=== PATIENT | male | born 1970 | race African-American/Black ===

== ENCOUNTER 2017-11-28 04:56 | Inpatient (IN) | payer MEDICARE, OTHER ==
[~2017-11-28] VITALS: Ht 182.9 cm; Wt 77.9 kg
[2017-11-28] VITALS (21 sets, daily range): BP systolic 88–109; BP diastolic 51–59; PULSE 71–79; RESP 16–22; TEMP 98.5–101.2; O2SAT 10–100
[~2017-11-28 04:56] MED LIST: Z.0.NO CURRENT MEDS
--- NOTE | 2017-11-28 05:13 | PD ---
HPI Chief Complaint: Respiratory Distress Time Seen by Provider: 05:00 Travel History International Travel<30 days: No Contact w/Intl Traveler<30days: No Traveled to known affect area: No History of Present Illness HPI The patient is a 47 year old male who presents to the [facility] [address] emergency department with a history of being noted by his halfway to be unresponsive prior to ambulance services arrival. The patient was last checked on 30 minutes prior to this and was in his normal state of health with a GCS reportedly of 15. The patient was noted to have a GCS of 3 upon ambulance services arrival with O2 saturations of 79%. The patient had pink frothy sputum noted. The patient was prepared for intubation and was given etomidate and Versed for sedation for intubation. An endotracheal tube size 8 was placed prior to arrival. The patient's airway was suctioned. The patient had copious amounts of pink frothy sputum and his nose and mouth, posterior oropharynx noted during the intubation. The patient according to ambulance services is being treated for MRSA, they are unsure of the location of the MRSA. The details regarding this patient's history are vague as the halfway staff seem to not be familiar with the patient. The patient's history will be obtained from reviewing the patient's electronic medical record and the patient' s halfway record. 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 Social History Alcohol Use: No Tobacco Use: No Substance Use: No Allergies-Medications (Allergen,Severity, Reaction): Coded Allergies: No Known Allergies (Verified Allergy, Severe, 11/03/06) Reported Meds & Prescriptions Reported Meds & Active Scripts Active Reported Zofran (Ondansetron HCl) 4 Mg Tab 4 Mg G-TUBE Q6HR PRN Zantac (Ranitidine HCl) 150 Mg Tab 75 Mg G-TUBE DAILY Vitamin D-1000 (Cholecalciferol) 1,000 Unit Tab 5,000 Units G-TUBE DAILY Vancomycin Inj (Vancomycin HCl) 1 Gram Inj 1,250 Mg IV DAILY Tylenol (Acetaminophen) 325 Mg Tab 650 Mg PO Q6H PRN Phenergan Supp (Promethazine HCl) 25 Mg Supp 25 Mg RECTAL Q4H PRN Nitrostat SL (Nitroglycerin) 0.4 Mg Subl 0.4 Mg SL DIRECTED PRN 1 tablet under the tongue as needed for chest pain. Repeat every 5 minutes for a total of 3 DOSES or call 911 if NO relief. Tramadol (Tramadol HCl) 50 Mg Tab 50 Mg G-TUBE BID PRN Sodium Bicarbonate 325 Mg Tab 325 Mg PO BIDPC Novolin R Inj (Insulin Human Regular) 1,000 Unit/10 Ml Vial 0 SQ DIRECTED Sliding Scale As Directed. Nephro-Susy (B-Complex W/ C & Folic Acid) 1 Tab 1 Tab PO DAILY Melatonin 5 Mg Tab 3 Mg PO HS Lipitor (Atorvastatin Calcium) 20 Mg Tab 20 Mg PO HS Lantus Inj (Insulin Glargine) 1,000 Unit/10 Ml Vial 10 Units SQ HS Duoneb (Ipratropium-Albuterol Neb) 0.5-2.5 Mg/3 Ml Neb 1 Nebule INH Q4HR NEB [gent. sulfate 1%] 1 Applic TOPICAL Q8HR [diff-stat capsule] 1 Cap G-TUBE BID Escitalopram (Escitalopram Oxalate) 10 Mg Tab 15 Mg PO DAILY Coreg (Carvedilol) 25 Mg Tab 25 Mg PO BID Cipro (Ciprofloxacin HCl) 250 Mg Tab 250 Mg PO BID Baclofen 10 Mg Tab 10 Mg PO DAILY Augmentin (Amoxicillin-Clavulanate) 875-125 Mg Tab 1 Tab PO BID No Current Meds (Miscellaneous Medication) Misc Review of Systems ROS Limitations: Intubated Respiratory: Positive: Shortness of Breath Neurologic: Positive: Change in Mentation Physical Exam Narrative General: The patient is a well-developed well-nourished male, unresponsive on arrival, intubated with an endotracheal tube size 8. Head and Neck exam: Head is normocephalic atraumatic. Eyes: Extraocular motion testing is unable to be accomplished in this patient who arrives with a decreased level of consciousness. Pupils are equal round and reactive to light. Nose: Midline septum with pink mucous membranes. The patient has pink frothy sputum coming out of his nose. Mouth: Dentition unremarkable. Moist mucus membranes. Posterior oropharynx is not able to be fully visualized as he has an 8 size endotracheal tube in place. Neck: No palpable lymphadenopathy. No nuchal rigidity. No thyromegaly. Cardiovascular: Regular rate and rhythm without murmurs, gallops, or rubs. No pulse deficit to the extremities on simultaneous auscultation and palpation of the radial artery. Lungs: Crackles audible in bilateral lower lung ruiz, no wheezes or rhonchi audible. The patient is being assisted with his breathing by bag valve to endotracheal tube Abdomen: Distended abdomen, no point tenderness elicited on palpation. Normal active bowel sounds are audible. The abdominal distention may be related to prior assistance with breathing prior to intubation. No guarding, rebound, or rigidity. Extremities: No clubbing, cyanosis, or edema. 2+ pulses in all 4 extremities. The patient has bandages in place on bilateral feet. These were removed and the patient is noted along the skin overlying the distal fifth metatarsal of both feet to have areas of ulceration. No active drainage noted per Neurologic Exam: The patient arrives with a GCS of 3. The patient initially has no spontaneous motor activity. The patient does not open his eyes to painful stimulation, command, or wheeze. Sensory testing is unable to be checked. The patient is noted to have contractures of the left upper and left lower extremity from his prior stroke. Skin Exam: No rash noted. Intact skin that is warm and dry. Data Data Last Documented VS Vital Signs Date Time Temp Pulse Resp B/P (MAP) Pulse Ox O2 Delivery O2 Flow Rate FiO2 11/28/17 05:29 74 16 109/56 (73) 100 Ventilator 50 11/28/17 04:57 98.5 Orders Orders Oswaldo-Gastric Tube Insert/Mon (11/28/17 05:01) Urinary Catheter Insert/Apply (11/28/17 05:01) Complete Blood Count With Diff (11/28/17 05:01) Comprehensive Metabolic Panel (11/28/17 05:01) B-Type Natriuretic Peptide (11/28/17 05:01) Act Partial Throm Time (Ptt) (11/28/17 05:01) Prothrombin Time / Inr (Pt) (11/28/17 05:01) Magnesium (Mg) (11/28/17 05:01) Ckmb (Isoenzyme) Profile (11/28/17 05:01) Troponin I (11/28/17 05:01) Arterial Blood Gas (Abg) (11/28/17 05:01) Urinalysis - C+S If Indicated (11/28/17 05:01) Blood Culture (11/28/17 05:01) Iv Access Insert/Monitor (11/28/17 05:01) Electrocardiogram (11/28/17 05:01) Ecg Monitoring (11/28/17 05:01) Oximetry (11/28/17 05:01) Oxygen Administration (11/28/17 05:01) Chest, Single Ap (11/28/17 05:01) Sodium Chloride 0.9% Flush (Ns Flush) (11/28/17 05:15) Furosemide Inj (Lasix Inj) (11/28/17 05:15) Lactic Acid Sepsis Protocol (11/28/17 05:01) Norepinephrine Inj (Levophed Inj) (11/28/17 05:30) Terbutaline Inj (Brethine Inj) (11/28/17 05:30) Cefepime Inj (Maxipime Inj) (11/28/17 05:23) Azithromycin Inj (Zithromax Inj) (11/28/17 05:23) Tobramycin Inj (Nebcin Inj) (11/28/17 05:23) Admit Order (Ed Use Only) (11/28/17 05:35) Red Blood Cells (Rbc) (11/28/17 05:35) Blood Product Administration (11/28/17 05:35) Sodium Chlor 0.9% 250 Ml Inj (Ns 250 Ml (11/28/17 05:45) CKMB (11/28/17 05:10) CKMB% (11/28/17 05:10) Labs Laboratory Tests Test 11/28/17 05:10 11/28/17 05:30 White Blood Count 6.3 TH/MM3 Red Blood Count 1.95 MIL/MM3 Hemoglobin 5.9 GM/DL Hematocrit 17.6 % Mean Corpuscular Volume 90.1 FL Mean Corpuscular Hemoglobin 30.3 PG Mean Corpuscular Hemoglobin Concent 33.6 % Red Cell Distribution Width 13.5 % Platelet Count 160 TH/MM3 Mean Platelet Volume 8.4 FL Neutrophils (%) (Auto) 80.2 % Lymphocytes (%) (Auto) 12.2 % Monocytes (%) (Auto) 7.3 % Eosinophils (%) (Auto) 0.1 % Basophils (%) (Auto) 0.2 % Neutrophils # (Auto) 5.1 TH/MM3 Lymphocytes # (Auto) 0.8 TH/MM3 Monocytes # (Auto) 0.5 TH/MM3 Eosinophils # (Auto) 0.0 TH/MM3 Basophils # (Auto) 0.0 TH/MM3 CBC Comment DIFF FINAL Differential Comment Prothrombin Time 13.4 SEC Prothromb Time International Ratio 1.3 RATIO Activated Partial Thromboplast Time 32.7 SEC Urine Color YELLOW Urine Turbidity HAZY Urine pH 5.0 Urine Specific Reynolds 1.016 Urine Protein TRACE mg/dL Urine Glucose (UA) NEG mg/dL Urine Ketones NEG mg/dL Urine Occult Blood NEG Urine Nitrite NEG Urine Bilirubin NEG Urine Urobilinogen 2.0 MG/DL Urine Leukocyte Esterase NEG Urine RBC 5 /hpf Urine WBC 3 /hpf Urine Renal Epithelial Cells <1 /hpf Urine Bacteria RARE /hpf Urine Hyaline Casts 17 /lpf Urine Granular Casts 2 /lpf Microscopic Urinalysis Comment CULT NOT INDICATED Blood Urea Nitrogen 83 MG/DL Creatinine 2.56 MG/DL Random Glucose 200 MG/DL Total Protein 7.5 GM/DL Albumin 2.6 GM/DL Calcium Level 7.7 MG/DL Magnesium Level 2.2 MG/DL Alkaline Phosphatase 93 U/L Aspartate Amino Transf (AST/SGOT) 50 U/L Alanine Aminotransferase (ALT/SGPT) 34 U/L Total Bilirubin 0.4 MG/DL Sodium Level 133 MEQ/L Potassium Level 5.0 MEQ/L Chloride Level 98 MEQ/L Carbon Dioxide Level 22.6 MEQ/L Anion Gap 12 MEQ/L Estimat Glomerular Filtration Rate 33 ML/MIN Lactic Acid Level 1.3 mmol/L Total Creatine Kinase 515 U/L Creatine Kinase MB 3.9 NG/ML Creatine Kinase MB % 0.8 % Troponin I 0.06 NG/ML B-Type Natriuretic Peptide 1390 PG/ML Blood Gas Puncture Site RT RADIAL Blood Gas Patient Temperature 98.6 Blood Gas HCO3 23 mmol/L Blood Gas Base Excess -1.1 mmol/L Blood Gas Oxygen Saturation 98 % Arterial Blood pH 7.41 Arterial Blood Partial Pressure CO2 37 mmHg Arterial Blood Partial Pressure O2 191 mmHG Arterial Blood Oxygen Content 8.4 Vol % Arterial Blood Carboxyhemoglobin 1.5 % Arterial Blood Methemoglobin 0.0 % Blood Gas Hemoglobin 5.8 G/DL Oxygen Delivery Device VENTILATOR Blood Gas Ventilator Setting Blood Gas Inspired Oxygen 70 % MDM Medical Decision Making Medical Screen Exam Complete: Yes Emergency Medical Condition: Yes Medical Record Reviewed: Yes Differential Diagnosis New onset congestive heart failure, versus MRSA pneumonia, versus healthcare acquired pneumonia, versus acute coronary syndrome, versus sepsis Narrative Course During the course of the patient's emergency department visit, the patient was placed on a registered nurse cardiac with oximetry and frequent blood pressure monitoring. The patient had IV access obtained and blood work sent for analysis. The patient had respiratory therapy available at the bedside who placed the patient on a ventilator. The patient will have an OG tube placed to gravity to decompress his abdomen. The patient will have a Dudley catheter placed to gravity. The patient's electronic medical record will be reviewed. From reviewing the halfway records, a chest x-ray reading that was done yesterday is available from his rehab facility and reveals findings suspicious for bibasilar pneumonia, cardiomegaly with bilateral small effusions reported at that time. The patient was started on Augmentin 875 mg p.o. twice daily. The patient had an EKG done on arrival that shows a sinus rhythm with an occasional supraventricular premature complex, heart rate of 76, QRS duration 79 ms, QTC [address] segment elevation, T waves are inverted in V1, V2, V3, V6. The patient had an ABG done shortly after arrival that shows a pH of 7.41, PCO2 36.7, PO2 191 with a bicarbonate 22.9 on assist control, tidal volume 550, respiratory rate 16, PEEP of 5, 70% FiO2. The patient's FiO2 was weaned down to 50%. The patient was initially provided Lasix 40 mg IV. Initially it was written for Levophed to be started to support the blood pressure as there was a concern about further fluid overload with IV fluid resuscitation, however the patient's blood pressure improved on its own to a systolic in the 1 teens. Due to the concern of a severe healthcare acquired pneumonia based on his recent chest x- ray and recently being started on Augmentin on November 26, the patient was started on broad-spectrum antibiotic coverage. The patient's laboratory and radiologic studies were reviewed and remarkable for a white count of 6.3, hemoglobin 5.9 which was compared to prior blood work at this facility, and was last 7.4 on August 21, 2017. The patient was typed and crossmatched for 2 units of packed red blood cells with potentially 1 unit of packed red blood cells being started in the emergency department. Chemistry shows a sodium of 133, BUN 83, creatinine 2.56 with a prior history of renal insufficiency with his last BUN 52, creatinine 2.14, glucose 200, AST 50, CPK 515 with an MB percent of 0.8, troponin I is slightly elevated at 0.06, BNP is 1390, lactic acid 1.3. PT 13.4, INR 1.3, PTT 32.7. Urinalysis is unremarkable. A CT scan of the brain shows no acute hemorrhage or mass-effect, large area of encephalomalacia involving the right frontal and parietal lobe, chronic sinusitis. The chest x-ray reveals an endotracheal tube in [place] an orogastric tube that is in place, mildly rotated exam with bilateral hazy perihilar and bibasilar opacities which may represent pulmonary edema, mild cardiomegaly. The patient's results were discussed with the patient, including the plan of care. I explained that further testing and/ or monitoring is indicated based on the patient's history, examination, and/ or laboratory findings. Therefore, I recommended admission for additional evaluation. The patient expressed understanding and was agreeable with this plan. The patient was admitted to the hospital in critical condition and sent to a bed under the care of the manager training service. Critical Care Narrative Aggregate critical care time was 38 minutes. Time to perform other separately billable procedures was not included in the critical care time. My time did not include minutes spent treating any other patients simultaneously or on activities that did not directly contribute to the patient's treatment. The services I provided to this patient were to treat and/or prevent clinically significant deterioration that could result in: Hypoxic brain injury, versus cardiovascular collapse I provided critical care services requiring my management, as noted below: Chart data review, documentation time, medication orders and management, vital sign assessments/reviewing monitor data, ordering and reviewing lab tests, ordering and interpreting/reviewing x-rays and diagnostic studies, care of the patient and discussion of the patient with the admitting physicians. Physician Communication Physician Communication The patient's case including history, pertinent physical examination findings, and laboratory studies were discussed with Dr. Huerta, Dr. Eagle. It was agreed that the patient would be admitted to the manager training service. Diagnosis Primary Impression: Respiratory failure Qualified Codes: J96.01 - Acute respiratory failure with hypoxia Additional Impressions: Pulmonary edema Qualified Codes: J81.0 - Acute pulmonary edema Renal insufficiency Elevated troponin Admitting Information Admitting Physician Requests: Admit Marixa Ayala MD November 28, 2017 05:13
[2017-11-28] MEDS ORDERED: FUROSEMIDE 40 MG/4 ML VIAL IVP ONE (05:15)
[2017-11-28] MEDS ORDERED: SODIUM CHLORIDE 0.9% FLUSH 10 ML FLUSH IVF PRN (05:15)
[2017-11-28] MEDS ORDERED: LANTUS2P SQ (05:21)
[2017-11-28] MEDS ORDERED: IPRASOL INH (05:21)
[2017-11-28] MEDS ORDERED: SODI325T PO (05:21)
[2017-11-28] MEDS ORDERED: ZANT150T2 G-TUBE (05:21)
[2017-11-28] MEDS ORDERED: MELA5 PO (05:21)
[2017-11-28] MEDS ORDERED: ESCI10TA PO (05:21)
[2017-11-28] MEDS ORDERED: NOVORP2 SQ (05:21)
[2017-11-28] MEDS ORDERED: ZOFR4TAB G-TUBE (05:21)
[2017-11-28] MEDS ORDERED: LIPI20TA PO (05:21)
[2017-11-28] MEDS ORDERED: TRAM50TA G-TUBE (05:21)
[2017-11-28] MEDS ORDERED: CIPR250T52 PO (05:21)
[2017-11-28] MEDS ORDERED: NEPHTAB3 PO (05:21)
[2017-11-28] MEDS ORDERED: VITA1000 G-TUBE (05:21)
[2017-11-28] MEDS ORDERED: AUGM875T3 PO (05:21)
[2017-11-28] MEDS ORDERED: TYLE325T PO (05:21)
[2017-11-28] MEDS ORDERED: PROM1SUP7 RECTAL (05:21)
[2017-11-28] MEDS ORDERED: [UNRECOGNIZED DRUG - OTHER] TOPICAL (05:21)
[2017-11-28] MEDS ORDERED: [UNRECOGNIZED DRUG - OTHER] G-TUBE (05:21)
[2017-11-28] MEDS ORDERED: NITR0.4S SL (05:21)
[2017-11-28] MEDS ORDERED: VANC1000P IV (05:21)
[2017-11-28] MEDS ORDERED: CORE25TA PO (05:21)
[2017-11-28] MEDS ORDERED: BACL10TA PO (05:21)
[2017-11-28] MEDS: TOBRAMYCIN IV STA ×2 (05:23→05:46)
[2017-11-28] MEDS ORDERED: AZITHROMYCIN INJ 500 MG in SODIUM CHLOR 0.9% 250 ML INJ 250 ML IV STA (05:23)
[2017-11-28] MEDS ORDERED: CEFEPIME INJ 2,000 MG in SODIUM CHLORIDE 0.9% INJ 100 ML IV STA (05:23)
[2017-11-28] MEDS: SODIUM CHLORIDE 0.9% IV STA ×2 (05:23→05:46)
[2017-11-28 05:28] LABS: AUTOMATED NEUTROPHIL # 5.1 TH/MM3 (1.8-7.7); BASOPHIL % 0.2 % (0.0-2.0); EOSINOPHIL % 0.1 % (0.0-4.0); LYMPH % 12.2 % (9.0-44.0); LYMPHOCYTE # 0.8 TH/MM3 (1.0-4.8); MEAN CELL VOLUME 90.1 FL (80.0-100.0); MEAN CORPUSCULAR HEMOGLOBIN 30.3 PG (27.0-34.0); MEAN CORPUSCULAR HGB CONC 33.6 % (32.0-36.0); MEAN PLATELET VOLUME 8.4 FL (7.0-11.0); MONO % 7.3 % (0.0-8.0); MONOCYTE # 0.5 TH/MM3 (0-0.9); NEUT % 80.2 % (16.0-70.0); PLATELET COUNT 160 TH/MM3 (150-450); RED BLOOD COUNT 1.95 MIL/MM3 (4.50-5.90); RED CELL DISTRIBUTION WIDTH 13.5 % (11.6-17.2); WHITE BLOOD COUNT 6.3 TH/MM3 (4.0-11.0)
[2017-11-28] MEDS ORDERED: TERBUTALINE INJ 1 MG/ML AMP SQ PRN (05:30)
[2017-11-28] MEDS ORDERED: NOREPINEPHRINE INJ 4 MG in SODIUM CHLOR 0.9% 250 ML INJ 246 ML IV PRN (05:30)
[2017-11-28 05:32] LABS: HEMATOCRIT 17.6 % (39.0-51.0); HEMOGLOBIN 5.9 GM/DL (13.0-17.0)
[2017-11-28 05:35] LABS: BACTERIA, URINE RARE /hpf; BILIRUBIN, URINE NEG (NEG); BLOOD, URINE NEG (NEG); GLUCOSE,URINE NEG (NEG); HYALINE CAST, URINE 17 /lpf (RARE); KETONE, URINE NEG (NEG); NITRITE,URINE NEG (NEG); RENAL EPITHELIAL CELLS <1 /hpf; URINE COLOR YELLOW (YELLW/STRAW); URINE LEUKOCYTE ESTERASE NEG (NEG)
[2017-11-28] MEDS ORDERED: SODIUM CHLOR 0.9% 1000 ML INJ 1,000 ML IV SCH (05:39)
[2017-11-28 05:43] LABS: INTERNATIONAL NORMALIZED RATIO 1.3 RATIO; PROTHROMBIN TIME - PATIENT 13.4 SEC (9.8-11.6)
[2017-11-28] MEDS ORDERED: BISACODYL 10 MG SUPP RECTAL PRN (05:45)
[2017-11-28] MEDS ORDERED: SODIUM CHLOR 0.9% 250 ML INJ 250 ML IV ONE (05:45)
[2017-11-28] MEDS ORDERED: CHLORHEXIDINE GLUCONATE 2 % 1 PACK (2 CLOTHS) TOP PRN (05:45)
[2017-11-28] MEDS ORDERED: NURSING INFORMATION XX SCH (05:45)
[2017-11-28] MEDS ORDERED: LACTULOSE SYRUP 20 GM/30 ML CUP PO PRN (05:45)
[2017-11-28] MEDS ORDERED: SODIUM CHLORIDE 0.9% FLUSH 10 ML FLUSH IV FLUSH PRN (05:45)
[2017-11-28] MEDS ORDERED: MAGNESIUM HYDROXIDE SUSP 30 ML CUP PO PRN (05:45)
[2017-11-28] MEDS ORDERED: SENNOSIDES 8.6 MG TAB PO PRN (05:45)
[2017-11-28 05:48] LABS: ALBUMIN 2.6 GM/DL (3.4-5.0); AST (GOT) 50 U/L (15-37); BICARBONATE 22.6 MEQ/L (21.0-32.0); BLOOD UREA NITROGEN 83 MG/DL (7-18); CALCIUM 7.7 MG/DL (8.5-10.1); CHLORIDE 98 MEQ/L (98-107); CREATININE 2.56 MG/DL (0.60-1.30); GLOMERULAR FILTRATION RATE 33 ML/MIN (>89); GLUCOSE,RANDOM 200 MG/DL (74-106); MAGNESIUM 2.2 MG/DL (1.5-2.5); SODIUM (NA) 133 MEQ/L (136-145)
[2017-11-28 05:49] LABS: ALT (GPT) 34 U/L (12-78)
[2017-11-28 05:53] LABS: ALKALINE PHOSPHATASE 93 U/L (45-117); TOTAL BILIRUBIN ADULT 0.4 MG/DL (0.2-1.0); TOTAL PROTEIN 7.5 GM/DL (6.4-8.2); TROPONIN I 0.06 NG/ML (0.02-0.05)
--- NOTE | 2017-11-28 06:01 | RADRPT ---
EXAM DATE: 11/28/2017 5:36 AM EDT AGE/SEX: 47 years / Male INDICATIONS: Post intubation, short of breath. CLINICAL DATA: This is the patient's initial encounter. Patient reports that signs and symptoms have been present for 1 day and indicates a pain score of Nonresponsive. MEDICAL/SURGICAL HISTORY: Non-responsive. CABG. COMPARISON: No prior [facility] exams available for comparison. FINDINGS: A single AP semierect view of the chest was obtained. The patient is mildly rotated to the left. The patient is status post median sternotomy and the upper sternal wire is broken. An endotracheal tube i s present with the tip approximately 2 cm above the luz maria. A nasogastric tube is seen coursing throu gh the esophagus into the stomach. There is a right-sided PICC line in place. The heart size is mildl y prominent. Hazy perihilar and bibasilar opacities are present. There are atherosclerotic changes in the aorta. The bony structures are intact. CONCLUSION: 1. Endotracheal tube and nasogastric tube in place. 2. Mildly rotated exam with bilateral hazy perihilar and bibasilar opacities which may represent pul monary edema. 3. Mild cardiomegaly. Electronically signed by: Garland Eden MD 11/28/2017 5:59 AM EDT
[2017-11-28] MEDS ORDERED: FUROSEMIDE 100 MG/10 ML VIAL IV PUSH STA (06:10)
[2017-11-28] MEDS ORDERED: DEXTROSE 50% IN WATER 50 ML VIAL(D50) IV PUSH PRN (06:15)
--- NOTE | 2017-11-28 06:24 | HHI.HP ---
HPI Service Critical Care Medicine Primary Care Physician Unknown Admission Diagnosis Respiratory Failure, Anemia Diagnosis: Chief Complaint: altered mental status Travel History International Travel<30 Days: No Contact w/Intl Traveler <30 Da: No Traveled to Known Affected Are: No History of Present Illness This is a 47-year-old male with a history of prior stroke who [facility] for acute altered mental status. Per EMS reports, he was in his normal state of health last night and then with his reevaluated by the nursing staff and was a GCS of 3 with room air sats of 79%. Of note by the ED physician, the patient had pink frothy sputum on admission to the ER. He was emergently intubated by the emergency department. He has a chest x-ray which demonstrates bilateral infiltrates consistent with pulmonary edema. He has a BNP which is severely elevated at 1300. He has a elevated creatinine suggestive of acute kidney injury with an unknown baseline. Per report he has been treated for an MRSA skin infection. He is afebrile with a normal white count. Critical care medicine is consulted to evaluate manage his acute encephalopathy, multiorgan dysfunction. No additional information is available from the patient due to his severe encephalopathy. 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 Patient does have evidence of a prior sternotomy with a healed midline chest scar and a feeding tube placement. Reported Medications Zofran (Ondansetron HCl) 4 Mg Tab 4 Mg G-TUBE Q6HR PRN Zantac (Ranitidine HCl) 150 Mg Tab 75 Mg G-TUBE DAILY Vitamin D-1000 (Cholecalciferol) 1,000 Unit Tab 5,000 Units G-TUBE DAILY Vancomycin Inj (Vancomycin HCl) 1 Gram Inj 1,250 Mg IV DAILY Tylenol (Acetaminophen) 325 Mg Tab 650 Mg PO Q6H PRN Phenergan Supp (Promethazine HCl) 25 Mg Supp 25 Mg RECTAL Q4H PRN Nitrostat SL (Nitroglycerin) 0.4 Mg Subl 0.4 Mg SL DIRECTED PRN 1 tablet under the tongue as needed for chest pain. Repeat every 5 minutes for a total of 3 DOSES or call 911 if NO relief. Tramadol (Tramadol HCl) 50 Mg Tab 50 Mg G-TUBE BID PRN Sodium Bicarbonate 325 Mg Tab 325 Mg PO BIDPC Novolin R Inj (Insulin Human Regular) 1,000 Unit/10 Ml Vial 0 SQ DIRECTED Sliding Scale As Directed. Nephro-Susy (B-Complex W/ C & Folic Acid) 1 Tab 1 Tab PO DAILY Melatonin 5 Mg Tab 3 Mg PO HS Lipitor (Atorvastatin Calcium) 20 Mg Tab 20 Mg PO HS Lantus Inj (Insulin Glargine) 1,000 Unit/10 Ml Vial 10 Units SQ HS Duoneb (Ipratropium-Albuterol Neb) 0.5-2.5 Mg/3 Ml Neb 1 Nebule INH Q4HR NEB [gent. sulfate 1%] 1 Applic TOPICAL Q8HR [diff-stat capsule] 1 Cap G-TUBE BID Escitalopram (Escitalopram Oxalate) 10 Mg Tab 15 Mg PO DAILY Coreg (Carvedilol) 25 Mg Tab 25 Mg PO BID Cipro (Ciprofloxacin HCl) 250 Mg Tab 250 Mg PO BID Baclofen 10 Mg Tab 10 Mg PO DAILY Augmentin (Amoxicillin-Clavulanate) 875-125 Mg Tab 1 Tab PO BID No Current Meds (Miscellaneous Medication) Misc Active Ordered Medications See MAR Family History Unknown and unobtainable secondary to the clinical condition of the patient Social History No EtOH, tobacco, or other drugs her prior medical records. Physical Exam Vital Signs Vital Signs Date Time Temp Pulse Resp B/P (MAP) Pulse Ox O2 Delivery O2 Flow Rate FiO2 11/28/17 05:41 100 50 11/28/17 05:29 74 16 109/56 (73) 100 Ventilator 50 11/28/17 05:26 100 Auto-Vent 50 11/28/17 05:04 75 16 100 Auto-Vent 50 11/28/17 05:02 50 11/28/17 04:57 98.5 76 16 90/57 (68) 100 11/28/17 04:56 100 70 Physical Exam GENERAL: Middle-age male who appears much older than stated age, lying in bed, intubated, unresponsive, comatose HEENT: Normocephalic. Atraumatic. Pupils equal, round, reactive, conjugate. Mucous membranes are moist NECK: Trachea is midline. Positive JVD above the level of mandible CHEST: Intubated with an 8.0 ET tube. Equal chest rise. PRVC. 40% FiO2 CARDIOVASCULAR: Normal rate, regular rhythm. Appears sinus by telemetry. ABDOMEN: Soft, nontender, nondistended. No guarding. MUSCULOSKELETAL: Pulses 2+. 2+ peripheral edema. NEUROLOGICAL: GCS 5. Weakly withdraws to pain. Positive corneals. Positive cough. Positive gag. Does not follow commands. RASS -4. Laboratory Laboratory Tests Test 11/28/17 05:10 11/28/17 05:30 White Blood Count 6.3 Red Blood Count 1.95 Hemoglobin 5.9 Hematocrit 17.6 Mean Corpuscular Volume 90.1 Mean Corpuscular Hemoglobin 30.3 Mean Corpuscular Hemoglobin Concent 33.6 Red Cell Distribution Width 13.5 Platelet Count 160 Mean Platelet Volume 8.4 Neutrophils (%) (Auto) 80.2 Lymphocytes (%) (Auto) 12.2 Monocytes (%) (Auto) 7.3 Eosinophils (%) (Auto) 0.1 Basophils (%) (Auto) 0.2 Neutrophils # (Auto) 5.1 Lymphocytes # (Auto) 0.8 Monocytes # (Auto) 0.5 Eosinophils # (Auto) 0.0 Basophils # (Auto) 0.0 CBC Comment DIFF FINAL Differential Comment Prothrombin Time 13.4 Prothromb Time International Ratio 1.3 Activated Partial Thromboplast Time 32.7 Urine Color YELLOW Urine Turbidity HAZY Urine pH 5.0 Urine Specific Commerce 1.016 Urine Protein TRACE Urine Glucose (UA) NEG Urine Ketones NEG Urine Occult Blood NEG Urine Nitrite NEG Urine Bilirubin NEG Urine Urobilinogen 2.0 Urine Leukocyte Esterase NEG Urine RBC 5 Urine WBC 3 Urine Renal Epithelial Cells <1 Urine Bacteria RARE Urine Hyaline Casts 17 Urine Granular Casts 2 Microscopic Urinalysis Comment CULT NOT INDICATED Blood Urea Nitrogen 83 Creatinine 2.56 Random Glucose 200 Total Protein 7.5 Albumin 2.6 Calcium Level 7.7 Magnesium Level 2.2 Alkaline Phosphatase 93 Aspartate Amino Transf (AST/SGOT) 50 Alanine Aminotransferase (ALT/SGPT) 34 Total Bilirubin 0.4 Sodium Level 133 Potassium Level 5.0 Chloride Level 98 Carbon Dioxide Level 22.6 Anion Gap 12 Estimat Glomerular Filtration Rate 33 Lactic Acid Level 1.3 Total Creatine Kinase 515 Creatine Kinase MB 3.9 Creatine Kinase MB % 0.8 Troponin I 0.06 B-Type Natriuretic Peptide 1390 Blood Gas Puncture Site RT RADIAL Blood Gas Patient Temperature 98.6 Blood Gas HCO3 23 Blood Gas Base Excess -1.1 Blood Gas Oxygen Saturation 98 Arterial Blood pH 7.41 Arterial Blood Partial Pressure CO2 37 Arterial Blood Partial Pressure O2 191 Arterial Blood Oxygen Content 8.4 Arterial Blood Carboxyhemoglobin 1.5 Arterial Blood Methemoglobin 0.0 Blood Gas Hemoglobin 5.8 Oxygen Delivery Device VENTILATOR Blood Gas Ventilator Setting Blood Gas Inspired Oxygen 70 Date/Time Source Procedure Growth Status 11/28/17 05:10 Blood Peripheral Aerobic Blood Culture Pending Received 11/28/17 05:10 Blood Peripheral Anaerobic Blood Culture Pending Received 11/28/17 05:10 Urine Random Urine Urine Culture Pending Received Result Diagram: 11/28/17 0510 11/28/[address] 11/28: Negative for acute disease Chest x-ray 11/28: Bilateral diffuse infiltrates consistent with pulmonary edema Septic Shock Reassessment Septic shock perfusion: reassessment completed Caprini VTE Risk Assessment Caprini VTE Risk Assessment: Mod/High Risk (score >= 2) Caprini Risk Assessment Model Point Value = 1 Point Value = 2 Point Value = 3 Point Value = 5 Age 41-60 Minor surgery BMI > 25 kg/m2 Swollen legs Varicose veins or History of unexplained or recurrent spontaneous Oral contraceptives or hormone replacement Sepsis (< 1 month) Serious lung disease, including pneumonia (< 1 month) Abnormal pulmonary function Acute myocardial infarction Congestive heart failure (< 1 month) History of inflammatory bowel disease Medical patient at bed rest Age 61-74 Arthroscopic surgery Major open surgery (> 45 min) Laparoscopic surgery (> 45 min) Malignancy Confined to bed (> 72 hours) Immobilizing plaster cast Central venous access Age >= 75 History of VTE Family history of VTE Factor V Leiden Prothrombin [id number] Lupus anticoagulant Anticardiolipin antibodies Elevated serum homocysteine Heparin-induced thrombocytopenia Other congenital or acquired thrombophilia Stroke (< 1 month) Elective arthroplasty Hip, pelvis, or leg fracture Acute spinal cord injury (< 1 month) Prophylaxis Regimen Total Risk Factor Score Risk Level Prophylaxis Regimen 0-1 Low Early ambulation 2 Moderate Order ONE of the following: *Sequential Compression Device (SCD) *Heparin 5000 units SQ BID 3-4 Higher Order ONE of the following medications: *Heparin 5000 units SQ TID *Enoxaparin/Lovenox 40 mg SQ daily (WT < 150 kg, CrCl > 30 mL/min) *Enoxaparin/Lovenox 30 mg SQ daily (WT < 150 kg, CrCl > 10-29 mL/min) *Enoxaparin/Lovenox 30 mg SQ BID (WT < 150 kg, CrCl > 30 mL/min) AND/OR *Sequential Compression Device (SCD) 5 or more Highest Order ONE of the following medications: *Heparin 5000 units SQ TID (Preferred with Epidurals) *Enoxaparin/Lovenox 40 mg SQ daily (WT < 150 kg, CrCl > 30 mL/min) *Enoxaparin/Lovenox 30 mg SQ daily (WT < 150 kg, CrCl > 10-29 mL/min) *Enoxaparin/Lovenox 30 mg SQ BID (WT < 150 kg, CrCl > 30 mL/min) AND *Sequential Compression Device (SCD) Assessment and Plan Assessment and Plan Assessment: 47-year-old male with prior stroke who presents with severe acute congestive heart failure exacerbation, unknown type, with associated acute hypoxic and hypercarbic respiratory failure, acute metabolic encephalopathy, acute kidney injury. Remains critically ill. Admit to ICU. Will check pro- calcitonin and if normal we will not cover with empiric antibiotics as this appears to be isolated to his heart failure. Will order renal ultrasound to rule out obstructive uropathy. Frequent neurochecks. EEG, head CT, MRI. Avoid long-acting sedatives. Plan by systems: Neurologic: Acute metabolic encephalopathy History of prior CVA CT head MRI EEG Frequent neurochecks Avoid long-acting sedatives Propofol for goal RASS -2 Tox screen UDS Tylenol, aspirin, EtOH levels Respiratory: Acute hypoxic and hypercarbic respiratory failure Severe acute pulmonary edema Vent bundle Head of bed elevated Nebs No spontaneous breathing trial until mental status improves Wean FiO2 for goal SPO2 greater than 90% Lasix 80 mg IV 1 Goal net -2 L in 24 hours Cardiovascular: Acute severe congestive heart failure exacerbation, unknown type Elevated troponin/type II NSTEMI secondary to demand ischemia Lasix as above 2D echo Trend troponins Would ideally like to heparinize the patient given his altered mental status and we cannot tell whether or not this is acute coronary syndrome, however patient has severe anemia with a hemoglobin of 5.9 and until we can rule out ongoing blood loss, we will hold off on heparinizing the patient. Hold off on aspirin given severe anemia Renal: Acute kidney injury superimposed on chronic renal insufficiency with an unknown baseline Likely secondary to venous congestion from CHF Place Dudley Diuresis as above Renal ultrasound Urine electrolytes Urine eosinophils -- Strict I/Os FEN/GI: Acute intravascular volume overload N.p.o. Place OG tube to suction Diuresis as above Heme/ID: Severe anemia, unknown etiology 1 unit PRBCs May be secondary to volume overload and chronic renal insufficiency Holding anticoagulation until etiology is determined Iron studies Follow-up H&H Daily CBC Send pro calcitonin No infectious etiology suspected this time. If pro-calcitonin is normal will not cover with empiric antibiotics Send cultures Endocrine: Hyperglycemia of critical illness Diabetes -- SSI Prophylaxis: GI Prophylaxis IV twice daily PPI DVT Prophylaxis -- SCDs Holding pharmacologic DVT prophylaxis in the setting of severe anemia Lines: Peripheral IVs Dudley Dispo: Admit to ICU. Very critically ill. This patient remains critically ill with one or more organ systems which are or may become a threat to life. I have spent in excess of 63 minutes discontinuously in the care and management of this patient. This time is exclusive of procedures, and includes, but is not limited to, evaluation of the patient, review of the medical record, discussions with family, consultants, nursing staff, or respiratory therapy, and documentation in the medical record. Chandana Eagle MD November 28, 2017 06:24
--- NOTE | 2017-11-28 06:59 | RADRPT ---
EXAM DATE: 11/28/2017 6:53 AM EDT AGE/SEX: 47 years / Male INDICATIONS: Altered mental status. CLINICAL DATA: This is the patient's initial encounter. Patient reports that signs and symptoms have been present for 1 day and indicates a pain score of Nonresponsive. MEDICAL/SURGICAL HISTORY: Non-responsive. Non-responsive. RADIATION DOSE: 56.35 CTDI (mGy) COMPARISON: No prior [facility] exams available for comparison. TECHNIQUE: CT of the head without contrast. Using automated exposure control and adjustment of the mA and/or kV according to patient size, radiation dose was kept as low as reasonably achievable to ob tain optimal diagnostic quality images. FINDINGS: Cerebrum: Moderate atrophic changes noted with sulcal and ventricular prominence. There are multiple calcifications in the basal ganglia and frontal lobes.. There is a focal area of encephalomalacia in volving the white matter of the right frontal and parietal lobes. No evidence of midline shift, mass lesion, hemorrhage or acute infarction. No extraaxial fluid collections are seen. Posterior Fossa: The cerebellum and brainstem are intact. The 4th ventricle is midline. The cerebe llopontine angle is unremarkable. Extracranial: The visualized portion of the orbits is intact. Skull: The calvaria is intact. No evidence of skull fracture. The right maxillary sinus is complete ly opacified. There is near complete opacification of the right ethmoidal air cells as well. Post Contrast: No abnormal areas of parenchymal or dural enhancement. No evidence of blood-brain ba rrier breakdown. CONCLUSION: 1. No acute hemorrhage or mass effect. 2. Large area of encephalomalacia involving the right frontal and parietal lobe. 3. Chronic sinusitis. Electronically signed by: Garland Eden MD 11/28/2017 6:57 AM EDT
--- NOTE | 2017-11-28 08:37 | RADRPT ---
EXAM DATE: 11/28/2017 8:28 AM EDT AGE/SEX: 47 years / Male INDICATIONS: Obstruction. CLINICAL DATA: This is the patient's initial encounter. Patient reports that signs and symptoms have been present for 1 day and indicates a pain score of Nonresponsive. MEDICAL/SURGICAL HISTORY: Hypercholesterolemia. Hypertension. Hiatal hernia. Chest pain. Bernice betes. . G-tube. COMPARISON: No prior [facility] exams available for comparison. No external comparison. MEASUREMENTS: Right Kidney:__ 9.7 x 6.1 x 4.7 cm cm Left Kidney:__ 10.2 x 6.0 x 6.3 cm cm FINDINGS: Right Kidney: Diffusely increased cortical echogenicity. No hydronephrosis, focal mass or stone. Left Kidney: Diffusely increased cortical echogenicity. No hydronephrosis, focal mass or stone. Bladder: Decompressed secondary to Dudley catheter with minimal residual distention. CONCLUSION: 1. Echogenic kidneys consistent with medical renal disease. 2. No obstructive uropathy. Electronically signed by: Alan Young MD 11/28/2017 8:35 AM EDT
[2017-11-28] MEDS: SODIUM CHLORIDE 0.9% FLUSH 10 ML FLUSH IV FLUSH SCH ×2 (08:50→21:03)
[2017-11-28] MEDS: DOCUSATE SODIUM 50 MG/SENNA 8.6 MG TAB PO SCH ×2 (08:50→21:00)
[2017-11-28] MEDS ORDERED: FAMOTIDINE 20 MG/2 ML VIAL IV PUSH SCH ×2 (09:00→21:00)
[2017-11-28] MEDS ORDERED: CHLOROTHIAZIDE SOD 500 MG VIAL IV ONE (09:00)
[2017-11-28 10:41] LABS: ACETAMINOPHEN LESS THAN 2.0 MCG/ML (10.0-30.0)
[2017-11-28] MEDS: RESP: ALBUTEROL 2.5 MG/IPRATROPIUM 0.5 MG NEB (PRN) INH (11:51)
[2017-11-28] MEDS: INSULIN NovoLIN REGULAR SUPPLEMENTAL SCALE SQ SCH ×2 (12:00→18:00)
[2017-11-28] MEDS: ACETAMINOPHEN 325 MG TAB PO PRN (12:14)
[2017-11-28] MEDS: PANTOPRAZOLE SODIUM 40 MG VIAL IV PUSH SCH (12:15)
[2017-11-28 12:20] LABS: CREATININE, RANDOM URINE 35.7 MG/DL
[2017-11-28] MEDS: ARTIFICIAL TEARS OPTH SOLN 15 ML BTL EACH EYE SCH ×3 (13:08→21:03)
[2017-11-28] MEDS ORDERED: PROPOFOL 500 MG/50 ML INJ 50 ML ONE (14:08)
--- NOTE | 2017-11-28 14:35 | EKG ---
Date Performed: 11/28/2017 Time Performed: 05:17:58 PTAGE: 47 years EKG: Baseline artifact present Sinus rhythm WITH OCCASIONAL SUPRAVENTRICULAR PREMATURE COMPLEXES Nonspecific T wave changes ABNORMAL ECG Compare d to prior electrocardiogram, Nonspecific T wave changes are now present . DOCTOR: Esteban Bland Interpretating Date/Time 11/28/2017 14:32:55
[2017-11-28] MEDS: PROPOFOL 1000 MG/100 ML IV PRN ×3 (15:25→23:54)
[2017-11-28 17:33] LABS: HEMATOCRIT 18.6 % (39.0-51.0); HEMOGLOBIN 6.4 GM/DL (13.0-17.0)
--- NOTE | 2017-11-28 18:13 | RADRPT ---
EXAM DATE: 11/28/2017 6:00 PM EDT AGE/SEX: 47 years / Male INDICATIONS: Altered mental status. CLINICAL DATA: This is the patient's subsequent encounter. Patient reports that signs and symptoms h ave been present for 2 days and indicates a pain score of Nonresponsive. MEDICAL/SURGICAL HISTORY: Diabetes mellitus type II. Hypercholesterolemia. Hypertension. str jamel CABG. feeding tube, hernia COMPARISON: [facility] [place] BRAIN W/O CONTRAST, 11/28/2017. . TECHNIQUE: Multiplanar, multisequence examination of the brain was performed without contrast. FINDINGS: Cerebrum: Again noted is a large area of encephalomalacia in the medial right frontoparietal high con vexities extending to the vertex with surrounding gliosis. Mild associated ex vacuo dilatation of the right lateral ventricle. No evidence of midline shift, mass lesion, hemorrhage or acute infarction. No extraaxial fluid collections are seen. The pituitary gland and suprasellar cistern are normal in configuration. White Matter: No significant signal abnormalities are seen in the white matter. Posterior Fossa: The cerebellum and brainstem are intact. The 4th ventricle is midline. The cerebel lopontine angle is unremarkable. The cerebellar tonsils are normal in position. Diffusion Imaging: No focal areas of restricted diffusion are seen. No evidence of acute infarction . Extracranial: The visualized portions of the orbits are unremarkable. Near-complete opacification of the right frontal and maxillary sinuses with mucoperiosteal thickening involving the sphenoid and le ft maxillary sinus. CONCLUSION: 1. Large area of encephalomalacia in the right medial frontal parietal high convexities extending to the vertex. 2. No evidence for acute abnormality. Specifically, no acute infarction, hemorrhage or hydrocephalus . 3. Paranasal sinus mucosal disease. Electronically signed by: Alan Young MD 11/28/2017 6:11 PM EDT
[2017-11-28 23:01] LABS: HEMATOCRIT 22.7 % (39.0-51.0); HEMOGLOBIN 7.6 GM/DL (13.0-17.0)
[2017-11-28 23:19] LABS: IRON (FE) 11 MCG/DL (65-175)
[2017-11-28 23:44] LABS: % SATURATION IRON PROFILE 5.3 % (20-50); FERRITIN 577 NG/ML (26-388); TOTAL IRON BINDING CAPACITY 209 MCG/DL (250-450)
[2017-11-28 23:55] LABS: FOLATE GREATER THAN 20.0 NG/ML (3.1-17.5)
[2017-11-29] VITALS (19 sets, daily range): BP systolic 97–126; BP diastolic 56–63; PULSE 63–79; RESP 14–26; TEMP 97.8–99.8; O2SAT 94–100
[2017-11-29] MEDS: PANTOPRAZOLE SODIUM 40 MG VIAL IV PUSH SCH ×2 (00:38→13:01)
[2017-11-29] MEDS: CHLORHEXIDINE GLUCONATE 2 % 1 PACK (2 CLOTHS) TOP SCH (04:00)
[2017-11-29] MEDS: PROPOFOL 1000 MG/100 ML IV PRN ×4 (04:20→23:13)
[2017-11-29 04:25] LABS: HEMATOCRIT 23.1 % (39.0-51.0); HEMOGLOBIN 7.8 GM/DL (13.0-17.0); MEAN CELL VOLUME 88.2 FL (80.0-100.0); PLATELET COUNT 155 TH/MM3 (150-450); RED BLOOD COUNT 2.62 MIL/MM3 (4.50-5.90); WHITE BLOOD COUNT 5.2 TH/MM3 (4.0-11.0)
[2017-11-29 04:27] LABS: AUTOMATED NEUTROPHIL # 3.7 TH/MM3 (1.8-7.7); BASOPHIL % 0.4 % (0.0-2.0); EOSINOPHIL % 0.2 % (0.0-4.0); HEMATOCRIT 22.7 % (39.0-51.0); HEMOGLOBIN 7.9 GM/DL (13.0-17.0); LYMPH % 18.4 % (9.0-44.0); LYMPHOCYTE # 0.9 TH/MM3 (1.0-4.8); MEAN CELL VOLUME 87.6 FL (80.0-100.0); MEAN CORPUSCULAR HEMOGLOBIN 30.5 PG (27.0-34.0); MEAN CORPUSCULAR HGB CONC 34.9 % (32.0-36.0); MONO % 8.1 % (0.0-8.0); MONOCYTE # 0.4 TH/MM3 (0-0.9); NEUT % 72.9 % (16.0-70.0); PLATELET COUNT 147 TH/MM3 (150-450); RED BLOOD COUNT 2.59 MIL/MM3 (4.50-5.90); WHITE BLOOD COUNT 5.1 TH/MM3 (4.0-11.0)
[2017-11-29 04:39] LABS: INTERNATIONAL NORMALIZED RATIO 1.3 RATIO; PROTHROMBIN TIME - PATIENT 12.7 SEC (9.8-11.6)
[2017-11-29 04:54] LABS: ALBUMIN 2.5 GM/DL (3.4-5.0); ALKALINE PHOSPHATASE 79 U/L (45-117); ALT (GPT) 38 U/L (12-78); AST (GOT) 77 U/L (15-37); BICARBONATE 22.5 MEQ/L (21.0-32.0); BLOOD UREA NITROGEN 92 MG/DL (7-18); CALCIUM 7.7 MG/DL (8.5-10.1); CHLORIDE 101 MEQ/L (98-107); CREATININE 2.53 MG/DL (0.60-1.30); GLOMERULAR FILTRATION RATE 33 ML/MIN (>89); GLUCOSE,RANDOM 74 MG/DL (74-106); MAGNESIUM 2.4 MG/DL (1.5-2.5); SODIUM (NA) 137 MEQ/L (136-145); TOTAL BILIRUBIN ADULT 0.7 MG/DL (0.2-1.0); TOTAL PROTEIN 7.5 GM/DL (6.4-8.2)
[2017-11-29] MEDS: INSULIN NovoLIN REGULAR SUPPLEMENTAL SCALE SQ SCH ×4 (05:42→17:21)
--- NOTE | 2017-11-29 08:07 | MG ---
cc: Doroteo Pérez MD EEG NUMBER: [id number] INDICATIONS: Encephalomalacia right frontal and parietal region. Dysphagia. MEDICATIONS: Norepinephrine. DESCRIPTION: The recording showed a diffuse 5-6 Hz, 60 microvolt rhythm. I do not see any focal right or left hemisphere abnormalities. No epileptiform or seizure activity is noted. Photic stimulation is performed without significant posterior driving. Evidently intubated. A right arm twitch was seen, but did not correlate with any abnormalities. IMPRESSION: Diffuse theta slowing consistent with a moderate diffuse encephalopathy, but no focal abnormality was noted. No seizure activity was seen. Doroteo Pérez MD DJM/DL , 07:57 AM , 08:06 AM
[2017-11-29] MEDS: RESP: ALBUTEROL 2.5 MG/IPRATROPIUM 0.5 MG NEB (PRN) INH (08:16)
--- NOTE | 2017-11-29 08:30 | HHI.CCPN ---
Subjective Remarks/Hospital Course This is a 47-year-old male with a history of prior stroke who presented from [facility] facility by EMS for acute altered mental status. Per EMS reports, he was in his normal state of health last night and then with his reevaluated by the nursing staff and was a GCS of 3 with room air sats of 79%. Of note by the ED physician, the patient had pink frothy sputum on admission to the ER. He was emergently intubated by the emergency department. He has a chest x-ray which demonstrates bilateral infiltrates consistent with pulmonary edema. He has a BNP which is severely elevated at 1300. He has a elevated creatinine suggestive of acute kidney injury with an unknown baseline. Per report he has been treated for an MRSA skin infection. He is afebrile with a normal white count. Critical care medicine is consulted to evaluate manage his acute encephalopathy, multiorgan dysfunction. No additional information is available from the patient due to his severe encephalopathy. SUBJ 11/29: Remains intubated sedated with propofol for vent synchrony. According to RN he did follow commands upper extremities when sedation held. Chest exam reveals bilateral coarse rhonchi, crackles. CXR pending at this time Objective Vital Signs Date Time Temp Pulse Resp B/P (MAP) Pulse Ox O2 Delivery O2 Flow Rate FiO2 11/29/17 07:59 100 40 11/29/17 06:00 66 11/29/17 04:00 98.6 16 97/58 (71) 11/28/17 05:29 Ventilator Intake and Output 11/29/17 11/29/17 11/30/17 08:00 16:00 00:00 Intake Total 228 ml Output Total 650 ml Balance -422 ml Result Diagram: 11/29/17 0340 11/29/[address] 11/28: Negative for acute disease Chest x-ray 11/28: Bilateral diffuse infiltrates consistent with pulmonary edema Objective Remarks GENERAL: Middle-age male who appears much older than stated age, lying in bed, intubated, sedated with propofol HEENT: Normocephalic. Atraumatic. Pupils equal, round, reactive, conjugate. Orotracheally intubated NECK: Trachea is midline. Positive JVD above the level of mandible CHEST: Intubated with an 8.0 ET tube. Equal chest rise. PRVC. 40% FiO2. Bilateral coarse rhonchi and crackles CARDIOVASCULAR: Normal rate, regular rhythm. Appears sinus by telemetry. ABDOMEN: Soft, nontender, nondistended. No guarding. MUSCULOSKELETAL: Pulses 2+. 2+ peripheral edema. NEUROLOGICAL: Intubated sedated with propofol. Weakly withdraws to pain. Positive corneals. Positive cough. Positive gag. (Does follow commands to RN when sedation was held) Urinary Catheter: Yes Assessment to: Continue A/P Assessment and Plan Assessment: 47-year-old male with prior stroke who presents with severe acute congestive heart failure exacerbation, unknown type, with associated acute hypoxic and hypercarbic respiratory failure, acute metabolic encephalopathy, acute kidney injury. Remains critically ill. Check pro-calcitonin and if normal we will not cover with empiric antibiotics as this appears to be isolated to his heart failure. Will order renal ultrasound to rule out obstructive uropathy. Frequent neurochecks. EEG, head CT, MRI. Avoid long- acting sedatives. Plan by systems: Neurologic: Acute metabolic encephalopathy History of prior CVA MRI-old frontoparietal encephalomalacia, no acute findings EEG-generalized slowing without seizures Frequent neurochecks Propofol for goal RASS -2, Avoid long-acting sedatives. Start daily sedation vacation Tox screen, UDS positive only for benzodiazepines Check ammonia TSH. B12 normal Respiratory: Acute hypoxic and hypercarbic respiratory failure Severe acute pulmonary edema Vent bundle, Head of bed elevated Nebs every 6 hours scheduled and as needed Start SBT if mental status improves Wean FiO2 for goal SPO2 greater than 90% Lasix 80 mg IV 1 given yesterday, start scheduled Lasix 40 every 12 with IV albumin Goal net -2 L in 24 hours Cardiovascular: Acute severe congestive heart failure exacerbation, unknown type Mildly Elevated troponin Lasix 80 mg IV 1 given 11/29, start scheduled Lasix 40 every 12 with IV albumin 2D echo pending at this time. Repeat chest x-ray Trend troponins, only trivial evaluation Patient has severe anemia with a hemoglobin of 5.9 and until we can rule out ongoing blood loss, we will hold off on heparinizing the patient. Hold off on aspirin given severe anemia Renal: Acute kidney injury superimposed on chronic renal insufficiency with an unknown baseline Likely secondary to venous congestion from CHF Continue Dudley Diuresis as above Renal ultrasound Urine electrolytes, Urine eosinophils -Strict I/Os -Nephrology consulted anticipating hemodialysis for fluid removal and possible uremia if renal function gets worse with forced diuresis FEN/GI: Acute intravascular volume overload Diuresis as above Tube feeds with Jevity, change to Nepro Heme/ID: Severe anemia, unknown etiology s/p 1 unit PRBCs Holding anticoagulation until etiology is determined Iron studies Follow-up H&H Daily CBC Pro calcitonin 1.4 intermediate risk. No infectious etiology suspected this time. F/U cultures Check stool for Hemoccult Endocrine: Hyperglycemia of critical illness Diabetes -- SSI Prophylaxis: GI Prophylaxis IV twice daily PPI DVT Prophylaxis -- SCDs Holding pharmacologic DVT prophylaxis in the setting of severe anemia Lines: Peripheral IVs Dudley Dispo: Continue ICU. Very critically ill. This patient remains critically ill with one or more organ systems which are or may become a threat to life. I have spent in excess of 33 minutes discontinuously in the care and management of this patient. This time is exclusive of procedures, and includes, but is not limited to, evaluation of the patient, review of the medical record, discussions with family, consultants, nursing staff, or respiratory therapy, and documentation in the medical record. Aj Miller MD November 29, 2017 08:30
[2017-11-29] MEDS: ARTIFICIAL TEARS OPTH SOLN 15 ML BTL EACH EYE SCH ×3 (08:40→17:20)
[2017-11-29] MEDS: ALBUMIN 25% INJ 100 ML IV SCH ×2 (08:40→21:08)
[2017-11-29] MEDS: DOCUSATE SODIUM 50 MG/SENNA 8.6 MG TAB PO SCH ×2 (08:40→21:00)
[2017-11-29] MEDS: SODIUM CHLORIDE 0.9% FLUSH 10 ML FLUSH IV FLUSH SCH ×2 (08:40→21:08)
[2017-11-29] MEDS: FUROSEMIDE 40 MG/4 ML VIAL IV PUSH SCH ×2 (08:40→17:20)
--- NOTE | 2017-11-29 09:28 | RADRPT ---
EXAM DATE: 11/29/2017 9:21 AM EDT AGE/SEX: 47 years / Male INDICATIONS: Respiratory disease CLINICAL DATA: This is the patient's initial encounter. Patient reports that signs and symptoms have been present for 1 day and indicates a pain score of Nonresponsive. MEDICAL/SURGICAL HISTORY: Diabetes mellitus type II. Hypertension. stroke CABG. feeding tube , hernia COMPARISON: [facility], CHEST SINGLE AP, 11/28/2017. . FINDINGS: Stable ETT. Interval removal of NGT. Marked interval progression of diffuse patchy airspace disease a nd more focal airspace consolidation at the lung bases bilaterally. Cardiac silhouette is enlarged. P ulmonary vascularity is indistinct. Remainder of the exam is unchanged. CONCLUSION: 1. Stable ETT. NGT has been removed. 2. Marked interval progression of diffuse patchy airspace disease and more focal consolidation at th e lung bases. This likely reflects pulmonary edema given short interval change although differential considerations include developing ARDS. Electronically signed by: Alan Young MD 11/29/2017 9:26 AM EDT
--- NOTE | 2017-11-29 14:56 | PD.CONS ---
HPI Service Nephrology Consult Requested By Dr. Miller Reason for Consult ARF/CKD Primary Care Physician Unknown History of Present Illness Patient is a 47 year old black male with history of diabetes, since childhood age 10 or 11 years old, he has CAD S/p CABG, last April had a stroke Left hemiplegia, required feeding tube placement, now with bilateral foot sores, discovered to be in altered mental status, short of breath, pink sputum coming out mouth [facility],, required intubation and now on Ventilator. He was started on Lasix 40 mg q 12. 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 Dysphagia with feeding tube placement History of psychiatric disorder Depression High cholesterol Hiatal hernia CAD Past Surgical History CABG PEG tube placement Reported Medications Reported Meds & Active Scripts Active Reported Zofran (Ondansetron HCl) 4 Mg Tab 4 Mg G-TUBE Q6HR PRN Zantac (Ranitidine HCl) 150 Mg Tab 75 Mg G-TUBE DAILY Vitamin D-1000 (Cholecalciferol) 1,000 Unit Tab 5,000 Units G-TUBE DAILY Vancomycin Inj (Vancomycin HCl) 1 Gram Inj 1,250 Mg IV DAILY Tylenol (Acetaminophen) 325 Mg Tab 650 Mg PO Q6H PRN Phenergan Supp (Promethazine HCl) 25 Mg Supp 25 Mg RECTAL Q4H PRN Nitrostat SL (Nitroglycerin) 0.4 Mg Subl 0.4 Mg SL DIRECTED PRN 1 tablet under the tongue as needed for chest pain. Repeat every 5 minutes for a total of 3 DOSES or call 911 if NO relief. Tramadol (Tramadol HCl) 50 Mg Tab 50 Mg G-TUBE BID PRN Sodium Bicarbonate 325 Mg Tab 325 Mg PO BIDPC Novolin R Inj (Insulin Human Regular) 1,000 Unit/10 Ml Vial 0 SQ DIRECTED Sliding Scale As Directed. Nephro-Susy (B-Complex W/ C & Folic Acid) 1 Tab 1 Tab PO DAILY Melatonin 5 Mg Tab 3 Mg PO HS Lipitor (Atorvastatin Calcium) 20 Mg Tab 20 Mg PO HS Lantus Inj (Insulin Glargine) 1,000 Unit/10 Ml Vial 10 Units SQ HS Duoneb (Ipratropium-Albuterol Neb) 0.5-2.5 Mg/3 Ml Neb 1 Nebule INH Q4HR NEB [gent. sulfate 1%] 1 Applic TOPICAL Q8HR [diff-stat capsule] 1 Cap G-TUBE BID Escitalopram (Escitalopram Oxalate) 10 Mg Tab 15 Mg PO DAILY Coreg (Carvedilol) 25 Mg Tab 25 Mg PO BID Cipro (Ciprofloxacin HCl) 250 Mg Tab 250 Mg PO BID Baclofen 10 Mg Tab 10 Mg PO DAILY Augmentin (Amoxicillin-Clavulanate) 875-125 Mg Tab 1 Tab PO BID No Current Meds (Miscellaneous Medication) [facility] [place] Active Ordered Medications Current Medications Medications (Trade) Dose Ordered Sig/Arthur Route Start Time Stop Time Status Last Admin (Brethine Inj) 1 mg UNSCH PRN SQ 11/28/17 05:30 (NS Flush) 2 ml UNSCH PRN IV FLUSH 11/28/17 05:45 (NS Flush) 2 ml BID IV FLUSH 11/28/17 09:00 11/29/17 08:40 (Tylenol) 650 mg Q6H PRN PO 11/28/17 05:45 11/28/17 12:14 (Tears Naturale Opth Soln) 1 drop TID EACH EYE 11/28/17 09:00 11/29/17 13:09 (Zofran Inj) 4 mg Q6H PRN IV PUSH 11/28/17 05:45 (Duoneb Neb) 1 ampule Q2HR NEB PRN INH 11/28/17 05:45 11/29/17 08:16 ([facility] [place] Nursing Information) 1 Q361D XX 11/28/17 05:45 (Chlorhexidine 2% Cloth) 3 pack Taper DAILY@04 TOP 11/29/17 04:00 11/25/18 03:59 11/29/17 04:00 (Chlorhexidine 2% Cloth) 3 pack UNSCH PRN TOP 11/28/17 05:45 (Jessie-Colace) 1 tab BID PO 11/28/17 09:00 (Milk Of Magnesia Liq) 30 ml Q12H PRN PO 11/28/17 05:45 (Senokot) 17.2 mg Q12H PRN PO 11/28/17 05:45 (Dulcolax Supp) 10 mg DAILY PRN RECTAL 11/28/17 05:45 (Lactulose Liq) 30 ml DAILY PRN PO 11/28/17 05:45 (D50w (Vial) Inj) 25 ml UNSCH PRN IV PUSH 11/28/17 06:15 (NovoLIN R SUPPLEMENTAL SCALE) 1 Q6HR SQ 11/28/17 12:00 11/29/17 12:00 (Protonix Inj) 40 mg Q12H IV PUSH 11/28/17 12:00 11/29/17 13:01 Propofol 100 ml @ 2.7 mls/hr TITRATE PRN IV 11/28/17 14:15 11/29/17 04:20 (Duoneb Neb) 1 ampule Q6HR NEB NEB 11/29/17 10:00 (Lasix Inj) 40 mg BID@09,18 IV PUSH 11/29/17 09:00 11/29/17 08:40 Albumin Human 100 ml @ 60 mls/hr Q12H IV 11/29/17 08:30 11/29/17 08:40 Family History noncontributory Social History resident of correction Physical Exam Vital Signs Vital Signs Date Time Temp Pulse Resp B/P (MAP) Pulse Ox O2 Delivery O2 Flow Rate FiO2 11/29/17 12:37 40 11/29/17 12:00 76 11/29/17 12:00 98.7 76 26 126/57 (80) 100 11/29/17 10:20 100 40 11/29/17 10:00 72 11/29/17 08:17 99 40 11/29/17 08:00 63 11/29/17 08:00 97.8 63 16 99/62 (74) 100 11/29/17 07:59 100 40 11/29/17 06:00 66 11/29/17 04:05 99 40 11/29/17 04:00 66 11/29/17 04:00 40 11/29/17 04:00 98.6 66 16 97/58 (71) 100 11/29/17 02:00 67 11/29/17 01:03 94 40 11/29/17 00:00 40 11/29/17 00:00 98.5 69 16 101/57 (72) 100 11/29/17 00:00 69 11/28/17 22:08 99 40 11/28/17 22:00 71 11/28/17 20:00 72 11/28/17 20:00 50 11/28/17 20:00 99.3 72 16 95/56 (69) 100 11/28/17 19:22 100 40 11/28/17 18:52 99.6 74 16 88/53 100 11/28/17 18:00 73 11/28/17 18:00 100 50 11/28/17 17:00 100 40 11/28/17 16:00 50 11/28/17 16:00 75 11/28/17 16:00 99.2 75 17 91/51 (64) 100 Physical Exam GENERAL: Well-nourished, well-developed intubated patient. SKIN: Warm and dry. HEAD: Normocephalic. EYES: No scleral icterus. No injection or drainage. NECK: Supple, trachea midline. No JVD or lymphadenopathy. CARDIOVASCULAR: Regular rate and rhythm without murmurs, gallops, or rubs. RESPIRATORY: Breath sounds bilateral rhonchi GASTROINTESTINAL: Abdomen soft, non-tender, nondistended. EXTREMITIES: No cyanosis, or edema. ulceration of both feet. NEUROLOGICAL: Awake, Laboratory Laboratory Tests Test 11/28/17 16:05 11/28/17 22:26 11/29/17 03:40 11/29/17 09:49 Hemoglobin 6.4 7.6 7.8 Hematocrit 18.6 22.7 23.1 Troponin I 0.10 0.10 Iron Level 11 Total Iron Binding Capacity 209 Percent Iron Saturation 5.3 Ferritin 577 Vitamin B12 Level 1082 Folate GREATER THAN 20.0 White Blood Count 5.2 Red Blood Count 2.62 Mean Corpuscular Volume 88.2 Mean Corpuscular Hemoglobin 30.0 Mean Corpuscular Hemoglobin Concent 34.0 Red Cell Distribution Width 14.0 Platelet Count 155 Mean Platelet Volume 9.0 Neutrophils (%) (Auto) 72.9 Lymphocytes (%) (Auto) 18.4 Monocytes (%) (Auto) 8.1 Eosinophils (%) (Auto) 0.2 Basophils (%) (Auto) 0.4 Neutrophils # (Auto) 3.7 Lymphocytes # (Auto) 0.9 Monocytes # (Auto) 0.4 Eosinophils # (Auto) 0.0 Basophils # (Auto) 0.0 CBC Comment DIFF FINAL Differential Comment Prothrombin Time 12.7 Prothromb Time International Ratio 1.3 Activated Partial Thromboplast Time 33.8 Blood Urea Nitrogen 92 Creatinine 2.53 Random Glucose 74 Total Protein 7.5 Albumin 2.5 Calcium Level 7.7 Phosphorus Level 5.0 Magnesium Level 2.4 Alkaline Phosphatase 79 Aspartate Amino Transf (AST/SGOT) 77 Alanine Aminotransferase (ALT/SGPT) 38 Total Bilirubin 0.7 Sodium Level 137 Potassium Level 3.9 Chloride Level 101 Carbon Dioxide Level 22.5 Anion Gap 14 Estimat Glomerular Filtration Rate 33 Ammonia 21 Thyroid Stimulating Hormone 3rd Gen 2.630 Date/Time Source Procedure Growth Status 11/28/17 05:10 Blood Peripheral Aerobic Blood Culture - Preliminary Gram Positive Cocci Resulted 11/28/17 05:10 Blood Peripheral Anaerobic Blood Culture - Preliminary NO GROWTH IN 1 DAY Resulted 11/28/17 10:09 Sputum Endotracheal Gram Stain - Final Resulted 11/28/17 10:09 Sputum Culture - Preliminary Gram Negative Fortino Resulted 11/28/17 05:10 Urine Random Urine Urine Culture - Preliminary NO GROWTH IN 24 HOURS. Resulted Result Diagram: 11/29/17 0340 11/29/17 0340 Imaging Last Impressions Chest X-Ray 11/29/17 0000 Signed Impressions: CONCLUSION: 1. Stable ETT. NGT has been removed. 2. Marked interval progression of diffuse patchy airspace disease and more foc al consolidation at the lung bases. This likely reflects pulmonary edema given short interval change although differential considerations include developing A RDS. Renal Ultrasound 11/28/17 Signed Impressions: CONCLUSION: 1. Echogenic kidneys consistent with medical renal disease. 2. No obstructive uropathy. Head CT 11/28/17 Signed Impressions: CONCLUSION: 1. No acute hemorrhage or mass effect. 2. Large area of encephalomalacia involving the right frontal and parietal lob e. 3. Chronic sinusitis. Brain MRI 11/28/17 Signed Impressions: CONCLUSION: 1. Large area of encephalomalacia in the right medial frontal parietal high co nvexities extending to the vertex. 2. No evidence for acute abnormality. Specifically, no acute infarction, hemor rhage or hydrocephalus. 3. Paranasal sinus mucosal disease. Assessment and Plan Problem List: (1) Acute renal failure ICD Codes: N17.9 - Acute kidney failure, unspecified Plan: baseline creatinine was high back in August 2.1 He is responding to Lasix Given Tobramycin yesterday avoid nephrotoxins if possible (2) CKD (chronic kidney disease) stage 3, GFR 30-59 ml/min ICD Codes: N18.3 - Chronic kidney disease, stage 3 (moderate) Plan: long standing diabetes and this is likely causing CKD Check MELCHOR,SPEP C3 C4 (3) Diabetes ICD Codes: E11.9 - Type 2 diabetes mellitus without complications Plan: Continue to monitor (4) Pneumonia ICD Codes: J18.9 - Pneumonia, unspecified organism Plan: receive Cefepime/Azithromycin and Tobramycin (5) CHF (congestive heart failure) ICD Codes: I50.9 - Heart failure, unspecified Plan: on Felton Mcdaniel MD November 29, 2017 14:56
[2017-11-29] MEDS: RESP: ALBUTEROL 2.5 MG/IPRATROPIUM 0.5 MG NEB (SCH) NEB ×2 (15:10→22:01)
--- NOTE | 2017-11-29 16:12 | PD.WCN.NOT ---
Wound Consult Description: Wound care consult ordered by for wound management. Communicated with: [facility], Dr. Eagle Recommendation: 1. Cleanse right/left lateral diabetic ulcers with normal saline pat dry. 2. Skin prep payam wound, Right lateral ulcer apply Maxorb ll cut to fit wound base and cover with dry dressing change dressing every 3-5 days or as needed for dislodgement/exudate. 3. Apply Santyl 2mm thick to left lateral foot ulcer wound base and cover with moist to dry dressing change daily or as needed for dislodgement. 4. Please consult podiatry for possible surgical debridement. Additional Information: Patient was seen today by magnetic tape typewriter operator and Lisset STOCKTON chief nursing executive for wound management.Patient currently sedated and vented.Blue boots removed from bilateral lower extremities.Radiation Protection Engineer was able to visualized right foot with assistance of Lisset stockton student .Wounds cleansed with normal saline and pat dry.Patient has healing diabetic ulcer located on lateral met head measuring 0.5cm x0.5cm x0.2cm wound base is 100% moist pink non granular tissue with scant serous drainage noted with out odor.Periwound is calloused ~2.0cm circumferentially.Wound cleansed with normal saline pat dry left open to air till Maxorb ll available.Left lateral plantar has a diabetic ulcer measuring 3.0cm x 1.9cm x slough.Wound base is 60% adhered yellow slough 30% black necrotic tissue 10% moist white/pink non granular tissue.Wound edges are well defined jagged and sloped with wound base.Scant serosanguineous drainage noted with faint odor present.Black intact tissue noted to left planter extending towards medial plantar non blanchable.patient would benefit from podiatry consult for possible debridement.Brooklynn ARTEAGA to apply dressing when Santyl/Maxorb ll available to floor.Wounds were covered with dry gauze and blue boots reapplied.Patient was in no apparent distress upon writers departure. Lawrence Tom [facility] November 29, 2017 16:12
[2017-11-29 16:21] LABS: ALBUMIN 2.7 GM/DL (3.4-5.0); ALT (GPT) 41 U/L (12-78); AST (GOT) 94 U/L (15-37); BICARBONATE 22.8 MEQ/L (21.0-32.0); BLOOD UREA NITROGEN 87 MG/DL (7-18); CALCIUM 7.7 MG/DL (8.5-10.1); CHLORIDE 102 MEQ/L (98-107); CREATININE 2.46 MG/DL (0.60-1.30); GLOMERULAR FILTRATION RATE 34 ML/MIN (>89); GLUCOSE,RANDOM 134 MG/DL (74-106); SODIUM (NA) 137 MEQ/L (136-145)
[2017-11-29 16:23] LABS: ALKALINE PHOSPHATASE 87 U/L (45-117); TOTAL BILIRUBIN ADULT 0.6 MG/DL (0.2-1.0); TOTAL PROTEIN 7.8 GM/DL (6.4-8.2)
[2017-11-30] VITALS (36 sets, daily range): BP systolic 100–119; BP diastolic 55–74; PULSE 69–76; RESP 16–24; TEMP 98.1–100.6; O2SAT 100
[2017-11-30] MEDS: PANTOPRAZOLE SODIUM 40 MG VIAL IV PUSH SCH ×3 (00:13→22:23)
[2017-11-30] MEDS: PIPERACIL-TAZO 4.5 GM PREMIX 100 ML IV SCH ×4 (00:13→18:26)
[2017-11-30] MEDS: CHLORHEXIDINE GLUCONATE 2 % 1 PACK (2 CLOTHS) TOP SCH (03:27)
[2017-11-30] MEDS: PROPOFOL 1000 MG/100 ML IV PRN ×6 (03:28→22:24)
[2017-11-30] MEDS: RESP: ALBUTEROL 2.5 MG/IPRATROPIUM 0.5 MG NEB (SCH) NEB ×4 (04:04→20:04)
[2017-11-30] MEDS: INSULIN NovoLIN REGULAR SUPPLEMENTAL SCALE SQ SCH ×4 (05:05→18:00)
[2017-11-30 06:44] LABS: AUTOMATED NEUTROPHIL # 3.9 TH/MM3 (1.8-7.7); BASOPHIL % 0.3 % (0.0-2.0); EOSINOPHIL % 0.1 % (0.0-4.0); HEMOGLOBIN 7.1 GM/DL (13.0-17.0); LYMPH % 17.4 % (9.0-44.0); LYMPHOCYTE # 0.9 TH/MM3 (1.0-4.8); MEAN CELL VOLUME 88.3 FL (80.0-100.0); MEAN CORPUSCULAR HEMOGLOBIN 29.9 PG (27.0-34.0); MEAN CORPUSCULAR HGB CONC 33.9 % (32.0-36.0); MONO % 8.5 % (0.0-8.0); MONOCYTE # 0.5 TH/MM3 (0-0.9); NEUT % 73.7 % (16.0-70.0); PLATELET COUNT 151 TH/MM3 (150-450); RED BLOOD COUNT 2.38 MIL/MM3 (4.50-5.90); WHITE BLOOD COUNT 5.3 TH/MM3 (4.0-11.0)
--- NOTE | 2017-11-30 06:54 | RADRPT ---
EXAM DATE: 11/30/2017 6:27 AM EDT AGE/SEX: 47 years / Male INDICATIONS: Shortness of breath. CLINICAL DATA: This is the patient's subsequent encounter. Patient reports that signs and symptoms h ave been present for 2 days and indicates a pain score of Nonresponsive. MEDICAL/SURGICAL HISTORY: . Diabetes mellitus type II. Hypertension. stroke. CABG. . Feeding t ube. hernia. COMPARISON: [facility] [place], CHEST SINGLE AP, 11/29/2017. . FINDINGS: The patient is status post sternotomy. The heart size is normal. The patient is intubated with the ET tube 3.7 cm from the luz maria. There are patchy areas of increased density seen in the left perihilar region, left base, right upper lung and right lower lung. There is elevation of the left hemidiaphrag m. CONCLUSION: Patchy areas of increased density related to areas of consolidation or atelectasis. Electronically signed by: Paul Donis MD 11/30/2017 6:52 AM EDT
[2017-11-30 07:25] LABS: ALBUMIN 2.7 GM/DL (3.4-5.0); ALT (GPT) 39 U/L (12-78); AST (GOT) 97 U/L (15-37); BICARBONATE 24.1 MEQ/L (21.0-32.0); BLOOD UREA NITROGEN 83 MG/DL (7-18); CALCIUM 7.5 MG/DL (8.5-10.1); CHLORIDE 103 MEQ/L (98-107); COMPLEMENT C4 27 MG/DL (10-40); CREATININE 2.42 MG/DL (0.60-1.30); GLOMERULAR FILTRATION RATE 35 ML/MIN (>89); GLUCOSE,RANDOM 112 MG/DL (74-106); MAGNESIUM 2.6 MG/DL (1.5-2.5); PHOSPHORUS 5.3 MG/DL (2.5-4.9); SODIUM (NA) 139 MEQ/L (136-145)
[2017-11-30] MEDS: DOCUSATE SODIUM 50 MG/SENNA 8.6 MG TAB PO SCH ×2 (07:28→20:55)
[2017-11-30] MEDS: ALBUMIN 25% INJ 100 ML IV SCH ×2 (07:28→21:09)
[2017-11-30] MEDS: FUROSEMIDE 40 MG/4 ML VIAL IV PUSH SCH ×2 (07:28→18:25)
[2017-11-30 07:29] LABS: ALKALINE PHOSPHATASE 86 U/L (45-117); TOTAL BILIRUBIN ADULT 0.8 MG/DL (0.2-1.0); TOTAL PROTEIN 7.3 GM/DL (6.4-8.2)
[2017-11-30] MEDS: SODIUM CHLORIDE 0.9% FLUSH 10 ML FLUSH IV FLUSH SCH ×2 (07:29→21:10)
[2017-11-30] MEDS: ARTIFICIAL TEARS OPTH SOLN 15 ML BTL EACH EYE SCH ×3 (07:29→18:29)
--- NOTE | 2017-11-30 08:21 | HHI.CCPN ---
Subjective Remarks/Hospital Course This is a 47-year-old male with a history of prior stroke who presented from half-way facility by EMS for acute altered mental status. Per EMS reports, he was in his normal state of health last night and then with his reevaluated by the nursing staff and was a GCS of 3 with room air sats of 79%. Of note by the ED physician, the patient had pink frothy sputum on admission to the ER. He was emergently intubated by the emergency department. He has a chest x-ray which demonstrates bilateral infiltrates consistent with pulmonary edema. He has a BNP which is severely elevated at 1300. He has a elevated creatinine suggestive of acute kidney injury with an unknown baseline. Per report he has been treated for an MRSA skin infection. He is afebrile with a normal white count. Critical care medicine is consulted to evaluate manage his acute encephalopathy, multiorgan dysfunction. No additional information is available from the patient due to his severe encephalopathy. SUBJ 11/29: Remains intubated sedated with propofol for vent synchrony. According to RN he did follow commands upper extremities when sedation held. Chest exam reveals bilateral coarse rhonchi, crackles. CXR pending at this time 11/30: remains intubated. cxr with bilateral infiltrates again suggestive of volume overload. Objective Vital Signs Date Time Temp Pulse Resp B/P (MAP) Pulse Ox O2 Delivery O2 Flow Rate FiO2 11/30/17 06:00 74 11/30/17 04:05 100 40 11/30/17 04:00 99.1 16 109/60 (76) 11/28/17 05:29 Ventilator Intake and Output 11/30/17 11/30/17 11/30/17 07:59 15:59 23:59 Intake Total 613 ml Output Total 800 ml Balance -187 ml Result Diagram: 11/30/17 0600 11/30/[address] 11/28: Negative for acute disease Chest x-ray 11/28: Bilateral diffuse infiltrates consistent with pulmonary edema Objective Remarks GENERAL: Middle-age male who appears much older than stated age, lying in bed, intubated, sedated with propofol HEENT: Normocephalic. Atraumatic. Pupils equal, round, reactive, conjugate. Orotracheally intubated NECK: Trachea is midline. Positive JVD CHEST: Intubated with an 8.0 ET tube. Equal chest rise. PRVC. 40% FiO2. Bilateral coarse rhonchi and crackles CARDIOVASCULAR: Normal rate, regular rhythm. Appears sinus by telemetry. ABDOMEN: Soft, nontender, nondistended. No guarding. MUSCULOSKELETAL: Pulses 2+. 2+ peripheral edema. NEUROLOGICAL: Intubated sedated with propofol. Weakly withdraws to pain. Positive corneals. Positive cough. Positive gag. (Does follow commands to RN when sedation was held) A/P Assessment and Plan Assessment: 47-year-old male with prior stroke who presents with severe acute congestive heart failure exacerbation, unknown type, with associated acute hypoxic and hypercarbic respiratory failure, acute metabolic encephalopathy, acute kidney injury. Remains critically ill. still awaiting echo to determine ventricular function. still appears cardiac in origin and not infectious. remains afebrile with normal wbc count. remains very critically ill with minimal if any improvement over last 48h. off pathway. Plan by systems: Neurologic: Acute metabolic encephalopathy History of prior CVA MRI-old frontoparietal encephalomalacia, no acute findings EEG-generalized slowing without seizures Frequent neurochecks Propofol for goal RASS -2, Avoid long-acting sedatives. daily sedation vacation Tox screen, UDS positive only for benzodiazepines Check ammonia TSH. B12 normal Respiratory: Acute hypoxic and hypercarbic respiratory failure Severe acute pulmonary edema Vent bundle, Head of bed elevated Nebs every 6 hours scheduled and as needed daily SBTs Wean FiO2 for goal SPO2 greater than 90% continue forced diuresis today. Goal net -2 L in 24 hours: not meeting our goals currently. Cardiovascular: Acute severe congestive heart failure exacerbation, unknown type Mildly Elevated troponin Lasix 80 mg IV 1 given 11/29, now scheduled Lasix 40 every 12 with IV albumin 2D echo pending at this time. Patient has severe anemia with a hemoglobin of 5.9 and until we can rule out ongoing blood loss, we will hold off on heparinizing the patient. Hold off on aspirin given severe anemia Renal: Acute kidney injury superimposed on chronic renal insufficiency with an unknown baseline Likely secondary to venous congestion from CHF Continue Dudley Diuresis as above Renal ultrasound: no obstruction or hydro FENa on admission 3.7% (unknown if on chronic lasix) FEUrea on admission 47.3%- suggestive of intrinsic renal disease. urine eosinophils negative -Strict I/Os -Nephrology consulted anticipating hemodialysis for fluid removal and possible uremia if renal function gets worse with forced diuresis FEN/GI: Acute intravascular volume overload Diuresis as above Tube feeds with Nepro Heme/ID: Severe anemia, likely secondary to chronic disease s/p 2 unit PRBCs on 11/28 Holding anticoagulation until etiology is determined Iron studies: low iron, low TIBC, high ferritin. suggests chronic disease as a cause. Daily CBC Pro calcitonin 1.4 intermediate risk. No infectious etiology suspected this time. blood cultures 11/28 GPCs in 2/ bottles sputum culture 11/28 GNR clinically does not appear infected. afebrile normal wbc count. Check stool for Hemoccult Endocrine: Hyperglycemia of critical illness Diabetes -- SSI Prophylaxis: GI Prophylaxis IV twice daily PPI DVT Prophylaxis -- SCDs Holding pharmacologic DVT prophylaxis in the setting of severe anemia Lines: Peripheral IVs Dudley Dispo: Continue ICU. Very critically ill. This patient remains critically ill with one or more organ systems which are or may become a threat to life. I have spent in excess of 39 minutes discontinuously in the care and management of this patient. This time is exclusive of procedures, and includes, but is not limited to, evaluation of the patient, review of the medical record, discussions with family, consultants, nursing staff, or respiratory therapy, and documentation in the medical record. Chandana Eagle MD November 30, 2017 08:21
[2017-11-30] MEDS ORDERED: VANCOMYCIN INJ 1,250 MG in SODIUM CHLOR 0.9% 250 ML INJ 250 ML IV ONE (08:30)
[2017-11-30] MEDS ORDERED: Vancomycin Consult Pharmacy 1 EA OTHER SCH (08:30)
[2017-11-30 09:01] LABS: BANDS 4 % (0-6); LYMPHOCYTES 20 % (9-44); MONOCYTES 4 % (0-8); POLYS (SEG NEUTROPHILS) 72 % (16-70)
[2017-11-30 09:17] LABS: ALB/GLOB RATIO (SPE) 0.88 (1.39-2.23)
[2017-11-30] MEDS ORDERED: METOLAZONE 5 MG TAB PO ONE (10:05)
--- NOTE | 2017-11-30 10:28 | HHI.NPPN ---
Subjective History of Present Illness 47 year old with CVA with disability, DM ,HTN ,CKD intubated, CHF, gr neg in sputum, foot ulcers Objective Data Data Vital Signs Date Time Temp Pulse Resp B/P (MAP) Pulse Ox O2 Delivery O2 Flow Rate FiO2 11/30/17 09:01 100 40 11/30/17 09:00 40 11/30/17 08:00 99.6 76 16 106/58 (74) 100 11/30/17 08:00 76 11/30/17 08:00 40 11/30/17 06:00 74 11/30/17 04:05 100 40 11/30/17 04:00 40 11/30/17 04:00 99.1 72 16 109/60 (76) 100 11/30/17 04:00 72 11/30/17 02:00 74 11/30/17 01:16 100 40 11/30/17 00:00 74 11/30/17 00:00 40 11/30/17 00:00 98.1 74 16 119/74 (89) 100 11/29/17 22:02 100 40 11/29/17 22:00 75 11/29/17 20:00 40 11/29/17 20:00 99.8 76 16 102/63 (76) 100 11/29/17 20:00 76 11/29/17 18:00 73 11/29/17 16:00 77 11/29/17 16:00 98.3 77 14 106/56 (73) 100 11/29/17 16:00 40 11/29/17 15:22 100 40 11/29/17 14:00 79 11/29/17 12:37 40 11/29/17 12:00 76 11/29/17 12:00 98.7 76 26 126/57 (80) 100 11/29/17 10:20 100 40 -: 11/30/17 0600 11/30/17 0600 Physical Exam General Appearance: Well Developed Neck Neck Exam: Neck Supple Pulmonary Resp Exam: Decreased Bases Cardiology CV Exam: Regular, Normal Sinus Rhythm Gastrointestinal/Abdomen GI Exam: Soft, Non-Tender, Bowel Sounds Present Integumentary Skin Exam: Ulcer(s) Extremeties Extremities Exam: Trace Edema Assessment/Plan Problem List: (1) Acute renal failure ICD Codes: N17.9 - Acute kidney failure, unspecified Plan: baseline creatinine was high back in August 10.1 He is responding to Lasix creatinine declined UOP 1.8 L urine eos neg avoid nephrotoxins if possible (2) CKD (chronic kidney disease) stage 3, GFR 30-59 ml/min ICD Codes: N18.3 - Chronic kidney disease, stage 3 (moderate) Plan: long standing diabetes and this is likely causing CKD follow MELCHOR,SPEP C3 C4 negative (3) Diabetes ICD Codes: E11.9 - Type 2 diabetes mellitus without complications Status: Chronic Plan: Continue to monitor (4) Pneumonia ICD Codes: J18.9 - Pneumonia, unspecified organism Plan: on Zosyn receive Vanco (5) CHF (congestive heart failure) ICD Codes: I50.9 - Heart failure, unspecified Plan: on Felton Mcdaniel MD November 30, 2017 10:28
[2017-11-30] MEDS ORDERED: DIFFCHW G-TUBE (10:54)
[2017-11-30] MEDS ORDERED: GENT0.1C TOPICAL (10:55)
[2017-11-30] MEDS ORDERED: VANCOMYCIN 1,500 MG/NS 500 ML IV ONE ×2 (12:00)
[2017-11-30] MEDS ORDERED: SODIUM CHLOR 0.9% 250 ML INJ 250 ML IV ONE (13:15)
--- NOTE | 2017-11-30 19:45 | PD.CONS ---
History of Present Illness Service Foot and ankle surgery/podiatry Consult Requested By Reason for Consult Bilateral foot wounds Primary Care Physician Unknown Diagnoses: History of Present Illness Podiatry consulted for this 47-year-old male with a history of prior's stroke for bilateral foot ulcerations. Patient was brought to the hospital by EMS for acute altered mental status. The ED physician saw patient had pink frothy sputum on admission. Patient's checks x-ray was positive for bilateral infiltrates consistent with pulmonary edema. Patient is intubated and sedated at this time. Review of Systems ROS Limitations: Intubated Past Family Social History Allergies: Coded Allergies: No Known Allergies (Verified Allergy, Severe, 11/03/06) Past Medical History As per HPI, unobtainable Active Ordered Medications Current Medications Medications (Trade) Dose Ordered Sig/Arthur Route Start Time Stop Time Status Last Admin (Brethine Inj) 1 mg UNSCH PRN SQ 11/28/17 05:30 (NS Flush) 2 ml UNSCH PRN IV FLUSH 11/28/17 05:45 (NS Flush) 2 ml BID IV FLUSH 11/28/17 09:00 11/30/17 07:29 (Tylenol) 650 mg Q6H PRN PO 11/28/17 05:45 11/28/17 12:14 (Tears Naturale Opth Soln) 1 drop TID EACH EYE 11/28/17 09:00 11/30/17 18:29 (Zofran Inj) 4 mg Q6H PRN IV PUSH 11/28/17 05:45 (Duoneb Neb) 1 ampule Q2HR NEB PRN INH 11/28/17 05:45 11/29/17 08:16 ([facility] [place] Nursing Information) 1 Q361D XX 11/28/17 05:45 (Chlorhexidine 2% Cloth) 3 pack Taper DAILY@04 TOP 11/29/17 04:00 11/25/18 03:59 11/30/17 03:27 (Chlorhexidine 2% Cloth) 3 pack UNSCH PRN TOP 11/28/17 05:45 (Jessie-Colace) 1 tab BID PO 11/28/17 09:00 11/30/17 07:28 (Milk Of Magnesia Liq) 30 ml Q12H PRN PO 11/28/17 05:45 (Senokot) 17.2 mg Q12H PRN PO 11/28/17 05:45 (Dulcolax Supp) 10 mg DAILY PRN RECTAL 11/28/17 05:45 (Lactulose Liq) 30 ml DAILY PRN PO 11/28/17 05:45 (D50w (Vial) Inj) 25 ml UNSCH PRN IV PUSH 11/28/17 06:15 (NovoLIN R SUPPLEMENTAL SCALE) 1 Q6HR SQ 11/28/17 12:00 11/30/17 18:00 (Protonix Inj) 40 mg Q12H IV PUSH 11/28/17 12:00 11/30/17 10:32 Propofol 100 ml @ 2.7 mls/hr TITRATE PRN IV 11/28/17 14:15 11/30/17 18:48 (Duoneb Neb) 1 ampule Q6HR NEB NEB 11/29/17 10:00 11/30/17 15:53 (Lasix Inj) 40 mg BID@09,18 IV PUSH 11/29/17 09:00 11/30/17 18:25 Albumin Human 100 ml @ 60 mls/hr Q12H IV 11/29/17 08:30 11/30/17 07:28 Piperacillin Sod/ Tazobactam Sod 100 ml @ 200 mls/hr Q6H IV 11/30/17 00:15 11/30/17 18:26 Pharmacy Profile Note 0 ml @ 0 mls/hr UNSCH OTHER 11/30/17 08:30 Sodium Chloride 250 ml @ 15 mls/hr ONCE ONCE IV 11/30/17 13:15 12/01/17 05:54 11/30/17 13:15 (Santyl Oint) 1 applic DAILY TOPICAL 12/01/17 09:00 Physical Exam Vital Signs Vital Signs Date Time Temp Pulse Resp B/P (MAP) Pulse Ox O2 Delivery O2 Flow Rate FiO2 11/30/17 17:17 100 40 11/30/17 17:00 74 18 108/60 (76) 100 11/30/17 16:30 74 11/30/17 16:30 74 18 103/58 (73) 100 11/30/17 16:00 74 11/30/17 16:00 74 18 102/56 (71) 100 11/30/17 15:30 73 18 103/58 (73) 100 5/25/18 15:30 73 518 15:00 73 24 103/57 (72) 100 11/30/17 15:00 73 5 14:45 98.9 74 18 102/56 100 11/30/17 14:30 72 21 100/56 (71) 100 11/30/17 14:30 72 11/30/17 14:29 99.8 72 19 100/56 100 11/30/17 14:00 72 11/30/17 14:00 72 22 100/57 (71) 100 11/30/17 13:44 40 11/30/17 13:43 100 40 11/30/17 13:30 71 19 102/59 (73) 100 11/30/17 13:30 71 11/30/17 13:00 70 18 116/57 (76) 100 11/30/17 13:00 70 11/30/17 12:30 70 11/30/17 12:30 70 18 105/55 (72) 100 11/30/17 12:02 100 40 11/30/17 12:00 98.9 70 18 103/58 (73) 100 11/30/17 12:00 70 11/30/17 11:30 70 11/30/17 11:00 69 11/30/17 10:30 71 11/30/17 10:00 70 11/30/17 09:01 100 40 11/30/17 09:00 40 11/30/17 08:00 99.6 76 16 106/58 (74) 100 11/30/17 08:00 76 11/30/17 08:00 40 11/30/17 06:00 74 11/30/17 04:05 100 40 11/30/17 04:00 40 18 04:00 99.1 72 16 109/60 (76) 100 18 04:00 72 11/30/17 02:00 74 518 01:16 100 40 18 00:00 74 11/30/17 00:00 40 18 00:00 98.1 74 16 119/74 (89) 100 18 22:02 100 40 18 22:00 75 5 20:00 40 18 20:00 99.8 76 16 102/63 (76) 100 5/24/18 20:00 76 Physical Exam Lower extremity physical exam: Vascular: Dorsalis pedis diminished, posterior tibial diminished bilaterally. Capillary refill time within normal limits to digits X5 bilateral foot to digits present. Edema absent bilateral foot Neuro: Gross sensation intact to bilateral lower extremity. Pinpoint sensation unobtainable. No hyperalgesia noted to bilateral lower extremity Dermatology: Normal temperature and turgor to bilateral lower extremity. Right fifth metatarsal head ulceration noted with hyperkeratotic borders and fiber granular base. Left lateral column ulceration noted with hyperkeratotic borders and fibro-granular base. 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 Laboratory Laboratory Tests Test 11/30/17 06:00 White Blood Count 5.3 Red Blood Count 2.38 Hemoglobin 7.1 Hematocrit 21.0 Mean Corpuscular Volume 88.3 Mean Corpuscular Hemoglobin 29.9 Mean Corpuscular Hemoglobin Concent 33.9 Red Cell Distribution Width 14.0 Platelet Count 151 Mean Platelet Volume 9.0 Neutrophils (%) (Auto) 73.7 Lymphocytes (%) (Auto) 17.4 Monocytes (%) (Auto) 8.5 Eosinophils (%) (Auto) 0.1 Basophils (%) (Auto) 0.3 Neutrophils # (Auto) 3.9 Lymphocytes # (Auto) 0.9 Monocytes # (Auto) 0.5 Eosinophils # (Auto) 0.0 Basophils # (Auto) 0.0 CBC Comment AUTO DIFF Differential Total Cells Counted 100 Neutrophils % (Manual) 72 Band Neutrophils % 4 Lymphocytes % 20 Monocytes % 4 Neutrophils # (Manual) 4.0 Differential Comment FINAL DIFF MANUAL Platelet Estimate NORMAL Platelet Morphology Comment NORMAL Blood Urea Nitrogen 83 Creatinine 2.42 Random Glucose 112 Total Protein 7.3 Albumin 2.7 Calcium Level 7.5 Phosphorus Level 5.3 Magnesium Level 2.6 Alkaline Phosphatase 86 Aspartate Amino Transf (AST/SGOT) 97 Alanine Aminotransferase (ALT/SGPT) 39 Total Bilirubin 0.8 Sodium Level 139 Potassium Level 3.9 Chloride Level 103 Carbon Dioxide Level 24.1 Anion Gap 12 Estimat Glomerular Filtration Rate 35 Albumin/Globulin Ratio 0.88 Kdlau-2-Gtlxglwzv 0.33 Dmtvt-4-Wchhufroe 0.88 Beta Globulins 0.68 Gamma Globulins 2.00 Electrophoresis Pathologist Comment Anti-Nuclear Antibody Screen NEG Complement C3 102 Complement C4 27 Date/Time Source Procedure Growth Status 11/28/17 05:10 Blood Peripheral Aerobic Blood Culture - Preliminary Staph Sp Coagulase Negative Resulted 11/28/17 05:10 Blood Peripheral Anaerobic Blood Culture - Preliminary NO GROWTH IN 2 DAYS Resulted 11/28/17 10:09 Sputum Endotracheal Gram Stain - Final Complete 11/28/17 10:09 Sputum Culture - Final Klebsiella Pneumoniae Esbl Pos Complete 11/28/17 05:10 Urine Random Urine Urine Culture - Final NO GROWTH IN 48 HOURS. Complete Result Diagram: 11/30/17 0600 11/30/17 06 Imaging Last Impressions Chest X-Ray 11/30/17 06 Signed Impressions: CONCLUSION: Patchy areas of increased density related to areas of consolidation or atelecta sis. Renal Ultrasound 11/28/17 0000 Signed Impressions: CONCLUSION: 1. Echogenic kidneys consistent with medical renal disease. 2. No obstructive uropathy. Head CT 11/28/17 0000 Signed Impressions: CONCLUSION: 1. No acute hemorrhage or mass effect. 2. Large area of encephalomalacia involving the right frontal and parietal lob e. 3. Chronic sinusitis. Brain MRI 11/28/17 Signed Impressions: CONCLUSION: 1. Large area of encephalomalacia in the right medial frontal parietal high co nvexities extending to the vertex. 2. No evidence for acute abnormality. Specifically, no acute infarction, hemor rhage or hydrocephalus. 3. Paranasal sinus mucosal disease. Assessment and Plan Assessment and Plan 47-year-old male with bilateral foot ulcerations Patient examined and evaluated Plan to debride bilateral ulcerations tomorrow once consent has been obtained via family members Wound care orders placed to consist of Santyl and moist to dry dressing to bilateral foot ulcerations Continue to offload No acute signs of infection noted Will obtain x-rays to rule out Lindsay Jordan DPM November 30, 2017 19:45
[2017-11-30] MEDS: ACETAMINOPHEN 325 MG TAB PO PRN (21:10)
[2017-12-01] VITALS (30 sets, daily range): BP systolic 103–132; BP diastolic 55–79; PULSE 66–74; RESP 18–33; TEMP 98.1–99.1; O2SAT 91–100
[2017-12-01] MEDS: PIPERACIL-TAZO 4.5 GM PREMIX 100 ML IV SCH ×2 (02:20→05:52)
[2017-12-01] MEDS: PROPOFOL 1000 MG/100 ML IV PRN ×6 (02:20→21:55)
[2017-12-01] MEDS: RESP: ALBUTEROL 2.5 MG/IPRATROPIUM 0.5 MG NEB (SCH) NEB ×4 (03:14→19:59)
[2017-12-01 04:22] LABS: HEMATOCRIT 22.8 % (39.0-51.0); HEMOGLOBIN 7.9 GM/DL (13.0-17.0); MEAN CELL VOLUME 88.1 FL (80.0-100.0); MEAN CORPUSCULAR HEMOGLOBIN 30.5 PG (27.0-34.0); MEAN CORPUSCULAR HGB CONC 34.6 % (32.0-36.0); MEAN PLATELET VOLUME 8.9 FL (7.0-11.0); PLATELET COUNT 133 TH/MM3 (150-450); RED BLOOD COUNT 2.59 MIL/MM3 (4.50-5.90); RED CELL DISTRIBUTION WIDTH 13.9 % (11.6-17.2); WHITE BLOOD COUNT 4.9 TH/MM3 (4.0-11.0)
[2017-12-01] MEDS: CHLORHEXIDINE GLUCONATE 2 % 1 PACK (2 CLOTHS) TOP SCH (04:38)
[2017-12-01 04:44] LABS: BICARBONATE 24.6 MEQ/L (21.0-32.0); CALCIUM 7.5 MG/DL (8.5-10.1); CREATININE 2.4 MG/DL (0.60-1.30)
[2017-12-01 04:46] LABS: RANDOM VANCOMYCIN 31.5 COMMENT
[2017-12-01] MEDS: INSULIN NovoLIN REGULAR SUPPLEMENTAL SCALE SQ SCH ×5 (05:52→23:21)
[2017-12-01] MEDS: ALBUMIN 25% INJ 100 ML IV SCH ×2 (08:15→19:49)
[2017-12-01] MEDS: ARTIFICIAL TEARS OPTH SOLN 15 ML BTL EACH EYE SCH ×3 (08:15→15:15)
[2017-12-01] MEDS: SODIUM CHLORIDE 0.9% FLUSH 10 ML FLUSH IV FLUSH SCH ×2 (08:16→20:11)
[2017-12-01] MEDS: COLLAGENASE OINT 30 GM TUBE TOPICAL SCH (08:16)
[2017-12-01] MEDS: FUROSEMIDE 40 MG/4 ML VIAL IV PUSH SCH ×2 (08:16→18:08)
[2017-12-01] MEDS: DOCUSATE SODIUM 50 MG/SENNA 8.6 MG TAB PO SCH ×2 (08:16→20:11)
--- NOTE | 2017-12-01 08:46 | HHI.CCPN ---
Subjective Remarks/Hospital Course This is a 47-year-old male with a history of prior stroke who presented from long-term facility by EMS for acute altered mental status. Per EMS reports, he was in his normal state of health last night and then with his reevaluated by the nursing staff and was a GCS of 3 with room air sats of 79%. Of note by the ED physician, the patient had pink frothy sputum on admission to the ER. He was emergently intubated by the emergency department. He has a chest x-ray which demonstrates bilateral infiltrates consistent with pulmonary edema. He has a BNP which is severely elevated at 1300. He has a elevated creatinine suggestive of acute kidney injury with an unknown baseline. Per report he has been treated for an MRSA skin infection. He is afebrile with a normal white count. Critical care medicine is consulted to evaluate manage his acute encephalopathy, multiorgan dysfunction. No additional information is available from the patient due to his severe encephalopathy. SUBJ 11/29: Remains intubated sedated with propofol for vent synchrony. According to RN he did follow commands upper extremities when sedation held. Chest exam reveals bilateral coarse rhonchi, crackles. CXR pending at this time 11/30: remains intubated. cxr with bilateral infiltrates again suggestive of volume overload. 12/01: T-max 100.6. Creatinine and change the patient continues to be positive with fluid, will follow up nephrology's recommendations regarding continued albumin and/Lasix therapy. Hemoglobin stable this a.m. at 7.9. Plan for CT of the abdomen and pelvis for possible source. Stool Hemoccult still pending. Consult ID , appreciate recommendations. Follow-up with podiatry concern for osteomyelitis. Plan for possible I&D bilateral foot ulcers today. Objective Vital Signs Date Time Temp Pulse Resp B/P (MAP) Pulse Ox O2 Delivery O2 Flow Rate FiO2 12/01/17 07:55 100 40 12/01/17 06:00 66 12/01/17 04:00 98.1 20 106/62 (77) 11/28/17 05:29 Ventilator Intake and Output 12/01/17 12/01/17 12/02/17 08:00 16:00 00:00 Intake Total 1364 ml Output Total 1325 ml Balance 39 ml Result Diagram: 12/01/17 0325 12/01/17 0325 Other Results Microbiology Date/Time Source Procedure Growth Status 11/28/17 10:09 Sputum Endotracheal Gram Stain - Final Complete 11/28/17 10:09 Sputum Culture - Final Klebsiella Pneumoniae Esbl Pos Complete Imaging Last Impressions Chest X-Ray 11/30/17 0600 Signed Impressions: CONCLUSION: Patchy areas of increased density related to areas of consolidation or atelecta sis. Renal Ultrasound 11/28/17 0000 Signed Impressions: CONCLUSION: 1. Echogenic kidneys consistent with medical renal disease. 2. No obstructive uropathy. Head CT 11/28/17 0000 Signed Impressions: CONCLUSION: 1. No acute hemorrhage or mass effect. 2. Large area of encephalomalacia involving the right frontal and parietal lob e. 3. Chronic sinusitis. Brain MRI 11/28/17 0000 Signed Impressions: CONCLUSION: 1. Large area of encephalomalacia in the right medial frontal parietal high co nvexities extending to the vertex. 2. No evidence for acute abnormality. Specifically, no acute infarction, hemor rhage or hydrocephalus. 3. Paranasal sinus mucosal disease. Objective Remarks GENERAL: This is a -[place] middle-age male well-developed well- nourished who appears much older than stated age, lying in bed, intubated, sedated with propofol HEENT: Normocephalic. Atraumatic. Pupils equal, round, reactive, conjugate. Orotracheally intubated NECK: Trachea is midline. Positive JVD CHEST: Intubated with an 8.0 ET tube. Equal chest rise. PRVC. 40% FiO2. Bilateral coarse rhonchi and crackles CARDIOVASCULAR: Normal rate, regular rhythm. Appears sinus by telemetry. ABDOMEN: Soft, nontender, nondistended. No guarding. MUSCULOSKELETAL: Pulses 2+. 2+ peripheral edema B/L upper and lower extremity NEUROLOGICAL: Intubated sedated with propofol. Weakly withdraws to pain. Positive corneals. Positive cough. Positive gag. (Does follow commands to RN when sedation was held) A/P Assessment and Plan Assessment: 47-year-old male with prior stroke who presents with severe acute congestive heart failure exacerbation, unknown type, with associated acute hypoxic and hypercarbic respiratory failure, acute metabolic encephalopathy, acute kidney injury. Remains critically ill. still awaiting echo to determine ventricular function. still appears cardiac in origin and not infectious. remains afebrile with normal wbc count. remains very critically ill with minimal if any improvement over last 48h. off pathway. Plan by systems: Neurologic: Acute metabolic encephalopathy History of prior CVA MRI-old frontoparietal encephalomalacia, no acute findings EEG-generalized slowing without seizures Frequent neurochecks Propofol for goal RASS -2, Avoid long-acting sedatives. daily sedation vacation Tox screen, UDS positive only for benzodiazepines Check ammonia TSH. B12 normal Respiratory: Acute hypoxic and hypercarbic respiratory failure Severe acute pulmonary edema Vent bundle, Head of bed elevated Nebs every 6 hours scheduled and as needed Continue CPAP trials Wean FiO2 for goal SPO2 greater than 90% Cardiovascular: Acute severe congestive heart failure exacerbation, unknown type Mildly Elevated troponin Lasix 80 mg IV 1 given 11/29, now scheduled Lasix 40 every 12 with IV albumin 12/01 2D echo pending at this time. Patient has severe anemia with a hemoglobin of 5.9 , status post transfusion 2 units of packed cells, continue to monitor H&H Hold off on aspirin given severe anemia Renal: Acute kidney injury superimposed on chronic renal insufficiency with an unknown baseline Likely secondary to venous congestion from CHF Continue Dudley Diuresis as above Renal ultrasound: no obstruction or hydro FENa on admission 3.7% (unknown if on chronic lasix) FEUrea on admission 47.3%- suggestive of intrinsic renal disease. urine eosinophils negative -Strict I/Os -Nephrology consulted anticipating hemodialysis for fluid removal and possible uremia if renal function gets worse with forced diuresis FEN/GI: Acute intravascular volume overload Diuresis as above Tube feeds with Nepro Obtain CT of the abdomen and pelvis Heme/ID: Severe anemia, likely secondary to chronic disease s/p 2 unit PRBCs on 11/28 Holding anticoagulation until etiology is determined Iron studies: low iron, low TIBC, high ferritin. suggests chronic disease as a cause. Daily CBC Pro calcitonin 1.4 intermediate risk. blood cultures 11/28 GPCs in 2/ bottles sputum culture 11/28 GNR- ESBL 11/25 consult ID-appreciate recommendations Check stool for Hemoccult and follow-up CT of the abdomen and pelvis Endocrine: Hyperglycemia of critical illness Diabetes Glucose monitoring per ICU protocol -- SSI Prophylaxis: GI Prophylaxis IV PPI- BID DVT Prophylaxis -- SCDs Holding pharmacologic DVT prophylaxis in the setting of severe anemia Lines: Peripheral IVs Dudley Dispo: Continue ICU. Very critically ill. This patient remains critically ill with one or more organ systems which are or may become a threat to life. I have spent in excess of 31 minutes discontinuously in the care and management of this patient. This time is exclusive of procedures, and includes, but is not limited to, evaluation of the patient, review of the medical record, discussions with family, consultants, nursing staff, or respiratory therapy, and documentation in the medical record. Physician Tata Avila MD December 01, 2017 08:46
[2017-12-01] MEDS ORDERED: DIATRIZOATE MEGLUM/DIATRIZOATE SOD 9 ML CUP PO ONE (09:45)
--- NOTE | 2017-12-01 10:59 | HHI.NPPN ---
Subjective History of Present Illness 47 year old with CVA with disability, DM ,HTN ,CKD intubated, CHF, gr neg in sputum, foot ulcers Objective Data Data Vital Signs Date Time Temp Pulse Resp B/P (MAP) Pulse Ox O2 Delivery O2 Flow Rate FiO2 12/01/17 10:30 66 12/01/17 10:01 66 12/01/17 10:00 66 12/01/17 09:30 68 12/01/17 09:30 68 18 132/77 (95) 100 12/01/17 09:00 67 12/01/17 09:00 67 18 123/72 (89) 100 12/01/17 08:30 68 12/01/17 08:30 68 18 121/74 (90) 100 12/01/17 08:00 40 12/01/17 08:00 98.4 68 18 123/73 (90) 100 12/01/17 08:00 68 12/01/17 07:55 100 40 12/01/17 06:00 66 12/01/17 04:00 40 12/01/17 04:00 98.1 68 20 106/62 (77) 100 12/01/17 04:00 68 12/01/17 03:14 100 40 12/01/17 02:00 68 12/01/17 00:00 70 12/01/17 00:00 40 12/01/17 00:00 98.7 70 18 111/58 (75) 100 11/30/17 23:30 100 40 11/30/17 22:00 72 11/30/17 20:04 100 40 11/30/17 20:00 100.6 74 18 117/58 (77) 100 11/30/17 20:00 74 11/30/17 20:00 40 11/30/17 19:30 74 11/30/17 19:00 74 11/30/17 18:30 74 11/30/17 18:00 74 11/30/17 17:17 100 40 11/30/17 17:00 74 18 108/60 (76) 100 11/30/17 16:30 74 11/30/17 16:30 74 18 103/58 (73) 100 11/30/17 16:00 40 11/30/17 16:00 74 11/30/17 16:00 74 18 102/56 (71) 100 11/30/17 15:30 73 18 103/58 (73) 100 11/30/17 15:30 73 11/30/17 15:00 73 24 103/57 (72) 100 11/30/17 15:00 73 11/30/17 14:45 98.9 74 18 102/56 100 11/30/17 14:30 72 21 100/56 (71) 100 11/30/17 14:30 72 11/30/17 14:29 99.8 72 19 100/56 100 11/30/17 14:00 72 11/30/17 14:00 72 22 100/57 (71) 100 11/30/17 13:44 40 11/30/17 13:43 100 40 11/30/17 13:30 71 19 102/59 (73) 100 11/30/17 13:30 71 11/30/17 13:00 70 18 116/57 (76) 100 11/30/17 13:00 70 11/30/17 12:30 70 11/30/17 12:30 70 18 105/55 (72) 100 11/30/17 12:02 100 40 11/30/17 12:00 40 11/30/17 12:00 98.9 70 18 103/58 (73) 100 11/30/17 12:00 70 11/30/17 11:30 70 11/30/17 11:00 69 -: 12/01/17 0325 12/01/17 0325 Physical Exam General Appearance: Well Developed Neck Neck Exam: Neck Supple Pulmonary Resp Exam: Decreased Bases Cardiology CV Exam: Regular, Normal Sinus Rhythm Gastrointestinal/Abdomen GI Exam: Soft, Non-Tender, Bowel Sounds Present Integumentary Skin Exam: Ulcer(s) Extremeties Extremities Exam: Trace Edema Assessment/Plan Problem List: (1) Acute renal failure ICD Codes: N17.9 - Acute kidney failure, unspecified Plan: baseline creatinine was high back in August 2.1 He is responding to Lasix/albumin staff questioned albumin it was used due to decrease oncotic pressure due to poor albumin and 3 rd spacing, explained it helps to mobilize fluid from extravascular space to intravascular space and then diuretic works better may dc by Sunday as he is septic now with ESBL Klebsiella ID consult pending creatinine stable 2.4 UOP 2.1 L avoid nephrotoxins if possible (2) CKD (chronic kidney disease) stage 3, GFR 30-59 ml/min ICD Codes: N18.3 - Chronic kidney disease, stage 3 (moderate) Plan: long standing diabetes and this is likely causing CKD follow MELCHOR,SPEP C3 C4 negative (3) Diabetes ICD Codes: E11.9 - Type 2 diabetes mellitus without complications Status: Chronic Plan: Continue to monitor (4) Pneumonia ICD Codes: J18.9 - Pneumonia, unspecified organism Plan: on Charla Gambino (5) CHF (congestive heart failure) ICD Codes: I50.9 - Heart failure, unspecified Plan: on Felton Mcdaniel MD December 01, 2017 10:59
--- NOTE | 2017-12-01 11:36 | PD.CONS ---
History of Present Illness Service Infectious disease Consult Requested By Dr. Garcia Reason for Consult Evaluate patient with ESBL positive organism in the sputum, assist with management Primary Care Physician Unknown Diagnoses: History of Present Illness Patient seen and examined. Records reviewed. Patient is a 47-year-old male, who is a resident of the long term, with history of CVA, brought into the hospital for decreased level of consciousness, decreased oxygen saturation. In the ED he was noted to have some pink frothy sputum. He was emergently intubated. His chest x-ray showed bilateral pulmonary infiltrates consistent with pulmonary edema. 2 blood cultures were done in the emergency room, and they are both growing staph hominis. Sputum culture also is now reported as growing Klebsiella ESBL positive. His chest x- ray has shown some worsening of his infiltrates. He was also found to have acute kidney injury. Patient is being managed for pulmonary edema, as well as sepsis. He has been getting vancomycin as well as Zosyn. He was initially febrile on his first hospital day, but that has improved. Patient's white count has been normal. Patient remains on the respirator. He has good urine output, but his creatinine remains elevated. There is no evidence of obstruction on his renal ultrasound. CT of the abdomen and pelvis are showing chronic changes of encephalomalacia compatible with his prior history of CVA. Infectious disease consultation has been requested to evaluate the patient. 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 Dysphagia with feeding tube placement History of psychiatric disorder Depression High cholesterol Hiatal hernia Past Surgical History Has prior sternotomy, no details known Has a PEG in place Active Ordered Medications Current Medications Medications (Trade) Dose Ordered Sig/Arthur Route Start Time Stop Time Status Last Admin (Brethine Inj) 1 mg UNSCH PRN SQ 11/28/17 05:30 (NS Flush) 2 ml UNSCH PRN IV FLUSH 11/28/17 05:45 (NS Flush) 2 ml BID IV FLUSH 11/28/17 09:00 12/01/17 08:16 (Tylenol) 650 mg Q6H PRN PO 11/28/17 05:45 11/30/17 21:10 (Tears Naturale Opth Soln) 1 drop TID EACH EYE 11/28/17 09:00 12/01/17 08:15 (Zofran Inj) 4 mg Q6H PRN IV PUSH 11/28/17 05:45 (Duoneb Neb) 1 ampule Q2HR NEB PRN INH 11/28/17 05:45 11/29/17 08:16 ([facility] Nursing Information) 1 Q361D XX 11/28/17 05:45 (Chlorhexidine 2% Cloth) 3 pack Taper DAILY@04 TOP 11/29/17 04:00 11/25/18 03:59 12/01/17 04:38 (Chlorhexidine 2% Cloth) 3 pack UNSCH PRN TOP 11/28/17 05:45 (Jessie-Colace) 1 tab BID PO 11/28/17 09:00 12/01/17 08:16 (Milk Of Magnesia Liq) 30 ml Q12H PRN PO 11/28/17 05:45 (Senokot) 17.2 mg Q12H PRN PO 11/28/17 05:45 (Dulcolax Supp) 10 mg DAILY PRN RECTAL 11/28/17 05:45 (Lactulose Liq) 30 ml DAILY PRN PO 11/28/17 05:45 (D50w (Vial) Inj) 25 ml UNSCH PRN IV PUSH 11/28/17 06:15 (NovoLIN R SUPPLEMENTAL SCALE) 1 Q6HR SQ 11/28/17 12:00 11/30/17 18:00 (Protonix Inj) 40 mg Q12H IV PUSH 11/28/17 12:00 11/30/17 22:23 Propofol 100 ml @ 2.7 mls/hr TITRATE PRN IV 11/28/17 14:15 12/01/17 11:22 (Duoneb Neb) 1 ampule Q6HR NEB NEB 11/29/17 10:00 12/01/17 08:00 (Lasix Inj) 40 mg BID@,18 IV PUSH 11/29/17 09:00 12/02/17 07:00 12/01/17 08:16 Albumin Human 100 ml @ 60 mls/hr Q12H IV 11/29/17 08:30 12/02/17 07:00 12/01/17 08:15 Piperacillin Sod/ Tazobactam Sod 100 ml @ 200 mls/hr Q6H IV 11/30/17 00:15 12/01/17 05:52 Pharmacy Profile Note 0 ml @ 0 mls/hr UNSCH OTHER 11/30/17 08:30 (Santyl Oint) 1 applic DAILY TOPICAL 12/01/17 09:00 12/01/17 08:16 Family History Not known Social History Came from the long term No smoking No mention of alcohol abuse or drug use Physical Exam Vital Signs Vital Signs Date Time Temp Pulse Resp B/P (MAP) Pulse Ox O2 Delivery O2 Flow Rate FiO2 12/01/17 10:30 66 12/01/17 10:01 66 12/01/17 10:00 66 12/01/17 09:30 68 12/01/17 09:30 68 18 132/77 (95) 100 12/01/17 09:00 67 12/01/17 09:00 67 18 123/72 (89) 100 12/01/17 08:30 68 12/01/17 08:30 68 18 121/74 (90) 100 12/01/17 08:00 40 12/01/17 08:00 98.4 68 18 123/73 (90) 100 12/01/17 08:00 68 12/01/17 07:55 100 40 12/01/17 06:00 66 12/01/17 04:00 40 12/01/17 04:00 98.1 68 20 106/62 (77) 100 12/01/17 04:00 68 12/01/17 03:14 100 40 12/01/17 02:00 68 12/01/17 00:00 70 12/01/17 00:00 40 12/01/17 00:00 98.7 70 18 111/58 (75) 100 11/30/17 23:30 100 40 11/30/17 22:00 72 11/30/17 20:04 100 40 11/30/17 20:00 100.6 74 18 117/58 (77) 100 11/30/17 20:00 74 11/30/17 20:00 40 11/30/17 19:30 74 11/30/17 19:00 74 11/30/17 18:30 74 11/30/17 18:00 74 11/30/17 17:17 100 40 11/30/17 17:00 74 18 108/60 (76) 100 11/30/17 16:30 74 11/30/17 16:30 74 18 103/58 (73) 100 11/30/17 16:00 40 11/30/17 16:00 74 11/30/17 16:00 74 18 102/56 (71) 100 11/30/17 15:30 73 18 103/58 (73) 100 11/30/17 15:30 73 11/30/17 15:00 73 24 103/57 (72) 100 11/30/17 15:00 73 11/30/17 14:45 98.9 74 18 102/56 100 11/30/17 14:30 72 21 100/56 (71) 100 11/30/17 14:30 72 11/30/17 14:29 99.8 72 19 100/56 100 11/30/17 14:00 72 11/30/17 14:00 72 22 100/57 (71) 100 11/30/17 13:44 40 11/30/17 13:43 100 40 11/30/17 13:30 71 19 102/59 (73) 100 11/30/17 13:30 71 11/30/17 13:00 70 18 116/57 (76) 100 11/30/17 13:00 70 11/30/17 12:30 70 11/30/17 12:30 70 18 105/55 (72) 100 11/30/17 12:02 100 40 11/30/17 12:00 40 11/30/17 12:00 98.9 70 18 103/58 (73) 100 11/30/17 12:00 70 Physical Exam GENERAL: Patient is a well-nourished, well-developed male, sedated on the respirator, not in respiratory distress. SKIN: Warm and dry. No generalized rash HEAD: Atraumatic. Normocephalic. No temporal wasting, or tenderness. EYES: Pale conjunctiva. No petechia or hemorrhage. Pupils equal, round and reactive to light. No scleral icterus. No injection or drainage. EARS, NOSE AND THROAT: Nose without bleeding or purulent nasal discharge. He is orally intubated. NECK: Trachea midline. Supple and not tender, no meningeal signs CARDIOVASCULAR: Regular rate and rhythm. Limited exam due to the diffuse rhonchi RESPIRATORY: Bilateral diffuse rhonchi ABDOMEN: Soft, mildly distended, no reaction to palpation, no guarding. Bowel sounds present and normoactive. EXTREMITIES: No clubbing, cyanosis. Has edema of both hands. No pedal edema. Has some superficial wounds on both lateral feet with no evidence of infection. Well perfused and warm. NEUROLOGICAL: Sedated on the vent. PSYCHIATRIC: Unable to assess. LINE: No evidence of infection : Uddley catheter in place, urine looks clear Laboratory Laboratory Tests Test 12/01/17 03:25 White Blood Count 4.9 Red Blood Count 2.59 Hemoglobin 7.9 Hematocrit 22.8 Mean Corpuscular Volume 88.1 Mean Corpuscular Hemoglobin 30.5 Mean Corpuscular Hemoglobin Concent 34.6 Red Cell Distribution Width 13.9 Platelet Count 133 Mean Platelet Volume 8.9 Blood Urea Nitrogen 81 Creatinine 2.40 Random Glucose 143 Calcium Level 7.5 Sodium Level 140 Potassium Level 3.7 Chloride Level 104 Carbon Dioxide Level 24.6 Anion Gap 11 Estimat Glomerular Filtration Rate 35 Random Vancomycin Level 31.5 Date/Time Source Procedure Growth Status 11/28/17 05:10 Blood Peripheral Aerobic Blood Culture - Final Staphylococcus Hominis-Hominis Resulted 11/28/17 05:10 Blood Peripheral Anaerobic Blood Culture - Preliminary NO GROWTH IN 3 DAYS Resulted 11/28/17 10:09 Sputum Endotracheal Gram Stain - Final Complete 11/28/17 10:09 Sputum Culture - Final Klebsiella Pneumoniae Esbl Pos Complete 11/28/17 05:10 Urine Random Urine Urine Culture - Final NO GROWTH IN 48 HOURS. Complete Result Diagram: 12/01/17 0325 12/01/17 0325 Imaging RADIOLOGY STUDIES/FILMS REVIEWED Last Impressions Chest X-Ray 11/30/17 0600 Signed Impressions: CONCLUSION: Patchy areas of increased density related to areas of consolidation or atelecta sis. Renal Ultrasound 11/28/17 0000 Signed Impressions: CONCLUSION: 1. Echogenic kidneys consistent with medical renal disease. 2. No obstructive uropathy. Head CT 11/28/17 0000 Signed Impressions: CONCLUSION: 1. No acute hemorrhage or mass effect. 2. Large area of encephalomalacia involving the right frontal and parietal lob e. 3. Chronic sinusitis. Brain MRI 11/28/17 0000 Signed Impressions: CONCLUSION: 1. Large area of encephalomalacia in the right medial frontal parietal high co nvexities extending to the vertex. 2. No evidence for acute abnormality. Specifically, no acute infarction, hemor rhage or hydrocephalus. 3. Paranasal sinus mucosal disease. Assessment and Plan Assessment and Plan IMPRESSION Klebsiella ESBL+ in sputum with bilateral infiltrates - has CHF and likely with PNA (?Aspiration, came in with decreased LOC) CHF Respiratory failure Acute kidney injury (+) BC with Staph hominis, ?source Hx CVA SNF resident RECOMMENDATION Repeat 2 blood cultures Continue Vanco, pharmacy following Stop Zosyn IV Invanz Await echo Follow cultures Monitor progress I will determine course of antibiotic once workup is completed I will follow along with you Thank you for this consultation Discussed Condition With Discussed with Sharlene Cuevas MD December 01, 2017 11:36
[2017-12-01] MEDS: PANTOPRAZOLE SODIUM 40 MG VIAL IV PUSH SCH ×2 (11:50→23:21)
[2017-12-01] MEDS ORDERED: ASP: Documented ESBL, MDR A baumannii or P. aeruginosa PRN (12:00)
[2017-12-01] MEDS ORDERED: PHARMACY INFORMATION XX PRN (12:00)
[2017-12-01] MEDS ORDERED: ERTAPENEM INJ 500 MG in SODIUM CHLORIDE 0.9% INJ 100 ML IV SCH (13:00)
[2017-12-01] MEDS: ERTAPENEM INJ 500 MG in SODIUM CHLORIDE 0.9% INJ 100 ML IV SCH (13:58)
--- NOTE | 2017-12-01 16:25 | RADRPT ---
EXAM DATE: 12/01/2017 4:14 PM EDT AGE/SEX: 47 years / Male INDICATIONS: Fever. CLINICAL DATA: This is the patient's initial encounter. Patient reports that signs and symptoms have been present for 1 day and indicates a pain score of Nonresponsive. MEDICAL/SURGICAL HISTORY: Hiatal hernia. Hypertension. Diabetes. . G-tube. RADIATION DOSE: 16.49 CTDI (mGy) COMPARISON: No prior [facility] exams available for comparison. TECHNIQUE: Multiple contiguous axial images were obtained through the abdomen. Images were obtained using multiple row detector helical technique. Using dose reduction techniques, radiation dose was ke pt as low as reasonably achievable to obtain optimal diagnostic quality images. FINDINGS: Lower Lungs: Consolidating airspace disease is identified in both lower lobes. There is segmental con solidation on the left. The heart is mildly to moderately enlarged. Liver: The liver is enlarged but otherwise demonstrates homogeneous density. There are no discrete sp armando-occupying lesions. There is no evidence of biliary duct dilatation. Gallbladder is partially tammie apsed. Spleen: Mildly enlarged Pancreas: Unremarkable without mass or calcification. Kidneys: Normal in size and shape. No evidence of mass or hydronephrosis. Adrenal Glands: Calcification is evident in both adrenal glands. There is no evidence of discrete m ass. Aorta: The aorta and proximal iliac vessels are grossly unremarkable without aneurysmal dilation. Bowel/Mesentery: Small amount of ascites is identified. PEG tube is noted in place. There is no evid ence of pathologic distention or free air. There is no significant ileus Abdominal Wall: Intact. Retroperitoneum: No evidence of adenopathy in the retrocrural, para-aortic, or deep pelvic regions. Bladder: Dudley catheter is in place. Reproductive Organs: No abnormal masses or calcifications seen. Inguinal: Enlarged lymph nodes are identified in both inguinal regions. Largest measures 2.9 cm and is located on the right. Bony Structures: Reticular calcification is identified surrounding the left hip joint. There appears to be a synovial thickening and joint effusion. The hip joint otherwise appears intact without evide nce of acute fracture. CONCLUSION: 1. Bibasilar consolidating lung infiltrate 2. Hepatosplenomegaly 3. Calcified adrenal glands. 4. Trace ascites. 5. PEG tube and Dudley catheter in place. 6. Inguinal lymphadenopathy. 7. Calcific arthropathy of the left hip. 8. No acute intestinal abnormality hydronephrosis or suspicious abdominopelvic masses. Electronically signed by: Balbir Garcia MD 12/01/2017 4:24 PM EDT
[2017-12-02] VITALS (30 sets, daily range): BP systolic 115–167; BP diastolic 67–77; PULSE 66–77; RESP 14–35; TEMP 98.3–98.7; O2SAT 100
[2017-12-02] MEDS: PROPOFOL 1000 MG/100 ML IV PRN ×5 (01:58→23:33)
[2017-12-02] MEDS: RESP: ALBUTEROL 2.5 MG/IPRATROPIUM 0.5 MG NEB (SCH) NEB ×4 (03:39→21:02)
[2017-12-02] MEDS: CHLORHEXIDINE GLUCONATE 2 % 1 PACK (2 CLOTHS) TOP SCH (04:00)
--- NOTE | 2017-12-02 05:23 | RADRPT ---
EXAM DATE: 12/02/2017 4:50 AM EDT AGE/SEX: 47 years / Male INDICATIONS: Shortness of breath, possible pulmonary disease. CLINICAL DATA: This is the patient's subsequent encounter. Patient reports that signs and symptoms h ave been present for 4 - 6 days and indicates a pain score of Nonresponsive. MEDICAL/SURGICAL HISTORY: Diabetes mellitus type II. Hypertension. Stroke. CABG. [place] [facility] [place]. . FINDINGS: Mild right and moderate left patchy air space consolidation again noted, not significantly changed. A small left pleural effusion is likely. No pneumothorax. Heart size stable, within normal limits. Patient has had previous median sternotomy. Endotracheal tube tip approximately 4 cm above the luz maria, unchanged. CONCLUSION: No significant change. Left greater than right parenchymal consolidation and small left pleural effus ion again noted. Electronically signed by: Paul Smith MD 12/02/2017 5:21 AM EDT
[2017-12-02] MEDS: INSULIN NovoLIN REGULAR SUPPLEMENTAL SCALE SQ SCH ×4 (05:36→23:20)
[2017-12-02 06:40] LABS: AUTOMATED NEUTROPHIL # 3.9 TH/MM3 (1.8-7.7); BASOPHIL % 0.3 % (0.0-2.0); EOSINOPHIL # 0.1 TH/MM3 (0-0.4); HEMATOCRIT 24.4 % (39.0-51.0); HEMOGLOBIN 8.4 GM/DL (13.0-17.0); LYMPH % 14.5 % (9.0-44.0); LYMPHOCYTE # 0.8 TH/MM3 (1.0-4.8); MEAN CELL VOLUME 88.2 FL (80.0-100.0); MEAN CORPUSCULAR HEMOGLOBIN 30.3 PG (27.0-34.0); MEAN CORPUSCULAR HGB CONC 34.4 % (32.0-36.0); MEAN PLATELET VOLUME 8.8 FL (7.0-11.0); MONO % 10.4 % (0.0-8.0); MONOCYTE # 0.6 TH/MM3 (0-0.9); NEUT % 73.8 % (16.0-70.0); PLATELET COUNT 150 TH/MM3 (150-450); RED BLOOD COUNT 2.77 MIL/MM3 (4.50-5.90); RED CELL DISTRIBUTION WIDTH 14.2 % (11.6-17.2); WHITE BLOOD COUNT 5.3 TH/MM3 (4.0-11.0)
[2017-12-02 07:11] LABS: ALKALINE PHOSPHATASE 104 U/L (45-117); ALT (GPT) 41 U/L (12-78); AST (GOT) 92 U/L (15-37); BICARBONATE 25.7 MEQ/L (21.0-32.0); BLOOD UREA NITROGEN 70 MG/DL (7-18); CALCIUM 7.9 MG/DL (8.5-10.1); CHLORIDE 103 MEQ/L (98-107); CREATININE 2.15 MG/DL (0.60-1.30); GLOMERULAR FILTRATION RATE 40 ML/MIN (>89); GLUCOSE,RANDOM 161 MG/DL (74-106); RANDOM VANCOMYCIN 23.8 COMMENT; SODIUM (NA) 140 MEQ/L (136-145); TOTAL BILIRUBIN ADULT 0.9 MG/DL (0.2-1.0); TOTAL PROTEIN 7.7 GM/DL (6.4-8.2)
[2017-12-02] MEDS: SODIUM CHLORIDE 0.9% FLUSH 10 ML FLUSH IV FLUSH SCH ×2 (07:20→22:37)
[2017-12-02] MEDS: DOCUSATE SODIUM 50 MG/SENNA 8.6 MG TAB PO SCH ×2 (07:20→21:00)
[2017-12-02] MEDS: COLLAGENASE OINT 30 GM TUBE TOPICAL SCH (09:00)
[2017-12-02] MEDS: ARTIFICIAL TEARS OPTH SOLN 15 ML BTL EACH EYE SCH ×3 (11:00→19:36)
--- NOTE | 2017-12-02 11:52 | HHI.NPPN ---
Subjective History of Present Illness 47 year old with CVA with disability, DM ,HTN ,CKD intubated, CHF, gr neg in sputum, foot ulcers Objective Data Data Vital Signs Date Time Temp Pulse Resp B/P (MAP) Pulse Ox O2 Delivery O2 Flow Rate FiO2 12/02/17 08:31 40 12/02/17 08:24 100 40 12/02/17 06:00 68 12/02/17 04:06 100 40 12/02/17 04:00 98.7 69 18 129/74 (92) 100 12/02/17 04:00 40 12/02/17 04:00 69 12/02/17 02:00 66 12/02/17 01:50 100 40 12/02/17 00:00 66 12/02/17 00:00 40 12/02/17 00:00 98.7 66 18 123/71 (88) 100 12/01/17 22:14 100 40 12/01/17 22:00 68 12/01/17 20:00 74 12/01/17 20:00 98.9 74 18 126/68 (87) 100 12/01/17 20:00 40 12/01/17 19:59 100 40 12/01/17 18:30 67 12/01/17 18:16 68 12/01/17 18:16 68 18 103/62 (76) 100 12/01/17 18:00 99.1 69 18 103/62 (76) 100 12/01/17 18:00 69 12/01/17 17:00 73 12/01/17 17:00 73 31 100 12/01/17 16:17 74 12/01/17 16:17 74 20 105/55 (72) 91 12/01/17 16:13 74 12/01/17 16:13 74 113/58 (76) 92 12/01/17 16:00 96 100 12/01/17 16:00 68 33 115/55 (75) 92 12/01/17 16:00 68 12/01/17 16:00 100 12/01/17 15:32 93 40 12/01/17 14:00 66 12/01/17 13:00 67 18 126/79 (95) 96 12/01/17 13:00 67 12/01/17 12:30 98.6 67 19 115/71 (86) 100 12/01/17 12:30 67 12/01/17 12:00 67 12/01/17 12:00 40 12/01/17 12:00 67 18 122/71 (88) 100 12/01/17 11:59 96 40 -: 12/02/17 0430 12/02/17 0430 Microbiology 12/02/17 Aerobic Blood Culture, Received Pending 12/02/17 Anaerobic Blood Culture, Received Pending 12/01/17 Aerobic Blood Culture - Preliminary, Resulted NO GROWTH IN 1 DAY 12/01/17 Anaerobic Blood Culture - Preliminary, Resulted NO GROWTH IN 1 DAY 12/01/17 Aerobic Blood Culture - Preliminary, Resulted NO GROWTH IN 1 DAY 12/01/17 Anaerobic Blood Culture - Preliminary, Resulted NO GROWTH IN 1 DAY 12/01/17 Stool Occult Blood (MADALYN) - Final, Complete HEMOCCULT NEGATIVE Physical Exam General Appearance: Well Developed Neck Neck Exam: Neck Supple Pulmonary Resp Exam: Decreased Bases Cardiology CV Exam: Regular, Normal Sinus Rhythm Gastrointestinal/Abdomen GI Exam: Soft, Non-Tender, Bowel Sounds Present Integumentary Skin Exam: Ulcer(s) Extremeties Extremities Exam: Trace Edema Assessment/Plan Problem List: (1) Acute renal failure ICD Codes: N17.9 - Acute kidney failure, unspecified Plan: baseline creatinine was high back in August 2.1 as he is septic now with ESBL Klebsiella ID following on Invanz Off Lasix and albumin K low replace creatinine stable 2.1 UOP 2.9 L avoid nephrotoxins if possible (2) CKD (chronic kidney disease) stage 3, GFR 30-59 ml/min ICD Codes: N18.3 - Chronic kidney disease, stage 3 (moderate) Plan: long standing diabetes and this is likely causing CKD follow MELCHOR,SPEP C3 C4 negative (3) Diabetes ICD Codes: E11.9 - Type 2 diabetes mellitus without complications Status: Chronic Plan: Continue to monitor (4) Pneumonia ICD Codes: J18.9 - Pneumonia, unspecified organism Plan: on Zosyn receive Vanco (5) CHF (congestive heart failure) ICD Codes: I50.9 - Heart failure, unspecified Plan: on Lasix Felton Kiser MD December 02, 2017 11:52
[2017-12-02] MEDS ORDERED: POTASSIUM CHLOR 20 MEQ PREMIX 100 ML IV ONE (12:00)
[2017-12-02] MEDS: PANTOPRAZOLE SODIUM 40 MG VIAL IV PUSH SCH ×2 (12:42→23:16)
[2017-12-02] MEDS: ERTAPENEM INJ 500 MG in SODIUM CHLORIDE 0.9% INJ 100 ML IV SCH (12:43)
--- NOTE | 2017-12-02 13:13 | HHI.PR ---
Subjective Remarks Patient seen bedside. Patient intubated. Nurse present bedside. Objective Vital Signs Date Time Temp Pulse Resp B/P (MAP) Pulse Ox O2 Delivery O2 Flow Rate FiO2 12/02/17 12:30 69 12/02/17 12:00 98.4 68 19 133/77 (95) 100 12/02/17 12:00 68 12/02/17 11:31 68 12/02/17 11:31 68 19 128/75 (92) 100 12/02/17 11:00 68 12/02/17 11:00 68 24 125/73 (90) 100 12/02/17 10:30 69 35 127/73 (91) 100 12/02/17 10:30 69 12/02/17 10:00 40 12/02/17 10:00 71 31 132/73 (92) 100 12/02/17 10:00 71 12/02/17 09:30 71 24 129/74 (92) 100 12/02/17 09:30 71 12/02/17 09:00 69 12/02/17 09:00 69 23 116/73 (87) 100 12/02/17 08:31 40 12/02/17 08:30 67 12/02/17 08:30 67 14 122/68 (86) 100 12/02/17 08:24 100 40 12/02/17 08:00 66 12/02/17 08:00 98.3 66 19 167/72 (103) 100 12/02/17 06:00 68 12/02/17 04:06 100 40 12/02/17 04:00 98.7 69 18 129/74 (92) 100 12/02/17 04:00 40 12/02/17 04:00 69 12/02/17 02:00 66 12/02/17 01:50 100 40 12/02/17 00:00 66 12/02/17 00:00 40 12/02/17 00:00 98.7 66 18 123/71 (88) 100 12/01/17 22:14 100 40 12/01/17 22:00 68 12/01/17 20:00 74 12/01/17 20:00 98.9 74 18 126/68 (87) 100 12/01/17 20:00 40 12/01/17 19:59 100 40 12/01/17 18:30 67 12/01/17 18:16 68 12/01/17 18:16 68 18 103/62 (76) 100 12/01/17 18:00 99.1 69 18 103/62 (76) 100 12/01/17 18:00 69 12/01/17 17:00 73 12/01/17 17:00 73 31 100 12/01/17 16:17 74 12/01/17 16:17 74 20 105/55 (72) 91 12/01/17 16:13 74 12/01/17 16:13 74 113/58 (76) 92 12/01/17 16:00 96 100 12/01/17 16:00 68 33 115/55 (75) 92 12/01/17 16:00 68 12/01/17 16:00 100 12/01/17 15:32 93 40 12/01/17 14:00 66 I/O 12/01/17 12/01/17 12/01/17 12/02/17 12/02/17 12/02/17 07:00 15:00 23:00 07:00 15:00 23:00 Intake Total 1364 ml 200 ml 1185 ml 200 ml Output Total 1325 ml 950 ml 2001 ml Balance 39 ml 200 ml 235 ml -1801 ml Intake IV Total 1283 ml 200 ml 500 ml 200 ml Tube Feeding 81 ml 445 ml Other 240 ml Output Urine Total 1325 ml 950 ml 2000 ml Stool Total 1 ml # Bowel Movements 1 2 Result Diagram: 12/02/17 0430 12/02/17 0430 Imaging Last Impressions Chest X-Ray 12/02/17 0600 Signed Impressions: CONCLUSION: No significant change. Left greater than right parenchymal consolidation and sm all left pleural effusion again noted. Abdomen/Pelvis CT 12/01/17 0000 Signed Impressions: CONCLUSION: 1. Bibasilar consolidating lung infiltrate 2. Hepatosplenomegaly 3. Calcified adrenal glands. 4. Trace ascites. 5. PEG tube and Dudley catheter in place. 6. Inguinal lymphadenopathy. 7. Calcific arthropathy of the left hip. 8. No acute intestinal abnormality hydronephrosis or suspicious abdominopelvic masses. Renal Ultrasound 11/28/17 0000 Signed Impressions: CONCLUSION: 1. Echogenic kidneys consistent with medical renal disease. 2. No obstructive uropathy. Head CT 11/28/17 0000 Signed Impressions: CONCLUSION: 1. No acute hemorrhage or mass effect. 2. Large area of encephalomalacia involving the right frontal and parietal lob e. 3. Chronic sinusitis. Brain MRI 11/28/17 0000 Signed Impressions: CONCLUSION: 1. Large area of encephalomalacia in the right medial frontal parietal high co nvexities extending to the vertex. 2. No evidence for acute abnormality. Specifically, no acute infarction, hemor rhage or hydrocephalus. 3. Paranasal sinus mucosal disease. Other Results Microbiology Date/Time Source Procedure Growth Status 12/02/17 04:20 Blood Peripheral Aerobic Blood Culture Pending Received 12/02/17 04:20 Blood Peripheral Anaerobic Blood Culture Pending Received 12/01/17 17:30 Stool Stool Stool Occult Blood (MADALYN) - Final HEMOCCULT NEGATIVE Complete 11/28/17 10:09 Sputum Endotracheal Gram Stain - Final Complete 11/28/17 10:09 Sputum Culture - Final Klebsiella Pneumoniae Esbl Pos Complete 11/28/17 05:10 Urine Random Urine Urine Culture - Final NO GROWTH IN 48 HOURS. Complete Objective Remarks Lower extremity physical exam: Vascular: Dorsalis pedis diminished, posterior tibial diminished bilaterally. Capillary refill time within normal limits to digits X5 bilateral foot to digits present. Edema absent bilateral foot Neuro: Gross sensation intact to bilateral lower extremity. Pinpoint sensation unobtainable. No hyperalgesia noted to bilateral lower extremity Dermatology: Normal temperature and turgor to bilateral lower extremity. Right fifth metatarsal head ulceration noted with hyperkeratotic borders and fiber granular base. Left lateral column ulceration noted with hyperkeratotic borders and fibro-granular base. 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 Medications and IVs Current Medications Medications (Trade) Dose Ordered Sig/Arthur Route Start Time Stop Time Status Last Admin (Brethine Inj) 1 mg UNSCH PRN SQ 11/28/17 05:30 (NS Flush) 2 ml UNSCH PRN IV FLUSH 11/28/17 05:45 (NS Flush) 2 ml BID IV FLUSH 11/28/17 09:00 12/02/17 07:20 (Tylenol) 650 mg Q6H PRN PO 11/28/17 05:45 11/30/17 21:10 (Tears Naturale Opth Soln) 1 drop TID EACH EYE 11/28/17 09:00 12/02/17 12:43 (Zofran Inj) 4 mg Q6H PRN IV PUSH 11/28/17 05:45 (Duoneb Neb) 1 ampule Q2HR NEB PRN INH 11/28/17 05:45 11/29/17 08:16 ([facility] [place] [facility] 1 Q361D XX 11/28/17 05:45 (Chlorhexidine 2% Cloth) 3 pack Taper DAILY@04 TOP 11/29/17 04:00 11/25/18 03:59 12/02/17 04:00 (Chlorhexidine 2% Cloth) 3 pack UNSCH PRN TOP 11/28/17 05:45 (Jessie-Colace) 1 tab BID PO 11/28/17 09:00 12/01/17 08:16 (Milk Of Magnesia Liq) 30 ml Q12H PRN PO 11/28/17 05:45 (Senokot) 17.2 mg Q12H PRN PO 11/28/17 05:45 (Dulcolax Supp) 10 mg DAILY PRN RECTAL 11/28/17 05:45 (Lactulose Liq) 30 ml DAILY PRN PO 11/28/17 05:45 12/01/17 11:49 (D50w (Vial) Inj) 25 ml UNSCH PRN IV PUSH 11/28/17 06:15 (NovoLIN R SUPPLEMENTAL SCALE) 1 Q6HR SQ 11/28/17 12:00 12/02/17 05:36 (Protonix Inj) 40 mg Q12H IV PUSH 11/28/17 12:00 12/02/17 12:42 Propofol 100 ml @ 2.7 mls/hr TITRATE PRN IV 11/28/17 14:15 12/02/17 10:59 (Duoneb Neb) 1 ampule Q6HR NEB NEB 11/29/17 10:00 12/02/17 08:24 Pharmacy Profile Note 0 ml @ 0 mls/hr UNSCH OTHER 11/30/17 08:30 (Santyl Oint) 1 applic DAILY TOPICAL 12/01/17 09:00 12/02/17 09:00 Ertapenem 500 mg/ Sodium Chloride 100 ml @ 200 mls/hr Q24H IV 12/01/17 13:00 12/02/17 12:43 Potassium Chloride 100 ml @ 50 mls/hr BOLUS ONCE IV 12/02/17 12:00 12/02/17 13:59 12/02/17 12:42 Assessment and Plan Assessment and Plan 47-year-old male with bilateral foot ulcerations Patient examined and evaluated Bedside debridement performed to bilateral foot Consent obtained and signed Timeout performed prior to this intervention Nurse present for bedside intervention Bilateral foot dressed with Santyl DSD Wound care orders placed to consist of Santyl and moist to dry dressing to bilateral foot ulcerations continue with current wound care dressing Continue to offload No acute signs of infection noted X-rays to rule out OM as ulcers seem to have been present for long period of time No surgical intervention planned or warranted at this time Bedside procedure performed: Once appropriate timeout performed 15 blade was utilized to perform full-thickness excisional debridement to subcutaneous tissue to right sub-met 5 ulceration. Site was dressed with Santyl and DSD. Attention was then directed to the left foot plantar lateral column where a full -thickness excisional debridement to subcutaneous tissue was performed. Site was dressed with Santyl and DSD Lindsay Vo DPM December 02, 2017 13:13
--- NOTE | 2017-12-02 13:34 | HHI.IDPN ---
Subjective Subjective Remarks Patient is a 47-year-old male, who is a resident of the halfway, with history of CVA, brought into the hospital for decreased level of consciousness, decreased oxygen saturation. In the ED he was noted to have some pink frothy sputum. He was emergently intubated. His chest x-ray showed bilateral pulmonary infiltrates consistent with pulmonary edema. 2 blood cultures were done in the emergency room, and they are both growing staph hominis. Sputum culture also is now reported as growing Klebsiella ESBL positive. His chest x- ray has shown some worsening of his infiltrates. He was also found to have acute kidney injury. Patient is being managed for pulmonary edema, as well as sepsis. He has been getting vancomycin as well as Zosyn. He was initially febrile on his first hospital day, but that has improved. Patient's white count has been normal. Patient remains on the respirator. He has good urine output, but his creatinine remains elevated. There is no evidence of obstruction on his renal ultrasound. CT of the abdomen and pelvis are showing chronic changes of encephalomalacia compatible with his prior history of CVA. Infectious disease consultation has been requested to evaluate the patient. Notes reviewed Temps ok On the vent Had beside debridement of foot ulcers No new (+) BC CXR no change CT A/P report noted Echo pending Antibiotics Invanz Current Medications Medications (Trade) Dose Ordered Sig/Arthur Route Start Time Stop Time Status Last Admin (Brethine Inj) 1 mg UNSCH PRN SQ 11/28/17 05:30 (NS Flush) 2 ml UNSCH PRN IV FLUSH 11/28/17 05:45 (NS Flush) 2 ml BID IV FLUSH 11/28/17 09:00 12/02/17 07:20 (Tylenol) 650 mg Q6H PRN PO 11/28/17 05:45 11/30/17 21:10 (Tears Naturale Opth Soln) 1 drop TID EACH EYE 11/28/17 09:00 12/02/17 12:43 (Zofran Inj) 4 mg Q6H PRN IV PUSH 11/28/17 05:45 (Duoneb Neb) 1 ampule Q2HR NEB PRN INH 11/28/17 05:45 11/29/17 08:16 ([facility] [place] [facility] [place] 1 Q361D XX 11/28/17 05:45 (Chlorhexidine 2% Cloth) 3 pack Taper DAILY@04 TOP 11/29/17 04:00 11/25/18 03:59 12/02/17 04:00 (Chlorhexidine 2% Cloth) 3 pack UNSCH PRN TOP 11/28/17 05:45 (Jessie-Colace) 1 tab BID PO 11/28/17 09:00 12/01/17 08:16 (Milk Of Magnesia Liq) 30 ml Q12H PRN PO 11/28/17 05:45 (Senokot) 17.2 mg Q12H PRN PO 11/28/17 05:45 (Dulcolax Supp) 10 mg DAILY PRN RECTAL 11/28/17 05:45 (Lactulose Liq) 30 ml DAILY PRN PO 11/28/17 05:45 12/01/17 11:49 (D50w (Vial) Inj) 25 ml UNSCH PRN IV PUSH 11/28/17 06:15 (NovoLIN R SUPPLEMENTAL SCALE) 1 Q6HR SQ 11/28/17 12:00 12/02/17 05:36 (Protonix Inj) 40 mg Q12H IV PUSH 11/28/17 12:00 12/02/17 12:42 Propofol 100 ml @ 2.7 mls/hr TITRATE PRN IV 11/28/17 14:15 12/02/17 10:59 (Duoneb Neb) 1 ampule Q6HR NEB NEB 11/29/17 10:00 12/02/17 08:24 Pharmacy Profile Note 0 ml @ 0 mls/hr UNSCH OTHER 11/30/17 08:30 (Santyl Oint) 1 applic DAILY TOPICAL 12/01/17 09:00 12/02/17 09:00 Ertapenem 500 mg/ Sodium Chloride 100 ml @ 200 mls/hr Q24H IV 12/01/17 13:00 12/02/17 12:43 Potassium Chloride 100 ml @ 50 mls/hr BOLUS ONCE IV 12/02/17 12:00 12/02/17 13:59 12/02/17 12:42 Lines Last Impressions Chest X-Ray 12/02/17 0600 Signed Impressions: CONCLUSION: No significant change. Left greater than right parenchymal consolidation and sm all left pleural effusion again noted. Abdomen/Pelvis CT 12/01/17 0000 Signed Impressions: CONCLUSION: 1. Bibasilar consolidating lung infiltrate 2. Hepatosplenomegaly 3. Calcified adrenal glands. 4. Trace ascites. 5. PEG tube and Dudley catheter in place. 6. Inguinal lymphadenopathy. 7. Calcific arthropathy of the left hip. 8. No acute intestinal abnormality hydronephrosis or suspicious abdominopelvic masses. Renal Ultrasound 11/28/17 Signed Impressions: CONCLUSION: 1. Echogenic kidneys consistent with medical renal disease. 2. No obstructive uropathy. Head CT 11/28/17 Signed Impressions: CONCLUSION: 1. No acute hemorrhage or mass effect. 2. Large area of encephalomalacia involving the right frontal and parietal lob e. 3. Chronic sinusitis. Brain MRI 11/28/17 Signed Impressions: CONCLUSION: 1. Large area of encephalomalacia in the right medial frontal parietal high co nvexities extending to the vertex. 2. No evidence for acute abnormality. Specifically, no acute infarction, hemor rhage or hydrocephalus. 3. Paranasal sinus mucosal disease. Past Medical History GENERAL: sedated on the vent, not in respiratory distress. SKIN: Warm and dry. No generalized rash HEAD: Atraumatic. Normocephalic. No temporal wasting, or tenderness. EYES: Pale conjunctiva. No petechia or hemorrhage. Pupils equal, round and reactive to light. No scleral icterus. No injection or drainage. EARS, NOSE AND THROAT: Nose without bleeding or purulent nasal discharge. He is orally intubated. NECK: Trachea midline. Supple and not tender, no meningeal signs CARDIOVASCULAR: Regular rate and rhythm. Limited exam due to the diffuse rhonchi RESPIRATORY: Bilateral diffuse rhonchi ABDOMEN: Soft, mildly distended, no reaction to palpation, no guarding. Bowel sounds present and normoactive. EXTREMITIES: No clubbing, cyanosis. Has edema of both hands. No pedal edema. Dressings to both intact. Well perfused and warm. NEUROLOGICAL: Sedated on the vent. PSYCHIATRIC: Unable to assess. LINE: No evidence of infection : Dudley catheter in place, urine looks clear Allergies: Coded Allergies: No Known Allergies (Verified Allergy, Severe, 11/03/06) Objective . Vital Signs Date Time Temp Pulse Resp B/P (MAP) Pulse Ox O2 Delivery O2 Flow Rate FiO2 12/02/17 12:30 69 12/02/17 12:00 40 12/02/17 12:00 98.4 68 19 133/77 (95) 100 12/02/17 12:00 68 12/02/17 11:31 68 12/02/17 11:31 68 19 128/75 (92) 100 12/02/17 11:00 68 12/02/17 11:00 68 24 125/73 (90) 100 12/02/17 10:30 69 35 127/73 (91) 100 12/02/17 10:30 69 12/02/17 10:00 40 12/02/17 10:00 71 31 132/73 (92) 100 12/02/17 10:00 71 12/02/17 09:30 71 24 129/74 (92) 100 12/02/17 09:30 71 12/02/17 09:00 69 12/02/17 09:00 69 23 116/73 (87) 100 12/02/17 08:31 40 12/02/17 08:30 67 12/02/17 08:30 67 14 122/68 (86) 100 12/02/17 08:24 100 40 12/02/17 08:00 66 12/02/17 08:00 98.3 66 19 167/72 (103) 100 12/02/17 06:00 68 12/02/17 04:06 100 40 12/02/17 04:00 98.7 69 18 129/74 (92) 100 12/02/17 04:00 40 12/02/17 04:00 69 12/02/17 02:00 66 12/02/17 01:50 100 40 12/02/17 00:00 66 12/02/17 00:00 40 12/02/17 00:00 98.7 66 18 123/71 (88) 100 12/01/17 22:14 100 40 12/01/17 22:00 68 12/01/17 20:00 74 12/01/17 20:00 98.9 74 18 126/68 (87) 100 12/01/17 20:00 40 12/01/17 19:59 100 40 12/01/17 18:30 67 12/01/17 18:16 68 12/01/17 18:16 68 18 103/62 (76) 100 12/01/17 18:00 99.1 69 18 103/62 (76) 100 12/01/17 18:00 69 12/01/17 17:00 73 12/01/17 17:00 73 31 100 12/01/17 16:17 74 12/01/17 16:17 74 20 105/55 (72) 91 12/01/17 16:13 74 12/01/17 16:13 74 113/58 (76) 92 12/01/17 16:00 96 100 12/01/17 16:00 68 33 115/55 (75) 92 12/01/17 16:00 68 12/01/17 16:00 100 12/01/17 15:32 93 40 12/01/17 14:00 66 . Laboratory Tests Test 12/01/17 03:25 12/02/17 04:30 White Blood Count 4.9 TH/MM3 5.3 TH/MM3 Red Blood Count 2.59 MIL/MM3 2.77 MIL/MM3 Hemoglobin 7.9 GM/DL 8.4 GM/DL Hematocrit 22.8 % 24.4 % Mean Corpuscular Volume 88.1 FL 88.2 FL Mean Corpuscular Hemoglobin 30.5 PG 30.3 PG Mean Corpuscular Hemoglobin Concent 34.6 % 34.4 % Red Cell Distribution Width 13.9 % 14.2 % Platelet Count 133 TH/MM3 150 TH/MM3 Mean Platelet Volume 8.9 FL 8.8 FL Neutrophils (%) (Auto) 73.8 % Lymphocytes (%) (Auto) 14.5 % Monocytes (%) (Auto) 10.4 % Eosinophils (%) (Auto) 1.0 % Basophils (%) (Auto) 0.3 % Neutrophils # (Auto) 3.9 TH/MM3 Lymphocytes # (Auto) 0.8 TH/MM3 Monocytes # (Auto) 0.6 TH/MM3 Eosinophils # (Auto) 0.1 TH/MM3 Basophils # (Auto) 0.0 TH/MM3 CBC Comment DIFF FINAL Differential Comment Laboratory Tests Test 12/01/17 03:25 12/02/17 04:30 Blood Urea Nitrogen 81 MG/DL 70 MG/DL Creatinine 2.40 MG/DL 2.15 MG/DL Random Glucose 143 MG/DL 161 MG/DL Calcium Level 7.5 MG/DL 7.9 MG/DL Sodium Level 140 MEQ/L 140 MEQ/L Potassium Level 3.7 MEQ/L 3.4 MEQ/L Chloride Level 104 MEQ/L 103 MEQ/L Carbon Dioxide Level 24.6 MEQ/L 25.7 MEQ/L Anion Gap 11 MEQ/L 11 MEQ/L Estimat Glomerular Filtration Rate 35 ML/MIN 40 ML/MIN Total Protein 7.7 GM/DL Albumin 3.0 GM/DL Alkaline Phosphatase 104 U/L Aspartate Amino Transf (AST/SGOT) 92 U/L Alanine Aminotransferase (ALT/SGPT) 41 U/L Total Bilirubin 0.9 MG/DL Microbiology Date/Time Source Procedure Growth Status 12/02/17 04:20 Blood Peripheral Aerobic Blood Culture Pending Received 12/02/17 04:20 Blood Peripheral Anaerobic Blood Culture Pending Received 12/01/17 13:00 Blood Peripheral Aerobic Blood Culture - Preliminary NO GROWTH IN 1 DAY Resulted 12/01/17 13:00 Blood Peripheral Anaerobic Blood Culture - Preliminary NO GROWTH IN 1 DAY Resulted 12/01/17 12:55 Blood Peripheral Aerobic Blood Culture - Preliminary NO GROWTH IN 1 DAY Resulted 12/01/17 12:55 Blood Peripheral Anaerobic Blood Culture - Preliminary NO GROWTH IN 1 DAY Resulted 12/01/17 17:30 Stool Stool Stool Occult Blood (MADALYN) - Final HEMOCCULT NEGATIVE Complete Imaging Last Impressions Chest X-Ray 12/02/17 0600 Signed Impressions: CONCLUSION: No significant change. Left greater than right parenchymal consolidation and sm all left pleural effusion again noted. Abdomen/Pelvis CT 12/01/17 Signed Impressions: CONCLUSION: 1. Bibasilar consolidating lung infiltrate 2. Hepatosplenomegaly 3. Calcified adrenal glands. 4. Trace ascites. 5. PEG tube and Dudley catheter in place. 6. Inguinal lymphadenopathy. 7. Calcific arthropathy of the left hip. 8. No acute intestinal abnormality hydronephrosis or suspicious abdominopelvic masses. Renal Ultrasound 11/28/17 Signed Impressions: CONCLUSION: 1. Echogenic kidneys consistent with medical renal disease. 2. No obstructive uropathy. Head CT 11/28/17 Signed Impressions: CONCLUSION: 1. No acute hemorrhage or mass effect. 2. Large area of encephalomalacia involving the right frontal and parietal lob e. 3. Chronic sinusitis. Brain MRI 11/28/17 Signed Impressions: CONCLUSION: 1. Large area of encephalomalacia in the right medial frontal parietal high co nvexities extending to the vertex. 2. No evidence for acute abnormality. Specifically, no acute infarction, hemor rhage or hydrocephalus. 3. Paranasal sinus mucosal disease. Physical Exam GENERAL: sedated on the vent, not in respiratory distress. SKIN: Warm and dry. No generalized rash HEAD: Atraumatic. Normocephalic. No temporal wasting, or tenderness. EYES: Pale conjunctiva. No petechia or hemorrhage. Pupils equal, round and reactive to light. No scleral icterus. No injection or drainage. EARS, NOSE AND THROAT: Nose without bleeding or purulent nasal discharge. He is orally intubated. NECK: Trachea midline. Supple and not tender, no meningeal signs CARDIOVASCULAR: Regular rate and rhythm. Limited exam due to the diffuse rhonchi RESPIRATORY: Bilateral diffuse rhonchi ABDOMEN: Soft, mildly distended, no reaction to palpation, no guarding. Bowel sounds present and normoactive. EXTREMITIES: No clubbing, cyanosis. Has edema of both hands. No pedal edema. Has dressings to both feet, dry and intact. Well perfused and warm. NEUROLOGICAL: Sedated on the vent. PSYCHIATRIC: Unable to assess. LINE: No evidence of infection : Dudley catheter in place, urine looks clear Assessment & Plan Remarks IMPRESSION Klebsiella ESBL+ in sputum with bilateral infiltrates - has CHF and likely with PNA (?Aspiration, came in with decreased LOC) CHF Respiratory failure Acute kidney injury (+) BC with Staph hominis, ?source Hx CVA SNF resident RECOMMENDATION Follow C/S Continue Vanco, pharmacy following Continue IV Invanz to cover ESBL+ organism Await echo Follow cultures Monitor progress Sharlene Kim MD December 02, 2017 13:34
--- NOTE | 2017-12-02 14:29 | RADRPT ---
EXAM DATE: 12/02/2017 2:21 PM EDT AGE/SEX: 47 years / Male INDICATIONS: Evaluate for osteomyelitis. CLINICAL DATA: This is the patient's initial encounter. Patient reports that signs and symptoms have been present for 1 day and indicates a pain score of Nonresponsive. MEDICAL/SURGICAL HISTORY: Non-responsive. Non-responsive. COMPARISON: None. FINDINGS: These images were the best obtainable given the patient's state of cooperation. Motion artifact in co njunction with the portable nature of the exam significantly limits the evaluation. Destructive bolton es are seen involving the head of the fifth metatarsal worrisome for osteomyelitis. Overlap of the to es generates significant limitations. No gross abnormality within the other toes. No radiopaque forei gn bodies. CONCLUSION: 1. Very limited study. 2. Concern for osteomyelitis involving the fifth metatarsal head. Electronically signed by: Moris Damon MD 12/02/2017 2:28 PM EDT
--- NOTE | 2017-12-02 14:30 | RADRPT ---
EXAM DATE: 12/02/2017 2:19 PM EDT AGE/SEX: 47 years / Male INDICATIONS: Evaluate for osteomyelitis. CLINICAL DATA: This is the patient's initial encounter. Patient reports that signs and symptoms have been present for 1 day and indicates a pain score of Nonresponsive. MEDICAL/SURGICAL HISTORY: Non-responsive. Non-responsive. COMPARISON: None. FINDINGS: These images were the best obtainable given the patient's stated cooperation. Motion artifact in conj unction with the portable nature of the exam as well as overlap of the bony structures significantly limits the evaluation. No gross fracture or dislocation. No gross destructive changes. Either disloca tion or subluxation at the first metatarsophalangeal joint. No radiopaque foreign body. CONCLUSION: 1. Very limited study. 2. No gross acute abnormality. Electronically signed by: Moris Damon MD 12/02/2017 2:29 PM EDT
--- NOTE | 2017-12-02 14:39 | ECHRPT ---
Indication: HEART FAILURE CONCLUSIONS The left ventricular systolic function is normal with an estimated ejection fraction in the range of 60-65%. Normal left ventricular size. Wall thickness is measured at the upper limits of normal. No regional wall motion abnormalities are present. The left atrial size is mildly dilated. Mild thickening of the mitral valve leaflets. Mitral annular calcification is present. Mild mitral valve regurgitation. Mild mitral valve stenosis. There is trace tricuspid valve regurgitation. The estimated pulmonary arterial pressure is 51.7 mmHg. BP: 100 / 56 HR: 72 Rhythm: Sinus MEASUREMENTS (Male / Female) Normal Values Technical Quality:Good 2D ECHO LV Diastolic Diameter PLAX 6.0 cm 4.2 - 5.9 / 3.9 - 5.3 cm LV Systolic Diameter PLAX 4.4 cm IVS Diastolic Thickness 1.2 cm 0.6 - 1.0 / 0.6 - 0.9 cm LVPW Diastolic Thickness 1.2 cm 0.6 - 1.0 / 0.6 - 0.9 cm LV Relative Wall Thickness 0.4 RV Internal Dim ED PLAX 2.9 cm LVOT Diameter 2.1 cm LA Systolic Diameter LX 4.2 cm 3.0 - 4.0 / 2.7 - 3.8 cm M-MODE Aortic Root Diameter MM 2.8 cm LA Systolic Diameter MM 4.3 cm LA Ao Ratio MM 1.5 MV E Point Septal Separation 1.6 cm AV Cusp Separation MM 2.0 cm DOPPLER AV Peak Velocity 151.0 cm/s AV Peak Gradient 9.1 mmHg LVOT Peak Velocity 110.0 cm/s LVOT Peak Gradient 4.8 mmHg AV Area Cont Eq pk 2.5 cm MV Peak Velocity 179.3 cm/s MV Peak Gradient 12.9 mmHg MV Mean Velocity 110.3 cm/s MV Mean Gradient 5.3 mmHg MV Area PHT 1.6 cm Mitral E Point Velocity 176.0 cm/s Mitral A Point Velocity 93.9 cm/s Mitral E to A Ratio 1.9 LV E' Lateral Velocity 4.8 cm/s Mitral E to LV E' Lateral Ratio 37.0 LV E' Septal Velocity 5.2 cm/s Mitral E to LV E' Septal Ratio 33.7 TR Peak Velocity 323.0 cm/s TR Peak Gradient 41.7 mmHg Right Atrial Pressure 10.0 mmHg Pulmonary Artery Systolic Pressu 51.7 mmHg Right Ventricular Systolic Press 51.7 mmHg FINDINGS LEFT VENTRICLE The left ventricular systolic function is normal with an estimated ejection fraction in the range of 60-65%. Normal left ventricular size. Wall thickness is measured at the upper limits of normal. No regional wall motion abnormalities are present. RIGHT VENTRICLE Normal right ventricular size and systolic function. LEFT ATRIUM The left atrial size is mildly dilated. RIGHT ATRIUM The right atrial size is normal. ATRIAL SEPTUM Normal atrial septal thickness without atrial level shunting by limited color doppler interrogation. AORTA The aortic root and proximal ascending aorta are normal in size on limited imaging. MITRAL VALVE Mild thickening of the mitral valve leaflets. Mitral annular calcification is present. Mild mitral valve regurgitation. Mild mitral valve stenosis. AORTIC VALVE Trileaflet aortic valve. No aortic valve stenosis or regurgitation. TRICUSPID VALVE Structurally normal tricuspid valve. There is trace tricuspid valve regurgitation. The estimated pulmonary arterial pressure is 51.7 mmHg. PULMONARY VALVE No pulmonary valve regurgitation or stenosis. VESSELS The inferior vena cava is normal in size. PERICARDIUM No pericardial effusion. Dave Goldstein MD, FACC (Electronically Signed) Final Date:02 Dec 2017 14:38
--- NOTE | 2017-12-02 19:28 | HHI.CCPN ---
Subjective Remarks/Hospital Course This is a 47-year-old male with a history of prior stroke who presented from custodial facility by EMS for acute altered mental status. Per EMS reports, he was in his normal state of health last night and then with his reevaluated by the nursing staff and was a GCS of 3 with room air sats of 79%. Of note by the ED physician, the patient had pink frothy sputum on admission to the ER. He was emergently intubated by the emergency department. He has a chest x-ray which demonstrates bilateral infiltrates consistent with pulmonary edema. He has a BNP which is severely elevated at 1300. He has a elevated creatinine suggestive of acute kidney injury with an unknown baseline. Per report he has been treated for an MRSA skin infection. He is afebrile with a normal white count. Critical care medicine is consulted to evaluate manage his acute encephalopathy, multiorgan dysfunction. No additional information is available from the patient due to his severe encephalopathy. SUBJ 11/29: Remains intubated sedated with propofol for vent synchrony. According to RN he did follow commands upper extremities when sedation held. Chest exam reveals bilateral coarse rhonchi, crackles. CXR pending at this time 11/30: remains intubated. cxr with bilateral infiltrates again suggestive of volume overload. 12/01: T-max 100.6. Creatinine and change the patient continues to be positive with fluid, will follow up nephrology's recommendations regarding continued albumin and/Lasix therapy. Hemoglobin stable this a.m. at 7.9. Plan for CT of the abdomen and pelvis for possible source. Stool Hemoccult still pending. Consult ID , appreciate recommendations. Follow-up with podiatry concern for osteomyelitis. Plan for possible I&D bilateral foot ulcers today. 12/02: Late entry note patient seen at 12:45 PM. No acute events overnight. The patient underwent incision and debridement bilateral feet by podiatry today tolerated procedures well. Hemodynamically stable. Creatinine improving. The patient remains on CPAP greater than 8 hours. Objective Vital Signs Date Time Temp Pulse Resp B/P (MAP) Pulse Ox O2 Delivery O2 Flow Rate FiO2 12/02/17 16:00 98.4 74 29 134/76 (95) 100 12/02/17 16:00 40 Intake and Output 12/02/17 12/02/17 12/03/17 08:00 16:00 00:00 Intake Total 200 ml 300 ml Output Total 2001 ml Balance -1801 ml 300 ml Result Diagram: 12/02/17 0430 12/02/17 0430 Other Results Microbiology Date/Time Source Procedure Growth Status 12/01/17 17:30 Stool Stool Stool Occult Blood (MADALYN) - Final HEMOCCULT NEGATIVE Complete Imaging Last Impressions Chest X-Ray 12/02/17 0600 Signed Impressions: CONCLUSION: No significant change. Left greater than right parenchymal consolidation and sm all left pleural effusion again noted. Foot X-Ray 12/02/17 Signed Impressions: CONCLUSION: 1. Very limited study. 2. No gross acute abnormality. Abdomen/Pelvis CT 12/01/17 Signed Impressions: CONCLUSION: 1. Bibasilar consolidating lung infiltrate 2. Hepatosplenomegaly 3. Calcified adrenal glands. 4. Trace ascites. 5. PEG tube and Dudley catheter in place. 6. Inguinal lymphadenopathy. 7. Calcific arthropathy of the left hip. 8. No acute intestinal abnormality hydronephrosis or suspicious abdominopelvic masses. Renal Ultrasound 11/28/17 Signed Impressions: CONCLUSION: 1. Echogenic kidneys consistent with medical renal disease. 2. No obstructive uropathy. Head CT 11/28/17 Signed Impressions: CONCLUSION: 1. No acute hemorrhage or mass effect. 2. Large area of encephalomalacia involving the right frontal and parietal lob e. 3. Chronic sinusitis. Brain MRI 11/28/17 Signed Impressions: CONCLUSION: 1. Large area of encephalomalacia in the right medial frontal parietal high co nvexities extending to the vertex. 2. No evidence for acute abnormality. Specifically, no acute infarction, hemor rhage or hydrocephalus. 3. Paranasal sinus mucosal disease. Last Impressions Chest X-Ray 11/30/17 06 Signed Impressions: CONCLUSION: Patchy areas of increased density related to areas of consolidation or atelecta sis. Renal Ultrasound 11/28/17 Signed Impressions: CONCLUSION: 1. Echogenic kidneys consistent with medical renal disease. 2. No obstructive uropathy. Head CT 11/28/17 Signed Impressions: CONCLUSION: 1. No acute hemorrhage or mass effect. 2. Large area of encephalomalacia involving the right frontal and parietal lob e. 3. Chronic sinusitis. Brain MRI 11/28/17 Signed Impressions: CONCLUSION: 1. Large area of encephalomalacia in the right medial frontal parietal high co nvexities extending to the vertex. 2. No evidence for acute abnormality. Specifically, no acute infarction, hemor rhage or hydrocephalus. 3. Paranasal sinus mucosal disease. Objective Remarks GENERAL: This is a -Prydeinig middle-age male well-developed well- nourished who appears much older than stated age, lying in bed, intubated, sedated with propofol HEENT: Normocephalic. Atraumatic. Pupils equal, round, reactive, conjugate. Orotracheally intubated NECK: Trachea is midline. Positive JVD CHEST: Intubated with an 8.0 ET tube. Equal chest rise. PRVC. 40% FiO2. Bilateral coarse rhonchi and crackles CARDIOVASCULAR: Normal rate, regular rhythm. Appears sinus by telemetry. ABDOMEN: Soft, nontender, nondistended. No guarding. MUSCULOSKELETAL: Pulses 2+. 2+ peripheral edema B/L upper and lower extremity NEUROLOGICAL: Intubated sedated with propofol. Weakly withdraws to pain. Positive corneals. Positive cough. Positive gag. (Does follow commands to RN when sedation was held) A/P Assessment and Plan Assessment: 47-year-old male with prior stroke who presents with severe acute congestive heart failure exacerbation, unknown type, with associated acute hypoxic and hypercarbic respiratory failure, acute metabolic encephalopathy, acute kidney injury. Remains critically ill. still awaiting echo to determine ventricular function. still appears cardiac in origin and not infectious. remains afebrile with normal wbc count. remains very critically ill with minimal if any improvement over last 48h. off pathway. Plan by systems: Neurologic: Acute metabolic encephalopathy History of prior CVA MRI-old frontoparietal encephalomalacia, no acute findings EEG-generalized slowing without seizures Frequent neurochecks Propofol for goal RASS -2, Avoid long-acting sedatives. daily sedation vacation Tox screen, UDS positive only for benzodiazepines Check ammonia TSH. B12 normal Respiratory: Acute hypoxic and hypercarbic respiratory failure Severe acute pulmonary edema Vent bundle, Head of bed elevated Nebs every 6 hours scheduled and as needed Continue CPAP trials Wean FiO2 for goal SPO2 greater than 90% Cardiovascular: Acute severe congestive heart failure exacerbation, unknown type Mildly Elevated troponin Lasix 80 mg IV 1 given 11/29, now scheduled Lasix 40 every 12 with IV albumin 12/01 2D echo pending at this time. Patient has severe anemia with a hemoglobin of 5.9 , status post transfusion 2 units of packed cells, continue to monitor H&H Hold off on aspirin given severe anemia Renal: Acute kidney injury superimposed on chronic renal insufficiency with an unknown baseline Likely secondary to venous congestion from CHF Continue Dudley Diuresis as above Renal ultrasound: no obstruction or hydro FENa on admission 3.7% (unknown if on chronic lasix) FEUrea on admission 47.3%- suggestive of intrinsic renal disease. urine eosinophils negative -Strict I/Os -Nephrology consulted anticipating hemodialysis for fluid removal and possible uremia if renal function gets worse with forced diuresis FEN/GI: Acute intravascular volume overload Diuresis as above Tube feeds with Nepro CT of the abdomen and pelvis Heme/ID: Severe anemia, likely secondary to chronic disease s/p 2 unit PRBCs on 11/28 Holding anticoagulation until etiology is determined Iron studies: low iron, low TIBC, high ferritin. suggests chronic disease as a cause. Daily CBC Pro calcitonin 1.4 intermediate risk. blood cultures 11/28 GPCs in 2/ bottles sputum culture 11/28 GNR- ESBL 11/25 consult ID-appreciate recommendations Hemoccult negative CT of the abdomen and pelvis Endocrine: Hyperglycemia of critical illness Diabetes Glucose monitoring per ICU protocol -- SSI Prophylaxis: GI Prophylaxis IV PPI- BID DVT Prophylaxis -- SCDs Holding pharmacologic DVT prophylaxis in the setting of severe anemia Lines: Peripheral IVs Dudley Dispo: Continue ICU. Very critically ill. This patient remains critically ill with one or more organ systems which are or may become a threat to life. I have spent in excess of 32 minutes discontinuously in the care and management of this patient. This time is exclusive of procedures, and includes, but is not limited to, evaluation of the patient, review of the medical record, discussions with family, consultants, nursing staff, or respiratory therapy, and documentation in the medical record. Physician Tata Avila MD December 02, 2017 19:28
[2017-12-03] VITALS (32 sets, daily range): BP systolic 115–153; BP diastolic 66–82; PULSE 72–80; RESP 18–29; TEMP 98–99.9; O2SAT 100
[2017-12-03] MEDS: RESP: ALBUTEROL 2.5 MG/IPRATROPIUM 0.5 MG NEB (SCH) NEB ×2 (03:56→08:56)
[2017-12-03] MEDS: CHLORHEXIDINE GLUCONATE 2 % 1 PACK (2 CLOTHS) TOP SCH (04:00)
[2017-12-03] MEDS: PROPOFOL 1000 MG/100 ML IV PRN ×4 (05:00→20:10)
[2017-12-03] MEDS: INSULIN NovoLIN REGULAR SUPPLEMENTAL SCALE SQ SCH ×4 (05:02→23:17)
[2017-12-03 05:39] LABS: HEMATOCRIT 26.4 % (39.0-51.0); HEMOGLOBIN 8.9 GM/DL (13.0-17.0); MEAN CELL VOLUME 87.9 FL (80.0-100.0); MEAN CORPUSCULAR HEMOGLOBIN 29.6 PG (27.0-34.0); MEAN CORPUSCULAR HGB CONC 33.7 % (32.0-36.0); MEAN PLATELET VOLUME 8.3 FL (7.0-11.0); PLATELET COUNT 211 TH/MM3 (150-450); RED CELL DISTRIBUTION WIDTH 14.3 % (11.6-17.2); WHITE BLOOD COUNT 6.4 TH/MM3 (4.0-11.0)
[2017-12-03 06:07] LABS: BICARBONATE 27.3 MEQ/L (21.0-32.0); CALCIUM 8.5 MG/DL (8.5-10.1); CREATININE 1.69 MG/DL (0.60-1.30)
[2017-12-03 06:09] LABS: RANDOM VANCOMYCIN 15.5 COMMENT
--- NOTE | 2017-12-03 08:29 | HHI.IDPN ---
Subjective Subjective Remarks Patient is a 47-year-old male, who is a resident of the care home, with history of CVA, brought into the hospital for decreased level of consciousness, decreased oxygen saturation. In the ED he was noted to have some pink frothy sputum. He was emergently intubated. His chest x-ray showed bilateral pulmonary infiltrates consistent with pulmonary edema. 2 blood cultures were done in the emergency room, and they are both growing staph hominis. Sputum culture also is now reported as growing Klebsiella ESBL positive. His chest x- ray has shown some worsening of his infiltrates. He was also found to have acute kidney injury. Patient is being managed for pulmonary edema, as well as sepsis. He has been getting vancomycin as well as Zosyn. He was initially febrile on his first hospital day, but that has improved. Patient's white count has been normal. Patient remains on the respirator. He has good urine output, but his creatinine remains elevated. There is no evidence of obstruction on his renal ultrasound. CT of the abdomen and pelvis are showing chronic changes of encephalomalacia compatible with his prior history of CVA. Infectious disease consultation has been requested to evaluate the patient. Notes reviewed D/W RN Temps ok On the vent Has a lot of ET secretions, beige brownish color No new (+) BC CXR no change CT A/P report noted Echo noted Creatinine improving Good UO Antibiotics Invanz Current Medications Medications (Trade) Dose Ordered Sig/Arthur Route Start Time Stop Time Status Last Admin (Brethine Inj) 1 mg UNSCH PRN SQ 11/28/17 05:30 (NS Flush) 2 ml UNSCH PRN IV FLUSH 11/28/17 05:45 (NS Flush) 2 ml BID IV FLUSH 11/28/17 09:00 12/02/17 22:37 (Tylenol) 650 mg Q6H PRN PO 11/28/17 05:45 11/30/17 21:10 (Tears Naturale Opth Soln) 1 drop TID EACH EYE 11/28/17 09:00 12/02/17 19:36 (Zofran Inj) 4 mg Q6H PRN IV PUSH 11/28/17 05:45 (Duoneb Neb) 1 ampule Q2HR NEB PRN INH 11/28/17 05:45 11/29/17 08:16 ([facility] [facility] 1 Q361D XX 11/28/17 05:45 (Chlorhexidine 2% Cloth) 3 pack Taper DAILY@04 TOP 11/29/17 04:00 11/25/18 03:59 12/03/17 04:00 (Chlorhexidine 2% Cloth) 3 pack UNSCH PRN TOP 11/28/17 05:45 (Jessie-Colace) 1 tab BID PO 11/28/17 09:00 12/01/17 08:16 (Milk Of Magnesia Liq) 30 ml Q12H PRN PO 11/28/17 05:45 (Senokot) 17.2 mg Q12H PRN PO 11/28/17 05:45 (Dulcolax Supp) 10 mg DAILY PRN RECTAL 11/28/17 05:45 (Lactulose Liq) 30 ml DAILY PRN PO 11/28/17 05:45 12/01/17 11:49 (D50w (Vial) Inj) 25 ml UNSCH PRN IV PUSH 11/28/17 06:15 (NovoLIN R SUPPLEMENTAL SCALE) 1 Q6HR SQ 11/28/17 12:00 12/02/17 18:00 (Protonix Inj) 40 mg Q12H IV PUSH 11/28/17 12:00 12/02/17 23:16 Propofol 100 ml @ 2.7 mls/hr TITRATE PRN IV 11/28/17 14:15 12/03/17 05:00 (Duoneb Neb) 1 ampule Q6HR NEB NEB 11/29/17 10:00 12/03/17 03:56 Pharmacy Profile Note 0 ml @ 0 mls/hr UNSCH OTHER 11/30/17 08:30 (Santyl Oint) 1 applic DAILY TOPICAL 12/01/17 09:00 12/02/17 09:00 Ertapenem 500 mg/ Sodium Chloride 100 ml @ 200 mls/hr Q24H IV 12/01/17 13:00 12/02/17 12:43 Lines Last Impressions Chest X-Ray 12/02/17 0600 Signed Impressions: CONCLUSION: No significant change. Left greater than right parenchymal consolidation and sm all left pleural effusion again noted. Abdomen/Pelvis CT 12/01/17 0000 Signed Impressions: CONCLUSION: 1. Bibasilar consolidating lung infiltrate 2. Hepatosplenomegaly 3. Calcified adrenal glands. 4. Trace ascites. 5. PEG tube and Dudley catheter in place. 6. Inguinal lymphadenopathy. 7. Calcific arthropathy of the left hip. 8. No acute intestinal abnormality hydronephrosis or suspicious abdominopelvic masses. Renal Ultrasound 11/28/17 Signed Impressions: CONCLUSION: 1. Echogenic kidneys consistent with medical renal disease. 2. No obstructive uropathy. Head CT 11/28/17 Signed Impressions: CONCLUSION: 1. No acute hemorrhage or mass effect. 2. Large area of encephalomalacia involving the right frontal and parietal lob e. 3. Chronic sinusitis. Brain MRI 11/28/17 Signed Impressions: CONCLUSION: 1. Large area of encephalomalacia in the right medial frontal parietal high co nvexities extending to the vertex. 2. No evidence for acute abnormality. Specifically, no acute infarction, hemor rhage or hydrocephalus. 3. Paranasal sinus mucosal disease. Past Medical History GENERAL: sedated on the vent,NAD SKIN: Warm and dry. No generalized rash HEAD: Atraumatic. Normocephalic. No temporal wasting, or tenderness. EYES: Pale conjunctiva. No petechia or hemorrhage. Pupils equal, round and reactive to light. No scleral icterus. No injection or drainage. EARS, NOSE AND THROAT: Nose without bleeding or purulent nasal discharge. He is orally intubated. NECK: Trachea midline. Supple and not tender, no meningeal signs CARDIOVASCULAR: Regular rate and rhythm. Limited exam due to the diffuse rhonchi RESPIRATORY: Bilateral diffuse rhonchi ABDOMEN: Soft, mildly distended, no reaction to palpation, no guarding. Bowel sounds present and normoactive. EXTREMITIES: No clubbing, cyanosis. Has edema of both hands. No pedal edema. Dressings to both intact. Well perfused and warm. NEUROLOGICAL: Sedated on the vent. PSYCHIATRIC: Unable to assess. LINE: No evidence of infection : Dudley catheter in place, urine looks clear Allergies: Coded Allergies: No Known Allergies (Verified Allergy, Severe, 11/03/06) Objective . Vital Signs Date Time Temp Pulse Resp B/P (MAP) Pulse Ox O2 Delivery O2 Flow Rate FiO2 12/03/17 06:00 73 12/03/17 04:00 74 12/03/17 04:00 98.1 74 18 146/81 (102) 100 12/03/17 04:00 40 12/03/17 03:56 100 40 12/03/17 02:00 74 12/03/17 00:00 75 12/03/17 00:00 98.4 75 29 115/67 (83) 100 12/03/17 00:00 40 12/02/17 23:55 100 40 12/02/17 22:00 76 12/02/17 21:02 100 40 12/02/17 20:05 76 12/02/17 20:00 98.6 76 29 115/67 (83) 100 12/02/17 20:00 77 12/02/17 20:00 40 12/02/17 19:30 74 12/02/17 19:00 74 12/02/17 18:30 73 12/02/17 18:00 74 12/02/17 16:00 98.4 74 29 134/76 (95) 100 12/02/17 16:00 74 12/02/17 16:00 40 12/02/17 14:43 100 40 12/02/17 14:30 71 12/02/17 14:00 72 12/02/17 12:30 69 12/02/17 12:00 40 12/02/17 12:00 98.4 68 19 133/77 (95) 100 12/02/17 12:00 68 12/02/17 11:31 68 12/02/17 11:31 68 19 128/75 (92) 100 12/02/17 11:00 68 12/02/17 11:00 68 24 125/73 (90) 100 12/02/17 10:30 69 35 127/73 (91) 100 12/02/17 10:30 69 12/02/17 10:00 40 12/02/17 10:00 71 31 132/73 (92) 100 12/02/17 10:00 71 12/02/17 09:30 71 24 129/74 (92) 100 12/02/17 09:30 71 12/02/17 09:00 69 12/02/17 09:00 69 23 116/73 (87) 100 12/02/17 08:31 40 12/02/17 08:30 67 12/02/17 08:30 67 14 122/68 (86) 100 . Laboratory Tests Test 12/02/17 04:30 12/03/17 04:25 White Blood Count 5.3 TH/MM3 6.4 TH/MM3 Red Blood Count 2.77 MIL/MM3 3.00 MIL/MM3 Hemoglobin 8.4 GM/DL 8.9 GM/DL Hematocrit 24.4 % 26.4 % Mean Corpuscular Volume 88.2 FL 87.9 FL Mean Corpuscular Hemoglobin 30.3 PG 29.6 PG Mean Corpuscular Hemoglobin Concent 34.4 % 33.7 % Red Cell Distribution Width 14.2 % 14.3 % Platelet Count 150 TH/MM3 211 TH/MM3 Mean Platelet Volume 8.8 FL 8.3 FL Neutrophils (%) (Auto) 73.8 % Lymphocytes (%) (Auto) 14.5 % Monocytes (%) (Auto) 10.4 % Eosinophils (%) (Auto) 1.0 % Basophils (%) (Auto) 0.3 % Neutrophils # (Auto) 3.9 TH/MM3 Lymphocytes # (Auto) 0.8 TH/MM3 Monocytes # (Auto) 0.6 TH/MM3 Eosinophils # (Auto) 0.1 TH/MM3 Basophils # (Auto) 0.0 TH/MM3 CBC Comment DIFF FINAL Differential Comment Laboratory Tests Test 12/02/17 04:30 12/03/17 04:25 Blood Urea Nitrogen 70 MG/DL 67 MG/DL Creatinine 2.15 MG/DL 1.69 MG/DL Random Glucose 161 MG/DL 72 MG/DL Total Protein 7.7 GM/DL Albumin 3.0 GM/DL Calcium Level 7.9 MG/DL 8.5 MG/DL Alkaline Phosphatase 104 U/L Aspartate Amino Transf (AST/SGOT) 92 U/L Alanine Aminotransferase (ALT/SGPT) 41 U/L Total Bilirubin 0.9 MG/DL Sodium Level 140 MEQ/L 144 MEQ/L Potassium Level 3.4 MEQ/L 3.5 MEQ/L Chloride Level 103 MEQ/L 107 MEQ/L Carbon Dioxide Level 25.7 MEQ/L 27.3 MEQ/L Anion Gap 11 MEQ/L 10 MEQ/L Estimat Glomerular Filtration Rate 40 ML/MIN 53 ML/MIN Microbiology Date/Time Source Procedure Growth Status 12/02/17 04:20 Blood Peripheral Aerobic Blood Culture Pending Received 12/02/17 04:20 Blood Peripheral Anaerobic Blood Culture Pending Received 12/01/17 13:00 Blood Peripheral Aerobic Blood Culture - Preliminary NO GROWTH IN 1 DAY Resulted 12/01/17 13:00 Blood Peripheral Anaerobic Blood Culture - Preliminary NO GROWTH IN 1 DAY Resulted 12/01/17 12:55 Blood Peripheral Aerobic Blood Culture - Preliminary NO GROWTH IN 1 DAY Resulted 12/01/17 12:55 Blood Peripheral Anaerobic Blood Culture - Preliminary NO GROWTH IN 1 DAY Resulted 12/01/17 17:30 Stool Stool Stool Occult Blood (MADALYN) - Final HEMOCCULT NEGATIVE Complete Imaging Last Impressions Chest X-Ray 12/02/17 0600 Signed Impressions: CONCLUSION: No significant change. Left greater than right parenchymal consolidation and sm all left pleural effusion again noted. Abdomen/Pelvis CT 12/01/17 0000 Signed Impressions: CONCLUSION: 1. Bibasilar consolidating lung infiltrate 2. Hepatosplenomegaly 3. Calcified adrenal glands. 4. Trace ascites. 5. PEG tube and Dudley catheter in place. 6. Inguinal lymphadenopathy. 7. Calcific arthropathy of the left hip. 8. No acute intestinal abnormality hydronephrosis or suspicious abdominopelvic masses. Renal Ultrasound 11/28/17 Signed Impressions: CONCLUSION: 1. Echogenic kidneys consistent with medical renal disease. 2. No obstructive uropathy. Head CT 11/28/17 Signed Impressions: CONCLUSION: 1. No acute hemorrhage or mass effect. 2. Large area of encephalomalacia involving the right frontal and parietal lob e. 3. Chronic sinusitis. Brain MRI 11/28/17 Signed Impressions: CONCLUSION: 1. Large area of encephalomalacia in the right medial frontal parietal high co nvexities extending to the vertex. 2. No evidence for acute abnormality. Specifically, no acute infarction, hemor rhage or hydrocephalus. 3. Paranasal sinus mucosal disease. Physical Exam GENERAL: sedated on the vent, not in respiratory distress. SKIN: Warm and dry. No generalized rash HEAD: Atraumatic. Normocephalic. No temporal wasting, or tenderness. EYES: Pale conjunctiva. No petechia or hemorrhage. Pupils equal, round and reactive to light. No scleral icterus. No injection or drainage. EARS, NOSE AND THROAT: Nose without bleeding or purulent nasal discharge. He is orally intubated. NECK: Trachea midline. Supple and not tender, no meningeal signs CARDIOVASCULAR: Regular rate and rhythm. Limited exam due to the diffuse rhonchi RESPIRATORY: Bilateral diffuse rhonchi ABDOMEN: Soft, mildly distended, no reaction to palpation, no guarding. Bowel sounds present and normoactive. EXTREMITIES: No clubbing, cyanosis. Has edema of both hands. No pedal edema. Has dressings to both feet, dry and intact. Well perfused and warm. NEUROLOGICAL: Sedated on the vent. PSYCHIATRIC: Unable to assess. LINE: No evidence of infection : Dudley catheter in place, urine looks clear Assessment & Plan Remarks IMPRESSION Klebsiella ESBL+ in sputum with bilateral infiltrates - has CHF and likely with PNA (?Aspiration, came in with decreased LOC) CHF, EF good on his echo Respiratory failure Acute kidney injury, improving (+) BC with Staph hominis, ?source Hx CVA SNF resident RECOMMENDATION Follow C/S Continue Vanco, pharmacy following Continue IV Invanz to cover ESBL+ organism Monitor progress D/W Sharlene Cuevas MD December 03, 2017 08:29
[2017-12-03] MEDS: DOCUSATE SODIUM 50 MG/SENNA 8.6 MG TAB PO SCH ×2 (09:00→19:49)
[2017-12-03] MEDS: COLLAGENASE OINT 30 GM TUBE TOPICAL SCH (09:00)
[2017-12-03] MEDS: ARTIFICIAL TEARS OPTH SOLN 15 ML BTL EACH EYE SCH ×3 (09:04→18:30)
[2017-12-03] MEDS: SODIUM CHLORIDE 0.9% FLUSH 10 ML FLUSH IV FLUSH SCH ×2 (09:04→19:49)
--- NOTE | 2017-12-03 10:52 | HHI.NPPN ---
Subjective History of Present Illness 47 year old with CVA with disability, DM ,HTN ,CKD intubated, CHF, gr neg in sputum, foot ulcers Objective Data Data 12/03/17 12/04/17 19:00 07:00 Intake Total 100 ml Balance 100 ml Intake IV Total 100 ml Vital Signs Date Time Temp Pulse Resp B/P (MAP) Pulse Ox O2 Delivery O2 Flow Rate FiO2 12/03/17 10:00 74 12/03/17 09:00 73 12/03/17 08:58 100 40 12/03/17 08:00 99.6 74 18 135/71 (92) 100 12/03/17 08:00 40 12/03/17 08:00 74 12/03/17 07:00 73 12/03/17 06:00 73 12/03/17 04:00 74 12/03/17 04:00 98.1 74 18 146/81 (102) 100 12/03/17 04:00 40 12/03/17 03:56 100 40 12/03/17 02:00 74 12/03/17 00:00 75 12/03/17 00:00 98.4 75 29 115/67 (83) 100 12/03/17 00:00 40 12/02/17 23:55 100 40 12/02/17 22:00 76 12/02/17 21:02 100 40 12/02/17 20:05 76 12/02/17 20:00 98.6 76 29 115/67 (83) 100 12/02/17 20:00 77 12/02/17 20:00 40 12/02/17 19:30 74 12/02/17 19:00 74 12/02/17 18:30 73 12/02/17 18:00 74 12/02/17 16:00 98.4 74 29 134/76 (95) 100 12/02/17 16:00 74 12/02/17 16:00 40 12/02/17 14:43 100 40 12/02/17 14:30 71 12/02/17 14:00 72 12/02/17 12:30 69 12/02/17 12:00 40 12/02/17 12:00 98.4 68 19 133/77 (95) 100 12/02/17 12:00 68 12/02/17 11:31 68 12/02/17 11:31 68 19 128/75 (92) 100 12/02/17 11:00 68 12/02/17 11:00 68 24 125/73 (90) 100 -: 12/03/17 0425 12/03/17 0425 Physical Exam General Appearance: Well Developed Neck Neck Exam: Neck Supple Pulmonary Resp Exam: Decreased Bases Cardiology CV Exam: Regular, Normal Sinus Rhythm Gastrointestinal/Abdomen GI Exam: Soft, Non-Tender, Bowel Sounds Present Integumentary Skin Exam: Ulcer(s) Extremeties Extremities Exam: Trace Edema Assessment/Plan Problem List: (1) Acute renal failure ICD Codes: N17.9 - Acute kidney failure, unspecified Plan: baseline creatinine was high back in August 10. as he is septic now with ESBL Klebsiella ID following on Invanz creatinine improved to 1.69 UOP 2.3 L nephrology to follow PRN bases (2) CKD (chronic kidney disease) stage 3, GFR 30-59 ml/min ICD Codes: N18.3 - Chronic kidney disease, stage 3 (moderate) Plan: long standing diabetes and this is likely causing CKD follow MELCHOR,SPEP C3 C4 negative (3) Diabetes ICD Codes: E11.9 - Type 2 diabetes mellitus without complications Status: Chronic Plan: Continue to monitor (4) Pneumonia ICD Codes: J18.9 - Pneumonia, unspecified organism Plan: on Zosyn receive Vanco (5) CHF (congestive heart failure) ICD Codes: I50.9 - Heart failure, unspecified Plan: on Felton Mcdaniel MD December 03, 2017 10:52
[2017-12-03] MEDS ORDERED: VANCOMYCIN 1,500 MG/NS 500 ML IV ONE ×2 (13:00)
[2017-12-03] MEDS: ERTAPENEM INJ 500 MG in SODIUM CHLORIDE 0.9% INJ 100 ML IV SCH (15:07)
[2017-12-03] MEDS: PANTOPRAZOLE SODIUM 40 MG VIAL IV PUSH SCH ×2 (15:07→23:16)
--- NOTE | 2017-12-03 15:55 | HHI.CCPN ---
Subjective Remarks/Hospital Course This is a 47-year-old male with a history of prior stroke who presented from [facility] facility by EMS for acute altered mental status. Per EMS reports, he was in his normal state of health last night and then with his reevaluated by the nursing staff and was a GCS of 3 with room air sats of 79%. Of note by the ED physician, the patient had pink frothy sputum on admission to the ER. He was emergently intubated by the emergency department. He has a chest x-ray which demonstrates bilateral infiltrates consistent with pulmonary edema. He has a BNP which is severely elevated at 1300. He has a elevated creatinine suggestive of acute kidney injury with an unknown baseline. Per report he has been treated for an MRSA skin infection. He is afebrile with a normal white count. Critical care medicine is consulted to evaluate manage his acute encephalopathy, multiorgan dysfunction. No additional information is available from the patient due to his severe encephalopathy. SUBJ 11/29: Remains intubated sedated with propofol for vent synchrony. According to RN he did follow commands upper extremities when sedation held. Chest exam reveals bilateral coarse rhonchi, crackles. CXR pending at this time 11/30: remains intubated. cxr with bilateral infiltrates again suggestive of volume overload. 12/01: T-max 100.6. Creatinine and change the patient continues to be positive with fluid, will follow up nephrology's recommendations regarding continued albumin and/Lasix therapy. Hemoglobin stable this a.m. at 7.9. Plan for CT of the abdomen and pelvis for possible source. Stool Hemoccult still pending. Consult ID , appreciate recommendations. Follow-up with podiatry concern for osteomyelitis. Plan for possible I&D bilateral foot ulcers today. 12/02: Late entry note patient seen at 12:45 PM. No acute events overnight. The patient underwent incision and debridement bilateral feet by podiatry today tolerated procedures well. Hemodynamically stable. Creatinine improving. The patient remains on CPAP greater than 8 hours. 12/03: No acute events overnight. The patient tolerated CPAP trials for approximately 8 hours hemodynamically stable. Tolerating tube feeds. Objective Vital Signs Date Time Temp Pulse Resp B/P (MAP) Pulse Ox O2 Delivery O2 Flow Rate FiO2 12/03/17 15:35 40 12/03/17 15:34 100 12/03/17 10:00 74 12/03/17 08:00 99.6 18 135/71 (92) Intake and Output 12/03/17 12/03/17 12/04/17 08:00 16:00 00:00 Intake Total 716 ml 100 ml Output Total 700 ml Balance 16 ml 100 ml Result Diagram: 12/03/17 0425 12/03/17 0425 Other Results Microbiology Date/Time Source Procedure Growth Status 12/01/17 17:30 Stool Stool Stool Occult Blood (MADALYN) - Final HEMOCCULT NEGATIVE Complete Imaging Last Impressions Chest X-Ray 12/02/17 06 Signed Impressions: CONCLUSION: No significant change. Left greater than right parenchymal consolidation and sm all left pleural effusion again noted. Foot X-Ray 12/02/17 Signed Impressions: CONCLUSION: 1. Very limited study. 2. No gross acute abnormality. Abdomen/Pelvis CT 12/01/17 Signed Impressions: CONCLUSION: 1. Bibasilar consolidating lung infiltrate 2. Hepatosplenomegaly 3. Calcified adrenal glands. 4. Trace ascites. 5. PEG tube and Dudley catheter in place. 6. Inguinal lymphadenopathy. 7. Calcific arthropathy of the left hip. 8. No acute intestinal abnormality hydronephrosis or suspicious abdominopelvic masses. Renal Ultrasound 11/28/17 Signed Impressions: CONCLUSION: 1. Echogenic kidneys consistent with medical renal disease. 2. No obstructive uropathy. Head CT 11/28/17 Signed Impressions: CONCLUSION: 1. No acute hemorrhage or mass effect. 2. Large area of encephalomalacia involving the right frontal and parietal lob e. 3. Chronic sinusitis. Brain MRI 11/28/17 Signed Impressions: CONCLUSION: 1. Large area of encephalomalacia in the right medial frontal parietal high co nvexities extending to the vertex. 2. No evidence for acute abnormality. Specifically, no acute infarction, hemor rhage or hydrocephalus. 3. Paranasal sinus mucosal disease. Last Impressions Chest X-Ray 11/30/17 06 Signed Impressions: CONCLUSION: Patchy areas of increased density related to areas of consolidation or atelecta sis. Renal Ultrasound 11/28/17 Signed Impressions: CONCLUSION: 1. Echogenic kidneys consistent with medical renal disease. 2. No obstructive uropathy. Head CT 11/28/17 Signed Impressions: CONCLUSION: 1. No acute hemorrhage or mass effect. 2. Large area of encephalomalacia involving the right frontal and parietal lob e. 3. Chronic sinusitis. Brain MRI 11/28/17 0000 Signed Impressions: CONCLUSION: 1. Large area of encephalomalacia in the right medial frontal parietal high co nvexities extending to the vertex. 2. No evidence for acute abnormality. Specifically, no acute infarction, hemor rhage or hydrocephalus. 3. Paranasal sinus mucosal disease. Objective Remarks GENERAL: This is a -[place] middle-age male well-developed well- nourished who appears much older than stated age, lying in bed, intubated, sedated with propofol HEENT: Normocephalic. Atraumatic. Pupils equal, round, reactive, conjugate. Orotracheally intubated NECK: Trachea is midline. Positive JVD CHEST: Intubated with an 8.0 ET tube. Equal chest rise. PRVC. 40% FiO2. Bilateral coarse rhonchi and crackles CARDIOVASCULAR: Normal rate, regular rhythm. Appears sinus by telemetry. ABDOMEN: Soft, nontender, nondistended. No guarding. MUSCULOSKELETAL: Pulses 2+. 2+ peripheral edema B/L upper and lower extremity NEUROLOGICAL: Intubated sedated with propofol. Weakly withdraws to pain. Positive corneal reflexes. Positive cough. Positive gag. (Does follow commands to RN when sedation was held) A/P Assessment and Plan Assessment: 47-year-old male with prior stroke who presents with severe acute congestive heart failure exacerbation, unknown type, with associated acute hypoxic and hypercarbic respiratory failure, acute metabolic encephalopathy, acute kidney injury. Remains critically ill. still awaiting echo to determine ventricular function. still appears cardiac in origin and not infectious. remains afebrile with normal wbc count. remains very critically ill with minimal if any improvement over last 48h. off pathway. Plan by systems: Neurologic: Acute metabolic encephalopathy History of prior CVA MRI-old frontoparietal encephalomalacia, no acute findings EEG-generalized slowing without seizures Frequent neurochecks Propofol for goal RASS -2, Avoid long-acting sedatives. daily sedation vacation Tox screen, UDS positive only for benzodiazepines Check ammonia TSH. B12 normal Respiratory: Acute hypoxic and hypercarbic respiratory failure Severe acute pulmonary edema Vent bundle, Head of bed elevated Nebs every 6 hours scheduled and as needed Continue CPAP trials-now averaging 8 hours a day Wean FiO2 for goal SPO2 greater than 90% Cardiovascular: Acute severe congestive heart failure exacerbation, unknown type Mildly Elevated troponin Lasix 80 mg IV 1 given 11/29, now scheduled Lasix 40 every 12 with IV albumin 12/01 2D echo -EF 60-65%, trace TR, mild LAE, mild MVR, No RWMA Patient has severe anemia with a hemoglobin of 5.9 , status post transfusion 2 units of packed cells, continue to monitor H&H ASA resumed Renal: Acute kidney injury superimposed on chronic renal insufficiency with an unknown baseline Likely secondary to venous congestion from CHF Continue Dudley Diuresis as above Renal ultrasound: no obstruction or hydro FENa on admission 3.7% (unknown if on chronic lasix) FEUrea on admission 47.3%- suggestive of intrinsic renal disease. urine eosinophils negative -Strict I/Os -Nephrology following FEN/GI: Acute intravascular volume overload Diuresis as above Tube feeds with Nepro 12/01 CT of the abdomen and pelvis- Bibasilar consolidating lung infiltrate. Hepatosplenomegaly Calcified adrenal glands. Trace ascites. PEG tube and Dudley catheter in place. Inguinal lymphadenopathy. Calcific arthropathy of the left hip. No acute intestinal abnormality hydronephrosis or suspicious abdominopelvic masses. Heme/ID: Severe anemia, likely secondary to chronic disease s/p 2 unit PRBCs on 11/28 Holding anticoagulation until etiology is determined Iron studies: low iron, low TIBC, high ferritin. suggests chronic disease as a cause. Daily CBC Pro calcitonin 1.4 intermediate risk. blood cultures 11/28 GPCs in 2/4 bottles sputum culture 11/28 GNR- ESBL 11/25 consult ID-appreciate recommendations Hemoccult negative CT of the abdomen and pelvis Endocrine: Hyperglycemia of critical illness Diabetes Glucose monitoring per ICU protocol -- SSI Prophylaxis: GI Prophylaxis IV PPI- BID DVT Prophylaxis -- SCDs Holding pharmacologic DVT prophylaxis in the setting of severe anemia Lines: Peripheral IVs Dudley Dispo: Continue ICU. Very critically ill. This patient remains critically ill with one or more organ systems which are or may become a threat to life. I have spent in excess of 31 minutes discontinuously in the care and management of this patient. This time is exclusive of procedures, and includes, but is not limited to, evaluation of the patient, review of the medical record, discussions with family, consultants, nursing staff, or respiratory therapy, and documentation in the medical record. Physician Tata Avila MD December 03, 2017 15:55
[2017-12-03] MEDS: RESP: ALBUTEROL 2.5 MG/IPRATROPIUM 0.5 MG NEB (PRN) INH (20:16)
[2017-12-04] VITALS (33 sets, daily range): BP systolic 125–188; BP diastolic 68–93; PULSE 75–83; RESP 18–35; TEMP 98.8–100.3; O2SAT 100
[2017-12-04] MEDS: CHLORHEXIDINE GLUCONATE 2 % 1 PACK (2 CLOTHS) TOP SCH (01:07)
[2017-12-04] MEDS: PROPOFOL 1000 MG/100 ML IV PRN ×3 (02:12→22:45)
[2017-12-04 04:42] LABS: MAGNESIUM 2.9 MG/DL (1.5-2.5); PHOSPHORUS 3.6 MG/DL (2.5-4.9)
[2017-12-04 04:43] LABS: RANDOM VANCOMYCIN 25.9 COMMENT
[2017-12-04 04:45] LABS: CALCIUM 8.1 MG/DL (8.5-10.1); CREATININE 1.58 MG/DL (0.60-1.30)
--- NOTE | 2017-12-04 04:55 | RADRPT ---
EXAM DATE: 12/04/2017 4:28 AM EDT AGE/SEX: 47 years / Male INDICATIONS: Short of breath. CLINICAL DATA: This is the patient's subsequent encounter. Patient reports that signs and symptoms h ave been present for 1 week and indicates a pain score of 0/10. MEDICAL/SURGICAL HISTORY: Diabetes. CABG. [place] [facility] [place]. . FINDINGS: There is mild improvement in parenchymal process in the left lung probably improvement in pulmonary e leonora. Moderate perivascular pulmonary edema remains. Left lung base consolidation is not excluded. En dotracheal tube has not changed. CONCLUSION: Moderate pulmonary edema is suspected, however there is slight overall improvement in aeration of the left lung is the prior exam. Electronically signed by: Elissa Hastings MD 12/04/2017 4:54 AM EDT
[2017-12-04 05:13] LABS: HEMATOCRIT 27.5 % (39.0-51.0); HEMOGLOBIN 9.2 GM/DL (13.0-17.0); MEAN CELL VOLUME 89.1 FL (80.0-100.0); MEAN CORPUSCULAR HEMOGLOBIN 29.9 PG (27.0-34.0); MEAN CORPUSCULAR HGB CONC 33.5 % (32.0-36.0); PLATELET COUNT 252 TH/MM3 (150-450); RED BLOOD COUNT 3.08 MIL/MM3 (4.50-5.90); RED CELL DISTRIBUTION WIDTH 14.1 % (11.6-17.2); WHITE BLOOD COUNT 6.5 TH/MM3 (4.0-11.0)
[2017-12-04] MEDS: INSULIN NovoLIN REGULAR SUPPLEMENTAL SCALE SQ SCH ×4 (05:21→23:26)
[2017-12-04] MEDS ORDERED: ICU - D/C ICU ELECTROLYTE ORDERS PRN (07:00)
[2017-12-04] MEDS ORDERED: ICU - CALL ORDERING PHYSICIAN PRN (07:00)
[2017-12-04] MEDS ORDERED: ICU - SODIUM PHOSPHATE 30 MMOL/NS 250 ML IV PRN ×2 (07:00)
[2017-12-04] MEDS ORDERED: ICU - MAGNESIUM OXIDE 400 MG TAB PO PRN (07:00)
[2017-12-04] MEDS ORDERED: ICU - POTASSIUM PHOSPHATE 30 MMOL/NS 250 ML IV PRN ×2 (07:00)
[2017-12-04] MEDS ORDERED: ICU - POTASSIUM PHOSPHATE MONOBASIC 500 MG TAB PO PRN (07:00)
[2017-12-04] MEDS ORDERED: ICU - MAGNESIUM SULFATE 4 GM/NS 100 ML IV PRN ×2 (07:00)
[2017-12-04] MEDS ORDERED: ICU - MAGNESIUM SULFATE 2 GM/NS 100 ML IV PRN ×2 (07:00)
[2017-12-04] MEDS ORDERED: ICU - POTASSIUM CHLORIDE/AQUEOUS SOLN 40 MEQ/100 ML IVPB IV PRN (07:00)
[2017-12-04] MEDS ORDERED: ICU - POTASSIUM CHLORIDE/AQUEOUS SOLN 20 MEQ/100 ML IVPB IV PRN (07:00)
[2017-12-04] MEDS: ARTIFICIAL TEARS OPTH SOLN 15 ML BTL EACH EYE SCH ×3 (08:48→17:14)
[2017-12-04] MEDS: ASPIRIN 81 MG CHEW TAB CHEW SCH (08:48)
[2017-12-04] MEDS: SODIUM CHLORIDE 0.9% FLUSH 10 ML FLUSH IV FLUSH SCH ×2 (08:48→21:09)
[2017-12-04] MEDS: COLLAGENASE OINT 30 GM TUBE TOPICAL SCH (08:49)
--- NOTE | 2017-12-04 09:44 | HHI.CCPN ---
Subjective Remarks/Hospital Course This is a 47-year-old male with a history of prior stroke who presented from [facility] facility by EMS for acute altered mental status. Per EMS reports, he was in his normal state of health last night and then with his reevaluated by the nursing staff and was a GCS of 3 with room air sats of 79%. Of note by the ED physician, the patient had pink frothy sputum on admission to the ER. He was emergently intubated by the emergency department. He has a chest x-ray which demonstrates bilateral infiltrates consistent with pulmonary edema. He has a BNP which is severely elevated at 1300. He has a elevated creatinine suggestive of acute kidney injury with an unknown baseline. Per report he has been treated for an MRSA skin infection. He is afebrile with a normal white count. Critical care medicine is consulted to evaluate manage his acute encephalopathy, multiorgan dysfunction. No additional information is available from the patient due to his severe encephalopathy. SUBJ 11/29: Remains intubated sedated with propofol for vent synchrony. According to RN he did follow commands upper extremities when sedation held. Chest exam reveals bilateral coarse rhonchi, crackles. CXR pending at this time 11/30: remains intubated. cxr with bilateral infiltrates again suggestive of volume overload. 12/01: T-max 100.6. Creatinine and change the patient continues to be positive with fluid, will follow up nephrology's recommendations regarding continued albumin and/Lasix therapy. Hemoglobin stable this a.m. at 7.9. Plan for CT of the abdomen and pelvis for possible source. Stool Hemoccult still pending. Consult ID , appreciate recommendations. Follow-up with podiatry concern for osteomyelitis. Plan for possible I&D bilateral foot ulcers today. 12/02: Late entry note patient seen at 12:45 PM. No acute events overnight. The patient underwent incision and debridement bilateral feet by podiatry today tolerated procedures well. Hemodynamically stable. Creatinine improving. The patient remains on CPAP greater than 8 hours. 12/03: No acute events overnight. The patient tolerated CPAP trials for approximately 8 hours hemodynamically stable. Tolerating tube feeds. 12/04: Tolerated CPAP trials approximately the 8 hours yesterday, on low-dose propofol. Plan to transition to Precedex to facilitate ventilator weaning. Noted chest x-ray slightly improved but pulmonary edema still persists. Patient tolerating tube feeds. Objective Vital Signs Date Time Temp Pulse Resp B/P (MAP) Pulse Ox O2 Delivery O2 Flow Rate FiO2 12/04/17 08:01 30 12/04/17 07:53 100 12/04/17 06:00 77 12/04/17 04:00 98.8 32 125/70 (88) Intake and Output 12/04/17 12/04/17 12/04/17 07:59 15:59 23:59 Intake Total 614 ml Output Total 500 ml Balance 114 ml Result Diagram: 12/04/17 0355 12/04/17 0355 Other Results Microbiology Date/Time Source Procedure Growth Status 12/01/17 17:30 Stool Stool Stool Occult Blood (MADALYN) - Final HEMOCCULT NEGATIVE Complete Imaging Last Impressions Chest X-Ray 12/04/17599 Signed Impressions: CONCLUSION: Moderate pulmonary edema is suspected, however there is slight overall improvem ent in aeration of the left lung is the prior exam. Foot X-Ray 12/02/17 Signed Impressions: CONCLUSION: 1. Very limited study. 2. No gross acute abnormality. Abdomen/Pelvis CT 12/01/17 Signed Impressions: CONCLUSION: 1. Bibasilar consolidating lung infiltrate 2. Hepatosplenomegaly 3. Calcified adrenal glands. 4. Trace ascites. 5. PEG tube and Dudley catheter in place. 6. Inguinal lymphadenopathy. 7. Calcific arthropathy of the left hip. 8. No acute intestinal abnormality hydronephrosis or suspicious abdominopelvic masses. Renal Ultrasound 11/28/17 Signed Impressions: CONCLUSION: 1. Echogenic kidneys consistent with medical renal disease. 2. No obstructive uropathy. Head CT 11/28/17 Signed Impressions: CONCLUSION: 1. No acute hemorrhage or mass effect. 2. Large area of encephalomalacia involving the right frontal and parietal lob e. 3. Chronic sinusitis. Brain MRI 11/28/17 Signed Impressions: CONCLUSION: 1. Large area of encephalomalacia in the right medial frontal parietal high co nvexities extending to the vertex. 2. No evidence for acute abnormality. Specifically, no acute infarction, hemor rhage or hydrocephalus. 3. Paranasal sinus mucosal disease. Last Impressions Chest X-Ray 12/02/17599 Signed Impressions: CONCLUSION: No significant change. Left greater than right parenchymal consolidation and sm all left pleural effusion again noted. Foot X-Ray 12/02/17 Signed Impressions: CONCLUSION: 1. Very limited study. 2. No gross acute abnormality. Abdomen/Pelvis CT 12/01/17 Signed Impressions: CONCLUSION: 1. Bibasilar consolidating lung infiltrate 2. Hepatosplenomegaly 3. Calcified adrenal glands. 4. Trace ascites. 5. PEG tube and Dudley catheter in place. 6. Inguinal lymphadenopathy. 7. Calcific arthropathy of the left hip. 8. No acute intestinal abnormality hydronephrosis or suspicious abdominopelvic masses. Renal Ultrasound 11/28/17 Signed Impressions: CONCLUSION: 1. Echogenic kidneys consistent with medical renal disease. 2. No obstructive uropathy. Head CT 11/28/17 Signed Impressions: CONCLUSION: 1. No acute hemorrhage or mass effect. 2. Large area of encephalomalacia involving the right frontal and parietal lob e. 3. Chronic sinusitis. Brain MRI 11/28/17 Signed Impressions: CONCLUSION: 1. Large area of encephalomalacia in the right medial frontal parietal high co nvexities extending to the vertex. 2. No evidence for acute abnormality. Specifically, no acute infarction, hemor rhage or hydrocephalus. 3. Paranasal sinus mucosal disease. Last Impressions Chest X-Ray 11/30/17 0600 Signed Impressions: CONCLUSION: Patchy areas of increased density related to areas of consolidation or atelecta sis. Renal Ultrasound 11/28/17 Signed Impressions: CONCLUSION: 1. Echogenic kidneys consistent with medical renal disease. 2. No obstructive uropathy. Head CT 11/28/17 Signed Impressions: CONCLUSION: 1. No acute hemorrhage or mass effect. 2. Large area of encephalomalacia involving the right frontal and parietal lob e. 3. Chronic sinusitis. Brain MRI 11/28/17 Signed Impressions: CONCLUSION: 1. Large area of encephalomalacia in the right medial frontal parietal high co nvexities extending to the vertex. 2. No evidence for acute abnormality. Specifically, no acute infarction, hemor rhage or hydrocephalus. 3. Paranasal sinus mucosal disease. Objective Remarks GENERAL: This is a -[place] middle-age male well-developed well- nourished who appears much older than stated age, lying in bed, intubated, sedated with propofol HEENT: Normocephalic. Atraumatic. Pupils equal, round, reactive, conjugate. Orotracheally intubated NECK: Trachea is midline. Positive JVD CHEST: Intubated with an 8.0 ET tube. Equal chest rise. PRVC. 40% FiO2. Bilateral coarse rhonchi and crackles CARDIOVASCULAR: Normal rate, regular rhythm. Appears sinus by telemetry. ABDOMEN: Soft, nontender, nondistended. No guarding. MUSCULOSKELETAL: Pulses 2+. 2+ peripheral edema B/L upper and lower extremity NEUROLOGICAL: Intubated sedated with propofol. Weakly withdraws to pain. Positive corneal reflexes. Positive cough. Positive gag. (Does follow commands to RN when sedation was held) A/P Assessment and Plan Assessment: 47-year-old male with prior stroke who presents with severe acute congestive heart failure exacerbation, unknown type, with associated acute hypoxic and hypercarbic respiratory failure, acute metabolic encephalopathy, acute kidney injury. Remains critically ill. still awaiting echo to determine ventricular function. still appears cardiac in origin and not infectious. remains afebrile with normal wbc count. remains very critically ill with minimal if any improvement over last 48h. off pathway. Plan by systems: Neurologic: Acute metabolic encephalopathy History of prior CVA MRI-old frontoparietal encephalomalacia, no acute findings EEG-generalized slowing without seizures Frequent neurochecks Propofol for goal RASS -2, Avoid long-acting sedatives. daily sedation vacation Tox screen, UDS positive only for benzodiazepines Check ammonia TSH. B12 normal Respiratory: Acute hypoxic and hypercarbic respiratory failure Moderate pulmonary edema Vent bundle, Head of bed elevated Nebs every 6 hours scheduled and as needed Continue CPAP trials-now averaging 8 hours a day Wean FiO2 for goal SPO2 greater than 90% Cardiovascular: Acute severe congestive heart failure exacerbation, unknown type Mildly Elevated troponin Lasix 80 mg IV 1 given 11/29, now scheduled Lasix 40 every 12 with IV albumin 12/01 2D echo -EF 60-65%, trace TR, mild LAE, mild MVR, No RWMA Patient has severe anemia with a hemoglobin of 5.9 , status post transfusion 2 units of packed cells, continue to monitor H&H 12/02 ASA resumed Renal: Acute kidney injury superimposed on chronic renal insufficiency with an unknown baseline Likely secondary to venous congestion from CHF Continue Dudley Diuresis as above Renal ultrasound: no obstruction or hydro FENa on admission 3.7% (unknown if on chronic lasix) FEUrea on admission 47.3%- suggestive of intrinsic renal disease. urine eosinophils negative -Strict I/Os -Nephrology following-creatinine decreasing now 1.5 FEN/GI: Acute intravascular volume overload Diuresis as above Tube feeds with Nepro, minimal residual 12/01 CT of the abdomen and pelvis- Bibasilar consolidating lung infiltrate. Hepatosplenomegaly Calcified adrenal glands. Trace ascites. PEG tube and Dudley catheter in place. Inguinal lymphadenopathy. Calcific arthropathy of the left hip. No acute intestinal abnormality hydronephrosis or suspicious abdominopelvic masses. Heme/ID: Severe anemia, likely secondary to chronic disease s/p 2 unit PRBCs on 11/28 Holding anticoagulation until etiology is determined Iron studies: low iron, low TIBC, high ferritin. suggests chronic disease as a cause. Daily CBC Pro calcitonin 1.4 intermediate risk. blood cultures 11/28 GPCs in 2/4 bottles sputum culture 11/28 GNR- ESBL 11/25 consult ID-appreciate recommendations Hemoccult negative CT of the abdomen and pelvis Endocrine: Hyperglycemia of critical illness Diabetes Glucose monitoring per ICU protocol -- SSI Prophylaxis: GI Prophylaxis IV PPI- BID DVT Prophylaxis -- SCDs Heparin SQ reinitiated 12/04 Lines: Peripheral IVs Dudley Dispo: Level 3 follow up Physician Tata Avila MD December 04, 2017 09:44
[2017-12-04] MEDS: POTASSIUM CHLORIDE 25 MEQ EFFERVESCENT TAB PO PRN (10:09)
[2017-12-04] MEDS: DEXMEDETOMIDINE INJ 200 MCG in SODIUM CHLORIDE 0.9% INJ 50 ML IV PRN ×2 (10:34→14:11)
[2017-12-04] MEDS: PANTOPRAZOLE SODIUM 40 MG VIAL IV PUSH SCH ×2 (10:40→23:26)
[2017-12-04] MEDS: ERTAPENEM INJ 500 MG in SODIUM CHLORIDE 0.9% INJ 100 ML IV SCH (12:05)
[2017-12-04] MEDS: ACETAMINOPHEN 325 MG TAB PO PRN (12:47)
[2017-12-04] MEDS: LABETALOL HCL 100 MG/20 ML VIAL IV PUSH PRN (16:24)
[2017-12-04] MEDS ORDERED: hydrALAZINE HCL 20 MG/ML VIAL IV PUSH PRN (16:30)
[2017-12-04] MEDS: DOCUSATE SODIUM 50 MG/SENNA 8.6 MG TAB PO SCH (21:09)
--- NOTE | 2017-12-04 21:58 | PD.POD ---
Subjective Podiatric Problems History of chronic ulcerations to feet Past Med/Surg/Social History Social History Smoking Status: Never Smoker Objective Vital Signs Vital Signs Date Time Temp Pulse Resp B/P (MAP) Pulse Ox O2 Delivery O2 Flow Rate FiO2 12/04/17 21:34 100 30 12/04/17 18:00 75 12/04/17 16:00 100.2 75 18 188/93 (124) 100 12/04/17 16:00 30 12/04/17 16:00 75 12/04/17 15:41 100 30 12/04/17 15:16 30 12/04/17 15:14 100 30 12/04/17 14:00 78 12/04/17 13:47 22 12/04/17 12:00 81 12/04/17 12:00 100.3 81 31 157/85 (109) 100 12/04/17 12:00 30 12/04/17 11:00 30 12/04/17 10:45 100 30 12/04/17 10:00 30 12/04/17 10:00 78 12/04/17 09:30 30 12/04/17 09:00 30 12/04/17 08:01 30 12/04/17 08:00 78 12/04/17 08:00 30 12/04/17 08:00 99.9 78 35 151/81 (104) 100 12/04/17 07:53 30 12/04/17 07:53 100 30 12/04/17 06:00 77 12/04/17 04:00 98.8 80 32 125/70 (88) 100 12/04/17 04:00 80 12/04/17 04:00 30 12/04/17 03:35 100 30 12/04/17 03:30 81 27 127/71 (89) 100 12/04/17 03:00 81 33 155/78 (103) 100 12/04/17 02:30 80 31 137/75 (95) 100 12/04/17 02:00 79 12/04/17 02:00 30 12/04/17 02:00 79 18 133/68 (89) 100 12/04/17 01:30 81 18 131/68 (89) 100 12/04/17 01:00 83 19 130/76 (94) 100 12/04/17 00:30 80 20 134/76 (95) 100 12/04/17 00:11 100 30 12/04/17 00:00 98.9 77 20 130/68 (88) 100 12/04/17 00:00 77 12/04/17 00:00 40 12/03/17 23:30 80 22 140/82 (101) 100 12/03/17 23:00 77 18 123/66 (85) 100 12/03/17 22:30 78 23 137/77 (97) 100 12/03/17 22:00 76 18 129/70 (89) 100 12/03/17 22:00 76 Coded Allergies: No Known Allergies (Verified Allergy, Severe, 11/03/06) Other Results Last 72 hours Impressions Chest X-Ray 12/04/17 06 Signed Impressions: CONCLUSION: Moderate pulmonary edema is suspected, however there is slight overall improvem ent in aeration of the left lung is the prior exam. Chest X-Ray 12/02/17 0600 Signed Impressions: CONCLUSION: No significant change. Left greater than right parenchymal consolidation and sm all left pleural effusion again noted. Foot X-Ray 12/02/17 0000 Signed Impressions: CONCLUSION: 1. Very limited study. 2. No gross acute abnormality. Foot X-Ray 12/02/17 0000 Signed Impressions: CONCLUSION: 1. Very limited study. 2. Concern for osteomyelitis involving the fifth metatarsal head. Assessment & Plan A/P Chronic ulcerations to feet, s/p bedside debridement Reviewed XR results with concern for osteomyelitis to left 5th met head area. Ordered bilateral MRI R and L feet to assess further. Will review and form treatment plan. Dieudonne Forrester DPM December 04, 2017 21:58
[2017-12-05] VITALS (31 sets, daily range): BP systolic 113–165; BP diastolic 63–82; PULSE 76–101; RESP 15–26; TEMP 99.1–100.7; O2SAT 100
[2017-12-05] MEDS: CHLORHEXIDINE GLUCONATE 2 % 1 PACK (2 CLOTHS) TOP SCH (03:05)
[2017-12-05] MEDS: PROPOFOL 1000 MG/100 ML IV PRN ×2 (04:02→12:22)
--- NOTE | 2017-12-05 04:08 | RADRPT ---
EXAM DATE: 12/05/2017 4:04 AM EDT AGE/SEX: 47 years / Male INDICATIONS: Short of breath. CLINICAL DATA: This is the patient's subsequent encounter. Patient reports that signs and symptoms h ave been present for 1 week and indicates a pain score of 0/10. MEDICAL/SURGICAL HISTORY: . Diabetes mellitus type II. Hypertension. Stroke. CABG. COMPARISON: [facility], CHEST SINGLE AP, 12/04/2017. . FINDINGS: ET tube is present not changed. Perivascular pulmonary edema is present not significantly changed wit h parenchymal process left lung base not significantly changed. CONCLUSION: No appreciable change. Electronically signed by: Elissa Hastings MD 12/05/2017 4:06 AM EDT
[2017-12-05] MEDS: RESP: ALBUTEROL 2.5 MG/IPRATROPIUM 0.5 MG NEB (PRN) INH ×2 (04:52→16:27)
[2017-12-05 05:29] LABS: HEMATOCRIT 26.3 % (39.0-51.0); HEMOGLOBIN 8.7 GM/DL (13.0-17.0); MEAN CELL VOLUME 89.7 FL (80.0-100.0); MEAN CORPUSCULAR HEMOGLOBIN 29.7 PG (27.0-34.0); MEAN CORPUSCULAR HGB CONC 33.1 % (32.0-36.0); PLATELET COUNT 263 TH/MM3 (150-450); RED BLOOD COUNT 2.93 MIL/MM3 (4.50-5.90); RED CELL DISTRIBUTION WIDTH 14.1 % (11.6-17.2); WHITE BLOOD COUNT 7.2 TH/MM3 (4.0-11.0)
[2017-12-05 05:51] LABS: BICARBONATE 24.5 MEQ/L (21.0-32.0); CALCIUM 8.4 MG/DL (8.5-10.1); CREATININE 1.64 MG/DL (0.60-1.30)
[2017-12-05 05:53] LABS: PHOSPHORUS 3.8 MG/DL (2.5-4.9)
[2017-12-05] MEDS: INSULIN NovoLIN REGULAR SUPPLEMENTAL SCALE SQ SCH ×2 (05:58→12:21)
[2017-12-05] MEDS: DOCUSATE SODIUM 50 MG/SENNA 8.6 MG TAB PO SCH ×2 (08:06→20:49)
[2017-12-05] MEDS: ARTIFICIAL TEARS OPTH SOLN 15 ML BTL EACH EYE SCH ×3 (08:06→17:59)
[2017-12-05] MEDS: ASPIRIN 81 MG CHEW TAB CHEW SCH (08:06)
[2017-12-05] MEDS: SODIUM CHLORIDE 0.9% FLUSH 10 ML FLUSH IV FLUSH SCH ×2 (08:07→20:49)
[2017-12-05] MEDS: COLLAGENASE OINT 30 GM TUBE TOPICAL SCH (08:07)
[2017-12-05] MEDS: PANTOPRAZOLE SODIUM 40 MG VIAL IV PUSH SCH (12:21)
[2017-12-05] MEDS: ERTAPENEM INJ 500 MG in SODIUM CHLORIDE 0.9% INJ 100 ML IV SCH (12:21)
[2017-12-05] MEDS ORDERED: VANCOMYCIN INJ 1,500 MG in SODIUM CHLORID 0.9% 500 ML INJ 500 ML IV ONE (13:00)
--- NOTE | 2017-12-05 16:15 | HHI.CCPN ---
Subjective Remarks/Hospital Course This is a 47-year-old male with a history of prior stroke who presented from senior living facility by EMS for acute altered mental status. Per EMS reports, he was in his normal state of health last night and then with his reevaluated by the nursing staff and was a GCS of 3 with room air sats of 79%. Of note by the ED physician, the patient had pink frothy sputum on admission to the ER. He was emergently intubated by the emergency department. He has a chest x-ray which demonstrates bilateral infiltrates consistent with pulmonary edema. He has a BNP which is severely elevated at 1300. He has a elevated creatinine suggestive of acute kidney injury with an unknown baseline. Per report he has been treated for an MRSA skin infection. He is afebrile with a normal white count. Critical care medicine is consulted to evaluate manage his acute encephalopathy, multiorgan dysfunction. No additional information is available from the patient due to his severe encephalopathy. SUBJ 11/29: Remains intubated sedated with propofol for vent synchrony. According to RN he did follow commands upper extremities when sedation held. Chest exam reveals bilateral coarse rhonchi, crackles. CXR pending at this time 11/30: remains intubated. cxr with bilateral infiltrates again suggestive of volume overload. 12/01: T-max 100.6. Creatinine and change the patient continues to be positive with fluid, will follow up nephrology's recommendations regarding continued albumin and/Lasix therapy. Hemoglobin stable this a.m. at 7.9. Plan for CT of the abdomen and pelvis for possible source. Stool Hemoccult still pending. Consult ID , appreciate recommendations. Follow-up with podiatry concern for osteomyelitis. Plan for possible I&D bilateral foot ulcers today. 12/02: Late entry note patient seen at 12:45 PM. No acute events overnight. The patient underwent incision and debridement bilateral feet by podiatry today tolerated procedures well. Hemodynamically stable. Creatinine improving. The patient remains on CPAP greater than 8 hours. 12/03: No acute events overnight. The patient tolerated CPAP trials for approximately 8 hours hemodynamically stable. Tolerating tube feeds. 12/04: Tolerated CPAP trials approximately the 8 hours yesterday, on low-dose propofol. Plan to transition to Precedex to facilitate ventilator weaning. Noted chest x-ray slightly improved but pulmonary edema still persists. Patient tolerating tube feeds. 12/05: Late entry note. Patient seen at 7:20 AM. The patient tolerated CPAP trials for approximately 16 hours. Plan for MRI bilateral feet today. Patient has been transitioned to Precedex infusion. Patient noted to have continued elevated blood glucose levels patient transitioned to high dose sliding scale. Objective Vital Signs Date Time Temp Pulse Resp B/P (MAP) Pulse Ox O2 Delivery O2 Flow Rate FiO2 12/05/17 14:00 85 18 126/70 (88) 100 12/05/17 12:00 30 12/05/17 12:00 100.2 Intake and Output 12/05/17 12/05/17 12/06/17 08:00 16:00 00:00 Intake Total 626 ml 168 ml Output Total 400 ml Balance 226 ml 168 ml Result Diagram: 12/05/17 03312/05/17 033 Imaging Last Impressions Chest X-Ray 12/05/17 06 Signed Impressions: CONCLUSION: No appreciable change. Foot X-Ray 12/02/17 Signed Impressions: CONCLUSION: 1. Very limited study. 2. No gross acute abnormality. Abdomen/Pelvis CT 12/01/17 Signed Impressions: CONCLUSION: 1. Bibasilar consolidating lung infiltrate 2. Hepatosplenomegaly 3. Calcified adrenal glands. 4. Trace ascites. 5. PEG tube and Dudley catheter in place. 6. Inguinal lymphadenopathy. 7. Calcific arthropathy of the left hip. 8. No acute intestinal abnormality hydronephrosis or suspicious abdominopelvic masses. Renal Ultrasound 11/28/17 Signed Impressions: CONCLUSION: 1. Echogenic kidneys consistent with medical renal disease. 2. No obstructive uropathy. Head CT 11/28/17 Signed Impressions: CONCLUSION: 1. No acute hemorrhage or mass effect. 2. Large area of encephalomalacia involving the right frontal and parietal lob e. 3. Chronic sinusitis. Brain MRI 11/28/17 Signed Impressions: CONCLUSION: 1. Large area of encephalomalacia in the right medial frontal parietal high co nvexities extending to the vertex. 2. No evidence for acute abnormality. Specifically, no acute infarction, hemor rhage or hydrocephalus. 3. Paranasal sinus mucosal disease. Last Impressions Chest X-Ray 12/04/17 06 Signed Impressions: CONCLUSION: Moderate pulmonary edema is suspected, however there is slight overall improvem ent in aeration of the left lung is the prior exam. Foot X-Ray 12/02/17 Signed Impressions: CONCLUSION: 1. Very limited study. 2. No gross acute abnormality. Abdomen/Pelvis CT 12/01/17 Signed Impressions: CONCLUSION: 1. Bibasilar consolidating lung infiltrate 2. Hepatosplenomegaly 3. Calcified adrenal glands. 4. Trace ascites. 5. PEG tube and Dudley catheter in place. 6. Inguinal lymphadenopathy. 7. Calcific arthropathy of the left hip. 8. No acute intestinal abnormality hydronephrosis or suspicious abdominopelvic masses. Renal Ultrasound 11/28/17 Signed Impressions: CONCLUSION: 1. Echogenic kidneys consistent with medical renal disease. 2. No obstructive uropathy. Head CT 11/28/17 Signed Impressions: CONCLUSION: 1. No acute hemorrhage or mass effect. 2. Large area of encephalomalacia involving the right frontal and parietal lob e. 3. Chronic sinusitis. Brain MRI 11/28/17 Signed Impressions: CONCLUSION: 1. Large area of encephalomalacia in the right medial frontal parietal high co nvexities extending to the vertex. 2. No evidence for acute abnormality. Specifically, no acute infarction, hemor rhage or hydrocephalus. 3. Paranasal sinus mucosal disease. Last Impressions Chest X-Ray 12/02/17 0600 Signed Impressions: CONCLUSION: No significant change. Left greater than right parenchymal consolidation and sm all left pleural effusion again noted. Foot X-Ray 12/02/17 Signed Impressions: CONCLUSION: 1. Very limited study. 2. No gross acute abnormality. Abdomen/Pelvis CT 12/01/17 Signed Impressions: CONCLUSION: 1. Bibasilar consolidating lung infiltrate 2. Hepatosplenomegaly 3. Calcified adrenal glands. 4. Trace ascites. 5. PEG tube and Dudley catheter in place. 6. Inguinal lymphadenopathy. 7. Calcific arthropathy of the left hip. 8. No acute intestinal abnormality hydronephrosis or suspicious abdominopelvic masses. Renal Ultrasound 11/28/17 Signed Impressions: CONCLUSION: 1. Echogenic kidneys consistent with medical renal disease. 2. No obstructive uropathy. Head CT 11/28/17 Signed Impressions: CONCLUSION: 1. No acute hemorrhage or mass effect. 2. Large area of encephalomalacia involving the right frontal and parietal lob e. 3. Chronic sinusitis. Brain MRI 11/28/17 Signed Impressions: CONCLUSION: 1. Large area of encephalomalacia in the right medial frontal parietal high co nvexities extending to the vertex. 2. No evidence for acute abnormality. Specifically, no acute infarction, hemor rhage or hydrocephalus. 3. Paranasal sinus mucosal disease. Last Impressions Chest X-Ray 11/30/17 06 Signed Impressions: CONCLUSION: Patchy areas of increased density related to areas of consolidation or atelecta sis. Renal Ultrasound 11/28/17 Signed Impressions: CONCLUSION: 1. Echogenic kidneys consistent with medical renal disease. 2. No obstructive uropathy. Head CT 11/28/17 Signed Impressions: CONCLUSION: 1. No acute hemorrhage or mass effect. 2. Large area of encephalomalacia involving the right frontal and parietal lob e. 3. Chronic sinusitis. Brain MRI 11/28/17 Signed Impressions: CONCLUSION: 1. Large area of encephalomalacia in the right medial frontal parietal high co nvexities extending to the vertex. 2. No evidence for acute abnormality. Specifically, no acute infarction, hemor rhage or hydrocephalus. 3. Paranasal sinus mucosal disease. Objective Remarks GENERAL: This is a -[place] middle-age male well-developed well- nourished who appears much older than stated age, lying in bed, intubated, sedated with propofol HEENT: Normocephalic. Atraumatic. Pupils equal, round, reactive, conjugate. Orotracheally intubated NECK: Trachea is midline. Positive JVD CHEST: Intubated with an 8.0 ET tube. Equal chest rise. PRVC. 40% FiO2. Bilateral coarse rhonchi and crackles CARDIOVASCULAR: Normal rate, regular rhythm. Appears sinus by telemetry. ABDOMEN: Soft, nontender, nondistended. No guarding. MUSCULOSKELETAL: Pulses 2+. 2+ peripheral edema B/L upper and lower extremity NEUROLOGICAL: Intubated sedated with propofol. Weakly withdraws to pain. Positive corneal reflexes. Positive cough. Positive gag. (Does follow commands to RN when sedation was held) A/P Assessment and Plan Assessment: 47-year-old male with prior stroke who presents with severe acute congestive heart failure exacerbation, unknown type, with associated acute hypoxic and hypercarbic respiratory failure, acute metabolic encephalopathy, acute kidney injury. Remains critically ill. still awaiting echo to determine ventricular function. still appears cardiac in origin and not infectious. remains afebrile with normal wbc count. remains very critically ill with minimal if any improvement over last 48h. off pathway. Plan by systems: Neurologic: Acute metabolic encephalopathy History of prior CVA MRI-old frontoparietal encephalomalacia, no acute findings EEG-generalized slowing without seizures Frequent neurochecks Propofol for goal RASS -2, Avoid long-acting sedatives. daily sedation vacation Tox screen, UDS positive only for benzodiazepines Check ammonia TSH. B12 normal Respiratory: Acute hypoxic and hypercarbic respiratory failure Moderate pulmonary edema Vent bundle, Head of bed elevated Nebs every 6 hours scheduled and as needed Continue CPAP trials-now averaging 12-16 hours a day Wean FiO2 for goal SPO2 greater than 90% Cardiovascular: Acute severe congestive heart failure exacerbation, unknown type Mildly Elevated troponin Lasix 80 mg IV 1 given 11/29, now scheduled Lasix 40 every 12 with IV albumin 12/01 2D echo -EF 60-65%, trace TR, mild LAE, mild MVR, No RWMA Patient has severe anemia with a hemoglobin of 5.9 , status post transfusion 2 units of packed cells, continue to monitor H&H 12/02 ASA resumed Renal: Acute kidney injury superimposed on chronic renal insufficiency with an unknown baseline Likely secondary to venous congestion from CHF Continue Dudley Diuresis as above Renal ultrasound: no obstruction or hydro FENa on admission 3.7% (unknown if on chronic lasix) FEUrea on admission 47.3%- suggestive of intrinsic renal disease. urine eosinophils negative -Nephrology following FEN/GI: Acute intravascular volume overload Diuresis as above Tube feeds with Nepro, minimal residual 12/01 CT of the abdomen and pelvis- Bibasilar consolidating lung infiltrate. Hepatosplenomegaly Calcified adrenal glands. Trace ascites. PEG tube and Dudley catheter in place. Inguinal lymphadenopathy. Calcific arthropathy of the left hip. No acute intestinal abnormality hydronephrosis or suspicious abdominopelvic masses. Heme/ID: Severe anemia, likely secondary to chronic disease s/p 2 unit PRBCs on 11/28 Holding anticoagulation until etiology is determined Iron studies: low iron, low TIBC, high ferritin. suggests chronic disease as a cause. Daily CBC Pro calcitonin 1.4 intermediate risk. blood cultures 11/28 GPCs in 2/4 bottles sputum culture 11/28 GNR- ESBL 11/25 ID following Hemoccult negative CT of the abdomen and pelvis Endocrine: Hyperglycemia of critical illness Diabetes Glucose monitoring per ICU protocol, high dose regimen -- SSI Prophylaxis: GI Prophylaxis IV PPI- BID DVT Prophylaxis -- SCDs Heparin SQ reinitiated 12/04 Lines: Peripheral IVs Dudley Dispo: Level 3 follow up Physician Tata Avila MD December 05, 2017 16:15
--- NOTE | 2017-12-05 16:32 | RADRPT ---
EXAM DATE: 12/05/2017 4:08 PM EDT AGE/SEX: 47 years / Male INDICATIONS: Edema. Lateral side celluitis CLINICAL DATA: This is the patient's subsequent encounter. Patient reports that signs and symptoms h ave been present for 1 week and indicates a pain score of Nonresponsive. MEDICAL/SURGICAL HISTORY: . DM, HTN, MRSA, Anemia, Hemiparesis, CVA, Hiatal Hernia, . Debridem ent left foot 11/28/17, Sternotomy COMPARISON: No prior exams available for comparison. TECHNIQUE: Multiplanar, multisequence MRI examination was performed without contrast and after th e intravenous administration of 18 ml Omniscan (gadodiamide) single exam dose. FINDINGS: Bones: There are abnormal areas of marrow within the residual fifth metatarsal shaft and the fourth m etatarsal head. The distal part of the fifth metatarsal bone has been resected. There is significant residual edema and inflammation and diffuse enhancement. There is a soft tissue ulcer along the later al aspect directly adjacent to the fifth metatarsal remaining edge with enhancement patterns concerni ng for residual osteomyelitis Joint Spaces: No joint effusion or loose bodies are seen. The joint spaces are preserved. Tendons: The flexor tendons are intact. Other: The plantar fascia is intact. Diffuse edema in the plantar musculature. Post Contrast: Marked enhancement throughout the lateral aspect of the foot. CONCLUSION: 1. Marked enhancement in the subcutaneous tissues in the lateral aspect of the foot. Abnormal areas of bone marrow edema in the fifth metatarsal shaft concerning for residual osteomyelitis. There is al so edema in the fourth metatarsal head concerning for an additional area of osteomyelitis Electronically signed by: Dave Marie MD 12/05/2017 4:31 PM EDT
[2017-12-05] MEDS ORDERED: GADODIAMIDE PF 287 MG/ML 20 ML VIAL (for RAD MRI) IVCONTRAST ONE (16:51)
[2017-12-05] MEDS ORDERED: ACETAMINOPHEN/HYDROcodone 325 MG/5 MG TAB PO PRN (17:00)
[2017-12-05] MEDS ORDERED: INSULIN ASPART SUPPLEMENTAL SCALE SQ SCH (17:00)
[2017-12-05] MEDS: DEXMEDETOMIDINE INJ 200 MCG in SODIUM CHLORIDE 0.9% INJ 50 ML IV PRN (17:06)
[2017-12-05] MEDS: INSULIN ASPART SUPPLEMENTAL SCALE SQ SCH (17:58)
[2017-12-05] MEDS: DEXMEDETOMIDINE INJ 1,000 MCG in SODIUM CHLOR 0.9% 250 ML INJ 240 ML IV PRN (20:51)
[2017-12-05] MEDS: LABETALOL HCL 100 MG/20 ML VIAL IV PUSH PRN (22:20)
--- NOTE | 2017-12-05 23:08 | RADRPT ---
EXAM DATE: 12/05/2017 4:38 PM EDT AGE/SEX: 47 years / Male INDICATIONS: Edema. Right foot lateral pain CLINICAL DATA: This is the patient's subsequent encounter. Patient reports that signs and symptoms h ave been present for 4 - 6 days and indicates a pain score of Nonresponsive. MEDICAL/SURGICAL HISTORY: . DM, HTN, MRSA, Anemia, Hemiparesis, CVA, Hiatal Hernia . Sternotom yFeeding tube placement COMPARISON: No prior exams available for comparison. TECHNIQUE: Multiplanar, multisequence MRI examination was performed without contrast and after th e intravenous administration of 18 ml Omniscan (gadodiamide) single exam dose. FINDINGS: On the sagittal T2 sequence is an area of bright signal involving the tip of the distal fifth metatar jeannie probably artifactual since the T1 sequence and postcontrast portion of this area is unremarkable. Very mild case of edema at this site is very difficult to exclude. There is of the marrow appears in tact. There is no soft tissue abscess or edema. The tendinous structures are grossly intact. CONCLUSION: 1. Probable artifact involving the distal portion of the fifth metatarsal on the T2 sequence could b e further characterized with bone scan based on clinical grounds. Otherwise unremarkable. Electronically signed by: Elissa Hastings MD 12/05/2017 11:07 PM EDT
[2017-12-06] VITALS (15 sets, daily range): BP systolic 128–187; BP diastolic 65–97; PULSE 72–87; RESP 1–18; TEMP 98.8–101.9; O2SAT 95–100
[2017-12-06] MEDS: PANTOPRAZOLE SODIUM 40 MG VIAL IV PUSH SCH ×3 (00:43→23:23)
[2017-12-06] MEDS: LABETALOL HCL 100 MG/20 ML VIAL IV PUSH PRN ×2 (01:44→23:23)
[2017-12-06] MEDS: hydrALAZINE HCL 100 MG TAB PO SCH ×3 (01:44→17:53)
[2017-12-06] MEDS: CHLORHEXIDINE GLUCONATE 2 % 1 PACK (2 CLOTHS) TOP SCH (04:00)
[2017-12-06] MEDS: INSULIN ASPART SUPPLEMENTAL SCALE SQ SCH ×5 (06:00→23:23)
[2017-12-06 06:07] LABS: BICARBONATE 20.5 MEQ/L (21.0-32.0); CALCIUM 8.5 MG/DL (8.5-10.1); CREATININE 1.54 MG/DL (0.60-1.30)
--- NOTE | 2017-12-06 06:44 | RADRPT ---
EXAM DATE: 12/06/2017 6:05 AM EDT AGE/SEX: 47 years / Male INDICATIONS: Shortness of breath, possible pulmonary disease. CLINICAL DATA: This is the patient's subsequent encounter. Patient reports that signs and symptoms h ave been present for 1 week and indicates a pain score of Nonresponsive. MEDICAL/SURGICAL HISTORY: Diabetes mellitus type II. Hypertension. Stroke. CABG. COMPARISON: [facility], CHEST SINGLE AP, 12/05/2017. . FINDINGS: ET tube has not changed. There is questionable slight worsening in perivascular pulmonary edema. CONCLUSION: Possible slight worsening of pulmonary edema since the prior exam. Electronically signed by: Elissa Hastings MD 12/06/2017 6:43 AM EDT
[2017-12-06] MEDS: ASPIRIN 81 MG CHEW TAB CHEW SCH (08:21)
[2017-12-06] MEDS: DEXMEDETOMIDINE INJ 1,000 MCG in SODIUM CHLOR 0.9% 250 ML INJ 240 ML IV PRN ×2 (08:21→17:53)
[2017-12-06] MEDS: SODIUM CHLORIDE 0.9% FLUSH 10 ML FLUSH IV FLUSH SCH ×2 (08:21→19:40)
[2017-12-06] MEDS: ARTIFICIAL TEARS OPTH SOLN 15 ML BTL EACH EYE SCH ×3 (08:21→17:53)
[2017-12-06] MEDS: COLLAGENASE OINT 30 GM TUBE TOPICAL SCH (08:22)
[2017-12-06] MEDS: DOCUSATE SODIUM 50 MG/SENNA 8.6 MG TAB PO SCH ×2 (08:22→21:00)
[2017-12-06] MEDS: ACETAMINOPHEN 325 MG TAB PO PRN (08:41)
[2017-12-06] MEDS ORDERED: ASP: Documented ESBL, MDR A baumannii or P. aeruginosa PRN (10:00)
[2017-12-06] MEDS ORDERED: PHARMACY INFORMATION XX PRN (10:00)
--- NOTE | 2017-12-06 10:00 | HHI.IDPN ---
Subjective Subjective Remarks Patient is a 47-year-old male, who [facility] a [facility] the [facility], with history of CVA, brought into the hospital for decreased level of consciousness, decreased oxygen saturation. In the ED he was noted to have some pink frothy sputum. He was emergently intubated. His chest x-ray showed bilateral pulmonary infiltrates consistent with pulmonary edema. 2 blood cultures were done in the emergency room, and they are both growing staph hominis. Sputum culture also is now reported as growing Klebsiella ESBL positive. His chest x- ray has shown some worsening of his infiltrates. He was also found to have acute kidney injury. Patient is being managed for pulmonary edema, as well as sepsis. He has been getting vancomycin as well as Zosyn. He was initially febrile on his first hospital day, but that has improved. Patient's white count has been normal. Patient remains on the respirator. He has good urine output, but his creatinine remains elevated. There is no evidence of obstruction on his renal ultrasound. CT of the abdomen and pelvis are showing chronic changes of encephalomalacia compatible with his prior history of CVA. Infectious disease consultation has been requested to evaluate the patient. Notes reviewed Has had intermittent fevers last 2 days On the vent No central line HAs triplett cath Has a lot of ET secretions, beige brownish color CXR worsening infiltrates Antibiotics Invanz Vancomycin Current Medications Medications (Trade) Dose Ordered Sig/Arthur Route Start Time Stop Time Status Last Admin (Brethine Inj) 1 mg UNSCH PRN SQ 11/28/17 05:30 (NS Flush) 2 ml UNSCH PRN IV FLUSH 11/28/17 05:45 12/05/17 08:07 (NS Flush) 2 ml BID IV FLUSH 11/28/17 09:00 12/06/17 08:21 (Tylenol) 650 mg Q6H PRN PO 11/28/17 05:45 12/06/17 08:41 (Tears Naturale Opth Soln) 1 drop TID EACH EYE 11/28/17 09:00 12/06/17 08:21 (Zofran Inj) 4 mg Q6H PRN IV PUSH 11/28/17 05:45 (Duoneb Neb) 1 ampule Q2HR NEB PRN INH 11/28/17 05:45 12/05/17 16:27 ([facility]) 1 Q361D XX 11/28/17 05:45 (Chlorhexidine 2% Cloth) Taper DAILY@04 TOP 11/29/17 04:00 11/25/18 03:59 12/03/17 04:00 (Chlorhexidine 2% Cloth) 3 pack UNSCH PRN TOP 11/28/17 05:45 (Jessie-Colace) 1 tab BID PO 11/28/17 09:00 12/05/17 08:06 (Milk Of Magnesia Liq) 30 ml Q12H PRN PO 11/28/17 05:45 (Senokot) 17.2 mg Q12H PRN PO 11/28/17 05:45 (Dulcolax Supp) 10 mg DAILY PRN RECTAL 11/28/17 05:45 (Lactulose Liq) 30 ml DAILY PRN PO 11/28/17 05:45 12/01/17 11:49 (D50w (Vial) Inj) 25 ml UNSCH PRN IV PUSH 11/28/17 06:15 (Protonix Inj) 40 mg Q12H IV PUSH 11/28/17 12:00 12/06/17 00:43 Pharmacy Profile Note 0 ml @ 0 mls/hr UNSCH OTHER 11/30/17 08:30 (Santyl Oint) 1 applic DAILY TOPICAL 12/01/17 09:00 12/06/17 08:22 Ertapenem 500 mg/ Sodium Chloride 100 ml @ 200 mls/hr Q24H IV 12/01/17 13:00 12/05/17 12:21 (Aspirin Chew) 81 mg DAILY CHEW 12/04/17 09:00 12/06/17 08:21 ([facility] Information) D/C ICU ELECTROLYTE ORDERS... UNSCH PRN .XX 12/04/17 07:00 ([facility] Information) ICU - CALL ORDERING PHYSIC... UNSCH PRN .XX 12/04/17 07:00 Potassium Chloride 100 ml @ 25 mls/hr UNSCH PRN IV 12/04/17 07:00 (K-Lyte Cl Eff) 50 meq UNSCH PRN PO 12/04/17 07:00 12/04/17 10:09 Potassium Chloride 100 ml @ 50 mls/hr UNSCH PRN IV 12/04/17 07:00 Magnesium Sulfate 4 gm/Sodium Chloride 108 ml @ 54 mls/hr UNSCH PRN IV 12/04/17 07:00 Magnesium Sulfate 2 gm/Sodium Chloride 104 ml @ 52 mls/hr UNSCH PRN IV 12/04/17 07:00 (Mag-Ox) 800 mg UNSCH PRN PO 12/04/17 07:00 Sodium Phosphate 30 mmol/Sodium Chloride 260 ml @ 43.333 mls/ hr UNSCH PRN IV 12/04/17 07:00 (K-Phos) 2,000 mg UNSCH PRN PO 12/04/17 07:00 Potassium Phosphate 30 mmol/ Sodium Chloride 260 ml @ 43.333 mls/ hr UNSCH PRN IV 12/04/17 07:00 (Trandate Inj) 10 mg Q4H PRN IV PUSH 12/04/17 16:30 12/06/17 01:44 (Apresoline Inj) 20 mg Q4H PRN IV PUSH 12/04/17 16:30 (NovoLOG SUPPLEMENTAL SCALE) 1 Q6H SQ 12/05/17 18:00 12/06/17 06:00 (Reading 5-325 Mg) 1 tab Q6H PRN PEG 12/05/17 18:30 Dexmedetomidine HCl 1000 mcg/ Sodium Chloride 250 ml @ 4.22 mls/hr TITRATE PRN IV 12/05/17 18:30 12/06/17 08:21 (Apresoline) 100 mg Q8H PO 12/06/17 02:00 12/06/17 08:41 Lines Chest X-Ray 12/06/17 0600 Signed Impressions: CONCLUSION: Possible slight worsening of pulmonary edema since the prior exam. Chest X-Ray 12/05/17 0600 Signed Impressions: CONCLUSION: No appreciable change. Foot MRI 12/05/17 0000 Signed Impressions: CONCLUSION: 1. Probable artifact involving the distal portion of the fifth metatarsal on t he T2 sequence could be further characterized with bone scan based on clinical grounds. Otherwise unremarkable. Foot MRI 12/05/17 0000 Signed Impressions: CONCLUSION: 1. Marked enhancement in the subcutaneous tissues in the lateral aspect of the foot. Abnormal areas of bone marrow edema in the fifth metatarsal shaft concer khanh for residual osteomyelitis. There is also edema in the fourth metatarsal h ead concerning for an additional area of osteomyelitis Chest X-Ray 12/04/17 0600 Signed Impressions: CONCLUSION: Moderate pulmonary edema is suspected, however there is slight overall improvem ent in aeration of the left lung is the prior exam. Last Impressions Chest X-Ray 12/02/17 0600 Signed Impressions: CONCLUSION: No significant change. Left greater than right parenchymal consolidation and sm all left pleural effusion again noted. Abdomen/Pelvis CT 12/01/17 Signed Impressions: CONCLUSION: 1. Bibasilar consolidating lung infiltrate 2. Hepatosplenomegaly 3. Calcified adrenal glands. 4. Trace ascites. 5. PEG tube and Triplett catheter in place. 6. Inguinal lymphadenopathy. 7. Calcific arthropathy of the left hip. 8. No acute intestinal abnormality hydronephrosis or suspicious abdominopelvic masses. Renal Ultrasound 11/28/17 Signed Impressions: CONCLUSION: 1. Echogenic kidneys consistent with medical renal disease. 2. No obstructive uropathy. Head CT 11/28/17 Signed Impressions: CONCLUSION: 1. No acute hemorrhage or mass effect. 2. Large area of encephalomalacia involving the right frontal and parietal lob e. 3. Chronic sinusitis. Brain MRI 11/28/17 Signed Impressions: CONCLUSION: 1. Large area of encephalomalacia in the right medial frontal parietal high co nvexities extending to the vertex. 2. No evidence for acute abnormality. Specifically, no acute infarction, hemor rhage or hydrocephalus. 3. Paranasal sinus mucosal disease. Past Medical History GENERAL: sedated on the vent,NAD SKIN: Warm and dry. No generalized rash HEAD: Atraumatic. Normocephalic. No temporal wasting, or tenderness. EYES: Pale conjunctiva. No petechia or hemorrhage. Pupils equal, round and reactive to light. No scleral icterus. No injection or drainage. EARS, NOSE AND THROAT: Nose without bleeding or purulent nasal discharge. He is orally intubated. NECK: Trachea midline. Supple and not tender, no meningeal signs CARDIOVASCULAR: Regular rate and rhythm. Limited exam due to the diffuse rhonchi RESPIRATORY: Bilateral diffuse rhonchi ABDOMEN: Soft, mildly distended, no reaction to palpation, no guarding. Bowel sounds present and normoactive. EXTREMITIES: No clubbing, cyanosis. Has edema of both hands. No pedal edema. Dressings to both intact. Well perfused and warm. NEUROLOGICAL: Sedated on the vent. PSYCHIATRIC: Unable to assess. LINE: No evidence of infection : Triplett catheter in place, urine looks clear Allergies: Coded Allergies: No Known Allergies (Verified Allergy, Severe, 11/03/06) Objective . Vital Signs Date Time Temp Pulse Resp B/P (MAP) Pulse Ox O2 Delivery O2 Flow Rate FiO2 12/06/17 08:00 79 12/06/17 08:00 101.9 79 8 137/72 (93) 100 12/06/17 08:00 30 12/06/17 07:48 30 12/06/17 07:48 100 30 12/06/17 06:00 79 12/06/17 04:00 98.9 83 16 128/65 (86) 95 12/06/17 04:00 83 12/06/17 04:00 30 12/06/17 04:00 96 30 12/06/17 02:00 84 12/06/17 00:00 87 12/06/17 00:00 99.7 87 18 187/97 (127) 100 12/06/17 00:00 30 12/05/17 23:24 100 30 12/05/17 22:00 84 12/05/17 20:00 85 12/05/17 20:00 30 12/05/17 20:00 100.7 85 15 165/79 (107) 100 12/05/17 19:55 100 40 12/05/17 18:00 101 12/05/17 18:00 101 26 165/70 (101) 100 12/05/17 17:00 91 23 163/77 (105) 100 12/05/17 16:30 99.8 87 20 145/75 (98) 100 12/05/17 16:23 100 30 12/05/17 16:22 100 50 12/05/17 14:00 85 18 126/70 (88) 100 12/05/17 14:00 85 12/05/17 13:00 86 18 136/71 (92) 100 12/05/17 12:00 85 12/05/17 12:00 30 12/05/17 12:00 100.2 85 18 142/78 (99) 100 12/05/17 11:39 100 30 12/05/17 11:00 83 18 147/82 (103) 100 12/05/17 10:00 82 15 147/79 (101) 100 12/05/17 10:00 82 12/06/17 12/06/17 12/07/17 14:59 22:59 06:59 Intake Total 275 ml Balance 275 ml Intake IV Total 275 ml . Laboratory Tests Test 12/05/17 03:31 White Blood Count 7.2 TH/MM3 Red Blood Count 2.93 MIL/MM3 Hemoglobin 8.7 GM/DL Hematocrit 26.3 % Mean Corpuscular Volume 89.7 FL Mean Corpuscular Hemoglobin 29.7 PG Mean Corpuscular Hemoglobin Concent 33.1 % Red Cell Distribution Width 14.1 % Platelet Count 263 TH/MM3 Mean Platelet Volume 8.0 FL Laboratory Tests Test 12/05/17 03:31 12/06/17 04:58 Blood Urea Nitrogen 62 MG/DL 56 MG/DL Creatinine 1.64 MG/DL 1.54 MG/DL Random Glucose 256 MG/DL 186 MG/DL Calcium Level 8.4 MG/DL 8.5 MG/DL Phosphorus Level 3.8 MG/DL Magnesium Level 3.0 MG/DL Sodium Level 144 MEQ/L 146 MEQ/L Potassium Level 3.9 MEQ/L 3.9 MEQ/L Chloride Level 110 MEQ/L 115 MEQ/L Carbon Dioxide Level 24.5 MEQ/L 20.5 MEQ/L Anion Gap 10 MEQ/L 11 MEQ/L Estimat Glomerular Filtration Rate 55 ML/MIN 59 ML/MIN Imaging Last Impressions Chest X-Ray 12/02/17 0600 Signed Impressions: CONCLUSION: No significant change. Left greater than right parenchymal consolidation and sm all left pleural effusion again noted. Abdomen/Pelvis CT 12/01/17 0000 Signed Impressions: CONCLUSION: 1. Bibasilar consolidating lung infiltrate 2. Hepatosplenomegaly 3. Calcified adrenal glands. 4. Trace ascites. 5. PEG tube and Triplett catheter in place. 6. Inguinal lymphadenopathy. 7. Calcific arthropathy of the left hip. 8. No acute intestinal abnormality hydronephrosis or suspicious abdominopelvic masses. Renal Ultrasound 11/28/17 0000 Signed Impressions: CONCLUSION: 1. Echogenic kidneys consistent with medical renal disease. 2. No obstructive uropathy. Head CT 11/28/17 0000 Signed Impressions: CONCLUSION: 1. No acute hemorrhage or mass effect. 2. Large area of encephalomalacia involving the right frontal and parietal lob e. 3. Chronic sinusitis. Brain MRI 11/28/17 0000 Signed Impressions: CONCLUSION: 1. Large area of encephalomalacia in the right medial frontal parietal high co nvexities extending to the vertex. 2. No evidence for acute abnormality. Specifically, no acute infarction, hemor rhage or hydrocephalus. 3. Paranasal sinus mucosal disease. Physical Exam GENERAL: sedated on the vent, not in respiratory distress. SKIN: Warm and dry. No generalized rash HEAD: Atraumatic. Normocephalic. No temporal wasting, or tenderness. EYES: Pale conjunctiva. No petechia or hemorrhage. Pupils equal, round and reactive to light. No scleral icterus. No injection or drainage. EARS, NOSE AND THROAT: Nose without bleeding or purulent nasal discharge. He is orally intubated. NECK: Trachea midline. Supple and not tender, no meningeal signs CARDIOVASCULAR: Regular rate and rhythm. Limited exam due to the diffuse rhonchi RESPIRATORY: Bilateral diffuse rhonchi ABDOMEN: Soft, mildly distended, no reaction to palpation, no guarding. Bowel sounds present and normoactive. EXTREMITIES: No clubbing, cyanosis. Has edema of both hands. No pedal edema. Has dressings to both feet, dry and intact. Well perfused and warm. NEUROLOGICAL: Sedated on the vent. PSYCHIATRIC: Unable to assess. LINE: No evidence of infection : Triplett catheter in place, urine looks clear Assessment & Plan Remarks IMPRESSION Klebsiella ESBL+ in sputum with bilateral infiltrates - has CHF and likely with PNA (?Aspiration, came in with decreased LOC) CHF, EF good on his echo Respiratory failure Acute kidney injury, improving (+) BC with Staph hominis, ?source Hx CVA SNF resident RECOMMENDATION Follow C/S Continue Vanco, pharmacy following Change IV Invanz to Meropenem for broader GNR coverage in light of new fever Add Levaquin for additional GNR coverage Repeat C/S: BC, sputum and urine Follow temps Monitor progress Sharlene Kim MD December 06, 2017 10:00
[2017-12-06] MEDS: LEVOFLOXACIN 750 MG TAB PO SCH (10:54)
[2017-12-06 12:10] LABS: BILIRUBIN, URINE NEG (NEG); BLOOD, URINE SMALL (NEG); GLUCOSE,URINE NEG (NEG); HYALINE CAST, URINE 6 /lpf (RARE); KETONE, URINE NEG (NEG); MUCUS URINE FEW /lpf (OCC); NITRITE,URINE NEG (NEG); PH, URINE 5.5 (5.0-8.5); URINE COLOR YELLOW (YELLW/STRAW); URINE LEUKOCYTE ESTERASE NEG (NEG)
[2017-12-06] MEDS: MEROPENEM INJ 1,000 MG in SODIUM CHLORIDE 0.9% INJ 100 ML IV SCH ×2 (14:16→19:40)
--- NOTE | 2017-12-06 14:26 | HHI.CCPN ---
Subjective Remarks/Hospital Course This is a 47-year-old male with a history of prior stroke who presented from custodial facility by EMS for acute altered mental status. Per EMS reports, he was in his normal state of health last night and then with his reevaluated by the nursing staff and was a GCS of 3 with room air sats of 79%. Of note by the ED physician, the patient had pink frothy sputum on admission to the ER. He was emergently intubated by the emergency department. He has a chest x-ray which demonstrates bilateral infiltrates consistent with pulmonary edema. He has a BNP which is severely elevated at 1300. He has a elevated creatinine suggestive of acute kidney injury with an unknown baseline. Per report he has been treated for an MRSA skin infection. He is afebrile with a normal white count. Critical care medicine is consulted to evaluate manage his acute encephalopathy, multiorgan dysfunction. No additional information is available from the patient due to his severe encephalopathy. SUBJ 11/29: Remains intubated sedated with propofol for vent synchrony. According to RN he did follow commands upper extremities when sedation held. Chest exam reveals bilateral coarse rhonchi, crackles. CXR pending at this time 11/30: remains intubated. cxr with bilateral infiltrates again suggestive of volume overload. 12/01: T-max 100.6. Creatinine and change the patient continues to be positive with fluid, will follow up nephrology's recommendations regarding continued albumin and/Lasix therapy. Hemoglobin stable this a.m. at 7.9. Plan for CT of the abdomen and pelvis for possible source. Stool Hemoccult still pending. Consult ID , appreciate recommendations. Follow-up with podiatry concern for osteomyelitis. Plan for possible I&D bilateral foot ulcers today. 12/02: Late entry note patient seen at 12:45 PM. No acute events overnight. The patient underwent incision and debridement bilateral feet by podiatry today tolerated procedures well. Hemodynamically stable. Creatinine improving. The patient remains on CPAP greater than 8 hours. 12/03: No acute events overnight. The patient tolerated CPAP trials for approximately 8 hours hemodynamically stable. Tolerating tube feeds. 12/04: Tolerated CPAP trials approximately the 8 hours yesterday, on low-dose propofol. Plan to transition to Precedex to facilitate ventilator weaning. Noted chest x-ray slightly improved but pulmonary edema still persists. Patient tolerating tube feeds. 12/05: Late entry note. Patient seen at 7:20 AM. The patient tolerated CPAP trials for approximately 16 hours. Plan for MRI bilateral feet today. Patient has been transitioned to Precedex infusion. Patient noted to have continued elevated blood glucose levels patient transitioned to high dose sliding scale. 12/06: T-max 101.6. Antibiotics changed per ID. MRI showed osteomyelitis left fourth and fifth metatarsal. CPAP trials initiated today patient tolerated CPAP trials approximately 3 hours yesterday. Objective Vital Signs Date Time Temp Pulse Resp B/P (MAP) Pulse Ox O2 Delivery O2 Flow Rate FiO2 12/06/17 12:00 85 12/06/17 12:00 101.9 18 149/74 (99) 100 12/06/17 12:00 30 Intake and Output 12/06/17 12/06/17 12/07/17 08:00 16:00 00:00 Intake Total 500 ml 275 ml Output Total 625 ml Balance -125 ml 275 ml Result Diagram: 12/05/17 0331 12/06/17 0458 Imaging Current Medications Medications (Trade) Dose Ordered Sig/Arthur Route Start Time Stop Time Status Last Admin (Brethine Inj) 1 mg UNSCH PRN SQ 11/28/17 05:30 (NS Flush) 2 ml UNSCH PRN IV FLUSH 11/28/17 05:45 12/05/17 08:07 (NS Flush) 2 ml BID IV FLUSH 11/28/17 09:00 12/06/17 08:21 (Tylenol) 650 mg Q6H PRN PO 11/28/17 05:45 12/06/17 08:41 (Tears Naturale Opth Soln) 1 drop TID EACH EYE 11/28/17 09:00 12/06/17 11:41 (Zofran Inj) 4 mg Q6H PRN IV PUSH 11/28/17 05:45 (Duoneb Neb) 1 ampule Q2HR NEB PRN INH 11/28/17 05:45 12/05/17 16:27 ([facility] [place] Nursing Information) 1 Q361D XX 11/28/17 05:45 (Chlorhexidine 2% Cloth) Taper DAILY@04 TOP 11/29/17 04:00 11/25/18 03:59 12/03/17 04:00 (Chlorhexidine 2% Cloth) 3 pack UNSCH PRN TOP 11/28/17 05:45 (Jessie-Colace) 1 tab BID PO 11/28/17 09:00 12/05/17 08:06 (Milk Of Magnesia Liq) 30 ml Q12H PRN PO 11/28/17 05:45 (Senokot) 17.2 mg Q12H PRN PO 11/28/17 05:45 (Dulcolax Supp) 10 mg DAILY PRN RECTAL 11/28/17 05:45 (Lactulose Liq) 30 ml DAILY PRN PO 11/28/17 05:45 12/01/17 11:49 (D50w (Vial) Inj) 25 ml UNSCH PRN IV PUSH 11/28/17 06:15 (Protonix Inj) 40 mg Q12H IV PUSH 11/28/17 12:00 12/06/17 11:03 Pharmacy Profile Note 0 ml @ 0 mls/hr UNSCH OTHER 11/30/17 08:30 (Santyl Oint) 1 applic DAILY TOPICAL 12/01/17 09:00 12/06/17 08:22 (Aspirin Chew) 81 mg DAILY CHEW 12/04/17 09:00 12/06/17 08:21 ([facility] [place] Nursing Information) D/C ICU ELECTROLYTE ORDERS... UNSCH PRN .XX 12/04/17 07:00 ([facility] [place] [facility] Nursing Information) ICU - CALL ORDERING PHYSIC... UNSCH PRN .XX 12/04/17 07:00 Potassium Chloride 100 ml @ 25 mls/hr UNSCH PRN IV 12/04/17 07:00 (K-Lyte Cl Eff) 50 meq UNSCH PRN PO 12/04/17 07:00 12/04/17 10:09 Potassium Chloride 100 ml @ 50 mls/hr UNSCH PRN IV 12/04/17 07:00 Magnesium Sulfate 4 gm/Sodium Chloride 108 ml @ 54 mls/hr UNSCH PRN IV 12/04/17 07:00 Magnesium Sulfate 2 gm/Sodium Chloride 104 ml @ 52 mls/hr UNSCH PRN IV 12/04/17 07:00 (Mag-Ox) 800 mg UNSCH PRN PO 12/04/17 07:00 Sodium Phosphate 30 mmol/Sodium Chloride 260 ml @ 43.333 mls/ hr UNSCH PRN IV 12/04/17 07:00 (K-Phos) 2,000 mg UNSCH PRN PO 12/04/17 07:00 Potassium Phosphate 30 mmol/ Sodium Chloride 260 ml @ 43.333 mls/ hr UNSCH PRN IV 12/04/17 07:00 (Trandate Inj) 10 mg Q4H PRN IV PUSH 12/04/17 16:30 12/06/17 01:44 (Apresoline Inj) 20 mg Q4H PRN IV PUSH 12/04/17 16:30 (NovoLOG SUPPLEMENTAL SCALE) 1 Q6H SQ 12/05/17 18:00 12/06/17 11:41 ([place] 5-325 Mg) 1 tab Q6H PRN PEG 12/05/17 18:30 Dexmedetomidine HCl 1000 mcg/ Sodium Chloride 250 ml @ 4.22 mls/hr TITRATE PRN IV 12/05/17 18:30 12/06/17 08:21 (Apresoline) 100 mg Q8H PO 12/06/17 02:00 12/06/17 08:41 (ASP Crit: Doc ESBL, MDR A baumannii or P aer) 1 UNSCH X1 PRN .XX 12/06/17 10:00 12/07/17 09:59 ([facility] [place] [facility] Pharmacy Information) 1 UNSCH X1 PRN XX 12/06/17 10:00 12/07/17 09:59 Meropenem 1000 mg/ Sodium Chloride 100 ml @ 200 mls/hr Q8H IV 12/06/17 12:00 12/06/17 14:16 (Levaquin) 750 mg DAILY PO 12/06/17 11:00 12/06/17 10:54 Last Impressions Chest X-Ray 12/05/17 0600 Signed Impressions: CONCLUSION: No appreciable change. Foot X-Ray 12/02/17 0000 Signed Impressions: CONCLUSION: 1. Very limited study. 2. No gross acute abnormality. Abdomen/Pelvis CT 12/01/17 0000 Signed Impressions: CONCLUSION: 1. Bibasilar consolidating lung infiltrate 2. Hepatosplenomegaly 3. Calcified adrenal glands. 4. Trace ascites. 5. PEG tube and Dudley catheter in place. 6. Inguinal lymphadenopathy. 7. Calcific arthropathy of the left hip. 8. No acute intestinal abnormality hydronephrosis or suspicious abdominopelvic masses. Renal Ultrasound 5/23/18 0000 Signed Impressions: CONCLUSION: 1. Echogenic kidneys consistent with medical renal disease. 2. No obstructive uropathy. Head CT 11/28/17 Signed Impressions: CONCLUSION: 1. No acute hemorrhage or mass effect. 2. Large area of encephalomalacia involving the right frontal and parietal lob e. 3. Chronic sinusitis. Brain MRI 11/28/17 Signed Impressions: CONCLUSION: 1. Large area of encephalomalacia in the right medial frontal parietal high co nvexities extending to the vertex. 2. No evidence for acute abnormality. Specifically, no acute infarction, hemor rhage or hydrocephalus. 3. Paranasal sinus mucosal disease. Last Impressions Chest X-Ray 12/04/17599 Signed Impressions: CONCLUSION: Moderate pulmonary edema is suspected, however there is slight overall improvem ent in aeration of the left lung is the prior exam. Foot X-Ray 12/02/17 Signed Impressions: CONCLUSION: 1. Very limited study. 2. No gross acute abnormality. Abdomen/Pelvis CT 12/01/17 Signed Impressions: CONCLUSION: 1. Bibasilar consolidating lung infiltrate 2. Hepatosplenomegaly 3. Calcified adrenal glands. 4. Trace ascites. 5. PEG tube and Dudley catheter in place. 6. Inguinal lymphadenopathy. 7. Calcific arthropathy of the left hip. 8. No acute intestinal abnormality hydronephrosis or suspicious abdominopelvic masses. Renal Ultrasound 11/28/17 Signed Impressions: CONCLUSION: 1. Echogenic kidneys consistent with medical renal disease. 2. No obstructive uropathy. Head CT 11/28/17 Signed Impressions: CONCLUSION: 1. No acute hemorrhage or mass effect. 2. Large area of encephalomalacia involving the right frontal and parietal lob e. 3. Chronic sinusitis. Brain MRI 11/28/17 Signed Impressions: CONCLUSION: 1. Large area of encephalomalacia in the right medial frontal parietal high co nvexities extending to the vertex. 2. No evidence for acute abnormality. Specifically, no acute infarction, hemor rhage or hydrocephalus. 3. Paranasal sinus mucosal disease. Last Impressions Chest X-Ray 12/02/17599 Signed Impressions: CONCLUSION: No significant change. Left greater than right parenchymal consolidation and sm all left pleural effusion again noted. Foot X-Ray 12/02/17 Signed Impressions: CONCLUSION: 1. Very limited study. 2. No gross acute abnormality. Abdomen/Pelvis CT 12/01/17 Signed Impressions: CONCLUSION: 1. Bibasilar consolidating lung infiltrate 2. Hepatosplenomegaly 3. Calcified adrenal glands. 4. Trace ascites. 5. PEG tube and Dudley catheter in place. 6. Inguinal lymphadenopathy. 7. Calcific arthropathy of the left hip. 8. No acute intestinal abnormality hydronephrosis or suspicious abdominopelvic masses. Renal Ultrasound 11/28/17 Signed Impressions: CONCLUSION: 1. Echogenic kidneys consistent with medical renal disease. 2. No obstructive uropathy. Head CT 11/28/17 Signed Impressions: CONCLUSION: 1. No acute hemorrhage or mass effect. 2. Large area of encephalomalacia involving the right frontal and parietal lob e. 3. Chronic sinusitis. Brain MRI 11/28/17 Signed Impressions: CONCLUSION: 1. Large area of encephalomalacia in the right medial frontal parietal high co nvexities extending to the vertex. 2. No evidence for acute abnormality. Specifically, no acute infarction, hemor rhage or hydrocephalus. 3. Paranasal sinus mucosal disease. Last Impressions Chest X-Ray 11/30/17 0600 Signed Impressions: CONCLUSION: Patchy areas of increased density related to areas of consolidation or atelecta sis. Renal Ultrasound 11/28/17 Signed Impressions: CONCLUSION: 1. Echogenic kidneys consistent with medical renal disease. 2. No obstructive uropathy. Head CT 11/28/17 Signed Impressions: CONCLUSION: 1. No acute hemorrhage or mass effect. 2. Large area of encephalomalacia involving the right frontal and parietal lob e. 3. Chronic sinusitis. Brain MRI 11/28/17 Signed Impressions: CONCLUSION: 1. Large area of encephalomalacia in the right medial frontal parietal high co nvexities extending to the vertex. 2. No evidence for acute abnormality. Specifically, no acute infarction, hemor rhage or hydrocephalus. 3. Paranasal sinus mucosal disease. Objective Remarks GENERAL: This is a -[place] middle-age male well-developed well- nourished who appears much older than stated age, lying in bed, intubated, sedated with propofol HEENT: Normocephalic. Atraumatic. Pupils equal, round, reactive, conjugate. Orotracheally intubated NECK: Trachea is midline. Positive JVD CHEST: Intubated with an 8.0 ET tube. Equal chest rise. PRVC. 40% FiO2. Bilateral coarse rhonchi and crackles CARDIOVASCULAR: Normal rate, regular rhythm. Appears sinus by telemetry. ABDOMEN: Soft, nontender, nondistended. No guarding. MUSCULOSKELETAL: Pulses 2+. 2+ peripheral edema B/L upper and lower extremity NEUROLOGICAL: Intubated sedated with propofol. Weakly withdraws to pain. Positive corneal reflexes. Positive cough. Positive gag. (Does follow commands to RN when sedation was held) A/P Assessment and Plan Assessment: 47-year-old male with prior stroke who presents with severe acute congestive heart failure exacerbation, unknown type, with associated acute hypoxic and hypercarbic respiratory failure, acute metabolic encephalopathy, acute kidney injury. Remains critically ill. still awaiting echo to determine ventricular function. still appears cardiac in origin and not infectious. remains afebrile with normal wbc count. remains very critically ill with minimal if any improvement over last 48h. off pathway. Plan by systems: Neurologic: Acute metabolic encephalopathy History of prior CVA MRI-old frontoparietal encephalomalacia, no acute findings EEG-generalized slowing without seizures Frequent neurochecks Propofol for goal RASS -2, Avoid long-acting sedatives. daily sedation vacation Tox screen, UDS positive only for benzodiazepines Check ammonia TSH. B12 normal Respiratory: Acute hypoxic and hypercarbic respiratory failure Moderate pulmonary edema Vent bundle, Head of bed elevated Nebs every 6 hours scheduled and as needed Continue CPAP trials-now averaging 12-16 hours a day Wean FiO2 for goal SPO2 greater than 90% Cardiovascular: Acute severe congestive heart failure exacerbation, unknown type Mildly Elevated troponin Lasix 80 mg IV 1 given 11/29, now scheduled Lasix 40 every 12 with IV albumin 12/01 2D echo -EF 60-65%, trace TR, mild LAE, mild MVR, No RWMA Patient has severe anemia with a hemoglobin of 5.9 , status post transfusion 2 units of packed cells, continue to monitor H&H 12/02 ASA resumed Renal: Acute kidney injury superimposed on chronic renal insufficiency with an unknown baseline Likely secondary to venous congestion from CHF Continue Dudley Diuresis as above Renal ultrasound: no obstruction or hydro FENa on admission 3.7% (unknown if on chronic lasix) FEUrea on admission 47.3%- suggestive of intrinsic renal disease. urine eosinophils negative -Nephrology following-urine output approximately 60 cc/hour FEN/GI: Acute intravascular volume overload Diuresis as above Tube feeds with Nepro, minimal residual 12/01 CT of the abdomen and pelvis- Bibasilar consolidating lung infiltrate. Hepatosplenomegaly Calcified adrenal glands. Trace ascites. PEG tube and Dudley catheter in place. Inguinal lymphadenopathy. Calcific arthropathy of the left hip. No acute intestinal abnormality hydronephrosis or suspicious abdominopelvic masses. Heme/ID: Severe anemia, likely secondary to chronic disease s/p 2 unit PRBCs on 11/28 Holding anticoagulation until etiology is determined Iron studies: low iron, low TIBC, high ferritin. suggests chronic disease as a cause. Daily CBC Pro calcitonin 1.4 intermediate risk. blood cultures 11/28 GPCs in 2/ bottles sputum culture 11/28 GNR- ESBL 11/25 ID following Hemoccult negative CT of the abdomen and pelvis Endocrine: Hyperglycemia of critical illness Diabetes Glucose monitoring per ICU protocol, high dose regimen -- SSI Prophylaxis: GI Prophylaxis IV PPI- BID DVT Prophylaxis -- SCDs Heparin SQ reinitiated 12/04 Lines: Peripheral IVs Dudley Dispo: Level 3 follow up Physician Tata Avila MD December 06, 2017 14:26
[2017-12-06] MEDS: ACETAMINOPHEN/HYDROcodone 325 MG/5 MG TAB PEG PRN ×2 (14:44→22:14)
[2017-12-07] VITALS (18 sets, daily range): BP systolic 154–193; BP diastolic 73–95; PULSE 73–83; RESP 11–38; TEMP 98.6–99.1; O2SAT 98–100
[2017-12-07] MEDS: DEXMEDETOMIDINE INJ 1,000 MCG in SODIUM CHLOR 0.9% 250 ML INJ 240 ML IV PRN ×3 (01:51→17:43)
[2017-12-07] MEDS: CHLORHEXIDINE GLUCONATE 2 % 1 PACK (2 CLOTHS) TOP SCH (03:01)
[2017-12-07] MEDS: MEROPENEM INJ 1,000 MG in SODIUM CHLORIDE 0.9% INJ 100 ML IV SCH ×3 (03:01→19:56)
[2017-12-07] MEDS: hydrALAZINE HCL 100 MG TAB PO SCH ×3 (03:01→17:43)
[2017-12-07] MEDS: INSULIN ASPART SUPPLEMENTAL SCALE SQ SCH ×4 (06:00→23:14)
[2017-12-07] MEDS: LEVOFLOXACIN 750 MG TAB PO SCH (07:39)
[2017-12-07] MEDS: ACETAMINOPHEN/HYDROcodone 325 MG/5 MG TAB PEG PRN (07:40)
[2017-12-07] MEDS: ASPIRIN 81 MG CHEW TAB CHEW SCH (07:40)
[2017-12-07] MEDS: ARTIFICIAL TEARS OPTH SOLN 15 ML BTL EACH EYE SCH ×3 (07:41→17:42)
[2017-12-07] MEDS: COLLAGENASE OINT 30 GM TUBE TOPICAL SCH (07:41)
[2017-12-07] MEDS: SODIUM CHLORIDE 0.9% FLUSH 10 ML FLUSH IV FLUSH SCH ×2 (07:41→19:56)
[2017-12-07] MEDS: DOCUSATE SODIUM 50 MG/SENNA 8.6 MG TAB PO SCH ×2 (07:41→19:56)
[2017-12-07 10:18] LABS: AUTOMATED NEUTROPHIL # 6.8 TH/MM3 (1.8-7.7); BASOPHIL % 0.3 % (0.0-2.0); EOSINOPHIL # 0.2 TH/MM3 (0-0.4); EOSINOPHIL % 2.8 % (0.0-4.0); HEMATOCRIT 27.4 % (39.0-51.0); LYMPH % 13.6 % (9.0-44.0); LYMPHOCYTE # 1.2 TH/MM3 (1.0-4.8); MEAN CELL VOLUME 89.6 FL (80.0-100.0); MEAN CORPUSCULAR HEMOGLOBIN 29.6 PG (27.0-34.0); MEAN CORPUSCULAR HGB CONC 33.1 % (32.0-36.0); MEAN PLATELET VOLUME 8.5 FL (7.0-11.0); MONO % 6.1 % (0.0-8.0); MONOCYTE # 0.5 TH/MM3 (0-0.9); NEUT % 77.2 % (16.0-70.0); PLATELET COUNT 290 TH/MM3 (150-450); RED BLOOD COUNT 3.05 MIL/MM3 (4.50-5.90); RED CELL DISTRIBUTION WIDTH 13.7 % (11.6-17.2); WHITE BLOOD COUNT 8.8 TH/MM3 (4.0-11.0)
[2017-12-07 10:53] LABS: BICARBONATE 21.2 MEQ/L (21.0-32.0); CALCIUM 8.9 MG/DL (8.5-10.1); CREATININE 1.42 MG/DL (0.60-1.30); MAGNESIUM 2.6 MG/DL (1.5-2.5)
[2017-12-07 10:54] LABS: PHOSPHORUS 4.5 MG/DL (2.5-4.9)
[2017-12-07 10:56] LABS: RANDOM VANCOMYCIN 13.3 COMMENT
[2017-12-07] MEDS: PANTOPRAZOLE SODIUM 40 MG VIAL IV PUSH SCH ×2 (10:57→23:13)
[2017-12-07] MEDS: LABETALOL HCL 100 MG/20 ML VIAL IV PUSH PRN ×2 (10:58→19:30)
[2017-12-07] MEDS ORDERED: VANCOMYCIN INJ 1,500 MG in SODIUM CHLORID 0.9% 500 ML INJ 500 ML IV ONE (13:00)
--- NOTE | 2017-12-07 16:45 | HHI.CCPN ---
Subjective Remarks/Hospital Course This is a 47-year-old male with a history of prior stroke who [facility] by [facility] for acute altered mental status. Per EMS reports, he was in his normal state of health last night and then with his reevaluated by the nursing staff and was a GCS of 3 with room air sats of 79%. Of note by the ED physician, the patient had pink frothy sputum on admission to the ER. He was emergently intubated by the emergency department. He has a chest x-ray which demonstrates bilateral infiltrates consistent with pulmonary edema. He has a BNP which is severely elevated at 1300. He has a elevated creatinine suggestive of acute kidney injury with an unknown baseline. Per report he has been treated for an MRSA skin infection. He is afebrile with a normal white count. Critical care medicine is consulted to evaluate manage his acute encephalopathy, multiorgan dysfunction. No additional information is available from the patient due to his severe encephalopathy. SUBJ 11/29: Remains intubated sedated with propofol for vent synchrony. According to RN he did follow commands upper extremities when sedation held. Chest exam reveals bilateral coarse rhonchi, crackles. CXR pending at this time 11/30: remains intubated. cxr with bilateral infiltrates again suggestive of volume overload. 12/01: T-max 100.6. Creatinine and change the patient continues to be positive with fluid, will follow up nephrology's recommendations regarding continued albumin and/Lasix therapy. Hemoglobin stable this a.m. at 7.9. Plan for CT of the abdomen and pelvis for possible source. Stool Hemoccult still pending. Consult ID , appreciate recommendations. Follow-up with podiatry concern for osteomyelitis. Plan for possible I&D bilateral foot ulcers today. 12/02: Late entry note patient seen at 12:45 PM. No acute events overnight. The patient underwent incision and debridement bilateral feet by podiatry today tolerated procedures well. Hemodynamically stable. Creatinine improving. The patient remains on CPAP greater than 8 hours. 12/03: No acute events overnight. The patient tolerated CPAP trials for approximately 8 hours hemodynamically stable. Tolerating tube feeds. 12/04: Tolerated CPAP trials approximately the 8 hours yesterday, on low-dose propofol. Plan to transition to Precedex to facilitate ventilator weaning. Noted chest x-ray slightly improved but pulmonary edema still persists. Patient tolerating tube feeds. 12/05: Late entry note. Patient seen at 7:20 AM. The patient tolerated CPAP trials for approximately 16 hours. Plan for MRI bilateral feet today. Patient has been transitioned to Precedex infusion. Patient noted to have continued elevated blood glucose levels patient transitioned to high dose sliding scale. 12/06: T-max 101.6. Antibiotics changed per ID. MRI showed osteomyelitis left fourth and fifth metatarsal. CPAP trials initiated today patient tolerated CPAP trials approximately 3 hours yesterday. 12/07: Afebrile. Patient continues on CPAP trials today greater than 8 hours on Precedex infusion to facilitate ventilator weaning. Patient's nodding head to yes and no questions following my command. Patient was noted last night he continued to have elevated glucose despite high dose sliding scale regimen, patient placed on Levemir twice daily. Objective Vital Signs Date Time Temp Pulse Resp B/P (MAP) Pulse Ox O2 Delivery O2 Flow Rate FiO2 12/07/17 16:00 30 12/07/17 16:00 79 12/07/17 16:00 99.1 25 160/88 (112) 100 Intake and Output 12/07/17 12/07/17 12/08/17 08:00 16:00 00:00 Intake Total 990 ml Output Total 650 ml Balance 340 ml Result Diagram: 12/07/17 0855 12/07/17 0855 Imaging Current Medications Medications (Trade) Dose Ordered Sig/Arthur Route Start Time Stop Time Status Last Admin (Brethine Inj) 1 mg UNSCH PRN SQ 11/28/17 05:30 (NS Flush) 2 ml UNSCH PRN IV FLUSH 11/28/17 05:45 12/05/17 08:07 (NS Flush) 2 ml BID IV FLUSH 11/28/17 09:00 12/06/17 08:21 (Tylenol) 650 mg Q6H PRN PO 11/28/17 05:45 12/06/17 08:41 (Tears Naturale Opth Soln) 1 drop TID EACH EYE 11/28/17 09:00 12/06/17 11:41 (Zofran Inj) 4 mg Q6H PRN IV PUSH 11/28/17 05:45 (Duoneb Neb) 1 ampule Q2HR NEB PRN INH 11/28/17 05:45 12/05/17 16:27 ([facility] Nursing Information) 1 Q361D XX 11/28/17 05:45 (Chlorhexidine 2% Cloth) Taper DAILY@04 TOP 11/29/17 04:00 11/25/18 03:59 12/03/17 04:00 (Chlorhexidine 2% Cloth) 3 pack UNSCH PRN TOP 11/28/17 05:45 (Jessie-Colace) 1 tab BID PO 11/28/17 09:00 12/05/17 08:06 (Milk Of Magnesia Liq) 30 ml Q12H PRN PO 11/28/17 05:45 (Senokot) 17.2 mg Q12H PRN PO 11/28/17 05:45 (Dulcolax Supp) 10 mg DAILY PRN RECTAL 11/28/17 05:45 (Lactulose Liq) 30 ml DAILY PRN PO 11/28/17 05:45 12/01/17 11:49 (D50w (Vial) Inj) 25 ml UNSCH PRN IV PUSH 11/28/17 06:15 (Protonix Inj) 40 mg Q12H IV PUSH 11/28/17 12:00 12/06/17 11:03 Pharmacy Profile Note 0 ml @ 0 mls/hr UNSCH OTHER 11/30/17 08:30 (Santyl Oint) 1 applic DAILY TOPICAL 12/01/17 09:00 12/06/17 08:22 (Aspirin Chew) 81 mg DAILY CHEW 12/04/17 09:00 12/06/17 08:21 ([facility] Nursing Information) D/C ICU ELECTROLYTE ORDERS... UNSCH PRN .XX 12/04/17 07:00 ([facility] Nursing Information) ICU - CALL ORDERING PHYSIC... UNSCH PRN .XX 12/04/17 07:00 Potassium Chloride 100 ml @ 25 mls/hr UNSCH PRN IV 12/04/17 07:00 (K-Lyte Cl Eff) 50 meq UNSCH PRN PO 12/04/17 07:00 12/04/17 10:09 Potassium Chloride 100 ml @ 50 mls/hr UNSCH PRN IV 12/04/17 07:00 Magnesium Sulfate 4 gm/Sodium Chloride 108 ml @ 54 mls/hr UNSCH PRN IV 12/04/17 07:00 Magnesium Sulfate 2 gm/Sodium Chloride 104 ml @ 52 mls/hr UNSCH PRN IV 12/04/17 07:00 (Mag-Ox) 800 mg UNSCH PRN PO 12/04/17 07:00 Sodium Phosphate 30 mmol/Sodium Chloride 260 ml @ 43.333 mls/ hr UNSCH PRN IV 12/04/17 07:00 (K-Phos) 2,000 mg UNSCH PRN PO 12/04/17 07:00 Potassium Phosphate 30 mmol/ Sodium Chloride 260 ml @ 43.333 mls/ hr UNSCH PRN IV 12/04/17 07:00 (Trandate Inj) 10 mg Q4H PRN IV PUSH 12/04/17 16:30 12/06/17 01:44 (Apresoline Inj) 20 mg Q4H PRN IV PUSH 12/04/17 16:30 (NovoLOG SUPPLEMENTAL SCALE) 1 Q6H SQ 12/05/17 18:00 12/06/17 11:41 ([place] 5-325 Mg) 1 tab Q6H PRN PEG 12/05/17 18:30 Dexmedetomidine HCl 1000 mcg/ Sodium Chloride 250 ml @ 4.22 mls/hr TITRATE PRN IV 12/05/17 18:30 12/06/17 08:21 (Apresoline) 100 mg Q8H PO 12/06/17 02:00 12/06/17 08:41 (ASP Crit: Doc ESBL, MDR A baumannii or P aer) 1 UNSCH X1 PRN .XX 12/06/17 10:00 12/07/17 09:59 ([facility] Pharmacy Information) 1 UNSCH X1 PRN XX 12/06/17 10:00 12/07/17 09:59 Meropenem 1000 mg/ Sodium Chloride 100 ml @ 200 mls/hr Q8H IV 12/06/17 12:00 12/06/17 14:16 (Levaquin) 750 mg DAILY PO 12/06/17 11:00 12/06/17 10:54 Last Impressions Chest X-Ray 12/05/17 0600 Signed Impressions: CONCLUSION: No appreciable change. Foot X-Ray 12/02/17 0000 Signed Impressions: CONCLUSION: 1. Very limited study. 2. No gross acute abnormality. Abdomen/Pelvis CT 12/01/17 0000 Signed Impressions: CONCLUSION: 1. Bibasilar consolidating lung infiltrate 2. Hepatosplenomegaly 3. Calcified adrenal glands. 4. Trace ascites. 5. PEG tube and Dudley catheter in place. 6. Inguinal lymphadenopathy. 7. Calcific arthropathy of the left hip. 8. No acute intestinal abnormality hydronephrosis or suspicious abdominopelvic masses. Renal Ultrasound 11/28/17 Signed Impressions: CONCLUSION: 1. Echogenic kidneys consistent with medical renal disease. 2. No obstructive uropathy. Head CT 11/28/17 Signed Impressions: CONCLUSION: 1. No acute hemorrhage or mass effect. 2. Large area of encephalomalacia involving the right frontal and parietal lob e. 3. Chronic sinusitis. Brain MRI 11/28/17 Signed Impressions: CONCLUSION: 1. Large area of encephalomalacia in the right medial frontal parietal high co nvexities extending to the vertex. 2. No evidence for acute abnormality. Specifically, no acute infarction, hemor rhage or hydrocephalus. 3. Paranasal sinus mucosal disease. Last Impressions Chest X-Ray 12/04/17 0600 Signed Impressions: CONCLUSION: Moderate pulmonary edema is suspected, however there is slight overall improvem ent in aeration of the left lung is the prior exam. Foot X-Ray 12/02/17 Signed Impressions: CONCLUSION: 1. Very limited study. 2. No gross acute abnormality. Abdomen/Pelvis CT 12/01/17 Signed Impressions: CONCLUSION: 1. Bibasilar consolidating lung infiltrate 2. Hepatosplenomegaly 3. Calcified adrenal glands. 4. Trace ascites. 5. PEG tube and Dudley catheter in place. 6. Inguinal lymphadenopathy. 7. Calcific arthropathy of the left hip. 8. No acute intestinal abnormality hydronephrosis or suspicious abdominopelvic masses. Renal Ultrasound 11/28/17 Signed Impressions: CONCLUSION: 1. Echogenic kidneys consistent with medical renal disease. 2. No obstructive uropathy. Head CT 11/28/17 Signed Impressions: CONCLUSION: 1. No acute hemorrhage or mass effect. 2. Large area of encephalomalacia involving the right frontal and parietal lob e. 3. Chronic sinusitis. Brain MRI 11/28/17 Signed Impressions: CONCLUSION: 1. Large area of encephalomalacia in the right medial frontal parietal high co nvexities extending to the vertex. 2. No evidence for acute abnormality. Specifically, no acute infarction, hemor rhage or hydrocephalus. 3. Paranasal sinus mucosal disease. Last Impressions Chest X-Ray 12/02/17 06 Signed Impressions: CONCLUSION: No significant change. Left greater than right parenchymal consolidation and sm all left pleural effusion again noted. Foot X-Ray 12/02/17 Signed Impressions: CONCLUSION: 1. Very limited study. 2. No gross acute abnormality. Abdomen/Pelvis CT 12/01/17 Signed Impressions: CONCLUSION: 1. Bibasilar consolidating lung infiltrate 2. Hepatosplenomegaly 3. Calcified adrenal glands. 4. Trace ascites. 5. PEG tube and Dudley catheter in place. 6. Inguinal lymphadenopathy. 7. Calcific arthropathy of the left hip. 8. No acute intestinal abnormality hydronephrosis or suspicious abdominopelvic masses. Renal Ultrasound 11/28/17 Signed Impressions: CONCLUSION: 1. Echogenic kidneys consistent with medical renal disease. 2. No obstructive uropathy. Head CT 11/28/17 Signed Impressions: CONCLUSION: 1. No acute hemorrhage or mass effect. 2. Large area of encephalomalacia involving the right frontal and parietal lob e. 3. Chronic sinusitis. Brain MRI 11/28/17 Signed Impressions: CONCLUSION: 1. Large area of encephalomalacia in the right medial frontal parietal high co nvexities extending to the vertex. 2. No evidence for acute abnormality. Specifically, no acute infarction, hemor rhage or hydrocephalus. 3. Paranasal sinus mucosal disease. Last Impressions Chest X-Ray 11/30/17 0600 Signed Impressions: CONCLUSION: Patchy areas of increased density related to areas of consolidation or atelecta sis. Renal Ultrasound 11/28/17 Signed Impressions: CONCLUSION: 1. Echogenic kidneys consistent with medical renal disease. 2. No obstructive uropathy. Head CT 11/28/17 Signed Impressions: CONCLUSION: 1. No acute hemorrhage or mass effect. 2. Large area of encephalomalacia involving the right frontal and parietal lob e. 3. Chronic sinusitis. Brain MRI 11/28/17 Signed Impressions: CONCLUSION: 1. Large area of encephalomalacia in the right medial frontal parietal high co nvexities extending to the vertex. 2. No evidence for acute abnormality. Specifically, no acute infarction, hemor rhage or hydrocephalus. 3. Paranasal sinus mucosal disease. Objective Remarks GENERAL: This is a -[place] middle-age male well-developed well- nourished who appears much older than stated age, lying in bed, intubated, awake responsive on Precedex infusion HEENT: Normocephalic. Atraumatic. Pupils equal, round, reactive, conjugate. Orotracheally intubated NECK: Trachea is midline. No JVD CHEST: Intubated with an 8.0 ET tube. Currently on CPAP 40%. Equal chest rise. Currently on CPAP trials. Bilateral coarse rhonchi and crackles CARDIOVASCULAR: Normal rate, regular rhythm. Appears sinus by telemetry. ABDOMEN: Soft, nontender, nondistended. No guarding. MUSCULOSKELETAL: Pulses 2+. 2+ peripheral edema B/L upper and lower extremities NEUROLOGICAL: RASS -1. Intubated. Follows commands A/P Assessment and Plan Assessment: 47-year-old male with prior stroke who presents with severe acute congestive heart failure exacerbation, unknown type, with associated acute hypoxic and hypercarbic respiratory failure, acute metabolic encephalopathy, acute kidney injury. Remains critically ill. still awaiting echo to determine ventricular function. still appears cardiac in origin and not infectious. remains afebrile with normal wbc count. remains very critically ill with minimal if any improvement over last 48h. off pathway. Plan by systems: Neurologic: Acute metabolic encephalopathy History of prior CVA MRI-old frontoparietal encephalomalacia, no acute findings EEG-generalized slowing without seizures Frequent neurochecks Propofol for goal RASS -2, Avoid long-acting sedatives. daily sedation vacation Tox screen, UDS positive only for benzodiazepines B12 normal GCS 11T Respiratory: Acute hypoxic and hypercarbic respiratory failure Moderate pulmonary edema Vent bundle, Head of bed elevated Nebs every 6 hours scheduled and as needed Continue CPAP trials-now averaging 12-16 hours a day. Plan for SBT Wean FiO2 for goal SPO2 greater than 90% Cardiovascular: Acute severe congestive heart failure exacerbation, unknown type Mildly Elevated troponin Lasix 80 mg IV 1 given 11/29, now scheduled Lasix 40 every 12 with IV albumin 12/01 2D echo -EF 60-65%, trace TR, mild LAE, mild MVR, No RWMA Patient has severe anemia with a hemoglobin of 5.9 , status post transfusion 2 units of packed cells, continue to monitor 12/02 ASA resumed Renal: Acute kidney injury superimposed on chronic renal insufficiency with an unknown baseline Likely secondary to venous congestion from CHF Continue Dudley Diuresis as above Renal ultrasound: no obstruction or hydro FENa on admission 3.7% (unknown if on chronic lasix) FEUrea on admission 47.3%- suggestive of intrinsic renal disease. urine eosinophils negative -Nephrology following-urine output approximately 60 cc/hour FEN/GI: Acute intravascular volume overload Diuresis as above Tube feeds with Nepro, minimal residual 12/01 CT of the abdomen and pelvis- Bibasilar consolidating lung infiltrate. Hepatosplenomegaly Calcified adrenal glands. Trace ascites. PEG tube and Dudley catheter in place. Inguinal lymphadenopathy. Calcific arthropathy of the left hip. No acute intestinal abnormality hydronephrosis or suspicious abdominopelvic masses. Heme/ID: Severe anemia, likely secondary to chronic disease s/p 2 unit PRBCs on 11/28 Holding anticoagulation until etiology is determined Iron studies: low iron, low TIBC, high ferritin. suggests chronic disease as a cause. Daily CBC Pro calcitonin 1.4 intermediate risk. blood cultures 11/28 GPCs in 2/ bottles sputum culture 11/28 GNR- ESBL 11/25 ID following Hemoccult negative CT of the abdomen and pelvis Endocrine: Hyperglycemia of critical illness Diabetes Glucose monitoring per ICU protocol, high dose regimen 12/07 Levemir 5 units twice daily added -- SSI Prophylaxis: GI Prophylaxis IV PPI- BID DVT Prophylaxis -- SCDs Heparin SQ reinitiated 12/04 Lines: Peripheral IVs Dudley Dispo: Level 3 follow up Physician Tata Avila MD Dec 07, 2017 16:45
--- NOTE | 2017-12-07 16:56 | HHI.IDPN ---
Subjective Subjective Remarks Patient is a 47-year-old male, who [facility], with history of CVA, brought into the hospital for decreased level of consciousness, decreased oxygen saturation. In the ED he was noted to have some pink frothy sputum. He was emergently intubated. His chest x-ray showed bilateral pulmonary infiltrates consistent with pulmonary edema. 2 blood cultures were done in the emergency room, and they are both growing staph hominis. Sputum culture also is now reported as growing Klebsiella ESBL positive. His chest x- ray has shown some worsening of his infiltrates. He was also found to have acute kidney injury. Patient is being managed for pulmonary edema, as well as sepsis. He has been getting vancomycin as well as Zosyn. He was initially febrile on his first hospital day, but that has improved. Patient's white count has been normal. Patient remains on the respirator. He has good urine output, but his creatinine remains elevated. There is no evidence of obstruction on his renal ultrasound. CT of the abdomen and pelvis are showing chronic changes of encephalomalacia compatible with his prior history of CVA. Infectious disease consultation has been requested to evaluate the patient. Notes reviewed Temps better Tolerating CPAP Sputum with GNR BC negative No central line HAs triplett cath Has a lot of ET secretions, beige brownish color Last CXR worsening infiltrates MRI L foot with osteo Antibiotics Meropenem Vancomycin Current Medications Medications (Trade) Dose Ordered Sig/Arthur Route Start Time Stop Time Status Last Admin (Brethine Inj) 1 mg UNSCH PRN SQ 11/28/17 05:30 (NS Flush) 2 ml UNSCH PRN IV FLUSH 11/28/17 05:45 12/05/17 08:07 (NS Flush) 2 ml BID IV FLUSH 11/28/17 09:00 12/07/17 07:41 (Tylenol) 650 mg Q6H PRN PO 11/28/17 05:45 12/06/17 08:41 (Tears Naturale Opth Soln) 1 drop TID EACH EYE 11/28/17 09:00 12/07/17 10:57 (Zofran Inj) 4 mg Q6H PRN IV PUSH 11/28/17 05:45 (Duoneb Neb) 1 ampule Q2HR NEB PRN INH 11/28/17 05:45 12/05/17 16:27 ([facility] [place] [facility]) 1 Q361D XX 11/28/17 05:45 (Chlorhexidine 2% Cloth) Taper DAILY@04 TOP 11/29/17 04:00 11/25/18 03:59 12/03/17 04:00 (Chlorhexidine 2% Cloth) 3 pack UNSCH PRN TOP 11/28/17 05:45 (Jessie-Colace) 1 tab BID PO 11/28/17 09:00 12/07/17 07:41 (Milk Of Magnesia Liq) 30 ml Q12H PRN PO 11/28/17 05:45 (Senokot) 17.2 mg Q12H PRN PO 11/28/17 05:45 (Dulcolax Supp) 10 mg DAILY PRN RECTAL 11/28/17 05:45 (Lactulose Liq) 30 ml DAILY PRN PO 11/28/17 05:45 12/01/17 11:49 (D50w (Vial) Inj) 25 ml UNSCH PRN IV PUSH 11/28/17 06:15 (Protonix Inj) 40 mg Q12H IV PUSH 11/28/17 12:00 12/07/17 10:57 Pharmacy Profile Note 0 ml @ 0 mls/hr UNSCH OTHER 11/30/17 08:30 (Santyl Oint) 1 applic DAILY TOPICAL 12/01/17 09:00 12/07/17 07:41 (Aspirin Chew) 81 mg DAILY CHEW 12/04/17 09:00 12/07/17 07:40 ([facility] [place] [facility]) D/C ICU ELECTROLYTE ORDERS... UNSCH PRN .XX 12/04/17 07:00 ([facility] [place] [facility] Information) ICU - CALL ORDERING PHYSIC... UNSCH PRN .XX 12/04/17 07:00 Potassium Chloride 100 ml @ 25 mls/hr UNSCH PRN IV 12/04/17 07:00 (K-Lyte Cl Eff) 50 meq UNSCH PRN PO 12/04/17 07:00 12/04/17 10:09 Potassium Chloride 100 ml @ 50 mls/hr UNSCH PRN IV 12/04/17 07:00 Magnesium Sulfate 4 gm/Sodium Chloride 108 ml @ 54 mls/hr UNSCH PRN IV 12/04/17 07:00 Magnesium Sulfate 2 gm/Sodium Chloride 104 ml @ 52 mls/hr UNSCH PRN IV 12/04/17 07:00 (Mag-Ox) 800 mg UNSCH PRN PO 12/04/17 07:00 Sodium Phosphate 30 mmol/Sodium Chloride 260 ml @ 43.333 mls/ hr UNSCH PRN IV 12/04/17 07:00 (K-Phos) 2,000 mg UNSCH PRN PO 12/04/17 07:00 Potassium Phosphate 30 mmol/ Sodium Chloride 260 ml @ 43.333 mls/ hr UNSCH PRN IV 12/04/17 07:00 (Trandate Inj) 10 mg Q4H PRN IV PUSH 12/04/17 16:30 12/07/17 10:58 (Apresoline Inj) 20 mg Q4H PRN IV PUSH 12/04/17 16:30 (NovoLOG SUPPLEMENTAL SCALE) 1 Q6H SQ 12/05/17 18:00 12/07/17 11:02 ([place] 5-325 Mg) 1 tab Q6H PRN PEG 12/05/17 18:30 12/07/17 07:40 Dexmedetomidine HCl 1000 mcg/ Sodium Chloride 250 ml @ 4.22 mls/hr TITRATE PRN IV 12/05/17 18:30 12/07/17 11:00 (Apresoline) 100 mg Q8H PO 12/06/17 02:00 12/07/17 10:57 Meropenem 1000 mg/ Sodium Chloride 100 ml @ 200 mls/hr Q8H IV 12/06/17 12:00 12/07/17 10:59 (Levaquin) 750 mg DAILY PO 12/06/17 11:00 12/07/17 07:39 (Levemir Inj) 5 units Q12HR SQ 12/07/17 21:00 UNV Lines Chest X-Ray 12/06/17 0600 Signed Impressions: CONCLUSION: Possible slight worsening of pulmonary edema since the prior exam. Chest X-Ray 12/05/17 0600 Signed Impressions: CONCLUSION: No appreciable change. Foot MRI 12/05/17 0000 Signed Impressions: CONCLUSION: 1. Probable artifact involving the distal portion of the fifth metatarsal on t he T2 sequence could be further characterized with bone scan based on clinical grounds. Otherwise unremarkable. Foot MRI 12/05/17 0000 Signed Impressions: CONCLUSION: 1. Marked enhancement in the subcutaneous tissues in the lateral aspect of the foot. Abnormal areas of bone marrow edema in the fifth metatarsal shaft concer khanh for residual osteomyelitis. There is also edema in the fourth metatarsal h ead concerning for an additional area of osteomyelitis Chest X-Ray 12/04/17599 Signed Impressions: CONCLUSION: Moderate pulmonary edema is suspected, however there is slight overall improvem ent in aeration of the left lung is the prior exam. Last Impressions Chest X-Ray 12/02/17599 Signed Impressions: CONCLUSION: No significant change. Left greater than right parenchymal consolidation and sm all left pleural effusion again noted. Abdomen/Pelvis CT 12/01/17 Signed Impressions: CONCLUSION: 1. Bibasilar consolidating lung infiltrate 2. Hepatosplenomegaly 3. Calcified adrenal glands. 4. Trace ascites. 5. PEG tube and Triplett catheter in place. 6. Inguinal lymphadenopathy. 7. Calcific arthropathy of the left hip. 8. No acute intestinal abnormality hydronephrosis or suspicious abdominopelvic masses. Renal Ultrasound 11/28/17 Signed Impressions: CONCLUSION: 1. Echogenic kidneys consistent with medical renal disease. 2. No obstructive uropathy. Head CT 11/28/17 Signed Impressions: CONCLUSION: 1. No acute hemorrhage or mass effect. 2. Large area of encephalomalacia involving the right frontal and parietal lob e. 3. Chronic sinusitis. Brain MRI 11/28/17 Signed Impressions: CONCLUSION: 1. Large area of encephalomalacia in the right medial frontal parietal high co nvexities extending to the vertex. 2. No evidence for acute abnormality. Specifically, no acute infarction, hemor rhage or hydrocephalus. 3. Paranasal sinus mucosal disease. Past Medical History GENERAL: sedated on the vent,NAD SKIN: Warm and dry. No generalized rash HEAD: Atraumatic. Normocephalic. No temporal wasting, or tenderness. EYES: Pale conjunctiva. No petechia or hemorrhage. Pupils equal, round and reactive to light. No scleral icterus. No injection or drainage. EARS, NOSE AND THROAT: Nose without bleeding or purulent nasal discharge. He is orally intubated. NECK: Trachea midline. Supple and not tender, no meningeal signs CARDIOVASCULAR: Regular rate and rhythm. Limited exam due to the diffuse rhonchi RESPIRATORY: Bilateral diffuse rhonchi ABDOMEN: Soft, mildly distended, no reaction to palpation, no guarding. Bowel sounds present and normoactive. EXTREMITIES: No clubbing, cyanosis. Has edema of both hands. No pedal edema. Dressings to both intact. Well perfused and warm. NEUROLOGICAL: Sedated on the vent. PSYCHIATRIC: Unable to assess. LINE: No evidence of infection : Triplett catheter in place, urine looks clear Allergies: Coded Allergies: No Known Allergies (Verified Allergy, Severe, 11/03/06) Objective . Vital Signs Date Time Temp Pulse Resp B/P (MAP) Pulse Ox O2 Delivery O2 Flow Rate FiO2 12/07/17 16:00 30 12/07/17 16:00 79 12/07/17 16:00 99.1 78 25 160/88 (112) 100 12/07/17 15:34 100 30 12/07/17 14:00 78 12/07/17 12:00 99.0 78 21 175/93 (120) 100 12/07/17 12:00 78 12/07/17 12:00 30 12/07/17 11:40 100 30 12/07/17 10:00 73 12/07/17 09:00 30 12/07/17 08:18 30 12/07/17 08:07 100 30 12/07/17 08:00 74 12/07/17 08:00 99.1 74 18 186/95 (125) 100 12/07/17 08:00 30 12/07/17 06:00 77 12/07/17 04:49 98 30 12/07/17 04:00 30 12/07/17 04:00 76 12/07/17 04:00 98.6 76 38 154/73 (100) 100 12/07/17 02:00 74 12/07/17 00:41 100 30 12/07/17 00:00 98.8 74 11 193/91 (125) 100 12/07/17 00:00 30 12/07/17 00:00 74 12/06/17 22:00 72 12/06/17 20:00 72 12/06/17 20:00 98.8 72 18 143/76 (98) 100 12/06/17 20:00 30 12/06/17 19:45 30 12/06/17 19:45 100 30 12/06/17 18:00 76 . Laboratory Tests Test 12/07/17 08:55 White Blood Count 8.8 TH/MM3 Red Blood Count 3.05 MIL/MM3 Hemoglobin 9.0 GM/DL Hematocrit 27.4 % Mean Corpuscular Volume 89.6 FL Mean Corpuscular Hemoglobin 29.6 PG Mean Corpuscular Hemoglobin Concent 33.1 % Red Cell Distribution Width 13.7 % Platelet Count 290 TH/MM3 Mean Platelet Volume 8.5 FL Neutrophils (%) (Auto) 77.2 % Lymphocytes (%) (Auto) 13.6 % Monocytes (%) (Auto) 6.1 % Eosinophils (%) (Auto) 2.8 % Basophils (%) (Auto) 0.3 % Neutrophils # (Auto) 6.8 TH/MM3 Lymphocytes # (Auto) 1.2 TH/MM3 Monocytes # (Auto) 0.5 TH/MM3 Eosinophils # (Auto) 0.2 TH/MM3 Basophils # (Auto) 0.0 TH/MM3 CBC Comment DIFF FINAL Differential Comment Laboratory Tests Test 12/06/17 04:58 12/07/17 08:55 Blood Urea Nitrogen 56 MG/DL 55 MG/DL Creatinine 1.54 MG/DL 1.42 MG/DL Random Glucose 186 MG/DL 280 MG/DL Calcium Level 8.5 MG/DL 8.9 MG/DL Sodium Level 146 MEQ/L 146 MEQ/L Potassium Level 3.9 MEQ/L 3.7 MEQ/L Chloride Level 115 MEQ/L 114 MEQ/L Carbon Dioxide Level 20.5 MEQ/L 21.2 MEQ/L Anion Gap 11 MEQ/L 11 MEQ/L Estimat Glomerular Filtration Rate 59 ML/MIN 65 ML/MIN Phosphorus Level 4.5 MG/DL Magnesium Level 2.6 MG/DL Microbiology Date/Time Source Procedure Growth Status 12/06/17 12:18 Blood Peripheral Aerobic Blood Culture - Preliminary NO GROWTH IN 1 DAY Resulted 12/06/17 12:18 Blood Peripheral Anaerobic Blood Culture - Preliminary NO GROWTH IN 1 DAY Resulted 12/06/17 12:05 Blood Peripheral Aerobic Blood Culture - Preliminary NO GROWTH IN 1 DAY Resulted 12/06/17 12:05 Blood Peripheral Anaerobic Blood Culture - Preliminary NO GROWTH IN 1 DAY Resulted 12/06/17 11:00 Sputum Endotracheal Gram Stain - Final Resulted 12/06/17 11:00 Sputum Culture - Preliminary Gram Negative Fortino Resulted Imaging Last Impressions Chest X-Ray 12/02/17 0600 Signed Impressions: CONCLUSION: No significant change. Left greater than right parenchymal consolidation and sm all left pleural effusion again noted. Abdomen/Pelvis CT 12/01/17 Signed Impressions: CONCLUSION: 1. Bibasilar consolidating lung infiltrate 2. Hepatosplenomegaly 3. Calcified adrenal glands. 4. Trace ascites. 5. PEG tube and Triplett catheter in place. 6. Inguinal lymphadenopathy. 7. Calcific arthropathy of the left hip. 8. No acute intestinal abnormality hydronephrosis or suspicious abdominopelvic masses. Renal Ultrasound 11/28/17 Signed Impressions: CONCLUSION: 1. Echogenic kidneys consistent with medical renal disease. 2. No obstructive uropathy. Head CT 11/28/17 Signed Impressions: CONCLUSION: 1. No acute hemorrhage or mass effect. 2. Large area of encephalomalacia involving the right frontal and parietal lob e. 3. Chronic sinusitis. Brain MRI 11/28/17 Signed Impressions: CONCLUSION: 1. Large area of encephalomalacia in the right medial frontal parietal high co nvexities extending to the vertex. 2. No evidence for acute abnormality. Specifically, no acute infarction, hemor rhage or hydrocephalus. 3. Paranasal sinus mucosal disease. Physical Exam GENERAL: sedated on the vent, not in respiratory distress. SKIN: Warm and dry. No generalized rash HEAD: Atraumatic. Normocephalic. No temporal wasting, or tenderness. EYES: Pale conjunctiva. No petechia or hemorrhage. Pupils equal, round and reactive to light. No scleral icterus. No injection or drainage. EARS, NOSE AND THROAT: Nose without bleeding or purulent nasal discharge. He is orally intubated. NECK: Trachea midline. Supple and not tender, no meningeal signs CARDIOVASCULAR: Regular rate and rhythm. Limited exam due to the diffuse rhonchi RESPIRATORY: Bilateral diffuse rhonchi ABDOMEN: Soft, mildly distended, no reaction to palpation, no guarding. Bowel sounds present and normoactive. EXTREMITIES: No clubbing, cyanosis. Has edema of both hands. No pedal edema. Has dressings to both feet, dry and intact. Well perfused and warm. NEUROLOGICAL: Sedated on the vent. PSYCHIATRIC: Unable to assess. 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
[2017-12-07] MEDS: INSULIN DETEMIR 100 UNITS/ML VIAL SQ SCH (19:55)
[2017-12-08] VITALS (18 sets, daily range): BP systolic 111–160; BP diastolic 61–84; PULSE 82–117; RESP 8–31; TEMP 98.6–99.9; O2SAT 68–100
[2017-12-08] MEDS: DEXMEDETOMIDINE INJ 1,000 MCG in SODIUM CHLOR 0.9% 250 ML INJ 240 ML IV PRN ×2 (01:07→08:57)
[2017-12-08] MEDS: hydrALAZINE HCL 100 MG TAB PO SCH ×3 (01:22→17:33)
[2017-12-08] MEDS: MEROPENEM INJ 1,000 MG in SODIUM CHLORIDE 0.9% INJ 100 ML IV SCH ×3 (03:21→20:26)
[2017-12-08] MEDS: CHLORHEXIDINE GLUCONATE 2 % 1 PACK (2 CLOTHS) TOP SCH (03:22)
[2017-12-08 04:32] LABS: HEMATOCRIT 24.4 % (39.0-51.0); HEMOGLOBIN 8.2 GM/DL (13.0-17.0); MEAN CELL VOLUME 89.4 FL (80.0-100.0); MEAN CORPUSCULAR HGB CONC 33.5 % (32.0-36.0); MEAN PLATELET VOLUME 7.9 FL (7.0-11.0); PLATELET COUNT 310 TH/MM3 (150-450); RED BLOOD COUNT 2.73 MIL/MM3 (4.50-5.90); RED CELL DISTRIBUTION WIDTH 13.8 % (11.6-17.2); WHITE BLOOD COUNT 8.7 TH/MM3 (4.0-11.0)
[2017-12-08 04:42] LABS: BICARBONATE 19.7 MEQ/L (21.0-32.0); CALCIUM 8.3 MG/DL (8.5-10.1); CREATININE 1.23 MG/DL (0.60-1.30); MAGNESIUM 2.2 MG/DL (1.5-2.5); PHOSPHORUS 4.2 MG/DL (2.5-4.9)
--- NOTE | 2017-12-08 04:58 | RADRPT ---
EXAM DATE: 12/08/2017 4:15 AM EDT AGE/SEX: 47 years / Male INDICATIONS: Shortness of breath, possible pulmonary disease. CLINICAL DATA: This is the patient's subsequent encounter. Patient reports that signs and symptoms h ave been present for 1 week and indicates a pain score of Nonresponsive. MEDICAL/SURGICAL HISTORY: Diabetes mellitus type II. Hypertension. Stroke. CABG. COMPARISON: [facility], CHEST SINGLE AP, 12/06/2017. [facility], CHEST SINGLE AP, 12/05/2017. [facility], CHEST SINGL E AP, 12/04/2017. [facility], CHEST SINGLE AP, 12/02/2017. . FINDINGS: The patient is status post sternotomy. The heart size is normal. There is hazy density seen at the saroj ng bases bilaterally. There appears to be a possible calcified granuloma in the left upper lung. CONCLUSION: Mild bibasilar areas of consolidation or atelectasis. This appears stable when compared to the most r ecent chest x-ray. Electronically signed by: Paul Donis MD 12/08/2017 4:57 AM EDT
[2017-12-08] MEDS: INSULIN ASPART SUPPLEMENTAL SCALE SQ SCH ×3 (05:09→17:17)
[2017-12-08] MEDS: LEVOFLOXACIN 750 MG TAB PO SCH (08:58)
[2017-12-08] MEDS: DOCUSATE SODIUM 50 MG/SENNA 8.6 MG TAB PO SCH ×2 (08:58→20:26)
[2017-12-08] MEDS: ASPIRIN 81 MG CHEW TAB CHEW SCH (08:59)
[2017-12-08] MEDS: SODIUM CHLORIDE 0.9% FLUSH 10 ML FLUSH IV FLUSH SCH ×2 (08:59→20:26)
[2017-12-08] MEDS: INSULIN DETEMIR 100 UNITS/ML VIAL SQ SCH ×2 (08:59→20:40)
[2017-12-08] MEDS: ARTIFICIAL TEARS OPTH SOLN 15 ML BTL EACH EYE SCH ×3 (08:59→17:34)
[2017-12-08] MEDS: COLLAGENASE OINT 30 GM TUBE TOPICAL SCH (09:00)
[2017-12-08] MEDS: PANTOPRAZOLE SODIUM 40 MG VIAL IV PUSH SCH (11:55)
[2017-12-08 16:25] LABS: CALCIUM 8.9 MG/DL (8.5-10.1)
[2017-12-08 16:31] LABS: CALCIUM-PROTEIN CORRECTED 8.8 MG/DL (8.5-10.1); TOTAL PROTEIN 7.4 GM/DL (6.4-8.2)
--- NOTE | 2017-12-08 17:23 | HHI.CCPN ---
Subjective Remarks/Hospital Course This is a 47-year-old male with a history of prior stroke who [facility] by [facility] for acute altered mental status. Per EMS reports, he was in his normal state of health last night and then with his reevaluated by the nursing staff and was a GCS of 3 with room air sats of 79%. Of note by the ED physician, the patient had pink frothy sputum on admission to the ER. He was emergently intubated by the emergency department. He has a chest x-ray which demonstrates bilateral infiltrates consistent with pulmonary edema. He has a BNP which is severely elevated at 1300. He has a elevated creatinine suggestive of acute kidney injury with an unknown baseline. Per report he has been treated for an MRSA skin infection. He is afebrile with a normal white count. Critical care medicine is consulted to evaluate manage his acute encephalopathy, multiorgan dysfunction. No additional information is available from the patient due to his severe encephalopathy. SUBJ 11/29: Remains intubated sedated with propofol for vent synchrony. According to RN he did follow commands upper extremities when sedation held. Chest exam reveals bilateral coarse rhonchi, crackles. CXR pending at this time 11/30: remains intubated. cxr with bilateral infiltrates again suggestive of volume overload. 12/01: T-max 100.6. Creatinine and change the patient continues to be positive with fluid, will follow up nephrology's recommendations regarding continued albumin and/Lasix therapy. Hemoglobin stable this a.m. at 7.9. Plan for CT of the abdomen and pelvis for possible source. Stool Hemoccult still pending. Consult ID , appreciate recommendations. Follow-up with podiatry concern for osteomyelitis. Plan for possible I&D bilateral foot ulcers today. 12/02: Late entry note patient seen at 12:45 PM. No acute events overnight. The patient underwent incision and debridement bilateral feet by podiatry today tolerated procedures well. Hemodynamically stable. Creatinine improving. The patient remains on CPAP greater than 8 hours. 12/03: No acute events overnight. The patient tolerated CPAP trials for approximately 8 hours hemodynamically stable. Tolerating tube feeds. 12/04: Tolerated CPAP trials approximately the 8 hours yesterday, on low-dose propofol. Plan to transition to Precedex to facilitate ventilator weaning. Noted chest x-ray slightly improved but pulmonary edema still persists. Patient tolerating tube feeds. 12/05: Late entry note. Patient seen at 7:20 AM. The patient tolerated CPAP trials for approximately 16 hours. Plan for MRI bilateral feet today. Patient has been transitioned to Precedex infusion. Patient noted to have continued elevated blood glucose levels patient transitioned to high dose sliding scale. 12/06: T-max 101.6. Antibiotics changed per ID. MRI showed osteomyelitis left fourth and fifth metatarsal. CPAP trials initiated today patient tolerated CPAP trials approximately 3 hours yesterday. 12/07: Afebrile. Patient continues on CPAP trials today greater than 8 hours on Precedex infusion to facilitate ventilator weaning. Patient's nodding head to yes and no questions following my command. Patient was noted last night he continued to have elevated glucose despite high dose sliding scale regimen, patient placed on Levemir twice daily. 12/08: Late entry note . Patient seen at 1337 . Afebrile. Patient remained on CPAP trials throughout the entire night, greater than 24 hours. Limited SBT obtained, parameters within normal limits. The patient was extubated. He continues on 4 L nasal cannula Objective Vital Signs Date Time Temp Pulse Resp B/P (MAP) Pulse Ox O2 Delivery O2 Flow Rate FiO2 12/08/17 16:12 100 Nasal Cannula 3.00 12/08/17 16:00 98.9 94 8 111/61 (78) 12/08/17 16:00 30 Intake and Output 12/08/17 12/08/17 12/08/17 07:59 15:59 23:59 Intake Total 886 ml 345 ml 222 ml Output Total 700 ml Balance 186 ml 345 ml 222 ml Result Diagram: 12/08/17 0415 12/08/17 0415 Imaging Current Medications Medications (Trade) Dose Ordered Sig/Arthur Route Start Time Stop Time Status Last Admin (Brethine Inj) 1 mg UNSCH PRN SQ 11/28/17 05:30 (NS Flush) 2 ml UNSCH PRN IV FLUSH 11/28/17 05:45 12/05/17 08:07 (NS Flush) 2 ml BID IV FLUSH 11/28/17 09:00 12/06/17 08:21 (Tylenol) 650 mg Q6H PRN PO 11/28/17 05:45 12/06/17 08:41 (Tears Naturale Opth Soln) 1 drop TID EACH EYE 11/28/17 09:00 12/06/17 11:41 (Zofran Inj) 4 mg Q6H PRN IV PUSH 11/28/17 05:45 (Duoneb Neb) 1 ampule Q2HR NEB PRN INH 11/28/17 05:45 12/05/17 16:27 [place] [place] [facility] [place] 1 Q361D XX 11/28/17 05:45 (Chlorhexidine 2% Cloth) Taper DAILY@04 TOP 11/29/17 04:00 11/25/18 03:59 12/03/17 04:00 (Chlorhexidine 2% Cloth) 3 pack UNSCH PRN TOP 11/28/17 05:45 (Jessei-Colace) 1 tab BID PO 11/28/17 09:00 12/05/17 08:06 (Milk Of Magnesia Liq) 30 ml Q12H PRN PO 11/28/17 05:45 (Senokot) 17.2 mg Q12H PRN PO 11/28/17 05:45 (Dulcolax Supp) 10 mg DAILY PRN RECTAL 11/28/17 05:45 (Lactulose Liq) 30 ml DAILY PRN PO 11/28/17 05:45 12/01/17 11:49 (D50w (Vial) Inj) 25 ml UNSCH PRN IV PUSH 11/28/17 06:15 (Protonix Inj) 40 mg Q12H IV PUSH 11/28/17 12:00 12/06/17 11:03 Pharmacy Profile Note 0 ml @ 0 mls/hr UNSCH OTHER 11/30/17 08:30 (Santyl Oint) 1 applic DAILY TOPICAL 12/01/17 09:00 12/06/17 08:22 (Aspirin Chew) 81 mg DAILY CHEW 12/04/17 09:00 12/06/17 08:21 [place] [place] [facility] [place] D/C [place] ELECTROLYTE ORDERS... UNSCH PRN .XX 12/04/17 07:00 [place] [place] [facility] [place] ICU - CALL ORDERING PHYSIC... UNSCH PRN .XX 12/04/17 07:00 Potassium Chloride 100 ml @ 25 mls/hr UNSCH PRN IV 12/04/17 07:00 (K-Lyte Cl Eff) 50 meq UNSCH PRN PO 12/04/17 07:00 12/04/17 10:09 Potassium Chloride 100 ml @ 50 mls/hr UNSCH PRN IV 12/04/17 07:00 Magnesium Sulfate 4 gm/Sodium Chloride 108 ml @ 54 mls/hr UNSCH PRN IV 12/04/17 07:00 Magnesium Sulfate 2 gm/Sodium Chloride 104 ml @ 52 mls/hr UNSCH PRN IV 12/04/17 07:00 (Mag-Ox) 800 mg UNSCH PRN PO 12/04/17 07:00 Sodium Phosphate 30 mmol/Sodium Chloride 260 ml @ 43.333 mls/ hr UNSCH PRN IV 12/04/17 07:00 (K-Phos) 2,000 mg UNSCH PRN PO 12/04/17 07:00 Potassium Phosphate 30 mmol/ Sodium Chloride 260 ml @ 43.333 mls/ hr UNSCH PRN IV 12/04/17 07:00 (Trandate Inj) 10 mg Q4H PRN IV PUSH 12/04/17 16:30 12/06/17 01:44 (Apresoline Inj) 20 mg Q4H PRN IV PUSH 12/04/17 16:30 (NovoLOG SUPPLEMENTAL SCALE) 1 Q6H SQ 12/05/17 18:00 12/06/17 11:41 (Dodge 5-325 Mg) 1 tab Q6H PRN PEG 12/05/17 18:30 Dexmedetomidine HCl 1000 mcg/ Sodium Chloride 250 ml @ 4.22 mls/hr TITRATE PRN IV 12/05/17 18:30 12/06/17 08:21 (Apresoline) 100 mg Q8H PO 12/06/17 02:00 12/06/17 08:41 (ASP Crit: Doc ESBL, MDR A baumannii or P aer) 1 UNSCH X1 PRN .XX 12/06/17 10:00 12/07/17 09:59 ([facility] [place] [facility] [place] 1 UNSCH X1 PRN XX 12/06/17 10:00 12/07/17 09:59 Meropenem 1000 mg/ Sodium Chloride 100 ml @ 200 mls/hr Q8H IV 12/06/17 12:00 12/06/17 14:16 (Levaquin) 750 mg DAILY PO 12/06/17 11:00 12/06/17 10:54 Last Impressions Chest X-Ray 5/30/18 0600 Signed Impressions: CONCLUSION: No appreciable change. Foot X-Ray 12/02/17 Signed Impressions: CONCLUSION: 1. Very limited study. 2. No gross acute abnormality. Abdomen/Pelvis CT 12/01/17 Signed Impressions: CONCLUSION: 1. Bibasilar consolidating lung infiltrate 2. Hepatosplenomegaly 3. Calcified adrenal glands. 4. Trace ascites. 5. PEG tube and Dudley catheter in place. 6. Inguinal lymphadenopathy. 7. Calcific arthropathy of the left hip. 8. No acute intestinal abnormality hydronephrosis or suspicious abdominopelvic masses. Renal Ultrasound 11/28/17 Signed Impressions: CONCLUSION: 1. Echogenic kidneys consistent with medical renal disease. 2. No obstructive uropathy. Head CT 11/28/17 Signed Impressions: CONCLUSION: 1. No acute hemorrhage or mass effect. 2. Large area of encephalomalacia involving the right frontal and parietal lob e. 3. Chronic sinusitis. Brain MRI 11/28/17 Signed Impressions: CONCLUSION: 1. Large area of encephalomalacia in the right medial frontal parietal high co nvexities extending to the vertex. 2. No evidence for acute abnormality. Specifically, no acute infarction, hemor rhage or hydrocephalus. 3. Paranasal sinus mucosal disease. Last Impressions Chest X-Ray 12/04/17599 Signed Impressions: CONCLUSION: Moderate pulmonary edema is suspected, however there is slight overall improvem ent in aeration of the left lung is the prior exam. Foot X-Ray 12/02/17 Signed Impressions: CONCLUSION: 1. Very limited study. 2. No gross acute abnormality. Abdomen/Pelvis CT 12/01/17 Signed Impressions: CONCLUSION: 1. Bibasilar consolidating lung infiltrate 2. Hepatosplenomegaly 3. Calcified adrenal glands. 4. Trace ascites. 5. PEG tube and Dudley catheter in place. 6. Inguinal lymphadenopathy. 7. Calcific arthropathy of the left hip. 8. No acute intestinal abnormality hydronephrosis or suspicious abdominopelvic masses. Renal Ultrasound 11/28/17 Signed Impressions: CONCLUSION: 1. Echogenic kidneys consistent with medical renal disease. 2. No obstructive uropathy. Head CT 11/28/17 Signed Impressions: CONCLUSION: 1. No acute hemorrhage or mass effect. 2. Large area of encephalomalacia involving the right frontal and parietal lob e. 3. Chronic sinusitis. Brain MRI 11/28/17 Signed Impressions: CONCLUSION: 1. Large area of encephalomalacia in the right medial frontal parietal high co nvexities extending to the vertex. 2. No evidence for acute abnormality. Specifically, no acute infarction, hemor rhage or hydrocephalus. 3. Paranasal sinus mucosal disease. Last Impressions Chest X-Ray 12/02/17 06 Signed Impressions: CONCLUSION: No significant change. Left greater than right parenchymal consolidation and sm all left pleural effusion again noted. Foot X-Ray 12/02/17 Signed Impressions: CONCLUSION: 1. Very limited study. 2. No gross acute abnormality. Abdomen/Pelvis CT 12/01/17 Signed Impressions: CONCLUSION: 1. Bibasilar consolidating lung infiltrate 2. Hepatosplenomegaly 3. Calcified adrenal glands. 4. Trace ascites. 5. PEG tube and Dudley catheter in place. 6. Inguinal lymphadenopathy. 7. Calcific arthropathy of the left hip. 8. No acute intestinal abnormality hydronephrosis or suspicious abdominopelvic masses. Renal Ultrasound 11/28/17 Signed Impressions: CONCLUSION: 1. Echogenic kidneys consistent with medical renal disease. 2. No obstructive uropathy. Head CT 11/28/17 Signed Impressions: CONCLUSION: 1. No acute hemorrhage or mass effect. 2. Large area of encephalomalacia involving the right frontal and parietal lob e. 3. Chronic sinusitis. Brain MRI 11/28/17 Signed Impressions: CONCLUSION: 1. Large area of encephalomalacia in the right medial frontal parietal high co nvexities extending to the vertex. 2. No evidence for acute abnormality. Specifically, no acute infarction, hemor rhage or hydrocephalus. 3. Paranasal sinus mucosal disease. Last Impressions Chest X-Ray 11/30/17 06 Signed Impressions: CONCLUSION: Patchy areas of increased density related to areas of consolidation or atelecta sis. Renal Ultrasound 11/28/17 Signed Impressions: CONCLUSION: 1. Echogenic kidneys consistent with medical renal disease. 2. No obstructive uropathy. Head CT 11/28/17 Signed Impressions: CONCLUSION: 1. No acute hemorrhage or mass effect. 2. Large area of encephalomalacia involving the right frontal and parietal lob e. 3. Chronic sinusitis. Brain MRI 11/28/17 0000 Signed Impressions: CONCLUSION: 1. Large area of encephalomalacia in the right medial frontal parietal high co nvexities extending to the vertex. 2. No evidence for acute abnormality. Specifically, no acute infarction, hemor rhage or hydrocephalus. 3. Paranasal sinus mucosal disease. Objective Remarks GENERAL: This is a -[place] middle-age male well-developed well- nourished who appears much older than stated age, lying in bed awake nodding head to yes and no request HEENT: Normocephalic. Atraumatic. Pupils equal, round, reactive, conjugate. Orotracheally intubated NECK: Trachea is midline. No JVD CHEST: Intubated with an 8.0 ET tube. Currently on CPAP 40%. Equal chest rise. Currently on CPAP trials. Lungs clear to auscultate CARDIOVASCULAR: Normal rate, regular rhythm. ABDOMEN: Soft, nontender, nondistended. No guarding. MUSCULOSKELETAL: Pulses 2+. 2+ peripheral edema B/L upper and lower extremities NEUROLOGICAL: RASS 0 Intubated. Follows commands A/P Assessment and Plan Plan by systems: Neurologic: Acute metabolic encephalopathy History of prior CVA MRI-old frontoparietal encephalomalacia, no acute findings EEG-generalized slowing without seizures Frequent neurochecks Propofol for goal RASS -2, Avoid long-acting sedatives. daily sedation vacation Tox screen, UDS positive only for benzodiazepines B12 normal GCS 11T Respiratory: Acute hypoxic and hypercarbic respiratory failure Moderate pulmonary edema Vent bundle, Head of bed elevated Nebs every 6 hours scheduled and as needed Continue CPAP trials-now averaging > 24 hours a day. SBT- NIF -25, RR 31, TV 410, cuff leak. Unable to obtain FVC- Planned extubation Wean FiO2 for goal SPO2 greater than 90% Cardiovascular: Acute severe congestive heart failure exacerbation, unknown type Mildly Elevated troponin Lasix 80 mg IV 1 given 11/29, now scheduled Lasix 40 every 12 with IV albumin 12/01 2D echo -EF 60-65%, trace TR, mild LAE, mild MVR, No RWMA Patient has severe anemia with a hemoglobin of 5.9 , status post transfusion 2 units of packed cells, continue to monitor 12/02 ASA resumed Renal: Acute kidney injury superimposed on chronic renal insufficiency with an unknown baseline Likely secondary to venous congestion from CHF Continue Dudley Diuresis as above Renal ultrasound: no obstruction or hydro FENa on admission 3.7% (unknown if on chronic lasix) FEUrea on admission 47.3%- suggestive of intrinsic renal disease. urine eosinophils negative -Nephrology following FEN/GI: Acute intravascular volume overload Diuresis as above Tube feeds with Nepro, minimal residual 12/01 CT of the abdomen and pelvis- Bibasilar consolidating lung infiltrate. Hepatosplenomegaly Calcified adrenal glands. Trace ascites. PEG tube and Dudley catheter in place. Inguinal lymphadenopathy. Calcific arthropathy of the left hip. No acute intestinal abnormality hydronephrosis or suspicious abdominopelvic masses. Heme/ID: Severe anemia, likely secondary to chronic disease s/p 2 unit PRBCs on 11/28 Holding anticoagulation until etiology is determined Iron studies: low iron, low TIBC, high ferritin. suggests chronic disease as a cause. Daily CBC Pro calcitonin 1.4 intermediate risk. blood cultures 11/28 GPCs in 2/ bottles sputum culture 11/28 GNR- ESBL 11/25 ID following Hemoccult negative CT of the abdomen and pelvis Endocrine: Hyperglycemia of critical illness Diabetes Glucose monitoring per ICU protocol, high dose regimen 12/07 Levemir 5 units twice daily added -- SSI Prophylaxis: GI Prophylaxis IV PPI- BID DVT Prophylaxis -- SCDs Heparin SQ reinitiated 12/04 Lines: Peripheral IVs Dudley Dispo: Level 3 follow up. Patient to remain in ICU overnight status post recent extubation. Plan for transfer to [facility] in [facility] Physician Tata Avila MD Dec 08, 2017 17:23
[2017-12-08] MEDS: RESP: ALBUTEROL 2.5 MG/IPRATROPIUM 0.5 MG NEB (PRN) INH (20:02)
[2017-12-08] MEDS: ONDANSETRON HCL 4 MG/2 ML VIAL IV PUSH PRN (20:40)
--- NOTE | 2017-12-08 21:42 | PD.POD ---
Subjective Podiatric Problems History of chronic ulcerations to feet Past Med/Surg/Social History Social History Smoking Status: Never Smoker Objective Vital Signs Vital Signs Date Time Temp Pulse Resp B/P (MAP) Pulse Ox O2 Delivery O2 Flow Rate FiO2 12/08/17 20:02 93 Nasal Cannula 2.00 12/08/17 18:00 117 12/08/17 16:12 100 Nasal Cannula 3.00 12/08/17 16:12 100 Nasal Cannula 3 12/08/17 16:00 98.9 94 8 111/61 (78) 98 12/08/17 16:00 30 12/08/17 16:00 94 12/08/17 14:00 89 12/08/17 12:08 100 30 12/08/17 12:00 88 12/08/17 12:00 98.9 88 12 159/84 (109) 100 12/08/17 12:00 30 12/08/17 10:00 93 12/08/17 08:00 94 12/08/17 08:00 30 12/08/17 08:00 98.9 94 28 118/63 (81) 97 12/08/17 07:50 99 30 12/08/17 06:00 86 12/08/17 04:15 98 30 12/08/17 04:00 99.0 89 25 119/63 (81) 98 12/08/17 04:00 89 12/08/17 04:00 30 12/08/17 02:00 83 12/08/17 00:49 100 30 12/08/17 00:00 30 12/08/17 00:00 99.1 82 23 160/84 (109) 100 12/08/17 00:00 83 12/07/17 22:00 80 Coded Allergies: No Known Allergies (Verified Allergy, Severe, 11/03/06) Other Results Last 72 hours Impressions Chest X-Ray 12/08/17599 Signed Impressions: CONCLUSION: Mild bibasilar areas of consolidation or atelectasis. This appears stable when compared to the most recent chest x-ray. Chest X-Ray 12/06/17 06 Signed Impressions: CONCLUSION: Possible slight worsening of pulmonary edema since the prior exam. Exam-Podiatry Remarks Right foot with sub 5th met head area wound, granular and stable appearance. No purulence. Left foot with lateral plantar midfoot ulceration with small central eschar and fibrotic tissue. Also stable appearance with no purulence noted. Assessment & Plan A/P Chronic ulcerations to feet, s/p bedside debridement Reviewed XR results with concern for osteomyelitis. Reviewed bilateral MRI R and L foot MRI L with concern for osteomyelitis of 5th and 4th metatarsals MRI R with recommendation for bone scan to further delineate. My recommendation is to continue with santyl dressings and monitor to see if foot issues become acute, because they appear chronic and stable, currently. Re-consult if new issues arise or if foot requires acute care. No further treatment planned at this time. Patient needs to follow up at [facility] upon discharge. Dieudonne Forrester DPM Dec 08, 2017 21:42
[2017-12-09] VITALS (15 sets, daily range): BP systolic 124–173; BP diastolic 68–81; PULSE 116–144; RESP 30–48; TEMP 100.3–101.6; O2SAT 86–100
[2017-12-09] MEDS: PANTOPRAZOLE SODIUM 40 MG VIAL IV PUSH SCH ×3 (00:32→23:28)
[2017-12-09] MEDS: ACETAMINOPHEN 325 MG TAB PO PRN ×3 (00:33→16:33)
[2017-12-09] MEDS: hydrALAZINE HCL 100 MG TAB PO SCH ×3 (02:00→18:03)
[2017-12-09] MEDS: CHLORHEXIDINE GLUCONATE 2 % 1 PACK (2 CLOTHS) TOP SCH ×2 (04:00→23:24)
[2017-12-09] MEDS: MEROPENEM INJ 1,000 MG in SODIUM CHLORIDE 0.9% INJ 100 ML IV SCH ×3 (04:41→20:00)
[2017-12-09] MEDS: LABETALOL HCL 100 MG/20 ML VIAL IV PUSH PRN (04:42)
[2017-12-09 05:28] LABS: HEMATOCRIT 30.7 % (39.0-51.0); HEMOGLOBIN 9.8 GM/DL (13.0-17.0); MEAN CELL VOLUME 91.7 FL (80.0-100.0); MEAN CORPUSCULAR HEMOGLOBIN 29.3 PG (27.0-34.0); MEAN CORPUSCULAR HGB CONC 31.9 % (32.0-36.0); MEAN PLATELET VOLUME 8.5 FL (7.0-11.0); PLATELET COUNT 468 TH/MM3 (150-450); RED BLOOD COUNT 3.34 MIL/MM3 (4.50-5.90); RED CELL DISTRIBUTION WIDTH 14.1 % (11.6-17.2); WHITE BLOOD COUNT 14.8 TH/MM3 (4.0-11.0)
[2017-12-09 05:33] LABS: BICARBONATE 17.5 MEQ/L (21.0-32.0); CALCIUM 9.6 MG/DL (8.5-10.1); CREATININE 1.49 MG/DL (0.60-1.30); MAGNESIUM 2.2 MG/DL (1.5-2.5); PHOSPHORUS 4.2 MG/DL (2.5-4.9)
[2017-12-09] MEDS: INSULIN ASPART SUPPLEMENTAL SCALE SQ SCH ×5 (06:00→23:23)
[2017-12-09] MEDS: RESP: ALBUTEROL 2.5 MG/IPRATROPIUM 0.5 MG NEB (PRN) INH ×4 (07:40→20:47)
[2017-12-09] MEDS: ONDANSETRON HCL 4 MG/2 ML VIAL IV PUSH PRN ×2 (07:54→15:48)
[2017-12-09] MEDS ORDERED: METOPROLOL TARTRATE 5 MG/5 ML VIAL ONE (08:23)
[2017-12-09] MEDS: ASPIRIN 81 MG CHEW TAB CHEW SCH (08:53)
[2017-12-09] MEDS: ARTIFICIAL TEARS OPTH SOLN 15 ML BTL EACH EYE SCH ×3 (08:53→18:03)
[2017-12-09] MEDS: DOCUSATE SODIUM 50 MG/SENNA 8.6 MG TAB PO SCH ×2 (08:54→19:43)
[2017-12-09] MEDS: COLLAGENASE OINT 30 GM TUBE TOPICAL SCH (08:54)
[2017-12-09] MEDS: INSULIN DETEMIR 100 UNITS/ML VIAL SQ SCH ×2 (08:54→20:01)
[2017-12-09] MEDS: LEVOFLOXACIN 750 MG TAB PO SCH (08:54)
[2017-12-09] MEDS: SODIUM CHLORIDE 0.9% FLUSH 10 ML FLUSH IV FLUSH SCH ×2 (08:54→20:00)
--- NOTE | 2017-12-09 10:10 | HHI.PR ---
Subjective Remarks This is a 47-year-old male with a history of prior stroke who presented from intermediate facility by EMS for acute altered mental status. Per EMS reports, he was in his normal state of health last night and then with his reevaluated by the nursing staff and was a GCS of 3 with room air sats of 79%. Of note by the ED physician, the patient had pink frothy sputum on admission to the ER. He was emergently intubated by the emergency department. He has a chest x-ray which demonstrates bilateral infiltrates consistent with pulmonary edema. He has a BNP which is severely elevated at 1300. He has a elevated creatinine suggestive of acute kidney injury with an unknown baseline. Per report he has been treated for an MRSA skin infection. He is afebrile with a normal white count. Critical care medicine is consulted to evaluate manage his acute encephalopathy, multiorgan dysfunction. No additional information is available from the patient due to his severe encephalopathy. SUBJ 11/29: Remains intubated sedated with propofol for vent synchrony. According to RN he did follow commands upper extremities when sedation held. Chest exam reveals bilateral coarse rhonchi, crackles. CXR pending at this time 11/30: remains intubated. cxr with bilateral infiltrates again suggestive of volume overload. 12/01: T-max 100.6. Creatinine and change the patient continues to be positive with fluid, will follow up nephrology's recommendations regarding continued albumin and/Lasix therapy. Hemoglobin stable this a.m. at 7.9. Plan for CT of the abdomen and pelvis for possible source. Stool Hemoccult still pending. Consult ID , appreciate recommendations. Follow-up with podiatry concern for osteomyelitis. Plan for possible I&D bilateral foot ulcers today. 12/02: Late entry note patient seen at 12:45 PM. No acute events overnight. The patient underwent incision and debridement bilateral feet by podiatry today tolerated procedures well. Hemodynamically stable. Creatinine improving. The patient remains on CPAP greater than 8 hours. 12/03: No acute events overnight. The patient tolerated CPAP trials for approximately 8 hours hemodynamically stable. Tolerating tube feeds. 12/04: Tolerated CPAP trials approximately the 8 hours yesterday, on low-dose propofol. Plan to transition to Precedex to facilitate ventilator weaning. Noted chest x-ray slightly improved but pulmonary edema still persists. Patient tolerating tube feeds. 12/05: Late entry note. Patient seen at 7:20 AM. The patient tolerated CPAP trials for approximately 16 hours. Plan for MRI bilateral feet today. Patient has been transitioned to Precedex infusion. Patient noted to have continued elevated blood glucose levels patient transitioned to high dose sliding scale. 12/06: T-max 101.6. Antibiotics changed per ID. MRI showed osteomyelitis left fourth and fifth metatarsal. CPAP trials initiated today patient tolerated CPAP trials approximately 3 hours yesterday. 12/07: Afebrile. Patient continues on CPAP trials today greater than 8 hours on Precedex infusion to facilitate ventilator weaning. Patient's nodding head to yes and no questions following my command. Patient was noted last night he continued to have elevated glucose despite high dose sliding scale regimen, patient placed on Levemir twice daily. 12/08: Late entry note . Patient seen at 1337 . Afebrile. Patient remained on CPAP trials throughout the entire night, greater than 24 hours. Limited SBT obtained, parameters within normal limits. The patient was extubated. He continues on 4 L nasal cannula 6-3 TRANSFERRED TO OUR SERVICE TODAY STILL SHORT OF BREATH WILL GIVE LASIX GET A CHEST XRAY DW RN AND PT AM LABS Objective Vitals Vital Signs Date Time Temp Pulse Resp B/P (MAP) Pulse Ox O2 Delivery O2 Flow Rate FiO2 12/09/17 08:40 96 Venturi Mask 6.00 50 12/09/17 07:40 94 Nasal Cannula 6.00 12/09/17 06:00 144 12/09/17 04:00 100.3 134 34 157/81 (106) 86 12/09/17 04:00 134 12/09/17 02:00 128 12/09/17 00:00 117 12/09/17 00:00 101.6 117 34 131/68 (89) 99 12/08/17 22:00 109 12/08/17 20:02 93 Nasal Cannula 2.00 12/08/17 20:00 99.9 110 31 120/67 (84) 68 12/08/17 20:00 110 12/08/17 18:00 117 12/08/17 16:12 100 Nasal Cannula 3.00 12/08/17 16:12 100 Nasal Cannula 3 12/08/17 16:00 98.9 94 8 111/61 (78) 98 12/08/17 16:00 30 12/08/17 16:00 94 12/08/17 14:00 89 12/08/17 12:08 100 30 12/08/17 12:00 88 12/08/17 12:00 98.9 88 12 159/84 (109) 100 12/08/17 12:00 30 I/O 12/08/17 12/08/17 12/08/17 12/09/17 12/09/17 12/09/17 07:00 15:00 23:00 07:00 15:00 23:00 Intake Total 886 ml 345 ml 672 ml Output Total 700 ml 625 ml 800 ml Balance 186 ml 345 ml 47 ml -800 ml Intake IV Total 350 ml 345 ml 222 ml Tube Feeding 416 ml 450 ml Other 120 ml Output Urine Total 700 ml 625 ml 800 ml # Bowel Movements 0 2 1 Result Diagram: 12/09/17 0421 12/09/17 0421 Other Results Laboratory Tests Test 12/07/17 08:55 12/08/17 04:15 12/09/17 04:21 12/09/17 08:32 White Blood Count 8.8 TH/MM3 8.7 TH/MM3 14.8 TH/MM3 Red Blood Count 3.05 MIL/MM3 2.73 MIL/MM3 3.34 MIL/MM3 Hemoglobin 9.0 GM/DL 8.2 GM/DL 9.8 GM/DL Hematocrit 27.4 % 24.4 % 30.7 % Mean Corpuscular Volume 89.6 FL 89.4 FL 91.7 FL Mean Corpuscular Hemoglobin 29.6 PG 30.0 PG 29.3 PG Mean Corpuscular Hemoglobin Concent 33.1 % 33.5 % 31.9 % Red Cell Distribution Width 13.7 % 13.8 % 14.1 % Platelet Count 290 TH/MM3 310 TH/MM3 468 TH/MM3 Mean Platelet Volume 8.5 FL 7.9 FL 8.5 FL Neutrophils (%) (Auto) 77.2 % Lymphocytes (%) (Auto) 13.6 % Monocytes (%) (Auto) 6.1 % Eosinophils (%) (Auto) 2.8 % Basophils (%) (Auto) 0.3 % Neutrophils # (Auto) 6.8 TH/MM3 Lymphocytes # (Auto) 1.2 TH/MM3 Monocytes # (Auto) 0.5 TH/MM3 Eosinophils # (Auto) 0.2 TH/MM3 Basophils # (Auto) 0.0 TH/MM3 CBC Comment DIFF FINAL Differential Comment Blood Urea Nitrogen 55 MG/DL 48 MG/DL 51 MG/DL Creatinine 1.42 MG/DL 1.23 MG/DL 1.49 MG/DL Random Glucose 280 MG/DL 192 MG/DL 98 MG/DL Calcium Level 8.9 MG/DL 8.3 MG/DL 9.6 MG/DL Phosphorus Level 4.5 MG/DL 4.2 MG/DL 4.2 MG/DL Magnesium Level 2.6 MG/DL 2.2 MG/DL 2.2 MG/DL Sodium Level 146 MEQ/L 148 MEQ/L 153 MEQ/L Potassium Level 3.7 MEQ/L 4.3 MEQ/L 3.9 MEQ/L Chloride Level 114 MEQ/L 119 MEQ/L 121 MEQ/L Carbon Dioxide Level 21.2 MEQ/L 19.7 MEQ/L 17.5 MEQ/L Anion Gap 11 MEQ/L 9 MEQ/L 15 MEQ/L Estimat Glomerular Filtration Rate 65 ML/MIN 76 ML/MIN 61 ML/MIN Random Vancomycin Level 13.3 COMMENT 14.3 COMMENT Protein Corrected Calcium 8.8 MG/DL Ammonia 29 MCMOL/L Total Protein 7.4 GM/DL Blood Gas Puncture Site RT RADIAL Blood Gas Patient Temperature 98.6 Blood Gas HCO3 19 mmol/L Blood Gas Base Excess -4.9 mmol/L Blood Gas Oxygen Saturation 88 % Arterial Blood pH 7.37 Arterial Blood Partial Pressure CO2 34 mmHg Arterial Blood Partial Pressure O2 62 mmHg Arterial Blood Oxygen Content 14.4 Vol % Arterial Blood Carboxyhemoglobin 0.9 % Arterial Blood Methemoglobin 1.3 % Blood Gas Hemoglobin 11.6 G/DL Oxygen Delivery Device NASAL CANNULA Blood Gas Liter Flow 6 L/M Imaging Last Impressions Chest X-Ray 12/08/17 0600 Signed Impressions: CONCLUSION: Mild bibasilar areas of consolidation or atelectasis. This appears stable when compared to the most recent chest x-ray. Foot MRI 12/05/17 Signed Impressions: CONCLUSION: 1. Probable artifact involving the distal portion of the fifth metatarsal on t he T2 sequence could be further characterized with bone scan based on clinical grounds. Otherwise unremarkable. Foot X-Ray 12/02/17 Signed Impressions: CONCLUSION: 1. Very limited study. 2. No gross acute abnormality. Abdomen/Pelvis CT 12/01/17 Signed Impressions: CONCLUSION: 1. Bibasilar consolidating lung infiltrate 2. Hepatosplenomegaly 3. Calcified adrenal glands. 4. Trace ascites. 5. PEG tube and Dudley catheter in place. 6. Inguinal lymphadenopathy. 7. Calcific arthropathy of the left hip. 8. No acute intestinal abnormality hydronephrosis or suspicious abdominopelvic masses. Renal Ultrasound 11/28/17 Signed Impressions: CONCLUSION: 1. Echogenic kidneys consistent with medical renal disease. 2. No obstructive uropathy. Head CT 11/28/17 Signed Impressions: CONCLUSION: 1. No acute hemorrhage or mass effect. 2. Large area of encephalomalacia involving the right frontal and parietal lob e. 3. Chronic sinusitis. Brain MRI 11/28/17 Signed Impressions: CONCLUSION: 1. Large area of encephalomalacia in the right medial frontal parietal high co nvexities extending to the vertex. 2. No evidence for acute abnormality. Specifically, no acute infarction, hemor rhage or hydrocephalus. 3. Paranasal sinus mucosal disease. Objective Remarks GENERAL: AWAKE AND ALERT NOT ORIENTED CONFUSED SKIN: Warm and dry. BL FEET DRESSED HEAD: Atraumatic. Normocephalic. EYES: Pupils equal and round. No scleral icterus. No injection or drainage. EOMI ENT: No nasal bleeding or discharge. Mucous membranes pink and moist. NECK: Trachea midline. No JVD. SUPPLE CARDIOVASCULAR: IRRegular rate and rhythm. S1, S2 NO S3 OR S4 RESPIRATORY: No accessory muscle use. Breath sounds equal bilaterally. COARSE BREATH SOUNDS AND RHONCHI BL GASTROINTESTINAL: Abdomen soft, non-tender, nondistended. Hepatic and splenic margins not palpable. MUSCULOSKELETAL: Extremities without clubbing, cyanosis, or edema. No obvious deformities. BL FEET DRESSED NEUROLOGICAL: Awake and alert. No obvious cranial nerve deficits. Motor grossly within normal limits. 4 out of 5 muscle strength in the arms and legs. ABNormal speech. PSYCHIATRIC: INAppropriate mood and affect; insight and judgment ABnormal. Procedures INTUBATION AND VENT Medications and IVs Current Medications Sodium Chloride (NS Flush) 2 ml UNSCH PRN IVF FLUSH AFTER USING IV ACCESS; Start 11/28/17 at 05:15; Stop 11/28/17 at 06:13; Status DC Furosemide (Lasix Inj) 40 mg ONCE ONCE IVP Last administered on 11/28/17at 05: 45; Start 11/28/17 at 05:15; Stop 11/28/17 at 05:16; Status DC Norepinephrine Bitartrate 4 mg/ Sodium Chloride 250 ml @ 7.5 mls/hr TITRATE PRN IV Blood pressure management Last administered on 11/28/17at 07:48; Start at 05:30; Stop 11/29/17 at 08:18; Status DC Terbutaline Sulfate (Brethine Inj) 1 mg UNSCH PRN SQ For Extravasation; Start 11/28/17 at 05:30 Cefepime HCl 2000 mg/Sodium Chloride 100 ml @ 200 mls/hr ONCE STAT IV Last administered on 11/28/17at 05:45; Start 11/28/17 at 05:23; Stop 11/28/17 at 05:52 ; Status DC Azithromycin 500 mg/Sodium Chloride 250 ml @ 250 mls/hr ONCE STAT IV Last administered on 11/28/17at 05:45; Start 11/28/17 at 05:23; Stop 11/28/17 at 06:26 ; Status DC Tobramycin Sulfate 630 mg/ Sodium Chloride 115.75 ml @ 100 mls/ hr ONCE STAT IV ; Start 11/28/17 at 05:23; Stop 11/28/17 at 06:32; Status DC Sodium Chloride 250 ml @ 15 mls/hr ONCE ONCE IV Last administered on at 10:02; Start 11/28/17 at 05:45; Stop 11/28/17 at 22:24; Status DC Sodium Chloride 1,000 ml @ 84 mls/hr [id number] IV ; Start 11/28/17 at 05:39; Stop 11/28/17 at 06:13; Status DC Sodium Chloride (NS Flush) 2 ml UNSCH PRN IV FLUSH FLUSH AFTER USING IV ACCESS Last administered on 12/05/17at 08:07; Start 11/28/17 at 05:45 Sodium Chloride (NS Flush) 2 ml BID IV FLUSH Last administered on 12/09/17at 08: 54; Start 11/28/17 at 09:00 Acetaminophen (Tylenol) 650 mg Q6H PRN PO PAIN 1-10 AND/OR FEVER >101F Last administered on 12/09/17at 07:55; Start 11/28/17 at 05:45 Famotidine (Pepcid Inj) 20 mg Q12HR IV PUSH Last administered on 11/28/17 08: 49; Start 11/28/17 at 09:00; Stop 11/28/17 at 09:19; Status DC Artificial Tears (Tears Naturale Opth Soln) 1 drop TID EACH EYE Last administered on 12/09/17 08:53; Start 11/28/17 at 09:00 Ondansetron HCl (Zofran Inj) 4 mg Q6H PRN IV PUSH NAUSEA OR VOMITING Last administered on 12/09/17 07:54; Start 11/28/17 at 05:45 Albuterol/ Ipratropium (Duoneb Neb) 1 ampule Q2HR NEB PRN INH WHEEZING Last administered on 12/09/17 07:40; Start 11/28/17 at 05:45 Miscellaneous Information ([facility] Nursing Information) 1 Q361D XX ; Start at 05:45 Chlorhexidine Gluconate (Chlorhexidine 2% Cloth) Taper DAILY@04 TOP Last administered on 12/03/17at 04:00; Start 11/29/17 at 04:00; Stop 11/25/18 at 03:59 Chlorhexidine Gluconate (Chlorhexidine 2% Cloth) 3 pack UNSCH PRN TOP HYGIENIC CARE; Start 11/28/17 at 05:45 Senna/Docusate Sodium (Jessie-Colace) 1 tab BID PO Last administered on 12/08/17 08:58; Start 11/28/17 at 09:00 Magnesium Hydroxide (Milk Of Magnesia Liq) 30 ml Q12H PRN PO Mild constipation ; Start 11/28/17 at 05:45 Sennosides (Senokot) 17.2 mg Q12H PRN PO Moderate constipation; Start 11/28/17 at 05:45 Bisacodyl (Dulcolax Supp) 10 mg DAILY PRN RECTAL SEVERE CONSITIPATION; Start at 05:45 Lactulose (Lactulose Liq) 30 ml DAILY PRN PO SEVERE CONSITIPATION Last administered on 12/01/17at 11:49; Start 11/28/17 at 05:45 Furosemide (Lasix Inj) 80 mg STAT STAT IV PUSH Last administered on 5/23/18at 06:40; Start 11/28/17 at 06:10; Stop 11/28/17 at 06:12; Status DC Dextrose (D50w (Vial) Inj) 25 ml UNSCH PRN IV PUSH HYPOGLYCEMIA-SEE COMMENTS; Start 11/28/17 at 06:15 Insulin Human Regular (NovoLIN R SUPPLEMENTAL SCALE) 1 Q6HR SQ Last administered on 12/05/17at 12:21; Start 11/28/17 at 12:00; Stop 12/05/17 at 16:08 ; Status DC Chlorothiazide Sodium (Diuril Inj) 500 mg ONCE ONCE IV Last administered on at 09:47; Start 11/28/17 at 09:00; Stop 11/28/17 at 09:01; Status DC Famotidine (Pepcid Inj) 10 mg Q12HR IV PUSH ; Start 11/28/17 at 21:00; Stop at 21:00; Status DC Pantoprazole Sodium (Protonix Inj) 40 mg Q12H IV PUSH Last administered on at 00:32; Start 11/28/17 at 12:00 Propofol 100 ml @ 2.7 mls/hr TITRATE PRN IV SEDATION Last administered on 12/05at 12:22; Start 11/28/17 at 14:15; Stop 12/05/17 at 16:07; Status DC Propofol 50 ml @ As Directed STK-MED ONCE .ROUTE Last administered on at 14:08; Start 11/28/17 at 14:08; Stop 11/28/17 at 14:09; Status DC Albuterol/ Ipratropium (Duoneb Neb) 1 ampule Q6HR NEB NEB Last administered on 12/03/17at 08:56; Start 11/29/17 at 10:00; Stop 12/03/17 at 09:59; Status DC Furosemide (Lasix Inj) 40 mg BID@,18 IV PUSH Last administered on 12/01/17at 18:08; Start 11/29/17 at 09:00; Stop 12/02/17 at 07:00; Status DC Albumin Human 100 ml @ 60 mls/hr Q12H IV Last administered on 12/01/17at 19:49 ; Start 11/29/17 at 08:30; Stop 12/02/17 at 07:00; Status DC Piperacillin Sod/ Tazobactam Sod 100 ml @ 200 mls/hr Q6H IV Last administered on 12/01/17at 05:52; Start 11/30/17 at 00:15; Stop 12/01/17 at 11:49; Status DC Pharmacy Profile Note 0 ml @ 0 mls/hr UNSCH OTHER ; Start 11/30/17 at 08:30 Vancomycin HCl 1250 mg/Sodium Chloride 262.5 ml @ 250 mls/hr ONCE ONCE IV ; Start 11/30/17 at 08:30; Stop 11/30/17 at 10:11; Status DC Metolazone (Zaroxolyn) 5 mg ONCE ONCE PO Last administered on 11/30/17at 10:32 ; Start 11/30/17 at 10:05; Stop 11/30/17 at 10:06; Status DC Vancomycin HCl 1500 mg/Sodium Chloride 515 ml @ 257.5 mls/ hr ONCE ONCE IV Last administered on 11/30/17at 12:53; Start 11/30/17 at 12:00; Stop 11/30/17 at 13:59; Status DC Sodium Chloride 250 ml @ 15 mls/hr ONCE ONCE IV Last administered on at 13:15; Start 11/30/17 at 13:15; Stop 12/01/17 at 05:54; Status DC Collagenase (Santyl Oint) 1 applic DAILY TOPICAL Last administered on 12/09/17at 08:54; Start 12/01/17 at 09:00 Diatrizoate Meglum/ Diatrizoate Sod ( Gastroview Liq) 18 ml ONCE ONCE PO Last administered on 12/01/17at 10:32; Start 12/01/17 at 09:45; Stop 12/01/17 at 09:46; Status DC Miscellaneous Medication (ASP Crit: Doc ESBL, MDR A baumannii or P aer) 1 UNSCH X1 PRN .XX PHARMACY DOCUMENTATION; Start 12/01/17 at 12:00; Stop 12/02/17 at 11 :59; Status DC Miscellaneous Medication ([facility] Pharmacy Information) 1 UNSCH X1 PRN XX PHARMACY DOCUMENTATION; Start 12/01/17 at 12:00; Stop 12/02/17 at 11:59; Status DC Ertapenem 500 mg/ Sodium Chloride 100 ml @ 200 mls/hr Q24H IV ; Start 12/01/17 at 13:00; Stop 12/01/17 at 13:00; Status DC Ertapenem 500 mg/ Sodium Chloride 100 ml @ 200 mls/hr Q24H IV Last administered on 12/05/17at 12:21; Start 12/01/17 at 13:00; Stop 12/06/17 at 10:46 ; Status DC Potassium Chloride 100 ml @ 50 mls/hr BOLUS ONCE IV Last administered on 12/02at 12:42; Start 12/02/17 at 12:00; Stop 12/02/17 at 13:59; Status DC Vancomycin HCl 1500 mg/Sodium Chloride 515 ml @ 257.5 mls/ hr ONCE ONCE IV Last administered on 12/03/17at 15:08; Start 12/03/17 at 13:00; Stop 12/03/17 at 14:59; Status DC Aspirin (Aspirin Chew) 81 mg DAILY CHEW Last administered on 12/09/17at 08:53; Start 12/04/17 at 09:00 Miscellaneous Information ([facility] Nursing Information) D/C ICU ELECTROLYTE ORDERS... UNSCH PRN .XX SEE DOSE INSTRUCTIONS; Start 12/04/17 at 07:00 Miscellaneous Information ([facility] Nursing Information) ICU - CALL ORDERING PHYSIC... UNSCH PRN .XX SEE DOSE INSTRUCTIONS; Start 12/04/17 at 07:00 Potassium Chloride 100 ml @ 25 mls/hr UNSCH PRN IV ELECTROLYTE REPLACEMENT; Start 12/04/17 at 07:00 Potassium Bicarb/ Potassium Chloride (K-Lyte Cl Eff) 50 meq UNSCH PRN PO ELECTROLYTE REPLACEMENT Last administered on 12/04/17at 10:09; Start 12/04/17 at 07:00 Potassium Chloride 100 ml @ 50 mls/hr UNSCH PRN IV ELECTROLYTE REPLACEMENT; Start 12/04/17 at 07:00 Magnesium Sulfate 4 gm/Sodium Chloride 108 ml @ 54 mls/hr UNSCH PRN IV ELECTROLYTE REPLACEMENT; Start 12/04/17 at 07:00 Magnesium Sulfate 2 gm/Sodium Chloride 104 ml @ 52 mls/hr UNSCH PRN IV ELECTROLYTE REPLACEMENT; Start 12/04/17 at 07:00 Magnesium Oxide (Mag-Ox) 800 mg UNSCH PRN PO ELECTROLYTE REPLACEMENT; Start at 07:00 Sodium Phosphate 30 mmol/Sodium Chloride 260 ml @ 43.333 mls/ hr UNSCH PRN IV ELECTROLYTE REPLACEMENT; Start 12/04/17 at 07:00 Potassium Phosphate (K-Phos) 2,000 mg UNSCH PRN PO ELECTROLYTE REPLACEMENT; Start 12/04/17 at 07:00 Potassium Phosphate 30 mmol/ Sodium Chloride 260 ml @ 43.333 mls/ hr UNSCH PRN IV ELECTROLYTE REPLACEMENT; Start 12/04/17 at 07:00 Dexmedetomidine HCl 200 mcg/ Sodium Chloride 52 ml @ 4.39 mls/hr TITRATE PRN IV SEDATION Last administered on 12/05/17at 17:06; Start 12/04/17 at 09:15; Stop 12/05/17 at 18:24; Status DC Labetalol HCl (Trandate Inj) 10 mg Q4H PRN IV PUSH SYS BP GREATER THAN 160 MMHG Last administered on 12/09/17at 04:42; Start 12/04/17 at 16:30 Hydralazine HCl (Apresoline Inj) 20 mg Q4H PRN IV PUSH SBP>160, DBP>90 Last administered on 12/08/17at 03:32; Start 12/04/17 at 16:30 Vancomycin HCl 1500 mg/Sodium Chloride 515 ml @ 257.5 mls/ hr ONCE ONCE IV Last administered on 12/05/17at 13:42; Start 12/05/17 at 13:00; Stop 12/05/17 at 14:59; Status DC Insulin Aspart (NovoLOG SUPPLEMENTAL SCALE) 1 ACHS SLIDING SCALE SQ ; Start at 17:00; Stop 12/05/17 at 17:00; Status DC Gadodiamide (Omniscan Pf Inj) 18 ml STK-MED ONCE IVCONTRAST Last administered on 12/05/17at 16:51; Start 12/05/17 at 16:51; Stop 12/05/17 at 16:52; Status DC Acetaminophen/ Hydrocodone Bitart (Hobart 5-325 Mg) 1 tab Q6H PRN PO PAIN 8-10 ; Start 12/05/17 at 17:00; Stop 12/05/17 at 18:23; Status DC Insulin Aspart (NovoLOG SUPPLEMENTAL SCALE) 1 Q6H SQ Last administered on at 11:54; Start 12/05/17 at 18:00 Acetaminophen/ Hydrocodone Bitart (Hobart 5-325 Mg) 1 tab Q6H PRN PEG PAIN 8- 10 Last administered on 12/07/17at 07:40; Start 12/05/17 at 18:30 Dexmedetomidine HCl 1000 mcg/ Sodium Chloride 250 ml @ 4.22 mls/hr TITRATE PRN IV SEDATION Last administered on 12/08/17at 08:57; Start 12/05/17 at 18:30 Hydralazine HCl (Apresoline) 100 mg Q8H PO Last administered on 12/09/17at 02:00 ; Start 12/06/17 at 02:00 Miscellaneous Medication (ASP Crit: Doc ESBL, MDR A baumannii or P aer) 1 UNSCH X1 PRN .XX PHARMACY DOCUMENTATION; Start 12/06/17 at 10:00; Stop 12/07/17 at 09: 59; Status DC Miscellaneous Medication ([facility] Pharmacy Information) 1 UNSCH X1 PRN XX PHARMACY DOCUMENTATION; Start 12/06/17 at 10:00; Stop 12/07/17 at 09:59; Status DC Meropenem 1000 mg/ Sodium Chloride 100 ml @ 200 mls/hr Q8H IV Last administered on 12/09/17at 04:41; Start 12/06/17 at 12:00 Levofloxacin (Levaquin) 750 mg DAILY PO Last administered on 12/09/17at 08:54; Start 12/06/17 at 11:00 Vancomycin HCl 1500 mg/Sodium Chloride 515 ml @ 257.5 mls/ hr ONCE ONCE IV Last administered on 12/07/17at 14:03; Start 12/07/17 at 13:00; Stop 12/07/17 at 14: 59; Status DC Insulin Detemir (Levemir Inj) 5 units Q12HR SQ Last administered on 12/09/17at 08 :54; Start 12/07/17 at 21:00 Metoprolol Tartrate (Lopressor Inj) 5 mg STK-MED ONCE .ROUTE Last administered on 12/09/17at 08:30; Start 12/09/17 at 08:23; Stop 12/09/17 at 08:24; Status DC Vancomycin HCl 1500 mg/Sodium Chloride 515 ml @ 257.5 mls/ hr ONCE ONCE IV ; Start 6/3/18 at 14:00; Stop 12/09/17 at 15:59 A/P Assessment and Plan Plan by systems: Neurologic: Acute metabolic encephalopathy History of prior CVA MRI-old frontoparietal encephalomalacia, no acute findings EEG-generalized slowing without seizures Frequent neurochecks Propofol for goal RASS -2, Avoid long-acting sedatives. daily sedation vacation Tox screen, UDS positive only for benzodiazepines B12 normal GCS 11T Respiratory: Acute hypoxic and hypercarbic respiratory failure Moderate pulmonary edema Vent bundle, Head of bed elevated Nebs every 6 hours scheduled and as needed Continue CPAP trials-now averaging > 24 hours a day. SBT- NIF -25, RR 31, TV 410, cuff leak. Unable to obtain FVC- Planned extubation Wean FiO2 for goal SPO2 greater than 90% TENUOUS BREATHING ADD LASIX CHEST XRAY Cardiovascular: Acute severe congestive heart failure exacerbation, unknown type Mildly Elevated troponin Lasix 80 mg IV 1 given 11/29, now scheduled Lasix 40 every 12 with IV albumin 12/01 2D echo -EF 60-65%, trace TR, mild LAE, mild MVR, No RWMA Patient has severe anemia with a hemoglobin of 5.9 , status post transfusion 2 units of packed cells, continue to monitor 12/02 ASA resumed Renal: Acute kidney injury superimposed on chronic renal insufficiency with an unknown baseline Likely secondary to venous congestion from CHF Continue Dudley Diuresis as above Renal ultrasound: no obstruction or hydro FENa on admission 3.7% (unknown if on chronic lasix) FEUrea on admission 47.3%- suggestive of intrinsic renal disease. urine eosinophils negative -Nephrology following FEN/GI: Acute intravascular volume overload Diuresis as above Tube feeds with Nepro, minimal residual 12/01 CT of the abdomen and pelvis- Bibasilar consolidating lung infiltrate. Hepatosplenomegaly Calcified adrenal glands. Trace ascites. PEG tube and Dudley catheter in place. Inguinal lymphadenopathy. Calcific arthropathy of the left hip. No acute intestinal abnormality hydronephrosis or suspicious abdominopelvic masses. Heme/ID: Severe anemia, likely secondary to chronic disease s/p 2 unit PRBCs on 11/28 Holding anticoagulation until etiology is determined Iron studies: low iron, low TIBC, high ferritin. suggests chronic disease as a cause. Daily CBC Pro calcitonin 1.4 intermediate risk. blood cultures 11/28 GPCs in 2/ bottles sputum culture 11/28 GNR- ESBL 11/25 ID following Hemoccult negative CT of the abdomen and pelvis Endocrine: Hyperglycemia of critical illness Diabetes Glucose monitoring per ICU protocol, high dose regimen 12/07 Levemir 5 units twice daily added -- SSI Prophylaxis: GI Prophylaxis IV PPI- BID DVT Prophylaxis -- SCDs Heparin SQ reinitiated 12/04 Lines: Peripheral IVs Dudley Discharge Planning PENDING IMPROVEMENT Candido Beltran DO Dec 09, 2017 10:10
[2017-12-09] MEDS ORDERED: FUROSEMIDE 40 MG/4 ML VIAL IV PUSH ONE (10:30)
--- NOTE | 2017-12-09 10:58 | RADRPT ---
EXAM DATE: 12/09/2017 10:41 AM EDT AGE/SEX: 47 years / Male INDICATIONS: Dyspnea CLINICAL DATA: This is the patient's subsequent encounter. Patient reports that signs and symptoms h ave been present for 1 week and indicates a pain score of Nonresponsive. MEDICAL/SURGICAL HISTORY: . Diabetes mellitus type II. Hypertension. Stroke. . CABG COMPARISON: [facility] [place], CHEST SINGLE AP, 12/08/2017. . FINDINGS: AP portable view of the chest demonstrates interval extubation. Progressive airspace consolidation in volving the inferior left hemithorax. There is no significant airspace abnormality identified within the right hemithorax. Multiple median sternotomy wires with the most proximal wire discontinuous, sta ble. CONCLUSION: The patient is status post extubation with worsening atelectasis/consolidation within the left lower lobe and lingula. Electronically signed by: Maria Elena Hernandez MD 12/09/2017 10:57 AM EDT
--- NOTE | 2017-12-09 11:19 | HHI.IDPN ---
Subjective Subjective Remarks ID [id number] for Patient is a 47-year-old male, who is a resident [facility] the [facility], with history of CVA, brought into the hospital for decreased level of consciousness, decreased oxygen saturation. In the ED he was noted to have some pink frothy sputum. He was emergently intubated. His chest x-ray showed bilateral pulmonary infiltrates consistent with pulmonary edema. 2 blood cultures were done in the emergency room, and they are both growing staph hominis. Sputum culture also is now reported as growing Klebsiella ESBL positive. His chest x- ray has shown some worsening of his infiltrates. He was also found to have acute kidney injury. Patient is being managed for pulmonary edema, as well as sepsis. He has been getting vancomycin as well as Zosyn. He was initially febrile on his first hospital day, but that has improved. Patient's white count has been normal. Patient remains on the respirator. He has good urine output, but his creatinine remains elevated. There is no evidence of obstruction on his renal ultrasound. CT of the abdomen and pelvis are showing chronic changes of encephalomalacia compatible with his prior history of CVA. Infectious disease consultation has been requested to evaluate the patient. Notes reviewed Temps better On 6L NC sating at Sputum with GNR BC negative No central line HAs triplett cath Has a lot of ET secretions, beige brownish color Last CXR worsening infiltrates MRI L foot with osteo Antibiotics Meropenem Vancomycin Current Medications Medications (Trade) Dose Ordered Sig/Arthur Route Start Time Stop Time Status Last Admin (Brethine Inj) 1 mg UNSCH PRN SQ 11/28/17 05:30 (NS Flush) 2 ml UNSCH PRN IV FLUSH 11/28/17 05:45 12/05/17 08:07 (NS Flush) 2 ml BID IV FLUSH 11/28/17 09:00 12/07/17 07:41 (Tylenol) 650 mg Q6H PRN PO 11/28/17 05:45 12/06/17 08:41 (Tears Naturale Opth Soln) 1 drop TID EACH EYE 11/28/17 09:00 12/07/17 10:57 (Zofran Inj) 4 mg Q6H PRN IV PUSH 11/28/17 05:45 (Duoneb Neb) 1 ampule Q2HR NEB PRN INH 11/28/17 05:45 12/05/17 16:27 ([facility] Nursing Information) 1 Q361D XX 11/28/17 05:45 (Chlorhexidine 2% Cloth) Taper DAILY@04 TOP 11/29/17 04:00 11/25/18 03:59 12/03/17 04:00 (Chlorhexidine 2% Cloth) 3 pack UNSCH PRN TOP 11/28/17 05:45 (Jessie-Colace) 1 tab BID PO 11/28/17 09:00 12/07/17 07:41 (Milk Of Magnesia Liq) 30 ml Q12H PRN PO 11/28/17 05:45 (Senokot) 17.2 mg Q12H PRN PO 11/28/17 05:45 (Dulcolax Supp) 10 mg DAILY PRN RECTAL 11/28/17 05:45 (Lactulose Liq) 30 ml DAILY PRN PO 11/28/17 05:45 12/01/17 11:49 (D50w (Vial) Inj) 25 ml UNSCH PRN IV PUSH 11/28/17 06:15 (Protonix Inj) 40 mg Q12H IV PUSH 11/28/17 12:00 12/07/17 10:57 Pharmacy Profile Note 0 ml @ 0 mls/hr UNSCH OTHER 11/30/17 08:30 (Santyl Oint) 1 applic DAILY TOPICAL 12/01/17 09:00 12/07/17 07:41 (Aspirin Chew) 81 mg DAILY CHEW 12/04/17 09:00 12/07/17 07:40 ([facility] Nursing Information) D/C ICU ELECTROLYTE ORDERS... UNSCH PRN .XX 12/04/17 07:00 ([facility] Nursing Information) ICU - CALL ORDERING PHYSIC... UNSCH PRN .XX 12/04/17 07:00 Potassium Chloride 100 ml @ 25 mls/hr UNSCH PRN IV 12/04/17 07:00 (K-Lyte Cl Eff) 50 meq UNSCH PRN PO 12/04/17 07:00 12/04/17 10:09 Potassium Chloride 100 ml @ 50 mls/hr UNSCH PRN IV 12/04/17 07:00 Magnesium Sulfate 4 gm/Sodium Chloride 108 ml @ 54 mls/hr UNSCH PRN IV 12/04/17 07:00 Magnesium Sulfate 2 gm/Sodium Chloride 104 ml @ 52 mls/hr UNSCH PRN IV 12/04/17 07:00 (Mag-Ox) 800 mg UNSCH PRN PO 12/04/17 07:00 Sodium Phosphate 30 mmol/Sodium Chloride 260 ml @ 43.333 mls/ hr UNSCH PRN IV 12/04/17 07:00 (K-Phos) 2,000 mg UNSCH PRN PO 12/04/17 07:00 Potassium Phosphate 30 mmol/ Sodium Chloride 260 ml @ 43.333 mls/ hr UNSCH PRN IV 12/04/17 07:00 (Trandate Inj) 10 mg Q4H PRN IV PUSH 12/04/17 16:30 12/07/17 10:58 (Apresoline Inj) 20 mg Q4H PRN IV PUSH 12/04/17 16:30 (NovoLOG SUPPLEMENTAL SCALE) 1 Q6H SQ 12/05/17 18:00 12/07/17 11:02 ([place] 5-325 Mg) 1 tab Q6H PRN PEG 12/05/17 18:30 12/07/17 07:40 Dexmedetomidine HCl 1000 mcg/ Sodium Chloride 250 ml @ 4.22 mls/hr TITRATE PRN IV 12/05/17 18:30 12/07/17 11:00 (Apresoline) 100 mg Q8H PO 12/06/17 02:00 12/07/17 10:57 Meropenem 1000 mg/ Sodium Chloride 100 ml @ 200 mls/hr Q8H IV 12/06/17 12:00 12/07/17 10:59 (Levaquin) 750 mg DAILY PO 12/06/17 11:00 12/07/17 07:39 (Levemir Inj) 5 units Q12HR SQ 12/07/17 21:00 UNV Lines Chest X-Ray 12/06/17 0600 Signed Impressions: CONCLUSION: Possible slight worsening of pulmonary edema since the prior exam. Chest X-Ray 12/05/17 0600 Signed Impressions: CONCLUSION: No appreciable change. Foot MRI 12/05/17 0000 Signed Impressions: CONCLUSION: 1. Probable artifact involving the distal portion of the fifth metatarsal on t he T2 sequence could be further characterized with bone scan based on clinical grounds. Otherwise unremarkable. Foot MRI 5/30/18 0000 Signed Impressions: CONCLUSION: 1. Marked enhancement in the subcutaneous tissues in the lateral aspect of the foot. Abnormal areas of bone marrow edema in the fifth metatarsal shaft concer khanh for residual osteomyelitis. There is also edema in the fourth metatarsal h ead concerning for an additional area of osteomyelitis Chest X-Ray 12/04/17599 Signed Impressions: CONCLUSION: Moderate pulmonary edema is suspected, however there is slight overall improvem ent in aeration of the left lung is the prior exam. Last Impressions Chest X-Ray 12/02/17599 Signed Impressions: CONCLUSION: No significant change. Left greater than right parenchymal consolidation and sm all left pleural effusion again noted. Abdomen/Pelvis CT 12/01/17 Signed Impressions: CONCLUSION: 1. Bibasilar consolidating lung infiltrate 2. Hepatosplenomegaly 3. Calcified adrenal glands. 4. Trace ascites. 5. PEG tube and Triplett catheter in place. 6. Inguinal lymphadenopathy. 7. Calcific arthropathy of the left hip. 8. No acute intestinal abnormality hydronephrosis or suspicious abdominopelvic masses. Renal Ultrasound 11/28/17 Signed Impressions: CONCLUSION: 1. Echogenic kidneys consistent with medical renal disease. 2. No obstructive uropathy. Head CT 11/28/17 Signed Impressions: CONCLUSION: 1. No acute hemorrhage or mass effect. 2. Large area of encephalomalacia involving the right frontal and parietal lob e. 3. Chronic sinusitis. Brain MRI 11/28/17 Signed Impressions: CONCLUSION: 1. Large area of encephalomalacia in the right medial frontal parietal high co nvexities extending to the vertex. 2. No evidence for acute abnormality. Specifically, no acute infarction, hemor rhage or hydrocephalus. 3. Paranasal sinus mucosal disease. Past Medical History GENERAL: sedated on the vent,NAD SKIN: Warm and dry. No generalized rash HEAD: Atraumatic. Normocephalic. No temporal wasting, or tenderness. EYES: Pale conjunctiva. No petechia or hemorrhage. Pupils equal, round and reactive to light. No scleral icterus. No injection or drainage. EARS, NOSE AND THROAT: Nose without bleeding or purulent nasal discharge. He is orally intubated. NECK: Trachea midline. Supple and not tender, no meningeal signs CARDIOVASCULAR: Regular rate and rhythm. Limited exam due to the diffuse rhonchi RESPIRATORY: Bilateral diffuse rhonchi ABDOMEN: Soft, mildly distended, no reaction to palpation, no guarding. Bowel sounds present and normoactive. EXTREMITIES: No clubbing, cyanosis. Has edema of both hands. No pedal edema. Dressings to both intact. Well perfused and warm. NEUROLOGICAL: Sedated on the vent. PSYCHIATRIC: Unable to assess. LINE: No evidence of infection : Triplett catheter in place, urine looks clear Allergies: Coded Allergies: No Known Allergies (Verified Allergy, Severe, 11/03/06) Objective . Vital Signs Date Time Temp Pulse Resp B/P (MAP) Pulse Ox O2 Delivery O2 Flow Rate FiO2 12/09/17 08:40 96 Venturi Mask 6.00 50 12/09/17 07:40 94 Nasal Cannula 6.00 12/09/17 06:00 144 12/09/17 04:00 100.3 134 34 157/81 (106) 86 12/09/17 04:00 134 12/09/17 02:00 128 12/09/17 00:00 117 12/09/17 00:00 101.6 117 34 131/68 (89) 99 12/08/17 22:00 109 12/08/17 20:02 93 Nasal Cannula 2.00 12/08/17 20:00 99.9 110 31 120/67 (84) 68 12/08/17 20:00 110 12/08/17 18:00 117 12/08/17 16:12 100 Nasal Cannula 3.00 12/08/17 16:12 100 Nasal Cannula 3 12/08/17 16:00 98.9 94 8 111/61 (78) 98 12/08/17 16:00 30 12/08/17 16:00 94 12/08/17 14:00 89 12/08/17 12:08 100 30 12/08/17 12:00 88 12/08/17 12:00 98.9 88 12 159/84 (109) 100 12/08/17 12:00 30 . Laboratory Tests Test 12/08/17 04:15 12/09/17 04:21 White Blood Count 8.7 TH/MM3 14.8 TH/MM3 Red Blood Count 2.73 MIL/MM3 3.34 MIL/MM3 Hemoglobin 8.2 GM/DL 9.8 GM/DL Hematocrit 24.4 % 30.7 % Mean Corpuscular Volume 89.4 FL 91.7 FL Mean Corpuscular Hemoglobin 30.0 PG 29.3 PG Mean Corpuscular Hemoglobin Concent 33.5 % 31.9 % Red Cell Distribution Width 13.8 % 14.1 % Platelet Count 310 TH/MM3 468 TH/MM3 Mean Platelet Volume 7.9 FL 8.5 FL Laboratory Tests Test 12/08/17 04:15 12/09/17 04:21 Blood Urea Nitrogen 48 MG/DL 51 MG/DL Creatinine 1.23 MG/DL 1.49 MG/DL Random Glucose 192 MG/DL 98 MG/DL Calcium Level 8.3 MG/DL 9.6 MG/DL Phosphorus Level 4.2 MG/DL 4.2 MG/DL Magnesium Level 2.2 MG/DL 2.2 MG/DL Sodium Level 148 MEQ/L 153 MEQ/L Potassium Level 4.3 MEQ/L 3.9 MEQ/L Chloride Level 119 MEQ/L 121 MEQ/L Carbon Dioxide Level 19.7 MEQ/L 17.5 MEQ/L Anion Gap 9 MEQ/L 15 MEQ/L Estimat Glomerular Filtration Rate 76 ML/MIN 61 ML/MIN Protein Corrected Calcium 8.8 MG/DL Ammonia 29 MCMOL/L Total Protein 7.4 GM/DL Microbiology Date/Time Source Procedure Growth Status 12/06/17 12:18 Blood Peripheral Aerobic Blood Culture - Preliminary NO GROWTH IN 3 DAYS Resulted 12/06/17 12:18 Blood Peripheral Anaerobic Blood Culture - Preliminary NO GROWTH IN 3 DAYS Resulted 12/06/17 12:05 Blood Peripheral Aerobic Blood Culture - Preliminary NO GROWTH IN 3 DAYS Resulted 12/06/17 12:05 Blood Peripheral Anaerobic Blood Culture - Preliminary NO GROWTH IN 3 DAYS Resulted Imaging Last Impressions Chest X-Ray 12/02/17 0600 Signed Impressions: CONCLUSION: No significant change. Left greater than right parenchymal consolidation and sm all left pleural effusion again noted. Abdomen/Pelvis CT 12/01/17 0000 Signed Impressions: CONCLUSION: 1. Bibasilar consolidating lung infiltrate 2. Hepatosplenomegaly 3. Calcified adrenal glands. 4. Trace ascites. 5. PEG tube and Triplett catheter in place. 6. Inguinal lymphadenopathy. 7. Calcific arthropathy of the left hip. 8. No acute intestinal abnormality hydronephrosis or suspicious abdominopelvic masses. Renal Ultrasound 11/28/17 0000 Signed Impressions: CONCLUSION: 1. Echogenic kidneys consistent with medical renal disease. 2. No obstructive uropathy. Head CT 11/28/17 0000 Signed Impressions: CONCLUSION: 1. No acute hemorrhage or mass effect. 2. Large area of encephalomalacia involving the right frontal and parietal lob e. 3. Chronic sinusitis. Brain MRI 11/28/17 0000 Signed Impressions: CONCLUSION: 1. Large area of encephalomalacia in the right medial frontal parietal high co nvexities extending to the vertex. 2. No evidence for acute abnormality. Specifically, no acute infarction, hemor rhage or hydrocephalus. 3. Paranasal sinus mucosal disease. Physical Exam GENERAL: sedated on the vent, not in respiratory distress. SKIN: Warm and dry. No generalized rash HEAD: Atraumatic. Normocephalic. No temporal wasting, or tenderness. EYES: Pale conjunctiva. No petechia or hemorrhage. Pupils equal, round and reactive to light. No scleral icterus. No injection or drainage. EARS, NOSE AND THROAT: Nose without bleeding or purulent nasal discharge. He is orally intubated. NECK: Trachea midline. Supple and not tender, no meningeal signs CARDIOVASCULAR: Regular rate and rhythm. Limited exam due to the diffuse rhonchi RESPIRATORY: Bilateral diffuse rhonchi ABDOMEN: Soft, mildly distended, no reaction to palpation, no guarding. Bowel sounds present and normoactive. EXTREMITIES: No clubbing, cyanosis. Has edema of both hands. No pedal edema. Has dressings to both feet, dry and intact. Well perfused and warm. NEUROLOGICAL: Sedated on the vent. PSYCHIATRIC: Unable to assess. 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 drug fever) Continue Meropenem for broader GNR coverage in light of new fever Continue Levaquin for additional GNR coverage Start Zyvox IV Start Diflucan at risk due to Broad spectrum antibiotic(BSA) exposure. repeat sputum cultures No CL Has a triplett. STAT blood cultures. Check UA for CAUTI. reviewed ABG: resp acidosis,hypoxia, CXR worse compared to days prior, fevers, tachy 125, BP ok. Critical care consult: to reevaluate resp status. Follow temps Monitor progress D/W RN DELIA CCM Critical thinking and decision making. Reviewed and compared imaging. delia HOPKINS, RN and RT. to resume care in am. Gale Genao MD Dec 09, 2017 11:19
[2017-12-09] MEDS: LINEZOLID 600 MG PREMIX 300 ML IV SCH ×2 (12:36→23:28)
[2017-12-09] MEDS: FLUCONAZOLE 200 MG PREMIX BAG 100 ML IV SCH (12:46)
[2017-12-09] MEDS ORDERED: VANCOMYCIN 1,500 MG/NS 500 ML IV ONE ×2 (14:00)
[2017-12-09] MEDS: METOPROLOL TARTRATE 5 MG/5 ML VIAL IV PUSH PRN ×2 (15:23→21:50)
[2017-12-09 16:41] LABS: BILIRUBIN, URINE NEG (NEG); BLOOD, URINE MOD (NEG); GLUCOSE,URINE NEG (NEG); HYALINE CAST, URINE 13 /lpf (RARE); KETONE, URINE NEG (NEG); MUCUS URINE FEW /lpf (OCC); NITRITE,URINE NEG (NEG); PH, URINE 5.5 (5.0-8.5); SQUAMOUS EPITHELIAL CELL URINE 2 /hpf (0-5); URINE COLOR YELLOW (YELLW/STRAW); URINE LEUKOCYTE ESTERASE NEG (NEG)
[2017-12-09] MEDS: FREE WATER PEG SCH ×2 (18:00→23:28)
[2017-12-10] VITALS (15 sets, daily range): BP systolic 105–144; BP diastolic 56–74; PULSE 108–137; RESP 27–35; TEMP 98.7–102.9; O2SAT 95–100
[2017-12-10] MEDS ORDERED: METOPROLOL TARTRATE 5 MG/5 ML VIAL IV PUSH ONE (01:00)
[2017-12-10] MEDS: hydrALAZINE HCL 100 MG TAB PO SCH ×3 (01:35→17:10)
[2017-12-10] MEDS: ACETAMINOPHEN 325 MG TAB PO PRN (03:29)
[2017-12-10] MEDS: MEROPENEM INJ 1,000 MG in SODIUM CHLORIDE 0.9% INJ 100 ML IV SCH ×3 (04:30→20:26)
[2017-12-10] MEDS: METOPROLOL TARTRATE 5 MG/5 ML VIAL IV PUSH PRN ×2 (04:30→21:40)
[2017-12-10] MEDS: FREE WATER PEG SCH ×4 (04:58→23:49)
[2017-12-10] MEDS: INSULIN ASPART SUPPLEMENTAL SCALE SQ SCH ×4 (05:35→23:42)
[2017-12-10 07:18] LABS: BASOPHIL % 0.3 % (0.0-2.0); EOSINOPHIL # 0.1 TH/MM3 (0-0.4); EOSINOPHIL % 0.6 % (0.0-4.0); HEMATOCRIT 25.2 % (39.0-51.0); HEMOGLOBIN 8.1 GM/DL (13.0-17.0); LYMPH % 8.5 % (9.0-44.0); LYMPHOCYTE # 1.1 TH/MM3 (1.0-4.8); MEAN CELL VOLUME 90.7 FL (80.0-100.0); MEAN CORPUSCULAR HEMOGLOBIN 29.3 PG (27.0-34.0); MEAN CORPUSCULAR HGB CONC 32.3 % (32.0-36.0); MONOCYTE # 0.6 TH/MM3 (0-0.9); NEUT % 85.6 % (16.0-70.0); PLATELET COUNT 360 TH/MM3 (150-450); RED BLOOD COUNT 2.77 MIL/MM3 (4.50-5.90); RED CELL DISTRIBUTION WIDTH 14.2 % (11.6-17.2); WHITE BLOOD COUNT 12.8 TH/MM3 (4.0-11.0)
[2017-12-10 07:53] LABS: ALBUMIN 2.4 GM/DL (3.4-5.0); AST (GOT) 40 U/L (15-37); BICARBONATE 18.1 MEQ/L (21.0-32.0); BLOOD UREA NITROGEN 47 MG/DL (7-18); CALCIUM 9.2 MG/DL (8.5-10.1); CHLORIDE 121 MEQ/L (98-107); CREATININE 1.65 MG/DL (0.60-1.30); GLOMERULAR FILTRATION RATE 54 ML/MIN (>89); GLUCOSE,RANDOM 107 MG/DL (74-106); MAGNESIUM 2.1 MG/DL (1.5-2.5); SODIUM (NA) 152 MEQ/L (136-145)
[2017-12-10 08:01] LABS: ALKALINE PHOSPHATASE 104 U/L (45-117); ALT (GPT) 37 U/L (12-78); FREE T4 1.37 NG/DL (0.76-1.46); PHOSPHORUS 3.9 MG/DL (2.5-4.9); TOTAL BILIRUBIN ADULT 0.6 MG/DL (0.2-1.0); TOTAL PROTEIN 7.9 GM/DL (6.4-8.2)
[2017-12-10] MEDS: INSULIN DETEMIR 100 UNITS/ML VIAL SQ SCH ×2 (08:01→20:27)
[2017-12-10] MEDS: FUROSEMIDE 40 MG/4 ML VIAL IV PUSH SCH (08:01)
[2017-12-10] MEDS: ASPIRIN 81 MG CHEW TAB CHEW SCH (08:02)
[2017-12-10] MEDS: ARTIFICIAL TEARS OPTH SOLN 15 ML BTL EACH EYE SCH ×3 (08:02→17:10)
[2017-12-10] MEDS: SODIUM CHLORIDE 0.9% FLUSH 10 ML FLUSH IV FLUSH SCH ×2 (08:02→20:26)
[2017-12-10] MEDS: DOCUSATE SODIUM 50 MG/SENNA 8.6 MG TAB PO SCH ×2 (08:02→20:25)
[2017-12-10] MEDS: COLLAGENASE OINT 30 GM TUBE TOPICAL SCH (08:03)
--- NOTE | 2017-12-10 10:13 | HHI.PR ---
Subjective Remarks This is a 47-year-old male with a history of prior stroke who [facility] for acute altered mental status. Per EMS reports, he was in his normal state of health last night and then with his reevaluated by the nursing staff and was a GCS of 3 with room air sats of 79%. Of note by the ED physician, the patient had pink frothy sputum on admission to the ER. He was emergently intubated by the emergency department. He has a chest x-ray which demonstrates bilateral infiltrates consistent with pulmonary edema. He has a BNP which is severely elevated at 1300. He has a elevated creatinine suggestive of acute kidney injury with an unknown baseline. Per report he has been treated for an MRSA skin infection. He is afebrile with a normal white count. Critical care medicine is consulted to evaluate manage his acute encephalopathy, multiorgan dysfunction. No additional information is available from the patient due to his severe encephalopathy. SUBJ 11/29: Remains intubated sedated with propofol for vent synchrony. According to RN he did follow commands upper extremities when sedation held. Chest exam reveals bilateral coarse rhonchi, crackles. CXR pending at this time 11/30: remains intubated. cxr with bilateral infiltrates again suggestive of volume overload. 12/01: T-max 100.6. Creatinine and change the patient continues to be positive with fluid, will follow up nephrology's recommendations regarding continued albumin and/Lasix therapy. Hemoglobin stable this a.m. at 7.9. Plan for CT of the abdomen and pelvis for possible source. Stool Hemoccult still pending. Consult ID , appreciate recommendations. Follow-up with podiatry concern for osteomyelitis. Plan for possible I&D bilateral foot ulcers today. 12/02: Late entry note patient seen at 12:45 PM. No acute events overnight. The patient underwent incision and debridement bilateral feet by podiatry today tolerated procedures well. Hemodynamically stable. Creatinine improving. The patient remains on CPAP greater than 8 hours. 12/03: No acute events overnight. The patient tolerated CPAP trials for approximately 8 hours hemodynamically stable. Tolerating tube feeds. 12/04: Tolerated CPAP trials approximately the 8 hours yesterday, on low-dose propofol. Plan to transition to Precedex to facilitate ventilator weaning. Noted chest x-ray slightly improved but pulmonary edema still persists. Patient tolerating tube feeds. 12/05: Late entry note. Patient seen at 7:20 AM. The patient tolerated CPAP trials for approximately 16 hours. Plan for MRI bilateral feet today. Patient has been transitioned to Precedex infusion. Patient noted to have continued elevated blood glucose levels patient transitioned to high dose sliding scale. 12/06: T-max 101.6. Antibiotics changed per ID. MRI showed osteomyelitis left fourth and fifth metatarsal. CPAP trials initiated today patient tolerated CPAP trials approximately 3 hours yesterday. 12/07: Afebrile. Patient continues on CPAP trials today greater than 8 hours on Precedex infusion to facilitate ventilator weaning. Patient's nodding head to yes and no questions following my command. Patient was noted last night he continued to have elevated glucose despite high dose sliding scale regimen, patient placed on Levemir twice daily. 12/08: Late entry note . Patient seen at 1337 . Afebrile. Patient remained on CPAP trials throughout the entire night, greater than 24 hours. Limited SBT obtained, parameters within normal limits. The patient was extubated. He continues on 4 L nasal cannula - TRANSFERRED TO OUR SERVICE TODAY STILL SHORT OF BREATH WILL GIVE LASIX GET A CHEST XRAY DW RN AND PT AM LABS 12-10 we will restart tube feeds DW RN AND PT NON-VERBAL ONLY ON NC OXYGEN AT THIS TIME MEDS ADJUSTED BY ID Objective Vitals Vital Signs Date Time Temp Pulse Resp B/P (MAP) Pulse Ox O2 Delivery O2 Flow Rate FiO2 12/10/17 10:00 126 12/10/17 09:45 98 Nasal Cannula 4.00 12/10/17 08:00 99.0 125 35 144/74 (97) 97 12/10/17 08:00 125 12/10/17 07:00 98 Nasal Cannula 6.00 12/10/17 06:00 117 12/10/17 04:00 132 12/10/17 04:00 102.9 132 27 105/59 (74) 95 12/10/17 02:00 125 12/10/17 00:00 137 12/10/17 00:00 100.7 137 30 136/69 (91) 97 12/09/17 22:00 132 12/09/17 21:15 98 Nasal Cannula 6.00 12/09/17 20:48 100 Non-Rebreather 12/09/17 20:00 118 12/09/17 20:00 100.6 118 30 124/71 (88) 99 12/09/17 19:00 100 Non-Rebreather 12/09/17 18:00 118 12/09/17 16:00 123 12/09/17 16:00 101.6 123 48 143/72 (95) 98 12/09/17 14:00 128 12/09/17 12:00 100.8 125 36 143/73 (96) 99 12/09/17 12:00 125 I/O 12/09/17 12/09/17 12/09/17 12/10/17 12/10/17 12/10/17 07:00 15:00 23:00 07:00 15:00 23:00 Intake Total 500 ml 560 ml 850 ml Output Total 800 ml 1375 ml 475 ml Balance -800 ml 500 ml -815 ml 375 ml Intake IV Total 500 ml 100 ml 400 ml Tube Feeding 60 ml Other 400 ml 450 ml Output Urine Total 800 ml 1375 ml 475 ml # Bowel Movements 1 1 1 Result Diagram: 12/10/17 0506 12/10/17 0506 Other Results Laboratory Tests Test 12/08/17 04:15 12/09/17 04:21 12/09/17 08:32 12/09/17 15:13 White Blood Count 8.7 TH/MM3 14.8 TH/MM3 Red Blood Count 2.73 MIL/MM3 3.34 MIL/MM3 Hemoglobin 8.2 GM/DL 9.8 GM/DL Hematocrit 24.4 % 30.7 % Mean Corpuscular Volume 89.4 FL 91.7 FL Mean Corpuscular Hemoglobin 30.0 PG 29.3 PG Mean Corpuscular Hemoglobin Concent 33.5 % 31.9 % Red Cell Distribution Width 13.8 % 14.1 % Platelet Count 310 TH/MM3 468 TH/MM3 Mean Platelet Volume 7.9 FL 8.5 FL Blood Urea Nitrogen 48 MG/DL 51 MG/DL Creatinine 1.23 MG/DL 1.49 MG/DL Random Glucose 192 MG/DL 98 MG/DL Calcium Level 8.3 MG/DL 9.6 MG/DL Phosphorus Level 4.2 MG/DL 4.2 MG/DL Magnesium Level 2.2 MG/DL 2.2 MG/DL Sodium Level 148 MEQ/L 153 MEQ/L Potassium Level 4.3 MEQ/L 3.9 MEQ/L Chloride Level 119 MEQ/L 121 MEQ/L Carbon Dioxide Level 19.7 MEQ/L 17.5 MEQ/L Anion Gap 9 MEQ/L 15 MEQ/L Estimat Glomerular Filtration Rate 76 ML/MIN 61 ML/MIN Protein Corrected Calcium 8.8 MG/DL Ammonia 29 MCMOL/L Total Protein 7.4 GM/DL Random Vancomycin Level 14.3 COMMENT Blood Gas Puncture Site RT RADIAL Blood Gas Patient Temperature 98.6 Blood Gas HCO3 19 mmol/L Blood Gas Base Excess -4.9 mmol/L Blood Gas Oxygen Saturation 88 % Arterial Blood pH 7.37 Arterial Blood Partial Pressure CO2 34 mmHg Arterial Blood Partial Pressure O2 62 mmHg Arterial Blood Oxygen Content 14.4 Vol % Arterial Blood Carboxyhemoglobin 0.9 % Arterial Blood Methemoglobin 1.3 % Blood Gas Hemoglobin 11.6 G/DL Oxygen Delivery Device NASAL CANNULA Blood Gas Liter Flow 6 L/M Lactic Acid Level 1.2 mmol/L Test 12/09/17 16:00 12/10/17 05:06 Urine Color YELLOW Urine Turbidity HAZY Urine pH 5.5 Urine Specific [place] 1.016 Urine Protein 100 mg/dL Urine Glucose (UA) NEG mg/dL Urine Ketones NEG mg/dL Urine Occult Blood MOD Urine Nitrite NEG Urine Bilirubin NEG Urine Urobilinogen LESS THAN 2.0 MG/DL Urine Leukocyte Esterase NEG Urine RBC /hpf Urine WBC 7 /hpf Urine Squamous Epithelial Cells 2 /hpf Urine Hyaline Casts 13 /lpf Urine Mucus FEW /lpf Microscopic Urinalysis Comment CULTURE INDICATED White Blood Count 12.8 TH/MM3 Red Blood Count 2.77 MIL/MM3 Hemoglobin 8.1 GM/DL Hematocrit 25.2 % Mean Corpuscular Volume 90.7 FL Mean Corpuscular Hemoglobin 29.3 PG Mean Corpuscular Hemoglobin Concent 32.3 % Red Cell Distribution Width 14.2 % Platelet Count 360 TH/MM3 Mean Platelet Volume 9.0 FL Neutrophils (%) (Auto) 85.6 % Lymphocytes (%) (Auto) 8.5 % Monocytes (%) (Auto) 5.0 % Eosinophils (%) (Auto) 0.6 % Basophils (%) (Auto) 0.3 % Neutrophils # (Auto) 11.0 TH/MM3 Lymphocytes # (Auto) 1.1 TH/MM3 Monocytes # (Auto) 0.6 TH/MM3 Eosinophils # (Auto) 0.1 TH/MM3 Basophils # (Auto) 0.0 TH/MM3 CBC Comment DIFF FINAL Differential Comment Blood Urea Nitrogen 47 MG/DL Creatinine 1.65 MG/DL Random Glucose 107 MG/DL Total Protein 7.9 GM/DL Albumin 2.4 GM/DL Calcium Level 9.2 MG/DL Phosphorus Level 3.9 MG/DL Magnesium Level 2.1 MG/DL Alkaline Phosphatase 104 U/L Aspartate Amino Transf (AST/SGOT) 40 U/L Alanine Aminotransferase (ALT/SGPT) 37 U/L Total Bilirubin 0.6 MG/DL Sodium Level 152 MEQ/L Potassium Level 3.8 MEQ/L Chloride Level 121 MEQ/L Carbon Dioxide Level 18.1 MEQ/L Anion Gap 13 MEQ/L Estimat Glomerular Filtration Rate 54 ML/MIN Free Thyroxine 1.37 NG/DL Thyroid Stimulating Hormone 3rd Gen 2.110 uIU/ML Imaging Last Impressions Chest X-Ray 12/09/17 Signed Impressions: CONCLUSION: The patient is status post extubation with worsening atelectasis/consolidation within the left lower lobe and lingula. Foot MRI 12/05/17 Signed Impressions: CONCLUSION: 1. Probable artifact involving the distal portion of the fifth metatarsal on t he T2 sequence could be further characterized with bone scan based on clinical grounds. Otherwise unremarkable. Foot X-Ray 12/02/17 Signed Impressions: CONCLUSION: 1. Very limited study. 2. No gross acute abnormality. Abdomen/Pelvis CT 12/01/17 Signed Impressions: CONCLUSION: 1. Bibasilar consolidating lung infiltrate 2. Hepatosplenomegaly 3. Calcified adrenal glands. 4. Trace ascites. 5. PEG tube and Dudley catheter in place. 6. Inguinal lymphadenopathy. 7. Calcific arthropathy of the left hip. 8. No acute intestinal abnormality hydronephrosis or suspicious abdominopelvic masses. Renal Ultrasound 11/28/17 Signed Impressions: CONCLUSION: 1. Echogenic kidneys consistent with medical renal disease. 2. No obstructive uropathy. Head CT 11/28/17 Signed Impressions: CONCLUSION: 1. No acute hemorrhage or mass effect. 2. Large area of encephalomalacia involving the right frontal and parietal lob e. 3. Chronic sinusitis. Brain MRI 11/28/17 Signed Impressions: CONCLUSION: 1. Large area of encephalomalacia in the right medial frontal parietal high co nvexities extending to the vertex. 2. No evidence for acute abnormality. Specifically, no acute infarction, hemor rhage or hydrocephalus. 3. Paranasal sinus mucosal disease. Objective Remarks GENERAL: AWAKE AND ALERT NOT ORIENTED CONFUSED SKIN: Warm and dry. BL FEET DRESSED HEAD: Atraumatic. Normocephalic. EYES: Pupils equal and round. No scleral icterus. No injection or drainage. EOMI ENT: No nasal bleeding or discharge. Mucous membranes pink and moist. NECK: Trachea midline. No JVD. SUPPLE CARDIOVASCULAR: IRRegular rate and rhythm. S1, S2 NO S3 OR S4 RESPIRATORY: No accessory muscle use. Breath sounds equal bilaterally. COARSE BREATH SOUNDS AND RHONCHI BL GASTROINTESTINAL: Abdomen soft, non-tender, nondistended. Hepatic and splenic margins not palpable. MUSCULOSKELETAL: Extremities without clubbing, cyanosis, or edema. No obvious deformities. BL FEET DRESSED NEUROLOGICAL: Awake and alert. No obvious cranial nerve deficits. Motor grossly within normal limits. 4 out of 5 muscle strength in the arms and legs. ABNormal speech. PSYCHIATRIC: INAppropriate mood and affect; insight and judgment ABnormal. Procedures INTUBATION AND VENT Medications and IVs Current Medications Sodium Chloride (NS Flush) 2 ml UNSCH PRN IVF FLUSH AFTER USING IV ACCESS; Start 11/28/17 at 05:15; Stop 11/28/17 at 06:13; Status DC Furosemide (Lasix Inj) 40 mg ONCE ONCE IVP Last administered on 11/28/17at 05: 45; Start 11/28/17 at 05:15; Stop 11/28/17 at 05:16; Status DC Norepinephrine Bitartrate 4 mg/ Sodium Chloride 250 ml @ 7.5 mls/hr TITRATE PRN IV Blood pressure management Last administered on 11/28/17at 07:48; Start at 05:30; Stop 11/29/17 at 08:18; Status DC Terbutaline Sulfate (Brethine Inj) 1 mg UNSCH PRN SQ For Extravasation; Start 11/28/17 at 05:30 Cefepime HCl 2000 mg/Sodium Chloride 100 ml @ 200 mls/hr ONCE STAT IV Last administered on 11/28/17at 05:45; Start 11/28/17 at 05:23; Stop 11/28/17 at 05:52 ; Status DC Azithromycin 500 mg/Sodium Chloride 250 ml @ 250 mls/hr ONCE STAT IV Last administered on 11/28/17 05:45; Start 11/28/17 at 05:23; Stop 11/28/17 at 06:26 ; Status DC Tobramycin Sulfate 630 mg/ Sodium Chloride 115.75 ml @ 100 mls/ hr ONCE STAT IV ; Start 11/28/17 at 05:23; Stop 11/28/17 at 06:32; Status DC Sodium Chloride 250 ml @ 15 mls/hr ONCE ONCE IV Last administered on at 10:02; Start 11/28/17 at 05:45; Stop 11/28/17 at 22:24; Status DC Sodium Chloride 1,000 ml @ 84 mls/hr [id number] IV ; Start 11/28/17 at 05:39; Stop 11/28/17 at 06:13; Status DC Sodium Chloride (NS Flush) 2 ml UNSCH PRN IV FLUSH FLUSH AFTER USING IV ACCESS Last administered on 12/05/17 08:07; Start 11/28/17 at 05:45 Sodium Chloride (NS Flush) 2 ml BID IV FLUSH Last administered on 12/10/17 08: 02; Start 11/28/17 at 09:00 Acetaminophen (Tylenol) 650 mg Q6H PRN PO PAIN 1-10 AND/OR FEVER >101F Last administered on 12/10/17 03:29; Start 11/28/17 at 05:45 Famotidine (Pepcid Inj) 20 mg Q12HR IV PUSH Last administered on 11/28/17 08: 49; Start 11/28/17 at 09:00; Stop 11/28/17 at 09:19; Status DC Artificial Tears (Tears Naturale Opth Soln) 1 drop TID EACH EYE Last administered on 12/10/17 08:02; Start 11/28/17 at 09:00 Ondansetron HCl (Zofran Inj) 4 mg Q6H PRN IV PUSH NAUSEA OR VOMITING Last administered on 12/09/17 15:48; Start 11/28/17 at 05:45 Albuterol/ Ipratropium (Duoneb Neb) 1 ampule Q2HR NEB PRN INH WHEEZING Last administered on 12/09/17 20:47; Start 11/28/17 at 05:45 Miscellaneous Information ([facility]) 1 Q361D XX ; Start at 05:45 Chlorhexidine Gluconate (Chlorhexidine 2% Cloth) Taper DAILY@04 TOP Last administered on 12/03/17at 04:00; Start 11/29/17 at 04:00; Stop 11/25/18 at 03:59 Chlorhexidine Gluconate (Chlorhexidine 2% Cloth) 3 pack UNSCH PRN TOP HYGIENIC CARE; Start 11/28/17 at 05:45 Senna/Docusate Sodium (Jessie-Colace) 1 tab BID PO Last administered on 12/08/17at 08:58; Start 11/28/17 at 09:00 Magnesium Hydroxide (Milk Of Magnesia Liq) 30 ml Q12H PRN PO Mild constipation ; Start 11/28/17 at 05:45 Sennosides (Senokot) 17.2 mg Q12H PRN PO Moderate constipation; Start 11/28/17 at 05:45 Bisacodyl (Dulcolax Supp) 10 mg DAILY PRN RECTAL SEVERE CONSITIPATION; Start at 05:45 Lactulose (Lactulose Liq) 30 ml DAILY PRN PO SEVERE CONSITIPATION Last administered on 12/01/17at 11:49; Start 11/28/17 at 05:45 Furosemide (Lasix Inj) 80 mg STAT STAT IV PUSH Last administered on 11/28/17at 06:40; Start 11/28/17 at 06:10; Stop 11/28/17 at 06:12; Status DC Dextrose (D50w (Vial) Inj) 25 ml UNSCH PRN IV PUSH HYPOGLYCEMIA-SEE COMMENTS; Start 11/28/17 at 06:15 Insulin Human Regular (NovoLIN R SUPPLEMENTAL SCALE) 1 Q6HR SQ Last administered on 12/05/17at 12:21; Start 11/28/17 at 12:00; Stop 12/05/17 at 16:08 ; Status DC Chlorothiazide Sodium (Diuril Inj) 500 mg ONCE ONCE IV Last administered on at 09:47; Start 11/28/17 at 09:00; Stop 11/28/17 at 09:01; Status DC Famotidine (Pepcid Inj) 10 mg Q12HR IV PUSH ; Start 11/28/17 at 21:00; Stop at 21:00; Status DC Pantoprazole Sodium (Protonix Inj) 40 mg Q12H IV PUSH Last administered on at 23:28; Start 11/28/17 at 12:00 Propofol 100 ml @ 2.7 mls/hr TITRATE PRN IV SEDATION Last administered on 12/05at 12:22; Start 11/28/17 at 14:15; Stop 12/05/17 at 16:07; Status DC Propofol 50 ml @ As Directed STK-MED ONCE .ROUTE Last administered on at 14:08; Start 11/28/17 at 14:08; Stop 11/28/17 at 14:09; Status DC Albuterol/ Ipratropium (Duoneb Neb) 1 ampule Q6HR NEB NEB Last administered on 12/03/17at 08:56; Start 11/29/17 at 10:00; Stop 12/03/17 at 09:59; Status DC Furosemide (Lasix Inj) 40 mg BID@09,18 IV PUSH Last administered on 12/01/17at 18:08; Start 11/29/17 at 09:00; Stop 12/02/17 at 07:00; Status DC Albumin Human 100 ml @ 60 mls/hr Q12H IV Last administered on 12/01/17at 19:49 ; Start 11/29/17 at 08:30; Stop 12/02/17 at 07:00; Status DC Piperacillin Sod/ Tazobactam Sod 100 ml @ 200 mls/hr Q6H IV Last administered on 12/01/17at 05:52; Start 11/30/17 at 00:15; Stop 12/01/17 at 11:49; Status DC Pharmacy Profile Note 0 ml @ 0 mls/hr UNSCH OTHER ; Start 11/30/17 at 08:30; Stop 12/09/17 at 11:20; Status DC Vancomycin HCl 1250 mg/Sodium Chloride 262.5 ml @ 250 mls/hr ONCE ONCE IV ; Start 11/30/17 at 08:30; Stop 11/30/17 at 10:11; Status DC Metolazone (Zaroxolyn) 5 mg ONCE ONCE PO Last administered on 11/30/17at 10:32 ; Start 11/30/17 at 10:05; Stop 11/30/17 at 10:06; Status DC Vancomycin HCl 1500 mg/Sodium Chloride 515 ml @ 257.5 mls/ hr ONCE ONCE IV Last administered on 11/30/17at 12:53; Start 11/30/17 at 12:00; Stop 11/30/17 at 13:59; Status DC Sodium Chloride 250 ml @ 15 mls/hr ONCE ONCE IV Last administered on at 13:15; Start 11/30/17 at 13:15; Stop 12/01/17 at 05:54; Status DC Collagenase (Santyl Oint) 1 applic DAILY TOPICAL Last administered on 12/10/17at 08:03; Start 12/01/17 at 09:00 Diatrizoate Meglum/ Diatrizoate Sod ( Gastrosim Liq) 18 ml ONCE ONCE PO Last administered on 12/01/17at 10:32; Start 12/01/17 at 09:45; Stop 12/01/17 at 09:46; Status DC Miscellaneous Medication (ASP Crit: Doc ESBL, MDR A baumannii or P aer) 1 UNSCH X1 PRN .XX PHARMACY DOCUMENTATION; Start 12/01/17 at 12:00; Stop 12/02/17 at 11 :59; Status DC Miscellaneous Medication ([facility]) 1 UNSCH X1 PRN XX PHARMACY DOCUMENTATION; Start 12/01/17 at 12:00; Stop 12/02/17 at 11:59; Status DC Ertapenem 500 mg/ Sodium Chloride 100 ml @ 200 mls/hr Q24H IV ; Start 12/01/17 at 13:00; Stop 12/01/17 at 13:00; Status DC Ertapenem 500 mg/ Sodium Chloride 100 ml @ 200 mls/hr Q24H IV Last administered on 12/05/17at 12:21; Start 12/01/17 at 13:00; Stop 12/06/17 at 10:46 ; Status DC Potassium Chloride 100 ml @ 50 mls/hr BOLUS ONCE IV Last administered on 12/02at 12:42; Start 12/02/17 at 12:00; Stop 12/02/17 at 13:59; Status DC Vancomycin HCl 1500 mg/Sodium Chloride 515 ml @ 257.5 mls/ hr ONCE ONCE IV Last administered on 12/03/17at 15:08; Start 12/03/17 at 13:00; Stop 12/03/17 at 14:59; Status DC Aspirin (Aspirin Chew) 81 mg DAILY CHEW Last administered on 12/10/17at 08:02; Start 12/04/17 at 09:00 Miscellaneous Information ([facility]) D/C ICU ELECTROLYTE ORDERS... UNSCH PRN .XX SEE DOSE INSTRUCTIONS; Start 12/04/17 at 07:00 Miscellaneous Information ([facility]) ICU - CALL ORDERING PHYSIC... UNSCH PRN .XX SEE DOSE INSTRUCTIONS; Start 12/04/17 at 07:00 Potassium Chloride 100 ml @ 25 mls/hr UNSCH PRN IV ELECTROLYTE REPLACEMENT; Start 12/04/17 at 07:00 Potassium Bicarb/ Potassium Chloride (K-Lyte Cl Eff) 50 meq UNSCH PRN PO ELECTROLYTE REPLACEMENT Last administered on 12/04/17at 10:09; Start 12/04/17 at 07:00 Potassium Chloride 100 ml @ 50 mls/hr UNSCH PRN IV ELECTROLYTE REPLACEMENT; Start 12/04/17 at 07:00 Magnesium Sulfate 4 gm/Sodium Chloride 108 ml @ 54 mls/hr UNSCH PRN IV ELECTROLYTE REPLACEMENT; Start 12/04/17 at 07:00 Magnesium Sulfate 2 gm/Sodium Chloride 104 ml @ 52 mls/hr UNSCH PRN IV ELECTROLYTE REPLACEMENT; Start 12/04/17 at 07:00 Magnesium Oxide (Mag-Ox) 800 mg UNSCH PRN PO ELECTROLYTE REPLACEMENT; Start at 07:00 Sodium Phosphate 30 mmol/Sodium Chloride 260 ml @ 43.333 mls/ hr UNSCH PRN IV ELECTROLYTE REPLACEMENT; Start 12/04/17 at 07:00 Potassium Phosphate (K-Phos) 2,000 mg UNSCH PRN PO ELECTROLYTE REPLACEMENT; Start 12/04/17 at 07:00 Potassium Phosphate 30 mmol/ Sodium Chloride 260 ml @ 43.333 mls/ hr UNSCH PRN IV ELECTROLYTE REPLACEMENT; Start 12/04/17 at 07:00 Dexmedetomidine HCl 200 mcg/ Sodium Chloride 52 ml @ 4.39 mls/hr TITRATE PRN IV SEDATION Last administered on 12/05/17at 17:06; Start 12/04/17 at 09:15; Stop 12/05/17 at 18:24; Status DC Labetalol HCl (Trandate Inj) 10 mg Q4H PRN IV PUSH SYS BP GREATER THAN 160 MMHG Last administered on 12/09/17 04:42; Start 12/04/17 at 16:30 Hydralazine HCl (Apresoline Inj) 20 mg Q4H PRN IV PUSH SBP>160, DBP>90 Last administered on 12/08/17at 03:32; Start 12/04/17 at 16:30 Vancomycin HCl 1500 mg/Sodium Chloride 515 ml @ 257.5 mls/ hr ONCE ONCE IV Last administered on 12/05/17at 13:42; Start 12/05/17 at 13:00; Stop 12/05/17 at 14:59; Status DC Insulin Aspart (NovoLOG SUPPLEMENTAL SCALE) 1 ACHS SLIDING SCALE SQ ; Start at 17:00; Stop 12/05/17 at 17:00; Status DC Gadodiamide (Omniscan Pf Inj) 18 ml STK-MED ONCE IVCONTRAST Last administered on 12/05/17at 16:51; Start 12/05/17 at 16:51; Stop 12/05/17 at 16:52; Status DC Acetaminophen/ Hydrocodone Bitart ([place] 5-325 Mg) 1 tab Q6H PRN PO PAIN 8-10 ; Start 12/05/17 at 17:00; Stop 12/05/17 at 18:23; Status DC Insulin Aspart (NovoLOG SUPPLEMENTAL SCALE) 1 Q6H SQ Last administered on at 12:00; Start 12/05/17 at 18:00 Acetaminophen/ Hydrocodone Bitart ([place] 5-325 Mg) 1 tab Q6H PRN PEG PAIN 8- 10 Last administered on 12/07/17at 07:40; Start 12/05/17 at 18:30 Dexmedetomidine HCl 1000 mcg/ Sodium Chloride 250 ml @ 4.22 mls/hr TITRATE PRN IV SEDATION Last administered on 12/08/17 08:57; Start 12/05/17 at 18:30 Hydralazine HCl (Apresoline) 100 mg Q8H PO Last administered on 12/10/17at 09:55 ; Start 12/06/17 at 02:00 Miscellaneous Medication (ASP Crit: Doc ESBL, MDR A baumannii or P aer) 1 UNSCH X1 PRN .XX PHARMACY DOCUMENTATION; Start 12/06/17 at 10:00; Stop 12/07/17 at 09: 59; Status DC Miscellaneous Medication ([facility]) 1 UNSCH X1 PRN XX PHARMACY DOCUMENTATION; Start 12/06/17 at 10:00; Stop 12/07/17 at 09:59; Status DC Meropenem 1000 mg/ Sodium Chloride 100 ml @ 200 mls/hr Q8H IV Last administered on 12/10/17at 04:30; Start 12/06/17 at 12:00 Levofloxacin (Levaquin) 750 mg DAILY PO Last administered on 12/09/17at 08:54; Start 12/06/17 at 11:00; Stop 12/09/17 at 11:20; Status DC Vancomycin HCl 1500 mg/Sodium Chloride 515 ml @ 257.5 mls/ hr ONCE ONCE IV Last administered on 12/07/17at 14:03; Start 12/07/17 at 13:00; Stop 12/07/17 at 14: 59; Status DC Insulin Detemir (Levemir Inj) 5 units Q12HR SQ Last administered on 12/10/17at 08 :01; Start 12/07/17 at 21:00 Metoprolol Tartrate (Lopressor Inj) 5 mg STK-MED ONCE .ROUTE Last administered on 12/09/17at 08:30; Start 12/09/17 at 08:23; Stop 12/09/17 at 08:24; Status DC Vancomycin HCl 1500 mg/Sodium Chloride 515 ml @ 257.5 mls/ hr ONCE ONCE IV ; Start 12/09/17 at 14:00; Stop 12/09/17 at 14:00; Status DC Furosemide (Lasix Inj) 40 mg DAILY IV PUSH Last administered on 12/10/17at 08:01 ; Start 12/10/17 at 09:00 Furosemide (Lasix Inj) 40 mg ONCE ONCE IV PUSH Last administered on 12/09/17at 10:37; Start 12/09/17 at 10:30; Stop 12/09/17 at 10:31; Status DC Linezolid 300 ml @ 300 mls/hr Q12H IV Last administered on 12/09/17at 23:28; Start 12/09/17 at 12:00 Fluconazole/ Sodium Chloride 100 ml @ 100 mls/hr Q24H IV Last administered on 12/09/17at 12:46; Start 12/09/17 at 12:00 Metoprolol Tartrate (Lopressor Inj) 5 mg Q6H PRN IV PUSH HR > 110 Last administered on 12/10/17at 04:30; Start 12/09/17 at 13:30 Water (Free Water) 200 ml Q6HR PEG Last administered on 12/10/17at 04:58; Start 12/09/17 at 18:00 Metoprolol Tartrate (Lopressor Inj) 5 mg ONCE ONCE IV PUSH Last administered on 12/10/17at 01:35; Start 12/10/17 at 01:00; Stop 12/10/17 at 01:01; Status DC A/P Assessment and Plan Plan by systems: Neurologic: Acute metabolic encephalopathy History of prior CVA MRI-old frontoparietal encephalomalacia, no acute findings EEG-generalized slowing without seizures Frequent neurochecks Propofol for goal RASS -2, Avoid long-acting sedatives. daily sedation vacation Tox screen, UDS positive only for benzodiazepines B12 normal GCS 11T OFF SEDATION Respiratory: Acute hypoxic and hypercarbic respiratory failure Moderate pulmonary edema Vent bundle, Head of bed elevated Nebs every 6 hours scheduled and as needed Continue CPAP trials-now averaging > 24 hours a day. SBT- NIF -25, RR 31, TV 410, cuff leak. Unable to obtain FVC- Planned extubation Wean FiO2 for goal SPO2 greater than 90% TENUOUS BREATHING ADD LASIX CHEST XRAY Cardiovascular: Acute severe congestive heart failure exacerbation, unknown type Mildly Elevated troponin Lasix 80 mg IV 1 given 11/29, now scheduled Lasix 40 every 12 with IV albumin 12/01 2D echo -EF 60-65%, trace TR, mild LAE, mild MVR, No RWMA Patient has severe anemia with a hemoglobin of 5.9 , status post transfusion 2 units of packed cells, continue to monitor 12/02 ASA resumed RESTART COREG Renal: Acute kidney injury superimposed on chronic renal insufficiency with an unknown baseline Likely secondary to venous congestion from CHF Continue Dudley Diuresis as above Renal ultrasound: no obstruction or hydro FENa on admission 3.7% (unknown if on chronic lasix) FEUrea on admission 47.3%- suggestive of intrinsic renal disease. urine eosinophils negative -Nephrology following FEN/GI: Acute intravascular volume overload Diuresis as above Tube feeds with Nepro, minimal residual 12/01 CT of the abdomen and pelvis- Bibasilar consolidating lung infiltrate. Hepatosplenomegaly Calcified adrenal glands. Trace ascites. PEG tube and Dudley catheter in place. Inguinal lymphadenopathy. Calcific arthropathy of the left hip. No acute intestinal abnormality hydronephrosis or suspicious abdominopelvic masses. START NEPRO AGAIN Heme/ID: Severe anemia, likely secondary to chronic disease s/p 2 unit PRBCs on 11/28 Holding anticoagulation until etiology is determined Iron studies: low iron, low TIBC, high ferritin. suggests chronic disease as a cause. Daily CBC Pro calcitonin 1.4 intermediate risk. blood cultures 11/28 GPCs in 2/ bottles sputum culture 11/28 GNR- ESBL 11/25 ID following Hemoccult negative CT of the abdomen and pelvis Endocrine: Hyperglycemia of critical illness Diabetes Glucose monitoring per ICU protocol, high dose regimen 12/07 Levemir 5 units twice daily added -- SSI Prophylaxis: GI Prophylaxis IV PPI- BID DVT Prophylaxis -- SCDs Heparin SQ reinitiated 12/04 Lines: Peripheral IVs Dudley Discharge Planning PENDING IMPROVEMENT Candido Beltran DO Dec 10, 2017 10:13
--- NOTE | 2017-12-10 10:56 | HHI.IDPN ---
Subjective Subjective Remarks Patient is a 47-year-old male, who is a resident of the halfway, with history of CVA, brought into the hospital for decreased level of consciousness, decreased oxygen saturation. In the ED he was noted to have some pink frothy sputum. He was emergently intubated. His chest x-ray showed bilateral pulmonary infiltrates consistent with pulmonary edema. 2 blood cultures were done in the emergency room, and they are both growing staph hominis. Sputum culture also is now reported as growing Klebsiella ESBL positive. His chest x- ray has shown some worsening of his infiltrates. He was also found to have acute kidney injury. Patient is being managed for pulmonary edema, as well as sepsis. He has been getting vancomycin as well as Zosyn. He was initially febrile on his first hospital day, but that has improved. Patient's white count has been normal. Patient remains on the respirator. He has good urine output, but his creatinine remains elevated. There is no evidence of obstruction on his renal ultrasound. CT of the abdomen and pelvis are showing chronic changes of encephalomalacia compatible with his prior history of CVA. Infectious disease consultation has been requested to evaluate the patient. Notes reviewed D/W RN Febrile this weekend BP ok Has been extubated 12/08 Has a lot of oral secretions On 6L NC Sputum with Kelb ESBL and Pseudomonas BC negative No central line HAs triplett cath Last CXR worsening infiltrates MRI L foot with osteo Antibiotics Meropenem Levaquin Zyvox Diflucan Current Medications Medications (Trade) Dose Ordered Sig/Arthur Route Start Time Stop Time Status Last Admin (Brethine Inj) 1 mg UNSCH PRN SQ 11/28/17 05:30 (NS Flush) 2 ml UNSCH PRN IV FLUSH 11/28/17 05:45 12/05/17 08:07 (NS Flush) 2 ml BID IV FLUSH 11/28/17 09:00 12/10/17 08:02 (Tylenol) 650 mg Q6H PRN PO 11/28/17 05:45 12/10/17 03:29 (Tears Naturale Opth Soln) 1 drop TID EACH EYE 11/28/17 09:00 12/10/17 08:02 (Zofran Inj) 4 mg Q6H PRN IV PUSH 11/28/17 05:45 12/09/17 15:48 (Duoneb Neb) 1 ampule Q2HR NEB PRN INH 11/28/17 05:45 12/09/17 20:47 ([facility] [place] Nursing Information) 1 Q361D XX 11/28/17 05:45 (Chlorhexidine 2% Cloth) Taper DAILY@04 TOP 11/29/17 04:00 11/25/18 03:59 12/03/17 04:00 (Chlorhexidine 2% Cloth) 3 pack UNSCH PRN TOP 11/28/17 05:45 (Jessie-Colace) 1 tab BID PO 11/28/17 09:00 12/08/17 08:58 (Milk Of Magnesia Liq) 30 ml Q12H PRN PO 11/28/17 05:45 (Senokot) 17.2 mg Q12H PRN PO 11/28/17 05:45 (Dulcolax Supp) 10 mg DAILY PRN RECTAL 11/28/17 05:45 (Lactulose Liq) 30 ml DAILY PRN PO 11/28/17 05:45 12/01/17 11:49 (D50w (Vial) Inj) 25 ml UNSCH PRN IV PUSH 11/28/17 06:15 (Protonix Inj) 40 mg Q12H IV PUSH 11/28/17 12:00 12/09/17 23:28 (Santyl Oint) 1 applic DAILY TOPICAL 12/01/17 09:00 12/10/17 08:03 (Aspirin Chew) 81 mg DAILY CHEW 12/04/17 09:00 12/10/17 08:02 ([facility] [place] Nursing Information) D/C ICU ELECTROLYTE ORDERS... UNSCH PRN .XX 12/04/17 07:00 ([facility] [place] Nursing Information) ICU - CALL ORDERING PHYSIC... UNSCH PRN .XX 12/04/17 07:00 Potassium Chloride 100 ml @ 25 mls/hr UNSCH PRN IV 12/04/17 07:00 (K-Lyte Cl Eff) 50 meq UNSCH PRN PO 12/04/17 07:00 12/04/17 10:09 Potassium Chloride 100 ml @ 50 mls/hr UNSCH PRN IV 12/04/17 07:00 Magnesium Sulfate 4 gm/Sodium Chloride 108 ml @ 54 mls/hr UNSCH PRN IV 12/04/17 07:00 Magnesium Sulfate 2 gm/Sodium Chloride 104 ml @ 52 mls/hr UNSCH PRN IV 12/04/17 07:00 (Mag-Ox) 800 mg UNSCH PRN PO 12/04/17 07:00 Sodium Phosphate 30 mmol/Sodium Chloride 260 ml @ 43.333 mls/ hr UNSCH PRN IV 12/04/17 07:00 (K-Phos) 2,000 mg UNSCH PRN PO 12/04/17 07:00 Potassium Phosphate 30 mmol/ Sodium Chloride 260 ml @ 43.333 mls/ hr UNSCH PRN IV 12/04/17 07:00 (Trandate Inj) 10 mg Q4H PRN IV PUSH 12/04/17 16:30 12/09/17 04:42 (Apresoline Inj) 20 mg Q4H PRN IV PUSH 12/04/17 16:30 12/08/17 03:32 (NovoLOG SUPPLEMENTAL SCALE) 1 Q6H SQ 12/05/17 18:00 12/09/17 12:00 ([place] 5-325 Mg) 1 tab Q6H PRN PEG 12/05/17 18:30 12/07/17 07:40 Dexmedetomidine HCl 1000 mcg/ Sodium Chloride 250 ml @ 4.22 mls/hr TITRATE PRN IV 12/05/17 18:30 12/08/17 08:57 (Apresoline) 100 mg Q8H PO 12/06/17 02:00 12/10/17 09:55 Meropenem 1000 mg/ Sodium Chloride 100 ml @ 200 mls/hr Q8H IV 12/06/17 12:00 12/10/17 04:30 (Levemir Inj) 5 units Q12HR SQ 12/07/17 21:00 12/10/17 08:01 (Lasix Inj) 40 mg DAILY IV PUSH 12/10/17 09:00 12/10/17 08:01 Linezolid 300 ml @ 300 mls/hr Q12H IV 12/09/17 12:00 12/09/17 23:28 Fluconazole/ Sodium Chloride 100 ml @ 100 mls/hr Q24H IV 12/09/17 12:00 12/09/17 12:46 (Lopressor Inj) 5 mg Q6H PRN IV PUSH 12/09/17 13:30 12/10/17 04:30 (Free Water) 200 ml Q6HR PEG 12/09/17 18:00 12/10/17 04:58 (Coreg) 25 mg BID PO 12/10/17 10:30 (Sodium Bicarbonate) 325 mg BIDPC PO 12/10/17 10:30 Lines Chest X-Ray 12/09/17 Signed Impressions: CONCLUSION: The patient is status post extubation with worsening atelectasis/consolidation within the left lower lobe and lingula. Chest X-Ray 12/08/17599 Signed Impressions: CONCLUSION: Mild bibasilar areas of consolidation or atelectasis. This appears stable when compared to the most recent chest x-ray. Chest X-Ray 12/06/17599 Signed Impressions: CONCLUSION: Possible slight worsening of pulmonary edema since the prior exam. Chest X-Ray 12/05/17599 Signed Impressions: CONCLUSION: No appreciable change. Foot MRI 12/05/17 Signed Impressions: CONCLUSION: 1. Probable artifact involving the distal portion of the fifth metatarsal on t he T2 sequence could be further characterized with bone scan based on clinical grounds. Otherwise unremarkable. Foot MRI 12/05/17 Signed Impressions: CONCLUSION: 1. Marked enhancement in the subcutaneous tissues in the lateral aspect of the foot. Abnormal areas of bone marrow edema in the fifth metatarsal shaft concer khanh for residual osteomyelitis. There is also edema in the fourth metatarsal h ead concerning for an additional area of osteomyelitis Chest X-Ray 12/04/17599 Signed Impressions: CONCLUSION: Moderate pulmonary edema is suspected, however there is slight overall improvem ent in aeration of the left lung is the prior exam. Last Impressions Chest X-Ray 12/02/17599 Signed Impressions: CONCLUSION: No significant change. Left greater than right parenchymal consolidation and sm all left pleural effusion again noted. Abdomen/Pelvis CT 12/01/17 Signed Impressions: CONCLUSION: 1. Bibasilar consolidating lung infiltrate 2. Hepatosplenomegaly 3. Calcified adrenal glands. 4. Trace ascites. 5. PEG tube and Triplett catheter in place. 6. Inguinal lymphadenopathy. 7. Calcific arthropathy of the left hip. 8. No acute intestinal abnormality hydronephrosis or suspicious abdominopelvic masses. Renal Ultrasound 11/28/17 Signed Impressions: CONCLUSION: 1. Echogenic kidneys consistent with medical renal disease. 2. No obstructive uropathy. Head CT 11/28/17 0000 Signed Impressions: CONCLUSION: 1. No acute hemorrhage or mass effect. 2. Large area of encephalomalacia involving the right frontal and parietal lob e. 3. Chronic sinusitis. Brain MRI 11/28/17 0000 Signed Impressions: CONCLUSION: 1. Large area of encephalomalacia in the right medial frontal parietal high co nvexities extending to the vertex. 2. No evidence for acute abnormality. Specifically, no acute infarction, hemor rhage or hydrocephalus. 3. Paranasal sinus mucosal disease. Past Medical History GENERAL: sedated on the vent,NAD SKIN: Warm and dry. No generalized rash HEAD: Atraumatic. Normocephalic. No temporal wasting, or tenderness. EYES: Pale conjunctiva. No petechia or hemorrhage. Pupils equal, round and reactive to light. No scleral icterus. No injection or drainage. EARS, NOSE AND THROAT: Nose without bleeding or purulent nasal discharge. He is orally intubated. NECK: Trachea midline. Supple and not tender, no meningeal signs CARDIOVASCULAR: Regular rate and rhythm. Limited exam due to the diffuse rhonchi RESPIRATORY: Bilateral diffuse rhonchi ABDOMEN: Soft, mildly distended, no reaction to palpation, no guarding. Bowel sounds present and normoactive. EXTREMITIES: No clubbing, cyanosis. Has edema of both hands. No pedal edema. Dressings to both intact. Well perfused and warm. NEUROLOGICAL: Sedated on the vent. PSYCHIATRIC: Unable to assess. LINE: No evidence of infection : Triplett catheter in place, urine looks clear Allergies: Coded Allergies: No Known Allergies (Verified Allergy, Severe, 11/03/06) Objective . Vital Signs Date Time Temp Pulse Resp B/P (MAP) Pulse Ox O2 Delivery O2 Flow Rate FiO2 12/10/17 10:16 97 Nasal Cannula 4.00 12/10/17 10:00 126 12/10/17 09:45 98 Nasal Cannula 4.00 12/10/17 08:00 99.0 125 35 144/74 (97) 97 12/10/17 08:00 125 12/10/17 07:00 98 Nasal Cannula 6.00 12/10/17 06:00 117 12/10/17 04:00 132 12/10/17 04:00 102.9 132 27 105/59 (74) 95 12/10/17 02:00 125 12/10/17 00:00 137 12/10/17 00:00 100.7 137 30 136/69 (91) 97 12/09/17 22:00 132 12/09/17 21:15 98 Nasal Cannula 6.00 12/09/17 20:48 100 Non-Rebreather 12/09/17 20:00 118 12/09/17 20:00 100.6 118 30 124/71 (88) 99 12/09/17 19:00 100 Non-Rebreather 12/09/17 18:00 118 12/09/17 16:00 123 12/09/17 16:00 101.6 123 48 143/72 (95) 98 12/09/17 14:00 128 12/09/17 12:00 100.8 125 36 143/73 (96) 99 12/09/17 12:00 125 . Laboratory Tests Test 12/09/17 04:21 12/10/17 05:06 White Blood Count 14.8 TH/MM3 12.8 TH/MM3 Red Blood Count 3.34 MIL/MM3 2.77 MIL/MM3 Hemoglobin 9.8 GM/DL 8.1 GM/DL Hematocrit 30.7 % 25.2 % Mean Corpuscular Volume 91.7 FL 90.7 FL Mean Corpuscular Hemoglobin 29.3 PG 29.3 PG Mean Corpuscular Hemoglobin Concent 31.9 % 32.3 % Red Cell Distribution Width 14.1 % 14.2 % Platelet Count 468 TH/MM3 360 TH/MM3 Mean Platelet Volume 8.5 FL 9.0 FL Neutrophils (%) (Auto) 85.6 % Lymphocytes (%) (Auto) 8.5 % Monocytes (%) (Auto) 5.0 % Eosinophils (%) (Auto) 0.6 % Basophils (%) (Auto) 0.3 % Neutrophils # (Auto) 11.0 TH/MM3 Lymphocytes # (Auto) 1.1 TH/MM3 Monocytes # (Auto) 0.6 TH/MM3 Eosinophils # (Auto) 0.1 TH/MM3 Basophils # (Auto) 0.0 TH/MM3 CBC Comment DIFF FINAL Differential Comment Laboratory Tests Test 12/09/17 04:21 12/09/17 15:13 12/10/17 05:06 Blood Urea Nitrogen 51 MG/DL 47 MG/DL Creatinine 1.49 MG/DL 1.65 MG/DL Random Glucose 98 MG/DL 107 MG/DL Calcium Level 9.6 MG/DL 9.2 MG/DL Phosphorus Level 4.2 MG/DL 3.9 MG/DL Magnesium Level 2.2 MG/DL 2.1 MG/DL Sodium Level 153 MEQ/L 152 MEQ/L Potassium Level 3.9 MEQ/L 3.8 MEQ/L Chloride Level 121 MEQ/L 121 MEQ/L Carbon Dioxide Level 17.5 MEQ/L 18.1 MEQ/L Anion Gap 15 MEQ/L 13 MEQ/L Estimat Glomerular Filtration Rate 61 ML/MIN 54 ML/MIN Lactic Acid Level 1.2 mmol/L Total Protein 7.9 GM/DL Albumin 2.4 GM/DL Alkaline Phosphatase 104 U/L Aspartate Amino Transf (AST/SGOT) 40 U/L Alanine Aminotransferase (ALT/SGPT) 37 U/L Total Bilirubin 0.6 MG/DL Free Thyroxine 1.37 NG/DL Thyroid Stimulating Hormone 3rd Gen 2.110 uIU/ML Microbiology Date/Time Source Procedure Growth Status 12/09/17 12:26 Blood Peripheral Aerobic Blood Culture Pending Received 12/09/17 12:26 Blood Peripheral Anaerobic Blood Culture Pending Received 12/09/17 12:15 Blood Peripheral Aerobic Blood Culture Pending Received 12/09/17 12:15 Blood Peripheral Anaerobic Blood Culture Pending Received 12/09/17 16:00 Urine Catheterized Urine Urine Culture Pending Received Imaging Last Impressions Chest X-Ray 12/02/17 0600 Signed Impressions: CONCLUSION: No significant change. Left greater than right parenchymal consolidation and sm all left pleural effusion again noted. Abdomen/Pelvis CT 12/01/17 0000 Signed Impressions: CONCLUSION: 1. Bibasilar consolidating lung infiltrate 2. Hepatosplenomegaly 3. Calcified adrenal glands. 4. Trace ascites. 5. PEG tube and Triplett catheter in place. 6. Inguinal lymphadenopathy. 7. Calcific arthropathy of the left hip. 8. No acute intestinal abnormality hydronephrosis or suspicious abdominopelvic masses. Renal Ultrasound 11/28/17 Signed Impressions: CONCLUSION: 1. Echogenic kidneys consistent with medical renal disease. 2. No obstructive uropathy. Head CT 11/28/17 Signed Impressions: CONCLUSION: 1. No acute hemorrhage or mass effect. 2. Large area of encephalomalacia involving the right frontal and parietal lob e. 3. Chronic sinusitis. Brain MRI 11/28/17 0000 Signed Impressions: CONCLUSION: 1. Large area of encephalomalacia in the right medial frontal parietal high co nvexities extending to the vertex. 2. No evidence for acute abnormality. Specifically, no acute infarction, hemor rhage or hydrocephalus. 3. Paranasal sinus mucosal disease. Physical Exam GENERAL: awake, focusing, follows some commands, drooling, on nasal O2, not in respiratory distress. SKIN: Cool and dry. No generalized rash HEAD: Atraumatic. Normocephalic. No temporal wasting, or tenderness. EYES: Pale conjunctiva. No petechia or hemorrhage. Pupils equal, round and reactive to light. No scleral icterus. No injection or drainage. EARS, NOSE AND THROAT: Nose without bleeding or purulent nasal discharge. Drooling clear secretions NECK: Trachea midline. Supple and not tender, no meningeal signs CARDIOVASCULAR: Regular rate and rhythm. RESPIRATORY: Decreased breath souinds bilaterally ABDOMEN: Soft, mildly distended, no reaction to palpation, no guarding. Bowel sounds present and normoactive. EXTREMITIES: No clubbing, cyanosis. Has edema of both hands. No pedal edema. Has dressings to both feet, dry and intact. Well perfused and warm. NEUROLOGICAL: Sedated on the vent. PSYCHIATRIC: Unable to assess. 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 Follow new C/S Follow temps Monitor progress D/W Sharlene uCevas MD Dec 10, 2017 10:56
[2017-12-10] MEDS: CARVEDILOL 12.5 MG TAB PO SCH ×2 (10:57→20:38)
[2017-12-10] MEDS: PANTOPRAZOLE SODIUM 40 MG VIAL IV PUSH SCH ×2 (11:09→23:49)
[2017-12-10] MEDS: FLUCONAZOLE 200 MG PREMIX BAG 100 ML IV SCH (11:09)
[2017-12-10] MEDS: LINEZOLID 600 MG PREMIX 300 ML IV SCH ×2 (11:09→23:49)
[2017-12-10] MEDS: SODIUM BICARBONATE 325 MG TAB PO SCH ×2 (11:11→17:10)
[2017-12-10 16:24] LABS: HEMOGLOBIN A1C 7.2 % (4.3-6.0)
[2017-12-11] VITALS (14 sets, daily range): BP systolic 111–135; BP diastolic 58–71; PULSE 96–120; RESP 22–35; TEMP 99.3–101.1; O2SAT 94–99
[2017-12-11] MEDS: hydrALAZINE HCL 100 MG TAB PO SCH ×4 (02:58→17:48)
[2017-12-11] MEDS: MEROPENEM INJ 1,000 MG in SODIUM CHLORIDE 0.9% INJ 100 ML IV SCH ×3 (03:03→21:43)
[2017-12-11] MEDS: CHLORHEXIDINE GLUCONATE 2 % 1 PACK (2 CLOTHS) TOP SCH (03:51)
[2017-12-11 05:50] LABS: AUTOMATED NEUTROPHIL # 7.6 TH/MM3 (1.8-7.7); BASOPHIL % 0.3 % (0.0-2.0); EOSINOPHIL # 0.2 TH/MM3 (0-0.4); EOSINOPHIL % 2.5 % (0.0-4.0); HEMATOCRIT 24.6 % (39.0-51.0); HEMOGLOBIN 8.3 GM/DL (13.0-17.0); LYMPH % 15.2 % (9.0-44.0); LYMPHOCYTE # 1.5 TH/MM3 (1.0-4.8); MEAN CELL VOLUME 90.5 FL (80.0-100.0); MEAN CORPUSCULAR HEMOGLOBIN 30.4 PG (27.0-34.0); MEAN CORPUSCULAR HGB CONC 33.6 % (32.0-36.0); MONO % 6.9 % (0.0-8.0); MONOCYTE # 0.7 TH/MM3 (0-0.9); NEUT % 75.1 % (16.0-70.0); PLATELET COUNT 333 TH/MM3 (150-450); RED BLOOD COUNT 2.72 MIL/MM3 (4.50-5.90); WHITE BLOOD COUNT 10.1 TH/MM3 (4.0-11.0)
[2017-12-11] MEDS: INSULIN ASPART SUPPLEMENTAL SCALE SQ SCH ×3 (06:00→17:20)
[2017-12-11] MEDS: FREE WATER PEG SCH ×3 (06:00→17:19)
[2017-12-11 06:12] LABS: ALBUMIN 2.2 GM/DL (3.4-5.0); AST (GOT) 35 U/L (15-37); BICARBONATE 18.9 MEQ/L (21.0-32.0); BLOOD UREA NITROGEN 50 MG/DL (7-18); CALCIUM 9.2 MG/DL (8.5-10.1); CHLORIDE 118 MEQ/L (98-107); CREATININE 1.55 MG/DL (0.60-1.30); GLOMERULAR FILTRATION RATE 59 ML/MIN (>89); GLUCOSE,RANDOM 106 MG/DL (74-106); MAGNESIUM 2.1 MG/DL (1.5-2.5); SODIUM (NA) 150 MEQ/L (136-145)
[2017-12-11 06:13] LABS: ALT (GPT) 32 U/L (12-78); PHOSPHORUS 3.3 MG/DL (2.5-4.9)
[2017-12-11 06:15] LABS: ALKALINE PHOSPHATASE 99 U/L (45-117); TOTAL BILIRUBIN ADULT 0.4 MG/DL (0.2-1.0); TOTAL PROTEIN 7.9 GM/DL (6.4-8.2)
[2017-12-11] MEDS: FUROSEMIDE 40 MG/4 ML VIAL IV PUSH SCH (07:50)
[2017-12-11] MEDS: ARTIFICIAL TEARS OPTH SOLN 15 ML BTL EACH EYE SCH ×3 (07:51→17:19)
[2017-12-11] MEDS: ASPIRIN 81 MG CHEW TAB CHEW SCH (07:51)
[2017-12-11] MEDS: CARVEDILOL 12.5 MG TAB PO SCH ×2 (07:51→21:32)
[2017-12-11] MEDS: SODIUM BICARBONATE 325 MG TAB PO SCH ×2 (07:51→17:19)
[2017-12-11] MEDS: DOCUSATE SODIUM 50 MG/SENNA 8.6 MG TAB PO SCH ×2 (07:51→20:26)
[2017-12-11] MEDS: SODIUM CHLORIDE 0.9% FLUSH 10 ML FLUSH IV FLUSH SCH ×2 (07:51→20:26)
[2017-12-11] MEDS: INSULIN DETEMIR 100 UNITS/ML VIAL SQ SCH ×2 (07:52→21:00)
[2017-12-11] MEDS: COLLAGENASE OINT 30 GM TUBE TOPICAL SCH (07:52)
[2017-12-11] MEDS: ACETAMINOPHEN 325 MG TAB PO PRN (08:11)
--- NOTE | 2017-12-11 09:27 | HHI.IDPN ---
Subjective Subjective Remarks Patient is a 47-year-old male, who is a resident of the group home, with history of CVA, brought into the hospital for decreased level of consciousness, decreased oxygen saturation. In the ED he was noted to have some pink frothy sputum. He was emergently intubated. His chest x-ray showed bilateral pulmonary infiltrates consistent with pulmonary edema. 2 blood cultures were done in the emergency room, and they are both growing staph hominis. Sputum culture also is now reported as growing Klebsiella ESBL positive. His chest x- ray has shown some worsening of his infiltrates. He was also found to have acute kidney injury. Patient is being managed for pulmonary edema, as well as sepsis. He has been getting vancomycin as well as Zosyn. He was initially febrile on his first hospital day, but that has improved. Patient's white count has been normal. Patient remains on the respirator. He has good urine output, but his creatinine remains elevated. There is no evidence of obstruction on his renal ultrasound. CT of the abdomen and pelvis are showing chronic changes of encephalomalacia compatible with his prior history of CVA. Infectious disease consultation has been requested to evaluate the patient. Notes reviewed D/W RN Temsp better, 99+ BP ok Has been extubated 12/08 Has a lot of oral secretions On 4L NC Sputum with Kelb ESBL and Pseudomonas BC negative No central line HAs triplett cath Last CXR worsening infiltrates MRI ?L foot with osteo Antibiotics Meropenem Levaquin Zyvox Diflucan Current Medications Medications (Trade) Dose Ordered Sig/Arthur Route Start Time Stop Time Status Last Admin (Brethine Inj) 1 mg UNSCH PRN SQ 11/28/17 05:30 (NS Flush) 2 ml UNSCH PRN IV FLUSH 11/28/17 05:45 12/05/17 08:07 (NS Flush) 2 ml BID IV FLUSH 11/28/17 09:00 12/11/17 07:51 (Tylenol) 650 mg Q6H PRN PO 11/28/17 05:45 12/11/17 08:11 (Tears Naturale Opth Soln) 1 drop TID EACH EYE 11/28/17 09:00 12/11/17 07:51 (Zofran Inj) 4 mg Q6H PRN IV PUSH 11/28/17 05:45 12/09/17 15:48 (Duoneb Neb) 1 ampule Q2HR NEB PRN INH 11/28/17 05:45 12/09/17 20:47 ([facility] Nursing Information) 1 Q361D XX 11/28/17 05:45 (Chlorhexidine 2% Cloth) Taper DAILY@04 TOP 11/29/17 04:00 11/25/18 03:59 12/11/17 03:51 (Chlorhexidine 2% Cloth) 3 pack UNSCH PRN TOP 11/28/17 05:45 (Jessie-Colace) 1 tab BID PO 11/28/17 09:00 12/10/17 20:25 (Milk Of Magnesia Liq) 30 ml Q12H PRN PO 11/28/17 05:45 (Senokot) 17.2 mg Q12H PRN PO 11/28/17 05:45 (Dulcolax Supp) 10 mg DAILY PRN RECTAL 11/28/17 05:45 (Lactulose Liq) 30 ml DAILY PRN PO 11/28/17 05:45 12/01/17 11:49 (D50w (Vial) Inj) 25 ml UNSCH PRN IV PUSH 11/28/17 06:15 (Protonix Inj) 40 mg Q12H IV PUSH 11/28/17 12:00 12/10/17 23:49 (Santyl Oint) 1 applic DAILY TOPICAL 12/01/17 09:00 12/11/17 07:52 (Aspirin Chew) 81 mg DAILY CHEW 12/04/17 09:00 12/11/17 07:51 ([facility] Nursing Information) D/C ICU ELECTROLYTE ORDERS... UNSCH PRN .XX 12/04/17 07:00 ([facility] Nursing Information) ICU - CALL ORDERING PHYSIC... UNSCH PRN .XX 12/04/17 07:00 Potassium Chloride 100 ml @ 25 mls/hr UNSCH PRN IV 12/04/17 07:00 (K-Lyte Cl Eff) 50 meq UNSCH PRN PO 12/04/17 07:00 12/04/17 10:09 Potassium Chloride 100 ml @ 50 mls/hr UNSCH PRN IV 12/04/17 07:00 Magnesium Sulfate 4 gm/Sodium Chloride 108 ml @ 54 mls/hr UNSCH PRN IV 12/04/17 07:00 Magnesium Sulfate 2 gm/Sodium Chloride 104 ml @ 52 mls/hr UNSCH PRN IV 12/04/17 07:00 (Mag-Ox) 800 mg UNSCH PRN PO 12/04/17 07:00 Sodium Phosphate 30 mmol/Sodium Chloride 260 ml @ 43.333 mls/ hr UNSCH PRN IV 12/04/17 07:00 (K-Phos) 2,000 mg UNSCH PRN PO 12/04/17 07:00 Potassium Phosphate 30 mmol/ Sodium Chloride 260 ml @ 43.333 mls/ hr UNSCH PRN IV 12/04/17 07:00 (Trandate Inj) 10 mg Q4H PRN IV PUSH 12/04/17 16:30 12/09/17 04:42 (Apresoline Inj) 20 mg Q4H PRN IV PUSH 12/04/17 16:30 12/08/17 03:32 (NovoLOG SUPPLEMENTAL SCALE) 1 Q6H SQ 12/05/17 18:00 12/09/17 12:00 ([place] 5-325 Mg) 1 tab Q6H PRN PEG 12/05/17 18:30 12/07/17 07:40 Dexmedetomidine HCl 1000 mcg/ Sodium Chloride 250 ml @ 4.22 mls/hr TITRATE PRN IV 12/05/17 18:30 12/08/17 08:57 (Apresoline) 100 mg Q8H PO 12/06/17 02:00 12/11/17 02:58 Meropenem 1000 mg/ Sodium Chloride 100 ml @ 200 mls/hr Q8H IV 12/06/17 12:00 12/11/17 03:03 (Levemir Inj) 5 units Q12HR SQ 12/07/17 21:00 12/11/17 07:52 (Lasix Inj) 40 mg DAILY IV PUSH 12/10/17 09:00 12/11/17 07:50 Linezolid 300 ml @ 300 mls/hr Q12H IV 12/09/17 12:00 12/10/17 23:49 Fluconazole/ Sodium Chloride 100 ml @ 100 mls/hr Q24H IV 12/09/17 12:00 12/10/17 11:09 (Lopressor Inj) 5 mg Q6H PRN IV PUSH 12/09/17 13:30 12/10/17 21:40 (Free Water) 200 ml Q6HR PEG 12/09/17 18:00 12/11/17 06:00 (Coreg) 25 mg BID PO 12/10/17 10:30 12/11/17 07:51 (Sodium Bicarbonate) 325 mg BIDPC PO 12/10/17 10:30 12/11/17 07:51 Lines Chest X-Ray 12/09/17 Signed Impressions: CONCLUSION: The patient is status post extubation with worsening atelectasis/consolidation within the left lower lobe and lingula. Chest X-Ray 12/08/17599 Signed Impressions: CONCLUSION: Mild bibasilar areas of consolidation or atelectasis. This appears stable when compared to the most recent chest x-ray. Chest X-Ray 12/06/17599 Signed Impressions: CONCLUSION: Possible slight worsening of pulmonary edema since the prior exam. Chest X-Ray 12/05/17599 Signed Impressions: CONCLUSION: No appreciable change. Foot MRI 12/05/17 Signed Impressions: CONCLUSION: 1. Probable artifact involving the distal portion of the fifth metatarsal on t he T2 sequence could be further characterized with bone scan based on clinical grounds. Otherwise unremarkable. Foot MRI 12/05/17 Signed Impressions: CONCLUSION: 1. Marked enhancement in the subcutaneous tissues in the lateral aspect of the foot. Abnormal areas of bone marrow edema in the fifth metatarsal shaft concer khanh for residual osteomyelitis. There is also edema in the fourth metatarsal h ead concerning for an additional area of osteomyelitis Chest X-Ray 12/04/17599 Signed Impressions: CONCLUSION: Moderate pulmonary edema is suspected, however there is slight overall improvem ent in aeration of the left lung is the prior exam. Last Impressions Chest X-Ray 12/02/17 06 Signed Impressions: CONCLUSION: No significant change. Left greater than right parenchymal consolidation and sm all left pleural effusion again noted. Abdomen/Pelvis CT 12/01/17 Signed Impressions: CONCLUSION: 1. Bibasilar consolidating lung infiltrate 2. Hepatosplenomegaly 3. Calcified adrenal glands. 4. Trace ascites. 5. PEG tube and Triplett catheter in place. 6. Inguinal lymphadenopathy. 7. Calcific arthropathy of the left hip. 8. No acute intestinal abnormality hydronephrosis or suspicious abdominopelvic masses. Renal Ultrasound 11/28/17 Signed Impressions: CONCLUSION: 1. Echogenic kidneys consistent with medical renal disease. 2. No obstructive uropathy. Head CT 11/28/17 Signed Impressions: CONCLUSION: 1. No acute hemorrhage or mass effect. 2. Large area of encephalomalacia involving the right frontal and parietal lob e. 3. Chronic sinusitis. Brain MRI 11/28/17 Signed Impressions: CONCLUSION: 1. Large area of encephalomalacia in the right medial frontal parietal high co nvexities extending to the vertex. 2. No evidence for acute abnormality. Specifically, no acute infarction, hemor rhage or hydrocephalus. 3. Paranasal sinus mucosal disease. Past Medical History GENERAL: awakens easily, responding, on nasal O2 SKIN: Warm and dry. No generalized rash HEAD: Atraumatic. Normocephalic. No temporal wasting, or tenderness. EYES: Pale conjunctiva. No petechia or hemorrhage. Pupils equal, round and reactive to light. No scleral icterus. No injection or drainage. EARS, NOSE AND THROAT: Nose without bleeding or purulent nasal discharge. He is orally intubated. NECK: Trachea midline. Supple and not tender, no meningeal signs CARDIOVASCULAR: Regular rate and rhythm. RESPIRATORY: Bilateral diffuse rhonchi ABDOMEN: Soft, mildly distended, no reaction to palpation, no guarding. Bowel sounds present and normoactive. EXTREMITIES: No clubbing, cyanosis. Has edema of both hands. No pedal edema. Dressings to both intact. Well perfused and warm. NEUROLOGICAL: Awakens easily, following PSYCHIATRIC: CAlm LINE: No evidence of infection : Triplett catheter in place, urine looks clear Allergies: Coded Allergies: No Known Allergies (Verified Allergy, Severe, 11/03/06) Objective . Vital Signs Date Time Temp Pulse Resp B/P (MAP) Pulse Ox O2 Delivery O2 Flow Rate FiO2 12/11/17 09:04 27 12/11/17 06:00 113 12/11/17 04:00 99.5 112 34 111/58 (75) 99 12/11/17 04:00 112 12/11/17 03:48 98 Nasal Cannula 4.00 12/11/17 02:00 113 12/11/17 00:00 120 12/11/17 00:00 99.5 120 35 118/71 (87) 97 12/10/17 23:43 96 Nasal Cannula 4.00 12/10/17 22:00 113 12/10/17 20:00 98.7 118 32 117/64 (81) 96 12/10/17 20:00 118 12/10/17 19:51 100 Nasal Cannula 4.00 12/10/17 19:00 96 Nasal Cannula 4.00 12/10/17 18:00 113 12/10/17 16:00 108 12/10/17 16:00 100.3 108 29 106/67 (80) 97 12/10/17 14:00 109 12/10/17 12:00 116 12/10/17 12:00 99.3 116 31 118/56 (76) 98 12/10/17 10:16 97 Nasal Cannula 4.00 12/10/17 10:00 126 12/10/17 09:45 98 Nasal Cannula 4.00 . Laboratory Tests Test 12/10/17 05:06 12/11/17 05:02 White Blood Count 12.8 TH/MM3 10.1 TH/MM3 Red Blood Count 2.77 MIL/MM3 2.72 MIL/MM3 Hemoglobin 8.1 GM/DL 8.3 GM/DL Hematocrit 25.2 % 24.6 % Mean Corpuscular Volume 90.7 FL 90.5 FL Mean Corpuscular Hemoglobin 29.3 PG 30.4 PG Mean Corpuscular Hemoglobin Concent 32.3 % 33.6 % Red Cell Distribution Width 14.2 % 14.0 % Platelet Count 360 TH/MM3 333 TH/MM3 Mean Platelet Volume 9.0 FL 9.0 FL Neutrophils (%) (Auto) 85.6 % 75.1 % Lymphocytes (%) (Auto) 8.5 % 15.2 % Monocytes (%) (Auto) 5.0 % 6.9 % Eosinophils (%) (Auto) 0.6 % 2.5 % Basophils (%) (Auto) 0.3 % 0.3 % Neutrophils # (Auto) 11.0 TH/MM3 7.6 TH/MM3 Lymphocytes # (Auto) 1.1 TH/MM3 1.5 TH/MM3 Monocytes # (Auto) 0.6 TH/MM3 0.7 TH/MM3 Eosinophils # (Auto) 0.1 TH/MM3 0.2 TH/MM3 Basophils # (Auto) 0.0 TH/MM3 0.0 TH/MM3 CBC Comment DIFF FINAL DIFF FINAL Differential Comment Laboratory Tests Test 12/09/17 15:13 12/10/17 05:06 12/11/17 05:02 Lactic Acid Level 1.2 mmol/L Blood Urea Nitrogen 47 MG/DL 50 MG/DL Creatinine 1.65 MG/DL 1.55 MG/DL Random Glucose 107 MG/DL 106 MG/DL Total Protein 7.9 GM/DL 7.9 GM/DL Albumin 2.4 GM/DL 2.2 GM/DL Calcium Level 9.2 MG/DL 9.2 MG/DL Phosphorus Level 3.9 MG/DL 3.3 MG/DL Magnesium Level 2.1 MG/DL 2.1 MG/DL Alkaline Phosphatase 104 U/L 99 U/L Aspartate Amino Transf (AST/SGOT) 40 U/L 35 U/L Alanine Aminotransferase (ALT/SGPT) 37 U/L 32 U/L Total Bilirubin 0.6 MG/DL 0.4 MG/DL Sodium Level 152 MEQ/L 150 MEQ/L Potassium Level 3.8 MEQ/L 3.7 MEQ/L Chloride Level 121 MEQ/L 118 MEQ/L Carbon Dioxide Level 18.1 MEQ/L 18.9 MEQ/L Anion Gap 13 MEQ/L 13 MEQ/L Estimat Glomerular Filtration Rate 54 ML/MIN 59 ML/MIN Hemoglobin A1c 7.2 % Free Thyroxine 1.37 NG/DL Thyroid Stimulating Hormone 3rd Gen 2.110 uIU/ML Microbiology Date/Time Source Procedure Growth Status 12/09/17 12:26 Blood Peripheral Aerobic Blood Culture - Preliminary NO GROWTH IN 1 DAY Resulted 12/09/17 12:26 Blood Peripheral Anaerobic Blood Culture - Preliminary NO GROWTH IN 1 DAY Resulted 12/09/17 12:15 Blood Peripheral Aerobic Blood Culture - Preliminary NO GROWTH IN 1 DAY Resulted 12/09/17 12:15 Blood Peripheral Anaerobic Blood Culture - Preliminary NO GROWTH IN 1 DAY Resulted 12/09/17 16:00 Urine Catheterized Urine Urine Culture - Final NO GROWTH IN 48 HOURS. Complete Imaging Last Impressions Chest X-Ray 12/02/17 0600 Signed Impressions: CONCLUSION: No significant change. Left greater than right parenchymal consolidation and sm all left pleural effusion again noted. Abdomen/Pelvis CT 12/01/17 0000 Signed Impressions: CONCLUSION: 1. Bibasilar consolidating lung infiltrate 2. Hepatosplenomegaly 3. Calcified adrenal glands. 4. Trace ascites. 5. PEG tube and Triplett catheter in place. 6. Inguinal lymphadenopathy. 7. Calcific arthropathy of the left hip. 8. No acute intestinal abnormality hydronephrosis or suspicious abdominopelvic masses. Renal Ultrasound 11/28/17 Signed Impressions: CONCLUSION: 1. Echogenic kidneys consistent with medical renal disease. 2. No obstructive uropathy. Head CT 11/28/17 Signed Impressions: CONCLUSION: 1. No acute hemorrhage or mass effect. 2. Large area of encephalomalacia involving the right frontal and parietal lob e. 3. Chronic sinusitis. Brain MRI 11/28/17 Signed Impressions: CONCLUSION: 1. Large area of encephalomalacia in the right medial frontal parietal high co nvexities extending to the vertex. 2. No evidence for acute abnormality. Specifically, no acute infarction, hemor rhage or hydrocephalus. 3. Paranasal sinus mucosal disease. Physical Exam GENERAL: awake, focusing, follows some commands, drooling, on nasal O2, not in respiratory distress. SKIN: Cool and dry. No generalized rash HEAD: Atraumatic. Normocephalic. No temporal wasting, or tenderness. EYES: Pale conjunctiva. No petechia or hemorrhage. Pupils equal, round and reactive to light. No scleral icterus. No injection or drainage. EARS, NOSE AND THROAT: Nose without bleeding or purulent nasal discharge. Drooling clear secretions NECK: Trachea midline. Supple and not tender, no meningeal signs CARDIOVASCULAR: Regular rate and rhythm. RESPIRATORY: Decreased breath souinds bilaterally ABDOMEN: Soft, mildly distended, no reaction to palpation, no guarding. Bowel sounds present and normoactive. EXTREMITIES: No clubbing, cyanosis. Has edema of both hands. No pedal edema. Has dressings to both feet, dry and intact. Well perfused and warm. NEUROLOGICAL: Sedated on the vent. PSYCHIATRIC: Unable to assess. LINE: No evidence of infection : Triplett catheter in place, urine looks clear Assessment & Plan Remarks IMPRESSION Klebsiella ESBL+ in sputum with bilateral infiltrates - has CHF and with PNA (?Aspiration, came in with decreased LOC) CHF, EF good on his echo Respiratory failure, extubated 12/08 - CXR worsening, ?due to atelectasis due to poor respiratory effort New HCAP, Kleb and Pseudomonas Possible Osteo L foot - has chronic ulcers, both feet, debrided by podiatry at bedside Acute kidney injury, improving (+) BC with Staph hominis, ?source Hx CVA SNF resident Fevers, ?due to lung, atelectasis, vs other etiology - better RECOMMENDATION Continue Meropenem Stop Zyvox IV Stop Diflucan Follow new C/S Follow temps Monitor progress Sharlene Kim MD Dec 11, 2017 09:27
[2017-12-11] MEDS: PANTOPRAZOLE SODIUM 40 MG VIAL IV PUSH SCH (11:03)
--- NOTE | 2017-12-11 11:33 | RADRPT ---
EXAM DATE: 12/11/2017 10:13 AM EDT AGE/SEX: 47 years / Male INDICATIONS: Short of breath, evaluate infiltrates CLINICAL DATA: This is the patient's subsequent encounter. Patient reports that signs and symptoms h ave been present for 1 week and indicates a pain score of Nonresponsive. MEDICAL/SURGICAL HISTORY: Stroke. Cardiovascular disease. Hypertension. CABG. COMPARISON: [facility] [place], CHEST SINGLE AP, 12/09/2017. . FINDINGS: There again is a dense consolidation left lower lobe. This infiltrate in the left midlung zone. Heart slightly enlarged. There are 8 intact sternal wires. Right lung is relatively clear. CONCLUSION: Dense infiltrate left lung base. Electronically signed by: Dave Marie MD 12/11/2017 11:32 AM EDT
--- NOTE | 2017-12-11 17:07 | HHI.PR ---
Subjective Remarks Patient laying in bed looks comfortable He is nonverbal Afebrile Objective Vitals Vital Signs Date Time Temp Pulse Resp B/P (MAP) Pulse Ox O2 Delivery O2 Flow Rate FiO2 12/11/17 16:00 107 12/11/17 14:00 100 12/11/17 12:00 96 12/11/17 12:00 99.3 96 25 115/59 (77) 99 12/11/17 10:00 97 12/11/17 09:42 98 Nasal Cannula 3.00 12/11/17 09:04 27 12/11/17 08:00 116 12/11/17 08:00 101.1 116 33 118/61 (80) 97 12/11/17 07:00 98 Nasal Cannula 4.00 12/11/17 06:00 113 12/11/17 04:00 99.5 112 34 111/58 (75) 99 12/11/17 04:00 112 12/11/17 03:48 98 Nasal Cannula 4.00 12/11/17 02:00 113 12/11/17 00:00 120 12/11/17 00:00 99.5 120 35 118/71 (87) 97 12/10/17 23:43 96 Nasal Cannula 4.00 12/10/17 22:00 113 12/10/17 20:00 98.7 118 32 117/64 (81) 96 12/10/17 20:00 118 12/10/17 19:51 100 Nasal Cannula 4.00 12/10/17 19:00 96 Nasal Cannula 4.00 12/10/17 18:00 113 I/O 12/10/17 12/10/17 12/10/17 12/11/17 12/11/17 12/11/17 07:00 15:00 23:00 07:00 15:00 23:00 Intake Total 850 ml 500 ml 627 ml 1177 ml 100 ml Output Total 475 ml 1800 ml 450 ml Balance 375 ml 500 ml -1173 ml 727 ml 100 ml Intake IV Total 400 ml 500 ml 100 ml 400 ml 100 ml Tube Feeding 67 ml 317 ml Other 450 ml 460 ml 460 ml Output Urine Total 475 ml 1800 ml 450 ml # Bowel Movements 1 2 1 Result Diagram: 12/11/17 0502 12/11/17 0502 Objective Remarks GENERAL: This is a 47 -[place] male laying in bed comfortably, he is nonverbal SKIN: No rashes, warm and dry HEAD: Atraumatic. Normocephalic. EYES: Reactive in the right ENT: Nose without bleeding, or drainage, Airway patent. NECK: Trachea midline. Supple CARDIOVASCULAR: Regular rate and rhythm without murmurs, gallops, or rubs. RESPIRATORY: Fair air entry bilaterally. No wheezes, rales, or rhonchi. GASTROINTESTINAL: Abdomen soft, non-tender, nondistended. Positive bowel sounds MUSCULOSKELETAL: Extremities pulses +2, edema +1. Bilateral feet and dressing NEUROLOGICAL: Awake but confused, moves all extremity. Procedures INTUBATION AND VENT A/P Assessment and Plan This is a 47-year-old male with a history of prior stroke who presented from senior living facility by EMS for acute altered mental status. Per EMS reports, he was in his normal state of health last night and then with his reevaluated by the nursing staff and was a GCS of 3 with room air sats of 79%. Of note by the ED physician, the patient had pink frothy sputum on admission to the ER. He was emergently intubated by the emergency department. He has a chest x-ray which demonstrates bilateral infiltrates consistent with pulmonary edema. He has a BNP which is severely elevated at 1300. He has a elevated creatinine suggestive of acute kidney injury with an unknown baseline. Per report he has been treated for an MRSA skin infection. He is afebrile with a normal white count. Critical care medicine is consulted to evaluate manage his acute encephalopathy, multiorgan dysfunction. No additional information is available from the patient due to his severe encephalopathy. SUBJ 11/29: Remains intubated sedated with propofol for vent synchrony. According to RN he did follow commands upper extremities when sedation held. Chest exam reveals bilateral coarse rhonchi, crackles. CXR pending at this time 11/30: remains intubated. cxr with bilateral infiltrates again suggestive of volume overload. 12/01: T-max 100.6. Creatinine and change the patient continues to be positive with fluid, will follow up nephrology's recommendations regarding continued albumin and/Lasix therapy. Hemoglobin stable this a.m. at 7.9. Plan for CT of the abdomen and pelvis for possible source. Stool Hemoccult still pending. Consult ID , appreciate recommendations. Follow-up with podiatry concern for osteomyelitis. Plan for possible I&D bilateral foot ulcers today. 12/02: Late entry note patient seen at 12:45 PM. No acute events overnight. The patient underwent incision and debridement bilateral feet by podiatry today tolerated procedures well. Hemodynamically stable. Creatinine improving. The patient remains on CPAP greater than 8 hours. 12/03: No acute events overnight. The patient tolerated CPAP trials for approximately 8 hours hemodynamically stable. Tolerating tube feeds. 12/04: Tolerated CPAP trials approximately the 8 hours yesterday, on low-dose propofol. Plan to transition to Precedex to facilitate ventilator weaning. Noted chest x-ray slightly improved but pulmonary edema still persists. Patient tolerating tube feeds. 12/05: Late entry note. Patient seen at 7:20 AM. The patient tolerated CPAP trials for approximately 16 hours. Plan for MRI bilateral feet today. Patient has been transitioned to Precedex infusion. Patient noted to have continued elevated blood glucose levels patient transitioned to high dose sliding scale. 12/06: T-max 101.6. Antibiotics changed per ID. MRI showed osteomyelitis left fourth and fifth metatarsal. CPAP trials initiated today patient tolerated CPAP trials approximately 3 hours yesterday. 12/07: Afebrile. Patient continues on CPAP trials today greater than 8 hours on Precedex infusion to facilitate ventilator weaning. Patient's nodding head to yes and no questions following my command. Patient was noted last night he continued to have elevated glucose despite high dose sliding scale regimen, patient placed on Levemir twice daily. 12/08: Late entry note . Patient seen at 1337 . Afebrile. Patient remained on CPAP trials throughout the entire night, greater than 24 hours. Limited SBT obtained, parameters within normal limits. The patient was extubated. He continues on 4 L nasal cannula 6- TRANSFERRED TO OUR SERVICE TODAY STILL SHORT OF BREATH WILL GIVE LASIX GET A CHEST XRAY DW RN AND PT AM LABS 6-4 we will restart tube feeds DW RN AND PT NON-VERBAL ONLY ON NC OXYGEN AT THIS TIME MEDS ADJUSTED BY ID 12/11: Continue current care, Dudley catheter tube feed on, check BMP mag and pus in a.m., monitor temperature and CBC A/P my system: Neurologic: Acute metabolic encephalopathy History of prior CVA MRI-old frontoparietal encephalomalacia, no acute findings EEG-generalized slowing without seizures Frequent neurochecks Propofol for goal RASS -2, Avoid long-acting sedatives. daily sedation vacation Tox screen, UDS positive only for benzodiazepines B12 normal GCS 11T OFF SEDATION Respiratory: Acute hypoxic and hypercarbic respiratory failure Moderate pulmonary edema Vent bundle, Head of bed elevated Nebs every 6 hours scheduled and as needed Continue CPAP trials-now averaging > 24 hours a day. SBT- NIF -25, RR 31, TV 410, cuff leak. Unable to obtain FVC- Planned extubation Wean FiO2 for goal SPO2 greater than 90% TENUOUS BREATHING ADD LASIX CHEST XRAY Cardiovascular: Acute severe congestive heart failure exacerbation, unknown type Mildly Elevated troponin Lasix 80 mg IV 1 given 11/29, now scheduled Lasix 40 every 12 with IV albumin 12/01 2D echo -EF 60-65%, trace TR, mild LAE, mild MVR, No RWMA Patient has severe anemia with a hemoglobin of 5.9 , status post transfusion 2 units of packed cells, continue to monitor 12/02 ASA resumed RESTART COREG Renal: Acute kidney injury superimposed on chronic renal insufficiency with an unknown baseline Likely secondary to venous congestion from CHF Continue Dudley Diuresis as above Renal ultrasound: no obstruction or hydro FENa on admission 3.7% (unknown if on chronic lasix) FEUrea on admission 47.3%- suggestive of intrinsic renal disease. urine eosinophils negative -Nephrology following FEN/GI: Acute intravascular volume overload Diuresis as above Tube feeds with Nepro, minimal residual 12/01 CT of the abdomen and pelvis- Bibasilar consolidating lung infiltrate. Hepatosplenomegaly Calcified adrenal glands. Trace ascites. PEG tube and Dudley catheter in place. Inguinal lymphadenopathy. Calcific arthropathy of the left hip. No acute intestinal abnormality hydronephrosis or suspicious abdominopelvic masses. START NEPRO AGAIN Heme/ID: Severe anemia, likely secondary to chronic disease s/p 2 unit PRBCs on 11/28 Holding anticoagulation until etiology is determined Iron studies: low iron, low TIBC, high ferritin. suggests chronic disease as a cause. Daily CBC Pro calcitonin 1.4 intermediate risk. blood cultures 11/28 GPCs in 2/4 bottles sputum culture 11/28 GNR- ESBL 11/25 ID following Hemoccult negative CT of the abdomen and pelvis Endocrine: Hyperglycemia of critical illness Diabetes Glucose monitoring per ICU protocol, high dose regimen 12/07 Levemir 5 units twice daily added -- SSI Prophylaxis: GI Prophylaxis IV PPI- BID DVT Prophylaxis -- SCDs Heparin SQ reinitiated 12/04 Mary Perez MD Dec 11, 2017 17:07
[2017-12-12] VITALS (19 sets, daily range): BP systolic 124–157; BP diastolic 60–75; PULSE 87–115; RESP 16–37; TEMP 98.4–103.4; O2SAT 95–100
[2017-12-12] MEDS: INSULIN ASPART SUPPLEMENTAL SCALE SQ SCH ×4 (01:12→18:00)
[2017-12-12] MEDS: hydrALAZINE HCL 100 MG TAB PO SCH ×3 (01:13→18:47)
[2017-12-12] MEDS: ACETAMINOPHEN 325 MG TAB PO PRN ×2 (01:13→12:55)
[2017-12-12] MEDS: PANTOPRAZOLE SODIUM 40 MG VIAL IV PUSH SCH ×2 (01:13→12:55)
[2017-12-12] MEDS: CHLORHEXIDINE GLUCONATE 2 % 1 PACK (2 CLOTHS) TOP SCH (03:44)
[2017-12-12] MEDS: MEROPENEM INJ 1,000 MG in SODIUM CHLORIDE 0.9% INJ 100 ML IV SCH ×3 (04:02→20:20)
[2017-12-12] MEDS: FREE WATER PEG SCH ×4 (05:34→18:00)
[2017-12-12 05:53] LABS: BICARBONATE 20.8 MEQ/L (21.0-32.0); CALCIUM 8.6 MG/DL (8.5-10.1); CREATININE 1.57 MG/DL (0.60-1.30); MAGNESIUM 1.9 MG/DL (1.5-2.5); PHOSPHORUS 3.1 MG/DL (2.5-4.9)
[2017-12-12] MEDS ORDERED: methylPREDNISolone SOD SUCC 125 MG/2 ML VIAL IV PUSH ONE (09:00)
[2017-12-12] MEDS: ARTIFICIAL TEARS OPTH SOLN 15 ML BTL EACH EYE SCH ×3 (10:03→18:47)
[2017-12-12] MEDS: CARVEDILOL 12.5 MG TAB PO SCH ×2 (10:03→20:20)
[2017-12-12] MEDS: DOCUSATE SODIUM 50 MG/SENNA 8.6 MG TAB PO SCH ×2 (10:03→20:20)
[2017-12-12] MEDS: SODIUM CHLORIDE 0.9% FLUSH 10 ML FLUSH IV FLUSH SCH ×2 (10:03→20:20)
[2017-12-12] MEDS: FUROSEMIDE 40 MG/4 ML VIAL IV PUSH SCH (10:04)
[2017-12-12] MEDS: ASPIRIN 81 MG CHEW TAB CHEW SCH (10:05)
[2017-12-12] MEDS: SODIUM BICARBONATE 325 MG TAB PO SCH ×2 (10:05→18:47)
[2017-12-12] MEDS: INSULIN DETEMIR 100 UNITS/ML VIAL SQ SCH ×2 (10:06→20:20)
[2017-12-12] MEDS: COLLAGENASE OINT 30 GM TUBE TOPICAL SCH (10:06)
[2017-12-12] MEDS: POTASSIUM CHLORIDE 25 MEQ EFFERVESCENT TAB PO PRN (10:08)
--- NOTE | 2017-12-12 10:09 | HHI.IDPN ---
Subjective Subjective Remarks Patient is a 47-year-old male, who is a resident of the skilled nursing, with history of CVA, brought into the hospital for decreased level of consciousness, decreased oxygen saturation. In the ED he was noted to have some pink frothy sputum. He was emergently intubated. His chest x-ray showed bilateral pulmonary infiltrates consistent with pulmonary edema. 2 blood cultures were done in the emergency room, and they are both growing staph hominis. Sputum culture also is now reported as growing Klebsiella ESBL positive. His chest x- ray has shown some worsening of his infiltrates. He was also found to have acute kidney injury. Patient is being managed for pulmonary edema, as well as sepsis. He has been getting vancomycin as well as Zosyn. He was initially febrile on his first hospital day, but that has improved. Patient's white count has been normal. Patient remains on the respirator. He has good urine output, but his creatinine remains elevated. There is no evidence of obstruction on his renal ultrasound. CT of the abdomen and pelvis are showing chronic changes of encephalomalacia compatible with his prior history of CVA. Infectious disease consultation has been requested to evaluate the patient. Notes reviewed D/W RN Temps up overnight BP ok Has been extubated 12/08 Has a lot of oral secretions On nasal O2 CXR with same consolidation L side Sputum with Kelb ESBL and Pseudomonas BC negative UC negative No central line HAs triplett cath MRI ?L foot with osteo Antibiotics Meropenem Levaquin Zyvox Diflucan Current Medications Medications (Trade) Dose Ordered Sig/Arthur Route Start Time Stop Time Status Last Admin (Brethine Inj) 1 mg UNSCH PRN SQ 11/28/17 05:30 (NS Flush) 2 ml UNSCH PRN IV FLUSH 11/28/17 05:45 12/05/17 08:07 (NS Flush) 2 ml BID IV FLUSH 11/28/17 09:00 12/11/17 07:51 (Tylenol) 650 mg Q6H PRN PO 11/28/17 05:45 12/11/17 08:11 (Tears Naturale Opth Soln) 1 drop TID EACH EYE 11/28/17 09:00 12/11/17 07:51 (Zofran Inj) 4 mg Q6H PRN IV PUSH 11/28/17 05:45 12/09/17 15:48 (Duoneb Neb) 1 ampule Q2HR NEB PRN INH 11/28/17 05:45 12/09/17 20:47 ([facility]) 1 Q361D XX 11/28/17 05:45 (Chlorhexidine 2% Cloth) Taper DAILY@04 TOP 11/29/17 04:00 11/25/18 03:59 12/11/17 03:51 (Chlorhexidine 2% Cloth) 3 pack UNSCH PRN TOP 11/28/17 05:45 (Jessie-Colace) 1 tab BID PO 11/28/17 09:00 12/10/17 20:25 (Milk Of Magnesia Liq) 30 ml Q12H PRN PO 11/28/17 05:45 (Senokot) 17.2 mg Q12H PRN PO 11/28/17 05:45 (Dulcolax Supp) 10 mg DAILY PRN RECTAL 11/28/17 05:45 (Lactulose Liq) 30 ml DAILY PRN PO 11/28/17 05:45 12/01/17 11:49 (D50w (Vial) Inj) 25 ml UNSCH PRN IV PUSH 11/28/17 06:15 (Protonix Inj) 40 mg Q12H IV PUSH 11/28/17 12:00 12/10/17 23:49 (Santyl Oint) 1 applic DAILY TOPICAL 12/01/17 09:00 12/11/17 07:52 (Aspirin Chew) 81 mg DAILY CHEW 12/04/17 09:00 12/11/17 07:51 ([facility] D/C ICU ELECTROLYTE ORDERS... UNSCH PRN .XX 12/04/17 07:00 ([facility]) ICU - CALL ORDERING PHYSIC... UNSCH PRN .XX 12/04/17 07:00 Potassium Chloride 100 ml @ 25 mls/hr UNSCH PRN IV 12/04/17 07:00 (K-Lyte Cl Eff) 50 meq UNSCH PRN PO 12/04/17 07:00 12/04/17 10:09 Potassium Chloride 100 ml @ 50 mls/hr UNSCH PRN IV 12/04/17 07:00 Magnesium Sulfate 4 gm/Sodium Chloride 108 ml @ 54 mls/hr UNSCH PRN IV 12/04/17 07:00 Magnesium Sulfate 2 gm/Sodium Chloride 104 ml @ 52 mls/hr UNSCH PRN IV 12/04/17 07:00 (Mag-Ox) 800 mg UNSCH PRN PO 12/04/17 07:00 Sodium Phosphate 30 mmol/Sodium Chloride 260 ml @ 43.333 mls/ hr UNSCH PRN IV 12/04/17 07:00 (K-Phos) 2,000 mg UNSCH PRN PO 12/04/17 07:00 Potassium Phosphate 30 mmol/ Sodium Chloride 260 ml @ 43.333 mls/ hr UNSCH PRN IV 12/04/17 07:00 (Trandate Inj) 10 mg Q4H PRN IV PUSH 12/04/17 16:30 12/09/17 04:42 (Apresoline Inj) 20 mg Q4H PRN IV PUSH 12/04/17 16:30 12/08/17 03:32 (NovoLOG SUPPLEMENTAL SCALE) 1 Q6H SQ 12/05/17 18:00 12/09/17 12:00 ([place] 5-325 Mg) 1 tab Q6H PRN PEG 12/05/17 18:30 12/07/17 07:40 Dexmedetomidine HCl 1000 mcg/ Sodium Chloride 250 ml @ 4.22 mls/hr TITRATE PRN IV 12/05/17 18:30 12/08/17 08:57 (Apresoline) 100 mg Q8H PO 12/06/17 02:00 12/11/17 02:58 Meropenem 1000 mg/ Sodium Chloride 100 ml @ 200 mls/hr Q8H IV 12/06/17 12:00 12/11/17 03:03 (Levemir Inj) 5 units Q12HR SQ 12/07/17 21:00 12/11/17 07:52 (Lasix Inj) 40 mg DAILY IV PUSH 12/10/17 09:00 12/11/17 07:50 Linezolid 300 ml @ 300 mls/hr Q12H IV 12/09/17 12:00 12/10/17 23:49 Fluconazole/ Sodium Chloride 100 ml @ 100 mls/hr Q24H IV 12/09/17 12:00 12/10/17 11:09 (Lopressor Inj) 5 mg Q6H PRN IV PUSH 12/09/17 13:30 12/10/17 21:40 (Free Water) 200 ml Q6HR PEG 12/09/17 18:00 12/11/17 06:00 (Coreg) 25 mg BID PO 12/10/17 10:30 12/11/17 07:51 (Sodium Bicarbonate) 325 mg BIDPC PO 12/10/17 10:30 12/11/17 07:51 Lines Chest X-Ray 12/09/17 Signed Impressions: CONCLUSION: The patient is status post extubation with worsening atelectasis/consolidation within the left lower lobe and lingula. Chest X-Ray 12/08/17599 Signed Impressions: CONCLUSION: Mild bibasilar areas of consolidation or atelectasis. This appears stable when compared to the most recent chest x-ray. Chest X-Ray 12/06/17599 Signed Impressions: CONCLUSION: Possible slight worsening of pulmonary edema since the prior exam. Chest X-Ray 12/05/17599 Signed Impressions: CONCLUSION: No appreciable change. Foot MRI 12/05/17 Signed Impressions: CONCLUSION: 1. Probable artifact involving the distal portion of the fifth metatarsal on t he T2 sequence could be further characterized with bone scan based on clinical grounds. Otherwise unremarkable. Foot MRI 12/05/17 Signed Impressions: CONCLUSION: 1. Marked enhancement in the subcutaneous tissues in the lateral aspect of the foot. Abnormal areas of bone marrow edema in the fifth metatarsal shaft concer khanh for residual osteomyelitis. There is also edema in the fourth metatarsal h ead concerning for an additional area of osteomyelitis Chest X-Ray 12/04/17 06 Signed Impressions: CONCLUSION: Moderate pulmonary edema is suspected, however there is slight overall improvem ent in aeration of the left lung is the prior exam. Last Impressions Chest X-Ray 12/02/17 06 Signed Impressions: CONCLUSION: No significant change. Left greater than right parenchymal consolidation and sm all left pleural effusion again noted. Abdomen/Pelvis CT 12/01/17 Signed Impressions: CONCLUSION: 1. Bibasilar consolidating lung infiltrate 2. Hepatosplenomegaly 3. Calcified adrenal glands. 4. Trace ascites. 5. PEG tube and Triplett catheter in place. 6. Inguinal lymphadenopathy. 7. Calcific arthropathy of the left hip. 8. No acute intestinal abnormality hydronephrosis or suspicious abdominopelvic masses. Renal Ultrasound 11/28/17 Signed Impressions: CONCLUSION: 1. Echogenic kidneys consistent with medical renal disease. 2. No obstructive uropathy. Head CT 11/28/17 Signed Impressions: CONCLUSION: 1. No acute hemorrhage or mass effect. 2. Large area of encephalomalacia involving the right frontal and parietal lob e. 3. Chronic sinusitis. Brain MRI 11/28/17 Signed Impressions: CONCLUSION: 1. Large area of encephalomalacia in the right medial frontal parietal high co nvexities extending to the vertex. 2. No evidence for acute abnormality. Specifically, no acute infarction, hemor rhage or hydrocephalus. 3. Paranasal sinus mucosal disease. Past Medical History GENERAL: awakens easily, responding, on nasal O2 SKIN: Warm and dry. No generalized rash HEAD: Atraumatic. Normocephalic. No temporal wasting, or tenderness. EYES: Pale conjunctiva. No petechia or hemorrhage. Pupils equal, round and reactive to light. No scleral icterus. No injection or drainage. EARS, NOSE AND THROAT: Nose without bleeding or purulent nasal discharge. He is orally intubated. NECK: Trachea midline. Supple and not tender, no meningeal signs CARDIOVASCULAR: Regular rate and rhythm. RESPIRATORY: Bilateral diffuse rhonchi ABDOMEN: Soft, mildly distended, no reaction to palpation, no guarding. Bowel sounds present and normoactive. EXTREMITIES: No clubbing, cyanosis. Has edema of both hands. No pedal edema. Dressings to both intact. Well perfused and warm. NEUROLOGICAL: Awakens easily, following PSYCHIATRIC: CAlm LINE: No evidence of infection : Triplett catheter in place, urine looks clear Allergies: Coded Allergies: No Known Allergies (Verified Allergy, Severe, 11/03/06) Objective . Vital Signs Date Time Temp Pulse Resp B/P (MAP) Pulse Ox O2 Delivery O2 Flow Rate FiO2 12/12/17 08:06 100 Nasal Cannula 3.00 12/12/17 06:00 107 12/12/17 04:00 101.9 107 28 129/62 (84) 97 12/12/17 04:00 107 12/12/17 02:00 111 12/12/17 00:00 103.4 115 28 138/75 (96) 96 12/12/17 00:00 113 12/11/17 22:00 104 12/11/17 20:00 100.8 109 22 120/71 (87) 98 12/11/17 20:00 109 12/11/17 19:00 99 Nasal Cannula 3.00 12/11/17 18:00 107 12/11/17 16:00 107 12/11/17 16:00 100.8 107 32 135/70 (91) 94 12/11/17 14:00 100 12/11/17 12:00 96 12/11/17 12:00 99.3 96 25 115/59 (77) 99 . Laboratory Tests Test 12/11/17 05:02 White Blood Count 10.1 TH/MM3 Red Blood Count 2.72 MIL/MM3 Hemoglobin 8.3 GM/DL Hematocrit 24.6 % Mean Corpuscular Volume 90.5 FL Mean Corpuscular Hemoglobin 30.4 PG Mean Corpuscular Hemoglobin Concent 33.6 % Red Cell Distribution Width 14.0 % Platelet Count 333 TH/MM3 Mean Platelet Volume 9.0 FL Neutrophils (%) (Auto) 75.1 % Lymphocytes (%) (Auto) 15.2 % Monocytes (%) (Auto) 6.9 % Eosinophils (%) (Auto) 2.5 % Basophils (%) (Auto) 0.3 % Neutrophils # (Auto) 7.6 TH/MM3 Lymphocytes # (Auto) 1.5 TH/MM3 Monocytes # (Auto) 0.7 TH/MM3 Eosinophils # (Auto) 0.2 TH/MM3 Basophils # (Auto) 0.0 TH/MM3 CBC Comment DIFF FINAL Differential Comment Laboratory Tests Test 12/11/17 05:02 12/12/17 03:35 Blood Urea Nitrogen 50 MG/DL 55 MG/DL Creatinine 1.55 MG/DL 1.57 MG/DL Random Glucose 106 MG/DL 178 MG/DL Total Protein 7.9 GM/DL Albumin 2.2 GM/DL Calcium Level 9.2 MG/DL 8.6 MG/DL Phosphorus Level 3.3 MG/DL 3.1 MG/DL Magnesium Level 2.1 MG/DL 1.9 MG/DL Alkaline Phosphatase 99 U/L Aspartate Amino Transf (AST/SGOT) 35 U/L Alanine Aminotransferase (ALT/SGPT) 32 U/L Total Bilirubin 0.4 MG/DL Sodium Level 150 MEQ/L 151 MEQ/L Potassium Level 3.7 MEQ/L 3.4 MEQ/L Chloride Level 118 MEQ/L 119 MEQ/L Carbon Dioxide Level 18.9 MEQ/L 20.8 MEQ/L Anion Gap 13 MEQ/L 11 MEQ/L Estimat Glomerular Filtration Rate 59 ML/MIN 58 ML/MIN Microbiology Date/Time Source Procedure Growth Status 12/09/17 12:26 Blood Peripheral Aerobic Blood Culture - Preliminary NO GROWTH IN 2 DAYS Resulted 12/09/17 12:26 Blood Peripheral Anaerobic Blood Culture - Preliminary NO GROWTH IN 2 DAYS Resulted 12/09/17 12:15 Blood Peripheral Aerobic Blood Culture - Preliminary NO GROWTH IN 2 DAYS Resulted 12/09/17 12:15 Blood Peripheral Anaerobic Blood Culture - Preliminary NO GROWTH IN 2 DAYS Resulted 12/09/17 16:00 Urine Catheterized Urine Urine Culture - Final NO GROWTH IN 48 HOURS. Complete Imaging Last 72 hours Impressions Chest X-Ray 12/11/17 Signed Impressions: CONCLUSION: Dense infiltrate left lung base. Last Impressions Chest X-Ray 12/02/17 0600 Signed Impressions: CONCLUSION: No significant change. Left greater than right parenchymal consolidation and sm all left pleural effusion again noted. Abdomen/Pelvis CT 12/01/17 Signed Impressions: CONCLUSION: 1. Bibasilar consolidating lung infiltrate 2. Hepatosplenomegaly 3. Calcified adrenal glands. 4. Trace ascites. 5. PEG tube and Triplett catheter in place. 6. Inguinal lymphadenopathy. 7. Calcific arthropathy of the left hip. 8. No acute intestinal abnormality hydronephrosis or suspicious abdominopelvic masses. Renal Ultrasound 11/28/17 Signed Impressions: CONCLUSION: 1. Echogenic kidneys consistent with medical renal disease. 2. No obstructive uropathy. Head CT 11/28/17 Signed Impressions: CONCLUSION: 1. No acute hemorrhage or mass effect. 2. Large area of encephalomalacia involving the right frontal and parietal lob e. 3. Chronic sinusitis. Brain MRI 11/28/17 Signed Impressions: CONCLUSION: 1. Large area of encephalomalacia in the right medial frontal parietal high co nvexities extending to the vertex. 2. No evidence for acute abnormality. Specifically, no acute infarction, hemor rhage or hydrocephalus. 3. Paranasal sinus mucosal disease. Physical Exam GENERAL: awake, focusing, follows some commands, on nasal O2, not in respiratory distress. SKIN: Cool and dry. No generalized rash HEAD: Atraumatic. Normocephalic. No temporal wasting, or tenderness. EYES: Pale conjunctiva. No petechia or hemorrhage. Pupils equal, round and reactive to light. No scleral icterus. No injection or drainage. EARS, NOSE AND THROAT: Nose without bleeding or purulent nasal discharge. Drooling clear secretions NECK: Trachea midline. Supple and not tender, no meningeal signs CARDIOVASCULAR: Regular rate and rhythm. RESPIRATORY: Decreased breath souinds bilaterally ABDOMEN: Soft, mildly distended, no reaction to palpation, no guarding. Bowel sounds present and normoactive. EXTREMITIES: No clubbing, cyanosis. Has edema of both hands. No pedal edema. Has dressings to both feet, dry and intact. Well perfused and warm. NEUROLOGICAL: Following some commands LINE: No evidence of infection : Triplett catheter in place, urine looks clear Assessment & Plan Remarks IMPRESSION Klebsiella ESBL+ in sputum with bilateral infiltrates - has CHF and with PNA (?Aspiration, came in with decreased LOC) CHF, EF good on his echo Respiratory failure, extubated 6/ - CXR worsening, ?due to atelectasis due to poor respiratory effort New HCAP, Kleb and Pseudomonas Possible Osteo L foot - has chronic ulcers, both feet, debrided by podiatry at bedside Acute kidney injury, improving (+) BC with Staph hominis, ?source Hx CVA SNF resident Fevers, ?due to lung, atelectasis, vs other etiology RECOMMENDATION Continue Meropenem ?May need to consider bronch if he continues to be febrile Follow new C/S Follow temps Monitor progress Sharlene Kim MD Dec 12, 2017 10:09
--- NOTE | 2017-12-12 13:54 | HHI.PR ---
Subjective Remarks 47-year-old male admitted for respiratory failure and anemia. Today he is tachypneic with tachycardia. He appears uncomfortable, has trouble speaking. Objective Vitals Vital Signs Date Time Temp Pulse Resp B/P (MAP) Pulse Ox O2 Delivery O2 Flow Rate FiO2 12/12/17 08:06 100 Nasal Cannula 3.00 12/12/17 06:00 107 12/12/17 04:00 101.9 107 28 129/62 (84) 97 12/12/17 04:00 107 12/12/17 02:00 111 12/12/17 00:00 103.4 115 28 138/75 (96) 96 12/12/17 00:00 113 12/11/17 22:00 104 12/11/17 20:00 100.8 109 22 120/71 (87) 98 12/11/17 20:00 109 12/11/17 19:00 99 Nasal Cannula 3.00 12/11/17 18:00 107 12/11/17 16:00 107 12/11/17 16:00 100.8 107 32 135/70 (91) 94 12/11/17 14:00 100 I/O 12/11/17 12/11/17 12/11/17 12/12/17 12/12/17 12/12/17 06:59 14:59 22:59 06:59 14:59 22:59 Intake Total 1177 ml 100 ml 1065 ml 936 ml Output Total 450 ml 1100 ml Balance 727 ml 100 ml -35 ml 936 ml Intake IV Total 400 ml 100 ml Tube Feeding 317 ml 605 ml 536 ml Other 460 ml 460 ml 400 ml Output Urine Total 450 ml 1100 ml # Voids 3 # Bowel Movements 1 1 1 Result Diagram: 12/11/17 0502 12/12/17 0335 Objective Remarks GENERAL: Thin, tired appearing patient SKIN: Warm and dry. HEAD: Normocephalic. EYES: No scleral icterus. No injection or drainage. NECK: Supple, trachea midline. No JVD or lymphadenopathy. CARDIOVASCULAR: Sinus tachycardia, without murmurs, gallops, or rubs. RESPIRATORY: Tachypnea, congestive sounds in anterior lung ruiz. No accessory muscle use. GASTROINTESTINAL: Abdomen soft, non-tender, nondistended. EXTREMITIES: No cyanosis, or edema. NEUROLOGICAL: Awake, alert, and oriented x 3. Non-focal. A/P Problem List: (1) Pneumonia ICD Code: J18.9 - Pneumonia, unspecified organism (2) CHF (congestive heart failure) ICD Code: I50.9 - Heart failure, unspecified (3) CKD (chronic kidney disease) stage 3, GFR 30-59 ml/min ICD Code: N18.3 - Chronic kidney disease, stage 3 (moderate) (4) Acute renal failure ICD Code: N17.9 - Acute kidney failure, unspecified (5) Diabetes ICD Code: E11.9 - Type 2 diabetes mellitus without complications Status: Chronic Assessment and Plan Pneumonia, respiratory failure Intubated on 11/28/2017, extubated on 12/11/2017 Sputum culture had ESBL, blood cultures had gram-negative cocci Completed treatment with vancomycin and ertapenem Still tachypneic, still has congestion evident on exam Continue duo nebs as needed, continue oxygen Metabolic encephalopathy,h/o CVA MRI shows old frontoparietal encephalomalacia EEG shows generalized slowing h/o CHF Reports of volume overload during this hospitalization Continue home dose of Coreg Give Lasix as needed Acute on chronic renal failure No obstruction or hydronephrosis on renal ultrasound Patient received 2 units of packed red blood cells during this stay Creatinines continue to improve slowly Consider effect of Lasix Appreciate nephrology following Type 2 diabetes Sliding scale insulin coverage with Accu-Cheks Diabetic diet DVT Prophylaxis Heparin Prabuh Robles MD Dec 12, 2017 13:53
[2017-12-13] VITALS (11 sets, daily range): BP systolic 117–133; BP diastolic 65–69; PULSE 83–93; RESP 13–23; TEMP 97.9–98.6; O2SAT 94–100
[2017-12-13] MEDS: PANTOPRAZOLE SODIUM 40 MG VIAL IV PUSH SCH ×2 (00:21→11:12)
[2017-12-13] MEDS: hydrALAZINE HCL 100 MG TAB PO SCH ×3 (02:56→18:31)
[2017-12-13 03:54] LABS: AUTOMATED NEUTROPHIL # 4.9 TH/MM3 (1.8-7.7); BASOPHIL % 0.2 % (0.0-2.0); HEMATOCRIT 22.8 % (39.0-51.0); HEMOGLOBIN 7.6 GM/DL (13.0-17.0); LYMPH % 13.2 % (9.0-44.0); LYMPHOCYTE # 0.8 TH/MM3 (1.0-4.8); MEAN CORPUSCULAR HEMOGLOBIN 30.3 PG (27.0-34.0); MEAN CORPUSCULAR HGB CONC 33.3 % (32.0-36.0); MEAN PLATELET VOLUME 9.3 FL (7.0-11.0); MONO % 3.6 % (0.0-8.0); MONOCYTE # 0.2 TH/MM3 (0-0.9); PLATELET COUNT 307 TH/MM3 (150-450); RED CELL DISTRIBUTION WIDTH 13.7 % (11.6-17.2); WHITE BLOOD COUNT 5.9 TH/MM3 (4.0-11.0)
[2017-12-13] MEDS: CHLORHEXIDINE GLUCONATE 2 % 1 PACK (2 CLOTHS) TOP SCH (04:00)
[2017-12-13 04:36] LABS: BICARBONATE 21.8 MEQ/L (21.0-32.0); CALCIUM 8.7 MG/DL (8.5-10.1); CREATININE 1.6 MG/DL (0.60-1.30)
--- NOTE | 2017-12-13 04:56 | RADRPT ---
EXAM DATE: 12/13/2017 4:47 AM EDT AGE/SEX: 47 years / Male INDICATIONS: Shortness of breath, possible pneumonia. CLINICAL DATA: This is the patient's subsequent encounter. Patient reports that signs and symptoms h ave been present for 1 week and indicates a pain score of Nonresponsive. MEDICAL/SURGICAL HISTORY: Stroke. Cardiovascular disease. Hypertension. CABG. [place] [facility] [place]. . FINDINGS: Postoperative median sternotomy. Previous dense consolidation left lung base has improved since December 11. There is a slight increase in right basilar airspace disease. No pneumothorax. Probable trace pleu ral fluid. CONCLUSION: Slight improvement in left basilar consolidation. New right basilar airspace disease. Trace pleural f luid. Electronically signed by: Rex Gamez MD 12/13/2017 4:55 AM EDT
[2017-12-13] MEDS: MEROPENEM INJ 1,000 MG in SODIUM CHLORIDE 0.9% INJ 100 ML IV SCH ×3 (04:57→21:03)
[2017-12-13] MEDS: INSULIN ASPART SUPPLEMENTAL SCALE SQ SCH ×4 (05:56→18:32)
[2017-12-13] MEDS: FREE WATER PEG SCH ×4 (05:57→18:31)
[2017-12-13] MEDS: ASPIRIN 81 MG CHEW TAB CHEW SCH (08:36)
[2017-12-13] MEDS: CARVEDILOL 12.5 MG TAB PO SCH ×2 (08:36→21:03)
[2017-12-13] MEDS: FUROSEMIDE 40 MG/4 ML VIAL IV PUSH SCH (08:36)
[2017-12-13] MEDS: DOCUSATE SODIUM 50 MG/SENNA 8.6 MG TAB PO SCH ×2 (08:36→21:00)
[2017-12-13] MEDS: SODIUM BICARBONATE 325 MG TAB PO SCH ×2 (08:36→18:31)
[2017-12-13] MEDS: COLLAGENASE OINT 30 GM TUBE TOPICAL SCH (08:37)
[2017-12-13] MEDS: ARTIFICIAL TEARS OPTH SOLN 15 ML BTL EACH EYE SCH ×3 (08:37→18:31)
[2017-12-13] MEDS: INSULIN DETEMIR 100 UNITS/ML VIAL SQ SCH ×2 (08:37→21:03)
[2017-12-13] MEDS: SODIUM CHLORIDE 0.9% FLUSH 10 ML FLUSH IV FLUSH SCH ×2 (12:21→21:04)
--- NOTE | 2017-12-13 12:39 | HHI.PR ---
Subjective Remarks Patient appears more comfortable today, his tachypnea and tachycardia are gone. He is able to whisper a few words. Objective Vitals Vital Signs Date Time Temp Pulse Resp B/P (MAP) Pulse Ox O2 Delivery O2 Flow Rate FiO2 12/13/17 12:00 100 45 12/13/17 08:20 100 Nasal Cannula 3.00 12/13/17 08:00 98.3 88 22 133/65 (87) 100 12/13/17 07:00 100 Nasal Cannula 3.00 12/13/17 06:00 89 12/13/17 04:00 98.6 87 13 122/69 (86) 100 12/13/17 04:00 87 12/13/17 02:00 85 12/13/17 00:00 98.1 85 18 121/68 (85) 99 12/13/17 00:00 85 12/12/17 22:00 89 12/12/17 20:13 100 Nasal Cannula 3.00 12/12/17 20:00 90 12/12/17 20:00 98.4 90 16 133/75 (94) 100 12/12/17 19:00 87 12/12/17 19:00 95 Nasal Cannula 3.00 12/12/17 18:00 90 12/12/17 16:00 96 12/12/17 16:00 99.0 96 31 124/67 (86) 95 12/12/17 15:00 96 12/12/17 15:00 96 23 128/63 (84) 95 12/12/17 14:00 97 12/12/17 14:00 97 34 131/60 (83) 95 12/12/17 13:00 97 12/12/17 13:00 97 33 130/62 (84) 99 I/O 12/12/17 12/12/17 12/12/17 12/13/17 12/13/17 12/13/17 06:59 14:59 22:59 06:59 14:59 22:59 Intake Total 936 ml 1142 ml 1022 ml Balance 936 ml 1142 ml 1022 ml Intake IV Total 100 ml 100 ml Tube Feeding 536 ml 522 ml 522 ml Other 400 ml 520 ml 400 ml # Voids 3 3 3 # Bowel Movements 1 2 1 Result Diagram: 12/13/17 0306 12/13/17 0306 Objective Remarks GENERAL: Thin, tired appearing patient SKIN: Warm and dry. HEAD: Normocephalic. EYES: No scleral icterus. No injection or drainage. NECK: Supple, trachea midline. No JVD or lymphadenopathy. CARDIOVASCULAR: Sinus rhythm, without murmurs, gallops, or rubs. RESPIRATORY: congestive sounds in anterior lung ruiz. No accessory muscle use. GASTROINTESTINAL: Abdomen soft, non-tender, nondistended. EXTREMITIES: No cyanosis, or edema. NEUROLOGICAL: Awake, alert, and oriented x 3. Non-focal. A/P Problem List: (1) Pneumonia ICD Code: J18.9 - Pneumonia, unspecified organism (2) CHF (congestive heart failure) ICD Code: I50.9 - Heart failure, unspecified (3) CKD (chronic kidney disease) stage 3, GFR 30-59 ml/min ICD Code: N18.3 - Chronic kidney disease, stage 3 (moderate) (4) Acute renal failure ICD Code: N17.9 - Acute kidney failure, unspecified (5) Diabetes ICD Code: E11.9 - Type 2 diabetes mellitus without complications Status: Chronic Assessment and Plan Pneumonia, respiratory failure Intubated on 11/28/2017, extubated on 12/11/2017 Sputum culture had ESBL, blood cultures had gram-negative cocci Completed treatment with vancomycin and ertapenem Continue duo nebs as needed, continue oxygen Patient is breathing comfortably today on nasal cannula, appropriate for transfer to [facility] Metabolic encephalopathy,h/o CVA MRI shows old frontoparietal encephalomalacia EEG shows generalized slowing h/o CHF Reports of volume overload during this hospitalization Continue home dose of Coreg Give Lasix as needed Acute on chronic renal failure No obstruction or hydronephrosis on renal ultrasound Patient received 2 units of packed red blood cells during this stay Creatinines continue to improve slowly Consider effect of Lasix Appreciate nephrology following Type 2 diabetes Sliding scale insulin coverage with Accu-Cheks Diabetic diet DVT Prophylaxis Heparin Prabhu Robles MD Dec 13, 2017 12:38
--- NOTE | 2017-12-13 13:02 | HHI.IDPN ---
Subjective Subjective Remarks Patient is a 47-year-old male, who is a resident of the [facility], with history of CVA, brought into the hospital for decreased level of consciousness, decreased oxygen saturation. In the ED he was noted to have some pink frothy sputum. He was emergently intubated. His chest x-ray showed bilateral pulmonary infiltrates consistent with pulmonary edema. 2 blood cultures were done in the emergency room, and they are both growing staph hominis. Sputum culture also is now reported as growing Klebsiella ESBL positive. His chest x- ray has shown some worsening of his infiltrates. He was also found to have acute kidney injury. Patient is being managed for pulmonary edema, as well as sepsis. He has been getting vancomycin as well as Zosyn. He was initially febrile on his first hospital day, but that has improved. Patient's white count has been normal. Patient remains on the respirator. He has good urine output, but his creatinine remains elevated. There is no evidence of obstruction on his renal ultrasound. CT of the abdomen and pelvis are showing chronic changes of encephalomalacia compatible with his prior history of CVA. Infectious disease consultation has been requested to evaluate the patient. Notes reviewed Temps better Good sats on nasal O2 Breathing is better CXR with some improvement Sputum with Kelb ESBL and Pseudomonas BC negative UC negative No central line HAs triplett cath MRI ?L foot with osteo Antibiotics Meropenem Current Medications Medications (Trade) Dose Ordered Sig/Arthur Route Start Time Stop Time Status Last Admin (Brethine Inj) 1 mg UNSCH PRN SQ 11/28/17 05:30 (NS Flush) 2 ml UNSCH PRN IV FLUSH 11/28/17 05:45 12/05/17 08:07 (NS Flush) 2 ml BID IV FLUSH 11/28/17 09:00 12/13/17 12:21 (Tylenol) 650 mg Q6H PRN PO 11/28/17 05:45 12/12/17 12:55 (Tears Naturale Opth Soln) 1 drop TID EACH EYE 11/28/17 09:00 12/13/17 12:22 (Zofran Inj) 4 mg Q6H PRN IV PUSH 11/28/17 05:45 12/09/17 15:48 (Duoneb Neb) 1 ampule Q2HR NEB PRN INH 11/28/17 05:45 12/09/17 20:47 ([facility] [place] [facility] Nursing Information) 1 Q361D XX 11/28/17 05:45 (Chlorhexidine 2% Cloth) Taper DAILY@04 TOP 11/29/17 04:00 11/25/18 03:59 12/12/17 03:44 (Chlorhexidine 2% Cloth) 3 pack UNSCH PRN TOP 11/28/17 05:45 (Jessie-Colace) 1 tab BID PO 11/28/17 09:00 12/12/17 10:03 (Milk Of Magnesia Liq) 30 ml Q12H PRN PO 11/28/17 05:45 (Senokot) 17.2 mg Q12H PRN PO 11/28/17 05:45 (Dulcolax Supp) 10 mg DAILY PRN RECTAL 11/28/17 05:45 (Lactulose Liq) 30 ml DAILY PRN PO 11/28/17 05:45 12/01/17 11:49 (D50w (Vial) Inj) 25 ml UNSCH PRN IV PUSH 11/28/17 06:15 (Protonix Inj) 40 mg Q12H IV PUSH 11/28/17 12:00 12/13/17 11:12 (Santyl Oint) 1 applic DAILY TOPICAL 12/01/17 09:00 12/13/17 08:37 (Aspirin Chew) 81 mg DAILY CHEW 12/04/17 09:00 12/13/17 08:36 ([facility] Nursing Information) D/C ICU ELECTROLYTE ORDERS... UNSCH PRN .XX 12/04/17 07:00 ([facility] Nursing Information) ICU - CALL ORDERING PHYSIC... UNSCH PRN .XX 12/04/17 07:00 Potassium Chloride 100 ml @ 25 mls/hr UNSCH PRN IV 12/04/17 07:00 (K-Lyte Cl Eff) 50 meq UNSCH PRN PO 12/04/17 07:00 12/12/17 10:08 Potassium Chloride 100 ml @ 50 mls/hr UNSCH PRN IV 12/04/17 07:00 Magnesium Sulfate 4 gm/Sodium Chloride 108 ml @ 54 mls/hr UNSCH PRN IV 12/04/17 07:00 Magnesium Sulfate 2 gm/Sodium Chloride 104 ml @ 52 mls/hr UNSCH PRN IV 12/04/17 07:00 (Mag-Ox) 800 mg UNSCH PRN PO 12/04/17 07:00 Sodium Phosphate 30 mmol/Sodium Chloride 260 ml @ 43.333 mls/ hr UNSCH PRN IV 12/04/17 07:00 (K-Phos) 2,000 mg UNSCH PRN PO 12/04/17 07:00 Potassium Phosphate 30 mmol/ Sodium Chloride 260 ml @ 43.333 mls/ hr UNSCH PRN IV 12/04/17 07:00 (Trandate Inj) 10 mg Q4H PRN IV PUSH 12/04/17 16:30 12/09/17 04:42 (Apresoline Inj) 20 mg Q4H PRN IV PUSH 12/04/17 16:30 12/08/17 03:32 (NovoLOG SUPPLEMENTAL SCALE) 1 Q6H SQ 12/05/17 18:00 12/13/17 12:22 ([place] 5-325 Mg) 1 tab Q6H PRN PEG 12/05/17 18:30 12/07/17 07:40 Dexmedetomidine HCl 1000 mcg/ Sodium Chloride 250 ml @ 4.22 mls/hr TITRATE PRN IV 12/05/17 18:30 12/08/17 08:57 (Apresoline) 100 mg Q8H PO 12/06/17 02:00 12/13/17 11:12 Meropenem 1000 mg/ Sodium Chloride 100 ml @ 200 mls/hr Q8H IV 12/06/17 12:00 12/13/17 12:21 (Levemir Inj) 5 units Q12HR SQ 12/07/17 21:00 12/13/17 08:37 (Lasix Inj) 40 mg DAILY IV PUSH 12/10/17 09:00 12/13/17 08:36 (Lopressor Inj) 5 mg Q6H PRN IV PUSH 12/09/17 13:30 12/10/17 21:40 (Free Water) 200 ml Q6HR PEG 12/09/17 18:00 12/13/17 12:22 (Coreg) 25 mg BID PO 12/10/17 10:30 12/13/17 08:36 (Sodium Bicarbonate) 325 mg BIDPC PO 12/10/17 10:30 12/13/17 08:36 Lines Chest X-Ray 12/09/17 0000 Signed Impressions: CONCLUSION: The patient is status post extubation with worsening atelectasis/consolidation within the left lower lobe and lingula. Chest X-Ray 12/08/17599 Signed Impressions: CONCLUSION: Mild bibasilar areas of consolidation or atelectasis. This appears stable when compared to the most recent chest x-ray. Chest X-Ray 12/06/17599 Signed Impressions: CONCLUSION: Possible slight worsening of pulmonary edema since the prior exam. Chest X-Ray 12/05/17599 Signed Impressions: CONCLUSION: No appreciable change. Foot MRI 12/05/17 Signed Impressions: CONCLUSION: 1. Probable artifact involving the distal portion of the fifth metatarsal on t he T2 sequence could be further characterized with bone scan based on clinical grounds. Otherwise unremarkable. Foot MRI 12/05/17 Signed Impressions: CONCLUSION: 1. Marked enhancement in the subcutaneous tissues in the lateral aspect of the foot. Abnormal areas of bone marrow edema in the fifth metatarsal shaft concer khanh for residual osteomyelitis. There is also edema in the fourth metatarsal h ead concerning for an additional area of osteomyelitis Chest X-Ray 12/04/17599 Signed Impressions: CONCLUSION: Moderate pulmonary edema is suspected, however there is slight overall improvem ent in aeration of the left lung is the prior exam. Last Impressions Chest X-Ray 12/02/17599 Signed Impressions: CONCLUSION: No significant change. Left greater than right parenchymal consolidation and sm all left pleural effusion again noted. Abdomen/Pelvis CT 12/01/17 Signed Impressions: CONCLUSION: 1. Bibasilar consolidating lung infiltrate 2. Hepatosplenomegaly 3. Calcified adrenal glands. 4. Trace ascites. 5. PEG tube and Triplett catheter in place. 6. Inguinal lymphadenopathy. 7. Calcific arthropathy of the left hip. 8. No acute intestinal abnormality hydronephrosis or suspicious abdominopelvic masses. Renal Ultrasound 11/28/17 Signed Impressions: CONCLUSION: 1. Echogenic kidneys consistent with medical renal disease. 2. No obstructive uropathy. Head CT 11/28/17 Signed Impressions: CONCLUSION: 1. No acute hemorrhage or mass effect. 2. Large area of encephalomalacia involving the right frontal and parietal lob e. 3. Chronic sinusitis. Brain MRI 11/28/17 Signed Impressions: CONCLUSION: 1. Large area of encephalomalacia in the right medial frontal parietal high co nvexities extending to the vertex. 2. No evidence for acute abnormality. Specifically, no acute infarction, hemor rhage or hydrocephalus. 3. Paranasal sinus mucosal disease. Past Medical History GENERAL: awakens easily, responding, on nasal O2 SKIN: Warm and dry. No generalized rash HEAD: Atraumatic. Normocephalic. No temporal wasting, or tenderness. EYES: Pale conjunctiva. No petechia or hemorrhage. Pupils equal, round and reactive to light. No scleral icterus. No injection or drainage. EARS, NOSE AND THROAT: Nose without bleeding or purulent nasal discharge. He is orally intubated. NECK: Trachea midline. Supple and not tender, no meningeal signs CARDIOVASCULAR: Regular rate and rhythm. RESPIRATORY: Bilateral diffuse rhonchi ABDOMEN: Soft, mildly distended, no reaction to palpation, no guarding. Bowel sounds present and normoactive. EXTREMITIES: No clubbing, cyanosis. Has edema of both hands. No pedal edema. Dressings to both intact. Well perfused and warm. NEUROLOGICAL: Awakens easily, following PSYCHIATRIC: CAlm LINE: No evidence of infection : Triplett catheter in place, urine looks clear Allergies: Coded Allergies: No Known Allergies (Verified Allergy, Severe, 11/03/06) Objective . Vital Signs Date Time Temp Pulse Resp B/P (MAP) Pulse Ox O2 Delivery O2 Flow Rate FiO2 12/13/17 12:00 100 45 12/13/17 08:20 100 Nasal Cannula 3.00 12/13/17 08:00 98.3 88 22 133/65 (87) 100 12/13/17 07:00 100 Nasal Cannula 3.00 12/13/17 06:00 89 12/13/17 04:00 98.6 87 13 122/69 (86) 100 12/13/17 04:00 87 12/13/17 02:00 85 12/13/17 00:00 98.1 85 18 121/68 (85) 99 12/13/17 00:00 85 12/12/17 22:00 89 12/12/17 20:13 100 Nasal Cannula 3.00 12/12/17 20:00 90 12/12/17 20:00 98.4 90 16 133/75 (94) 100 12/12/17 19:00 87 12/12/17 19:00 95 Nasal Cannula 3.00 12/12/17 18:00 90 12/12/17 16:00 96 12/12/17 16:00 99.0 96 31 124/67 (86) 95 12/12/17 15:00 96 12/12/17 15:00 96 23 128/63 (84) 95 12/12/17 14:00 97 12/12/17 14:00 97 34 131/60 (83) 95 12/12/17 13:00 97 12/12/17 13:00 97 33 130/62 (84) 99 . Laboratory Tests Test 12/13/17 03:06 White Blood Count 5.9 TH/MM3 Red Blood Count 2.50 MIL/MM3 Hemoglobin 7.6 GM/DL Hematocrit 22.8 % Mean Corpuscular Volume 91.0 FL Mean Corpuscular Hemoglobin 30.3 PG Mean Corpuscular Hemoglobin Concent 33.3 % Red Cell Distribution Width 13.7 % Platelet Count 307 TH/MM3 Mean Platelet Volume 9.3 FL Neutrophils (%) (Auto) 83.0 % Lymphocytes (%) (Auto) 13.2 % Monocytes (%) (Auto) 3.6 % Eosinophils (%) (Auto) 0.0 % Basophils (%) (Auto) 0.2 % Neutrophils # (Auto) 4.9 TH/MM3 Lymphocytes # (Auto) 0.8 TH/MM3 Monocytes # (Auto) 0.2 TH/MM3 Eosinophils # (Auto) 0.0 TH/MM3 Basophils # (Auto) 0.0 TH/MM3 CBC Comment DIFF FINAL Differential Comment Laboratory Tests Test 12/12/17 03:35 12/13/17 03:06 Blood Urea Nitrogen 55 MG/DL 75 MG/DL Creatinine 1.57 MG/DL 1.60 MG/DL Random Glucose 178 MG/DL 253 MG/DL Calcium Level 8.6 MG/DL 8.7 MG/DL Phosphorus Level 3.1 MG/DL Magnesium Level 1.9 MG/DL Sodium Level 151 MEQ/L 151 MEQ/L Potassium Level 3.4 MEQ/L 4.3 MEQ/L Chloride Level 119 MEQ/L 119 MEQ/L Carbon Dioxide Level 20.8 MEQ/L 21.8 MEQ/L Anion Gap 11 MEQ/L 10 MEQ/L Estimat Glomerular Filtration Rate 58 ML/MIN 56 ML/MIN Imaging Last 72 hours Impressions Chest X-Ray 12/11/17 Signed Impressions: CONCLUSION: Dense infiltrate left lung base. Last Impressions Chest X-Ray 12/02/17 0600 Signed Impressions: CONCLUSION: No significant change. Left greater than right parenchymal consolidation and sm all left pleural effusion again noted. Abdomen/Pelvis CT 12/01/17 Signed Impressions: CONCLUSION: 1. Bibasilar consolidating lung infiltrate 2. Hepatosplenomegaly 3. Calcified adrenal glands. 4. Trace ascites. 5. PEG tube and Triplett catheter in place. 6. Inguinal lymphadenopathy. 7. Calcific arthropathy of the left hip. 8. No acute intestinal abnormality hydronephrosis or suspicious abdominopelvic masses. Renal Ultrasound 11/28/17 Signed Impressions: CONCLUSION: 1. Echogenic kidneys consistent with medical renal disease. 2. No obstructive uropathy. Head CT 11/28/17 Signed Impressions: CONCLUSION: 1. No acute hemorrhage or mass effect. 2. Large area of encephalomalacia involving the right frontal and parietal lob e. 3. Chronic sinusitis. Brain MRI 11/28/17 Signed Impressions: CONCLUSION: 1. Large area of encephalomalacia in the right medial frontal parietal high co nvexities extending to the vertex. 2. No evidence for acute abnormality. Specifically, no acute infarction, hemor rhage or hydrocephalus. 3. Paranasal sinus mucosal disease. Physical Exam GENERAL: awake, focusing, follows some commands, on nasal O2, not in respiratory distress. SKIN: Cool and dry. No generalized rash HEAD: Atraumatic. Normocephalic. No temporal wasting, or tenderness. EYES: Pale conjunctiva. No petechia or hemorrhage. Pupils equal, round and reactive to light. No scleral icterus. No injection or drainage. EARS, NOSE AND THROAT: Nose without bleeding or purulent nasal discharge. Drooling clear secretions NECK: Trachea midline. Supple and not tender, no meningeal signs CARDIOVASCULAR: Regular rate and rhythm. RESPIRATORY: Decreased breath souinds bilaterally ABDOMEN: Soft, mildly distended, no reaction to palpation, no guarding. Bowel sounds present and normoactive. EXTREMITIES: No clubbing, cyanosis. Has edema of both hands. No pedal edema. Has dressings to both feet, dry and intact. Well perfused and warm. 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
[2017-12-14] VITALS (10 sets, daily range): BP systolic 124–153; BP diastolic 65–95; PULSE 91–103; RESP 20–33; TEMP 98–98.5; O2SAT 94–100
[2017-12-14] MEDS: PANTOPRAZOLE SODIUM 40 MG VIAL IV PUSH SCH ×2 (00:28→12:01)
[2017-12-14] MEDS: hydrALAZINE HCL 100 MG TAB PO SCH ×3 (02:00→18:23)
[2017-12-14] MEDS: CHLORHEXIDINE GLUCONATE 2 % 1 PACK (2 CLOTHS) TOP SCH (04:00)
[2017-12-14] MEDS: MEROPENEM INJ 1,000 MG in SODIUM CHLORIDE 0.9% INJ 100 ML IV SCH ×3 (04:00→20:10)
[2017-12-14] MEDS: FREE WATER PEG SCH ×4 (05:41→18:00)
[2017-12-14] MEDS: INSULIN ASPART SUPPLEMENTAL SCALE SQ SCH ×4 (06:00→18:23)
[2017-12-14 07:00] LABS: BICARBONATE 20.3 MEQ/L (21.0-32.0); CALCIUM 9.2 MG/DL (8.5-10.1); CREATININE 1.4 MG/DL (0.60-1.30)
[2017-12-14] MEDS: SODIUM CHLORIDE 0.9% FLUSH 10 ML FLUSH IV FLUSH SCH ×2 (08:45→20:10)
[2017-12-14] MEDS: CARVEDILOL 12.5 MG TAB PO SCH ×2 (08:45→20:11)
[2017-12-14] MEDS: ASPIRIN 81 MG CHEW TAB CHEW SCH (08:45)
[2017-12-14] MEDS: FUROSEMIDE 40 MG/4 ML VIAL IV PUSH SCH (08:45)
[2017-12-14] MEDS: DOCUSATE SODIUM 50 MG/SENNA 8.6 MG TAB PO SCH ×2 (08:45→20:07)
[2017-12-14] MEDS: ARTIFICIAL TEARS OPTH SOLN 15 ML BTL EACH EYE SCH ×3 (08:45→18:22)
[2017-12-14] MEDS: SODIUM BICARBONATE 325 MG TAB PO SCH ×2 (08:46→18:22)
[2017-12-14] MEDS: INSULIN DETEMIR 100 UNITS/ML VIAL SQ SCH ×2 (08:46→20:11)
[2017-12-14] MEDS: COLLAGENASE OINT 30 GM TUBE TOPICAL SCH (09:00)
--- NOTE | 2017-12-14 12:51 | HHI.IDPN ---
Subjective Subjective Remarks Patient is a 47-year-old male, who is a resident of the residential, with history of CVA, brought into the hospital for decreased level of consciousness, decreased oxygen saturation. In the ED he was noted to have some pink frothy sputum. He was emergently intubated. His chest x-ray showed bilateral pulmonary infiltrates consistent with pulmonary edema. 2 blood cultures were done in the emergency room, and they are both growing staph hominis. Sputum culture also is now reported as growing Klebsiella ESBL positive. His chest x- ray has shown some worsening of his infiltrates. He was also found to have acute kidney injury. Patient is being managed for pulmonary edema, as well as sepsis. He has been getting vancomycin as well as Zosyn. He was initially febrile on his first hospital day, but that has improved. Patient's white count has been normal. Patient remains on the respirator. He has good urine output, but his creatinine remains elevated. There is no evidence of obstruction on his renal ultrasound. CT of the abdomen and pelvis are showing chronic changes of encephalomalacia compatible with his prior history of CVA. Infectious disease consultation has been requested to evaluate the patient. Notes reviewed Temps normal Good sats, on RA WBC normal Breathing is better Sputum with Kelb ESBL and Pseudomonas BC negative UC negative No central line HAs triplett cath MRI ?L foot with osteo Antibiotics Meropenem Current Medications Medications (Trade) Dose Ordered Sig/Arthur Route Start Time Stop Time Status Last Admin (Brethine Inj) 1 mg UNSCH PRN SQ 11/28/17 05:30 (NS Flush) 2 ml UNSCH PRN IV FLUSH 11/28/17 05:45 12/05/17 08:07 (NS Flush) 2 ml BID IV FLUSH 11/28/17 09:00 12/14/17 08:45 (Tylenol) 650 mg Q6H PRN PO 11/28/17 05:45 12/12/17 12:55 (Tears Naturale Opth Soln) 1 drop TID EACH EYE 11/28/17 09:00 12/14/17 12:02 (Zofran Inj) 4 mg Q6H PRN IV PUSH 11/28/17 05:45 12/09/17 15:48 (Duoneb Neb) 1 ampule Q2HR NEB PRN INH 11/28/17 05:45 12/09/17 20:47 ([facility] Nursing Information) 1 Q361D XX 11/28/17 05:45 (Chlorhexidine 2% Cloth) Taper DAILY@04 TOP 11/29/17 04:00 11/25/18 03:59 12/12/17 03:44 (Chlorhexidine 2% Cloth) 3 pack UNSCH PRN TOP 11/28/17 05:45 (Jessie-Colace) 1 tab BID PO 11/28/17 09:00 12/12/17 10:03 (Milk Of Magnesia Liq) 30 ml Q12H PRN PO 11/28/17 05:45 (Senokot) 17.2 mg Q12H PRN PO 11/28/17 05:45 (Dulcolax Supp) 10 mg DAILY PRN RECTAL 11/28/17 05:45 (Lactulose Liq) 30 ml DAILY PRN PO 11/28/17 05:45 12/01/17 11:49 (D50w (Vial) Inj) 25 ml UNSCH PRN IV PUSH 11/28/17 06:15 (Protonix Inj) 40 mg Q12H IV PUSH 11/28/17 12:00 12/14/17 12:01 (Santyl Oint) 1 applic DAILY TOPICAL 12/01/17 09:00 12/14/17 09:00 (Aspirin Chew) 81 mg DAILY CHEW 12/04/17 09:00 12/14/17 08:45 ([facility] Nursing Information) D/C ICU ELECTROLYTE ORDERS... UNSCH PRN .XX 12/04/17 07:00 ([facility] Nursing Information) ICU - CALL ORDERING PHYSIC... UNSCH PRN .XX 12/04/17 07:00 Potassium Chloride 100 ml @ 25 mls/hr UNSCH PRN IV 12/04/17 07:00 (K-Lyte Cl Eff) 50 meq UNSCH PRN PO 12/04/17 07:00 12/12/17 10:08 Potassium Chloride 100 ml @ 50 mls/hr UNSCH PRN IV 12/04/17 07:00 Magnesium Sulfate 4 gm/Sodium Chloride 108 ml @ 54 mls/hr UNSCH PRN IV 12/04/17 07:00 Magnesium Sulfate 2 gm/Sodium Chloride 104 ml @ 52 mls/hr UNSCH PRN IV 12/04/17 07:00 (Mag-Ox) 800 mg UNSCH PRN PO 12/04/17 07:00 Sodium Phosphate 30 mmol/Sodium Chloride 260 ml @ 43.333 mls/ hr UNSCH PRN IV 12/04/17 07:00 (K-Phos) 2,000 mg UNSCH PRN PO 12/04/17 07:00 Potassium Phosphate 30 mmol/ Sodium Chloride 260 ml @ 43.333 mls/ hr UNSCH PRN IV 12/04/17 07:00 (Trandate Inj) 10 mg Q4H PRN IV PUSH 12/04/17 16:30 12/09/17 04:42 (Apresoline Inj) 20 mg Q4H PRN IV PUSH 12/04/17 16:30 12/08/17 03:32 (NovoLOG SUPPLEMENTAL SCALE) 1 Q6H SQ 12/05/17 18:00 12/14/17 12:02 (Lawrence 5-325 Mg) 1 tab Q6H PRN PEG 12/05/17 18:30 12/07/17 07:40 Dexmedetomidine HCl 1000 mcg/ Sodium Chloride 250 ml @ 4.22 mls/hr TITRATE PRN IV 12/05/17 18:30 12/08/17 08:57 (Apresoline) 100 mg Q8H PO 12/06/17 02:00 12/14/17 10:24 Meropenem 1000 mg/ Sodium Chloride 100 ml @ 200 mls/hr Q8H IV 12/06/17 12:00 12/14/17 12:01 (Levemir Inj) 5 units Q12HR SQ 12/07/17 21:00 12/14/17 08:46 (Lasix Inj) 40 mg DAILY IV PUSH 12/10/17 09:00 12/14/17 08:45 (Lopressor Inj) 5 mg Q6H PRN IV PUSH 12/09/17 13:30 12/10/17 21:40 (Free Water) 200 ml Q6HR PEG 12/09/17 18:00 12/14/17 12:00 (Coreg) 25 mg BID PO 12/10/17 10:30 12/14/17 08:45 (Sodium Bicarbonate) 325 mg BIDPC PO 12/10/17 10:30 12/14/17 08:46 Lines Chest X-Ray 12/13/17 0600 Signed Impressions: CONCLUSION: Slight improvement in left basilar consolidation. New right basilar airspace di sease. Trace pleural fluid. Chest X-Ray 12/09/17 Signed Impressions: CONCLUSION: The patient is status post extubation with worsening atelectasis/consolidation within the left lower lobe and lingula. Chest X-Ray 12/08/17599 Signed Impressions: CONCLUSION: Mild bibasilar areas of consolidation or atelectasis. This appears stable when compared to the most recent chest x-ray. Chest X-Ray 12/06/17599 Signed Impressions: CONCLUSION: Possible slight worsening of pulmonary edema since the prior exam. Chest X-Ray 12/05/17599 Signed Impressions: CONCLUSION: No appreciable change. Foot MRI 12/05/17 Signed Impressions: CONCLUSION: 1. Probable artifact involving the distal portion of the fifth metatarsal on t he T2 sequence could be further characterized with bone scan based on clinical grounds. Otherwise unremarkable. Foot MRI 12/05/17 Signed Impressions: CONCLUSION: 1. Marked enhancement in the subcutaneous tissues in the lateral aspect of the foot. Abnormal areas of bone marrow edema in the fifth metatarsal shaft concer khanh for residual osteomyelitis. There is also edema in the fourth metatarsal h ead concerning for an additional area of osteomyelitis Chest X-Ray 12/04/17599 Signed Impressions: CONCLUSION: Moderate pulmonary edema is suspected, however there is slight overall improvem ent in aeration of the left lung is the prior exam. Last Impressions Chest X-Ray 12/02/17599 Signed Impressions: CONCLUSION: No significant change. Left greater than right parenchymal consolidation and sm all left pleural effusion again noted. Abdomen/Pelvis CT 12/01/17 Signed Impressions: CONCLUSION: 1. Bibasilar consolidating lung infiltrate 2. Hepatosplenomegaly 3. Calcified adrenal glands. 4. Trace ascites. 5. PEG tube and Triplett catheter in place. 6. Inguinal lymphadenopathy. 7. Calcific arthropathy of the left hip. 8. No acute intestinal abnormality hydronephrosis or suspicious abdominopelvic masses. Renal Ultrasound 11/28/17 Signed Impressions: CONCLUSION: 1. Echogenic kidneys consistent with medical renal disease. 2. No obstructive uropathy. Head CT 11/28/17 Signed Impressions: CONCLUSION: 1. No acute hemorrhage or mass effect. 2. Large area of encephalomalacia involving the right frontal and parietal lob e. 3. Chronic sinusitis. Brain MRI 11/28/17 0000 Signed Impressions: CONCLUSION: 1. Large area of encephalomalacia in the right medial frontal parietal high co nvexities extending to the vertex. 2. No evidence for acute abnormality. Specifically, no acute infarction, hemor rhage or hydrocephalus. 3. Paranasal sinus mucosal disease. Past Medical History GENERAL: awakens easily, responding, NAD SKIN: Warm and dry. No generalized rash HEAD: Atraumatic. Normocephalic. No temporal wasting, or tenderness. EYES: Pale conjunctiva. No petechia or hemorrhage. Pupils equal, round and reactive to light. No scleral icterus. No injection or drainage. EARS, NOSE AND THROAT: Nose without bleeding or purulent nasal discharge. He is orally intubated. NECK: Trachea midline. Supple and not tender, no meningeal signs CARDIOVASCULAR: Regular rate and rhythm. RESPIRATORY: Bilateral diffuse rhonchi ABDOMEN: Soft, mildly distended, no reaction to palpation, no guarding. Bowel sounds present and normoactive. EXTREMITIES: No clubbing, cyanosis. Has edema of both hands. Dressings to both intact. Well perfused and warm. NEUROLOGICAL: Awakens easily, following PSYCHIATRIC: CAlm LINE: No evidence of infection : Triplett catheter in place, urine looks clear Allergies: Coded Allergies: No Known Allergies (Verified Allergy, Severe, 11/03/06) Objective . Vital Signs Date Time Temp Pulse Resp B/P (MAP) Pulse Ox O2 Delivery O2 Flow Rate FiO2 12/14/17 12:00 98.3 92 22 132/79 (96) 94 12/14/17 12:00 92 12/14/17 11:00 91 12/14/17 11:00 91 22 127/65 (85) 94 12/14/17 10:00 93 22 151/74 (99) 96 12/14/17 10:00 93 12/14/17 09:09 96 21 12/14/17 09:00 103 12/14/17 09:00 103 33 152/80 (104) 95 12/14/17 08:00 95 12/14/17 08:00 98.0 95 23 153/78 (103) 96 12/14/17 07:00 96 Room Air 12/14/17 04:00 98.5 93 24 131/67 (88) 99 12/14/17 04:00 93 12/14/17 00:00 92 12/14/17 00:00 98.2 92 21 124/68 (86) 94 12/13/17 20:37 100 21 12/13/17 20:00 98.3 91 21 129/66 (87) 94 12/13/17 20:00 91 12/13/17 19:00 100 Nasal Cannula 3.00 12/13/17 16:00 83 12/13/17 16:00 97.9 83 23 117/66 (83) 98 . Laboratory Tests Test 12/13/17 03:06 White Blood Count 5.9 TH/MM3 Red Blood Count 2.50 MIL/MM3 Hemoglobin 7.6 GM/DL Hematocrit 22.8 % Mean Corpuscular Volume 91.0 FL Mean Corpuscular Hemoglobin 30.3 PG Mean Corpuscular Hemoglobin Concent 33.3 % Red Cell Distribution Width 13.7 % Platelet Count 307 TH/MM3 Mean Platelet Volume 9.3 FL Neutrophils (%) (Auto) 83.0 % Lymphocytes (%) (Auto) 13.2 % Monocytes (%) (Auto) 3.6 % Eosinophils (%) (Auto) 0.0 % Basophils (%) (Auto) 0.2 % Neutrophils # (Auto) 4.9 TH/MM3 Lymphocytes # (Auto) 0.8 TH/MM3 Monocytes # (Auto) 0.2 TH/MM3 Eosinophils # (Auto) 0.0 TH/MM3 Basophils # (Auto) 0.0 TH/MM3 CBC Comment DIFF FINAL Differential Comment Laboratory Tests Test 12/13/17 03:06 12/14/17 04:48 Blood Urea Nitrogen 75 MG/DL 87 MG/DL Creatinine 1.60 MG/DL 1.40 MG/DL Random Glucose 253 MG/DL 128 MG/DL Calcium Level 8.7 MG/DL 9.2 MG/DL Sodium Level 151 MEQ/L 153 MEQ/L Potassium Level 4.3 MEQ/L 4.0 MEQ/L Chloride Level 119 MEQ/L 121 MEQ/L Carbon Dioxide Level 21.8 MEQ/L 20.3 MEQ/L Anion Gap 10 MEQ/L 12 MEQ/L Estimat Glomerular Filtration Rate 56 ML/MIN 66 ML/MIN Imaging Last 72 hours Impressions Chest X-Ray 12/11/17 0000 Signed Impressions: CONCLUSION: Dense infiltrate left lung base. Last Impressions Chest X-Ray 12/02/17 06 Signed Impressions: CONCLUSION: No significant change. Left greater than right parenchymal consolidation and sm all left pleural effusion again noted. Abdomen/Pelvis CT 12/01/17 Signed Impressions: CONCLUSION: 1. Bibasilar consolidating lung infiltrate 2. Hepatosplenomegaly 3. Calcified adrenal glands. 4. Trace ascites. 5. PEG tube and Triplett catheter in place. 6. Inguinal lymphadenopathy. 7. Calcific arthropathy of the left hip. 8. No acute intestinal abnormality hydronephrosis or suspicious abdominopelvic masses. Renal Ultrasound 11/28/17 Signed Impressions: CONCLUSION: 1. Echogenic kidneys consistent with medical renal disease. 2. No obstructive uropathy. Head CT 11/28/17 Signed Impressions: CONCLUSION: 1. No acute hemorrhage or mass effect. 2. Large area of encephalomalacia involving the right frontal and parietal lob e. 3. Chronic sinusitis. Brain MRI 11/28/17 Signed Impressions: CONCLUSION: 1. Large area of encephalomalacia in the right medial frontal parietal high co nvexities extending to the vertex. 2. No evidence for acute abnormality. Specifically, no acute infarction, hemor rhage or hydrocephalus. 3. Paranasal sinus mucosal disease. Physical Exam GENERAL: awake, focusing, follows some commands, on nasal O2, not in respiratory distress. SKIN: Cool and dry. No generalized rash HEAD: Atraumatic. Normocephalic. No temporal wasting, or tenderness. EYES: Pale conjunctiva. No petechia or hemorrhage. Pupils equal, round and reactive to light. No scleral icterus. No injection or drainage. EARS, NOSE AND THROAT: Nose without bleeding or purulent nasal discharge. Moist mucosa NECK: Trachea midline. Supple and not tender, no meningeal signs CARDIOVASCULAR: Regular rate and rhythm. RESPIRATORY: Decreased breath souinds bilaterally ABDOMEN: Soft, mildly distended, no reaction to palpation, no guarding. Bowel sounds present and normoactive. EXTREMITIES: No clubbing, cyanosis. Has edema of both hands. No pedal edema. Has dressings to both feet, dry and intact. Well perfused and warm. NEUROLOGICAL: Awake and following PSYCHIATRIC: Following LINE: No evidence of infection Assessment & Plan Remarks IMPRESSION Klebsiella ESBL+ in sputum with bilateral infiltrates, S/P Rx - has CHF and with PNA (?Aspiration, came in with decreased LOC) CHF, EF good on his echo Respiratory failure, extubated 6/2 New HCAP, Kleb and Pseudomonas Possible Osteo L foot - has chronic ulcers, both feet, debrided by podiatry at bedside Acute kidney injury (+) BC with Staph hominis, ?source Hx CVA SNF resident Fevers, ?due to lung, atelectasis, vs other etiology - better RECOMMENDATION Continue Meropenem this weekend Follow temps Monitor progress Fup CXR Seems clinically stable Dr Paul available if needed this weekend Sharlene Kim MD Dec 14, 2017 12:51
--- NOTE | 2017-12-14 13:29 | HHI.PR ---
Subjective Remarks Patient appears to have more energy today, he is speaking with a full voice rather than a whisper. He complains of nonspecific pain in his legs. He is still confused. Objective Vitals Vital Signs Date Time Temp Pulse Resp B/P (MAP) Pulse Ox O2 Delivery O2 Flow Rate FiO2 12/14/17 12:00 98.3 92 22 132/79 (96) 94 12/14/17 12:00 92 12/14/17 11:00 91 12/14/17 11:00 91 22 127/65 (85) 94 12/14/17 10:00 93 22 151/74 (99) 96 12/14/17 10:00 93 12/14/17 09:09 96 21 12/14/17 09:00 103 12/14/17 09:00 103 33 152/80 (104) 95 12/14/17 08:00 95 12/14/17 08:00 98.0 95 23 153/78 (103) 96 12/14/17 07:00 96 Room Air 12/14/17 04:00 98.5 93 24 131/67 (88) 99 12/14/17 04:00 93 12/14/17 00:00 92 12/14/17 00:00 98.2 92 21 124/68 (86) 94 12/13/17 20:37 100 21 12/13/17 20:00 98.3 91 21 129/66 (87) 94 12/13/17 20:00 91 12/13/17 19:00 100 Nasal Cannula 3.00 12/13/17 16:00 83 12/13/17 16:00 97.9 83 23 117/66 (83) 98 I/O 12/13/17 12/13/17 12/13/17 12/14/17 12/14/17 12/14/17 06:59 14:59 22:59 06:59 14:59 22:59 Intake Total 1022 ml 100 ml 1055 ml 929 ml Balance 1022 ml 100 ml 1055 ml 929 ml Intake IV Total 100 ml 100 ml 100 ml Tube Feeding 522 ml 555 ml 529 ml Other 400 ml 400 ml 400 ml # Voids 3 3 3 # Bowel Movements 1 2 1 Result Diagram: 12/13/17 0306 12/14/17 0448 Objective Remarks GENERAL: Thin, tired appearing patient SKIN: Warm and dry. HEAD: Normocephalic. EYES: No scleral icterus. No injection or drainage. NECK: Supple, trachea midline. No JVD or lymphadenopathy. CARDIOVASCULAR: Sinus rhythm, without murmurs, gallops, or rubs. RESPIRATORY: congestive sounds in anterior lung ruiz. No accessory muscle use. GASTROINTESTINAL: Abdomen soft, non-tender, nondistended. EXTREMITIES: No cyanosis, or edema. Muscle wasting NEUROLOGICAL: Awake, alert, and oriented x 3. Local strength has improved A/P Problem List: (1) Pneumonia ICD Code: J18.9 - Pneumonia, unspecified organism (2) CHF (congestive heart failure) ICD Code: I50.9 - Heart failure, unspecified (3) CKD (chronic kidney disease) stage 3, GFR 30-59 ml/min ICD Code: N18.3 - Chronic kidney disease, stage 3 (moderate) (4) Acute renal failure ICD Code: N17.9 - Acute kidney failure, unspecified (5) Diabetes ICD Code: E11.9 - Type 2 diabetes mellitus without complications Status: Chronic Assessment and Plan Pneumonia, respiratory failure Intubated on 11/28/2017, extubated on 12/11/2017 Sputum culture had ESBL, blood cultures had gram-negative cocci Completed treatment with vancomycin and ertapenem Continue duo nebs as needed, continue oxygen Awaiting transfer to [facility] Metabolic encephalopathy,h/o CVA MRI shows old frontoparietal encephalomalacia EEG shows generalized slowing h/o CHF Reports of volume overload during this hospitalization Continue home dose of Coreg Give Lasix as needed Acute on chronic renal failure No obstruction or hydronephrosis on renal ultrasound Creatinines are nearing normal Appreciate nephrology following Type 2 diabetes Sliding scale insulin coverage with Accu-Cheks Diabetic diet DVT Prophylaxis Heparin Prabhu Robles MD Dec 14, 2017 13:29
[2017-12-14 14:30] LABS: BASOPHIL % 0.6 % (0.0-2.0); EOSINOPHIL # 0.1 TH/MM3 (0-0.4); EOSINOPHIL % 0.7 % (0.0-4.0); HEMATOCRIT 27.1 % (39.0-51.0); HEMOGLOBIN 8.7 GM/DL (13.0-17.0); LYMPH % 22.6 % (9.0-44.0); LYMPHOCYTE # 1.6 TH/MM3 (1.0-4.8); MEAN CELL VOLUME 89.6 FL (80.0-100.0); MEAN CORPUSCULAR HEMOGLOBIN 28.8 PG (27.0-34.0); MEAN CORPUSCULAR HGB CONC 32.1 % (32.0-36.0); MEAN PLATELET VOLUME 9.2 FL (7.0-11.0); MONO % 7.2 % (0.0-8.0); MONOCYTE # 0.5 TH/MM3 (0-0.9); NEUT % 68.9 % (16.0-70.0); PLATELET COUNT 376 TH/MM3 (150-450); RED BLOOD COUNT 3.02 MIL/MM3 (4.50-5.90); RED CELL DISTRIBUTION WIDTH 14.1 % (11.6-17.2); WHITE BLOOD COUNT 7.3 TH/MM3 (4.0-11.0)
[2017-12-15] VITALS (10 sets, daily range): BP systolic 135–158; BP diastolic 68–104; PULSE 94–99; RESP 18–20; TEMP 97.8–100.1; O2SAT 93–97
[2017-12-15] MEDS: PANTOPRAZOLE SODIUM 40 MG VIAL IV PUSH SCH ×2 (00:05→11:33)
[2017-12-15] MEDS: hydrALAZINE HCL 100 MG TAB PO SCH ×3 (01:55→17:54)
[2017-12-15] MEDS: MEROPENEM INJ 1,000 MG in SODIUM CHLORIDE 0.9% INJ 100 ML IV SCH ×3 (03:47→20:17)
[2017-12-15] MEDS: CHLORHEXIDINE GLUCONATE 2 % 1 PACK (2 CLOTHS) TOP SCH (04:00)
[2017-12-15] MEDS: FREE WATER PEG SCH ×5 (05:10→20:00)
[2017-12-15] MEDS: INSULIN ASPART SUPPLEMENTAL SCALE SQ SCH ×4 (05:46→17:58)
[2017-12-15 07:30] LABS: AUTOMATED NEUTROPHIL # 4.6 TH/MM3 (1.8-7.7); BASOPHIL # 0.1 TH/MM3 (0-0.2); BASOPHIL % 0.7 % (0.0-2.0); EOSINOPHIL # 0.1 TH/MM3 (0-0.4); HEMATOCRIT 24.8 % (39.0-51.0); HEMOGLOBIN 8.2 GM/DL (13.0-17.0); LYMPH % 23.9 % (9.0-44.0); LYMPHOCYTE # 1.7 TH/MM3 (1.0-4.8); MEAN CELL VOLUME 89.8 FL (80.0-100.0); MEAN CORPUSCULAR HEMOGLOBIN 29.8 PG (27.0-34.0); MEAN CORPUSCULAR HGB CONC 33.1 % (32.0-36.0); MEAN PLATELET VOLUME 9.1 FL (7.0-11.0); MONO % 8.3 % (0.0-8.0); MONOCYTE # 0.6 TH/MM3 (0-0.9); NEUT % 65.1 % (16.0-70.0); PLATELET COUNT 353 TH/MM3 (150-450); RED BLOOD COUNT 2.77 MIL/MM3 (4.50-5.90); WHITE BLOOD COUNT 7.1 TH/MM3 (4.0-11.0)
[2017-12-15 07:55] LABS: BICARBONATE 24.2 MEQ/L (21.0-32.0); CALCIUM 8.6 MG/DL (8.5-10.1); CREATININE 1.22 MG/DL (0.60-1.30)
[2017-12-15] MEDS: CARVEDILOL 12.5 MG TAB PO SCH ×2 (10:23→20:18)
[2017-12-15] MEDS: FUROSEMIDE 40 MG/4 ML VIAL IV PUSH SCH (10:23)
[2017-12-15] MEDS: ASPIRIN 81 MG CHEW TAB CHEW SCH (10:23)
[2017-12-15] MEDS: SODIUM BICARBONATE 325 MG TAB PO SCH ×2 (10:23→17:54)
[2017-12-15] MEDS: ARTIFICIAL TEARS OPTH SOLN 15 ML BTL EACH EYE SCH ×3 (10:24→17:53)
[2017-12-15] MEDS: INSULIN DETEMIR 100 UNITS/ML VIAL SQ SCH ×2 (10:24→20:28)
[2017-12-15] MEDS: DOCUSATE SODIUM 50 MG/SENNA 8.6 MG TAB PO SCH ×2 (10:24→20:17)
[2017-12-15] MEDS: COLLAGENASE OINT 30 GM TUBE TOPICAL SCH (10:25)
[2017-12-15] MEDS: SODIUM CHLORIDE 0.9% FLUSH 10 ML FLUSH IV FLUSH SCH ×2 (10:45→20:17)
--- NOTE | 2017-12-15 13:03 | HHI.PR ---
Subjective Remarks This is a 47-year-old male with a history of prior stroke who presented from care home facility by EMS for acute altered mental status. Per EMS reports, he was in his normal state of health last night and then with his reevaluated by the nursing staff and was a GCS of 3 with room air sats of 79%. Of note by the ED physician, the patient had pink frothy sputum on admission to the ER. He was emergently intubated by the emergency department. He has a chest x-ray which demonstrates bilateral infiltrates consistent with pulmonary edema. He has a BNP which is severely elevated at 1300. He has a elevated creatinine suggestive of acute kidney injury with an unknown baseline. Per report he has been treated for an MRSA skin infection. He is afebrile with a normal white count. Critical care medicine is consulted to evaluate manage his acute encephalopathy, multiorgan dysfunction. No additional information is available from the patient due to his severe encephalopathy. SUBJ 11/29: Remains intubated sedated with propofol for vent synchrony. According to RN he did follow commands upper extremities when sedation held. Chest exam reveals bilateral coarse rhonchi, crackles. CXR pending at this time 11/30: remains intubated. cxr with bilateral infiltrates again suggestive of volume overload. 12/01: T-max 100.6. Creatinine and change the patient continues to be positive with fluid, will follow up nephrology's recommendations regarding continued albumin and/Lasix therapy. Hemoglobin stable this a.m. at 7.9. Plan for CT of the abdomen and pelvis for possible source. Stool Hemoccult still pending. Consult ID , appreciate recommendations. Follow-up with podiatry concern for osteomyelitis. Plan for possible I&D bilateral foot ulcers today. 12/02: Late entry note patient seen at 12:45 PM. No acute events overnight. The patient underwent incision and debridement bilateral feet by podiatry today tolerated procedures well. Hemodynamically stable. Creatinine improving. The patient remains on CPAP greater than 8 hours. 12/03: No acute events overnight. The patient tolerated CPAP trials for approximately 8 hours hemodynamically stable. Tolerating tube feeds. 12/04: Tolerated CPAP trials approximately the 8 hours yesterday, on low-dose propofol. Plan to transition to Precedex to facilitate ventilator weaning. Noted chest x-ray slightly improved but pulmonary edema still persists. Patient tolerating tube feeds. 12/05: Late entry note. Patient seen at 7:20 AM. The patient tolerated CPAP trials for approximately 16 hours. Plan for MRI bilateral feet today. Patient has been transitioned to Precedex infusion. Patient noted to have continued elevated blood glucose levels patient transitioned to high dose sliding scale. 12/06: T-max 101.6. Antibiotics changed per ID. MRI showed osteomyelitis left fourth and fifth metatarsal. CPAP trials initiated today patient tolerated CPAP trials approximately 3 hours yesterday. 12/07: Afebrile. Patient continues on CPAP trials today greater than 8 hours on Precedex infusion to facilitate ventilator weaning. Patient's nodding head to yes and no questions following my command. Patient was noted last night he continued to have elevated glucose despite high dose sliding scale regimen, patient placed on Levemir twice daily. 12/08: Late entry note . Patient seen at 1337 . Afebrile. Patient remained on CPAP trials throughout the entire night, greater than 24 hours. Limited SBT obtained, parameters within normal limits. The patient was extubated. He continues on 4 L nasal cannula 6- TRANSFERRED TO OUR SERVICE TODAY STILL SHORT OF BREATH WILL GIVE LASIX GET A CHEST XRAY DW RN AND PT AM LABS 6-4 we will restart tube feeds DW RN AND PT NON-VERBAL ONLY ON NC OXYGEN AT THIS TIME MEDS ADJUSTED BY ID 6-8 Patient appears to have more energy today, he is speaking with a full voice rather than a whisper. He complains of nonspecific pain in his legs. He is still confused. 12-15 REMAINS CONFUSED HYPERNATREMIA IS WORSE DW RN AND PATIENT ADJUST FREE WATER AND FLUSHES AM LABS DW RN AND PT AND CM STILL CONFUSED PT AND OT Objective Vitals Vital Signs Date Time Temp Pulse Resp B/P (MAP) Pulse Ox O2 Delivery O2 Flow Rate FiO2 12/15/17 08:30 96 12/15/17 08:00 98.5 99 18 152/84 (106) 94 12/15/17 04:35 99.2 98 18 147/83 (104) 95 12/15/17 03:48 96 12/15/17 00:01 94 12/15/17 00:00 100.1 96 18 158/83 (108) 94 12/14/17 20:00 98.3 98 20 132/95 (107) 100 12/14/17 16:00 96 12/14/17 16:00 98.3 96 21 148/85 (106) 99 I/O 12/14/17 12/14/17 12/14/17 12/15/17 12/15/17 12/15/17 07:00 15:00 23:00 07:00 15:00 23:00 Intake Total 929 ml 807 ml 752 ml Balance 929 ml 807 ml 752 ml Intake IV Total 100 ml Tube Feeding 529 ml 507 ml 352 ml Other 400 ml 200 ml 400 ml # Voids 3 5 # Bowel Movements 1 2 2 Result Diagram: 12/15/17 0701 12/15/17 0701 Other Results Laboratory Tests Test 12/13/17 03:06 12/14/17 04:48 12/14/17 13:35 12/15/17 07:01 White Blood Count 5.9 TH/MM3 7.3 TH/MM3 7.1 TH/MM3 Red Blood Count 2.50 MIL/MM3 3.02 MIL/MM3 2.77 MIL/MM3 Hemoglobin 7.6 GM/DL 8.7 GM/DL 8.2 GM/DL Hematocrit 22.8 % 27.1 % 24.8 % Mean Corpuscular Volume 91.0 FL 89.6 FL 89.8 FL Mean Corpuscular Hemoglobin 30.3 PG 28.8 PG 29.8 PG Mean Corpuscular Hemoglobin Concent 33.3 % 32.1 % 33.1 % Red Cell Distribution Width 13.7 % 14.1 % 14.0 % Platelet Count 307 TH/MM3 376 TH/MM3 353 TH/MM3 Mean Platelet Volume 9.3 FL 9.2 FL 9.1 FL Neutrophils (%) (Auto) 83.0 % 68.9 % 65.1 % Lymphocytes (%) (Auto) 13.2 % 22.6 % 23.9 % Monocytes (%) (Auto) 3.6 % 7.2 % 8.3 % Eosinophils (%) (Auto) 0.0 % 0.7 % 2.0 % Basophils (%) (Auto) 0.2 % 0.6 % 0.7 % Neutrophils # (Auto) 4.9 TH/MM3 5.0 TH/MM3 4.6 TH/MM3 Lymphocytes # (Auto) 0.8 TH/MM3 1.6 TH/MM3 1.7 TH/MM3 Monocytes # (Auto) 0.2 TH/MM3 0.5 TH/MM3 0.6 TH/MM3 Eosinophils # (Auto) 0.0 TH/MM3 0.1 TH/MM3 0.1 TH/MM3 Basophils # (Auto) 0.0 TH/MM3 0.0 TH/MM3 0.1 TH/MM3 CBC Comment DIFF FINAL DIFF FINAL DIFF FINAL Differential Comment Blood Urea Nitrogen 75 MG/DL 87 MG/DL 67 MG/DL Creatinine 1.60 MG/DL 1.40 MG/DL 1.22 MG/DL Random Glucose 253 MG/DL 128 MG/DL 165 MG/DL Calcium Level 8.7 MG/DL 9.2 MG/DL 8.6 MG/DL Sodium Level 151 MEQ/L 153 MEQ/L 157 MEQ/L Potassium Level 4.3 MEQ/L 4.0 MEQ/L 3.4 MEQ/L Chloride Level 119 MEQ/L 121 MEQ/L 123 MEQ/L Carbon Dioxide Level 21.8 MEQ/L 20.3 MEQ/L 24.2 MEQ/L Anion Gap 10 MEQ/L 12 MEQ/L 10 MEQ/L Estimat Glomerular Filtration Rate 56 ML/MIN 66 ML/MIN 77 ML/MIN Imaging Last Impressions Chest X-Ray 12/13/17 06 Signed Impressions: CONCLUSION: Slight improvement in left basilar consolidation. New right basilar airspace di sease. Trace pleural fluid. Foot MRI 12/05/17 Signed Impressions: CONCLUSION: 1. Probable artifact involving the distal portion of the fifth metatarsal on t he T2 sequence could be further characterized with bone scan based on clinical grounds. Otherwise unremarkable. Foot X-Ray 12/02/17 Signed Impressions: CONCLUSION: 1. Very limited study. 2. No gross acute abnormality. Abdomen/Pelvis CT 12/01/17 Signed Impressions: CONCLUSION: 1. Bibasilar consolidating lung infiltrate 2. Hepatosplenomegaly 3. Calcified adrenal glands. 4. Trace ascites. 5. PEG tube and Dudley catheter in place. 6. Inguinal lymphadenopathy. 7. Calcific arthropathy of the left hip. 8. No acute intestinal abnormality hydronephrosis or suspicious abdominopelvic masses. Renal Ultrasound 11/28/17 Signed Impressions: CONCLUSION: 1. Echogenic kidneys consistent with medical renal disease. 2. No obstructive uropathy. Head CT 11/28/17 Signed Impressions: CONCLUSION: 1. No acute hemorrhage or mass effect. 2. Large area of encephalomalacia involving the right frontal and parietal lob e. 3. Chronic sinusitis. Brain MRI 11/28/17 0000 Signed Impressions: CONCLUSION: 1. Large area of encephalomalacia in the right medial frontal parietal high co nvexities extending to the vertex. 2. No evidence for acute abnormality. Specifically, no acute infarction, hemor rhage or hydrocephalus. 3. Paranasal sinus mucosal disease. Objective Remarks GENERAL: AWAKE AND ALERT NOT ORIENTED CONFUSED SKIN: Warm and dry. BL FEET DRESSED LEFT SIDE HEMIPARESIS HEAD: Atraumatic. Normocephalic. EYES: Pupils equal and round. No scleral icterus. No injection or drainage. EOMI ENT: No nasal bleeding or discharge. Mucous membranes pink and moist. NECK: Trachea midline. No JVD. SUPPLE CARDIOVASCULAR: IRRegular rate and rhythm. S1, S2 NO S3 OR S4 RESPIRATORY: No accessory muscle use. Breath sounds equal bilaterally. COARSE BREATH SOUNDS AND RHONCHI BL GASTROINTESTINAL: Abdomen soft, non-tender, nondistended. Hepatic and splenic margins not palpable. PEG TUBE IN PLACE MUSCULOSKELETAL: Extremities without clubbing, cyanosis, or edema. No obvious deformities. BL FEET DRESSED- LEFT SIDE HEMIPARESIS NEUROLOGICAL: Awake and alert. No obvious cranial nerve deficits. Motor grossly within normal limits. 4 out of 5 muscle strength in the arms and legs ON THE RIGHT- LEFT SIDE HEMIPARESIS. ABNormal speech. PSYCHIATRIC: INAppropriate mood and affect; insight and judgment ABnormal. Procedures INTUBATION AND VENT MANAGEMENT AND EXTUBATION Medications and IVs Current Medications Sodium Chloride (NS Flush) 2 ml UNSCH PRN IVF FLUSH AFTER USING IV ACCESS; Start 11/28/17 at 05:15; Stop 11/28/17 at 06:13; Status DC Furosemide (Lasix Inj) 40 mg ONCE ONCE IVP Last administered on 11/28/17at 05: 45; Start 11/28/17 at 05:15; Stop 11/28/17 at 05:16; Status DC Norepinephrine Bitartrate 4 mg/ Sodium Chloride 250 ml @ 7.5 mls/hr TITRATE PRN IV Blood pressure management Last administered on 11/28/17at 07:48; Start at 05:30; Stop 11/29/17 at 08:18; Status DC Terbutaline Sulfate (Brethine Inj) 1 mg UNSCH PRN SQ For Extravasation; Start 11/28/17 at 05:30 Cefepime HCl 2000 mg/Sodium Chloride 100 ml @ 200 mls/hr ONCE STAT IV Last administered on 11/28/17at 05:45; Start 11/28/17 at 05:23; Stop 11/28/17 at 05:52 ; Status DC Azithromycin 500 mg/Sodium Chloride 250 ml @ 250 mls/hr ONCE STAT IV Last administered on 11/28/17at 05:45; Start 11/28/17 at 05:23; Stop 11/28/17 at 06:26 ; Status DC Tobramycin Sulfate 630 mg/ Sodium Chloride 115.75 ml @ 100 mls/ hr ONCE STAT IV ; Start 11/28/17 at 05:23; Stop 11/28/17 at 06:32; Status DC Sodium Chloride 250 ml @ 15 mls/hr ONCE ONCE IV Last administered on at 10:02; Start 11/28/17 at 05:45; Stop 11/28/17 at 22:24; Status DC Sodium Chloride 1,000 ml @ 84 mls/hr [id number] IV ; Start 11/28/17 at 05:39; Stop 11/28/17 at 06:13; Status DC Sodium Chloride (NS Flush) 2 ml UNSCH PRN IV FLUSH FLUSH AFTER USING IV ACCESS Last administered on 12/05/17at 08:07; Start 11/28/17 at 05:45 Sodium Chloride (NS Flush) 2 ml BID IV FLUSH Last administered on 12/15/17at 10: 45; Start 11/28/17 at 09:00 Acetaminophen (Tylenol) 650 mg Q6H PRN PO PAIN 1-10 AND/OR FEVER >101F Last administered on 12/12/17at 12:55; Start 11/28/17 at 05:45 Famotidine (Pepcid Inj) 20 mg Q12HR IV PUSH Last administered on 11/28/17at 08: 49; Start 11/28/17 at 09:00; Stop 11/28/17 at 09:19; Status DC Artificial Tears (Tears Naturale Opth Soln) 1 drop TID EACH EYE Last administered on 12/15/17at 10:24; Start 11/28/17 at 09:00 Ondansetron HCl (Zofran Inj) 4 mg Q6H PRN IV PUSH NAUSEA OR VOMITING Last administered on 12/09/17 15:48; Start 11/28/17 at 05:45 Albuterol/ Ipratropium (Duoneb Neb) 1 ampule Q2HR NEB PRN INH WHEEZING Last administered on 12/09/17at 20:47; Start 11/28/17 at 05:45 Miscellaneous Information ([facility] Nursing Information) 1 Q361D XX ; Start at 05:45 Chlorhexidine Gluconate (Chlorhexidine 2% Cloth) Taper DAILY@04 TOP Last administered on 12/12/17at 03:44; Start 11/29/17 at 04:00; Stop 11/25/18 at 03:59 Chlorhexidine Gluconate (Chlorhexidine 2% Cloth) 3 pack UNSCH PRN TOP HYGIENIC CARE; Start 11/28/17 at 05:45 Senna/Docusate Sodium (Jessie-Colace) 1 tab BID PO Last administered on 12/15/17at 10:24; Start 11/28/17 at 09:00 Magnesium Hydroxide (Milk Of Magnesia Liq) 30 ml Q12H PRN PO Mild constipation ; Start 11/28/17 at 05:45 Sennosides (Senokot) 17.2 mg Q12H PRN PO Moderate constipation; Start 11/28/17 at 05:45 Bisacodyl (Dulcolax Supp) 10 mg DAILY PRN RECTAL SEVERE CONSITIPATION; Start at 05:45 Lactulose (Lactulose Liq) 30 ml DAILY PRN PO SEVERE CONSITIPATION Last administered on 12/01/17at 11:49; Start 11/28/17 at 05:45 Furosemide (Lasix Inj) 80 mg STAT STAT IV PUSH Last administered on 11/28/17at 06:40; Start 11/28/17 at 06:10; Stop 11/28/17 at 06:12; Status DC Dextrose (D50w (Vial) Inj) 25 ml UNSCH PRN IV PUSH HYPOGLYCEMIA-SEE COMMENTS; Start 11/28/17 at 06:15 Insulin Human Regular (NovoLIN R SUPPLEMENTAL SCALE) 1 Q6HR SQ Last administered on 12/05/17at 12:21; Start 11/28/17 at 12:00; Stop 12/05/17 at 16:08 ; Status DC Chlorothiazide Sodium (Diuril Inj) 500 mg ONCE ONCE IV Last administered on at 09:47; Start 11/28/17 at 09:00; Stop 11/28/17 at 09:01; Status DC Famotidine (Pepcid Inj) 10 mg Q12HR IV PUSH ; Start 11/28/17 at 21:00; Stop at 21:00; Status DC Pantoprazole Sodium (Protonix Inj) 40 mg Q12H IV PUSH Last administered on at 11:33; Start 11/28/17 at 12:00 Propofol 100 ml @ 2.7 mls/hr TITRATE PRN IV SEDATION Last administered on 12/05at 12:22; Start 11/28/17 at 14:15; Stop 12/05/17 at 16:07; Status DC Propofol 50 ml @ As Directed STK-MED ONCE .ROUTE Last administered on at 14:08; Start 11/28/17 at 14:08; Stop 11/28/17 at 14:09; Status DC Albuterol/ Ipratropium (Duoneb Neb) 1 ampule Q6HR NEB NEB Last administered on 12/03/17at 08:56; Start 11/29/17 at 10:00; Stop 12/03/17 at 09:59; Status DC Furosemide (Lasix Inj) 40 mg BID@09,18 IV PUSH Last administered on 12/01/17at 18:08; Start 11/29/17 at 09:00; Stop 12/02/17 at 07:00; Status DC Albumin Human 100 ml @ 60 mls/hr Q12H IV Last administered on 12/01/17at 19:49 ; Start 11/29/17 at 08:30; Stop 12/02/17 at 07:00; Status DC Piperacillin Sod/ Tazobactam Sod 100 ml @ 200 mls/hr Q6H IV Last administered on 12/01/17at 05:52; Start 11/30/17 at 00:15; Stop 12/01/17 at 11:49; Status DC Pharmacy Profile Note 0 ml @ 0 mls/hr UNSCH OTHER ; Start 11/30/17 at 08:30; Stop 12/09/17 at 11:20; Status DC Vancomycin HCl 1250 mg/Sodium Chloride 262.5 ml @ 250 mls/hr ONCE ONCE IV ; Start 11/30/17 at 08:30; Stop 11/30/17 at 10:11; Status DC Metolazone (Zaroxolyn) 5 mg ONCE ONCE PO Last administered on 11/30/17at 10:32 ; Start 11/30/17 at 10:05; Stop 11/30/17 at 10:06; Status DC Vancomycin HCl 1500 mg/Sodium Chloride 515 ml @ 257.5 mls/ hr ONCE ONCE IV Last administered on 11/30/17at 12:53; Start 11/30/17 at 12:00; Stop 11/30/17 at 13:59; Status DC Sodium Chloride 250 ml @ 15 mls/hr ONCE ONCE IV Last administered on at 13:15; Start 11/30/17 at 13:15; Stop 12/01/17 at 05:54; Status DC Collagenase (Santyl Oint) 1 applic DAILY TOPICAL Last administered on 12/15/17at 10:25; Start 12/01/17 at 09:00 Diatrizoate Meglum/ Diatrizoate Sod ( Gastroview Liq) 18 ml ONCE ONCE PO Last administered on 12/01/17at 10:32; Start 12/01/17 at 09:45; Stop 12/01/17 at 09:46; Status DC Miscellaneous Medication (ASP Crit: Doc ESBL, MDR A baumannii or P aer) 1 UNSCH X1 PRN .XX PHARMACY DOCUMENTATION; Start 12/01/17 at 12:00; Stop 12/02/17 at 11 :59; Status DC Miscellaneous Medication ([facility] Pharmacy Information) 1 UNSCH X1 PRN XX PHARMACY DOCUMENTATION; Start 12/01/17 at 12:00; Stop 12/02/17 at 11:59; Status DC Ertapenem 500 mg/ Sodium Chloride 100 ml @ 200 mls/hr Q24H IV ; Start 12/01/17 at 13:00; Stop 12/01/17 at 13:00; Status DC Ertapenem 500 mg/ Sodium Chloride 100 ml @ 200 mls/hr Q24H IV Last administered on 12/05/17at 12:21; Start 12/01/17 at 13:00; Stop 12/06/17 at 10:46 ; Status DC Potassium Chloride 100 ml @ 50 mls/hr BOLUS ONCE IV Last administered on 12/02at 12:42; Start 12/02/17 at 12:00; Stop 12/02/17 at 13:59; Status DC Vancomycin HCl 1500 mg/Sodium Chloride 515 ml @ 257.5 mls/ hr ONCE ONCE IV Last administered on 12/03/17at 15:08; Start 12/03/17 at 13:00; Stop 12/03/17 at 14:59; Status DC Aspirin (Aspirin Chew) 81 mg DAILY CHEW Last administered on 12/15/17at 10:23; Start 12/04/17 at 09:00 Miscellaneous Information ([facility] Nursing Information) D/C ICU ELECTROLYTE ORDERS... UNSCH PRN .XX SEE DOSE INSTRUCTIONS; Start 12/04/17 at 07:00 Miscellaneous Information ([facility] Nursing Information) ICU - CALL ORDERING PHYSIC... UNSCH PRN .XX SEE DOSE INSTRUCTIONS; Start 12/04/17 at 07:00 Potassium Chloride 100 ml @ 25 mls/hr UNSCH PRN IV ELECTROLYTE REPLACEMENT; Start 12/04/17 at 07:00 Potassium Bicarb/ Potassium Chloride (K-Lyte Cl Eff) 50 meq UNSCH PRN PO ELECTROLYTE REPLACEMENT Last administered on 12/12/17at 10:08; Start 12/04/17 at 07:00 Potassium Chloride 100 ml @ 50 mls/hr UNSCH PRN IV ELECTROLYTE REPLACEMENT; Start 12/04/17 at 07:00 Magnesium Sulfate 4 gm/Sodium Chloride 108 ml @ 54 mls/hr UNSCH PRN IV ELECTROLYTE REPLACEMENT; Start 12/04/17 at 07:00 Magnesium Sulfate 2 gm/Sodium Chloride 104 ml @ 52 mls/hr UNSCH PRN IV ELECTROLYTE REPLACEMENT; Start 12/04/17 at 07:00 Magnesium Oxide (Mag-Ox) 800 mg UNSCH PRN PO ELECTROLYTE REPLACEMENT; Start at 07:00 Sodium Phosphate 30 mmol/Sodium Chloride 260 ml @ 43.333 mls/ hr UNSCH PRN IV ELECTROLYTE REPLACEMENT; Start 12/04/17 at 07:00 Potassium Phosphate (K-Phos) 2,000 mg UNSCH PRN PO ELECTROLYTE REPLACEMENT; Start 12/04/17 at 07:00 Potassium Phosphate 30 mmol/ Sodium Chloride 260 ml @ 43.333 mls/ hr UNSCH PRN IV ELECTROLYTE REPLACEMENT; Start 12/04/17 at 07:00 Dexmedetomidine HCl 200 mcg/ Sodium Chloride 52 ml @ 4.39 mls/hr TITRATE PRN IV SEDATION Last administered on 12/05/17 17:06; Start 12/04/17 at 09:15; Stop 12/05/17 at 18:24; Status DC Labetalol HCl (Trandate Inj) 10 mg Q4H PRN IV PUSH SYS BP GREATER THAN 160 MMHG Last administered on 12/09/17at 04:42; Start 12/04/17 at 16:30 Hydralazine HCl (Apresoline Inj) 20 mg Q4H PRN IV PUSH SBP>160, DBP>90 Last administered on 12/08/17 03:32; Start 12/04/17 at 16:30 Vancomycin HCl 1500 mg/Sodium Chloride 515 ml @ 257.5 mls/ hr ONCE ONCE IV Last administered on 12/05/17at 13:42; Start 12/05/17 at 13:00; Stop 12/05/17 at 14:59; Status DC Insulin Aspart (NovoLOG SUPPLEMENTAL SCALE) 1 ACHS SLIDING SCALE SQ ; Start at 17:00; Stop 12/05/17 at 17:00; Status DC Gadodiamide (Omniscan Pf Inj) 18 ml STK-MED ONCE IVCONTRAST Last administered on 12/05/17at 16:51; Start 12/05/17 at 16:51; Stop 12/05/17 at 16:52; Status DC Acetaminophen/ Hydrocodone Bitart ([place] 5-325 Mg) 1 tab Q6H PRN PO PAIN 8-10 ; Start 12/05/17 at 17:00; Stop 12/05/17 at 18:23; Status DC Insulin Aspart (NovoLOG SUPPLEMENTAL SCALE) 1 Q6H SQ Last administered on at 11:33; Start 12/05/17 at 18:00 Acetaminophen/ Hydrocodone Bitart ([place] 5-325 Mg) 1 tab Q6H PRN PEG PAIN 8- 10 Last administered on 12/07/17at 07:40; Start 12/05/17 at 18:30 Dexmedetomidine HCl 1000 mcg/ Sodium Chloride 250 ml @ 4.22 mls/hr TITRATE PRN IV SEDATION Last administered on 12/08/17at 08:57; Start 12/05/17 at 18:30 Hydralazine HCl (Apresoline) 100 mg Q8H PO Last administered on 12/15/17at 10:23 ; Start 12/06/17 at 02:00 Miscellaneous Medication (ASP Crit: Doc ESBL, MDR A baumannii or P aer) 1 UNSCH X1 PRN .XX PHARMACY DOCUMENTATION; Start 12/06/17 at 10:00; Stop 12/07/17 at 09: 59; Status DC Miscellaneous Medication ([facility] Pharmacy Information) 1 UNSCH X1 PRN XX PHARMACY DOCUMENTATION; Start 12/06/17 at 10:00; Stop 12/07/17 at 09:59; Status DC Meropenem 1000 mg/ Sodium Chloride 100 ml @ 200 mls/hr Q8H IV Last administered on 12/15/17at 11:32; Start 12/06/17 at 12:00 Levofloxacin (Levaquin) 750 mg DAILY PO Last administered on 12/09/17at 08:54; Start 12/06/17 at 11:00; Stop 12/09/17 at 11:20; Status DC Vancomycin HCl 1500 mg/Sodium Chloride 515 ml @ 257.5 mls/ hr ONCE ONCE IV Last administered on 12/07/17at 14:03; Start 12/07/17 at 13:00; Stop 12/07/17 at 14: 59; Status DC Insulin Detemir (Levemir Inj) 5 units Q12HR SQ Last administered on 12/15/17at 10 :24; Start 12/07/17 at 21:00 Metoprolol Tartrate (Lopressor Inj) 5 mg STK-MED ONCE .ROUTE Last administered on 12/09/17at 08:30; Start 12/09/17 at 08:23; Stop 12/09/17 at 08:24; Status DC Vancomycin HCl 1500 mg/Sodium Chloride 515 ml @ 257.5 mls/ hr ONCE ONCE IV ; Start 12/09/17 at 14:00; Stop 12/09/17 at 14:00; Status DC Furosemide (Lasix Inj) 40 mg DAILY IV PUSH Last administered on 12/15/17at 10:23 ; Start 12/10/17 at 09:00 Furosemide (Lasix Inj) 40 mg ONCE ONCE IV PUSH Last administered on 12/09/17at 10:37; Start 12/09/17 at 10:30; Stop 12/09/17 at 10:31; Status DC Linezolid 300 ml @ 300 mls/hr Q12H IV Last administered on 12/10/17 23:49; Start 12/09/17 at 12:00; Stop 12/11/17 at 09:29; Status DC Fluconazole/ Sodium Chloride 100 ml @ 100 mls/hr Q24H IV Last administered on 12/10/17 11:09; Start 12/09/17 at 12:00; Stop 12/11/17 at 09:29; Status DC Metoprolol Tartrate (Lopressor Inj) 5 mg Q6H PRN IV PUSH HR > 110 Last administered on 12/10/17at 21:40; Start 12/09/17 at 13:30 Water (Free Water) 200 ml Q6HR PEG Last administered on 12/15/17 05:10; Start 12/09/17 at 18:00; Stop 12/15/17 at 09:29; Status DC Metoprolol Tartrate (Lopressor Inj) 5 mg ONCE ONCE IV PUSH Last administered on 12/10/17at 01:35; Start 12/10/17 at 01:00; Stop 12/10/17 at 01:01; Status DC Carvedilol (Coreg) 25 mg BID PO Last administered on 12/15/17 10:23; Start 12/10 at 10:30 Sodium Bicarbonate (Sodium Bicarbonate) 325 mg BIDPC PO Last administered on 10:23; Start 12/10/17 at 10:30 Methylprednisolone Sodium Succinate (SoluMEDROL INJ) 80 mg ONCE ONCE IV PUSH Last administered on 12/12/17at 10:04; Start 12/12/17 at 09:00; Stop 12/12/17 at 09: 01; Status DC Water (Free Water) 200 ml Q4HR PEG Last administered on 12/15/17at 11:33; Start 12/15/17 at 12:00 A/P Problem List: (1) Pneumonia ICD Code: J18.9 - Pneumonia, unspecified organism (2) CHF (congestive heart failure) ICD Code: I50.9 - Heart failure, unspecified (3) CKD (chronic kidney disease) stage 3, GFR 30-59 ml/min ICD Code: N18.3 - Chronic kidney disease, stage 3 (moderate) (4) Acute renal failure ICD Code: N17.9 - Acute kidney failure, unspecified (5) Diabetes ICD Code: E11.9 - Type 2 diabetes mellitus without complications Status: Chronic Assessment and Plan Pneumonia, respiratory failure Intubated on 11/28/2017, extubated on 12/11/2017 Sputum culture had ESBL, blood cultures had gram-negative cocci Completed treatment with vancomycin and ertapenem Continue duo nebs as needed, continue oxygen MedSurg Metabolic encephalopathy,h/o CVA MRI shows old frontoparietal encephalomalacia EEG shows generalized slowing h/o CHF Reports of volume overload during this hospitalization Continue home dose of Coreg Give Lasix as needed Acute on chronic renal failure No obstruction or hydronephrosis on renal ultrasound Creatinines are nearing normal Appreciate nephrology following Type 2 diabetes Sliding scale insulin coverage with Accu-Cheks Diabetic diet HYPERNATREMIA WILL INCREASE FREE WATER FLUSHES TO Q4H AM LABS HYPOKALEMIA WILL REPLACE AM LABS DVT Prophylaxis Heparin Discharge Planning PENDING IMPROVEMENT Candido Beltran DO Dec 15, 2017 13:03
[2017-12-16] VITALS: BP 143/75; PULSE 95; RESP 20; TEMP 98.6; O2SAT 97
[2017-12-16] MEDS: PANTOPRAZOLE SODIUM 40 MG VIAL IV PUSH SCH ×3 (01:10→23:53)
[2017-12-16] MEDS: hydrALAZINE HCL 100 MG TAB PO SCH ×3 (01:10→18:24)
[2017-12-16] MEDS: MEROPENEM INJ 1,000 MG in SODIUM CHLORIDE 0.9% INJ 100 ML IV SCH ×3 (03:24→21:35)
[2017-12-16] MEDS: CHLORHEXIDINE GLUCONATE 2 % 1 PACK (2 CLOTHS) TOP SCH (03:36)
[2017-12-16] MEDS: FREE WATER PEG SCH ×7 (03:36→23:55)
[2017-12-16 04:00] VITALS: BP 121/78; PULSE 98; RESP 20; TEMP 99; O2SAT 98
[2017-12-16 05:14] LABS: BASOPHIL % 0.4 % (0.0-2.0); EOSINOPHIL # 0.2 TH/MM3 (0-0.4); EOSINOPHIL % 3.6 % (0.0-4.0); HEMATOCRIT 25.2 % (39.0-51.0); HEMOGLOBIN 8.4 GM/DL (13.0-17.0); LYMPH % 25.9 % (9.0-44.0); LYMPHOCYTE # 1.7 TH/MM3 (1.0-4.8); MEAN CORPUSCULAR HEMOGLOBIN 29.9 PG (27.0-34.0); MEAN CORPUSCULAR HGB CONC 33.2 % (32.0-36.0); MONO % 9.2 % (0.0-8.0); MONOCYTE # 0.6 TH/MM3 (0-0.9); NEUT % 60.9 % (16.0-70.0); PLATELET COUNT 343 TH/MM3 (150-450); RED CELL DISTRIBUTION WIDTH 13.7 % (11.6-17.2); WHITE BLOOD COUNT 6.5 TH/MM3 (4.0-11.0)
[2017-12-16] MEDS: INSULIN ASPART SUPPLEMENTAL SCALE SQ SCH ×5 (05:37→23:55)
[2017-12-16 05:42] LABS: ALBUMIN 2.3 GM/DL (3.4-5.0); ALT (GPT) 36 U/L (12-78); AST (GOT) 32 U/L (15-37); BICARBONATE 25.6 MEQ/L (21.0-32.0); BLOOD UREA NITROGEN 53 MG/DL (7-18); CALCIUM 8.7 MG/DL (8.5-10.1); CHLORIDE 122 MEQ/L (98-107); CREATININE 1.26 MG/DL (0.60-1.30); GLOMERULAR FILTRATION RATE 74 ML/MIN (>89); GLUCOSE,RANDOM 146 MG/DL (74-106); MAGNESIUM 2.1 MG/DL (1.5-2.5); PHOSPHORUS 3.6 MG/DL (2.5-4.9)
[2017-12-16 05:52] LABS: ALKALINE PHOSPHATASE 107 U/L (45-117); TOTAL BILIRUBIN ADULT 0.4 MG/DL (0.2-1.0); TOTAL PROTEIN 7.7 GM/DL (6.4-8.2)
[2017-12-16 05:54] LABS: SODIUM (NA) 157 MEQ/L (136-145)
[2017-12-16] MEDS: CARVEDILOL 12.5 MG TAB PO SCH ×2 (09:19→21:35)
[2017-12-16] MEDS: SODIUM BICARBONATE 325 MG TAB PO SCH ×2 (09:19→18:24)
[2017-12-16] MEDS: DOCUSATE SODIUM 50 MG/SENNA 8.6 MG TAB PO SCH ×2 (09:19→21:35)
[2017-12-16] MEDS: ASPIRIN 81 MG CHEW TAB CHEW SCH (09:19)
[2017-12-16] MEDS: FUROSEMIDE 40 MG/4 ML VIAL IV PUSH SCH (09:20)
[2017-12-16] MEDS: ARTIFICIAL TEARS OPTH SOLN 15 ML BTL EACH EYE SCH ×3 (09:20→18:25)
[2017-12-16] MEDS: SODIUM CHLORIDE 0.9% FLUSH 10 ML FLUSH IV FLUSH SCH ×2 (09:20→21:00)
[2017-12-16] MEDS: INSULIN DETEMIR 100 UNITS/ML VIAL SQ SCH ×2 (09:21→21:36)
[2017-12-16] MEDS: COLLAGENASE OINT 30 GM TUBE TOPICAL SCH (09:21)
[2017-12-16 09:27] VITALS: BP 145/87; PULSE 97; RESP 16; TEMP 98.4; O2SAT 96
[2017-12-16] MEDS: DEXTROSE 5% IN WATE 1000ML INJ 1,000 ML IV SCH ×2 (12:32→21:41)
[2017-12-16 13:12] VITALS: BP 140/80; PULSE 93; RESP 16; TEMP 97.7; O2SAT 92
--- NOTE | 2017-12-16 15:12 | HHI.PR ---
Subjective Remarks This is a 47-year-old male with a history of prior stroke who presented from senior care facility by EMS for acute altered mental status. Per EMS reports, he was in his normal state of health last night and then with his reevaluated by the nursing staff and was a GCS of 3 with room air sats of 79%. Of note by the ED physician, the patient had pink frothy sputum on admission to the ER. He was emergently intubated by the emergency department. He has a chest x-ray which demonstrates bilateral infiltrates consistent with pulmonary edema. He has a BNP which is severely elevated at 1300. He has a elevated creatinine suggestive of acute kidney injury with an unknown baseline. Per report he has been treated for an MRSA skin infection. He is afebrile with a normal white count. Critical care medicine is consulted to evaluate manage his acute encephalopathy, multiorgan dysfunction. No additional information is available from the patient due to his severe encephalopathy. SUBJ 11/29: Remains intubated sedated with propofol for vent synchrony. According to RN he did follow commands upper extremities when sedation held. Chest exam reveals bilateral coarse rhonchi, crackles. CXR pending at this time 11/30: remains intubated. cxr with bilateral infiltrates again suggestive of volume overload. 12/01: T-max 100.6. Creatinine and change the patient continues to be positive with fluid, will follow up nephrology's recommendations regarding continued albumin and/Lasix therapy. Hemoglobin stable this a.m. at 7.9. Plan for CT of the abdomen and pelvis for possible source. Stool Hemoccult still pending. Consult ID , appreciate recommendations. Follow-up with podiatry concern for osteomyelitis. Plan for possible I&D bilateral foot ulcers today. 12/02: Late entry note patient seen at 12:45 PM. No acute events overnight. The patient underwent incision and debridement bilateral feet by podiatry today tolerated procedures well. Hemodynamically stable. Creatinine improving. The patient remains on CPAP greater than 8 hours. 12/03: No acute events overnight. The patient tolerated CPAP trials for approximately 8 hours hemodynamically stable. Tolerating tube feeds. 12/04: Tolerated CPAP trials approximately the 8 hours yesterday, on low-dose propofol. Plan to transition to Precedex to facilitate ventilator weaning. Noted chest x-ray slightly improved but pulmonary edema still persists. Patient tolerating tube feeds. 12/05: Late entry note. Patient seen at 7:20 AM. The patient tolerated CPAP trials for approximately 16 hours. Plan for MRI bilateral feet today. Patient has been transitioned to Precedex infusion. Patient noted to have continued elevated blood glucose levels patient transitioned to high dose sliding scale. 12/06: T-max 101.6. Antibiotics changed per ID. MRI showed osteomyelitis left fourth and fifth metatarsal. CPAP trials initiated today patient tolerated CPAP trials approximately 3 hours yesterday. 12/07: Afebrile. Patient continues on CPAP trials today greater than 8 hours on Precedex infusion to facilitate ventilator weaning. Patient's nodding head to yes and no questions following my command. Patient was noted last night he continued to have elevated glucose despite high dose sliding scale regimen, patient placed on Levemir twice daily. 12/08: Late entry note . Patient seen at 1337 . Afebrile. Patient remained on CPAP trials throughout the entire night, greater than 24 hours. Limited SBT obtained, parameters within normal limits. The patient was extubated. He continues on 4 L nasal cannula 6-3 TRANSFERRED TO OUR SERVICE TODAY STILL SHORT OF BREATH WILL GIVE LASIX GET A CHEST XRAY DW RN AND PT AM LABS 6-4 we will restart tube feeds DW RN AND PT NON-VERBAL ONLY ON NC OXYGEN AT THIS TIME MEDS ADJUSTED BY ID 6-8 Patient appears to have more energy today, he is speaking with a full voice rather than a whisper. He complains of nonspecific pain in his legs. He is still confused. 12-15 REMAINS CONFUSED HYPERNATREMIA IS WORSE DW RN AND PATIENT ADJUST FREE WATER AND FLUSHES AM LABS DW RN AND PT AND CM STILL CONFUSED PT AND OT 6-10STILL CONFUSED HYPERNATREMIA NOT IMPROVED START ON D5 AT 125ML/HOUR WATCH SUGARS AM LABS DW RN AND PT AND CM CONTINUE PT AND OT Objective Vitals Vital Signs Date Time Temp Pulse Resp B/P (MAP) Pulse Ox O2 Delivery O2 Flow Rate FiO2 12/16/17 13:12 97.7 93 16 140/80 (100) 92 12/16/17 09:27 98.4 97 16 145/87 (106) 96 12/16/17 04:00 99.0 98 20 121/78 (92) 98 12/16/17 00:00 98.6 95 20 143/75 (97) 97 12/15/17 23:32 97 12/15/17 20:00 98.1 97 20 140/75 (96) 97 12/15/17 16:00 97.8 96 18 144/104 (117) 97 I/O 12/15/17 12/15/17 12/15/17 12/16/17 12/16/17 12/16/17 06:59 14:59 22:59 06:59 14:59 22:59 Intake Total 752 ml 1160 ml 0 ml Output Total 200 ml Balance 752 ml 960 ml 0 ml Intake Oral 0 ml IV Total 100 ml Tube Feeding 352 ml 660 ml Other 400 ml 400 ml Output Urine Total 200 ml # Voids 4 3 # Bowel Movements 2 3 0 Result Diagram: 12/16/17 0435 12/16/17 1100 Other Results Laboratory Tests Test 12/14/17 04:48 12/14/17 13:35 12/15/17 07:01 12/16/17 04:35 Blood Urea Nitrogen 87 MG/DL 67 MG/DL 53 MG/DL Creatinine 1.40 MG/DL 1.22 MG/DL 1.26 MG/DL Random Glucose 128 MG/DL 165 MG/DL 146 MG/DL Calcium Level 9.2 MG/DL 8.6 MG/DL 8.7 MG/DL Sodium Level 153 MEQ/L 157 MEQ/L 157 MEQ/L Potassium Level 4.0 MEQ/L 3.4 MEQ/L 3.2 MEQ/L Chloride Level 121 MEQ/L 123 MEQ/L 122 MEQ/L Carbon Dioxide Level 20.3 MEQ/L 24.2 MEQ/L 25.6 MEQ/L Anion Gap 12 MEQ/L 10 MEQ/L 9 MEQ/L Estimat Glomerular Filtration Rate 66 ML/MIN 77 ML/MIN 74 ML/MIN White Blood Count 7.3 TH/MM3 7.1 TH/MM3 6.5 TH/MM3 Red Blood Count 3.02 MIL/MM3 2.77 MIL/MM3 2.80 MIL/MM3 Hemoglobin 8.7 GM/DL 8.2 GM/DL 8.4 GM/DL Hematocrit 27.1 % 24.8 % 25.2 % Mean Corpuscular Volume 89.6 FL 89.8 FL 90.0 FL Mean Corpuscular Hemoglobin 28.8 PG 29.8 PG 29.9 PG Mean Corpuscular Hemoglobin Concent 32.1 % 33.1 % 33.2 % Red Cell Distribution Width 14.1 % 14.0 % 13.7 % Platelet Count 376 TH/MM3 353 TH/MM3 343 TH/MM3 Mean Platelet Volume 9.2 FL 9.1 FL 9.0 FL Neutrophils (%) (Auto) 68.9 % 65.1 % 60.9 % Lymphocytes (%) (Auto) 22.6 % 23.9 % 25.9 % Monocytes (%) (Auto) 7.2 % 8.3 % 9.2 % Eosinophils (%) (Auto) 0.7 % 2.0 % 3.6 % Basophils (%) (Auto) 0.6 % 0.7 % 0.4 % Neutrophils # (Auto) 5.0 TH/MM3 4.6 TH/MM3 4.0 TH/MM3 Lymphocytes # (Auto) 1.6 TH/MM3 1.7 TH/MM3 1.7 TH/MM3 Monocytes # (Auto) 0.5 TH/MM3 0.6 TH/MM3 0.6 TH/MM3 Eosinophils # (Auto) 0.1 TH/MM3 0.1 TH/MM3 0.2 TH/MM3 Basophils # (Auto) 0.0 TH/MM3 0.1 TH/MM3 0.0 TH/MM3 CBC Comment DIFF FINAL DIFF FINAL DIFF FINAL Differential Comment Total Protein 7.7 GM/DL Albumin 2.3 GM/DL Phosphorus Level 3.6 MG/DL Magnesium Level 2.1 MG/DL Alkaline Phosphatase 107 U/L Aspartate Amino Transf (AST/SGOT) 32 U/L Alanine Aminotransferase (ALT/SGPT) 36 U/L Total Bilirubin 0.4 MG/DL Test 12/16/17 11:00 Sodium Level 156 MEQ/L Imaging Last Impressions Chest X-Ray 12/13/17 0600 Signed Impressions: CONCLUSION: Slight improvement in left basilar consolidation. New right basilar airspace di sease. Trace pleural fluid. Foot MRI 12/05/17 Signed Impressions: CONCLUSION: 1. Probable artifact involving the distal portion of the fifth metatarsal on t he T2 sequence could be further characterized with bone scan based on clinical grounds. Otherwise unremarkable. Foot X-Ray 12/02/17 Signed Impressions: CONCLUSION: 1. Very limited study. 2. No gross acute abnormality. Abdomen/Pelvis CT 12/01/17 Signed Impressions: CONCLUSION: 1. Bibasilar consolidating lung infiltrate 2. Hepatosplenomegaly 3. Calcified adrenal glands. 4. Trace ascites. 5. PEG tube and Dudley catheter in place. 6. Inguinal lymphadenopathy. 7. Calcific arthropathy of the left hip. 8. No acute intestinal abnormality hydronephrosis or suspicious abdominopelvic masses. Renal Ultrasound 11/28/17 Signed Impressions: CONCLUSION: 1. Echogenic kidneys consistent with medical renal disease. 2. No obstructive uropathy. Head CT 11/28/17 Signed Impressions: CONCLUSION: 1. No acute hemorrhage or mass effect. 2. Large area of encephalomalacia involving the right frontal and parietal lob e. 3. Chronic sinusitis. Brain MRI 11/28/17 Signed Impressions: CONCLUSION: 1. Large area of encephalomalacia in the right medial frontal parietal high co nvexities extending to the vertex. 2. No evidence for acute abnormality. Specifically, no acute infarction, hemor rhage or hydrocephalus. 3. Paranasal sinus mucosal disease. Objective Remarks GENERAL: AWAKE AND ALERT NOT ORIENTED CONFUSED SKIN: Warm and dry. BL FEET DRESSED LEFT SIDE HEMIPARESIS HEAD: Atraumatic. Normocephalic. EYES: Pupils equal and round. No scleral icterus. No injection or drainage. EOMI ENT: No nasal bleeding or discharge. Mucous membranes pink and moist. NECK: Trachea midline. No JVD. SUPPLE CARDIOVASCULAR: IRRegular rate and rhythm. S1, S2 NO S3 OR S4 RESPIRATORY: No accessory muscle use. Breath sounds equal bilaterally. COARSE BREATH SOUNDS AND RHONCHI BL GASTROINTESTINAL: Abdomen soft, non-tender, nondistended. Hepatic and splenic margins not palpable. PEG TUBE IN PLACE MUSCULOSKELETAL: Extremities without clubbing, cyanosis, or edema. No obvious deformities. BL FEET DRESSED- LEFT SIDE HEMIPARESIS NEUROLOGICAL: Awake and alert. No obvious cranial nerve deficits. Motor grossly within normal limits. 4 out of 5 muscle strength in the arms and legs ON THE RIGHT- LEFT SIDE HEMIPARESIS. ABNormal speech. PSYCHIATRIC: INAppropriate mood and affect; insight and judgment ABnormal. Procedures INTUBATION AND VENT MANAGEMENT AND EXTUBATION Medications and IVs Current Medications Sodium Chloride (NS Flush) 2 ml UNSCH PRN IVF FLUSH AFTER USING IV ACCESS; Start 11/28/17 at 05:15; Stop 11/28/17 at 06:13; Status DC Furosemide (Lasix Inj) 40 mg ONCE ONCE IVP Last administered on 11/28/17at 05: 45; Start 11/28/17 at 05:15; Stop 11/28/17 at 05:16; Status DC Norepinephrine Bitartrate 4 mg/ Sodium Chloride 250 ml @ 7.5 mls/hr TITRATE PRN IV Blood pressure management Last administered on 11/28/17at 07:48; Start at 05:30; Stop 11/29/17 at 08:18; Status DC Terbutaline Sulfate (Brethine Inj) 1 mg UNSCH PRN SQ For Extravasation; Start 11/28/17 at 05:30 Cefepime HCl 2000 mg/Sodium Chloride 100 ml @ 200 mls/hr ONCE STAT IV Last administered on 11/28/17at 05:45; Start 11/28/17 at 05:23; Stop 11/28/17 at 05:52 ; Status DC Azithromycin 500 mg/Sodium Chloride 250 ml @ 250 mls/hr ONCE STAT IV Last administered on 11/28/17at 05:45; Start 11/28/17 at 05:23; Stop 11/28/17 at 06:26 ; Status DC Tobramycin Sulfate 630 mg/ Sodium Chloride 115.75 ml @ 100 mls/ hr ONCE STAT IV ; Start 11/28/17 at 05:23; Stop 11/28/17 at 06:32; Status DC Sodium Chloride 250 ml @ 15 mls/hr ONCE ONCE IV Last administered on at 10:02; Start 11/28/17 at 05:45; Stop 11/28/17 at 22:24; Status DC Sodium Chloride 1,000 ml @ 84 mls/hr [id number] IV ; Start 11/28/17 at 05:39; Stop 11/28/17 at 06:13; Status DC Sodium Chloride (NS Flush) 2 ml UNSCH PRN IV FLUSH FLUSH AFTER USING IV ACCESS Last administered on 12/05/17at 08:07; Start 11/28/17 at 05:45 Sodium Chloride (NS Flush) 2 ml BID IV FLUSH Last administered on 12/16/17at 09: 20; Start 11/28/17 at 09:00 Acetaminophen (Tylenol) 650 mg Q6H PRN PO PAIN 1-10 AND/OR FEVER >101F Last administered on 12/12/17at 12:55; Start 11/28/17 at 05:45 Famotidine (Pepcid Inj) 20 mg Q12HR IV PUSH Last administered on 11/28/17 08: 49; Start 11/28/17 at 09:00; Stop 11/28/17 at 09:19; Status DC Artificial Tears (Tears Naturale Opth Soln) 1 drop TID EACH EYE Last administered on 12/16/17 12:28; Start 11/28/17 at 09:00 Ondansetron HCl (Zofran Inj) 4 mg Q6H PRN IV PUSH NAUSEA OR VOMITING Last administered on 12/09/17 15:48; Start 11/28/17 at 05:45 Albuterol/ Ipratropium (Duoneb Neb) 1 ampule Q2HR NEB PRN INH WHEEZING Last administered on 12/09/17 20:47; Start 11/28/17 at 05:45 Miscellaneous Information ([facility] Nursing Information) 1 Q361D XX ; Start at 05:45 Chlorhexidine Gluconate (Chlorhexidine 2% Cloth) Taper DAILY@04 TOP Last administered on 12/12/17 03:44; Start 11/29/17 at 04:00; Stop 11/25/18 at 03:59 Chlorhexidine Gluconate (Chlorhexidine 2% Cloth) 3 pack UNSCH PRN TOP HYGIENIC CARE; Start 11/28/17 at 05:45 Senna/Docusate Sodium (Jessie-Colace) 1 tab BID PO Last administered on 09:19; Start 11/28/17 at 09:00 Magnesium Hydroxide (Milk Of Magnesia Liq) 30 ml Q12H PRN PO Mild constipation ; Start 11/28/17 at 05:45 Sennosides (Senokot) 17.2 mg Q12H PRN PO Moderate constipation; Start 11/28/17 at 05:45 Bisacodyl (Dulcolax Supp) 10 mg DAILY PRN RECTAL SEVERE CONSITIPATION; Start at 05:45 Lactulose (Lactulose Liq) 30 ml DAILY PRN PO SEVERE CONSITIPATION Last administered on 12/01/17 11:49; Start 11/28/17 at 05:45 Furosemide (Lasix Inj) 80 mg STAT STAT IV PUSH Last administered on 5/23/18at 06:40; Start 11/28/17 at 06:10; Stop 11/28/17 at 06:12; Status DC Dextrose (D50w (Vial) Inj) 25 ml UNSCH PRN IV PUSH HYPOGLYCEMIA-SEE COMMENTS; Start 11/28/17 at 06:15 Insulin Human Regular (NovoLIN R SUPPLEMENTAL SCALE) 1 Q6HR SQ Last administered on 12/05/17at 12:21; Start 11/28/17 at 12:00; Stop 12/05/17 at 16:08 ; Status DC Chlorothiazide Sodium (Diuril Inj) 500 mg ONCE ONCE IV Last administered on at 09:47; Start 11/28/17 at 09:00; Stop 11/28/17 at 09:01; Status DC Famotidine (Pepcid Inj) 10 mg Q12HR IV PUSH ; Start 11/28/17 at 21:00; Stop at 21:00; Status DC Pantoprazole Sodium (Protonix Inj) 40 mg Q12H IV PUSH Last administered on 12/16at 12:27; Start 11/28/17 at 12:00 Propofol 100 ml @ 2.7 mls/hr TITRATE PRN IV SEDATION Last administered on 12/05at 12:22; Start 11/28/17 at 14:15; Stop 12/05/17 at 16:07; Status DC Propofol 50 ml @ As Directed STK-MED ONCE .ROUTE Last administered on at 14:08; Start 11/28/17 at 14:08; Stop 11/28/17 at 14:09; Status DC Albuterol/ Ipratropium (Duoneb Neb) 1 ampule Q6HR NEB NEB Last administered on 12/03/17at 08:56; Start 11/29/17 at 10:00; Stop 12/03/17 at 09:59; Status DC Furosemide (Lasix Inj) 40 mg BID@09,18 IV PUSH Last administered on 12/01/17at 18:08; Start 11/29/17 at 09:00; Stop 12/02/17 at 07:00; Status DC Albumin Human 100 ml @ 60 mls/hr Q12H IV Last administered on 12/01/17at 19:49 ; Start 11/29/17 at 08:30; Stop 12/02/17 at 07:00; Status DC Piperacillin Sod/ Tazobactam Sod 100 ml @ 200 mls/hr Q6H IV Last administered on 12/01/17at 05:52; Start 11/30/17 at 00:15; Stop 12/01/17 at 11:49; Status DC Pharmacy Profile Note 0 ml @ 0 mls/hr UNSCH OTHER ; Start 11/30/17 at 08:30; Stop 12/09/17 at 11:20; Status DC Vancomycin HCl 1250 mg/Sodium Chloride 262.5 ml @ 250 mls/hr ONCE ONCE IV ; Start 11/30/17 at 08:30; Stop 11/30/17 at 10:11; Status DC Metolazone (Zaroxolyn) 5 mg ONCE ONCE PO Last administered on 11/30/17at 10:32 ; Start 11/30/17 at 10:05; Stop 11/30/17 at 10:06; Status DC Vancomycin HCl 1500 mg/Sodium Chloride 515 ml @ 257.5 mls/ hr ONCE ONCE IV Last administered on 11/30/17at 12:53; Start 11/30/17 at 12:00; Stop 11/30/17 at 13:59; Status DC Sodium Chloride 250 ml @ 15 mls/hr ONCE ONCE IV Last administered on at 13:15; Start 11/30/17 at 13:15; Stop 12/01/17 at 05:54; Status DC Collagenase (Santyl Oint) 1 applic DAILY TOPICAL Last administered on at 09:21; Start 12/01/17 at 09:00 Diatrizoate Meglum/ Diatrizoate Sod ( Gastroview Liq) 18 ml ONCE ONCE PO Last administered on 12/01/17at 10:32; Start 12/01/17 at 09:45; Stop 12/01/17 at 09:46; Status DC Miscellaneous Medication (ASP Crit: Doc ESBL, MDR A baumannii or P aer) 1 UNSCH X1 PRN .XX PHARMACY DOCUMENTATION; Start 12/01/17 at 12:00; Stop 12/02/17 at 11 :59; Status DC Miscellaneous Medication ([facility] Pharmacy Information) 1 UNSCH X1 PRN XX PHARMACY DOCUMENTATION; Start 12/01/17 at 12:00; Stop 12/02/17 at 11:59; Status DC Ertapenem 500 mg/ Sodium Chloride 100 ml @ 200 mls/hr Q24H IV ; Start 12/01/17 at 13:00; Stop 12/01/17 at 13:00; Status DC Ertapenem 500 mg/ Sodium Chloride 100 ml @ 200 mls/hr Q24H IV Last administered on 12/05/17at 12:21; Start 12/01/17 at 13:00; Stop 12/06/17 at 10:46 ; Status DC Potassium Chloride 100 ml @ 50 mls/hr BOLUS ONCE IV Last administered on 12/02at 12:42; Start 12/02/17 at 12:00; Stop 12/02/17 at 13:59; Status DC Vancomycin HCl 1500 mg/Sodium Chloride 515 ml @ 257.5 mls/ hr ONCE ONCE IV Last administered on 12/03/17at 15:08; Start 12/03/17 at 13:00; Stop 12/03/17 at 14:59; Status DC Aspirin (Aspirin Chew) 81 mg DAILY CHEW Last administered on 12/16/17at 09:19; Start 12/04/17 at 09:00 Miscellaneous Information ([facility] Nursing Information) D/C ICU ELECTROLYTE ORDERS... UNSCH PRN .XX SEE DOSE INSTRUCTIONS; Start 12/04/17 at 07:00; Stop at 13:08; Status DC Miscellaneous Information ([facility] Nursing Information) ICU - CALL ORDERING PHYSIC... UNSCH PRN .XX SEE DOSE INSTRUCTIONS; Start 12/04/17 at 07:00; Stop at 13:08; Status DC Potassium Chloride 100 ml @ 25 mls/hr UNSCH PRN IV ELECTROLYTE REPLACEMENT; Start 12/04/17 at 07:00; Stop 12/15/17 at 13:08; Status DC Potassium Bicarb/ Potassium Chloride (K-Lyte Cl Eff) 50 meq UNSCH PRN PO ELECTROLYTE REPLACEMENT Last administered on 12/12/17at 10:08; Start 12/04/17 at 07:00; Stop 12/15/17 at 13:08; Status DC Potassium Chloride 100 ml @ 50 mls/hr UNSCH PRN IV ELECTROLYTE REPLACEMENT; Start 12/04/17 at 07:00; Stop 12/15/17 at 13:08; Status DC Magnesium Sulfate 4 gm/Sodium Chloride 108 ml @ 54 mls/hr UNSCH PRN IV ELECTROLYTE REPLACEMENT; Start 12/04/17 at 07:00; Stop 12/15/17 at 13:08; Status DC Magnesium Sulfate 2 gm/Sodium Chloride 104 ml @ 52 mls/hr UNSCH PRN IV ELECTROLYTE REPLACEMENT; Start 12/04/17 at 07:00; Stop 12/15/17 at 13:09; Status DC Magnesium Oxide (Mag-Ox) 800 mg UNSCH PRN PO ELECTROLYTE REPLACEMENT; Start at 07:00; Stop 12/15/17 at 13:09; Status DC Sodium Phosphate 30 mmol/Sodium Chloride 260 ml @ 43.333 mls/ hr UNSCH PRN IV ELECTROLYTE REPLACEMENT; Start 12/04/17 at 07:00; Stop 12/15/17 at 13:09; Status DC Potassium Phosphate (K-Phos) 2,000 mg UNSCH PRN PO ELECTROLYTE REPLACEMENT; Start 12/04/17 at 07:00; Stop 12/15/17 at 13:09; Status DC Potassium Phosphate 30 mmol/ Sodium Chloride 260 ml @ 43.333 mls/ hr UNSCH PRN IV ELECTROLYTE REPLACEMENT; Start 12/04/17 at 07:00; Stop 12/15/17 at 13:09; Status DC Dexmedetomidine HCl 200 mcg/ Sodium Chloride 52 ml @ 4.39 mls/hr TITRATE PRN IV SEDATION Last administered on 12/05/17at 17:06; Start 12/04/17 at 09:15; Stop 12/05/17 at 18:24; Status DC Labetalol HCl (Trandate Inj) 10 mg Q4H PRN IV PUSH SYS BP GREATER THAN 160 MMHG Last administered on 12/09/17at 04:42; Start 12/04/17 at 16:30 Hydralazine HCl (Apresoline Inj) 20 mg Q4H PRN IV PUSH SBP>160, DBP>90 Last administered on 12/08/17at 03:32; Start 12/04/17 at 16:30 Vancomycin HCl 1500 mg/Sodium Chloride 515 ml @ 257.5 mls/ hr ONCE ONCE IV Last administered on 12/05/17at 13:42; Start 12/05/17 at 13:00; Stop 12/05/17 at 14:59; Status DC Insulin Aspart (NovoLOG SUPPLEMENTAL SCALE) 1 ACHS SLIDING SCALE SQ ; Start at 17:00; Stop 12/05/17 at 17:00; Status DC Gadodiamide (Omniscan Pf Inj) 18 ml STK-MED ONCE IVCONTRAST Last administered on 12/05/17at 16:51; Start 12/05/17 at 16:51; Stop 12/05/17 at 16:52; Status DC Acetaminophen/ Hydrocodone Bitart ([place] 5-325 Mg) 1 tab Q6H PRN PO PAIN 8-10 ; Start 12/05/17 at 17:00; Stop 12/05/17 at 18:23; Status DC Insulin Aspart (NovoLOG SUPPLEMENTAL SCALE) 1 Q6H SQ Last administered on at 12:21; Start 12/05/17 at 18:00 Acetaminophen/ Hydrocodone Bitart ([place] 5-325 Mg) 1 tab Q6H PRN PEG PAIN 8- 10 Last administered on 12/07/17at 07:40; Start 12/05/17 at 18:30 Dexmedetomidine HCl 1000 mcg/ Sodium Chloride 250 ml @ 4.22 mls/hr TITRATE PRN IV SEDATION Last administered on 12/08/17at 08:57; Start 12/05/17 at 18:30 Hydralazine HCl (Apresoline) 100 mg Q8H PO Last administered on 12/16/17at 09:19 ; Start 12/06/17 at 02:00 Miscellaneous Medication (ASP Crit: Doc ESBL, MDR A baumannii or P aer) 1 UNSCH X1 PRN .XX PHARMACY DOCUMENTATION; Start 12/06/17 at 10:00; Stop 12/07/17 at 09: 59; Status DC Miscellaneous Medication ([facility] Pharmacy Information) 1 UNSCH X1 PRN XX PHARMACY DOCUMENTATION; Start 12/06/17 at 10:00; Stop 12/07/17 at 09:59; Status DC Meropenem 1000 mg/ Sodium Chloride 100 ml @ 200 mls/hr Q8H IV Last administered on 12/16/17at 12:20; Start 12/06/17 at 12:00 Levofloxacin (Levaquin) 750 mg DAILY PO Last administered on 12/09/17at 08:54; Start 12/06/17 at 11:00; Stop 12/09/17 at 11:20; Status DC Vancomycin HCl 1500 mg/Sodium Chloride 515 ml @ 257.5 mls/ hr ONCE ONCE IV Last administered on 12/07/17at 14:03; Start 12/07/17 at 13:00; Stop 12/07/17 at 14: 59; Status DC Insulin Detemir (Levemir Inj) 5 units Q12HR SQ Last administered on 12/16/17at 09:21; Start 12/07/17 at 21:00 Metoprolol Tartrate (Lopressor Inj) 5 mg STK-MED ONCE .ROUTE Last administered on 12/09/17at 08:30; Start 12/09/17 at 08:23; Stop 12/09/17 at 08:24; Status DC Vancomycin HCl 1500 mg/Sodium Chloride 515 ml @ 257.5 mls/ hr ONCE ONCE IV ; Start 12/09/17 at 14:00; Stop 12/09/17 at 14:00; Status DC Furosemide (Lasix Inj) 40 mg DAILY IV PUSH Last administered on 12/16/17at 09:20 ; Start 12/10/17 at 09:00 Furosemide (Lasix Inj) 40 mg ONCE ONCE IV PUSH Last administered on 12/09/17 10:37; Start 12/09/17 at 10:30; Stop 12/09/17 at 10:31; Status DC Linezolid 300 ml @ 300 mls/hr Q12H IV Last administered on 12/10/17 23:49; Start 12/09/17 at 12:00; Stop 12/11/17 at 09:29; Status DC Fluconazole/ Sodium Chloride 100 ml @ 100 mls/hr Q24H IV Last administered on 12/10/17 11:09; Start 12/09/17 at 12:00; Stop 12/11/17 at 09:29; Status DC Metoprolol Tartrate (Lopressor Inj) 5 mg Q6H PRN IV PUSH HR > 110 Last administered on 12/10/17 21:40; Start 12/09/17 at 13:30 Water (Free Water) 200 ml Q6HR PEG Last administered on 12/15/17 05:10; Start 12/09/17 at 18:00; Stop 12/15/17 at 09:29; Status DC Metoprolol Tartrate (Lopressor Inj) 5 mg ONCE ONCE IV PUSH Last administered on 6/4/18at 01:35; Start 12/10/17 at 01:00; Stop 12/10/17 at 01:01; Status DC Carvedilol (Coreg) 25 mg BID PO Last administered on 12/16/17at 09:19; Start 12/10/17 at 10:30 Sodium Bicarbonate (Sodium Bicarbonate) 325 mg BIDPC PO Last administered on 04/25at 09:19; Start 12/10/17 at 10:30 Methylprednisolone Sodium Succinate (SoluMEDROL INJ) 80 mg ONCE ONCE IV PUSH Last administered on 12/12/17at 10:04; Start 12/12/17 at 09:00; Stop 12/12/17 at 09: 01; Status DC Water (Free Water) 200 ml Q4HR PEG Last administered on 12/16/17at 12:00; Start 12/15/17 at 12:00 Dextrose 1,000 ml @ 125 mls/hr Q8H IV Last administered on 12/16/17at 12:32; Start 12/16/17 at 10:15 A/P Problem List: (1) Pneumonia ICD Code: J18.9 - Pneumonia, unspecified organism (2) CHF (congestive heart failure) ICD Code: I50.9 - Heart failure, unspecified (3) CKD (chronic kidney disease) stage 3, GFR 30-59 ml/min ICD Code: N18.3 - Chronic kidney disease, stage 3 (moderate) (4) Acute renal failure ICD Code: N17.9 - Acute kidney failure, unspecified (5) Diabetes ICD Code: E11.9 - Type 2 diabetes mellitus without complications Status: Chronic Assessment and Plan Pneumonia, respiratory failure Intubated on 11/28/2017, extubated on 12/11/2017 Sputum culture had ESBL, blood cultures had gram-negative cocci Completed treatment with vancomycin and ertapenem Continue duo nebs as needed, continue oxygen MedSurg Metabolic encephalopathy,h/o CVA MRI shows old frontoparietal encephalomalacia EEG shows generalized slowing h/o CHF Reports of volume overload during this hospitalization Continue home dose of Coreg Give Lasix as needed Acute on chronic renal failure No obstruction or hydronephrosis on renal ultrasound Creatinines are nearing normal Appreciate nephrology following Type 2 diabetes Sliding scale insulin coverage with Accu-Cheks Diabetic diet HYPERNATREMIA WILL INCREASE FREE WATER FLUSHES TO Q4H AM LABS WILL SWITCH TO D5 IV AT 125ML/HR AND MONITOR SUGARS AND LABS HYPOKALEMIA WILL REPLACE AM LABS DVT Prophylaxis Heparin Discharge Planning PENDING IMPROVEMENT Candido Beltran DO Dec 16, 2017 15:12
[2017-12-16 17:28] VITALS: BP 133/88; PULSE 97; RESP 19; TEMP 97.9; O2SAT 98
[2017-12-16 20:00] VITALS: BP 141/82; PULSE 91; PULSE 93; RESP 20; TEMP 98.6; O2SAT 96
[2017-12-17] VITALS: BP 146/71; PULSE 92; RESP 20; TEMP 97.6; O2SAT 96
[2017-12-17] MEDS: DEXTROSE 5% IN WATE 1000ML INJ 1,000 ML IV SCH ×2 (02:15→09:16)
[2017-12-17] MEDS: hydrALAZINE HCL 100 MG TAB PO SCH ×3 (03:36→18:01)
[2017-12-17] MEDS: CHLORHEXIDINE GLUCONATE 2 % 1 PACK (2 CLOTHS) TOP SCH (03:36)
[2017-12-17] MEDS: FREE WATER PEG SCH ×5 (03:36→20:00)
[2017-12-17] MEDS: MEROPENEM INJ 1,000 MG in SODIUM CHLORIDE 0.9% INJ 100 ML IV SCH (03:36)
[2017-12-17 04:00] VITALS: BP 138/80; PULSE 97; RESP 20; TEMP 98; O2SAT 97
[2017-12-17] MEDS: INSULIN ASPART SUPPLEMENTAL SCALE SQ SCH ×4 (05:01→22:40)
[2017-12-17 08:00] VITALS: BP 144/73; PULSE 97; RESP 18; TEMP 98; O2SAT 95
[2017-12-17] MEDS: SODIUM CHLORIDE 0.9% FLUSH 10 ML FLUSH IV FLUSH SCH ×2 (09:00→22:43)
[2017-12-17] MEDS: SODIUM BICARBONATE 325 MG TAB PO SCH ×2 (09:10→18:01)
[2017-12-17] MEDS: ASPIRIN 81 MG CHEW TAB CHEW SCH (09:10)
[2017-12-17] MEDS: DOCUSATE SODIUM 50 MG/SENNA 8.6 MG TAB PO SCH ×2 (09:11→21:00)
[2017-12-17] MEDS: CARVEDILOL 12.5 MG TAB PO SCH ×2 (09:11→22:37)
[2017-12-17] MEDS: FUROSEMIDE 40 MG/4 ML VIAL IV PUSH SCH (09:12)
[2017-12-17] MEDS: ARTIFICIAL TEARS OPTH SOLN 15 ML BTL EACH EYE SCH ×3 (09:14→18:01)
[2017-12-17] MEDS: COLLAGENASE OINT 30 GM TUBE TOPICAL SCH (09:14)
[2017-12-17] MEDS: INSULIN DETEMIR 100 UNITS/ML VIAL SQ SCH ×2 (09:14→22:42)
--- NOTE | 2017-12-17 09:30 | RADRPT ---
EXAM DATE: 12/17/2017 9:13 AM EDT AGE/SEX: 47 years / Male INDICATIONS: Follow up on infiltrates. CLINICAL DATA: This is the patient's subsequent encounter. Patient reports that signs and symptoms h ave been present for 1 week and indicates a pain score of Nonresponsive. MEDICAL/SURGICAL HISTORY: Hypertension. Cardiovascular disease. Stroke. CABG. COMPARISON: . FINDINGS: Minimal parenchymal changes persist left base base. The right lung has cleared. Heart remains minimally enlarged. There is no failure. Superior sternal wires fractured. The portion of the bony skeleton visualized is unremarkable. CONCLUSION: Interval improvement with clearing on the right. Minimal parenchymal changes persist left base. Electronically signed by: Candido Emery MD 12/17/2017 9:29 AM EDT
[2017-12-17 10:59] LABS: AUTOMATED NEUTROPHIL # 3.5 TH/MM3 (1.8-7.7); BASOPHIL % 0.5 % (0.0-2.0); EOSINOPHIL # 0.2 TH/MM3 (0-0.4); EOSINOPHIL % 4.1 % (0.0-4.0); HEMATOCRIT 26.6 % (39.0-51.0); HEMOGLOBIN 8.7 GM/DL (13.0-17.0); LYMPH % 26.4 % (9.0-44.0); LYMPHOCYTE # 1.6 TH/MM3 (1.0-4.8); MEAN CELL VOLUME 91.2 FL (80.0-100.0); MEAN CORPUSCULAR HEMOGLOBIN 29.9 PG (27.0-34.0); MEAN CORPUSCULAR HGB CONC 32.7 % (32.0-36.0); MEAN PLATELET VOLUME 9.3 FL (7.0-11.0); MONO % 9.2 % (0.0-8.0); MONOCYTE # 0.5 TH/MM3 (0-0.9); NEUT % 59.8 % (16.0-70.0); PLATELET COUNT 336 TH/MM3 (150-450); RED BLOOD COUNT 2.91 MIL/MM3 (4.50-5.90); RED CELL DISTRIBUTION WIDTH 13.9 % (11.6-17.2); WHITE BLOOD COUNT 5.9 TH/MM3 (4.0-11.0)
[2017-12-17 11:17] LABS: ALBUMIN 2.3 GM/DL (3.4-5.0); ALKALINE PHOSPHATASE 117 U/L (45-117); ALT (GPT) 33 U/L (12-78); AST (GOT) 33 U/L (15-37); BICARBONATE 27.6 MEQ/L (21.0-32.0); BLOOD UREA NITROGEN 44 MG/DL (7-18); CALCIUM 8.3 MG/DL (8.5-10.1); CHLORIDE 114 MEQ/L (98-107); CREATININE 1.17 MG/DL (0.60-1.30); GLOMERULAR FILTRATION RATE 81 ML/MIN (>89); GLUCOSE,RANDOM 176 MG/DL (74-106); PHOSPHORUS 3.6 MG/DL (2.5-4.9); SODIUM (NA) 150 MEQ/L (136-145); TOTAL BILIRUBIN ADULT 0.3 MG/DL (0.2-1.0); TOTAL PROTEIN 7.8 GM/DL (6.4-8.2)
--- NOTE | 2017-12-17 11:38 | HHI.IDPN ---
Subjective Subjective Remarks Patient is a 47-year-old male, who is a resident of the care home, with history of CVA, brought into the hospital for decreased level of consciousness, decreased oxygen saturation. In the ED he was noted to have some pink frothy sputum. He was emergently intubated. His chest x-ray showed bilateral pulmonary infiltrates consistent with pulmonary edema. 2 blood cultures were done in the emergency room, and they are both growing staph hominis. Sputum culture also is now reported as growing Klebsiella ESBL positive. His chest x- ray has shown some worsening of his infiltrates. He was also found to have acute kidney injury. Patient is being managed for pulmonary edema, as well as sepsis. He has been getting vancomycin as well as Zosyn. He was initially febrile on his first hospital day, but that has improved. Patient's white count has been normal. Patient remains on the respirator. He has good urine output, but his creatinine remains elevated. There is no evidence of obstruction on his renal ultrasound. CT of the abdomen and pelvis are showing chronic changes of encephalomalacia compatible with his prior history of CVA. Infectious disease consultation has been requested to evaluate the patient. Notes reviewed Temps normal Good sats, on RA WBC normal Breathing is better CXR with improving infiltrates Sputum with Kelb ESBL and Pseudomonas BC negative UC negative Antibiotics Meropenem Current Medications Medications (Trade) Dose Ordered Sig/Arthur Route Start Time Stop Time Status Last Admin (Brethine Inj) 1 mg UNSCH PRN SQ 11/28/17 05:30 (NS Flush) 2 ml UNSCH PRN IV FLUSH 11/28/17 05:45 12/05/17 08:07 (NS Flush) 2 ml BID IV FLUSH 11/28/17 09:00 12/16/17 21:00 (Tylenol) 650 mg Q6H PRN PO 11/28/17 05:45 12/12/17 12:55 (Tears Naturale Opth Soln) 1 drop TID EACH EYE 11/28/17 09:00 12/17/17 09:14 (Zofran Inj) 4 mg Q6H PRN IV PUSH 11/28/17 05:45 12/09/17 15:48 (Duoneb Neb) 1 ampule Q2HR NEB PRN INH 11/28/17 05:45 12/09/17 20:47 ([facility]) 1 Q361D XX 11/28/17 05:45 (Chlorhexidine 2% Cloth) Taper DAILY@04 TOP 11/29/17 04:00 11/25/18 03:59 12/12/17 03:44 (Chlorhexidine 2% Cloth) 3 pack UNSCH PRN TOP 11/28/17 05:45 (Jessie-Colace) 1 tab BID PO 11/28/17 09:00 12/17/17 09:11 (Milk Of Magnesia Liq) 30 ml Q12H PRN PO 11/28/17 05:45 (Senokot) 17.2 mg Q12H PRN PO 11/28/17 05:45 (Dulcolax Supp) 10 mg DAILY PRN RECTAL 11/28/17 05:45 (Lactulose Liq) 30 ml DAILY PRN PO 11/28/17 05:45 12/01/17 11:49 (D50w (Vial) Inj) 25 ml UNSCH PRN IV PUSH 11/28/17 06:15 (Protonix Inj) 40 mg Q12H IV PUSH 11/28/17 12:00 12/16/17 23:53 (Santyl Oint) 1 applic DAILY TOPICAL 12/01/17 09:00 12/17/17 09:14 (Aspirin Chew) 81 mg DAILY CHEW 12/04/17 09:00 12/17/17 09:10 (Trandate Inj) 10 mg Q4H PRN IV PUSH 12/04/17 16:30 12/09/17 04:42 (Apresoline Inj) 20 mg Q4H PRN IV PUSH 12/04/17 16:30 12/08/17 03:32 (NovoLOG SUPPLEMENTAL SCALE) 1 Q6H SQ 12/05/17 18:00 12/17/17 05:01 ([place] 5-325 Mg) 1 tab Q6H PRN PEG 12/05/17 18:30 12/07/17 07:40 Dexmedetomidine HCl 1000 mcg/ Sodium Chloride 250 ml @ 4.22 mls/hr TITRATE PRN IV 12/05/17 18:30 12/08/17 08:57 (Apresoline) 100 mg Q8H PO 12/06/17 02:00 12/17/17 09:09 Meropenem 1000 mg/ Sodium Chloride 100 ml @ 200 mls/hr Q8H IV 12/06/17 12:00 12/17/17 03:36 (Levemir Inj) 5 units Q12HR SQ 12/07/17 21:00 12/17/17 09:14 (Lasix Inj) 40 mg DAILY IV PUSH 12/10/17 09:00 12/17/17 09:12 (Lopressor Inj) 5 mg Q6H PRN IV PUSH 12/09/17 13:30 12/10/17 21:40 (Coreg) 25 mg BID PO 12/10/17 10:30 12/17/17 09:11 (Sodium Bicarbonate) 325 mg BIDPC PO 12/10/17 10:30 12/17/17 09:10 (Free Water) 300 ml Q4HR PEG 12/17/17 12:00 Lines Chest X-Ray 12/17/17 0000 Signed Impressions: CONCLUSION: Interval improvement with clearing on the right. Minimal parenchymal changes pe rsist left base. Chest X-Ray 12/13/17599 Signed Impressions: CONCLUSION: Slight improvement in left basilar consolidation. New right basilar airspace di sease. Trace pleural fluid. Chest X-Ray 12/09/17 Signed Impressions: CONCLUSION: The patient is status post extubation with worsening atelectasis/consolidation within the left lower lobe and lingula. Chest X-Ray 12/08/17599 Signed Impressions: CONCLUSION: Mild bibasilar areas of consolidation or atelectasis. This appears stable when compared to the most recent chest x-ray. Chest X-Ray 12/06/17599 Signed Impressions: CONCLUSION: Possible slight worsening of pulmonary edema since the prior exam. Chest X-Ray 12/05/17599 Signed Impressions: CONCLUSION: No appreciable change. Foot MRI 12/05/17 0000 Signed Impressions: CONCLUSION: 1. Probable artifact involving the distal portion of the fifth metatarsal on t he T2 sequence could be further characterized with bone scan based on clinical grounds. Otherwise unremarkable. Foot MRI 12/05/17 0000 Signed Impressions: CONCLUSION: 1. Marked enhancement in the subcutaneous tissues in the lateral aspect of the foot. Abnormal areas of bone marrow edema in the fifth metatarsal shaft concer khanh for residual osteomyelitis. There is also edema in the fourth metatarsal h ead concerning for an additional area of osteomyelitis Chest X-Ray 5/29/18 0600 Signed Impressions: CONCLUSION: Moderate pulmonary edema is suspected, however there is slight overall improvem ent in aeration of the left lung is the prior exam. Last Impressions Chest X-Ray 12/02/17599 Signed Impressions: CONCLUSION: No significant change. Left greater than right parenchymal consolidation and sm all left pleural effusion again noted. Abdomen/Pelvis CT 12/01/17 Signed Impressions: CONCLUSION: 1. Bibasilar consolidating lung infiltrate 2. Hepatosplenomegaly 3. Calcified adrenal glands. 4. Trace ascites. 5. PEG tube and Dudley catheter in place. 6. Inguinal lymphadenopathy. 7. Calcific arthropathy of the left hip. 8. No acute intestinal abnormality hydronephrosis or suspicious abdominopelvic masses. Renal Ultrasound 11/28/17 Signed Impressions: CONCLUSION: 1. Echogenic kidneys consistent with medical renal disease. 2. No obstructive uropathy. Head CT 11/28/17 Signed Impressions: CONCLUSION: 1. No acute hemorrhage or mass effect. 2. Large area of encephalomalacia involving the right frontal and parietal lob e. 3. Chronic sinusitis. Brain MRI 11/28/17 Signed Impressions: CONCLUSION: 1. Large area of encephalomalacia in the right medial frontal parietal high co nvexities extending to the vertex. 2. No evidence for acute abnormality. Specifically, no acute infarction, hemor rhage or hydrocephalus. 3. Paranasal sinus mucosal disease. Past Medical History GENERAL: awake, alert, responding, NAD SKIN: Warm and dry. No generalized rash HEAD: Atraumatic. Normocephalic. No temporal wasting, or tenderness. EYES: Pale conjunctiva. No petechia or hemorrhage. Pupils equal, round and reactive to light. No scleral icterus. No injection or drainage. EARS, NOSE AND THROAT: Nose without bleeding or purulent nasal discharge. Moist mucosa NECK: Trachea midline. Supple and not tender, no meningeal signs CARDIOVASCULAR: Regular rate and rhythm. RESPIRATORY: Bilateral diffuse rhonchi ABDOMEN: Soft, mildly distended, no reaction to palpation, no guarding. Bowel sounds present and normoactive. EXTREMITIES: No clubbing, cyanosis. Has edema of both hands. Dressings to both feet intact. Well perfused and warm. NEUROLOGICAL: Awake, following PSYCHIATRIC: CAlm LINE: No evidence of infection Allergies: Coded Allergies: No Known Allergies (Verified Allergy, Severe, 11/03/06) Objective . Vital Signs Date Time Temp Pulse Resp B/P (MAP) Pulse Ox O2 Delivery O2 Flow Rate FiO2 12/17/17 08:00 98.0 97 18 144/73 (96) 95 12/17/17 04:00 98.0 97 20 138/80 (99) 97 12/17/17 00:00 97.6 92 20 146/71 (96) 96 12/16/17 20:00 91 12/16/17 20:00 98.6 93 20 141/82 (101) 96 12/16/17 17:28 97.9 97 19 133/88 (103) 98 12/16/17 13:12 97.7 93 16 140/80 (100) 92 . Laboratory Tests Test 12/16/17 04:35 12/17/17 10:05 White Blood Count 6.5 TH/MM3 5.9 TH/MM3 Red Blood Count 2.80 MIL/MM3 2.91 MIL/MM3 Hemoglobin 8.4 GM/DL 8.7 GM/DL Hematocrit 25.2 % 26.6 % Mean Corpuscular Volume 90.0 FL 91.2 FL Mean Corpuscular Hemoglobin 29.9 PG 29.9 PG Mean Corpuscular Hemoglobin Concent 33.2 % 32.7 % Red Cell Distribution Width 13.7 % 13.9 % Platelet Count 343 TH/MM3 336 TH/MM3 Mean Platelet Volume 9.0 FL 9.3 FL Neutrophils (%) (Auto) 60.9 % 59.8 % Lymphocytes (%) (Auto) 25.9 % 26.4 % Monocytes (%) (Auto) 9.2 % 9.2 % Eosinophils (%) (Auto) 3.6 % 4.1 % Basophils (%) (Auto) 0.4 % 0.5 % Neutrophils # (Auto) 4.0 TH/MM3 3.5 TH/MM3 Lymphocytes # (Auto) 1.7 TH/MM3 1.6 TH/MM3 Monocytes # (Auto) 0.6 TH/MM3 0.5 TH/MM3 Eosinophils # (Auto) 0.2 TH/MM3 0.2 TH/MM3 Basophils # (Auto) 0.0 TH/MM3 0.0 TH/MM3 CBC Comment DIFF FINAL DIFF FINAL Differential Comment Laboratory Tests Test 12/16/17 04:35 12/16/17 11:00 12/17/17 10:05 Blood Urea Nitrogen 53 MG/DL 44 MG/DL Creatinine 1.26 MG/DL 1.17 MG/DL Random Glucose 146 MG/DL 176 MG/DL Total Protein 7.7 GM/DL 7.8 GM/DL Albumin 2.3 GM/DL 2.3 GM/DL Calcium Level 8.7 MG/DL 8.3 MG/DL Phosphorus Level 3.6 MG/DL 3.6 MG/DL Magnesium Level 2.1 MG/DL 2.0 MG/DL Alkaline Phosphatase 107 U/L 117 U/L Aspartate Amino Transf (AST/SGOT) 32 U/L 33 U/L Alanine Aminotransferase (ALT/SGPT) 36 U/L 33 U/L Total Bilirubin 0.4 MG/DL 0.3 MG/DL Sodium Level 157 MEQ/L 156 MEQ/L 150 MEQ/L Potassium Level 3.2 MEQ/L 3.3 MEQ/L Chloride Level 122 MEQ/L 114 MEQ/L Carbon Dioxide Level 25.6 MEQ/L 27.6 MEQ/L Anion Gap 9 MEQ/L 8 MEQ/L Estimat Glomerular Filtration Rate 74 ML/MIN 81 ML/MIN Imaging Last 72 hours Impressions Chest X-Ray 12/11/17 Signed Impressions: CONCLUSION: Dense infiltrate left lung base. Last Impressions Chest X-Ray 12/02/17 0600 Signed Impressions: CONCLUSION: No significant change. Left greater than right parenchymal consolidation and sm all left pleural effusion again noted. Abdomen/Pelvis CT 12/01/17 Signed Impressions: CONCLUSION: 1. Bibasilar consolidating lung infiltrate 2. Hepatosplenomegaly 3. Calcified adrenal glands. 4. Trace ascites. 5. PEG tube and Dudley catheter in place. 6. Inguinal lymphadenopathy. 7. Calcific arthropathy of the left hip. 8. No acute intestinal abnormality hydronephrosis or suspicious abdominopelvic masses. Renal Ultrasound 11/28/17 Signed Impressions: CONCLUSION: 1. Echogenic kidneys consistent with medical renal disease. 2. No obstructive uropathy. Head CT 11/28/17 Signed Impressions: CONCLUSION: 1. No acute hemorrhage or mass effect. 2. Large area of encephalomalacia involving the right frontal and parietal lob e. 3. Chronic sinusitis. Brain MRI 11/28/17 Signed Impressions: CONCLUSION: 1. Large area of encephalomalacia in the right medial frontal parietal high co nvexities extending to the vertex. 2. No evidence for acute abnormality. Specifically, no acute infarction, hemor rhage or hydrocephalus. 3. Paranasal sinus mucosal disease. Physical Exam GENERAL: awake, focusing, follows some commands, on nasal O2, not in respiratory distress. SKIN: Cool and dry. No generalized rash HEAD: Atraumatic. Normocephalic. No temporal wasting, or tenderness. EYES: Pale conjunctiva. No petechia or hemorrhage. Pupils equal, round and reactive to light. No scleral icterus. No injection or drainage. EARS, NOSE AND THROAT: Nose without bleeding or purulent nasal discharge. Drooling clear secretions NECK: Trachea midline. Supple and not tender, no meningeal signs CARDIOVASCULAR: Regular rate and rhythm. RESPIRATORY: Decreased breath souinds bilaterally ABDOMEN: Soft, mildly distended, no reaction to palpation, no guarding. Bowel sounds present and normoactive. EXTREMITIES: No clubbing, cyanosis. Has edema of both hands. No pedal edema. Has dressings to both feet, dry and intact. Well perfused and warm. NEUROLOGICAL: Sedated on the vent. PSYCHIATRIC: Unable to assess. LINE: No evidence of infection : Dudley catheter in place, urine looks clear Assessment & Plan Remarks IMPRESSION Klebsiella ESBL+ in sputum with bilateral infiltrates, S/P Rx - has CHF and with PNA (?Aspiration, came in with decreased LOC) CHF, EF good on his echo Respiratory failure, extubated 6/2 New HCAP, Kleb and Pseudomonas Possible Osteo L foot - has chronic ulcers, both feet, debrided by podiatry at bedside Acute kidney injury (+) BC with Staph hominis, ?source Hx CVA SNF resident Fevers, ?due to lung, atelectasis, vs other etiology - better RECOMMENDATION Stop Meropenem Follow temps Monitor progress Monitor off Abx Followup with wound care for his feet ulcers Seems clinically stable Sharlene Kim MD Dec 17, 2017 11:38
[2017-12-17 12:00] VITALS: BP 129/72; PULSE 90; RESP 19; TEMP 97.8; O2SAT 98
[2017-12-17] MEDS: PANTOPRAZOLE SODIUM 40 MG VIAL IV PUSH SCH ×2 (12:08→22:38)
--- NOTE | 2017-12-17 14:35 | HHI.PR ---
Subjective Remarks Patient has no new complaints. Sodium improving. Stable on room air. Objective Vitals Vital Signs Date Time Temp Pulse Resp B/P (MAP) Pulse Ox O2 Delivery O2 Flow Rate FiO2 12/17/17 12:00 97.8 90 19 129/72 (91) 98 12/17/17 08:00 98.0 97 18 144/73 (96) 95 12/17/17 04:00 98.0 97 20 138/80 (99) 97 12/17/17 00:00 97.6 92 20 146/71 (96) 96 12/16/17 20:00 91 12/16/17 20:00 98.6 93 20 141/82 (101) 96 12/16/17 17:28 97.9 97 19 133/88 (103) 98 I/O 12/16/17 12/16/17 12/16/17 12/17/17 12/17/17 12/17/17 07:00 15:00 23:00 07:00 15:00 23:00 Intake Total 1220 ml 0 ml 1120 ml Balance 1220 ml 0 ml 1120 ml Intake Oral 0 ml 0 ml 0 ml Tube Feeding 620 ml 520 ml Other 600 ml 600 ml # Voids 3 5 6 # Bowel Movements 0 3 3 Result Diagram: 12/17/17 1005 12/17/17 1005 Imaging Last Impressions Chest X-Ray 12/17/17 0000 Signed Impressions: CONCLUSION: Interval improvement with clearing on the right. Minimal parenchymal changes pe rsist left base. Foot MRI 12/05/17 0000 Signed Impressions: CONCLUSION: 1. Probable artifact involving the distal portion of the fifth metatarsal on t he T2 sequence could be further characterized with bone scan based on clinical grounds. Otherwise unremarkable. Foot X-Ray 12/02/17 0000 Signed Impressions: CONCLUSION: 1. Very limited study. 2. No gross acute abnormality. Abdomen/Pelvis CT 12/01/17 0000 Signed Impressions: CONCLUSION: 1. Bibasilar consolidating lung infiltrate 2. Hepatosplenomegaly 3. Calcified adrenal glands. 4. Trace ascites. 5. PEG tube and Dudley catheter in place. 6. Inguinal lymphadenopathy. 7. Calcific arthropathy of the left hip. 8. No acute intestinal abnormality hydronephrosis or suspicious abdominopelvic masses. Renal Ultrasound 11/28/17 0000 Signed Impressions: CONCLUSION: 1. Echogenic kidneys consistent with medical renal disease. 2. No obstructive uropathy. Head CT 11/28/17 0000 Signed Impressions: CONCLUSION: 1. No acute hemorrhage or mass effect. 2. Large area of encephalomalacia involving the right frontal and parietal lob e. 3. Chronic sinusitis. Brain MRI 11/28/17 0000 Signed Impressions: CONCLUSION: 1. Large area of encephalomalacia in the right medial frontal parietal high co nvexities extending to the vertex. 2. No evidence for acute abnormality. Specifically, no acute infarction, hemor rhage or hydrocephalus. 3. Paranasal sinus mucosal disease. Objective Remarks GENERAL: Chronically ill-appearing male. Left-sided hemiparesis. CARDIOVASCULAR: Normal rate and regular rhythm without murmurs, gallops, or rubs. RESPIRATORY: Good respiratory efforts. Diffuse, faint rhonchi bilaterally. Wet cough. GASTROINTESTINAL: Abdomen soft, non-tender, non-distended. Normal active bowel sounds MUSCULOSKELETAL: Extremities without cyanosis, or edema. NEURO: Awake alert. Left-sided hemiparesis. PSYCH: Calm Procedures INTUBATION AND VENT MANAGEMENT AND EXTUBATION A/P Problem List: (1) Pneumonia ICD Code: J18.9 - Pneumonia, unspecified organism (2) CHF (congestive heart failure) ICD Code: I50.9 - Heart failure, unspecified (3) CKD (chronic kidney disease) stage 3, GFR 30-59 ml/min ICD Code: N18.3 - Chronic kidney disease, stage 3 (moderate) (4) Acute renal failure ICD Code: N17.9 - Acute kidney failure, unspecified (5) Diabetes ICD Code: E11.9 - Type 2 diabetes mellitus without complications Status: Chronic Assessment and Plan 47-year-old male with: Pneumonia, respiratory failure Intubated on 11/28/2017, extubated on 12/11/2017 Sputum culture had ESBL, blood cultures had gram-negative cocci Completed treatment with vancomycin and ertapenem Continue duo nebs as needed, continue oxygen Appreciate recommendations from ID. Monitor off antibiotics. Metabolic encephalopathy,h/o CVA MRI shows old frontoparietal encephalomalacia EEG shows generalized slowing h/o CHF Reports of volume overload during this hospitalization Continue home dose of Coreg Give Lasix as needed Acute on chronic renal failure No obstruction or hydronephrosis on renal ultrasound Creatinines are nearing normal Appreciate nephrology following Type 2 diabetes Sliding scale insulin coverage with Accu-Cheks Diabetic diet HYPERNATREMIA -Improving. Increase free water to 300 mL's every 4 hours. Monitor BMP in a.m. HYPOKALEMIA Replace and monitor. Discharge Planning Monitor off antibiotics. Correct electrolytes. Blaire Estrada MD Dec 17, 2017 14:35
[2017-12-17 16:00] VITALS: BP 129/73; PULSE 89; RESP 18; TEMP 97.9; O2SAT 97
[2017-12-17] MEDS: POTASSIUM CHLOR 20 MEQ PREMIX 100 ML IV SCH ×2 (16:00→18:06)
[2017-12-17 20:00] VITALS: BP 143/80; PULSE 93; RESP 19; TEMP 98.4; O2SAT 96
[2017-12-18] VITALS (7 sets, daily range): BP systolic 120–156; BP diastolic 65–78; PULSE 88–95; RESP 17–19; TEMP 97–98.1; O2SAT 94–99
[2017-12-18] MEDS: CHLORHEXIDINE GLUCONATE 2 % 1 PACK (2 CLOTHS) TOP SCH (00:23)
[2017-12-18] MEDS: FREE WATER PEG SCH ×7 (03:08→23:20)
[2017-12-18] MEDS: hydrALAZINE HCL 100 MG TAB PO SCH ×3 (03:08→17:18)
[2017-12-18] MEDS: INSULIN ASPART SUPPLEMENTAL SCALE SQ SCH ×4 (05:40→23:20)
[2017-12-18 07:21] LABS: HEMATOCRIT 24.5 % (39.0-51.0); HEMOGLOBIN 8.2 GM/DL (13.0-17.0); MEAN CELL VOLUME 89.3 FL (80.0-100.0); MEAN CORPUSCULAR HEMOGLOBIN 29.7 PG (27.0-34.0); MEAN CORPUSCULAR HGB CONC 33.3 % (32.0-36.0); MEAN PLATELET VOLUME 9.5 FL (7.0-11.0); PLATELET COUNT 351 TH/MM3 (150-450); RED BLOOD COUNT 2.74 MIL/MM3 (4.50-5.90); RED CELL DISTRIBUTION WIDTH 13.5 % (11.6-17.2); WHITE BLOOD COUNT 7.6 TH/MM3 (4.0-11.0)
[2017-12-18 07:35] LABS: BICARBONATE 27.1 MEQ/L (21.0-32.0); CALCIUM 8.4 MG/DL (8.5-10.1); CREATININE 1.2 MG/DL (0.60-1.30)
[2017-12-18] MEDS: CARVEDILOL 12.5 MG TAB PO SCH ×2 (09:29→21:51)
[2017-12-18] MEDS: SODIUM BICARBONATE 325 MG TAB PO SCH ×2 (09:29→17:18)
[2017-12-18] MEDS: FUROSEMIDE 40 MG/4 ML VIAL IV PUSH SCH (09:29)
[2017-12-18] MEDS: ASPIRIN 81 MG CHEW TAB CHEW SCH (09:29)
[2017-12-18] MEDS: DOCUSATE SODIUM 50 MG/SENNA 8.6 MG TAB PO SCH ×2 (09:29→21:00)
[2017-12-18] MEDS: INSULIN DETEMIR 100 UNITS/ML VIAL SQ SCH ×2 (09:30→21:52)
[2017-12-18] MEDS: SODIUM CHLORIDE 0.9% FLUSH 10 ML FLUSH IV FLUSH SCH ×2 (09:31→21:52)
[2017-12-18] MEDS: COLLAGENASE OINT 30 GM TUBE TOPICAL SCH (09:32)
[2017-12-18] MEDS: ARTIFICIAL TEARS OPTH SOLN 15 ML BTL EACH EYE SCH ×3 (09:32→17:19)
--- NOTE | 2017-12-18 10:58 | HHI.IDPN ---
Subjective Subjective Remarks Patient is a 47-year-old male, who is a resident of the [facility], with history of CVA, brought into the hospital for decreased level of consciousness, decreased oxygen saturation. In the ED he was noted to have some pink frothy sputum. He was emergently intubated. His chest x-ray showed bilateral pulmonary infiltrates consistent with pulmonary edema. 2 blood cultures were done in the emergency room, and they are both growing staph hominis. Sputum culture also is now reported as growing Klebsiella ESBL positive. His chest x- ray has shown some worsening of his infiltrates. He was also found to have acute kidney injury. Patient is being managed for pulmonary edema, as well as sepsis. He has been getting vancomycin as well as Zosyn. He was initially febrile on his first hospital day, but that has improved. Patient's white count has been normal. Patient remains on the respirator. He has good urine output, but his creatinine remains elevated. There is no evidence of obstruction on his renal ultrasound. CT of the abdomen and pelvis are showing chronic changes of encephalomalacia compatible with his prior history of CVA. Infectious disease consultation has been requested to evaluate the patient. Notes reviewed Temps normal Good sats, on RA WBC normal Breathing is better CXR with improving infiltrates Sputum with Kelb ESBL and Pseudomonas, S/P Rx BC negative UC negative Antibiotics Current Medications Medications (Trade) Dose Ordered Sig/Arthur Route Start Time Stop Time Status Last Admin (Brethine Inj) 1 mg UNSCH PRN SQ 11/28/17 05:30 (NS Flush) 2 ml UNSCH PRN IV FLUSH 11/28/17 05:45 12/05/17 08:07 (NS Flush) 2 ml BID IV FLUSH 11/28/17 09:00 12/18/17 09:31 (Tylenol) 650 mg Q6H PRN PO 11/28/17 05:45 12/12/17 12:55 (Tears Naturale Opth Soln) 1 drop TID EACH EYE 11/28/17 09:00 12/18/17 09:32 (Zofran Inj) 4 mg Q6H PRN IV PUSH 11/28/17 05:45 12/09/17 15:48 (Duoneb Neb) 1 ampule Q2HR NEB PRN INH 11/28/17 05:45 12/09/17 20:47 ([facility] Nursing Information) 1 Q361D XX 11/28/17 05:45 (Chlorhexidine 2% Cloth) 3 pack Taper DAILY@04 TOP 11/29/17 04:00 11/25/18 03:59 12/12/17 03:44 (Chlorhexidine 2% Cloth) 3 pack UNSCH PRN TOP 11/28/17 05:45 (Jessie-Colace) 1 tab BID PO 11/28/17 09:00 12/18/17 09:29 (Milk Of Magnesia Liq) 30 ml Q12H PRN PO 11/28/17 05:45 (Senokot) 17.2 mg Q12H PRN PO 11/28/17 05:45 (Dulcolax Supp) 10 mg DAILY PRN RECTAL 11/28/17 05:45 (Lactulose Liq) 30 ml DAILY PRN PO 11/28/17 05:45 12/01/17 11:49 (D50w (Vial) Inj) 25 ml UNSCH PRN IV PUSH 11/28/17 06:15 (Protonix Inj) 40 mg Q12H IV PUSH 11/28/17 12:00 12/17/17 22:38 (Santyl Oint) 1 applic DAILY TOPICAL 12/01/17 09:00 12/18/17 09:32 (Aspirin Chew) 81 mg DAILY CHEW 12/04/17 09:00 12/18/17 09:29 (Trandate Inj) 10 mg Q4H PRN IV PUSH 12/04/17 16:30 12/09/17 04:42 (Apresoline Inj) 20 mg Q4H PRN IV PUSH 12/04/17 16:30 12/08/17 03:32 (NovoLOG SUPPLEMENTAL SCALE) 1 Q6H SQ 12/05/17 18:00 12/18/17 05:40 ([place] 5-325 Mg) 1 tab Q6H PRN PEG 12/05/17 18:30 12/07/17 07:40 Dexmedetomidine HCl 1000 mcg/ Sodium Chloride 250 ml @ 4.22 mls/hr TITRATE PRN IV 12/05/17 18:30 12/08/17 08:57 (Apresoline) 100 mg Q8H PO 12/06/17 02:00 12/18/17 03:08 (Levemir Inj) 5 units Q12HR SQ 12/07/17 21:00 12/18/17 09:30 (Lasix Inj) 40 mg DAILY IV PUSH 12/10/17 09:00 12/18/17 09:29 (Lopressor Inj) 5 mg Q6H PRN IV PUSH 12/09/17 13:30 12/10/17 21:40 (Coreg) 25 mg BID PO 12/10/17 10:30 12/18/17 09:29 (Sodium Bicarbonate) 325 mg BIDPC PO 12/10/17 10:30 12/18/17 09:29 (Free Water) 300 ml Q4HR PEG 12/17/17 12:00 12/18/17 08:00 Lines Chest X-Ray 12/17/17 0000 Signed Impressions: CONCLUSION: Interval improvement with clearing on the right. Minimal parenchymal changes pe rsist left base. Chest X-Ray 12/13/17 06 Signed Impressions: CONCLUSION: Slight improvement in left basilar consolidation. New right basilar airspace di sease. Trace pleural fluid. Chest X-Ray 12/09/17 Signed Impressions: CONCLUSION: The patient is status post extubation with worsening atelectasis/consolidation within the left lower lobe and lingula. Chest X-Ray 12/08/17 06 Signed Impressions: CONCLUSION: Mild bibasilar areas of consolidation or atelectasis. This appears stable when compared to the most recent chest x-ray. Chest X-Ray 12/06/17 06 Signed Impressions: CONCLUSION: Possible slight worsening of pulmonary edema since the prior exam. Chest X-Ray 12/05/17 06 Signed Impressions: CONCLUSION: No appreciable change. Foot MRI 12/05/17 0000 Signed Impressions: CONCLUSION: 1. Probable artifact involving the distal portion of the fifth metatarsal on t he T2 sequence could be further characterized with bone scan based on clinical grounds. Otherwise unremarkable. Foot MRI 12/05/17 0000 Signed Impressions: CONCLUSION: 1. Marked enhancement in the subcutaneous tissues in the lateral aspect of the foot. Abnormal areas of bone marrow edema in the fifth metatarsal shaft concer khanh for residual osteomyelitis. There is also edema in the fourth metatarsal h ead concerning for an additional area of osteomyelitis Chest X-Ray 12/04/17 0600 Signed Impressions: CONCLUSION: Moderate pulmonary edema is suspected, however there is slight overall improvem ent in aeration of the left lung is the prior exam. Last Impressions Chest X-Ray 12/02/17 0600 Signed Impressions: CONCLUSION: No significant change. Left greater than right parenchymal consolidation and sm all left pleural effusion again noted. Abdomen/Pelvis CT 12/01/17 Signed Impressions: CONCLUSION: 1. Bibasilar consolidating lung infiltrate 2. Hepatosplenomegaly 3. Calcified adrenal glands. 4. Trace ascites. 5. PEG tube and Dudley catheter in place. 6. Inguinal lymphadenopathy. 7. Calcific arthropathy of the left hip. 8. No acute intestinal abnormality hydronephrosis or suspicious abdominopelvic masses. Renal Ultrasound 11/28/17 Signed Impressions: CONCLUSION: 1. Echogenic kidneys consistent with medical renal disease. 2. No obstructive uropathy. Head CT 11/28/17 Signed Impressions: CONCLUSION: 1. No acute hemorrhage or mass effect. 2. Large area of encephalomalacia involving the right frontal and parietal lob e. 3. Chronic sinusitis. Brain MRI 11/28/17 Signed Impressions: CONCLUSION: 1. Large area of encephalomalacia in the right medial frontal parietal high co nvexities extending to the vertex. 2. No evidence for acute abnormality. Specifically, no acute infarction, hemor rhage or hydrocephalus. 3. Paranasal sinus mucosal disease. Past Medical History GENERAL: awake, alert, responding, NAD SKIN: Warm and dry. No generalized rash HEAD: Atraumatic. Normocephalic. No temporal wasting, or tenderness. EYES: Pale conjunctiva. No petechia or hemorrhage. Pupils equal, round and reactive to light. No scleral icterus. No injection or drainage. EARS, NOSE AND THROAT: Nose without bleeding or purulent nasal discharge. Moist mucosa NECK: Trachea midline. Supple and not tender, no meningeal signs CARDIOVASCULAR: Regular rate and rhythm. RESPIRATORY: Bilateral diffuse rhonchi ABDOMEN: Soft, mildly distended, no reaction to palpation, no guarding. Bowel sounds present and normoactive. EXTREMITIES: No clubbing, cyanosis. Has edema of both hands. Dressings to both feet intact. Well perfused and warm. NEUROLOGICAL: Awake, following PSYCHIATRIC: CAlm LINE: No evidence of infection Allergies: Coded Allergies: No Known Allergies (Verified Allergy, Severe, 11/03/06) Objective . Vital Signs Date Time Temp Pulse Resp B/P (MAP) Pulse Ox O2 Delivery O2 Flow Rate FiO2 12/18/17 08:00 98.0 95 17 127/70 (89) 96 12/18/17 04:00 97.0 94 18 125/65 (85) 94 12/18/17 01:25 89 12/18/17 00:00 98.1 94 19 156/78 (104) 96 12/17/17 20:00 98.4 93 19 143/80 (101) 96 12/17/17 16:00 97.9 89 18 129/73 (91) 97 12/17/17 12:00 97.8 90 19 129/72 (91) 98 . Laboratory Tests Test 12/17/17 10:05 12/18/17 06:14 White Blood Count 5.9 TH/MM3 7.6 TH/MM3 Red Blood Count 2.91 MIL/MM3 2.74 MIL/MM3 Hemoglobin 8.7 GM/DL 8.2 GM/DL Hematocrit 26.6 % 24.5 % Mean Corpuscular Volume 91.2 FL 89.3 FL Mean Corpuscular Hemoglobin 29.9 PG 29.7 PG Mean Corpuscular Hemoglobin Concent 32.7 % 33.3 % Red Cell Distribution Width 13.9 % 13.5 % Platelet Count 336 TH/MM3 351 TH/MM3 Mean Platelet Volume 9.3 FL 9.5 FL Neutrophils (%) (Auto) 59.8 % Lymphocytes (%) (Auto) 26.4 % Monocytes (%) (Auto) 9.2 % Eosinophils (%) (Auto) 4.1 % Basophils (%) (Auto) 0.5 % Neutrophils # (Auto) 3.5 TH/MM3 Lymphocytes # (Auto) 1.6 TH/MM3 Monocytes # (Auto) 0.5 TH/MM3 Eosinophils # (Auto) 0.2 TH/MM3 Basophils # (Auto) 0.0 TH/MM3 CBC Comment DIFF FINAL Differential Comment Laboratory Tests Test 12/16/17 11:00 12/17/17 10:05 12/18/17 06:14 Sodium Level 156 MEQ/L 150 MEQ/L 144 MEQ/L Blood Urea Nitrogen 44 MG/DL 41 MG/DL Creatinine 1.17 MG/DL 1.20 MG/DL Random Glucose 176 MG/DL 175 MG/DL Total Protein 7.8 GM/DL Albumin 2.3 GM/DL Calcium Level 8.3 MG/DL 8.4 MG/DL Phosphorus Level 3.6 MG/DL Magnesium Level 2.0 MG/DL Alkaline Phosphatase 117 U/L Aspartate Amino Transf (AST/SGOT) 33 U/L Alanine Aminotransferase (ALT/SGPT) 33 U/L Total Bilirubin 0.3 MG/DL Potassium Level 3.3 MEQ/L 3.5 MEQ/L Chloride Level 114 MEQ/L 107 MEQ/L Carbon Dioxide Level 27.6 MEQ/L 27.1 MEQ/L Anion Gap 8 MEQ/L 10 MEQ/L Estimat Glomerular Filtration Rate 81 ML/MIN 79 ML/MIN Imaging Last 72 hours Impressions Chest X-Ray 12/11/17 Signed Impressions: CONCLUSION: Dense infiltrate left lung base. Last Impressions Chest X-Ray 12/02/17 06 Signed Impressions: CONCLUSION: No significant change. Left greater than right parenchymal consolidation and sm all left pleural effusion again noted. Abdomen/Pelvis CT 12/01/17 Signed Impressions: CONCLUSION: 1. Bibasilar consolidating lung infiltrate 2. Hepatosplenomegaly 3. Calcified adrenal glands. 4. Trace ascites. 5. PEG tube and Dudley catheter in place. 6. Inguinal lymphadenopathy. 7. Calcific arthropathy of the left hip. 8. No acute intestinal abnormality hydronephrosis or suspicious abdominopelvic masses. Renal Ultrasound 11/28/17 Signed Impressions: CONCLUSION: 1. Echogenic kidneys consistent with medical renal disease. 2. No obstructive uropathy. Head CT 11/28/17 Signed Impressions: CONCLUSION: 1. No acute hemorrhage or mass effect. 2. Large area of encephalomalacia involving the right frontal and parietal lob e. 3. Chronic sinusitis. Brain MRI 11/28/17 Signed Impressions: CONCLUSION: 1. Large area of encephalomalacia in the right medial frontal parietal high co nvexities extending to the vertex. 2. No evidence for acute abnormality. Specifically, no acute infarction, hemor rhage or hydrocephalus. 3. Paranasal sinus mucosal disease. Physical Exam GENERAL: awake, focusing, follows some commands, on nasal O2, not in respiratory distress. SKIN: Cool and dry. No generalized rash HEAD: Atraumatic. Normocephalic. No temporal wasting, or tenderness. EYES: Pale conjunctiva. No petechia or hemorrhage. Pupils equal, round and reactive to light. No scleral icterus. No injection or drainage. EARS, NOSE AND THROAT: Nose without bleeding or purulent nasal discharge. Drooling clear secretions NECK: Trachea midline. Supple and not tender, no meningeal signs CARDIOVASCULAR: Regular rate and rhythm. RESPIRATORY: Decreased breath souinds bilaterally ABDOMEN: Soft, mildly distended, no reaction to palpation, no guarding. Bowel sounds present and normoactive. EXTREMITIES: No clubbing, cyanosis. Has edema of both hands. No pedal edema. Has dressings to both feet, dry and intact. Well perfused and warm. NEUROLOGICAL: Following some commands LINE: No evidence of infection : Dudley catheter in place, urine looks clear Assessment & Plan Remarks IMPRESSION Klebsiella ESBL+ in sputum with bilateral infiltrates, S/P Rx - has CHF and with PNA (?Aspiration, came in with decreased LOC) CHF, EF good on his echo Respiratory failure, extubated 6/2 New HCAP, Kleb and Pseudomonas, S/P Rx Possible Osteo L foot - has chronic ulcers, both feet, debrided by podiatry at bedside Acute kidney injury (+) BC with Staph hominis, ?source Hx CVA SNF resident Fevers, ?due to lung, atelectasis, vs other etiology - resolved RECOMMENDATION Follow temps Monitor progress Monitor off Abx Followup with wound care for his feet ulcers Seems clinically stable from ID standpoint I will be available prn Please call if with any new ID issue or question Sharlene Kim MD Dec 18, 2017 10:58
--- NOTE | 2017-12-18 11:45 | HHI.PR ---
Subjective Remarks Notified by RN that patient had a seizure after his bath this morning. Prior to the event, he was conversing with them. Episode described as generalized body shaking. Patient able to say his name but speech is slurred. Not following commands consistently but can move RUE. Objective Vitals Vital Signs Date Time Temp Pulse Resp B/P (MAP) Pulse Ox O2 Delivery O2 Flow Rate FiO2 12/18/17 08:00 98.0 95 17 127/70 (89) 96 12/18/17 04:00 97.0 94 18 125/65 (85) 94 12/18/17 01:25 89 12/18/17 00:00 98.1 94 19 156/78 (104) 96 12/17/17 20:00 98.4 93 19 143/80 (101) 96 12/17/17 16:00 97.9 89 18 129/73 (91) 97 12/17/17 12:00 97.8 90 19 129/72 (91) 98 I/O 12/17/17 12/17/17 12/17/17 12/18/17 12/18/17 12/18/17 07:00 15:00 23:00 07:00 15:00 23:00 Intake Total 1120 ml 100 ml Balance 1120 ml 100 ml Intake Oral 0 ml 0 ml IV Total 100 ml Tube Feeding 520 ml Other 600 ml # Voids 6 6 4 # Bowel Movements 3 3 2 Result Diagram: 12/18/1761312/18/17613 Objective Remarks GENERAL: Chronically ill-appearing male. Left-sided hemiparesis. CARDIOVASCULAR: Normal rate and regular rhythm without murmurs, gallops, or rubs. RESPIRATORY: Good respiratory efforts. Diffuse, faint rhonchi bilaterally. Wet cough. GASTROINTESTINAL: Abdomen soft, non-tender, non-distended. Normal active bowel sounds MUSCULOSKELETAL: Extremities without cyanosis, or edema. NEURO: Awake. Left-sided hemiparesis. Intermittently follows commands. Slurred speech. Procedures INTUBATION AND VENT MANAGEMENT AND EXTUBATION A/P Problem List: (1) Seizure-like activity ICD Code: R56.9 - Unspecified convulsions (2) Pneumonia ICD Code: J18.9 - Pneumonia, unspecified organism (3) CHF (congestive heart failure) ICD Code: I50.9 - Heart failure, unspecified (4) CKD (chronic kidney disease) stage 3, GFR 30-59 ml/min ICD Code: N18.3 - Chronic kidney disease, stage 3 (moderate) (5) Acute renal failure ICD Code: N17.9 - Acute kidney failure, unspecified (6) Diabetes ICD Code: E11.9 - Type 2 diabetes mellitus without complications Status: Chronic Assessment and Plan 47-year-old male with: New onset seizure like activity and slurred speech: - Known history of CVA with residual left-sided hemiparesis. - Will obtain brain CT to rule out CVA. EEG. neuro checks - Consult neurology Pneumonia, respiratory failure Intubated on 11/28/2017, extubated on 12/11/2017 Sputum culture had ESBL, blood cultures had gram-negative cocci Completed treatment with vancomycin and ertapenem Continue duo nebs as needed, continue oxygen Appreciate recommendations from ID. Monitor off antibiotics. 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 h/o CHF Reports of volume overload during this hospitalization Continue home dose of Coreg Give Lasix as needed Acute on chronic renal failure No obstruction or hydronephrosis on renal ultrasound Creatinines are nearing normal Appreciate nephrology following Type 2 diabetes Sliding scale insulin coverage with Accu-Cheks Diabetic diet HYPERNATREMIA -Improving. Increase free water to 300 mL's every 4 hours. Monitor BMP in a.m. HYPOKALEMIA Replace and monitor. Discharge Planning Need workup for seizure r/o stroke today. Blaire Estrada MD Dec 18, 2017 11:45
[2017-12-18] MEDS: PANTOPRAZOLE SODIUM 40 MG VIAL IV PUSH SCH (12:33)
--- NOTE | 2017-12-18 13:08 | RADRPT ---
EXAM DATE: 12/18/2017 1:03 PM EDT AGE/SEX: 47 years / Male INDICATIONS: Seizure, rule out new stroke CLINICAL DATA: This is the patient's initial encounter. Patient reports that signs and symptoms have been present for 1 day and indicates a pain score of Nonresponsive. MEDICAL/SURGICAL HISTORY: Cerebrovascular disease. Hypertension. Diabetes. None. RADIATION DOSE: 40.25 CTDI (mGy) COMPARISON: [facility] [place]RA[place]/O [place], 11/28/2017. . TECHNIQUE: CT of the head without contrast. Using automated exposure control and adjustment of the mA and/or kV according to patient size, radiation dose was kept as low as reasonably achievable to ob tain optimal diagnostic quality images. FINDINGS: Appearance of the brain is unchanged compared to recent evaluation. Right frontoparietal encephalomalacia along the right anterior cerebral artery distribution is again noted. There are no characteristic findings of acute infarct, hemorrhage, mass or edema. Basal ganglionic calcification is again noted. CONCLUSION: 1. No evidence of acute infarct, hemorrhage or mass. 2. Stable right frontal parietal encephalomalacia Electronically signed by: Balbir Garcia MD 12/18/2017 1:07 PM EDT
--- NOTE | 2017-12-18 15:34 | PD.CONS ---
History of Present Illness Service Neurology Consult Requested By Medical for seizures Primary Care Physician Unknown History of Present Illness 47-year-old male admitted for mental status changes multiorgan dysfunction syndrome under the critical care service. Now the regular floor under the hospitalist service. Apparently had a seizure neurology consult for further evaluation. Patient is a poor historian and information obtained from medical chart. CT brain scan performed on contrast demonstrated old right hemispheric stroke. Does have renal failure acute on chronic. Also followed by infectious disease. We will start IV Keppra. Review of Systems ROS Limitations: As above and admission H&P somewhat limited secondary to confusion Past Family Social History Allergies: Coded Allergies: No Known Allergies (Verified Allergy, Severe, 11/03/06) Past Medical History Diabetes Hypertension MRSA skin infection of the foot Anemia Chronic pain Hemiparesis secondary to left-sided CVA Dysphagia with feeding tube placement History of psychiatric disorder Depression High cholesterol Hiatal hernia Past Surgical History Unknown unobtainable secondary to clinical condition the patient. Patient does have evidence of a prior sternotomy with a healed midline chest scar and a feeding tube placement. Reported Medications Zofran (Ondansetron HCl) 4 Mg Tab 4 Mg G-TUBE Q6HR PRN Zantac (Ranitidine HCl) 150 Mg Tab 75 Mg G-TUBE DAILY Vitamin D-1000 (Cholecalciferol) 1,000 Unit Tab 5,000 Units G-TUBE DAILY Vancomycin Inj (Vancomycin HCl) 1 Gram Inj 1,250 Mg IV DAILY Tylenol (Acetaminophen) 325 Mg Tab 650 Mg PO Q6H PRN Phenergan Supp (Promethazine HCl) 25 Mg Supp 25 Mg RECTAL Q4H PRN Nitrostat SL (Nitroglycerin) 0.4 Mg Subl 0.4 Mg SL DIRECTED PRN 1 tablet under the tongue as needed for chest pain. Repeat every 5 minutes for a total of 3 DOSES or call 911 if NO relief. Tramadol (Tramadol HCl) 50 Mg Tab 50 Mg G-TUBE BID PRN Sodium Bicarbonate 325 Mg Tab 325 Mg PO BIDPC Novolin R Inj (Insulin Human Regular) 1,000 Unit/10 Ml Vial 0 SQ DIRECTED Sliding Scale As Directed. Nephro-Susy (B-Complex W/ C & Folic Acid) 1 Tab 1 Tab PO DAILY Melatonin 5 Mg Tab 3 Mg PO HS Lipitor (Atorvastatin Calcium) 20 Mg Tab 20 Mg PO HS Lantus Inj (Insulin Glargine) 1,000 Unit/10 Ml Vial 10 Units SQ HS Duoneb (Ipratropium-Albuterol Neb) 0.5-2.5 Mg/3 Ml Neb 1 Nebule INH Q4HR NEB [gent. sulfate 1%] 1 Applic TOPICAL Q8HR [diff-stat capsule] 1 Cap G-TUBE BID Escitalopram (Escitalopram Oxalate) 10 Mg Tab 15 Mg PO DAILY Coreg (Carvedilol) 25 Mg Tab 25 Mg PO BID Cipro (Ciprofloxacin HCl) 250 Mg Tab 250 Mg PO BID Baclofen 10 Mg Tab 10 Mg PO DAILY Augmentin (Amoxicillin-Clavulanate) 875-125 Mg Tab 1 Tab PO BID No Current Meds (Miscellaneous Medication) [facility] [place] Active Ordered Medications See MAR Family History Unknown and unobtainable secondary to the clinical condition of the patient Social History No EtOH, tobacco, or other drugs her prior medical records. Review of Systems All other ROS: ROS reviewed as documented in chart Past Family Social History Allergies: Coded Allergies: No Known Allergies (Verified Allergy, Severe, 11/03/06) Active Ordered Medications Current Medications Medications (Trade) Dose Ordered Sig/Arthur Route Start Time Stop Time Status Last Admin (Brethine Inj) 1 mg UNSCH PRN SQ 11/28/17 05:30 (NS Flush) 2 ml UNSCH PRN IV FLUSH 11/28/17 05:45 12/05/17 08:07 (NS Flush) 2 ml BID IV FLUSH 11/28/17 09:00 12/18/17 09:31 (Tylenol) 650 mg Q6H PRN PO 11/28/17 05:45 12/12/17 12:55 (Tears Naturale Opth Soln) 1 drop TID EACH EYE 11/28/17 09:00 12/18/17 12:34 (Zofran Inj) 4 mg Q6H PRN IV PUSH 11/28/17 05:45 12/09/17 15:48 (Duoneb Neb) 1 ampule Q2HR NEB PRN INH 11/28/17 05:45 12/09/17 20:47 ([facility] [place] Nursing Information) 1 Q361D XX 11/28/17 05:45 (Chlorhexidine 2% Cloth) 3 pack Taper DAILY@04 TOP 11/29/17 04:00 11/25/18 03:59 12/12/17 03:44 (Chlorhexidine 2% Cloth) 3 pack UNSCH PRN TOP 11/28/17 05:45 (Jessie-Colace) 1 tab BID PO 11/28/17 09:00 12/18/17 09:29 (Milk Of Magnesia Liq) 30 ml Q12H PRN PO 11/28/17 05:45 (Senokot) 17.2 mg Q12H PRN PO 11/28/17 05:45 (Dulcolax Supp) 10 mg DAILY PRN RECTAL 11/28/17 05:45 (Lactulose Liq) 30 ml DAILY PRN PO 11/28/17 05:45 12/01/17 11:49 (D50w (Vial) Inj) 25 ml UNSCH PRN IV PUSH 11/28/17 06:15 (Protonix Inj) 40 mg Q12H IV PUSH 11/28/17 12:00 12/18/17 12:33 (Santyl Oint) 1 applic DAILY TOPICAL 12/01/17 09:00 12/18/17 09:32 (Aspirin Chew) 81 mg DAILY CHEW 12/04/17 09:00 12/18/17 09:29 (Trandate Inj) 10 mg Q4H PRN IV PUSH 12/04/17 16:30 12/09/17 04:42 (Apresoline Inj) 20 mg Q4H PRN IV PUSH 12/04/17 16:30 12/08/17 03:32 (NovoLOG SUPPLEMENTAL SCALE) 1 Q6H SQ 12/05/17 18:00 12/18/17 12:33 ([place] 5-325 Mg) 1 tab Q6H PRN PEG 12/05/17 18:30 12/07/17 07:40 Dexmedetomidine HCl 1000 mcg/ Sodium Chloride 250 ml @ 4.22 mls/hr TITRATE PRN IV 12/05/17 18:30 12/08/17 08:57 (Apresoline) 100 mg Q8H PO 12/06/17 02:00 12/18/17 10:00 (Levemir Inj) 5 units Q12HR SQ 12/07/17 21:00 12/18/17 09:30 (Lasix Inj) 40 mg DAILY IV PUSH 12/10/17 09:00 12/18/17 09:29 (Lopressor Inj) 5 mg Q6H PRN IV PUSH 12/09/17 13:30 12/10/17 21:40 (Coreg) 25 mg BID PO 12/10/17 10:30 12/18/17 09:29 (Sodium Bicarbonate) 325 mg BIDPC PO 12/10/17 10:30 12/18/17 09:29 (Free Water) 300 ml Q4HR PEG 12/17/17 12:00 12/18/17 12:00 Levetriacetam 500 mg/Sodium Chloride 105 ml @ 420 mls/hr Q12H IV 12/18/17 15:00 Exam I&O / VS Vital Signs Date Time Temp Pulse Resp B/P (MAP) Pulse Ox O2 Delivery O2 Flow Rate FiO2 12/18/17 12:00 97.3 88 17 132/77 (95) 99 12/18/17 08:00 98.0 95 17 127/70 (89) 96 12/18/17 04:00 97.0 94 18 125/65 (85) 94 12/18/17 01:25 89 12/18/17 00:00 98.1 94 19 156/78 (104) 96 12/17/17 20:00 98.4 93 19 143/80 (101) 96 12/17/17 16:00 97.9 89 18 129/73 (91) 97 Exam Comments 47-year-old laying in bed no acute distress he is awake follows inconsistently bradykinetic say 1-2 words left lower facial weakness left spastic hemiparesis bilateral leg weakness left lower extremity and mild contracture no involuntary movements appreciated Review/Management Diagnosis/Plan: (1) Seizure-like activity ICD Codes: R56.9 - Unspecified convulsions Status: Acute Plan: Possible seizure activity noted by caregiver. He is at increased risk with previous stroke and thus may have post stroke seizures worsened by underlying infection renal failure Recommendations Continue [facility] Follow-up EEG Seizure fall precautions (2) Chronic ischemic right MCA stroke ICD Codes: I69.30 - Unspecified sequelae of cerebral infarction Status: Chronic (3) CKD (chronic kidney disease) stage 3, GFR 30-59 ml/min ICD Codes: N18.3 - Chronic kidney disease, stage 3 (moderate) Status: Chronic Plan: Per medical, renal (4) CHF (congestive heart failure) ICD Codes: I50.9 - Heart failure, unspecified Status: Chronic Plan: Per medical team Problem Qualifiers (1) CHF (congestive heart failure): Jacob Perry MD Dec 18, 2017 15:34
[2017-12-18] MEDS: levETIRAcetam INJ 500 MG in SODIUM CHLORIDE 0.9% INJ 100 ML IV SCH (15:39)
--- NOTE | 2017-12-18 21:52 | MG ---
cc: Jacob Perry MD, Mandeep MD EEG NUMBER [id number] Asymmetric right hemispheric slowing, electrode pop artifact occurring there at times. Occasional mild sharply contoured activity followed by generalized slowing suggestive of drowsy state followed by stage I sleep. Reduced driving with photic stimulation. Single EKG showing sinus rhythm. Occasional artifact. INTERPRETATION: Asymmetric right hemispheric slowing consistent with structural lesion and sleep state. No active seizure activity. Clinical correlation. MD MARGIE Mena/ , 09:38 PM , 09:50 PM
[2017-12-19] VITALS: BP 120/73; PULSE 96; RESP 16; TEMP 98.9; O2SAT 98
[2017-12-19] MEDS: levETIRAcetam INJ 500 MG in SODIUM CHLORIDE 0.9% INJ 100 ML IV SCH ×3 (02:27→18:22)
[2017-12-19] MEDS: PANTOPRAZOLE SODIUM 40 MG VIAL IV PUSH SCH ×3 (02:27→12:00)
[2017-12-19] MEDS: hydrALAZINE HCL 100 MG TAB PO SCH ×3 (02:28→17:46)
[2017-12-19] MEDS: CHLORHEXIDINE GLUCONATE 2 % 1 PACK (2 CLOTHS) TOP SCH (03:20)
[2017-12-19] MEDS ORDERED: levETIRAcetam 500 MG/5 ML UDC PEG ONE (03:30)
[2017-12-19 04:00] VITALS: BP 120/68; PULSE 92; RESP 14; TEMP 99.6; O2SAT 96
[2017-12-19] MEDS: FREE WATER PEG SCH ×5 (04:00→20:00)
[2017-12-19] MEDS: INSULIN ASPART SUPPLEMENTAL SCALE SQ SCH ×3 (05:06→16:36)
[2017-12-19 08:00] VITALS: BP 108/58; PULSE 97; RESP 16; TEMP 98.6; O2SAT 97
[2017-12-19] MEDS: SODIUM CHLORIDE 0.9% FLUSH 10 ML FLUSH IV FLUSH SCH ×2 (09:00→22:31)
[2017-12-19] MEDS: FUROSEMIDE 40 MG/4 ML VIAL IV PUSH SCH (09:00)
[2017-12-19] MEDS: CARVEDILOL 12.5 MG TAB PO SCH ×2 (09:21→22:22)
[2017-12-19] MEDS: SODIUM BICARBONATE 325 MG TAB PO SCH ×2 (09:21→17:46)
[2017-12-19] MEDS: INSULIN DETEMIR 100 UNITS/ML VIAL SQ SCH ×2 (09:21→22:31)
[2017-12-19] MEDS: DOCUSATE SODIUM 50 MG/SENNA 8.6 MG TAB PO SCH ×2 (09:21→21:00)
[2017-12-19] MEDS: ASPIRIN 81 MG CHEW TAB CHEW SCH (09:21)
[2017-12-19] MEDS: ARTIFICIAL TEARS OPTH SOLN 15 ML BTL EACH EYE SCH ×3 (09:22→17:46)
--- NOTE | 2017-12-19 09:22 | HHI.PR ---
Review/Management Diagnosis/Plan: (1) Seizure-like activity ICD Codes: R56.9 - Unspecified convulsions Status: Acute Plan: Possible seizure activity noted by caregiver. He is at increased risk with previous stroke and thus may have post stroke seizures worsened by underlying infection renal failure Recommendations Continue Keppra Follow-up EEG-no seizure activity, right hemispheric slowing Seizure fall precautions Glucose control Follow exam (2) Chronic ischemic right MCA stroke ICD Codes: I69.30 - Unspecified sequelae of cerebral infarction Status: Chronic (3) CKD (chronic kidney disease) stage 3, GFR 30-59 ml/min ICD Codes: N18.3 - Chronic kidney disease, stage 3 (moderate) Status: Chronic Plan: Per medical, renal (4) CHF (congestive heart failure) ICD Codes: I50.9 - Heart failure, unspecified Status: Chronic Plan: Per medical team Subjective Subjective Comments No acute events reported No headache No chest pain No dyspnea Active Medications Current Medications Medications (Trade) Dose Ordered Sig/Arthur Route Start Time Stop Time Status Last Admin (Brethine Inj) 1 mg UNSCH PRN SQ 11/28/17 05:30 (NS Flush) 2 ml UNSCH PRN IV FLUSH 11/28/17 05:45 12/05/17 08:07 (NS Flush) 2 ml BID IV FLUSH 11/28/17 09:00 12/18/17 21:52 (Tylenol) 650 mg Q6H PRN PO 11/28/17 05:45 12/12/17 12:55 (Tears Naturale Opth Soln) 1 drop TID EACH EYE 11/28/17 09:00 12/18/17 17:19 (Zofran Inj) 4 mg Q6H PRN IV PUSH 11/28/17 05:45 12/09/17 15:48 (Duoneb Neb) 1 ampule Q2HR NEB PRN INH 11/28/17 05:45 12/09/17 20:47 [place] [place] 1 Q361D XX 11/28/17 05:45 (Chlorhexidine 2% Cloth) 3 pack Taper DAILY@04 TOP 11/29/17 04:00 11/25/18 03:59 12/12/17 03:44 (Chlorhexidine 2% Cloth) 3 pack UNSCH PRN TOP 11/28/17 05:45 (Jessie-Colace) 1 tab BID PO 11/28/17 09:00 12/18/17 09:29 (Milk Of Magnesia Liq) 30 ml Q12H PRN PO 11/28/17 05:45 (Senokot) 17.2 mg Q12H PRN PO 11/28/17 05:45 (Dulcolax Supp) 10 mg DAILY PRN RECTAL 11/28/17 05:45 (Lactulose Liq) 30 ml DAILY PRN PO 11/28/17 05:45 12/01/17 11:49 (D50w (Vial) Inj) 25 ml UNSCH PRN IV PUSH 11/28/17 06:15 (Protonix Inj) 40 mg Q12H IV PUSH 11/28/17 12:00 12/18/17 12:33 (Santyl Oint) 1 applic DAILY TOPICAL 12/01/17 09:00 12/18/17 09:32 (Aspirin Chew) 81 mg DAILY CHEW 12/04/17 09:00 12/18/17 09:29 (Trandate Inj) 10 mg Q4H PRN IV PUSH 12/04/17 16:30 12/09/17 04:42 (Apresoline Inj) 20 mg Q4H PRN IV PUSH 12/04/17 16:30 12/08/17 03:32 (NovoLOG SUPPLEMENTAL SCALE) 1 Q6H SQ 12/05/17 18:00 12/19/17 05:06 (Tofte 5-325 Mg) 1 tab Q6H PRN PEG 12/05/17 18:30 12/07/17 07:40 Dexmedetomidine HCl 1000 mcg/ Sodium Chloride 250 ml @ 4.22 mls/hr TITRATE PRN IV 12/05/17 18:30 12/08/17 08:57 (Apresoline) 100 mg Q8H PO 12/06/17 02:00 12/19/17 02:28 (Levemir Inj) 5 units Q12HR SQ 12/07/17 21:00 12/18/17 21:52 (Lasix Inj) 40 mg DAILY IV PUSH 12/10/17 09:00 12/18/17 09:29 (Lopressor Inj) 5 mg Q6H PRN IV PUSH 12/09/17 13:30 12/10/17 21:40 (Coreg) 25 mg BID PO 12/10/17 10:30 12/18/17 21:51 (Sodium Bicarbonate) 325 mg BIDPC PO 12/10/17 10:30 12/18/17 17:18 (Free Water) 300 ml Q4HR PEG 12/17/17 12:00 12/19/17 04:00 Levetriacetam 500 mg/Sodium Chloride 105 ml @ 420 mls/hr Q12H IV 12/18/17 15:00 12/18/17 15:39 Allergies Allergies Coded Allergies No Known Allergies (Verified Allergy, Severe, 11/03/06) Review of Systems All other ROS: ROS reviewed as documented in chart Exam I&O / VS Vital Signs Date Time Temp Pulse Resp B/P (MAP) Pulse Ox O2 Delivery O2 Flow Rate FiO2 12/19/17 04:00 99.6 92 14 120/68 (85) 96 12/19/17 00:00 98.9 96 16 120/73 (89) 98 12/18/17 20:00 98.0 94 18 120/77 (91) 98 12/18/17 16:00 97.0 93 17 125/70 (88) 94 12/18/17 12:00 97.3 88 17 132/77 (95) 99 Exam Comments awake follows inconsistently bradykinetic say 1-2 words left lower facial weakness left spastic hemiparesis bilateral leg weakness left lower extremity and mild contracture no involuntary movements appreciated Objective Micro and Labs Date/Time Source Procedure Growth Status 12/09/17 12:26 Blood Peripheral Aerobic Blood Culture - Final NO GROWTH IN 5 DAYS Complete 12/09/17 12:26 Blood Peripheral Anaerobic Blood Culture - Final NO GROWTH IN 5 DAYS Complete 12/01/17 17:30 Stool Stool Stool Occult Blood (MADALYN) - Final HEMOCCULT NEGATIVE Complete 12/06/17 11:00 Sputum Endotracheal Gram Stain - Final Complete 12/06/17 11:00 Sputum Culture - Final Klebsiella Pneumoniae Esbl Pos Pseudomonas Aeruginosa Complete 12/09/17 16:00 Urine Catheterized Urine Urine Culture - Final NO GROWTH IN 48 HOURS. Complete Problem Qualifiers (1) CHF (congestive heart failure): Jacob Perry MD Dec 19, 2017 09:22
[2017-12-19 12:00] VITALS: BP 102/55; PULSE 93; RESP 17; TEMP 98.6; O2SAT 98
[2017-12-19] MEDS: COLLAGENASE OINT 30 GM TUBE TOPICAL SCH (12:51)
--- NOTE | 2017-12-19 14:39 | HHI.PR ---
Subjective Remarks Patient sleeping in bed arousable but he does not answer question, he refused IV access earlier today No reported seizure activity overnight Objective Vitals Vital Signs Date Time Temp Pulse Resp B/P (MAP) Pulse Ox O2 Delivery O2 Flow Rate FiO2 12/19/17 12:00 98.6 93 17 102/55 (71) 98 12/19/17 08:00 98.6 97 16 108/58 (75) 97 12/19/17 04:00 99.6 92 14 120/68 (85) 96 12/19/17 00:00 98.9 96 16 120/73 (89) 98 12/18/17 20:00 98.0 94 18 120/77 (91) 98 12/18/17 16:00 97.0 93 17 125/70 (88) 94 I/O 12/18/17 12/18/17 12/18/17 12/19/17 12/19/17 12/19/17 07:00 15:00 23:00 07:00 15:00 23:00 Intake Total 100 ml 105 ml Balance 100 ml 105 ml Intake Oral 0 ml 0 ml IV Total 100 ml 105 ml # Voids 4 4 3 # Bowel Movements 2 2 Result Diagram: 12/18/1761312/18/17 0614 Objective Remarks GENERAL: This is a well-nourished, well-developed patient, sleeping CARDIOVASCULAR: RRR, no gallops, or rubs. RESPIRATORY: Fair air entry bilaterally. No W, R, or R GASTROINTESTINAL: Abdomen soft, non-tender, nondistended. Positive bowel sounds MUSCULOSKELETAL: Extremities without clubbing, cyanosis, or edema. Pedal pulses appreciated NEUROLOGICAL: Sleeping but arousable. Procedures INTUBATION AND VENT MANAGEMENT AND EXTUBATION A/P Problem List: (1) Seizure-like activity ICD Code: R56.9 - Unspecified convulsions Status: Acute (2) Pneumonia ICD Code: J18.9 - Pneumonia, unspecified organism (3) CHF (congestive heart failure) ICD Code: I50.9 - Heart failure, unspecified Status: Chronic (4) CKD (chronic kidney disease) stage 3, GFR 30-59 ml/min ICD Code: N18.3 - Chronic kidney disease, stage 3 (moderate) Status: Chronic (5) Acute renal failure ICD Code: N17.9 - Acute kidney failure, unspecified (6) Diabetes ICD Code: E11.9 - Type 2 diabetes mellitus without complications Status: Chronic Assessment and Plan 47-year-old male with: 12/19: Stable no seizure activity reported, he refused IV access today so I will switch the Keppra to p.o. New onset seizure like activity and slurred speech: - Known history of CVA with residual left-sided hemiparesis. - brain CT to rule out CVA. EEG. neuro checks -Appreciate neurology consultation placed patient on antiepileptic since she is high risk post stroke Pneumonia, respiratory failure Intubated on 11/28/2017, extubated on 12/11/2017 Sputum culture had ESBL, blood cultures had gram-negative cocci Completed treatment with vancomycin and ertapenem Continue duo nebs as needed, continue oxygen Appreciate recommendations from ID. Monitor off antibiotics. 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 h/o CHF Reports of volume overload during this hospitalization Continue home dose of Coreg Give Lasix as needed Acute on chronic renal failure No obstruction or hydronephrosis on renal ultrasound Creatinines are nearing normal Appreciate nephrology following Type 2 diabetes Sliding scale insulin coverage with Accu-Cheks Diabetic diet HYPERNATREMIA -Improving. Increase free water to 300 mL's every 4 hours. Monitor BMP in a.m. HYPOKALEMIA Replace and monitor. Problem Qualifiers (1) CHF (congestive heart failure): Mary Perez MD Dec 19, 2017 14:39
[2017-12-19 16:00] VITALS: BP 118/62; PULSE 94; RESP 18; TEMP 98; O2SAT 97
[2017-12-19 20:00] VITALS: BP 113/63; PULSE 98; RESP 20; TEMP 98.5; O2SAT 99
[2017-12-19] MEDS ORDERED: levETIRAcetam 500 MG TAB PO SCH (21:00)
[2017-12-20] VITALS: BP 121/66; PULSE 85; RESP 20; TEMP 98; O2SAT 96
[2017-12-20] MEDS: CHLORHEXIDINE GLUCONATE 2 % 1 PACK (2 CLOTHS) TOP SCH (01:14)
[2017-12-20] MEDS: PANTOPRAZOLE SODIUM 40 MG VIAL IV PUSH SCH ×3 (01:20→22:48)
[2017-12-20] MEDS: hydrALAZINE HCL 100 MG TAB PO SCH ×3 (01:20→18:01)
[2017-12-20 04:00] VITALS: BP 123/67; PULSE 91; RESP 20; TEMP 98.6; O2SAT 96
[2017-12-20] MEDS: FREE WATER PEG SCH ×7 (04:00→23:10)
[2017-12-20] MEDS: levETIRAcetam INJ 500 MG in SODIUM CHLORIDE 0.9% INJ 100 ML IV SCH ×2 (06:00→18:01)
[2017-12-20] MEDS: INSULIN ASPART SUPPLEMENTAL SCALE SQ SCH ×5 (06:00→23:12)
[2017-12-20 08:00] VITALS: BP 120/63; PULSE 88; RESP 16; TEMP 98.5; O2SAT 97
[2017-12-20] MEDS: ASPIRIN 81 MG CHEW TAB CHEW SCH (08:38)
[2017-12-20] MEDS: SODIUM BICARBONATE 325 MG TAB PO SCH ×2 (08:39→18:01)
[2017-12-20] MEDS: INSULIN DETEMIR 100 UNITS/ML VIAL SQ SCH ×2 (08:40→22:49)
[2017-12-20] MEDS: CARVEDILOL 12.5 MG TAB PO SCH ×2 (08:41→22:48)
[2017-12-20] MEDS: FUROSEMIDE 40 MG/4 ML VIAL IV PUSH SCH (08:41)
[2017-12-20] MEDS: DOCUSATE SODIUM 50 MG/SENNA 8.6 MG TAB PO SCH ×2 (08:41→21:00)
[2017-12-20] MEDS: COLLAGENASE OINT 30 GM TUBE TOPICAL SCH (08:42)
[2017-12-20] MEDS: SODIUM CHLORIDE 0.9% FLUSH 10 ML FLUSH IV FLUSH SCH ×2 (08:42→22:49)
[2017-12-20] MEDS: ARTIFICIAL TEARS OPTH SOLN 15 ML BTL EACH EYE SCH ×3 (08:42→18:01)
[2017-12-20 12:00] VITALS: BP 103/56; PULSE 86; RESP 18; TEMP 98; O2SAT 97
--- NOTE | 2017-12-20 14:09 | HHI.PR ---
Subjective Remarks Patient resting in bed she is awake he responded to simple command he was able to grasp his right hand on my finger and wiggle his right toes but he does not verbal and not answering question Discussed with the nurse no acute issue Objective Vitals Vital Signs Date Time Temp Pulse Resp B/P (MAP) Pulse Ox O2 Delivery O2 Flow Rate FiO2 12/20/17 12:00 98.0 86 18 103/56 (72) 97 12/20/17 08:00 98.5 88 16 120/63 (82) 97 12/20/17 04:00 98.6 91 20 123/67 (85) 96 12/20/17 00:00 98.0 85 20 121/66 (84) 96 12/19/17 20:00 98.5 98 20 113/63 (80) 99 12/19/17 16:00 98.0 94 18 118/62 (80) 97 I/O 12/19/17 12/19/17 12/19/17 12/20/17 12/20/17 12/20/17 07:00 15:00 23:00 07:00 15:00 23:00 Intake Total 0 ml 0 ml 705 ml Balance 0 ml 0 ml 705 ml Intake Oral 0 ml 0 ml IV Total 105 ml Other 600 ml # Voids 3 2 2 # Bowel Movements 1 1 Result Diagram: 12/18/1761312/18/17613 Objective Remarks GENERAL: This is a well-nourished, well-developed patient, in no acute distress CARDIOVASCULAR: RRR, no gallops, or rubs. RESPIRATORY: Fair air entry bilaterally. No W, R, or R GASTROINTESTINAL: Abdomen soft, non-tender, nondistended. Positive bowel sounds MUSCULOSKELETAL: Extremities without clubbing, cyanosis, or edema. Pedal pulses appreciated NEUROLOGICAL: Awake alert, able to grasp his right hand, and wiggle right toes, left sided paralysis Procedures INTUBATION AND VENT MANAGEMENT AND EXTUBATION A/P Problem List: (1) Seizure-like activity ICD Code: R56.9 - Unspecified convulsions Status: Acute (2) Pneumonia ICD Code: J18.9 - Pneumonia, unspecified organism (3) CHF (congestive heart failure) ICD Code: I50.9 - Heart failure, unspecified Status: Chronic (4) CKD (chronic kidney disease) stage 3, GFR 30-59 ml/min ICD Code: N18.3 - Chronic kidney disease, stage 3 (moderate) Status: Chronic (5) Acute renal failure ICD Code: N17.9 - Acute kidney failure, unspecified (6) Diabetes ICD Code: E11.9 - Type 2 diabetes mellitus without complications Status: Chronic Assessment and Plan 47-year-old male with: 12/19: Stable no seizure activity reported, he refused IV access today so I will switch the Keppra to p.o. 12/20: Continue current care appreciate neurology recommendation, continue Keppra , high risk for seizure after stroke, no further seizure activity over last 2 days A/P: New onset seizure like activity and slurred speech: - Known history of CVA with residual left-sided hemiparesis. - brain CT to rule out CVA. EEG. neuro checks -Appreciate neurology consultation placed patient on antiepileptic since she is high risk post stroke Pneumonia, respiratory failure Intubated on 11/28/2017, extubated on 12/11/2017 Sputum culture had ESBL, blood cultures had gram-negative cocci Completed treatment with vancomycin and ertapenem Continue duo nebs as needed, continue oxygen Appreciate recommendations from ID. Monitor off antibiotics. 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 h/o CHF Reports of volume overload during this hospitalization Continue home dose of Coreg Give Lasix as needed Acute on chronic renal failure No obstruction or hydronephrosis on renal ultrasound Creatinines are nearing normal Appreciate nephrology following Type 2 diabetes Sliding scale insulin coverage with Accu-Cheks Diabetic diet HYPERNATREMIA -Improving. Increase free water to 300 mL's every 4 hours. Monitor BMP in a.m. HYPOKALEMIA Replace and monitor. Problem Qualifiers (1) CHF (congestive heart failure): Mary Perez MD Dec 20, 2017 14:09
[2017-12-20 16:00] VITALS: BP 126/71; PULSE 89; RESP 18; TEMP 98.2; O2SAT 98
[2017-12-20 20:00] VITALS: BP 123/67; PULSE 87; PULSE 91; RESP 20; TEMP 97.9; O2SAT 97
[2017-12-21] VITALS (7 sets, daily range): BP systolic 108–127; BP diastolic 60–75; PULSE 87–95; RESP 17–20; TEMP 97.4–98.2; O2SAT 95–99
[2017-12-21] MEDS: CHLORHEXIDINE GLUCONATE 2 % 1 PACK (2 CLOTHS) TOP SCH (04:00)
[2017-12-21] MEDS: FREE WATER PEG SCH ×5 (04:00→20:00)
[2017-12-21] MEDS: INSULIN ASPART SUPPLEMENTAL SCALE SQ SCH ×3 (04:34→18:00)
[2017-12-21] MEDS: hydrALAZINE HCL 100 MG TAB PO SCH ×3 (04:35→18:09)
[2017-12-21] MEDS: levETIRAcetam INJ 500 MG in SODIUM CHLORIDE 0.9% INJ 100 ML IV SCH (04:36)
[2017-12-21] MEDS: INSULIN DETEMIR 100 UNITS/ML VIAL SQ SCH ×2 (08:40→21:40)
[2017-12-21] MEDS: SODIUM BICARBONATE 325 MG TAB PO SCH ×2 (08:42→18:09)
[2017-12-21] MEDS: COLLAGENASE OINT 30 GM TUBE TOPICAL SCH (08:42)
[2017-12-21] MEDS: ARTIFICIAL TEARS OPTH SOLN 15 ML BTL EACH EYE SCH ×3 (08:42→18:00)
[2017-12-21] MEDS: DOCUSATE SODIUM 50 MG/SENNA 8.6 MG TAB PO SCH ×2 (08:43→21:00)
[2017-12-21] MEDS: FUROSEMIDE 40 MG/4 ML VIAL IV PUSH SCH (08:43)
[2017-12-21] MEDS: ASPIRIN 81 MG CHEW TAB CHEW SCH (08:43)
[2017-12-21] MEDS: CARVEDILOL 12.5 MG TAB PO SCH ×2 (08:44→21:00)
[2017-12-21] MEDS: SODIUM CHLORIDE 0.9% FLUSH 10 ML FLUSH IV FLUSH SCH ×2 (08:49→21:00)
[2017-12-21] MEDS: PANTOPRAZOLE SODIUM 40 MG VIAL IV PUSH SCH (12:47)
--- NOTE | 2017-12-21 15:31 | HHI.PR ---
Subjective Remarks Patient continued to be nonverbal He is laying in bed looks comfortable Objective Vitals Vital Signs Date Time Temp Pulse Resp B/P (MAP) Pulse Ox O2 Delivery O2 Flow Rate FiO2 12/21/17 12:00 98.0 88 17 116/63 (80) 97 12/21/17 08:00 98.2 87 17 108/60 (76) 97 12/21/17 04:00 97.9 88 18 123/66 (85) 97 12/21/17 00:00 97.6 92 20 127/69 (88) 98 12/20/17 20:00 87 12/20/17 20:00 97.9 91 20 123/67 (85) 97 12/20/17 16:00 98.2 89 18 126/71 (89) 98 I/O 12/20/17 12/20/17 12/20/17 12/21/17 12/21/17 12/21/17 07:00 15:00 23:00 07:00 15:00 23:00 Intake Total 0 ml 705 ml 861 ml 105 ml 600 ml Balance 0 ml 705 ml 861 ml 105 ml 600 ml Intake Oral 0 ml 0 ml 0 ml IV Total 105 ml 105 ml 105 ml Tube Feeding 426 ml Tube Irrigant 30 ml Other 600 ml 300 ml 600 ml # Voids 2 5 3 # Bowel Movements 1 2 1 Result Diagram: 12/18/1761312/18/17613 Objective Remarks GENERAL: This is a well-nourished, well-developed patient, sleeping CARDIOVASCULAR: RRR, no gallops, or rubs. RESPIRATORY: Fair air entry bilaterally. No W, R, or R GASTROINTESTINAL: Abdomen soft, non-tender, nondistended. Positive bowel sounds MUSCULOSKELETAL: Extremities without clubbing, cyanosis, or edema. Pedal pulses appreciated NEUROLOGICAL: Sleeping but arousable. Procedures INTUBATION AND VENT MANAGEMENT AND EXTUBATION A/P Problem List: (1) Seizure-like activity ICD Code: R56.9 - Unspecified convulsions Status: Acute (2) Pneumonia ICD Code: J18.9 - Pneumonia, unspecified organism (3) CHF (congestive heart failure) ICD Code: I50.9 - Heart failure, unspecified Status: Chronic (4) CKD (chronic kidney disease) stage 3, GFR 30-59 ml/min ICD Code: N18.3 - Chronic kidney disease, stage 3 (moderate) Status: Chronic (5) Acute renal failure ICD Code: N17.9 - Acute kidney failure, unspecified (6) Diabetes ICD Code: E11.9 - Type 2 diabetes mellitus without complications Status: Chronic Assessment and Plan 47-year-old male with: 12/19: Stable no seizure activity reported, he refused IV access today so I will switch the Keppra to p.o. 12/20: Continue current care appreciate neurology recommendation, continue Keppra , high risk for seizure after stroke, no further seizure activity over last 2 days 12/21: Patient refused lab work today blood withdrawal, will order PT OT, neurology following appreciate their assistance, change Keppra to per GI tube A/P: New onset seizure like activity and slurred speech: - Known history of CVA with residual left-sided hemiparesis. - brain CT to rule out CVA. EEG. neuro checks -Appreciate neurology consultation placed patient on antiepileptic since she is high risk post stroke Pneumonia, respiratory failure Intubated on 11/28/2017, extubated on 12/11/2017 Sputum culture had ESBL, blood cultures had gram-negative cocci Completed treatment with vancomycin and ertapenem Continue duo nebs as needed, continue oxygen Appreciate recommendations from ID. Monitor off antibiotics. 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 h/o CHF Reports of volume overload during this hospitalization Continue home dose of Coreg Give Lasix as needed Acute on chronic renal failure No obstruction or hydronephrosis on renal ultrasound Creatinines are nearing normal Appreciate nephrology following Type 2 diabetes Sliding scale insulin coverage with Accu-Cheks Diabetic diet HYPERNATREMIA -Improving. Increase free water to 300 mL's every 4 hours. Monitor BMP in a.m. HYPOKALEMIA Replace and monitor. Problem Qualifiers (1) CHF (congestive heart failure): Mary Perez MD Dec 21, 2017 15:31
--- NOTE | 2017-12-21 17:02 | HHI.PR ---
Review/Management Diagnosis/Plan: (1) Seizure-like activity ICD Codes: R56.9 - Unspecified convulsions Status: Acute Plan: Possible seizure activity noted by caregiver. He is at increased risk with previous stroke and thus may have post stroke seizures worsened by underlying infection renal failure EEG-no seizure activity, right hemispheric slowing CT brain old right hemispheric stroke no new lesion Recommendations Neuro stable We will change Keppra to per G-tube Seizure fall precautions Glucose control Follow exam (2) Chronic ischemic right MCA stroke ICD Codes: I69.30 - Unspecified sequelae of cerebral infarction Status: Chronic (3) CKD (chronic kidney disease) stage 3, GFR 30-59 ml/min ICD Codes: N18.3 - Chronic kidney disease, stage 3 (moderate) Status: Chronic Plan: Per medical, renal (4) CHF (congestive heart failure) ICD Codes: I50.9 - Heart failure, unspecified Status: Chronic Plan: Per medical team Subjective Subjective Comments No acute events reported No headache No chest pain No dyspnea Active Medications Current Medications Medications (Trade) Dose Ordered Sig/Arthur Route Start Time Stop Time Status Last Admin (Brethine Inj) 1 mg UNSCH PRN SQ 11/28/17 05:30 (NS Flush) 2 ml UNSCH PRN IV FLUSH 11/28/17 05:45 12/05/17 08:07 (NS Flush) 2 ml BID IV FLUSH 11/28/17 09:00 12/21/17 08:49 (Tylenol) 650 mg Q6H PRN PO 11/28/17 05:45 12/12/17 12:55 (Tears Naturale Opth Soln) 1 drop TID EACH EYE 11/28/17 09:00 12/21/17 12:51 (Zofran Inj) 4 mg Q6H PRN IV PUSH 11/28/17 05:45 12/09/17 15:48 (Duoneb Neb) 1 ampule Q2HR NEB PRN INH 11/28/17 05:45 12/09/17 20:47 ([facility] [place] Nursing Information) 1 Q361D XX 11/28/17 05:45 (Chlorhexidine 2% Cloth) 3 pack Taper DAILY@04 TOP 11/29/17 04:00 11/25/18 03:59 12/12/17 03:44 (Chlorhexidine 2% Cloth) 3 pack UNSCH PRN TOP 11/28/17 05:45 (Jessie-Colace) 1 tab BID PO 11/28/17 09:00 12/19/17 09:21 (Milk Of Magnesia Liq) 30 ml Q12H PRN PO 11/28/17 05:45 (Senokot) 17.2 mg Q12H PRN PO 11/28/17 05:45 (Dulcolax Supp) 10 mg DAILY PRN RECTAL 11/28/17 05:45 (Lactulose Liq) 30 ml DAILY PRN PO 11/28/17 05:45 12/01/17 11:49 (D50w (Vial) Inj) 25 ml UNSCH PRN IV PUSH 11/28/17 06:15 (Protonix Inj) 40 mg Q12H IV PUSH 11/28/17 12:00 12/21/17 12:47 (Santyl Oint) 1 applic DAILY TOPICAL 12/01/17 09:00 12/21/17 08:42 (Aspirin Chew) 81 mg DAILY CHEW 12/04/17 09:00 12/21/17 08:43 (Trandate Inj) 10 mg Q4H PRN IV PUSH 12/04/17 16:30 12/09/17 04:42 (Apresoline Inj) 20 mg Q4H PRN IV PUSH 12/04/17 16:30 12/08/17 03:32 (NovoLOG SUPPLEMENTAL SCALE) 1 Q6H SQ 12/05/17 18:00 12/21/17 12:48 (Wadley 5-325 Mg) 1 tab Q6H PRN PEG 12/05/17 18:30 12/07/17 07:40 Dexmedetomidine HCl 1000 mcg/ Sodium Chloride 250 ml @ 4.22 mls/hr TITRATE PRN IV 12/05/17 18:30 12/08/17 08:57 (Apresoline) 100 mg Q8H PO 12/06/17 02:00 12/21/17 04:35 (Levemir Inj) 5 units Q12HR SQ 12/07/17 21:00 12/21/17 08:40 (Lasix Inj) 40 mg DAILY IV PUSH 12/10/17 09:00 12/21/17 08:43 (Lopressor Inj) 5 mg Q6H PRN IV PUSH 12/09/17 13:30 12/10/17 21:40 (Coreg) 25 mg BID PO 12/10/17 10:30 12/20/17 22:48 (Sodium Bicarbonate) 325 mg BIDPC PO 12/10/17 10:30 12/21/17 08:42 (Free Water) 300 ml Q4HR PEG 12/17/17 12:00 12/21/17 12:00 Levetriacetam 500 mg/Sodium Chloride 105 ml @ 420 mls/hr Q12H IV 12/20/17 06:00 12/21/17 04:36 Allergies Allergies Coded Allergies No Known Allergies (Verified Allergy, Severe, 11/03/06) Review of Systems All other ROS: ROS reviewed as documented in chart Exam I&O / VS 12/21/17 12/21/17 12/22/17 14:59 22:59 06:59 Intake Total 600 ml Balance 600 ml Other 600 ml Vital Signs Date Time Temp Pulse Resp B/P (MAP) Pulse Ox O2 Delivery O2 Flow Rate FiO2 12/21/17 16:00 97.4 87 17 116/75 (89) 99 12/21/17 12:00 98.0 88 17 116/63 (80) 97 12/21/17 08:00 98.2 87 17 108/60 (76) 97 12/21/17 04:00 97.9 88 18 123/66 (85) 97 12/21/17 00:00 97.6 92 20 127/69 (88) 98 12/20/17 20:00 87 12/20/17 20:00 97.9 91 20 123/67 (85) 97 Exam Comments awake follows, states 1-2 words, left lower facial weakness left spastic hemiparesis bilateral leg weakness left lower extremity and mild contracture no involuntary movements appreciated Objective Micro and Labs Date/Time Source Procedure Growth Status 12/09/17 12:26 Blood Peripheral Aerobic Blood Culture - Final NO GROWTH IN 5 DAYS Complete 12/09/17 12:26 Blood Peripheral Anaerobic Blood Culture - Final NO GROWTH IN 5 DAYS Complete 12/01/17 17:30 Stool Stool Stool Occult Blood (MADALYN) - Final HEMOCCULT NEGATIVE Complete 12/06/17 11:00 Sputum Endotracheal Gram Stain - Final Complete 12/06/17 11:00 Sputum Culture - Final Klebsiella Pneumoniae Esbl Pos Pseudomonas Aeruginosa Complete 12/09/17 16:00 Urine Catheterized Urine Urine Culture - Final NO GROWTH IN 48 HOURS. Complete Problem Qualifiers (1) CHF (congestive heart failure): Jacob Perry MD Dec 21, 2017 17:02
[2017-12-21] MEDS: levETIRAcetam 500 MG TAB PO SCH (18:09)
[2017-12-22] VITALS (7 sets, daily range): BP systolic 125–146; BP diastolic 66–82; PULSE 87–102; RESP 16–20; TEMP 97.8–98.4; O2SAT 96–100
[2017-12-22] MEDS: PANTOPRAZOLE SODIUM 40 MG VIAL IV PUSH SCH ×2 (00:26→13:04)
[2017-12-22] MEDS: hydrALAZINE HCL 100 MG TAB PO SCH ×3 (00:27→18:33)
[2017-12-22] MEDS: FREE WATER PEG SCH ×6 (04:00→20:18)
[2017-12-22] MEDS: CHLORHEXIDINE GLUCONATE 2 % 1 PACK (2 CLOTHS) TOP SCH (04:00)
[2017-12-22] MEDS: INSULIN ASPART SUPPLEMENTAL SCALE SQ SCH ×4 (06:00→17:48)
--- NOTE | 2017-12-22 09:17 | HHI.PR ---
Review/Management Diagnosis/Plan: (1) Seizure-like activity ICD Codes: R56.9 - Unspecified convulsions Status: Acute Plan: Possible seizure activity noted by caregiver. He is at increased risk with previous stroke and thus may have post stroke seizures worsened by underlying infection renal failure EEG-no seizure activity, right hemispheric slowing CT brain old right hemispheric stroke no new lesion Recommendations Neuro stable Keppra per G-tube Seizure fall precautions Glucose control Follow exam Discharge planning to snf (2) Chronic ischemic right MCA stroke ICD Codes: I69.30 - Unspecified sequelae of cerebral infarction Status: Chronic (3) CKD (chronic kidney disease) stage 3, GFR 30-59 ml/min ICD Codes: N18.3 - Chronic kidney disease, stage 3 (moderate) Status: Chronic Plan: Per medical, renal (4) CHF (congestive heart failure) ICD Codes: I50.9 - Heart failure, unspecified Status: Chronic Plan: Per medical team Subjective Subjective Comments No acute events reported No headache No chest pain No dyspnea Active Medications Current Medications Medications (Trade) Dose Ordered Sig/Arthur Route Start Time Stop Time Status Last Admin (Brethine Inj) 1 mg UNSCH PRN SQ 11/28/17 05:30 (NS Flush) 2 ml UNSCH PRN IV FLUSH 11/28/17 05:45 12/05/17 08:07 (NS Flush) 2 ml BID IV FLUSH 11/28/17 09:00 12/21/17 21:00 (Tylenol) 650 mg Q6H PRN PO 11/28/17 05:45 12/12/17 12:55 (Tears Naturale Opth Soln) 1 drop TID EACH EYE 11/28/17 09:00 12/21/17 12:51 (Zofran Inj) 4 mg Q6H PRN IV PUSH 11/28/17 05:45 12/09/17 15:48 (Duoneb Neb) 1 ampule Q2HR NEB PRN INH 11/28/17 05:45 12/09/17 20:47 ([facility] Nursing Information) 1 Q361D XX 11/28/17 05:45 (Chlorhexidine 2% Cloth) 3 pack Taper DAILY@04 TOP 11/29/17 04:00 11/25/18 03:59 12/12/17 03:44 (Chlorhexidine 2% Cloth) 3 pack UNSCH PRN TOP 11/28/17 05:45 (Jessie-Colace) 1 tab BID PO 11/28/17 09:00 12/19/17 09:21 (Milk Of Magnesia Liq) 30 ml Q12H PRN PO 11/28/17 05:45 (Senokot) 17.2 mg Q12H PRN PO 11/28/17 05:45 (Dulcolax Supp) 10 mg DAILY PRN RECTAL 11/28/17 05:45 (Lactulose Liq) 30 ml DAILY PRN PO 11/28/17 05:45 12/01/17 11:49 (D50w (Vial) Inj) 25 ml UNSCH PRN IV PUSH 11/28/17 06:15 (Protonix Inj) 40 mg Q12H IV PUSH 11/28/17 12:00 12/22/17 00:26 (Santyl Oint) 1 applic DAILY TOPICAL 12/01/17 09:00 12/21/17 08:42 (Aspirin Chew) 81 mg DAILY CHEW 12/04/17 09:00 12/21/17 08:43 (Trandate Inj) 10 mg Q4H PRN IV PUSH 12/04/17 16:30 12/09/17 04:42 (Apresoline Inj) 20 mg Q4H PRN IV PUSH 12/04/17 16:30 12/08/17 03:32 (NovoLOG SUPPLEMENTAL SCALE) 1 Q6H SQ 12/05/17 18:00 12/21/17 12:48 ([facility] 5-325 Mg) 1 tab Q6H PRN PEG 12/05/17 18:30 12/07/17 07:40 Dexmedetomidine HCl 1000 mcg/ Sodium Chloride 250 ml @ 4.22 mls/hr TITRATE PRN IV 12/05/17 18:30 12/08/17 08:57 (Apresoline) 100 mg Q8H PO 12/06/17 02:00 12/22/17 00:27 (Levemir Inj) 5 units Q12HR SQ 12/07/17 21:00 12/21/17 21:40 (Lasix Inj) 40 mg DAILY IV PUSH 12/10/17 09:00 12/21/17 08:43 (Lopressor Inj) 5 mg Q6H PRN IV PUSH 12/09/17 13:30 12/10/17 21:40 (Coreg) 25 mg BID PO 12/10/17 10:30 12/20/17 22:48 (Sodium Bicarbonate) 325 mg BIDPC PO 12/10/17 10:30 12/21/17 18:09 (Free Water) 300 ml Q4HR PEG 12/17/17 12:00 12/22/17 08:00 (Keppra) 500 mg TID PO 12/21/17 18:00 12/21/17 18:09 Allergies Allergies Coded Allergies No Known Allergies (Verified Allergy, Unknown, 12/21/17) Review of Systems All other ROS: ROS reviewed as documented in chart Exam I&O / VS 12/22/17 12/22/17 12/23/17 15:00 23:00 07:00 Intake Total 1400 ml Balance 1400 ml TPN/PPN 600 ml Other 800 ml Vital Signs Date Time Temp Pulse Resp B/P (MAP) Pulse Ox O2 Delivery O2 Flow Rate FiO2 12/22/17 08:00 98.4 94 16 126/77 (93) 100 12/22/17 04:00 95 12/22/17 04:00 97.8 95 17 128/73 (91) 96 12/22/17 00:00 98.2 98 17 125/71 (89) 96 12/22/17 00:00 98 12/21/17 20:00 97.7 95 17 121/68 (85) 95 12/21/17 20:00 95 12/21/17 17:49 99 21 12/21/17 16:00 97.4 87 17 116/75 (89) 99 12/21/17 12:00 98.0 88 17 116/63 (80) 97 Exam Comments Alert nonverbal for most of interview inconsistently follows no involuntary movements left lower facial weakness left spastic hemiparesis bilateral leg weakness left lower extremity and mild contracture no Objective Micro and Labs Date/Time Source Procedure Growth Status 12/09/17 12:26 Blood Peripheral Aerobic Blood Culture - Final NO GROWTH IN 5 DAYS Complete 12/09/17 12:26 Blood Peripheral Anaerobic Blood Culture - Final NO GROWTH IN 5 DAYS Complete 12/01/17 17:30 Stool Stool Stool Occult Blood (MADALYN) - Final HEMOCCULT NEGATIVE Complete 12/06/17 11:00 Sputum Endotracheal Gram Stain - Final Complete 12/06/17 11:00 Sputum Culture - Final Klebsiella Pneumoniae Esbl Pos Pseudomonas Aeruginosa Complete 12/09/17 16:00 Urine Catheterized Urine Urine Culture - Final NO GROWTH IN 48 HOURS. Complete Problem Qualifiers (1) CHF (congestive heart failure): Jacob Perry MD Dec 22, 2017 09:17
[2017-12-22] MEDS: SODIUM BICARBONATE 325 MG TAB PO SCH ×2 (09:48→18:33)
[2017-12-22] MEDS: levETIRAcetam 500 MG TAB PO SCH ×3 (09:48→18:32)
[2017-12-22] MEDS: FUROSEMIDE 40 MG/4 ML VIAL IV PUSH SCH (09:48)
[2017-12-22] MEDS: INSULIN DETEMIR 100 UNITS/ML VIAL SQ SCH ×2 (09:48→21:10)
[2017-12-22] MEDS: DOCUSATE SODIUM 50 MG/SENNA 8.6 MG TAB PO SCH ×2 (09:48→20:18)
[2017-12-22] MEDS: CARVEDILOL 12.5 MG TAB PO SCH ×2 (09:48→20:18)
[2017-12-22] MEDS: ASPIRIN 81 MG CHEW TAB CHEW SCH (09:49)
[2017-12-22] MEDS: SODIUM CHLORIDE 0.9% FLUSH 10 ML FLUSH IV FLUSH SCH ×2 (09:49→20:18)
[2017-12-22] MEDS: ARTIFICIAL TEARS OPTH SOLN 15 ML BTL EACH EYE SCH ×3 (09:49→18:00)
[2017-12-22] MEDS: COLLAGENASE OINT 30 GM TUBE TOPICAL SCH (09:52)
[2017-12-22] MEDS ORDERED: HYDR-3801 PO (11:47)
[2017-12-22] MEDS ORDERED: LEVEMIR SQ (11:47)
[2017-12-22] MEDS ORDERED: PANT40P IV PUSH (11:47)
[2017-12-22] MEDS ORDERED: LEVE500 PO (11:50)
[2017-12-22] MEDS ORDERED: ASPI81 CHEW (11:50)
[2017-12-22 13:35] LABS: BICARBONATE 27.6 MEQ/L (21.0-32.0); CALCIUM 8.8 MG/DL (8.5-10.1); CREATININE 1.28 MG/DL (0.60-1.30); MAGNESIUM 2.2 MG/DL (1.5-2.5); PHOSPHORUS 4.9 MG/DL (2.5-4.9)
--- NOTE | 2017-12-22 15:54 | HHI.PR ---
Subjective Remarks Patient refused lab work I talked to him and try to have the shingler to get the blood drawn Patient does not talk much, but he was able to talk while the blood drawn "you are hurting my arm " Objective Vitals Vital Signs Date Time Temp Pulse Resp B/P (MAP) Pulse Ox O2 Delivery O2 Flow Rate FiO2 12/22/17 15:04 96 21 12/22/17 12:00 98.2 91 18 137/66 (89) 97 12/22/17 12:00 90 12/22/17 08:00 87 12/22/17 08:00 98.4 94 16 126/77 (93) 100 12/22/17 04:00 95 12/22/17 04:00 97.8 95 17 128/73 (91) 96 12/22/17 00:00 98.2 98 17 125/71 (89) 96 12/22/17 00:00 98 12/21/17 20:00 97.7 95 17 121/68 (85) 95 12/21/17 20:00 95 12/21/17 17:49 99 21 12/21/17 16:00 97.4 87 17 116/75 (89) 99 I/O 12/21/17 12/21/17 12/21/17 12/22/17 12/22/17 12/22/17 07:00 15:00 23:00 07:00 15:00 23:00 Intake Total 105 ml 600 ml 958 ml 0 ml 1400 ml Balance 105 ml 600 ml 958 ml 0 ml 1400 ml Intake Oral 0 ml 0 ml 0 ml IV Total 105 ml Tube Feeding 638 ml TPN/PPN 600 ml Tube Irrigant 20 ml Other 600 ml 300 ml 800 ml # Voids 3 4 4 # Bowel Movements 1 2 1 Result Diagram: 12/18/17 0614 12/22/17 1258 Objective Remarks GENERAL: This is a well-nourished, well-developed patient, sleeping CARDIOVASCULAR: RRR, no gallops, or rubs. RESPIRATORY: Fair air entry bilaterally. No W, R, or R GASTROINTESTINAL: Abdomen soft, non-tender, nondistended. Positive bowel sounds MUSCULOSKELETAL: Extremities without clubbing, cyanosis, or edema. Pedal pulses appreciated NEUROLOGICAL: Sleeping but arousable. Procedures INTUBATION AND VENT MANAGEMENT AND EXTUBATION A/P Problem List: (1) Seizure-like activity ICD Code: R56.9 - Unspecified convulsions Status: Acute (2) Pneumonia ICD Code: J18.9 - Pneumonia, unspecified organism (3) CHF (congestive heart failure) ICD Code: I50.9 - Heart failure, unspecified Status: Chronic (4) CKD (chronic kidney disease) stage 3, GFR 30-59 ml/min ICD Code: N18.3 - Chronic kidney disease, stage 3 (moderate) Status: Chronic (5) Acute renal failure ICD Code: N17.9 - Acute kidney failure, unspecified (6) Diabetes ICD Code: E11.9 - Type 2 diabetes mellitus without complications Status: Chronic Assessment and Plan 47-year-old male with: 12/19: Stable no seizure activity reported, he refused IV access today so I will switch the Keppra to p.o. 12/20: Continue current care appreciate neurology recommendation, continue Keppra , high risk for seizure after stroke, no further seizure activity over last 2 days 12/21: Patient refused lab work today blood withdrawal, will order PT OT, neurology following appreciate their assistance, change Keppra to per GI tube 12/22: Eventually we are able to obtain blood work, patient has been on Lasix IV I will stop that, awaiting BMP, will switch to p.o. and monitor, will follow up with neurology regarding antiepileptic A/P: New onset seizure like activity and slurred speech: - Known history of CVA with residual left-sided hemiparesis. - brain CT to rule out CVA. EEG. neuro checks -Appreciate neurology consultation placed patient on antiepileptic since she is high risk post stroke Pneumonia, respiratory failure Intubated on 11/28/2017, extubated on 12/11/2017 Sputum culture had ESBL, blood cultures had gram-negative cocci Completed treatment with vancomycin and ertapenem Continue duo nebs as needed, continue oxygen Appreciate recommendations from ID. Monitor off antibiotics. 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 h/o CHF Reports of volume overload during this hospitalization Continue home dose of Coreg Give Lasix as needed Acute on chronic renal failure No obstruction or hydronephrosis on renal ultrasound Creatinines are nearing normal Appreciate nephrology following Type 2 diabetes Sliding scale insulin coverage with Accu-Cheks Diabetic diet HYPERNATREMIA -Improving. Increase free water to 300 mL's every 4 hours. Monitor BMP in a.m. HYPOKALEMIA Replace and monitor. Problem Qualifiers (1) CHF (congestive heart failure): Mary Perez MD Dec 22, 2017 15:54
[2017-12-23] VITALS: BP 111/68; PULSE 96; RESP 18; TEMP 98; O2SAT 97
[2017-12-23 00:04] VITALS: PULSE 96
[2017-12-23] MEDS: FREE WATER PEG SCH ×4 (00:33→11:22)
[2017-12-23] MEDS: INSULIN ASPART SUPPLEMENTAL SCALE SQ SCH ×3 (00:33→11:22)
[2017-12-23] MEDS: PANTOPRAZOLE SODIUM 40 MG VIAL IV PUSH SCH ×2 (00:33→11:18)
[2017-12-23] MEDS: hydrALAZINE HCL 100 MG TAB PO SCH ×2 (01:56→11:18)
[2017-12-23 04:00] VITALS: BP 125/82; PULSE 102; PULSE 95; RESP 18; TEMP 99.2; O2SAT 94
[2017-12-23] MEDS: CHLORHEXIDINE GLUCONATE 2 % 1 PACK (2 CLOTHS) TOP SCH (04:00)
[2017-12-23 08:00] VITALS: BP 119/61; PULSE 95; PULSE 98; RESP 18; TEMP 98.6; O2SAT 98
[2017-12-23] MEDS: CARVEDILOL 12.5 MG TAB PO SCH (08:21)
[2017-12-23] MEDS: levETIRAcetam 500 MG TAB PO SCH ×2 (08:21→13:43)
[2017-12-23] MEDS: ASPIRIN 81 MG CHEW TAB CHEW SCH (08:21)
[2017-12-23] MEDS: SODIUM BICARBONATE 325 MG TAB PO SCH (08:21)
[2017-12-23] MEDS: ARTIFICIAL TEARS OPTH SOLN 15 ML BTL EACH EYE SCH ×2 (08:22→13:43)
[2017-12-23] MEDS: SODIUM CHLORIDE 0.9% FLUSH 10 ML FLUSH IV FLUSH SCH (08:23)
[2017-12-23] MEDS: INSULIN DETEMIR 100 UNITS/ML VIAL SQ SCH (08:23)
[2017-12-23] MEDS: COLLAGENASE OINT 30 GM TUBE TOPICAL SCH (08:23)
[2017-12-23] MEDS: DOCUSATE SODIUM 50 MG/SENNA 8.6 MG TAB PO SCH (08:27)
--- NOTE | 2017-12-23 09:42 | HHI.PR ---
Review/Management Diagnosis/Plan: (1) Seizure-like activity ICD Codes: R56.9 - Unspecified convulsions Status: Acute Plan: Possible seizure activity noted by caregiver. He is at increased risk with previous stroke and thus may have post stroke seizures worsened by underlying infection renal failure EEG-no seizure activity, right hemispheric slowing CT brain old right hemispheric stroke no new lesion Recommendations Check Keppra level Neuro stable Follow exam Discharge planning to snf (2) Chronic ischemic right MCA stroke ICD Codes: I69.30 - Unspecified sequelae of cerebral infarction Status: Chronic (3) CKD (chronic kidney disease) stage 3, GFR 30-59 ml/min ICD Codes: N18.3 - Chronic kidney disease, stage 3 (moderate) Status: Chronic Plan: Per medical, renal (4) CHF (congestive heart failure) ICD Codes: I50.9 - Heart failure, unspecified Status: Chronic Plan: Per medical team Subjective Subjective Comments No acute events reported Active Medications Current Medications Medications (Trade) Dose Ordered Sig/Arthur Route Start Time Stop Time Status Last Admin (Brethine Inj) 1 mg UNSCH PRN SQ 11/28/17 05:30 (NS Flush) 2 ml UNSCH PRN IV FLUSH 11/28/17 05:45 12/05/17 08:07 (NS Flush) 2 ml BID IV FLUSH 11/28/17 09:00 12/23/17 08:23 (Tylenol) 650 mg Q6H PRN PO 11/28/17 05:45 12/12/17 12:55 (Tears Naturale Opth Soln) 1 drop TID EACH EYE 11/28/17 09:00 12/23/17 08:22 (Zofran Inj) 4 mg Q6H PRN IV PUSH 11/28/17 05:45 12/09/17 15:48 (Duoneb Neb) 1 ampule Q2HR NEB PRN INH 11/28/17 05:45 12/09/17 20:47 ([facility] Nursing Information) 1 Q361D XX 11/28/17 05:45 (Chlorhexidine 2% Cloth) Taper DAILY@04 TOP 11/29/17 04:00 11/25/18 03:59 12/12/17 03:44 (Chlorhexidine 2% Cloth) 3 pack UNSCH PRN TOP 11/28/17 05:45 (Jessie-Colace) 1 tab BID PO 11/28/17 09:00 12/22/17 09:48 (Milk Of Magnesia Liq) 30 ml Q12H PRN PO 11/28/17 05:45 (Senokot) 17.2 mg Q12H PRN PO 11/28/17 05:45 (Dulcolax Supp) 10 mg DAILY PRN RECTAL 11/28/17 05:45 (Lactulose Liq) 30 ml DAILY PRN PO 11/28/17 05:45 12/01/17 11:49 (D50w (Vial) Inj) 25 ml UNSCH PRN IV PUSH 11/28/17 06:15 (Protonix Inj) 40 mg Q12H IV PUSH 11/28/17 12:00 12/23/17 00:33 (Santyl Oint) 1 applic DAILY TOPICAL 12/01/17 09:00 12/23/17 08:23 (Aspirin Chew) 81 mg DAILY CHEW 12/04/17 09:00 12/23/17 08:21 (Trandate Inj) 10 mg Q4H PRN IV PUSH 12/04/17 16:30 12/09/17 04:42 (Apresoline Inj) 20 mg Q4H PRN IV PUSH 12/04/17 16:30 12/08/17 03:32 (NovoLOG SUPPLEMENTAL SCALE) 1 Q6H SQ 12/05/17 18:00 12/23/17 06:02 ([place] 5-325 Mg) 1 tab Q6H PRN PEG 12/05/17 18:30 12/07/17 07:40 Dexmedetomidine HCl 1000 mcg/ Sodium Chloride 250 ml @ 4.22 mls/hr TITRATE PRN IV 12/05/17 18:30 12/08/17 08:57 (Apresoline) 100 mg Q8H PO 12/06/17 02:00 12/23/17 01:56 (Levemir Inj) 5 units Q12HR SQ 12/07/17 21:00 12/23/17 08:23 (Lopressor Inj) 5 mg Q6H PRN IV PUSH 12/09/17 13:30 12/10/17 21:40 (Coreg) 25 mg BID PO 12/10/17 10:30 12/23/17 08:21 (Sodium Bicarbonate) 325 mg BIDPC PO 12/10/17 10:30 12/23/17 08:21 (Free Water) 300 ml Q4HR PEG 12/17/17 12:00 12/23/17 08:00 (Keppra) 500 mg TID PO 12/21/17 18:00 12/23/17 08:21 Allergies Allergies Coded Allergies No Known Allergies (Verified Allergy, Unknown, 12/21/17) Review of Systems All other ROS: ROS reviewed as documented in chart Exam I&O / VS Vital Signs Date Time Temp Pulse Resp B/P (MAP) Pulse Ox O2 Delivery O2 Flow Rate FiO2 12/23/17 08:00 98.6 98 18 119/61 (80) 98 12/23/17 04:00 99.2 102 18 125/82 (96) 94 12/23/17 04:00 95 12/23/17 00:04 96 12/23/17 00:00 98.0 96 18 111/68 (82) 97 12/22/17 21:40 21 12/22/17 20:00 98.0 102 18 139/70 (93) 97 12/22/17 16:00 98.4 98 20 146/82 (103) 98 12/22/17 15:04 96 21 12/22/17 12:00 98.2 91 18 137/66 (89) 97 12/22/17 12:00 90 Exam Comments Alert, positive blink to threat, nonverbal for most of interview inconsistently follows no involuntary movements left lower facial weakness left spastic hemiparesis bilateral leg weakness left lower extremity and mild contracture Objective Micro and Labs Laboratory Tests Test 12/22/17 12:58 Blood Urea Nitrogen 36 Creatinine 1.28 Random Glucose 148 Calcium Level 8.8 Phosphorus Level 4.9 Magnesium Level 2.2 Sodium Level 139 Potassium Level 4.7 Chloride Level 103 Carbon Dioxide Level 27.6 Anion Gap 8 Estimat Glomerular Filtration Rate 73 Date/Time Source Procedure Growth Status 12/09/17 12:26 Blood Peripheral Aerobic Blood Culture - Final NO GROWTH IN 5 DAYS Complete 12/09/17 12:26 Blood Peripheral Anaerobic Blood Culture - Final NO GROWTH IN 5 DAYS Complete 12/01/17 17:30 Stool Stool Stool Occult Blood (MADALYN) - Final HEMOCCULT NEGATIVE Complete 12/06/17 11:00 Sputum Endotracheal Gram Stain - Final Complete 12/06/17 11:00 Sputum Culture - Final Klebsiella Pneumoniae Esbl Pos Pseudomonas Aeruginosa Complete 12/09/17 16:00 Urine Catheterized Urine Urine Culture - Final NO GROWTH IN 48 HOURS. Complete Problem Qualifiers (1) CHF (congestive heart failure): Jacob Perry MD Dec 23, 2017 09:42
[2017-12-23 11:40] VITALS: O2SAT 97
[2017-12-23 12:00] VITALS: BP 123/55; PULSE 89; RESP 18; TEMP 97.5; O2SAT 98
--- NOTE | 2017-12-23 16:57 | HHI.DS ---
Discharge Summary Admission Date November 28, 2017 at 05:36 Discharge Date: Dec 23, 2017 Admitting Diagnosis Respiratory Failure, Anemia (1) Seizure-like activity ICD Code: R56.9 - Unspecified convulsions Status: Acute (2) Pneumonia ICD Code: J18.9 - Pneumonia, unspecified organism (3) CHF (congestive heart failure) ICD Code: I50.9 - Heart failure, unspecified Status: Chronic (4) CKD (chronic kidney disease) stage 3, GFR 30-59 ml/min ICD Code: N18.3 - Chronic kidney disease, stage 3 (moderate) Status: Chronic (5) Acute renal failure ICD Code: N17.9 - Acute kidney failure, unspecified (6) Diabetes ICD Code: E11.9 - Type 2 diabetes mellitus without complications Status: Chronic Procedures INTUBATION AND VENT MANAGEMENT AND EXTUBATION Brief History - From Admission This is a 47-year-old male with a history of prior stroke who presented from alf facility by EMS for acute altered mental status. Per EMS reports, he was in his normal state of health last night and then with his reevaluated by the nursing staff and was a GCS of 3 with room air sats of 79%. Of note by the ED physician, the patient had pink frothy sputum on admission to the ER. He was emergently intubated by the emergency department. He has a chest x-ray which demonstrates bilateral infiltrates consistent with pulmonary edema. He has a BNP which is severely elevated at 1300. He has a elevated creatinine suggestive of acute kidney injury with an unknown baseline. Per report he has been treated for an MRSA skin infection. He is afebrile with a normal white count. Critical care medicine is consulted to evaluate manage his acute encephalopathy, multiorgan dysfunction. No additional information is available from the patient due to his severe encephalopathy. CBC/BMP: 12/22/17 1258 Significant Findings Laboratory Tests Test 12/22/17 12:58 12/23/17 11:40 Blood Urea Nitrogen 36 MG/DL (7-18) Random Glucose 148 MG/DL (74-106) Estimat Glomerular Filtration Rate 73 ML/MIN (>89) PE at Discharge GENERAL: This is a well-nourished, well-developed patient, in no acute distress CARDIOVASCULAR: RRR, no gallops, or rubs. RESPIRATORY: Fair air entry bilaterally. No W, R, or R GASTROINTESTINAL: Abdomen soft, non-tender, nondistended. Positive bowel sounds MUSCULOSKELETAL: Extremities without clubbing, cyanosis, or edema. Pedal pulses appreciated NEUROLOGICAL: Open eyes, he does not look much but he occasionally speaks, Hospital Course 47 years old -[place] male admitted with new onset seizure mostly due to history of CVA, neurology consulted EEG obtained brain CT, patient placed on Keppra IV which was titrated and switched to p.o., patient also initially admitted with pneumonia and respiratory failure he was intubated 523 extubated , sputum culture showed ESBL blood culture gram-negative cocci patient finished treatment with vancomycin and ertapenem, ID was consulted as well, patient had a level of metabolic encephalopathy due to the CVA as well as CHF, was placed on Lasix IV switch to p.o., nightly chronic renal failure improved gradually, patient has been on antibiotic regimen, electrolyte has been managed and corrected. On day of discharge I discussed with neurology who agreed on clearing patient for discharge and obtaining a level of Keppra we will this will take up to 5 days since it is a sent out, will forward that to Dr. Martinez when it is available. [id number] encounter performed with the patient on discharge day, as well as physical exam, summary of hospitalization course and postdischarge plan has been D/W the patient. D/W nurse D/W case investigator. Discharge medications reviewed and printed and signed, post discharge follow up visit with PCP and other specialist as well as Brief hospital course and discharge summary has been placed. Pt Condition on Discharge: Fair Discharge Disposition: Discharge to SNF Discharge Time: > 30 minutes Discharge Instructions DIET: Follow Instructions for: Heart Healthy Diet, Diabetic Diet Activities you can perform: See Additionl Instruction Other Activity Instructions: per PT Follow up Referrals: Neurology - 1 Week with Jacob Perry MD New Medications: Aspirin (Tgt Aspirin) 81 Mg Chw 81 MG CHEW DAILY for proph, #30 EA Hydralazine (Hydralazine) 100 Mg Tab 100 MG PO Q8H for htn, #90 TAB Take with meals Insulin Detemir Inj (Levemir Inj) 1,000 unit/ 10 ML Vial 5 UNITS SQ Q12HR for dm for 30 Days, INJECTION Do not mix with any other Insulin. Levetiracetam (Keppra) 500 Mg Tab 500 MG PO TID for seizure, #90 TAB Pantoprazole Inj (Protonix Inj) 40 Mg Inj 40 MG IV PUSH Q12H for gi, #28 INJECTION Continued Medications: Acetaminophen (Tylenol) 325 Mg Tab 650 MG PO Q6H PRN for INCREASED TEMPERATURE, TAB 0 Refills Atorvastatin (Lipitor) 20 Mg Tab 20 MG PO HS for Cholesterol Management, #30 TAB 0 Refills B-Complex W/ C & Folic Acid (Nephro-Susy) 1 Tab 1 TAB PO DAILY for Nutritional Supplement, #30 TAB 0 Refills Carvedilol (Coreg) 25 Mg Tab 25 MG PO BID, #60 TAB 0 Refills Cholecalciferol (Vitamin D-1000) 1,000 Unit Tab 5000 UNITS G-TUBE DAILY for Nutritional Supplement, #1 BOTTLE 0 Refills Escitalopram (Escitalopram) 10 Mg Tab 15 MG PO DAILY, #30 TAB 0 Refills Insulin Human Regular Inj (Novolin R Inj) 1,000 Unit/10 Ml Vial 0 SQ DIRECTED for Blood Sugar Management, #10 ML 0 Refills Sliding Scale As Directed. Ipratropium-Albuterol Neb (Duoneb) 0.5-2.5 Mg/3 Ml Neb 1 NEBULE INH Q4HR NEB for SHORTNESS OF BREATH, #120 NEBULE 0 Refills Melatonin (Melatonin) 5 Mg Tab 3 MG PO HS for Provide Good Sleep, TAB 0 Refills Nitroglycerin SL (Nitrostat SL) 0.4 Mg Subl 0.4 MG SL DIRECTED PRN for CHEST PAIN, #100 TAB.SL 0 Refills 1 tablet under the tongue as needed for chest pain. Repeat every 5 minutes for a total of 3 DOSES or call 911 if NO relief. Ondansetron (Zofran) 4 Mg Tab 4 MG G-TUBE Q6HR PRN for NAUSEA OR VOMITING, TAB 0 Refills Promethazine Supp (Phenergan Supp) 25 Mg Supp 25 MG RECTAL Q4H PRN for NAUSEA OR VOMITING, SUPP 0 Refills Sodium Bicarbonate (Sodium Bicarbonate) 325 Mg Tab 325 MG PO BIDPC, #60 TAB 0 Refills Mary Perez MD Dec 23, 2017 16:57
[2017-12-24] MEDS ORDERED: FUROSEMIDE 40 MG TAB PO SCH (09:00)
[2017-12-24] MEDS ORDERED: IPRAAER INH (23:36)
[2017-12-24] MEDS ORDERED: LEVEMIR SQ (23:36)
[2017-12-24] MEDS ORDERED: SODI325T G-TUBE (23:36)
[2017-12-24] MEDS ORDERED: HUMALOG SQ (23:36)
[2017-12-24] MEDS ORDERED: CARV12.5 G-TUBE (23:36)
[2017-12-24] MEDS ORDERED: VITA1000 G-TUBE (23:36)
[2017-12-24] MEDS ORDERED: NITR0.4S SL (23:36)
[2017-12-24] MEDS ORDERED: ESCI10TA G-TUBE (23:36)
[2017-12-24] MEDS ORDERED: ZOFR4TAB G-TUBE (23:36)
[2017-12-24] MEDS ORDERED: TYLE325T G-TUBE (23:36)
[2017-12-24] MEDS ORDERED: LEVE500T8 PO (23:36)
[2017-12-24] MEDS ORDERED: MELA5 PO (23:36)
[2017-12-24] MEDS ORDERED: HYDR-3801 G-TUBE (23:36)
[2017-12-24] MEDS ORDERED: ASPI-516 G-TUBE (23:36)
[2017-12-24] MEDS ORDERED: ATOR10TA15 G-TUBE (23:36)
[2017-12-24] MEDS ORDERED: PROM1SUP7 RECTAL (23:36)
== END 2017-12-23 16:07 | DRG 166 ==
LOC: NEPE 04:56 → NEDA 05:36 → HIMW 06:55 → N07B 12-14 16:51
PROVIDERS: ADMIT Hospitalist; ATTEND Hospitalist
PROC: 5A1955Z Respiratory Ventilation, Greater than 96 Consecutive Hours (ICD-10-PCS; 2017-11-28)
PROC: 30233N1 Transfusion of Nonautologous Red Blood Cells into Peripheral Vein, Percutaneous Approach (ICD-10-PCS; 2017-11-28)
PROC: 0JBR0ZZ Excision of Left Foot Subcutaneous Tissue and Fascia, Open Approach (ICD-10-PCS; principal; 2017-12-02)
PROC: 0JBQ0ZZ Excision of Right Foot Subcutaneous Tissue and Fascia, Open Approach (ICD-10-PCS; 2017-12-02)
DX: J96.01 Acute respiratory failure with hypoxia (principal); I21.A1 Myocardial infarction type 2; J15.0 Pneumonia due to Klebsiella pneumoniae; G93.41 Metabolic encephalopathy; I13.0 Hypertensive heart and chronic kidney disease with heart failure and stage 1 through stage 4 chronic kidney disease, or unspecified chronic kidney disease; N17.9 Acute kidney failure, unspecified; I50.9 Heart failure, unspecified; E11.22 Type 2 diabetes mellitus with diabetic chronic kidney disease; N18.3 Chronic kidney disease, stage 3 (moderate); E87.0 Hyperosmolality and hypernatremia; R16.2 Hepatomegaly with splenomegaly, not elsewhere classified; I69.354 Hemiplegia and hemiparesis following cerebral infarction affecting left non-dominant side; M86.9 Osteomyelitis, unspecified; J98.11 Atelectasis; L97.429 Non-pressure chronic ulcer of left heel and midfoot with unspecified severity; E11.621 Type 2 diabetes mellitus with foot ulcer; E11.618 Type 2 diabetes mellitus with other diabetic arthropathy; E11.69 Type 2 diabetes mellitus with other specified complication; R56.9 Unspecified convulsions; Z93.1 Gastrostomy status; E11.65 Type 2 diabetes mellitus with hyperglycemia; L97.519 Non-pressure chronic ulcer of other part of right foot with unspecified severity; G89.29 Other chronic pain; F32.9 Major depressive disorder, single episode, unspecified; E78.00 Pure hypercholesterolemia, unspecified; K44.9 Diaphragmatic hernia without obstruction or gangrene; J96.02 Acute respiratory failure with hypercapnia; D63.8 Anemia in other chronic diseases classified elsewhere; I25.10 Atherosclerotic heart disease of native coronary artery without angina pectoris; Z16.12 Extended spectrum beta lactamase (ESBL) resistance; E87.6 Hypokalemia; Y95 Nosocomial condition; R00.0 Tachycardia, unspecified; R47.81 Slurred speech; R59.0 Localized enlarged lymph nodes; Z86.14 Personal history of Methicillin resistant Staphylococcus aureus infection; I69.391 Dysphagia following cerebral infarction; Z95.1 Presence of aortocoronary bypass graft; Z79.4 Long term (current) use of insulin
CPT/HCPCS: 36430; 36600; 51702; 70450; 70551; 71045; 73620; 73720; 74176; 76775; 76937; 80048; 80053; 80177; 80202; 80307; 81001; 82140; 82272; 82550; 82552; 82570; 82607; 82728; 82746; 82805; 82948; 83036; 83540; 83550; 83605; 83735; 83880; 84100; 84145; 84155; 84165; 84295; 84300; 84439; 84443; 84484; 84540; 85007; 85014; 85018; 85025; 85027; 85610; 85730; 86038; 86160; 86403; 86850; 86900; 86901; 86920; 87040; 87070; 87077; 87086; 87186; 87205; 87641; 93005; 93306; 94002; 94003; 94150; 94640; 94664; 95819; A9579; C9113; J0360; J0456; J0692; J1205; J1335; J1450; J1815; J1940; J1953; J2020; J2185; J2405; J2543; J2930; J3260; J3370; J3480; J7040; J7050; J7070; P9016; P9047; Q9963

== ENCOUNTER 2017-12-24 20:55 | Inpatient (IN) | payer MEDICARE, OTHER ==
[~2017-12-24] VITALS: Ht 182.9 cm; Wt 81.1 kg
[~2017-12-24 20:55] MED LIST changes: +ASPI81 CHEW; +AUGM875T3 PO; +BACL10TA PO; +CIPR250T52 PO; +CORE25TA PO; +DIFFCHW G-TUBE; +ESCI10TA PO; +GENT0.1C TOPICAL; +HYDR-3801 PO; +IPRASOL INH; +LANTUS2P SQ; +LEVE500 PO; +LEVEMIR SQ; +LIPI20TA PO; +MELA5 PO; +NEPHTAB3 PO; +NITR0.4S SL; +NOVORP2 SQ; +PANT40P IV PUSH; +PROM1SUP7 RECTAL; +SODI325T PO; +TRAM50TA G-TUBE; +TYLE325T PO; +VANC1000P IV; +VITA1000 G-TUBE; -Z.0.NO CURRENT MEDS; +ZANT150T2 G-TUBE; +ZOFR4TAB G-TUBE
[2017-12-24 21:11] VITALS: BP 119/60; PULSE 88; RESP 18; TEMP 98.4; O2SAT 97
--- NOTE | 2017-12-24 21:56 | PD ---
HPI Chief Complaint: Abnormal Results Time Seen by Provider: 21:04 Travel History International Travel<30 days: No Contact w/Intl Traveler<30days: No Traveled to known affect area: No History of Present Illness HPI 47-year-old male that presents to the ED for evaluation of abnormal results. Patient has significant history of CVA, CKD and hemiplegia. Patient was apparently just released from the hospital today per report and apparently had blood work done today that show abnormal hemoglobin. Patient himself does not complain of anything. Per ambulance report he is somewhat of a poor historian but he is able to answer some questions when he wants to. Patient apparently was admitted to the hospital secondary to altered mental status and respiratory failure. He was found to have CHF as well as anemia what appears to be possible pneumonia. Patient was admitted to the hospital for a couple of weeks and was in intensive care unit with intubation. Patient cannot really give me most of this information and I obtain this information from the medical records. Patient apparently was admitted on the different V number and the V number he was admitted to was beat [id number]. Patient again complains of nothing. PFSH Social History Alcohol Use: No Tobacco Use: No Substance Use: No Allergies-Medications (Allergen,Severity, Reaction): Coded Allergies: No Known Allergies (Unverified , 12/24/17) Review of Systems Except as stated in HPI: all other systems reviewed are Neg Physical Exam Narrative GENERAL: SKIN: Warm and dry. HEAD: Atraumatic. Normocephalic. EYES: Pupils equal and round. No scleral icterus. No injection or drainage. ENT: No nasal bleeding or discharge. Mucous membranes pink and moist. Tongue is midline. No uvula deviation. NECK: Trachea midline. No JVD. CARDIOVASCULAR: Regular rate and rhythm. RESPIRATORY: No accessory muscle use. Clear to auscultation. Breath sounds equal bilaterally. GASTROINTESTINAL: Abdomen soft, non-tender, nondistended. Hepatic and splenic margins not palpable. Patient has a feeding tube noted. MUSCULOSKELETAL: Extremities without clubbing, cyanosis, or edema. No obvious deformities. Patient can move his right arm. Patient has weakness and inability to move the lower extremities. 2+ pulses bilaterally. NEUROLOGICAL: Awake and alert. No obvious cranial nerve deficits. Motor grossly within normal limits. Five out of 5 muscle strength in the arms and legs. Normal speech. PSYCHIATRIC: Appropriate mood and affect; insight and judgment normal. Data Data Last Documented VS Vital Signs Date Time Temp Pulse Resp B/P (MAP) Pulse Ox O2 Delivery O2 Flow Rate FiO2 12/24/17 21:11 98.4 88 18 119/60 (79) 97 Orders Orders Complete Blood Count With Diff (12/24/17 21:04) Comprehensive Metabolic Panel (12/24/17 21:04) Magnesium (Mg) (12/24/17 21:04) Type And Screen (12/24/17 21:04) Red Blood Cells (Rbc) (12/24/17 22:14) Blood Product Administration (12/24/17 22:14) Sodium Chlor 0.9% 250 Ml Inj (Ns 250 Ml (12/24/17 22:15) Admit Order (Ed Use Only) (12/24/17 22:48) Labs Laboratory Tests Test 12/24/17 21:50 White Blood Count 7.2 TH/MM3 Red Blood Count 2.33 MIL/MM3 Hemoglobin 6.9 GM/DL Hematocrit 20.5 % Mean Corpuscular Volume 88.0 FL Mean Corpuscular Hemoglobin 29.8 PG Mean Corpuscular Hemoglobin Concent 33.8 % Red Cell Distribution Width 13.7 % Platelet Count 289 TH/MM3 Mean Platelet Volume 10.3 FL Neutrophils (%) (Auto) 64.4 % Lymphocytes (%) (Auto) 20.9 % Monocytes (%) (Auto) 10.9 % Eosinophils (%) (Auto) 3.3 % Basophils (%) (Auto) 0.5 % Neutrophils # (Auto) 4.6 TH/MM3 Lymphocytes # (Auto) 1.5 TH/MM3 Monocytes # (Auto) 0.8 TH/MM3 Eosinophils # (Auto) 0.2 TH/MM3 Basophils # (Auto) 0.0 TH/MM3 CBC Comment DIFF FINAL Differential Comment Blood Urea Nitrogen 36 MG/DL Creatinine 1.28 MG/DL Random Glucose 95 MG/DL Total Protein 7.8 GM/DL Albumin 2.5 GM/DL Calcium Level 8.4 MG/DL Magnesium Level 2.1 MG/DL Alkaline Phosphatase 124 U/L Aspartate Amino Transf (AST/SGOT) 26 U/L Alanine Aminotransferase (ALT/SGPT) 19 U/L Total Bilirubin 0.4 MG/DL Sodium Level 139 MEQ/L Potassium Level 3.8 MEQ/L Chloride Level 100 MEQ/L Carbon Dioxide Level 29.6 MEQ/L Anion Gap 9 MEQ/L Estimat Glomerular Filtration Rate 73 ML/MIN MDM Medical Decision Making Medical Screen Exam Complete: Yes Emergency Medical Condition: Yes Medical Record Reviewed: Yes Interpretation(s) CBC & BMP Diagram 12/24/17 21:50 Total Protein 7.8, Albumin 2.5 L, Calcium Level 8.4 L, Magnesium Level 2.1, Alkaline Phosphatase 124 H, Aspartate Amino Transf (AST/SGOT) 26, Alanine Aminotransferase (ALT/SGPT) 19, Total Bilirubin 0.4 Differential Diagnosis Anemia versus symptomatic anemia versus abnormal labs versus bleeding Narrative Course 47-year-old male who presents to the ED for evaluation of abnormal labs. Patient was properly examined and was found to have signs and symptoms consistent appears to be low hemoglobin. Patient had blood work done at this facility and did show a hemoglobin of 7. Patient does appear to have chronic anemia when he was admitted he was found to have hemoglobin of 5. He does have a history of CVA has history of CABG as well. At this time we will recheck the blood work. Patient will likely need transfusion if it is indeed 7 as he has come down from discharge from 8-7 in less than a day. Hemoccult was done and showed negative. Unclear etiology of the anemia. I did review his medical records from the V number he has always been in the eights or sevens. He apparently does have some history of CK. Unclear etiology at this time of the bleeding or anemia the patient does appear to have worsened on his hemoglobin goes from today and yesterday. Recommendations for admission for blood transfusion. My attending agrees with admission. Patient was admitted to Dr. Hudson who agrees to admission. HemaPrompt Point of Care Internal Pos. & Neg. Controls: Passed Fecal Specimen Occult Blood: Negative Diagnosis Primary Impression: Anemia Qualified Codes: D64.9 - Anemia, unspecified Admitting Information Admitting Physician Requests: Admit Orestes Huston Dec 24, 2017 21:56
[2017-12-24 22:05] LABS: AUTOMATED NEUTROPHIL # 4.6 TH/MM3 (1.8-7.7); BASOPHIL % 0.5 % (0.0-2.0); EOSINOPHIL # 0.2 TH/MM3 (0-0.4); EOSINOPHIL % 3.3 % (0.0-4.0); HEMOGLOBIN 6.9 GM/DL (13.0-17.0); LYMPH % 20.9 % (9.0-44.0); LYMPHOCYTE # 1.5 TH/MM3 (1.0-4.8); MEAN CORPUSCULAR HEMOGLOBIN 29.8 PG (27.0-34.0); MEAN CORPUSCULAR HGB CONC 33.8 % (32.0-36.0); MEAN PLATELET VOLUME 10.3 FL (7.0-11.0); MONO % 10.9 % (0.0-8.0); MONOCYTE # 0.8 TH/MM3 (0-0.9); NEUT % 64.4 % (16.0-70.0); PLATELET COUNT 289 TH/MM3 (150-450); RED BLOOD COUNT 2.33 MIL/MM3 (4.50-5.90); RED CELL DISTRIBUTION WIDTH 13.7 % (11.6-17.2)
[2017-12-24 22:11] LABS: HEMATOCRIT 20.5 % (39.0-51.0); WHITE BLOOD COUNT 7.2 TH/MM3 (4.0-11.0)
[2017-12-24] MEDS ORDERED: SODIUM CHLOR 0.9% 250 ML INJ 250 ML IV ONE (22:15)
[2017-12-24 22:22] LABS: ALBUMIN 2.5 GM/DL (3.4-5.0); ALT (GPT) 19 U/L (12-78); AST (GOT) 26 U/L (15-37); BICARBONATE 29.6 MEQ/L (21.0-32.0); BLOOD UREA NITROGEN 36 MG/DL (7-18); CALCIUM 8.4 MG/DL (8.5-10.1); CHLORIDE 100 MEQ/L (98-107); CREATININE 1.28 MG/DL (0.60-1.30); GLOMERULAR FILTRATION RATE 73 ML/MIN (>89); GLUCOSE,RANDOM 95 MG/DL (74-106); MAGNESIUM 2.1 MG/DL (1.5-2.5); SODIUM (NA) 139 MEQ/L (136-145)
[2017-12-24 22:25] LABS: ALKALINE PHOSPHATASE 124 U/L (45-117); TOTAL BILIRUBIN ADULT 0.4 MG/DL (0.2-1.0); TOTAL PROTEIN 7.8 GM/DL (6.4-8.2)
--- NOTE | 2017-12-24 22:55 | HHI.HP ---
[facility] Admission Diagnosis acute worsening anemia Diagnoses: Travel History International Travel<30 Days: No Contact w/Intl Traveler <30 Da: No Traveled to Known Affected Are: No History of Present Illness 47-year-old male with a past medical history significant for diabetes mellitus, hypertension, chronic anemia, chronic pain, hemiparesis secondary to right- sided CVA, CHF, dysphagia with feeding tube placement, psychiatric disorder, depression and hyperlipidemia presents to the emergency department for the evaluation abnormal lab results. The patient had a CBC done as an outpatient earlier today and it showed a hemoglobin of 7.0. He was recently discharged from the hospital on 12/23/17 where he was treated for respiratory failure requiring intubation, pneumonia with ESBL blood culture positive gram-negative cocci treated with vancomycin and ertapenem and new onset seizures. The patient does not participate in the exam and will not answer questions. He will open his eyes when asked to and shakes his head yes or no but remains nonverbal. According to previous neurology notes from the patient's prior hospital stay this is baseline for the patient. Past Family Social History Past Medical History (Obtained from medical records) Diabetes Hypertension MRSA skin infection of the foot Anemia Chronic pain Hemiparesis secondary to right-sided CVA Dysphagia with feeding tube placement History of psychiatric disorder Depression High cholesterol Hiatal hernia Past Surgical History Unknown unobtainable secondary to clinical condition the patient. Patient does have evidence of a prior sternotomy with a healed midline chest scar and a feeding tube placement. Allergies: Coded Allergies: No Known Allergies (Unverified , 12/24/17) Family History Unable to obtain Social History No EtOH, tobacco, or other drugs her prior medical records. Physical Exam Vital Signs Vital Signs Date Time Temp Pulse Resp B/P (MAP) Pulse Ox O2 Delivery O2 Flow Rate FiO2 12/24/17 21:11 98.4 88 18 119/60 (79) 97 Physical Exam GENERAL: -[place] male lying in bed SKIN: No rashes, ecchymoses or lesions. Cool and dry. HEAD: Atraumatic. Normocephalic. No temporal or scalp tenderness. EYES: Pupils equal round and reactive. Extraocular motions intact. No scleral icterus. No injection or drainage. ENT: Nose without bleeding, purulent drainage or septal hematoma. Airway patent. NECK: Trachea midline. No JVD or lymphadenopathy. CARDIOVASCULAR: Regular rate and rhythm without murmurs, gallops, or rubs. RESPIRATORY: Rales throughout. GASTROINTESTINAL: Abdomen soft, non-tender, nondistended. No hepato-splenomegaly , or palpable masses. No guarding. MUSCULOSKELETAL: Extremities without clubbing, cyanosis, or edema. No joint tenderness, effusion, or edema noted. NEUROLOGICAL: Very difficult to assess neurologic status as patient's participation in the exam is minimal. He will open his eyes when commended to and shakes his head yes or no to answer questions but refuses to speak. Left sided hemiparesis with contracture. Laboratory Laboratory Tests Test 12/24/17 21:50 White Blood Count 7.2 Red Blood Count 2.33 Hemoglobin 6.9 Hematocrit 20.5 Mean Corpuscular Volume 88.0 Mean Corpuscular Hemoglobin 29.8 Mean Corpuscular Hemoglobin Concent 33.8 Red Cell Distribution Width 13.7 Platelet Count 289 Mean Platelet Volume 10.3 Neutrophils (%) (Auto) 64.4 Lymphocytes (%) (Auto) 20.9 Monocytes (%) (Auto) 10.9 Eosinophils (%) (Auto) 3.3 Basophils (%) (Auto) 0.5 Neutrophils # (Auto) 4.6 Lymphocytes # (Auto) 1.5 Monocytes # (Auto) 0.8 Eosinophils # (Auto) 0.2 Basophils # (Auto) 0.0 CBC Comment DIFF FINAL Differential Comment Blood Urea Nitrogen 36 Creatinine 1.28 Random Glucose 95 Total Protein 7.8 Albumin 2.5 Calcium Level 8.4 Magnesium Level 2.1 Alkaline Phosphatase 124 Aspartate Amino Transf (AST/SGOT) 26 Alanine Aminotransferase (ALT/SGPT) 19 Total Bilirubin 0.4 Sodium Level 139 Potassium Level 3.8 Chloride Level 100 Carbon Dioxide Level 29.6 Anion Gap 9 Estimat Glomerular Filtration Rate 73 Result Diagram: 12/24/17214912/24/172149 Caprini VTE Risk Assessment Caprini VTE Risk Assessment: Mod/High Risk (score >= 2) Caprini Risk Assessment Model Point Value = 1 Point Value = 2 Point Value = 3 Point Value = 5 Age 41-60 Minor surgery BMI > 25 kg/m2 Swollen legs Varicose veins or History of unexplained or recurrent spontaneous Oral contraceptives or hormone replacement Sepsis (< 1 month) Serious lung disease, including pneumonia (< 1 month) Abnormal pulmonary function Acute myocardial infarction Congestive heart failure (< 1 month) History of inflammatory bowel disease Medical patient at bed rest Age 61-74 Arthroscopic surgery Major open surgery (> 45 min) Laparoscopic surgery (> 45 min) Malignancy Confined to bed (> 72 hours) Immobilizing plaster cast Central venous access Age >= 75 History of VTE Family history of VTE Factor V Leiden Prothrombin [id number] Lupus anticoagulant Anticardiolipin antibodies Elevated serum homocysteine Heparin-induced thrombocytopenia Other congenital or acquired thrombophilia Stroke (< 1 month) Elective arthroplasty Hip, pelvis, or leg fracture Acute spinal cord injury (< 1 month) Prophylaxis Regimen Total Risk Factor Score Risk Level Prophylaxis Regimen 0-1 Low Early ambulation 2 Moderate Order ONE of the following: *Sequential Compression Device (SCD) *Heparin 5000 units SQ BID 3-4 Higher Order ONE of the following medications: *Heparin 5000 units SQ TID *Enoxaparin/Lovenox 40 mg SQ daily (WT < 150 kg, CrCl > 30 mL/min) *Enoxaparin/Lovenox 30 mg SQ daily (WT < 150 kg, CrCl > 10-29 mL/min) *Enoxaparin/Lovenox 30 mg SQ BID (WT < 150 kg, CrCl > 30 mL/min) AND/OR *Sequential Compression Device (SCD) 5 or more Highest Order ONE of the following medications: *Heparin 5000 units SQ TID (Preferred with Epidurals) *Enoxaparin/Lovenox 40 mg SQ daily (WT < 150 kg, CrCl > 30 mL/min) *Enoxaparin/Lovenox 30 mg SQ daily (WT < 150 kg, CrCl > 10-29 mL/min) *Enoxaparin/Lovenox 30 mg SQ BID (WT < 150 kg, CrCl > 30 mL/min) AND *Sequential Compression Device (SCD) Assessment and Plan Assessment and Plan Assessment/plan: 1. Anemia Patient with acute on chronic anemia Hematology consulted, appreciate recommendations Suspect anemia of chronic disease Iron studies pending Hemoccult negative 2. History of CVA with left-sided hemiparesis Physical therapy consulted 3. Diabetes mellitus Continue home Levemir SSI Monitor BG 4. Hypertension/hyperlipidemia Continue home medications 5. Seizure d/o Continue Keppra 6. Psychiatric disorder/depression Continue home medications FEN Tube feeds: Nepro at 62 cc/hour for 20 hours Electrolytes: Monitor and replete as needed Heparin Physician Certification 2 Midnight Certification Type: Admission for Inpatient Services Order for Inpatient Services The services are ordered in accordance with Medicare regulations or non- Medicare payer requirements, as applicable. In the case of services not specified as inpatient-only, they are appropriately provided as inpatient services in accordance with the 2-midnight benchmark. Estimated LOS (days): 2 2 days is the estimated time the patient will need to remain in the hospital, assuming treatment plan goals are met and no additional complications. Post-Hospital Plan: Not yet determined Megha Hudson MD Dec 24, 2017 22:54
[2017-12-24] MEDS ORDERED: ACETAMINOPHEN 325 MG TAB PO PRN (23:30)
[2017-12-24] MEDS ORDERED: NALOXONE HCL 0.4 MG/ML AMP IV PUSH PRN (23:30)
[2017-12-24] MEDS ORDERED: SODIUM CHLORIDE 0.9% FLUSH 10 ML FLUSH IV FLUSH PRN (23:30)
[2017-12-24] MEDS ORDERED: MELA5 PO (23:36)
[2017-12-24] MEDS ORDERED: LEVE500T8 PO (23:36)
[2017-12-24] MEDS ORDERED: ZOFR4TAB G-TUBE (23:36)
[2017-12-24] MEDS ORDERED: TYLE325T G-TUBE (23:36)
[2017-12-24] MEDS ORDERED: NITR0.4S SL (23:36)
[2017-12-24] MEDS ORDERED: HUMALOG SQ (23:36)
[2017-12-24] MEDS ORDERED: SODI325T G-TUBE (23:36)
[2017-12-24] MEDS ORDERED: CARV12.5 G-TUBE (23:36)
[2017-12-24] MEDS ORDERED: PROM1SUP7 RECTAL (23:36)
[2017-12-24] MEDS ORDERED: ATOR10TA15 G-TUBE (23:36)
[2017-12-24] MEDS ORDERED: VITA1000 G-TUBE (23:36)
[2017-12-24] MEDS ORDERED: ASPI-516 G-TUBE (23:36)
[2017-12-24] MEDS ORDERED: LEVEMIR SQ (23:36)
[2017-12-24] MEDS ORDERED: HYDR-3801 G-TUBE (23:36)
[2017-12-24] MEDS ORDERED: ESCI10TA G-TUBE (23:36)
[2017-12-24] MEDS ORDERED: IPRAAER INH (23:36)
[2017-12-25] VITALS (30 sets, daily range): BP systolic 113–138; BP diastolic 65–82; PULSE 80–102; RESP 16–21; TEMP 98–99.5; O2SAT 94–100
[2017-12-25 00:11] LABS: % SATURATION IRON PROFILE 14.4 % (20-50); IRON (FE) 30 MCG/DL (65-175); TOTAL IRON BINDING CAPACITY 209 MCG/DL (250-450)
[2017-12-25] MEDS: HEPARIN SODIUM - SQ 10,000 UNITS/ML VIAL SQ SCH ×3 (06:23→21:17)
[2017-12-25] MEDS: SODIUM CHLORIDE 0.9% FLUSH 10 ML FLUSH IV FLUSH SCH ×2 (09:00→21:18)
[2017-12-25] MEDS: TIOTROPIUM BROMIDE 18 MCG INH INH SCH (09:00)
[2017-12-25] MEDS: ALBUTEROL SULFATE 90 MCG/ACT HFA 8 GM INHALER INH SCH ×5 (09:00→21:19)
[2017-12-25] MEDS: INSULIN DETEMIR 100 UNITS/ML VIAL SQ SCH ×2 (09:00→22:13)
[2017-12-25 09:20] LABS: AUTOMATED NEUTROPHIL # 4.1 TH/MM3 (1.8-7.7); BASOPHIL % 0.5 % (0.0-2.0); EOSINOPHIL # 0.2 TH/MM3 (0-0.4); EOSINOPHIL % 3.5 % (0.0-4.0); HEMATOCRIT 25.9 % (39.0-51.0); HEMOGLOBIN 8.7 GM/DL (13.0-17.0); LYMPH % 23.5 % (9.0-44.0); LYMPHOCYTE # 1.5 TH/MM3 (1.0-4.8); MEAN CELL VOLUME 88.7 FL (80.0-100.0); MEAN CORPUSCULAR HEMOGLOBIN 29.9 PG (27.0-34.0); MEAN CORPUSCULAR HGB CONC 33.7 % (32.0-36.0); MEAN PLATELET VOLUME 10.3 FL (7.0-11.0); MONO % 10.2 % (0.0-8.0); MONOCYTE # 0.7 TH/MM3 (0-0.9); NEUT % 62.3 % (16.0-70.0); PLATELET COUNT 270 TH/MM3 (150-450); RED BLOOD COUNT 2.92 MIL/MM3 (4.50-5.90); RED CELL DISTRIBUTION WIDTH 14.1 % (11.6-17.2); WHITE BLOOD COUNT 6.5 TH/MM3 (4.0-11.0)
[2017-12-25 09:42] LABS: BICARBONATE 26.3 MEQ/L (21.0-32.0); CALCIUM 8.7 MG/DL (8.5-10.1); CREATININE 1.23 MG/DL (0.60-1.30)
--- NOTE | 2017-12-25 10:20 | HHI.PR ---
Subjective Remarks Patient has no complaints. He does not interact well. He will shake his head yes or no to some questions. Objective Vitals Vital Signs Date Time Temp Pulse Resp B/P (MAP) Pulse Ox O2 Delivery O2 Flow Rate FiO2 12/25/17 07:30 98.9 94 21 135/79 94 12/25/17 06:00 87 12/25/17 05:01 99.5 88 16 131/72 100 12/25/17 05:00 87 12/25/17 04:41 99.3 89 16 127/72 100 12/25/17 04:27 99.3 89 16 113/70 100 12/25/17 04:00 86 12/25/17 03:00 98.8 89 16 130/76 (94) 100 12/25/17 03:00 87 12/25/17 02:01 98.7 92 16 138/75 97 12/25/17 02:00 90 12/25/17 01:39 99.0 92 16 137/78 100 12/25/17 01:00 90 12/25/17 00:30 95 12/25/17 00:30 99.2 95 16 135/82 (99) 95 12/24/17 21:11 98.4 88 18 119/60 (79) 97 I/O 12/24/17 12/24/17 12/24/17 12/25/17 12/25/17 12/25/17 07:00 15:00 23:00 07:00 15:00 23:00 Intake Total 871 ml 350 ml Balance 871 ml 350 ml Intake Tube Feeding 221 ml Packed Cells 400 ml 350 ml Blood Product IV Normal Saline Flush 50 ml Other 200 ml # Voids 2 # Bowel Movements 2 Result Diagram: 12/25/1790312/25/17903 Objective Remarks GENERAL: Chronically ill-appearing male laying in bed. CARDIOVASCULAR: Normal rate and regular rhythm without murmurs, gallops, or rubs. RESPIRATORY: Breath sounds equal and clear to auscultation bilaterally. GASTROINTESTINAL: Abdomen soft, non-tender, non-distended. Normal active bowel sounds MUSCULOSKELETAL: Extremities without cyanosis, or edema. NEURO: Can only nod yes or no to some questions. follow some commands. PSYCH: Appropriate mood and affect. A/P Assessment and Plan 47 Y/O male with: 1. Anemia Patient with acute on chronic anemia Hematology consulted, appreciate recommendations Suspect anemia of chronic disease Iron studies pending. Check ferritin Hemoccult negative H&H stable this morning. Continue to monitor 2. History of CVA with left-sided hemiparesis Physical therapy consulted 3. Diabetes mellitus Continue home Levemir SSI Monitor BG 4. Hypertension/hyperlipidemia Continue home medications 5. Seizure d/o Continue Keppra 6. Psychiatric disorder/depression Continue home medications Blaire Estrada MD Dec 25, 2017 10:20
[2017-12-25] MEDS: ESCITALOPRAM OXALATE 10 MG TAB G-TUBE SCH (10:27)
[2017-12-25] MEDS: SODIUM BICARBONATE 325 MG TAB G-TUBE SCH ×2 (10:27→17:51)
[2017-12-25] MEDS: CARVEDILOL 12.5 MG TAB G-TUBE SCH ×2 (10:28→21:17)
[2017-12-25] MEDS: ASPIRIN 81 MG CHEW TAB G-TUBE SCH (10:28)
[2017-12-25] MEDS: levETIRAcetam 500 MG TAB PO SCH ×3 (10:28→17:51)
[2017-12-25] MEDS: hydrALAZINE HCL 100 MG TAB G-TUBE SCH ×3 (11:02→17:50)
[2017-12-25] MEDS ORDERED: RESP: ALBUTEROL 2.5 MG/IPRATROPIUM 0.5 MG NEB (PRN) NEB (16:00)
[2017-12-25] MEDS ORDERED: ATORVASTATIN 10 MG TAB G-TUBE SCH (21:00)
[2017-12-25] MEDS ORDERED: MELATONIN 5 MG TAB PO SCH (21:00)
[2017-12-26] VITALS (19 sets, daily range): BP systolic 133–157; BP diastolic 64–85; PULSE 92–111; RESP 18–20; TEMP 97.8–98.6; O2SAT 94–99
[2017-12-26] MEDS: HEPARIN SODIUM - SQ 10,000 UNITS/ML VIAL SQ SCH ×2 (06:09→14:30)
[2017-12-26] MEDS: INSULIN DETEMIR 100 UNITS/ML VIAL SQ SCH (09:00)
[2017-12-26] MEDS ORDERED: COLLAGENASE OINT 30 GM TUBE TOPICAL SCH (10:15)
--- NOTE | 2017-12-26 10:57 | PD.WCN.NOT ---
Wound Consult Description: Consult for WOUND MANAGEMENT of anus and bilateral feet per telephone order DANNY/Dr Estrada Communicated with: Dr Estrada Recommendation: Calazime skin protectant paste to bilateral buttocks and perianal area for moisture BID and PRN after each cleansing. For continuity of care per Dr Vo: Santyl daily to bilateral foot wounds after cleansing with NORMAL SALINE only. Additional Information: Patient was seen by automobile service writer today on [facility] for bilateral foot wounds and perianal area. Bilateral blue heel raiser boots removed to reveal lateral and medial foot wounds. Right 5th met head is noted with full thickness skin loss that was previously debrided by Dr Vo on last admission (patient was being followed by Podiatry with orders in place). Wound measures ~1cm x ~1cm x ~0.2cm with moist pink and white tissue. Mild odor and no active drainage noted with hyperkeratotic periwound that is free floating over the wound bed. Left lateral wound measures ~2.5cm x ~2cm x ~0.4cm of vascular non granulating tissue with tendon noted to center of wound bed after being exposed when loosely adherent slough was easily removed during cleansing. Recommend to continue orders per Podiatry on last admission with patient being dc'd on 12/23/17 and returning one day later from SNF. There is an area anteriorly noted from anus that was difficult to visualize due to incontinence of bowels that appears to be scant sanguinous drainage when cleansed. This is not a pressure injury and presents as a hypergranulated area or skin tag. Recommend to cleanse patient after each incontinent episode and apply thick layer of Calazime skin protectant paste. Continue to reposition patient Q2H and PRN for comfort. Crystal Alfonso [facility] Dec 26, 2017 10:57
[2017-12-26] MEDS: SODIUM BICARBONATE 325 MG TAB G-TUBE SCH (11:11)
[2017-12-26] MEDS: levETIRAcetam 500 MG TAB PO SCH ×2 (11:12→14:30)
[2017-12-26] MEDS: CARVEDILOL 12.5 MG TAB G-TUBE SCH (11:12)
[2017-12-26] MEDS: hydrALAZINE HCL 100 MG TAB G-TUBE SCH ×2 (11:12→14:28)
[2017-12-26] MEDS: ESCITALOPRAM OXALATE 10 MG TAB G-TUBE SCH (11:12)
[2017-12-26] MEDS: ASPIRIN 81 MG CHEW TAB G-TUBE SCH (11:12)
[2017-12-26] MEDS: ALBUTEROL SULFATE 90 MCG/ACT HFA 8 GM INHALER INH SCH ×2 (11:13→14:30)
[2017-12-26] MEDS: TIOTROPIUM BROMIDE 18 MCG INH INH SCH (11:13)
[2017-12-26] MEDS: SODIUM CHLORIDE 0.9% FLUSH 10 ML FLUSH IV FLUSH SCH (11:14)
[2017-12-26 11:28] LABS: AUTOMATED NEUTROPHIL # 5.9 TH/MM3 (1.8-7.7); BASOPHIL % 0.4 % (0.0-2.0); EOSINOPHIL # 0.1 TH/MM3 (0-0.4); EOSINOPHIL % 1.9 % (0.0-4.0); HEMATOCRIT 28.6 % (39.0-51.0); HEMOGLOBIN 9.5 GM/DL (13.0-17.0); LYMPH % 12.6 % (9.0-44.0); MEAN CELL VOLUME 89.2 FL (80.0-100.0); MEAN CORPUSCULAR HEMOGLOBIN 29.6 PG (27.0-34.0); MEAN CORPUSCULAR HGB CONC 33.2 % (32.0-36.0); MEAN PLATELET VOLUME 10.3 FL (7.0-11.0); MONO % 8.5 % (0.0-8.0); MONOCYTE # 0.7 TH/MM3 (0-0.9); NEUT % 76.6 % (16.0-70.0); PLATELET COUNT 288 TH/MM3 (150-450); RED BLOOD COUNT 3.21 MIL/MM3 (4.50-5.90); RED CELL DISTRIBUTION WIDTH 14.1 % (11.6-17.2); WHITE BLOOD COUNT 7.7 TH/MM3 (4.0-11.0)
--- NOTE | 2017-12-26 11:57 | HHI.DS ---
Discharge Summary Admission Date Dec 24, 2017 at 22:49 Discharge Date: Dec 26, 2017 Admitting Diagnosis acute worsening anemia (1) Acute on chronic anemia ICD Code: D64.9 - Anemia, unspecified (2) Chronic ischemic right MCA stroke ICD Code: I69.30 - Unspecified sequelae of cerebral infarction Status: Chronic (3) Diabetes ICD Code: E11.9 - Type 2 diabetes mellitus without complications Status: Chronic Procedures None Brief History - From Admission HPI from the admitting physician 47-year-old male with a past medical history significant for diabetes mellitus, hypertension, chronic anemia, chronic pain, hemiparesis secondary to right- sided CVA, CHF, dysphagia with feeding tube placement, psychiatric disorder, depression and hyperlipidemia presents to the emergency department for the evaluation abnormal lab results. The patient had a CBC done as an outpatient earlier today and it showed a hemoglobin of 7.0. He was recently discharged from the hospital on 12/23/17 where he was treated for respiratory failure requiring intubation, pneumonia with ESBL blood culture positive gram-negative cocci treated with vancomycin and ertapenem and new onset seizures. The patient does not participate in the exam and will not answer questions. He will open his eyes when asked to and shakes his head yes or no but remains nonverbal. According to previous neurology notes from the patient's prior hospital stay this is baseline for the patient. CBC/BMP: 12/26/17 1110 12/25/17 0904 Significant Findings Laboratory Tests Test 12/24/17 21:50 12/25/17 09:04 12/26/17 11:10 Red Blood Count 2.33 MIL/MM3 (4.50-5.90) 2.92 MIL/MM3 (4.50-5.90) 3.21 MIL/MM3 (4.50-5.90) Hemoglobin 6.9 GM/DL (13.0-17.0) 8.7 GM/DL (13.0-17.0) 9.5 GM/DL (13.0-17.0) Hematocrit 20.5 % (39.0-51.0) 25.9 % (39.0-51.0) 28.6 % (39.0-51.0) Monocytes (%) (Auto) 10.9 % (0.0-8.0) 10.2 % (0.0-8.0) 8.5 % (0.0-8.0) Blood Urea Nitrogen 36 MG/DL (7-18) 36 MG/DL (7-18) Albumin 2.5 GM/DL (3.4-5.0) Calcium Level 8.4 MG/DL (8.5-10.1) Alkaline Phosphatase 124 U/L (45-117) Estimat Glomerular Filtration Rate 73 ML/MIN (>89) 76 ML/MIN (>89) Iron Level 30 MCG/DL (65-175) Total Iron Binding Capacity 209 MCG/DL (250-450) Percent Iron Saturation 14.4 % (20-50) Random Glucose 129 MG/DL (74-106) Neutrophils (%) (Auto) 76.6 % (16.0-70.0) PE at Discharge GENERAL: Chronically ill-appearing male laying in bed. CARDIOVASCULAR: Normal rate and regular rhythm without murmurs, gallops, or rubs. RESPIRATORY: Breath sounds equal and clear to auscultation bilaterally. GASTROINTESTINAL: Abdomen soft, non-tender, non-distended. Normal active bowel sounds MUSCULOSKELETAL: Extremities without cyanosis, or edema. NEURO: Can only nod yes or no to some questions. follow some commands. PSYCH: Appropriate mood and affect. Pt update on day of discharge No new issues. Patient nodded yes when asked if he is okay. Hospital Course 47 Y/O male admitted and treated for the followin. Anemia Patient with acute on chronic anemia Hematology consulted, appreciate recommendations Suspect anemia of chronic disease improved. The patient is discharged to SNF. Hemoccult negative he will need periodic monitoring of CBC. 2. History of CVA with left-sided hemiparesis, cognitive dysfunction. Patient is bedbound. Can nod and intermittently follows some commands. 3. Diabetes mellitus Continue home Levemir SSI Monitor BG 4. Hypertension/hyperlipidemia Continue home medications 5. Seizure d/o Continue Keppra 6. Psychiatric disorder/depression Continue home medications 7. Lower extremity wounds. Wound care followed the patient. He is to continue on Santyl with dressing changes. Pt Condition on Discharge: Good Discharge Disposition: Discharge to SNF Discharge Time: > 30 minutes Discharge Instructions DIET: Follow Instructions for: On Tube Feeding Activities you can perform: Regular-No Restrictions Follow up Referrals: PCP Follow-up New Medications: Collagenase (Santyl) 250 Unit/Gram Oin 1 APPLIC TOPICAL DAILY, #1 TUBE Continued Medications: Aspirin (Aspirin) 81 Mg Chew 81 MG G-TUBE DAILY, TAB 0 Refills Atorvastatin (Atorvastatin) 10 Mg Tab 10 MG G-TUBE HS for Cholesterol Management, #30 TAB 0 Refills Carvedilol (Coreg) 25 Mg Tab 25 MG PO BID, #60 TAB 0 Refills Escitalopram (Escitalopram) 10 Mg Tab 15 MG G-TUBE DAILY, #30 TAB 0 Refills Hydralazine (Hydralazine) 100 Mg Tab 100 MG G-TUBE TID for Blood Pressure Management, TAB 0 Refills Take with meals Insulin Detemir Inj (Levemir Inj) 1,000 unit/ 10 ML Vial 5 UNITS SQ BID for Blood Sugar Management, VIAL 0 Refills Do not mix with any other Insulin. Insulin Lispro (Human) Inj (Humalog Inj) 1,000 Unit/10 Ml Vial 0-15 UNITS SQ ACHS for Blood Sugar Management, #1 VIAL 0 Refills Max dose at bedtime:( )units; sugars < 70,(0)units; sugars 150-199,(2)units; sugars 200-249,(4)units; sugars 250-299,(7)units; sugars 300-349,(10)units; sugars more than 349,(12)units. Ipratropium-Albuterol Neb (Duoneb) 0.5-2.5 Mg/3 Ml Neb 1 NEBULE INH Q4HR NEB for SHORTNESS OF BREATH, #120 NEBULE 0 Refills Levetiracetam (Levetiracetam) 500 Mg Tab 500 MG PO TID for Control Seizures, #60 TAB 0 Refills Melatonin (Melatonin) 5 Mg Tab 3 MG PO HS for Provide Good Sleep, TAB 0 Refills Ondansetron (Zofran) 4 Mg Tab 4 MG G-TUBE Q6HR PRN for NAUSEA OR VOMITING, TAB 0 Refills Ranitidine (Zantac) 150 Mg Tab 75 MG G-TUBE DAILY for Reduce Stomach Acid, #30 TAB 0 Refills Sodium Bicarbonate (Sodium Bicarbonate) 325 Mg Tab 325 MG G-TUBE BIDPC, #60 TAB 0 Refills Discontinued Medications: Amoxicillin-Clavulanate (Augmentin) 875-125 Mg Tab 1 TAB PO BID for Infection, TAB 0 Refills Baclofen (Baclofen) 10 Mg Tab 10 MG PO DAILY, TAB 0 Refills Ciprofloxacin (Cipro) 250 Mg Tab 250 MG PO BID for Infection, TAB 0 Refills Promethazine Supp (Phenergan Supp) 25 Mg Supp 25 MG RECTAL Q4H PRN for NAUSEA OR VOMITING, SUPP 0 Refills Promethazine Supp (Phenergan Supp) 25 Mg Supp 25 MG RECTAL Q4H PRN for NAUSEA OR VOMITING, SUPP 0 Refills Vancomycin Inj (Vancomycin Inj) 1 Gram Inj 1250 MG IV DAILY for Infection, BAG 0 Refills Blaire Estrada MD Dec 26, 2017 11:57
[2017-12-26] MEDS ORDERED: COLL30T TOPICAL (12:00)
== END 2017-12-26 16:25 | DRG 812 ==
LOC: NEPE 20:55 → NEDA 22:49 → MERGE 22:49 → HCIS 12-25 00:09
PROVIDERS: ADMIT Family Medicine; ATTEND Family Medicine
PROC: 30233N1 Transfusion of Nonautologous Red Blood Cells into Peripheral Vein, Percutaneous Approach (ICD-10-PCS; principal; 2017-12-25)
DX: D64.89 Other specified anemias (principal); I13.0 Hypertensive heart and chronic kidney disease with heart failure and stage 1 through stage 4 chronic kidney disease, or unspecified chronic kidney disease; E11.22 Type 2 diabetes mellitus with diabetic chronic kidney disease; I50.9 Heart failure, unspecified; I69.354 Hemiplegia and hemiparesis following cerebral infarction affecting left non-dominant side; N18.9 Chronic kidney disease, unspecified; Z95.1 Presence of aortocoronary bypass graft; G40.909 Epilepsy, unspecified, not intractable, without status epilepticus; F32.9 Major depressive disorder, single episode, unspecified; G89.29 Other chronic pain; R13.10 Dysphagia, unspecified; E78.5 Hyperlipidemia, unspecified; Z93.1 Gastrostomy status; K44.9 Diaphragmatic hernia without obstruction or gangrene; Z74.01 Bed confinement status; S91.302A Unspecified open wound, left foot, initial encounter; S91.301A Unspecified open wound, right foot, initial encounter; X58.XXXA Exposure to other specified factors, initial encounter; Z87.01 Personal history of pneumonia (recurrent); Z86.14 Personal history of Methicillin resistant Staphylococcus aureus infection
CPT/HCPCS: 36430; 80048; 80053; 82728; 83540; 83550; 83735; 85025; 86850; 86900; 86901; 86920; 99285; J1644; J7050; P9016

== ENCOUNTER 2018-01-15 16:55 | Inpatient (IN) ==
[2018-01-15] MEDS ORDERED: Pantoprazole Inj 40 MG Vial IV.PUSH ONE (17:14)
--- NOTE | 2018-01-15 17:21 | ED ---
HPI General Chief Complaint: Recheck/Abnormal Lab/Rx Stated Complaint: Abnormal labs/[facility] re[facility] Time Seen by Provider: 01/15/18 17:14 Source: patient and EMS Mode of arrival: EMS Limitations: altered mental status and physical limitation (Bedbound) History of Present Illness HPI narrative: 47-year-old male patient presents to the ER from rehab facility, apparently has a low hemoglobin count of 7, he has a fairly poor historian, but denies any chest pains, dizziness, trouble breathing, abdominal pain, or other issues. Related Data Allergies Allergy/AdvReac Type Severity Reaction Status Date / Time No Known Allergies Allergy Unknown Uncoded 01/06/18 21:04 Review of Systems ROS Unobtainable unobtainable due to mental status PMFSH History History Provided By: Patient Medical History Medical History CVA (cerebral vascular accident) (Acute) Diabetes (Acute) End stage renal disease (Acute) Hemiparesis (Acute) Hemiplegia (Acute) Hypertension (Acute) Social History Social History Second Hand Smoke Exposure: No Smoking Status: Smoker, status unknown Tobacco Type: Cigarettes How Often Do You Have a Drink Containing Alcohol: Never Recent Travel in [facility] within the Last 8 Weeks: No Recent Out of Country Travel within the Last 8 Weeks: No Exam Narrative Exam Narrative: GENERAL: Well-developed bedbound middle-age -[place] male patient currently in moderate distress. Awake and alert. SKIN: Focused skin assessment warm/dry. HEAD: Atraumatic. Normocephalic. EYES: Pupils equal and round. No scleral icterus. No injection or drainage. ENT: No nasal bleeding or discharge. Mucous membranes pink and moist. NECK: Trachea midline. No JVD. CARDIOVASCULAR: Regular rate and rhythm. No murmur appreciated. RESPIRATORY: No accessory muscle use. Clear to auscultation. Breath sounds equal bilaterally. GASTROINTESTINAL: Abdomen soft, non-tender, nondistended. Hepatic and splenic margins not palpable. RECTAL EXAM: No masses or tenderness, stool is brown, Hemoccult positive. MUSCULOSKELETAL: No obvious deformities. No clubbing. No cyanosis. No edema. Left leg contracted. NEUROLOGICAL: Awake and alert. No obvious cranial nerve deficits. Motor grossly within normal limits. Aphasic speech. PSYCHIATRIC: Appropriate mood and affect; insight and judgment normal. Course Hospital Course: His H&H does show that his hemoglobin is 7 and 2 units of PRBCs were ordered for the patient. Case was then discussed with Dr. Seay for admission of GI bleed. Initial Documented Vital Signs Temperature 98.4 F 01/15/18 17:39 Pulse Rate 89 01/15/18 17:39 Respiratory Rate 14 01/15/18 17:39 Blood Pressure 127/76 01/15/18 17:39 Pulse Oximetry 98 01/15/18 17:39 Last Documented Vital Signs Temperature 98.4 F 01/15/18 17:39 Pulse Rate 89 01/15/18 17:39 Respiratory Rate 14 01/15/18 17:39 Blood Pressure 127/76 01/15/18 17:39 Pulse Oximetry 97 01/15/18 17:55 Medical Decision Making Differential Diagnosis Differential Diagnosis: GI bleed versus coagulopathy versus chronic anemia Lab Data Result diagrams: 01/15/18 17:37 01/15/18 17:37 Lab Results 01/15/18 01/15/18 01/15/18 Range/Units 17:37 17:37 17:37 WBC 4.9 (4.0-11.0) th/mm3 RBC 2.58 L (4.50-5.90) mil/mm3 Hgb 7.7 L (13.0-17.0) gm/dL Hct 23.1 L (39.0-51.0) % MCV 89.6 (80.0-100.0) fL MCH 30.0 (27.0-34.0) pg MCHC 33.5 (32.0-36.0) % RDW 14.0 (11.6-17.2) % Plt Count 193 (150-450) th/mm3 MPV 9.4 (7.0-11.0) fL Neut % (Auto) 66.9 (16.0-70.0) % Lymph % (Auto) 21.5 (9.0-44.0) % [place] % (Auto) 7.5 (0.0-8.0) % Eos % (Auto) 3.6 (0.0-4.0) % Baso % (Auto) 0.5 (0.0-2.0) % Neut # (Auto) 3.3 (1.8-7.7) th/mm3 Lymph # (Auto) 1.1 (1.0-4.8) th/mm3 [place] # (Auto) 0.4 (0.0-0.9) th/mm3 Eos # (Auto) 0.2 (0.0-0.4) th/mm3 Baso # (Auto) 0.0 (0.0-0.2) th/mm3 WBC Differential . Differential Comment Auto diff final PT 12.0 H (9.8-11.6) sec INR 1.2 Ratio APTT 27.1 (24.3-30.1) sec Sodium 135 L (136-145) meq/L Potassium 4.9 (3.5-5.1) meq/L Chloride 101 (98-107) meq/L Carbon Dioxide 23.0 (21.0-32.0) meq/L Anion Gap 11 (5-15) meq/L BUN 29 H (7-18) mg/dL Creatinine 1.10 (0.60-1.30) mg/dL Estimated GFR 87 L (>89) mL/min Random Glucose 100 (74-106) mg/dL Calcium 8.6 (8.5-10.1) mg/dL Total Bilirubin 0.5 (0.2-1.0) mg/dL AST 40 H (15-37) U/L ALT 22 (12-78) U/L Alkaline Phosphatase 117 (45-117) U/L Total Protein 8.3 H (6.4-8.2) g/dL Albumin 2.6 L (3.4-5.0) g/dL Blood Type Blood Type Recheck Antibody Screen 01/15/18 Range/Units 17:37 WBC (4.0-11.0) th/mm3 RBC (4.50-5.90) mil/mm3 Hgb (13.0-17.0) gm/dL Hct (39.0-51.0) % MCV (80.0-100.0) fL MCH (27.0-34.0) pg MCHC (32.0-36.0) % RDW (11.6-17.2) % Plt Count (150-450) th/mm3 MPV (7.0-11.0) fL Neut % (Auto) (16.0-70.0) % Lymph % (Auto) (9.0-44.0) % [place] % (Auto) (0.0-8.0) % Eos % (Auto) (0.0-4.0) % Baso % (Auto) (0.0-2.0) % Neut # (Auto) (1.8-7.7) th/mm3 Lymph # (Auto) (1.0-4.8) th/mm3 [place] # (Auto) (0.0-0.9) th/mm3 Eos # (Auto) (0.0-0.4) th/mm3 Baso # (Auto) (0.0-0.2) th/mm3 WBC Differential Differential Comment PT (9.8-11.6) sec INR Ratio APTT (24.3-30.1) sec Sodium (136-145) meq/L Potassium (3.5-5.1) meq/L Chloride (98-107) meq/L Carbon Dioxide (21.0-32.0) meq/L Anion Gap (5-15) meq/L BUN (7-18) mg/dL Creatinine (0.60-1.30) mg/dL Estimated GFR (>89) mL/min Random Glucose (74-106) mg/dL Calcium (8.5-10.1) mg/dL Total Bilirubin (0.2-1.0) mg/dL AST (15-37) U/L ALT (12-78) U/L Alkaline Phosphatase (45-117) U/L Total Protein (6.4-8.2) g/dL Albumin (3.4-5.0) g/dL Blood Type O Positive Blood Type Recheck Not needed Antibody Screen Negative Discharge Plan Discharge Disposition Patient Disposition: 30 Still Patient Discharge Condition Condition: Stable Discharge Details Anticipated Discharge Date: 01/15/18 Diagnosis: GI bleed, Anemia Physicians Team ED Provider: Cristopher Cabezas Primary Care Provider: UNKNOWN, Discharge Interventions Interventions: Vital Signs Last Done: 01/15/18 17:39 Status ED Status: With Doctor
[2018-01-15 17:52] LABS: Baso % (Auto) 0.5 % (0.0-2.0); Eos # (Auto) 0.2 th/mm3 (0.0-0.4); Eos % (Auto) 3.6 % (0.0-4.0); Hematocrit 23.1 % (39.0-51.0); Hemoglobin 7.7 gm/dL (13.0-17.0); Lymph # (Auto) 1.1 th/mm3 (1.0-4.8); Lymph % (Auto) 21.5 % (9.0-44.0); Mean Corpuscular HGB Conc 33.5 % (32.0-36.0); Mean Corpuscular Volume 89.6 fL (80.0-100.0); Mean Platelet Volume 9.4 fL (7.0-11.0); Mono # (Auto) 0.4 th/mm3 (0.0-0.9); Mono % (Auto) 7.5 % (0.0-8.0); Neut # (Auto) 3.3 th/mm3 (1.8-7.7); Neut % (Auto) 66.9 % (16.0-70.0); Platelet Count 193 th/mm3 (150-450); Red Blood Count 2.58 mil/mm3 (4.50-5.90); White Blood Count 4.9 th/mm3 (4.0-11.0)
[2018-01-15 18:02] LABS: Activated Partial Thrombo Time 27.1 sec (24.3-30.1); INR 1.2 Ratio
[2018-01-15 18:14] LABS: Alanine Aminotransferase 22 U/L (12-78)
[2018-01-15 18:17] LABS: Alkaline Phosphatase 117 U/L (45-117); Total Protein 8.3 g/dL (6.4-8.2)
[2018-01-15 18:27] LABS: Albumin 2.6 g/dL (3.4-5.0); Anion Gap 11 meq/L (5-15); Aspartate Aminotransferase 40 U/L (15-37); Blood Urea Nitrogen 29 mg/dL (7-18); Calcium 8.6 mg/dL (8.5-10.1); Chloride 101 meq/L (98-107); Glomerular Filtration Rate 87 mL/min (>89); Glucose,Random 100 mg/dL (74-106); Potassium 4.9 meq/L (3.5-5.1); Sodium 135 meq/L (136-145)
[2018-01-15] MEDS ORDERED: Sodium Chlor 0.9% Inj 250 ML IV.SIG SCH (19:00)
--- NOTE | 2018-01-16 00:30 | P.HP ---
History of Present Illness Service: [facility] Primary Care Physician: UNKNOWN Chief Complaint: abnormal lab values History of Present Illness: 47-year-old male with a past medical history significant for diabetes mellitus, hypertension, chronic anemia, chronic pain, hemiparesis secondary to right- sided CVA, CHF, dysphagia with feeding tube placement, psychiatric disorder, depression and hyperlipidemia presents to the emergency department for the evaluation abnormal lab results. The patient had a CBC done as an outpatient earlier today and it showed a hemoglobin of 7.0. He was recently discharged from the hospital on 12/23/17 where he was treated for respiratory failure requiring intubation, pneumonia with ESBL blood culture positive gram-negative cocci treated with vancomycin and ertapenem and new onset seizures. The patient has a history of acute on chronic anemia, last hospitalized on 12/24/17 for Hgb of 7.0. The patient does not participate in the exam and will not answer questions. He will open his eyes when asked to and shakes his head yes or no but remains nonverbal. According to previous neurology notes from the patient's prior hospital stay this is baseline for the patient. Inpatient Certification: I certify that the inpatient services were ordered in accordance with Medicare regulations governing the order. This includes certification that hospital inpatient services are reasonable and necessary and in the case of services not specified as inpatient-only under 42 CFR 419.22(n), that they are appropriately provided as inpatient services in accordance to with the 2-midnight benchmark under 43 CFR 412.3(e) Estimated Total Length of Stay (Days): 3 Plans for Post Hospital Care: Not yet determined [facility] - History History Provided By: Patient, Medical Record - Medical History Medical History: Medical History (Last Updated 01/16/18 @ 00:17 by Megha Hudson MD) Gastrostomy tube in place (Acute) Anemia CVA (cerebral vascular accident) Depression Diabetes HLD (hyperlipidemia) Hemiparesis Hemiplegia Hypertension - Family History Family History: Family History (This Medical Record has been edited. Action required.) Other Unknown family medical history - Tobacco History Second Hand Smoke Exposure: No Tobacco Use In Past 30 Days: No Smoking Status: Never smoker Tobacco Type: Cigarettes - Alcohol History How Often Do You Have a Drink Containing Alcohol: Never - Substance Use History Substance History: No History of Abuse - Travel History Recent Travel in the [place] Within the Last 8 Weeks: No Recent Travel Out of the Country Within the Last 8 Weeks: No - Immunization History Tetanus Immunization: Unsure Hx Influenza Vaccine This Season: Unable to Assess Medications and Allergies Active Medications: Active Medications Sodium Chloride (Ns Inj) 250 mls @ 15 mls/hr IV.SIG ONCE KRISTIE Stop: 01/16/18 11:39 Pantoprazole Sodium (Protonix Inj) 40 mg IV.PUSH Q12HR KRISTIE Sodium Chloride (Ns Flush) 2 ml IV.FLUSH PRN PRN PRN Reason: FLUSH AFTER USING IV ACCESS Sodium Chloride (Ns Flush) 2 ml IV.FLUSH BID KRISTIE Last Admin: 01/15/18 22:20 Dose: 2 ml Sodium Chloride (Ns Flush) 2 ml IV.FLUSH PRN PRN PRN Reason: FLUSH AFTER USING IV ACCESS Allergies Allergy/AdvReac Type Severity Reaction Status Date / Time No Known Allergies Allergy Unknown Uncoded 01/06/18 21:04 Home Medications Medication Instructions Recorded Confirmed Type Lexapro 10 mg PO ONCE 01/15/18 01/15/18 History ascorbic acid (vitamin C) [Vitamin 500 mg PO BID 01/15/18 01/15/18 History C] aspirin [Aspir-81] 81 mg FEEDING TUBE DAILY 01/15/18 01/16/18 History atorvastatin 10 mg FEEDING TUBE HS 01/15/18 01/16/18 History carvedilol [Coreg] 25 mg FEEDING TUBE BID 01/15/18 01/16/18 History escitalopram oxalate 15 mg FEEDING TUBE DAILY 01/15/18 01/16/18 History gentamicin 1 applic TOPICAL QID 01/15/18 01/15/18 History hydralazine 100 mg PO TID 01/15/18 01/15/18 History insulin detemir U-100 [Levemir 5 unit SUB-Q BID 01/15/18 01/15/18 History U-100 Insulin] ipratropium-albuterol 3 ml INHALATION Q6-8H PRN 01/15/18 01/15/18 History levetiracetam 500 mg PO TID 01/15/18 01/15/18 History melatonin 01/15/18 History ranitidine HCl [Zantac] 150 mg PO DAILY 01/15/18 01/15/18 History sodium bicarbonate 650 mg PO BID 01/15/18 01/15/18 History Exam Vital signs: Vital Signs 01/15/18 17:39 01/15/18 17:55 01/15/18 20:00 Temperature 98.4 F 98.4 F Pulse Rate 89 94 H Respiratory Rate 14 17 Blood Pressure 127/76 156/91 H Pulse Oximetry 98 97 97 Intake & Output 01/15/18 01/15/18 01/16/18 06:59 18:59 06:59 Weight 81.647 kg Other: # Voids 1 Narrative: GENERAL: -[place] Citizen male lying in bed SKIN: No rashes, ecchymoses or lesions. Cool and dry. HEAD: Atraumatic. Normocephalic. No temporal or scalp tenderness. EYES: Pupils equal round and reactive. Extraocular motions intact. No scleral icterus. No injection or drainage. ENT: Nose without bleeding, purulent drainage or septal hematoma. Airway patent. NECK: Trachea midline. No JVD or lymphadenopathy. CARDIOVASCULAR: Regular rate and rhythm without murmurs, gallops, or rubs. RESPIRATORY: Rales throughout. GASTROINTESTINAL: Abdomen soft, non-tender, nondistended. No hepato-splenomegaly , or palpable masses. No guarding. MUSCULOSKELETAL: Extremities without clubbing, cyanosis, or edema. No joint tenderness, effusion, or edema noted. NEUROLOGICAL: Very difficult to assess neurologic status as patient's participation in the exam is minimal. He will open his eyes when commended to and shakes his head yes or no to answer questions. Left sided hemiparesis with contracture. Results - Labs CBC & Chem 7: 01/15/18 17:37 01/15/18 17:37 Labs: Laboratory Results - last 24 hr 01/15/18 01/15/18 01/15/18 17:37 17:37 17:37 WBC 4.9 RBC 2.58 L Hgb 7.7 L Hct 23.1 L MCV 89.6 MCH 30.0 MCHC 33.5 RDW 14.0 Plt Count 193 MPV 9.4 Neut % (Auto) 66.9 Lymph % (Auto) 21.5 [place] % (Auto) 7.5 Eos % (Auto) 3.6 Baso % (Auto) 0.5 Neut # (Auto) 3.3 Lymph # (Auto) 1.1 [place] # (Auto) 0.4 Eos # (Auto) 0.2 Baso # (Auto) 0.0 WBC Differential . Differential Comment Auto diff final PT 12.0 H INR 1.2 APTT 27.1 Sodium 135 L Potassium 4.9 Chloride 101 Carbon Dioxide 23.0 Anion Gap 11 BUN 29 H Creatinine 1.10 Estimated GFR 87 L Random Glucose 100 Calcium 8.6 Total Bilirubin 0.5 AST 40 H ALT 22 Alkaline Phosphatase 117 Total Protein 8.3 H Albumin 2.6 L Blood Type Blood Type Recheck Antibody Screen 01/15/18 17:37 WBC RBC Hgb Hct MCV MCH MCHC RDW Plt Count MPV Neut % (Auto) Lymph % (Auto) [place] % (Auto) Eos % (Auto) Baso % (Auto) Neut # (Auto) Lymph # (Auto) [place] # (Auto) Eos # (Auto) Baso # (Auto) WBC Differential Differential Comment PT INR APTT Sodium Potassium Chloride Carbon Dioxide Anion Gap BUN Creatinine Estimated GFR Random Glucose Calcium Total Bilirubin AST ALT Alkaline Phosphatase Total Protein Albumin Blood Type O Positive Blood Type Recheck Not needed Antibody Screen Negative Caprini VTE Risk Assessment Caprini VTE Risk Assessment: Moderate/High Risk (score >= 2) Caprini Risk Assessment Model: Point Value = 1 Point Value = 2 Point Value = 3 Point Value = 5 Age 41-60 Minor surgery BMI > 25 kg/m2 Swollen legs Varicose veins or History of unexplained or recurrent spontaneous Oral contraceptives or hormone replacement Sepsis (< 1 month) Serious lung disease, including pneumonia (< 1 month) Abnormal pulmonary function Acute myocardial infarction Congestive heart failure (< 1 month) History of inflammatory bowel disease Medical patient at bed rest Age 61-74 Arthroscopic surgery Major open surgery (> 45 min) Laparoscopic surgery (> 45 min) Malignancy Confined to bed (> 72 hours) Immobilizing plaster cast Central venous access Age >= 75 History of VTE Family history of VTE Factor V Leiden Prothrombin [id number] Lupus anticoagulant Anticardiolipin antibodies Elevated serum homocysteine Heparin-induced thrombocytopenia Other congenital or acquired thrombophilia Stroke (< 1 month) Elective arthroplasty Hip, pelvis, or leg fracture Acute spinal cord injury (< 1 month) Prophylaxis Regimen: Total Risk Factor Score Risk Level Prophylaxis Regimen 0-1 Low Early ambulation 2 Moderate Order ONE of the following: *Sequential Compression Device (SCD) *Heparin 5000 units SQ BID 3-4 Higher Order ONE of the following medications: *Heparin 5000 units SQ TID *Enoxaparin/Lovenox 40 mg SQ daily (WT < 150 kg, CrCl > 30 mL/min) *Enoxaparin/Lovenox 30 mg SQ daily (WT < 150 kg, CrCl > 10-29 mL/min) *Enoxaparin/Lovenox 30 mg SQ BID (WT < 150 kg, CrCl > 30 mL/min) AND/OR *Sequential Compression Device (SCD) 5 or more Highest Order ONE of the following medications: *Heparin 5000 units SQ TID (Preferred with Epidurals) *Enoxaparin/Lovenox 40 mg SQ daily (WT < 150 kg, CrCl > 30 mL/min) *Enoxaparin/Lovenox 30 mg SQ daily (WT < 150 kg, CrCl > 10-29 mL/min) *Enoxaparin/Lovenox 30 mg SQ BID (WT < 150 kg, CrCl > 30 mL/min) AND *Sequential Compression Device (SCD) Assessment and Plan - Plan Assessment/plan: 1. Anemia Patient with acute on chronic anemia Iron studies from 12/24 show iron deficiency anemia Concern for GIB; Hemoccult pending IV Protonix Gastroenterology consulted, appreciate recommendations 2. History of CVA with left-sided hemiparesis Physical therapy consulted 3. Diabetes mellitus Hold home Levemir as patient NPO SSI Monitor BG 4. Hypertension/hyperlipidemia Continue home medications 5. Seizure d/o Continue Keppra 6. Psychiatric disorder/depression Continue home medications FEN NPO Electrolytes: Monitor and replete as needed
[2018-01-16] MEDS ORDERED: Dextrose 50% in Water 50 ML Vial IV.PUSH PRN (00:31)
[2018-01-16] MEDS ORDERED: Escitalopram 10 MG Tablet PO SCH (00:45)
[2018-01-16] MEDS: Dextrose 5% in Water Inj 1,000 ML IV.CONT SCH ×2 (01:46→14:39)
[2018-01-16 01:59] LABS: Baso % (Auto) 0.5 % (0.0-2.0); Eos # (Auto) 0.2 th/mm3 (0.0-0.4); Eos % (Auto) 4.2 % (0.0-4.0); Hematocrit 22.8 % (39.0-51.0); Hemoglobin 7.6 gm/dL (13.0-17.0); Lymph # (Auto) 1.3 th/mm3 (1.0-4.8); Lymph % (Auto) 27.7 % (9.0-44.0); Mean Corpuscular HGB Conc 33.3 % (32.0-36.0); Mean Corpuscular Hemoglobin 29.6 pg (27.0-34.0); Mean Corpuscular Volume 88.9 fL (80.0-100.0); Mean Platelet Volume 9.2 fL (7.0-11.0); Mono # (Auto) 0.4 th/mm3 (0.0-0.9); Mono % (Auto) 8.7 % (0.0-8.0); Neut # (Auto) 2.8 th/mm3 (1.8-7.7); Neut % (Auto) 58.9 % (16.0-70.0); Platelet Count 194 th/mm3 (150-450); Red Blood Count 2.56 mil/mm3 (4.50-5.90); White Blood Count 4.8 th/mm3 (4.0-11.0)
[2018-01-16] MEDS: Insulin NovoLOG Aspart Correctional Sugar Inj SQ SCH ×4 (03:03→18:04)
--- NOTE | 2018-01-16 09:55 | P.CONGI ---
History of Present Illness Consult date: 01/16/18 Consult reason: Anemia GI bleed Chief complaint: Gi Bleed, Anemia History of Present Illness: This is a 47-year-old male who was admitted to the hospital on 01/16/2018 for anemia possible GI bleed with a hemoglobin of 7.. According to the record patient was evaluated in the emergency room department after CBC was done earlier in the outpatient setting which showed 7. He was also noted the patient was discharged from the hospital on 12/23/2017 after being treated for respiratory failure, intubation, pneumonia and ESBL positive urine culture and acute on chronic anemia at that time with a hemoglobin of 7. Patient is awake tracks with his eyes but most of his communication is nonverbal with at shaking of his head yes or no. Currently he denies any nausea or vomiting. No abdominal pain. No diarrhea no constipation. And it is unknown whether there is any melena stools. Patient denies any EGD but states yes to colonoscopy but unknown timing or results. Labs show current hemoglobin 7.7 and 7.6, PT/INR 1.2 , bilirubin 0.5, AST 40, ALT 22. Patient has a history of a right CVA and is currently being managed with his nutrition and a G-tube. After my assessment with him he did speak and ask for my assistance to control the TV. He has unknown family history for colon cancer. <Adelina Monroy - Last Filed: 01/16/18 09:39> Review of Systems All other systems reviewed negative except as stated in HPI, other (History of CVA with minimal verbal communication) <Adelina Monroy - Last Filed: 01/16/18 09:39> [facility] - History History Provided By: Patient, Medical Record - Medical History Medical History: Medical History (Last Reviewed 01/16/18 @ 09:23 by Deven Cervantes) Gastrostomy tube in place (Acute) Anemia CVA (cerebral vascular accident) Depression Diabetes HLD (hyperlipidemia) Hemiparesis Hemiplegia Hypertension - Family History Family History: Family History (This Medical Record has been edited. Action required.) Other Unknown family medical history - Tobacco History Second Hand Smoke Exposure: No Tobacco Use In Past 30 Days: No Smoking Status: Never smoker Tobacco Type: Cigarettes - Alcohol History How Often Do You Have a Drink Containing Alcohol: Never - Substance Use History Substance History: No History of Abuse - Travel History Recent Travel in the [place] Within the Last 8 Weeks: No Recent Travel Out of the Country Within the Last 8 Weeks: No - Immunization History Tetanus Immunization: Unsure Hx Influenza Vaccine This Season: Unable to Assess <Adelina Monroy - Last Filed: 01/16/18 09:39> - Medical History Medical History: Medical History (Last Reviewed 01/16/18 @ 09:23 by Deven Cervantes) Gastrostomy tube in place (Acute) Anemia CVA (cerebral vascular accident) Depression Diabetes HLD (hyperlipidemia) Hemiparesis Hemiplegia Hypertension - Family History Family History: Family History (This Medical Record has been edited. Action required.) Other Unknown family medical history <Betsy Davenport - Last Filed: 01/16/18 14:02> Medications and Allergies Active Medications: Active Medications Atorvastatin Calcium (Lipitor) 10 mg PO HS KRISTIE Carvedilol (Coreg) 25 mg PO BID KRISTIE Dextrose (D50w Vial) 50 ml IV.PUSH UNSCH PRN PRN Reason: PER HYPOGLYCEMIA PROTOCOL Escitalopram Oxalate (Lexapro) 15 mg NG/OG DAILY KRISTIE Glucagon (Glucagon Inj) 1 mg OTHER PRN PRN PRN Reason: for Hypoglycemia Protocol Hydralazine HCl (Apresoline) 100 mg PO TID KRISTIE Sodium Chloride (Ns Inj) 250 mls @ 15 mls/hr IV.SIG ONCE KRISTIE Stop: 01/16/18 11:39 Dextrose (D5w Inj) 1,000 mls @ 84 mls/hr IV.CONT .[id number] [facility] Last Admin: 01/16/18 01:46 Dose: 84 mls/hr Insulin Aspart (Novolog Insulin Suppl Scale Inj) 0 unit SQ ACHS AND 3AM KRISTIE; Protocol Last Admin: 01/16/18 03:03 Dose: Not Given Levetiracetam (Keppra) 500 mg PO TID KRISTIE Pantoprazole Sodium (Protonix Inj) 40 mg IV.PUSH Q12HR KRISTIE Sodium Chloride (Ns Flush) 2 ml IV.FLUSH BID KRISTIE Last Admin: 01/15/18 22:20 Dose: 2 ml Sodium Chloride (Ns Flush) 2 ml IV.FLUSH PRN PRN PRN Reason: FLUSH AFTER USING IV ACCESS <Adelina Monroy - Last Filed: 01/16/18 09:39> Active Medications: Active Medications Atorvastatin Calcium (Lipitor) 10 mg PO HS [facility] Carvedilol (Coreg) 25 mg PO BID [facility] Last Admin: 01/16/18 10:06 Dose: Not Given Chlorhexidine Gluconate (Chlorhexidine 2% Cloth) 3 pack [employer] [facility] Stop: 01/19/18 13:45 Dextrose (D50w Vial) 50 ml IV.PUSH UNSCH PRN PRN Reason: PER HYPOGLYCEMIA PROTOCOL Escitalopram Oxalate (Lexapro) 15 mg NG/OG DAILY [facility] Last Admin: 01/16/18 10:07 Dose: 15 mg Glucagon (Glucagon Inj) 1 mg OTHER PRN PRN PRN Reason: for Hypoglycemia Protocol Hydralazine HCl (Apresoline) 100 mg PO TID [facility] Last Admin: 01/16/18 12:37 Dose: Not Given Dextrose (D5w Inj) 1,000 mls @ 84 mls/hr IV.CONT .[id number] [facility] Last Admin: 01/16/18 01:46 Dose: 84 mls/hr Lactated Ringer's (Lr 1000 Ml Inj) 1,000 mls @ 30 mls/hr IV.SIG .Q24H [facility] Stop: 01/19/18 13:45 Sodium Chloride (Ns Inj) 500 mls @ 30 mls/hr IV.SIG .Q10H [facility] Stop: 01/19/18 13:45 Insulin Aspart (Novolog Insulin Suppl Scale Inj) 0 unit SQ ACHS AND 3AM [facility]; Protocol Last Admin: 01/16/18 12:37 Dose: Not Given Levetiracetam (Keppra) 500 mg PO TID [facility] Last Admin: 01/16/18 12:37 Dose: Not Given Metoprolol Tartrate (Lopressor) 25 mg PO [employer] [facility] Stop: 01/19/18 13:45 Pantoprazole Sodium (Protonix Inj) 40 mg IV.PUSH Q12HR [facility] Last Admin: 01/16/18 10:07 Dose: 40 mg Povidone Iodine (Betadine 5% Antisepsis Kit) 1 applicatio EACH [employer] [facility] Stop: 01/19/18 13:45 Sodium Chloride (Ns Flush) 2 ml IV.FLUSH BID [facility] Last Admin: 01/16/18 10:07 Dose: Not Given Sodium Chloride (Ns Flush) 2 ml IV.FLUSH PRN PRN PRN Reason: FLUSH AFTER USING IV ACCESS <Betsy Davenport A - Last Filed: 01/16/18 14:02> Allergies Allergy/AdvReac Type Severity Reaction Status Date / Time No Known Allergies Allergy Unknown Uncoded 01/06/18 21:04 Home Medications Medication Instructions Recorded Confirmed Type Lexapro 10 mg PO ONCE 01/15/18 01/15/18 History ascorbic acid (vitamin C) [Vitamin 500 mg PO BID 01/15/18 01/15/18 History C] aspirin [Aspir-81] 81 mg FEEDING TUBE DAILY 01/15/18 01/16/18 History atorvastatin 10 mg FEEDING TUBE HS 01/15/18 01/16/18 History carvedilol [Coreg] 25 mg FEEDING TUBE BID 01/15/18 01/16/18 History escitalopram oxalate 15 mg FEEDING TUBE DAILY 01/15/18 01/16/18 History gentamicin 1 applic TOPICAL QID 01/15/18 01/15/18 History hydralazine 100 mg PO TID 01/15/18 01/15/18 History insulin detemir U-100 [Levemir 5 unit SUB-Q BID 01/15/18 01/15/18 History U-100 Insulin] ipratropium-albuterol 3 ml INHALATION Q6-8H PRN 01/15/18 01/15/18 History levetiracetam 500 mg PO TID 01/15/18 01/15/18 History melatonin 01/15/18 History ranitidine HCl [Zantac] 150 mg PO DAILY 01/15/18 01/15/18 History sodium bicarbonate 650 mg PO BID 01/15/18 01/15/18 History Exam Vital signs: Vital Signs 01/15/18 17:39 01/15/18 17:55 01/15/18 20:00 Temperature 98.4 F 98.4 F Pulse Rate 89 94 H Respiratory Rate 14 17 Blood Pressure 127/76 156/91 H Pulse Oximetry 98 97 97 01/16/18 00:00 01/16/18 04:00 Temperature 98 F Pulse Rate 95 H 91 H Respiratory Rate 17 17 Blood Pressure 154/79 H 163/81 H Pulse Oximetry 98 Intake & Output 01/15/18 01/16/18 01/16/18 18:59 06:59 18:59 Weight 81.647 kg Other: # Voids 1 - Constitutional no acute distress - Routine HEENT Exam Head: Present: normocephalic, atraumatic Eye: Present: EOMI ENT: Present: mucous membranes moist - Routine Neck Exam Present: supple - Routine Respiratory Exam Present: decreased breath sounds (Even, unlabored) - Routine Cardiovascular Exam Present: S1, S2 <Adelina Monroy - Last Filed: 01/16/18 09:39> Vital signs: Vital Signs 01/15/18 17:39 01/15/18 17:55 01/15/18 20:00 Temperature 98.4 F 98.4 F Pulse Rate 89 94 H Respiratory Rate 14 17 Blood Pressure 127/76 156/91 H Pulse Oximetry 98 97 97 01/16/18 00:00 01/16/18 04:00 01/16/18 08:00 Temperature 98 F 98.3 F Pulse Rate 95 H 91 H 94 H Respiratory Rate 17 17 18 Blood Pressure 154/79 H 163/81 H 140/84 Pulse Oximetry 98 96 01/16/18 08:52 01/16/18 11:04 Temperature 96.9 F L Pulse Rate 67 Respiratory Rate 18 Blood Pressure 115/56 L Pulse Oximetry 95 95 Intake & Output 01/15/18 01/16/18 01/16/18 18:59 06:59 18:59 Intake Total Balance Weight 81.647 kg Intake: Tube Irrigant Other: # Voids 1 1 <Betsy Davenport - Last Filed: 01/16/18 14:02> Results - Labs CBC & Chem 7: 01/16/18 01:37 01/15/18 17:37 Labs: Laboratory Results - last 24 hr 01/15/18 01/15/18 01/15/18 17:37 17:37 17:37 WBC 4.9 RBC 2.58 L Hgb 7.7 L Hct 23.1 L MCV 89.6 MCH 30.0 MCHC 33.5 RDW 14.0 Plt Count 193 MPV 9.4 Neut % (Auto) 66.9 Lymph % (Auto) 21.5 Atkinson % (Auto) 7.5 Eos % (Auto) 3.6 Baso % (Auto) 0.5 Neut # (Auto) 3.3 Lymph # (Auto) 1.1 Atkinson # (Auto) 0.4 Eos # (Auto) 0.2 Baso # (Auto) 0.0 WBC Differential . Differential Comment Auto diff final PT 12.0 H INR 1.2 APTT 27.1 Sodium 135 L Potassium 4.9 Chloride 101 Carbon Dioxide 23.0 Anion Gap 11 BUN 29 H Creatinine 1.10 Estimated GFR 87 L POC Glucose Random Glucose 100 Calcium 8.6 Total Bilirubin 0.5 AST 40 H ALT 22 Alkaline Phosphatase 117 Total Protein 8.3 H Albumin 2.6 L Blood Type Blood Type Recheck Antibody Screen 01/15/18 01/16/18 01/16/18 17:37 00:39 01:37 WBC 4.8 RBC 2.56 L Hgb 7.6 L Hct 22.8 L MCV 88.9 MCH 29.6 MCHC 33.3 RDW 14.0 Plt Count 194 MPV 9.2 Neut % (Auto) 58.9 Lymph % (Auto) 27.7 Atkinson % (Auto) 8.7 H Eos % (Auto) 4.2 H Baso % (Auto) 0.5 Neut # (Auto) 2.8 Lymph # (Auto) 1.3 Atkinson # (Auto) 0.4 Eos # (Auto) 0.2 Baso # (Auto) 0.0 WBC Differential . Differential Comment Auto diff final PT INR APTT Sodium Potassium Chloride Carbon Dioxide Anion Gap BUN Creatinine Estimated GFR POC Glucose 78 Random Glucose Calcium Total Bilirubin AST ALT Alkaline Phosphatase Total Protein Albumin Blood Type O Positive Blood Type Recheck Not needed Antibody Screen Negative 01/16/18 02:22 WBC RBC Hgb Hct MCV MCH MCHC RDW Plt Count MPV Neut % (Auto) Lymph % (Auto) Atkinson % (Auto) Eos % (Auto) Baso % (Auto) Neut # (Auto) Lymph # (Auto) Atkinson # (Auto) Eos # (Auto) Baso # (Auto) WBC Differential Differential Comment PT INR APTT Sodium Potassium Chloride Carbon Dioxide Anion Gap BUN Creatinine Estimated GFR POC Glucose 75 Random Glucose Calcium Total Bilirubin AST ALT Alkaline Phosphatase Total Protein Albumin Blood Type Blood Type Recheck Antibody Screen <Adelina Monroy - Last Filed: 01/16/18 09:39> - Labs CBC & Chem 7: 01/16/18 01:37 01/15/18 17:37 Labs: Laboratory Results - last 24 hr 01/15/18 01/15/18 01/15/18 17:37 17:37 17:37 WBC 4.9 RBC 2.58 L Hgb 7.7 L Hct 23.1 L MCV 89.6 MCH 30.0 MCHC 33.5 RDW 14.0 Plt Count 193 MPV 9.4 Neut % (Auto) 66.9 Lymph % (Auto) 21.5 Atkinson % (Auto) 7.5 Eos % (Auto) 3.6 Baso % (Auto) 0.5 Neut # (Auto) 3.3 Lymph # (Auto) 1.1 Atkinson # (Auto) 0.4 Eos # (Auto) 0.2 Baso # (Auto) 0.0 WBC Differential . Differential Comment Auto diff final PT 12.0 H INR 1.2 APTT 27.1 Sodium 135 L Potassium 4.9 Chloride 101 Carbon Dioxide 23.0 Anion Gap 11 BUN 29 H Creatinine 1.10 Estimated GFR 87 L POC Glucose Random Glucose 100 Calcium 8.6 Total Bilirubin 0.5 AST 40 H ALT 22 Alkaline Phosphatase 117 Total Protein 8.3 H Albumin 2.6 L Blood Type Blood Type Recheck Antibody Screen 01/15/18 01/16/18 01/16/18 17:37 00:39 01:37 WBC 4.8 RBC 2.56 L Hgb 7.6 L Hct 22.8 L MCV 88.9 MCH 29.6 MCHC 33.3 RDW 14.0 Plt Count 194 MPV 9.2 Neut % (Auto) 58.9 Lymph % (Auto) 27.7 Atkinson % (Auto) 8.7 H Eos % (Auto) 4.2 H Baso % (Auto) 0.5 Neut # (Auto) 2.8 Lymph # (Auto) 1.3 Atkinson # (Auto) 0.4 Eos # (Auto) 0.2 Baso # (Auto) 0.0 WBC Differential . Differential Comment Auto diff final PT INR APTT Sodium Potassium Chloride Carbon Dioxide Anion Gap BUN Creatinine Estimated GFR POC Glucose 78 Random Glucose Calcium Total Bilirubin AST ALT Alkaline Phosphatase Total Protein Albumin Blood Type O Positive Blood Type Recheck Not needed Antibody Screen Negative 01/16/18 02:22 WBC RBC Hgb Hct MCV MCH MCHC RDW Plt Count MPV Neut % (Auto) Lymph % (Auto) Atkinson % (Auto) Eos % (Auto) Baso % (Auto) Neut # (Auto) Lymph # (Auto) Atkinson # (Auto) Eos # (Auto) Baso # (Auto) WBC Differential Differential Comment PT INR APTT Sodium Potassium Chloride Carbon Dioxide Anion Gap BUN Creatinine Estimated GFR POC Glucose 75 Random Glucose Calcium Total Bilirubin AST ALT Alkaline Phosphatase Total Protein Albumin Blood Type Blood Type Recheck Antibody Screen <Betsy Davenport - Last Filed: 01/16/18 14:02> Assessment and Plan - Plan GI bleed, need to rule out patient did have anemia nonsymptomatic. Labs showed hemoglobin 7.7 and 7.6, PT/INR 1.2, bilirubin normal at 0.5 AST mild elevation at 40 and ALT 22. This could be related to fatty liver or some previous hepatocellular disease. Anemia see #1. No history of EGD but history of colonoscopy unknown results or timing History of right CVA with left-sided paralysis and some aphasia. Patient did speak one time but otherwise shakes his head yes or no. Patient denies any symptoms of nausea vomiting abdominal pain with negative exam no diarrhea or constipation that he admits. Unknown with melena stools. Fair to poor historian patient does have G-tube for his nutrition and according to the record has end-stage renal disease. He is 47 years old and a full code. Spoke with patient about the need for EGD and he shook his head yes to agree. Plan N.p.o. Consent for EGD for 01/16/2018, today PPI Monitor hemoglobin Further recommendations to follow Patient was seen per myself and Dr. Davenport, this note was written on his behalf <Adelina Monroy - Last Filed: 01/16/18 09:39> - Attending Attestation Seen and examined, plan as above. Consent obtained verbally from his brother. Further recommendations to follow. Thank you for the consult. <Betsy Davenport - Last Filed: 01/16/18 14:02>
[2018-01-16] MEDS: levETIRAcetam 500 MG Tablet PO SCH ×3 (10:06→18:05)
[2018-01-16] MEDS: Carvedilol 12.5 MG Tablet PO SCH (10:06)
[2018-01-16] MEDS: Pantoprazole Inj 40 MG Vial IV.PUSH SCH (10:07)
[2018-01-16] MEDS: Escitalopram 10 MG Tablet NG/OG SCH (10:07)
[2018-01-16] MEDS ORDERED: Metoprolol Tartrate 25 MG Tablet PO SCH (13:45)
[2018-01-16] MEDS ORDERED: Chlorhexidine Gluconate 2% 1 Pack (2 Cloths) TOPICAL SCH (13:45)
[2018-01-16] MEDS ORDERED: Sodium Chlor 0.9% Inj 500 ML IV.SIG SCH (14:00)
--- NOTE | 2018-01-16 14:15 | GIPROC ---
[facility] [address] [facility] [place]. [facility], [address] EGD PROCEDURE REPORT EXAM DATE: 01/16/2018 PATIENT NAME: Sandra Jackson MR #: [id number] BIRTHDATE: 1970 ATTENDING: Betsy Davenport MD ORDER #: [id number] OUTBOUND SUPERVISOR: Oscar Ribera and Rosa Yanes STATUS: inpatient INDICATIONS: The patient is a 47 yr old male here for an EGD due to anemia PROCEDURE PERFORMED: EGD, diagnostic MEDICATIONS: None and Per Anesthesia. TOPICAL ANESTHETIC: none CONSENT: The patient understands the risks and benefits of the procedure and understands that these risks include, but are not limited to: sedation, allergic reaction, infection, perforation and/or bleeding. Alternative means of evaluation and treatment include, among others: physical exam, x-rays, and/or surgical intervention. The patient elects to proceed with this endoscopic procedure. medical equipment was checked for proper function. Hand hygiene and appropriate measures for infection prevention was taken. After the risks, benefits and alternatives of the procedure were thoroughly explained, Informed consent was verified, confirmed and timeout was successfully executed by the treatment team. The patient was anesthetized with topical anesthesia and the Pentax [id number] endoscope was introduced through the mouth and advanced to the second portion of the duodenum. Retroflexion was performed and was normal The gastroscope was then slowly withdrawn and removed. ESOPHAGUS: The mucosa of the esophagus appeared normal. A 3 cm hiatal hernia was noted. STOMACH: A G tube was found in the gastric body. DUODENUM: The duodenal mucosa appeared normal in the bulb and second portion of the duodenum. ADVERSE EVENTS: There were no complications. IMPRESSIONS: 1. The esophagus appeared normal 2. 3 cm hiatal hernia 3. G- tube was found in the gastric body 4. Normal duodenal mucosa in the bulb and second portion of the duodenum 5. Retroflexion was performed and was normal RECOMMENDATIONS: No treatment PATIENT CONDITION: stable DISPOSITION: Observation REPEAT EXAM: NONE Betsy Davenport MD eSigned: Betsy Davenport MD 01/16/2018 2:15 PM cc:
[2018-01-16 16:29] LABS: Hematocrit 23.2 % (39.0-51.0); Hemoglobin 7.6 gm/dL (13.0-17.0)
[2018-01-16 17:20] LABS: Hematocrit 23.6 % (39.0-51.0)
[2018-01-17] MEDS: Carvedilol 12.5 MG Tablet PO SCH ×3 (00:01→22:25)
[2018-01-17] MEDS: Insulin NovoLOG Aspart Correctional Sugar Inj SQ SCH ×6 (01:18→22:28)
[2018-01-17 01:54] LABS: Hematocrit 23.5 % (39.0-51.0); Hemoglobin 7.9 gm/dL (13.0-17.0)
[2018-01-17 01:56] LABS: Baso % (Auto) 0.8 % (0.0-2.0); Eos # (Auto) 0.1 th/mm3 (0.0-0.4); Eos % (Auto) 3.6 % (0.0-4.0); Hematocrit 23.6 % (39.0-51.0); Hemoglobin 7.8 gm/dL (13.0-17.0); Lymph # (Auto) 1.2 th/mm3 (1.0-4.8); Lymph % (Auto) 29.5 % (9.0-44.0); Mean Corpuscular HGB Conc 33.2 % (32.0-36.0); Mean Corpuscular Hemoglobin 29.2 pg (27.0-34.0); Mean Corpuscular Volume 88.1 fL (80.0-100.0); Mean Platelet Volume 8.4 fL (7.0-11.0); Mono # (Auto) 0.3 th/mm3 (0.0-0.9); Mono % (Auto) 8.5 % (0.0-8.0); Neut # (Auto) 2.4 th/mm3 (1.8-7.7); Neut % (Auto) 57.6 % (16.0-70.0); Platelet Count 197 th/mm3 (150-450); Red Blood Count 2.68 mil/mm3 (4.50-5.90); Red Cell Distribution Width 13.6 % (11.6-17.2); White Blood Count 4.1 th/mm3 (4.0-11.0)
[2018-01-17 02:32] LABS: Anion Gap 10 meq/L (5-15); Blood Urea Nitrogen 19 mg/dL (7-18); Calcium 8.8 mg/dL (8.5-10.1); Carbon Dioxide 23.7 meq/L (21.0-32.0); Chloride 105 meq/L (98-107); Glomerular Filtration Rate Greater Than 89 mL/min (>89); Glucose,Random 63 mg/dL (74-106); Potassium 3.9 meq/L (3.5-5.1); Sodium 139 meq/L (136-145)
[2018-01-17] MEDS: Dextrose 5% in Water Inj 1,000 ML IV.CONT SCH ×2 (04:41→15:18)
[2018-01-17] MEDS: levETIRAcetam 500 MG Tablet PO SCH ×3 (10:31→19:55)
[2018-01-17] MEDS: Escitalopram 10 MG Tablet NG/OG SCH (10:32)
[2018-01-17] MEDS: Pantoprazole Inj 40 MG Vial IV.PUSH SCH ×3 (10:33→22:26)
--- NOTE | 2018-01-17 10:43 | P.PNGI ---
Subjective Interval history: Pt resting in bed, no apparent distress. He shakes his head no when asked about nausea, vomiting, and abdominal pain. TF currently running through G-tube, Nepro at 60 mL/hr. <Aileen Rees - Last Filed: 01/17/18 12:05> Physical Exam Vital signs: Vital Signs 01/16/18 11:04 01/16/18 14:32 01/16/18 16:00 Temperature 96.9 F L 97.4 F L Pulse Rate 67 89 89 Respiratory Rate 18 16 20 Blood Pressure 115/56 L 123/72 123/84 Pulse Oximetry 95 01/16/18 20:00 01/17/18 00:00 01/17/18 03:27 Temperature Pulse Rate 92 H 92 H 88 Respiratory Rate 17 17 17 Blood Pressure 160/90 H 158/87 H 141/88 H Pulse Oximetry 96 01/17/18 08:00 Temperature 98.3 F Pulse Rate 91 H Respiratory Rate 20 Blood Pressure 141/80 H Pulse Oximetry 100 Intake & Output 01/16/18 01/17/18 01/17/18 18:59 06:59 18:59 Intake Total 1430 / 1430 100 / 100 0 / 0 Balance 1430 / 1430 100 / 100 0 / 0 Intake: IV 1000 / 1000 0 / 0 D5W Inj 1,000 ML @ 84 mls/hr IV 1000 / 1000 .CONT .[id number] [facility] Rx#:[id number] Tube Irrigant 30 / 30 100 / 100 Anesthesia Amount 400 / 400 Other: # Voids 1 1 1 # Bowel Movements 1 - Constitutional no acute distress - Routine HEENT Exam Head: Present: normocephalic, atraumatic - Routine Respiratory Exam Absent: accessory muscle use - Routine Abdominal Exam Present: soft, normoactive bowel sounds. Absent: tenderness, distended, rebound , guarding Comments: G tube to TF- Nepro @ 60 mL/hr - Routine Skin Exam Present: dry, warm - Routine Neurological Exam nonverbal but does shake head no to questions <Aileen Rees - Last Filed: 01/17/18 12:05> Vital signs: Vital Signs 01/16/18 14:32 01/16/18 16:00 01/16/18 20:00 Temperature 97.4 F L Pulse Rate 89 89 92 H Respiratory Rate 16 20 17 Blood Pressure 123/72 123/84 160/90 H Pulse Oximetry 01/17/18 00:00 01/17/18 03:27 01/17/18 08:00 Temperature 98.3 F Pulse Rate 92 H 88 91 H Respiratory Rate 17 17 20 Blood Pressure 158/87 H 141/88 H 141/80 H Pulse Oximetry 96 100 01/17/18 09:00 01/17/18 12:00 Temperature 98.4 F Pulse Rate 90 85 Respiratory Rate 18 Blood Pressure 125/74 Pulse Oximetry 99 Intake & Output 01/16/18 01/17/18 01/17/18 18:59 06:59 18:59 Intake Total 1430 / 1430 100 / 100 0 / 0 Balance 1430 / 1430 100 / 100 0 / 0 Intake: IV 1000 / 1000 0 / 0 D5W Inj 1,000 ML @ 84 mls/hr IV 1000 / 1000 .CONT .[id number] [facility] Rx#:[id number] Tube Irrigant 30 / 30 100 / 100 Anesthesia Amount 400 / 400 Other: # Voids 1 1 1 # Bowel Movements 1 <Betsy Davenport A - Last Filed: 01/17/18 12:39> Results - Labs CBC & Chem 7: 01/17/18 01:25 01/17/18 01:25 Laboratory Results - last 24 hr 01/16/18 01/16/18 01/17/18 16:07 17:09 00:07 WBC RBC Hgb 7.6 L 8.0 L Hct 23.2 L 23.6 L MCV MCH MCHC RDW Plt Count MPV Neut % (Auto) Lymph % (Auto) Polk % (Auto) Eos % (Auto) Baso % (Auto) Neut # (Auto) Lymph # (Auto) [place]k # (Auto) Eos # (Auto) Baso # (Auto) WBC Differential Differential Comment Sodium Potassium Chloride Carbon Dioxide Anion Gap BUN Creatinine Estimated GFR POC Glucose 57 L Random Glucose Calcium 01/17/18 01/17/18 01/17/18 00:40 01:25 01:25 WBC 4.1 RBC 2.68 L Hgb 7.9 L 7.8 L Hct 23.5 L 23.6 L MCV 88.1 MCH 29.2 MCHC 33.2 RDW 13.6 Plt Count 197 MPV 8.4 Neut % (Auto) 57.6 Lymph % (Auto) 29.5 Polk % (Auto) 8.5 H Eos % (Auto) 3.6 Baso % (Auto) 0.8 Neut # (Auto) 2.4 Lymph # (Auto) 1.2 Polk # (Auto) 0.3 Eos # (Auto) 0.1 Baso # (Auto) 0.0 WBC Differential . Differential Comment Auto diff final Sodium Potassium Chloride Carbon Dioxide Anion Gap BUN Creatinine Estimated GFR POC Glucose 67 L Random Glucose Calcium 01/17/18 01/17/18 01/17/18 01:25 03:27 08:32 WBC RBC Hgb Hct MCV MCH MCHC RDW Plt Count MPV Neut % (Auto) Lymph % (Auto) Polk % (Auto) Eos % (Auto) Baso % (Auto) Neut # (Auto) Lymph # (Auto) [place]k # (Auto) Eos # (Auto) Baso # (Auto) WBC Differential Differential Comment Sodium 139 Potassium 3.9 D Chloride 105 Carbon Dioxide 23.7 Anion Gap 10 BUN 19 H Creatinine 0.99 Estimated GFR Greater than 89 POC Glucose 94 152 H Random Glucose 63 L Calcium 8.8 <Aileen Rees - Last Filed: 01/17/18 12:05> - Labs CBC & Chem 7: 01/17/18 01:25 01/17/18 01:25 Laboratory Results - last 24 hr 01/16/18 01/16/18 01/17/18 16:07 17:09 00:07 WBC RBC Hgb 7.6 L 8.0 L Hct 23.2 L 23.6 L MCV MCH MCHC RDW Plt Count MPV Neut % (Auto) Lymph % (Auto) Polk % (Auto) Eos % (Auto) Baso % (Auto) Neut # (Auto) Lymph # (Auto) Polk # (Auto) Eos # (Auto) Baso # (Auto) WBC Differential Differential Comment Sodium Potassium Chloride Carbon Dioxide Anion Gap BUN Creatinine Estimated GFR POC Glucose 57 L Random Glucose Calcium 01/17/18 01/17/18 01/17/18 00:40 01:25 01:25 WBC 4.1 RBC 2.68 L Hgb 7.9 L 7.8 L Hct 23.5 L 23.6 L MCV 88.1 MCH 29.2 MCHC 33.2 RDW 13.6 Plt Count 197 MPV 8.4 Neut % (Auto) 57.6 Lymph % (Auto) 29.5 Polk % (Auto) 8.5 H Eos % (Auto) 3.6 Baso % (Auto) 0.8 Neut # (Auto) 2.4 Lymph # (Auto) 1.2 Polk # (Auto) 0.3 Eos # (Auto) 0.1 Baso # (Auto) 0.0 WBC Differential . Differential Comment Auto diff final Sodium Potassium Chloride Carbon Dioxide Anion Gap BUN Creatinine Estimated GFR POC Glucose 67 L Random Glucose Calcium 01/17/18 01/17/18 01/17/18 01:25 03:27 08:32 WBC RBC Hgb Hct MCV MCH MCHC RDW Plt Count MPV Neut % (Auto) Lymph % (Auto) Polk % (Auto) Eos % (Auto) Baso % (Auto) Neut # (Auto) Lymph # (Auto) Polk # (Auto) Eos # (Auto) Baso # (Auto) WBC Differential Differential Comment Sodium 139 Potassium 3.9 D Chloride 105 Carbon Dioxide 23.7 Anion Gap 10 BUN 19 H Creatinine 0.99 Estimated GFR Greater than 89 POC Glucose 94 152 H Random Glucose 63 L Calcium 8.8 01/17/18 12:33 WBC RBC Hgb Hct MCV MCH MCHC RDW Plt Count MPV Neut % (Auto) Lymph % (Auto) Polk % (Auto) Eos % (Auto) Baso % (Auto) Neut # (Auto) Lymph # (Auto) Polk # (Auto) Eos # (Auto) Baso # (Auto) WBC Differential Differential Comment Sodium Potassium Chloride Carbon Dioxide Anion Gap BUN Creatinine Estimated GFR POC Glucose 157 H Random Glucose Calcium <Betsy Davenport - Last Filed: 01/17/18 12:39> Assessment and Plan - Plan Assessment: - Anemia with possible reports of melanotic stools Pt nonverbal, according to previous neurology notes this is baseline- pt sent from [place] for evaluation of anemia, normocytic. S/P EGD (01/16) Esophagus appeared normal, 3 cm hiatal hernia, G tube was found in the gastric body, normal duodenal mucosa in the bulb and second portion of the duodenum (01/17) Pt in no acute distress, nonverbal but shakes his head no when asked about nausea, vomiting and abdominal pain. H/H stable but low Plan Colonoscopy tomorrow Obtain consent Clear liquids NPO after MN Golytely prep through G-tube Monitor H/H Further recommendations based on colonoscopy findings Patient has been seen and examined by myself and Dr. Davenport and this note is written on his behalf <Aileen Rees - Last Filed: 01/17/18 12:05> - Attending Attestation Agree with plan as above, will obtain consent for Colonoscopy . Further recommendations to follow. <Betsy Davenport - Last Filed: 01/17/18 12:39>
--- NOTE | 2018-01-17 14:00 | P.PN ---
Subjective Interval history: Follow up for anemia with suspected GI bleed. The patient is nonverbal but does shake his head yes and no to few questions. He denies any abdominal pain, nausea /vomiting. He's tolerating his tube feeds. Discussed with RN, no acute events overnight. Physical Exam Vital signs: Vital Signs 01/16/18 14:32 01/16/18 16:00 01/16/18 20:00 Temperature 97.4 F L Pulse Rate 89 89 92 H Respiratory Rate 16 20 17 Blood Pressure 123/72 123/84 160/90 H Pulse Oximetry 01/17/18 00:00 01/17/18 03:27 01/17/18 08:00 Temperature 98.3 F Pulse Rate 92 H 88 91 H Respiratory Rate 17 17 20 Blood Pressure 158/87 H 141/88 H 141/80 H Pulse Oximetry 96 100 01/17/18 09:00 01/17/18 12:00 Temperature 98.4 F Pulse Rate 90 85 Respiratory Rate 18 Blood Pressure 125/74 Pulse Oximetry 99 Intake & Output 01/16/18 01/17/18 01/17/18 18:59 06:59 18:59 Intake Total 1430 / 1430 100 / 100 0 / 0 Balance 1430 / 1430 100 / 100 0 / 0 Intake: IV 1000 / 1000 0 / 0 D5W Inj 1,000 ML @ 84 mls/hr IV 1000 / 1000 .CONT .[id number] [facility] Rx#:[id number] Tube Irrigant 30 / 30 100 / 100 Anesthesia Amount 400 / 400 Other: # Voids 1 1 1 # Bowel Movements 1 Narrative: GENERAL: Well-nourished, well-developed middle aged male patient in [facility]. SKIN: Warm and dry. No rash. HEENT: Normocephalic. Atraumatic. Pupils equal and round. Mucous membranes pink and moist. NECK: Supple. Trachea midline. CARDIOVASCULAR: Regular rate and rhythm. No murmur appreciated. RESPIRATORY: No accessory muscle use. Clear to auscultation. Breath sounds equal bilaterally. GASTROINTESTINAL: Abdomen soft, non-tender, nondistended. Normoactive bowel sounds x4. G-tube at mid abdomen, no surrounding erythema/edema. MUSCULOSKELETAL: No obvious deformities. Extremities without clubbing, cyanosis , or edema. NEUROLOGICAL: Awake and alert. No obvious cranial nerve deficits. Left sided hemiparesis with LUE contracture. Nonverbal but follows simple commands. Results - Labs CBC & Chem 7: 01/17/18 01:25 01/17/18 01:25 Laboratory Results - last 24 hr 01/16/18 01/16/18 01/17/18 16:07 17:09 00:07 WBC RBC Hgb 7.6 L 8.0 L Hct 23.2 L 23.6 L MCV MCH MCHC RDW Plt Count MPV Neut % (Auto) Lymph % (Auto) [place] % (Auto) Eos % (Auto) Baso % (Auto) Neut # (Auto) Lymph # (Auto) [place] # (Auto) Eos # (Auto) Baso # (Auto) WBC Differential Differential Comment Sodium Potassium Chloride Carbon Dioxide Anion Gap BUN Creatinine Estimated GFR POC Glucose 57 L Random Glucose Calcium 01/17/18 01/17/18 01/17/18 00:40 01:25 01:25 WBC 4.1 RBC 2.68 L Hgb 7.9 L 7.8 L Hct 23.5 L 23.6 L MCV 88.1 MCH 29.2 MCHC 33.2 RDW 13.6 Plt Count 197 MPV 8.4 Neut % (Auto) 57.6 Lymph % (Auto) 29.5 [place] % (Auto) 8.5 H Eos % (Auto) 3.6 Baso % (Auto) 0.8 Neut # (Auto) 2.4 Lymph # (Auto) 1.2 [place] # (Auto) 0.3 Eos # (Auto) 0.1 Baso # (Auto) 0.0 WBC Differential . Differential Comment Auto diff final Sodium Potassium Chloride Carbon Dioxide Anion Gap BUN Creatinine Estimated GFR POC Glucose 67 L Random Glucose Calcium 01/17/18 01/17/18 01/17/18 01:25 03:27 08:32 WBC RBC Hgb Hct MCV MCH MCHC RDW Plt Count MPV Neut % (Auto) Lymph % (Auto) [place] % (Auto) Eos % (Auto) Baso % (Auto) Neut # (Auto) Lymph # (Auto) [place] # (Auto) Eos # (Auto) Baso # (Auto) WBC Differential Differential Comment Sodium 139 Potassium 3.9 D Chloride 105 Carbon Dioxide 23.7 Anion Gap 10 BUN 19 H Creatinine 0.99 Estimated GFR Greater than 89 POC Glucose 94 152 H Random Glucose 63 L Calcium 8.8 01/17/18 12:33 WBC RBC Hgb Hct MCV MCH MCHC RDW Plt Count MPV Neut % (Auto) Lymph % (Auto) [place] % (Auto) Eos % (Auto) Baso % (Auto) Neut # (Auto) Lymph # (Auto) [place] # (Auto) Eos # (Auto) Baso # (Auto) WBC Differential Differential Comment Sodium Potassium Chloride Carbon Dioxide Anion Gap BUN Creatinine Estimated GFR POC Glucose 157 H Random Glucose Calcium Assessment and Plan - Plan 47-year-old male with a hx of DM, HTN, HLD, chronic anemia, chronic pain, left hemiparesis secondary to right-sided CVA, CHF, dysphagia with feeding tube placement, psychiatric disorder, depression presents with abnormal outpatient labs showing Hgb 7.0. He was recently discharged from the hospital on 12/23/17 where he was treated for respiratory failure requiring intubation, pneumonia with ESBL blood culture positive gram-negative cocci treated with vancomycin and ertapenem and new onset seizures. The patient has a history of acute on chronic anemia, last hospitalized on 12/24/17 for Hgb of 7.0. Acute on Chronic Anemia: Hgb 7.7 upon arrival. -Iron studies from 12/24 show iron deficiency anemia -Concern for GIB; Hemoccult positive in the ED -Monitor H&H, stable at 7.8 -Continue on IV Protonix -Gastroenterology consulted -S/p EGD 01/16 - normal esophagus, 3cm hiatal hernia, G-tube in the gastric body; normal duodenum -Plan for colonoscopy tomorrow 01/18 History of CVA with left-sided hemiparesis and aphasia: chronic. Patient is nonverbal. -Physical therapy consulted Diabetes mellitus: chronic -Holding home Levemir as patient NPO -Monitor Accu-checks and cover with SSI Hypertension/hyperlipidemia: chronic. BP fairly well controlled. -Continue home medications -Monitor BP, adjust antihypertensives as needed Seizure disorder: chronic -Continue patient's Keppra Psychiatric disorder/depression: chronic -Continue home medications DVT Prophylaxis: teds/SCDs; avoid chemoprophylaxis with upcoming procedure Discharge Planning: Plan for colonoscopy tomorrow 01/18. Further disposition to follow.
[2018-01-17] MEDS ORDERED: PEG 3350/E-Lyte Soln 4000 ML Bottle G-TUBE ONE (16:00)
[2018-01-18] MEDS: Dextrose 5% in Water Inj 1,000 ML IV.CONT SCH ×3 (03:30→21:03)
[2018-01-18] MEDS: Insulin NovoLOG Aspart Correctional Sugar Inj SQ SCH ×5 (04:55→20:58)
[2018-01-18] MEDS: Carvedilol 12.5 MG Tablet PO SCH ×2 (09:07→20:56)
[2018-01-18] MEDS: Escitalopram 10 MG Tablet NG/OG SCH (09:08)
[2018-01-18] MEDS: levETIRAcetam 500 MG Tablet PO SCH ×3 (09:09→18:47)
--- NOTE | 2018-01-18 09:55 | P.PN ---
Subjective Interval history: Follow up for anemia, suspected GI bleeding. The patient is nonverbal but shakes his head yes/no to few questions. Denies any abdominal pain, nausea/ vomiting. S/p bowel prep overnight. Going for colonoscopy today. No acute events overnight. Physical Exam Vital signs: Vital Signs 01/17/18 12:00 01/17/18 16:00 01/17/18 20:00 Temperature 98.4 F 96.3 F L 98.5 F Pulse Rate 85 85 91 H Respiratory Rate 18 22 17 Blood Pressure 125/74 151/65 H 140/83 Pulse Oximetry 99 100 01/18/18 00:00 01/18/18 04:00 01/18/18 07:37 Temperature 98.2 F Pulse Rate 89 89 86 Respiratory Rate 17 17 16 Blood Pressure 126/77 120/72 166/79 H Pulse Oximetry 95 95 Intake & Output 01/17/18 01/18/18 01/18/18 18:59 06:59 18:59 Intake Total 1000 / 1000 5500 / 5500 1000 / 1000 Output Total 1000 / 1000 Balance 1000 / 1000 4500 / 4500 1000 / 1000 Intake: IV 1000 / 1000 2000 / 2000 1000 / 1000 D5W Inj 1,000 ML @ 84 mls/hr IV 1000 / 1000 1000 / 1000 1000 / 1000 .CONT .[id number] [facility] Rx#:[id number] LR 1000 mL Inj 1,000 ML @ 30 1000 / 1000 mls/hr IV.SIG .Q24H [facility] Rx#: [id number] Other 3500 / 3500 Output: Stool 1000 / 1000 Other: # Voids 1 2 Narrative: GENERAL: Well-nourished, well-developed middle aged male patient in [facility]. SKIN: Warm and dry. No rash. HEENT: Normocephalic. Atraumatic. Pupils equal and round. Mucous membranes pink and moist. NECK: Supple. Trachea midline. CARDIOVASCULAR: Regular rate and rhythm. No murmur appreciated. RESPIRATORY: No accessory muscle use. Clear to auscultation. Breath sounds equal bilaterally. GASTROINTESTINAL: Abdomen soft, non-tender, nondistended. Normoactive bowel sounds x4. G-tube at mid abdomen, no surrounding erythema/edema. MUSCULOSKELETAL: No obvious deformities. Extremities without clubbing, cyanosis , or edema. NEUROLOGICAL: Awake and alert. No obvious cranial nerve deficits. Left sided hemiparesis with LUE contracture. Nonverbal but follows simple commands. Results - Labs CBC & Chem 7: 01/17/18 01:25 01/17/18 01:25 Laboratory Results - last 24 hr 01/17/18 01/17/18 01/18/18 12:33 22:28 05:17 POC Glucose 157 H 109 105 01/18/18 07:26 POC Glucose 109 Assessment and Plan - Plan 47-year-old male with a hx of DM, HTN, HLD, chronic anemia, chronic pain, left hemiparesis secondary to right-sided CVA, CHF, dysphagia with feeding tube placement, psychiatric disorder, depression presents with abnormal outpatient labs showing Hgb 7.0. He was recently discharged from the hospital on 12/23/17 where he was treated for respiratory failure requiring intubation, pneumonia with ESBL blood culture positive gram-negative cocci treated with vancomycin and ertapenem and new onset seizures. The patient has a history of acute on chronic anemia, last hospitalized on 12/24/17 for Hgb of 7.0. Acute on Chronic Anemia: Hgb 7.7 upon arrival. -Iron studies from 12/24 show iron deficiency anemia -Concern for GIB; Hemoccult positive in the ED -Monitor H&H, stable at 7.8 -Continue on IV Protonix -Gastroenterology consulted -S/p EGD 01/16 - normal esophagus, 3cm hiatal hernia, G-tube in the gastric body; normal duodenum -Plan for colonoscopy today, further disposition to follow -Repeat labs in am History of CVA with left-sided hemiparesis and aphasia: chronic. Patient is nonverbal. -Physical therapy consulted, plan to return to rehab Diabetes mellitus: chronic -Holding home Levemir as patient NPO -Monitor Accu-checks and cover with SSI Hypertension/hyperlipidemia: chronic. BP fairly well controlled. -Continue home medications -Monitor BP, adjust antihypertensives as needed Seizure disorder: chronic -Continue patient's Keppra Psychiatric disorder/depression: chronic -Continue home medications DVT Prophylaxis: teds/SCDs; avoid chemoprophylaxis with upcoming procedure Discharge Planning: Going for colonoscopy today. Further disposition to follow.
[2018-01-18] MEDS: Pantoprazole Inj 40 MG Vial IV.PUSH SCH ×2 (10:30→21:02)
[2018-01-18] MEDS ORDERED: Lidocaine PF 1% Inj 5 ML Syringe INFILTRATN ONE (12:00)
--- NOTE | 2018-01-18 13:20 | GIPROC ---
[facility] [address] [facility]. [facility], [address] COLONOSCOPY PROCEDURE REPORT EXAM DATE: 01/18/2018 PATIENT NAME: Sandra Jackson MR #: [id number] BIRTHDATE: 1970 ENDOSCOPIST: Betsy Davenport MD ORDER #: [id number] BIOMASS FACILITATOR: Oscar Ribera and Justin Morris STATUS: inpatient INDICATIONS: The patient is a 47 yr old male here for a colonoscopy due to anemia, non-specific PROCEDURE PERFORMED: Colonoscopy, incomplete MEDICATIONS: None and Per Anesthesia. PREP QUALITY: good PREP TYPE:Fleets Phospho Soda ESTIMATED BLOOD LOSS: None CONSENT: The patient understands the risks and benefits of the procedure and understands that these risks include, but are not limited to: sedation, allergic reaction, infection, perforation and/or bleeding. Alternative means of evaluation and treatment include, among others: physical exam, x-rays, and/or surgical intervention. The patient elects to proceed with this endoscopic procedure. medical equipment was checked for proper function. Hand hygiene and appropriate measures for infection prevention was taken. After the risks, benefits and alternatives of the procedure were thoroughly explained, Informed consent was verified, confirmed and timeout was successfully executed by the treatment team. A digital exam revealed no abnormalities of the rectum The Pentax [id number] endoscope was introduced through the anus and advanced to the sigmoid colon. The instrument was then slowly withdrawn as the colon was fully examined. COLON FINDINGS: There was severe diverticulosis noted in the sigmoid colon with associated angulation, muscular hypertrophy, colonic narrowing and luminal narrowing. Retroflexion was not performed due to a narrow rectal vault The scope was then completely withdrawn from the patient and the procedure terminated. PROCEDURE WITHDRAWAL TIME:10minutes ADVERSE EVENTS: There were no complications. IMPRESSIONS: 1. There was severe diverticulosis noted in the sigmoid colon 2. Limited exam to 30 cm from anal verge. RECOMMENDATIONS: Xray for Barium enema RECALL: NONE Betsy Davenport MD eSigned: Betsy Davenport MD 01/18/2018 1:20 PM cc:
--- NOTE | 2018-01-18 16:09 | XR ---
EXAM DATE: 01/18/2018 3:20 PM EDT AGE/SEX: 47 years / Male INDICATIONS: Family Support Coordinator for enema. CLINICAL DATA: This is the patient's initial encounter. Patient reports that signs and symptoms have been present for 1 day and indicates a pain score of 10/10. MEDICAL/SURGICAL HISTORY: Diabetes mellitus type II. Hypertension. Stroke. CABG. COMPARISON: No prior exams available for comparison. FINDINGS: Exam limited by motion. Scattered air is seen throughout the colon. There is no free air or obstruct ion. CONCLUSION: Limited by motion otherwise negative Electronically signed by: Candido Emery MD 01/18/2018 4:08 PM EDT
[2018-01-19] MEDS: Dextrose 5% in Water Inj 1,000 ML IV.CONT SCH ×2 (05:07→12:56)
[2018-01-19] MEDS: Insulin NovoLOG Aspart Correctional Sugar Inj SQ SCH ×5 (05:09→22:14)
[2018-01-19 07:30] LABS: Hematocrit 24.9 % (39.0-51.0); Hemoglobin 8.4 gm/dL (13.0-17.0); Mean Corpuscular HGB Conc 33.7 % (32.0-36.0); Mean Corpuscular Hemoglobin 29.7 pg (27.0-34.0); Mean Corpuscular Volume 88.1 fL (80.0-100.0); Mean Platelet Volume 8.6 fL (7.0-11.0); Platelet Count 214 th/mm3 (150-450); Red Blood Count 2.83 mil/mm3 (4.50-5.90); White Blood Count 3.9 th/mm3 (4.0-11.0)
[2018-01-19 07:43] LABS: Anion Gap 13 meq/L (5-15); Blood Urea Nitrogen 10 mg/dL (7-18); Calcium 8.9 mg/dL (8.5-10.1); Carbon Dioxide 21.5 meq/L (21.0-32.0); Chloride 104 meq/L (98-107); Glomerular Filtration Rate Greater Than 89 mL/min (>89); Glucose,Random 122 mg/dL (74-106); Potassium 3.8 meq/L (3.5-5.1); Sodium 138 meq/L (136-145)
[2018-01-19] MEDS: Pantoprazole Inj 40 MG Vial IV.PUSH SCH ×2 (09:31→22:13)
[2018-01-19] MEDS: levETIRAcetam 500 MG Tablet PO SCH ×3 (09:31→17:34)
[2018-01-19] MEDS: Carvedilol 12.5 MG Tablet PO SCH ×2 (09:31→22:12)
[2018-01-19] MEDS: Escitalopram 10 MG Tablet NG/OG SCH (09:31)
--- NOTE | 2018-01-19 09:34 | FL ---
EXAM DATE: 01/19/2018 9:27 AM EDT AGE/SEX: 47 years / Male INDICATIONS: Rectal bleeding. CLINICAL DATA: This is the patient's subsequent encounter. Patient reports that signs and symptoms h ave been present for 2 days and indicates a pain score of 10/10. MEDICAL/SURGICAL HISTORY: . Diabetes mellitus type II. Hypertension. . CABG. COMPARISON: [facility], ABDOMEN 1V KUB, 01/18/2018. . FLUORO TIME: 1.1 minutes minutes. IMAGE COUNT: 4 FINDINGS: A balloon tip catheter was inserted into the rectum, and barium was instilled under fluoroscopic cont rol. Barium flows freely within the rectum, however, the balloon was unable to achieve a good rectoc sacha and the patient was unable or unwilling to proceed further with the exam. The rectum is normal in contour without evidence of filling defect.. CONCLUSION: Extremely limited exam secondary to inability to achieve a rectocele as well as the patient's inabili ty to complete the exam. Evaluation of the rectum demonstrated no evidence of mass or filling defect. Electronically signed by: Maria Elena Hernandez MD 01/19/2018 9:33 AM EDT
--- NOTE | 2018-01-19 10:44 | P.PNIM ---
Subjective Interval history: The patient was resting in bed. He did not indicate any acute complaints or concerns. He was nodding or shaking his head to questions. Discussed with nursing. Physical Exam Vital signs: Vital Signs 01/18/18 13:25 01/18/18 14:18 01/18/18 15:48 Temperature 97.5 F L 97.5 F L Pulse Rate 75 83 Respiratory Rate 20 18 16 Blood Pressure 149/89 H 165/90 H Pulse Oximetry 100 96 99 01/18/18 20:00 01/18/18 20:32 01/18/18 21:55 Temperature 98.3 F 98.4 F Pulse Rate 93 H 87 84 Respiratory Rate 17 18 Blood Pressure 146/95 H 152/85 H Pulse Oximetry 98 96 01/19/18 00:00 01/19/18 00:05 01/19/18 04:00 Temperature 98.8 F 98.0 F Pulse Rate 84 85 87 Respiratory Rate 17 17 Blood Pressure 130/73 136/72 Pulse Oximetry 98 98 01/19/18 08:00 Temperature 98.1 F Pulse Rate 93 H Respiratory Rate 19 Blood Pressure 149/81 H Pulse Oximetry 99 Intake & Output 01/18/18 01/19/18 01/19/18 18:59 06:59 18:59 Intake Total 1350 / 1350 1810 / 1810 Balance 1350 / 1350 1810 / 1810 Weight 76.3 kg Intake: IV 1000 / 1000 1000 / 1000 D5W Inj 1,000 ML @ 84 mls/hr IV 1000 / 1000 1000 / 1000 .CONT .[id number] [facility] Rx#:[id number] Tube Feeding 710 / 710 Tube Irrigant 100 / 100 Anesthesia Amount 350 / 350 Other: # Voids 2 # Incontinent Voids 2 # Incontinent Bowel Movements 1 Narrative: GENERAL: Well-nourished, well-developed, in [facility]. SKIN: Warm and dry. No rash. HEENT: Normocephalic. Atraumatic. Pupils equal and round. Mucous membranes pink and moist. NECK: Supple. Trachea midline. CARDIOVASCULAR: Regular rate and rhythm. No murmur appreciated. RESPIRATORY: No accessory muscle use. Clear to auscultation. Breath sounds equal bilaterally. GASTROINTESTINAL: Abdomen soft, non-tender, nondistended. Normoactive bowel sounds x4. G-tube at mid abdomen, no surrounding erythema/edema. MUSCULOSKELETAL: No obvious deformities. Extremities without clubbing, cyanosis , or edema. NEUROLOGICAL: Awake and alert. No obvious cranial nerve deficits. Left sided hemiparesis with LUE contracture. Nonverbal but follows simple commands. Moves RUE. Results - Labs CBC & Chem 7: 01/19/18 06:47 01/19/18 06:47 Laboratory Results - last 24 hr 01/18/18 01/18/18 01/18/18 13:23 16:16 20:51 WBC RBC Hgb Hct MCV MCH MCHC RDW Plt Count MPV Sodium Potassium Chloride Carbon Dioxide Anion Gap BUN Creatinine Estimated GFR POC Glucose 120 H 131 H 112 H Random Glucose Calcium 01/19/18 01/19/18 01/19/18 05:04 06:47 06:47 WBC 3.9 L RBC 2.83 L Hgb 8.4 L Hct 24.9 L MCV 88.1 MCH 29.7 MCHC 33.7 RDW 14.0 Plt Count 214 MPV 8.6 Sodium 138 Potassium 3.8 Chloride 104 Carbon Dioxide 21.5 Anion Gap 13 BUN 10 Creatinine 0.89 Estimated GFR Greater than 89 POC Glucose 132 H Random Glucose 122 H Calcium 8.9 01/19/18 07:38 WBC RBC Hgb Hct MCV MCH MCHC RDW Plt Count MPV Sodium Potassium Chloride Carbon Dioxide Anion Gap BUN Creatinine Estimated GFR POC Glucose 133 H Random Glucose Calcium - Imaging Impressions Abdomen X-Ray 01/18/18 00:00 CONCLUSION: Limited by motion otherwise negative Barium Enema w/ Air Contrast, therapeutic 01/19/18 00:00 CONCLUSION: Extremely limited exam secondary to inability to achieve a rectocele as well as the patient's inability to complete the exam. Evaluation of the rectum demonstrated no evidence of mass or filling defect. Assessment and Plan - Plan 47-year-old male with a hx of DM, HTN, HLD, chronic anemia, chronic pain, left hemiparesis secondary to right-sided CVA, CHF, dysphagia with feeding tube placement, psychiatric disorder, depression presents with abnormal outpatient labs showing Hgb 7.0. He was recently discharged from the hospital on 12/23/17 where he was treated for respiratory failure requiring intubation, pneumonia with ESBL blood culture positive gram-negative cocci treated with vancomycin and ertapenem and new onset seizures. The patient has a history of acute on chronic anemia, last hospitalized on 12/24/17 for Hgb of 7.0. Acute on Chronic Anemia: Hgb 7.7 upon arrival. -Iron studies from 12/24 show iron deficiency anemia -Concern for GIB; Hemoccult positive in the ED -Monitor H&H, stable at 7.8 -Continue on IV Protonix -Gastroenterology consulted -S/p EGD 01/16 - normal esophagus, 3cm hiatal hernia, G-tube in the gastric body; normal duodenum -colonoscopy with severe diverticulosis -Repeat labs in am History of CVA with left-sided hemiparesis and aphasia: chronic. Patient is nonverbal. -Physical therapy consulted, plan to return to rehab -resume tube feed diet -will d/c back to SNF when cleared by GI. Diabetes mellitus: chronic -Holding home Levemir for now -Monitor Accu-checks and cover with SSI Hypertension/hyperlipidemia: chronic. BP fairly well controlled. -Continue home medications -Monitor BP, adjust antihypertensives as needed Seizure disorder: chronic -Continue patient's Keppra Psychiatric disorder/depression: chronic -Continue home medications Foot ulcers/ buttocks wound Noted by nursing. - wound nurse consult pending. DVT Prophylaxis: teds/SCDs; avoid chemoprophylaxis with upcoming procedure
--- NOTE | 2018-01-19 13:49 | P.DIET ---
Nutritional Evaluation Type of nutrition evaluation: initial Nutrition consult regarding: Tube Feeding Subjective Barriers to Nutrition: Swallowing problem Oral Diet Tolerance Assessment Indicates: Swallowing problems Objective - Diagnosis abnormal labs. PMH see H&P - Objective % IBW: 94 Body Weight Used for Calculations: Actual (Used 76kgs) Energy Needs - Lower Range (kCal/kg): 28 Energy Needs - Upper Range (kCal/kg): 32 Lower Limit kCal/kg (kCals): 2,128 Upper Limit kCal/kg (kCals): 2,432 Lower Limit Protein Factor (Grams per Kg): 1 Upper Limit Protein Factor (Grams per Kg): 1.5 Lower Protein Needs (Protein): 76 Upper Protein Needs (Protein): 114 Dietitian Reviewed in Medical Record: Curent medications, Intake & Output, Labs , Medical history, Tube feeding, Wound/DTI Diet Order: TF Wound Care Note: Left and Right pressure injury, no noted stage at this time. Objective Comments: PMH significant for diabetes mellitus, hypertension, chronic anemia, chronic pain, hemiparesis secondary to right-sided CVA, CHF, dysphagia with feeding tube placement, psychiatric disorder, depression and hyperlipidemia Feeding - Current Tube Feeding Tube Feeding Product: Nepro Tube Feeding Method: Pump Tube Feeding Rate: 60 Assessment Assessment: Pt. is at nutritional risk due to dx. and need for TFing. Pt. presents to the emergency department for the evaluation abnormal lab results. Pt. with noted pressure injury but not staged at this time. Pt. with noted BMs but no UOP at this time. Recommend changing TFing to Glucerna 1.5 @ goal rate of 60mls/hr to better fit patients needs. Will provide 2160kcals, 119g of protein and 1093mls of free water. Monitor TFing tolerance, labs, pressure injuries and wt. Recommendations: 1. Recommend changing TFing to Glucerna 1.5 @ goal rate of 60mls/hr to better fit patients needs. 2. Monitor TFing tolerance, labs, pressure injuries and wt. Dietitian to Monitor: Lab values, Electrolytes, Glucose level, Intake & Output, Tube feeding tolerance, Weight change, Residuals, Wound/skin status, Medical course
--- NOTE | 2018-01-19 14:23 | P.PNGI ---
Subjective Interval history: Pt resting in bed, no apparent distress. Shakes his head no when asked about abdominal pain. 1 BM today, no obvious bleeding <Aileen Rees - Last Filed: 01/19/18 14:19> Physical Exam Vital signs: Vital Signs 01/18/18 15:48 01/18/18 20:00 01/18/18 20:32 Temperature 97.5 F L 98.3 F 98.4 F Pulse Rate 83 93 H 87 Respiratory Rate 16 17 18 Blood Pressure 165/90 H 146/95 H 152/85 H Pulse Oximetry 99 98 96 01/18/18 21:55 01/19/18 00:00 01/19/18 00:05 Temperature 98.8 F Pulse Rate 84 84 85 Respiratory Rate 17 Blood Pressure 130/73 Pulse Oximetry 98 01/19/18 04:00 01/19/18 08:00 01/19/18 12:00 Temperature 98.0 F 98.1 F 97.7 F Pulse Rate 87 93 H 83 Respiratory Rate 17 19 18 Blood Pressure 136/72 149/81 H 120/68 Pulse Oximetry 98 99 98 Intake & Output 01/18/18 01/19/18 01/19/18 18:59 06:59 18:59 Intake Total 1350 / 1350 1810 / 1810 1000 / 1000 Balance 1350 / 1350 1810 / 1810 1000 / 1000 Weight 76.3 kg Intake: IV 1000 / 1000 1000 / 1000 1000 / 1000 D5W Inj 1,000 ML @ 84 mls/hr IV 1000 / 1000 1000 / 1000 1000 / 1000 .CONT .[id number] [facility] Rx#:[id number] Tube Feeding 710 / 710 Tube Irrigant 100 / 100 Anesthesia Amount 350 / 350 Other: # Voids 2 # Incontinent Voids 2 # Incontinent Bowel Movements 1 - Constitutional no acute distress - Routine HEENT Exam Head: Present: normocephalic, atraumatic - Routine Respiratory Exam Absent: accessory muscle use - Routine Abdominal Exam Present: soft, normoactive bowel sounds. Absent: tenderness, distended, rebound , guarding, firm - Routine Skin Exam Present: dry, warm - Routine Neurological Exam Present: alert <Aileen Rees - Last Filed: 01/19/18 14:19> Vital signs: Vital Signs 01/18/18 21:55 01/19/18 00:00 01/19/18 00:05 Temperature 98.8 F Pulse Rate 84 84 85 Respiratory Rate 17 Blood Pressure 130/73 Pulse Oximetry 98 01/19/18 04:00 01/19/18 08:00 01/19/18 09:00 Temperature 98.0 F 98.1 F Pulse Rate 87 93 H 85 Respiratory Rate 17 19 Blood Pressure 136/72 149/81 H Pulse Oximetry 98 99 01/19/18 12:00 01/19/18 16:00 Temperature 97.7 F 97.9 F Pulse Rate 83 84 Respiratory Rate 18 18 Blood Pressure 120/68 118/70 Pulse Oximetry 98 98 Intake & Output 01/19/18 01/19/18 01/20/18 06:59 18:59 06:59 Intake Total 1810 / 1810 1000 / 1000 Output Total 700 / 700 Balance 1810 / 1810 300 / 300 Weight 76.3 kg Intake: IV 1000 / 1000 1000 / 1000 D5W Inj 1,000 ML @ 84 mls/hr IV 1000 / 1000 1000 / 1000 .CONT .[id number] [facility] [place] Rx#:[id number] Tube Feeding 710 / 710 Tube Irrigant 100 / 100 Output: Urine 700 / 700 Other: # Voids 2 1 # Incontinent Voids 2 # Incontinent Bowel Movements 1 <Betsy Davenport A - Last Filed: 01/19/18 21:11> Results - Labs CBC & Chem 7: 01/19/18 06:47 01/19/18 06:47 Laboratory Results - last 24 hr 01/18/18 01/18/18 01/19/18 16:16 20:51 05:04 WBC RBC Hgb Hct MCV MCH MCHC RDW Plt Count MPV Sodium Potassium Chloride Carbon Dioxide Anion Gap BUN Creatinine Estimated GFR POC Glucose 131 H 112 H 132 H Random Glucose Calcium 01/19/18 01/19/18 01/19/18 06:47 06:47 07:38 WBC 3.9 L RBC 2.83 L Hgb 8.4 L Hct 24.9 L MCV 88.1 MCH 29.7 MCHC 33.7 RDW 14.0 Plt Count 214 MPV 8.6 Sodium 138 Potassium 3.8 Chloride 104 Carbon Dioxide 21.5 Anion Gap 13 BUN 10 Creatinine 0.89 Estimated GFR Greater than 89 POC Glucose 133 H Random Glucose 122 H Calcium 8.9 01/19/18 12:14 WBC RBC Hgb Hct MCV MCH MCHC RDW Plt Count MPV Sodium Potassium Chloride Carbon Dioxide Anion Gap BUN Creatinine Estimated GFR POC Glucose 128 H Random Glucose Calcium - Imaging Impressions Abdomen X-Ray 01/18/18 00:00 CONCLUSION: Limited by motion otherwise negative Barium Enema w/ Air Contrast, therapeutic 01/19/18 00:00 CONCLUSION: Extremely limited exam secondary to inability to achieve a rectocele as well as the patient's inability to complete the exam. Evaluation of the rectum demonstrated no evidence of mass or filling defect. <Aileen Rees - Last Filed: 01/19/18 14:19> - Labs CBC & Chem 7: 01/19/18 06:47 01/19/18 06:47 Laboratory Results - last 24 hr 01/19/18 01/19/18 01/19/18 05:04 06:47 06:47 WBC 3.9 L RBC 2.83 L Hgb 8.4 L Hct 24.9 L MCV 88.1 MCH 29.7 MCHC 33.7 RDW 14.0 Plt Count 214 MPV 8.6 Sodium 138 Potassium 3.8 Chloride 104 Carbon Dioxide 21.5 Anion Gap 13 BUN 10 Creatinine 0.89 Estimated GFR Greater than 89 POC Glucose 132 H Random Glucose 122 H Calcium 8.9 01/19/18 01/19/18 01/19/18 07:38 12:14 16:39 WBC RBC Hgb Hct MCV MCH MCHC RDW Plt Count MPV Sodium Potassium Chloride Carbon Dioxide Anion Gap BUN Creatinine Estimated GFR POC Glucose 133 H 128 H 127 H Random Glucose Calcium 01/19/18 19:53 WBC RBC Hgb Hct MCV MCH MCHC RDW Plt Count MPV Sodium Potassium Chloride Carbon Dioxide Anion Gap BUN Creatinine Estimated GFR POC Glucose 142 H Random Glucose Calcium - Imaging Impressions Barium Enema w/ Air Contrast, therapeutic 01/19/18 00:00 CONCLUSION: Extremely limited exam secondary to inability to achieve a rectocele as well as the patient's inability to complete the exam. Evaluation of the rectum demonstrated no evidence of mass or filling defect. <Betsy Davenport - Last Filed: 01/19/18 21:11> Assessment and Plan - Plan Assessment: - Anemia with possible reports of melanotic stools Pt nonverbal, according to previous neurology notes this is baseline- [place] sent [place] for evaluation of anemia, normocytic. S/P EGD (01/16) Esophagus appeared normal, 3 cm hiatal hernia, G tube was found in the gastric body, normal duodenal mucosa in the bulb and second portion of the duodenum (01/17) Pt in no acute distress, nonverbal but shakes his head no when asked about nausea, vomiting and abdominal pain. H/H stable but low (01/19) H/H stable. 1 BM today with no obvious bleeding. Pt shakes his head no when asked about abdominal pain. Colonoscopy --> Severe diverticulosis noted in the sigmoid colon, limited exam to 30 cm from anal verge. Barium enema --> Extremely limited exam secondary to inability to achieve a rectocele as well as the patient's inability to complete the exam. Evaluation of the rectum demonstrated no evidence of mass or filling defect. Plan Repeat colonoscopy as outpatient Capsule endoscopy outpatient GI will sign off, please reconsult as needed Have pt follow up with GI after DC Patient has been seen and examined by myself and Dr. Davenport and this note is written on his behalf <Aileen Rees - Last Filed: 01/19/18 14:19> - Attending Attestation Seen and examined, plan as above. Please notify us if needed again. <Betsy Davenport - Last Filed: 01/19/18 21:11>
[2018-01-20] MEDS: Insulin NovoLOG Aspart Correctional Sugar Inj SQ SCH ×5 (03:00→22:16)
[2018-01-20] MEDS: Dextrose 5% in Water Inj 1,000 ML IV.CONT SCH ×2 (06:00→17:15)
[2018-01-20 07:28] LABS: Hematocrit 23.6 % (39.0-51.0); Hemoglobin 8.1 gm/dL (13.0-17.0); Mean Corpuscular HGB Conc 34.3 % (32.0-36.0); Mean Corpuscular Hemoglobin 30.3 pg (27.0-34.0); Mean Corpuscular Volume 88.3 fL (80.0-100.0); Mean Platelet Volume 8.8 fL (7.0-11.0); Platelet Count 209 th/mm3 (150-450); Red Blood Count 2.67 mil/mm3 (4.50-5.90); Red Cell Distribution Width 14.1 % (11.6-17.2)
[2018-01-20] MEDS: Pantoprazole Inj 40 MG Vial IV.PUSH SCH ×2 (08:56→21:51)
[2018-01-20] MEDS: levETIRAcetam 500 MG Tablet PO SCH ×3 (08:57→21:58)
[2018-01-20] MEDS: Carvedilol 12.5 MG Tablet PO SCH ×2 (08:57→21:50)
[2018-01-20] MEDS: Escitalopram 10 MG Tablet NG/OG SCH (08:57)
--- NOTE | 2018-01-20 10:08 | P.PNIM ---
Subjective Interval history: The patient was resting comfortably. He was moving his right lower extremity around. He was nodding and shaking his head in response to questions. He indicated he wanted to leave the hospital. He denied any pain. Discussed with nursing. Physical Exam Vital signs: Vital Signs 01/19/18 12:00 01/19/18 16:00 01/19/18 20:02 Temperature 97.7 F 97.9 F 98.8 F Pulse Rate 83 84 90 Respiratory Rate 18 18 19 Blood Pressure 120/68 118/70 118/57 L Pulse Oximetry 98 98 92 L 01/19/18 23:28 01/20/18 00:00 01/20/18 03:06 Temperature 100.1 F H 99.9 F H Pulse Rate 87 87 88 Respiratory Rate 18 18 Blood Pressure 115/62 120/73 Pulse Oximetry 92 L 92 L 01/20/18 03:59 01/20/18 08:00 Temperature 98.3 F Pulse Rate 88 90 Respiratory Rate 20 Blood Pressure 128/70 Pulse Oximetry 96 Intake & Output 01/19/18 01/20/18 01/20/18 18:59 06:59 18:59 Intake Total 1000 / 1000 1000 / 1000 Output Total 700 / 700 Balance 300 / 300 1000 / 1000 Weight 74.2 kg Intake: IV 1000 / 1000 1000 / 1000 D5W Inj 1,000 ML @ 84 mls/hr IV 1000 / 1000 1000 / 1000 .CONT .[id number] [facility] Rx#:[id number] Oral 0 / 0 Output: Urine 700 / 700 Other: # Voids 1 # Incontinent Voids 4 # Incontinent Bowel Movements 0 Narrative: GENERAL: Well-nourished, well-developed, in NAD. SKIN: Warm and dry. No rash. HEENT: Normocephalic. Atraumatic. Pupils equal and round. Mucous membranes pink and moist. NECK: Supple. Trachea midline. CARDIOVASCULAR: Regular rate and rhythm. No murmur appreciated. RESPIRATORY: No accessory muscle use. Clear to auscultation. Breath sounds equal bilaterally. GASTROINTESTINAL: Abdomen soft, non-tender, nondistended. Normoactive bowel sounds x4. G-tube at mid abdomen, no surrounding erythema/edema. MUSCULOSKELETAL: RLE with ulcer on upper sole, mildly odorous. NEUROLOGICAL: Awake and alert. No obvious cranial nerve deficits. Left sided hemiparesis with LUE contracture. Nonverbal but follows simple commands. Moves RUE. Results - Labs CBC & Chem 7: 01/20/18 06:08 01/19/18 06:47 Laboratory Results - last 24 hr 01/19/18 01/19/18 01/19/18 12:14 16:39 19:53 WBC RBC Hgb Hct MCV MCH MCHC RDW Plt Count MPV POC Glucose 128 H 127 H 142 H 01/20/18 01/20/18 01/20/18 03:07 06:08 07:20 WBC 4.0 RBC 2.67 L Hgb 8.1 L Hct 23.6 L MCV 88.3 MCH 30.3 MCHC 34.3 RDW 14.1 Plt Count 209 MPV 8.8 POC Glucose 111 H 145 H Assessment and Plan - Plan 47-year-old male with a hx of DM, HTN, HLD, chronic anemia, chronic pain, left hemiparesis secondary to right-sided CVA, CHF, dysphagia with feeding tube placement, psychiatric disorder, depression presents with abnormal outpatient labs showing Hgb 7.0. He was recently discharged from the hospital on 12/23/17 where he was treated for respiratory failure requiring intubation, pneumonia with ESBL blood culture positive gram-negative cocci treated with vancomycin and ertapenem and new onset seizures. The patient has a history of acute on chronic anemia, last hospitalized on 12/24/17 for Hgb of 7.0. Acute on Chronic Anemia: Hgb 7.7 upon arrival. -Iron studies from 12/24 show iron deficiency anemia -Concern for GIB; Hemoccult positive in the ED -Monitor H&H, stable at 7.8 -Continue on IV Protonix -Gastroenterology consulted. Will need outpt followup and vide capsule endoscopy. -S/p EGD 01/16 - normal esophagus, 3cm hiatal hernia, G-tube in the gastric body; normal duodenum -colonoscopy with severe diverticulosis -Repeat labs in am. Stable. History of CVA with left-sided hemiparesis and aphasia: chronic. Patient is nonverbal. -Physical therapy consulted, plan to return to rehab -resume tube feed diet -will d/c back to SNF when cleared by GI. Diabetes mellitus: chronic -Holding home Levemir for now -Monitor Accu-checks and cover with SSI Hypertension/hyperlipidemia: chronic. BP fairly well controlled. -Continue home medications -Monitor BP, adjust antihypertensives as needed Seizure disorder: chronic -Continue patient's Keppra Psychiatric disorder/depression: chronic -Continue home medications Foot ulcers/ buttocks wound Noted by nursing. Wound on right foot is odorous. - wound nurse consult pending. - wound culture. - start Keflex 01/20. DVT Prophylaxis: teds/SCDs; avoid chemoprophylaxis with upcoming procedure Discharge Planning: Awaiting wound care nurse sofya
[2018-01-21] MEDS: Insulin NovoLOG Aspart Correctional Sugar Inj SQ SCH ×5 (03:22→20:41)
[2018-01-21] MEDS: Dextrose 5% in Water Inj 1,000 ML IV.CONT SCH ×3 (03:22→11:57)
[2018-01-21] MEDS: Pantoprazole Inj 40 MG Vial IV.PUSH SCH ×2 (08:05→21:19)
[2018-01-21] MEDS: levETIRAcetam 500 MG Tablet PO SCH ×3 (08:06→17:26)
[2018-01-21] MEDS: Carvedilol 12.5 MG Tablet PO SCH ×2 (08:06→21:19)
[2018-01-21] MEDS: Escitalopram 10 MG Tablet NG/OG SCH (08:06)
[2018-01-21 10:48] LABS: Hematocrit 21.9 % (39.0-51.0); Hemoglobin 7.3 gm/dL (13.0-17.0); Mean Corpuscular HGB Conc 33.3 % (32.0-36.0); Mean Corpuscular Hemoglobin 29.7 pg (27.0-34.0); Mean Corpuscular Volume 89.2 fL (80.0-100.0); Mean Platelet Volume 8.8 fL (7.0-11.0); Platelet Count 208 th/mm3 (150-450); Red Blood Count 2.45 mil/mm3 (4.50-5.90); Red Cell Distribution Width 14.3 % (11.6-17.2); White Blood Count 4.3 th/mm3 (4.0-11.0)
--- NOTE | 2018-01-21 14:14 | P.PNIM ---
Subjective Interval history: The patient appeared comfortable. He seemed to indicate that he would not want a blood transfusion if it came to that. He denied any pain. Discussed with nursing. Physical Exam Vital signs: Vital Signs 01/20/18 16:00 01/20/18 19:58 01/20/18 20:37 Temperature 98.2 F 97.8 F Pulse Rate 87 93 H 94 H Respiratory Rate 20 18 Blood Pressure 132/71 134/83 Pulse Oximetry 96 97 01/20/18 23:13 01/20/18 23:56 01/21/18 03:09 Temperature 97.9 F 98.1 F Pulse Rate 92 H 90 93 H Respiratory Rate 18 18 Blood Pressure 135/68 143/74 H Pulse Oximetry 98 97 01/21/18 04:00 01/21/18 05:48 01/21/18 07:16 Temperature Pulse Rate 90 87 Respiratory Rate 18 Blood Pressure Pulse Oximetry 01/21/18 08:00 01/21/18 12:00 Temperature 97.8 F 98.4 F Pulse Rate 90 87 Respiratory Rate 20 20 Blood Pressure 144/68 H 144/84 H Pulse Oximetry 99 98 Intake & Output 01/20/18 01/21/18 01/21/18 18:59 06:59 18:59 Intake Total 1000 / 1000 2121 / 2121 1000 / 1000 Output Total 850 / 850 Balance 1000 / 1000 1271 / 1271 1000 / 1000 Weight 74.2 kg Intake: IV 1000 / 1000 1000 / 1000 1000 / 1000 D5W Inj 1,000 ML @ 84 mls/hr IV 1000 / 1000 1000 / 1000 1000 / 1000 .CONT .[id number] [facility] Rx#:[id number] Oral 1121 / 1121 Output: Urine 850 / 850 Other: # Incontinent Voids 4 Date of Last Bowel Movement 01/20/18 01/20/18 01/21/18 # Incontinent Bowel Movements 0 Narrative: GENERAL: Well-nourished, well-developed, in NAD. SKIN: Warm and dry. No rash. HEENT: Normocephalic. Atraumatic. Pupils equal and round. Mucous membranes pink and moist. NECK: Supple. Trachea midline. CARDIOVASCULAR: Regular rate and rhythm. No murmur appreciated. RESPIRATORY: No accessory muscle use. Clear to auscultation. Breath sounds equal bilaterally. GASTROINTESTINAL: Abdomen soft, non-tender, nondistended. Normoactive bowel sounds x4. G-tube at mid abdomen, no surrounding erythema/edema. MUSCULOSKELETAL: Feet are bandaged. NEUROLOGICAL: Awake and alert. No obvious cranial nerve deficits. Left sided hemiparesis with LUE contracture. Nonverbal but follows simple commands. Moves RUE. Results - Labs CBC & Chem 7: 01/21/18 08:17 01/19/18 06:47 Laboratory Results - last 24 hr 01/20/18 01/20/18 01/21/18 17:12 21:47 07:53 WBC RBC Hgb Hct MCV MCH MCHC RDW Plt Count MPV POC Glucose 126 H 132 H 149 H 01/21/18 01/21/18 08:17 11:53 WBC 4.3 RBC 2.45 L Hgb 7.3 L Hct 21.9 L MCV 89.2 MCH 29.7 MCHC 33.3 RDW 14.3 Plt Count 208 MPV 8.8 POC Glucose 131 H Microbiology 01/20/18 17:30 Wound - Foot Gram Stain - Final Assessment and Plan - Plan 47-year-old male with a hx of DM, HTN, HLD, chronic anemia, chronic pain, left hemiparesis secondary to right-sided CVA, CHF, dysphagia with feeding tube placement, psychiatric disorder, depression presents with abnormal outpatient labs showing Hgb 7.0. He was recently discharged from the hospital on 12/23/17 where he was treated for respiratory failure requiring intubation, pneumonia with ESBL blood culture positive gram-negative cocci treated with vancomycin and ertapenem and new onset seizures. The patient has a history of acute on chronic anemia, last hospitalized on 12/24/17 for Hgb of 7.0. Acute on Chronic Anemia: Hgb 7.7 upon arrival. -Iron studies from 12/24 show iron deficiency anemia -Concern for GIB; Hemoccult positive in the ED -Monitor H&H, stable at 7.8 -Continue on IV Protonix -Gastroenterology consulted. Will need outpt followup and vide capsule endoscopy. -S/p EGD 01/16 - normal esophagus, 3cm hiatal hernia, G-tube in the gastric body; normal duodenum -colonoscopy with severe diverticulosis -Hemoglobin has decreased. Repeat labs in am and transfuse if indicated. Reconsult GI if needed. History of CVA with left-sided hemiparesis and aphasia: chronic. Patient is nonverbal. -Physical therapy consulted, plan to return to rehab -resume tube feed diet -will d/c back to SNF when ready. Diabetes mellitus: chronic -Holding home Levemir for now -Monitor Accu-checks and cover with SSI Hypertension/hyperlipidemia: chronic. BP fairly well controlled. -Continue home medications -Monitor BP, adjust antihypertensives as needed Seizure disorder: chronic -Continue patient's Keppra Psychiatric disorder/depression: chronic -Continue home medications Foot ulcers/ buttocks wound Noted by nursing. Wound on right foot is odorous. - wound nurse consulted. - wound culture pending. - started Keflex 01/20. DVT Prophylaxis: teds/SCDs; avoid chemoprophylaxis with upcoming procedure Discharge Planning: Awaiting wound care nurse sofya
--- NOTE | 2018-01-21 15:25 | P.PNWCN ---
Wound Care Nurse Consult Description: Received wound care consult for wound management of foot ulcers and sore on buttocks Communicated with: RN and Doctor Recommendation: 1.Please cleanse wounds to bilateral feet with normal saline or wound cleanser and pat dry. 2. Apply Maxorb AG just over open wound beds, avoiding intact skin and cover with gauze pads, secured with rolled gauze and tape Change dressings every 3 to 5 days or as needed if saturated or dislodged. 3. Please cleanse wound to L posterior thigh with normal saline or wound cleanser and cover with tegaderm and leave in place for 7 days and change PRN if saturated or dislodged. 4. Apply Calazime skin protectant paste to gluteal gleft and bilateral inner buttock area BID and PRN covering partial thickness skin loss. 5. Please reposition and turn patient every two hours for offloading of pressure from emily prominences. 6. Please consult podiatry for bilateral foot ulcers. Wound/Pressure Injury - Patient Status Premedicated for Pain Prior to Dressing Change: No - Wound Left Foot Wound Assessment: Ongoing Wound Type: Traumatic Wound Is This a Chronic Wound: Yes Requested from Provider a Wound Care Consult: Yes (Wound care saw patient today) Length: 1.3 (~1.3cm) Width: 1 (~1cm) Depth: 0.1 (~0.1cm) Wound Bed Appearance: Red, Yellow Wound Bed Appearance: 80% red non-granulation tissue and ~20% yellow tissue Surrounding Tissue Temperature: Warm Drainage Description: Serosanguinous Drainage Amount: Scant Drainage Odor: No Odor Dressing Status: Changed Cleansing Solution: Saline Primary Dressing: Maxorb II Cover Dressing: gauze pads, rolled gauze and tape Tape Type: Transparent Wound Dressing Change Date: 01/21/18 Wound Margin Description: Well defined and open Right Foot Wound Assessment: Ongoing Wound Type: Traumatic Wound Is This a Chronic Wound: Yes Requested from Provider a Wound Care Consult: Yes (Wound care has seen patinet today) Length: 2.2 (cm) Width: 2.3 (cm) Depth: 0 (~+0.1cm above the skin surface) Wound Bed Appearance: Red Wound Bed Appearance: Wound bed presents with ~95% red hypergranulated tissue, and ~5% white tissue. Surrounding Tissue Temperature: Warm Drainage Description: Sanguinous Drainage Amount: Scant Drainage Odor: No Odor Dressing Status: Changed Cleansing Solution: Saline Primary Dressing: Maxorb II Cover Dressing: gauze pads and secured with rolled gauze and tape Tape Type: Transparent Wound Dressing Change Date: 01/21/18 Wound Margin Description: Well defined and closed Left Great Toe Wound Assessment: Ongoing Is This a Chronic Wound: Yes Requested from Provider a Wound Care Consult: Yes (Wound care nurse saw patient todau) Length: 0.6 (cm) Width: 0.6 (cm) Depth: 0.4 (cm) Wound Bed Appearance: [place], White Surrounding Tissue Appearance: [place] Surrounding Tissue Temperature: Warm Drainage Description: Serous Drainage Amount: Scant Drainage Odor: No Odor Dressing Status: Changed Cleansing Solution: Saline Primary Dressing: maxorb II Cover Dressing: gauze pads , rolled gauze and tape Tape Type: Transparent Wound Dressing Change Date: 01/21/18 Left Upper Posterior Thigh Wound Assessment: Ongoing Wound Type: Skin Tear Is This a Chronic Wound: No Requested from Provider a Wound Care Consult: Yes (Wound care saw patient today) Length: 2 (~2cm) Width: 2.5 (~2.5cm) Depth: 0.1 (~0.1cm) Wound Bed Appearance: Red Wound Bed Appearance: !00 % red non granulation tissue Surrounding Tissue Appearance: [place] Surrounding Tissue Temperature: Warm Drainage Description: Sanguinous Drainage Amount: Scant Drainage Odor: No Odor Dressing Status: Changed Cleansing Solution: Saline Primary Dressing: Non-Adherent Gauze Pad Tape Type: Transparent Wound Dressing Change Date: 01/21/18 - Additional Information Patient seen on for evaluation of foot ulcers and sore on buttocks per wound management consult from Doctor Hudson.Removed dressings in place to to bilateral feet to reveal open wounds to R lateral foot, L lateral foot and L medial hallux just below the great toe.Patient is a diabetic and wounds are presents as diabetic foot ulcers.R Foot wound descriptions and measurements are noted above.L lateral foot and L hallux wound descriptions and measurements are also noted above. Patient was then turned with the assistance of student nurse to L side first to assess buttock area. Patient is noted with small partial thickness wound to R buttock that presents as moisture related. Patient was then positioned on L side to reveal skin tear to L posterior thigh. Skin tear is a partial thickness wound and scant sanguinous drainage. All open wounds were cleansed with normals saline and patted dry. Applied maxorb II to wounds on bilateral feet, followed by gauze pads, secured with rolled gauze and tape. R buttock partial thickness wound was left open to air. L posterior upper thigh was skin tear was cleansed with normal saline and patted dry. Applied non adherent dressing in place and secured with transparent tape.
[2018-01-22] MEDS: Dextrose 5% in Water Inj 1,000 ML IV.CONT SCH ×2 (03:32→12:32)
[2018-01-22] MEDS: Insulin NovoLOG Aspart Correctional Sugar Inj SQ SCH ×5 (03:33→22:00)
[2018-01-22 06:20] LABS: Hematocrit 21.5 % (39.0-51.0); Hemoglobin 7.2 gm/dL (13.0-17.0); Mean Corpuscular HGB Conc 33.7 % (32.0-36.0); Mean Corpuscular Hemoglobin 29.8 pg (27.0-34.0); Mean Corpuscular Volume 88.4 fL (80.0-100.0); Mean Platelet Volume 8.6 fL (7.0-11.0); Platelet Count 207 th/mm3 (150-450); Red Blood Count 2.43 mil/mm3 (4.50-5.90); Red Cell Distribution Width 14.5 % (11.6-17.2); White Blood Count 4.4 th/mm3 (4.0-11.0)
[2018-01-22] MEDS ORDERED: Vancomycin Consult Pharmacy 1 EACH OTHER SCH (10:00)
[2018-01-22] MEDS: Pantoprazole Inj 40 MG Vial IV.PUSH SCH ×2 (10:23→20:46)
[2018-01-22] MEDS: Escitalopram 10 MG Tablet NG/OG SCH (10:23)
[2018-01-22] MEDS: levETIRAcetam 500 MG Tablet PO SCH ×3 (10:24→18:35)
[2018-01-22] MEDS: Carvedilol 12.5 MG Tablet PO SCH ×2 (10:24→20:46)
--- NOTE | 2018-01-22 11:35 | P.PNIM ---
Subjective Interval history: The patient was resting in bed comfortably. His friend was at the bedside. The patient asked when he would be going home. He was agreeable with being evaluated by podiatry. He had no acute complaints. Physical Exam Vital signs: Vital Signs 01/21/18 12:00 01/21/18 16:00 01/21/18 19:59 Temperature 98.4 F 99.0 F Pulse Rate 87 92 H 90 Respiratory Rate 20 20 Blood Pressure 144/84 H 141/89 H Pulse Oximetry 98 96 01/21/18 20:00 01/22/18 00:10 01/22/18 01:07 Temperature 98.8 F 98.8 F Pulse Rate 93 H 93 H Respiratory Rate 16 17 18 Blood Pressure 132/75 139/74 Pulse Oximetry 98 98 01/22/18 05:10 01/22/18 07:50 01/22/18 07:51 Temperature 98.5 F Pulse Rate 95 H 90 90 Respiratory Rate 17 Blood Pressure 133/80 Pulse Oximetry 99 01/22/18 08:00 Temperature 99.7 F H Pulse Rate 96 H Respiratory Rate 18 Blood Pressure 158/74 H Pulse Oximetry 94 L Intake & Output 01/21/18 01/22/18 01/22/18 18:59 06:59 18:59 Intake Total 1370 / 1370 1000 / 1000 Output Total 300 / 300 Balance 1070 / 1070 1000 / 1000 Weight 76.6 kg Intake: IV 1000 / 1000 1000 / 1000 D5W Inj 1,000 ML @ 84 mls/hr IV 1000 / 1000 1000 / 1000 .CONT .[id number] [facility] Rx#:[id number] Oral 0 / 0 Tube Feeding 120 / 120 Water Bolus Amount 250 / 250 Output: Urine 300 / 300 Other: # Voids 2 # Incontinent Voids 3 Date of Last Bowel Movement 01/21/18 01/21/18 # Bowel Movements 0 Narrative: GENERAL: Well-nourished, well-developed, in NAD. SKIN: Warm and dry. No rash. HEENT: Normocephalic. Atraumatic. Pupils equal and round. Mucous membranes pink and moist. NECK: Supple. Trachea midline. CARDIOVASCULAR: Regular rate and rhythm. No murmur appreciated. RESPIRATORY: No accessory muscle use. Clear to auscultation. Breath sounds equal bilaterally. GASTROINTESTINAL: Abdomen soft, non-tender, nondistended. Normoactive bowel sounds x4. G-tube at mid abdomen, no surrounding erythema/edema. MUSCULOSKELETAL: Feet are bandaged. NEUROLOGICAL: Awake and alert. No obvious cranial nerve deficits. Left sided hemiparesis with LUE contracture. Has been conversing. Moves RUE. Results - Labs CBC & Chem 7: 01/22/18 05:16 01/19/18 06:47 Laboratory Results - last 24 hr 01/21/18 01/21/18 01/22/18 11:53 17:21 05:16 WBC 4.4 RBC 2.43 L Hgb 7.2 L Hct 21.5 L MCV 88.4 MCH 29.8 MCHC 33.7 RDW 14.5 Plt Count 207 MPV 8.6 POC Glucose 131 H 142 H 01/22/18 08:05 WBC RBC Hgb Hct MCV MCH MCHC RDW Plt Count MPV POC Glucose 136 H Microbiology 01/20/18 17:30 Wound - Foot Gram Stain - Final 01/20/18 17:30 Wound - Foot Wound Culture - Final S. aureus MRSA Assessment and Plan - Plan 47-year-old male with a hx of DM, HTN, HLD, chronic anemia, chronic pain, left hemiparesis secondary to right-sided CVA, CHF, dysphagia with feeding tube placement, psychiatric disorder, depression presents with abnormal outpatient labs showing Hgb 7.0. He was recently discharged from the hospital on 12/23/17 where he was treated for respiratory failure requiring intubation, pneumonia with ESBL blood culture positive gram-negative cocci treated with vancomycin and ertapenem and new onset seizures. The patient has a history of acute on chronic anemia, last hospitalized on 12/24/17 for Hgb of 7.0. Acute on Chronic Anemia: Hgb 7.7 upon arrival. -Iron studies from 12/24 show iron deficiency anemia -Concern for GIB; Hemoccult positive in the ED -Monitor H&H, stable at 7.8 -Continue on IV Protonix -Gastroenterology consulted. Will need outpt followup and vide capsule endoscopy. -S/p EGD 01/16 - normal esophagus, 3cm hiatal hernia, G-tube in the gastric body; normal duodenum -colonoscopy with severe diverticulosis -Hemoglobin has decreased. Repeat labs in am and transfuse if indicated. Reconsult GI if needed. Stable 01/22/2018. Foot ulcers/ buttocks wound Noted by nursing. Wound on right foot is odorous. Wound care nurse consult appreciated. Wound culture growing MRSA. -Podiatry consult per wound nurse recommendation. -Start IV vancomycin 01/22. History of CVA with left-sided hemiparesis and aphasia: chronic. Patient is nonverbal. -Physical therapy consulted, plan to return to rehab -resume tube feed diet -will d/c back to SNF when ready. Diabetes mellitus: chronic -Holding home Levemir for now -Monitor Accu-checks and cover with SSI Hypertension/hyperlipidemia: chronic. BP fairly well controlled. -Continue home medications -Monitor BP, adjust antihypertensives as needed Seizure disorder: chronic -Continue patient's Keppra Psychiatric disorder/depression: chronic -Continue home medications DVT Prophylaxis: teds/SCDs; avoid chemoprophylaxis with upcoming procedure Discharge Planning: Awaiting wound care nurse sofya
[2018-01-22] MEDS ORDERED: Vancomycin Inj 1,250 MG in Sodium Chlor 0.9% Inj 250 ML IV.SIG ONE (13:00)
--- NOTE | 2018-01-22 17:02 | MB ---
cc: Gagan Morrison DPMGagan Diallo DPM DATE: 01/22/2018 REASON FOR CONSULTATION: Bilateral foot wounds. HISTORY OF PRESENT ILLNESS: This is a 47-year-old male, poor historian. The history is taken from the chart. The patient has a history of hemiparesis and right-sided CVA. Apparently, he was admitted for anemia and GI issues. The patient was evaluated by the wound care team and there was noted to be ulcerations of his feet. I do not think the patient has walked in quite a while. He appears to be a contracted left side, worse than the right. The patient is alert to person; however, he is not making much sense. He does not respond to my questions regarding his extremities. PAST MEDICAL HISTORY: Gastrotomy, anemia, CVA, depression, diabetes, hyperlipidemia, hemiparesis, hemiplegia, hypertension, chronic foot ulcers. ALLERGIES: NONE LISTED. INPATIENT MEDICATIONS: 1. Atorvastatin. 2. Carvedilol. 3. Dextrose 4. Lexapro 5. Glucagon. 6. Hydralazine. 7. Insulin. 8. Keppra. 9. Protonix. 10. Vancomycin 11. Vibramycin. PHYSICAL EXAMINATION: VITAL SIGNS: Temperature 99.2, pulse rate 93, respiratory rate 19, blood pressure 150/78 patient is saturating 98% on room air. This is an alert. likely oriented male, however, unsure. The patient has a contracture of his left lower extremity, mild contracture of his right lower extremity at the level of the knee. Right foot there appears to be partial-thickness ulceration at the level of the right fifth metatarsal. There is hypergranular tissue. Minimal serous drainage. No obvious exposed bone. The foot appears to be warm. Left lower extremity is examined. There is a medial first MPJ wound that appears to be minimal 6 mm, 6 mm 4 mm, questionable probing to joint capsule. There is also a plantar lateral foot wound that has mixed fibroglandular base with drainage, approximately 2 x 3 cm. Bilateral pedal pulses are palpable. Sensation appears to be intact to deep pressure. Chronic hammertoe contractures are noted. Previously amputated left fifth digit is noted. LABORATORY DATA: White blood cell 4.3, hemoglobin and hematocrit 7 and 21, platelet count is 207. Coagulation profile: PT is 12, INR 1.2. Chem-7: Glucose 144. 01/20/2018 wound culture appears to be showing MRSA. IMAGING STUDIES: X-rays ordered and pending. ASSESSMENT AND PLAN: Right and left foot ulcer at different stages, likely partial thickness, borderline full thickness. X-rays were ordered to rule out any bony process. I agree with wound care assessment. The patient's vascular status appeared to be intact. I do not think that it will be a challenge offloading the patient to due to contracture. Offloading boots will be ordered in attempt to help with the pressure points. I will advise pending x-rays. Otherwise, we will continue wound care at this time. No indication at this point for a bone biopsy or surgical intervention. Thank you for this consultation. TROY Fischer/ , 04:41 PM , 05:01 PM CAL
--- NOTE | 2018-01-22 19:48 | XR ---
EXAM DATE: 01/22/2018 6:58 PM EDT AGE/SEX: 47 years / Male INDICATIONS: Left foot pain. CLINICAL DATA: This is the patient's subsequent encounter. Patient reports that signs and symptoms h ave been present for > 1 year and indicates a pain score of 10/10. MEDICAL/SURGICAL HISTORY: Hypertension. MRSA, Anemia, Hemiparesis, CVA, Hiatal Hernia. . Debri shakira left foot 11/28/17. COMPAR[place]: [facility] [place]2VWS[place] 12/02/2017. [facility] [place] RIGHT 2V, 01/22/2018. . FINDINGS: A single lateral view of the left foot is performed. There is diffuse osteopenia. Vascular calcificat ion is seen about the midfoot and forefoot. There is prominent extension deformity of the phalanges o f the fifth digit. Medical tarsal bones are superimposed on each other and the metatarsal bones canno t be evaluated on this image. No radiopaque foreign bodies seen. CONCLUSION: Limited single view (lateral) examination. Diffuse osteopenia. Hyperflexion deformity of the fifth di git phalanges. Electronically signed by: Moris Paige MD 01/22/2018 7:47 PM EDT
--- NOTE | 2018-01-22 19:51 | XR ---
EXAM DATE: 01/22/2018 7:02 PM EDT AGE/SEX: 47 years / Male INDICATIONS: Right foot pain. CLINICAL DATA: This is the patient's subsequent encounter. Patient reports that signs and symptoms h ave been present for > 1 year and indicates a pain score of 10/10. MEDICAL/SURGICAL HISTORY: Hypertension. MRSA, Anemia, Hemiparesis, CVA, Hiatal Hernia. . Debri shakira left foot 11/28/17, COMPARISON: [facility] – [place], FOOT RIGHT LIMITED (2VWS), 12/02/2017. . FINDINGS: Abnormal appearance to the fifth metatarsal bone with evidence of permeative lytic destruction of the metatarsal head and irregular margin periosteal reaction/thickening about the medial mid shaft of th e fifth metatarsus. There is deformity of the MTP joint with evidence of subluxation and hyperflexion deformity. Multiple bony fragments are seen in the soft tissues lateral to the distal fifth metatars al head. The first through fourth digits are grossly intact. Prominent vascular calcifications. No gr oss abnormality seen about the midfoot. CONCLUSION: Abnormal appearance to the mid and distal fifth metatarsus with periosteal reaction, permeative destr uction of the head, bony fragments in the soft tissues lateral to the metatarsal head and hyperflexio n deformity of the MTP joint. The findings are characteristic of chronic osteomyelitis. Electronically signed by: Moris Paige MD 01/22/2018 7:50 PM EDT
[2018-01-23] MEDS: Dextrose 5% in Water Inj 1,000 ML IV.CONT SCH ×2 (02:00→18:02)
[2018-01-23] MEDS: Insulin NovoLOG Aspart Correctional Sugar Inj SQ SCH ×3 (08:01→23:40)
[2018-01-23 10:47] LABS: Baso % (Auto) 0.4 % (0.0-2.0); Eos # (Auto) 0.2 th/mm3 (0.0-0.4); Eos % (Auto) 4.7 % (0.0-4.0); Hematocrit 22.7 % (39.0-51.0); Hemoglobin 7.5 gm/dL (13.0-17.0); Lymph % (Auto) 24.1 % (9.0-44.0); Mean Corpuscular HGB Conc 33.2 % (32.0-36.0); Mean Corpuscular Hemoglobin 29.6 pg (27.0-34.0); Mean Corpuscular Volume 89.2 fL (80.0-100.0); Mean Platelet Volume 8.4 fL (7.0-11.0); Mono # (Auto) 0.3 th/mm3 (0.0-0.9); Mono % (Auto) 7.5 % (0.0-8.0); Neut # (Auto) 2.5 th/mm3 (1.8-7.7); Neut % (Auto) 63.3 % (16.0-70.0); Platelet Count 206 th/mm3 (150-450); Red Blood Count 2.55 mil/mm3 (4.50-5.90); Red Cell Distribution Width 14.1 % (11.6-17.2)
[2018-01-23] MEDS: Escitalopram 10 MG Tablet NG/OG SCH (11:25)
[2018-01-23] MEDS: Carvedilol 12.5 MG Tablet PO SCH ×2 (11:26→23:40)
[2018-01-23] MEDS: levETIRAcetam 500 MG Tablet PO SCH ×3 (11:26→18:04)
[2018-01-23] MEDS: Pantoprazole Inj 40 MG Vial IV.PUSH SCH ×2 (11:26→23:38)
[2018-01-23] MEDS ORDERED: Pharmacy Ordered Lab Info OTHER ONE (12:45)
--- NOTE | 2018-01-23 14:30 | P.PNIM ---
Subjective Interval history: The patient was resting in bed. He said that he was okay with antibiotics but did not seem to be interested in having an MRI done if needed. No acute complaints. Discussed with nursing. Physical Exam Vital signs: Vital Signs 01/22/18 16:00 01/22/18 20:00 01/23/18 00:00 Temperature 98.6 F 98.5 F 99.1 F Pulse Rate 88 94 H 88 Respiratory Rate 18 16 16 Blood Pressure 130/66 140/76 138/73 Pulse Oximetry 95 94 L 97 01/23/18 04:15 01/23/18 08:00 01/23/18 12:00 Temperature 98.9 F 98.1 F 97.6 F Pulse Rate 87 87 84 Respiratory Rate 16 17 Blood Pressure 158/79 H 135/90 161/82 H Pulse Oximetry 95 97 Intake & Output 01/22/18 01/23/18 01/23/18 18:59 06:59 18:59 Intake Total 1262.5 / 1262.5 0 / 0 1210 / 1210 Balance 1262.5 / 1262.5 0 / 0 1210 / 1210 Weight 76.7 kg Intake: IV 1262.5 / 1262.5 D5W Inj 1,000 ML @ 84 mls/hr IV 1000 / 1000 .CONT .[id number] [facility] Rx#:[id number] Vancomycin Inj 1,250 MG In NS 262.5 / 262.5 Inj 250 ML @ 250 mls/hr IV.SIG ONCE ONE Rx#:[id number] Oral 0 / 0 Tube Feeding 1210 / 1210 Other: # Voids 3 # Incontinent Voids 3 Date of Last Bowel Movement 01/22/18 01/22/18 # Bowel Movements 2 # Incontinent Bowel Movements 1 Narrative: GENERAL: Well-nourished, well-developed, in NAD. SKIN: Warm and dry. No rash. HEENT: Normocephalic. Atraumatic. Pupils equal and round. Mucous membranes pink and moist. NECK: Supple. Trachea midline. CARDIOVASCULAR: Regular rate and rhythm. No murmur appreciated. RESPIRATORY: No accessory muscle use. Clear to auscultation. Breath sounds equal bilaterally. GASTROINTESTINAL: Abdomen soft, non-tender, nondistended. Normoactive bowel sounds x4. G-tube at mid abdomen, no surrounding erythema/edema. MUSCULOSKELETAL: Feet are bandaged. NEUROLOGICAL: Awake and alert. No obvious cranial nerve deficits. Left sided hemiparesis with LUE contracture. Has been conversing. Moves RUE. Results - Labs CBC & Chem 7: 01/23/18 10:03 01/19/18 06:47 Laboratory Results - last 24 hr 01/22/18 01/22/18 01/23/18 16:37 22:41 09:26 WBC RBC Hgb Hct MCV MCH MCHC RDW Plt Count MPV Neut % (Auto) Lymph % (Auto) [place] % (Auto) Eos % (Auto) Baso % (Auto) Neut # (Auto) Lymph # (Auto) [place] # (Auto) Eos # (Auto) Baso # (Auto) WBC Differential Differential Comment POC Glucose 144 H 119 H 165 H 01/23/18 01/23/18 10:03 12:55 WBC 4.0 RBC 2.55 L Hgb 7.5 L Hct 22.7 L MCV 89.2 MCH 29.6 MCHC 33.2 RDW 14.1 Plt Count 206 MPV 8.4 Neut % (Auto) 63.3 Lymph % (Auto) 24.1 [place] % (Auto) 7.5 Eos % (Auto) 4.7 H Baso % (Auto) 0.4 Neut # (Auto) 2.5 Lymph # (Auto) 1.0 [place] # (Auto) 0.3 Eos # (Auto) 0.2 Baso # (Auto) 0.0 WBC Differential . Differential Comment Auto diff final POC Glucose 195 H Microbiology 01/20/18 17:30 Wound - Foot Gram Stain - Final 01/20/18 17:30 Wound - Foot Wound Culture - Final S. aureus MRSA - Imaging Impressions Foot X-Ray 01/22/18 00:00 CONCLUSION: Abnormal appearance to the mid and distal fifth metatarsus with periosteal reaction, permeative destruction of the head, bony fragments in the soft tissues lateral to the metatarsal head and hyperflexion deformity of the MTP joint. The findings are characteristic of chronic osteomyelitis. Foot X-Ray 01/22/18 00:00 CONCLUSION: Limited single view (lateral) examination. Diffuse osteopenia. Hyperflexion deformity of the fifth digit phalanges. Assessment and Plan - Plan 47-year-old male with a hx of DM, HTN, HLD, chronic anemia, chronic pain, left hemiparesis secondary to right-sided CVA, CHF, dysphagia with feeding tube placement, psychiatric disorder, depression presents with abnormal outpatient labs showing Hgb 7.0. He was recently discharged from the hospital on 12/23/17 where he was treated for respiratory failure requiring intubation, pneumonia with ESBL blood culture positive gram-negative cocci treated with vancomycin and ertapenem and new onset seizures. The patient has a history of acute on chronic anemia, last hospitalized on 12/24/17 for Hgb of 7.0. Acute on Chronic Anemia: Hgb 7.7 upon arrival. -Iron studies from 12/24 show iron deficiency anemia -Concern for GIB; Hemoccult positive in the ED -Monitor H&H, stable at 7.8 -Continue on IV Protonix -Gastroenterology consulted. Will need outpt followup and vide capsule endoscopy. -S/p EGD 01/16 - normal esophagus, 3cm hiatal hernia, G-tube in the gastric body; normal duodenum -colonoscopy with severe diverticulosis -Hemoglobin has decreased but stable at this time. Continue to monitor CBC and reconsult GI as needed. Foot ulcers/ OM Noted by nursing. Wound on right foot is odorous. Wound care nurse consult appreciated. Wound culture growing MRSA. Podiatry consult appreciated. Imaging suggestive of chronic OM. -Podiatry following. -Started IV vancomycin 01/22. -ID consult pending. History of CVA with left-sided hemiparesis and aphasia: chronic. Patient is nonverbal. -Physical therapy consulted, plan to return to rehab -resume tube feed diet -will d/c back to SNF when ready. Diabetes mellitus: chronic -Holding home Levemir for now -Monitor Accu-checks and cover with SSI Hypertension/hyperlipidemia: chronic. BP fairly well controlled. -Continue home medications -Monitor BP, adjust antihypertensives as needed Seizure disorder: chronic -Continue patient's Keppra Psychiatric disorder/depression: chronic -Continue home medications DVT Prophylaxis: teds/SCDs; avoid chemoprophylaxis with upcoming procedure Discharge Planning: Awaiting wound care nurse sofya
[2018-01-23] MEDS ORDERED: Vancomycin Inj 2,000 MG in Sodium Chlor 0.9% Inj 500 ML IV.SIG ONE (18:00)
--- NOTE | 2018-01-23 20:17 | P.CONID ---
History of Present Illness Service: ID Consult date: 01/23/18 Requesting Physician: Garland Hudson Reason for Consult: osteo R foot Primary Care Provider: UNKNOWN Family Provider: [facility] Oceanologist Complaint: abnormal lab values History of Present Illness: 47 yo male unable to provide history 2/2 severe nerological deficits from pevious stroke History obtained from the chartP atient has a history of hemiparesis and right-sided CVA. Apparently, he was admitted for anemia and GI issues. He has contracted left side, worse than the right. Minimal interaction, pt is bedridden and contracted. it appears he has b/l feet ulcers. He has a ah/o diabetes His plain radiographs showed chronic osteo on the Rt foot CUltures grew MRSA Pt is on vancomycin Review of Systems unobtainable due to mental condition PMFSH - History History Provided By: Patient, Medical Record - Medical History Medical History: Medical History (Last Reviewed 03/24/18 @ 11:35 by Cris Paul MD) Gastrostomy tube in place (Acute) Anemia CVA (cerebral vascular accident) Depression Diabetes HLD (hyperlipidemia) Hemiparesis Hemiplegia Hypertension - Family History Family History: Family History (Last Reviewed 01/23/18 @ 20:04 by Cris Paul MD) Other Unknown family medical history - Social History I have reviewed the patient's Social History: Yes - Tobacco History Second Hand Smoke Exposure: No Tobacco Use In Past 30 Days: No Smoking Status: Never smoker Tobacco Type: Cigarettes - Alcohol History How Often Do You Have a Drink Containing Alcohol: Never - Substance Use History Substance History: No History of Abuse - Travel History Recent Travel in the [place] Within the Last 8 Weeks: No Recent Travel Out of the Country Within the Last 8 Weeks: No - Immunization History Tetanus Immunization: Unsure Hx Influenza Vaccine This Season: Unable to Assess Medications and Allergies Active Medications: Active Medications Atorvastatin Calcium (Lipitor) 10 mg PO HS [facility] Last Admin: 01/22/18 20:47 Dose: 10 mg Carvedilol (Coreg) 25 mg PO BID [facility] Last Admin: 01/23/18 11:26 Dose: 25 mg Dextrose (D50w Vial) 50 ml IV.PUSH UNSCH PRN PRN Reason: PER HYPOGLYCEMIA PROTOCOL Escitalopram Oxalate (Lexapro) 15 mg NG/OG DAILY [facility] Last Admin: 01/23/18 11:25 Dose: 15 mg Glucagon (Glucagon Inj) 1 mg OTHER PRN PRN PRN Reason: for Hypoglycemia Protocol Hydralazine HCl (Apresoline) 100 mg PO TID [facility] Last Admin: 01/23/18 18:03 Dose: 100 mg Dextrose (D5w Inj) 1,000 mls @ 84 mls/hr IV.CONT .[id number] [facility] Last Admin: 01/23/18 18:02 Dose: 84 mls/hr Pharmacy Profile Note (Vancomycin Consult Pharmacy) 0 mls @ 0 mls/hr OTHER UNSCH [facility] Vancomycin HCl 2,000 mg/ (Sodium Chloride) 520 mls @ 250 mls/hr IV.SIG ONCE ONE Stop: 01/23/18 20:04 Vancomycin HCl 1,000 mg/ (Sodium Chloride) 250 mls @ 250 mls/hr IV.SIG Q8H [facility] Insulin Aspart (Novolog Insulin Suppl Scale Inj) 0 unit SQ ACHS AND 3AM [facility]; Protocol Last Admin: 01/23/18 08:01 Dose: Not Given Levetiracetam (Keppra) 500 mg PO TID [facility] Last Admin: 01/23/18 18:04 Dose: 500 mg Miscellaneous Information ([facility] Ordered Lab Info) 1 each OTHER ONCE ONE Stop: 01/24/18 21:46 Pantoprazole Sodium (Protonix Inj) 40 mg IV.PUSH Q12HR [facility] Last Admin: 01/23/18 11:26 Dose: 40 mg Sodium Chloride (Ns Flush) 2 ml IV.FLUSH BID [facility] Last Admin: 01/23/18 14:54 Dose: Not Given Sodium Chloride (Ns Flush) 2 ml IV.FLUSH PRN PRN PRN Reason: FLUSH AFTER USING IV ACCESS Allergies Allergy/AdvReac Type Severity Reaction Status Date / Time No Known Allergies Allergy Unknown Uncoded 01/06/18 21:04 Home Medications Medication Instructions Recorded Confirmed Type ascorbic acid (vitamin C) [Vitamin 500 mg PO BID 01/15/18 02/17/18 History C] aspirin [Aspir-81] 81 mg FEEDING TUBE DAILY 01/15/18 02/17/18 History atorvastatin 10 mg FEEDING TUBE HS 01/15/18 02/17/18 History carvedilol [Coreg] 25 mg FEEDING TUBE BID 01/15/18 02/17/18 History escitalopram oxalate 15 mg FEEDING TUBE DAILY 01/15/18 02/17/18 History gentamicin 1 applic TOPICAL QID 01/15/18 02/17/18 History hydralazine 100 mg PO TID 01/15/18 02/17/18 History insulin detemir U-100 [Levemir 5 unit SUB-Q BID 01/15/18 02/17/18 History U-100 Insulin] ipratropium-albuterol 3 ml INHALATION Q6-8H PRN 01/15/18 02/17/18 History levetiracetam 500 mg PO TID 01/15/18 02/17/18 History melatonin 3 mg FEEDING TUBE HS 01/15/18 02/17/18 History insulin aspart U-100 [Novolog 1 sliding scale dose SUB-Q UD 02/17/18 02/17/18 History U-100 Insulin aspart] Exam Vital signs: Vital Signs 01/23/18 00:00 01/23/18 04:15 01/23/18 08:00 Temperature 99.1 F 98.9 F 98.1 F Pulse Rate 88 87 87 Respiratory Rate 16 16 17 Blood Pressure 138/73 158/79 H 135/90 Pulse Oximetry 97 95 97 01/23/18 12:00 01/23/18 16:00 Temperature 97.6 F 98 F Pulse Rate 84 83 Respiratory Rate 18 Blood Pressure 161/82 H 156/86 H Pulse Oximetry 91 L Intake & Output 01/23/18 01/23/18 01/24/18 06:59 18:59 06:59 Intake Total 0 / 0 2210 / 2210 Balance 0 / 0 2210 / 2210 Weight 76.7 kg Intake: IV 1000 / 1000 D5W Inj 1,000 ML @ 84 mls/hr IV 1000 / 1000 .CONT .[id number] [facility] Rx#:[id number] Oral 0 / 0 0 / 0 Tube Feeding 1210 / 1210 Other: # Voids 3 # Incontinent Voids 3 Date of Last Bowel Movement 01/22/18 # Bowel Movements 0 # Incontinent Bowel Movements 1 - Constitutional no acute distress, average body habitus - Routine HEENT Exam Head: Present: normocephalic, atraumatic, facial swelling Eye: Present: EOMI, PERRL ENT: Present: mucous membranes moist Comments: poor dentition - Routine Neck Exam Present: supple, full ROM - Routine Respiratory Exam Present: decreased breath sounds, CTA bilaterally - Routine Cardiovascular Exam Present: RRR, S1, S2 Comments: diminshed pulses b/l feet - Routine Abdominal Exam Present: soft, normoactive bowel sounds, ostomy Comments: no organomegally no masses - Routine Extremities Exam Comments: contractures of b/l LE more promientt on the L Right foot with partial-thickness ulceration at the level of the right fifth metatarsal with chronic granulation tissue. + prominent purulent drainage. Left foot with multiple ulcerations - Routine Neurological Exam Present: alert, motor deficit, altered mental status non verbal , contracted, not following commands - Routine Psychiatric Exam Comments: not agitated,calm Results - Labs CBC & Chem 7: 01/25/18 04:49 01/25/18 04:49 Labs: Laboratory Results - last 24 hr 01/22/18 01/23/18 01/23/18 22:41 09:26 10:03 WBC 4.0 RBC 2.55 L Hgb 7.5 L Hct 22.7 L MCV 89.2 MCH 29.6 MCHC 33.2 RDW 14.1 Plt Count 206 MPV 8.4 Neut % (Auto) 63.3 Lymph % (Auto) 24.1 [place] % (Auto) 7.5 Eos % (Auto) 4.7 H Baso % (Auto) 0.4 Neut # (Auto) 2.5 Lymph # (Auto) 1.0 [place] # (Auto) 0.3 Eos # (Auto) 0.2 Baso # (Auto) 0.0 WBC Differential . Differential Comment Auto diff final POC Glucose 119 H 165 H Vancomycin Trough 01/23/18 01/23/18 12:55 16:00 WBC RBC Hgb Hct MCV MCH MCHC RDW Plt Count MPV Neut % (Auto) Lymph % (Auto) [place] % (Auto) Eos % (Auto) Baso % (Auto) Neut # (Auto) Lymph # (Auto) [place] # (Auto) Eos # (Auto) Baso # (Auto) WBC Differential Differential Comment POC Glucose 195 H Vancomycin Trough Less than 0.8 L - Imaging Abdomen X-Ray 01/18/18 00:00 CONCLUSION: Limited by motion otherwise negative Barium Enema w/ Air Contrast, therapeutic 01/19/18 00:00 CONCLUSION: Extremely limited exam secondary to inability to achieve a rectocele as well as the patient's inability to complete the exam. Evaluation of the rectum demonstrated no evidence of mass or filling defect. Foot X-Ray 01/22/18 00:00 CONCLUSION: Abnormal appearance to the mid and distal fifth metatarsus with periosteal reaction, permeative destruction of the head, bony fragments in the soft tissues lateral to the metatarsal head and hyperflexion deformity of the MTP joint. The findings are characteristic of chronic osteomyelitis. Foot X-Ray 01/22/18 00:00 CONCLUSION: Limited single view (lateral) examination. Diffuse osteopenia. Hyperflexion deformity of the fifth digit phalanges. Assessment and Plan - Plan Rt foot 5 th MT chronic osteomyelitis, MRSA DM DFi R t foot, 5th MT cont vancomycin eventually likely will need oral abx Prognosis is not good for cure, as off loading is difficult in the setting of contractures pt was seen by binding printer who recommended conservative mngmnt at this point MOnitor vanco levels to achieve 15-20 trough monitor CBC, creatinine
[2018-01-24] MEDS: Insulin NovoLOG Aspart Correctional Sugar Inj SQ SCH ×5 (03:00→23:11)
[2018-01-24 05:47] LABS: Baso % (Auto) 0.4 % (0.0-2.0); Eos # (Auto) 0.2 th/mm3 (0.0-0.4); Hematocrit 22.5 % (39.0-51.0); Hemoglobin 7.6 gm/dL (13.0-17.0); Lymph # (Auto) 1.1 th/mm3 (1.0-4.8); Lymph % (Auto) 26.2 % (9.0-44.0); Mean Corpuscular HGB Conc 33.6 % (32.0-36.0); Mean Corpuscular Volume 89.4 fL (80.0-100.0); Mean Platelet Volume 8.8 fL (7.0-11.0); Mono # (Auto) 0.3 th/mm3 (0.0-0.9); Mono % (Auto) 7.7 % (0.0-8.0); Neut # (Auto) 2.7 th/mm3 (1.8-7.7); Neut % (Auto) 61.7 % (16.0-70.0); Platelet Count 199 th/mm3 (150-450); Red Blood Count 2.52 mil/mm3 (4.50-5.90); Red Cell Distribution Width 14.6 % (11.6-17.2); White Blood Count 4.3 th/mm3 (4.0-11.0)
[2018-01-24] MEDS: Vancomycin Inj 1,000 MG in Sodium Chlor 0.9% Inj 250 ML IV.SIG SCH ×4 (05:47→23:44)
[2018-01-24] MEDS: Dextrose 5% in Water Inj 1,000 ML IV.CONT SCH ×2 (05:48→12:11)
[2018-01-24 07:57] LABS: Platelet Estimate Normal (Normal); Platelet Morphology Normal (Normal)
[2018-01-24] MEDS: Pantoprazole Inj 40 MG Vial IV.PUSH SCH ×2 (09:39→21:32)
[2018-01-24] MEDS: levETIRAcetam 500 MG Tablet PO SCH ×3 (09:40→18:10)
[2018-01-24] MEDS: Carvedilol 12.5 MG Tablet PO SCH ×2 (09:40→21:24)
[2018-01-24] MEDS: Escitalopram 10 MG Tablet NG/OG SCH (09:40)
[2018-01-24 12:03] VITALS: RESP 18
--- NOTE | 2018-01-24 15:56 | P.PNIM ---
Subjective Interval history: The patient was upset that he was still in the hospital. He denied any pain. He wanted the elevation of his bed adjusted. Discussed with nursing. Physical Exam Vital signs: Vital Signs 01/23/18 16:00 01/23/18 20:00 01/24/18 00:00 Temperature 98 F 97.7 F 98.0 F Pulse Rate 83 85 85 Respiratory Rate 18 18 18 Blood Pressure 156/86 H 143/83 H 161/86 H Pulse Oximetry 91 L 98 98 01/24/18 08:00 01/24/18 12:00 Temperature 98.0 F 98.2 F Pulse Rate 86 95 H Respiratory Rate 17 18 Blood Pressure 142/70 H 140/78 Pulse Oximetry 95 95 Intake & Output 01/23/18 01/24/18 01/24/18 18:59 06:59 18:59 Intake Total 2210 / 2210 1250 / 1250 1000 / 1000 Balance 2210 / 2210 1250 / 1250 1000 / 1000 Weight 76.7 kg Intake: IV 1000 / 1000 1250 / 1250 1000 / 1000 D5W Inj 1,000 ML @ 84 mls/hr IV 1000 / 1000 1000 / 1000 1000 / 1000 .CONT .[id number] [facility] Rx#:[id number] Vancomycin Inj 1,000 MG In NS 250 / 250 Inj 250 ML @ 250 mls/hr IV.SIG Q8H [facility] Rx#:[id number] Oral 0 / 0 Tube Feeding 1210 / 1210 Other: # Voids 3 4 # Bowel Movements 0 1 Narrative: GENERAL: Well-nourished, well-developed, in NAD. SKIN: Warm and dry. No rash. HEENT: Normocephalic. Atraumatic. Pupils equal and round. Mucous membranes pink and moist. NECK: Supple. Trachea midline. CARDIOVASCULAR: Regular rate and rhythm. No murmur appreciated. RESPIRATORY: No accessory muscle use. Clear to auscultation. Breath sounds equal bilaterally. GASTROINTESTINAL: Abdomen soft, non-tender, nondistended. Normoactive bowel sounds x4. G-tube at mid abdomen, no surrounding erythema/edema. MUSCULOSKELETAL: Feet are bandaged. NEUROLOGICAL: Awake and alert. No obvious cranial nerve deficits. Left sided hemiparesis with LUE contracture. Has been conversing. Moves RUE. Results - Labs CBC & Chem 7: 01/24/18 04:40 01/19/18 06:47 Laboratory Results - last 24 hr 01/23/18 01/24/18 01/24/18 16:00 04:40 05:35 WBC 4.3 RBC 2.52 L Hgb 7.6 L Hct 22.5 L MCV 89.4 MCH 30.0 MCHC 33.6 RDW 14.6 Plt Count 199 MPV 8.8 Prelim Diff (Auto) Slide review pending Neut % (Auto) 61.7 Lymph % (Auto) 26.2 [place] % (Auto) 7.7 Eos % (Auto) 4.0 Baso % (Auto) 0.4 Neut # (Auto) 2.7 Lymph # (Auto) 1.1 [place] # (Auto) 0.3 Eos # (Auto) 0.2 Baso # (Auto) 0.0 WBC Differential . Diff Scan Auto diff confirmed Differential Comment . Platelet Estimate Normal Platelet Morphology Normal POC Glucose 111 H Vancomycin Trough Less than 0.8 L 01/24/18 01/24/18 01/24/18 09:38 11:07 15:31 WBC RBC Hgb Hct MCV MCH MCHC RDW Plt Count MPV Prelim Diff (Auto) Neut % (Auto) Lymph % (Auto) [place] % (Auto) Eos % (Auto) Baso % (Auto) Neut # (Auto) Lymph # (Auto) [place] # (Auto) Eos # (Auto) Baso # (Auto) WBC Differential Diff Scan Differential Comment Platelet Estimate Platelet Morphology POC Glucose 200 H 182 H 95 Vancomycin Trough Assessment and Plan - Plan 47-year-old male with a hx of DM, HTN, HLD, chronic anemia, chronic pain, left hemiparesis secondary to right-sided CVA, CHF, dysphagia with feeding tube placement, psychiatric disorder, depression presents with abnormal outpatient labs showing Hgb 7.0. He was recently discharged from the hospital on 12/23/17 where he was treated for respiratory failure requiring intubation, pneumonia with ESBL blood culture positive gram-negative cocci treated with vancomycin and ertapenem and new onset seizures. The patient has a history of acute on chronic anemia, last hospitalized on 12/24/17 for Hgb of 7.0. Acute on Chronic Anemia: Hgb 7.7 upon arrival. -Iron studies from 12/24 show iron deficiency anemia -Concern for GIB; Hemoccult positive in the ED -Continue on IV Protonix -Gastroenterology consulted. Will need outpt followup and vide capsule endoscopy. -S/p EGD 01/16 - normal esophagus, 3cm hiatal hernia, G-tube in the gastric body; normal duodenum -colonoscopy with severe diverticulosis -Hemoglobin has decreased but stable at this time. Continue to monitor CBC and reconsult GI as needed. Foot ulcers/ OM Noted by nursing. Wound on right foot is odorous. Wound care nurse consult appreciated. Wound culture growing MRSA. Podiatry consult appreciated. Imaging suggestive of chronic OM. Podiatry and infectious disease consult appreciated. -Started IV vancomycin 01/22. -follow up with ID and podiatry. History of CVA with left-sided hemiparesis and aphasia: chronic. Patient is nonverbal. -Physical therapy consulted, plan to return to rehab -resume tube feed diet -will d/c back to SNF when ready. Diabetes mellitus: chronic -Holding home Levemir for now -Monitor Accu-checks and cover with SSI Hypertension/hyperlipidemia: chronic. BP fairly well controlled. -Continue home medications -Monitor BP, adjust antihypertensives as needed Seizure disorder: chronic -Continue patient's Keppra Psychiatric disorder/depression: chronic -Continue home medications DVT Prophylaxis: teds/SCDs; avoid chemoprophylaxis with upcoming procedure Discharge Planning: Awaiting wound care nurse sofya
[2018-01-24] MEDS ORDERED: Pharmacy Ordered Lab Info OTHER ONE (21:45)
[2018-01-25] MEDS: Dextrose 5% in Water Inj 1,000 ML IV.CONT SCH ×2 (04:12→12:35)
[2018-01-25] MEDS: Insulin NovoLOG Aspart Correctional Sugar Inj SQ SCH ×4 (04:15→18:28)
[2018-01-25 05:53] LABS: Baso % (Auto) 0.3 % (0.0-2.0); Eos # (Auto) 0.2 th/mm3 (0.0-0.4); Hematocrit 22.3 % (39.0-51.0); Hemoglobin 7.4 gm/dL (13.0-17.0); Lymph # (Auto) 1.1 th/mm3 (1.0-4.8); Lymph % (Auto) 27.4 % (9.0-44.0); Mean Corpuscular HGB Conc 33.4 % (32.0-36.0); Mean Corpuscular Hemoglobin 29.8 pg (27.0-34.0); Mean Corpuscular Volume 89.2 fL (80.0-100.0); Mono # (Auto) 0.3 th/mm3 (0.0-0.9); Mono % (Auto) 7.1 % (0.0-8.0); Neut # (Auto) 2.3 th/mm3 (1.8-7.7); Neut % (Auto) 60.2 % (16.0-70.0); Platelet Count 211 th/mm3 (150-450); Red Blood Count 2.49 mil/mm3 (4.50-5.90); Red Cell Distribution Width 14.5 % (11.6-17.2); White Blood Count 3.9 th/mm3 (4.0-11.0)
[2018-01-25 06:16] LABS: Anion Gap 11 meq/L (5-15); Blood Urea Nitrogen 21 mg/dL (7-18); Calcium 8.8 mg/dL (8.5-10.1); Carbon Dioxide 23.2 meq/L (21.0-32.0); Chloride 103 meq/L (98-107); Glomerular Filtration Rate Greater Than 89 mL/min (>89); Glucose,Random 143 mg/dL (74-106); Potassium 3.6 meq/L (3.5-5.1); Sodium 137 meq/L (136-145)
[2018-01-25 06:18] LABS: Vancomycin,Trough 42.5 mcg/mL (5.0-10.0)
[2018-01-25] MEDS: Vancomycin Inj 1,000 MG in Sodium Chlor 0.9% Inj 250 ML IV.SIG SCH ×2 (07:29→14:49)
[2018-01-25] MEDS: Carvedilol 12.5 MG Tablet PO SCH (08:34)
[2018-01-25] MEDS: levETIRAcetam 500 MG Tablet PO SCH ×3 (08:35→18:10)
[2018-01-25] MEDS: Escitalopram 10 MG Tablet NG/OG SCH (08:35)
[2018-01-25] MEDS: Pantoprazole Inj 40 MG Vial IV.PUSH SCH (08:35)
--- NOTE | 2018-01-25 08:51 | P.PNID ---
Subjective Remarks: no c/o afebrile Antibiotics: vancomycin Allergies/Adverse Reactions: Allergies No Known Allergies Allergy (Unknown, Uncoded 01/06/18 21:04) Objective Vital Signs 01/24/18 09:00 01/24/18 12:00 01/24/18 16:00 Temperature 98.2 F 98.3 F Pulse Rate 84 95 H 84 Respiratory Rate 18 18 Blood Pressure 140/78 133/82 Pulse Oximetry 95 95 01/24/18 20:17 01/24/18 20:22 01/24/18 23:18 Temperature 97.9 F 98.0 F Pulse Rate 93 H 94 H 92 H Respiratory Rate 18 18 Blood Pressure 122/99 H 134/71 Pulse Oximetry 98 98 01/24/18 23:54 01/25/18 03:00 01/25/18 03:36 Temperature 97.9 F Pulse Rate 88 89 88 Respiratory Rate 18 Blood Pressure 140/97 H Pulse Oximetry 97 Intake & Output 01/24/18 01/25/18 01/25/18 18:59 06:59 18:59 Intake Total 2009 1000 / 1000 Balance 2009 1000 / 1000 Weight 76.7 kg Intake: IV 1250 / 1250 1000 / 1000 D5W Inj 1,000 ML @ 84 mls/hr IV 1000 / 1000 1000 / 1000 .CONT .[id number] [facility] Rx#:[id number] Vancomycin Inj 1,000 MG In NS 250 / 250 Inj 250 ML @ 250 mls/hr IV.SIG Q8H [facility] Rx#:[id number] Oral 0 / 0 Tube Feeding 360 / 360 Tube Irrigant 150 / 150 Water Bolus Amount 250 / 250 Other: # Voids 3 4 Date of Last Bowel Movement 01/24/18 # Bowel Movements 1 0 01/20/18 17:30 Wound - Foot Gram Stain - Final 01/20/18 17:30 Wound - Foot Wound Culture - Final S. aureus MRSA Lab - Hematology Results 01/23/18 01/24/18 01/25/18 10:03 04:40 04:49 WBC 4.0 4.3 3.9 L RBC 2.55 L 2.52 L 2.49 L Hgb 7.5 L 7.6 L 7.4 L Hct 22.7 L 22.5 L 22.3 L MCV 89.2 89.4 89.2 MCH 29.6 30.0 29.8 MCHC 33.2 33.6 33.4 RDW 14.1 14.6 14.5 Plt Count 206 199 211 MPV 8.4 8.8 9.0 Prelim Diff (Auto) Slide review pending Neut % (Auto) 63.3 61.7 60.2 Lymph % (Auto) 24.1 26.2 27.4 [place] % (Auto) 7.5 7.7 7.1 Eos % (Auto) 4.7 H 4.0 5.0 H Baso % (Auto) 0.4 0.4 0.3 Neut # (Auto) 2.5 2.7 2.3 Lymph # (Auto) 1.0 1.1 1.1 [place] # (Auto) 0.3 0.3 0.3 Eos # (Auto) 0.2 0.2 0.2 Baso # (Auto) 0.0 0.0 0.0 WBC Differential . . . Diff Scan Auto diff confirmed Differential Comment Auto diff final . Auto diff final Platelet Estimate Normal Platelet Morphology Normal Lab - Chemistry Results 01/23/18 01/23/18 01/24/18 09:26 12:55 05:35 Sodium Potassium Chloride Carbon Dioxide Anion Gap BUN Creatinine Estimated GFR POC Glucose 165 H 195 H 111 H Random Glucose Calcium 01/24/18 01/24/18 01/24/18 09:38 11:07 15:31 Sodium Potassium Chloride Carbon Dioxide Anion Gap BUN Creatinine Estimated GFR POC Glucose 200 H 182 H 95 Random Glucose Calcium 01/24/18 01/25/18 22:52 04:49 Sodium 137 Potassium 3.6 Chloride 103 Carbon Dioxide 23.2 Anion Gap 11 BUN 21 H Creatinine 0.96 Estimated GFR Greater than 89 POC Glucose 169 H Random Glucose 143 H Calcium 8.8 Imaging: ITS Impressions Abdomen X-Ray 01/18/18 00:00 CONCLUSION: Limited by motion otherwise negative Barium Enema w/ Air Contrast, therapeutic 01/19/18 00:00 CONCLUSION: Extremely limited exam secondary to inability to achieve a rectocele as well as the patient's inability to complete the exam. Evaluation of the rectum demonstrated no evidence of mass or filling defect. Foot X-Ray 01/22/18 00:00 CONCLUSION: Abnormal appearance to the mid and distal fifth metatarsus with periosteal reaction, permeative destruction of the head, bony fragments in the soft tissues lateral to the metatarsal head and hyperflexion deformity of the MTP joint. The findings are characteristic of chronic osteomyelitis. Physical Exam: GENERAL: SKIN: Warm and dry. HEAD: Atraumatic. Normocephalic. EYES: Pupils equal and round. No scleral icterus. No injection or drainage. ENT: No nasal bleeding or discharge. Mucous membranes pink and moist. CARDIOVASCULAR: Regular rate and rhythm. Med sternotomy scar RESPIRATORY: No accessory muscle use. Clear to auscultation. Breath sounds equal bilaterally. GASTROINTESTINAL: Abdomen soft, non-tender, nondistended. Hepatic and splenic margins not palpable. MUSCULOSKELETAL: Extremities without clubbing, cyanosis, or edema. b/l feet dressings in place NEUROLOGICAL: Awake and alert.slow difficult to understand speech Stable motor deficits PSYCHIATRIC: calm, cooperative Assessment and Plan - Plan Rt foot 5 th MT chronic osteomyelitis, MRSA DM DFi R t foot, 5th MT cont vancomycin eventually likely will need oral abx Prognosis is not good for cure, as off loading is difficult in the setting of contractures pt was seen by appeals nurse who recommended conservative mngmnt at this point MOnitor vanco levels to achieve 15-20 trough monitor CBC, creatinine will fill out the OPAT form consider MRI to eval extent of osteomyelitis
[2018-01-25] MEDS ORDERED: Potassium Chloride 25 MEQ Effervescent Tablet PO ONE (10:18)
--- NOTE | 2018-01-25 10:40 | P.DS ---
Date of admission: 01/15/18 18:52 Primary care physician: UNKNOWN Anticipated date of discharge: 01/25/18 Brief History from admission: 47-year-old male with a past medical history significant for diabetes mellitus, hypertension, chronic anemia, chronic pain, hemiparesis secondary to right- sided CVA, CHF, dysphagia with feeding tube placement, psychiatric disorder, depression and hyperlipidemia presents to the emergency department for the evaluation abnormal lab results. The patient had a CBC done as an outpatient earlier today and it showed a hemoglobin of 7.0. He was recently discharged from the hospital on 12/23/17 where he was treated for respiratory failure requiring intubation, pneumonia with ESBL blood culture positive gram-negative cocci treated with vancomycin and ertapenem and new onset seizures. The patient has a history of acute on chronic anemia, last hospitalized on 12/24/17 for Hgb of 7.0. The patient does not participate in the exam and will not answer questions. He will open his eyes when asked to and shakes his head yes or no but remains nonverbal. According to previous neurology notes from the patient's prior hospital stay this is baseline for the patient. DS: Diagnosis - Discharge Diagnosis (1) Osteomyelitis Status: Acute (2) Diabetes Status: Acute (3) GI bleed Status: Acute (4) Anemia Status: Acute (5) Gastrostomy tube in place Status: Acute DS: Summary Hospital Course: Acute on Chronic Anemia/ GIB 47-year-old male with a hx of DM, HTN, HLD, chronic anemia, chronic pain, left hemiparesis secondary to right-sided CVA, CHF, dysphagia with feeding tube placement, psychiatric disorder, depression presents with abnormal outpatient labs showing Hgb 7. Hgb 7.7 upon arrival. Hemoccult positive in the ED. He was started on IV Protonix. Gastroenterology was consulted. S/p EGD 01/16 - normal esophagus, 3cm hiatal hernia, G-tube in the gastric body; normal duodenum. Colonoscopy with severe diverticulosis. He will need outpt followup with GI to pursue video capsule endoscopy. He will have a repeat CBC in 3-5 days. He will continue a PPI. Foot ulcers/ OM Wound care nurse was consulted. Wound culture growing MRSA. Podiatry was consulted. Imaging suggestive of chronic OM. Infectious disease was consulted. We started IV vancomycin on 01/22. The pt's vancomycin trough was quite elevated so doses were held on 01/25. He will need his levels followed and will continue IV vancomycin per ID recommendations. He will have a PICC line placed. He will follow up with podiatry as an outpt. He will be referred to infectious disease as well. History of CVA With left-sided hemiparesis and aphasia: chronic. Patient is minimally verbal. Physical therapy was consulted. We resumed his tube feed diet. Diabetes mellitus We held his home Levemir and monitored Accu-checks and covered with SSI. He will resume his home regimen upon discharge. - Time Spent with Patient Total time spent providing and/or coordinating discharge services: Greater than 30 minutes - Quality: VTE Deep Vein Thrombosis/Pulmonary Embolism Present on Admission: No Exam Vital signs: Vital Signs 01/24/18 12:00 01/24/18 16:00 01/24/18 20:17 Temperature 98.2 F 98.3 F Pulse Rate 95 H 84 93 H Respiratory Rate 18 18 Blood Pressure 140/78 133/82 Pulse Oximetry 95 95 01/24/18 20:22 01/24/18 23:18 01/24/18 23:54 Temperature 97.9 F 98.0 F Pulse Rate 94 H 92 H 88 Respiratory Rate 18 18 Blood Pressure 122/99 H 134/71 Pulse Oximetry 98 98 01/25/18 03:00 01/25/18 03:36 01/25/18 08:00 Temperature 97.9 F 98.4 F Pulse Rate 89 88 90 Respiratory Rate 18 18 Blood Pressure 140/97 H 126/71 Pulse Oximetry 97 94 L Intake & Output 01/24/18 01/25/18 01/25/18 18:59 06:59 18:59 Intake Total 2009 1000 / 1000 Balance 2009 1000 / 1000 Weight 76.7 kg Intake: IV 1250 / 1250 1000 / 1000 D5W Inj 1,000 ML @ 84 mls/hr IV 1000 / 1000 1000 / 1000 .CONT .[id number] KRISTIE Rx#:[id number] Vancomycin Inj 1,000 MG In NS 250 / 250 Inj 250 ML @ 250 mls/hr IV.SIG Q8H KRISTIE Rx#:[id number] Oral 0 / 0 Tube Feeding 360 / 360 Tube Irrigant 150 / 150 Water Bolus Amount 250 / 250 Other: # Voids 3 4 Date of Last Bowel Movement 01/24/18 # Bowel Movements 1 0 Narrative: GENERAL: Well-nourished, well-developed, in NAD. SKIN: Warm and dry. No rash. HEENT: Normocephalic. Atraumatic. Pupils equal and round. Mucous membranes pink and moist. NECK: Supple. Trachea midline. CARDIOVASCULAR: Regular rate and rhythm. No murmur appreciated. RESPIRATORY: No accessory muscle use. Clear to auscultation. Breath sounds equal bilaterally. GASTROINTESTINAL: Abdomen soft, non-tender, nondistended. Normoactive bowel sounds x4. G-tube at mid abdomen, no surrounding erythema/edema. MUSCULOSKELETAL: Feet are bandaged. NEUROLOGICAL: Awake and alert. No obvious cranial nerve deficits. Left sided hemiparesis with LUE contracture. Has been conversing. Moves RUE. Results Procedures completed during hospitalization: EGD Colonoscopy Labs on day of discharge: Labs from last 24 hours 01/25/18 01/25/18 01/25/18 08:32 04:49 04:49 WBC 3.9 L RBC 2.49 L Hgb 7.4 L Hct 22.3 L MCV 89.2 MCH 29.8 MCHC 33.4 RDW 14.5 Plt Count 211 MPV 9.0 Neut % (Auto) 60.2 Lymph % (Auto) 27.4 [place] % (Auto) 7.1 Eos % (Auto) 5.0 H Baso % (Auto) 0.3 Neut # (Auto) 2.3 Lymph # (Auto) 1.1 [place] # (Auto) 0.3 Eos # (Auto) 0.2 Baso # (Auto) 0.0 WBC Differential . Differential Comment Auto diff final Sodium 137 Potassium 3.6 Chloride 103 Carbon Dioxide 23.2 Anion Gap 11 BUN 21 H Creatinine 0.96 Estimated GFR Greater than 89 POC Glucose 200 H Random Glucose 143 H Calcium 8.8 Vancomycin Trough 42.5 H 01/24/18 01/24/18 01/24/18 22:52 22:51 15:31 WBC RBC Hgb Hct MCV MCH MCHC RDW Plt Count MPV Neut % (Auto) Lymph % (Auto) [place] % (Auto) Eos % (Auto) Baso % (Auto) Neut # (Auto) Lymph # (Auto) [place] # (Auto) Eos # (Auto) Baso # (Auto) WBC Differential Differential Comment Sodium Potassium Chloride Carbon Dioxide Anion Gap BUN Creatinine Estimated GFR POC Glucose 169 H 95 Random Glucose Calcium Vancomycin Trough 35.0 H 01/24/18 11:07 WBC RBC Hgb Hct MCV MCH MCHC RDW Plt Count MPV Neut % (Auto) Lymph % (Auto) [place] % (Auto) Eos % (Auto) Baso % (Auto) Neut # (Auto) Lymph # (Auto) [place] # (Auto) Eos # (Auto) Baso # (Auto) WBC Differential Differential Comment Sodium Potassium Chloride Carbon Dioxide Anion Gap BUN Creatinine Estimated GFR POC Glucose 182 H Random Glucose Calcium Vancomycin Trough - Impressions ITS Impressions Abdomen X-Ray 01/18/18 00:00 CONCLUSION: Limited by motion otherwise negative Barium Enema w/ Air Contrast, therapeutic 01/19/18 00:00 CONCLUSION: Extremely limited exam secondary to inability to achieve a rectocele as well as the patient's inability to complete the exam. Evaluation of the rectum demonstrated no evidence of mass or filling defect. Foot X-Ray 01/22/18 00:00 CONCLUSION: Abnormal appearance to the mid and distal fifth metatarsus with periosteal reaction, permeative destruction of the head, bony fragments in the soft tissues lateral to the metatarsal head and hyperflexion deformity of the MTP joint. The findings are characteristic of chronic osteomyelitis. Discharge Plan - Discharge Disposition Patient Disposition: 03 Discharge to SNF - Discharge Condition Condition: Stable - Discharge Order Discharge Orders: Discharge Order (Routine); Ordered 01/25/18 Ordered By: Garland Hudson - Discharge Details Anticipated Discharge Date: 01/25/18 - Physicians Team Primary Care Provider: UNKNOWN, Attending Provider: Candido Beltran Other Providers: Betsy Davenport MD ; Gagan Scott DPM ; Cris Paul MD
--- NOTE | 2018-01-25 13:29 | P.DCO ---
Post Hospital Infusion Therapy Location of Infusion Therapy: [facility] Infusion Therapy Order Patient Weight: 76.7 kg - Diagnosis (1) Osteomyelitis Code(s): M86.9 - Osteomyelitis, unspecified - Administer Medication Vancomycin Dose: 1 gram IV Directions: q 12 hours Start Treatment: 01/26/18 Stop Treatment: 03/09/18 - Additional Information Venous Access: PICC Line Additional Instructions: [x] Peripheral flush and dressing changes per protocol [x] Implanted port and central airline captain: * Implanted port: 10 ml Normal Saline followed by 5 ml Heparin 100 units/ml Heparin flush after each use and monthly to maintain. [] May leave port accessed during therapy. [] May leave peripheral site accessed for duration of therapy. [x] If patient has SOB or respiratory distress, check oxygen saturation. If less than 90% or clinical signs of respiratory distress, administer oxygen at 2 L/min. via nasal cannula and notify physician. [x] Anaphylaxis/Reaction orders: * Stop infusion. * Keep IV line open with saline flush. * Notify physician. * Monitor vital signs every 15 minutes until symptoms resolve. * Check Oxygen saturation; Oxygen at 2 L/min. via nasal cannula if less than 90% or clinical signs of respiratory distress. * Administer diphenhydramine (Benadryl) 25 mg IV STAT, (unless patient has received as pre-med). May repeat once, if necessary. * Solu-Cortef 250 mg IVP over 30-60 seconds, use 100 mg vials for each dissolution. * Epinephrine (1mg/1 ml) 0.3 mg subcutaneously or IVP now with any signs of respiratory distress. * Check with physician for new additional pre-med orders if patient is re- challenged or re-treated. [x] May remove PICC line when treatment complete, after confirming with Physician. [x] If the patient is admitted to the hospital, the ED, or transferred via [facility] , complete transfer form including medication reconciliation order sheet. Weekly Labs: BMP, CBC w/diff, CRP, SED Rate, Vancomycin Trough Allergies No Known Allergies Allergy (Unknown, Uncoded 01/06/18 21:04)
[2018-01-25 17:49] VITALS: BP 138/75; PULSE 88; TEMP 98.3; O2SAT 94
[2018-01-25] MEDS ORDERED: Heparin Central Flush 100 UNIT/ML 5 ML Vial IV.FLUSH PRN (18:47)
[2018-01-26] MEDS ORDERED: Heparin Central Flush 100 UNIT/ML 5 ML Vial IV.FLUSH SCH (09:00)
== END 2018-01-25 20:01 ==
LOC: NEPE 16:55 → NEDA 18:52 → NEPHCDU 20:45 → N06 01-18 20:32
PROVIDERS: ADMIT Hospitalist; ATTEND Hospitalist
PROC: PANENDO (2018-01-16 13:43)
PROC: COLONOS (2018-01-18 11:00)
DX: D50.9 Iron deficiency anemia, unspecified; Z93.1 Gastrostomy status; I50.9 Heart failure, unspecified; B95.62 Methicillin resistant Staphylococcus aureus infection as the cause of diseases classified elsewhere; F17.210 Nicotine dependence, cigarettes, uncomplicated; K44.9 Diaphragmatic hernia without obstruction or gangrene; I69.320 Aphasia following cerebral infarction; I69.354 Hemiplegia and hemiparesis following cerebral infarction affecting left non-dominant side; I69.391 Dysphagia following cerebral infarction; M86.671 Other chronic osteomyelitis, right ankle and foot; L97.529 Non-pressure chronic ulcer of other part of left foot with unspecified severity; R13.10 Dysphagia, unspecified; K57.31 Diverticulosis of large intestine without perforation or abscess with bleeding; E78.5 Hyperlipidemia, unspecified; G40.909 Epilepsy, unspecified, not intractable, without status epilepticus; Z79.4 Long term (current) use of insulin; L97.418 Non-pressure chronic ulcer of right heel and midfoot with other specified severity; F32.9 Major depressive disorder, single episode, unspecified; E11.69 Type 2 diabetes mellitus with other specified complication; Z74.01 Bed confinement status; I11.0 Hypertensive heart disease with heart failure; E11.621 Type 2 diabetes mellitus with foot ulcer

== ENCOUNTER 2018-02-17 01:44 | Inpatient (IN) ==
[2018-02-17 04:11] LABS: Mean Corpuscular Hemoglobin 30.5 pg (27.0-34.0); Mean Corpuscular Volume 92.5 fL (80.0-100.0); Mean Platelet Volume 10.2 fL (7.0-11.0); Platelet Count 181 th/mm3 (150-450); Red Blood Count 2.05 mil/mm3 (4.50-5.90); Red Cell Distribution Width 15.2 % (11.6-17.2)
[2018-02-17 04:18] LABS: Hematocrit 18.9 % (39.0-51.0); Hemoglobin 6.2 gm/dL (13.0-17.0)
[2018-02-17 04:20] LABS: Activated Partial Thrombo Time 28.4 sec (24.3-30.1); INR 1.2 Ratio; Prothrombin Time 12.3 sec (9.8-11.6)
[2018-02-17] MEDS ORDERED: Bisacodyl 10 MG Supp RECTAL PRN (06:46)
[2018-02-17] MEDS ORDERED: Acetaminophen 325 MG Tablet PO PRN (06:46)
--- NOTE | 2018-02-17 06:58 | ED ---
HPI General Chief Complaint: Recheck/Abnormal Lab/Rx Stated Complaint: Medical Time Seen by Provider: 02/17/18 03:37 History of Present Illness HPI narrative: Patient is a 47-year-old male presents the emergency department via [facility] with abnormal lab values. He is a extended care facility patient who had a stroke and is unable to care for himself. Patient speaks minimally. He was sent for abnormal lab values however they did not state which one in the transfer record. Per transfer notes he has had diarrhea. History is very limited Related Data Home Medications Medication Instructions Recorded Confirmed ascorbic acid (vitamin C) [Vitamin 500 mg PO BID 01/15/18 02/17/18 C] aspirin [Aspir-81] 81 mg FEEDING TUBE DAILY 01/15/18 02/17/18 atorvastatin 10 mg FEEDING TUBE HS 01/15/18 02/17/18 carvedilol [Coreg] 25 mg FEEDING TUBE BID 01/15/18 02/17/18 escitalopram oxalate 15 mg FEEDING TUBE DAILY 01/15/18 02/17/18 gentamicin 1 applic TOPICAL QID 01/15/18 02/17/18 hydralazine 100 mg PO TID 01/15/18 02/17/18 insulin detemir U-100 [Levemir 5 unit SUB-Q BID 01/15/18 02/17/18 U-100 Insulin] ipratropium-albuterol 3 ml INHALATION Q6-8H PRN 01/15/18 02/17/18 levetiracetam 500 mg PO TID 01/15/18 02/17/18 melatonin 3 mg FEEDING TUBE HS 01/15/18 02/17/18 sodium bicarbonate 650 mg PO BID 01/15/18 02/17/18 insulin aspart U-100 [Novolog 1 sliding scale dose SUB-Q UD 02/17/18 02/17/18 U-100 Insulin aspart] Previous Rx's Medication Instructions Recorded pantoprazole [Protonix] 40 mg PO BID #60 tab 01/25/18 Allergies Allergy/AdvReac Type Severity Reaction Status Date / Time No Known Allergies Allergy Unknown Uncoded 01/06/18 21:04 Review of Systems ROS Unobtainable unobtainable due to mental condition PMFSH Social History Social History Substance History: No History of Abuse Second Hand Smoke Exposure: No Smoking Status: Never smoker Tobacco Type: Cigarettes How Often Do You Have a Drink Containing Alcohol: Never Recent Travel in [facility] within the Last 8 Weeks: No Recent Out of Country Travel within the Last 8 Weeks: No Immunization History Tetanus Immunization: Unable to Assess Hx Influenza Vaccine This Season: Unable to Assess Exam Narrative Exam Narrative: GENERAL: 47-year-old male in no distress. SKIN: Focused skin assessment warm/dry. HEAD: Atraumatic. Normocephalic. EYES: Pupils equal and round. No scleral icterus. No injection or drainage. ENT: No nasal bleeding or discharge. Mucous membranes pink and moist. CARDIOVASCULAR: Regular rate and rhythm. No murmur appreciated. RESPIRATORY: No accessory muscle use. Clear to auscultation. Breath sounds equal bilaterally. GASTROINTESTINAL: Abdomen soft, non-tender, nondistended. Hepatic and splenic margins not palpable. MUSCULOSKELETAL: No obvious deformities. No clubbing. No cyanosis. No edema. NEUROLOGICAL: left hemiplegia from previous stroke Course Initial Documented Vital Signs Temperature 97.8 F 02/17/18 02:40 Pulse Rate 82 02/17/18 02:40 Respiratory Rate 20 02/17/18 02:40 Blood Pressure 144/83 H 02/17/18 02:40 Pulse Oximetry 96 02/17/18 02:40 Last Documented Vital Signs Temperature 97.9 F 02/18/18 00:00 Pulse Rate 76 02/18/18 00:00 Respiratory Rate 18 02/18/18 00:00 Blood Pressure 161/83 H 02/18/18 00:00 Pulse Oximetry 100 02/18/18 00:00 Medical Decision Making MDM Narrative Medical decision making narrative: Patient was seen and evaluated in the emergency department. He was found to have a hemoglobin of 7.9 and his stool was positive for occult blood. He was admitted to [facility] for further evaluation and treatment. Type and screen was performed in the emergency department but no blood was given. Lab Data Result diagrams: 02/17/18 19:08 02/17/18 19:08 Lab Results 02/17/18 02/17/18 02/17/18 Range/Units 03:00 03:00 03:45 WBC 4.0 (4.0-11.0) th/mm3 RBC 2.05 L (4.50-5.90) mil/mm3 Hgb 6.2 L* (13.0-17.0) gm/dL Hct 18.9 L* (39.0-51.0) % MCV 92.5 (80.0-100.0) fL MCH 30.5 (27.0-34.0) pg MCHC 33.0 (32.0-36.0) % RDW 15.2 (11.6-17.2) % Plt Count 181 (150-450) th/mm3 MPV 10.2 (7.0-11.0) fL Neut % (Auto) (16.0-70.0) % Lymph % (Auto) (9.0-44.0) % [place] % (Auto) (0.0-8.0) % Eos % (Auto) (0.0-4.0) % Baso % (Auto) (0.0-2.0) % Neut # (Auto) (1.8-7.7) th/mm3 Lymph # (Auto) (1.0-4.8) th/mm3 [place] # (Auto) (0.0-0.9) th/mm3 Eos # (Auto) (0.0-0.4) th/mm3 Baso # (Auto) (0.0-0.2) th/mm3 WBC Differential Differential Comment PT 12.3 H (9.8-11.6) sec INR 1.2 Ratio APTT 28.4 (24.3-30.1) sec Sodium (136-145) meq/L Potassium (3.5-5.1) meq/L Chloride (98-107) meq/L Carbon Dioxide (21.0-32.0) meq/L Anion Gap (5-15) meq/L BUN (7-18) mg/dL Creatinine (0.60-1.30) mg/dL Estimated GFR (>89) mL/min POC Glucose (68-110) mg/dl Random Glucose (74-106) mg/dL Calcium (8.5-10.1) mg/dL Iron (65-175) mcg/dL TIBC (250-450) mcg/dL % Saturation (20-50) % Total Bilirubin (0.2-1.0) mg/dL AST (15-37) U/L ALT (12-78) U/L Alkaline Phosphatase (45-117) U/L Total Protein (6.4-8.2) g/dL Albumin (3.4-5.0) g/dL Vitamin B12 (193-986) pg/mL Folate (3.1-17.5) ng/mL Blood Type O Positive Antibody Screen Negative MTS Gel Crossmatch 02/17/18 02/17/18 02/17/18 Range/Units 07:09 11:57 16:48 WBC (4.0-11.0) th/mm3 RBC (4.50-5.90) mil/mm3 Hgb (13.0-17.0) gm/dL Hct (39.0-51.0) % MCV (80.0-100.0) fL MCH (27.0-34.0) pg MCHC (32.0-36.0) % RDW (11.6-17.2) % Plt Count (150-450) th/mm3 MPV (7.0-11.0) fL Neut % (Auto) (16.0-70.0) % Lymph % (Auto) (9.0-44.0) % [place] % (Auto) (0.0-8.0) % Eos % (Auto) (0.0-4.0) % Baso % (Auto) (0.0-2.0) % Neut # (Auto) (1.8-7.7) th/mm3 Lymph # (Auto) (1.0-4.8) th/mm3 [place] # (Auto) (0.0-0.9) th/mm3 Eos # (Auto) (0.0-0.4) th/mm3 Baso # (Auto) (0.0-0.2) th/mm3 WBC Differential Differential Comment PT (9.8-11.6) sec INR Ratio APTT (24.3-30.1) sec Sodium (136-145) meq/L Potassium (3.5-5.1) meq/L Chloride (98-107) meq/L Carbon Dioxide (21.0-32.0) meq/L Anion Gap (5-15) meq/L BUN (7-18) mg/dL Creatinine (0.60-1.30) mg/dL Estimated GFR (>89) mL/min POC Glucose 93 88 (68-110) mg/dl Random Glucose (74-106) mg/dL Calcium (8.5-10.1) mg/dL Iron (65-175) mcg/dL TIBC (250-450) mcg/dL % Saturation (20-50) % Total Bilirubin (0.2-1.0) mg/dL AST (15-37) U/L ALT (12-78) U/L Alkaline Phosphatase (45-117) U/L Total Protein (6.4-8.2) g/dL Albumin (3.4-5.0) g/dL Vitamin B12 (193-986) pg/mL Folate (3.1-17.5) ng/mL Blood Type Antibody Screen MTS Gel Crossmatch See Detail 02/17/18 02/17/18 02/17/18 Range/Units 19:08 19:08 20:49 WBC 4.1 (4.0-11.0) th/mm3 RBC 2.60 L (4.50-5.90) mil/mm3 Hgb 7.9 L (13.0-17.0) gm/dL Hct 22.7 L (39.0-51.0) % MCV 87.0 D (80.0-100.0) fL MCH 30.2 (27.0-34.0) pg MCHC 34.7 (32.0-36.0) % RDW 16.4 (11.6-17.2) % Plt Count 142 L (150-450) th/mm3 MPV 9.9 (7.0-11.0) fL Neut % (Auto) 66.7 (16.0-70.0) % Lymph % (Auto) 21.2 (9.0-44.0) % [place] % (Auto) 8.8 H (0.0-8.0) % Eos % (Auto) 2.9 (0.0-4.0) % Baso % (Auto) 0.4 (0.0-2.0) % Neut # (Auto) 2.8 (1.8-7.7) th/mm3 Lymph # (Auto) 0.9 L (1.0-4.8) th/mm3 [place] # (Auto) 0.4 (0.0-0.9) th/mm3 Eos # (Auto) 0.1 (0.0-0.4) th/mm3 Baso # (Auto) 0.0 (0.0-0.2) th/mm3 WBC Differential . Differential Comment Auto diff final PT (9.8-11.6) sec INR Ratio APTT (24.3-30.1) sec Sodium 139 (136-145) meq/L Potassium 3.1 L (3.5-5.1) meq/L Chloride 102 (98-107) meq/L Carbon Dioxide 27.9 (21.0-32.0) meq/L Anion Gap 9 (5-15) meq/L BUN 28 H (7-18) mg/dL Creatinine 1.13 (0.60-1.30) mg/dL Estimated GFR 84 L (>89) mL/min POC Glucose 69 (68-110) mg/dl Random Glucose 66 L (74-106) mg/dL Calcium 7.8 L (8.5-10.1) mg/dL Iron 62 L (65-175) mcg/dL TIBC 227 L (250-450) mcg/dL % Saturation 27.3 (20-50) % Total Bilirubin 0.8 (0.2-1.0) mg/dL AST 27 (15-37) U/L ALT 22 (12-78) U/L Alkaline Phosphatase 131 H (45-117) U/L Total Protein 7.6 (6.4-8.2) g/dL Albumin 2.8 L (3.4-5.0) g/dL Vitamin B12 1238 H (193-986) pg/mL Folate Greater than 20.0 H (3.1-17.5) ng/mL Blood Type Antibody Screen MTS Gel Crossmatch 02/17/18 02/18/18 02/18/18 Range/Units 21:17 01:42 03:59 WBC (4.0-11.0) th/mm3 RBC (4.50-5.90) mil/mm3 Hgb (13.0-17.0) gm/dL Hct (39.0-51.0) % MCV (80.0-100.0) fL MCH (27.0-34.0) pg MCHC (32.0-36.0) % RDW (11.6-17.2) % Plt Count (150-450) th/mm3 MPV (7.0-11.0) fL Neut % (Auto) (16.0-70.0) % Lymph % (Auto) (9.0-44.0) % [place] % (Auto) (0.0-8.0) % Eos % (Auto) (0.0-4.0) % Baso % (Auto) (0.0-2.0) % Neut # (Auto) (1.8-7.7) th/mm3 Lymph # (Auto) (1.0-4.8) th/mm3 [place] # (Auto) (0.0-0.9) th/mm3 Eos # (Auto) (0.0-0.4) th/mm3 Baso # (Auto) (0.0-0.2) th/mm3 WBC Differential Differential Comment PT (9.8-11.6) sec INR Ratio APTT (24.3-30.1) sec Sodium (136-145) meq/L Potassium (3.5-5.1) meq/L Chloride (98-107) meq/L Carbon Dioxide (21.0-32.0) meq/L Anion Gap (5-15) meq/L BUN (7-18) mg/dL Creatinine (0.60-1.30) mg/dL Estimated GFR (>89) mL/min POC Glucose 156 H 79 69 (68-110) mg/dl Random Glucose (74-106) mg/dL Calcium (8.5-10.1) mg/dL Iron (65-175) mcg/dL TIBC (250-450) mcg/dL % Saturation (20-50) % Total Bilirubin (0.2-1.0) mg/dL AST (15-37) U/L ALT (12-78) U/L Alkaline Phosphatase (45-117) U/L Total Protein (6.4-8.2) g/dL Albumin (3.4-5.0) g/dL Vitamin B12 (193-986) pg/mL Folate (3.1-17.5) ng/mL Blood Type Antibody Screen MTS Gel Crossmatch Imaging Data Radiologist's impression: Abdomen/Pelvis CT 02/17/18 00:00 CONCLUSION: 1. Small bilateral pleural effusions and bilateral lower lung opacity again seen. 2. Mild splenomegaly again seen. 3. Gastrostomy tube in place. 4. No evidence of bowel dilatation. 5. Heterotopic ossification about the left hip again seen. 6. Calcified adrenal glands again seen. 7. Enlarged inguinal lymph nodes again seen. Discharge Plan Discharge Disposition Patient Disposition: 30 Still Patient Discharge Condition Condition: Stable Physicians Team ED Provider: Viktoriya Montemayor Primary Care Provider: Doroteo Mackey Attending Provider: Marixa Doan Other Providers: Fabi Mercado Status ED Status: Left Department Discharge Information Discharge Date/Time: 02/17/18 14:48
[2018-02-17] MEDS ORDERED: Sodium Chlor 0.9% Inj 250 ML IV.SIG SCH (07:00)
[2018-02-17] MEDS: Senna/Docusate Sodium 8.6/50 MG Tablet PO SCH ×2 (08:48→20:37)
--- NOTE | 2018-02-17 11:12 | P.HP ---
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 The patient had a CBC done as an outpatient and it showed a hemoglobin less than 7.0. He was recently admitted to the hospital on 12/24/17 where he was treated for anemia of chronic inflammation and was transfused couple units of packed red blood cell with consultation to hematology. The patient does not participate in the exam and will not answer questions. He will open his eyes when asked to and shakes his head yes or no but remains nonverbal. According to previous neurology notes from the patient's prior hospital stay this is baseline for the patient. - Diagnosis (1) Acute on chronic anemia (2) Anemia of chronic disorder Inpatient Certification: I certify that the inpatient services were ordered in accordance with Medicare regulations governing the order. This includes certification that hospital inpatient services are reasonable and necessary and in the case of services not specified as inpatient-only under 42 CFR 419.22(n), that they are appropriately provided as inpatient services in accordance to with the 2-midnight benchmark under 43 CFR 412.3(e) Estimated Total Length of Stay (Days): 2 Plans for Post Hospital Care: SNF Review of Systems All other systems reviewed negative except as stated in HPI PMFSH - History History Provided By: Medical Record, Oven Laborer / EMT - Medical History Medical History: Medical History (Last Reviewed 02/17/18 @ 09:44 by Colette Terrazas) Gastrostomy tube in place (Acute) Anemia CVA (cerebral vascular accident) Depression Diabetes HLD (hyperlipidemia) Hemiparesis Hemiplegia Hypertension - Family History Family History: Family History (Last Reviewed 02/17/18 @ 09:44 by Colette Terrazas) Other Unknown family medical history - Tobacco History Second Hand Smoke Exposure: No Smoking Status: Unknown if ever smoked Tobacco Type: Cigarettes - Alcohol History How Often Do You Have a Drink Containing Alcohol: Unable to Obtain - Substance Use History Substance History: No History of Abuse - Travel History Recent Travel in the [place] Within the Last 8 Weeks: No Recent Travel Out of the Country Within the Last 8 Weeks: No - Immunization History Tetanus Immunization: Unable to Assess Hx Influenza Vaccine This Season: Unable to Assess Medications and Allergies Active Medications: Active Medications Acetaminophen (Tylenol) 650 mg PO Q4H PRN PRN Reason: Temp > 100.4 Al Hydroxide/Mg Hydroxide (Milk Of Magnesia Liq) 30 ml PO Q12H PRN PRN Reason: Mild Constipation Bisacodyl (Dulcolax Supp) 10 mg RECTAL DAILY PRN PRN Reason: SEVERE CONSITIPATION Sodium Chloride (Ns Inj) 250 mls @ 15 mls/hr IV.SIG ONCE [facility] Stop: 02/17/18 23:39 Last Admin: 02/17/18 07:50 Dose: 15 mls/hr Lactulose (Lactulose Liq) 30 ml PO DAILY PRN PRN Reason: SEVERE CONSITIPATION Ondansetron HCl (Zofran Inj) 4 mg IV.PUSH Q6H PRN PRN Reason: NAUSEA OR VOMITING Senna/Docusate Sodium (Jessie-Colace) 1 tab PO BID [facility] Last Admin: 02/17/18 08:48 Dose: Not Given Sennosides (Senokot) 17.2 mg PO Q12H PRN PRN Reason: Moderate Constipation Temazepam (Restoril) 15 mg PO HS PRN PRN Reason: INSOMNIA Allergies Allergy/AdvReac Type Severity Reaction Status Date / Time No Known Allergies Allergy Unknown Uncoded 01/06/18 21:04 Home Medications Medication Instructions Recorded Confirmed Type ascorbic acid (vitamin C) [Vitamin 500 mg PO BID 01/15/18 02/17/18 History C] aspirin [Aspir-81] 81 mg FEEDING TUBE DAILY 01/15/18 02/17/18 History atorvastatin 10 mg FEEDING TUBE HS 01/15/18 02/17/18 History carvedilol [Coreg] 25 mg FEEDING TUBE BID 01/15/18 02/17/18 History escitalopram oxalate 15 mg FEEDING TUBE DAILY 01/15/18 02/17/18 History gentamicin 1 applic TOPICAL QID 01/15/18 02/17/18 History hydralazine 100 mg PO TID 01/15/18 02/17/18 History insulin detemir U-100 [Levemir 5 unit SUB-Q BID 01/15/18 02/17/18 History U-100 Insulin] ipratropium-albuterol 3 ml INHALATION Q6-8H PRN 01/15/18 02/17/18 History levetiracetam 500 mg PO TID 01/15/18 02/17/18 History melatonin 3 mg FEEDING TUBE HS 01/15/18 02/17/18 History sodium bicarbonate 650 mg PO BID 01/15/18 02/17/18 History insulin aspart U-100 [Novolog 1 sliding scale dose SUB-Q UD 02/17/18 02/17/18 History U-100 Insulin aspart] Exam Vital signs: Vital Signs 02/17/18 02:40 02/17/18 04:00 02/17/18 05:00 Temperature 97.8 F Pulse Rate 82 80 80 Respiratory Rate 20 21 19 Blood Pressure 144/83 H 151/86 H 156/99 H Pulse Oximetry 96 96 95 02/17/18 06:00 02/17/18 07:27 02/17/18 07:49 Temperature 98.6 F Pulse Rate 80 80 Respiratory Rate 19 20 Blood Pressure 160/83 H 153/85 H Pulse Oximetry 94 L 02/17/18 08:05 Temperature 98.7 F Pulse Rate 80 Respiratory Rate 20 Blood Pressure 158/86 H Pulse Oximetry Intake & Output 02/16/18 02/17/18 02/17/18 18:59 06:59 18:59 Intake Total 0 / 0 Balance 0 / 0 Weight 90.718 kg Intake: Intake (Blood Product) Amt 0 / 0 Rbc As-3 Leukoreduced Unit 0 / 0 [id number] Narrative: GENERAL: NAD SKIN: Warm and dry. HEAD: Atraumatic. Normocephalic. EYES: Pupils equal and round. No scleral icterus. No injection or drainage. ENT: No nasal bleeding or discharge. Mucous membranes pink and moist. NECK: Trachea midline. No JVD. CARDIOVASCULAR: Regular rate and rhythm. RESPIRATORY: No accessory muscle use. Clear to auscultation. Breath sounds equal bilaterally. GASTROINTESTINAL: Abdomen soft, non-tender, nondistended. Hepatic and splenic margins not palpable. MUSCULOSKELETAL: Extremities without clubbing, cyanosis, or edema. No obvious deformities. PEG tube in place NEUROLOGICAL: Awake and alert. No obvious cranial nerve deficits. Motor grossly within normal limits. Five out of 5 muscle strength in the arms and legs. Results - Labs CBC & Chem 7: 02/17/18 03:00 Labs: Laboratory Results - last 24 hr 02/17/18 02/17/18 02/17/18 03:00 03:00 03:45 WBC 4.0 RBC 2.05 L Hgb 6.2 L* Hct 18.9 L* MCV 92.5 MCH 30.5 MCHC 33.0 RDW 15.2 Plt Count 181 MPV 10.2 PT 12.3 H INR 1.2 APTT 28.4 Blood Type O Positive Antibody Screen Negative MTS Gel Crossmatch 02/17/18 07:09 WBC RBC Hgb Hct MCV MCH MCHC RDW Plt Count MPV PT INR APTT Blood Type Antibody Screen MTS Gel Crossmatch See Detail Caprini VTE Risk Assessment Caprini VTE Risk Assessment: No/Low Risk (score <= 1) Caprini Risk Assessment Model: Point Value = 1 Point Value = 2 Point Value = 3 Point Value = 5 Age 41-60 Minor surgery BMI > 25 kg/m2 Swollen legs Varicose veins or History of unexplained or recurrent spontaneous Oral contraceptives or hormone replacement Sepsis (< 1 month) Serious lung disease, including pneumonia (< 1 month) Abnormal pulmonary function Acute myocardial infarction Congestive heart failure (< 1 month) History of inflammatory bowel disease Medical patient at bed rest Age 61-74 Arthroscopic surgery Major open surgery (> 45 min) Laparoscopic surgery (> 45 min) Malignancy Confined to bed (> 72 hours) Immobilizing plaster cast Central venous access Age >= 75 History of VTE Family history of VTE Factor V Leiden Prothrombin [id number] Lupus anticoagulant Anticardiolipin antibodies Elevated serum homocysteine Heparin-induced thrombocytopenia Other congenital or acquired thrombophilia Stroke (< 1 month) Elective arthroplasty Hip, pelvis, or leg fracture Acute spinal cord injury (< 1 month) Prophylaxis Regimen: Total Risk Factor Score Risk Level Prophylaxis Regimen 0-1 Low Early ambulation 2 Moderate Order ONE of the following: *Sequential Compression Device (SCD) *Heparin 5000 units SQ BID 3-4 Higher Order ONE of the following medications: *Heparin 5000 units SQ TID *Enoxaparin/Lovenox 40 mg SQ daily (WT < 150 kg, CrCl > 30 mL/min) *Enoxaparin/Lovenox 30 mg SQ daily (WT < 150 kg, CrCl > 10-29 mL/min) *Enoxaparin/Lovenox 30 mg SQ BID (WT < 150 kg, CrCl > 30 mL/min) AND/OR *Sequential Compression Device (SCD) 5 or more Highest Order ONE of the following medications: *Heparin 5000 units SQ TID (Preferred with Epidurals) *Enoxaparin/Lovenox 40 mg SQ daily (WT < 150 kg, CrCl > 30 mL/min) *Enoxaparin/Lovenox 30 mg SQ daily (WT < 150 kg, CrCl > 10-29 mL/min) *Enoxaparin/Lovenox 30 mg SQ BID (WT < 150 kg, CrCl > 30 mL/min) AND *Sequential Compression Device (SCD) Assessment and Plan - Assessment (1) Acute on chronic anemia Code(s): D64.9 - Anemia, unspecified Status: Acute (2) Anemia of chronic disorder Code(s): D63.8 - Anemia in other chronic diseases classified elsewhere Status : Acute - Plan 1-year-old man with 1. Acute on chronic anemia Patient was previously seen by hematology on December 24, 2017 and at the time his anemia was felt to be anemia of chronic inflammation due to decreased red blood cell production and functional iron deficiency. However that hospitalization there was no suspected underlying bone marrow disorder, and patient had no evidence to suggest iron deficiency, occult blood loss. He responded well to blood transfusion We will continue at this time with blood transfusion 2 units, monitor H&H Check iron study, Hemoccult, B12 and folate GI consultation as needed for possible panendoscopy Hematology consultation as needed 2. History of CVA with left-sided hemiparesis Physical therapy consulted 3. Diabetes mellitus Resume home Levemir and start insulin sliding scale with finger blood glucose monitoring 4. Hypertension/hyperlipidemia Resume home medications 5. Seizure d/o Resume Keppra 6. Psychiatric disorder/depression Resume home medications DVT prophylaxis: Bilateral SCDs
[2018-02-17] MEDS: Insulin NovoLOG Aspart Correctional Sugar Inj SQ SCH ×2 (12:05→17:08)
--- NOTE | 2018-02-17 12:48 | P.CONGI ---
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 hgb on admission is 6.2. He had recent hospital visit on 12/24/17 where he was treated for anemia of chronic disease and was transfused couple units of packed red blood cell The patient is non verbal, only nods yes or no, not able to provide any history, according to EMR, this is base line for pt. No bleeding reported by staff. <Will Lewis - Last Filed: 02/17/18 12:30> Review of Systems Comments: Not able to obtain, pt non verbal <Will Lewis - Last Filed: 02/17/18 12:30> PMFSH - History History Provided By: Medical Record, Lead Cytogenetic Technologist / EMT - Medical History Medical History: Medical History (Last Reviewed 02/17/18 @ 09:44 by Colette Terrazas) Gastrostomy tube in place (Acute) Anemia CVA (cerebral vascular accident) Depression Diabetes HLD (hyperlipidemia) Hemiparesis Hemiplegia Hypertension - Family History Family History: Family History (Last Reviewed 02/17/18 @ 09:44 by Colette Terrazas) Other Unknown family medical history - Tobacco History Second Hand Smoke Exposure: No Smoking Status: Unknown if ever smoked Tobacco Type: Cigarettes - Alcohol History How Often Do You Have a Drink Containing Alcohol: Unable to Obtain - Substance Use History Substance History: No History of Abuse - Travel History Recent Travel in the [place] Within the Last 8 Weeks: No Recent Travel Out of the Country Within the Last 8 Weeks: No - Immunization History Tetanus Immunization: Unable to Assess Hx Influenza Vaccine This Season: Unable to Assess <Will Lewis - Last Filed: 02/17/18 12:30> - Medical History Medical History: Medical History (Last Reviewed 02/17/18 @ 09:44 by Colette Terrazas) Gastrostomy tube in place (Acute) Anemia CVA (cerebral vascular accident) Depression Diabetes HLD (hyperlipidemia) Hemiparesis Hemiplegia Hypertension - Family History Family History: Family History (Last Reviewed 02/17/18 @ 09:44 by Colette Terrazas) Other Unknown family medical history <Fabi Mercado - Last Filed: 02/17/18 16:54> Medications and Allergies Active Medications: Active Medications Acetaminophen (Tylenol) 650 mg PO Q4H PRN PRN Reason: Temp > 100.4 Al Hydroxide/Mg Hydroxide (Milk Of Magnesia Liq) 30 ml PO Q12H PRN PRN Reason: Mild Constipation Ascorbic Acid (Vitamin C) 500 mg PO BID [facility] Atorvastatin Calcium (Lipitor) 10 mg G-TUBE HS [facility] Bisacodyl (Dulcolax Supp) 10 mg RECTAL DAILY PRN PRN Reason: SEVERE CONSITIPATION Carvedilol (Coreg) 25 mg G-TUBE BID [facility] Dextrose (D50w Vial) 50 ml IV.PUSH UNSCH PRN PRN Reason: PER HYPOGLYCEMIA PROTOCOL Enalaprilat (Vasotec Inj) 2.5 mg IV.PUSH Q6H PRN PRN Reason: SBP>160, DBP>90 Escitalopram Oxalate (Lexapro) 15 mg PO DAILY [facility] Glucagon (Glucagon Inj) 1 mg OTHER PRN PRN PRN Reason: for Hypoglycemia Protocol Hydralazine HCl (Apresoline) 100 mg PO TID [facility] Sodium Chloride (Ns Inj) 250 mls @ 15 mls/hr IV.SIG ONCE [facility] Stop: 02/17/18 23:39 Last Admin: 02/17/18 07:50 Dose: 15 mls/hr Insulin Aspart (Novolog Insulin Correctional Sugar Inj) 0 unit SQ ACHS KRISTIE; Protocol Last Admin: 02/17/18 12:05 Dose: Not Given Insulin Detemir (Levemir Inj) 5 unit SQ BID [facility] Lactulose (Lactulose Liq) 30 ml PO DAILY PRN PRN Reason: SEVERE CONSITIPATION Levetiracetam (Keppra) 500 mg PO TID [facility] Ondansetron HCl (Zofran Inj) 4 mg IV.PUSH Q6H PRN PRN Reason: NAUSEA OR VOMITING Pantoprazole Sodium (Protonix) 40 mg PO BID [facility] Senna/Docusate Sodium (Jessie-Colace) 1 tab PO BID [facility] Last Admin: 02/17/18 08:48 Dose: Not Given Sennosides (Senokot) 17.2 mg PO Q12H PRN PRN Reason: Moderate Constipation Temazepam (Restoril) 15 mg PO HS PRN PRN Reason: INSOMNIA <Will Lewis - Last Filed: 02/17/18 12:30> Active Medications: Active Medications Acetaminophen (Tylenol) 650 mg PO Q4H PRN PRN Reason: Temp > 100.4 Al Hydroxide/Mg Hydroxide (Milk Of Magnesia Liq) 30 ml PO Q12H PRN PRN Reason: Mild Constipation Ascorbic Acid (Vitamin C) 500 mg PO BID [facility] Atorvastatin Calcium (Lipitor) 10 mg G-TUBE HS [facility] Bisacodyl (Dulcolax Supp) 10 mg RECTAL DAILY PRN PRN Reason: SEVERE CONSITIPATION Carvedilol (Coreg) 25 mg G-TUBE BID [facility] Last Admin: 02/17/18 13:29 Dose: 25 mg Dextrose (D50w Vial) 50 ml IV.PUSH UNSCH PRN PRN Reason: PER HYPOGLYCEMIA PROTOCOL Enalaprilat (Vasotec Inj) 2.5 mg IV.PUSH Q6H PRN PRN Reason: SBP>160, DBP>90 Escitalopram Oxalate (Lexapro) 15 mg PO DAILY [facility] Glucagon (Glucagon Inj) 1 mg OTHER PRN PRN PRN Reason: for Hypoglycemia Protocol Hydralazine HCl (Apresoline) 100 mg PO TID [facility] Last Admin: 02/17/18 13:28 Dose: 100 mg Sodium Chloride (Ns Inj) 250 mls @ 15 mls/hr IV.SIG ONCE [facility] Stop: 02/17/18 23:39 Last Admin: 02/17/18 07:50 Dose: 15 mls/hr Insulin Aspart (Novolog Insulin Correctional Sugar Inj) 0 unit SQ ACHS [facility]; Protocol Last Admin: 02/17/18 12:05 Dose: Not Given Insulin Detemir (Levemir Inj) 5 unit SQ BID [facility] Lactulose (Lactulose Liq) 30 ml PO DAILY PRN PRN Reason: SEVERE CONSITIPATION Levetiracetam (Keppra) 500 mg PO TID [facility] Last Admin: 02/17/18 13:29 Dose: 500 mg Ondansetron HCl (Zofran Inj) 4 mg IV.PUSH Q6H PRN PRN Reason: NAUSEA OR VOMITING Pantoprazole Sodium (Protonix) 40 mg PO BID [facility] Senna/Docusate Sodium (Jessie-Colace) 1 tab PO BID [facility] Last Admin: 02/17/18 08:48 Dose: Not Given Sennosides (Senokot) 17.2 mg PO Q12H PRN PRN Reason: Moderate Constipation Temazepam (Restoril) 15 mg PO HS PRN PRN Reason: INSOMNIA <Fabi Mercado - Last Filed: 02/17/18 16:54> Allergies Allergy/AdvReac Type Severity Reaction Status Date / Time No Known Allergies Allergy Unknown Uncoded 01/06/18 21:04 Home Medications Medication Instructions Recorded Confirmed Type ascorbic acid (vitamin C) [Vitamin 500 mg PO BID 01/15/18 02/17/18 History C] aspirin [Aspir-81] 81 mg FEEDING TUBE DAILY 01/15/18 02/17/18 History atorvastatin 10 mg FEEDING TUBE HS 01/15/18 02/17/18 History carvedilol [Coreg] 25 mg FEEDING TUBE BID 01/15/18 02/17/18 History escitalopram oxalate 15 mg FEEDING TUBE DAILY 01/15/18 02/17/18 History gentamicin 1 applic TOPICAL QID 01/15/18 02/17/18 History hydralazine 100 mg PO TID 01/15/18 02/17/18 History insulin detemir U-100 [Levemir 5 unit SUB-Q BID 01/15/18 02/17/18 History U-100 Insulin] ipratropium-albuterol 3 ml INHALATION Q6-8H PRN 01/15/18 02/17/18 History levetiracetam 500 mg PO TID 01/15/18 02/17/18 History melatonin 3 mg FEEDING TUBE HS 01/15/18 02/17/18 History sodium bicarbonate 650 mg PO BID 01/15/18 02/17/18 History insulin aspart U-100 [Novolog 1 sliding scale dose SUB-Q UD 02/17/18 02/17/18 History U-100 Insulin aspart] Exam Vital signs: Vital Signs 02/17/18 02:40 02/17/18 04:00 02/17/18 05:00 Temperature 97.8 F Pulse Rate 82 80 80 Respiratory Rate 20 21 19 Blood Pressure 144/83 H 151/86 H 156/99 H Pulse Oximetry 96 96 95 02/17/18 06:00 02/17/18 07:27 02/17/18 07:49 Temperature 98.6 F Pulse Rate 80 80 Respiratory Rate 19 20 Blood Pressure 160/83 H 153/85 H Pulse Oximetry 94 L 02/17/18 08:05 02/17/18 11:51 Temperature 98.7 F 98.2 F Pulse Rate 80 79 Respiratory Rate 20 18 Blood Pressure 158/86 H 181/100 H Pulse Oximetry 100 Intake & Output 02/16/18 02/17/18 02/17/18 18:59 06:59 18:59 Intake Total 400 / 400 Balance 400 / 400 Weight 90.718 kg Intake: Intake (Blood Product) Amt 400 / 400 Rbc As-3 Leukoreduced Unit 400 / 400 [id number] - Constitutional no acute distress - Routine HEENT Exam Head: Present: normocephalic - Routine Neck Exam Present: supple - Routine Respiratory Exam Present: CTA bilaterally - Routine Cardiovascular Exam Present: RRR - Routine Abdominal Exam Present: soft, normoactive bowel sounds. Absent: tenderness Comments: PEG tube - Routine Extremities Exam Absent: cyanosis, edema - Routine Skin Exam Present: intact, dry - Routine Neurological Exam Present: alert <Will Lewis - Last Filed: 02/17/18 12:30> Vital signs: Vital Signs 02/17/18 02:40 02/17/18 04:00 02/17/18 05:00 Temperature 97.8 F Pulse Rate 82 80 80 Respiratory Rate 20 21 19 Blood Pressure 144/83 H 151/86 H 156/99 H Pulse Oximetry 96 96 95 02/17/18 06:00 02/17/18 07:27 02/17/18 07:49 Temperature 98.6 F Pulse Rate 80 80 Respiratory Rate 19 20 Blood Pressure 160/83 H 153/85 H Pulse Oximetry 94 L 02/17/18 08:05 02/17/18 11:51 02/17/18 13:42 Temperature 98.7 F 98.2 F 98.3 F Pulse Rate 80 79 79 Respiratory Rate 20 18 18 Blood Pressure 158/86 H 181/100 H 162/93 H Pulse Oximetry 100 95 02/17/18 13:45 02/17/18 14:01 02/17/18 14:24 Temperature 98.3 F 98 F Pulse Rate 79 80 77 Respiratory Rate 18 18 18 Blood Pressure 162/93 H 160/72 H 160/72 H Pulse Oximetry 95 98 95 Intake & Output 02/16/18 02/17/18 02/17/18 18:59 06:59 18:59 Intake Total 400 / 400 Balance 400 / 400 Weight 90.718 kg Intake: Intake (Blood Product) Amt 400 / 400 Rbc As-3 Leukoreduced Unit 400 / 400 [id number] Rbc As-3 Leukoreduced Unit 0 / 0 [id number] Other: Date of Last Bowel Movement 02/17/18 <Fabi Mercado - Last Filed: 02/17/18 16:54> Results - Labs CBC & Chem 7: 02/17/18 03:00 Labs: Laboratory Results - last 24 hr 02/17/18 02/17/18 02/17/18 03:00 03:00 03:45 WBC 4.0 RBC 2.05 L Hgb 6.2 L* Hct 18.9 L* MCV 92.5 MCH 30.5 MCHC 33.0 RDW 15.2 Plt Count 181 MPV 10.2 PT 12.3 H INR 1.2 APTT 28.4 Blood Type O Positive Antibody Screen Negative MTS Gel Crossmatch 02/17/18 07:09 WBC RBC Hgb Hct MCV MCH MCHC RDW Plt Count MPV PT INR APTT Blood Type Antibody Screen MTS Gel Crossmatch See Detail <Will Lewis - Last Filed: 02/17/18 12:30> - Labs CBC & Chem 7: 02/17/18 03:00 Labs: Laboratory Results - last 24 hr 02/17/18 02/17/18 02/17/18 03:00 03:00 03:45 WBC 4.0 RBC 2.05 L Hgb 6.2 L* Hct 18.9 L* MCV 92.5 MCH 30.5 MCHC 33.0 RDW 15.2 Plt Count 181 MPV 10.2 PT 12.3 H INR 1.2 APTT 28.4 POC Glucose Blood Type O Positive Antibody Screen Negative MTS Gel Crossmatch 02/17/18 02/17/18 02/17/18 07:09 11:57 16:48 WBC RBC Hgb Hct MCV MCH MCHC RDW Plt Count MPV PT INR APTT POC Glucose 93 88 Blood Type Antibody Screen MTS Gel Crossmatch See Detail <Fabi Mercado - Last Filed: 02/17/18 16:54> Assessment and Plan - Plan - Anemia, this is chronic on acute- Likely anemia of chronic dz. was brought to the emergency department for the evaluation abnormal lab results. hgb on admission is 6.2. He had recent hospital visit on 12/24/17 where he was treated for anemia of chronic disease and was transfused couple units of packed red blood cell The patient is non verbal, only nods yes or no, not able to provide any history, according to EMR, this is base line for pt. No bleeding reported by staff. - dysphagia with feeding tube placement - past medical history significant for diabetes mellitus, hypertension, chronic anemia, chronic pain, hemiparesis secondary to right-sided CVA, CHF, psychiatric disorder, depression and hyperlipidemia Plan: - Ok to resume TF - Tried calling brother "Roberto marino to discuss plan Possible EGD/colonoscopy but no answer, left a voice message - CT of A/P w/out contrast - Monitor hh - Transfuse as needed, 2 units ordered - Supportive care - Will need consents prior to any scopes, will await to hear from family - Pt seen and examined by Dr. Mercado and myself and this note is written on her behalf. <Will Lewis - Last Filed: 02/17/18 12:30> - Attending Attestation seen, examined agree with above <Fabi Mercado - Last Filed: 02/17/18 16:54>
[2018-02-17] MEDS: Carvedilol 12.5 MG Tablet G-TUBE SCH ×2 (13:29→20:37)
[2018-02-17] MEDS: levETIRAcetam 500 MG Tablet PO SCH ×2 (13:29→17:12)
[2018-02-17] MEDS ORDERED: Diatrizoate Meglum/Diatrizoate Sod Liq 9 ML UDC PO ONE (20:00)
[2018-02-17 20:38] LABS: Baso % (Auto) 0.4 % (0.0-2.0); Eos # (Auto) 0.1 th/mm3 (0.0-0.4); Eos % (Auto) 2.9 % (0.0-4.0); Hematocrit 22.7 % (39.0-51.0); Hemoglobin 7.9 gm/dL (13.0-17.0); Lymph # (Auto) 0.9 th/mm3 (1.0-4.8); Lymph % (Auto) 21.2 % (9.0-44.0); Mean Corpuscular HGB Conc 34.7 % (32.0-36.0); Mean Corpuscular Hemoglobin 30.2 pg (27.0-34.0); Mean Platelet Volume 9.9 fL (7.0-11.0); Mono # (Auto) 0.4 th/mm3 (0.0-0.9); Mono % (Auto) 8.8 % (0.0-8.0); Neut # (Auto) 2.8 th/mm3 (1.8-7.7); Neut % (Auto) 66.7 % (16.0-70.0); Platelet Count 142 th/mm3 (150-450); Red Cell Distribution Width 16.4 % (11.6-17.2); White Blood Count 4.1 th/mm3 (4.0-11.0)
[2018-02-17] MEDS: Ascorbic Acid 500 MG Tablet PO SCH (20:38)
[2018-02-17] MEDS: Dextrose 50% in Water 50 ML Vial IV.PUSH PRN (20:55)
[2018-02-17 20:56] LABS: Albumin 2.8 g/dL (3.4-5.0); Anion Gap 9 meq/L (5-15); Aspartate Aminotransferase 27 U/L (15-37); Blood Urea Nitrogen 28 mg/dL (7-18); Calcium 7.8 mg/dL (8.5-10.1); Carbon Dioxide 27.9 meq/L (21.0-32.0); Chloride 102 meq/L (98-107); Glomerular Filtration Rate 84 mL/min (>89); Glucose,Random 66 mg/dL (74-106); Potassium 3.1 meq/L (3.5-5.1)
[2018-02-17 21:03] LABS: Sodium 139 meq/L (136-145)
[2018-02-17 21:22] LABS: % Iron Saturation 27.3 % (20-50); Alanine Aminotransferase 22 U/L (12-78); Alkaline Phosphatase 131 U/L (45-117); Iron 62 mcg/dL (65-175); Total Iron Binding Capacity 227 mcg/dL (250-450); Total Protein 7.6 g/dL (6.4-8.2); Vitamin B12 1238 pg/mL (193-986)
--- NOTE | 2018-02-17 22:50 | CT ---
EXAM DATE: 02/17/2018 10:40 PM EDT AGE/SEX: 47 years / Male INDICATIONS: Blood in stool CLINICAL DATA: This is the patient's initial encounter. Patient reports that signs and symptoms have been present for 1 day and indicates a pain score of Nonresponsive. MEDICAL/SURGICAL HISTORY: Renal disease, end stage. Diabetes. Cerebrovascular disease. Hemip legia None. RADIATION DOSE: 14.54 CTDI (mGy) COMPARISON: [facility] [place], CT ABDOMEN & PELVIS W/O CONTRAST, 12/01/2017. . TECHNIQUE: Multiple contiguous axial images were obtained through the abdomen. Images were obtained using multiple row detector helical technique. Using automated exposure control and adjustment of the mA and/or kV according to patient size, radiation dose was kept as low as reasonably achievable to o btain optimal diagnostic quality images. DICOM format image data is available electronically for rev iew and comparison. FINDINGS: Lower Lungs: Small bilateral pleural effusions and patchy bilateral lower lung parenchymal opacity. T he pulmonary opacity is less prominent than on the comparison study of December 01, 2017. Liver: Within normal limits. Spleen: Mildly enlarged measuring 13 cm in craniocaudal dimension. Pancreas: Unremarkable without mass or calcification. Kidneys: Normal in size and shape. No evidence of mass or hydronephrosis. Adrenal Glands: Calcified. Unchanged. Aorta: The aorta and proximal iliac vessels are grossly unremarkable without aneurysmal dilation. Bowel/Mesentery: Gastrostomy tube is in place. No evidence of bowel dilatation. Colon is normal in c onfiguration. Appendix within normal limits. Abdominal Wall: Intact. Superficial soft tissue edema noted anteriorly on the left Retroperitoneum: No evidence of adenopathy in the retrocrural, para-aortic, or deep pelvic regions. Bladder: Contours are smooth. Reproductive Organs: No abnormal masses or calcifications seen. Inguinal: Enlarged lymph nodes bilaterally with the largest on the right measuring 3.1 x 2.0 cm and the largest on the left measuring 2.2 x 2.0 cm. No significant interval change. Bony Structures: Prominent heterotopic ossification about the left hip again seen. Bilateral hip therese nt effusions noted. CONCLUSION: 1. Small bilateral pleural effusions and bilateral lower lung opacity again seen. 2. Mild splenomegaly again seen. 3. Gastrostomy tube in place. 4. No evidence of bowel dilatation. 5. Heterotopic ossification about the left hip again seen. 6. Calcified adrenal glands again seen. 7. Enlarged inguinal lymph nodes again seen. Electronically signed by: Дмитрий Babcock MD 02/17/2018 10:48 PM EDT
[2018-02-18] MEDS: Insulin Detemir Inj 1,000 UNIT/10 ML Vial SQ SCH ×2 (01:03→11:01)
[2018-02-18] MEDS: Insulin NovoLOG Aspart Correctional Sugar Inj SQ SCH ×5 (01:03→21:00)
[2018-02-18] MEDS ORDERED: Dextrose 5% in Water Inj 1,000 ML IV.CONT SCH (04:45)
[2018-02-18] MEDS ORDERED: Dextrose 5%/NaCl 0.9% Inj 1,000 ML IV.CONT SCH (05:00)
[2018-02-18 06:50] LABS: Hematocrit 22.4 % (39.0-51.0); Hemoglobin 7.7 gm/dL (13.0-17.0)
[2018-02-18 07:27] LABS: Albumin 2.7 g/dL (3.4-5.0); Anion Gap 7 meq/L (5-15); Aspartate Aminotransferase 25 U/L (15-37); Blood Urea Nitrogen 24 mg/dL (7-18); Carbon Dioxide 29.8 meq/L (21.0-32.0); Chloride 103 meq/L (98-107); Glomerular Filtration Rate 79 mL/min (>89); Glucose,Random 71 mg/dL (74-106); Sodium 140 meq/L (136-145)
[2018-02-18 07:28] LABS: Alanine Aminotransferase 19 U/L (12-78)
[2018-02-18 07:30] LABS: Alkaline Phosphatase 120 U/L (45-117); Total Protein 7.3 g/dL (6.4-8.2)
[2018-02-18] MEDS ORDERED: Potassium Chloride 25 MEQ Effervescent Tablet G-TUBE ONE (07:46)
[2018-02-18] MEDS ORDERED: Potassium Chlor 20 mEq Premix 20 MEQ/100 ML PIGGYBACK IV.SIG ONE (07:48)
--- NOTE | 2018-02-18 07:48 | P.PN ---
Subjective Interval history: 47-year-old male with a past medical history significant for diabetes mellitus, hypertension, chronic anemia, chronic pain, hemiparesis secondary to right- sided CVA, CHF, dysphagia with feeding tube placement, psychiatric disorder, depression and hyperlipidemia who was brought to the emergency department for the evaluation abnormal lab results. The patient had a CBC done as an outpatient and it showed a hemoglobin less than 7.0. He was recently admitted to the hospital on 12/24/17 where he was treated for anemia of chronic inflammation and was transfused couple units of packed red blood cell with consultation to hematology. The patient does not participate in the exam and will not answer questions. He will open his eyes when asked to and shakes his head yes or no but remains nonverbal. According to previous neurology notes from the patient' s prior hospital stay this is baseline for the patient. 02/18 - Patient encountered lying in bed, asleep. Will open his eyes to voice but nonverbal. Shakes his head no to ROS questions. Afebrile. VSS except for elevated BP. Physical Exam Vital signs: Vital Signs 02/17/18 07:49 02/17/18 08:05 02/17/18 11:51 Temperature 98.6 F 98.7 F 98.2 F Pulse Rate 80 79 Respiratory Rate 20 18 Blood Pressure 158/86 H 181/100 H Pulse Oximetry 100 02/17/18 13:42 02/17/18 13:45 02/17/18 14:01 Temperature 98.3 F 98.3 F Pulse Rate 79 79 80 Respiratory Rate 18 18 18 Blood Pressure 162/93 H 162/93 H 160/72 H Pulse Oximetry 95 95 98 02/17/18 14:24 02/17/18 15:00 02/17/18 19:16 Temperature 98 F 98.1 F 98.4 F Pulse Rate 77 79 70 Respiratory Rate 18 20 18 Blood Pressure 160/72 H 176/90 H 152/65 H Pulse Oximetry 95 95 96 02/17/18 20:00 02/18/18 00:00 Temperature 98 F 97.9 F Pulse Rate 80 76 Respiratory Rate 18 18 Blood Pressure 185/91 H 161/83 H Pulse Oximetry 93 L 100 Intake & Output 02/17/18 02/18/18 02/18/18 18:59 06:59 18:59 Intake Total 400 / 400 Balance 400 / 400 Weight 89.5 kg Intake: Intake (Blood Product) Amt 400 / 400 Rbc As-3 Leukoreduced Unit 400 / 400 [id number] Rbc As-3 Leukoreduced Unit 0 / 0 [id number] Other: # Voids 1 1 Date of Last Bowel Movement 02/17/18 02/17/18 # Bowel Movements 1 Narrative: GENERAL: WDWN male, INAD. Awakens to voice. Does not follow commands. Nonverbal. SKIN: Warm and dry. No generalized rash. +pressure ulcer right 5th digit. HEAD: Atraumatic. Normocephalic. EYES: Pupils equal and round. No scleral icterus. No injection or drainage. ENT: No nasal bleeding or discharge. NECK: Trachea midline. CARDIOVASCULAR: Regular rate and rhythm. RESPIRATORY: No accessory muscle use. Poor effort. Clear to auscultation anteriorly. Breath sounds equal bilaterally. GASTROINTESTINAL: Abdomen soft, non-tender, nondistended. +PEG tube in place, site C/D/I MUSCULOSKELETAL: Extremities without clubbing, cyanosis. +diffuse edema noted RUE. NEUROLOGICAL: Awakens to voice. Nonverbal. No obvious cranial nerve deficits. Unable to assess motor function, patient not following commands. Nonverbal. PSYCHIATRIC: Calm. Results - Labs CBC & Chem 7: 02/18/18 06:25 02/18/18 06:25 Laboratory Results - last 24 hr 02/17/18 02/17/18 02/17/18 07:09 11:57 16:48 WBC RBC Hgb Hct MCV MCH MCHC RDW Plt Count MPV Neut % (Auto) Lymph % (Auto) Bennett % (Auto) Eos % (Auto) Baso % (Auto) Neut # (Auto) Lymph # (Auto) Bennett # (Auto) Eos # (Auto) Baso # (Auto) WBC Differential Differential Comment Sodium Potassium Chloride Carbon Dioxide Anion Gap BUN Creatinine Estimated GFR POC Glucose 93 88 Random Glucose Calcium Iron TIBC % Saturation Total Bilirubin AST ALT Alkaline Phosphatase Total Protein Albumin Vitamin B12 Folate MTS Gel Crossmatch See Detail 02/17/18 02/17/18 02/17/18 19:08 19:08 20:49 WBC 4.1 RBC 2.60 L Hgb 7.9 L Hct 22.7 L MCV 87.0 D MCH 30.2 MCHC 34.7 RDW 16.4 Plt Count 142 L MPV 9.9 Neut % (Auto) 66.7 Lymph % (Auto) 21.2 Bennett % (Auto) 8.8 H Eos % (Auto) 2.9 Baso % (Auto) 0.4 Neut # (Auto) 2.8 Lymph # (Auto) 0.9 L Bennett # (Auto) 0.4 Eos # (Auto) 0.1 Baso # (Auto) 0.0 WBC Differential . Differential Comment Auto diff final Sodium 139 Potassium 3.1 L Chloride 102 Carbon Dioxide 27.9 Anion Gap 9 BUN 28 H Creatinine 1.13 Estimated GFR 84 L POC Glucose 69 Random Glucose 66 L Calcium 7.8 L Iron 62 L TIBC 227 L % Saturation 27.3 Total Bilirubin 0.8 AST 27 ALT 22 Alkaline Phosphatase 131 H Total Protein 7.6 Albumin 2.8 L Vitamin B12 1238 H Folate Greater than 20.0 H MTS Gel Crossmatch 02/17/18 02/18/18 02/18/18 21:17 01:42 03:59 WBC RBC Hgb Hct MCV MCH MCHC RDW Plt Count MPV Neut % (Auto) Lymph % (Auto) Bennett % (Auto) Eos % (Auto) Baso % (Auto) Neut # (Auto) Lymph # (Auto) Bennett # (Auto) Eos # (Auto) Baso # (Auto) WBC Differential Differential Comment Sodium Potassium Chloride Carbon Dioxide Anion Gap BUN Creatinine Estimated GFR POC Glucose 156 H 79 69 Random Glucose Calcium Iron TIBC % Saturation Total Bilirubin AST ALT Alkaline Phosphatase Total Protein Albumin Vitamin B12 Folate MTS Gel Crossmatch 02/18/18 02/18/18 06:25 06:25 WBC RBC Hgb 7.7 L Hct 22.4 L MCV MCH MCHC RDW Plt Count MPV Neut % (Auto) Lymph % (Auto) Bennett % (Auto) Eos % (Auto) Baso % (Auto) Neut # (Auto) Lymph # (Auto) Bennett # (Auto) Eos # (Auto) Baso # (Auto) WBC Differential Differential Comment Sodium 140 Potassium 3.0 L Chloride 103 Carbon Dioxide 29.8 Anion Gap 7 BUN 24 H Creatinine 1.20 Estimated GFR 79 L POC Glucose Random Glucose 71 L Calcium 8.0 L Iron TIBC % Saturation Total Bilirubin 0.6 AST 25 ALT 19 Alkaline Phosphatase 120 H Total Protein 7.3 Albumin 2.7 L Vitamin B12 Folate MTS Gel Crossmatch - Imaging Impressions Abdomen/Pelvis CT 02/17/18 00:00 CONCLUSION: 1. Small bilateral pleural effusions and bilateral lower lung opacity again seen. 2. Mild splenomegaly again seen. 3. Gastrostomy tube in place. 4. No evidence of bowel dilatation. 5. Heterotopic ossification about the left hip again seen. 6. Calcified adrenal glands again seen. 7. Enlarged inguinal lymph nodes again seen. - Procedures none Assessment and Plan - Assessment (1) Acute on chronic anemia Code(s): D64.9 - Anemia, unspecified Status: Acute (2) Anemia of chronic disorder Code(s): D63.8 - Anemia in other chronic diseases classified elsewhere Status : Acute - Plan 47 year-old man with diabetes mellitus, hypertension, chronic anemia, chronic pain, 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 The patient had a CBC done as an outpatient and it showed a hemoglobin less than 7.0. Acute on chronic anemia Patient was previously seen by hematology on December 24, 2017 and at the time his anemia was felt to be anemia of chronic inflammation due to decreased red blood cell production and functional iron deficiency. However that hospitalization there was no suspected underlying bone marrow disorder, and patient had no evidence to suggest iron deficiency, occult blood loss. He responded well to blood transfusion Hgb 6.2 s/p transfusion 2units PRBCs. Hgb improved to 7.8 iron studies indicative of anemia of chronic disease -GI following, plan for panendoscopy once able to obtain consent -Hematology consultation as needed -monitor H/H -continue on Protonix History of CVA with left-sided hemiparesis Physical therapy consulted ok to resume TF per GI -Master Rigger consulted Diabetes mellitus -continue on accucheks and ISS -hold home Levemir due to low BS Hypertension/hyperlipidemia -Continue on home medications Hypokalemia K 3.0 Mag 2.3 -repletion ordered -repeat BMP in am to monitor response Seizure d/o -Continue on home dose of Keppra -seizure precautions -monitor for any seizure activity Psychiatric disorder/depression -Continue on home medications RUE edema -obtain doppler US RUE to r/o DVT DVT prophylaxis: Bilateral SCDs Discussed Condition With: patient, nursing staff, CM, Dr. Fritze Discharge Planning: Not ready for discharge. Workup in progress. D/C pending GI clearance.
[2018-02-18 07:58] LABS: Baso % (Auto) 0.7 % (0.0-2.0); Eos # (Auto) 0.1 th/mm3 (0.0-0.4); Eos % (Auto) 3.6 % (0.0-4.0); Hematocrit 22.3 % (39.0-51.0); Hemoglobin 7.8 gm/dL (13.0-17.0); Lymph # (Auto) 0.9 th/mm3 (1.0-4.8); Lymph % (Auto) 22.5 % (9.0-44.0); Mean Corpuscular HGB Conc 34.8 % (32.0-36.0); Mean Corpuscular Hemoglobin 30.8 pg (27.0-34.0); Mean Corpuscular Volume 88.6 fL (80.0-100.0); Mean Platelet Volume 9.5 fL (7.0-11.0); Mono # (Auto) 0.4 th/mm3 (0.0-0.9); Mono % (Auto) 10.5 % (0.0-8.0); Neut # (Auto) 2.5 th/mm3 (1.8-7.7); Neut % (Auto) 62.7 % (16.0-70.0); Platelet Count 173 th/mm3 (150-450); Red Blood Count 2.51 mil/mm3 (4.50-5.90); Red Cell Distribution Width 16.7 % (11.6-17.2)
[2018-02-18] MEDS: Senna/Docusate Sodium 8.6/50 MG Tablet PO SCH ×2 (08:45→22:59)
[2018-02-18] MEDS: levETIRAcetam 500 MG Tablet PO SCH ×3 (08:45→17:24)
[2018-02-18] MEDS: Carvedilol 12.5 MG Tablet G-TUBE SCH ×2 (08:45→20:02)
[2018-02-18] MEDS: Ascorbic Acid 500 MG Tablet PO SCH ×2 (08:45→20:02)
[2018-02-18] MEDS ORDERED: Escitalopram 10 MG Tablet PO SCH (09:00)
--- NOTE | 2018-02-18 11:36 | P.PNGI ---
Subjective Interval history: Pt resting in bed, nonverbal. Eyes open. Discussed with RN, states one BM overnight with no reports of blood or black, tarry stools. <RomainAileen atkinson - Last Filed: 02/18/18 11:38> Physical Exam Vital signs: Vital Signs 02/17/18 11:51 02/17/18 13:42 02/17/18 13:45 Temperature 98.2 F 98.3 F 98.3 F Pulse Rate 79 79 79 Respiratory Rate 18 18 18 Blood Pressure 181/100 H 162/93 H 162/93 H Pulse Oximetry 100 95 95 02/17/18 14:01 02/17/18 14:24 02/17/18 15:00 Temperature 98 F 98.1 F Pulse Rate 80 77 79 Respiratory Rate 18 18 20 Blood Pressure 160/72 H 160/72 H 176/90 H Pulse Oximetry 98 95 95 02/17/18 19:16 02/17/18 20:00 02/18/18 00:00 Temperature 98.4 F 98 F 97.9 F Pulse Rate 70 80 76 Respiratory Rate 18 18 18 Blood Pressure 152/65 H 185/91 H 161/83 H Pulse Oximetry 96 93 L 100 02/18/18 04:00 02/18/18 08:00 Temperature 97.8 F 98.7 F Pulse Rate 84 83 Respiratory Rate 18 19 Blood Pressure 165/80 H 167/91 H Pulse Oximetry 93 L 95 Intake & Output 02/17/18 02/18/18 02/18/18 18:59 06:59 18:59 Intake Total 400 / 400 Output Total Balance 400 / 400 -1 / -1 Weight 89.5 kg Intake: Intake (Blood Product) Amt 400 / 400 Rbc As-3 Leukoreduced Unit 400 / 400 [id number] Rbc As-3 Leukoreduced Unit 0 / 0 [id number] Output: Stool Other: # Voids 1 2 Date of Last Bowel Movement 02/17/18 02/18/18 # Bowel Movements 1 - Constitutional no acute distress - Routine HEENT Exam Head: Present: normocephalic, atraumatic - Routine Respiratory Exam Absent: accessory muscle use - Routine Abdominal Exam Present: soft, normoactive bowel sounds, Agustin's sign. Absent: distended Comments: G tube clamped - Routine Skin Exam Present: dry, warm - Routine Neurological Exam Eyes open spontaneously, nonverbal <RomaindemetrioAileen - Last Filed: 02/18/18 11:38> Vital signs: Vital Signs 02/17/18 20:00 02/18/18 00:00 02/18/18 04:00 Temperature 98 F 97.9 F 97.8 F Pulse Rate 80 76 84 Respiratory Rate 18 18 18 Blood Pressure 185/91 H 161/83 H 165/80 H Pulse Oximetry 93 L 100 93 L 02/18/18 08:00 02/18/18 15:51 Temperature 98.7 F 98.2 F Pulse Rate 83 62 Respiratory Rate 19 Blood Pressure 167/91 H 178/88 H Pulse Oximetry 95 97 Intake & Output 02/18/18 02/18/18 02/19/18 06:59 18:59 06:59 Intake Total 0 / 0 Output Total 304 / 304 Balance -1 / -1 -304 / -304 Weight 89.5 kg Intake: Oral 0 / 0 Output: Stool 4 / 4 Urine/Stool Mix 300 / 300 Other: # Voids 2 Date of Last Bowel Movement 02/18/18 02/18/18 <Sean West - Last Filed: 02/18/18 19:34> Results - Labs CBC & Chem 7: 02/18/18 06:25 02/18/18 06:25 Laboratory Results - last 24 hr 02/17/18 02/17/18 02/17/18 07:09 11:57 16:48 WBC RBC Hgb Hct MCV MCH MCHC RDW Plt Count MPV Neut % (Auto) Lymph % (Auto) Todd % (Auto) Eos % (Auto) Baso % (Auto) Neut # (Auto) Lymph # (Auto) Todd # (Auto) Eos # (Auto) Baso # (Auto) WBC Differential Differential Comment Sodium Potassium Chloride Carbon Dioxide Anion Gap BUN Creatinine Estimated GFR POC Glucose 93 88 Random Glucose Calcium Magnesium Iron TIBC % Saturation Total Bilirubin AST ALT Alkaline Phosphatase Total Protein Albumin Vitamin B12 Folate MTS Gel Crossmatch See Detail 02/17/18 02/17/18 02/17/18 19:08 19:08 20:49 WBC 4.1 RBC 2.60 L Hgb 7.9 L Hct 22.7 L MCV 87.0 D MCH 30.2 MCHC 34.7 RDW 16.4 Plt Count 142 L MPV 9.9 Neut % (Auto) 66.7 Lymph % (Auto) 21.2 Todd % (Auto) 8.8 H Eos % (Auto) 2.9 Baso % (Auto) 0.4 Neut # (Auto) 2.8 Lymph # (Auto) 0.9 L Todd # (Auto) 0.4 Eos # (Auto) 0.1 Baso # (Auto) 0.0 WBC Differential . Differential Comment Auto diff final Sodium 139 Potassium 3.1 L Chloride 102 Carbon Dioxide 27.9 Anion Gap 9 BUN 28 H Creatinine 1.13 Estimated GFR 84 L POC Glucose 69 Random Glucose 66 L Calcium 7.8 L Magnesium Iron 62 L TIBC 227 L % Saturation 27.3 Total Bilirubin 0.8 AST 27 ALT 22 Alkaline Phosphatase 131 H Total Protein 7.6 Albumin 2.8 L Vitamin B12 1238 H Folate Greater than 20.0 H MTS Gel Crossmatch 02/17/18 02/18/18 02/18/18 21:17 01:42 03:59 WBC RBC Hgb Hct MCV MCH MCHC RDW Plt Count MPV Neut % (Auto) Lymph % (Auto) Todd % (Auto) Eos % (Auto) Baso % (Auto) Neut # (Auto) Lymph # (Auto) Todd # (Auto) Eos # (Auto) Baso # (Auto) WBC Differential Differential Comment Sodium Potassium Chloride Carbon Dioxide Anion Gap BUN Creatinine Estimated GFR POC Glucose 156 H 79 69 Random Glucose Calcium Magnesium Iron TIBC % Saturation Total Bilirubin AST ALT Alkaline Phosphatase Total Protein Albumin Vitamin B12 Folate MTS Gel Crossmatch 02/18/18 02/18/18 02/18/18 06:25 06:25 06:25 WBC 4.0 RBC 2.51 L Hgb 7.7 L 7.8 L Hct 22.4 L 22.3 L MCV 88.6 MCH 30.8 MCHC 34.8 RDW 16.7 Plt Count 173 MPV 9.5 Neut % (Auto) 62.7 Lymph % (Auto) 22.5 Todd % (Auto) 10.5 H Eos % (Auto) 3.6 Baso % (Auto) 0.7 Neut # (Auto) 2.5 Lymph # (Auto) 0.9 L Todd # (Auto) 0.4 Eos # (Auto) 0.1 Baso # (Auto) 0.0 WBC Differential . Differential Comment Auto diff final Sodium 140 Potassium 3.0 L Chloride 103 Carbon Dioxide 29.8 Anion Gap 7 BUN 24 H Creatinine 1.20 Estimated GFR 79 L POC Glucose Random Glucose 71 L Calcium 8.0 L Magnesium Iron TIBC % Saturation Total Bilirubin 0.6 AST 25 ALT 19 Alkaline Phosphatase 120 H Total Protein 7.3 Albumin 2.7 L Vitamin B12 Folate MTS Gel Crossmatch 02/18/18 02/18/18 06:25 07:44 WBC RBC Hgb Hct MCV MCH MCHC RDW Plt Count MPV Neut % (Auto) Lymph % (Auto) Todd % (Auto) Eos % (Auto) Baso % (Auto) Neut # (Auto) Lymph # (Auto) Todd # (Auto) Eos # (Auto) Baso # (Auto) WBC Differential Differential Comment Sodium Potassium Chloride Carbon Dioxide Anion Gap BUN Creatinine Estimated GFR POC Glucose 89 Random Glucose Calcium Magnesium 2.3 Iron TIBC % Saturation Total Bilirubin AST ALT Alkaline Phosphatase Total Protein Albumin Vitamin B12 Folate MTS Gel Crossmatch - Imaging Impressions Abdomen/Pelvis CT 02/17/18 00:00 CONCLUSION: 1. Small bilateral pleural effusions and bilateral lower lung opacity again seen. 2. Mild splenomegaly again seen. 3. Gastrostomy tube in place. 4. No evidence of bowel dilatation. 5. Heterotopic ossification about the left hip again seen. 6. Calcified adrenal glands again seen. 7. Enlarged inguinal lymph nodes again seen. - Procedures none <Aileen Rees - Last Filed: 02/18/18 11:38> - Labs CBC & Chem 7: 02/18/18 06:25 02/18/18 06:25 Laboratory Results - last 24 hr 02/17/18 02/17/18 02/17/18 19:08 19:08 20:49 WBC 4.1 RBC 2.60 L Hgb 7.9 L Hct 22.7 L MCV 87.0 D MCH 30.2 MCHC 34.7 RDW 16.4 Plt Count 142 L MPV 9.9 Neut % (Auto) 66.7 Lymph % (Auto) 21.2 Todd % (Auto) 8.8 H Eos % (Auto) 2.9 Baso % (Auto) 0.4 Neut # (Auto) 2.8 Lymph # (Auto) 0.9 L Todd # (Auto) 0.4 Eos # (Auto) 0.1 Baso # (Auto) 0.0 WBC Differential . Differential Comment Auto diff final Sodium 139 Potassium 3.1 L Chloride 102 Carbon Dioxide 27.9 Anion Gap 9 BUN 28 H Creatinine 1.13 Estimated GFR 84 L POC Glucose 69 Random Glucose 66 L Calcium 7.8 L Magnesium Iron 62 L TIBC 227 L % Saturation 27.3 Total Bilirubin 0.8 AST 27 ALT 22 Alkaline Phosphatase 131 H Total Protein 7.6 Albumin 2.8 L Vitamin B12 1238 H Folate Greater than 20.0 H 02/17/18 02/18/18 02/18/18 21:17 01:42 03:59 WBC RBC Hgb Hct MCV MCH MCHC RDW Plt Count MPV Neut % (Auto) Lymph % (Auto) Todd % (Auto) Eos % (Auto) Baso % (Auto) Neut # (Auto) Lymph # (Auto) Todd # (Auto) Eos # (Auto) Baso # (Auto) WBC Differential Differential Comment Sodium Potassium Chloride Carbon Dioxide Anion Gap BUN Creatinine Estimated GFR POC Glucose 156 H 79 69 Random Glucose Calcium Magnesium Iron TIBC % Saturation Total Bilirubin AST ALT Alkaline Phosphatase Total Protein Albumin Vitamin B12 Folate 02/18/18 02/18/18 02/18/18 06:25 06:25 06:25 WBC 4.0 RBC 2.51 L Hgb 7.7 L 7.8 L Hct 22.4 L 22.3 L MCV 88.6 MCH 30.8 MCHC 34.8 RDW 16.7 Plt Count 173 MPV 9.5 Neut % (Auto) 62.7 Lymph % (Auto) 22.5 Todd % (Auto) 10.5 H Eos % (Auto) 3.6 Baso % (Auto) 0.7 Neut # (Auto) 2.5 Lymph # (Auto) 0.9 L Todd # (Auto) 0.4 Eos # (Auto) 0.1 Baso # (Auto) 0.0 WBC Differential . Differential Comment Auto diff final Sodium 140 Potassium 3.0 L Chloride 103 Carbon Dioxide 29.8 Anion Gap 7 BUN 24 H Creatinine 1.20 Estimated GFR 79 L POC Glucose Random Glucose 71 L Calcium 8.0 L Magnesium Iron TIBC % Saturation Total Bilirubin 0.6 AST 25 ALT 19 Alkaline Phosphatase 120 H Total Protein 7.3 Albumin 2.7 L Vitamin B12 Folate 02/18/18 02/18/18 02/18/18 06:25 07:44 11:52 WBC RBC Hgb Hct MCV MCH MCHC RDW Plt Count MPV Neut % (Auto) Lymph % (Auto) Todd % (Auto) Eos % (Auto) Baso % (Auto) Neut # (Auto) Lymph # (Auto) Todd # (Auto) Eos # (Auto) Baso # (Auto) WBC Differential Differential Comment Sodium Potassium Chloride Carbon Dioxide Anion Gap BUN Creatinine Estimated GFR POC Glucose 89 105 Random Glucose Calcium Magnesium 2.3 Iron TIBC % Saturation Total Bilirubin AST ALT Alkaline Phosphatase Total Protein Albumin Vitamin B12 Folate 02/18/18 16:42 WBC RBC Hgb Hct MCV MCH MCHC RDW Plt Count MPV Neut % (Auto) Lymph % (Auto) Todd % (Auto) Eos % (Auto) Baso % (Auto) Neut # (Auto) Lymph # (Auto) Todd # (Auto) Eos # (Auto) Baso # (Auto) WBC Differential Differential Comment Sodium Potassium Chloride Carbon Dioxide Anion Gap BUN Creatinine Estimated GFR POC Glucose 97 Random Glucose Calcium Magnesium Iron TIBC % Saturation Total Bilirubin AST ALT Alkaline Phosphatase Total Protein Albumin Vitamin B12 Folate - Imaging Impressions Abdomen/Pelvis CT 02/17/18 00:00 CONCLUSION: 1. Small bilateral pleural effusions and bilateral lower lung opacity again seen. 2. Mild splenomegaly again seen. 3. Gastrostomy tube in place. 4. No evidence of bowel dilatation. 5. Heterotopic ossification about the left hip again seen. 6. Calcified adrenal glands again seen. 7. Enlarged inguinal lymph nodes again seen. Venous Doppler Study 02/18/18 00:00 CONCLUSION: 1. No DVT or SVT. 2. 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 This measures 3.6 x 2.2 x 2.2 cm and is predominantly thrombosed with a small, 6 x 9 mm patent component showing biphasic flow. <Sean West - Last Filed: 02/18/18 19:34> Assessment and Plan - Plan Assessment: - Anemia- normocytic, normochromic- Pt was recently evaluated by our service for same in January of this year EGD (January 16) --> Esophagus appeared normal. 3 cm hiatal hernia. G tube was found in the gastric body. Normal duodenal mucosa in the bulb and second portion of the duodenum. Colonoscopy (January 18) Severe diverticulosis noted in the sigmoid colon, limited exam to 30 cm for anal verge. Barium enema (01/19) enema Extremely limited exam secondary to inability to achieve a rectocele as well as the patient's inability to complete the exam. Evaluation of the rectum demonstrated no evidence of mass or filling defect. Pt was advised to have repeat colonoscopy outpatient and capsule endoscopy. Pt currently with no reports of GIB (02/18) Pt nonverbal. Discussed with RN, pt had a BM last night with no noticeable blood or black, tarry stools. H/H stable since transfusion. Given recent GI work up and no obvious GIB, no indication for EGD and colonoscopy at this time. Pt has had previous work up by hematology- noted to have acute on chronic anemia- Dr. 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 Known chronic infection Plan: No indication for GI procedures at this time, pt had recent GI work up and has had no obvious GIB OK for TF Monitor H/H Recommend capsule endoscopy outpatient GI will sign off, please reconsult as needed Have pt follow up with GI after DC Pt has been seen and examined by myself and Dr. West and this note is written on his behalf <Aileen Rees - Last Filed: 02/18/18 11:38> - Plan patient was seen and examined, agree with above note, we will FU as needed, capsule endoscopy as outpatient. <Sean West - Last Filed: 02/18/18 19:34>
[2018-02-18] MEDS ORDERED: Potassium Chlor 10 mEq Premix 10 MEQ/100 ML PIGGYBACK IV.SIG SCH (12:00)
[2018-02-18] MEDS ORDERED: Potassium Chloride 25 MEQ Effervescent Tablet PO ONE (13:17)
--- NOTE | 2018-02-18 15:53 | P.PNWCN ---
Wound Care Nurse Consult Description: Received consult from Doctor Álvarez for evaluation fo R buttock skin breakdown on admission. Communicated with: JENNI BERGER floating to [place] today and Whit LYNCH for [facility] Recommendation: 1.Please cleanse buttock area with remedy barrier wipes and pat dry. Apply Calazime skin protectant paste to bilateral buttocks and gluteal cleft. Leave areas open to air. 2. Consult podiatry for bilateral feet wounds. 3. Cleanse bilateral feet wounds with normal saline or wound cleanser and pat dry. Apply Maxorb extra AG to wound bed on L lateral foot and cover with Optifoam gentle border. Change dressing every 3 days or PRN f saturated or dislodged or until podiatry has seen patient. Wound/Pressure Injury - Wound Left Foot Wound Assessment: Admission Wound Type: Traumatic Wound (Diabetic foot wound) Requested from Provider a Wound Care Consult: Yes (Tammy was seen by wound care today) Length: 8.3 (~8.3cm) Width: 3.5 (~3.5cm) Depth: 0.3 (~0.3cm) Wound Bed Appearance: [employer], Red, White Wound Bed Appearance: Lateral foot wound presents with ~30% pink tissue, ~40% red non granulation tissue and ~30% white tissue Surrounding Tissue Temperature: Warm Drainage Description: Serosanguinous Drainage Amount: Moderate Dressing Status: Changed Cleansing Solution: Saline Wound Packing Type: Alginate (maxorb II on hand) Cover Dressing: Optifoam gentle border 4x4 Wound Dressing Change Date: 02/18/18 Right Foot Wound Assessment: Admission Wound Type: Traumatic Wound (Diabetic foot wound) Requested from Provider a Wound Care Consult: Yes Length: 2 (cm) Width: 1.8 (cm) Depth: 0.1 (<0.1cm hypergranulated tissue) Wound Bed Appearance: Red Wound Bed Appearance: 100% hypergranulated tissue Drainage Description: Serosanguinous Drainage Amount: Scant Dressing Status: Changed Cleansing Solution: Saline Cover Dressing: Optifoam gentle 4x4 Wound Dressing Change Date: 02/18/18 - Additional Information Patient seen for wound to R buttock, skin breakdown on admission. Patient is known to wound care inpatient on previous admission. Patinet was turned to R side to reveal denuded skin to bilateral inner buttocks with scattered small areas of partial thickness skin loss, that are moisture and friction related.L inner gluteal cleft presents with hypertrophic scar tissue that has become moist and has opened to partial thickness skin loss. No Calazime skin protectant paste on hand. Patient was cleansed of stool with Remedy barrier wipes. Soiled ultra sorb pads were replaced. Assessed foot wounds that are full thickness and previously noted by inpatient wound care on previous admission. R lateral foot wound presents with 100% red hypergranulated tissue. Wound is dry with even well defined wound margins. L lateral foot wound is difficult to assess due to patient's tolerance of movement of L foot. With the assistance of JENNI Steward. L foot was raised for wound assessment. Wound measurements and descriptions are noted above. Cleansed bilateral feet wounds with normal saline and patted dry. Applied Maxorb II on hand to L lateral foot wound and covered with Optifoam gentle border 4x4 . Applied Optifoam gentle 4x4 to R lateral foot wound. Patient was positioned for comfort bed was lowered to safe height.
[2018-02-18] MEDS ORDERED: Vancomycin Consult Pharmacy 1 EACH OTHER SCH (16:00)
--- NOTE | 2018-02-18 16:23 | P.DIET ---
Nutritional Evaluation Type of nutrition evaluation: initial Nutrition consult regarding: Tube Feeding Nutrition screening: [facility] [place]) Subjective Subjective Comments: Pt resides at [facility]. Has PEG for nutrition. Objective - Diagnosis Anemia, Rectal Bleeding - Objective % IBW: 114 (IBW = 172#) Body Weight Used for Calculations: Actual (89.5 kg) Energy Needs - Lower Range (kCal/kg): 25 Energy Needs - Upper Range (kCal/kg): 30 Lower Limit kCal/kg (kCals): 2,238 Upper Limit kCal/kg (kCals): 2,685 Lower Limit Protein Factor (Grams per Kg): 1.0 Upper Limit Protein Factor (Grams per Kg): 1.5 Lower Protein Needs (Protein): 90 Upper Protein Needs (Protein): 134 Fluid Factor (ml/kg): 30 Estimated Fluid Needs (ml): 2,685 Dietitian Reviewed in Medical Record: Curent medications, Intake & Output, Labs , Medical history Diet Order: NPO Wound Care Note: see WOCN dated 02/18 Objective Comments: Meds include Vit C, protonix Assessment Assessment: Pt is at high nutrition risk 2' to his dependence on TFing to meet nutritional needs. To meet needs with TFing, recommend Glucerna 1.5 @ 65 mls/hr to provide 2340 kcals, 129 gms protein and 1184 mls of free water. Recommendations: Glucerna 1.5 @ 65 mls/hr goal Dietitian to Monitor: Lab values, Intake & Output, Weight change, Wound/skin status (Initiation of TF), Medical course
--- NOTE | 2018-02-18 16:48 | US ---
EXAM DATE: 02/18/2018 4:38 PM EDT AGE/SEX: 47 years / Male INDICATIONS: Right arm swelling. CLINICAL DATA: This is the patient's initial encounter. Patient reports that signs and symptoms have been present for 2 days and indicates a pain score of 9/10. MEDICAL/SURGICAL HISTORY: Hypertension. Anemia. Cerebrovascular accident. Depression. Diabetes. Hemiparesis. Hemiplegia. Hyperlipidemia. . Gastrostomy tube in place. COMPARISON: No prior exams available for comparison. FINDINGS: The vessels are compressible and augmentation response is documented. No filling defects a re seen. The flow is phasic with respiration. However, in the region of the antecubital fossa, there is a pseudoaneurysm which appears to emanate f rom the distal brachial artery measuring 3.6 x 2.2 by 2.2 cm. This is predominantly thrombosed but th ere is a small patent component with biphasic flow measuring approximately 6 x 9 mm. A PICC line is i dentified in the axillary and subclavian veins. Other: None. CONCLUSION: 1. No DVT or SVT. 2. 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 This measures 3.6 x 2.2 x 2.2 cm and is predominantly thrombosed w ith a small, 6 x 9 mm patent component showing biphasic flow. Electronically signed by: Tate Nascimento MD 02/18/2018 4:46 PM EDT
[2018-02-18] MEDS: Vancomycin Inj 1,500 MG in Sodium Chlor 0.9% Inj 500 ML IV.SIG SCH (17:37)
--- NOTE | 2018-02-18 23:02 | MB ---
cc: Hilda Vu DPM DATE: 02/18/2018 CHIEF COMPLAINT: Bilateral foot ulcerations. HISTORY OF PRESENT ILLNESS: Mr. Jackson is a 47-year-old male patient who was admitted for anemia. He has severe contracture of the left leg and does not appear to be ambulatory. The patient does not really participate in the exam or interview, only occasionally shaking his head yes or no. 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 FAMILY HISTORY: Noncontributory. SOCIAL HISTORY: Mostly unknown. MEDICATIONS: Please see list. ALLERGIES: NO KNOWN DRUG ALLERGIES. VITAL SIGNS: Temperature is 98.9, pulse 83, respiratory rate 18, blood pressure 184/95, pulse oximetry 94 liters on room air. LABORATORY DATA: White count 4.0, hemoglobin 7.8, hematocrit 22.3, platelets 173. INR 1.2. Sodium 140, potassium 3.0, carbon dioxide 29.8, BUN 24. PHYSICAL EXAMINATION: The patient has palpable DP and PT pulses. Capillary refill time is less than 3 seconds. Gross sensation cannot be evaluated at this time. The left leg is severely contracted and externally rotated at the hip. On the plantar aspect of the fifth metatarsal, there is a fibrogranular wound of approximately 7 x 2 cm. No exposed bone or tendon. No erythema. No signs of malodor or infection. On the right foot sub met 5, there is an ulceration of approximately 2 x 2 x 0 cm. No exposed bone or tendon. No erythema. No malodor. No signs of infection. ASSESSMENT: Bilateral stage II ulcerations, noninfected. PLAN: 1. Suggest continued wound care orders as per wound care nursing. 2. The patient does not require surgical intervention at this time. The wounds are stable and appear to be in line with what was evaluated on admission last month. 3. Suggest an air mattress to prevent further ulcerations and pressure wounds. Thank you for allowing me to be involved in this patient's care. We will continue to monitor him intermittently while in house. Hilda Vu DPM LMW/dania , 08:08 PM , 08:15 PM
[2018-02-19 07:46] LABS: Hematocrit 25.8 % (39.0-51.0); Hemoglobin 8.8 gm/dL (13.0-17.0); Mean Corpuscular HGB Conc 34.2 % (32.0-36.0); Mean Corpuscular Hemoglobin 30.3 pg (27.0-34.0); Mean Corpuscular Volume 88.7 fL (80.0-100.0); Mean Platelet Volume 9.5 fL (7.0-11.0); Platelet Count 189 th/mm3 (150-450); Red Cell Distribution Width 16.7 % (11.6-17.2); White Blood Count 4.1 th/mm3 (4.0-11.0)
--- NOTE | 2018-02-19 07:51 | P.PN ---
Subjective Interval history: 47-year-old male with a past medical history significant for diabetes mellitus, hypertension, chronic anemia, chronic pain, hemiparesis secondary to right- sided CVA, CHF, dysphagia with feeding tube placement, psychiatric disorder, depression and hyperlipidemia who was brought to the emergency department for the evaluation abnormal lab results. The patient had a CBC done as an outpatient and it showed a hemoglobin less than 7.0. He was recently admitted to the hospital on 12/24/17 where he was treated for anemia of chronic inflammation and was transfused couple units of packed red blood cell with consultation to hematology. The patient does not participate in the exam and will not answer questions. He will open his eyes when asked to and shakes his head yes or no but remains nonverbal. According to previous neurology notes from the patient' s prior hospital stay this is baseline for the patient. 02/18 - Patient encountered lying in bed, asleep. Will open his eyes to voice but nonverbal. Shakes his head no to ROS questions. Afebrile. VSS except for elevated BP. 02/19 -patient seen and examined. Patient awake but remains nonverbal but shakes his head no to all ROS questions. Discussed with nursing staff, no acute issues noted. VSS except for persistently elevated BP. Physical Exam Vital signs: Vital Signs 02/18/18 08:00 02/18/18 15:51 02/18/18 19:59 Temperature 98.7 F 98.2 F 98.9 F Pulse Rate 83 62 83 Respiratory Rate 19 18 Blood Pressure 167/91 H 178/88 H 184/95 H Pulse Oximetry 95 97 94 L 02/19/18 01:28 02/19/18 04:00 Temperature 99.2 F 98.2 F Pulse Rate 85 83 Respiratory Rate 16 Blood Pressure 184/97 H 180/98 H Pulse Oximetry 99 98 Intake & Output 02/18/18 02/19/18 02/19/18 18:59 06:59 18:59 Intake Total 0 / 0 546 / 546 Output Total 304 / 304 Balance -304 / -304 546 / 546 Weight 91.6 kg Intake: Oral 0 / 0 Tube Feeding 446 / 446 Tube Irrigant 100 / 100 Output: Stool 4 / 4 Urine/Stool Mix 300 / 300 Other: # Incontinent Voids 1 Date of Last Bowel Movement 02/18/18 02/18/18 # Incontinent Bowel Movements 1 Narrative: GENERAL: WDWN male, INAD. Awake lying in bed. Nonverbal. Does not follow commands. SKIN: Warm and dry. No generalized rash. +wound on plantar aspect of the 5th metatarsal. +ulceration noted on the right 5th digit. HEAD: Atraumatic. Normocephalic. EYES: Pupils equal and round. No scleral icterus. No injection or drainage. ENT: No nasal bleeding or discharge. NECK: Trachea midline. CARDIOVASCULAR: Regular rate and rhythm. RESPIRATORY: No accessory muscle use. Poor effort. Clear to auscultation anteriorly. Breath sounds equal bilaterally. GASTROINTESTINAL: Abdomen soft, non-tender, nondistended. +PEG tube in place, site C/D/I MUSCULOSKELETAL: Extremities without clubbing, cyanosis. +diffuse edema noted RUE, appears to be nontender to palpation. LLE contracted. NEUROLOGICAL: Awake. No obvious cranial nerve deficits. Unable to assess motor function, patient not following commands. Nonverbal. PSYCHIATRIC: Calm. Results - Labs CBC & Chem 7: 02/19/18 05:49 02/19/18 05:49 Laboratory Results - last 24 hr 02/18/18 02/18/18 02/18/18 06:25 06:25 07:44 WBC 4.0 RBC 2.51 L Hgb 7.8 L Hct 22.3 L MCV 88.6 MCH 30.8 MCHC 34.8 RDW 16.7 Plt Count 173 MPV 9.5 Neut % (Auto) 62.7 Lymph % (Auto) 22.5 Colbert % (Auto) 10.5 H Eos % (Auto) 3.6 Baso % (Auto) 0.7 Neut # (Auto) 2.5 Lymph # (Auto) 0.9 L Colbert # (Auto) 0.4 Eos # (Auto) 0.1 Baso # (Auto) 0.0 WBC Differential . Differential Comment Auto diff final POC Glucose 89 Magnesium 2.3 02/18/18 02/18/18 02/18/18 11:52 16:42 20:10 WBC RBC Hgb Hct MCV MCH MCHC RDW Plt Count MPV Neut % (Auto) Lymph % (Auto) Colbert % (Auto) Eos % (Auto) Baso % (Auto) Neut # (Auto) Lymph # (Auto) Colbert # (Auto) Eos # (Auto) Baso # (Auto) WBC Differential Differential Comment POC Glucose 105 97 80 Magnesium 02/19/18 05:49 WBC 4.1 RBC 2.90 L Hgb 8.8 L Hct 25.8 L MCV 88.7 MCH 30.3 MCHC 34.2 RDW 16.7 Plt Count 189 MPV 9.5 Neut % (Auto) Lymph % (Auto) Colbert % (Auto) Eos % (Auto) Baso % (Auto) Neut # (Auto) Lymph # (Auto) Colbert # (Auto) Eos # (Auto) Baso # (Auto) WBC Differential Differential Comment POC Glucose Magnesium - Imaging Impressions Venous Doppler Study 02/18/18 00:00 CONCLUSION: 1. No DVT or SVT. 2. 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 This measures 3.6 x 2.2 x 2.2 cm and is predominantly thrombosed with a small, 6 x 9 mm patent component showing biphasic flow. - Procedures none Assessment and Plan - Assessment (1) Acute on chronic anemia Code(s): D64.9 - Anemia, unspecified Status: Acute (2) Anemia of chronic disorder Code(s): D63.8 - Anemia in other chronic diseases classified elsewhere Status : Acute (3) Pseudoaneurysm of brachial artery Code(s): I72.1 - Aneurysm of artery of upper extremity Status: Acute - Plan 47 year-old man with diabetes mellitus, hypertension, chronic anemia, chronic pain, 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 The patient had a CBC done as an outpatient and it showed a hemoglobin less than 7.0. Acute on chronic anemia Patient was previously seen by hematology on December 24, 2017 and at the time his anemia was felt to be anemia of chronic inflammation due to decreased red blood cell production and functional iron deficiency. However that hospitalization there was no suspected underlying bone marrow disorder, and patient had no evidence to suggest iron deficiency, occult blood loss. He responded well to blood transfusion Hgb 6.2 s/p transfusion 2units PRBCs. Hgb improved to 8.8 iron studies indicative of anemia of chronic disease -GI following, no indication for GI procedures at this time secondary to recent GI workup and no obvious GI bleed. Recommend capsule endoscopy as outpatient. GI signed off. -Hematology consultation as needed -monitor H/H Pseudoaneurysm right brachial artery Doppler US neg for DVT but revealed a pseudoaneurysm which appears to emanate from the distal brachial artery measuring 3.6 x 2.2 by 2.2 cm. -PICC line discontinued RUE -Dr. Jensen consulted, appreciate assistance Chronic osteomyelitis, MRSA Bilateral foot wounds/ulcers -Continue on IV vancomycin with stop date 03/09 -Continue with wound care -Patient evaluated by Dr. Vu of podiatry, no surgical intervention needed at this time, appreciate recommendations History of CVA with left-sided hemiparesis Dysphagia ok to resume TF per GI -Package Crimper consulted, continue TF Glucerna 1.5 @ 65 mls/hr Diabetes mellitus -continue on accucheks and ISS -continue to hold home Levemir due to low BS Hypertension/hyperlipidemia BP persistently elevated -Continue on home antihypertensives Coreg and hydralazine. Begin Procardia XL 30 mg daily. -Continue to monitor BP and adjust treatment accordingly -Continue on Lipitor Hypokalemia, resolved s/p repletion -monitor K level as indicated Seizure d/o -Continue on home dose of Keppra -seizure precautions -monitor for any seizure activity Psychiatric disorder/depression -Continue on home medications DVT prophylaxis: Bilateral SCDs Discussed Condition With: patient, nursing staff, Dr. Snowden Discharge Planning: Not ready for discharge. Discharge pending evaluation and recommendations by vascular surgery.
[2018-02-19 08:23] LABS: Calcium 8.2 mg/dL (8.5-10.1); Carbon Dioxide 27.7 meq/L (21.0-32.0); Potassium 3.9 meq/L (3.5-5.1)
[2018-02-19] MEDS: Senna/Docusate Sodium 8.6/50 MG Tablet G-TUBE SCH ×2 (08:32→23:21)
[2018-02-19] MEDS: Ascorbic Acid 500 MG Tablet G-TUBE SCH ×2 (08:32→23:21)
[2018-02-19] MEDS: levETIRAcetam 500 MG Tablet G-TUBE SCH ×3 (08:33→18:23)
[2018-02-19] MEDS: Carvedilol 12.5 MG Tablet G-TUBE SCH ×2 (08:33→23:20)
[2018-02-19] MEDS: Escitalopram 10 MG Tablet G-TUBE SCH (08:33)
[2018-02-19] MEDS: Insulin NovoLOG Aspart Correctional Sugar Inj SQ SCH ×4 (08:34→23:20)
[2018-02-19] MEDS: Famotidine 20 MG Tablet G-TUBE SCH ×2 (08:36→23:21)
[2018-02-19] MEDS: Vancomycin Inj 1,500 MG in Sodium Chlor 0.9% Inj 500 ML IV.SIG SCH (12:11)
--- NOTE | 2018-02-19 15:33 | MB ---
cc: Amado Jensen MD DATE: 02/19/2018 REASON FOR CONSULTATION: Pseudoaneurysm of the right brachial distal artery. HISTORY OF PRESENT ILLNESS: This is a 47-year-old male with a complex medical history of diabetes mellitus, CVA, hypertension, hemiplegia and tube feeding for dysphagia, who presents to the hospital for evaluation of abnormal lab results, i.e., severe anemia. The patient was recently in the hospital for anemia and underwent transfusions. In the process of the workup, a PICC line was removed and the patient was found to have a small pseudoaneurysm of the distal right brachial artery. The question is what to do with this. PAST MEDICAL HISTORY: Complex, as above noted. PAST SURGICAL HISTORY: Multiple accesses for dialysis, placement of a feeding tube, gastrostomy. MEDICATIONS: Can be found in the record. SOCIAL HISTORY: The patient does not smoke, does not drink. Actually, he is aphasic and cannot swallow. PHYSICAL EXAMINATION: GENERAL: Reveals a 47-year-old male. HEENT: Normocephalic. No trauma to the head. Pupils equal, reactive. Extraocular muscles intact. The patient is aphasic. NECK: Bilateral carotid pulses. No bruits. CHEST: Bilateral breath sounds. HEART: Regular rhythm. ABDOMEN: Soft. Active bowel sounds. No rebound, no guarding, no masses. EXTREMITIES: Right arm is mildly swollen in the forearm area and the patient has a barely palpable bump in his antecubital fossa. This mass is tiny and measures about probably 2.5 cm. On the ultrasound, the patient has good outflow and inflow of the right arm and distal pulses are intact. ASSESSMENT AND PLAN: The patient has a very small pseudoaneurysm of the right brachial artery, which is mainly clotted off. At this point, the patient does not need any further intervention to this. A peripherally inserted central catheter line can be placed in some other side, either higher up from this antecubital fossa on the same arm or into the other arm. Either one is fine. No further vascular therapy is necessary. MD BIANCA Gama/dania , 03:01 PM , 03:08 PM
[2018-02-20] MEDS: Vancomycin Inj 1,500 MG in Sodium Chlor 0.9% Inj 500 ML IV.SIG SCH ×2 (05:05→22:38)
--- NOTE | 2018-02-20 08:00 | P.DS ---
Date of admission: 02/17/18 06:58 Primary care physician: Doroteo Mackey MD Brief History from admission: 47-year-old male with a past medical history significant for diabetes mellitus, hypertension, chronic anemia, chronic pain, hemiparesis secondary to right- sided CVA, CHF, dysphagia with feeding tube placement, psychiatric disorder, depression and hyperlipidemia who was brought to the emergency department for the evaluation abnormal lab results. The patient had a CBC done as an outpatient and it showed a hemoglobin less than 7.0. He was recently admitted to the hospital on 12/24/17 where he was treated for anemia of chronic inflammation and was transfused couple units of packed red blood cell with consultation to hematology. The patient does not participate in the exam and will not answer questions. He will open his eyes when asked to and shakes his head yes or no but remains nonverbal. According to previous neurology notes from the patient's prior hospital stay this is baseline for the patient. DS: Diagnosis - Discharge Diagnosis (1) Acute on chronic anemia Status: Acute (2) Anemia of chronic disorder Status: Acute (3) Pseudoaneurysm of brachial artery Status: Acute (4) Osteomyelitis Status: Acute (5) Diabetes Status: Acute DS: Medications - Discharge Medications Prescriptions: amlodipine [Norvasc] 10 mg FEEDING TUBE DAILY 30 Days #120 tab lansoprazole [Prevacid SoluTab] 30 mg FEEDING TUBE DAILY #30 tab DS: Summary - Time Spent with Patient Total time spent providing and/or coordinating discharge services: - Quality: VTE Deep Vein Thrombosis/Pulmonary Embolism Present on Admission: No Exam Vital signs: Vital Signs 02/19/18 08:00 02/19/18 12:00 02/19/18 16:00 Temperature 99.2 F 99.0 F 99.2 F Pulse Rate 84 92 H 89 Respiratory Rate 20 20 Blood Pressure 174/86 H 164/86 H 181/97 H Pulse Oximetry 99 95 98 02/19/18 20:00 02/20/18 00:00 02/20/18 04:00 Temperature 98.4 F 98.1 F 97.9 F Pulse Rate 90 86 88 Respiratory Rate 18 20 20 Blood Pressure 161/95 H 171/85 H 211/109 H Pulse Oximetry 94 L 94 L 95 Intake & Output 02/19/18 02/20/18 02/20/18 18:59 06:59 18:59 Intake Total 1701 / 1701 Output Total 600 / 600 Balance 1101 / 1101 Weight 92.4 kg Intake: IV 515 / 515 Vancomycin Inj 1,500 MG In NS 515 / 515 Inj 500 ML @ 250 mls/hr IV.SIG Q18H KRISTIE Rx#:[id number] Tube Feeding 986 / 986 Tube Irrigant 200 / 200 Output: Urine 600 / 600 Other: # Voids 3 # Incontinent Voids 1 Date of Last Bowel Movement 02/19/18 02/18/18 # Bowel Movements 1 Results Procedures completed during hospitalization: none Labs on day of discharge: Labs from last 24 hours 02/19/18 02/19/18 02/19/18 20:10 17:25 12:36 Sodium Potassium Chloride Carbon Dioxide Anion Gap BUN Creatinine Estimated GFR POC Glucose 145 H 157 H 140 H Random Glucose Calcium 02/19/18 02/19/18 07:46 05:49 Sodium 142 Potassium 3.9 D Chloride 108 H Carbon Dioxide 27.7 Anion Gap 6 BUN 21 H Creatinine 1.12 Estimated GFR 85 L POC Glucose 115 H Random Glucose 111 H Calcium 8.2 L - Impressions ITS Impressions Abdomen/Pelvis CT 02/17/18 00:00 CONCLUSION: 1. Small bilateral pleural effusions and bilateral lower lung opacity again seen. 2. Mild splenomegaly again seen. 3. Gastrostomy tube in place. 4. No evidence of bowel dilatation. 5. Heterotopic ossification about the left hip again seen. 6. Calcified adrenal glands again seen. 7. Enlarged inguinal lymph nodes again seen. Venous Doppler Study 02/18/18 00:00 CONCLUSION: 1. No DVT or SVT. 2. 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 This measures 3.6 x 2.2 x 2.2 cm and is predominantly thrombosed with a small, 6 x 9 mm patent component showing biphasic flow. Discharge Plan - Discharge Disposition Patient Disposition: 03 Discharge to SNF - Discharge Condition Condition: Stable - Discharge Details Anticipated Discharge Date: 02/20/18 - Physicians Team Primary Care Provider: Doroteo Mackey Attending Provider: Danial Hernandez Other Providers: Fabi Mercado MD ; [facility],[place] ; Hilda Vu DPM ; Amado Jensen MD ; Cris Paul MD ; Gagan Scott DPM ; Escobar Seay MD ; Luis Manuel Kwan MD ; Campbell Mcfarland MD
[2018-02-20] MEDS: Insulin NovoLOG Aspart Correctional Sugar Inj SQ SCH ×4 (09:58→22:42)
[2018-02-20] MEDS: Ascorbic Acid 500 MG Tablet G-TUBE SCH ×2 (09:59→21:50)
[2018-02-20] MEDS: Carvedilol 12.5 MG Tablet G-TUBE SCH ×2 (09:59→21:50)
[2018-02-20] MEDS: amLODIPine 10 MG Tablet G-TUBE SCH (09:59)
[2018-02-20] MEDS: Escitalopram 10 MG Tablet G-TUBE SCH (10:00)
[2018-02-20] MEDS: Senna/Docusate Sodium 8.6/50 MG Tablet G-TUBE SCH ×2 (10:00→21:50)
[2018-02-20] MEDS: levETIRAcetam 500 MG Tablet G-TUBE SCH ×3 (10:00→17:26)
--- NOTE | 2018-02-20 17:01 | P.PN ---
Subjective Interval history: Late entry patient seen earlier in the day. Patient seen and examined. He appears comfortable. He shakes his head no when asked if he is having any pain. Shakes his head no to all other ROS questioning. Patient verbalizes he wants to watch SpongeBob. Discussed with nursing staff, no acute issues noted. Planned for discharge today pending PICC line placement however vascular access team unable to place PICC. Physical Exam Vital signs: Vital Signs 02/19/18 20:00 02/20/18 00:00 02/20/18 04:00 Temperature 98.4 F 98.1 F 97.9 F Pulse Rate 90 86 88 Respiratory Rate 18 20 20 Blood Pressure 161/95 H 171/85 H 211/109 H Pulse Oximetry 94 L 94 L 95 02/20/18 08:00 02/20/18 12:00 Temperature 98.0 F Pulse Rate 90 85 Respiratory Rate 16 Blood Pressure 168/82 H Pulse Oximetry 99 Intake & Output 02/19/18 02/20/18 02/20/18 18:59 06:59 18:59 Intake Total 1701 / 1701 0 / 0 Output Total 600 / 600 Balance 1101 / 1101 0 / 0 Weight 92.4 kg Intake: IV 515 / 515 0 / 0 Vancomycin Inj 1,500 MG In NS 515 / 515 0 / 0 Inj 500 ML @ 250 mls/hr IV.SIG Q18H KRISTIE Rx#:[id number] Tube Feeding 986 / 986 Tube Irrigant 200 / 200 Output: Urine 600 / 600 Other: # Voids 3 # Incontinent Voids 1 Date of Last Bowel Movement 02/19/18 02/18/18 # Bowel Movements 1 Narrative: GENERAL: WDWN male, INAD. Awake lying in bed. Does not follow commands. When asked what he wants to watch on TV he says "Sponge Madan". SKIN: Warm and dry. No generalized rash. Bilateral feet wrapped. HEAD: Atraumatic. Normocephalic. EYES: Pupils equal and round. No scleral icterus. No injection or drainage. ENT: No nasal bleeding or discharge. NECK: Trachea midline. CARDIOVASCULAR: Regular rate and rhythm. RESPIRATORY: No accessory muscle use. Poor effort. Clear to auscultation anteriorly. Breath sounds equal bilaterally. GASTROINTESTINAL: Abdomen soft, non-tender, nondistended. +PEG tube in place mid abdomen, site C/D/I MUSCULOSKELETAL: Extremities without clubbing, cyanosis. +diffuse edema noted RUE, appears to be nontender to palpation. +spontaneous movement in RUE. LLE contracted. NEUROLOGICAL: Awake. Unable to assess motor function, patient not following commands. Minimal verbalization. PSYCHIATRIC: Calm. Results - Labs CBC & Chem 7: 02/19/18 05:49 02/19/18 05:49 Laboratory Results - last 24 hr 02/19/18 02/19/18 02/20/18 17:25 20:10 07:33 POC Glucose 157 H 145 H 147 H 02/20/18 11:43 POC Glucose 139 H - Imaging ITS Impressions Abdomen/Pelvis CT 02/17/18 00:00 CONCLUSION: 1. Small bilateral pleural effusions and bilateral lower lung opacity again seen. 2. Mild splenomegaly again seen. 3. Gastrostomy tube in place. 4. No evidence of bowel dilatation. 5. Heterotopic ossification about the left hip again seen. 6. Calcified adrenal glands again seen. 7. Enlarged inguinal lymph nodes again seen. Venous Doppler Study 02/18/18 00:00 CONCLUSION: 1. No DVT or SVT. 2. 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 This measures 3.6 x 2.2 x 2.2 cm and is predominantly thrombosed with a small, 6 x 9 mm patent component showing biphasic flow. - Procedures none Assessment and Plan - Assessment (1) Acute on chronic anemia Code(s): D64.9 - Anemia, unspecified Status: Acute (2) Anemia of chronic disorder Code(s): D63.8 - Anemia in other chronic diseases classified elsewhere Status : Acute (3) Pseudoaneurysm of brachial artery Code(s): I72.1 - Aneurysm of artery of upper extremity Status: Acute (4) Osteomyelitis Code(s): M86.9 - Osteomyelitis, unspecified Status: Acute (5) Diabetes Code(s): E11.9 - Type 2 diabetes mellitus without complications Status: Acute - Plan 47 year-old man with diabetes mellitus, hypertension, chronic anemia, chronic pain, 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 The patient had a CBC done as an outpatient and it showed a hemoglobin less than 7.0. Acute on chronic anemia Patient was previously seen by hematology on December 24, 2017 and at the time his anemia was felt to be anemia of chronic inflammation due to decreased red blood cell production and functional iron deficiency. However that hospitalization there was no suspected underlying bone marrow disorder, and patient had no evidence to suggest iron deficiency, occult blood loss. He responded well to blood transfusion Hgb 6.2 s/p transfusion 2units PRBCs. Hgb improved to 8.8 iron studies indicative of anemia of chronic disease -GI following, no indication for GI procedures at this time secondary to recent GI workup and no obvious GI bleed. Recommend capsule endoscopy as outpatient. GI signed off. -Hematology consultation as needed -monitor H/H Pseudoaneurysm right brachial artery Doppler US neg for DVT but revealed a pseudoaneurysm which appears to emanate from the distal brachial artery measuring 3.6 x 2.2 by 2.2 cm. -Dr. Jensen consulted, appreciate assistance. No further intervention needed at this time. Patient able to have PICC line placed above antecubital fossa if needed. -Vascular access team unable to place PICC after 2 attempts. Patient may be better candidate for central line given the amount of swelling in the right upper extremity and flaccidity in the left upper extremity. Also may consider ID consultation to see if PICC placement still needed. Chronic osteomyelitis, MRSA Bilateral foot wounds/ulcers -Continue on IV vancomycin with stop date 03/09 -Continue with wound care -Patient evaluated by Dr. Vu of podiatry, no surgical intervention needed at this time, appreciate recommendations History of CVA with left-sided hemiparesis Dysphagia ok to resume TF per GI -[employer] consulted, continue TF Glucerna 1.5 @ 65 mls/hr Diabetes mellitus -continue on accucheks and ISS -continue to hold home Levemir due to low BS Hypertension/hyperlipidemia BP persistently elevated -Continue on home antihypertensives Coreg and hydralazine. Begin Norvasc 10mg daily. -Continue to monitor BP and adjust treatment accordingly -Continue on Lipitor Hypokalemia, resolved s/p repletion -monitor K level as indicated Seizure d/o -Continue on home dose of Keppra -seizure precautions -monitor for any seizure activity Psychiatric disorder/depression -Continue on home medications DVT prophylaxis: Bilateral SCDs Discussed Condition With: Patient, nursing staff, Dr. Snowden, vascular access team Discharge Planning: Not ready for discharge. Discharge pending IV access.
[2018-02-20] MEDS ORDERED: Pharmacy Ordered Lab Info OTHER ONE (22:45)
--- NOTE | 2018-02-21 06:51 | P.PN ---
Subjective Interval history: Follow up on patient with chronic osteo, MRSA, anemia, pseudoaneurysm right brachial artery. Patient seen and examined. Patient is nonverbal today. He shakes his head no to all ROS questions. He appears comfortable. DW nursing staff, no acute events overnight. Physical Exam Vital signs: Vital Signs 02/20/18 08:00 02/20/18 12:00 02/20/18 16:00 Temperature 98.0 F 98.2 F Pulse Rate 90 85 89 Respiratory Rate 16 14 Blood Pressure 168/82 H 146/85 H Pulse Oximetry 99 94 L 02/20/18 20:00 02/21/18 00:00 02/21/18 04:00 Temperature 98.1 F 98.5 F 98.5 F Pulse Rate 91 H 83 87 Respiratory Rate 16 16 Blood Pressure 169/95 H 166/93 H 178/99 H Pulse Oximetry 95 95 95 Intake & Output 02/20/18 02/20/18 02/21/18 06:59 18:59 06:59 Intake Total 1361 / 1361 1030 / 1030 Balance 1361 / 1361 1030 / 1030 Weight 92.4 kg Intake: IV 0 / 0 1030 / 1030 Vancomycin Inj 1,500 MG In NS 0 / 0 1030 / 1030 Inj 500 ML @ 250 mls/hr IV.SIG Q18H KRISTIE Rx#:[id number] Tube Feeding 1361 / 1361 Other: # Voids 3 # Incontinent Voids 1 1 Date of Last Bowel Movement 02/18/18 02/20/18 02/20/18 # Bowel Movements 1 Narrative: GENERAL: WDWN male, INAD. Awake lying in bed. Does not follow commands. SKIN: Warm and dry. No generalized rash. Bilateral feet wrapped. HEAD: Atraumatic. Normocephalic. EYES: Pupils equal and round. No scleral icterus. No injection or drainage. ENT: No nasal bleeding or discharge. NECK: Trachea midline. CARDIOVASCULAR: Regular rate and rhythm. RESPIRATORY: No accessory muscle use. Poor effort. Clear to auscultation anteriorly. Breath sounds equal bilaterally. GASTROINTESTINAL: Abdomen soft, non-tender, nondistended. +PEG tube in place mid abdomen, site C/D/I MUSCULOSKELETAL: Extremities without clubbing, cyanosis. +edema in RUE improved , NTTP. +spontaneous movement in RUE. LLE contracted. NEUROLOGICAL: Awake. Unable to assess motor function, patient not following commands. Nonverbal today. PSYCHIATRIC: Calm. Results - Labs CBC & Chem 7: 02/19/18 05:49 02/21/18 04:08 Laboratory Results - last 24 hr 02/20/18 02/20/18 02/20/18 07:33 11:43 17:23 Creatinine Estimated GFR POC Glucose 147 H 139 H 136 H Vancomycin Trough 02/20/18 02/21/18 02/21/18 22:40 01:24 04:08 Creatinine 1.15 Estimated GFR 83 L POC Glucose 138 H Vancomycin Trough 41.7 H - Imaging ITS Impressions Abdomen/Pelvis CT 02/17/18 00:00 CONCLUSION: 1. Small bilateral pleural effusions and bilateral lower lung opacity again seen. 2. Mild splenomegaly again seen. 3. Gastrostomy tube in place. 4. No evidence of bowel dilatation. 5. Heterotopic ossification about the left hip again seen. 6. Calcified adrenal glands again seen. 7. Enlarged inguinal lymph nodes again seen. Venous Doppler Study 02/18/18 00:00 CONCLUSION: 1. No DVT or SVT. 2. 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 This measures 3.6 x 2.2 x 2.2 cm and is predominantly thrombosed with a small, 6 x 9 mm patent component showing biphasic flow. - Procedures none Assessment and Plan - Assessment (1) Acute on chronic anemia Code(s): D64.9 - Anemia, unspecified Status: Acute (2) Anemia of chronic disorder Code(s): D63.8 - Anemia in other chronic diseases classified elsewhere Status : Acute (3) Pseudoaneurysm of brachial artery Code(s): I72.1 - Aneurysm of artery of upper extremity Status: Acute (4) Osteomyelitis Code(s): M86.9 - Osteomyelitis, unspecified Status: Acute (5) Diabetes Code(s): E11.9 - Type 2 diabetes mellitus without complications Status: Acute - Plan 47 year-old man with diabetes mellitus, hypertension, chronic anemia, chronic pain, 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 The patient had a CBC done as an outpatient and it showed a hemoglobin less than 7.0. Acute on chronic anemia Patient was previously seen by hematology on December 24, 2017 and at the time his anemia was felt to be anemia of chronic inflammation due to decreased red blood cell production and functional iron deficiency. However that hospitalization there was no suspected underlying bone marrow disorder, and patient had no evidence to suggest iron deficiency, occult blood loss. He responded well to blood transfusion Hgb 6.2 s/p transfusion 2units PRBCs. Hgb improved to 8.8 iron studies indicative of anemia of chronic disease -GI following, no indication for GI procedures at this time secondary to recent GI workup and no obvious GI bleed. Recommend capsule endoscopy as outpatient. GI signed off. -Hematology consultation as needed -monitor H/H Pseudoaneurysm right brachial artery Doppler US neg for DVT but revealed a pseudoaneurysm which appears to emanate from the distal brachial artery measuring 3.6 x 2.2 by 2.2 cm. -Dr. Jensen consulted, appreciate assistance. No further intervention needed at this time. Patient able to have PICC line placed above antecubital fossa if needed. -Vascular access team unable to place PICC after 2 attempts. Patient may be better candidate for central line given the amount of swelling in the right upper extremity and flaccidity in the left upper extremity. Chronic osteomyelitis, MRSA Bilateral foot wounds/ulcers -Continue on IV vancomycin with stop date 03/09 -Continue with wound care -Patient evaluated by Dr. Vu of podiatry, no surgical intervention needed at this time, appreciate recommendations 02/21 Vascular access team unable to place PICC in RUE secondary to diffuse swelling, pseudoaneurysm and ?scar tissue. LUE PICC line placement undesirable due to flaccidity and concern for DVT. On IV Vanco until 03/09. ?central line placement. Will consult ID Dr. Paul for assistance with IV abx management, appreciate assistance. History of CVA with left-sided hemiparesis Dysphagia ok to resume TF per GI -Industrial Nurse consulted, continue TF Glucerna 1.5 @ 65 mls/hr Diabetes mellitus -continue on accucheks and ISS -Blood sugar running mid 100s -patient on Levemir 5u BID at home. Will continue to hold for now. Hypertension/hyperlipidemia BP persistently elevated -Continue on home antihypertensives Coreg and hydralazine. Continue on Norvasc 10mg daily. Add low dose HCTZ. Monitor electrolytes and kidney function. BMP in am. -Continue to monitor BP and adjust treatment accordingly -Continue on Lipitor Hypokalemia, resolved s/p repletion -monitor K level as indicated, repeat BMP in am Seizure d/o -Continue on home dose of Keppra -seizure precautions -monitor for any seizure activity Psychiatric disorder/depression -Continue on home medications DVT prophylaxis: Bilateral SCDs, Heparin sq Discussed Condition With: patient, RN, Dr. Snowden Discharge Planning: Not ready for discharge. Discharge pending ID evaluation and recommendations.
[2018-02-21] MEDS: Insulin NovoLOG Aspart Correctional Sugar Inj SQ SCH ×4 (08:09→21:18)
[2018-02-21] MEDS: Senna/Docusate Sodium 8.6/50 MG Tablet G-TUBE SCH ×2 (08:41→21:06)
[2018-02-21] MEDS: Carvedilol 12.5 MG Tablet G-TUBE SCH ×2 (08:41→21:06)
[2018-02-21] MEDS: amLODIPine 10 MG Tablet G-TUBE SCH (08:41)
[2018-02-21] MEDS: Escitalopram 10 MG Tablet G-TUBE SCH (08:41)
[2018-02-21] MEDS: Ascorbic Acid 500 MG Tablet G-TUBE SCH ×2 (08:41→21:06)
[2018-02-21] MEDS: levETIRAcetam 500 MG Tablet G-TUBE SCH ×3 (08:42→21:14)
--- NOTE | 2018-02-21 14:43 | P.CONID ---
History of Present Illness Service: ID Consult date: 02/21/18 Requesting Physician: Whit Bender Reason for Consult: L foot osteo Primary Care Provider: Doroteo Mackey MD Family Provider: Doroteo Mackey MD Chief Complaint: Abnormal lab including hemoglobin of 6.2 History of Present Illness: 47 yo pt known to me from previous admission pt is a stroke victim with major neurological sequeal He is bedridden and contarcted severely on the L side , L sided hemiplegia He developped chronic ulcerations on the lateral aspect of L foot and was diagnosed with MRSA osteo He was staerted on vancomycin and noted to develop anemioa while on treatment and he was admistted because of for tarnsfusion NO IV acces His vancomycin level is 41 Review of Systems unobtainable due to mental status (uncooperative) PMFSH - History History Provided By: Family Member - Medical History Medical History: Medical History (Last Reviewed 03/24/18 @ 11:35 by Cris Paul MD) Gastrostomy tube in place (Acute) Anemia CVA (cerebral vascular accident) Depression Diabetes HLD (hyperlipidemia) Hemiparesis Hemiplegia Hypertension - Family History Family History: Family History (Last Reviewed 02/21/18 @ 14:43 by Cris Paul MD) Other Unknown family medical history - Social History I have reviewed the patient's Social History: Yes - Tobacco History Second Hand Smoke Exposure: No Smoking Status: Never smoker Tobacco Type: Cigarettes - Alcohol History How Often Do You Have a Drink Containing Alcohol: Never - Substance Use History Substance History: No History of Abuse - Travel History Recent Travel in the [place] Within the Last 8 Weeks: No Recent Travel Out of the Country Within the Last 8 Weeks: No - Immunization History Tetanus Immunization: Unable to Assess Hx Influenza Vaccine This Season: Unable to Assess Medications and Allergies Active Medications: Active Medications Al Hydroxide/Mg Hydroxide (Milk Of Nadiya Liq) 30 ml G-TUBE Q12H PRN PRN Reason: Mild Constipation Amlodipine Besylate (Norvasc) 10 mg G-TUBE DAILY K[facility]STIE Last Admin: 02/21/18 08:41 Dose: 10 mg Ascorbic Acid (Vitamin C) 500 mg G-TUBE BID KRISTIE Last Admin: 02/21/18 08:41 Dose: 500 mg Atorvastatin Calcium (Lipitor) 10 mg G-TUBE HS KRISTIE Last Admin: 02/20/18 21:50 Dose: 10 mg Bisacodyl (Dulcolax Supp) 10 mg RECTAL DAILY PRN PRN Reason: SEVERE CONSITIPATION Carvedilol (Coreg) 25 mg G-TUBE BID [facility] Last Admin: 02/21/18 08:41 Dose: 25 mg Dextrose (D50w Vial) 50 ml IV.PUSH UNSCH PRN PRN Reason: PER HYPOGLYCEMIA PROTOCOL Last Admin: 02/17/18 20:55 Dose: 50 ml Enalaprilat (Vasotec Inj) 2.5 mg IV.PUSH Q6H PRN PRN Reason: SBP>160, DBP>90 Last Admin: 02/21/18 01:34 Dose: 2.5 mg Escitalopram Oxalate (Lexapro) 15 mg G-TUBE DAILY [facility] Last Admin: 02/21/18 08:41 Dose: 15 mg Glucagon (Glucagon Inj) 1 mg OTHER PRN PRN PRN Reason: for Hypoglycemia Protocol Heparin Sodium (Porcine) (Heparin Inj) 5,000 units SQ Q12HR [facility] Hydralazine HCl (Apresoline) 100 mg G-TUBE TID [facility] Last Admin: 02/21/18 08:42 Dose: 100 mg Hydrochlorothiazide (Microzide) 12.5 mg G-TUBE DAILY [facility] Last Admin: 02/21/18 08:47 Dose: 12.5 mg Pharmacy Profile Note (Vancomycin Consult Pharmacy) 0 mls @ 0 mls/hr OTHER UNSCH [facility] Vancomycin HCl 1,500 mg/ (Sodium Chloride) 515 mls @ 250 mls/hr IV.SIG Q18H [facility] Last Infusion: 02/21/18 06:06 Dose: Infused Insulin Aspart (Novolog Insulin Correctional Sugar Inj) 0 unit SQ ACHS [facility]; Protocol Last Admin: 02/21/18 08:09 Dose: Not Given Insulin Detemir (Levemir Inj) 5 unit SQ BID [facility] Last Admin: 02/18/18 11:01 Dose: Not Given Lactulose (Lactulose Liq) 30 ml G-TUBE DAILY PRN PRN Reason: SEVERE CONSITIPATION Lansoprazole (Prevacid Solutab) 30 mg NG/OG DAILY [facility] Last Admin: 02/21/18 10:49 Dose: 30 mg Levetiracetam (Keppra) 500 mg G-TUBE TID [facility] Last Admin: 02/21/18 08:42 Dose: 500 mg Miscellaneous (Pill Splitter) 1 each OTHER ONCE [facility] Miscellaneous Information ([facility] Ordered Lab Info) 0 each OTHER ONCE ONE Stop: 02/21/18 16:46 Ondansetron HCl (Zofran Inj) 4 mg IV.PUSH Q6H PRN PRN Reason: NAUSEA OR VOMITING Senna/Docusate Sodium (Jessie-Colace) 1 tab G-TUBE BID [facility] Last Admin: 02/21/18 08:41 Dose: 1 tab Sennosides (Senokot) 17.2 mg PO Q12H PRN PRN Reason: Moderate Constipation Temazepam (Restoril) 15 mg PO HS PRN PRN Reason: INSOMNIA Allergies Allergy/AdvReac Type Severity Reaction Status Date / Time No Known Allergies Allergy Unknown Uncoded 01/06/18 21:04 Home Medications Medication Instructions Recorded Confirmed Type ascorbic acid (vitamin C) [Vitamin 500 mg PO BID 01/15/18 02/17/18 History C] aspirin [Aspir-81] 81 mg FEEDING TUBE DAILY 01/15/18 02/17/18 History atorvastatin 10 mg FEEDING TUBE HS 01/15/18 02/17/18 History carvedilol [Coreg] 25 mg FEEDING TUBE BID 01/15/18 02/17/18 History escitalopram oxalate 15 mg FEEDING TUBE DAILY 01/15/18 02/17/18 History gentamicin 1 applic TOPICAL QID 01/15/18 02/17/18 History hydralazine 100 mg PO TID 01/15/18 02/17/18 History insulin detemir U-100 [Levemir 5 unit SUB-Q BID 01/15/18 02/17/18 History U-100 Insulin] ipratropium-albuterol 3 ml INHALATION Q6-8H PRN 01/15/18 02/17/18 History levetiracetam 500 mg PO TID 01/15/18 02/17/18 History melatonin 3 mg FEEDING TUBE HS 01/15/18 02/17/18 History insulin aspart U-100 [Novolog 1 sliding scale dose SUB-Q UD 02/17/18 02/17/18 History U-100 Insulin aspart] Exam Vital signs: Vital Signs 02/20/18 16:00 02/20/18 20:00 02/21/18 00:00 Temperature 98.2 F 98.1 F 98.5 F Pulse Rate 89 91 H 83 Respiratory Rate 14 16 Blood Pressure 146/85 H 169/95 H 166/93 H Pulse Oximetry 94 L 95 95 02/21/18 04:00 02/21/18 08:00 Temperature 98.5 F 98.4 F Pulse Rate 87 85 Respiratory Rate 16 18 Blood Pressure 178/99 H 176/94 H Pulse Oximetry 95 95 Intake & Output 02/20/18 02/21/18 02/21/18 18:59 06:59 18:59 Intake Total 1361 / 1361 1030 / 1030 Balance 1361 / 1361 1030 / 1030 Weight 90.4 kg Intake: IV 0 / 0 1030 / 1030 Vancomycin Inj 1,500 MG In NS 0 / 0 1030 / 1030 Inj 500 ML @ 250 mls/hr IV.SIG Q18H KRISTIE Rx#:[id number] Tube Feeding 1361 / 1361 Other: # Voids 3 # Incontinent Voids 1 Date of Last Bowel Movement 02/20/18 02/20/18 # Bowel Movements 1 - Constitutional no acute distress, average body habitus - Routine HEENT Exam Head: Present: normocephalic, atraumatic ENT: Present: mucous membranes moist, oropharynx clear - Routine Neck Exam Present: supple, full ROM - Routine Respiratory Exam Present: decreased breath sounds, CTA bilaterally - Routine Cardiovascular Exam Present: RRR, S1, S2 Comments: no murmus, rubs or gallops - Routine Abdominal Exam Present: soft Comments: not tender not distended no organomegaly or masses - Routine Extremities Exam Comments: no cyanosis no clubbing no edema L foot with stage III decub ulcer drainig odorless serous drainage R foot with stage II fully granulated ulcer over 5 th MT - Routine Skin Exam Present: intact, dry, warm Comments: no rash - Routine Neurological Exam Present: alert, motor deficit (L side hemip;legia), hemineglect increased tone L side - Routine Psychiatric Exam Comments: calm and non cooperative withdrawn Results - Labs CBC & Chem 7: 03/24/18 06:10 03/24/18 00:55 Labs: Laboratory Results - last 24 hr 02/20/18 02/20/18 02/21/18 17:23 22:40 01:24 Creatinine Estimated GFR POC Glucose 136 H 138 H Vancomycin Trough 41.7 H 02/21/18 02/21/18 02/21/18 04:08 07:56 11:44 Creatinine 1.15 Estimated GFR 83 L POC Glucose 145 H 128 H Vancomycin Trough - Imaging Abdomen/Pelvis CT 02/17/18 00:00 CONCLUSION: 1. Small bilateral pleural effusions and bilateral lower lung opacity again seen. 2. Mild splenomegaly again seen. 3. Gastrostomy tube in place. 4. No evidence of bowel dilatation. 5. Heterotopic ossification about the left hip again seen. 6. Calcified adrenal glands again seen. 7. Enlarged inguinal lymph nodes again seen. Venous Doppler Study 02/18/18 00:00 CONCLUSION: 1. No DVT or SVT. 2. 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 This measures 3.6 x 2.2 x 2.2 cm and is predominantly thrombosed with a small, 6 x 9 mm patent component showing biphasic flow. Assessment and Plan - Plan L foot osteomyelitis MRSA, on vancomycin - trough level too high Anemia likely 2/2 vanco MRI cont vancomycin adjust the dose PICC
[2018-02-21] MEDS ORDERED: Pharmacy Ordered Lab Info OTHER ONE (16:45)
[2018-02-21] MEDS: Vancomycin Inj 1,500 MG in Sodium Chlor 0.9% Inj 500 ML IV.SIG SCH (21:06)
[2018-02-21] MEDS: Heparin - SQ 10,000 UNITS/ML Vial SQ SCH (21:13)
[2018-02-22 07:16] LABS: Hematocrit 26.6 % (39.0-51.0); Hemoglobin 8.8 gm/dL (13.0-17.0); Mean Corpuscular HGB Conc 32.9 % (32.0-36.0); Mean Corpuscular Volume 91.3 fL (80.0-100.0); Mean Platelet Volume 8.3 fL (7.0-11.0); Platelet Count 218 th/mm3 (150-450); Red Blood Count 2.91 mil/mm3 (4.50-5.90); White Blood Count 4.5 th/mm3 (4.0-11.0)
--- NOTE | 2018-02-22 07:22 | P.PN ---
Subjective Interval history: Follow up on patient with chronic osteo, MRSA, anemia, pseudoaneurysm right brachial artery. Patient seen and examined. Patient appears comfortable. He is not in any distress. Discussed with nursing staff, multiple loose foul- smelling stools overnight. He is afebrile. VSS. Physical Exam Vital signs: Vital Signs 02/21/18 08:00 02/21/18 12:00 02/21/18 20:00 Temperature 98.4 F 98.4 F 98.1 F Pulse Rate 82 79 82 Respiratory Rate Blood Pressure 176/94 H 161/83 H 133/88 Pulse Oximetry 95 95 96 02/22/18 00:00 02/22/18 02:00 02/22/18 04:00 Temperature 97.4 F L 97.4 F L Pulse Rate 80 76 80 Respiratory Rate 20 20 Blood Pressure 152/77 H 147/80 H Pulse Oximetry 95 95 Intake & Output 02/21/18 02/22/18 02/22/18 18:59 06:59 18:59 Intake Total 515 / 515 Output Total Balance - 515 / 515 Intake: IV 515 / 515 Vancomycin Inj 1,500 MG In NS 515 / 515 Inj 500 ML @ 250 mls/hr IV.SIG Q18H [facility] Rx#:[id number] Output: Stool Other: # Voids 2 Date of Last Bowel Movement 02/21/18 02/21/18 Narrative: GENERAL: WDWN male, INAD. Awake lying in bed. Nonverbal. Does not follow commands. SKIN: Warm and dry. No generalized rash. Bilateral feet wrapped. HEAD: Atraumatic. Normocephalic. EYES: Pupils equal and round. No scleral icterus. No injection or drainage. ENT: No nasal bleeding or discharge. NECK: Trachea midline. CARDIOVASCULAR: Regular rate and rhythm. RESPIRATORY: No accessory muscle use. Poor effort. Clear to auscultation anteriorly. Breath sounds equal bilaterally. GASTROINTESTINAL: Abdomen soft, non-tender, nondistended. +PEG tube in place mid abdomen, site C/D/I MUSCULOSKELETAL: Extremities without clubbing, cyanosis. +edema in RUE improved , NTTP. +spontaneous movement in RUE. LLE contracted. NEUROLOGICAL: Awake. Unable to assess motor function, patient not following commands. Nonverbal. PSYCHIATRIC: Calm. Results - Labs CBC & Chem 7: 02/22/18 06:58 02/22/18 06:58 Laboratory Results - last 24 hr 02/21/18 02/21/18 02/21/18 07:56 11:44 17:27 WBC RBC Hgb Hct MCV MCH MCHC RDW Plt Count MPV POC Glucose 145 H 128 H 161 H Vancomycin Trough 02/21/18 02/21/18 02/22/18 20:09 21:11 06:58 WBC 4.5 RBC 2.91 L Hgb 8.8 L Hct 26.6 L MCV 91.3 MCH 30.0 MCHC 32.9 RDW 17.0 Plt Count 218 MPV 8.3 POC Glucose 148 H Vancomycin Trough 25.0 H - Procedures none Assessment and Plan - Assessment (1) Acute on chronic anemia Code(s): D64.9 - Anemia, unspecified Status: Acute (2) Anemia of chronic disorder Code(s): D63.8 - Anemia in other chronic diseases classified elsewhere Status : Acute (3) Pseudoaneurysm of brachial artery Code(s): I72.1 - Aneurysm of artery of upper extremity Status: Acute (4) Osteomyelitis Code(s): M86.9 - Osteomyelitis, unspecified Status: Acute (5) Diabetes Code(s): E11.9 - Type 2 diabetes mellitus without complications Status: Acute - Plan 47 year-old man with diabetes mellitus, hypertension, chronic anemia, chronic pain, 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 The patient had a CBC done as an outpatient and it showed a hemoglobin less than 7.0. Acute on chronic anemia Patient was previously seen by hematology on December 24, 2017 and at the time his anemia was felt to be anemia of chronic inflammation due to decreased red blood cell production and functional iron deficiency. However that hospitalization there was no suspected underlying bone marrow disorder, and patient had no evidence to suggest iron deficiency, occult blood loss. He responded well to blood transfusion Hgb 6.2 s/p transfusion 2units PRBCs. Hgb improved to 8.8, stable. iron studies indicative of anemia of chronic disease -GI following, no indication for GI procedures at this time secondary to recent GI workup and no obvious GI bleed. Recommend capsule endoscopy as outpatient. GI signed off. -Hematology consultation as needed -monitor H/H intermittently Pseudoaneurysm right brachial artery Doppler US neg for DVT but revealed a pseudoaneurysm which appears to emanate from the distal brachial artery measuring 3.6 x 2.2 by 2.2 cm. -Dr. Jensen consulted, appreciate assistance. No further intervention needed at this time. Patient able to have PICC line placed above antecubital fossa if needed. Chronic osteomyelitis, MRSA Bilateral foot wounds/ulcers -Continue on IV vancomycin with stop date 03/09 -Continue with wound care -Patient evaluated by Dr. Vu of podiatry, no surgical intervention needed at this time, appreciate recommendations -ID following, appreciate assistance. Continue on IV Vanco. PICC line ordered. MRI studies of bilateral feet ordered. Foul smelling diarrhea no leukocytosis, afebrile no vomiting or abd pain -hold stool softener -send stool for C diff -monitor stooling History of CVA with left-sided hemiparesis Dysphagia ok to resume TF per GI -[employer] consulted, continue TF Glucerna 1.5 @ 65 mls/hr Diabetes mellitus -continue on accucheks and ISS -Blood sugar 83 this am -patient on Levemir 5u BID at home. Will continue to hold for now. Cover with sliding scale only. Hypertension/hyperlipidemia -Continue on home antihypertensives Coreg and hydralazine. Continue on Norvasc 10mg daily. BP improved but still elevated. Continue on current dose of HCTZ, may need to increase dose. Monitor electrolytes and kidney function intermittently. -Continue to monitor BP and adjust treatment accordingly -Continue on Lipitor Hypokalemia, resolved s/p repletion -monitor K level as indicated Seizure d/o -Continue on home dose of Keppra -seizure precautions -monitor for any seizure activity Psychiatric disorder/depression -Continue on home medications DVT prophylaxis: Bilateral SCDs, Heparin sq Discussed Condition With: patient, RN, Dr. Snowden Discharge Planning: Not ready for discharge. Pending MRI bilateral feet. Needs PICC line placement. Discharge pending ID clearance.
[2018-02-22 07:35] LABS: Calcium 8.2 mg/dL (8.5-10.1); Carbon Dioxide 27.3 meq/L (21.0-32.0); Potassium 4.5 meq/L (3.5-5.1)
[2018-02-22 07:38] LABS: Vancomycin,Random 32.9 Comment
[2018-02-22] MEDS: Insulin NovoLOG Aspart Correctional Sugar Inj SQ SCH ×3 (08:03→17:00)
[2018-02-22] MEDS: Escitalopram 10 MG Tablet G-TUBE SCH (09:08)
[2018-02-22] MEDS: Heparin - SQ 10,000 UNITS/ML Vial SQ SCH (09:09)
[2018-02-22] MEDS: Senna/Docusate Sodium 8.6/50 MG Tablet G-TUBE SCH (09:09)
[2018-02-22] MEDS: levETIRAcetam 500 MG Tablet G-TUBE SCH ×3 (09:09→17:59)
[2018-02-22] MEDS: amLODIPine 10 MG Tablet G-TUBE SCH (09:09)
[2018-02-22] MEDS: Carvedilol 12.5 MG Tablet G-TUBE SCH (09:09)
[2018-02-22] MEDS: Ascorbic Acid 500 MG Tablet G-TUBE SCH (09:10)
[2018-02-22] MEDS: *Heparin Central Flush 100 UNIT/ML 5 ML Vial PERIprocedural ONLY IV.FLUSH ONE ×2 (13:24→13:45)
[2018-02-22] MEDS: Lidocaine 1%/Epinephrine 1:100,000 Inj 20 ML Vial ONE ×2 (13:24→13:40)
[2018-02-22] MEDS: fentaNYL Citrate Inj 100 MCG/2 ML Ampul ONE ×2 (13:25)
--- NOTE | 2018-02-22 13:31 | MR ---
EXAM DATE: 02/22/2018 12:43 PM EDT AGE/SEX: 47 years / Male INDICATIONS: Osteomyelitis. CLINICAL DATA: This is the patient's initial encounter. Patient reports that signs and symptoms have been present for 3 weeks and indicates a pain score of 3/10. MEDICAL/SURGICAL HISTORY: Stroke. Hypertension. CABG. COMPARISON: No prior exams available for comparison. TECHNIQUE: Multiplanar, multisequence MRI examination was performed without contrast and after th e intravenous administration of 9 ml Gadavist (gadobutrol) single exam dose. FINDINGS: The exam is degraded by fairly extensive motion artifact on some sequences there is abnormal marrow e leonora and marrow enhancement in the mid and distal shaft of the fifth metatarsal characteristic of ost eomyelitis. There is some surrounding cellulitis. No other foci of osteomyelitis are identified on MR I. Mild degenerative changes are present. There is some edematous change in the soft tissues predomin antly in the forefoot. CONCLUSION: 1. Osteomyelitis of the mid and distal fifth metatarsal with erosive changes at the fifth metatarsal head. There is surrounding cellulitis and edematous changes in the soft tissues of the foot. No othe r areas of osteomyelitis identified. Electronically signed by: Rex Gamez MD 02/22/2018 1:29 PM EDT
--- NOTE | 2018-02-22 14:26 | IR ---
EXAM DATE: 02/22/2018 2:10 PM EDT AGE/SEX: 47 years / Male INDICATIONS: Patient presents with history of chronic anemia and abnormal lab values in need of tunn eled power PICC line for administration of antibiotics. CLINICAL DATA: This is the patient's initial encounter. Patient reports that signs and symptoms have been present for 4 - 6 days and indicates a pain score of 0/10. MEDICAL/SURGICAL HISTORY: Anemia. CVA, Diabetes, Depression, HLD, Hemiparesis, Hemiplegia, HTN, . Gastrostomy tube placement. COMPARISON: No prior exams available for comparison. FLUORO TIME (min): 0.26 IMAGE SERIES: 2 ACCESS SITE: Right internal jugular vein MEDICATION(S): 50 mcg fentanyl (Sublimaze) IV 1 mg lorazepam (Ativan) IV DEVICE(S): 5 Occitan single lumen Power PICC tunneled. . . PROCEDURE : 1. Ultrasound guidance for venous catheterization. 2. Fluoroscopic guidance. 3. Ultrasound & fluoroscopic guided central tunneled venous Power PICC line placement. The risks, benefits and alternatives to the procedure were explained and verbal and written consent w as obtained. The site was prepped in sterile fashion. Full sterile technique was used, including ca p, mask, sterile gloves and gown and a large sterile sheet. Hand hygiene and 2% chlorhexidine prep w as utilized per protocol for cutaneous antisepsis with appropriate dry time for site. Sterile gel a nd sterile probe cover were utilized for ultrasound guidance. The skin and subcutaneous tissues wer e infiltrated with local anesthetic solution. Under direct ultrasound guidance, a suitable vein was accessed and a measuring guidewire was introduc ed and positioned in the central venous system. The ultrasound images depicting access guidance were saved and stored to PACS for permanent record. A Power Injectable PICC line was cut to prescribed length and tunneled from a chest wall dermatotomy site to the venotomy site and positioned with tip at the cavoatrial junction level. The line was flu shed and secured per protocol. CONCLUSION: 1. Uncomplicated tunneled central venous Power PICC line placement. 2. The PICC line can be used immediately. Electronically signed by: Alan Young MD 02/22/2018 2:24 PM EDT
[2018-02-22] MEDS: Vancomycin Inj 1,500 MG in Sodium Chlor 0.9% Inj 500 ML IV.SIG SCH (15:00)
[2018-02-22] MEDS ORDERED: Gadobutrol PF 10 MMOL/10 ML Vial (for RAD) IV.SIG ONE (17:15)
--- NOTE | 2018-02-22 17:48 | MR ---
EXAM DATE: 02/22/2018 5:37 PM EDT AGE/SEX: 47 years / Male INDICATIONS: Osteomyelitis. Wound medial side of left foot 1st digit by MTPJ. CLINICAL DATA: This is the patient's initial encounter. Patient reports that signs and symptoms have been present for 3 weeks and indicates a pain score of 3/10. MEDICAL/SURGICAL HISTORY: Stroke. Hypertension. CABG. COMPARISON: No prior exams available for comparison. TECHNIQUE: Multiplanar, multisequence MRI examination was performed without contrast and after th e intravenous administration of 9 ml Gadavist (gadobutrol) single exam dose. FINDINGS: There is some marrow edema and marrow enhancement at the medial aspect of the first metatarsal head w ith a tiny focus of marrow signal abnormality in the proximal phalanx. Findings are most characterist ic of an early osteomyelitis. There is partial amputation of the fifth metatarsal. No other abnormal marrow enhancement identified. CONCLUSION: 1. Findings most characteristic of early osteomyelitis at the medial aspect of the first metatarsal head and a tiny focus of probable osteomyelitis at the medial corner of the proximal phalanx great to e. Mild surrounding cellulitis. 2. Previous partial amputation fifth metatarsal. Electronically signed by: Rex Gamez MD 02/22/2018 5:46 PM EDT
[2018-02-23] MEDS: Heparin - SQ 10,000 UNITS/ML Vial SQ SCH ×3 (00:09→21:58)
[2018-02-23] MEDS: Insulin NovoLOG Aspart Correctional Sugar Inj SQ SCH ×5 (00:10→21:59)
[2018-02-23] MEDS: Ascorbic Acid 500 MG Tablet G-TUBE SCH ×3 (00:10→21:59)
[2018-02-23] MEDS: Senna/Docusate Sodium 8.6/50 MG Tablet G-TUBE SCH ×3 (00:10→21:59)
[2018-02-23] MEDS: Carvedilol 12.5 MG Tablet G-TUBE SCH ×3 (00:10→21:59)
--- NOTE | 2018-02-23 07:24 | P.PN ---
Subjective Interval history: Follow up on patient with chronic osteo, MRSA, anemia, pseudoaneurysm right brachial artery. Patient seen and examined. No significant change. Patient appears comfortable. Nonverbal. Not following commands. Does shake his head no to ROS questions. DW nursing staff, no acute issues, no recurrence of diarrhea. Physical Exam Vital signs: Vital Signs 02/22/18 08:00 02/22/18 12:00 02/22/18 16:00 Temperature 97.5 F L 98.5 F 98.1 F Pulse Rate 81 87 78 Respiratory Rate 18 Blood Pressure 153/81 H 132/75 151/85 H Pulse Oximetry 96 94 L 94 L 02/22/18 20:00 02/23/18 00:00 02/23/18 04:00 Temperature 98.2 F 98 F 98 F Pulse Rate 75 80 75 Respiratory Rate 19 17 Blood Pressure 145/80 H 147/79 H 140/82 Pulse Oximetry 95 94 L 95 Intake & Output 02/22/18 02/23/18 02/23/18 18:59 06:59 18:59 Intake Total 515 / 515 Balance 515 / 515 Intake: IV 515 / 515 Vancomycin Inj 1,500 MG In NS 515 / 515 Inj 500 ML @ 250 mls/hr IV.SIG Q18H [facility] Rx#:[id number] Other: # Voids 3 # Incontinent Voids 2 Date of Last Bowel Movement 02/22/18 # Bowel Movements 2 Narrative: GENERAL: WDWN male patient. Awake lying in bed. Nonverbal. Does not follow commands. Not in any distress. SKIN: Warm and dry. No generalized rash. Bilateral feet wrapped and in heel raiser boots bilaterally. HEAD: Atraumatic. Normocephalic. EYES: Pupils equal and round. No scleral icterus. No injection or drainage. ENT: No nasal bleeding or discharge. NECK: Trachea midline. CARDIOVASCULAR: Regular rate and rhythm. RESPIRATORY: No accessory muscle use. Poor effort. Clear to auscultation anteriorly. Breath sounds equal bilaterally. GASTROINTESTINAL: Abdomen soft, non-tender, nondistended. +PEG tube in place mid abdomen, site C/D/I MUSCULOSKELETAL: Extremities without clubbing, cyanosis. +spontaneous movement in RUE. LLE contracted. NEUROLOGICAL: Awake. Unable to assess motor function, patient not following commands. Nonverbal. PSYCHIATRIC: Calm. Results - Labs CBC & Chem 7: 02/22/18 06:58 02/23/18 07:30 Laboratory Results - last 24 hr 02/22/18 02/22/18 02/22/18 06:58 07:30 18:22 Sodium 140 Potassium 4.5 Chloride 107 Carbon Dioxide 27.3 Anion Gap 6 BUN 23 H Creatinine 1.08 Estimated GFR 89 POC Glucose 125 H 137 H Random Glucose 127 H Calcium 8.2 L Random Vancomycin 32.9 02/22/18 20:20 Sodium Potassium Chloride Carbon Dioxide Anion Gap BUN Creatinine Estimated GFR POC Glucose 129 H Random Glucose Calcium Random Vancomycin - Imaging Impressions Central Venous Line 02/22/18 00:00 CONCLUSION: 1. Uncomplicated tunneled central venous Power PICC line placement. 2. The PICC line can be used immediately. Foot MRI 02/22/18 00:00 CONCLUSION: 1. Osteomyelitis of the mid and distal fifth metatarsal with erosive changes at the fifth metatarsal head. There is surrounding cellulitis and edematous changes in the soft tissues of the foot. No other areas of osteomyelitis identified. Foot MRI 02/22/18 00:00 CONCLUSION: 1. Findings most characteristic of early osteomyelitis at the medial aspect of the first metatarsal head and a tiny focus of probable osteomyelitis at the medial corner of the proximal phalanx great toe. Mild surrounding cellulitis. 2. Previous partial amputation fifth metatarsal. - Procedures s/p PICC line placement 02/22 Assessment and Plan - Assessment (1) Acute on chronic anemia Code(s): D64.9 - Anemia, unspecified Status: Acute (2) Anemia of chronic disorder Code(s): D63.8 - Anemia in other chronic diseases classified elsewhere Status : Acute (3) Pseudoaneurysm of brachial artery Code(s): I72.1 - Aneurysm of artery of upper extremity Status: Acute (4) Osteomyelitis Code(s): M86.9 - Osteomyelitis, unspecified Status: Acute (5) Diabetes Code(s): E11.9 - Type 2 diabetes mellitus without complications Status: Acute - Plan 47 year-old man with diabetes mellitus, hypertension, chronic anemia, chronic pain, 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 The patient had a CBC done as an outpatient and it showed a hemoglobin less than 7.0. Acute on chronic anemia Patient was previously seen by hematology on December 24, 2017 and at the time his anemia was felt to be anemia of chronic inflammation due to decreased red blood cell production and functional iron deficiency. However that hospitalization there was no suspected underlying bone marrow disorder, and patient had no evidence to suggest iron deficiency, occult blood loss. He responded well to blood transfusion Hgb 6.2 s/p transfusion 2units PRBCs. Likely 2/2 vancomycin. Hgb improved to 8.8, stable. iron studies indicative of anemia of chronic disease -GI following, no indication for GI procedures at this time secondary to recent GI workup and no obvious GI bleed. Recommend capsule endoscopy as outpatient. GI signed off. -Hematology consultation as needed -monitor H/H intermittently Pseudoaneurysm right brachial artery Doppler US neg for DVT but revealed a pseudoaneurysm which appears to emanate from the distal brachial artery measuring 3.6 x 2.2 by 2.2 cm. -Dr. Jensen consulted, appreciate assistance. No further intervention needed at this time. Patient able to have PICC line placed above antecubital fossa if needed. Chronic osteomyelitis, MRSA Bilateral foot wounds/ulcers -Continue on IV vancomycin with stop date 03/09 -Continue with wound care -Patient evaluated by Dr. Vu of podiatry, no surgical intervention needed at this time, appreciate recommendations -ID following, appreciate assistance. Continue on IV Vanco. PICC line placed . MRI studies of bilateral feet shows osteo. ID to discuss further with podiatry. Foul smelling diarrhea, resolved -unable to send stool for C diff as diarrhea resolved -monitor stooling History of CVA with left-sided hemiparesis Dysphagia ok to resume TF per GI -[employer] consulted, continue TF Glucerna 1.5 @ 65 mls/hr Diabetes mellitus -continue on accucheks and ISS -Blood sugar 140 this am -patient on Levemir 5u BID at home. Will continue to hold for now. Cover with sliding scale only. Hypertension/hyperlipidemia -Continue on home antihypertensives Coreg and hydralazine. Continue on Norvasc 10mg daily. BP improved but still elevated. Continue on current dose of HCTZ, may need to increase dose. Monitor electrolytes and kidney function intermittently. -Continue to monitor BP and adjust treatment accordingly -Continue on Lipitor Hypokalemia, resolved s/p repletion -monitor K level as indicated Seizure d/o -Continue on home dose of Keppra -seizure precautions -monitor for any seizure activity Psychiatric disorder/depression -Continue on home medications DVT prophylaxis: Bilateral SCDs, Heparin sq Discussed Condition With: patient, nursing staff, Dr. Snowden Discharge Planning: Not ready for discharge. Discharge pending ID clearance.
[2018-02-23] MEDS: levETIRAcetam 500 MG Tablet G-TUBE SCH ×3 (08:19→18:19)
[2018-02-23] MEDS: Escitalopram 10 MG Tablet G-TUBE SCH (08:20)
[2018-02-23] MEDS: Vancomycin Inj 1,500 MG in Sodium Chlor 0.9% Inj 500 ML IV.SIG SCH (08:22)
[2018-02-23] MEDS: amLODIPine 10 MG Tablet G-TUBE SCH (08:23)
[2018-02-23] MEDS ORDERED: Pharmacy Ordered Lab Info OTHER ONE (08:45)
--- NOTE | 2018-02-23 10:30 | P.PNID ---
Subjective Remarks: awake alert afebrile Both feet MRI + for osteo Antibiotics: vancomycin Allergies/Adverse Reactions: Allergies No Known Allergies Allergy (Unknown, Uncoded 01/06/18 21:04) Objective Vital Signs 02/22/18 12:00 02/22/18 16:00 02/22/18 20:00 Temperature 98.5 F 98.1 F 98.2 F Pulse Rate 87 78 75 Respiratory Rate 18 18 19 Blood Pressure 132/75 151/85 H 145/80 H Pulse Oximetry 94 L 94 L 95 02/23/18 00:00 02/23/18 04:00 02/23/18 08:00 Temperature 98 F 98 F 98.5 F Pulse Rate 80 80 78 Respiratory Rate 19 17 20 Blood Pressure 147/79 H 140/82 145/73 H Pulse Oximetry 94 L 95 96 Intake & Output 02/22/18 02/23/18 02/23/18 18:59 06:59 18:59 Intake Total 1293 / 1293 Balance 1293 / 1293 Weight 91.2 kg Intake: IV 515 / 515 Vancomycin Inj 1,500 MG In NS 515 / 515 Inj 500 ML @ 250 mls/hr IV.SIG Q18H [facility] Rx#:[id number] Tube Feeding 778 / 778 Other: # Voids 3 # Incontinent Voids 2 Date of Last Bowel Movement 02/22/18 # Bowel Movements 2 Lab - Hematology Results 02/22/18 06:58 WBC 4.5 RBC 2.91 L Hgb 8.8 L Hct 26.6 L MCV 91.3 MCH 30.0 MCHC 32.9 RDW 17.0 Plt Count 218 MPV 8.3 Lab - Chemistry Results 02/21/18 02/21/18 02/21/18 11:44 17:27 21:11 Sodium Potassium Chloride Carbon Dioxide Anion Gap BUN Creatinine Estimated GFR POC Glucose 128 H 161 H 148 H Random Glucose Calcium 02/22/18 02/22/18 02/22/18 06:58 07:30 18:22 Sodium 140 Potassium 4.5 Chloride 107 Carbon Dioxide 27.3 Anion Gap 6 BUN 23 H Creatinine 1.08 Estimated GFR 89 POC Glucose 125 H 137 H Random Glucose 127 H Calcium 8.2 L 02/22/18 02/23/18 02/23/18 20:20 07:28 07:30 Sodium Potassium Chloride Carbon Dioxide Anion Gap BUN Creatinine 1.11 Estimated GFR 86 L POC Glucose 129 H 140 H Random Glucose Calcium Imaging: ITS Impressions Abdomen/Pelvis CT 02/17/18 00:00 CONCLUSION: 1. Small bilateral pleural effusions and bilateral lower lung opacity again seen. 2. Mild splenomegaly again seen. 3. Gastrostomy tube in place. 4. No evidence of bowel dilatation. 5. Heterotopic ossification about the left hip again seen. 6. Calcified adrenal glands again seen. 7. Enlarged inguinal lymph nodes again seen. Venous Doppler Study 02/18/18 00:00 CONCLUSION: 1. No DVT or SVT. 2. 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 This measures 3.6 x 2.2 x 2.2 cm and is predominantly thrombosed with a small, 6 x 9 mm patent component showing biphasic flow. Central Venous Line 02/22/18 00:00 CONCLUSION: 1. Uncomplicated tunneled central venous Power PICC line placement. 2. The PICC line can be used immediately. Foot MRI 02/22/18 00:00 CONCLUSION: 1. Findings most characteristic of early osteomyelitis at the medial aspect of the first metatarsal head and a tiny focus of probable osteomyelitis at the medial corner of the proximal phalanx great toe. Mild surrounding cellulitis. 2. Previous partial amputation fifth metatarsal. Physical Exam: GENERAL: NAD SKIN: Warm and dry. HEAD: Atraumatic. Normocephalic. EYES: Pupils equal and round. No scleral icterus. No injection or drainage. ENT: No nasal bleeding or discharge. Mucous membranes pink and moist. NECK: Trachea midline. No JVD. CARDIOVASCULAR: Regular rate and rhythm. RESPIRATORY: No accessory muscle use. Clear to auscultation. Breath sounds equal bilaterally. GASTROINTESTINAL: Abdomen soft, non-tender, nondistended. Hepatic and splenic margins not palpable. PEG in place MUSCULOSKELETAL: Extremities without clubbing, cyanosis, or edema. No obvious deformities. B/l feet with dressings in place + drainage NEUROLOGICAL: Awake and alert. No obvious cranial nerve deficits. L side hemiplegia PSYCHIATRIC: Appropriate mood and affect; insight and judgment normal. Assessment and Plan - Plan B/L foot osteomyelitis MRSA, on vancomycin - trough level too high Anemia likely 2/2 vanco cont vancomycin will dw adult live in caregiver PICC
[2018-02-24] MEDS: Insulin NovoLOG Aspart Correctional Sugar Inj SQ SCH ×4 (07:14→20:26)
--- NOTE | 2018-02-24 07:33 | P.PN ---
Subjective Interval history: Follow up on patient with chronic osteo, MRSA, anemia, pseudoaneurysm right brachial artery. Patient seen and examined. Not in any distress. He denies any complaints but RN reports recurrence of loose stools. Afebrile. VSS except for elevated BP. Physical Exam Vital signs: Vital Signs 02/23/18 08:00 02/23/18 12:00 02/23/18 16:00 Temperature 98.5 F 98.6 F 98.8 F Pulse Rate 77 76 80 Respiratory Rate 20 20 20 Blood Pressure 145/73 H 152/75 H 159/84 H Pulse Oximetry 96 99 100 02/23/18 20:00 02/24/18 00:00 02/24/18 04:00 Temperature 98.4 F 99.1 F 99.5 F Pulse Rate 85 81 87 Respiratory Rate 18 Blood Pressure 151/85 H 141/85 H 160/90 H Pulse Oximetry 96 95 95 Intake & Output 02/23/18 02/24/18 02/24/18 18:59 06:59 18:59 Intake Total 515 / 515 Balance 515 / 515 Weight 89 kg Intake: IV 515 / 515 Vancomycin Inj 1,500 MG In NS 515 / 515 Inj 500 ML @ 250 mls/hr IV.SIG Q18H KRISTIE Rx#:[id number] Other: # Voids 2 # Incontinent Voids 1 Date of Last Bowel Movement 02/23/18 02/23/18 # Incontinent Bowel Movements 2 1 Narrative: GENERAL: WDWN male patient. Awake lying in bed. Nonverbal. Not in any distress. SKIN: Warm and dry. No generalized rash. Bilateral feet wrapped and in heel raiser boots bilaterally. HEAD: Atraumatic. Normocephalic. EYES: Pupils equal and round. No scleral icterus. No injection or drainage. ENT: No nasal bleeding or discharge. NECK: Trachea midline. CARDIOVASCULAR: Regular rate and rhythm. RESPIRATORY: No accessory muscle use. Poor effort. Clear to auscultation anteriorly. Breath sounds equal bilaterally. GASTROINTESTINAL: Abdomen soft, non-tender, nondistended. +PEG tube in place mid abdomen, site C/D/I MUSCULOSKELETAL: Extremities without clubbing, cyanosis. +spontaneous movement in RUE. LLE contracted. NEUROLOGICAL: Awake. Unable to assess motor function, patient not following commands. Nonverbal. PSYCHIATRIC: Calm. Results - Labs CBC & Chem 7: 02/24/18 10:02 02/24/18 10:02 Laboratory Results - last 24 hr 02/23/18 02/23/18 02/23/18 07:30 07:30 11:05 Creatinine 1.11 Estimated GFR 86 L POC Glucose 183 H Vancomycin Trough 33.9 H Random Vancomycin 02/23/18 02/23/18 02/24/18 16:19 21:55 06:30 Creatinine Estimated GFR POC Glucose 173 H 131 H Vancomycin Trough Random Vancomycin 35.0 02/24/18 06:58 Creatinine Estimated GFR POC Glucose 136 H Vancomycin Trough Random Vancomycin - Procedures s/p PICC line placement 02/22 Assessment and Plan - Assessment (1) Acute on chronic anemia Code(s): D64.9 - Anemia, unspecified Status: Acute (2) Anemia of chronic disorder Code(s): D63.8 - Anemia in other chronic diseases classified elsewhere Status : Acute (3) Pseudoaneurysm of brachial artery Code(s): I72.1 - Aneurysm of artery of upper extremity Status: Acute (4) Osteomyelitis Code(s): M86.9 - Osteomyelitis, unspecified Status: Acute (5) Diabetes Code(s): E11.9 - Type 2 diabetes mellitus without complications Status: Acute - Plan 47 year-old man with diabetes mellitus, hypertension, chronic anemia, chronic pain, 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 The patient had a CBC done as an outpatient and it showed a hemoglobin less than 7.0. Acute on chronic anemia Patient was previously seen by hematology on December 24, 2017 and at the time his anemia was felt to be anemia of chronic inflammation due to decreased red blood cell production and functional iron deficiency. However that hospitalization there was no suspected underlying bone marrow disorder, and patient had no evidence to suggest iron deficiency, occult blood loss. He responded well to blood transfusion. Hgb 6.2 s/p transfusion 2units PRBCs. Likely 2/2 vancomycin. Hgb improved, stable. iron studies indicative of anemia of chronic disease -GI following, no indication for GI procedures at this time secondary to recent GI workup and no obvious GI bleed. Recommend capsule endoscopy as outpatient. GI signed off. -Hematology consultation as needed -monitor H/H intermittently Pseudoaneurysm right brachial artery Doppler US neg for DVT but revealed a pseudoaneurysm which appears to emanate from the distal brachial artery measuring 3.6 x 2.2 by 2.2 cm. -Dr. Jensen consulted, appreciate assistance. No further intervention needed at this time. Patient able to have PICC line placed above antecubital fossa if needed. Chronic osteomyelitis, MRSA Bilateral foot wounds/ulcers -Continue on IV vancomycin with stop date 03/09 -Continue with wound care -Patient evaluated by Dr. Vu of podiatry, no surgical intervention needed at this time, appreciate recommendations -ID following, appreciate assistance. Continue on IV Vanco. PICC line placed . MRI studies of bilateral feet shows osteo. ID to discuss further with podiatry. Diarrhea DW nursing staff, loose but not watery, too formed to send for C diff -likely secondary to TF -monitor History of CVA with left-sided hemiparesis Dysphagia ok to resume TF per GI -Digital Project Manager consulted, continue TF Glucerna 1.5 @ 65 mls/hr Diabetes mellitus -continue on accucheks and ISS -Blood sugars running in the 100s -patient on Levemir 5u BID at home. Will continue to hold for now. Cover with sliding scale only. Hypertension/hyperlipidemia -Continue on home antihypertensives Coreg and hydralazine. Continue on Norvasc 10mg daily and HCTZ. BP improved but still elevated. Add Lisinopril 5mg daily. -Continue to monitor BP and adjust treatment accordingly -Continue on Lipitor Hypokalemia, resolved s/p repletion -monitor K level as indicated Seizure d/o -Continue on home dose of Keppra -seizure precautions -monitor for any seizure activity Psychiatric disorder/depression -Continue on home medications DVT prophylaxis: Bilateral SCDs, Heparin sq Discussed Condition With: patient, nursing staff, Dr. Snowden Discharge Planning: Not ready for discharge. Discharge pending ID and podiatry clearance.
[2018-02-24] MEDS: Carvedilol 12.5 MG Tablet G-TUBE SCH ×2 (08:28→20:26)
[2018-02-24] MEDS: Escitalopram 10 MG Tablet G-TUBE SCH (08:28)
[2018-02-24] MEDS: amLODIPine 10 MG Tablet G-TUBE SCH (08:28)
[2018-02-24] MEDS: levETIRAcetam 500 MG Tablet G-TUBE SCH ×3 (08:28→17:08)
[2018-02-24] MEDS: Heparin - SQ 10,000 UNITS/ML Vial SQ SCH ×2 (08:28→20:26)
[2018-02-24] MEDS: Ascorbic Acid 500 MG Tablet G-TUBE SCH ×2 (08:29→20:25)
[2018-02-24] MEDS: Senna/Docusate Sodium 8.6/50 MG Tablet G-TUBE SCH ×2 (08:30→20:26)
[2018-02-24 10:47] LABS: Baso % (Auto) 0.3 % (0.0-2.0); Eos # (Auto) 0.1 th/mm3 (0.0-0.4); Eos % (Auto) 3.1 % (0.0-4.0); Hematocrit 25.3 % (39.0-51.0); Hemoglobin 8.6 gm/dL (13.0-17.0); Lymph # (Auto) 0.9 th/mm3 (1.0-4.8); Lymph % (Auto) 19.5 % (9.0-44.0); Mean Corpuscular HGB Conc 34.1 % (32.0-36.0); Mean Platelet Volume 9.2 fL (7.0-11.0); Mono # (Auto) 0.4 th/mm3 (0.0-0.9); Mono % (Auto) 7.8 % (0.0-8.0); Neut # (Auto) 3.1 th/mm3 (1.8-7.7); Neut % (Auto) 69.3 % (16.0-70.0); Platelet Count 198 th/mm3 (150-450); Red Blood Count 2.78 mil/mm3 (4.50-5.90); Red Cell Distribution Width 16.6 % (11.6-17.2); White Blood Count 4.5 th/mm3 (4.0-11.0)
[2018-02-24 11:13] LABS: Calcium 7.7 mg/dL (8.5-10.1); Carbon Dioxide 27.9 meq/L (21.0-32.0); Magnesium 2.4 mg/dL (1.5-2.5); Phosphorus 3.6 mg/dL (2.5-4.9); Potassium 4.5 meq/L (3.5-5.1)
[2018-02-24] MEDS: Lisinopril 5 MG Tablet G-TUBE SCH (12:14)
[2018-02-25 06:31] LABS: Vancomycin,Random 20.5 Comment
--- NOTE | 2018-02-25 07:12 | P.PN ---
Subjective Interval history: No significant change. Patient is stable. Discussed with nursing staff, no acute issues noted overnight. Physical Exam Vital signs: Vital Signs 02/24/18 08:00 02/24/18 12:00 02/24/18 14:19 Temperature 96.4 F L 98.3 F Pulse Rate 89 83 83 Respiratory Rate 20 20 Blood Pressure 181/90 H 142/75 H Pulse Oximetry 100 95 02/24/18 16:00 02/24/18 18:00 02/24/18 20:00 Temperature 99.7 F H 99.3 F Pulse Rate 85 84 84 Respiratory Rate 20 18 Blood Pressure 138/67 141/76 H Pulse Oximetry 96 96 02/25/18 00:00 02/25/18 04:00 Temperature 99.1 F 99.5 F Pulse Rate 84 86 Respiratory Rate 18 18 Blood Pressure 155/80 H 153/84 H Pulse Oximetry 96 97 Intake & Output 02/24/18 02/25/18 02/25/18 18:59 06:59 18:59 Output Total 4 / 4 Balance -4 / -4 Weight 86.7 kg Output: Urine 3 / 3 Stool / Other: # Incontinent Voids 1 Date of Last Bowel Movement 02/24/18 02/23/18 # Incontinent Bowel Movements 1 Narrative: GENERAL: WDWN male patient, INAD. Awake lying in bed. Nonverbal. SKIN: Warm and dry. No generalized rash. Bilateral feet wrapped and in heel raiser boots bilaterally. HEAD: Atraumatic. Normocephalic. EYES: Pupils equal and round. No scleral icterus. No injection or drainage. ENT: No nasal bleeding or discharge. NECK: Trachea midline. CARDIOVASCULAR: Regular rate and rhythm. RESPIRATORY: No accessory muscle use. Poor effort. Clear to auscultation anteriorly. Breath sounds equal bilaterally. GASTROINTESTINAL: Abdomen soft, non-tender, nondistended. +PEG tube in place mid abdomen, site C/D/I MUSCULOSKELETAL: Extremities without clubbing, cyanosis. +spontaneous movement in RUE. LLE contracted. NEUROLOGICAL: Awake. Unable to assess motor function, patient not following commands. Nonverbal. PSYCHIATRIC: Calm. Results - Labs CBC & Chem 7: 02/24/18 10:02 02/25/18 05:30 Laboratory Results - last 24 hr 02/24/18 02/24/18 02/24/18 06:30 10:02 10:02 WBC 4.5 RBC 2.78 L Hgb 8.6 L Hct 25.3 L MCV 91.0 MCH 31.0 MCHC 34.1 RDW 16.6 Plt Count 198 MPV 9.2 Neut % (Auto) 69.3 Lymph % (Auto) 19.5 [place] % (Auto) 7.8 Eos % (Auto) 3.1 Baso % (Auto) 0.3 Neut # (Auto) 3.1 Lymph # (Auto) 0.9 L [place] # (Auto) 0.4 Eos # (Auto) 0.1 Baso # (Auto) 0.0 WBC Differential . Differential Comment Auto diff final Sodium 139 Potassium 4.5 Chloride 107 Carbon Dioxide 27.9 Anion Gap 4 L BUN 26 H Creatinine 1.28 Estimated GFR 73 L POC Glucose Random Glucose 136 H Calcium 7.7 L Phosphorus 3.6 Magnesium 2.4 Random Vancomycin 35.0 02/24/18 02/24/18 02/24/18 11:06 16:09 19:52 WBC RBC Hgb Hct MCV MCH MCHC RDW Plt Count MPV Neut % (Auto) Lymph % (Auto) [place] % (Auto) Eos % (Auto) Baso % (Auto) Neut # (Auto) Lymph # (Auto) [place] # (Auto) Eos # (Auto) Baso # (Auto) WBC Differential Differential Comment Sodium Potassium Chloride Carbon Dioxide Anion Gap BUN Creatinine Estimated GFR POC Glucose 165 H 147 H 109 Random Glucose Calcium Phosphorus Magnesium Random Vancomycin 02/25/18 05:30 WBC RBC Hgb Hct MCV MCH MCHC RDW Plt Count MPV Neut % (Auto) Lymph % (Auto) [place] % (Auto) Eos % (Auto) Baso % (Auto) Neut # (Auto) Lymph # (Auto) [place] # (Auto) Eos # (Auto) Baso # (Auto) WBC Differential Differential Comment Sodium Potassium Chloride Carbon Dioxide Anion Gap BUN Creatinine 1.34 H Estimated GFR 69 L POC Glucose Random Glucose Calcium Phosphorus Magnesium Random Vancomycin 20.5 - Procedures s/p PICC line placement 02/22 Assessment and Plan - Assessment (1) Acute on chronic anemia Code(s): D64.9 - Anemia, unspecified Status: Acute (2) Anemia of chronic disorder Code(s): D63.8 - Anemia in other chronic diseases classified elsewhere Status : Acute (3) Pseudoaneurysm of brachial artery Code(s): I72.1 - Aneurysm of artery of upper extremity Status: Acute (4) Osteomyelitis Code(s): M86.9 - Osteomyelitis, unspecified Status: Acute (5) Diabetes Code(s): E11.9 - Type 2 diabetes mellitus without complications Status: Acute - Plan 47 year-old man with diabetes mellitus, hypertension, chronic anemia, chronic pain, 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 The patient had a CBC done as an outpatient and it showed a hemoglobin less than 7.0. 02/25. Hold hydrochlorothiazide. May need to hold lisinopril as well. ? due to vancomycin. Give IVF. Repeat BMP in a.m. Acute on chronic anemia Patient was previously seen by hematology on December 24, 2017 and at the time his anemia was felt to be anemia of chronic inflammation due to decreased red blood cell production and functional iron deficiency. However that hospitalization there was no suspected underlying bone marrow disorder, and patient had no evidence to suggest iron deficiency, occult blood loss. He responded well to blood transfusion. Hgb 6.2 s/p transfusion 2units PRBCs. Likely 2/2 vancomycin. Hgb improved, stable. iron studies indicative of anemia of chronic disease -GI following, no indication for GI procedures at this time secondary to recent GI workup and no obvious GI bleed. Recommend capsule endoscopy as outpatient. GI signed off. -Hematology consultation as needed -monitor H/H intermittently Pseudoaneurysm right brachial artery Doppler US neg for DVT but revealed a pseudoaneurysm which appears to emanate from the distal brachial artery measuring 3.6 x 2.2 by 2.2 cm. -Dr. Jensen consulted, appreciate assistance. No further intervention needed at this time. Patient able to have PICC line placed above antecubital fossa if needed. Chronic osteomyelitis, MRSA Bilateral foot wounds/ulcers -Continue on IV vancomycin with stop date 03/09 -Continue with wound care -Patient evaluated by Dr. Vu of podiatry, no surgical intervention needed at this time, appreciate recommendations -ID following, appreciate assistance. Continue on IV Vanco. PICC line placed . MRI studies of bilateral feet shows osteo. ID to discuss further with podiatry. Diarrhea DW nursing staff, loose but not watery, too formed to send for C diff -likely secondary to TF -monitor History of CVA with left-sided hemiparesis Dysphagia ok to resume TF per GI -Cosmetic Assembler consulted, continue TF Glucerna 1.5 @ 65 mls/hr Diabetes mellitus -continue on accucheks and ISS -Blood sugars running in the 100s -patient on Levemir 5u BID at home. Will continue to hold for now. Cover with sliding scale only. Hypertension/hyperlipidemia -Continue on home antihypertensives Coreg and hydralazine. Continue on Norvasc 10mg daily and HCTZ. BP improved but still elevated. Add Lisinopril 5mg daily. -Continue to monitor BP and adjust treatment accordingly -Continue on Lipitor Hypokalemia, resolved s/p repletion -monitor K level as indicated Seizure d/o -Continue on home dose of Keppra -seizure precautions -monitor for any seizure activity Psychiatric disorder/depression -Continue on home medications DVT prophylaxis: Bilateral SCDs, Heparin sq Discussed Condition With: patient, nursing staff, Dr. Beltran Discharge Planning: Not ready for discharge. Discharge pending ID and podiatry clearance.
[2018-02-25] MEDS ORDERED: Sod Chloride 0.9% Inj 1,000 ML IV.CONT SCH (08:00)
[2018-02-25] MEDS: Insulin NovoLOG Aspart Correctional Sugar Inj SQ SCH ×4 (09:20→21:52)
[2018-02-25] MEDS: Carvedilol 12.5 MG Tablet G-TUBE SCH ×2 (09:21→21:52)
[2018-02-25] MEDS: levETIRAcetam 500 MG Tablet G-TUBE SCH ×3 (09:21→17:48)
[2018-02-25] MEDS: Lisinopril 5 MG Tablet G-TUBE SCH (09:22)
[2018-02-25] MEDS: Ascorbic Acid 500 MG Tablet G-TUBE SCH ×2 (09:22→21:52)
[2018-02-25] MEDS: Heparin - SQ 10,000 UNITS/ML Vial SQ SCH ×2 (09:22→21:52)
[2018-02-25] MEDS: amLODIPine 10 MG Tablet G-TUBE SCH (09:22)
[2018-02-25] MEDS: Senna/Docusate Sodium 8.6/50 MG Tablet G-TUBE SCH ×2 (09:22→21:52)
[2018-02-25] MEDS: Escitalopram 10 MG Tablet G-TUBE SCH (09:22)
[2018-02-25] MEDS ORDERED: Vancomycin Inj 1,500 MG in Sodium Chlor 0.9% Inj 500 ML IV.SIG ONE (13:00)
--- NOTE | 2018-02-25 15:42 | P.DIET ---
Nutritional Evaluation Type of nutrition evaluation: follow-up Nutrition consult regarding: Tube Feeding Nutrition screening: [facility] (pt has PEG) Subjective Subjective Comments: Pt resides at [facility]. Has PEG for nutrition. Objective - Diagnosis Anemia, Rectal Bleeding - Objective % IBW: 114 (IBW = 172#) Body Weight Used for Calculations: Actual (89.5 kg) Energy Needs - Lower Range (kCal/kg): 25 Energy Needs - Upper Range (kCal/kg): 30 Lower Limit kCal/kg (kCals): 2,238 Upper Limit kCal/kg (kCals): 2,685 Lower Limit Protein Factor (Grams per Kg): 1.0 Upper Limit Protein Factor (Grams per Kg): 1.5 Lower Protein Needs (Protein): 90 Upper Protein Needs (Protein): 134 Fluid Factor (ml/kg): 30 Estimated Fluid Needs (ml): 2,685 Dietitian Reviewed in Medical Record: Curent medications, Intake & Output, Labs , Medical history, Tube feeding, Wound/DTI Diet Order: NPO Wound Care Note: see WOCN dated 02/18 Objective Comments: Meds include Vit C, protonix Feeding - Current Tube Feeding Tube Feeding Product: Glucerna 1.5 Tube Feeding Rate: 65 Current kCals Provided by Tube Feedin,340 Current Protein Provided by Tube Feeding (gPRO): 129 Current Free H2O Provided (m/l): 1,184 Assessment Assessment: Pt is at high nutrition risk 2' to his dependence on TFing to meet nutritional needs. To meet needs with TFing, recommend continue Glucerna 1.5 @ 65 mls/hr to provide 2340 kcals, 129 gms protein and 1184 mls of free water. Labs, wts, wound notes and clinical course reviewed. CBW = 86.7 kg. LBM 02/23 Recommendations: Continue Glucerna 1.5 @ 65 mls/hr goal Dietitian to Monitor: Lab values, Intake & Output, Weight change, Wound/skin status (Initiation of TF), Medical course
--- NOTE | 2018-02-25 16:12 | P.PNID ---
Subjective Remarks: awake alert afebrile Both feet MRI + for osteo Antibiotics: vancomycin Allergies/Adverse Reactions: Allergies No Known Allergies Allergy (Unknown, Uncoded 01/06/18 21:04) Objective Vital Signs 02/24/18 18:00 02/24/18 20:00 02/25/18 00:00 Temperature 99.3 F 99.1 F Pulse Rate 84 84 84 Respiratory Rate 18 18 Blood Pressure 141/76 H 155/80 H Pulse Oximetry 96 96 02/25/18 04:00 02/25/18 08:00 02/25/18 11:43 Temperature 99.5 F 99.2 F Pulse Rate 86 86 85 Respiratory Rate 18 16 Blood Pressure 153/84 H 150/78 H Pulse Oximetry 97 96 02/25/18 12:00 02/25/18 13:54 Temperature 98.8 F Pulse Rate 80 81 Respiratory Rate 16 Blood Pressure 133/83 Pulse Oximetry 97 Intake & Output 02/24/18 02/25/18 02/25/18 18:59 06:59 18:59 Output Total 4 / 4 Balance -4 / -4 Weight 86.7 kg Output: Urine 3 / 3 Stool 1 / 1 Other: # Voids 1 # Incontinent Voids 1 Date of Last Bowel Movement 02/24/18 02/23/18 # Bowel Movements 1 # Incontinent Bowel Movements 1 Lab - Hematology Results 02/24/18 10:02 WBC 4.5 RBC 2.78 L Hgb 8.6 L Hct 25.3 L MCV 91.0 MCH 31.0 MCHC 34.1 RDW 16.6 Plt Count 198 MPV 9.2 Neut % (Auto) 69.3 Lymph % (Auto) 19.5 [place] % (Auto) 7.8 Eos % (Auto) 3.1 Baso % (Auto) 0.3 Neut # (Auto) 3.1 Lymph # (Auto) 0.9 L [place] # (Auto) 0.4 Eos # (Auto) 0.1 Baso # (Auto) 0.0 WBC Differential . Differential Comment Auto diff final Lab - Chemistry Results 02/23/18 02/23/18 02/24/18 16:19 21:55 06:58 Sodium Potassium Chloride Carbon Dioxide Anion Gap BUN Creatinine Estimated GFR POC Glucose 173 H 131 H 136 H Random Glucose Calcium Phosphorus Magnesium 02/24/18 02/24/18 02/24/18 10:02 11:06 16:09 Sodium 139 Potassium 4.5 Chloride 107 Carbon Dioxide 27.9 Anion Gap 4 L BUN 26 H Creatinine 1.28 Estimated GFR 73 L POC Glucose 165 H 147 H Random Glucose 136 H Calcium 7.7 L Phosphorus 3.6 Magnesium 2.4 02/24/18 02/25/18 02/25/18 19:52 05:30 07:47 Sodium Potassium Chloride Carbon Dioxide Anion Gap BUN Creatinine 1.34 H Estimated GFR 69 L POC Glucose 109 144 H Random Glucose Calcium Phosphorus Magnesium 02/25/18 12:31 Sodium Potassium Chloride Carbon Dioxide Anion Gap BUN Creatinine Estimated GFR POC Glucose 172 H Random Glucose Calcium Phosphorus Magnesium Imaging: ITS Impressions Abdomen/Pelvis CT 02/17/18 00:00 CONCLUSION: 1. Small bilateral pleural effusions and bilateral lower lung opacity again seen. 2. Mild splenomegaly again seen. 3. Gastrostomy tube in place. 4. No evidence of bowel dilatation. 5. Heterotopic ossification about the left hip again seen. 6. Calcified adrenal glands again seen. 7. Enlarged inguinal lymph nodes again seen. Venous Doppler Study 02/18/18 00:00 CONCLUSION: 1. No DVT or SVT. 2. 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 This measures 3.6 x 2.2 x 2.2 cm and is predominantly thrombosed with a small, 6 x 9 mm patent component showing biphasic flow. Central Venous Line 02/22/18 00:00 CONCLUSION: 1. Uncomplicated tunneled central venous Power PICC line placement. 2. The PICC line can be used immediately. Foot MRI 02/22/18 00:00 CONCLUSION: 1. Findings most characteristic of early osteomyelitis at the medial aspect of the first metatarsal head and a tiny focus of probable osteomyelitis at the medial corner of the proximal phalanx great toe. Mild surrounding cellulitis. 2. Previous partial amputation fifth metatarsal. Physical Exam: GENERAL: NAD SKIN: Warm and dry. HEAD: Atraumatic. Normocephalic. EYES: Pupils equal and round. No scleral icterus. No injection or drainage. ENT: No nasal bleeding or discharge. Mucous membranes pink and moist. NECK: Trachea midline. No JVD. CARDIOVASCULAR: Regular rate and rhythm. RESPIRATORY: No accessory muscle use. Clear to auscultation. Breath sounds equal bilaterally. GASTROINTESTINAL: Abdomen soft, non-tender, nondistended. Hepatic and splenic margins not palpable. PEG in place MUSCULOSKELETAL: Extremities without clubbing, cyanosis, or edema. No obvious deformities. B/l feet with dressings in place + drainage L foot with foul smelling greenish drainage NEUROLOGICAL: Awake and alert. No obvious cranial nerve deficits. L side hemiplegia PSYCHIATRIC: Appropriate mood and affect; insight and judgment normal. Assessment and Plan - Plan B/L foot osteomyelitis MRSA, on vancomycin - trough level too high Anemia likely 2/2 vanco cont vancomycin reconsult absorption plant operator helper consider L foot bx for culture PICC will adjust abx per culture
--- NOTE | 2018-02-26 06:58 | P.PN ---
Subjective Interval history: Follow-up on patient with chronic osteomyelitis. Patient seen and examined. No significant change. Patient indicates he has no complaints. Discussed with nursing staff, concerned about new wounds on buttock area. Physical Exam Vital signs: Vital Signs 02/25/18 08:00 02/25/18 11:43 02/25/18 12:00 Temperature 99.2 F 98.8 F Pulse Rate 86 85 80 Respiratory Rate 16 16 Blood Pressure 150/78 H 133/83 Pulse Oximetry 96 97 02/25/18 13:54 02/25/18 16:00 02/25/18 19:27 Temperature 98.7 F 98.2 F Pulse Rate 81 81 82 Respiratory Rate 16 16 Blood Pressure 127/75 138/75 Pulse Oximetry 96 95 02/25/18 20:00 02/25/18 23:42 02/26/18 01:58 Temperature 98.4 F Pulse Rate 81 75 76 Respiratory Rate 18 Blood Pressure 134/74 Pulse Oximetry 97 02/26/18 03:56 02/26/18 04:00 Temperature 97.8 F Pulse Rate 80 77 Respiratory Rate 18 Blood Pressure 136/73 Pulse Oximetry 98 Intake & Output 02/25/18 02/25/18 02/26/18 06:59 18:59 06:59 Intake Total 515 / 515 1914 Output Total 225 / 225 Balance 290 / 290 1914 Weight 86.7 kg 87.2 kg Intake: IV 515 / 515 1000 / 1000 NS Inj 1,000 ML @ 84 mls/hr IV. 1000 / 1000 CONT .[id number] [facility] Rx#:[id number] Vancomycin Inj 1,500 MG In NS 515 / 515 Inj 500 ML @ 250 mls/hr IV.SIG ONCE ONE Rx#:[id number] Tube Feeding 715 / 715 Water Bolus Amount 200 / 200 Output: Urine 225 / 225 Other: # Voids 1 # Incontinent Voids 1 4 Date of Last Bowel Movement 02/23/18 02/26/18 # Bowel Movements 1 # Incontinent Bowel Movements 1 3 Narrative: GENERAL: WDWN male patient, INAD. Awake lying in bed. Nonverbal. Appears comfortable. SKIN: Warm and dry. No generalized rash. Bilateral feet wrapped and in heel raiser boots bilaterally. HEAD: Atraumatic. Normocephalic. EYES: Pupils equal and round. No scleral icterus. No injection or drainage. ENT: No nasal bleeding or discharge. NECK: Trachea midline. CARDIOVASCULAR: Regular rate and rhythm. RESPIRATORY: No accessory muscle use. Poor effort. Clear to auscultation anteriorly. Breath sounds equal bilaterally. GASTROINTESTINAL: Abdomen soft, non-tender, nondistended. +PEG tube in place mid abdomen, site C/D/I MUSCULOSKELETAL: Extremities without clubbing, cyanosis. +spontaneous movement in RUE. LLE contracted. NEUROLOGICAL: Awake. Unable to assess motor function, patient not following commands. Nonverbal. PSYCHIATRIC: Calm. Results - Labs CBC & Chem 7: 02/24/18 10:02 02/26/18 05:45 Laboratory Results - last 24 hr 02/25/18 02/25/18 02/25/18 07:47 12:31 17:07 POC Glucose 144 H 172 H 156 H 02/25/18 19:24 POC Glucose 154 H - Imaging ITS Impressions Abdomen/Pelvis CT 02/17/18 00:00 CONCLUSION: 1. Small bilateral pleural effusions and bilateral lower lung opacity again seen. 2. Mild splenomegaly again seen. 3. Gastrostomy tube in place. 4. No evidence of bowel dilatation. 5. Heterotopic ossification about the left hip again seen. 6. Calcified adrenal glands again seen. 7. Enlarged inguinal lymph nodes again seen. Venous Doppler Study 02/18/18 00:00 CONCLUSION: 1. No DVT or SVT. 2. 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 This measures 3.6 x 2.2 x 2.2 cm and is predominantly thrombosed with a small, 6 x 9 mm patent component showing biphasic flow. Central Venous Line 02/22/18 00:00 CONCLUSION: 1. Uncomplicated tunneled central venous Power PICC line placement. 2. The PICC line can be used immediately. Foot MRI 02/22/18 00:00 CONCLUSION: 1. Findings most characteristic of early osteomyelitis at the medial aspect of the first metatarsal head and a tiny focus of probable osteomyelitis at the medial corner of the proximal phalanx great toe. Mild surrounding cellulitis. 2. Previous partial amputation fifth metatarsal. - Procedures s/p PICC line placement 02/22 Assessment and Plan - Assessment (1) Acute on chronic anemia Code(s): D64.9 - Anemia, unspecified Status: Acute (2) Anemia of chronic disorder Code(s): D63.8 - Anemia in other chronic diseases classified elsewhere Status : Acute (3) Pseudoaneurysm of brachial artery Code(s): I72.1 - Aneurysm of artery of upper extremity Status: Acute (4) Osteomyelitis Code(s): M86.9 - Osteomyelitis, unspecified Status: Acute (5) Diabetes Code(s): E11.9 - Type 2 diabetes mellitus without complications Status: Acute - Plan 47 year-old man with diabetes mellitus, hypertension, chronic anemia, chronic pain, 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 The patient had a CBC done as an outpatient and it showed a hemoglobin less than 7.0. 02/26. Cr improved. Corrected calcium 7.3. IV repletion ordered. Repeat BMP in am to monitor response. DW Dr. Paul, Dr. Morrison to evaluate patient for biopsy. Acute on chronic anemia Patient was previously seen by hematology on December 24, 2017 and at the time his anemia was felt to be anemia of chronic inflammation due to decreased red blood cell production and functional iron deficiency. However that hospitalization there was no suspected underlying bone marrow disorder, and patient had no evidence to suggest iron deficiency, occult blood loss. He responded well to blood transfusion. Hgb 6.2 s/p transfusion 2units PRBCs. Likely 2/2 vancomycin. Hgb improved, stable. iron studies indicative of anemia of chronic disease -GI following, no indication for GI procedures at this time secondary to recent GI workup and no obvious GI bleed. Recommend capsule endoscopy as outpatient. GI signed off. -Hematology consultation as needed -monitor H/H intermittently Pseudoaneurysm right brachial artery Doppler US neg for DVT but revealed a pseudoaneurysm which appears to emanate from the distal brachial artery measuring 3.6 x 2.2 by 2.2 cm. -Dr. Jensen consulted, appreciate assistance. No further intervention needed at this time. Patient able to have PICC line placed above antecubital fossa if needed. Chronic osteomyelitis, MRSA Bilateral foot wounds/ulcers -Continue on IV vancomycin with stop date 03/09 -Continue with wound care -Patient evaluated by Dr. Vu of podiatry, no surgical intervention needed at this time, appreciate recommendations -ID following, appreciate assistance. Continue on IV Vanco. PICC line placed . MRI studies of bilateral feet shows osteo. ID to discuss further with podiatry. Diarrhea DW nursing staff, loose but not watery, too formed to send for C diff -likely secondary to TF -monitor History of CVA with left-sided hemiparesis Dysphagia ok to resume TF per GI -Continuity Writer consulted, continue TF Glucerna 1.5 @ 65 mls/hr Diabetes mellitus -continue on accucheks and ISS -Blood sugars running in the 100s -patient on Levemir 5u BID at home. Will continue to hold for now. Cover with sliding scale only. Hypertension/hyperlipidemia -Continue on home antihypertensives Coreg and hydralazine. Continue on Norvasc 10mg daily and HCTZ. BP improved but still elevated. Add Lisinopril 5mg daily. -Continue to monitor BP and adjust treatment accordingly -Continue on Lipitor Hypokalemia, resolved s/p repletion -monitor K level as indicated Seizure d/o -Continue on home dose of Keppra -seizure precautions -monitor for any seizure activity Psychiatric disorder/depression -Continue on home medications DVT prophylaxis: Bilateral SCDs, Heparin sq Discussed Condition With: patient, nursing staff, Dr. Paul, Dr. Beltran Discharge Planning: Not ready for discharge. Discharge pending ID and podiatry clearance.
[2018-02-26 07:10] LABS: Anion Gap 4 meq/L (5-15); Blood Urea Nitrogen 26 mg/dL (7-18); Calcium 7.1 mg/dL (8.5-10.1); Carbon Dioxide 27.1 meq/L (21.0-32.0); Chloride 112 meq/L (98-107); Glomerular Filtration Rate Greater Than 89 mL/min (>89); Glucose,Random 121 mg/dL (74-106); Potassium 4.1 meq/L (3.5-5.1); Sodium 143 meq/L (136-145); Vancomycin,Random 23.3 Comment
[2018-02-26 07:35] LABS: Total Protein 6.7 g/dL (6.4-8.2)
[2018-02-26] MEDS: Insulin NovoLOG Aspart Correctional Sugar Inj SQ SCH ×4 (08:03→21:04)
[2018-02-26] MEDS: Carvedilol 12.5 MG Tablet G-TUBE SCH ×2 (08:58→20:38)
[2018-02-26] MEDS: amLODIPine 10 MG Tablet G-TUBE SCH (08:58)
[2018-02-26] MEDS: levETIRAcetam 500 MG Tablet G-TUBE SCH ×3 (08:58→18:23)
[2018-02-26] MEDS: Escitalopram 10 MG Tablet G-TUBE SCH (08:59)
[2018-02-26] MEDS: Lisinopril 5 MG Tablet G-TUBE SCH (08:59)
[2018-02-26] MEDS: Ascorbic Acid 500 MG Tablet G-TUBE SCH ×2 (08:59→20:39)
[2018-02-26] MEDS: Heparin - SQ 10,000 UNITS/ML Vial SQ SCH ×2 (08:59→20:38)
[2018-02-26] MEDS: Senna/Docusate Sodium 8.6/50 MG Tablet G-TUBE SCH ×2 (09:00→23:17)
[2018-02-26] MEDS ORDERED: Calcium Gluconate Inj 1 GM in Sodium Chlor 0.9% Inj 100 ML IV.SIG ONE (12:13)
[2018-02-26] MEDS ORDERED: Vancomycin Inj 1,500 MG in Sodium Chlor 0.9% Inj 500 ML IV.SIG ONE (12:30)
[2018-02-26] MEDS ORDERED: Calcium Chloride Inj 0.34 GM in Sodium Chlor 0.9% Inj 100 ML IV.SIG ONE (13:00)
--- NOTE | 2018-02-26 17:23 | P.PNPOD ---
Subjective Interval history: Patient responds minimally verbal, more body language and blinking, he is in no acute distress Physical Exam Vital signs: Vital Signs 02/25/18 19:27 02/25/18 20:00 02/25/18 23:42 Temperature 98.2 F 98.4 F Pulse Rate 82 81 75 Respiratory Rate 16 18 Blood Pressure 138/75 134/74 Pulse Oximetry 95 97 02/26/18 01:58 02/26/18 03:56 02/26/18 04:00 Temperature 97.8 F Pulse Rate 76 80 77 Respiratory Rate 18 Blood Pressure 136/73 Pulse Oximetry 98 02/26/18 08:00 02/26/18 10:09 02/26/18 12:00 Temperature 98.6 F 98 F Pulse Rate 84 81 85 Respiratory Rate 16 16 Blood Pressure 133/76 137/91 H Pulse Oximetry 95 95 02/26/18 12:56 02/26/18 16:00 Temperature 98 F Pulse Rate 80 86 Respiratory Rate 18 Blood Pressure 146/88 H Pulse Oximetry 96 Intake & Output 02/25/18 02/26/18 02/26/18 18:59 06:59 18:59 Intake Total 515 / 515 1914 / 1914 515 / 515 Output Total 225 / 225 Balance 290 / 290 1914 / 1914 515 / 515 Weight 87.2 kg Intake: IV 515 / 515 1000 / 1000 515 / 515 NS Inj 1,000 ML @ 84 mls/hr IV. 1000 / 1000 CONT .[id number] [facility] Rx#:[id number] Vancomycin Inj 1,500 MG In NS 515 / 515 515 / 515 Inj 500 ML @ 250 mls/hr IV.SIG ONCE ONE Rx#:[id number] Tube Feeding 715 / 715 Water Bolus Amount 200 / 200 Output: Urine 225 / 225 Other: # Voids 1 1 # Incontinent Voids 4 Date of Last Bowel Movement 02/26/18 # Bowel Movements 1 1 # Incontinent Bowel Movements 3 Narrative: Bilateral lower extremities are examined Left leg is severely contracted and there is fifth metatarsal ulcer with mixed fibrotic granular serous draining fluid approximately 7 x 2 cm deep tissue may be exposed at this time, pulses are not is easy to palpate Right lower extremity stable eschar of the distal first MPJ with no exposed bone ulceration of the plantar aspect of the foot sub-metatarsal head ulceration is approximately 2 cm 2 cm serous drainage it appears to probe deep right lower extremity there is actual palpable pedal pulse Medications and Allergies Active Medications: Active Medications Al Hydroxide/Mg Hydroxide (Milk Of Magnsimón Liq) 30 ml G-TUBE Q12H PRN PRN Reason: Mild Constipation Amlodipine Besylate (Norvasc) 10 mg G-TUBE DAILY [facility] Last Admin: 02/26/18 08:58 Dose: 10 mg Ascorbic Acid (Vitamin C) 500 mg G-TUBE BID [facility] Last Admin: 02/26/18 08:59 Dose: 500 mg Atorvastatin Calcium (Lipitor) 10 mg G-TUBE HS [facility] Last Admin: 02/25/18 21:52 Dose: 10 mg Bisacodyl (Dulcolax Supp) 10 mg RECTAL DAILY PRN PRN Reason: SEVERE CONSITIPATION Carvedilol (Coreg) 25 mg G-TUBE BID [facility] Last Admin: 02/26/18 08:58 Dose: 25 mg Dextrose (D50w Vial) 50 ml IV.PUSH UNSCH PRN PRN Reason: PER HYPOGLYCEMIA PROTOCOL Last Admin: 02/17/18 20:55 Dose: 50 ml Enalaprilat (Vasotec Inj) 2.5 mg IV.PUSH Q6H PRN PRN Reason: SBP>160, DBP>90 Last Admin: 02/21/18 01:34 Dose: 2.5 mg Escitalopram Oxalate (Lexapro) 15 mg G-TUBE DAILY [facility] Last Admin: 02/26/18 08:59 Dose: 15 mg Glucagon (Glucagon Inj) 1 mg OTHER PRN PRN PRN Reason: for Hypoglycemia Protocol Heparin Sodium (Porcine) (Heparin Inj) 5,000 units SQ Q12HR [facility] Last Admin: 02/26/18 08:59 Dose: 5,000 units Hydralazine HCl (Apresoline) 100 mg G-TUBE TID [facility] Last Admin: 02/26/18 12:24 Dose: 100 mg Hydrochlorothiazide (Microzide) 12.5 mg G-TUBE DAILY [facility] Last Admin: 02/24/18 08:28 Dose: 12.5 mg Pharmacy Profile Note (Vancomycin Consult Pharmacy) 0 mls @ 0 mls/hr OTHER UNSCH [facility] Insulin Aspart (Novolog Insulin Correctional Sugar Inj) 0 unit SQ ACHS [facility]; Protocol Last Admin: 02/26/18 12:24 Dose: 2 unit Insulin Detemir (Levemir Inj) 5 unit SQ BID [facility] Last Admin: 02/18/18 11:01 Dose: Not Given Lactulose (Lactulose Liq) 30 ml G-TUBE DAILY PRN PRN Reason: SEVERE CONSITIPATION Lansoprazole (Prevacid Solutab) 30 mg NG/OG DAILY [facility] Last Admin: 02/26/18 08:59 Dose: 30 mg Levetiracetam (Keppra) 500 mg G-TUBE TID [facility] Last Admin: 02/26/18 12:24 Dose: 500 mg Lisinopril (Prinivil) 5 mg G-TUBE DAILY [facility] Last Admin: 02/26/18 08:59 Dose: 5 mg Miscellaneous (Pill Splitter) 1 each OTHER ONCE [facility] Ondansetron HCl (Zofran Inj) 4 mg IV.PUSH Q6H PRN PRN Reason: NAUSEA OR VOMITING Senna/Docusate Sodium (Jessie-Colace) 1 tab G-TUBE BID [facility] Last Admin: 02/26/18 09:00 Dose: Not Given Sennosides (Senokot) 17.2 mg PO Q12H PRN PRN Reason: Moderate Constipation Temazepam (Restoril) 15 mg PO HS PRN PRN Reason: INSOMNIA Allergies Allergy/AdvReac Type Severity Reaction Status Date / Time No Known Allergies Allergy Unknown Uncoded 01/06/18 21:04 Home Medications Medication Instructions Recorded Confirmed Type ascorbic acid (vitamin C) [Vitamin 500 mg PO BID 01/15/18 02/17/18 History C] aspirin [Aspir-81] 81 mg FEEDING TUBE DAILY 01/15/18 02/17/18 History atorvastatin 10 mg FEEDING TUBE HS 01/15/18 02/17/18 History carvedilol [Coreg] 25 mg FEEDING TUBE BID 01/15/18 02/17/18 History escitalopram oxalate 15 mg FEEDING TUBE DAILY 01/15/18 02/17/18 History gentamicin 1 applic TOPICAL QID 01/15/18 02/17/18 History hydralazine 100 mg PO TID 01/15/18 02/17/18 History insulin detemir U-100 [Levemir 5 unit SUB-Q BID 01/15/18 02/17/18 History U-100 Insulin] ipratropium-albuterol 3 ml INHALATION Q6-8H PRN 01/15/18 02/17/18 History levetiracetam 500 mg PO TID 01/15/18 02/17/18 History melatonin 3 mg FEEDING TUBE HS 01/15/18 02/17/18 History insulin aspart U-100 [Novolog 1 sliding scale dose SUB-Q UD 02/17/18 02/17/18 History U-100 Insulin aspart] Results - Labs CBC & Chem 7: 02/24/18 10:02 02/26/18 05:45 Laboratory Results - last 24 hr 02/25/18 02/26/18 02/26/18 19:24 05:45 07:48 Sodium 143 Potassium 4.1 Chloride 112 H Carbon Dioxide 27.1 Anion Gap 4 L BUN 26 H Creatinine 1.07 Estimated GFR Greater than 89 POC Glucose 154 H 137 H Random Glucose 121 H Calcium 7.1 L* Prot Corrected Calcium 7.3 L* Total Protein 6.7 Random Vancomycin 23.3 02/26/18 12:03 Sodium Potassium Chloride Carbon Dioxide Anion Gap BUN Creatinine Estimated GFR POC Glucose 193 H Random Glucose Calcium Prot Corrected Calcium Total Protein Random Vancomycin - Imaging RADIOLOGY CONSULTATION REPORT Continued Ordered By: Patient Name: Sandra Almendarez MD MR#: Loc: [id number] N05 1507-A : Age: 01 1970 47 Order #: [id number] Page 2 of 2 Signed Report #:[id number] Provider [facility] DEPARTMENT OF RADIOLOGY [address] [facility] [place] [address] [address] [place] [address] [address] [place] [address] RADIOLOGY CONSULTATION REPORT Ordered By: Cris Paul MD MR#: Loc: [id number] [id number] 1507-A : Age: 01 1970 47 Order #: [id number] Page 1 of 2 Signed Report #:[id number] Provider ManuelSandra MR foot LT w/wo contrast Signed EXAM DATE: 02/22/2018 5:37 PM EDT AGE/SEX: 47 years / Male INDICATIONS: Osteomyelitis. Wound medial side of left foot 1st digit by MTPJ. CLINICAL DATA: This is the patient's initial encounter. Patient reports that signs and symptoms have been present for 3 weeks and indicates a pain score of 3 /10. MEDICAL/SURGICAL HISTORY: Stroke. Hypertension. CABG. COMPARISON: No prior exams available for comparison. TECHNIQUE: Multiplanar, multisequence MRI examination was performed without contrast and after the intravenous administration of 9 ml Gadavist (gadobutrol) single exam dose. FINDINGS: There is some marrow edema and marrow enhancement at the medial aspect of the first metatarsal head with a tiny focus of marrow signal abnormality in the proximal phalanx. Findings are most characteristic of an early osteomyelitis. There is partial amputation of the fifth metatarsal. No other abnormal marrow enhancement identified. CONCLUSION: 1. Findings most characteristic of early osteomyelitis at the medial aspect of the first metatarsal head and a tiny focus of probable osteomyelitis at the medial corner of the proximal phalanx great toe. Mild surrounding cellulitis. 2. Previous partial amputation fifth metatarsal. Electronically signed by: Rex Gamez MD 02/22/2018 5:46 PM EDT RADIOLOGY CONSULTATION REPORT Continued Ordered By: Patient Name: Cris Paul MD Sandra Jackson MR#: Loc: [id number] [id number] 1507-A : Age: 01 1970 47 Order #: [id number] Page 2 of 2 Signed Report #:[id number] Provider [facility] DEPARTMENT OF RADIOLOGY [address] [place] [address] [address] [facility] [place] [address] [address] [place] [address] RADIOLOGY CONSULTATION REPORT Ordered By: Cris Paul MD MR#: Loc: [id number] [id number] 1507-A : Age: 01 1970 47 Order #: [id number] Page 1 of 2 Signed Report #:[id number] Provider Sandra Jackson MR foot RT w/wo contrast Signed EXAM DATE: 02/22/2018 12:43 PM EDT AGE/SEX: 47 years / Male INDICATIONS: Osteomyelitis. CLINICAL DATA: This is the patient's initial encounter. Patient reports that signs and symptoms have been present for 3 weeks and indicates a pain score of 3 /10. MEDICAL/SURGICAL HISTORY: Stroke. Hypertension. CABG. COMPARISON: No prior exams available for comparison. TECHNIQUE: Multiplanar, multisequence MRI examination was performed without contrast and after the intravenous administration of 9 ml Gadavist (gadobutrol) single exam dose. FINDINGS: The exam is degraded by fairly extensive motion artifact on some sequences there is abnormal marrow edema and marrow enhancement in the mid and distal shaft of the fifth metatarsal characteristic of osteomyelitis. There is some surrounding cellulitis. No other foci of osteomyelitis are identified on MRI. Mild degenerative changes are present. There is some edematous change in the soft tissues predominantly in the forefoot. CONCLUSION: 1. Osteomyelitis of the mid and distal fifth metatarsal with erosive changes at the fifth metatarsal head. There is surrounding cellulitis and edematous changes in the soft tissues of the foot. No other areas of osteomyelitis identified. Electronically signed by: Rex Gamez MD 02/22/2018 1:29 PM EDT - Procedures s/p PICC line placement 02/22 Assessment and Plan - Assessment (1) Foot ulcer, right Code(s): L97.519 - Non-pressure chronic ulcer of other part of right foot with unspecified severity Status: Acute (2) Foot ulcer, left Code(s): L97.529 - Non-pressure chronic ulcer of other part of left foot with unspecified severity Status: Resolved (3) Osteomyelitis of ankle and foot Code(s): M86.9 - Osteomyelitis, unspecified Status: Acute - Plan I reviewed case with infectious disease. The patient is having complications of anemia due to the vancomycin. The best course of action would be eradication and source control of the osteomyelitis and bacteria. The patient is a poor candidate for partial amputation however he refuses discussion regarding [id number] amputation and he will likely need above-knee amputation given his contracted state. My recommendation is arterial Doppler to evaluate the circulation before proceeding with a possible limb salvage procedure including partial ray resection and selective bone amputation sparing the limb. I will advise pending arterial Doppler.
--- NOTE | 2018-02-26 19:50 | ECHRPT ---
EXAM DATE: 02/26/2018 7:13 PM EDT AGE/SEX: 47 years / Male INDICATIONS: osteomyelitis CLINICAL DATA: This is the patient's initial encounter. Patient reports that signs and symptoms have been present for 3 months and indicates a pain score of 5/10. MEDICAL/SURGICAL HISTORY: . anemia, CVA, depression, diabetes, gastrostomy tube, hemiparesis, h emiplegia, hyperlipidemia, hypertension . COMPARISON: No prior exams available for comparison. TECHNIQUE: Four-cuff ankle and brachial pressures were obtained. Pulse cuff waveform tracings of the ankles were recorded, and ankle-brachial indices were calculated. PRESSURES (mmHg): Brachial (arm) : RIGHT: no b/p or stick, LEFT: 160 Ankle : RIGHT: 173, LEFT: 174 BALJINDER : RIGHT: 1.08, LEFT: 1.09 TBI : RIGHT: 0.92, LEFT: 0.94 FINDINGS: Pulsed-Cuff Waveform: There are good upstroke and a dicrotic downstroke of the tracings. Other: None. CONCLUSION: 1. Normal ABIs bilaterally. Electronically signed by: Moris Paige MD 02/26/2018 7:49 PM EDT
[2018-02-26] MEDS: Temazepam 15 MG Capsule PO PRN (21:03)
--- NOTE | 2018-02-27 07:25 | P.PN ---
Subjective Interval history: Follow-up on patient with chronic osteomyelitis. Patient seen and examined. Patient remains stable. No significant change. Patient indicates nonverbally by shaking his head he has no acute medical complaints. Discussed with nursing staff. BP uncontrolled this am. Physical Exam Vital signs: Vital Signs 02/26/18 08:00 02/26/18 10:09 02/26/18 12:00 Temperature 98.6 F 98 F Pulse Rate 84 81 85 Respiratory Rate 16 16 Blood Pressure 133/76 137/91 H Pulse Oximetry 95 95 02/26/18 12:56 02/26/18 16:00 02/26/18 20:00 Temperature 98 F 97.7 F Pulse Rate 80 86 82 Respiratory Rate 18 18 Blood Pressure 146/88 H 161/90 H Pulse Oximetry 96 95 02/27/18 00:00 Temperature 98.1 F Pulse Rate 88 Respiratory Rate 18 Blood Pressure 175/97 H Pulse Oximetry 94 L Intake & Output 02/26/18 02/27/18 02/27/18 18:59 06:59 18:59 Intake Total 618.4 / 618.4 900 / 900 Balance 618.4 / 618.4 900 / 900 Intake: IV 618.4 / 618.4 Calcium Chloride Inj 0.34 GM In 103.4 / 103.4 NS Inj 100 ML @ 103.4 mls/hr IV.SIG ONCE ONE Rx#:[id number] Vancomycin Inj 1,500 MG In NS 515 / 515 Inj 500 ML @ 250 mls/hr IV.SIG ONCE ONE Rx#:[id number] Tube Feeding 780 / 780 Water Bolus Amount 120 / 120 Other: # Voids 1 3 # Bowel Movements 1 1 Narrative: GENERAL: WDWN male patient. Awake lying in bed. Nonverbal, responds with shaking head yes/no. Appears comfortable. Not in any distress. SKIN: Warm and dry. No generalized rash. Bilateral feet wrapped and in heel raiser boots bilaterally. HEENT: Atraumatic. Normocephalic. Pupils equal and round. No scleral icterus. No injection or drainage. No nasal bleeding or discharge. NECK: Trachea midline. Airway patent. CARDIOVASCULAR: Tachycardic. No murmur appreciated. RESPIRATORY: No accessory muscle use. Poor effort. Clear to auscultation anteriorly. Breath sounds equal bilaterally. GASTROINTESTINAL: Abdomen soft, non-tender, nondistended. +PEG tube in place mid abdomen, site C/D/I MUSCULOSKELETAL: Extremities without clubbing, cyanosis. +spontaneous movement in RUE. LLE contracted. NEUROLOGICAL: Awake and alert. Unable to assess motor function, patient not following commands. Nonverbal. PSYCHIATRIC: Calm. Results - Labs CBC & Chem 7: 02/24/18 10:02 02/27/18 06:42 Laboratory Results - last 24 hr 02/26/18 02/26/18 02/26/18 05:45 07:48 12:03 POC Glucose 137 H 193 H Prot Corrected Calcium 7.3 L* Total Protein 6.7 02/26/18 02/26/18 02/27/18 17:11 20:43 07:03 POC Glucose 169 H 187 H 161 H Prot Corrected Calcium Total Protein - Imaging Impressions Extremity Arterial Study 02/26/18 00:00 CONCLUSION: 1. Normal ABIs bilaterally. - Procedures s/p PICC line placement 02/22 Assessment and Plan - Assessment (1) Acute on chronic anemia Code(s): D64.9 - Anemia, unspecified Status: Acute (2) Anemia of chronic disorder Code(s): D63.8 - Anemia in other chronic diseases classified elsewhere Status : Acute (3) Pseudoaneurysm of brachial artery Code(s): I72.1 - Aneurysm of artery of upper extremity Status: Acute (4) Osteomyelitis Code(s): M86.9 - Osteomyelitis, unspecified Status: Acute (5) Diabetes Code(s): E11.9 - Type 2 diabetes mellitus without complications Status: Acute - Plan 47 year-old man with diabetes mellitus, hypertension, chronic anemia, chronic pain, 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 The patient had a CBC done as an outpatient and it showed a hemoglobin less than 7.0. 02/27. BP 188/100. Continue on current antihypertensive regimen for now with prn coverage. We will continue to monitor BP closely and adjust treatment as indicated. Patient evaluated by Dr. Morrison, will likely need above-knee amputation given his LLE contraction. ABIs ordered by Podiatry normal bilaterally. Will d/w Dr. Morrison surgical options moving forward. Acute on chronic anemia Likely due to IV Vancomycin Patient was previously seen by hematology on December 24, 2017 and at the time his anemia was felt to be anemia of chronic inflammation due to decreased red blood cell production and functional iron deficiency. However that hospitalization there was no suspected underlying bone marrow disorder, and patient had no evidence to suggest iron deficiency, occult blood loss. He responded well to blood transfusion. Hgb 6.2 s/p transfusion 2units PRBCs. Likely 2/2 vancomycin. Hgb improved, stable. iron studies indicative of anemia of chronic disease -GI following, no indication for GI procedures at this time secondary to recent GI workup and no obvious GI bleed. Recommend capsule endoscopy as outpatient. GI signed off. -Hematology consultation as needed -monitor H/H intermittently Pseudoaneurysm right brachial artery Doppler US neg for DVT but revealed a pseudoaneurysm which appears to emanate from the distal brachial artery measuring 3.6 x 2.2 by 2.2 cm. -Dr. Jensen consulted, appreciate assistance. No further intervention needed at this time. Patient able to have PICC line placed above antecubital fossa if needed. Chronic osteomyelitis, MRSA Bilateral foot wounds/ulcers -Continue on IV vancomycin with stop date 03/09 -Continue with wound care -Patient evaluated by Dr. Vu of podiatry, no surgical intervention needed at this time, appreciate recommendations -ID following, appreciate assistance. Continue on IV Vanco. PICC line placed . MRI studies of bilateral feet shows osteo. -Podiatry following, appreciate assistance. ?Left AKA for source eradication Diarrhea DW nursing staff, loose but not watery, too formed to send for C diff -likely secondary to TF -monitor History of CVA with left-sided hemiparesis Dysphagia ok to resume TF per GI -Technical Business Analyst consulted, continue TF Glucerna 1.5 @ 65 mls/hr Diabetes mellitus -continue on accucheks and ISS -Blood sugars running in the 100s -patient on Levemir 5u BID at home. Will continue to hold for now. Cover with sliding scale only. Hypertension/hyperlipidemia -Continue on home antihypertensives Coreg, hydralazine, Norvasc and lisinopril. May need to increase lisinopril dose if BPs remain elevated -Continue to monitor BP and adjust treatment accordingly -Continue on Lipitor Hypokalemia, resolved s/p repletion -monitor K level as indicated Seizure d/o -Continue on home dose of Keppra -seizure precautions -monitor for any seizure activity Psychiatric disorder/depression -Continue on home medications DVT prophylaxis: Bilateral SCDs, Heparin sq Discussed Condition With: patient, nursing staff, Dr. Beltran Discharge Planning: Not ready for discharge. Discharge pending ID and podiatry clearance.
[2018-02-27 07:32] LABS: Calcium 8.3 mg/dL (8.5-10.1); Carbon Dioxide 26.7 meq/L (21.0-32.0); Potassium 4.6 meq/L (3.5-5.1); Vancomycin,Random 27.6 Comment
[2018-02-27] MEDS: Ascorbic Acid 500 MG Tablet G-TUBE SCH ×2 (08:23→22:07)
[2018-02-27] MEDS: Lisinopril 5 MG Tablet G-TUBE SCH (08:23)
[2018-02-27] MEDS: Heparin - SQ 10,000 UNITS/ML Vial SQ SCH ×2 (08:24→22:07)
[2018-02-27] MEDS: Escitalopram 10 MG Tablet G-TUBE SCH (08:24)
[2018-02-27] MEDS: Carvedilol 12.5 MG Tablet G-TUBE SCH ×2 (08:24→22:07)
[2018-02-27] MEDS: levETIRAcetam 500 MG Tablet G-TUBE SCH ×3 (08:24→17:10)
[2018-02-27] MEDS: amLODIPine 10 MG Tablet G-TUBE SCH (08:24)
[2018-02-27] MEDS: Senna/Docusate Sodium 8.6/50 MG Tablet G-TUBE SCH ×2 (08:24→22:08)
[2018-02-27] MEDS: Insulin NovoLOG Aspart Correctional Sugar Inj SQ SCH ×4 (08:25→22:22)
--- NOTE | 2018-02-28 07:38 | P.PN ---
Subjective Interval history: Patient remained stable. No significant change. Podiatry following for bilateral chronic osteo. Vital signs are stable. He is afebrile. Indicates by shaking his head no that he has no acute medical complaints. Physical Exam Vital signs: Vital Signs 02/27/18 08:00 02/27/18 12:00 02/27/18 14:24 Temperature 97.4 F L 97.6 F Pulse Rate 97 H 90 Respiratory Rate 18 18 12 Blood Pressure 188/100 H 163/80 H Pulse Oximetry 95 02/27/18 16:00 02/27/18 18:01 02/27/18 19:31 Temperature 97.9 F 98.1 F Pulse Rate 80 80 83 Respiratory Rate 18 18 Blood Pressure 95/58 L 106/64 Pulse Oximetry 95 94 L 02/27/18 20:00 02/28/18 00:00 Temperature 97.7 F Pulse Rate 92 H 83 Respiratory Rate 18 Blood Pressure 122/60 Pulse Oximetry 99 Intake & Output 02/27/18 02/28/18 02/28/18 18:59 06:59 18:59 Intake Total 497 / 497 900 / 900 Balance 497 / 497 900 / 900 Intake: Tube Feeding 497 / 497 780 / 780 Water Bolus Amount 120 / 120 Other: # Incontinent Voids 2 Date of Last Bowel Movement 02/26/18 # Incontinent Bowel Movements 1 Narrative: GENERAL: WDWN male patient, INAD. Awake. Nonverbal, responds with shaking head yes/no. Appears comfortable. N SKIN: Warm and dry. No generalized rash. Bilateral feet wrapped and in heel raiser boots bilaterally. HEENT: Atraumatic. Normocephalic. Pupils equal and round. No scleral icterus. No injection or drainage. No nasal bleeding or discharge. NECK: Trachea midline. Airway patent. CARDIOVASCULAR: Regular rate and rhythm. No murmur appreciated. RESPIRATORY: No accessory muscle use. Poor effort. Clear to auscultation anteriorly. Breath sounds equal bilaterally. GASTROINTESTINAL: Abdomen soft, non-tender, nondistended. +PEG tube in place mid abdomen, site C/D/I MUSCULOSKELETAL: Extremities without clubbing, cyanosis. +spontaneous movement in RUE. LLE contracted. NEUROLOGICAL: Awake and alert. Unable to assess motor function, patient not following commands. Nonverbal. PSYCHIATRIC: Calm. Results - Labs CBC & Chem 7: 02/24/18 10:02 02/28/18 06:03 Laboratory Results - last 24 hr 02/27/18 02/27/18 02/27/18 11:20 16:23 22:19 POC Glucose 193 H 204 H 123 H - Procedures s/p PICC line placement 02/22 Assessment and Plan - Assessment (1) Acute on chronic anemia Code(s): D64.9 - Anemia, unspecified Status: Acute (2) Anemia of chronic disorder Code(s): D63.8 - Anemia in other chronic diseases classified elsewhere Status : Acute (3) Pseudoaneurysm of brachial artery Code(s): I72.1 - Aneurysm of artery of upper extremity Status: Acute (4) Osteomyelitis Code(s): M86.9 - Osteomyelitis, unspecified Status: Acute (5) Diabetes Code(s): E11.9 - Type 2 diabetes mellitus without complications Status: Acute - Plan 47 year-old man with diabetes mellitus, hypertension, chronic anemia, chronic pain, 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 The patient had a CBC done as an outpatient and it showed a hemoglobin less than 7.0. 02/28 +diarrhea 4 loose stools so far today. Patient is afebrile. Vital signs are stable. Forwarded patients brothers number to Dr. Morrison - to discuss possible surgical options. Continues on IV Vancomycin per ID. Acute on chronic anemia Likely due to IV Vancomycin Patient was previously seen by hematology on December 24, 2017 and at the time his anemia was felt to be anemia of chronic inflammation due to decreased red blood cell production and functional iron deficiency. However that hospitalization there was no suspected underlying bone marrow disorder, and patient had no evidence to suggest iron deficiency, occult blood loss. He responded well to blood transfusion. Hgb 6.2 s/p transfusion 2units PRBCs. Likely 2/2 vancomycin. Hgb improved, stable. iron studies indicative of anemia of chronic disease -GI following, no indication for GI procedures at this time secondary to recent GI workup and no obvious GI bleed. Recommend capsule endoscopy as outpatient. GI signed off. -Hematology consultation as needed -monitor H/H intermittently Pseudoaneurysm right brachial artery Doppler US neg for DVT but revealed a pseudoaneurysm which appears to emanate from the distal brachial artery measuring 3.6 x 2.2 by 2.2 cm. -Dr. Jensen consulted, appreciate assistance. No further intervention needed at this time. Patient able to have PICC line placed above antecubital fossa if needed. Chronic osteomyelitis, MRSA Bilateral foot wounds/ulcers -Continue on IV vancomycin with stop date 03/09 -Continue with wound care -Patient evaluated by Dr. Vu of podiatry, no surgical intervention needed at this time, appreciate recommendations -ID following, appreciate assistance. Continue on IV Vanco. PICC line placed . MRI studies of bilateral feet shows osteo. -Podiatry following, appreciate assistance. ABIs normal bilaterally. Per his note, surgical intervention with possible limb salvage procedure. Diarrhea DW nursing staff, loose but not watery, too formed to send for C diff -likely secondary to TF -monitor History of CVA with left-sided hemiparesis Dysphagia ok to resume TF per GI -Agriculture Scientist consulted, continue TF Glucerna 1.5 @ 65 mls/hr Diabetes mellitus -continue on accucheks and ISS -Blood sugars overall controlled -patient on Levemir 5u BID at home. Will continue to hold for now. Cover with sliding scale only. Hypertension/hyperlipidemia BP controlled at present -Continue on home antihypertensives Coreg, hydralazine, Norvasc and lisinopril. -Continue to monitor BP and adjust treatment accordingly -Continue on Lipitor Hypokalemia Hypocalcemia Resolved s/p repletion -monitor K and Ca level as indicated -repeat BMP in am Seizure d/o -Continue on home dose of Keppra -seizure precautions -monitor for any seizure activity Psychiatric disorder/depression -Continue on home medications DVT prophylaxis: Bilateral SCDs, Heparin sq Discussed Condition With: patient, nursing staff, Discharge Planning: Not ready for discharge. Discharge pending ID and podiatry clearance.
[2018-02-28] MEDS: Escitalopram 10 MG Tablet G-TUBE SCH (09:00)
[2018-02-28] MEDS: Ascorbic Acid 500 MG Tablet G-TUBE SCH ×2 (09:00→22:46)
[2018-02-28] MEDS: levETIRAcetam 500 MG Tablet G-TUBE SCH ×3 (09:00→17:16)
[2018-02-28] MEDS: Carvedilol 12.5 MG Tablet G-TUBE SCH ×2 (09:00→22:46)
[2018-02-28] MEDS: amLODIPine 10 MG Tablet G-TUBE SCH (09:00)
[2018-02-28] MEDS: Lisinopril 5 MG Tablet G-TUBE SCH (09:01)
[2018-02-28] MEDS: Heparin - SQ 10,000 UNITS/ML Vial SQ SCH ×2 (09:01→22:46)
[2018-02-28] MEDS: Insulin NovoLOG Aspart Correctional Sugar Inj SQ SCH ×4 (09:01→22:46)
[2018-02-28] MEDS: Senna/Docusate Sodium 8.6/50 MG Tablet G-TUBE SCH (09:02)
[2018-02-28] MEDS: Vancomycin Inj 1,500 MG in Sodium Chlor 0.9% Inj 500 ML IV.SIG SCH (13:35)
--- NOTE | 2018-02-28 22:16 | P.PNPOD ---
Physical Exam Vital signs: Vital Signs 02/28/18 00:00 02/28/18 04:40 02/28/18 07:43 Temperature 97.7 F 98.2 F Pulse Rate 83 85 Respiratory Rate 18 19 15 Blood Pressure 122/60 120/65 Pulse Oximetry 99 97 02/28/18 08:00 02/28/18 09:10 02/28/18 12:00 Temperature 98.8 F 98 F 98.3 F Pulse Rate 83 81 78 Respiratory Rate 16 16 16 Blood Pressure 113/68 122/69 100/59 L Pulse Oximetry 96 97 95 02/28/18 16:00 02/28/18 20:00 Temperature 98.0 F Pulse Rate 83 78 Respiratory Rate 14 Blood Pressure 104/59 L Pulse Oximetry 95 Intake & Output 02/28/18 02/28/18 03/01/18 06:59 18:59 06:59 Intake Total 900 / 900 515 / 515 Balance 900 / 900 515 / 515 Weight 87.5 kg Intake: IV 515 / 515 Vancomycin Inj 1,500 MG In NS 515 / 515 Inj 500 ML @ 250 mls/hr IV.SIG Q12H [facility] Rx#:[id number] Oral 0 / 0 Tube Feeding 780 / 780 Water Bolus Amount 120 / 120 Other: # Voids 2 # Incontinent Voids 2 Date of Last Bowel Movement 02/28/18 # Bowel Movements 1 1 # Incontinent Bowel Movements 1 Medications and Allergies Active Medications: Active Medications Al Hydroxide/Mg Hydroxide (Milk Of Magnesia Liq) 30 ml G-TUBE Q12H PRN PRN Reason: Mild Constipation Amlodipine Besylate (Norvasc) 10 mg G-TUBE DAILY [facility] Last Admin: 02/28/18 09:00 Dose: 10 mg Ascorbic Acid (Vitamin C) 500 mg G-TUBE BID [facility] Last Admin: 02/28/18 09:00 Dose: 500 mg Atorvastatin Calcium (Lipitor) 10 mg G-TUBE HS [facility] Last Admin: 02/27/18 22:07 Dose: 10 mg Bisacodyl (Dulcolax Supp) 10 mg RECTAL DAILY PRN PRN Reason: SEVERE CONSITIPATION Carvedilol (Coreg) 25 mg G-TUBE BID [facility] Last Admin: 02/28/18 09:00 Dose: 25 mg Dextrose (D50w Vial) 50 ml IV.PUSH UNSCH PRN PRN Reason: PER HYPOGLYCEMIA PROTOCOL Last Admin: 02/17/18 20:55 Dose: 50 ml Enalaprilat (Vasotec Inj) 2.5 mg IV.PUSH Q6H PRN PRN Reason: SBP>160, DBP>90 Last Admin: 02/21/18 01:34 Dose: 2.5 mg Escitalopram Oxalate (Lexapro) 15 mg G-TUBE DAILY [facility] Last Admin: 02/28/18 09:00 Dose: 15 mg Glucagon (Glucagon Inj) 1 mg OTHER PRN PRN PRN Reason: for Hypoglycemia Protocol Heparin Sodium (Porcine) (Heparin Inj) 5,000 units SQ Q12HR [facility] Last Admin: 02/28/18 09:01 Dose: 5,000 units Hydralazine HCl (Apresoline) 100 mg G-TUBE TID [facility] Last Admin: 02/28/18 17:16 Dose: 100 mg Pharmacy Profile Note (Vancomycin Consult Pharmacy) 0 mls @ 0 mls/hr OTHER UNSCH [facility] Vancomycin HCl 1,500 mg/ (Sodium Chloride) 515 mls @ 250 mls/hr IV.SIG Q12H [facility] Last Infusion: 02/28/18 15:58 Dose: Infused Insulin Aspart (Novolog Insulin Correctional Sugar Inj) 0 unit SQ ACHS [facility]; Protocol Last Admin: 02/28/18 16:53 Dose: Not Given Insulin Detemir (Levemir Inj) 5 unit SQ BID [facility] Last Admin: 02/18/18 11:01 Dose: Not Given Lactulose (Lactulose Liq) 30 ml G-TUBE DAILY PRN PRN Reason: SEVERE CONSITIPATION Lansoprazole (Prevacid Solutab) 30 mg NG/OG DAILY [facility] Last Admin: 02/28/18 09:02 Dose: 30 mg Levetiracetam (Keppra) 500 mg G-TUBE TID [facility] Last Admin: 02/28/18 17:16 Dose: 500 mg Lisinopril (Prinivil) 5 mg G-TUBE DAILY [facility] Last Admin: 02/28/18 09:01 Dose: 5 mg Miscellaneous (Pill Splitter) 1 each OTHER ONCE [facility] Miscellaneous Information ([facility] Ordered Lab Info) 0 each OTHER ONCE ONE Stop: 03/02/18 01:46 Ondansetron HCl (Zofran Inj) 4 mg IV.PUSH Q6H PRN PRN Reason: NAUSEA OR VOMITING Last Admin: 02/27/18 12:25 Dose: 4 mg Senna/Docusate Sodium (Jessie-Colace) 1 tab G-TUBE BID KRISTIE Last Admin: 02/28/18 09:02 Dose: Not Given Sennosides (Senokot) 17.2 mg PO Q12H PRN PRN Reason: Moderate Constipation Temazepam (Restoril) 15 mg PO HS PRN PRN Reason: INSOMNIA Last Admin: 02/26/18 21:03 Dose: 15 mg Allergies Allergy/AdvReac Type Severity Reaction Status Date / Time No Known Allergies Allergy Unknown Uncoded 01/06/18 21:04 Home Medications Medication Instructions Recorded Confirmed Type ascorbic acid (vitamin C) [Vitamin 500 mg PO BID 01/15/18 02/17/18 History C] aspirin [Aspir-81] 81 mg FEEDING TUBE DAILY 01/15/18 02/17/18 History atorvastatin 10 mg FEEDING TUBE HS 01/15/18 02/17/18 History carvedilol [Coreg] 25 mg FEEDING TUBE BID 01/15/18 02/17/18 History escitalopram oxalate 15 mg FEEDING TUBE DAILY 01/15/18 02/17/18 History gentamicin 1 applic TOPICAL QID 01/15/18 02/17/18 History hydralazine 100 mg PO TID 01/15/18 02/17/18 History insulin detemir U-100 [Levemir 5 unit SUB-Q BID 01/15/18 02/17/18 History U-100 Insulin] ipratropium-albuterol 3 ml INHALATION Q6-8H PRN 01/15/18 02/17/18 History levetiracetam 500 mg PO TID 01/15/18 02/17/18 History melatonin 3 mg FEEDING TUBE HS 01/15/18 02/17/18 History insulin aspart U-100 [Novolog 1 sliding scale dose SUB-Q UD 02/17/18 02/17/18 History U-100 Insulin aspart] Results - Labs CBC & Chem 7: 02/24/18 10:02 02/28/18 06:03 Laboratory Results - last 24 hr 02/27/18 02/28/18 02/28/18 22:19 06:03 06:03 Creatinine 1.76 H Estimated GFR 51 L POC Glucose 123 H Random Vancomycin 20.7 02/28/18 02/28/18 02/28/18 07:56 11:51 16:48 Creatinine Estimated GFR POC Glucose 109 141 H 151 H Random Vancomycin 02/28/18 02/28/18 16:50 20:10 Creatinine Estimated GFR POC Glucose 140 H 122 H Random Vancomycin - Procedures s/p PICC line placement 02/22 Assessment and Plan - Assessment (1) Foot ulcer, right Code(s): L97.519 - Non-pressure chronic ulcer of other part of right foot with unspecified severity Status: Acute (2) Foot ulcer, left Code(s): L97.529 - Non-pressure chronic ulcer of other part of left foot with unspecified severity Status: Resolved (3) Osteomyelitis of ankle and foot Code(s): M86.9 - Osteomyelitis, unspecified Status: Acute Plan: Will discuss with patient possible excision of infected bone to reduce risk associated with continued long-term IV antibiotics. Patient has been told this would simply be a temporizing procedure, and that he will likely need more proximal amputation in the future. He has been recommended to have AKA due to severe contractures. Possibility of resection of bone bilateral feet over the weekend, pending discussions with patient.
[2018-03-01] MEDS: Vancomycin Inj 1,500 MG in Sodium Chlor 0.9% Inj 500 ML IV.SIG SCH (03:15)
[2018-03-01 06:01] LABS: Baso % (Auto) 0.5 % (0.0-2.0); Eos # (Auto) 0.1 th/mm3 (0.0-0.4); Eos % (Auto) 2.1 % (0.0-4.0); Hematocrit 23.6 % (39.0-51.0); Hemoglobin 7.7 gm/dL (13.0-17.0); Lymph % (Auto) 24.1 % (9.0-44.0); Mean Corpuscular HGB Conc 32.7 % (32.0-36.0); Mean Corpuscular Hemoglobin 30.6 pg (27.0-34.0); Mean Corpuscular Volume 93.4 fL (80.0-100.0); Mean Platelet Volume 9.6 fL (7.0-11.0); Mono # (Auto) 0.4 th/mm3 (0.0-0.9); Mono % (Auto) 10.9 % (0.0-8.0); Neut # (Auto) 2.5 th/mm3 (1.8-7.7); Neut % (Auto) 62.4 % (16.0-70.0); Platelet Count 165 th/mm3 (150-450); Red Blood Count 2.53 mil/mm3 (4.50-5.90); Red Cell Distribution Width 16.6 % (11.6-17.2)
[2018-03-01 06:33] LABS: Alanine Aminotransferase 22 U/L (12-78); Albumin 2.7 g/dL (3.4-5.0); Alkaline Phosphatase 121 U/L (45-117); Anion Gap 5 meq/L (5-15); Aspartate Aminotransferase 23 U/L (15-37); Blood Urea Nitrogen 51 mg/dL (7-18); Calcium 7.7 mg/dL (8.5-10.1); Carbon Dioxide 28.5 meq/L (21.0-32.0); Chloride 110 meq/L (98-107); Glomerular Filtration Rate 55 mL/min (>89); Glucose,Random 123 mg/dL (74-106); Potassium 5.2 meq/L (3.5-5.1); Sodium 143 meq/L (136-145); Total Protein 7.5 g/dL (6.4-8.2)
--- NOTE | 2018-03-01 07:23 | P.PN ---
Subjective Interval history: No significant change. Patient not in any distress. He remains stable. Discussed with nursing staff, no acute issues noted overnight. Patient with multiple loose stools yesterday, C. difficile ordered however unable to collect specimen as diarrhea resolved. Physical Exam Vital signs: Vital Signs 02/28/18 07:43 02/28/18 08:00 02/28/18 09:10 Temperature 98.8 F 98 F Pulse Rate 83 81 Respiratory Rate 15 16 16 Blood Pressure 113/68 122/69 Pulse Oximetry 96 97 02/28/18 12:00 02/28/18 16:00 02/28/18 20:00 Temperature 98.3 F 98.0 F 98.1 F Pulse Rate 78 83 83 Respiratory Rate 16 14 16 Blood Pressure 100/59 L 104/59 L 115/67 Pulse Oximetry 95 95 99 02/28/18 23:08 03/01/18 04:00 03/01/18 07:06 Temperature 98.3 F 98.5 F 98.1 F Pulse Rate 84 80 81 Respiratory Rate 18 18 16 Blood Pressure 128/73 115/68 132/73 Pulse Oximetry 97 95 96 Intake & Output 02/28/18 03/01/18 03/01/18 18:59 06:59 18:59 Intake Total 515 / 515 515 / 515 Balance 515 / 515 515 / 515 Weight 86.6 kg Intake: IV 515 / 515 515 / 515 Vancomycin Inj 1,500 MG In NS 515 / 515 515 / 515 Inj 500 ML @ 250 mls/hr IV.SIG Q12H KRISTIE Rx#:[id number] Other: # Voids 2 # Incontinent Voids 1 Date of Last Bowel Movement 02/28/18 02/28/18 02/28/18 # Bowel Movements 1 Narrative: GENERAL: WDWN male patient, INAD. Awake. Responds with shaking head yes/no. Appears comfortable. SKIN: Warm and dry. No generalized rash. Bilateral feet wrapped and in heel raiser boots bilaterally. HEENT: Atraumatic. Normocephalic. Pupils equal and round. No scleral icterus. No injection or drainage. No nasal bleeding or discharge. NECK: Trachea midline. Airway patent. CARDIOVASCULAR: Regular rate and rhythm. No murmur appreciated. RESPIRATORY: No accessory muscle use. Poor effort. Clear to auscultation anteriorly. Breath sounds equal bilaterally. GASTROINTESTINAL: Abdomen soft, non-tender, nondistended. +PEG tube in place mid abdomen, site C/D/I MUSCULOSKELETAL: Extremities without clubbing, cyanosis. +spontaneous movement in RUE. LLE contracted. NEUROLOGICAL: Awake and alert. Unable to assess motor function, patient not following commands. Nonverbal. PSYCHIATRIC: Calm. Results - Labs CBC & Chem 7: 03/01/18 05:30 03/01/18 05:30 Laboratory Results - last 24 hr 02/28/18 02/28/18 02/28/18 06:03 06:03 07:56 WBC RBC Hgb Hct MCV MCH MCHC RDW Plt Count MPV Neut % (Auto) Lymph % (Auto) [place] % (Auto) Eos % (Auto) Baso % (Auto) Neut # (Auto) Lymph # (Auto) [place] # (Auto) Eos # (Auto) Baso # (Auto) WBC Differential Differential Comment Sodium Potassium Chloride Carbon Dioxide Anion Gap BUN Creatinine 1.76 H Estimated GFR 51 L POC Glucose 109 Random Glucose Calcium Total Bilirubin AST ALT Alkaline Phosphatase Total Protein Albumin Random Vancomycin 20.7 02/28/18 02/28/18 02/28/18 11:51 16:48 16:50 WBC RBC Hgb Hct MCV MCH MCHC RDW Plt Count MPV Neut % (Auto) Lymph % (Auto) [place] % (Auto) Eos % (Auto) Baso % (Auto) Neut # (Auto) Lymph # (Auto) [place] # (Auto) Eos # (Auto) Baso # (Auto) WBC Differential Differential Comment Sodium Potassium Chloride Carbon Dioxide Anion Gap BUN Creatinine Estimated GFR POC Glucose 141 H 151 H 140 H Random Glucose Calcium Total Bilirubin AST ALT Alkaline Phosphatase Total Protein Albumin Random Vancomycin 02/28/18 03/01/18 03/01/18 20:10 05:30 05:30 WBC 4.0 RBC 2.53 L Hgb 7.7 L Hct 23.6 L MCV 93.4 MCH 30.6 MCHC 32.7 RDW 16.6 Plt Count 165 MPV 9.6 Neut % (Auto) 62.4 Lymph % (Auto) 24.1 [place] % (Auto) 10.9 H Eos % (Auto) 2.1 Baso % (Auto) 0.5 Neut # (Auto) 2.5 Lymph # (Auto) 1.0 [place] # (Auto) 0.4 Eos # (Auto) 0.1 Baso # (Auto) 0.0 WBC Differential . Differential Comment Auto diff final Sodium 143 Potassium 5.2 H Chloride 110 H Carbon Dioxide 28.5 Anion Gap 5 BUN 51 H Creatinine 1.64 H Estimated GFR 55 L POC Glucose 122 H Random Glucose 123 H Calcium 7.7 L Total Bilirubin 0.3 AST 23 ALT 22 Alkaline Phosphatase 121 H Total Protein 7.5 D Albumin 2.7 L Random Vancomycin - Procedures s/p PICC line placement 02/22 Assessment and Plan - Assessment (1) Acute on chronic anemia Code(s): D64.9 - Anemia, unspecified Status: Acute (2) Anemia of chronic disorder Code(s): D63.8 - Anemia in other chronic diseases classified elsewhere Status : Acute (3) Pseudoaneurysm of brachial artery Code(s): I72.1 - Aneurysm of artery of upper extremity Status: Acute (4) Osteomyelitis Code(s): M86.9 - Osteomyelitis, unspecified Status: Acute (5) Diabetes Code(s): E11.9 - Type 2 diabetes mellitus without complications Status: Acute - Plan 47 year-old man with diabetes mellitus, hypertension, chronic anemia, chronic pain, 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 The patient had a CBC done as an outpatient and it showed a hemoglobin less than 7.0. 03/01 Diarrhea resolved, unable to send specimen for Cdiff. Patient is not in any distress. He remains afebrile. Vital signs stable. Podiatry following, possible resection of bone bilateral feet over the weekend. Hgb dropped from 8.6 to 7.7. No e/o active bleeding. Will repeat H&H later today. Cr trended up. Hold ACEI and Vancomycin. IVF bolus followed by maintenance IV fluid. Repeat Cr in am. Acute on chronic anemia Likely due to IV Vancomycin Patient was previously seen by hematology on December 24, 2017 and at the time his anemia was felt to be anemia of chronic inflammation due to decreased red blood cell production and functional iron deficiency. However that hospitalization there was no suspected underlying bone marrow disorder, and patient had no evidence to suggest iron deficiency, occult blood loss. He responded well to blood transfusion. Hgb 6.2 s/p transfusion 2units PRBCs. Likely 2/2 vancomycin. Hgb improved but now dropped to 7.7. iron studies indicative of anemia of chronic disease -GI following, no indication for GI procedures at this time secondary to recent GI workup and no obvious GI bleed. Recommend capsule endoscopy as outpatient. GI signed off. -Hematology consultation as needed -monitor H/H intermittently Pseudoaneurysm right brachial artery Doppler US neg for DVT but revealed a pseudoaneurysm which appears to emanate from the distal brachial artery measuring 3.6 x 2.2 by 2.2 cm. -Dr. Jensen consulted, appreciate assistance. No further intervention needed at this time. Patient able to have PICC line placed above antecubital fossa if needed. Chronic osteomyelitis, MRSA Bilateral foot wounds/ulcers -Continue on IV vancomycin with stop date 03/09 -Continue with wound care -Patient evaluated by Dr. Vu of podiatry, no surgical intervention needed at this time, appreciate recommendations -ID following, appreciate assistance. Continue on IV Vanco. PICC line placed . MRI studies of bilateral feet shows osteo. -Podiatry following, appreciate assistance. ABIs normal bilaterally. Possible resection of bone bilateral feet over the weekend. Diarrhea, resolved -likely secondary to TF -monitor History of CVA with left-sided hemiparesis Dysphagia ok to resume TF per GI -Tarper consulted, continue TF Glucerna 1.5 @ 65 mls/hr Diabetes mellitus -continue on accucheks and ISS -Blood sugars overall controlled -patient on Levemir 5u BID at home. Will continue to hold for now. Cover with sliding scale only. Hypertension/hyperlipidemia BP controlled at present -Continue on home antihypertensives Coreg, hydralazine, Norvasc and lisinopril. -Continue to monitor BP and adjust treatment accordingly -Continue on Lipitor Hyperkalemia, mild K 5.2 -Avoid potassium containing prior -repeat K level later today Seizure d/o -Continue on home dose of Keppra -seizure precautions -monitor for any seizure activity Psychiatric disorder/depression -Continue on home medications DVT prophylaxis: Bilateral SCDs, Heparin sq Discussed Condition With: patient, nursing staff, Dr. Beltran Discharge Planning: Not ready for discharge. Discharge pending ID and podiatry clearance.
[2018-03-01] MEDS: Insulin NovoLOG Aspart Correctional Sugar Inj SQ SCH ×4 (09:49→21:32)
[2018-03-01] MEDS: Escitalopram 10 MG Tablet G-TUBE SCH (09:50)
[2018-03-01] MEDS: amLODIPine 10 MG Tablet G-TUBE SCH (09:50)
[2018-03-01] MEDS: levETIRAcetam 500 MG Tablet G-TUBE SCH ×3 (09:50→18:21)
[2018-03-01] MEDS: Lisinopril 5 MG Tablet G-TUBE SCH (09:50)
[2018-03-01] MEDS: Heparin - SQ 10,000 UNITS/ML Vial SQ SCH ×2 (09:50→21:32)
[2018-03-01] MEDS: Carvedilol 12.5 MG Tablet G-TUBE SCH ×2 (09:50→21:33)
[2018-03-01] MEDS: Ascorbic Acid 500 MG Tablet G-TUBE SCH ×2 (09:51→21:33)
[2018-03-01] MEDS ORDERED: Sodium Chlor 0.9% Inj 250 ML IV.SIG ONE (11:37)
[2018-03-01 13:17] LABS: Hematocrit 24.2 % (39.0-51.0); Hemoglobin 7.7 gm/dL (13.0-17.0)
[2018-03-01] MEDS: Sod Chloride 0.9% Inj 1,000 ML IV.CONT SCH (13:23)
[2018-03-01] MEDS ORDERED: Sodium Polystyrene Sulfonate/Sorbitol Liq 15 GM/60 ML UDC NG/OG ONE (17:30)
--- NOTE | 2018-03-01 19:06 | P.PNPOD ---
Physical Exam Vital signs: Vital Signs 02/28/18 20:00 02/28/18 23:08 03/01/18 04:00 Temperature 98.1 F 98.3 F 98.5 F Pulse Rate 83 84 80 Respiratory Rate 16 18 18 Blood Pressure 115/67 128/73 115/68 Pulse Oximetry 99 97 95 03/01/18 07:06 03/01/18 08:00 03/01/18 11:32 Temperature 98.1 F 97.5 F L Pulse Rate 81 81 80 Respiratory Rate 16 18 Blood Pressure 132/73 121/71 Pulse Oximetry 96 94 L 03/01/18 16:00 Temperature 98.4 F Pulse Rate 81 Respiratory Rate 19 Blood Pressure 138/80 Pulse Oximetry 97 Intake & Output 02/28/18 03/01/18 03/01/18 18:59 06:59 18:59 Intake Total 515 / 515 515 / 515 250 / 250 Balance 515 / 515 515 / 515 250 / 250 Weight 86.6 kg Intake: IV 515 / 515 515 / 515 250 / 250 NS Inj 250 ML @ Wide Open IV. 250 / 250 SIG BOLUS ONE Rx#:[id number] Vancomycin Inj 1,500 MG In NS 515 / 515 515 / 515 Inj 500 ML @ 250 mls/hr IV.SIG Q12H KRISTIE Rx#:[id number] Other: # Voids 2 # Incontinent Voids 1 3 Date of Last Bowel Movement 02/28/18 02/28/18 02/28/18 # Bowel Movements 1 2 Narrative: Plantar lateral right and left feet with granular tissue to periphery and exposed tendon centrally. No active purulence. No edema, no erythema, No sign of acute infection present at this time. Medications and Allergies Active Medications: Active Medications Al Hydroxide/Mg Hydroxide (Milk Of Nadiya Lisujata) 30 ml G-TUBE Q12H PRN PRN Reason: Mild Constipation Amlodipine Besylate (Norvasc) 10 mg G-TUBE DAILY [facility] Last Admin: 03/01/18 09:50 Dose: 10 mg Ascorbic Acid (Vitamin C) 500 mg G-TUBE BID [facility] Last Admin: 03/01/18 09:51 Dose: 500 mg Atorvastatin Calcium (Lipitor) 10 mg G-TUBE HS [facility] Last Admin: 02/28/18 22:46 Dose: 10 mg Bisacodyl (Dulcolax Supp) 10 mg RECTAL DAILY PRN PRN Reason: SEVERE CONSITIPATION Carvedilol (Coreg) 25 mg G-TUBE BID [facility] Last Admin: 03/01/18 09:50 Dose: 25 mg Dextrose (D50w Vial) 50 ml IV.PUSH UNSCH PRN PRN Reason: PER HYPOGLYCEMIA PROTOCOL Last Admin: 02/17/18 20:55 Dose: 50 ml Enalaprilat (Vasotec Inj) 2.5 mg IV.PUSH Q6H PRN PRN Reason: SBP>160, DBP>90 Last Admin: 02/21/18 01:34 Dose: 2.5 mg Escitalopram Oxalate (Lexapro) 15 mg G-TUBE DAILY [facility] Last Admin: 03/01/18 09:50 Dose: 15 mg Glucagon (Glucagon Inj) 1 mg OTHER PRN PRN PRN Reason: for Hypoglycemia Protocol Heparin Sodium (Porcine) (Heparin Inj) 5,000 units SQ Q12HR [facility] Last Admin: 03/01/18 09:50 Dose: 5,000 units Hydralazine HCl (Apresoline) 100 mg G-TUBE TID [facility] Last Admin: 03/01/18 18:21 Dose: 100 mg Pharmacy Profile Note (Vancomycin Consult Pharmacy) 0 mls @ 0 mls/hr OTHER UNSCH [facility] Vancomycin HCl 1,500 mg/ (Sodium Chloride) 515 mls @ 250 mls/hr IV.SIG Q12H [facility] Last Infusion: 03/01/18 05:19 Dose: Infused Sodium Chloride (Ns Inj) 1,000 mls @ 75 mls/hr IV.CONT .[id number] [facility] Last Admin: 03/01/18 13:23 Dose: 75 mls/hr Insulin Aspart (Novolog Insulin Correction[employer] Sugar Inj) 0 unit SQ ACHS [facility]; Protocol Last Admin: 03/01/18 18:21 Dose: 4 unit Insulin Detemir (Levemir Inj) 5 unit SQ BID [facility] Last Admin: 02/18/18 11:01 Dose: Not Given Lactulose (Lactulose Liq) 30 ml G-TUBE DAILY PRN PRN Reason: SEVERE CONSITIPATION Lansoprazole (Prevacid Solutab) 30 mg NG/OG DAILY [facility] Last Admin: 03/01/18 09:51 Dose: 30 mg Levetiracetam (Keppra) 500 mg G-TUBE TID [facility] Last Admin: 03/01/18 18:21 Dose: 500 mg Lisinopril (Prinivil) 5 mg G-TUBE DAILY [facility] Last Admin: 03/01/18 09:50 Dose: 5 mg Miscellaneous (Pill Splitter) 1 each OTHER ONCE [facility] Miscellaneous Information ([facility] Ordered Lab Info) 0 each OTHER ONCE ONE Stop: 03/02/18 01:46 Ondansetron HCl (Zofran Inj) 4 mg IV.PUSH Q6H PRN PRN Reason: NAUSEA OR VOMITING Last Admin: 02/27/18 12:25 Dose: 4 mg Senna/Docusate Sodium (Jessie-Colace) 1 tab G-TUBE BID [facility] Last Admin: 02/28/18 09:02 Dose: Not Given Sennosides (Senokot) 17.2 mg PO Q12H PRN PRN Reason: Moderate Constipation Temazepam (Restoril) 15 mg PO HS PRN PRN Reason: INSOMNIA Last Admin: 02/26/18 21:03 Dose: 15 mg Allergies Allergy/AdvReac Type Severity Reaction Status Date / Time No Known Allergies Allergy Unknown Uncoded 01/06/18 21:04 Home Medications Medication Instructions Recorded Confirmed Type ascorbic acid (vitamin C) [Vitamin 500 mg PO BID 01/15/18 02/17/18 History C] aspirin [Aspir-81] 81 mg FEEDING TUBE DAILY 01/15/18 02/17/18 History atorvastatin 10 mg FEEDING TUBE HS 01/15/18 02/17/18 History carvedilol [Coreg] 25 mg FEEDING TUBE BID 01/15/18 02/17/18 History escitalopram oxalate 15 mg FEEDING TUBE DAILY 01/15/18 02/17/18 History gentamicin 1 applic TOPICAL QID 01/15/18 02/17/18 History hydralazine 100 mg PO TID 01/15/18 02/17/18 History insulin detemir U-100 [Levemir 5 unit SUB-Q BID 01/15/18 02/17/18 History U-100 Insulin] ipratropium-albuterol 3 ml INHALATION Q6-8H PRN 01/15/18 02/17/18 History levetiracetam 500 mg PO TID 01/15/18 02/17/18 History melatonin 3 mg FEEDING TUBE HS 01/15/18 02/17/18 History insulin aspart U-100 [Novolog 1 sliding scale dose SUB-Q UD 02/17/18 02/17/18 History U-100 Insulin aspart] Results - Labs CBC & Chem 7: 03/01/18 12:33 03/01/18 12:33 Laboratory Results - last 24 hr 02/28/18 03/01/18 03/01/18 20:10 05:30 05:30 WBC 4.0 RBC 2.53 L Hgb 7.7 L Hct 23.6 L MCV 93.4 MCH 30.6 MCHC 32.7 RDW 16.6 Plt Count 165 MPV 9.6 Neut % (Auto) 62.4 Lymph % (Auto) 24.1 [place] % (Auto) 10.9 H Eos % (Auto) 2.1 Baso % (Auto) 0.5 Neut # (Auto) 2.5 Lymph # (Auto) 1.0 [place] # (Auto) 0.4 Eos # (Auto) 0.1 Baso # (Auto) 0.0 WBC Differential . Differential Comment Auto diff final Sodium 143 Potassium 5.2 H Chloride 110 H Carbon Dioxide 28.5 Anion Gap 5 BUN 51 H Creatinine 1.64 H Estimated GFR 55 L POC Glucose 122 H Random Glucose 123 H Calcium 7.7 L Total Bilirubin 0.3 AST 23 ALT 22 Alkaline Phosphatase 121 H Total Protein 7.5 D Albumin 2.7 L 03/01/18 03/01/18 03/01/18 07:34 11:30 12:33 WBC RBC Hgb 7.7 L Hct 24.2 L MCV MCH MCHC RDW Plt Count MPV Neut % (Auto) Lymph % (Auto) [place] % (Auto) Eos % (Auto) Baso % (Auto) Neut # (Auto) Lymph # (Auto) [place] # (Auto) Eos # (Auto) Baso # (Auto) WBC Differential Differential Comment Sodium Potassium Chloride Carbon Dioxide Anion Gap BUN Creatinine Estimated GFR POC Glucose 141 H 178 H Random Glucose Calcium Total Bilirubin AST ALT Alkaline Phosphatase Total Protein Albumin 03/01/18 03/01/18 12:33 17:04 WBC RBC Hgb Hct MCV MCH MCHC RDW Plt Count MPV Neut % (Auto) Lymph % (Auto) [place] % (Auto) Eos % (Auto) Baso % (Auto) Neut # (Auto) Lymph # (Auto) [place] # (Auto) Eos # (Auto) Baso # (Auto) WBC Differential Differential Comment Sodium Potassium 5.4 H Chloride Carbon Dioxide Anion Gap BUN Creatinine Estimated GFR POC Glucose 203 H Random Glucose Calcium Total Bilirubin AST ALT Alkaline Phosphatase Total Protein Albumin Assessment and Plan - Assessment (1) Foot ulcer, right Code(s): L97.519 - Non-pressure chronic ulcer of other part of right foot with unspecified severity Status: Acute (2) Foot ulcer, left Code(s): L97.529 - Non-pressure chronic ulcer of other part of left foot with unspecified severity Status: Resolved (3) Osteomyelitis of ankle and foot Code(s): M86.9 - Osteomyelitis, unspecified Status: Acute Plan: I tried to discuss patient's condition with him and he was not communicating well today. I reviewed chart and discussed patient with Dr Morrison, who saw him earlier in the week. Patient has very severe contractures, leading to these pressure sores, and did have MRI findings consistent with osteomyelitis of feet. However, clinically, the wounds have maintained a stable appearance since the original consult findings from Dr Vu until now. I see no reason to operate on this gentleman and create a much larger surgical wound that will most certainly not heal due to inability to reduce pressure. If he seems to be having negative effects from the antibiotics he is on to treat his foot infection, my best recommendation is to stop the medication due to the stable appearance of both feet and monitor. If and when his infection returns acutely, he will need to undergo Above knee amputations. I feel surgery at the level of the foot in this patient will certainly cause more harm than good. Podiatry will, however, agree continue to monitor this patient weekly while in- house.
[2018-03-01] MEDS: Temazepam 15 MG Capsule PO PRN (21:33)
[2018-03-01] MEDS: Senna/Docusate Sodium 8.6/50 MG Tablet G-TUBE SCH (21:33)
[2018-03-02] MEDS ORDERED: Pharmacy Ordered Lab Info OTHER ONE (01:45)
[2018-03-02] MEDS: Sod Chloride 0.9% Inj 1,000 ML IV.CONT SCH ×2 (02:18→18:10)
[2018-03-02 03:00] LABS: Calcium 8.1 mg/dL (8.5-10.1); Carbon Dioxide 29.3 meq/L (21.0-32.0); Potassium 4.7 meq/L (3.5-5.1)
[2018-03-02 03:03] LABS: Vancomycin,Random 26.4 Comment
[2018-03-02 06:29] LABS: Hematocrit 26.1 % (39.0-51.0); Hemoglobin 8.6 gm/dL (13.0-17.0)
--- NOTE | 2018-03-02 09:26 | P.PN ---
Subjective Interval history: Patient seen and examined this morning. Afebrile, pulse 97, blood pressure ranging between 152-179/86-99, pulse ox 92 on room air. Patient is lying in bed in without oxygen on. Appears to be comfortable. Is following some commands. Unable to move left side of body. Is not communicating with me at this time. Physical Exam Vital signs: Vital Signs 03/01/18 11:32 03/01/18 12:05 03/01/18 16:00 Temperature 97.5 F L 98.4 F Pulse Rate 80 79 81 Respiratory Rate 18 19 Blood Pressure 121/71 138/80 Pulse Oximetry 94 L 97 03/01/18 20:00 03/02/18 00:00 03/02/18 04:00 Temperature 98.7 F 98.9 F Pulse Rate 95 H 85 95 H Respiratory Rate 18 18 18 Blood Pressure 144/87 H 144/84 H 152/86 H Pulse Oximetry 95 95 94 L 03/02/18 08:00 Temperature 98.5 F Pulse Rate 97 H Respiratory Rate 20 Blood Pressure 179/99 H Pulse Oximetry 92 L Intake & Output 03/01/18 03/02/18 03/02/18 18:59 06:59 18:59 Intake Total 250 / 250 1000 / 1000 Balance 250 / 250 1000 / 1000 Weight 87.7 kg Intake: IV 250 / 250 1000 / 1000 NS Inj 1,000 ML @ 75 mls/hr IV. 1000 / 1000 CONT .[id number] KRISTIE Rx#:[id number] NS Inj 250 ML @ Wide Open IV. 250 / 250 SIG BOLUS ONE Rx#:[id number] Other: # Incontinent Voids 3 2 Date of Last Bowel Movement 02/28/18 03/01/18 # Bowel Movements 2 Narrative: GENERAL: WDWN male patient, INAD. Awake. Responds with shaking head yes/no. Appears comfortable. SKIN: Warm and dry. No generalized rash. Bilateral feet wrapped and in heel raiser boots bilaterally. HEENT: Atraumatic. Normocephalic. Pupils equal and round. No scleral icterus. No injection or drainage. No nasal bleeding or discharge. NECK: Trachea midline. Airway patent. CARDIOVASCULAR: Regular rate and rhythm. No murmur appreciated. RESPIRATORY: No accessory muscle use. Poor effort. Clear to auscultation anteriorly. Breath sounds equal bilaterally. GASTROINTESTINAL: Abdomen soft, non-tender, nondistended. +PEG tube in place mid abdomen, site C/D/I MUSCULOSKELETAL: Extremities without clubbing, cyanosis. +spontaneous movement in RUE. LLE contracted. NEUROLOGICAL: Awake and alert. Unable to assess motor function, patient not following commands. Nonverbal. PSYCHIATRIC: Calm. Results - Labs CBC & Chem 7: 03/02/18 06:12 03/02/18 01:45 Laboratory Results - last 24 hr 03/01/18 03/01/18 03/01/18 11:30 12:33 12:33 Hgb 7.7 L Hct 24.2 L Sodium Potassium 5.4 H Chloride Carbon Dioxide Anion Gap BUN Creatinine Estimated GFR POC Glucose 178 H Random Glucose Calcium Random Vancomycin 03/01/18 03/01/18 03/02/18 17:04 21:00 01:45 Hgb Hct Sodium 145 Potassium 4.7 Chloride 111 H Carbon Dioxide 29.3 Anion Gap 5 BUN 46 H Creatinine 1.48 H Estimated GFR 62 L POC Glucose 203 H 190 H Random Glucose 125 H Calcium 8.1 L Random Vancomycin 26.4 03/02/18 03/02/18 06:12 08:06 Hgb 8.6 L Hct 26.1 L Sodium Potassium Chloride Carbon Dioxide Anion Gap BUN Creatinine Estimated GFR POC Glucose 205 H Random Glucose Calcium Random Vancomycin - Imaging Abdomen/Pelvis CT 02/17/18 00:00 CONCLUSION: 1. Small bilateral pleural effusions and bilateral lower lung opacity again seen. 2. Mild splenomegaly again seen. 3. Gastrostomy tube in place. 4. No evidence of bowel dilatation. 5. Heterotopic ossification about the left hip again seen. 6. Calcified adrenal glands again seen. 7. Enlarged inguinal lymph nodes again seen. Venous Doppler Study 02/18/18 00:00 CONCLUSION: 1. No DVT or SVT. 2. 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 This measures 3.6 x 2.2 x 2.2 cm and is predominantly thrombosed with a small, 6 x 9 mm patent component showing biphasic flow. Central Venous Line 02/22/18 00:00 CONCLUSION: 1. Uncomplicated tunneled central venous Power PICC line placement. 2. The PICC line can be used immediately. Foot MRI 02/22/18 00:00 CONCLUSION: 1. Osteomyelitis of the mid and distal fifth metatarsal with erosive changes at the fifth metatarsal head. There is surrounding cellulitis and edematous changes in the soft tissues of the foot. No other areas of osteomyelitis identified. Foot MRI 02/22/18 00:00 CONCLUSION: 1. Findings most characteristic of early osteomyelitis at the medial aspect of the first metatarsal head and a tiny focus of probable osteomyelitis at the medial corner of the proximal phalanx great toe. Mild surrounding cellulitis. 2. Previous partial amputation fifth metatarsal. Extremity Arterial Study 02/26/18 00:00 CONCLUSION: 1. Normal ABIs bilaterally. - Procedures s/p PICC line placement 02/22 Assessment and Plan - Assessment (1) Osteomyelitis Code(s): M86.9 - Osteomyelitis, unspecified Status: Acute (2) Diabetes Code(s): E11.9 - Type 2 diabetes mellitus without complications Status: Acute (3) Anemia of chronic disorder Code(s): D63.8 - Anemia in other chronic diseases classified elsewhere Status : Acute (4) Acute on chronic anemia Code(s): D64.9 - Anemia, unspecified Status: Acute - Plan 47 year-old man with diabetes mellitus, hypertension, chronic anemia, chronic pain, 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 The patient had a CBC done as an outpatient and it showed a hemoglobin less than 7.0. 03/02 Patient is not in any distress. He remains afebrile. Vital signs stable. Podiatry following, report that they will not be performing any further surgical treatment on the patient's foot at this time. Hgb stable at 8.6 at this time. No e/o active bleeding. Will repeat H&H later today. Cr trended up. Hold ACEI and Vancomycin. IVF bolus followed by maintenance IV fluid. Repeat Cr in am. Acute on chronic anemia Likely due to IV Vancomycin Patient was previously seen by hematology on December 24, 2017 and at the time his anemia was felt to be anemia of chronic inflammation due to decreased red blood cell production and functional iron deficiency. However that hospitalization there was no suspected underlying bone marrow disorder, and patient had no evidence to suggest iron deficiency, occult blood loss. He responded well to blood transfusion. Hgb 6.2 s/p transfusion 2units PRBCs. Likely 2/2 vancomycin. Hgb currently 8.6 will continue to monitor. iron studies indicative of anemia of chronic disease -GI following, no indication for GI procedures at this time secondary to recent GI workup and no obvious GI bleed. Recommend capsule endoscopy as outpatient. GI signed off. -Hematology consultation as needed -monitor H/H intermittently Pseudoaneurysm right brachial artery Doppler US neg for DVT but revealed a pseudoaneurysm which appears to emanate from the distal brachial artery measuring 3.6 x 2.2 by 2.2 cm. -Dr. Jensen consulted, appreciate assistance. No further intervention needed at this time. Patient able to have PICC line placed above antecubital fossa if needed. Chronic osteomyelitis, MRSA Bilateral foot wounds/ulcers -Continue on IV vancomycin with stop date 03/09 -Continue with wound care -Patient evaluated by Dr. Vu of podiatry, no surgical intervention needed at this time, appreciate recommendations -ID following, appreciate assistance. Continue on IV Vanco. PICC line placed . MRI studies of bilateral feet shows osteo. -Podiatry following, appreciate assistance. ABIs normal bilaterally. Diarrhea, resolved -likely secondary to TF -monitor History of CVA with left-sided hemiparesis Dysphagia ok to resume TF per GI -[employer] Specialist consulted, continue TF Glucerna 1.5 @ 65 mls/hr Diabetes mellitus -continue on accucheks and ISS -Blood sugars overall controlled -patient on Levemir 5u BID at home. Will continue to hold for now. Cover with sliding scale only. Hypertension/hyperlipidemia BP controlled at present -Continue on home antihypertensives Coreg, hydralazine, Norvasc and lisinopril. -Continue to monitor BP and adjust treatment accordingly -Continue on Lipitor Hyperkalemia, mild K 5.2 -Avoid potassium containing prior -repeat K level later today Seizure d/o -Continue on home dose of Keppra -seizure precautions -monitor for any seizure activity Psychiatric disorder/depression -Continue on home medications DVT prophylaxis: Bilateral SCDs, Heparin sq Discharge Planning: Discharge is pending ID clearance
[2018-03-02] MEDS: Escitalopram 10 MG Tablet G-TUBE SCH (09:33)
[2018-03-02] MEDS: amLODIPine 10 MG Tablet G-TUBE SCH (09:33)
[2018-03-02] MEDS: Heparin - SQ 10,000 UNITS/ML Vial SQ SCH ×2 (09:33→23:31)
[2018-03-02] MEDS: levETIRAcetam 500 MG Tablet G-TUBE SCH ×3 (09:33→18:10)
[2018-03-02] MEDS: Carvedilol 12.5 MG Tablet G-TUBE SCH ×2 (09:34→23:31)
[2018-03-02] MEDS: Ascorbic Acid 500 MG Tablet G-TUBE SCH ×2 (09:34→23:33)
[2018-03-02] MEDS: Senna/Docusate Sodium 8.6/50 MG Tablet G-TUBE SCH ×2 (09:35→23:33)
[2018-03-02] MEDS: Insulin NovoLOG Aspart Correctional Sugar Inj SQ SCH ×4 (09:35→23:32)
[2018-03-02] MEDS: DAPTOmycin Inj 800 MG in Sodium Chlor 0.9% Inj 100 ML IV.SIG SCH (14:36)
--- NOTE | 2018-03-02 16:36 | P.PNID ---
Subjective Remarks: awake alert afebrile Both feet MRI + for osteo dw Dr Forrester - she recommended against any surgical intervention including bone bx Now with mild CEDRIC, creatinine improved after vanco was held no fever no other c/o Antibiotics: daptomycin Allergies/Adverse Reactions: Allergies No Known Allergies Allergy (Unknown, Uncoded 01/06/18 21:04) Objective Vital Signs 03/01/18 20:00 03/02/18 00:00 03/02/18 04:00 Temperature 98.7 F 98.9 F Pulse Rate 95 H 85 95 H Respiratory Rate 18 18 18 Blood Pressure 144/87 H 144/84 H 152/86 H Pulse Oximetry 95 95 94 L 03/02/18 08:00 03/02/18 12:00 Temperature 98.5 F 98.1 F Pulse Rate 97 H 81 Respiratory Rate 20 20 Blood Pressure 179/99 H 130/79 Pulse Oximetry 92 L 93 L Intake & Output 03/01/18 03/02/18 03/02/18 18:59 06:59 18:59 Intake Total 250 / 250 1000 / 1000 Balance 250 / 250 1000 / 1000 Weight 87.7 kg Intake: IV 250 / 250 1000 / 1000 NS Inj 1,000 ML @ 75 mls/hr IV. 1000 / 1000 CONT .[id number] KRISTIE Rx#:[id number] NS Inj 250 ML @ Wide Open IV. 250 / 250 SIG BOLUS ONE Rx#:[id number] Other: # Incontinent Voids 3 2 Date of Last Bowel Movement 02/28/18 03/01/18 # Bowel Movements 2 Lab - Hematology Results 03/01/18 03/01/18 03/02/18 05:30 12:33 06:12 WBC 4.0 RBC 2.53 L Hgb 7.7 L 7.7 L 8.6 L Hct 23.6 L 24.2 L 26.1 L MCV 93.4 MCH 30.6 MCHC 32.7 RDW 16.6 Plt Count 165 MPV 9.6 Neut % (Auto) 62.4 Lymph % (Auto) 24.1 [place] % (Auto) 10.9 H Eos % (Auto) 2.1 Baso % (Auto) 0.5 Neut # (Auto) 2.5 Lymph # (Auto) 1.0 [place] # (Auto) 0.4 Eos # (Auto) 0.1 Baso # (Auto) 0.0 WBC Differential . Differential Comment Auto diff final Lab - Chemistry Results 02/28/18 02/28/18 02/28/18 16:48 16:50 20:10 Sodium Potassium Chloride Carbon Dioxide Anion Gap BUN Creatinine Estimated GFR POC Glucose 151 H 140 H 122 H Random Glucose Calcium Total Bilirubin AST ALT Alkaline Phosphatase Total Protein Albumin 03/01/18 03/01/18 03/01/18 05:30 07:34 11:30 Sodium 143 Potassium 5.2 H Chloride 110 H Carbon Dioxide 28.5 Anion Gap 5 BUN 51 H Creatinine 1.64 H Estimated GFR 55 L POC Glucose 141 H 178 H Random Glucose 123 H Calcium 7.7 L Total Bilirubin 0.3 AST 23 ALT 22 Alkaline Phosphatase 121 H Total Protein 7.5 D Albumin 2.7 L 03/01/18 03/01/18 03/01/18 12:33 17:04 21:00 Sodium Potassium 5.4 H Chloride Carbon Dioxide Anion Gap BUN Creatinine Estimated GFR POC Glucose 203 H 190 H Random Glucose Calcium Total Bilirubin AST ALT Alkaline Phosphatase Total Protein Albumin 03/02/18 03/02/18 03/02/18 01:45 08:06 12:55 Sodium 145 Potassium 4.7 Chloride 111 H Carbon Dioxide 29.3 Anion Gap 5 BUN 46 H Creatinine 1.48 H Estimated GFR 62 L POC Glucose 205 H 193 H Random Glucose 125 H Calcium 8.1 L Total Bilirubin AST ALT Alkaline Phosphatase Total Protein Albumin Imaging: ITS Impressions Abdomen/Pelvis CT 02/17/18 00:00 CONCLUSION: 1. Small bilateral pleural effusions and bilateral lower lung opacity again seen. 2. Mild splenomegaly again seen. 3. Gastrostomy tube in place. 4. No evidence of bowel dilatation. 5. Heterotopic ossification about the left hip again seen. 6. Calcified adrenal glands again seen. 7. Enlarged inguinal lymph nodes again seen. Venous Doppler Study 02/18/18 00:00 CONCLUSION: 1. No DVT or SVT. 2. 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 This measures 3.6 x 2.2 x 2.2 cm and is predominantly thrombosed with a small, 6 x 9 mm patent component showing biphasic flow. Central Venous Line 02/22/18 00:00 CONCLUSION: 1. Uncomplicated tunneled central venous Power PICC line placement. 2. The PICC line can be used immediately. Foot MRI 02/22/18 00:00 CONCLUSION: 1. Findings most characteristic of early osteomyelitis at the medial aspect of the first metatarsal head and a tiny focus of probable osteomyelitis at the medial corner of the proximal phalanx great toe. Mild surrounding cellulitis. 2. Previous partial amputation fifth metatarsal. Extremity Arterial Study 02/26/18 00:00 CONCLUSION: 1. Normal ABIs bilaterally. Physical Exam: GENERAL: NAD SKIN: Warm and dry. HEAD: Atraumatic. Normocephalic. EYES: Pupils equal and round. No scleral icterus. No injection or drainage. ENT: No nasal bleeding or discharge. Mucous membranes pink and moist. CARDIOVASCULAR: Regular rate and rhythm. RESPIRATORY: No accessory muscle use. Clear to auscultation. Breath sounds equal bilaterally. GASTROINTESTINAL: Abdomen soft, non-tender, nondistended. Hepatic and splenic margins not palpable. PEG in place MUSCULOSKELETAL: Extremities without clubbing, cyanosis, or edema. No obvious deformities. B/l feet with dressings in place NEUROLOGICAL: Awake and alert. No obvious cranial nerve deficits. L side hemiplegia PSYCHIATRIC: Appropriate mood and affect; insight and judgment normal. Assessment and Plan - Plan B/L foot osteomyelitis MRSA, on vancomycin - trough level too high Anemia likely 2/2 vanco Mild CEDRIC, likely 2/2 vanco - pt has 2 adverse effects from vancomycin so far, I will recommend to avoid vancomycin cont daptomycin to complete 6 weeks of abx consider L foot bx for culture PICC dw Dr Forrester
[2018-03-03] MEDS: Sod Chloride 0.9% Inj 1,000 ML IV.CONT SCH ×3 (05:59→21:38)
[2018-03-03 07:57] LABS: Hematocrit 25.6 % (39.0-51.0); Hemoglobin 8.3 gm/dL (13.0-17.0); Mean Corpuscular HGB Conc 32.3 % (32.0-36.0); Mean Corpuscular Hemoglobin 30.9 pg (27.0-34.0); Mean Corpuscular Volume 95.9 fL (80.0-100.0); Mean Platelet Volume 10.1 fL (7.0-11.0); Platelet Count 183 th/mm3 (150-450); Red Blood Count 2.67 mil/mm3 (4.50-5.90); Red Cell Distribution Width 17.6 % (11.6-17.2); White Blood Count 5.3 th/mm3 (4.0-11.0)
[2018-03-03 08:19] LABS: Carbon Dioxide 30.1 meq/L (21.0-32.0); Potassium 5.2 meq/L (3.5-5.1)
[2018-03-03 08:20] LABS: Vancomycin,Random 15.1 Comment
[2018-03-03] MEDS: Heparin - SQ 10,000 UNITS/ML Vial SQ SCH ×2 (08:39→21:29)
[2018-03-03] MEDS: Escitalopram 10 MG Tablet G-TUBE SCH (08:40)
[2018-03-03] MEDS: amLODIPine 10 MG Tablet G-TUBE SCH (08:41)
[2018-03-03] MEDS: levETIRAcetam 500 MG Tablet G-TUBE SCH ×3 (08:41→17:23)
[2018-03-03] MEDS: Carvedilol 12.5 MG Tablet G-TUBE SCH ×2 (08:41→21:28)
[2018-03-03] MEDS: Ascorbic Acid 500 MG Tablet G-TUBE SCH ×2 (08:41→21:28)
[2018-03-03] MEDS: Senna/Docusate Sodium 8.6/50 MG Tablet G-TUBE SCH ×2 (08:41→21:28)
[2018-03-03] MEDS: Insulin NovoLOG Aspart Correctional Sugar Inj SQ SCH ×4 (08:48→21:30)
--- NOTE | 2018-03-03 12:36 | P.PNIM ---
Subjective Interval history: Patient seen and examined this morning. Afebrile vital signs stable. Patient is noncommunicative and does not follow commands. Does not appear to be in distress. Patient appears to be taking short breaths, will request evaluation by respiratory and start DuoNeb treatments. Physical Exam Vital signs: Vital Signs 03/02/18 16:00 03/02/18 20:00 03/02/18 20:30 Temperature 97.9 F 98.1 F Pulse Rate 86 81 88 Respiratory Rate 20 19 Blood Pressure 147/85 H Pulse Oximetry 93 L 98 03/03/18 00:30 03/03/18 05:45 Temperature 97.9 F 98 F Pulse Rate 89 80 Respiratory Rate 19 20 Blood Pressure 130/67 128/88 Pulse Oximetry 99 98 Intake & Output 03/02/18 03/03/18 03/03/18 18:59 06:59 18:59 Intake Total 2180 / 2180 1000 / 1000 Balance 2180 / 2180 1000 / 1000 Weight 88 kg Intake: IV 1100 / 1100 1000 / 1000 NS Inj 1,000 ML @ 75 mls/hr IV. 1000 / 1000 1000 / 1000 CONT .[id number] KRISTIE Rx#:[id number] Cubicin Inj 800 MG In NS Inj 100 / 100 100 ML @ 200 mls/hr IV.SIG Q24H KRISTIE Rx#:[id number] Oral 0 / 0 0 / 0 Tube Feeding 780 / 780 Tube Irrigant 200 / 200 Other 100 / 100 Other: Other Intake Source Saline Solution # Voids 3 # Incontinent Voids 6 Date of Last Bowel Movement 03/02/18 # Incontinent Bowel Movements 1 Narrative: GENERAL: WDWN male patient, INAD. Awake. Responds with shaking head yes/no. Appears comfortable. SKIN: Warm and dry. No generalized rash. Bilateral feet wrapped and in heel raiser boots bilaterally. HEENT: Atraumatic. Normocephalic. Pupils equal and round. No scleral icterus. No injection or drainage. No nasal bleeding or discharge. NECK: Trachea midline. Airway patent. CARDIOVASCULAR: Regular rate and rhythm. No murmur appreciated. RESPIRATORY: No accessory muscle use. Poor effort. Clear to auscultation anteriorly. Breath sounds equal bilaterally. GASTROINTESTINAL: Abdomen soft, non-tender, nondistended. +PEG tube in place mid abdomen, site C/D/I MUSCULOSKELETAL: Extremities without clubbing, cyanosis. +spontaneous movement in RUE. LLE contracted. NEUROLOGICAL: Awake and alert. Unable to assess motor function, patient not following commands. Nonverbal. PSYCHIATRIC: Calm. Results - Labs CBC & Chem 7: 03/03/18 06:40 03/03/18 06:40 Laboratory Results - last 24 hr 03/02/18 03/02/18 03/02/18 12:55 18:12 20:48 WBC RBC Hgb Hct MCV MCH MCHC RDW Plt Count MPV Sodium Potassium Chloride Carbon Dioxide Anion Gap BUN Creatinine Estimated GFR POC Glucose 193 H 192 H 196 H Random Glucose Calcium Random Vancomycin 03/03/18 03/03/18 03/03/18 06:40 06:40 08:23 WBC 5.3 RBC 2.67 L Hgb 8.3 L Hct 25.6 L MCV 95.9 MCH 30.9 MCHC 32.3 RDW 17.6 H Plt Count 183 MPV 10.1 Sodium 149 H Potassium 5.2 H Chloride 113 H Carbon Dioxide 30.1 Anion Gap 6 BUN 49 H Creatinine 1.35 H Estimated GFR 69 L POC Glucose 232 H Random Glucose 207 H Calcium 8.0 L Random Vancomycin 15.1 - Procedures s/p PICC line placement 02/22 Assessment and Plan - Assessment (1) Acute on chronic anemia Code(s): D64.9 - Anemia, unspecified Status: Acute (2) Anemia of chronic disorder Code(s): D63.8 - Anemia in other chronic diseases classified elsewhere Status : Acute (3) Pseudoaneurysm of brachial artery Code(s): I72.1 - Aneurysm of artery of upper extremity Status: Acute (4) Osteomyelitis Code(s): M86.9 - Osteomyelitis, unspecified Status: Acute (5) Diabetes Code(s): E11.9 - Type 2 diabetes mellitus without complications Status: Acute - Plan 47 year-old man with diabetes mellitus, hypertension, chronic anemia, chronic pain, 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 The patient had a CBC done as an outpatient and it showed a hemoglobin less than 7.0. 03/03 Patient is not in any distress. He remains afebrile. Vital signs stable. Podiatry following, report that they will not be performing any further surgical treatment on the patient's foot at this time. Increased IV fluids due to elevated sodium and potassium levels. Acute on chronic anemia Likely due to IV Vancomycin Patient was previously seen by hematology on December 24, 2017 and at the time his anemia was felt to be anemia of chronic inflammation due to decreased red blood cell production and functional iron deficiency. However that hospitalization there was no suspected underlying bone marrow disorder, and patient had no evidence to suggest iron deficiency, occult blood loss. He responded well to blood transfusion. Hgb 6.2 s/p transfusion 2units PRBCs. Likely 2/2 vancomycin. Hgb currently 8.6 will continue to monitor. iron studies indicative of anemia of chronic disease -GI following, no indication for GI procedures at this time secondary to recent GI workup and no obvious GI bleed. Recommend capsule endoscopy as outpatient. GI signed off. -Hematology consultation as needed -monitor H/H intermittently Pseudoaneurysm right brachial artery Doppler US neg for DVT but revealed a pseudoaneurysm which appears to emanate from the distal brachial artery measuring 3.6 x 2.2 by 2.2 cm. -Dr. Jensen consulted, appreciate assistance. No further intervention needed at this time. Patient able to have PICC line placed above antecubital fossa if needed. Chronic osteomyelitis, MRSA Bilateral foot wounds/ulcers -Stop vancomycin due to kidney injury -Continue on daptomycin to complete 6 weeks of antibiotics -Continue with wound care -Patient evaluated by Dr. Vu of podiatry, no surgical intervention needed at this time, appreciate recommendations -ID following, appreciate assistance. PICC line placed 02/22. MRI studies of bilateral feet shows osteo. -Podiatry following, appreciate assistance. ABIs normal bilaterally. Diarrhea, resolved -likely secondary to TF -monitor History of CVA with left-sided hemiparesis Dysphagia ok to resume TF per GI -Switching Clerk consulted, continue TF Glucerna 1.5 @ 65 mls/hr Diabetes mellitus -continue on accucheks and ISS -Blood sugars overall controlled -patient on Levemir 5u BID at home. Will continue to hold for now. Cover with sliding scale only. Hypertension/hyperlipidemia BP controlled at present -Continue on home antihypertensives Coreg, hydralazine, Norvasc and lisinopril. -Continue to monitor BP and adjust treatment accordingly -Continue on Lipitor Hyperkalemia, mild K 5.2 -Avoid potassium containing medication -repeat K level later today -Increased IV fluids to 100 cc/h Hypernatremia, mild Na 149 -Increase the rate of IV fluids at this time. We will continue to monitor. Seizure d/o -Continue on home dose of Keppra -seizure precautions -monitor for any seizure activity Psychiatric disorder/depression -Continue on home medications DVT prophylaxis: Bilateral SCDs, Heparin sq Code Status: Full code Discussed Condition With: Discussed with personnel technician Planning: Discharge is pending ID clearance
[2018-03-03] MEDS: DAPTOmycin Inj 800 MG in Sodium Chlor 0.9% Inj 100 ML IV.SIG SCH (14:50)
[2018-03-03 17:56] LABS: ABG Base Excess 2.1 mmol/L (-2-2); ABG PCO2 59 mmHg (38-42); ABG PO2 63 mmHg (61-120)
--- NOTE | 2018-03-03 18:59 | XR ---
EXAM DATE: 03/03/2018 6:40 PM EDT AGE/SEX: 47 years / Male INDICATIONS: Short of breath. CLINICAL DATA: This is the patient's subsequent encounter. Patient reports that signs and symptoms h ave been present for 1 day and indicates a pain score of Nonresponsive. MEDICAL/SURGICAL HISTORY: . . Anemia, CVA, depression, diabetes, gastrostomy tube, hemiparesis, hemiplegia, hyperlipidemia, hypertension . None. COMPARISON: [facility] [place], [facility], 12/17/2017. . FINDINGS: Significant opacity has developed throughout the right hemithorax. There is significant airspace dise ase in the left base as well. Heart is mildly enlarged. Right jugular catheter is directed cephalad. CONCLUSION: 1. Diffuse opacity throughout the right lung characteristic of airspace disease and pleural effusion . 2. Increased opacity left lung base characteristic of airspace disease and possible pleural fluid. 3. Right jugular central venous catheter directed cephalad Electronically signed by: Balbir Garcia MD 03/03/2018 6:58 PM EDT
[2018-03-04] MEDS ORDERED: Chlorhexidine Gluconate 2% 1 Pack (2 Cloths) TOPICAL PRN (04:00)
[2018-03-04] MEDS: Chlorhexidine Gluconate 2% 1 Pack (2 Cloths) TOPICAL SCH (06:56)
[2018-03-04 07:09] LABS: Hematocrit 24.2 % (39.0-51.0); Hemoglobin 7.7 gm/dL (13.0-17.0); Mean Corpuscular Volume 96.9 fL (80.0-100.0); Mean Platelet Volume 10.1 fL (7.0-11.0); Platelet Count 152 th/mm3 (150-450); Red Cell Distribution Width 17.7 % (11.6-17.2); White Blood Count 3.9 th/mm3 (4.0-11.0)
[2018-03-04 07:33] LABS: Alanine Aminotransferase 22 U/L (12-78); Albumin 2.9 g/dL (3.4-5.0); Alkaline Phosphatase 128 U/L (45-117); Anion Gap 7 meq/L (5-15); Aspartate Aminotransferase 23 U/L (15-37); Blood Urea Nitrogen 51 mg/dL (7-18); Calcium 8.3 mg/dL (8.5-10.1); Carbon Dioxide 27.4 meq/L (21.0-32.0); Chloride 118 meq/L (98-107); Glomerular Filtration Rate 68 mL/min (>89); Glucose,Random 97 mg/dL (74-106); Potassium 4.9 meq/L (3.5-5.1); Sodium 152 meq/L (136-145); Total Protein 8.1 g/dL (6.4-8.2)
--- NOTE | 2018-03-04 08:13 | P.PNIM ---
Subjective Interval history: Patient seen and examined this morning. Temperature 98.6, pulse 82, respiratory rate 18, blood pressure 137/84, pulse ox 92. Overnight progressively worsening accessory muscle use and shallow breathing. ABG performed are concerning for poor oxygenation. Chest x-ray performed concerning for new consolidation. Patient is in a chronic vegetative state does not follow commands or communicate. Have escalated antibiotic regimen, consulted pulmonology, and awaiting further recommendations by infectious disease. Physical Exam Vital signs: Vital Signs 03/03/18 09:00 03/03/18 12:00 03/03/18 16:00 Temperature 97.4 F L 97.3 F L Pulse Rate 84 86 Respiratory Rate 20 20 Blood Pressure 117/69 116/71 Pulse Oximetry 93 L 93 L 93 L 03/03/18 17:37 03/03/18 18:03 03/03/18 18:51 Temperature 98.5 F Pulse Rate 80 84 Respiratory Rate 18 28 H Blood Pressure 129/73 Pulse Oximetry 90 L 97 03/03/18 20:00 03/03/18 21:15 03/03/18 22:00 Temperature 98.4 F Pulse Rate 87 88 91 H Respiratory Rate 19 18 Blood Pressure 122/93 H Pulse Oximetry 96 95 03/04/18 00:00 03/04/18 02:00 03/04/18 04:00 Temperature 98.6 F 98.6 F Pulse Rate 82 79 82 Respiratory Rate 19 18 Blood Pressure 144/75 H 137/84 Pulse Oximetry 92 L 92 L 03/04/18 06:00 Temperature Pulse Rate 85 Respiratory Rate Blood Pressure Pulse Oximetry Intake & Output 03/03/18 03/04/18 03/04/18 18:59 06:59 18:59 Intake Total 1164 / 1164 Balance 1164 / 1164 Weight 90.7 kg 89.2 kg Intake: IV 1100 / 1100 NS Inj 1,000 ML @ 75 mls/hr IV. 1000 / 1000 CONT .[id number] KRISTIE Rx#:[id number] Cubicin Inj 800 MG In NS Inj 100 / 100 100 ML @ 200 mls/hr IV.SIG Q24H KRISTIE Rx#:[id number] Tube Feeding 64 / 64 Other: # Voids 3 Date of Last Bowel Movement 03/02/18 Narrative: GENERAL: WDWN male patient, INAD. Asleep and is not responding to commands. appears comfortable. SKIN: Warm and dry. No generalized rash. Bilateral feet wrapped and in heel raiser boots bilaterally. HEENT: Atraumatic. Normocephalic. Pupils equal and round. No scleral icterus. No injection or drainage. No nasal bleeding or discharge. NECK: Trachea midline. Airway patent. CARDIOVASCULAR: Regular rate and rhythm. No murmur appreciated. RESPIRATORY: Noticeable accessory muscle use. Poor effort, decreased breath sounds in the lower ruiz bilaterally GASTROINTESTINAL: Abdomen soft, non-tender, nondistended. +PEG tube in place mid abdomen, site C/D/I MUSCULOSKELETAL: Extremities without clubbing, cyanosis. +spontaneous movement in RUE. LLE contracted. NEUROLOGICAL: Awake and alert. Unable to assess motor function, patient not following commands. Nonverbal. PSYCHIATRIC: Calm. Results - Labs CBC & Chem 7: 03/04/18 05:26 03/04/18 05:26 Laboratory Results - last 24 hr 03/03/18 03/03/18 03/03/18 06:40 08:23 12:27 WBC RBC Hgb Hct MCV MCH MCHC RDW Plt Count MPV Puncture Site Patient Temperature O2 Saturation ABG pH ABG pCO2 ABG pO2 ABG HCO3 ABG O2 Content ABG Base Excess ABG Methemoglobin Rodriguez Test Hemoglobin Carboxyhemoglobin O2 Delivery Device Liter Flow Inspired O2 Critical Value Sodium 149 H Potassium 5.2 H Chloride 113 H Carbon Dioxide 30.1 Anion Gap 6 BUN 49 H Creatinine 1.35 H Estimated GFR 69 L POC Glucose 232 H 201 H Random Glucose 207 H Calcium 8.0 L Total Bilirubin AST ALT Alkaline Phosphatase Total Protein Albumin Nasal Screen MRSA (PCR) Random Vancomycin 15.1 03/03/18 03/03/18 03/03/18 18:35 18:45 21:30 WBC RBC Hgb Hct MCV MCH MCHC RDW Plt Count MPV Puncture Site Left radial Patient Temperature 98.6 O2 Saturation 87 L* ABG pH 7.30 L ABG pCO2 59 H* ABG pO2 63 ABG HCO3 28 H ABG O2 Content 12.6 ABG Base Excess 2.1 H ABG Methemoglobin 0.9 Rodriguez Test Present Hemoglobin 10.3 L Carboxyhemoglobin 2.5 O2 Delivery Device Nasal cannula Liter Flow 2.00 Inspired O2 21 Critical Value Yes Sodium Potassium Chloride Carbon Dioxide Anion Gap BUN Creatinine Estimated GFR POC Glucose 130 H Random Glucose Calcium Total Bilirubin AST ALT Alkaline Phosphatase Total Protein Albumin Nasal Screen MRSA (PCR) Mrsa detected Random Vancomycin 03/04/18 03/04/18 05:26 05:26 WBC 3.9 L RBC 2.50 L Hgb 7.7 L Hct 24.2 L MCV 96.9 MCH 31.0 MCHC 32.0 RDW 17.7 H Plt Count 152 MPV 10.1 Puncture Site Patient Temperature O2 Saturation ABG pH ABG pCO2 ABG pO2 ABG HCO3 ABG O2 Content ABG Base Excess ABG Methemoglobin Rodriguez Test Hemoglobin Carboxyhemoglobin O2 Delivery Device Liter Flow Inspired O2 Critical Value Sodium 152 H Potassium 4.9 Chloride 118 H Carbon Dioxide 27.4 Anion Gap 7 BUN 51 H Creatinine 1.36 H Estimated GFR 68 L POC Glucose Random Glucose 97 D Calcium 8.3 L Total Bilirubin 0.4 AST 23 ALT 22 Alkaline Phosphatase 128 H Total Protein 8.1 D Albumin 2.9 L Nasal Screen MRSA (PCR) Random Vancomycin - Imaging Impressions Chest X-Ray 03/03/18 17:52 CONCLUSION: 1. Diffuse opacity throughout the right lung characteristic of airspace disease and pleural effusion. 2. Increased opacity left lung base characteristic of airspace disease and possible pleural fluid. 3. Right jugular central venous catheter directed cephalad - Procedures s/p PICC line placement 02/22 Assessment and Plan - Assessment (1) Acute on chronic anemia Code(s): D64.9 - Anemia, unspecified Status: Acute (2) Anemia of chronic disorder Code(s): D63.8 - Anemia in other chronic diseases classified elsewhere Status : Acute (3) Pseudoaneurysm of brachial artery Code(s): I72.1 - Aneurysm of artery of upper extremity Status: Acute (4) Osteomyelitis Code(s): M86.9 - Osteomyelitis, unspecified Status: Acute (5) Diabetes Code(s): E11.9 - Type 2 diabetes mellitus without complications Status: Acute - Plan 47 year-old man with diabetes mellitus, hypertension, chronic anemia, chronic pain, 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 The patient had a CBC done as an outpatient and it showed a hemoglobin less than 7.0. 03/04 Patient is asleep and having shallow breathing. He remains afebrile. Vital signs stable. ABG concerning for poor oxygenation. Podiatry following, report that they will not be performing any further surgical treatment on the patient's foot at this time. Pneumonia (worsening atelectasis versus healthcare associated pneumonia) -Status post chest x-ray concerning for consolidation in the lower lobes bilaterally. -Consulted pulmonology -We will continue the patient's daptomycin and escalate antibiotics -Started levofloxacin -Started Zosyn -Awaiting further recommendations by pulmonology and infectious disease -Respiratory therapy consult -Continue duo nebs Acute on chronic anemia Likely due to IV Vancomycin Patient was previously seen by hematology on December 24, 2017 and at the time his anemia was felt to be anemia of chronic inflammation due to decreased red blood cell production and functional iron deficiency. However that hospitalization there was no suspected underlying bone marrow disorder, and patient had no evidence to suggest iron deficiency, occult blood loss. He responded well to blood transfusion. Hgb 6.2 s/p transfusion 2units PRBCs. Likely 2/2 vancomycin. Hgb currently 8.6 will continue to monitor. iron studies indicative of anemia of chronic disease -GI following, no indication for GI procedures at this time secondary to recent GI workup and no obvious GI bleed. Recommend capsule endoscopy as outpatient. GI signed off. -Hematology consultation as needed -monitor H/H intermittently Pseudoaneurysm right brachial artery Doppler US neg for DVT but revealed a pseudoaneurysm which appears to emanate from the distal brachial artery measuring 3.6 x 2.2 by 2.2 cm. -Dr. Jensen consulted, appreciate assistance. No further intervention needed at this time. Patient able to have PICC line placed above antecubital fossa if needed. Chronic osteomyelitis, MRSA Bilateral foot wounds/ulcers -Stop vancomycin due to kidney injury -Continue on daptomycin to complete 6 weeks of antibiotics -Continue with wound care -Patient evaluated by Dr. Vu of podiatry, no surgical intervention needed at this time, appreciate recommendations -ID following, appreciate assistance. PICC line placed 02/22. MRI studies of bilateral feet shows osteo. -Podiatry following, appreciate assistance. ABIs normal bilaterally. Diarrhea, resolved -likely secondary to TF -monitor History of CVA with left-sided hemiparesis Dysphagia ok to resume TF per GI -Ironing Pleater consulted, continue TF Glucerna 1.5 @ 65 mls/hr Diabetes mellitus -continue on accucheks and ISS -Blood sugars overall controlled -patient on Levemir 5u BID at home. Will continue to hold for now. Cover with sliding scale only. Hypertension/hyperlipidemia BP controlled at present -Continue on home antihypertensives Coreg, hydralazine, Norvasc and lisinopril. -Continue to monitor BP and adjust treatment accordingly -Continue on Lipitor Hyperkalemia, mild K 5.2 -Avoid potassium containing medication -repeat K level later today -Increased IV fluids to 100 cc/h Hypernatremia, mild Na 149 -Increase the rate of IV fluids at this time. We will continue to monitor. Seizure d/o -Continue on home dose of Keppra -seizure precautions -monitor for any seizure activity Psychiatric disorder/depression -Continue on home medications DVT prophylaxis: Bilateral SCDs, Heparin sq Code Status: Full Discharge Planning: Discharge is pending ID clearance
[2018-03-04] MEDS: Insulin NovoLOG Aspart Correctional Sugar Inj SQ SCH ×4 (10:05→20:33)
[2018-03-04] MEDS: Piperacil/Tazo 4.5 GM Premix 4.5 GM/100 ML BAG IV.SIG SCH ×3 (10:12→21:15)
[2018-03-04] MEDS: Escitalopram 10 MG Tablet G-TUBE SCH (10:14)
[2018-03-04] MEDS: amLODIPine 10 MG Tablet G-TUBE SCH (10:14)
[2018-03-04] MEDS: Ascorbic Acid 500 MG Tablet G-TUBE SCH ×2 (10:14→20:34)
[2018-03-04] MEDS: Senna/Docusate Sodium 8.6/50 MG Tablet G-TUBE SCH ×2 (10:14→20:33)
[2018-03-04] MEDS: Heparin - SQ 10,000 UNITS/ML Vial SQ SCH ×2 (10:15→20:30)
[2018-03-04] MEDS: Carvedilol 12.5 MG Tablet G-TUBE SCH ×2 (13:40→20:30)
[2018-03-04] MEDS: levETIRAcetam 500 MG Tablet G-TUBE SCH ×3 (13:40→18:00)
--- NOTE | 2018-03-04 16:24 | P.PNID ---
Subjective Remarks: events noted pt is transferred to ICU 2/2 resp distress New infiltrates on CXR afebrile zosyn started Antibiotics: zosyn daptomycin Allergies/Adverse Reactions: Allergies No Known Allergies Allergy (Unknown, Uncoded 01/06/18 21:04) Objective Vital Signs 03/03/18 17:37 03/03/18 18:03 03/03/18 18:51 Temperature 98.5 F Pulse Rate 80 84 Respiratory Rate 18 28 H Blood Pressure 129/73 Pulse Oximetry 90 L 97 03/03/18 20:00 03/03/18 21:15 03/03/18 22:00 Temperature 98.4 F Pulse Rate 87 88 91 H Respiratory Rate 19 18 Blood Pressure 122/93 H Pulse Oximetry 96 95 03/04/18 00:00 03/04/18 02:00 03/04/18 04:00 Temperature 98.6 F 98.6 F Pulse Rate 82 79 82 Respiratory Rate 19 18 Blood Pressure 144/75 H 137/84 Pulse Oximetry 92 L 92 L 03/04/18 06:00 03/04/18 09:09 Temperature Pulse Rate 85 Respiratory Rate Blood Pressure Pulse Oximetry 92 L Intake & Output 03/03/18 03/04/18 03/04/18 18:59 06:59 18:59 Intake Total 1164 / 1164 Balance 1164 / 1164 Weight 90.7 kg 89.2 kg Intake: IV 1100 / 1100 NS Inj 1,000 ML @ 75 mls/hr IV. 1000 / 1000 CONT .[id number] KRISTIE Rx#:[id number] Cubicin Inj 800 MG In NS Inj 100 / 100 100 ML @ 200 mls/hr IV.SIG Q24H KRISTIE Rx#:[id number] Tube Feeding 64 / 64 Other: # Voids 3 Date of Last Bowel Movement 03/02/18 03/02/18 03/03/18 19:53 Blood - Peripheral Aerobic Blood Culture - Preliminary No growth in 1 day 03/03/18 19:53 Blood - Peripheral Anaerobic Blood Culture - Preliminary No growth in 1 day Lab - Hematology Results 03/03/18 03/04/18 06:40 05:26 WBC 5.3 3.9 L RBC 2.67 L 2.50 L Hgb 8.3 L 7.7 L Hct 25.6 L 24.2 L MCV 95.9 96.9 MCH 30.9 31.0 MCHC 32.3 32.0 RDW 17.6 H 17.7 H Plt Count 183 152 MPV 10.1 10.1 Lab - Chemistry Results 03/02/18 03/02/18 03/03/18 18:12 20:48 06:40 Sodium 149 H Potassium 5.2 H Chloride 113 H Carbon Dioxide 30.1 Anion Gap 6 BUN 49 H Creatinine 1.35 H Estimated GFR 69 L POC Glucose 192 H 196 H Random Glucose 207 H Calcium 8.0 L Total Bilirubin AST ALT Alkaline Phosphatase Total Protein Albumin 03/03/18 03/03/18 03/03/18 08:23 12:27 21:30 Sodium Potassium Chloride Carbon Dioxide Anion Gap BUN Creatinine Estimated GFR POC Glucose 232 H 201 H 130 H Random Glucose Calcium Total Bilirubin AST ALT Alkaline Phosphatase Total Protein Albumin 03/04/18 03/04/18 03/04/18 05:26 09:46 12:39 Sodium 152 H Potassium 4.9 Chloride 118 H Carbon Dioxide 27.4 Anion Gap 7 BUN 51 H Creatinine 1.36 H Estimated GFR 68 L POC Glucose 161 H 202 H Random Glucose 97 D Calcium 8.3 L Total Bilirubin 0.4 AST 23 ALT 22 Alkaline Phosphatase 128 H Total Protein 8.1 D Albumin 2.9 L Imaging: ITS Impressions Impressions Chest X-Ray 03/03/18 17:52 CONCLUSION: 1. Diffuse opacity throughout the right lung characteristic of airspace disease and pleural effusion. 2. Increased opacity left lung base characteristic of airspace disease and possible pleural fluid. 3. Right jugular central venous catheter directed cephalad Physical Exam: GENERAL: NAD SKIN: Warm and dry. HEAD: Atraumatic. Normocephalic. EYES: Pupils equal and round. No scleral icterus. No injection or drainage. ENT: No nasal bleeding or discharge. Mucous membranes pink and moist. CARDIOVASCULAR: Regular rate and rhythm. RESPIRATORY: No accessory muscle use. rhonchi to auscultation. Breath sounds equal bilaterally. GASTROINTESTINAL: Abdomen soft, non-tender, nondistended. Hepatic and splenic margins not palpable. PEG in place MUSCULOSKELETAL: Extremities without clubbing, cyanosis, or edema. No obvious deformities. B/l feet with dressings in place NEUROLOGICAL: Awake and alert. No obvious cranial nerve deficits. L side hemiplegia PSYCHIATRIC: Appropriate mood and affect; insight and judgment normal. Assessment and Plan - Plan B/L foot osteomyelitis MRSA, on vancomycin - trough level too high Anemia likely 2/2 vanco Mild CEDRIC, likely 2/2 vanco - pt has 2 adverse effects from vancomycin so far, I will recommend to avoid vancomycin New PNA ? aspioration cont daptomycin to complete 6 weeks of abx. - monitor CKs consider L foot bx for culture sputum clx CBC dw RN
[2018-03-04] MEDS: DAPTOmycin Inj 800 MG in Sodium Chlor 0.9% Inj 100 ML IV.SIG SCH (17:58)
[2018-03-04] MEDS: Sod Chloride 0.9% Inj 1,000 ML IV.CONT SCH ×2 (18:01→19:58)
--- NOTE | 2018-03-04 18:32 | MB ---
cc: Luis Manuel Kwan MD DATE: 03/04/2018 REASONS FOR CONSULTATION: Lung infiltrate and pleural effusion. LABORATORY DATA: WBC count 3.9, hemoglobin 7.7, hematocrit 24.1, MCV 97, platelet count 152. Sodium 152, potassium 4.9, chloride 118, CO2 of 27, BUN 51, creatinine 1.36. PAST MEDICAL HISTORY: CVA, diabetes mellitus, hypertension. MEDICATIONS: He is currently takin. Albuterol nebulizer treatment. 2. Norvasc 10 mg a day. 3. Vitamin C 500 mg. 4. Lipitor 10 mg a day. 5. Coreg 25 mg twice a day. 6. Daptomycin 800 mg p.r.n. 7. Heparin 5000 subcutaneous b.i.d. 8. NovoLog insulin. 9. Prevacid 30 mg a day. 10. Keppra 500 mg 3 times a day. 11. Levaquin IV. 12. Lisinopril 5 mg daily. 13. Zosyn IV. 14. Temazepam 50 mg at nighttime. ALLERGIES: NO KNOWN DRUG ALLERGIES. SOCIAL HISTORY: Not able to assessed. PHYSICAL EXAMINATION: GENERAL: Moderately-built, moderately-nourished male on nasal cannula, lethargic, barely opens eyes, barely nods to questioning. VITAL SIGNS: His blood pressure 137/84, heart rate 82, respirations 18, temperature 98.6. HEENT: Pupils are equal and reactive to light. NECK: Supple. JVD not raised. CHEST: Decreased slightly decreased breath sounds at the bases. HEART: S1, S2 normal. ABDOMEN: Benign. EXTREMITIES: He has bilateral feet dressings. IMPRESSION: 1. Bilateral lung infiltrates. 2. Small pleural effusion. 3. Osteomyelitis of both feet. 4. Diabetes mellitus. 5. Cerebrovascular accident with left-sided contracture. PLAN: We will continue present antibiotic per ID recommendation and aerosol treatment. Monitor his pleural effusion. Supplement his oxygen. If his pleural effusion increases, then we will get ultrasound-guided thoracentesis. Further treatment pending the course in the hospital. MD ELIER Jeffers/gavi/tao , 03:31 PM , 03:41 PM
--- NOTE | 2018-03-04 18:45 | P.DIET ---
Nutritional Evaluation Type of nutrition evaluation: follow-up Nutrition consult regarding: Tube Feeding Nutrition screening: [facility] (pt has PEG) Subjective Subjective Comments: Pt resides at [facility]. Has PEG for nutrition. Non-verbal. Objective - Diagnosis Anemia, Rectal Bleeding - Objective % IBW: 114 (IBW = 172#) Body Weight Used for Calculations: Actual (89.5 kg) Energy Needs - Lower Range (kCal/kg): 25 Energy Needs - Upper Range (kCal/kg): 30 Lower Limit kCal/kg (kCals): 2,238 Upper Limit kCal/kg (kCals): 2,685 Lower Limit Protein Factor (Grams per Kg): 1.0 Upper Limit Protein Factor (Grams per Kg): 1.5 Lower Protein Needs (Protein): 90 Upper Protein Needs (Protein): 134 Fluid Factor (ml/kg): 30 Estimated Fluid Needs (ml): 2,685 Dietitian Reviewed in Medical Record: Curent medications, Intake & Output, Labs , Medical history, Tube feeding, Wound/DTI Diet Order: TF'ing Wound Care Note: WOCN dated 02/18-please see note in EMR Objective Comments: PMH Includes: DM, HTN, chronic anemia, chronic pain, 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 TFing w/ Glucerna 1.5 @ goal rate 65 mls/hr provides for pt' s assessed needs. Labs reviewed. Wt changes noted. Dietitian following. Recommendations: 1. Rec to continue TF'ing w/ Glucerna 1.5 @ goal rate 65 mls/hr 2. Dietitian following Dietitian to Monitor: Lab values, Glucose level, Intake & Output, Tube feeding tolerance, Weight change, Wound/skin status (Initiation of TF), Medical course
[2018-03-05] MEDS: Piperacil/Tazo 4.5 GM Premix 4.5 GM/100 ML BAG IV.SIG SCH ×4 (04:25→21:14)
[2018-03-05] MEDS: Chlorhexidine Gluconate 2% 1 Pack (2 Cloths) TOPICAL SCH (04:26)
[2018-03-05] MEDS: Sod Chloride 0.9% Inj 1,000 ML IV.CONT SCH (04:29)
[2018-03-05] MEDS ORDERED: Sodium Bicarbonate 8.4% Inj 50 MEQ/50 ML Syringe IV.CONT ONE (05:00)
[2018-03-05] MEDS ORDERED: Calcium Chloride Inj 1 GM/10 ML Syringe IV.CONT ONE (05:00)
[2018-03-05 06:02] LABS: Baso % (Auto) 0.3 % (0.0-2.0); Eos # (Auto) 0.1 th/mm3 (0.0-0.4); Eos % (Auto) 1.3 % (0.0-4.0); Hematocrit 24.5 % (39.0-51.0); Hemoglobin 7.5 gm/dL (13.0-17.0); Lymph # (Auto) 0.8 th/mm3 (1.0-4.8); Lymph % (Auto) 17.4 % (9.0-44.0); Mean Corpuscular Hemoglobin 30.6 pg (27.0-34.0); Mean Corpuscular Volume 100.6 fL (80.0-100.0); Mean Platelet Volume 9.8 fL (7.0-11.0); Mono # (Auto) 0.5 th/mm3 (0.0-0.9); Mono % (Auto) 11.4 % (0.0-8.0); Neut % (Auto) 69.6 % (16.0-70.0); Platelet Count 138 th/mm3 (150-450); Red Blood Count 2.44 mil/mm3 (4.50-5.90); White Blood Count 4.3 th/mm3 (4.0-11.0)
[2018-03-05 06:14] LABS: Mean Corpuscular HGB Conc 30.4 % (32.0-36.0)
[2018-03-05 06:39] LABS: Calcium 7.8 mg/dL (8.5-10.1); Carbon Dioxide 28.3 meq/L (21.0-32.0); Potassium 6.1 meq/L (3.5-5.1)
--- NOTE | 2018-03-05 07:26 | XR ---
EXAM DATE: 03/05/2018 7:20 AM EDT AGE/SEX: 47 years / Male INDICATIONS: Post intubation. CLINICAL DATA: This is the patient's subsequent encounter. Patient reports that signs and symptoms h ave been present for 1 day and indicates a pain score of Nonresponsive. MEDICAL/SURGICAL HISTORY: . Anemia, CVA, depression, diabetes, gastrostomy tube, hemiparesis, h emiplegia, hyperlipidemia, hypertension None. COMPARISON: [facility], CHEST 1V SINGLE AP, 03/03/2018. . FINDINGS: A single AP view of the chest was performed. The right IJ central venous catheter is again directed c ephalad, with distal tip beyond the superior field of view. Endotracheal tube with distal tip superio r to the mid clavicular heads, approximately 8.5 cm above the luz maria. This could be advanced. Persist ent opacification throughout the right hemithorax and in the left lung base. New dense opacification in the left suprahilar region. Cardiomediastinal silhouette is grossly stable. Stable fracture of the superiormost sternotomy wire. CONCLUSION: 1. The right IJ central venous catheter remains directed cephalad, with distal tip beyond the superi or field of view. 2. Endotracheal tube with distal tip superior to the midclavicular heads, approximately 8.5 cm above the luz maria. This could be advanced. 3. Persistent opacification of the right hemithorax and left lung base, now with dense opacification in the left superhilar region. Electronically signed by: Laura Caceres MD 03/05/2018 7:25 AM EDT
--- NOTE | 2018-03-05 07:28 | XR ---
EXAM DATE: 03/05/2018 7:21 AM EDT AGE/SEX: 47 years / Male INDICATIONS: Post ET tube placement. CLINICAL DATA: This is the patient's subsequent encounter. Patient reports that signs and symptoms h ave been present for 1 day and indicates a pain score of Nonresponsive. MEDICAL/SURGICAL HISTORY: . Anemia, CVA, depression, diabetes, gastrostomy tube, hemiparesis, h emiplegia, hyperlipidemia, hypertension . None. COMPARISON: [facility] [place], CHEST 1V SINGLE AP, 03/05/2018. . FINDINGS: A single AP view of the chest demonstrates interval advancement of the endotracheal tube, now appropr iately positioned approximately 3.5 cm above the luz maria. The right IJ central venous catheter remains directed cephalad, with distal tip beyond the superior field of view. Hazy opacification throughout both lungs in a basilar predominance. Grossly stable cardiomediastinal silhouette. Stable fracture of the superiormost and on the wire. CONCLUSION: 1. Interval advancement of the endotracheal tube, now appropriately positioned 3.5 cm above the juliana na. 2. Right IJ central venous catheter remains directed cephalad. 3. Hazy opacification throughout both lungs in a basilar predominance. Electronically signed by: Laura Caceres MD 03/05/2018 7:27 AM EDT
[2018-03-05 07:55] LABS: ABG Base Excess -3.3 mmol/L (-2-2); ABG PCO2 83 mmHg (38-42); ABG PO2 99 mmHG (61-120)
[2018-03-05 08:15] LABS: Baso % (Auto) 0.3 % (0.0-2.0); Eos # (Auto) 0.1 th/mm3 (0.0-0.4); Eos % (Auto) 1.4 % (0.0-4.0); Hematocrit 23.4 % (39.0-51.0); Hemoglobin 7.1 gm/dL (13.0-17.0); Lymph # (Auto) 0.6 th/mm3 (1.0-4.8); Lymph % (Auto) 15.2 % (9.0-44.0); Mean Corpuscular Hemoglobin 30.3 pg (27.0-34.0); Mean Corpuscular Volume 100.5 fL (80.0-100.0); Mean Platelet Volume 9.7 fL (7.0-11.0); Mono # (Auto) 0.3 th/mm3 (0.0-0.9); Mono % (Auto) 9.4 % (0.0-8.0); Neut # (Auto) 2.7 th/mm3 (1.8-7.7); Neut % (Auto) 73.7 % (16.0-70.0); Platelet Count 139 th/mm3 (150-450); Red Blood Count 2.33 mil/mm3 (4.50-5.90); Red Cell Distribution Width 18.2 % (11.6-17.2); White Blood Count 3.7 th/mm3 (4.0-11.0)
--- NOTE | 2018-03-05 08:21 | P.PNIM ---
Subjective Interval history: Patient seen and examined this morning. Overnight acute event happened at 0630 , the patient had a CODE BLUE called on him. Early this morning became bradycardic and then went into asystole. CPR was performed for 20 minutes during which time patient was intubated by the onshore diver. Patient returned from asystole and currently is stable. The intensive this is now on board helping with management of this patient. Chest x-ray is concerning for aspiration pneumonia at this time. Physical Exam Vital signs: Vital Signs 03/04/18 09:09 03/04/18 10:00 03/04/18 12:00 Temperature Pulse Rate 87 87 Respiratory Rate Blood Pressure Pulse Oximetry 92 L 03/04/18 14:00 03/04/18 16:00 03/04/18 18:00 Temperature Pulse Rate 82 86 87 Respiratory Rate Blood Pressure Pulse Oximetry 03/04/18 20:00 03/04/18 22:00 03/05/18 00:00 Temperature 98.5 F 98.6 F Pulse Rate 86 74 76 Respiratory Rate 23 20 Blood Pressure 122/75 108/66 Pulse Oximetry 94 L 92 L 03/05/18 02:00 03/05/18 04:00 03/05/18 06:00 Temperature 98.9 F Pulse Rate 76 75 67 Respiratory Rate 22 Blood Pressure 96/58 L Pulse Oximetry 97 03/05/18 06:30 Temperature Pulse Rate Respiratory Rate 20 Blood Pressure Pulse Oximetry 100 Intake & Output 03/04/18 03/05/18 03/05/18 18:59 06:59 18:59 Intake Total 1880 / 1880 3440 / 3440 Output Total 600 / 600 Balance 1879 / 1879 2840 / 2840 Weight 92.3 kg Intake: IV 1000 / 1000 2650 / 2650 NS Inj 1,000 ML @ 100 mls/hr IV 1000 / 1000 2000 / 1999 .CONT .Q10H [facility] Rx#:[id number] Cubicin Inj 800 MG In NS Inj 100 / 100 100 ML @ 200 mls/hr IV.SIG Q24H [facility] Rx#:[id number] Levaquin 750 mg Premix Inj 150 150 / 150 ML @ 100 mls/hr IV.SIG Q24H [facility] Rx#:[id number] Zosyn 4.5 GM Premix 4.5 gm In 400 / 400 100 ml @ 200 mls/hr IV.SIG Q6H [facility] Rx#:[id number] Oral 0 / 0 0 / 0 Tube Feeding 590 / 590 600 / 600 Tube Irrigant 90 / 90 90 / 90 Water Bolus Amount 100 / 100 100 / 100 Other 100 / 100 Output: Urine 0 / 0 600 / 600 Stool 1 / 1 0 / 0 Urine/Stool Mix 0 / 0 0 / 0 Other: Other Intake Source Saline Solution # Voids 3 # Incontinent Voids 3 Date of Last Bowel Movement 03/02/18 03/02/18 # Bowel Movements 2 0 # Incontinent Bowel Movements 1 0 Narrative: GENERAL: WDWN male patient, INAD. Lying in bed nonresponsive. SKIN: Warm and dry. No generalized rash. Bilateral feet wrapped and in heel raiser boots bilaterally. HEENT: Atraumatic. Normocephalic. Pupils equal and round. No scleral icterus. No injection or drainage. No nasal bleeding or discharge. NECK: Trachea midline. Airway patent. CARDIOVASCULAR: Regular rate and rhythm. No murmur appreciated. RESPIRATORY: Noticeable accessory muscle use. Poor effort, decreased breath sounds in the lower ruiz bilaterally GASTROINTESTINAL: Abdomen soft, non-tender, nondistended. +PEG tube in place mid abdomen, site C/D/I MUSCULOSKELETAL: Extremities without clubbing, cyanosis. +spontaneous movement in RUE. LLE contracted. NEUROLOGICAL: Awake and alert. Unable to assess motor function, patient not following commands. Nonverbal. PSYCHIATRIC: Calm. Results - Labs CBC & Chem 7: 03/05/18 05:35 03/05/18 05:35 Laboratory Results - last 24 hr 03/04/18 03/04/18 03/04/18 09:46 12:39 17:00 WBC RBC Hgb Hct MCV MCH MCHC RDW Plt Count MPV Neut % (Auto) Lymph % (Auto) [place] % (Auto) Eos % (Auto) Baso % (Auto) Neut # (Auto) Lymph # (Auto) [place] # (Auto) Eos # (Auto) Baso # (Auto) WBC Differential Differential Comment Puncture Site Patient Temperature O2 Saturation ABG pH ABG pCO2 ABG pO2 ABG HCO3 ABG O2 Content ABG Base Excess ABG Methemoglobin Rodriguez Test Hemoglobin Carboxyhemoglobin O2 Delivery Device Vent Setting Inspired O2 Critical Value Sodium Potassium Chloride Carbon Dioxide Anion Gap BUN Creatinine Estimated GFR POC Glucose 161 H 202 H 195 H Random Glucose Calcium Total Creatine Kinase 03/04/18 03/04/18 03/05/18 18:16 20:11 05:35 WBC 4.3 RBC 2.44 L Hgb 7.5 L Hct 24.5 L MCV 100.6 H D MCH 30.6 MCHC 30.4 L RDW 18.0 H Plt Count 138 L MPV 9.8 Neut % (Auto) 69.6 Lymph % (Auto) 17.4 [place] % (Auto) 11.4 H Eos % (Auto) 1.3 Baso % (Auto) 0.3 Neut # (Auto) 3.0 Lymph # (Auto) 0.8 L [place] # (Auto) 0.5 Eos # (Auto) 0.1 Baso # (Auto) 0.0 WBC Differential . Differential Comment Auto diff final Puncture Site Patient Temperature O2 Saturation ABG pH ABG pCO2 ABG pO2 ABG HCO3 ABG O2 Content ABG Base Excess ABG Methemoglobin Rodriguez Test Hemoglobin Carboxyhemoglobin O2 Delivery Device Vent Setting Inspired O2 Critical Value Sodium Potassium Chloride Carbon Dioxide Anion Gap BUN Creatinine Estimated GFR POC Glucose 209 H Random Glucose Calcium Total Creatine Kinase 80 03/05/18 03/05/18 05:35 07:39 WBC RBC Hgb Hct MCV MCH MCHC RDW Plt Count MPV Neut % (Auto) Lymph % (Auto) [place] % (Auto) Eos % (Auto) Baso % (Auto) Neut # (Auto) Lymph # (Auto) [place] # (Auto) Eos # (Auto) Baso # (Auto) WBC Differential Differential Comment Puncture Site Left radial Patient Temperature 98.6 O2 Saturation 92 ABG pH 7.11 L* ABG pCO2 83 H* ABG pO2 99 ABG HCO3 25 ABG O2 Content 10.6 L ABG Base Excess -3.3 L ABG Methemoglobin 1.4 Rodriguez Test Present Hemoglobin 8.1 L Carboxyhemoglobin 2.5 O2 Delivery Device Vent Vent Setting Prvc/16/550/0.90/+5 Inspired O2 100 Critical Value Yes Sodium 153 H Potassium 6.1 H D Chloride 119 H Carbon Dioxide 28.3 Anion Gap 6 BUN 58 H Creatinine 1.68 H Estimated GFR 53 L POC Glucose Random Glucose 125 H Calcium 7.8 L Total Creatine Kinase Microbiology 03/03/18 19:53 Blood - Peripheral Aerobic Blood Culture - Preliminary No growth in 1 day 03/03/18 19:53 Blood - Peripheral Anaerobic Blood Culture - Preliminary No growth in 1 day - Imaging Impressions Chest X-Ray 03/05/18 00:00 CONCLUSION: 1. Interval advancement of the endotracheal tube, now appropriately positioned 3.5 cm above the luz maria. 2. Right IJ central venous catheter remains directed cephalad. 3. Hazy opacification throughout both lungs in a basilar predominance. Chest X-Ray 03/05/18 06:44 CONCLUSION: 1. The right IJ central venous catheter remains directed cephalad, with distal tip beyond the superior field of view. 2. Endotracheal tube with distal tip superior to the midclavicular heads, approximately 8.5 cm above the luz maria. This could be advanced. 3. Persistent opacification of the right hemithorax and left lung base, now with dense opacification in the left superhilar region. - Procedures s/p PICC line placement 02/22 Assessment and Plan - Assessment (1) Acute on chronic anemia Code(s): D64.9 - Anemia, unspecified Status: Acute (2) Anemia of chronic disorder Code(s): D63.8 - Anemia in other chronic diseases classified elsewhere Status : Acute (3) Pseudoaneurysm of brachial artery Code(s): I72.1 - Aneurysm of artery of upper extremity Status: Acute (4) Osteomyelitis Code(s): M86.9 - Osteomyelitis, unspecified Status: Acute (5) Diabetes Code(s): E11.9 - Type 2 diabetes mellitus without complications Status: Acute - Plan 47 year-old man with diabetes mellitus, hypertension, chronic anemia, chronic pain, 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 The patient had a CBC done as an outpatient and it showed a hemoglobin less than 7.0. 03/05 overnight CODE BLUE called on the patient. Became bradycardic then asystole. Required 20 minutes of CPR. Currently patient is nonresponsive. Pneumonia (worsening atelectasis versus healthcare associated pneumonia versus aspiration) -Status post chest x-ray concerning for consolidation in the lower lobes bilaterally. Concern for aspiration -Infectious disease following, her condition is appreciated -Consulted pulmonology -Consulted intensive -We will continue the patient's daptomycin and escalate antibiotics -Started levofloxacin -Started Zosyn -Respiratory therapy consult -Continue duo nebs Acute on chronic anemia Likely due to IV Vancomycin Patient was previously seen by hematology on December 24, 2017 and at the time his anemia was felt to be anemia of chronic inflammation due to decreased red blood cell production and functional iron deficiency. However that hospitalization there was no suspected underlying bone marrow disorder, and patient had no evidence to suggest iron deficiency, occult blood loss. He responded well to blood transfusion. Hgb 6.2 s/p transfusion 2units PRBCs. Likely 2/2 vancomycin. Hgb currently 8.6 will continue to monitor. iron studies indicative of anemia of chronic disease -GI following, no indication for GI procedures at this time secondary to recent GI workup and no obvious GI bleed. Recommend capsule endoscopy as outpatient. GI signed off. -Hematology consultation as needed -monitor H/H intermittently Pseudoaneurysm right brachial artery Doppler US neg for DVT but revealed a pseudoaneurysm which appears to emanate from the distal brachial artery measuring 3.6 x 2.2 by 2.2 cm. -Dr. Jensen consulted, appreciate assistance. No further intervention needed at this time. Patient able to have PICC line placed above antecubital fossa if needed. Chronic osteomyelitis, MRSA Bilateral foot wounds/ulcers -Stop vancomycin due to kidney injury -Continue on daptomycin to complete 6 weeks of antibiotics -Continue with wound care -Patient evaluated by Dr. Vu of podiatry, no surgical intervention needed at this time, appreciate recommendations -ID following, appreciate assistance. PICC line placed 02/22. MRI studies of bilateral feet shows osteo. -Podiatry following, appreciate assistance. ABIs normal bilaterally. Diarrhea, resolved -likely secondary to TF -monitor History of CVA with left-sided hemiparesis Dysphagia ok to resume TF per GI -Parachute Officer consulted, continue TF Glucerna 1.5 @ 65 mls/hr Diabetes mellitus -continue on accucheks and ISS -Blood sugars overall controlled -patient on Levemir 5u BID at home. Will continue to hold for now. Cover with sliding scale only. Hypertension/hyperlipidemia BP controlled at present -Continue on home antihypertensives Coreg, hydralazine, Norvasc and lisinopril. -Continue to monitor BP and adjust treatment accordingly -Continue on Lipitor Hyperkalemia, mild K 5.2 -Avoid potassium containing medication -repeat K level later today -Increased IV fluids to 100 cc/h Hypernatremia, mild Na 149 -Increase the rate of IV fluids at this time. We will continue to monitor. Seizure d/o -Continue on home dose of Keppra -seizure precautions -monitor for any seizure activity Psychiatric disorder/depression -Continue on home medications DVT prophylaxis: Bilateral SCDs, Heparin sq Code Status: Full code Discharge Planning: Discharge is pending ID clearance
[2018-03-05 08:24] LABS: Mean Corpuscular HGB Conc 30.2 % (32.0-36.0)
[2018-03-05 08:28] LABS: INR 1.3 Ratio; Prothrombin Time 12.7 sec (9.8-11.6)
[2018-03-05] MEDS: fentaNYL 10 mcg/mL Premix Drip 2,500 MCG/250 ML BAG IV.SIG PRN (08:30)
[2018-03-05 08:41] LABS: Alanine Aminotransferase 23 U/L (12-78); Albumin 2.2 g/dL (3.4-5.0); Anion Gap 6 meq/L (5-15); Aspartate Aminotransferase 21 U/L (15-37); Blood Urea Nitrogen 61 mg/dL (7-18); Calcium 8.1 mg/dL (8.5-10.1); Carbon Dioxide 29.7 meq/L (21.0-32.0); Chloride 120 meq/L (98-107); Glomerular Filtration Rate 51 mL/min (>89); Glucose,Random 157 mg/dL (74-106); Potassium 5.3 meq/L (3.5-5.1)
[2018-03-05 08:43] LABS: Sodium 156 meq/L (136-145)
[2018-03-05 08:44] LABS: Alkaline Phosphatase 107 U/L (45-117)
[2018-03-05] MEDS ORDERED: RASS Change Order OTHER ONE ×2 (09:00)
[2018-03-05] MEDS: Carvedilol 12.5 MG Tablet G-TUBE SCH (09:11)
[2018-03-05] MEDS: amLODIPine 10 MG Tablet G-TUBE SCH (09:12)
[2018-03-05] MEDS: Insulin NovoLOG Aspart Correctional Sugar Inj SQ SCH (09:24)
[2018-03-05] MEDS: levETIRAcetam 500 MG Tablet G-TUBE SCH ×3 (09:25→17:03)
[2018-03-05] MEDS: Senna/Docusate Sodium 8.6/50 MG Tablet G-TUBE SCH ×2 (09:25→21:14)
[2018-03-05] MEDS: Ascorbic Acid 500 MG Tablet G-TUBE SCH ×2 (09:25→21:14)
[2018-03-05] MEDS: Heparin - SQ 10,000 UNITS/ML Vial SQ SCH (09:25)
[2018-03-05] MEDS: Escitalopram 10 MG Tablet G-TUBE SCH (09:25)
[2018-03-05 09:33] LABS: Eosinophils 2 % (0-4); Lymphocytes 10 % (9-44); Metamyelocytes 1 % (0-1); Monocytes 6 % (0-8); Myelocytes 1 % (0-0)
[2018-03-05 09:34] LABS: Platelet Morphology Normal (Normal)
[2018-03-05] MEDS ORDERED: Dextrose 50% in Water 50 ML Vial IV.PUSH ONE (09:45)
[2018-03-05 10:35] LABS: ABG Base Excess -0.5 mmol/L (-2-2); ABG PCO2 56 mmHg (38-42); ABG PO2 69 mmHG (61-120)
[2018-03-05] MEDS: Dextrose 5% in Water Inj 1,000 ML IV.CONT SCH (11:41)
[2018-03-05] MEDS: Insulin NovoLIN Regular Correctional Sugar Inj SQ SCH ×3 (11:42→21:13)
[2018-03-05] MEDS ORDERED: Sodium Polystyrene Sulfonate/Sorbitol Liq 15 GM/60 ML UDC PO ONE (12:00)
--- NOTE | 2018-03-05 12:07 | MB ---
cc: Campbell Mcfarland MD DATE: 03/05/2018 HISTORY OF PRESENT ILLNESS: The patient is a 47-year-old male with a past medical history of a CVA with left-sided hemiparesis, hypertension, diabetes mellitus, anemia of chronic disease, CHF, dysphagia, status post PEG tube placement, depression, nonverbal, who was admitted under the hospitalist service on 02/17/2018 for acute on chronic anemia. In addition, the patient has a history of bilateral foot osteomyelitis. During his hospital course, he had worsening renal function with a creatinine of 1.74 this morning from 1.1 on admission. In addition, the patient was found hypernatremic with a sodium level of 156 and hyperkalemic with a potassium level 5.3. A halicat was called 2 days ago for shortness of breath, and this morning the patient had a PEA arrest. ACLS protocol was initiated and the patient received epinephrine x3, 2 amps of bicarbonate, and 1 amp of calcium and was subsequently intubated by myself with an ET tube 8.0 cm size. A chest x-ray post intubation showed diffuse bilateral pulmonary infiltrates. He was on NS at 100 mL an hour for the past 2 days. Also, he had a venous Doppler ultrasound on 02/18/2018, which showed no evidence of a DVT; however, it showed a pseudoaneurysm at the distal brachial artery measuring 3.6 x 2.2 x 2.2 cm, predominantly thrombosed; however, there was a small patent component with biphasic flow measuring 6 x 9 mm. A single lumen right PICC line was placed by interventional radiology on 02/22/2018. The patient also had an arterial Doppler ultrasound which was within normal. He was seen by Dr. Jensen from vascular surgery. In addition, the patient has been followed by podiatry and infectious disease. ABG postcode showed acute hypercapnic respiratory acidosis with a pH of 7.11, CO2 of 83, PaO2 of 99, bicarbonate 25, saturation 92% on PRVC mode, rate of 16, tidal volume 500, PEEP of 5, 100% FiO2, and I time 0.9. PAST MEDICAL HISTORY: Significant for CVA with left-sided hemiparesis, hypertension, depression, anemia, diabetes mellitus, hyperlipidemia. PAST SURGICAL HISTORY: Previous PEG tube placement. ALLERGIES: NO KNOWN DRUG ALLERGIES. FAMILY HISTORY: Noncontributory to present illness. SOCIAL HISTORY: Unknown. REVIEW OF SYSTEMS: Unobtainable. ACTIVE MEDICATIONS: Include: 1. Amlodipine. 2. Vitamin C. 3. Lipitor. 4. Coreg. 5. Insulin. 6. Lisinopril. PHYSICAL EXAMINATION: GENERAL: A 47-year-old male status post PEA arrest. VITAL SIGNS: Temperature 98.9, pulse of 67, blood pressure 108/66, saturation 94%. HEENT: Atraumatic, normocephalic. Pupils are equal, round, reactive to light and accommodation. Extraocular muscles intact. Conjunctivae pink. Nonicteric sclerae. Oral mucosa within normal. NECK: Supple. No JVD, adenopathy, or thyromegaly. Trachea midline. Orally intubated. CARDIOVASCULAR: Regular rate and rhythm. Normal S1, S2. No murmurs, rubs or gallops noted. PULMONARY: Bilateral equal air entry with coarse breath sounds. ABDOMEN: Soft, nontender, nondistended, positive bowel sounds. PEG tube in place. EXTREMITIES: No cyanosis, clubbing, edema. NEUROLOGIC: Intubated, History of left-sided hemiparesis. LABORATORY DATA: WBC 3.7, hemoglobin 7.1, hematocrit 23, platelet count of 139. Sodium 156, potassium 5.3, chloride 120, CO2 29, BUN 61, creatinine 1.74, glucose of 157, calcium 8.1. ABG showed a pH of 7.11, CO2 of 83, PaO2 99, bicarbonate 25, saturation 92%. RADIOGRAPHIC STUDIES: A chest x-ray showed diffuse bilateral pulmonary infiltrates, ET tube 3.5 cm above the luz maria, right upper extremity PICC line in cephalad position. IMPRESSION: 1. Acute hypoxemic and hypercapnic respiratory failure. 2. Status post pulseless electrical activity arrest, likely secondary to respiratory acidosis. 3. Diffuse bilateral pulmonary infiltrates, differential diagnosis aspiration pneumonia and fluid overload. 4. Hypertension. 5. Acute kidney injury. 6. History of cerebrovascular accident with left-sided hemiparesis. 7. Hyperkalemia. 8. Pseudoaneurysm of the right distal brachial artery measuring 3.6 x 2.2 x 2.2 cm. 9. Bilateral foot osteomyelitis methicillin-resistant Staphylococcus aureus. RECOMMENDATIONS: 1. Place on fentanyl infusion if needed for sedation and monitor neurologic status closely. 2. Continue with ventilatory support and maintain saturations above 92%. 3. Bronchodilators in the from of DuoNeb every 6 hours and will initiate ICU ventilatory bundle. Increase respiratory rate to 20, tidal volume to 600 and will repeat ABG. 4. Monitor heart rate and blood pressure closely and maintain MAP greater than 65 mmHg. 5. Hold antihypertensive medications for now. Will obtain CKs with troponins and 2D echo to evaluate LV function. 6. Check lactic acid level. 7. Monitor renal function, I's and O's and avoid nephrotoxins. Treat hyperkalemia with 7 units of IV insulin, 1 amp of D50, and will give Kayexalate 3 grams p.o. x1. The patient received 2 amps of bicarbonate during the code. We will repeat BMP in 2 hours. 8. Diurese with Lasix 40 mg IV push and gentle IV hydration. We will place on D5W at 50 mL an hour and discontinue normal saline. Monitor sodium level. 9. Place on free water 300 mL every 6 hours via PEG tube. 10. Keep n.p.o. for now and continue with Prevacid 30 mg daily. 11. The patient is on Keppra 500 mg t.i.d. for a history of seizures. 12. Continue with the broad-spectrum antibiotics per ID. He is currently on Levaquin, Zosyn, and daptomycin. Monitor CKs. 13. Monitor CBC and coagulation studies. 14. Follow up on blood cultures. In addition, we will obtain a sputum culture with Gram stain and urinalysis with culture if indicated. 15. Sliding scale insulin with Accu-Cheks for glycemic control. 16. The patient has a right upper extremity single lumen PICC line placed on 02/22/2018 by radiology which appears in cephalad position. We will discontinue the PICC line and place peripheral IVs. Place central line if indicated. 5. Further recommendations will be based on hospital course. MD PATRICIA Hernández/chris/tao , 10:37 AM , 10:57 AM
[2018-03-05 12:32] LABS: Bacteria,Urine Moderate /hpf; Bilirubin,Urine Negative (Negative); Clarity,Urine Cloudy (Clear); Color,Urine Yellow (Yellw/Straw); Glucose,Urine (UA) Negative (Negative); Leukocyte Esterase,Urine Small (Negative); Mucus,Urine Few /lpf (Occasional); Nitrite,Urine Negative (Negative); Squamous Epithelial Cell,Urine 4 /hpf (0-5)
[2018-03-05 14:36] LABS: Baso % (Auto) 0.2 % (0.0-2.0); Eos % (Auto) 0.4 % (0.0-4.0); Lymph # (Auto) 0.3 th/mm3 (1.0-4.8); Lymph % (Auto) 9.6 % (9.0-44.0); Mean Corpuscular Hemoglobin 29.8 pg (27.0-34.0); Mean Corpuscular Volume 97.7 fL (80.0-100.0); Mean Platelet Volume 9.4 fL (7.0-11.0); Mono # (Auto) 0.4 th/mm3 (0.0-0.9); Mono % (Auto) 11.6 % (0.0-8.0); Neut # (Auto) 2.4 th/mm3 (1.8-7.7); Neut % (Auto) 78.2 % (16.0-70.0); Platelet Count 134 th/mm3 (150-450); Red Blood Count 2.32 mil/mm3 (4.50-5.90); Red Cell Distribution Width 17.9 % (11.6-17.2); White Blood Count 3.1 th/mm3 (4.0-11.0)
[2018-03-05 14:38] LABS: Mean Corpuscular HGB Conc 30.5 % (32.0-36.0)
[2018-03-05 14:40] LABS: Hemoglobin 6.9 gm/dL (13.0-17.0)
[2018-03-05 14:41] LABS: Hematocrit 22.7 % (39.0-51.0)
[2018-03-05] MEDS: DAPTOmycin Inj 800 MG in Sodium Chlor 0.9% Inj 100 ML IV.SIG SCH (14:53)
[2018-03-05 15:04] LABS: Calcium 8.3 mg/dL (8.5-10.1); Carbon Dioxide 27.8 meq/L (21.0-32.0); Potassium 4.6 meq/L (3.5-5.1)
--- NOTE | 2018-03-05 15:11 | P.PNID ---
Subjective Remarks: events noted pt coded this am (bradicardia), resp distress intubated, on 100% FiO2 not on pressors New infiltrates on CXR with all R hemithorax LLL opacification afebrile zosyn started Antibiotics: zosyn daptomycin Allergies/Adverse Reactions: Allergies No Known Allergies Allergy (Unknown, Uncoded 01/06/18 21:04) Objective Vital Signs 03/04/18 16:00 03/04/18 18:00 03/04/18 20:00 Temperature 98.5 F Pulse Rate 86 87 86 Respiratory Rate 23 Blood Pressure 122/75 Pulse Oximetry 94 L 03/04/18 22:00 03/05/18 00:00 03/05/18 01:00 Temperature 98.6 F Pulse Rate 74 76 75 Respiratory Rate 20 23 Blood Pressure 108/66 110/69 Pulse Oximetry 92 L 93 L 03/05/18 02:00 03/05/18 03:00 03/05/18 04:00 Temperature 98.9 F Pulse Rate 76 76 75 Respiratory Rate 24 23 22 Blood Pressure 107/70 111/59 L 96/58 L Pulse Oximetry 90 L 84 L 79 L 03/05/18 05:00 03/05/18 06:00 03/05/18 06:12 Temperature Pulse Rate 70 67 65 Respiratory Rate 21 0 L 0 L Blood Pressure 87/51 L 80/51 L 78/50 L Pulse Oximetry 84 L 78 L 81 L 03/05/18 06:13 03/05/18 06:30 03/05/18 06:43 Temperature Pulse Rate 65 110 H Respiratory Rate 0 L 20 Blood Pressure 79/51 L 235/125 H Pulse Oximetry 80 L 100 03/05/18 06:58 03/05/18 07:00 03/05/18 07:30 Temperature Pulse Rate 76 75 75 Respiratory Rate 0 L 0 L 22 Blood Pressure 88/51 L 84/53 L 107/66 Pulse Oximetry 96 03/05/18 07:40 03/05/18 07:45 03/05/18 08:00 Temperature 93.5 F L Pulse Rate 74 74 74 Respiratory Rate 22 25 H 23 Blood Pressure 97/60 L 99/62 L 89/51 L Pulse Oximetry 96 96 94 L 03/05/18 08:15 03/05/18 08:30 03/05/18 08:45 Temperature Pulse Rate 72 73 75 Respiratory Rate 20 22 23 Blood Pressure 81/53 L 88/58 L 99/61 L Pulse Oximetry 95 92 L 92 L 03/05/18 09:00 03/05/18 09:15 03/05/18 09:30 Temperature Pulse Rate 74 73 72 Respiratory Rate 23 23 17 Blood Pressure 104/57 L 102/64 106/58 L Pulse Oximetry 92 L 92 L 94 L 03/05/18 09:44 03/05/18 09:46 03/05/18 10:00 Temperature 93.4 F L Pulse Rate 73 72 Respiratory Rate 21 20 20 Blood Pressure 100/60 95/66 L Pulse Oximetry 94 L 94 L 94 L 03/05/18 10:15 03/05/18 10:30 03/05/18 12:02 Temperature 93.4 F L 93.6 F L Pulse Rate 74 73 Respiratory Rate 20 20 20 Blood Pressure 96/65 L 94/61 L Pulse Oximetry 98 97 99 Intake & Output 03/04/18 03/05/18 03/05/18 18:59 06:59 18:59 Intake Total 1880 / 1880 3440 / 3440 936 / 936 Output Total 1 / 600 / 600 Balance 1879 / 1879 2840 / 2840 936 / 936 Weight 92.3 kg Intake: IV 1000 / 1000 2650 / 2650 936 / 936 NS Inj 1,000 ML @ 100 mls/hr IV 1000 / 1000 1999 / 1999 686 / 686 .CONT .Q10H [facility] Rx#:[id number] Cubicin Inj 800 MG In NS Inj 100 / 100 100 ML @ 200 mls/hr IV.SIG Q24H [facility] Rx#:[id number] Levaquin 750 mg Premix Inj 150 150 / 150 150 / 150 ML @ 100 mls/hr IV.SIG Q24H [facility] Rx#:[id number] Zosyn 4.5 GM Premix 4.5 gm In 400 / 400 100 / 100 100 ml @ 200 mls/hr IV.SIG Q6H [facility] Rx#:[id number] Oral 0 / 0 0 / 0 Tube Feeding 590 / 590 600 / 600 Tube Irrigant 90 / 90 90 / 90 Water Bolus Amount 100 / 100 100 / 100 Other 100 / 100 Output: Urine 0 / 0 600 / 600 Stool 1 / 1 0 / 0 Urine/Stool Mix 0 / 0 0 / 0 Other: Other Intake Source Saline Solution # Voids 3 # Incontinent Voids 3 Date of Last Bowel Movement 03/02/18 03/02/18 03/05/18 # Bowel Movements 2 0 # Incontinent Bowel Movements 1 0 03/05/18 08:00 Sputum - Endotracheal Gram Stain - Pending 03/05/18 08:00 Sputum - Endotracheal Sputum Culture - Pending 03/05/18 14:00 Stool Occult Blood - Pending 03/05/18 11:25 Clean Catch Urine Urine Culture - Pending 03/03/18 19:53 Blood - Peripheral Aerobic Blood Culture - Preliminary No growth in 2 days 03/03/18 19:53 Blood - Peripheral Anaerobic Blood Culture - Preliminary No growth in 2 days Lab - Hematology Results 03/04/18 03/05/18 03/05/18 05:26 05:35 07:53 WBC 3.9 L 4.3 3.7 L RBC 2.50 L 2.44 L 2.33 L Hgb 7.7 L 7.5 L 7.1 L Hct 24.2 L 24.5 L 23.4 L MCV 96.9 100.6 H D 100.5 H MCH 31.0 30.6 30.3 MCHC 32.0 30.4 L 30.2 L RDW 17.7 H 18.0 H 18.2 H Plt Count 152 138 L 139 L MPV 10.1 9.8 9.7 Prelim Diff (Auto) Slide review pending Neut % (Auto) 69.6 73.7 H Lymph % (Auto) 17.4 15.2 Beadle % (Auto) 11.4 H 9.4 H Eos % (Auto) 1.3 1.4 Baso % (Auto) 0.3 0.3 Neut # (Auto) 3.0 2.7 Lymph # (Auto) 0.8 L 0.6 L Beadle # (Auto) 0.5 0.3 Eos # (Auto) 0.1 0.1 Baso # (Auto) 0.0 0.0 WBC Differential . Manual diff final Seg Neuts % (Manual) 69 Band Neuts % (Manual) 11 H Lymphocytes % (Manual) 10 Monocytes % (Manual) 6 Eosinophils % (Manual) 2 Metamyelocytes % (Man) 1 Myelocytes % (Man) 1 H Abs Neuts (Manual) 3.0 Differential Comment Auto diff final . Platelet Estimate Low L Platelet Morphology Normal 03/05/18 13:58 WBC 3.1 L RBC 2.32 L Hgb 6.9 L* Hct 22.7 L MCV 97.7 MCH 29.8 MCHC 30.5 L RDW 17.9 H Plt Count 134 L MPV 9.4 Prelim Diff (Auto) Slide review pending Neut % (Auto) 78.2 H Lymph % (Auto) 9.6 Beadle % (Auto) 11.6 H Eos % (Auto) 0.4 Baso % (Auto) 0.2 Neut # (Auto) 2.4 Lymph # (Auto) 0.3 L Beadle # (Auto) 0.4 Eos # (Auto) 0.0 Baso # (Auto) 0.0 WBC Differential Seg Neuts % (Manual) Band Neuts % (Manual) Lymphocytes % (Manual) Monocytes % (Manual) Eosinophils % (Manual) Metamyelocytes % (Man) Myelocytes % (Man) Abs Neuts (Manual) Differential Comment . Platelet Estimate Platelet Morphology Lab - Chemistry Results 03/03/18 03/04/18 03/04/18 21:30 05:26 09:46 Sodium 152 H Potassium 4.9 Chloride 118 H Carbon Dioxide 27.4 Anion Gap 7 BUN 51 H Creatinine 1.36 H Estimated GFR 68 L POC Glucose 130 H 161 H Random Glucose 97 D Lactic Acid Calcium 8.3 L Total Bilirubin 0.4 AST 23 ALT 22 Alkaline Phosphatase 128 H Total Creatine Kinase Troponin I Total Protein 8.1 D Albumin 2.9 L 03/04/18 03/04/18 03/04/18 12:39 17:00 18:16 Sodium Potassium Chloride Carbon Dioxide Anion Gap BUN Creatinine Estimated GFR POC Glucose 202 H 195 H Random Glucose Lactic Acid Calcium Total Bilirubin AST ALT Alkaline Phosphatase Total Creatine Kinase 80 Troponin I Total Protein Albumin 03/04/18 03/05/18 03/05/18 20:11 05:35 07:53 Sodium 153 H 156 H* Potassium 6.1 H D 5.3 H D Chloride 119 H 120 H Carbon Dioxide 28.3 29.7 Anion Gap 6 6 BUN 58 H 61 H Creatinine 1.68 H 1.74 H Estimated GFR 53 L 51 L POC Glucose 209 H Random Glucose 125 H 157 H Lactic Acid Calcium 7.8 L 8.1 L Total Bilirubin 0.5 AST 21 ALT 23 Alkaline Phosphatase 107 Total Creatine Kinase Troponin I Total Protein 7.0 D Albumin 2.2 L D 03/05/18 03/05/18 03/05/18 09:24 09:59 09:59 Sodium Potassium Chloride Carbon Dioxide Anion Gap BUN Creatinine Estimated GFR POC Glucose 152 H Random Glucose Lactic Acid Calcium Total Bilirubin AST ALT Alkaline Phosphatase Total Creatine Kinase 91 Troponin I 0.08 H Total Protein Albumin 03/05/18 03/05/18 09:59 11:42 Sodium Potassium Chloride Carbon Dioxide Anion Gap BUN Creatinine Estimated GFR POC Glucose 144 H Random Glucose Lactic Acid 1.0 Calcium Total Bilirubin AST ALT Alkaline Phosphatase Total Creatine Kinase Troponin I Total Protein Albumin Imaging: ITS Impressions Abdomen/Pelvis CT 02/17/18 00:00 CONCLUSION: 1. Small bilateral pleural effusions and bilateral lower lung opacity again seen. 2. Mild splenomegaly again seen. 3. Gastrostomy tube in place. 4. No evidence of bowel dilatation. 5. Heterotopic ossification about the left hip again seen. 6. Calcified adrenal glands again seen. 7. Enlarged inguinal lymph nodes again seen. Venous Doppler Study 02/18/18 00:00 CONCLUSION: 1. No DVT or SVT. 2. 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 This measures 3.6 x 2.2 x 2.2 cm and is predominantly thrombosed with a small, 6 x 9 mm patent component showing biphasic flow. Central Venous Line 02/22/18 00:00 CONCLUSION: 1. Uncomplicated tunneled central venous Power PICC line placement. 2. The PICC line can be used immediately. Foot MRI 02/22/18 00:00 CONCLUSION: 1. Findings most characteristic of early osteomyelitis at the medial aspect of the first metatarsal head and a tiny focus of probable osteomyelitis at the medial corner of the proximal phalanx great toe. Mild surrounding cellulitis. 2. Previous partial amputation fifth metatarsal. Extremity Arterial Study 02/26/18 00:00 CONCLUSION: 1. Normal ABIs bilaterally. Chest X-Ray 03/05/18 06:44 CONCLUSION: 1. The right IJ central venous catheter remains directed cephalad, with distal tip beyond the superior field of view. 2. Endotracheal tube with distal tip superior to the midclavicular heads, approximately 8.5 cm above the luz maria. This could be advanced. 3. Persistent opacification of the right hemithorax and left lung base, now with dense opacification in the left superhilar region. Physical Exam: GENERAL: NAD SKIN: Warm and dry. HEAD: Atraumatic. Normocephalic. EYES: Pupils equal and round. No scleral icterus. No injection or drainage. ENT: No nasal bleeding or discharge. Mucous membranes pink and moist. CARDIOVASCULAR: Regular rate and rhythm. RESPIRATORY: No accessory muscle use. rhonchi to auscultation. Breath sounds equal bilaterally. GASTROINTESTINAL: Abdomen soft, non-tender, nondistended. Hepatic and splenic margins not palpable. PEG in place Incontinent of brown liquid stool MUSCULOSKELETAL: Extremities without clubbing, cyanosis, or edema. No obvious deformities. B/l feet with dressings in place + prominent edema NEUROLOGICAL: Awake and alert. No obvious cranial nerve deficits. L side hemiplegia PSYCHIATRIC: Appropriate mood and affect; insight and judgment normal. Assessment and Plan - Plan B/L foot osteomyelitis MRSA, on vancomycin - trough level too high Anemia likely 2/2 vanco Mild CEDRIC, likely 2/2 vanco - pt has 2 adverse effects from vancomycin so far, I will recommend to avoid vancomycin New PNA ? aspioration New acute VDRF Hypotensive ? sepsis Critical unstable check blood clx check sptum clx dc daptomycin; start zyvox cont zosyn CBC c.diff dw Dr Naya lin RN
[2018-03-05] MEDS ORDERED: Heparin Central Flush 100 UNIT/ML 5 ML Vial IV.FLUSH ONE (15:53)
[2018-03-05] MEDS ORDERED: Lidocaine 1%/Epinephrine 1:100,000 Inj 20 ML Vial ONE (15:53)
[2018-03-05 15:57] LABS: Eosinophils 1 % (0-4); Lymphocytes 17 % (9-44); Monocytes 7 % (0-8)
[2018-03-05 15:58] LABS: Basophilic Stippling Heavy
[2018-03-05 15:59] LABS: Ovalocytes 1+
--- NOTE | 2018-03-05 16:59 | CT ---
EXAM DATE: 03/05/2018 4:51 PM EDT AGE/SEX: 47 years / Male INDICATIONS: Shortness of breath. CLINICAL DATA: This is the patient's initial encounter. Patient reports that signs and symptoms have been present for 1 day and indicates a pain score of Nonresponsive. MEDICAL/SURGICAL HISTORY: Anemia. Cerebrovascular disease. Hypertension. Diabetes. . G tube. RADIATION DOSE: 13.39 CTDI (mGy) COMPARISON: C, CHEST 1V SINGLE AP, 03/05/2018. . TECHNIQUE: Multiple contiguous axial images were obtained through the chest without contrast. Image s were obtained in suspended respiration using multiple row detector helical technique. Using automa hellen exposure control and adjustment of the mA and/or kV according to patient size, radiation dose was kept as low as reasonably achievable to obtain optimal diagnostic quality images. DICOM format imag e data is available electronically for review and comparison. FINDINGS: There are diffuse bilateral areas of parenchymal consolidation greatest in the lower lobes with air b ronchogram formation seen. Endotracheal tube is noted and the tip terminates 3 cm above the luz maria. A right jugular line tip terminates in the SVC/right atrial region. There are bilateral effusions, rig ht greater than left. There are bilateral coarse adrenal calcification suggesting sequelae of previou s adrenal hemorrhage. CONCLUSION: 1. Bilateral effusions and diffuse bilateral consolidation. Electronically signed by: Mike Tee MD 03/05/2018 4:57 PM EDT
--- NOTE | 2018-03-05 18:47 | P.PNPL ---
Subjective Interval history: 47 YO AA male with CVA,DM, Bilat infilt, pl eff Coded This AM On Vent, fi02 80% On Fentanyl Opens eyes Physical Exam Vital signs: Vital Signs 03/04/18 20:00 03/04/18 22:00 03/05/18 00:00 Temperature 98.5 F 98.6 F Pulse Rate 86 74 76 Respiratory Rate 23 20 Blood Pressure 122/75 108/66 Pulse Oximetry 94 L 92 L 03/05/18 01:00 03/05/18 02:00 03/05/18 03:00 Temperature Pulse Rate 75 76 76 Respiratory Rate 23 24 23 Blood Pressure 110/69 107/70 111/59 L Pulse Oximetry 93 L 90 L 84 L 03/05/18 04:00 03/05/18 05:00 03/05/18 06:00 Temperature 98.9 F Pulse Rate 75 70 67 Respiratory Rate 22 21 0 L Blood Pressure 96/58 L 87/51 L 80/51 L Pulse Oximetry 79 L 84 L 78 L 03/05/18 06:12 03/05/18 06:13 03/05/18 06:30 Temperature Pulse Rate 65 65 Respiratory Rate 0 L 0 L 20 Blood Pressure 78/50 L 79/51 L Pulse Oximetry 81 L 80 L 100 03/05/18 06:43 03/05/18 06:58 03/05/18 07:00 Temperature Pulse Rate 110 H 76 75 Respiratory Rate 0 L 0 L Blood Pressure 235/125 H 88/51 L 84/53 L Pulse Oximetry 03/05/18 07:30 03/05/18 07:40 03/05/18 07:45 Temperature Pulse Rate 75 74 74 Respiratory Rate 22 22 25 H Blood Pressure 107/66 97/60 L 99/62 L Pulse Oximetry 96 96 96 03/05/18 08:00 03/05/18 08:15 03/05/18 08:30 Temperature 93.5 F L Pulse Rate 74 72 73 Respiratory Rate 23 20 22 Blood Pressure 89/51 L 81/53 L 88/58 L Pulse Oximetry 94 L 95 92 L 03/05/18 08:45 03/05/18 09:00 03/05/18 09:15 Temperature Pulse Rate 75 74 73 Respiratory Rate 23 23 23 Blood Pressure 99/61 L 104/57 L 102/64 Pulse Oximetry 92 L 92 L 92 L 03/05/18 09:30 03/05/18 09:44 03/05/18 09:46 Temperature Pulse Rate 72 73 Respiratory Rate 17 21 20 Blood Pressure 106/58 L 100/60 Pulse Oximetry 94 L 94 L 94 L 03/05/18 10:00 03/05/18 10:15 03/05/18 10:30 Temperature 93.4 F L 93.4 F L 93.6 F L Pulse Rate 72 74 73 Respiratory Rate 20 20 20 Blood Pressure 95/66 L 96/65 L 94/61 L Pulse Oximetry 94 L 98 97 03/05/18 12:00 03/05/18 12:02 03/05/18 12:30 Temperature Pulse Rate 74 Respiratory Rate 20 Blood Pressure 97/63 L Pulse Oximetry 99 03/05/18 12:45 03/05/18 13:00 03/05/18 13:15 Temperature 94.5 F L 94.8 F L 95.0 F L Pulse Rate 75 75 75 Respiratory Rate 20 20 18 Blood Pressure 97/60 L 98/63 L 95/65 L Pulse Oximetry 100 100 100 03/05/18 13:30 03/05/18 13:45 03/05/18 14:00 Temperature 95.2 F L 95.2 F L 95.5 F L Pulse Rate 75 78 79 Respiratory Rate 20 20 20 Blood Pressure 95/63 L 96/60 L Pulse Oximetry 99 97 03/05/18 14:08 03/05/18 14:15 03/05/18 14:30 Temperature 95.5 F L 95.5 F L 95.7 F L Pulse Rate 79 79 79 Respiratory Rate 20 20 20 Blood Pressure 101/63 99/63 L 98/64 L Pulse Oximetry 99 98 97 03/05/18 14:45 03/05/18 14:51 03/05/18 15:00 Temperature Pulse Rate 83 80 80 Respiratory Rate 20 20 16 Blood Pressure 115/83 107/71 97/61 L Pulse Oximetry 97 99 97 03/05/18 15:15 03/05/18 15:30 03/05/18 15:45 Temperature Pulse Rate 80 84 86 Respiratory Rate 20 16 28 H Blood Pressure 101/66 100/68 96/70 L Pulse Oximetry 97 90 L 95 03/05/18 15:57 03/05/18 16:00 03/05/18 16:15 Temperature 98.2 F Pulse Rate 85 85 87 Respiratory Rate 23 20 21 Blood Pressure 107/67 110/71 112/74 Pulse Oximetry 97 98 98 03/05/18 16:30 03/05/18 16:45 03/05/18 16:49 Temperature Pulse Rate 89 90 88 Respiratory Rate 25 H 35 H 20 Blood Pressure 109/73 106/67 105/64 Pulse Oximetry 98 87 L 98 03/05/18 17:00 03/05/18 17:15 03/05/18 17:30 Temperature Pulse Rate 91 H 86 83 Respiratory Rate 19 9 L 11 L Blood Pressure 117/62 127/66 102/57 L Pulse Oximetry 97 96 95 03/05/18 17:45 03/05/18 18:00 03/05/18 18:23 Temperature Pulse Rate 82 83 Respiratory Rate 17 Blood Pressure 106/62 Pulse Oximetry 95 100 Intake & Output 03/04/18 03/05/18 03/05/18 18:59 06:59 18:59 Intake Total 1880 / 1880 3440 / 3440 1536 / 1536 Output Total 1 / 600 / 600 800 / 800 Balance 1879 / 1879 2840 / 2840 736 / 736 Weight 92.3 kg Intake: IV 1000 / 1000 2650 / 2650 936 / 936 NS Inj 1,000 ML @ 100 mls/hr IV 1000 / 1000 1999 / 1999 686 / 686 .CONT .Q10H [facility] Rx#:[id number] Cubicin Inj 800 MG In NS Inj 100 / 100 100 ML @ 200 mls/hr IV.SIG Q24H [facility] Rx#:[id number] Levaquin 750 mg Premix Inj 150 150 / 150 150 / 150 ML @ 100 mls/hr IV.SIG Q24H [facility] Rx#:[id number] Zosyn 4.5 GM Premix 4.5 gm In 400 / 400 100 / 100 100 ml @ 200 mls/hr IV.SIG Q6H [facility] Rx#:[id number] Oral 0 / 0 0 / 0 Tube Feeding 590 / 590 600 / 600 Tube Irrigant 90 / 90 90 / 90 Water Bolus Amount 100 / 100 100 / 100 600 / 600 Other 100 / 100 Output: Urine 0 / 0 600 / 600 Stool 1 / 1 0 / 0 Urine/Stool Mix 0 / 0 0 / 0 Urine Amount (Catheter) 800 / 800 Indwelling Urethral Catheter 800 / 800 Other: Other Intake Source Saline Solution # Voids 3 # Incontinent Voids 3 Date of Last Bowel Movement 03/02/18 03/02/18 03/05/18 # Bowel Movements 2 0 2 # Incontinent Bowel Movements 1 0 GENERAL: WBWN, on Vent, sedated SKIN: Warm and dry. HEAD: Normocephalic. EYES: No scleral icterus. No injection or drainage. NECK: Supple, trachea midline. No JVD or lymphadenopathy. CARDIOVASCULAR: Regular rate and rhythm without murmurs, gallops, or rubs. RESPIRATORY: Breath sounds equal bilaterally. No accessory muscle use. GASTROINTESTINAL: Abdomen soft, non-tender, nondistended. PEG tube MUSCULOSKELETAL: No cyanosis, or edema. BACK: Nontender without obvious deformity. No CVA tenderness. - Urinary Catheter Management Indwelling Urethral Catheter Cath placed during this visit: yes Reason for continuing: Acute urinary retention Insertion date: 03/05/18 Insertion time: 08:00 Assessment and Plan - Plan IMPRESSION: 1. Bilateral lung infiltrates. 2. Small pleural effusion. 3. Osteomyelitis of both feet. 4. Diabetes mellitus. 5. Cerebrovascular accident with left-sided contracture. 6. VDRF 7. S/P cardiopulm arrest. PLAN: Vent Support sedation with Fentanyl Cont Abx Aerosol nebs monitor Pl eff
[2018-03-05] MEDS ORDERED: Midazolam 50 MG/50 ML Inj 50 MG/50 ML BAG IV.CONT PRN (23:44)
[2018-03-06] MEDS: Insulin NovoLIN Regular Correctional Sugar Inj SQ SCH ×6 (02:09→21:36)
[2018-03-06] MEDS: Dextrose 5% in Water Inj 1,000 ML IV.CONT SCH ×2 (02:13→08:06)
[2018-03-06] MEDS: fentaNYL 10 mcg/mL Premix Drip 2,500 MCG/250 ML BAG IV.SIG PRN ×2 (03:15→17:11)
[2018-03-06 05:06] LABS: Baso % (Auto) 0.4 % (0.0-2.0); Eos % (Auto) 0.4 % (0.0-4.0); Hematocrit 23.2 % (39.0-51.0); Hemoglobin 7.9 gm/dL (13.0-17.0); Lymph # (Auto) 0.7 th/mm3 (1.0-4.8); Lymph % (Auto) 10.2 % (9.0-44.0); Mean Corpuscular Hemoglobin 31.1 pg (27.0-34.0); Mean Corpuscular Volume 91.5 fL (80.0-100.0); Mono # (Auto) 0.6 th/mm3 (0.0-0.9); Mono % (Auto) 9.1 % (0.0-8.0); Neut # (Auto) 5.7 th/mm3 (1.8-7.7); Neut % (Auto) 79.9 % (16.0-70.0); Platelet Count 127 th/mm3 (150-450); Red Blood Count 2.53 mil/mm3 (4.50-5.90); Red Cell Distribution Width 17.1 % (11.6-17.2); White Blood Count 7.1 th/mm3 (4.0-11.0)
[2018-03-06] MEDS: Chlorhexidine Gluconate 2% 1 Pack (2 Cloths) TOPICAL SCH (05:12)
[2018-03-06] MEDS: Piperacil/Tazo 4.5 GM Premix 4.5 GM/100 ML BAG IV.SIG SCH ×4 (05:13→22:12)
[2018-03-06 05:47] LABS: Albumin 2.2 g/dL (3.4-5.0); Anion Gap 8 meq/L (5-15); Blood Urea Nitrogen 61 mg/dL (7-18); Calcium 7.9 mg/dL (8.5-10.1); Carbon Dioxide 27.8 meq/L (21.0-32.0); Chloride 116 meq/L (98-107); Glomerular Filtration Rate 45 mL/min (>89); Glucose,Random 77 mg/dL (74-106); Potassium 3.9 meq/L (3.5-5.1); Sodium 152 meq/L (136-145)
[2018-03-06 05:49] LABS: Alanine Aminotransferase 24 U/L (12-78); Aspartate Aminotransferase 34 U/L (15-37)
[2018-03-06 05:51] LABS: Alkaline Phosphatase 80 U/L (45-117); Total Protein 6.6 g/dL (6.4-8.2)
--- NOTE | 2018-03-06 07:54 | P.PNCC ---
Subjective Subjective Remarks/Hospital Course: The patient is a 47-year-old male with a past medical history of a CVA with left -sided hemiparesis, hypertension, diabetes mellitus, anemia of chronic disease, CHF, dysphagia, status post PEG tube placement, depression, nonverbal, who was admitted under the hospitalist service on 02/17/2018 for acute on chronic anemia. In addition, the patient has a history of bilateral foot osteomyelitis. During his hospital course, he had worsening renal function with a creatinine of 1.74 this morning from 1.1 on admission. In addition, the patient was found hypernatremic with a sodium level of 156 and hyperkalemic with a potassium level 5.3. A halicat was called 2 days ago for shortness of breath, and this morning the patient had a PEA arrest. ACLS protocol was initiated and the patient received epinephrine x3, 2 amps of bicarbonate, and 1 amp of calcium and was subsequently intubated by myself with an ET tube 8.0 cm size. A chest x-ray post intubation showed diffuse bilateral pulmonary infiltrates. He was on NS at 100 mL an hour for the past 2 days. Also, he had a venous Doppler ultrasound on 02/18/2018, which showed no evidence of a DVT; however, it showed a pseudoaneurysm at the distal brachial artery measuring 3.6 x 2.2 x 2.2 cm, predominantly thrombosed; however, there was a small patent component with biphasic flow measuring 6 x 9 mm. A single lumen right PICC line was placed by interventional radiology on 02/22/2018. The patient also had an arterial Doppler ultrasound which was within normal. He was seen by Dr. Jensen from vascular surgery. In addition, the patient has been followed by podiatry and infectious disease. ABG postcode showed acute hypercapnic respiratory acidosis with a pH of 7.11, CO2 of 83, PaO2 of 99, bicarbonate 25, saturation 92% on PRVC mode, rate of 16, tidal volume 500, PEEP of 5, 100% FiO2, and I time 0.9. 03/06 Patient is sedated with Versed and Fenantl drips Levophed started overnight on 4 mics. Afebrile. Renal function worse this morning with C: 1.93 from 1.75 s/p transfusion 2U PRBC yesterday . Objective Vital Signs / I&O: Vital Signs 03/05/18 08:00 03/05/18 08:15 03/05/18 08:30 Temperature 93.5 F L Pulse Rate 74 72 73 Respiratory Rate 23 20 22 Blood Pressure 89/51 L 81/53 L 88/58 L Pulse Oximetry 94 L 95 92 L 03/05/18 08:45 03/05/18 09:00 03/05/18 09:15 Temperature Pulse Rate 75 74 73 Respiratory Rate 23 23 23 Blood Pressure 99/61 L 104/57 L 102/64 Pulse Oximetry 92 L 92 L 92 L 03/05/18 09:30 03/05/18 09:44 03/05/18 09:46 Temperature Pulse Rate 72 73 Respiratory Rate 17 21 20 Blood Pressure 106/58 L 100/60 Pulse Oximetry 94 L 94 L 94 L 03/05/18 10:00 03/05/18 10:15 03/05/18 10:30 Temperature 93.4 F L 93.4 F L 93.6 F L Pulse Rate 72 74 73 Respiratory Rate 20 20 20 Blood Pressure 95/66 L 96/65 L 94/61 L Pulse Oximetry 94 L 98 97 03/05/18 12:00 03/05/18 12:02 03/05/18 12:30 Temperature Pulse Rate 74 Respiratory Rate 20 Blood Pressure 97/63 L Pulse Oximetry 99 03/05/18 12:45 03/05/18 13:00 03/05/18 13:15 Temperature 94.5 F L 94.8 F L 95.0 F L Pulse Rate 75 75 75 Respiratory Rate 20 20 18 Blood Pressure 97/60 L 98/63 L 95/65 L Pulse Oximetry 100 100 100 03/05/18 13:30 03/05/18 13:45 03/05/18 14:00 Temperature 95.2 F L 95.2 F L 95.5 F L Pulse Rate 75 78 79 Respiratory Rate 20 20 20 Blood Pressure 95/63 L 96/60 L Pulse Oximetry 99 97 03/05/18 14:08 03/05/18 14:15 03/05/18 14:30 Temperature 95.5 F L 95.5 F L 95.7 F L Pulse Rate 79 79 79 Respiratory Rate 20 20 20 Blood Pressure 101/63 99/63 L 98/64 L Pulse Oximetry 99 98 97 03/05/18 14:45 03/05/18 14:51 08/28/18 15:00 Temperature Pulse Rate 83 80 80 Respiratory Rate 20 20 16 Blood Pressure 115/83 107/71 97/61 L Pulse Oximetry 97 99 97 03/05/18 15:15 03/05/18 15:30 03/05/18 15:45 Temperature Pulse Rate 80 84 86 Respiratory Rate 20 16 28 H Blood Pressure 101/66 100/68 96/70 L Pulse Oximetry 97 90 L 95 03/05/18 15:57 03/05/18 16:00 03/05/18 16:15 Temperature 98.2 F Pulse Rate 85 85 87 Respiratory Rate 23 20 21 Blood Pressure 107/67 110/71 112/74 Pulse Oximetry 97 98 98 03/05/18 16:30 03/05/18 16:45 03/05/18 16:49 Temperature Pulse Rate 89 90 88 Respiratory Rate 25 H 35 H 20 Blood Pressure 109/73 106/67 105/64 Pulse Oximetry 98 87 L 98 03/05/18 17:00 03/05/18 17:15 03/05/18 17:30 Temperature Pulse Rate 91 H 86 83 Respiratory Rate 19 9 L 11 L Blood Pressure 117/62 127/66 102/57 L Pulse Oximetry 97 96 95 03/05/18 17:45 03/05/18 18:00 03/05/18 18:23 Temperature Pulse Rate 82 83 Respiratory Rate 17 Blood Pressure 106/62 Pulse Oximetry 95 100 03/05/18 20:00 03/05/18 20:27 03/05/18 20:45 Temperature 99.2 F 99.1 F 99.5 F Pulse Rate 92 H 92 H 92 H Respiratory Rate 18 20 20 Blood Pressure 104/60 94/58 L 99/60 L Pulse Oximetry 99 99 96 03/05/18 20:52 03/05/18 20:53 03/05/18 21:45 Temperature 99.2 F Pulse Rate 93 H 93 H Respiratory Rate 20 20 20 Blood Pressure 97/57 L Pulse Oximetry 99 95 03/05/18 22:00 03/05/18 22:08 03/06/18 00:00 Temperature 98.8 F 99.4 F Pulse Rate 92 H 94 H 93 H Respiratory Rate 20 20 Blood Pressure 97/58 L 102/62 Pulse Oximetry 95 97 03/06/18 00:32 03/06/18 02:00 03/06/18 04:00 Temperature 99.4 F Pulse Rate 86 87 Respiratory Rate 20 20 Blood Pressure 94/57 L Pulse Oximetry 96 96 03/06/18 04:03 03/06/18 06:00 Temperature Pulse Rate 87 Respiratory Rate 20 Blood Pressure Pulse Oximetry 94 L Intake & Output 03/05/18 03/06/18 03/06/18 18:59 06:59 18:59 Intake Total 1536 / 1536 3050 / 3050 Output Total 800 / 800 600 / 600 Balance 736 / 736 2450 / 2450 Weight 92.6 kg Intake: IV 936 / 936 2250 / 2250 D5W Inj 1,000 ML @ 100 mls/hr 1000 / 1000 IV.CONT .Q10H KRISTIE Rx#:[id number] NS Inj 1,000 ML @ 100 mls/hr IV 686 / 686 .CONT .Q10H KRISTIE Rx#:[id number] Cubicin Inj 800 MG In NS Inj 100 / 100 100 ML @ 200 mls/hr IV.SIG Q24H KRISTIE Rx#:[id number] Levaquin 750 mg Premix Inj 150 150 / 150 ML @ 100 mls/hr IV.SIG Q24H KRISTIE Rx#:[id number] Zyvox 600 mg Premix 300 ML @ 600 / 600 300 mls/hr IV.SIG Q12H KRISTIE Rx#: [id number] Zosyn 4.5 GM Premix 4.5 gm In 100 / 100 300 / 300 100 ml @ 200 mls/hr IV.SIG Q6H KRISTIE Rx#:[id number] fentaNYL 10 mcg/mL Premix Drip 250 / 250 2,500 mcg In 250 ml @ 50 MCG/HR 5 mls/hr IV.SIG TITRATE PRN Rx #:[id number] Water Bolus Amount 600 / 600 Intake (Blood Product) Amt 800 / 800 Rbc As-3 Leukoreduced Unit 400 / 400 [id number] Rbc As-3 Leukoreduced Unit 400 / 400 [id number] Output: Urine Amount (Catheter) 800 / 800 600 / 600 Indwelling Urethral Catheter 800 / 800 600 / 600 Other: Date of Last Bowel Movement 03/05/18 03/05/18 # Bowel Movements 2 Result Diagrams: 03/06/18 04:50 03/06/18 04:50 Other Results: Laboratory Results - last 12 hr 02/17/18 03/05/18 03/05/18 07:09 14:00 18:20 WBC RBC Hgb Hct MCV MCH MCHC RDW Plt Count MPV Neut % (Auto) Lymph % (Auto) [place] % (Auto) Eos % (Auto) Baso % (Auto) Neut # (Auto) Lymph # (Auto) [place] # (Auto) Eos # (Auto) Baso # (Auto) WBC Differential Differential Comment Sodium Potassium Chloride Carbon Dioxide Anion Gap BUN Creatinine Estimated GFR POC Glucose Random Glucose Calcium Total Bilirubin AST ALT Alkaline Phosphatase Troponin I Total Protein Albumin St C. diff Tox Epid 027 Negative C. difficile (PCR) Negative Blood Type O Positive Antibody Screen Negative MTS Gel Crossmatch See Detail See Detail 03/05/18 03/05/18 03/06/18 20:37 23:46 04:50 WBC 7.1 D RBC 2.53 L Hgb 7.9 L Hct 23.2 L MCV 91.5 D MCH 31.1 MCHC 34.0 RDW 17.1 Plt Count 127 L MPV 9.0 Neut % (Auto) 79.9 H Lymph % (Auto) 10.2 Gall[place] % (Auto) 9.1 H Eos % (Auto) 0.4 Baso % (Auto) 0.4 Neut # (Auto) 5.7 Lymph # (Auto) 0.7 L [place] # (Auto) 0.6 Eos # (Auto) 0.0 Baso # (Auto) 0.0 WBC Differential . Differential Comment Auto diff final Sodium Potassium Chloride Carbon Dioxide Anion Gap BUN Creatinine Estimated GFR POC Glucose 153 H Random Glucose Calcium Total Bilirubin AST ALT Alkaline Phosphatase Troponin I 0.07 H Total Protein Albumin St C. diff Tox Epid 027 C. difficile (PCR) Blood Type Antibody Screen MTS Gel Crossmatch 03/06/18 04:50 WBC RBC Hgb Hct MCV MCH MCHC RDW Plt Count MPV Neut % (Auto) Lymph % (Auto) [place] % (Auto) Eos % (Auto) Baso % (Auto) Neut # (Auto) Lymph # (Auto) [place] # (Auto) Eos # (Auto) Baso # (Auto) WBC Differential Differential Comment Sodium 152 H Potassium 3.9 Chloride 116 H Carbon Dioxide 27.8 Anion Gap 8 BUN 61 H Creatinine 1.93 H Estimated GFR 45 L POC Glucose Random Glucose 77 Calcium 7.9 L Total Bilirubin 0.9 AST 34 ALT 24 Alkaline Phosphatase 80 Troponin I Total Protein 6.[address] C[address] diff Tox Epid 027 C. difficile (PCR) Blood Type Antibody Screen MTS Gel Crossmatch Imaging: Abdomen/Pelvis CT 02/17/18 00:00 CONCLUSION: 1. Small bilateral pleural effusions and bilateral lower lung opacity again seen. 2. Mild splenomegaly again seen. 3. Gastrostomy tube in place. 4. No evidence of bowel dilatation. 5. Heterotopic ossification about the left hip again seen. 6. Calcified adrenal glands again seen. 7. Enlarged inguinal lymph nodes again seen. Venous Doppler Study 02/18/18 00:00 CONCLUSION: 1. No DVT or SVT. 2. 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 This measures 3.6 x 2.2 x 2.2 cm and is predominantly thrombosed with a small, 6 x 9 mm patent component showing biphasic flow. Central Venous Line 02/22/18 00:00 CONCLUSION: 1. Uncomplicated tunneled central venous Power PICC line placement. 2. The PICC line can be used immediately. Foot MRI 02/22/18 00:00 CONCLUSION: 1. Findings most characteristic of early osteomyelitis at the medial aspect of the first metatarsal head and a tiny focus of probable osteomyelitis at the medial corner of the proximal phalanx great toe. Mild surrounding cellulitis. 2. Previous partial amputation fifth metatarsal. Extremity Arterial Study 02/26/18 00:00 CONCLUSION: 1. Normal ABIs bilaterally. Chest CT 03/05/18 00:00 CONCLUSION: 1. Bilateral effusions and diffuse bilateral consolidation. Chest X-Ray 03/05/18 06:44 CONCLUSION: 1. The right IJ central venous catheter remains directed cephalad, with distal tip beyond the superior field of view. 2. Endotracheal tube with distal tip superior to the midclavicular heads, approximately 8.5 cm above the luz maria. This could be advanced. 3. Persistent opacification of the right hemithorax and left lung base, now with dense opacification in the left superhilar region. Objective Remarks: GENERAL: Patient is 47 yo intubated and sedated SKIN: Warm and dry. HEAD: Normocephalic. EYES: No scleral icterus. No injection or drainage. NECK: Supple, trachea midline. No JVD or lymphadenopathy. CARDIOVASCULAR: Regular rate and rhythm without murmurs, gallops, or rubs. RESPIRATORY: Breath sounds equal bilaterally. No accessory muscle use. GASTROINTESTINAL: Abdomen soft, non-tender, nondistended. + PEG tube MUSCULOSKELETAL: No cyanosis, or edema. Neuro: Sedated, intubated Assessment and Plan - Assessment and Plan Plan: 1. VDRF 2. S/p PEA arrest 3. Diffuse bilateral pulmonary infiltrates, ddx aspiration pneumonia and fluid overload. 4. Hypertension. 5. Acute kidney injury. 6. History CVA with left-sided hemiparesis. 7. 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 8. Bilateral foot osteomyelitis methicillin-resistant Staphylococcus aureus. Plan Neuro: on fentanyl and Versed infusion for sedation. Daily sedation vacation. on Keppra 500 mg t.i.d. for a history of seizures. Pulm: Continue with ventilatory support and maintain sats> 92%. Bronchodilators, ICU vent bundle. Decrease FIO2 as demond. Check ABG CXR shows diffuse infiltrates patient also has a lot of secretions s/p diagnostic US guided thoracentesis 40ml removed, pleural fluid sent for analysis & culture. Bronch with BAL today showed secretions L>R suctioned to clear, BAL performed LLL. CV: Monitor HR and BP and maintain MAP> 65 mmHg. Wean off Levophed. Lactic acid: 1.0 For 2D echo : Monitor renal function, I's and O's and avoid nephrotoxins. Cr: 1.93 from 1.75, UOP:1.4L d/c IVF and diurese with Lasix 40mg IV x1 ( fluid overload) Continue with Free water 300ml Q6 monitor sodium level GI: On Prevacid 30 mg daily. Start tube feeds- Glucerna 1.5 with goal rate 50ml/ hr ID: Continue with abx ( Zosyn, Zyvox) ID is following Follow up on Blood and urine cx from 03/05 03/05 Sputum cx: GNR Heme: Monitor CBC and coags. s/p transfusion 2u PRBC 03/05 heme occult negative Endo: SSI with Accu-Cheks for glycemic control. GI prophylaxis- On Prevacid DVT prophylaxis- SCD, heparin SQ held for anemia requiring blood transfusion. IV access: RUE single lumen PICC line repositioned by IR 03/05 Level 3
--- NOTE | 2018-03-06 08:03 | P.PNIM ---
Subjective Interval history: Patient seen and examined this morning. Per nurse report PICC line was incorrectly placed, was removed yesterday and adequate placement performed. Temperature ranged between 98.8-99.4, pulse range between 87-105, respiratory rate set at 20 with spontaneous breathing on top of right, pulse ox ranging between 94-96, flow rate at 6, PEEP at 8, FiO2 of 60. Patient is sedated on fentanyl opens eyes and grimaces to pain, currently not communicating or following any commands. Physical Exam Vital signs: Vital Signs 03/05/18 08:00 03/05/18 08:15 03/05/18 08:30 Temperature 93.5 F L Pulse Rate 74 72 73 Respiratory Rate 23 20 22 Blood Pressure 89/51 L 81/53 L 88/58 L Pulse Oximetry 94 L 95 92 L 03/05/18 08:45 03/05/18 09:00 03/05/18 09:15 Temperature Pulse Rate 75 74 73 Respiratory Rate 23 23 23 Blood Pressure 99/61 L 104/57 L 102/64 Pulse Oximetry 92 L 92 L 92 L 03/05/18 09:30 03/05/18 09:44 03/05/18 09:46 Temperature Pulse Rate 72 73 Respiratory Rate 17 21 20 Blood Pressure 106/58 L 100/60 Pulse Oximetry 94 L 94 L 94 L 03/05/18 10:00 03/05/18 10:15 03/05/18 10:30 Temperature 93.4 F L 93.4 F L 93.6 F L Pulse Rate 72 74 73 Respiratory Rate 20 20 20 Blood Pressure 95/66 L 96/65 L 94/61 L Pulse Oximetry 94 L 98 97 03/05/18 12:00 03/05/18 12:02 03/05/18 12:30 Temperature Pulse Rate 74 Respiratory Rate 20 Blood Pressure 97/63 L Pulse Oximetry 99 03/05/18 12:45 03/05/18 13:00 03/05/18 13:15 Temperature 94.5 F L 94.8 F L 95.0 F L Pulse Rate 75 75 75 Respiratory Rate 20 20 18 Blood Pressure 97/60 L 98/63 L 95/65 L Pulse Oximetry 100 100 100 03/05/18 13:30 03/05/18 13:45 03/05/18 14:00 Temperature 95.2 F L 95.2 F L 95.5 F L Pulse Rate 75 78 79 Respiratory Rate 20 20 20 Blood Pressure 95/63 L 96/60 L Pulse Oximetry 99 97 03/05/18 14:08 03/05/18 14:15 03/05/18 14:30 Temperature 95.5 F L 95.5 F L 95.7 F L Pulse Rate 79 79 79 Respiratory Rate 20 20 20 Blood Pressure 101/63 99/63 L 98/64 L Pulse Oximetry 99 98 97 03/05/18 14:45 03/05/18 14:51 03/05/18 15:00 Temperature Pulse Rate 83 80 80 Respiratory Rate 20 20 16 Blood Pressure 115/83 107/71 97/61 L Pulse Oximetry 97 99 97 03/05/18 15:15 03/05/18 15:30 03/05/18 15:45 Temperature Pulse Rate 80 84 86 Respiratory Rate 20 16 28 H Blood Pressure 101/66 100/68 96/70 L Pulse Oximetry 97 90 L 95 03/05/18 15:57 03/05/18 16:00 03/05/18 16:15 Temperature 98.2 F Pulse Rate 85 85 87 Respiratory Rate 23 20 21 Blood Pressure 107/67 110/71 112/74 Pulse Oximetry 97 98 98 03/05/18 16:30 03/05/18 16:45 03/05/18 16:49 Temperature Pulse Rate 89 90 88 Respiratory Rate 25 H 35 H 20 Blood Pressure 109/73 106/67 105/64 Pulse Oximetry 98 87 L 98 03/05/18 17:00 03/05/18 17:15 03/05/18 17:30 Temperature Pulse Rate 91 H 86 83 Respiratory Rate 19 9 L 11 L Blood Pressure 117/62 127/66 102/57 L Pulse Oximetry 97 96 95 03/05/18 17:45 03/05/18 18:00 03/05/18 18:23 Temperature Pulse Rate 82 83 Respiratory Rate 17 Blood Pressure 106/62 Pulse Oximetry 95 100 03/05/18 20:00 03/05/18 20:27 03/05/18 20:45 Temperature 99.2 F 99.1 F 99.5 F Pulse Rate 92 H 92 H 92 H Respiratory Rate 18 20 20 Blood Pressure 104/60 94/58 L 99/60 L Pulse Oximetry 99 99 96 03/05/18 20:52 03/05/18 20:53 03/05/18 21:45 Temperature 99.2 F Pulse Rate 93 H 93 H Respiratory Rate 20 20 20 Blood Pressure 97/57 L Pulse Oximetry 99 95 03/05/18 22:00 03/05/18 22:08 03/06/18 00:00 Temperature 98.8 F 99.4 F Pulse Rate 92 H 94 H 93 H Respiratory Rate 20 20 Blood Pressure 97/58 L 102/62 Pulse Oximetry 95 97 03/06/18 00:32 03/06/18 02:00 03/06/18 04:00 Temperature 99.4 F Pulse Rate 86 87 Respiratory Rate 20 20 Blood Pressure 94/57 L Pulse Oximetry 96 96 03/06/18 04:03 03/06/18 06:00 Temperature Pulse Rate 87 Respiratory Rate 20 Blood Pressure Pulse Oximetry 94 L Intake & Output 03/05/18 03/06/18 03/06/18 18:59 06:59 18:59 Intake Total 1536 / 1536 3050 / 3050 Output Total 800 / 800 600 / 600 Balance 736 / 736 2450 / 2450 Weight 92.6 kg Intake: IV 936 / 936 2250 / 2250 D5W Inj 1,000 ML @ 100 mls/hr 1000 / 1000 IV.CONT .Q10H KRISTIE Rx#:[id number] NS Inj 1,000 ML @ 100 mls/hr IV 686 / 686 .CONT .Q10H KRISTIE Rx#:[id number] Cubicin Inj 800 MG In NS Inj 100 / 100 100 ML @ 200 mls/hr IV.SIG Q24H KRISTIE Rx#:[id number] Levaquin 750 mg Premix Inj 150 150 / 150 ML @ 100 mls/hr IV.SIG Q24H KRISTIE Rx#:[id number] Zyvox 600 mg Premix 300 ML @ 600 / 600 300 mls/hr IV.SIG Q12H KRISTIE Rx#: [id number] Zosyn 4.5 GM Premix 4.5 gm In 100 / 100 300 / 300 100 ml @ 200 mls/hr IV.SIG Q6H KRISTIE Rx#:[id number] fentaNYL 10 mcg/mL Premix Drip 250 / 250 2,500 mcg In 250 ml @ 50 MCG/HR 5 mls/hr IV.SIG TITRATE PRN Rx #:[id number] Water Bolus Amount 600 / 600 Intake (Blood Product) Amt 800 / 800 Rbc As-3 Leukoreduced Unit 400 / 400 [id number] Rbc As-3 Leukoreduced Unit 400 / 400 [id number] Output: Urine Amount (Catheter) 800 / 800 600 / 600 Indwelling Urethral Catheter 800 / 800 600 / 600 Other: Date of Last Bowel Movement 03/05/18 03/05/18 # Bowel Movements 2 Narrative: GENERAL: WDWN male patient, INAD. Lying in bed nonresponsive. Currently sedated on fentanyl SKIN: Warm and dry. No generalized rash. Bilateral feet wrapped and in heel raiser boots bilaterally. HEENT: Atraumatic. Normocephalic. Pupils equal and round. No scleral icterus. No injection or drainage. No nasal bleeding or discharge. NECK: Trachea midline. Airway patent. CARDIOVASCULAR: Regular rate and rhythm. No murmur appreciated. RESPIRATORY: Noticeable accessory muscle use. Poor effort, decreased breath sounds in the lower ruiz bilaterally GASTROINTESTINAL: Abdomen soft, non-tender, nondistended. +PEG tube in place mid abdomen, site C/D/I MUSCULOSKELETAL: Extremities without clubbing, cyanosis. +spontaneous movement in RUE. LLE contracted. NEUROLOGICAL: Awake and alert. Unable to assess motor function, patient not following commands. Nonverbal. PSYCHIATRIC: Calm. - Urinary Catheter Management Indwelling Urethral Catheter Cath placed during this visit: yes Reason for continuing: Acute urinary retention Insertion date: 03/05/18 Insertion time: 08:00 Results - Labs CBC & Chem 7: 03/06/18 04:50 03/06/18 04:50 Laboratory Results - last 24 hr 02/17/18 03/05/18 03/05/18 07:09 07:39 07:53 WBC 3.7 L RBC 2.33 L Hgb 7.1 L Hct 23.4 L MCV 100.5 H MCH 30.3 MCHC 30.2 L RDW 18.2 H Plt Count 139 L MPV 9.7 Prelim Diff (Auto) Slide review pending Neut % (Auto) 73.7 H Lymph % (Auto) 15.2 [place] % (Auto) 9.4 H Eos % (Auto) 1.4 Baso % (Auto) 0.3 Neut # (Auto) 2.7 Lymph # (Auto) 0.6 L [place] # (Auto) 0.3 Eos # (Auto) 0.1 Baso # (Auto) 0.0 WBC Differential Manual diff final Seg Neuts % (Manual) 69 Band Neuts % (Manual) 11 H Lymphocytes % (Manual) 10 Monocytes % (Manual) 6 Eosinophils % (Manual) 2 Metamyelocytes % (Man) 1 Myelocytes % (Man) 1 H Abs Neuts (Manual) 3.0 Differential Comment . Platelet Estimate Low L Platelet Morphology Normal Basophilic Stippling Ovalocytes PT INR Puncture Site Left radial Patient Temperature 98.6 O2 Saturation 92 ABG pH 7.11 L* ABG pCO2 83 H* ABG pO2 99 ABG HCO3 25 ABG O2 Content 10.6 L ABG Base Excess -3.3 L ABG Methemoglobin 1.4 Rodriguez Test Present Hemoglobin 8.1 L Carboxyhemoglobin 2.5 O2 Delivery Device Vent Vent Setting Prvc/16/550/0.90/+5 Inspired O2 100 Critical Value Yes Sodium Potassium Chloride Carbon Dioxide Anion Gap BUN Creatinine Estimated GFR POC Glucose Random Glucose Lactic Acid Calcium Total Bilirubin AST ALT Alkaline Phosphatase Total Creatine Kinase Troponin I Total Protein Albumin Urine Color Urine Clarity Urine pH Ur Specific [place] Urine Protein Urine Glucose (UA) Urine Ketones Urine Occult Blood Urine Nitrate Urine Bilirubin Urine Urobilinogen Ur Leukocyte Esterase Urine RBC Urine WBC Urine WBC Clumps Ur Squamous Epith Cells Urine Bacteria Granular Casts WBC Casts Urine Mucus Micro UA Comment Ur Microscopic Review Urine Culture Comments St C. diff Tox Epid 027 C. difficile (PCR) Blood Type Antibody Screen MTS Gel Crossmatch See Detail 03/05/18 03/05/18 03/05/18 07:53 07:53 09:24 WBC RBC Hgb Hct MCV MCH MCHC RDW Plt Count MPV Prelim Diff (Auto) Neut % (Auto) Lymph % (Auto) [place] % (Auto) Eos % (Auto) Baso % (Auto) Neut # (Auto) Lymph # (Auto) [place] # (Auto) Eos # (Auto) Baso # (Auto) WBC Differential Seg Neuts % (Manual) Band Neuts % (Manual) Lymphocytes % (Manual) Monocytes % (Manual) Eosinophils % (Manual) Metamyelocytes % (Man) Myelocytes % (Man) Abs Neuts (Manual) Differential Comment Platelet Estimate Platelet Morphology Basophilic Stippling Ovalocytes PT 12.7 H INR 1.3 Puncture Site Patient Temperature O2 Saturation ABG pH ABG pCO2 ABG pO2 ABG HCO3 ABG O2 Content ABG Base Excess ABG Methemoglobin Rodriguez Test Hemoglobin Carboxyhemoglobin O2 Delivery Device Vent Setting Inspired O2 Critical Value Sodium 156 H* Potassium 5.3 H D Chloride 120 H Carbon Dioxide 29.7 Anion Gap 6 BUN 61 H Creatinine 1.74 H Estimated GFR 51 L POC Glucose 152 H Random Glucose 157 H Lactic Acid Calcium 8.1 L Total Bilirubin 0.5 AST 21 ALT 23 Alkaline Phosphatase 107 Total Creatine Kinase Troponin I Total Protein 7.0 D Albumin 2.2 L D Urine Color Urine Clarity Urine pH Ur Specific [place] Urine Protein Urine Glucose (UA) Urine Ketones Urine Occult Blood Urine Nitrate Urine Bilirubin Urine Urobilinogen Ur Leukocyte Esterase Urine RBC Urine WBC Urine WBC Clumps Ur Squamous Epith Cells Urine Bacteria Granular Casts WBC Casts Urine Mucus Micro UA Comment Ur Microscopic Review Urine Culture Comments St C. diff Tox Epid 027 C. difficile (PCR) Blood Type Antibody Screen MTS Gel Crossmatch 03/05/18 03/05/18 03/05/18 09:59 09:59 09:59 WBC RBC Hgb Hct MCV MCH MCHC RDW Plt Count MPV Prelim Diff (Auto) Neut % (Auto) Lymph % (Auto) [place] % (Auto) Eos % (Auto) Baso % (Auto) Neut # (Auto) Lymph # (Auto) [place] # (Auto) Eos # (Auto) Baso # (Auto) WBC Differential Seg Neuts % (Manual) Band Neuts % (Manual) Lymphocytes % (Manual) Monocytes % (Manual) Eosinophils % (Manual) Metamyelocytes % (Man) Myelocytes % (Man) Abs Neuts (Manual) Differential Comment Platelet Estimate Platelet Morphology Basophilic Stippling Ovalocytes PT INR Puncture Site Patient Temperature O2 Saturation ABG pH ABG pCO2 ABG pO2 ABG HCO3 ABG O2 Content ABG Base Excess ABG Methemoglobin Rodriguez Test Hemoglobin Carboxyhemoglobin O2 Delivery Device Vent Setting Inspired O2 Critical Value Sodium Potassium Chloride Carbon Dioxide Anion Gap BUN Creatinine Estimated GFR POC Glucose Random Glucose Lactic Acid 1.0 Calcium Total Bilirubin AST ALT Alkaline Phosphatase Total Creatine Kinase 91 Troponin I 0.08 H Total Protein Albumin Urine Color Urine Clarity Urine pH Ur Specific [place] Urine Protein Urine Glucose (UA) Urine Ketones Urine Occult Blood Urine Nitrate Urine Bilirubin Urine Urobilinogen Ur Leukocyte Esterase Urine RBC Urine WBC Urine WBC Clumps Ur Squamous Epith Cells Urine Bacteria Granular Casts WBC Casts Urine Mucus Micro UA Comment Ur Microscopic Review Urine Culture Comments St C. diff Tox Epid 027 C. difficile (PCR) Blood Type Antibody Screen MTS Gel Crossmatch 03/05/18 03/05/18 03/05/18 10:21 11:25 11:42 WBC RBC Hgb Hct MCV MCH MCHC RDW Plt Count MPV Prelim Diff (Auto) Neut % (Auto) Lymph % (Auto) [place] % (Auto) Eos % (Auto) Baso % (Auto) Neut # (Auto) Lymph # (Auto) [place] # (Auto) Eos # (Auto) Baso # (Auto) WBC Differential Seg Neuts % (Manual) Band Neuts % (Manual) Lymphocytes % (Manual) Monocytes % (Manual) Eosinophils % (Manual) Metamyelocytes % (Man) Myelocytes % (Man) Abs Neuts (Manual) Differential Comment Platelet Estimate Platelet Morphology Basophilic Stippling Ovalocytes PT INR Puncture Site Right femoral Patient Temperature 98.6 O2 Saturation 90 ABG pH 7.28 L* ABG pCO2 56 H* ABG pO2 69 ABG HCO3 26 ABG O2 Content 8.8 L ABG Base Excess -0.5 ABG Methemoglobin 1.4 Rodriguez Test Present Hemoglobin 6.9 L* Carboxyhemoglobin 2.3 O2 Delivery Device Vent Vent Setting Prvc/20/600/1.0/+8 Inspired O2 100 Critical Value Yes Sodium Potassium Chloride Carbon Dioxide Anion Gap BUN Creatinine Estimated GFR POC Glucose 144 H Random Glucose Lactic Acid Calcium Total Bilirubin AST ALT Alkaline Phosphatase Total Creatine Kinase Troponin I Total Protein Albumin Urine Color Yellow Urine Clarity Cloudy H Urine pH 5.0 Ur Specific [place] 1.020 Urine Protein 100 H Urine Glucose (UA) Negative Urine Ketones Negative Urine Occult Blood Negative Urine Nitrate Negative Urine Bilirubin Negative Urine Urobilinogen 2.0 H Ur Leukocyte Esterase Small H Urine RBC 9 H Urine WBC 65 H Urine WBC Clumps Few H Ur Squamous Epith Cells 4 Urine Bacteria Moderate H Granular Casts 3 WBC Casts 2 Urine Mucus Few H Micro UA Comment Culture indicated Ur Microscopic Review Not Reportable Urine Culture Comments Culture indicated St C. diff Tox Epid 027 C. difficile (PCR) Blood Type Antibody Screen MTS Gel Crossmatch 03/05/18 03/05/18 03/05/18 13:58 13:58 14:00 WBC 3.1 L RBC 2.32 L Hgb 6.9 L* Hct 22.7 L MCV 97.7 MCH 29.8 MCHC 30.5 L RDW 17.9 H Plt Count 134 L MPV 9.4 Prelim Diff (Auto) Slide review pending Neut % (Auto) 78.2 H Lymph % (Auto) 9.6 [place] % (Auto) 11.6 H Eos % (Auto) 0.4 Baso % (Auto) 0.2 Neut # (Auto) 2.4 Lymph # (Auto) 0.3 L [place] # (Auto) 0.4 Eos # (Auto) 0.0 Baso # (Auto) 0.0 WBC Differential Manual diff final Seg Neuts % (Manual) 44 Band Neuts % (Manual) 31 H Lymphocytes % (Manual) 17 Monocytes % (Manual) 7 Eosinophils % (Manual) 1 Metamyelocytes % (Man) Myelocytes % (Man) Abs Neuts (Manual) 2.3 Differential Comment . Platelet Estimate Low L Platelet Morphology Enlarged H Basophilic Stippling Heavy H Ovalocytes 1+ H PT INR Puncture Site Patient Temperature O2 Saturation ABG pH ABG pCO2 ABG pO2 ABG HCO3 ABG O2 Content ABG Base Excess ABG Methemoglobin Rodriguez Test Hemoglobin Carboxyhemoglobin O2 Delivery Device Vent Setting Inspired O2 Critical Value Sodium 158 H* Potassium 4.6 Chloride 122 H Carbon Dioxide 27.8 Anion Gap 8 BUN 63 H Creatinine 1.78 H Estimated GFR 50 L POC Glucose Random Glucose 113 H Lactic Acid Calcium 8.3 L Total Bilirubin AST ALT Alkaline Phosphatase Total Creatine Kinase Troponin I Total Protein Albumin Urine Color Urine Clarity Urine pH Ur Specific [place] Urine Protein Urine Glucose (UA) Urine Ketones Urine Occult Blood Urine Nitrate Urine Bilirubin Urine Urobilinogen Ur Leukocyte Esterase Urine RBC Urine WBC Urine WBC Clumps Ur Squamous Epith Cells Urine Bacteria Granular Casts WBC Casts Urine Mucus Micro UA Comment Ur Microscopic Review Urine Culture Comments St C. diff Tox Epid 027 Negative C. difficile (PCR) Negative Blood Type Antibody Screen MTS Gel Crossmatch 03/05/18 03/05/18 03/05/18 17:08 18:20 18:20 WBC RBC Hgb Hct MCV MCH MCHC RDW Plt Count MPV Prelim Diff (Auto) Neut % (Auto) Lymph % (Auto) [place] % (Auto) Eos % (Auto) Baso % (Auto) Neut # (Auto) Lymph # (Auto) [place] # (Auto) Eos # (Auto) Baso # (Auto) WBC Differential Seg Neuts % (Manual) Band Neuts % (Manual) Lymphocytes % (Manual) Monocytes % (Manual) Eosinophils % (Manual) Metamyelocytes % (Man) Myelocytes % (Man) Abs Neuts (Manual) Differential Comment Platelet Estimate Platelet Morphology Basophilic Stippling Ovalocytes PT INR Puncture Site Patient Temperature O2 Saturation ABG pH ABG pCO2 ABG pO2 ABG HCO3 ABG O2 Content ABG Base Excess ABG Methemoglobin Rodriguez Test Hemoglobin Carboxyhemoglobin O2 Delivery Device Vent Setting Inspired O2 Critical Value Sodium Potassium Chloride Carbon Dioxide Anion Gap BUN Creatinine Estimated GFR POC Glucose 120 H Random Glucose Lactic Acid Calcium Total Bilirubin AST ALT Alkaline Phosphatase Total Creatine Kinase Troponin I 0.09 H Total Protein Albumin Urine Color Urine Clarity Urine pH Ur Specific [place] Urine Protein Urine Glucose (UA) Urine Ketones Urine Occult Blood Urine Nitrate Urine Bilirubin Urine Urobilinogen Ur Leukocyte Esterase Urine RBC Urine WBC Urine WBC Clumps Ur Squamous Epith Cells Urine Bacteria Granular Casts WBC Casts Urine Mucus Micro UA Comment Ur Microscopic Review Urine Culture Comments St C. diff Tox Epid 027 C. difficile (PCR) Blood Type O Positive Antibody Screen Negative MTS Gel Crossmatch See Detail 03/05/18 03/05/18 03/06/18 20:37 23:46 04:50 WBC 7.1 D RBC 2.53 L Hgb 7.9 L Hct 23.2 L MCV 91.5 D MCH 31.1 MCHC 34.0 RDW 17.1 Plt Count 127 L MPV 9.0 Prelim Diff (Auto) Neut % (Auto) 79.9 H Lymph % (Auto) 10.2 [place] % (Auto) 9.1 H Eos % (Auto) 0.4 Baso % (Auto) 0.4 Neut # (Auto) 5.7 Lymph # (Auto) 0.7 L [place] # (Auto) 0.6 Eos # (Auto) 0.0 Baso # (Auto) 0.0 WBC Differential . Seg Neuts % (Manual) Band Neuts % (Manual) Lymphocytes % (Manual) Monocytes % (Manual) Eosinophils % (Manual) Metamyelocytes % (Man) Myelocytes % (Man) Abs Neuts (Manual) Differential Comment Auto diff final Platelet Estimate Platelet Morphology Basophilic Stippling Ovalocytes PT INR Puncture Site Patient Temperature O2 Saturation ABG pH ABG pCO2 ABG pO2 ABG HCO3 ABG O2 Content ABG Base Excess ABG Methemoglobin Rodriguez Test Hemoglobin Carboxyhemoglobin O2 Delivery Device Vent Setting Inspired O2 Critical Value Sodium Potassium Chloride Carbon Dioxide Anion Gap BUN Creatinine Estimated GFR POC Glucose 153 H Random Glucose Lactic Acid Calcium Total Bilirubin AST ALT Alkaline Phosphatase Total Creatine Kinase Troponin I 0.07 H Total Protein Albumin Urine Color Urine Clarity Urine pH Ur Specific [place] Urine Protein Urine Glucose (UA) Urine Ketones Urine Occult Blood Urine Nitrate Urine Bilirubin Urine Urobilinogen Ur Leukocyte Esterase Urine RBC Urine WBC Urine WBC Clumps Ur Squamous Epith Cells Urine Bacteria Granular Casts WBC Casts Urine Mucus Micro UA Comment Ur Microscopic Review Urine Culture Comments St C. diff Tox Epid 027 C. difficile (PCR) Blood Type Antibody Screen MTS Gel Crossmatch 03/06/18 04:50 WBC RBC Hgb Hct MCV MCH MCHC RDW Plt Count MPV Prelim Diff (Auto) Neut % (Auto) Lymph % (Auto) [place] % (Auto) Eos % (Auto) Baso % (Auto) Neut # (Auto) Lymph # (Auto) [place] # (Auto) Eos # (Auto) Baso # (Auto) WBC Differential Seg Neuts % (Manual) Band Neuts % (Manual) Lymphocytes % (Manual) Monocytes % (Manual) Eosinophils % (Manual) Metamyelocytes % (Man) Myelocytes % (Man) Abs Neuts (Manual) Differential Comment Platelet Estimate Platelet Morphology Basophilic Stippling Ovalocytes PT INR Puncture Site Patient Temperature O2 Saturation ABG pH ABG pCO2 ABG pO2 ABG HCO3 ABG O2 Content ABG Base Excess ABG Methemoglobin Rodriguez Test Hemoglobin Carboxyhemoglobin O2 Delivery Device Vent Setting Inspired O2 Critical Value Sodium 152 H Potassium 3.9 Chloride 116 H Carbon Dioxide 27.8 Anion Gap 8 BUN 61 H Creatinine 1.93 H Estimated GFR 45 L POC Glucose Random Glucose 77 Lactic Acid Calcium 7.9 L Total Bilirubin 0.9 AST 34 ALT 24 Alkaline Phosphatase 80 Total Creatine Kinase Troponin I Total Protein 6.6 Albumin 2.2 L Urine Color Urine Clarity Urine pH Ur Specific [place] Urine Protein Urine Glucose (UA) Urine Ketones Urine Occult Blood Urine Nitrate Urine Bilirubin Urine Urobilinogen Ur Leukocyte Esterase Urine RBC Urine WBC Urine WBC Clumps Ur Squamous Epith Cells Urine Bacteria Granular Casts WBC Casts Urine Mucus Micro UA Comment Ur Microscopic Review Urine Culture Comments St C. diff Tox Epid 027 C. difficile (PCR) Blood Type Antibody Screen MTS Gel Crossmatch Microbiology 03/05/18 08:00 Sputum - Endotracheal Gram Stain - Final 03/05/18 14:00 Stool Occult Blood - Final Hemoccult negative 03/03/18 19:53 Blood - Peripheral Aerobic Blood Culture - Preliminary No growth in 2 days 03/03/18 19:53 Blood - Peripheral Anaerobic Blood Culture - Preliminary No growth in 2 days - Imaging Impressions Chest CT 03/05/18 00:00 CONCLUSION: 1. Bilateral effusions and diffuse bilateral consolidation. Assessment and Plan - Assessment (1) Acute on chronic anemia Code(s): D64.9 - Anemia, unspecified Status: Acute (2) Anemia of chronic disorder Code(s): D63.8 - Anemia in other chronic diseases classified elsewhere Status : Acute (3) Pseudoaneurysm of brachial artery Code(s): I72.1 - Aneurysm of artery of upper extremity Status: Acute (4) Osteomyelitis Code(s): M86.9 - Osteomyelitis, unspecified Status: Acute (5) Diabetes Code(s): E11.9 - Type 2 diabetes mellitus without complications Status: Acute - Plan 47 year-old man with diabetes mellitus, hypertension, chronic anemia, chronic pain, 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 The patient had a CBC done as an outpatient and it showed a hemoglobin less than 7.0. 8 sedated at this time, intubated. Previous PICC line was inappropriately placed, New access has been established Pneumonia (worsening atelectasis versus healthcare associated pneumonia versus aspiration) -Status post chest x-ray concerning for consolidation in the lower lobes bilaterally. Concern for aspiration -Infectious disease following, her condition is appreciated -Consulted pulmonology -Consulted intensive -Patient has been started on Zyvox, continue Zosyn -Monitor CBC -Respiratory therapy consult -Continue duo nebs Acute Kidney Injury -Patient's creatinine is trending up. -Close monitoring of Is and Os -Critical care consulted if no improvement will consult Acute on chronic anemia Likely due to IV Vancomycin Patient was previously seen by hematology on December 24, 2017 and at the time his anemia was felt to be anemia of chronic inflammation due to decreased red blood cell production and functional iron deficiency. However that hospitalization there was no suspected underlying bone marrow disorder, and patient had no evidence to suggest iron deficiency, occult blood loss. He responded well to blood transfusion. Hgb 6.2 s/p transfusion 2units PRBCs. Likely 2/2 vancomycin. Hgb currently 8.6 will continue to monitor. iron studies indicative of anemia of chronic disease -GI following, no indication for GI procedures at this time secondary to recent GI workup and no obvious GI bleed. Recommend capsule endoscopy as outpatient. GI signed off. -Hematology consultation as needed -monitor H/H intermittently Pseudoaneurysm right brachial artery Doppler US neg for DVT but revealed a pseudoaneurysm which appears to emanate from the distal brachial artery measuring 3.6 x 2.2 by 2.2 cm. -Dr. Jensen consulted, appreciate assistance. No further intervention needed at this time. Patient able to have PICC line placed above antecubital fossa if needed. Chronic osteomyelitis, MRSA Bilateral foot wounds/ulcers -Stop vancomycin due to kidney injury -Continue on daptomycin to complete 6 weeks of antibiotics -Continue with wound care -Patient evaluated by Dr. Vu of podiatry, no surgical intervention needed at this time, appreciate recommendations -ID following, appreciate assistance. PICC line placed 02/22. MRI studies of bilateral feet shows osteo. -Podiatry following, appreciate assistance. ABIs normal bilaterally. Diarrhea, resolved -likely secondary to TF -monitor History of CVA with left-sided hemiparesis Dysphagia ok to resume TF per GI -Stereo Map Plotter Operator consulted, continue TF Glucerna 1.5 @ 65 mls/hr Diabetes mellitus -continue on accucheks and ISS -Blood sugars overall controlled -patient on Levemir 5u BID at home. Will continue to hold for now. Cover with sliding scale only. Hypertension/hyperlipidemia BP controlled at present -Continue on home antihypertensives Coreg, hydralazine, Norvasc and lisinopril. -Continue to monitor BP and adjust treatment accordingly -Continue on Lipitor Hyperkalemia, mild K 5.2 -Avoid potassium containing medication -repeat K level later today -Increased IV fluids to 100 cc/h Hypernatremia, mild Na 149 -Increase the rate of IV fluids at this time. We will continue to monitor. Seizure d/o -Continue on home dose of Keppra -seizure precautions -monitor for any seizure activity Psychiatric disorder/depression -Continue on home medications DVT prophylaxis: Bilateral SCDs, Heparin sq Code Status: Full code Discharge Planning: Patient currently requiring further medical management
[2018-03-06] MEDS: levETIRAcetam 500 MG Tablet G-TUBE SCH ×3 (08:05→17:11)
[2018-03-06] MEDS: Ascorbic Acid 500 MG Tablet G-TUBE SCH ×2 (08:05→22:14)
[2018-03-06] MEDS: Escitalopram 10 MG Tablet G-TUBE SCH (08:05)
[2018-03-06] MEDS: Senna/Docusate Sodium 8.6/50 MG Tablet G-TUBE SCH ×2 (08:06→22:14)
[2018-03-06 09:03] LABS: ABG Base Excess 1.3 mmol/L (-2-2); ABG PCO2 46 mmHg (38-42); ABG PO2 76 mmHG (61-120)
--- NOTE | 2018-03-06 09:39 | IR ---
EXAM DATE: 03/06/2018 8:33 AM EDT AGE/SEX: 47 years / Male INDICATIONS: Patient presents with history of chronic anemia and tunneled PICC line catheter migrati on in need of Acuna catheter exchange. CLINICAL DATA: This is the patient's subsequent encounter. Patient reports that signs and symptoms h ave been present for 2 weeks and indicates a pain score of Nonresponsive. MEDICAL/SURGICAL HISTORY: . Anemia, CVA, Diabetes, Depression, HLD, Hemiparesis, Hemiplegia, HT N . Gastrostomy tube placement COMPARISON: No prior exams available for comparison. FLUORO TIME (min): 0.1 IMAGE SERIES: 1 DEVICE(S): Right 6.6fr single lumen Acuna . . PROCEDURE : 1. Fluoroscopic guidance. 2. Acuna catheter placement 3. Conscious sedation with continuous EKG and oximetry monitoring. The risks, benefits and alternatives to the procedure were explained and verbal and written consent w as obtained. The site was prepped in sterile fashion. Full sterile technique was used, including ca p, mask, sterile gloves and gown and a large sterile sheet. Hand hygiene and 2% chlorhexidine and Be tadine was utilized per protocol for cutaneous antisepsis with appropriate dry time for site. The sk in and subcutaneous tissues were infiltrated with local anesthetic solution. With fluoroscopic guidance a dermatotomy was created in the supraclavicular region. A micropuncture set was used to access to the prescribed vein and serial dilatation was performed to accept a Acuna catheter. A subcutaneous tunnel was created and in antegrade fashion the catheter was pulled throug h the tunnel, cut to the appropriate length and place through the sheath. The catheter was locked wi th heparin and sutured in place. Conscious sedation was performed with the prescribed dosages and duration as above in the presence of an independent trained radiology nurse to assist in the monitoring of the patient. EKG and oximetry remained stable throughout the procedure. The patient tolerated the procedure well and there were no complications. The patient was sent to post anesthesia recovery in stable condition. CONCLUSION: 1. Uncomplicated Acuna catheter placement as above. Electronically signed by: Alan Young MD 03/06/2018 9:37 AM EDT
--- NOTE | 2018-03-06 11:43 | XR ---
EXAM DATE: 03/06/2018 11:40 AM EDT AGE/SEX: 47 years / Male INDICATIONS: Cough. CLINICAL DATA: This is the patient's initial encounter. Patient reports that signs and symptoms have been present for 4 - 6 days and indicates a pain score of Nonresponsive. MEDICAL/SURGICAL HISTORY: Cerebrovascular disease. Hypertension. Diabetes. anemia . G tube COMPARISON: [facility] [place], CT CHEST W/O CONTRAST, 03/05/2018. . FINDINGS: Large bilateral effusions, cardiomegaly, sternotomy wires and patchy bilateral consolidation noted. E ndotracheal tube tip at the inferior margin the clavicles. The sternotomy wires superiorly is fractur ed. A right sided PICC line is noted and the distal tip projects over the expected location of the SV C. CONCLUSION: Bilateral effusions and consolidation. Electronically signed by: Mike Tee MD 03/06/2018 11:42 AM EDT
[2018-03-06] MEDS ORDERED: Lidocaine 1% Inj 50 ML Vial ONE (14:52)
--- NOTE | 2018-03-06 15:39 | XR ---
EXAM DATE: 03/06/2018 3:29 PM EDT AGE/SEX: 47 years / Male INDICATIONS: Post bronchoscopy. Short of breath. CLINICAL DATA: This is the patient's subsequent encounter. Patient reports that signs and symptoms h ave been present for 1 week and indicates a pain score of 0/10. MEDICAL/SURGICAL HISTORY: Cerebrovascular disease. Hypertension. Diabetes. anemia. . G tube. COMPARISON: C, CHEST 1V SINGLE AP, 03/06/2018. . FINDINGS: The cardiac silhouette is enlarged in transverse diameter. Endotracheal tube is in good position abov e the luz maria. There is patchy alveolar disease bilaterally compatible with edema or pneumonia. The fi ndings have worsened when compared with the prior examination. CONCLUSION: Diffuse edema versus pneumonia. There is no evidence of pneumothorax. Electronically signed by: Doroteo Matos MD 03/06/2018 3:37 PM EDT
[2018-03-06 16:12] LABS: Total Protein,Pleural Fluid 2.6 gm/dL
--- NOTE | 2018-03-06 16:55 | ECHRPT ---
Indication: shortness of breath CONCLUSIONS Normal left ventricular size. Wall thickness is normal. No regional wall motion abnormalities are present. Abnormal septal motion suggestive of RV volume and pressure overload. The right ventricle is mildly dilated. The right ventricular systoilc function is severely decreased. Mild thickening of the mitral valve leaflets. Mitral annular calcification is present. Inflv-[id number] mitral valve regurgitation. Mild mitral valve stenosis. There is mild tricuspid valve regurgitation. There is no pericardial effusion. BP: / HR: Rhythm: Sinus Technical Quality:Good FINDINGS LEFT VENTRICLE The left ventricular systolic function is normal with an estimated ejection fraction in the range of 60-65%. Normal left ventricular size. Wall thickness is normal. No regional wall motion abnormalities are present. Abnormal septal motion suggestive of RV ?volume and pressure overload. RIGHT VENTRICLE The right ventricle is mildly dilated. The right ventricular systoilc function is severely decreased. LEFT ATRIUM The left atrial size is normal. RIGHT ATRIUM The right atrial size is normal. AORTA The aortic root and proximal ascending aorta are normal in size on limited imaging. MITRAL VALVE Mild thickening of the mitral valve leaflets. Mitral annular calcification is present. Ekugg-ha-dfrk mitral valve regurgitation. Mild mitral valve stenosis. AORTIC VALVE Trileaflet aortic valve. No aortic valve stenosis or regurgitation. TRICUSPID VALVE There is mild tricuspid valve regurgitation. Regurgitant velocity was not measured. PULMONARY VALVE No pulmonary valve regurgitation or stenosis. VESSELS The inferior vena cava is normal in size. PERICARDIUM There is no pericardial effusion. Kannan Ayala MD (Electronically Signed) Final Date:06 March 2018 16:55
[2018-03-06 17:29] LABS: Lymphocytes,Pleural Fluid 32 %; Mesothelial,Pleural Fluid 29 %; Monocytes,Pleural Fluid 5 %; Neutrophils,Pleural Fluid 15 %
[2018-03-06 17:38] LABS: RBC,Pleural Fluid 14577 /mm3 (0-0)
--- NOTE | 2018-03-06 18:54 | P.PNPL ---
Subjective Interval history: 47 YO AA male with CVA,DM, Bilat infilt, pl eff On Vent, fi02 45% On Fentanyl Opens eyes Had Thoracentesisi had Bronch, thick mucous suctioned. Physical Exam Vital signs: Vital Signs 03/05/18 20:00 03/05/18 20:27 03/05/18 20:45 Temperature 99.2 F 99.1 F 99.5 F Pulse Rate 92 H 92 H 92 H Respiratory Rate 18 20 20 Blood Pressure 104/60 94/58 L 99/60 L Pulse Oximetry 99 99 96 03/05/18 20:52 03/05/18 20:53 03/05/18 21:45 Temperature 99.2 F Pulse Rate 93 H 93 H Respiratory Rate 20 20 20 Blood Pressure 97/57 L Pulse Oximetry 99 95 03/05/18 22:00 03/05/18 22:08 03/06/18 00:00 Temperature 98.8 F 99.4 F Pulse Rate 92 H 94 H 93 H Respiratory Rate 20 20 Blood Pressure 97/58 L 102/62 Pulse Oximetry 95 97 03/06/18 00:32 03/06/18 02:00 03/06/18 03:30 Temperature Pulse Rate 86 88 Respiratory Rate 20 0 L Blood Pressure 101/62 Pulse Oximetry 96 95 03/06/18 03:45 03/06/18 04:00 03/06/18 04:03 Temperature 99.4 F Pulse Rate 87 87 Respiratory Rate 2 L 0 L 20 Blood Pressure 105/62 94/57 L Pulse Oximetry 96 96 94 L 03/06/18 04:15 03/06/18 04:30 03/06/18 04:45 Temperature Pulse Rate 87 87 88 Respiratory Rate 0 L 0 L 0 L Blood Pressure 93/58 L 91/54 L 92/61 L Pulse Oximetry 96 95 96 03/06/18 05:00 03/06/18 05:15 03/06/18 05:30 Temperature Pulse Rate 89 87 87 Respiratory Rate 0 L 0 L 0 L Blood Pressure 95/63 L 93/59 L 90/59 L Pulse Oximetry 95 95 95 03/06/18 05:45 03/06/18 06:00 03/06/18 06:15 Temperature Pulse Rate 87 87 86 Respiratory Rate 0 L 20 20 Blood Pressure 93/57 L 98/63 L 98/62 L Pulse Oximetry 96 95 94 L 03/06/18 06:30 03/06/18 06:45 03/06/18 07:00 Temperature Pulse Rate 85 86 86 Respiratory Rate 20 20 16 Blood Pressure 99/65 L 101/66 105/71 Pulse Oximetry 91 L 95 93 L 03/06/18 07:15 03/06/18 07:30 03/06/18 07:45 Temperature Pulse Rate 88 87 87 Respiratory Rate 20 8 L 20 Blood Pressure 99/65 L 96/63 L 96/66 L Pulse Oximetry 93 L 94 L 92 L 03/06/18 08:00 03/06/18 08:15 03/06/18 08:30 Temperature 98.9 F Pulse Rate 89 91 H 89 Respiratory Rate 9 L 15 15 Blood Pressure 100/69 96/62 L 111/67 Pulse Oximetry 95 93 L 95 03/06/18 08:42 03/06/18 08:45 03/06/18 09:00 Temperature Pulse Rate 90 92 H Respiratory Rate 20 20 17 Blood Pressure 102/65 108/69 Pulse Oximetry 96 96 97 03/06/18 09:15 03/06/18 09:30 03/06/18 09:45 Temperature Pulse Rate 92 H 92 H 92 H Respiratory Rate 20 16 20 Blood Pressure 106/69 102/64 98/62 L Pulse Oximetry 97 94 L 95 03/06/18 10:00 03/06/18 10:15 03/06/18 10:30 Temperature Pulse Rate 92 H 92 H 92 H Respiratory Rate 14 20 9 L Blood Pressure 97/66 L 103/67 91/58 L Pulse Oximetry 94 L 95 93 L 03/06/18 10:45 03/06/18 11:00 03/06/18 11:15 Temperature Pulse Rate 92 H 92 H 94 H Respiratory Rate 12 17 2 L Blood Pressure 81/56 L 82/59 L 89/59 L Pulse Oximetry 94 L 93 L 97 03/06/18 11:20 03/06/18 11:30 03/06/18 11:45 Temperature Pulse Rate 93 H 92 H Respiratory Rate 20 0 L 0 L Blood Pressure 83/53 L 84/51 L Pulse Oximetry 94 L 96 95 03/06/18 12:00 03/06/18 12:30 03/06/18 12:45 Temperature 98.6 F Pulse Rate 97 H 93 H 94 H Respiratory Rate 20 17 20 Blood Pressure 93/58 L 109/58 L 97/58 L Pulse Oximetry 95 95 96 03/06/18 13:00 03/06/18 13:15 03/06/18 13:30 Temperature Pulse Rate 93 H 93 H 92 H Respiratory Rate 20 20 20 Blood Pressure 91/56 L 99/61 L 87/55 L Pulse Oximetry 95 95 96 03/06/18 13:45 03/06/18 14:00 03/06/18 14:15 Temperature 99.1 F Pulse Rate 94 H 95 H 97 H Respiratory Rate 6 L 20 9 L Blood Pressure 94/59 L 102/57 L 100/58 L Pulse Oximetry 96 94 L 99 03/06/18 14:30 03/06/18 14:45 03/06/18 14:55 Temperature Pulse Rate 98 H 97 H 97 H Respiratory Rate 20 18 23 Blood Pressure 123/71 112/73 115/53 L Pulse Oximetry 100 03/06/18 15:00 03/06/18 15:08 03/06/18 15:15 Temperature Pulse Rate 97 H 94 H 96 H Respiratory Rate 22 20 25 H Blood Pressure 104/60 100/59 L Pulse Oximetry 97 92 L 03/06/18 15:16 03/06/18 15:30 03/06/18 15:45 Temperature Pulse Rate 94 H 93 H Respiratory Rate 15 17 Blood Pressure 96/51 L 92/53 L Pulse Oximetry 100 92 L 93 L 03/06/18 16:00 03/06/18 16:15 03/06/18 16:30 Temperature Pulse Rate 97 H 93 H 93 H Respiratory Rate 12 14 17 Blood Pressure 100/57 L 98/58 L 100/59 L Pulse Oximetry 94 L 92 L 94 L 03/06/18 16:45 03/06/18 17:00 03/06/18 17:15 Temperature Pulse Rate 91 H 98 H 93 H Respiratory Rate 17 32 H 20 Blood Pressure 100/61 112/60 106/58 L Pulse Oximetry 95 91 L 03/06/18 17:30 03/06/18 17:45 03/06/18 18:00 Temperature Pulse Rate 91 H 91 H 88 Respiratory Rate 6 L 20 20 Blood Pressure 96/59 L 92/55 L 91/57 L Pulse Oximetry 95 96 92 L 03/06/18 18:15 Temperature Pulse Rate 87 Respiratory Rate 20 Blood Pressure 92/55 L Pulse Oximetry 95 Intake & Output 03/05/18 03/06/18 03/06/18 18:59 06:59 18:59 Intake Total 1536 / 1536 3050 / 3050 2924 / 2924 Output Total 800 / 800 600 / 600 500 / 500 Balance 736 / 736 2450 / 2450 2424 / 2424 Weight 92.6 kg Intake: IV 936 / 936 2250 / 2250 1898 / 1898 D5W Inj 1,000 ML @ 100 mls/hr 1000 / 1000 806 / 806 IV.CONT .Q10H KRISTIE Rx#:[id number] Versed Inj 50 mg In 50 ml @ 2 57 / 57 MG/HR 2 mls/hr IV.CONT TITRATE PRN Rx#:[id number] NS Inj 1,000 ML @ 100 mls/hr IV 686 / 686 .CONT .Q10H KRISTIE Rx#:[id number] Cubicin Inj 800 MG In NS Inj 100 / 100 100 ML @ 200 mls/hr IV.SIG Q24H KRISTIE Rx#:[id number] Levaquin 750 mg Premix Inj 150 150 / 150 150 / 150 ML @ 100 mls/hr IV.SIG Q24H KRISTIE Rx#:[id number] Zyvox 600 mg Premix 300 ML @ 600 / 600 300 / 300 300 mls/hr IV.SIG Q12H KRISTIE Rx#: [id number] Levophed-Dextrose 4 mg/250 ml 135 / 135 Drip 4 mg In 250 ml @ 2 MCG/MIN 7.5 mls/hr IV.SIG TITRATE PRN Rx#:[id number] Zosyn 4.5 GM Premix 4.5 gm In 100 / 100 300 / 300 200 / 200 100 ml @ 200 mls/hr IV.SIG Q6H KRISTIE Rx#:[id number] fentaNYL 10 mcg/mL Premix Drip 250 / 250 250 / 250 2,500 mcg In 250 ml @ 50 MCG/HR 5 mls/hr IV.SIG TITRATE PRN Rx #:[id number] Tube Feeding 246 / 246 Tube Irrigant 180 / 180 Water Bolus Amount 600 / 600 600 / 600 Intake (Blood Product) Amt 800 / 800 Rbc As-3 Leukoreduced Unit 400 / 400 [id number] Rbc As-3 Leukoreduced Unit 400 / 400 [id number] Output: Stool 0 / 0 Urine Amount (Catheter) 800 / 800 600 / 600 500 / 500 Indwelling Urethral Catheter 800 / 800 600 / 600 500 / 500 Other: Date of Last Bowel Movement 03/05/18 03/05/18 03/05/18 # Bowel Movements 2 0 GENERAL: WBWN AA male on Vent SKIN: Warm and dry. HEAD: Normocephalic. EYES: No scleral icterus. No injection or drainage. NECK: Supple, trachea midline. No JVD or lymphadenopathy. CARDIOVASCULAR: Regular rate and rhythm without murmurs, gallops, or rubs. RESPIRATORY: Breath sounds equal bilaterally. No accessory muscle use. GASTROINTESTINAL: Abdomen soft, non-tender, nondistended. MUSCULOSKELETAL: No cyanosis, or edema. Left BKA BACK: Nontender without obvious deformity. No CVA tenderness. - Urinary Catheter Management Indwelling Urethral Catheter Cath placed during this visit: yes Reason for continuing: Acute urinary retention Insertion date: 03/05/18 Insertion time: 08:00 Assessment and Plan - Plan IMPRESSION: 1. Bilateral lung infiltrates. 2. Small pleural effusion. 3. Osteomyelitis of both feet. 4. Diabetes mellitus. 5. Cerebrovascular accident with left-sided contracture. 6. VDRF 7. S/P cardiopulm arrest. PLAN: Vent Support sedation with Fentanyl Cont Abx Aerosol nebs monitor Pl eff Check bronch cultures
--- NOTE | 2018-03-06 19:35 | P.PNID ---
Subjective Remarks: briefly on pressors, now off BP low in 80/50 + diarrhea remains on vent CT with diffuse b/l consolidations and effusions growing GNBs from sputum sp thoracocenthesis: bloody, but not much WBC, clx P Antibiotics: zosyn levaquin zyvox Allergies/Adverse Reactions: Allergies No Known Allergies Allergy (Unknown, Uncoded 01/06/18 21:04) Objective Vital Signs 03/05/18 20:00 03/05/18 20:27 03/05/18 20:45 Temperature 99.2 F 99.1 F 99.5 F Pulse Rate 92 H 92 H 92 H Respiratory Rate 18 20 20 Blood Pressure 104/60 94/58 L 99/60 L Pulse Oximetry 99 99 96 03/05/18 20:52 03/05/18 20:53 03/05/18 21:45 Temperature 99.2 F Pulse Rate 93 H 93 H Respiratory Rate 20 20 20 Blood Pressure 97/57 L Pulse Oximetry 99 95 03/05/18 22:00 03/05/18 22:08 03/06/18 00:00 Temperature 98.8 F 99.4 F Pulse Rate 92 H 94 H 93 H Respiratory Rate 20 20 Blood Pressure 97/58 L 102/62 Pulse Oximetry 95 97 03/06/18 00:32 03/06/18 02:00 03/06/18 03:30 Temperature Pulse Rate 86 88 Respiratory Rate 20 0 L Blood Pressure 101/62 Pulse Oximetry 96 95 03/06/18 03:45 03/06/18 04:00 03/06/18 04:03 Temperature 99.4 F Pulse Rate 87 87 Respiratory Rate 2 L 0 L 20 Blood Pressure 105/62 94/57 L Pulse Oximetry 96 96 94 L 03/06/18 04:15 03/06/18 04:30 03/06/18 04:45 Temperature Pulse Rate 87 87 88 Respiratory Rate 0 L 0 L 0 L Blood Pressure 93/58 L 91/54 L 92/61 L Pulse Oximetry 96 95 96 03/06/18 05:00 03/06/18 05:15 03/06/18 05:30 Temperature Pulse Rate 89 87 87 Respiratory Rate 0 L 0 L 0 L Blood Pressure 95/63 L 93/59 L 90/59 L Pulse Oximetry 95 95 95 03/06/18 05:45 03/06/18 06:00 03/06/18 06:15 Temperature Pulse Rate 87 87 86 Respiratory Rate 0 L 20 20 Blood Pressure 93/57 L 98/63 L 98/62 L Pulse Oximetry 96 95 94 L 03/06/18 06:30 03/06/18 06:45 03/06/18 07:00 Temperature Pulse Rate 85 86 86 Respiratory Rate 20 20 16 Blood Pressure 99/65 L 101/66 105/71 Pulse Oximetry 91 L 95 93 L 03/06/18 07:15 03/06/18 07:30 03/06/18 07:45 Temperature Pulse Rate 88 87 87 Respiratory Rate 20 8 L 20 Blood Pressure 99/65 L 96/63 L 96/66 L Pulse Oximetry 93 L 94 L 92 L 03/06/18 08:00 03/06/18 08:15 03/06/18 08:30 Temperature 98.9 F Pulse Rate 89 91 H 89 Respiratory Rate 9 L 15 15 Blood Pressure 100/69 96/62 L 111/67 Pulse Oximetry 95 93 L 95 03/06/18 08:42 03/06/18 08:45 03/06/18 09:00 Temperature Pulse Rate 90 92 H Respiratory Rate 20 20 17 Blood Pressure 102/65 108/69 Pulse Oximetry 96 96 97 03/06/18 09:15 03/06/18 09:30 03/06/18 09:45 Temperature Pulse Rate 92 H 92 H 92 H Respiratory Rate 20 16 20 Blood Pressure 106/69 102/64 98/62 L Pulse Oximetry 97 94 L 95 03/06/18 10:00 03/06/18 10:15 03/06/18 10:30 Temperature Pulse Rate 92 H 92 H 92 H Respiratory Rate 14 20 9 L Blood Pressure 97/66 L 103/67 91/58 L Pulse Oximetry 94 L 95 93 L 03/06/18 10:45 03/06/18 11:00 03/06/18 11:15 Temperature Pulse Rate 92 H 92 H 94 H Respiratory Rate 12 17 2 L Blood Pressure 81/56 L 82/59 L 89/59 L Pulse Oximetry 94 L 93 L 97 03/06/18 11:20 03/06/18 11:30 03/06/18 11:45 Temperature Pulse Rate 93 H 92 H Respiratory Rate 20 0 L 0 L Blood Pressure 83/53 L 84/51 L Pulse Oximetry 94 L 96 95 03/06/18 12:00 08/29/18 12:30 03/06/18 12:45 Temperature 98.6 F Pulse Rate 97 H 93 H 94 H Respiratory Rate 20 17 20 Blood Pressure 93/58 L 109/58 L 97/58 L Pulse Oximetry 95 95 96 03/06/18 13:00 03/06/18 13:15 03/06/18 13:30 Temperature Pulse Rate 93 H 93 H 92 H Respiratory Rate 20 20 20 Blood Pressure 91/56 L 99/61 L 87/55 L Pulse Oximetry 95 95 96 03/06/18 13:45 03/06/18 14:00 03/06/18 14:15 Temperature 99.1 F Pulse Rate 94 H 95 H 97 H Respiratory Rate 6 L 20 9 L Blood Pressure 94/59 L 102/57 L 100/58 L Pulse Oximetry 96 94 L 99 03/06/18 14:30 03/06/18 14:45 03/06/18 14:55 Temperature Pulse Rate 98 H 97 H 97 H Respiratory Rate 20 18 23 Blood Pressure 123/71 112/73 115/53 L Pulse Oximetry 100 03/06/18 15:00 03/06/18 15:08 03/06/18 15:15 Temperature Pulse Rate 97 H 94 H 96 H Respiratory Rate 22 20 25 H Blood Pressure 104/60 100/59 L Pulse Oximetry 97 92 L 03/06/18 15:16 03/06/18 15:30 03/06/18 15:45 Temperature Pulse Rate 94 H 93 H Respiratory Rate 15 17 Blood Pressure 96/51 L 92/53 L Pulse Oximetry 100 92 L 93 L 03/06/18 16:00 03/06/18 16:15 03/06/18 16:30 Temperature Pulse Rate 97 H 93 H 93 H Respiratory Rate 12 14 17 Blood Pressure 100/57 L 98/58 L 100/59 L Pulse Oximetry 94 L 92 L 94 L 03/06/18 16:45 03/06/18 17:00 03/06/18 17:15 Temperature Pulse Rate 91 H 98 H 93 H Respiratory Rate 17 32 H 20 Blood Pressure 100/61 112/60 106/58 L Pulse Oximetry 95 91 L 03/06/18 17:30 03/06/18 17:45 03/06/18 18:00 Temperature Pulse Rate 91 H 91 H 88 Respiratory Rate 6 L 20 20 Blood Pressure 96/59 L 92/55 L 91/57 L Pulse Oximetry 95 96 92 L 03/06/18 18:15 Temperature Pulse Rate 87 Respiratory Rate 20 Blood Pressure 92/55 L Pulse Oximetry 95 Intake & Output 03/06/18 03/06/18 03/07/18 06:59 18:59 06:59 Intake Total 3050 / 3050 3174 / 3174 Output Total 600 / 600 500 / 500 Balance 2450 / 2450 2674 / 2674 Weight 92.6 kg Intake: IV 2250 / 2250 2148 / 2148 D5W Inj 1,000 ML @ 100 mls/hr 1000 / 1000 806 / 806 IV.CONT .Q10H KRISTIE Rx#:[id number] Versed Inj 50 mg In 50 ml @ 2 57 / 57 MG/HR 2 mls/hr IV.CONT TITRATE PRN Rx#:[id number] Cubicin Inj 800 MG In NS Inj 100 / 100 100 ML @ 200 mls/hr IV.SIG Q24H KRISTIE Rx#:[id number] Levaquin 750 mg Premix Inj 150 150 / 150 ML @ 100 mls/hr IV.SIG Q24H KRISTIE Rx#:[id number] Zyvox 600 mg Premix 300 ML @ 600 / 600 300 / 300 300 mls/hr IV.SIG Q12H KRISTIE Rx#: [id number] Levophed-Dextrose 4 mg/250 ml 135 / 135 Drip 4 mg In 250 ml @ 2 MCG/MIN 7.5 mls/hr IV.SIG TITRATE PRN Rx#:[id number] Zosyn 4.5 GM Premix 4.5 gm In 300 / 300 200 / 200 100 ml @ 200 mls/hr IV.SIG Q6H KRISTIE Rx#:[id number] fentaNYL 10 mcg/mL Premix Drip 250 / 250 250 / 250 2,500 mcg In 250 ml @ 50 MCG/HR 5 mls/hr IV.SIG TITRATE PRN Rx #:[id number] Tube Feeding 246 / 246 Tube Irrigant 180 / 180 Water Bolus Amount 600 / 600 Intake (Blood Product) Amt 800 / 800 Rbc As-3 Leukoreduced Unit 400 / 400 [id number] Rbc As-3 Leukoreduced Unit 400 / 400 [id number] Output: Stool 0 / 0 Urine Amount (Catheter) 600 / 600 500 / 500 Indwelling Urethral Catheter 600 / 600 500 / 500 Other: Date of Last Bowel Movement 03/05/18 03/05/18 # Bowel Movements 0 03/06/18 15:00 Bronchial Washings - Left Lower Lobe Fungal Smear - Pending 03/06/18 15:00 Bronchial Washings - Left Lower Lobe Fungal Culture - Pending 03/06/18 15:00 Bronchial Washings - Left Lower Lobe Acid Fast Bacilli Smear - Pending 03/06/18 15:00 Bronchial Washings - Left Lower Lobe Mycobacterial Culture - Pending 03/06/18 14:41 Fluid - Pleural fluid Gram Stain - Pending 03/06/18 14:41 Fluid - Pleural fluid Body Fluid Culture - Pending 03/06/18 15:00 Bronchial - Left Lower Lobe Gram Stain - Pending 03/06/18 15:00 Bronchial - Left Lower Lobe Bronchial Culture - Pending 03/05/18 11:25 Clean Catch Urine Urine Culture - Preliminary No growth in 24 hours 03/05/18 08:00 Sputum - Endotracheal Gram Stain - Final 03/05/18 08:00 Sputum - Endotracheal Sputum Culture - Preliminary gram negative rods 03/05/18 18:25 Blood - Peripheral Aerobic Blood Culture - Preliminary No growth in 1 day 03/05/18 18:25 Blood - Peripheral Anaerobic Blood Culture - Preliminary No growth in 1 day 03/05/18 18:10 Blood - Peripheral Aerobic Blood Culture - Preliminary No growth in 1 day 03/05/18 18:10 Blood - Peripheral Anaerobic Blood Culture - Preliminary No growth in 1 day 03/03/18 19:53 Blood - Peripheral Aerobic Blood Culture - Preliminary No growth in 3 days 03/03/18 19:53 Blood - Peripheral Anaerobic Blood Culture - Preliminary No growth in 3 days 03/05/18 14:00 Stool Occult Blood - Final Hemoccult negative Lab - Hematology Results 03/05/18 03/05/18 03/05/18 05:35 07:53 13:58 WBC 4.3 3.7 L 3.1 L RBC 2.44 L 2.33 L 2.32 L Hgb 7.5 L 7.1 L 6.9 L* Hct 24.5 L 23.4 L 22.7 L MCV 100.6 H D 100.5 H 97.7 MCH 30.6 30.3 29.8 MCHC 30.4 L 30.2 L 30.5 L RDW 18.0 H 18.2 H 17.9 H Plt Count 138 L 139 L 134 L MPV 9.8 9.7 9.4 Prelim Diff (Auto) Slide review pending Slide review pending Neut % (Auto) 69.6 73.7 H 78.2 H Lymph % (Auto) 17.4 15.2 9.6 Kidder % (Auto) 11.4 H 9.4 H 11.6 H Eos % (Auto) 1.3 1.4 0.4 Baso % (Auto) 0.3 0.3 0.2 Neut # (Auto) 3.0 2.7 2.4 Lymph # (Auto) 0.8 L 0.6 L 0.3 L Kidder # (Auto) 0.5 0.3 0.4 Eos # (Auto) 0.1 0.1 0.0 Baso # (Auto) 0.0 0.0 0.0 WBC Differential . Manual diff final Manual diff final Seg Neuts % (Manual) 69 44 Band Neuts % (Manual) 11 H 31 H Lymphocytes % (Manual) 10 17 Monocytes % (Manual) 6 7 Eosinophils % (Manual) 2 1 Metamyelocytes % (Man) 1 Myelocytes % (Man) 1 H Abs Neuts (Manual) 3.0 2.3 Differential Comment Auto diff final . . Platelet Estimate Low L Low L Platelet Morphology Normal Enlarged H Basophilic Stippling Heavy H Ovalocytes 1+ H 03/06/18 04:50 WBC 7.1 D RBC 2.53 L Hgb 7.9 L Hct 23.2 L MCV 91.5 D MCH 31.1 MCHC 34.0 RDW 17.1 Plt Count 127 L MPV 9.0 Prelim Diff (Auto) Neut % (Auto) 79.9 H Lymph % (Auto) 10.2 Kidder % (Auto) 9.1 H Eos % (Auto) 0.4 Baso % (Auto) 0.4 Neut # (Auto) 5.7 Lymph # (Auto) 0.7 L Kidder # (Auto) 0.6 Eos # (Auto) 0.0 Baso # (Auto) 0.0 WBC Differential . Seg Neuts % (Manual) Band Neuts % (Manual) Lymphocytes % (Manual) Monocytes % (Manual) Eosinophils % (Manual) Metamyelocytes % (Man) Myelocytes % (Man) Abs Neuts (Manual) Differential Comment Auto diff final Platelet Estimate Platelet Morphology Basophilic Stippling Ovalocytes Lab - Chemistry Results 03/04/18 03/04/18 03/05/18 18:16 20:11 05:35 Sodium 153 H Potassium 6.1 H D Chloride 119 H Carbon Dioxide 28.3 Anion Gap 6 BUN 58 H Creatinine 1.68 H Estimated GFR 53 L POC Glucose 209 H Random Glucose 125 H Lactic Acid Calcium 7.8 L Total Bilirubin AST ALT Alkaline Phosphatase Total Creatine Kinase 80 Troponin I Total Protein Albumin 03/05/18 03/05/18 03/05/18 07:53 09:24 09:59 Sodium 156 H* Potassium 5.3 H D Chloride 120 H Carbon Dioxide 29.7 Anion Gap 6 BUN 61 H Creatinine 1.74 H Estimated GFR 51 L POC Glucose 152 H Random Glucose 157 H Lactic Acid Calcium 8.1 L Total Bilirubin 0.5 AST 21 ALT 23 Alkaline Phosphatase 107 Total Creatine Kinase 91 Troponin I Total Protein 7.0 D Albumin 2.2 L D 03/05/18 03/05/18 03/05/18 09:59 09:59 11:42 Sodium Potassium Chloride Carbon Dioxide Anion Gap BUN Creatinine Estimated GFR POC Glucose 144 H Random Glucose Lactic Acid 1.0 Calcium Total Bilirubin AST ALT Alkaline Phosphatase Total Creatine Kinase Troponin I 0.08 H Total Protein Albumin 03/05/18 03/05/18 03/05/18 13:58 17:08 18:20 Sodium 158 H* Potassium 4.6 Chloride 122 H Carbon Dioxide 27.8 Anion Gap 8 BUN 63 H Creatinine 1.78 H Estimated GFR 50 L POC Glucose 120 H Random Glucose 113 H Lactic Acid Calcium 8.3 L Total Bilirubin AST ALT Alkaline Phosphatase Total Creatine Kinase Troponin I 0.09 H Total Protein Albumin 03/05/18 03/05/18 03/06/18 20:37 23:46 04:50 Sodium 152 H Potassium 3.9 Chloride 116 H Carbon Dioxide 27.8 Anion Gap 8 BUN 61 H Creatinine 1.93 H Estimated GFR 45 L POC Glucose 153 H Random Glucose 77 Lactic Acid Calcium 7.9 L Total Bilirubin 0.9 AST 34 ALT 24 Alkaline Phosphatase 80 Total Creatine Kinase Troponin I 0.07 H Total Protein 6.6 Albumin 2.2 L 03/06/18 03/06/18 03/06/18 07:57 11:54 15:57 Sodium Potassium Chloride Carbon Dioxide Anion Gap BUN Creatinine Estimated GFR POC Glucose 95 84 97 Random Glucose Lactic Acid Calcium Total Bilirubin AST ALT Alkaline Phosphatase Total Creatine Kinase Troponin I Total Protein Albumin Imaging: ITS Impressions Abdomen/Pelvis CT 02/17/18 00:00 CONCLUSION: 1. Small bilateral pleural effusions and bilateral lower lung opacity again seen. 2. Mild splenomegaly again seen. 3. Gastrostomy tube in place. 4. No evidence of bowel dilatation. 5. Heterotopic ossification about the left hip again seen. 6. Calcified adrenal glands again seen. 7. Enlarged inguinal lymph nodes again seen. Venous Doppler Study 02/18/18 00:00 CONCLUSION: 1. No DVT or SVT. 2. 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 This measures 3.6 x 2.2 x 2.2 cm and is predominantly thrombosed with a small, 6 x 9 mm patent component showing biphasic flow. Central Venous Line 02/22/18 00:00 CONCLUSION: 1. Uncomplicated tunneled central venous Power PICC line placement. 2. The PICC line can be used immediately. Foot MRI 02/22/18 00:00 CONCLUSION: 1. Findings most characteristic of early osteomyelitis at the medial aspect of the first metatarsal head and a tiny focus of probable osteomyelitis at the medial corner of the proximal phalanx great toe. Mild surrounding cellulitis. 2. Previous partial amputation fifth metatarsal. Extremity Arterial Study 02/26/18 00:00 CONCLUSION: 1. Normal ABIs bilaterally. Chest CT 03/05/18 00:00 CONCLUSION: 1. Bilateral effusions and diffuse bilateral consolidation. Acuna Line Insertion 03/05/18 00:00 CONCLUSION: 1. Uncomplicated Acuna catheter placement as above. Chest X-Ray 03/06/18 14:57 CONCLUSION: Diffuse edema versus pneumonia. There is no evidence of pneumothorax. Physical Exam: GENERAL: NAD SKIN: Warm and dry. HEAD: Atraumatic. Normocephalic. EYES: Pupils equal and round. No scleral icterus. No injection or drainage. ENT: No nasal bleeding or discharge. Mucous membranes pink and moist. CARDIOVASCULAR: Regular rate and rhythm. RESPIRATORY: No accessory muscle use. rhonchi to auscultation. Breath sounds equal bilaterally. GASTROINTESTINAL: Abdomen soft, non-tender, distended. Hepatic and splenic margins not palpable. PEG in place, tolerates TF @ 50 cc/hr Incontinent of brown liquid stool MUSCULOSKELETAL: Extremities without clubbing, cyanosis, or edema. No obvious deformities. B/l feet with dressings in place + prominent edema NEUROLOGICAL: lethargic, arousable and alert. No obvious cranial nerve deficits. L side hemiplegia PSYCHIATRIC: unable to assess Assessment and Plan - Plan B/L foot osteomyelitis MRSA, on vancomycin - trough level too high Anemia likely 2/2 vanco Mild CEDRIC, likely 2/2 vanco - pt has 2 adverse effects from vancomycin so far, I will recommend to avoid vancomycin Aspiration PNA - growing GNBs acute VDRF Hypotensive ? sepsis Critical unstable Diarreha, C.diff negative check blood clx check sptum clx cont zyvox cont zosyn, levaquin CBC dw Dr Aniya lin RN
[2018-03-07] MEDS: Insulin NovoLIN Regular Correctional Sugar Inj SQ SCH ×6 (01:25→21:04)
[2018-03-07] MEDS: Dextrose 50% in Water 50 ML Vial IV.PUSH PRN ×4 (01:25→21:16)
[2018-03-07] MEDS: fentaNYL 10 mcg/mL Premix Drip 2,500 MCG/250 ML BAG IV.SIG PRN (04:27)
[2018-03-07] MEDS: Piperacil/Tazo 4.5 GM Premix 4.5 GM/100 ML BAG IV.SIG SCH ×2 (04:28→09:12)
[2018-03-07] MEDS: Chlorhexidine Gluconate 2% 1 Pack (2 Cloths) TOPICAL SCH (04:33)
--- NOTE | 2018-03-07 04:38 | XR ---
EXAM DATE: 03/07/2018 4:30 AM EDT AGE/SEX: 47 years / Male INDICATIONS: Shortness of breath, possible pulmonary disease. CLINICAL DATA: This is the patient's subsequent encounter. Patient reports that signs and symptoms h ave been present for 1 week and indicates a pain score of Nonresponsive. MEDICAL/SURGICAL HISTORY: . Cerebrovascular disease. Hypertension. Diabetes. anemia . . G tube . [place] [facility] [place]. . FINDINGS: Diffuse but basilar predominant parenchymal consolidation of both lungs again noted and not significa ntly changed. Small bilateral pleural effusions are present, also similar to before. No pneumothorax demonstrated. Heart size stable, upper limits of normal. Median sternotomy changes are again noted. The uppermost m edian sternotomy wire is fractured, unchanged. Endotracheal tube tip is approximately 3 cm above the luz maria. There is a right internal jugular centr al venous catheter with tip in the superior vena cava. CONCLUSION: No significant change. Diffuse bilateral parenchymal consolidation and small pleural effusions simila r to before. Electronically signed by: Paul Smith MD 03/07/2018 4:37 AM EDT
[2018-03-07 05:13] LABS: Baso % (Auto) 0.2 % (0.0-2.0); Eos # (Auto) 0.1 th/mm3 (0.0-0.4); Eos % (Auto) 1.3 % (0.0-4.0); Hematocrit 22.4 % (39.0-51.0); Hemoglobin 7.5 gm/dL (13.0-17.0); Lymph # (Auto) 0.9 th/mm3 (1.0-4.8); Lymph % (Auto) 16.9 % (9.0-44.0); Mean Corpuscular HGB Conc 33.6 % (32.0-36.0); Mean Corpuscular Hemoglobin 30.8 pg (27.0-34.0); Mean Corpuscular Volume 91.8 fL (80.0-100.0); Mean Platelet Volume 10.2 fL (7.0-11.0); Mono # (Auto) 0.4 th/mm3 (0.0-0.9); Mono % (Auto) 8.4 % (0.0-8.0); Neut # (Auto) 3.8 th/mm3 (1.8-7.7); Neut % (Auto) 73.2 % (16.0-70.0); Platelet Count 118 th/mm3 (150-450); Red Blood Count 2.44 mil/mm3 (4.50-5.90); Red Cell Distribution Width 16.9 % (11.6-17.2); White Blood Count 5.2 th/mm3 (4.0-11.0)
[2018-03-07 05:39] LABS: Alanine Aminotransferase 25 U/L (12-78); Alkaline Phosphatase 72 U/L (45-117); Anion Gap 10 meq/L (5-15); Aspartate Aminotransferase 59 U/L (15-37); Blood Urea Nitrogen 61 mg/dL (7-18); Calcium 7.6 mg/dL (8.5-10.1); Carbon Dioxide 27.5 meq/L (21.0-32.0); Chloride 112 meq/L (98-107); Glomerular Filtration Rate 34 mL/min (>89); Glucose,Random 138 mg/dL (74-106); Sodium 149 meq/L (136-145); Total Protein 6.7 g/dL (6.4-8.2)
[2018-03-07] MEDS: levETIRAcetam 500 MG Tablet G-TUBE SCH ×3 (09:11→18:02)
[2018-03-07] MEDS: Ascorbic Acid 500 MG Tablet G-TUBE SCH ×2 (09:12→20:58)
[2018-03-07] MEDS: Senna/Docusate Sodium 8.6/50 MG Tablet G-TUBE SCH ×2 (09:12→20:59)
--- NOTE | 2018-03-07 11:26 | P.PNID ---
Subjective Remarks: off pressors, on vent + diarrhea growing ESBL from BAL pleural fluid w/o org's sp thoracocenthesis: bloody, but not much WBC, clx P Antibiotics: zosyn levaquin zyvox Allergies/Adverse Reactions: Allergies No Known Allergies Allergy (Unknown, Uncoded 01/06/18 21:04) Objective Vital Signs 03/06/18 11:30 03/06/18 11:45 03/06/18 12:00 Temperature 98.6 F Pulse Rate 93 H 92 H 97 H Respiratory Rate 0 L 0 L 20 Blood Pressure 83/53 L 84/51 L 93/58 L Pulse Oximetry 96 95 95 03/06/18 12:30 03/06/18 12:45 03/06/18 13:00 Temperature Pulse Rate 93 H 94 H 93 H Respiratory Rate 17 20 20 Blood Pressure 109/58 L 97/58 L 91/56 L Pulse Oximetry 95 96 95 03/06/18 13:15 03/06/18 13:30 03/06/18 13:45 Temperature Pulse Rate 93 H 92 H 94 H Respiratory Rate 20 20 6 L Blood Pressure 99/61 L 87/55 L 94/59 L Pulse Oximetry 95 96 96 03/06/18 14:00 03/06/18 14:15 03/06/18 14:30 Temperature 99.1 F Pulse Rate 95 H 97 H 98 H Respiratory Rate 20 9 L 20 Blood Pressure 102/57 L 100/58 L 123/71 Pulse Oximetry 94 L 99 03/06/18 14:45 03/06/18 14:55 03/06/18 15:00 Temperature Pulse Rate 97 H 97 H 97 H Respiratory Rate 18 23 22 Blood Pressure 112/73 115/53 L 104/60 Pulse Oximetry 100 97 03/06/18 15:08 03/06/18 15:15 03/06/18 15:16 Temperature Pulse Rate 94 H 96 H Respiratory Rate 20 25 H Blood Pressure 100/59 L Pulse Oximetry 92 L 100 03/06/18 15:30 03/06/18 15:45 03/06/18 16:00 Temperature Pulse Rate 94 H 93 H 97 H Respiratory Rate 15 17 12 Blood Pressure 96/51 L 92/53 L 100/57 L Pulse Oximetry 92 L 93 L 94 L 03/06/18 16:15 03/06/18 16:30 03/06/18 16:45 Temperature Pulse Rate 93 H 93 H 91 H Respiratory Rate 14 17 17 Blood Pressure 98/58 L 100/59 L 100/61 Pulse Oximetry 92 L 94 L 95 03/06/18 17:00 03/06/18 17:15 03/06/18 17:30 Temperature Pulse Rate 98 H 93 H 91 H Respiratory Rate 32 H 20 6 L Blood Pressure 112/60 106/58 L 96/59 L Pulse Oximetry 91 L 95 03/06/18 17:45 03/06/18 18:00 03/06/18 18:15 Temperature Pulse Rate 91 H 88 87 Respiratory Rate 20 20 20 Blood Pressure 92/55 L 91/57 L 92/55 L Pulse Oximetry 96 92 L 95 03/06/18 20:00 03/06/18 20:22 03/06/18 20:25 Temperature 98.6 F Pulse Rate 91 H 95 H Respiratory Rate 20 20 20 Blood Pressure 93/56 L Pulse Oximetry 96 92 L 03/06/18 22:00 03/07/18 00:00 03/07/18 00:55 Temperature 98.6 F Pulse Rate 98 H 100 H Respiratory Rate 20 20 Blood Pressure 100/60 Pulse Oximetry 92 L 92 L 03/07/18 02:00 03/07/18 04:00 03/07/18 04:40 Temperature 98.9 F Pulse Rate 101 H 101 H Respiratory Rate 20 20 Blood Pressure 111/60 Pulse Oximetry 92 L 94 L 03/07/18 04:45 03/07/18 05:00 03/07/18 05:15 Temperature Pulse Rate 100 H 98 H 96 H Respiratory Rate 0 L 0 L 0 L Blood Pressure 98/54 L 93/55 L 90/50 L Pulse Oximetry 93 L 92 L 93 L 03/07/18 05:30 03/07/18 05:45 03/07/18 06:00 Temperature Pulse Rate 94 H 94 H 94 H Respiratory Rate 0 L 0 L 0 L Blood Pressure 97/53 L 106/57 L 105/62 Pulse Oximetry 93 L 93 L 94 L 03/07/18 06:15 03/07/18 06:30 03/07/18 06:45 Temperature Pulse Rate 95 H 93 H 93 H Respiratory Rate 0 L 0 L 0 L Blood Pressure 106/60 102/60 108/67 Pulse Oximetry 93 L 93 L 91 L 03/07/18 07:00 03/07/18 07:15 03/07/18 07:30 Temperature Pulse Rate 93 H 97 H 97 H Respiratory Rate 0 L 2 L 21 Blood Pressure 102/56 L 110/57 L 104/59 L Pulse Oximetry 94 L 94 L 94 L 03/07/18 07:45 03/07/18 08:00 03/07/18 08:15 Temperature Pulse Rate 94 H 94 H 95 H Respiratory Rate 22 22 18 Blood Pressure 99/57 L 95/53 L 105/61 Pulse Oximetry 94 L 95 90 L 03/07/18 08:30 03/07/18 08:45 03/07/18 09:00 Temperature Pulse Rate 97 H 96 H 92 H Respiratory Rate 20 20 20 Blood Pressure 106/60 97/58 L 95/55 L Pulse Oximetry 85 L 94 L 94 L 03/07/18 09:14 03/07/18 09:15 03/07/18 09:30 Temperature Pulse Rate 100 H 98 H 97 H Respiratory Rate 20 20 20 Blood Pressure 103/58 L 103/59 L Pulse Oximetry 95 95 94 L 03/07/18 09:45 03/07/18 10:00 03/07/18 10:15 Temperature Pulse Rate 97 H 96 H 92 H Respiratory Rate 20 20 20 Blood Pressure 96/55 L 93/53 L 132/68 Pulse Oximetry 93 L 93 L 94 L 03/07/18 10:30 03/07/18 10:45 Temperature Pulse Rate 91 H 93 H Respiratory Rate 20 20 Blood Pressure 114/64 110/71 Pulse Oximetry 94 L 94 L Intake & Output 03/06/18 03/07/18 03/07/18 18:59 06:59 18:59 Intake Total 3174 / 3174 1861 / 1861 Output Total 500 / 500 500 / 500 Balance 2674 / 2674 1361 / 1361 Weight 94.3 kg Intake: IV 2148 / 2148 750 / 750 D5W Inj 1,000 ML @ 100 mls/hr 806 / 806 IV.CONT .Q10H [facility] Rx#:[id number] Versed Inj 50 mg In 50 ml @ 2 57 / 57 MG/HR 2 mls/hr IV.CONT TITRATE PRN Rx#:[id number] Levaquin 750 mg Premix Inj 150 150 / 150 ML @ 100 mls/hr IV.SIG Q24H [facility] Rx#:[id number] Zyvox 600 mg Premix 300 ML @ 300 / 300 300 / 300 300 mls/hr IV.SIG Q12H [facility] Rx#: [id number] Levophed-Dextrose 4 mg/250 ml 135 / 135 Drip 4 mg In 250 ml @ 2 MCG/MIN 7.5 mls/hr IV.SIG TITRATE PRN Rx#:[id number] Zosyn 4.5 GM Premix 4.5 gm In 200 / 200 200 / 200 100 ml @ 200 mls/hr IV.SIG Q6H [facility] Rx#:[id number] fentaNYL 10 mcg/mL Premix Drip 250 / 250 250 / 250 2,500 mcg In 250 ml @ 50 MCG/HR 5 mls/hr IV.SIG TITRATE PRN Rx #:[id number] Tube Feeding 246 / 246 331 / 331 Tube Irrigant 180 / 180 180 / 180 Water Bolus Amount 600 / 600 600 / 600 Output: Stool 0 / 0 0 / 0 Urine Amount (Catheter) 500 / 500 500 / 500 Indwelling Urethral Catheter 500 / 500 500 / 500 Other: Date of Last Bowel Movement 03/05/18 03/05/18 03/05/18 # Bowel Movements 0 0 03/05/18 08:00 Sputum - Endotracheal Gram Stain - Final 03/05/18 08:00 Sputum - Endotracheal Sputum Culture - Final Klebsiella pneumoniae ESBL pos 03/05/18 18:25 Blood - Peripheral Aerobic Blood Culture - Preliminary No growth in 2 days 03/05/18 18:25 Blood - Peripheral Anaerobic Blood Culture - Preliminary No growth in 2 days 03/05/18 18:10 Blood - Peripheral Aerobic Blood Culture - Preliminary No growth in 2 days 03/05/18 18:10 Blood - Peripheral Anaerobic Blood Culture - Preliminary No growth in 2 days 03/03/18 19:53 Blood - Peripheral Aerobic Blood Culture - Preliminary No growth in 4 days 03/03/18 19:53 Blood - Peripheral Anaerobic Blood Culture - Preliminary No growth in 4 days 03/05/18 11:25 Clean Catch Urine Urine Culture - Final No growth in 48 hours 03/06/18 15:00 Bronchial Washings - Left Lower Lobe Fungal Smear - Final No fungal elements seen 03/06/18 15:00 Bronchial Washings - Left Lower Lobe Fungal Culture - Pending 03/06/18 15:00 Bronchial - Left Lower Lobe Gram Stain - Final 03/06/18 15:00 Bronchial - Left Lower Lobe Bronchial Culture - Pending 03/06/18 14:41 Fluid - Pleural fluid Gram Stain - Final 03/06/18 14:41 Fluid - Pleural fluid Body Fluid Culture - Pending 03/06/18 15:00 Bronchial Washings - Left Lower Lobe Acid Fast Bacilli Smear - Pending 03/06/18 15:00 Bronchial Washings - Left Lower Lobe Mycobacterial Culture - Pending 03/05/18 14:00 Stool Occult Blood - Final Hemoccult negative Lab - Hematology Results 03/05/18 03/06/18 03/07/18 13:58 04:50 04:25 WBC 3.1 L 7.1 D 5.2 RBC 2.32 L 2.53 L 2.44 L Hgb 6.9 L* 7.9 L 7.5 L Hct 22.7 L 23.2 L 22.4 L MCV 97.7 91.5 D 91.8 MCH 29.8 31.1 30.8 MCHC 30.5 L 34.0 33.6 RDW 17.9 H 17.1 16.9 Plt Count 134 L 127 L 118 L MPV 9.4 9.0 10.2 Prelim Diff (Auto) Slide review pending Neut % (Auto) 78.2 H 79.9 H 73.2 H Lymph % (Auto) 9.6 10.2 16.9 Ector % (Auto) 11.6 H 9.1 H 8.4 H Eos % (Auto) 0.4 0.4 1.3 Baso % (Auto) 0.2 0.4 0.2 Neut # (Auto) 2.4 5.7 3.8 Lymph # (Auto) 0.3 L 0.7 L 0.9 L Ector # (Auto) 0.4 0.6 0.4 Eos # (Auto) 0.0 0.0 0.1 Baso # (Auto) 0.0 0.0 0.0 WBC Differential Manual diff final . . Seg Neuts % (Manual) 44 Band Neuts % (Manual) 31 H Lymphocytes % (Manual) 17 Monocytes % (Manual) 7 Eosinophils % (Manual) 1 Abs Neuts (Manual) 2.3 Differential Comment . Auto diff final Auto diff final Platelet Estimate Low L Platelet Morphology Enlarged H Basophilic Stippling Heavy H Ovalocytes 1+ H Lab - Chemistry Results 03/05/18 03/05/18 03/05/18 11:42 13:58 17:08 Sodium 158 H* Potassium 4.6 Chloride 122 H Carbon Dioxide 27.8 Anion Gap 8 BUN 63 H Creatinine 1.78 H Estimated GFR 50 L POC Glucose 144 H 120 H Random Glucose 113 H Calcium 8.3 L Total Bilirubin AST ALT Alkaline Phosphatase Troponin I Total Protein Albumin 03/05/18 03/05/18 03/05/18 18:20 20:37 23:46 Sodium Potassium Chloride Carbon Dioxide Anion Gap BUN Creatinine Estimated GFR POC Glucose 153 H Random Glucose Calcium Total Bilirubin AST ALT Alkaline Phosphatase Troponin I 0.09 H 0.07 H Total Protein Albumin 03/06/18 03/06/18 03/06/18 04:50 07:57 11:54 Sodium 152 H Potassium 3.9 Chloride 116 H Carbon Dioxide 27.8 Anion Gap 8 BUN 61 H Creatinine 1.93 H Estimated GFR 45 L POC Glucose 95 84 Random Glucose 77 Calcium 7.9 L Total Bilirubin 0.9 AST 34 ALT 24 Alkaline Phosphatase 80 Troponin I Total Protein 6.6 Albumin 2.2 L 03/06/18 03/06/18 03/07/18 15:57 20:03 01:19 Sodium Potassium Chloride Carbon Dioxide Anion Gap BUN Creatinine Estimated GFR POC Glucose 97 73 40 L* Random Glucose Calcium Total Bilirubin AST ALT Alkaline Phosphatase Troponin I Total Protein Albumin 03/07/18 03/07/18 03/07/18 04:14 04:15 04:25 Sodium 149 H Potassium 4.0 Chloride 112 H Carbon Dioxide 27.5 Anion Gap 10 BUN 61 H Creatinine 2.48 H Estimated GFR 34 L POC Glucose 50 L 48 L* Random Glucose 138 H Calcium 7.6 L Total Bilirubin 1.0 AST 59 H ALT 25 Alkaline Phosphatase 72 Troponin I Total Protein 6.7 Albumin 2.0 L 03/07/18 08:15 Sodium Potassium Chloride Carbon Dioxide Anion Gap BUN Creatinine Estimated GFR POC Glucose 77 Random Glucose Calcium Total Bilirubin AST ALT Alkaline Phosphatase Troponin I Total Protein Albumin Imaging: ITS Impressions Abdomen/Pelvis CT 02/17/18 00:00 CONCLUSION: 1. Small bilateral pleural effusions and bilateral lower lung opacity again seen. 2. Mild splenomegaly again seen. 3. Gastrostomy tube in place. 4. No evidence of bowel dilatation. 5. Heterotopic ossification about the left hip again seen. 6. Calcified adrenal glands again seen. 7. Enlarged inguinal lymph nodes again seen. Venous Doppler Study 02/18/18 00:00 CONCLUSION: 1. No DVT or SVT. 2. 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 This measures 3.6 x 2.2 x 2.2 cm and is predominantly thrombosed with a small, 6 x 9 mm patent component showing biphasic flow. Central Venous Line 02/22/18 00:00 CONCLUSION: 1. Uncomplicated tunneled central venous Power PICC line placement. 2. The PICC line can be used immediately. Foot MRI 02/22/18 00:00 CONCLUSION: 1. Findings most characteristic of early osteomyelitis at the medial aspect of the first metatarsal head and a tiny focus of probable osteomyelitis at the medial corner of the proximal phalanx great toe. Mild surrounding cellulitis. 2. Previous partial amputation fifth metatarsal. Extremity Arterial Study 02/26/18 00:00 CONCLUSION: 1. Normal ABIs bilaterally. Chest CT 03/05/18 00:00 CONCLUSION: 1. Bilateral effusions and diffuse bilateral consolidation. Acuna Line Insertion 03/05/18 00:00 CONCLUSION: 1. Uncomplicated Acuna catheter placement as above. Chest X-Ray 03/07/18 00:00 CONCLUSION: No significant change. Diffuse bilateral parenchymal consolidation and small pleural effusions similar to before. Physical Exam: GENERAL: NAD SKIN: Warm and dry. HEAD: Atraumatic. Normocephalic. EYES: Pupils equal and round. No scleral icterus. No injection or drainage. ENT: No nasal bleeding or discharge. Mucous membranes pink and moist. CARDIOVASCULAR: Regular rate and rhythm. RESPIRATORY: No accessory muscle use. rhonchi to auscultation. Breath sounds equal bilaterally. GASTROINTESTINAL: Abdomen soft, non-tender, distended. Hepatic and splenic margins not palpable. PEG in place, tolerates TF @ 50 cc/hr Incontinent of brown liquid stool MUSCULOSKELETAL: Extremities without clubbing, cyanosis, or edema. No obvious deformities. B/l feet with dressings in place + prominent edema NEUROLOGICAL: lethargic, arousable and alert. No obvious cranial nerve deficits. L side hemiplegia PSYCHIATRIC: unable to assess Assessment and Plan - Plan B/L foot osteomyelitis MRSA, on vancomycin - trough level too high Anemia likely 2/2 vanco Mild CEDRIC, likely 2/2 vanco - pt has 2 adverse effects from vancomycin so far, I will recommend to avoid vancomycin Aspiration PNA - growing ESBL + kleb pneumo acute VDRF Hypotensive ? sepsis stable Diarreha, C.diff negative CEDRIC with worsening GFR chk urine eos change zyvox to daptomycin both Ertapenem and dapto will need to be changed to q 48 whrn GFR < 30 dc zosyn, levaquin start Ertapenem for ESBL + Kleb dw RN
[2018-03-07] MEDS: SODIUM CHLOR 0.9% IV.SIG SCH (12:33)
[2018-03-07] MEDS: ERTAPENEM IV.SIG SCH (12:33)
--- NOTE | 2018-03-07 15:37 | P.PNCC ---
Subjective Subjective Remarks/Hospital Course: The patient is a 47-year-old male with a past medical history of a CVA with left -sided hemiparesis, hypertension, diabetes mellitus, anemia of chronic disease, CHF, dysphagia, status post PEG tube placement, depression, nonverbal, who was admitted under the hospitalist service on 02/17/2018 for acute on chronic anemia. In addition, the patient has a history of bilateral foot osteomyelitis. During his hospital course, he had worsening renal function with a creatinine of 1.74 this morning from 1.1 on admission. In addition, the patient was found hypernatremic with a sodium level of 156 and hyperkalemic with a potassium level 5.3. A halicat was called 2 days ago for shortness of breath, and this morning the patient had a PEA arrest. ACLS protocol was initiated and the patient received epinephrine x3, 2 amps of bicarbonate, and 1 amp of calcium and was subsequently intubated by myself with an ET tube 8.0 cm size. A chest x-ray post intubation showed diffuse bilateral pulmonary infiltrates. He was on NS at 100 mL an hour for the past 2 days. Also, he had a venous Doppler ultrasound on 02/18/2018, which showed no evidence of a DVT; however, it showed a pseudoaneurysm at the distal brachial artery measuring 3.6 x 2.2 x 2.2 cm, predominantly thrombosed; however, there was a small patent component with biphasic flow measuring 6 x 9 mm. A single lumen right PICC line was placed by interventional radiology on 02/22/2018. The patient also had an arterial Doppler ultrasound which was within normal. He was seen by Dr. Jensen from vascular surgery. In addition, the patient has been followed by podiatry and infectious disease. ABG postcode showed acute hypercapnic respiratory acidosis with a pH of 7.11, CO2 of 83, PaO2 of 99, bicarbonate 25, saturation 92% on PRVC mode, rate of 16, tidal volume 500, PEEP of 5, 100% FiO2, and I time 0.9. 03/06 Patient is sedated with Versed and Fenantl drips Levophed started overnight on 4 mics. Afebrile. Renal function worse this morning with C: 1.93 from 1.75 s/p transfusion 2U PRBC yesterday . 03/07: Remains sedated, arousable, orally intubated on mechanical ventilation. Sputum growing ESBL Klebsiella. Objective Vital Signs / I&O: Vital Signs 03/06/18 15:45 03/06/18 16:00 03/06/18 16:15 Temperature Pulse Rate 93 H 97 H 93 H Respiratory Rate 17 12 14 Blood Pressure 92/53 L 100/57 L 98/58 L Pulse Oximetry 93 L 94 L 92 L 03/06/18 16:30 03/06/18 16:45 03/06/18 17:00 Temperature Pulse Rate 93 H 91 H 98 H Respiratory Rate 17 17 32 H Blood Pressure 100/59 L 100/61 112/60 Pulse Oximetry 94 L 95 03/06/18 17:15 03/06/18 17:30 03/06/18 17:45 Temperature Pulse Rate 93 H 91 H 91 H Respiratory Rate 20 6 L 20 Blood Pressure 106/58 L 96/59 L 92/55 L Pulse Oximetry 91 L 95 96 03/06/18 18:00 03/06/18 18:15 03/06/18 20:00 Temperature 98.6 F Pulse Rate 88 87 91 H Respiratory Rate 20 20 20 Blood Pressure 91/57 L 92/55 L 93/56 L Pulse Oximetry 92 L 95 96 03/06/18 20:22 03/06/18 20:25 03/06/18 22:00 Temperature Pulse Rate 95 H 98 H Respiratory Rate 20 20 Blood Pressure Pulse Oximetry 92 L 03/07/18 00:00 03/07/18 00:55 03/07/18 02:00 Temperature 98.6 F Pulse Rate 100 H 101 H Respiratory Rate 20 20 Blood Pressure 100/60 Pulse Oximetry 92 L 92 L 03/07/18 04:00 03/07/18 04:40 03/07/18 04:45 Temperature 98.9 F Pulse Rate 101 H 100 H Respiratory Rate 20 20 0 L Blood Pressure 111/60 98/54 L Pulse Oximetry 92 L 94 L 93 L 03/07/18 05:00 03/07/18 05:15 03/07/18 05:30 Temperature Pulse Rate 98 H 96 H 94 H Respiratory Rate 0 L 0 L 0 L Blood Pressure 93/55 L 90/50 L 97/53 L Pulse Oximetry 92 L 93 L 93 L 03/07/18 05:45 03/07/18 06:00 03/07/18 06:15 Temperature Pulse Rate 94 H 94 H 95 H Respiratory Rate 0 L 0 L 0 L Blood Pressure 106/57 L 105/62 106/60 Pulse Oximetry 93 L 94 L 93 L 03/07/18 06:30 03/07/18 06:45 03/07/18 07:00 Temperature Pulse Rate 93 H 93 H 93 H Respiratory Rate 0 L 0 L 0 L Blood Pressure 102/60 108/67 102/56 L Pulse Oximetry 93 L 91 L 94 L 03/07/18 07:15 03/07/18 07:30 03/07/18 07:45 Temperature Pulse Rate 97 H 97 H 94 H Respiratory Rate 2 L 21 22 Blood Pressure 110/57 L 104/59 L 99/57 L Pulse Oximetry 94 L 94 L 94 L 03/07/18 08:00 03/07/18 08:15 03/07/18 08:30 Temperature Pulse Rate 94 H 95 H 97 H Respiratory Rate 22 18 20 Blood Pressure 95/53 L 105/61 106/60 Pulse Oximetry 95 90 L 85 L 03/07/18 08:45 03/07/18 09:00 03/07/18 09:14 Temperature Pulse Rate 96 H 92 H 100 H Respiratory Rate 20 20 20 Blood Pressure 97/58 L 95/55 L Pulse Oximetry 94 L 94 L 95 03/07/18 09:15 03/07/18 09:30 03/07/18 09:45 Temperature Pulse Rate 98 H 97 H 97 H Respiratory Rate 20 20 20 Blood Pressure 103/58 L 103/59 L 96/55 L Pulse Oximetry 95 94 L 93 L 03/07/18 10:00 03/07/18 10:15 03/07/18 10:30 Temperature Pulse Rate 96 H 92 H 91 H Respiratory Rate 20 20 20 Blood Pressure 93/53 L 132/68 114/64 Pulse Oximetry 93 L 94 L 94 L 03/07/18 10:45 03/07/18 11:00 03/07/18 11:16 Temperature Pulse Rate 93 H 94 H 95 H Respiratory Rate 20 20 20 Blood Pressure 110/71 128/61 97/53 L Pulse Oximetry 94 L 92 L 93 L 03/07/18 11:30 03/07/18 11:45 03/07/18 12:00 Temperature Pulse Rate 93 H 94 H 92 H Respiratory Rate 20 20 20 Blood Pressure 104/73 95/58 L 103/63 Pulse Oximetry 94 L 94 L 94 L 03/07/18 12:15 03/07/18 12:23 03/07/18 12:30 Temperature Pulse Rate 92 H 94 H Respiratory Rate 20 20 20 Blood Pressure 103/63 97/60 L Pulse Oximetry 94 L 93 L 92 L 03/07/18 12:45 03/07/18 13:00 03/07/18 13:15 Temperature Pulse Rate 95 H 95 H 93 H Respiratory Rate 21 26 H 20 Blood Pressure 106/61 110/71 101/64 Pulse Oximetry 93 L 93 L 91 L 03/07/18 13:45 03/07/18 14:00 03/07/18 14:15 Temperature Pulse Rate 95 H 95 H 92 H Respiratory Rate 22 16 20 Blood Pressure 108/63 107/63 109/62 Pulse Oximetry 93 L 90 L 94 L 03/07/18 14:30 03/07/18 14:45 Temperature Pulse Rate 95 H 93 H Respiratory Rate 20 20 Blood Pressure 108/73 110/71 Pulse Oximetry 89 L 95 Intake & Output 03/06/18 03/07/18 03/07/18 18:59 06:59 18:59 Intake Total 3174 / 3174 1861 / 1861 Output Total 500 / 500 500 / 500 Balance 2674 / 2674 1361 / 1361 Weight 94.3 kg Intake: IV 2148 / 2148 750 / 750 D5W Inj 1,000 ML @ 100 mls/hr 806 / 806 IV.CONT .Q10H [facility] Rx#:[id number] Versed Inj 50 mg In 50 ml @ 2 57 / 57 MG/HR 2 mls/hr IV.CONT TITRATE PRN Rx#:[id number] Levaquin 750 mg Premix Inj 150 150 / 150 ML @ 100 mls/hr IV.SIG Q24H [facility] Rx#:[id number] Zyvox 600 mg Premix 300 ML @ 300 / 300 300 / 300 300 mls/hr IV.SIG Q12H [facility] Rx#: [id number] Levophed-Dextrose 4 mg/250 ml 135 / 135 Drip 4 mg In 250 ml @ 2 MCG/MIN 7.5 mls/hr IV.SIG TITRATE PRN Rx#:[id number] Zosyn 4.5 GM Premix 4.5 gm In 200 / 200 200 / 200 100 ml @ 200 mls/hr IV.SIG Q6H [facility] Rx#:[id number] fentaNYL 10 mcg/mL Premix Drip 250 / 250 250 / 250 2,500 mcg In 250 ml @ 50 MCG/HR 5 mls/hr IV.SIG TITRATE PRN Rx #:[id number] Tube Feeding 246 / 246 331 / 331 Tube Irrigant 180 / 180 180 / 180 Water Bolus Amount 600 / 600 600 / 600 Output: Stool 0 / 0 0 / 0 Urine Amount (Catheter) 500 / 500 500 / 500 Indwelling Urethral Catheter 500 / 500 500 / 500 Other: Date of Last Bowel Movement 03/05/18 03/05/18 03/05/18 # Bowel Movements 0 0 Result Diagrams: 03/07/18 04:25 03/07/18 04:25 Objective Remarks: GENERAL: Patient is 47 yo intubated and sedated SKIN: Warm and dry. HEAD: Normocephalic. EYES: No scleral icterus. No injection or drainage. NECK: Supple, trachea midline. No JVD or lymphadenopathy. CARDIOVASCULAR: Regular rate and rhythm without murmurs, gallops, or rubs. RESPIRATORY: Breath sounds equal bilaterally. No accessory muscle use. GASTROINTESTINAL: Abdomen soft, non-tender, nondistended. + PEG tube MUSCULOSKELETAL: No cyanosis, or edema. Neuro: Sedated, intubated Assessment and Plan - Assessment and Plan Plan: 1. VDRF 2. S/p PEA arrest 3. Diffuse bilateral pulmonary infiltrates, ddx aspiration pneumonia and fluid overload. 4. Hypertension. 5. Acute kidney injury. 6. History CVA with left-sided hemiparesis. 7. 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 8. Bilateral foot osteomyelitis methicillin-resistant Staphylococcus aureus. Plan Neuro: on fentanyl and Versed infusion for sedation. Daily sedation vacation. on Keppra 500 mg t.i.d. for a history of seizures. Pulm: Continue with ventilatory support and maintain sats> 92%. Bronchodilators, ICU vent bundle. Decrease FIO2 as demond. Check ABG CXR shows diffuse infiltrates patient also has a lot of secretions s/p diagnostic US guided thoracentesis 40ml removed, pleural fluid sent for analysis & culture. Bronch with BAL today showed secretions L>R suctioned to clear, BAL performed LLL. CV: Monitor HR and BP and maintain MAP> 65 mmHg. Levophed for pressor support as needed For 2D echo : Monitor renal function, I's and O's and avoid nephrotoxins. d/c IVF and diurese with Lasix 40mg IV x1 ( fluid overload) Continue with Free water 300ml Q6 monitor sodium level GI: On Prevacid 30 mg daily. Start tube feeds- Glucerna 1.5 with goal rate 50ml/ hr ID: Continue with abx ( Zosyn, Zyvox switched to ertapenem and daptomycin on per ID) ID is following Follow up on Blood and urine cx from 03/05 03/05 Sputum cx: ESBL Klebsiella Wound culture growing MRSA from osteomyelitis site. Heme: Monitor CBC and coags. s/p transfusion 2u PRBC 03/05 heme occult negative Endo: SSI with Accu-Cheks for glycemic control. GI prophylaxis- On Prevacid DVT prophylaxis- SCD, heparin SQ held for anemia requiring blood transfusion. IV access: RUE single lumen PICC line repositioned by IR 03/05 Condition critical Time spent on critical care excluding procedures 30 minutes
--- NOTE | 2018-03-07 15:50 | P.PNPL ---
Subjective Interval history: 47 YO AA male with CVA,DM, Bilat infilt, pl eff On Vent, fi02 45% On Fentanyl Opens eyes TF on hold BAL ESBL klebsiela Physical Exam Vital signs: Vital Signs 03/06/18 16:00 03/06/18 16:15 03/06/18 16:30 Temperature Pulse Rate 97 H 93 H 93 H Respiratory Rate 12 14 17 Blood Pressure 100/57 L 98/58 L 100/59 L Pulse Oximetry 94 L 92 L 94 L 03/06/18 16:45 03/06/18 17:00 03/06/18 17:15 Temperature Pulse Rate 91 H 98 H 93 H Respiratory Rate 17 32 H 20 Blood Pressure 100/61 112/60 106/58 L Pulse Oximetry 95 91 L 03/06/18 17:30 03/06/18 17:45 03/06/18 18:00 Temperature Pulse Rate 91 H 91 H 88 Respiratory Rate 6 L 20 20 Blood Pressure 96/59 L 92/55 L 91/57 L Pulse Oximetry 95 96 92 L 03/06/18 18:15 03/06/18 20:00 03/06/18 20:22 Temperature 98.6 F Pulse Rate 87 91 H Respiratory Rate 20 20 20 Blood Pressure 92/55 L 93/56 L Pulse Oximetry 95 96 92 L 03/06/18 20:25 03/06/18 22:00 03/07/18 00:00 Temperature 98.6 F Pulse Rate 95 H 98 H 100 H Respiratory Rate 20 20 Blood Pressure 100/60 Pulse Oximetry 92 L 03/07/18 00:55 03/07/18 02:00 03/07/18 04:00 Temperature 98.9 F Pulse Rate 101 H 101 H Respiratory Rate 20 20 Blood Pressure 111/60 Pulse Oximetry 92 L 92 L 03/07/18 04:40 03/07/18 04:45 03/07/18 05:00 Temperature Pulse Rate 100 H 98 H Respiratory Rate 20 0 L 0 L Blood Pressure 98/54 L 93/55 L Pulse Oximetry 94 L 93 L 92 L 03/07/18 05:15 03/07/18 05:30 03/07/18 05:45 Temperature Pulse Rate 96 H 94 H 94 H Respiratory Rate 0 L 0 L 0 L Blood Pressure 90/50 L 97/53 L 106/57 L Pulse Oximetry 93 L 93 L 93 L 03/07/18 06:00 03/07/18 06:15 03/07/18 06:30 Temperature Pulse Rate 94 H 95 H 93 H Respiratory Rate 0 L 0 L 0 L Blood Pressure 105/62 106/60 102/60 Pulse Oximetry 94 L 93 L 93 L 03/07/18 06:45 03/07/18 07:00 03/07/18 07:15 Temperature Pulse Rate 93 H 93 H 97 H Respiratory Rate 0 L 0 L 2 L Blood Pressure 108/67 102/56 L 110/57 L Pulse Oximetry 91 L 94 L 94 L 03/07/18 07:30 03/07/18 07:45 03/07/18 08:00 Temperature Pulse Rate 97 H 94 H 94 H Respiratory Rate 21 22 22 Blood Pressure 104/59 L 99/57 L 95/53 L Pulse Oximetry 94 L 94 L 95 03/07/18 08:15 03/07/18 08:30 03/07/18 08:45 Temperature Pulse Rate 95 H 97 H 96 H Respiratory Rate 18 20 20 Blood Pressure 105/61 106/60 97/58 L Pulse Oximetry 90 L 85 L 94 L 03/07/18 09:00 03/07/18 09:14 03/07/18 09:15 Temperature Pulse Rate 92 H 100 H 98 H Respiratory Rate 20 20 20 Blood Pressure 95/55 L 103/58 L Pulse Oximetry 94 L 95 95 03/07/18 09:30 03/07/18 09:45 03/07/18 10:00 Temperature Pulse Rate 97 H 97 H 96 H Respiratory Rate 20 20 20 Blood Pressure 103/59 L 96/55 L 93/53 L Pulse Oximetry 94 L 93 L 93 L 03/07/18 10:15 03/07/18 10:30 03/07/18 10:45 Temperature Pulse Rate 92 H 91 H 93 H Respiratory Rate 20 20 20 Blood Pressure 132/68 114/64 110/71 Pulse Oximetry 94 L 94 L 94 L 03/07/18 11:00 03/07/18 11:16 03/07/18 11:30 Temperature Pulse Rate 94 H 95 H 93 H Respiratory Rate 20 20 20 Blood Pressure 128/61 97/53 L 104/73 Pulse Oximetry 92 L 93 L 94 L 03/07/18 11:45 03/07/18 12:00 03/07/18 12:15 Temperature Pulse Rate 94 H 92 H 92 H Respiratory Rate 20 20 20 Blood Pressure 95/58 L 103/63 103/63 Pulse Oximetry 94 L 94 L 94 L 03/07/18 12:23 03/07/18 12:30 03/07/18 12:45 Temperature Pulse Rate 94 H 95 H Respiratory Rate 20 20 21 Blood Pressure 97/60 L 106/61 Pulse Oximetry 93 L 92 L 93 L 03/07/18 13:00 03/07/18 13:15 03/07/18 13:45 Temperature Pulse Rate 95 H 93 H 95 H Respiratory Rate 26 H 20 22 Blood Pressure 110/71 101/64 108/63 Pulse Oximetry 93 L 91 L 93 L 03/07/18 14:00 03/07/18 14:15 03/07/18 14:30 Temperature Pulse Rate 95 H 92 H 95 H Respiratory Rate 16 20 20 Blood Pressure 107/63 109/62 108/73 Pulse Oximetry 90 L 94 L 89 L 03/07/18 14:45 Temperature Pulse Rate 93 H Respiratory Rate 20 Blood Pressure 110/71 Pulse Oximetry 95 Intake & Output 03/06/18 03/07/18 03/07/18 18:59 06:59 18:59 Intake Total 3174 / 3174 1861 / 1861 Output Total 500 / 500 500 / 500 Balance 2674 / 2674 1361 / 1361 Weight 94.3 kg Intake: IV 2148 / 2148 750 / 750 D5W Inj 1,000 ML @ 100 mls/hr 806 / 806 IV.CONT .Q10H KRISTIE Rx#:[id number] Versed Inj 50 mg In 50 ml @ 2 57 / 57 MG/HR 2 mls/hr IV.CONT TITRATE PRN Rx#:[id number] Levaquin 750 mg Premix Inj 150 150 / 150 ML @ 100 mls/hr IV.SIG Q24H KRISTIE Rx#:[id number] Zyvox 600 mg Premix 300 ML @ 300 / 300 300 / 300 300 mls/hr IV.SIG Q12H KRISTIE Rx#: [id number] Levophed-Dextrose 4 mg/250 ml 135 / 135 Drip 4 mg In 250 ml @ 2 MCG/MIN 7.5 mls/hr IV.SIG TITRATE PRN Rx#:[id number] Zosyn 4.5 GM Premix 4.5 gm In 200 / 200 200 / 200 100 ml @ 200 mls/hr IV.SIG Q6H KRISTIE Rx#:[id number] fentaNYL 10 mcg/mL Premix Drip 250 / 250 250 / 250 2,500 mcg In 250 ml @ 50 MCG/HR 5 mls/hr IV.SIG TITRATE PRN Rx #:[id number] Tube Feeding 246 / 246 331 / 331 Tube Irrigant 180 / 180 180 / 180 Water Bolus Amount 600 / 600 600 / 600 Output: Stool 0 / 0 0 / 0 Urine Amount (Catheter) 500 / 500 500 / 500 Indwelling Urethral Catheter 500 / 500 500 / 500 Other: Date of Last Bowel Movement 03/05/18 03/05/18 03/05/18 # Bowel Movements 0 0 GENERAL: WBWN AA male, on vent SKIN: Warm and dry. HEAD: Normocephalic. EYES: No scleral icterus. No injection or drainage. NECK: Supple, trachea midline. No JVD or lymphadenopathy. CARDIOVASCULAR: Regular rate and rhythm without murmurs, gallops, or rubs. RESPIRATORY: Breath sounds equal bilaterally. No accessory muscle use. GASTROINTESTINAL: Abdomen soft, non-tender, nondistended. MUSCULOSKELETAL: No cyanosis, or edema. BACK: Nontender without obvious deformity. No CVA tenderness. - Urinary Catheter Management Indwelling Urethral Catheter Cath placed during this visit: yes Reason for continuing: Acute urinary retention Insertion date: 03/05/18 Insertion time: 08:00 Assessment and Plan - Plan IMPRESSION: 1. Bilateral lung infiltrates. 2. Small pleural effusion. 3. Osteomyelitis of both feet. 4. Diabetes mellitus. 5. Cerebrovascular accident with left-sided contracture. 6. VDRF 7. S/P cardiopulm arrest. PLAN: Vent Support sedation with Fentanyl Cont Abx Aerosol nebs monitor Pl eff
[2018-03-07] MEDS: DAPTOmycin Inj 1,000 MG in Sodium Chlor 0.9% Inj 100 ML IV.SIG SCH (16:50)
[2018-03-07] MEDS ORDERED: Dextrose 10% in Water Inj 1,000 ML IV.SIG SCH (18:00)
[2018-03-07] MEDS: Dextrose 10% in Water Inj 500 ML IV.SIG SCH (18:41)
[2018-03-08] MEDS: Insulin NovoLIN Regular Correctional Sugar Inj SQ SCH ×5 (00:52→21:41)
[2018-03-08] MEDS: fentaNYL 10 mcg/mL Premix Drip 2,500 MCG/250 ML BAG IV.SIG PRN ×3 (03:03→21:40)
[2018-03-08] MEDS: Dextrose 50% in Water 50 ML Vial IV.PUSH PRN ×2 (04:18→08:22)
[2018-03-08 05:22] LABS: Baso % (Auto) 0.3 % (0.0-2.0); Eos # (Auto) 0.1 th/mm3 (0.0-0.4); Eos % (Auto) 2.8 % (0.0-4.0); Hematocrit 22.5 % (39.0-51.0); Hemoglobin 7.4 gm/dL (13.0-17.0); Lymph # (Auto) 0.9 th/mm3 (1.0-4.8); Lymph % (Auto) 20.2 % (9.0-44.0); Mean Corpuscular HGB Conc 33.1 % (32.0-36.0); Mean Corpuscular Hemoglobin 30.6 pg (27.0-34.0); Mean Corpuscular Volume 92.4 fL (80.0-100.0); Mean Platelet Volume 9.7 fL (7.0-11.0); Mono # (Auto) 0.4 th/mm3 (0.0-0.9); Neut # (Auto) 2.9 th/mm3 (1.8-7.7); Neut % (Auto) 66.7 % (16.0-70.0); Platelet Count 119 th/mm3 (150-450); Red Blood Count 2.43 mil/mm3 (4.50-5.90); White Blood Count 4.4 th/mm3 (4.0-11.0)
[2018-03-08] MEDS: Chlorhexidine Gluconate 2% 1 Pack (2 Cloths) TOPICAL SCH (05:57)
[2018-03-08] MEDS: Dextrose 10% in Water Inj 500 ML IV.SIG SCH ×3 (06:02→21:17)
[2018-03-08 06:03] LABS: Alanine Aminotransferase 45 U/L (12-78); Albumin 1.9 g/dL (3.4-5.0); Alkaline Phosphatase 68 U/L (45-117); Anion Gap 11 meq/L (5-15); Aspartate Aminotransferase 176 U/L (15-37); Blood Urea Nitrogen 61 mg/dL (7-18); Carbon Dioxide 26.5 meq/L (21.0-32.0); Chloride 112 meq/L (98-107); Glomerular Filtration Rate 30 mL/min (>89); Glucose,Random 96 mg/dL (74-106); Potassium 4.1 meq/L (3.5-5.1); Sodium 149 meq/L (136-145); Total Protein 6.7 g/dL (6.4-8.2)
--- NOTE | 2018-03-08 06:39 | P.PNCC ---
Subjective Subjective Remarks/Hospital Course: The patient is a 47-year-old male with a past medical history of a CVA with left -sided hemiparesis, hypertension, diabetes mellitus, anemia of chronic disease, CHF, dysphagia, status post PEG tube placement, depression, nonverbal, who was admitted under the hospitalist service on 02/17/2018 for acute on chronic anemia. In addition, the patient has a history of bilateral foot osteomyelitis. During his hospital course, he had worsening renal function with a creatinine of 1.74 this morning from 1.1 on admission. In addition, the patient was found hypernatremic with a sodium level of 156 and hyperkalemic with a potassium level 5.3. A halicat was called 2 days ago for shortness of breath, and this morning the patient had a PEA arrest. ACLS protocol was initiated and the patient received epinephrine x3, 2 amps of bicarbonate, and 1 amp of calcium and was subsequently intubated by myself with an ET tube 8.0 cm size. A chest x-ray post intubation showed diffuse bilateral pulmonary infiltrates. He was on NS at 100 mL an hour for the past 2 days. Also, he had a venous Doppler ultrasound on 02/18/2018, which showed no evidence of a DVT; however, it showed a pseudoaneurysm at the distal brachial artery measuring 3.6 x 2.2 x 2.2 cm, predominantly thrombosed; however, there was a small patent component with biphasic flow measuring 6 x 9 mm. A single lumen right PICC line was placed by interventional radiology on 02/22/2018. The patient also had an arterial Doppler ultrasound which was within normal. He was seen by Dr. Jensen from vascular surgery. In addition, the patient has been followed by podiatry and infectious disease. ABG postcode showed acute hypercapnic respiratory acidosis with a pH of 7.11, CO2 of 83, PaO2 of 99, bicarbonate 25, saturation 92% on PRVC mode, rate of 16, tidal volume 500, PEEP of 5, 100% FiO2, and I time 0.9. 03/06 Patient is sedated with Versed and Fenantl drips Levophed started overnight on 4 mics. Afebrile. Renal function worse this morning with C: 1.93 from 1.75 s/p transfusion 2U PRBC yesterday . 03/07: Remains sedated, arousable, orally intubated on mechanical ventilation. Sputum growing ESBL Klebsiella. 03/08 Patient remains intubated and Sedated with Fentanyl drip. HAd T: 101 last night.Had an episode of hypoglycemia last night given D50 and placed on D10. Objective Vital Signs / I&O: Vital Signs 03/07/18 06:45 03/07/18 07:00 03/07/18 07:15 Temperature Pulse Rate 93 H 93 H 97 H Respiratory Rate 0 L 0 L 2 L Blood Pressure 108/67 102/56 L 110/57 L Pulse Oximetry 91 L 94 L 94 L 03/07/18 07:30 03/07/18 07:45 03/07/18 08:00 Temperature Pulse Rate 97 H 94 H 94 H Respiratory Rate 21 22 22 Blood Pressure 104/59 L 99/57 L 95/53 L Pulse Oximetry 94 L 94 L 95 03/07/18 08:15 03/07/18 08:30 03/07/18 08:45 Temperature Pulse Rate 95 H 97 H 96 H Respiratory Rate 18 20 20 Blood Pressure 105/61 106/60 97/58 L Pulse Oximetry 90 L 85 L 94 L 03/07/18 09:00 03/07/18 09:14 03/07/18 09:15 Temperature Pulse Rate 92 H 100 H 98 H Respiratory Rate 20 20 20 Blood Pressure 95/55 L 103/58 L Pulse Oximetry 94 L 95 95 03/07/18 09:30 03/07/18 09:45 03/07/18 10:00 Temperature Pulse Rate 97 H 97 H 96 H Respiratory Rate 20 20 20 Blood Pressure 103/59 L 96/55 L 93/53 L Pulse Oximetry 94 L 93 L 93 L 03/07/18 10:15 03/07/18 10:30 03/07/18 10:45 Temperature Pulse Rate 92 H 91 H 93 H Respiratory Rate 20 20 20 Blood Pressure 132/68 114/64 110/71 Pulse Oximetry 94 L 94 L 94 L 03/07/18 11:00 03/07/18 11:16 03/07/18 11:30 Temperature Pulse Rate 94 H 95 H 93 H Respiratory Rate 20 20 20 Blood Pressure 128/61 97/53 L 104/73 Pulse Oximetry 92 L 93 L 94 L 03/07/18 11:45 03/07/18 12:00 03/07/18 12:15 Temperature Pulse Rate 94 H 92 H 92 H Respiratory Rate 20 20 20 Blood Pressure 95/58 L 103/63 103/63 Pulse Oximetry 94 L 94 L 94 L 03/07/18 12:23 03/07/18 12:30 03/07/18 12:45 Temperature Pulse Rate 94 H 95 H Respiratory Rate 20 20 21 Blood Pressure 97/60 L 106/61 Pulse Oximetry 93 L 92 L 93 L 03/07/18 13:00 03/07/18 13:15 03/07/18 13:45 Temperature Pulse Rate 95 H 93 H 95 H Respiratory Rate 26 H 20 22 Blood Pressure 110/71 101/64 108/63 Pulse Oximetry 93 L 91 L 93 L 03/07/18 14:00 03/07/18 14:15 03/07/18 14:30 Temperature Pulse Rate 95 H 92 H 95 H Respiratory Rate 16 20 20 Blood Pressure 107/63 109/62 108/73 Pulse Oximetry 90 L 94 L 89 L 03/07/18 14:45 03/07/18 15:00 03/07/18 15:01 Temperature Pulse Rate 93 H 92 H 95 H Respiratory Rate 20 20 20 Blood Pressure 110/71 131/71 Pulse Oximetry 95 93 L 94 L 03/07/18 15:15 03/07/18 15:30 03/07/18 15:45 Temperature Pulse Rate 96 H 96 H 96 H Respiratory Rate 20 24 21 Blood Pressure 101/58 L 107/64 105/68 Pulse Oximetry 94 L 96 95 03/07/18 16:00 03/07/18 16:15 03/07/18 16:30 Temperature Pulse Rate 96 H 94 H 93 H Respiratory Rate 23 22 22 Blood Pressure 109/66 109/66 110/66 Pulse Oximetry 96 95 96 03/07/18 16:45 03/07/18 17:00 03/07/18 17:15 Temperature Pulse Rate 93 H 93 H 92 H Respiratory Rate 21 20 20 Blood Pressure 117/74 106/61 103/58 L Pulse Oximetry 95 96 96 03/07/18 17:30 03/07/18 17:45 03/07/18 18:00 Temperature Pulse Rate 93 H 91 H 96 H Respiratory Rate 20 20 0 L Blood Pressure 98/59 L 102/60 109/59 L Pulse Oximetry 97 89 L 03/07/18 18:15 03/07/18 18:30 03/07/18 18:45 Temperature Pulse Rate 97 H 99 H 100 H Respiratory Rate 0 L 0 L 0 L Blood Pressure 111/70 101/60 97/56 L Pulse Oximetry 03/07/18 19:00 03/07/18 19:15 03/07/18 19:30 Temperature Pulse Rate 98 H 97 H 96 H Respiratory Rate 20 20 22 Blood Pressure 103/71 108/61 101/60 Pulse Oximetry 93 L 95 03/07/18 19:45 03/07/18 20:00 03/07/18 20:03 Temperature 101 F H Pulse Rate 96 H 98 H Respiratory Rate 25 H 21 21 Blood Pressure 102/69 103/59 L Pulse Oximetry 95 94 L 94 L 03/07/18 20:15 03/07/18 20:30 03/07/18 20:45 Temperature Pulse Rate 97 H 98 H 101 H Respiratory Rate 17 18 16 Blood Pressure 110/70 109/73 113/71 Pulse Oximetry 92 L 98 97 03/07/18 21:00 03/07/18 21:15 03/07/18 21:30 Temperature Pulse Rate 97 H 97 H 100 H Respiratory Rate 14 20 18 Blood Pressure 103/60 98/60 L 115/82 Pulse Oximetry 96 95 94 L 03/07/18 21:45 03/07/18 22:00 03/07/18 22:15 Temperature Pulse Rate 100 H 98 H 98 H Respiratory Rate 10 L 3 L 8 L Blood Pressure 119/60 103/57 L 98/58 L Pulse Oximetry 92 L 95 95 03/07/18 22:30 03/07/18 22:45 03/07/18 23:00 Temperature Pulse Rate 98 H 97 H 96 H Respiratory Rate 5 L 15 13 Blood Pressure 107/60 98/60 L 96/63 L Pulse Oximetry 91 L 93 L 91 L 03/07/18 23:09 03/07/18 23:15 03/07/18 23:30 Temperature Pulse Rate 98 H 96 H Respiratory Rate 20 5 L 18 Blood Pressure 104/63 97/60 L Pulse Oximetry 95 95 03/07/18 23:45 03/08/18 00:00 03/08/18 00:15 Temperature 100.1 F H Pulse Rate 101 H 96 H 100 H Respiratory Rate 21 13 3 L Blood Pressure 101/72 105/64 109/60 Pulse Oximetry 87 L 79 L 92 L 03/08/18 01:54 03/08/18 02:00 03/08/18 03:31 Temperature Pulse Rate 96 H 96 H Respiratory Rate 20 21 Blood Pressure Pulse Oximetry 94 L 03/08/18 04:00 03/08/18 05:07 03/08/18 06:00 Temperature Pulse Rate 101 H 96 H Respiratory Rate 21 Blood Pressure Pulse Oximetry 97 Intake & Output 03/07/18 03/07/18 03/08/18 06:59 18:59 06:59 Intake Total 1861 / 1861 1111 / 1111 1571 / 1571 Output Total 500 / 500 0 / 0 400 / 400 Balance 1361 / 1361 1111 / 1111 1171 / 1171 Weight 94.3 kg 93.2 kg Intake: IV 750 / 750 750 / 750 D10W Inj 500 ML @ 30 mls/hr IV. 500 / 500 SIG .[id number] KRISTIE Rx#:[id number] Zyvox 600 mg Premix 300 ML @ 300 / 300 300 mls/hr IV.SIG Q12H KRISTIE Rx#: [id number] Zosyn 4.5 GM Premix 4.5 gm In 200 / 200 100 ml @ 200 mls/hr IV.SIG Q6H KRISTIE Rx#:[id number] fentaNYL 10 mcg/mL Premix Drip 250 / 250 250 / 250 2,500 mcg In 250 ml @ 50 MCG/HR 5 mls/hr IV.SIG TITRATE PRN Rx #:[id number] Tube Feeding 331 / 331 331 / 331 521 / 521 Tube Irrigant 180 / 180 180 / 180 Water Bolus Amount 600 / 600 600 / 600 300 / 300 Output: Stool 0 / 0 0 / 0 Urine Amount (Catheter) 500 / 500 400 / 400 Indwelling Urethral Catheter 500 / 500 400 / 400 Other: Date of Last Bowel Movement 03/05/18 03/05/18 03/08/18 # Bowel Movements 0 0 1 Result Diagrams: 03/08/18 04:57 03/08/18 04:57 Other Results: Laboratory Results - last 12 hr 03/07/18 03/07/18 03/07/18 21:04 21:37 23:50 WBC RBC Hgb Hct MCV MCH MCHC RDW Plt Count MPV Neut % (Auto) Lymph % (Auto) [place] % (Auto) Eos % (Auto) Baso % (Auto) Neut # (Auto) Lymph # (Auto) [place] # (Auto) Eos # (Auto) Baso # (Auto) WBC Differential Differential Comment Sodium Potassium Chloride Carbon Dioxide Anion Gap BUN Creatinine Estimated GFR POC Glucose 64 L 132 H 56 L Random Glucose Calcium Total Bilirubin AST ALT Alkaline Phosphatase Total Protein Albumin 03/08/18 03/08/18 03/08/18 00:13 03:46 04:57 WBC RBC Hgb Hct MCV MCH MCHC RDW Plt Count MPV Neut % (Auto) Lymph % (Auto) [place] % (Auto) Eos % (Auto) Baso % (Auto) Neut # (Auto) Lymph # (Auto) [place] # (Auto) Eos # (Auto) Baso # (Auto) WBC Differential Differential Comment Sodium 149 H Potassium 4.1 Chloride 112 H Carbon Dioxide 26.5 Anion Gap 11 BUN 61 H Creatinine 2.76 H Estimated GFR 30 L POC Glucose 164 H 60 L Random Glucose 96 Calcium 8.0 L Total Bilirubin 0.8 AST 176 H ALT 45 Alkaline Phosphatase 68 Total Protein 6.7 Albumin 1.9 L 03/08/18 03/08/18 04:57 05:55 WBC 4.4 RBC 2.43 L Hgb 7.4 L Hct 22.5 L MCV 92.4 MCH 30.6 MCHC 33.1 RDW 17.0 Plt Count 119 L MPV 9.7 Neut % (Auto) 66.7 Lymph % (Auto) 20.2 [place] % (Auto) 10.0 H Eos % (Auto) 2.8 Baso % (Auto) 0.3 Neut # (Auto) 2.9 Lymph # (Auto) 0.9 L [place] # (Auto) 0.4 Eos # (Auto) 0.1 Baso # (Auto) 0.0 WBC Differential . Differential Comment Auto diff final Sodium Potassium Chloride Carbon Dioxide Anion Gap BUN Creatinine Estimated GFR POC Glucose 91 Random Glucose Calcium Total Bilirubin AST ALT Alkaline Phosphatase Total Protein Albumin Imaging: Abdomen/Pelvis CT 02/17/18 00:00 CONCLUSION: 1. Small bilateral pleural effusions and bilateral lower lung opacity again seen. 2. Mild splenomegaly again seen. 3. Gastrostomy tube in place. 4. No evidence of bowel dilatation. 5. Heterotopic ossification about the left hip again seen. 6. Calcified adrenal glands again seen. 7. Enlarged inguinal lymph nodes again seen. Venous Doppler Study 02/18/18 00:00 CONCLUSION: 1. No DVT or SVT. 2. 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 This measures 3.6 x 2.2 x 2.2 cm and is predominantly thrombosed with a small, 6 x 9 mm patent component showing biphasic flow. Central Venous Line 02/22/18 00:00 CONCLUSION: 1. Uncomplicated tunneled central venous Power PICC line placement. 2. The PICC line can be used immediately. Foot MRI 02/22/18 00:00 CONCLUSION: 1. Findings most characteristic of early osteomyelitis at the medial aspect of the first metatarsal head and a tiny focus of probable osteomyelitis at the medial corner of the proximal phalanx great toe. Mild surrounding cellulitis. 2. Previous partial amputation fifth metatarsal. Extremity Arterial Study 02/26/18 00:00 CONCLUSION: 1. Normal ABIs bilaterally. Chest CT 03/05/18 00:00 CONCLUSION: 1. Bilateral effusions and diffuse bilateral consolidation. [place] Line Insertion 03/05/18 00:00 CONCLUSION: 1. Uncomplicated Acuna catheter placement as above. Chest X-Ray 03/07/18 00:00 CONCLUSION: No significant change. Diffuse bilateral parenchymal consolidation and small pleural effusions similar to before. Objective Remarks: GENERAL: Patient is 47 yo intubated and sedated SKIN: Warm and dry. HEAD: Normocephalic. EYES: No scleral icterus. No injection or drainage. NECK: Supple, trachea midline. No JVD or lymphadenopathy. CARDIOVASCULAR: Regular rate and rhythm without murmurs, gallops, or rubs. RESPIRATORY: Breath sounds equal bilaterally. No accessory muscle use. GASTROINTESTINAL: Abdomen soft, non-tender, nondistended. + PEG tube MUSCULOSKELETAL: No cyanosis, or edema. Neuro: Sedated, intubated Assessment and Plan - Assessment and Plan Plan: 1. VDRF 2. S/p PEA arrest 3. Diffuse bilateral pulmonary infiltrates, ddx aspiration pneumonia and fluid overload. 4. Hypertension. 5. Acute kidney injury. 6. History CVA with left-sided hemiparesis. 7. 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 8. Bilateral foot osteomyelitis methicillin-resistant Staphylococcus aureus. Plan Neuro: on fentanyl infusion for sedation. Daily sedation vacation. on Keppra 500 mg t.i.d. for a history of seizures. Pulm: Continue with ventilatory support and maintain sats> 92%. On PRVC RR 20, TV 600, IT:0.9, PEEP:8, FIO2: 45% Bronchodilators, ICU vent bundle. s/p diagnostic US guided thoracentesis 40ml removed ( transudative fluid ) Bronch with BAL 03/06 showed secretions L>R suctioned to clear, BAL performed LLL. BAL: GNR CV: Monitor HR and BP and maintain MAP> 65 mmHg. Echo showed EF 60-65% : Monitor renal function, I's and O's and avoid nephrotoxins. Renal eval. Continue with Free water 300ml Q6 monitor sodium level GI: On Prevacid 30 mg daily. Start tube feeds- Chnage tube feeds to Nepro with goal rate 40ml/hr ID: Continue with abx (ertapenem and daptomycin) ID is following Follow up on Blood and urine cx from 03/05- NGTD 03/05 Sputum cx: ESBL Klebsiella BAL cx 03/06: GNR Wound culture growing MRSA from osteomyelitis site. Heme: Monitor CBC and coags. s/p transfusion 2u PRBC 03/05 heme occult negative Endo: SSI with Accu-Cheks for glycemic control. On D10@30ml/hr GI prophylaxis- On Prevacid DVT prophylaxis- SCD, heparin SQ held for anemia requiring blood transfusion. IV access: RUE single lumen PICC line repositioned by IR 03/05 Condition critical Time spent on critical care excluding procedures 30 minutes
[2018-03-08] MEDS: levETIRAcetam 500 MG Tablet G-TUBE SCH ×3 (08:01→19:03)
[2018-03-08] MEDS: Ascorbic Acid 500 MG Tablet G-TUBE SCH ×2 (08:02→21:11)
--- NOTE | 2018-03-08 11:10 | P.CONNP ---
<JordanningAmparo ribeiro - Last Filed: 03/08/18 10:44> History of Present Illness Service: Nephrology Consult date: 03/08/18 Requesting Physician: Campbell Mcfarland Reason for Consult: Acute kidney failure Primary Care Provider: Doroteo Mackey MD Family Provider: Doroteo Mackey MD Chief Complaint: Abnormal lab including hemoglobin of 6.2 History of Present Illness: Patient is a 47-year-old male with a past medical history of a CVA with left- sided hemiparesis, hypertension, diabetes mellitus, anemia of chronic disease, CHF, dysphagia, status post PEG tube placement, depression, nonverbal, who was admitted under the hospitalist service on 02/17/2018 for acute on chronic anemia. Patient is intubated and sedated and all history is obtained from chart. During this admission patient declined and helicat was called for a PEA arrest. ACLS protocol was performed and now patient is intubated. He was found to be hypernatremic with sodium level of 156 and potassium level of 5.3. Nephrology is consulted for worsening renal indices with a creatinine of 2.76. During the admission his creatinine was noted to be as low as 1.07 on 02/26. Since the creatinine has been worsening. Sodium level at 149, HCO3 at 26.5. CT of pelvis on admission with kidney of normal in size and shape and no evidence of mass or hydronephrosis. Review of Systems unobtainable due to endotracheal tube, unobtainable due to mental condition PMFSH - History History Provided By: Family Member - Medical / Surgical Hx Neg / Unobtainable Medical Problems Denied: Unable to Obtain Surgical History: Unable to Obtain - Medical History Medical History: Medical History (Last Reviewed 02/26/18 @ 08:37 by Carlos Bonilla) Gastrostomy tube in place (Acute) Anemia CVA (cerebral vascular accident) Depression Diabetes HLD (hyperlipidemia) Hemiparesis Hemiplegia Hypertension - Family History Family History: Family History (Last Reviewed 02/21/18 @ 14:43 by Cris Paul MD) Other Unknown family medical history - Tobacco History Second Hand Smoke Exposure: No Smoking Status: Never smoker Tobacco Type: Cigarettes - Alcohol History How Often Do You Have a Drink Containing Alcohol: Never - Substance Use History Substance History: No History of Abuse - Travel History Recent Travel in the [facility] Within the Last 8 Weeks: No Recent Travel Out of the Country Within the Last 8 Weeks: No - Immunization History Tetanus Immunization: Unable to Assess Hx Influenza Vaccine This Season: Unable to Assess Medications and Allergies Allergies Allergy/AdvReac Type Severity Reaction Status Date / Time No Known Allergies Allergy Unknown Uncoded 01/06/18 21:04 Home Medications Medication Instructions Recorded Confirmed Type ascorbic acid (vitamin C) [Vitamin 500 mg PO BID 01/15/18 02/17/18 History C] aspirin [Aspir-81] 81 mg FEEDING TUBE DAILY 01/15/18 02/17/18 History atorvastatin 10 mg FEEDING TUBE HS 01/15/18 02/17/18 History carvedilol [Coreg] 25 mg FEEDING TUBE BID 01/15/18 02/17/18 History escitalopram oxalate 15 mg FEEDING TUBE DAILY 01/15/18 02/17/18 History gentamicin 1 applic TOPICAL QID 01/15/18 02/17/18 History hydralazine 100 mg PO TID 01/15/18 02/17/18 History insulin detemir U-100 [Levemir 5 unit SUB-Q BID 01/15/18 02/17/18 History U-100 Insulin] ipratropium-albuterol 3 ml INHALATION Q6-8H PRN 01/15/18 02/17/18 History levetiracetam 500 mg PO TID 01/15/18 02/17/18 History melatonin 3 mg FEEDING TUBE HS 01/15/18 02/17/18 History insulin aspart U-100 [Novolog 1 sliding scale dose SUB-Q UD 02/17/18 02/17/18 History U-100 Insulin aspart] Active Medications: Active Medications Al Hydroxide/Mg Hydroxide (Milk Of Nadiya Liq) 30 ml G-TUBE Q12H PRN PRN Reason: Mild Constipation Albuterol (Duoneb Neb (Prn)) 1 ampul NEB Q4HR NEB PRN PRN Reason: SHORTNESS OF BREATH/WHEEZING Last Admin: 03/08/18 03:31 Dose: 1 ampul Amlodipine Besylate (Norvasc) 10 mg G-TUBE DAILY [facility] Last Admin: 03/05/18 09:12 Dose: Not Given Ascorbic Acid (Vitamin C) 500 mg G-TUBE BID [facility] Last Admin: 03/08/18 08:02 Dose: 500 mg Atorvastatin Calcium (Lipitor) 10 mg G-TUBE [facility] Last Admin: 03/07/18 20:58 Dose: 10 mg Bisacodyl (Dulcolax Supp) 10 mg RECTAL DAILY PRN PRN Reason: SEVERE CONSITIPATION Carvedilol (Coreg) 25 mg G-TUBE BID [facility] Last Admin: 03/05/18 09:11 Dose: Not Given Chlorhexidine Gluconate (Chlorhexidine 2% Cloth) 3 pack TOPICAL DAILY@0400 KRISTIE Stop: 03/09/18 03:59 Last Admin: 03/08/18 05:57 Dose: 3 pack Chlorhexidine Gluconate (Chlorhexidine 2% Cloth) 3 pack TOPICAL DAILY@0400 PRN PRN Reason: Extra cloth needed Stop: 03/09/18 03:59 Dextrose (D50w Vial) 50 ml IV.PUSH UNSCH PRN PRN Reason: PER HYPOGLYCEMIA PROTOCOL Last Admin: 03/08/18 08:22 Dose: 50 ml Enalaprilat (Vasotec Inj) 2.5 mg IV.PUSH Q6H PRN PRN Reason: SBP>160, DBP>90 Last Admin: 02/21/18 01:34 Dose: 2.5 mg Escitalopram Oxalate (Lexapro) 15 mg G-TUBE DAILY [facility] Last Admin: 03/06/18 08:05 Dose: 15 mg Glucagon (Glucagon Inj) 1 mg OTHER PRN PRN PRN Reason: for Hypoglycemia Protocol Heparin Sodium (Porcine) (Heparin Inj) 5,000 units SQ Q12HR [facility] Last Admin: 03/05/18 09:25 Dose: 5,000 units Hydralazine HCl (Apresoline) 100 mg G-TUBE TID [facility] Last Admin: 03/05/18 09:11 Dose: Not Given Fentanyl (Fentanyl 10 Mcg/Ml Premix Drip) 2,500 mcg in 250 mls @ 5 mls/hr IV.SIG TITRATE PRN; Protocol PRN Reason: Per Protocol Last Admin: 03/08/18 03:03 Dose: 250 mcg/hr, 25 mls/hr Midazolam HCl (Versed Inj) 50 mg in 50 mls @ 2 mls/hr IV.CONT TITRATE PRN; Protocol PRN Reason: Per Protocol Last Titration: 03/06/18 16:04 Dose: Infused Norepinephrine Bitartrate (Levophed-Dextrose 4 Mg/250 Ml Drip) 4 mg in 250 mls @ 7.5 mls/hr IV.SIG TITRATE PRN; Protocol PRN Reason: Per Protocol Last Titration: 03/06/18 16:04 Dose: Infused Levofloxacin/Dextrose (Levaquin 750 Mg Premix Inj) 150 mls @ 100 mls/hr IV.SIG Q48H KRISTIE Last Admin: 03/08/18 08:02 Dose: 100 mls/hr Ertapenem 1,000 mg/ Sodium (Chloride) 100 mls @ 200 mls/hr IV.SIG Q24H KRISTIE Last Admin: 03/07/18 12:33 Dose: 200 mls/hr Daptomycin 1,000 mg/ Sodium (Chloride) 100 mls @ 200 mls/hr IV.SIG Q24H KRISTIE Last Admin: 03/07/18 16:50 Dose: 200 mls/hr Dextrose (D10w Inj) 500 mls @ 30 mls/hr IV.SIG .[id number] [facility] Last Admin: 03/08/18 06:02 Dose: 30 mls/hr Insulin Human Regular (Novolin R Correctional Sugar Inj) 0 units SQ Q4HR [facility]; Protocol Last Admin: 03/08/18 05:57 Dose: Not Given Lactulose (Lactulose Liq) 30 ml G-TUBE DAILY PRN PRN Reason: SEVERE CONSITIPATION Lansoprazole (Prevacid Solutab) 30 mg NG/OG DAILY [facility] Last Admin: 03/08/18 08:03 Dose: 30 mg Levetiracetam (Keppra) 500 mg G-TUBE TID [facility] Last Admin: 03/08/18 08:01 Dose: 500 mg Miscellaneous (Pill Splitter) 1 each OTHER ONCE [facility] Ondansetron HCl (Zofran Inj) 4 mg IV.PUSH Q6H PRN PRN Reason: NAUSEA OR VOMITING Last Admin: 02/27/18 12:25 Dose: 4 mg Senna/Docusate Sodium (Jessie-Colace) 1 tab G-TUBE BID [facility] Last Admin: 03/07/18 20:59 Dose: Not Given Sennosides (Senokot) 17.2 mg PO Q12H PRN PRN Reason: Moderate Constipation Sterile Water (Free Water) 300 ml G-TUBE Q6HR [facility] Last Admin: 03/08/18 05:57 Dose: 300 ml Temazepam (Restoril) 15 mg PO HS PRN PRN Reason: INSOMNIA Last Admin: 03/01/18 21:33 Dose: 15 mg Terbutaline Sulfate (Brethine Inj) 1 mg SQ UNSCH PRN PRN Reason: For Extravasation Exam Vital signs: Vital Signs 03/07/18 10:45 03/07/18 11:00 03/07/18 11:16 Temperature Pulse Rate 93 H 94 H 95 H Respiratory Rate 20 20 20 Blood Pressure 110/71 128/61 97/53 L Pulse Oximetry 94 L 92 L 93 L 03/07/18 11:30 03/07/18 11:45 03/07/18 12:00 Temperature Pulse Rate 93 H 94 H 92 H Respiratory Rate 20 20 20 Blood Pressure 104/73 95/58 L 103/63 Pulse Oximetry 94 L 94 L 94 L 03/07/18 12:15 03/07/18 12:23 03/07/18 12:30 Temperature Pulse Rate 92 H 94 H Respiratory Rate 20 20 20 Blood Pressure 103/63 97/60 L Pulse Oximetry 94 L 93 L 92 L 03/07/18 12:45 03/07/18 13:00 03/07/18 13:15 Temperature Pulse Rate 95 H 95 H 93 H Respiratory Rate 21 26 H 20 Blood Pressure 106/61 110/71 101/64 Pulse Oximetry 93 L 93 L 91 L 03/07/18 13:45 03/07/18 14:00 03/07/18 14:15 Temperature Pulse Rate 95 H 95 H 92 H Respiratory Rate 22 16 20 Blood Pressure 108/63 107/63 109/62 Pulse Oximetry 93 L 90 L 94 L 03/07/18 14:30 03/07/18 14:45 03/07/18 15:00 Temperature Pulse Rate 95 H 93 H 92 H Respiratory Rate 20 20 20 Blood Pressure 108/73 110/71 Pulse Oximetry 89 L 95 93 L 03/07/18 15:01 03/07/18 15:15 03/07/18 15:30 Temperature Pulse Rate 95 H 96 H 96 H Respiratory Rate 20 20 24 Blood Pressure 131/71 101/58 L 107/64 Pulse Oximetry 94 L 94 L 96 03/07/18 15:45 03/07/18 16:00 03/07/18 16:15 Temperature Pulse Rate 96 H 96 H 94 H Respiratory Rate 21 23 22 Blood Pressure 105/68 109/66 109/66 Pulse Oximetry 95 96 95 03/07/18 16:30 03/07/18 16:45 03/07/18 17:00 Temperature Pulse Rate 93 H 93 H 93 H Respiratory Rate 22 21 20 Blood Pressure 110/66 117/74 106/61 Pulse Oximetry 96 95 96 03/07/18 17:15 03/07/18 17:30 03/07/18 17:45 Temperature Pulse Rate 92 H 93 H 91 H Respiratory Rate 20 20 20 Blood Pressure 103/58 L 98/59 L 102/60 Pulse Oximetry 96 97 89 L 03/07/18 18:00 03/07/18 18:15 03/07/18 18:30 Temperature Pulse Rate 96 H 97 H 99 H Respiratory Rate 0 L 0 L 0 L Blood Pressure 109/59 L 111/70 101/60 Pulse Oximetry 03/07/18 18:45 03/07/18 19:00 03/07/18 19:15 Temperature Pulse Rate 100 H 98 H 97 H Respiratory Rate 0 L 20 20 Blood Pressure 97/56 L 103/71 108/61 Pulse Oximetry 93 L 03/07/18 19:30 03/07/18 19:45 03/07/18 20:00 Temperature 101 F H Pulse Rate 96 H 96 H 98 H Respiratory Rate 22 25 H 21 Blood Pressure 101/60 102/69 103/59 L Pulse Oximetry 95 95 94 L 03/07/18 20:03 03/07/18 20:15 03/07/18 20:30 Temperature Pulse Rate 97 H 98 H Respiratory Rate 21 17 18 Blood Pressure 110/70 109/73 Pulse Oximetry 94 L 92 L 98 03/07/18 20:45 03/07/18 21:00 03/07/18 21:15 Temperature Pulse Rate 101 H 97 H 97 H Respiratory Rate 16 14 20 Blood Pressure 113/71 103/60 98/60 L Pulse Oximetry 97 96 95 03/07/18 21:30 03/07/18 21:45 03/07/18 22:00 Temperature Pulse Rate 100 H 100 H 98 H Respiratory Rate 18 10 L 3 L Blood Pressure 115/82 119/60 103/57 L Pulse Oximetry 94 L 92 L 95 03/07/18 22:15 03/07/18 22:30 03/07/18 22:45 Temperature Pulse Rate 98 H 98 H 97 H Respiratory Rate 8 L 5 L 15 Blood Pressure 98/58 L 107/60 98/60 L Pulse Oximetry 95 91 L 93 L 03/07/18 23:00 03/07/18 23:09 03/07/18 23:15 Temperature Pulse Rate 96 H 98 H Respiratory Rate 13 20 5 L Blood Pressure 96/63 L 104/63 Pulse Oximetry 91 L 95 03/07/18 23:30 03/07/18 23:45 03/08/18 00:00 Temperature 100.1 F H Pulse Rate 96 H 101 H 96 H Respiratory Rate 18 21 13 Blood Pressure 97/60 L 101/72 105/64 Pulse Oximetry 95 87 L 79 L 03/08/18 00:15 03/08/18 01:54 03/08/18 02:00 Temperature Pulse Rate 100 H 96 H Respiratory Rate 3 L 20 Blood Pressure 109/60 Pulse Oximetry 92 L 94 L 03/08/18 03:31 03/08/18 03:45 03/08/18 04:00 Temperature 100.2 F H Pulse Rate 96 H 97 H 101 H Respiratory Rate 21 20 24 Blood Pressure 108/68 113/64 Pulse Oximetry 93 L 03/08/18 04:15 03/08/18 04:30 03/08/18 04:45 Temperature Pulse Rate 101 H 100 H 97 H Respiratory Rate 20 20 20 Blood Pressure 107/59 L 103/61 97/57 L Pulse Oximetry 95 03/08/18 05:00 03/08/18 05:07 03/08/18 05:15 Temperature Pulse Rate 97 H 96 H Respiratory Rate 20 21 20 Blood Pressure 102/58 L 99/59 L Pulse Oximetry 97 95 03/08/18 05:30 03/08/18 05:45 03/08/18 06:00 Temperature Pulse Rate 96 H 96 H 96 H Respiratory Rate 20 20 20 Blood Pressure 97/57 L 107/63 110/63 Pulse Oximetry 95 95 96 03/08/18 06:15 03/08/18 06:30 03/08/18 06:45 Temperature Pulse Rate 90 91 H 90 Respiratory Rate 20 20 20 Blood Pressure 104/61 101/60 99/61 L Pulse Oximetry 94 L 94 L 94 L 03/08/18 07:00 03/08/18 07:15 03/08/18 07:30 Temperature Pulse Rate 91 H 93 H 93 H Respiratory Rate 20 20 20 Blood Pressure 99/60 L 107/63 115/68 Pulse Oximetry 95 96 95 03/08/18 07:45 03/08/18 08:00 03/08/18 08:15 Temperature Pulse Rate 92 H 93 H 100 H Respiratory Rate 24 21 20 Blood Pressure 106/66 106/70 116/73 Pulse Oximetry 96 96 95 03/08/18 08:30 03/08/18 08:45 03/08/18 09:00 Temperature Pulse Rate 96 H 93 H 93 H Respiratory Rate 20 19 20 Blood Pressure 115/74 103/66 98/58 L Pulse Oximetry 94 L 95 95 03/08/18 09:15 03/08/18 09:30 03/08/18 09:45 Temperature Pulse Rate 92 H 93 H 91 H Respiratory Rate 20 20 20 Blood Pressure 94/56 L 96/56 L 104/71 Pulse Oximetry 93 L 95 95 Intake & Output 03/07/18 03/08/18 03/08/18 18:59 06:59 18:59 Intake Total 1111 / 1111 1571 / 1571 Output Total 0 / 0 400 / 400 Balance 1111 / 1111 1171 / 1171 Weight 93.2 kg Intake: IV 750 / 750 D10W Inj 500 ML @ 30 mls/hr IV. 500 / 500 SIG .[id number] [facility] Rx#:[id number] fentaNYL 10 mcg/mL Premix Drip 250 / 250 2,500 mcg In 250 ml @ 50 MCG/HR 5 mls/hr IV.SIG TITRATE PRN Rx #:[id number] Tube Feeding 331 / 331 521 / 521 Tube Irrigant 180 / 180 Water Bolus Amount 600 / 600 300 / 300 Output: Stool 0 / 0 Urine Amount (Catheter) 400 / 400 Indwelling Urethral Catheter 400 / 400 Other: Date of Last Bowel Movement 03/05/18 03/08/18 03/05/18 # Bowel Movements 0 1 Narrative: GENERAL: Orally intubated and sedated. SKIN: Warm and dry. HEAD: Normocephalic. EYES: No scleral icterus. No injection or drainage. NECK: Supple, trachea midline. No JVD or lymphadenopathy. CARDIOVASCULAR: Regular rate and rhythm without murmurs, gallops, or rubs. RESPIRATORY: Breath sounds equal bilaterally. No accessory muscle use. GASTROINTESTINAL: Abdomen soft, non-tender, nondistended. + PEG tube MUSCULOSKELETAL: No cyanosis, or edema. Results - Lab Results 03/08/18 04:57 03/08/18 04:57 Most recent lab results ABG pH 7.37 (7.380-7.420) L 03/06/18 08:45 ABG pCO2 46 mmHg (38-42) H 03/06/18 08:45 ABG pO2 76 mmHG (61-120) 03/06/18 08:45 ABG HCO3 26 mmol/L (22-26) 03/06/18 08:45 Calcium 8.0 mg/dL (8.5-10.1) L 03/08/18 04:57 Phosphorus 3.6 mg/dL (2.5-4.9) 02/24/18 10:02 Magnesium 2.4 mg/dL (1.5-2.5) 02/24/18 10:02 Assessment and Plan - Assessment (1) Acute kidney injury Code(s): N17.9 - Acute kidney failure, unspecified Status: Acute Plan: Acute kidney injury with a creatinine of 2.76 with worsening since the . Acute kidney injury possible related to vancomycin toxicity last dose on the Creatinine noted to be 1.07 on 02/26. CT of pelvis on admission with kidney of normal in size and shape and no evidence of mass or hydronephrosis. Plan Avoid nephrotoxins including IV contrast, NSAIDS,and aminoglycosides. Maintain strict I+o, maintain indwelling Dudley catheter Will monitor urinary output and BMP Urine EOS is pending Will order serology, urine studies, and SPEP (2) Anemia of chronic disorder Code(s): D63.8 - Anemia in other chronic diseases classified elsewhere Status : Acute Plan: HGB stable at 7.4 Iron profile ordered. (3) Hypernatremia Code(s): E87.0 - Hyperosmolality and hypernatremia Status: Acute Plan: Sodium level is improving at 149, continue free water 300ml every 6 hours. <Juan Gregg - Last Filed: 03/08/18 19:04> History of Present Illness Primary Care Provider: Doroteo Mackey MD Family Provider: Doroteo Mackey MD [facility] - Medical History Medical History: Medical History (Last Reviewed 02/26/18 @ 08:37 by Carlos Bonilla) Gastrostomy tube in place (Acute) Anemia CVA (cerebral vascular accident) Depression Diabetes HLD (hyperlipidemia) Hemiparesis Hemiplegia Hypertension - Family History Family History: Family History (Last Reviewed 02/21/18 @ 14:43 by Cris Paul MD) Other Unknown family medical history Medications and Allergies Active Medications: Active Medications Al Hydroxide/Mg Hydroxide (Milk Of Magnsimón Liq) 30 ml G-TUBE Q12H PRN PRN Reason: Mild Constipation Albuterol (Duoneb Neb (Prn)) 1 ampul NEB Q4HR NEB PRN PRN Reason: SHORTNESS OF BREATH/WHEEZING Last Admin: 03/08/18 16:46 Dose: 1 ampul Amlodipine Besylate (Norvasc) 10 mg G-TUBE DAILY [facility] Last Admin: 03/05/18 09:12 Dose: Not Given Ascorbic Acid (Vitamin C) 500 mg G-TUBE BID [facility] Last Admin: 03/08/18 08:02 Dose: 500 mg Atorvastatin Calcium (Lipitor) 10 mg G-TUBE HS [facility] Last Admin: 03/07/18 20:58 Dose: 10 mg Bisacodyl (Dulcolax Supp) 10 mg RECTAL DAILY PRN PRN Reason: SEVERE CONSITIPATION Carvedilol (Coreg) 25 mg G-TUBE BID [facility] Last Admin: 03/05/18 09:11 Dose: Not Given Chlorhexidine Gluconate (Chlorhexidine 2% Cloth) 3 pack TOPICAL DAILY@0400 [facility] Stop: 03/09/18 03:59 Last Admin: 03/08/18 05:57 Dose: 3 pack Chlorhexidine Gluconate (Chlorhexidine 2% Cloth) 3 pack TOPICAL DAILY@0400 PRN PRN Reason: Extra cloth needed Stop: 03/09/18 03:59 Dextrose (D50w Vial) 50 ml IV.PUSH UNSCH PRN PRN Reason: PER HYPOGLYCEMIA PROTOCOL Last Admin: 03/08/18 08:22 Dose: 50 ml Enalaprilat (Vasotec Inj) 2.5 mg IV.PUSH Q6H PRN PRN Reason: SBP>160, DBP>90 Last Admin: 02/21/18 01:34 Dose: 2.5 mg Escitalopram Oxalate (Lexapro) 15 mg G-TUBE DAILY [facility] Last Admin: 03/06/18 08:05 Dose: 15 mg Glucagon (Glucagon Inj) 1 mg OTHER PRN PRN PRN Reason: for Hypoglycemia Protocol Heparin Sodium (Porcine) (Heparin Inj) 5,000 units SQ Q12HR [facility] Last Admin: 03/05/18 09:25 Dose: 5,000 units Hydralazine HCl (Apresoline) 100 mg G-TUBE TID [facility] Last Admin: 03/05/18 09:11 Dose: Not Given Fentanyl (Fentanyl 10 Mcg/Ml Premix Drip) 2,500 mcg in 250 mls @ 5 mls/hr IV.SIG TITRATE PRN; Protocol PRN Reason: Per Protocol Last Admin: 03/08/18 03:03 Dose: 250 mcg/hr, 25 mls/hr Midazolam HCl (Versed Inj) 50 mg in 50 mls @ 2 mls/hr IV.CONT TITRATE PRN; Protocol PRN Reason: Per Protocol Last Titration: 03/06/18 16:04 Dose: Infused Norepinephrine Bitartrate (Levophed-Dextrose 4 Mg/250 Ml Drip) 4 mg in 250 mls @ 7.5 mls/hr IV.SIG TITRATE PRN; Protocol PRN Reason: Per Protocol Last Titration: 03/06/18 16:04 Dose: Infused Dextrose (D10w Inj) 500 mls @ 30 mls/hr IV.SIG .[id number] [facility] Last Admin: 03/08/18 06:02 Dose: 30 mls/hr Meropenem 1,000 mg/ Sodium (Chloride) 100 mls @ 200 mls/hr IV.SIG Q12H [facility]ST[facility] Linezolid (Zyvox 200 Mg Premix) 100 mls @ 100 mls/hr IV.SIG Q12H KRISTIE Insulin Human Regular (Novolin R Correctional Sugar Inj) 0 units SQ Q4HR KRISTIE; Protocol Last Admin: 03/08/18 17:06 Dose: Not Given Lactulose (Lactulose Liq) 30 ml G-TUBE DAILY PRN PRN Reason: SEVERE CONSITIPATION Lansoprazole (Prevacid Solutab) 30 mg NG/OG DAILY [facility] Last Admin: 03/08/18 08:03 Dose: 30 mg Levetiracetam (Keppra) 500 mg G-TUBE TID [facility] Last Admin: 03/08/18 19:03 Dose: 500 mg Miscellaneous (Pill Splitter) 1 each OTHER ONCE [facility] Ondansetron HCl (Zofran Inj) 4 mg IV.PUSH Q6H PRN PRN Reason: NAUSEA OR VOMITING Last Admin: 02/27/18 12:25 Dose: 4 mg Senna/Docusate Sodium (Jessie-Colace) 1 tab G-TUBE BID [facility] Last Admin: 03/08/18 13:03 Dose: Not Given Sennosides (Senokot) 17.2 mg PO Q12H PRN PRN Reason: Moderate Constipation Sterile Water (Free Water) 300 ml G-TUBE Q6HR [facility] Last Admin: 03/08/18 19:03 Dose: 300 ml Temazepam (Restoril) 15 mg PO HS PRN PRN Reason: INSOMNIA Last Admin: 03/01/18 21:33 Dose: 15 mg Terbutaline Sulfate (Brethine Inj) 1 mg SQ UNSCH PRN PRN Reason: For Extravasation Exam Vital signs: Vital Signs 03/07/18 19:15 03/07/18 19:30 03/07/18 19:45 Temperature Pulse Rate 97 H 96 H 96 H Respiratory Rate 20 22 25 H Blood Pressure 108/61 101/60 102/69 Pulse Oximetry 93 L 95 95 03/07/18 20:00 03/07/18 20:03 03/07/18 20:15 Temperature 101 F H Pulse Rate 98 H 97 H Respiratory Rate 21 21 17 Blood Pressure 103/59 L 110/70 Pulse Oximetry 94 L 94 L 92 L 03/07/18 20:30 03/07/18 20:45 03/07/18 21:00 Temperature Pulse Rate 98 H 101 H 97 H Respiratory Rate 18 16 14 Blood Pressure 109/73 113/71 103/60 Pulse Oximetry 98 97 96 03/07/18 21:15 03/07/18 21:30 03/07/18 21:45 Temperature Pulse Rate 97 H 100 H 100 H Respiratory Rate 20 18 10 L Blood Pressure 98/60 L 115/82 119/60 Pulse Oximetry 95 94 L 92 L 03/07/18 22:00 03/07/18 22:15 03/07/18 22:30 Temperature Pulse Rate 98 H 98 H 98 H Respiratory Rate 3 L 8 L 5 L Blood Pressure 103/57 L 98/58 L 107/60 Pulse Oximetry 95 95 91 L 03/07/18 22:45 03/07/18 23:00 03/07/18 23:09 Temperature Pulse Rate 97 H 96 H Respiratory Rate 15 13 20 Blood Pressure 98/60 L 96/63 L Pulse Oximetry 93 L 91 L 95 03/07/18 23:15 03/07/18 23:30 03/07/18 23:45 Temperature Pulse Rate 98 H 96 H 101 H Respiratory Rate 5 L 18 21 Blood Pressure 104/63 97/60 L 101/72 Pulse Oximetry 95 87 L 03/08/18 00:00 03/08/18 00:15 03/08/18 01:54 Temperature 100.1 F H Pulse Rate 96 H 100 H Respiratory Rate 13 3 L 20 Blood Pressure 105/64 109/60 Pulse Oximetry 79 L 92 L 94 L 03/08/18 02:00 03/08/18 03:31 03/08/18 03:45 Temperature Pulse Rate 96 H 96 H 97 H Respiratory Rate 21 20 Blood Pressure 108/68 Pulse Oximetry 93 L 03/08/18 04:00 03/08/18 04:15 03/08/18 04:30 Temperature 100.2 F H Pulse Rate 101 H 101 H 100 H Respiratory Rate 24 20 20 Blood Pressure 113/64 107/59 L 103/61 Pulse Oximetry 03/08/18 04:45 03/08/18 05:00 03/08/18 05:07 Temperature Pulse Rate 97 H 97 H Respiratory Rate 20 20 21 Blood Pressure 97/57 L 102/58 L Pulse Oximetry 95 97 03/08/18 05:15 03/08/18 05:30 03/08/18 05:45 Temperature Pulse Rate 96 H 96 H 96 H Respiratory Rate 20 20 20 Blood Pressure 99/59 L 97/57 L 107/63 Pulse Oximetry 95 95 95 03/08/18 06:00 03/08/18 06:15 03/08/18 06:30 Temperature Pulse Rate 96 H 90 91 H Respiratory Rate 20 20 20 Blood Pressure 110/63 104/61 101/60 Pulse Oximetry 96 94 L 94 L 03/08/18 06:45 03/08/18 07:00 03/08/18 07:15 Temperature Pulse Rate 90 91 H 93 H Respiratory Rate 20 20 20 Blood Pressure 99/61 L 99/60 L 107/63 Pulse Oximetry 94 L 95 96 03/08/18 07:30 03/08/18 07:45 03/08/18 08:00 Temperature Pulse Rate 93 H 92 H 93 H Respiratory Rate 20 24 21 Blood Pressure 115/68 106/66 106/70 Pulse Oximetry 95 96 96 03/08/18 08:15 03/08/18 08:30 03/08/18 08:45 Temperature Pulse Rate 100 H 96 H 93 H Respiratory Rate 20 20 19 Blood Pressure 116/73 115/74 103/66 Pulse Oximetry 95 94 L 95 03/08/18 09:00 03/08/18 09:15 03/08/18 09:30 Temperature Pulse Rate 93 H 92 H 93 H Respiratory Rate 20 20 20 Blood Pressure 98/58 L 94/56 L 96/56 L Pulse Oximetry 95 93 L 95 03/08/18 09:45 03/08/18 11:15 03/08/18 11:30 Temperature Pulse Rate 91 H 95 H 91 H Respiratory Rate 20 20 23 Blood Pressure 104/71 110/66 Pulse Oximetry 95 03/08/18 11:45 03/08/18 12:00 03/08/18 12:01 Temperature Pulse Rate 93 H 91 H 92 H Respiratory Rate 19 20 22 Blood Pressure 110/70 107/74 Pulse Oximetry 03/08/18 12:15 03/08/18 12:24 03/08/18 12:30 Temperature Pulse Rate 91 H 92 H Respiratory Rate 20 20 20 Blood Pressure 105/67 102/64 Pulse Oximetry 99 03/08/18 12:45 03/08/18 13:00 03/08/18 13:15 Temperature Pulse Rate 92 H 93 H 92 H Respiratory Rate 20 20 16 Blood Pressure 106/70 110/73 103/68 Pulse Oximetry 03/08/18 13:30 03/08/18 13:45 03/08/18 14:00 Temperature Pulse Rate 91 H 92 H 91 H Respiratory Rate 20 20 20 Blood Pressure 111/74 107/65 99/59 L Pulse Oximetry 03/08/18 14:15 03/08/18 14:30 03/08/18 14:45 Temperature Pulse Rate 90 91 H 91 H Respiratory Rate 20 20 20 Blood Pressure 100/61 98/61 L 104/62 Pulse Oximetry 03/08/18 15:00 03/08/18 15:15 03/08/18 15:30 Temperature Pulse Rate 91 H 91 H 92 H Respiratory Rate 20 20 20 Blood Pressure 121/63 102/61 102/61 Pulse Oximetry 87 L 03/08/18 15:45 03/08/18 16:00 03/08/18 16:15 Temperature Pulse Rate 90 92 H 90 Respiratory Rate 20 20 19 Blood Pressure 108/64 106/65 112/67 Pulse Oximetry 100 54 L 91 L 03/08/18 16:30 03/08/18 16:45 03/08/18 16:48 Temperature Pulse Rate 93 H 90 91 H Respiratory Rate 21 20 20 Blood Pressure 116/82 113/75 Pulse Oximetry 90 L 99 99 03/08/18 17:00 03/08/18 17:15 03/08/18 17:30 Temperature Pulse Rate 95 H 93 H 95 H Respiratory Rate 20 20 20 Blood Pressure 117/74 118/74 121/74 Pulse Oximetry 03/08/18 17:45 03/08/18 18:00 03/08/18 18:15 Temperature Pulse Rate 92 H 93 H 95 H Respiratory Rate 20 20 20 Blood Pressure 114/73 129/75 135/80 Pulse Oximetry 97 03/08/18 18:30 03/08/18 18:45 Temperature Pulse Rate 104 H 96 H Respiratory Rate 20 20 Blood Pressure 138/78 123/81 Pulse Oximetry 91 L 97 Intake & Output 03/08/18 03/08/18 03/09/18 06:59 18:59 06:59 Intake Total 1571 / 1571 1480 / 1480 Output Total 400 / 400 900 / 900 Balance 1171 / 1171 580 / 580 Weight 93.2 kg Intake: IV 750 / 750 D10W Inj 500 ML @ 30 mls/hr IV. 500 / 500 SIG .[id number] [facility] Rx#:[id number] fentaNYL 10 mcg/mL Premix Drip 250 / 250 2,500 mcg In 250 ml @ 50 MCG/HR 5 mls/hr IV.SIG TITRATE PRN Rx #:[id number] Tube Feeding 521 / 521 480 / 480 Tube Irrigant 100 / 100 Water Bolus Amount 300 / 300 900 / 900 Output: Urine Amount (Catheter) 400 / 400 900 / 900 Indwelling Urethral Catheter 400 / 400 900 / 900 Other: Date of Last Bowel Movement 03/08/18 03/05/18 # Bowel Movements 1 1 Results - Lab Results 03/08/18 04:57 03/08/18 04:57 Most recent lab results ABG pH 7.37 (7.380-7.420) L 03/06/18 08:45 ABG pCO2 46 mmHg (38-42) H 03/06/18 08:45 ABG pO2 76 mmHG (61-120) 03/06/18 08:45 ABG HCO3 26 mmol/L (22-26) 03/06/18 08:45 Calcium 8.0 mg/dL (8.5-10.1) L 03/08/18 04:57 Phosphorus 3.6 mg/dL (2.5-4.9) 02/24/18 10:02 Magnesium 2.4 mg/dL (1.5-2.5) 02/24/18 10:02 Assessment and Plan - Assessment (1) Acute kidney injury Code(s): N17.9 - Acute kidney failure, unspecified Status: Acute (2) Anemia of chronic disorder Code(s): D63.8 - Anemia in other chronic diseases classified elsewhere Status : Acute (3) Hypernatremia Code(s): E87.0 - Hyperosmolality and hypernatremia Status: Acute - Attending Attestation Patient seen and examined; records reviewed; agree with the plan and recommendations of the [facility] AD[facility]
[2018-03-08] MEDS: Senna/Docusate Sodium 8.6/50 MG Tablet G-TUBE SCH ×2 (13:03→21:18)
[2018-03-08] MEDS: ERTAPENEM IV.SIG SCH (13:04)
[2018-03-08] MEDS: SODIUM CHLOR 0.9% IV.SIG SCH (13:04)
[2018-03-08] MEDS: DAPTOmycin Inj 1,000 MG in Sodium Chlor 0.9% Inj 100 ML IV.SIG SCH (14:00)
--- NOTE | 2018-03-08 17:43 | P.PNPL ---
Subjective Interval history: 47 YO AA male with CVA,DM, Bilat infilt, pl eff On Vent, fi02 45% On Fentanyl Opens eyes Had hypoglycemia, on D10 drip Physical Exam Vital signs: Vital Signs 03/07/18 17:45 03/07/18 18:00 03/07/18 18:15 Temperature Pulse Rate 91 H 96 H 97 H Respiratory Rate 20 0 L 0 L Blood Pressure 102/60 109/59 L 111/70 Pulse Oximetry 89 L 03/07/18 18:30 03/07/18 18:45 03/07/18 19:00 Temperature Pulse Rate 99 H 100 H 98 H Respiratory Rate 0 L 0 L 20 Blood Pressure 101/60 97/56 L 103/71 Pulse Oximetry 03/07/18 19:15 03/07/18 19:30 03/07/18 19:45 Temperature Pulse Rate 97 H 96 H 96 H Respiratory Rate 20 22 25 H Blood Pressure 108/61 101/60 102/69 Pulse Oximetry 93 L 95 95 03/07/18 20:00 03/07/18 20:03 03/07/18 20:15 Temperature 101 F H Pulse Rate 98 H 97 H Respiratory Rate 21 21 17 Blood Pressure 103/59 L 110/70 Pulse Oximetry 94 L 94 L 92 L 03/07/18 20:30 03/07/18 20:45 03/07/18 21:00 Temperature Pulse Rate 98 H 101 H 97 H Respiratory Rate 18 16 14 Blood Pressure 109/73 113/71 103/60 Pulse Oximetry 98 97 96 03/07/18 21:15 03/07/18 21:30 03/07/18 21:45 Temperature Pulse Rate 97 H 100 H 100 H Respiratory Rate 20 18 10 L Blood Pressure 98/60 L 115/82 119/60 Pulse Oximetry 95 94 L 92 L 03/07/18 22:00 03/07/18 22:15 03/07/18 22:30 Temperature Pulse Rate 98 H 98 H 98 H Respiratory Rate 3 L 8 L 5 L Blood Pressure 103/57 L 98/58 L 107/60 Pulse Oximetry 95 95 91 L 03/07/18 22:45 03/07/18 23:00 03/07/18 23:09 Temperature Pulse Rate 97 H 96 H Respiratory Rate 15 13 20 Blood Pressure 98/60 L 96/63 L Pulse Oximetry 93 L 91 L 95 03/07/18 23:15 03/07/18 23:30 03/07/18 23:45 Temperature Pulse Rate 98 H 96 H 101 H Respiratory Rate 5 L 18 21 Blood Pressure 104/63 97/60 L 101/72 Pulse Oximetry 95 87 L 03/08/18 00:00 03/08/18 00:15 03/08/18 01:54 Temperature 100.1 F H Pulse Rate 96 H 100 H Respiratory Rate 13 3 L 20 Blood Pressure 105/64 109/60 Pulse Oximetry 79 L 92 L 94 L 03/08/18 02:00 03/08/18 03:31 03/08/18 03:45 Temperature Pulse Rate 96 H 96 H 97 H Respiratory Rate 21 20 Blood Pressure 108/68 Pulse Oximetry 93 L 03/08/18 04:00 03/08/18 04:15 03/08/18 04:30 Temperature 100.2 F H Pulse Rate 101 H 101 H 100 H Respiratory Rate 24 20 20 Blood Pressure 113/64 107/59 L 103/61 Pulse Oximetry 03/08/18 04:45 03/08/18 05:00 03/08/18 05:07 Temperature Pulse Rate 97 H 97 H Respiratory Rate 20 20 21 Blood Pressure 97/57 L 102/58 L Pulse Oximetry 95 97 03/08/18 05:15 03/08/18 05:30 03/08/18 05:45 Temperature Pulse Rate 96 H 96 H 96 H Respiratory Rate 20 20 20 Blood Pressure 99/59 L 97/57 L 107/63 Pulse Oximetry 95 95 95 03/08/18 06:00 03/08/18 06:15 03/08/18 06:30 Temperature Pulse Rate 96 H 90 91 H Respiratory Rate 20 20 20 Blood Pressure 110/63 104/61 101/60 Pulse Oximetry 96 94 L 94 L 03/08/18 06:45 03/08/18 07:00 03/08/18 07:15 Temperature Pulse Rate 90 91 H 93 H Respiratory Rate 20 20 20 Blood Pressure 99/61 L 99/60 L 107/63 Pulse Oximetry 94 L 95 96 03/08/18 07:30 03/08/18 07:45 03/08/18 08:00 Temperature Pulse Rate 93 H 92 H 93 H Respiratory Rate 20 24 21 Blood Pressure 115/68 106/66 106/70 Pulse Oximetry 95 96 96 03/08/18 08:15 03/08/18 08:30 03/08/18 08:45 Temperature Pulse Rate 100 H 96 H 93 H Respiratory Rate 20 20 19 Blood Pressure 116/73 115/74 103/66 Pulse Oximetry 95 94 L 95 03/08/18 09:00 03/08/18 09:15 03/08/18 09:30 Temperature Pulse Rate 93 H 92 H 93 H Respiratory Rate 20 20 20 Blood Pressure 98/58 L 94/56 L 96/56 L Pulse Oximetry 95 93 L 95 03/08/18 09:45 03/08/18 11:15 03/08/18 11:30 Temperature Pulse Rate 91 H 95 H 91 H Respiratory Rate 20 20 23 Blood Pressure 104/71 110/66 Pulse Oximetry 95 03/08/18 11:45 03/08/18 12:00 03/08/18 12:01 Temperature Pulse Rate 93 H 91 H 92 H Respiratory Rate 19 20 22 Blood Pressure 110/70 107/74 Pulse Oximetry 03/08/18 12:15 03/08/18 12:24 03/08/18 12:30 Temperature Pulse Rate 91 H 92 H Respiratory Rate 20 20 20 Blood Pressure 105/67 102/64 Pulse Oximetry 99 03/08/18 12:45 03/08/18 13:00 03/08/18 13:15 Temperature Pulse Rate 92 H 93 H 92 H Respiratory Rate 20 20 16 Blood Pressure 106/70 110/73 103/68 Pulse Oximetry 03/08/18 13:30 03/08/18 13:45 03/08/18 14:00 Temperature Pulse Rate 91 H 92 H 91 H Respiratory Rate 20 20 20 Blood Pressure 111/74 107/65 99/59 L Pulse Oximetry 03/08/18 14:15 03/08/18 14:30 03/08/18 14:45 Temperature Pulse Rate 90 91 H 91 H Respiratory Rate 20 20 20 Blood Pressure 100/61 98/61 L 104/62 Pulse Oximetry 03/08/18 15:00 03/08/18 15:15 03/08/18 15:30 Temperature Pulse Rate 91 H 91 H 92 H Respiratory Rate 20 20 20 Blood Pressure 121/63 102/61 102/61 Pulse Oximetry 87 L 03/08/18 15:45 03/08/18 16:00 03/08/18 16:15 Temperature Pulse Rate 90 92 H 90 Respiratory Rate 20 20 19 Blood Pressure 108/64 106/65 112/67 Pulse Oximetry 100 54 L 91 L 03/08/18 16:30 03/08/18 16:45 03/08/18 16:48 Temperature Pulse Rate 93 H 90 91 H Respiratory Rate 21 20 20 Blood Pressure 116/82 113/75 Pulse Oximetry 90 L 99 99 03/08/18 17:00 03/08/18 17:15 Temperature Pulse Rate 95 H 93 H Respiratory Rate 20 20 Blood Pressure 117/74 118/74 Pulse Oximetry Intake & Output 03/07/18 03/08/18 03/08/18 18:59 06:59 18:59 Intake Total 1311 / 1311 1571 / 1571 Output Total 0 / 0 400 / 400 Balance 1311 / 1311 1171 / 1171 Weight 93.2 kg Intake: IV 200 / 200 750 / 750 Cubicin Inj 1,000 MG In NS Inj 100 / 100 100 ML @ 200 mls/hr IV.SIG Q24H [facility] Rx#:[id number] D10W Inj 500 ML @ 30 mls/hr IV. 500 / 500 SIG .[id number] [facility] Rx#:[id number] INVanz Inj 1,000 MG In NS Inj 100 / 100 100 ML @ 200 mls/hr IV.SIG Q24H [facility] Rx#:[id number] fentaNYL 10 mcg/mL Premix Drip 250 / 250 2,500 mcg In 250 ml @ 50 MCG/HR 5 mls/hr IV.SIG TITRATE PRN Rx #:[id number] Tube Feeding 331 / 331 521 / 521 Tube Irrigant 180 / 180 Water Bolus Amount 600 / 600 300 / 300 Output: Stool 0 / 0 Urine Amount (Catheter) 400 / 400 Indwelling Urethral Catheter 400 / 400 Other: Date of Last Bowel Movement 03/05/18 03/08/18 03/05/18 # Bowel Movements 0 1 GENERAL: WBWN On vent SKIN: Warm and dry. HEAD: Normocephalic. EYES: No scleral icterus. No injection or drainage. NECK: Supple, trachea midline. No JVD or lymphadenopathy. CARDIOVASCULAR: Regular rate and rhythm without murmurs, gallops, or rubs. RESPIRATORY: Breath sounds equal bilaterally. No accessory muscle use. GASTROINTESTINAL: Abdomen soft, non-tender, nondistended. MUSCULOSKELETAL: No cyanosis, or edema. Left BKA BACK: Nontender without obvious deformity. No CVA tenderness. - Urinary Catheter Management Indwelling Urethral Catheter Cath placed during this visit: yes Reason for continuing: Acute urinary retention Insertion date: 03/05/18 Insertion time: 08:00 Assessment and Plan - Plan IMPRESSION: 1. Bilateral lung infiltrates. 2. Small pleural effusion. 3. Osteomyelitis of both feet. 4. Diabetes mellitus. 5. Cerebrovascular accident with left-sided contracture. 6. VDRF 7. S/P cardiopulm arrest. PLAN: Vent Support sedation with Fentanyl Cont Abx Aerosol nebs monitor Pl eff Monitor renal functions.
--- NOTE | 2018-03-08 18:09 | P.PNID ---
Subjective Remarks: off pressors, on vent + diarrhea growing ESBL, MRSA and 2nd GNB from BAL pleural fluid w/o org's sp thoracocenthesis: bloody, but not much WBC, clx P Antibiotics: ertapenem levaquin zyvox Allergies/Adverse Reactions: Allergies No Known Allergies Allergy (Unknown, Uncoded 01/06/18 21:04) Objective Vital Signs 03/07/18 18:15 03/07/18 18:30 03/07/18 18:45 Temperature Pulse Rate 97 H 99 H 100 H Respiratory Rate 0 L 0 L 0 L Blood Pressure 111/70 101/60 97/56 L Pulse Oximetry 03/07/18 19:00 03/07/18 19:15 03/07/18 19:30 Temperature Pulse Rate 98 H 97 H 96 H Respiratory Rate 20 20 22 Blood Pressure 103/71 108/61 101/60 Pulse Oximetry 93 L 95 03/07/18 19:45 03/07/18 20:00 03/07/18 20:03 Temperature 101 F H Pulse Rate 96 H 98 H Respiratory Rate 25 H 21 21 Blood Pressure 102/69 103/59 L Pulse Oximetry 95 94 L 94 L 03/07/18 20:15 03/07/18 20:30 03/07/18 20:45 Temperature Pulse Rate 97 H 98 H 101 H Respiratory Rate 17 18 16 Blood Pressure 110/70 109/73 113/71 Pulse Oximetry 92 L 98 97 03/07/18 21:00 03/07/18 21:15 03/07/18 21:30 Temperature Pulse Rate 97 H 97 H 100 H Respiratory Rate 14 20 18 Blood Pressure 103/60 98/60 L 115/82 Pulse Oximetry 96 95 94 L 03/07/18 21:45 03/07/18 22:00 03/07/18 22:15 Temperature Pulse Rate 100 H 98 H 98 H Respiratory Rate 10 L 3 L 8 L Blood Pressure 119/60 103/57 L 98/58 L Pulse Oximetry 92 L 95 95 03/07/18 22:30 03/07/18 22:45 03/07/18 23:00 Temperature Pulse Rate 98 H 97 H 96 H Respiratory Rate 5 L 15 13 Blood Pressure 107/60 98/60 L 96/63 L Pulse Oximetry 91 L 93 L 91 L 03/07/18 23:09 03/07/18 23:15 03/07/18 23:30 Temperature Pulse Rate 98 H 96 H Respiratory Rate 20 5 L 18 Blood Pressure 104/63 97/60 L Pulse Oximetry 95 95 03/07/18 23:45 03/08/18 00:00 03/08/18 00:15 Temperature 100.1 F H Pulse Rate 101 H 96 H 100 H Respiratory Rate 21 13 3 L Blood Pressure 101/72 105/64 109/60 Pulse Oximetry 87 L 79 L 92 L 03/08/18 01:54 03/08/18 02:00 03/08/18 03:31 Temperature Pulse Rate 96 H 96 H Respiratory Rate 20 21 Blood Pressure Pulse Oximetry 94 L 03/08/18 03:45 03/08/18 04:00 03/08/18 04:15 Temperature 100.2 F H Pulse Rate 97 H 101 H 101 H Respiratory Rate 20 24 20 Blood Pressure 108/68 113/64 107/59 L Pulse Oximetry 93 L 03/08/18 04:30 03/08/18 04:45 03/08/18 05:00 Temperature Pulse Rate 100 H 97 H 97 H Respiratory Rate 20 20 20 Blood Pressure 103/61 97/57 L 102/58 L Pulse Oximetry 95 03/08/18 05:07 03/08/18 05:15 03/08/18 05:30 Temperature Pulse Rate 96 H 96 H Respiratory Rate 21 20 20 Blood Pressure 99/59 L 97/57 L Pulse Oximetry 97 95 95 03/08/18 05:45 03/08/18 06:00 03/08/18 06:15 Temperature Pulse Rate 96 H 96 H 90 Respiratory Rate 20 20 20 Blood Pressure 107/63 110/63 104/61 Pulse Oximetry 95 96 94 L 03/08/18 06:30 03/08/18 06:45 03/08/18 07:00 Temperature Pulse Rate 91 H 90 91 H Respiratory Rate 20 20 20 Blood Pressure 101/60 99/61 L 99/60 L Pulse Oximetry 94 L 94 L 95 03/08/18 07:15 03/08/18 07:30 03/08/18 07:45 Temperature Pulse Rate 93 H 93 H 92 H Respiratory Rate 20 20 24 Blood Pressure 107/63 115/68 106/66 Pulse Oximetry 96 95 96 03/08/18 08:00 03/08/18 08:15 08/31/18 08:30 Temperature Pulse Rate 93 H 100 H 96 H Respiratory Rate 21 20 20 Blood Pressure 106/70 116/73 115/74 Pulse Oximetry 96 95 94 L 03/08/18 08:45 03/08/18 09:00 03/08/18 09:15 Temperature Pulse Rate 93 H 93 H 92 H Respiratory Rate 19 20 20 Blood Pressure 103/66 98/58 L 94/56 L Pulse Oximetry 95 95 93 L 03/08/18 09:30 03/08/18 09:45 03/08/18 11:15 Temperature Pulse Rate 93 H 91 H 95 H Respiratory Rate 20 20 20 Blood Pressure 96/56 L 104/71 Pulse Oximetry 95 95 03/08/18 11:30 03/08/18 11:45 03/08/18 12:00 Temperature Pulse Rate 91 H 93 H 91 H Respiratory Rate 23 19 20 Blood Pressure 110/66 110/70 Pulse Oximetry 03/08/18 12:01 03/08/18 12:15 03/08/18 12:24 Temperature Pulse Rate 92 H 91 H Respiratory Rate 22 20 20 Blood Pressure 107/74 105/67 Pulse Oximetry 99 03/08/18 12:30 03/08/18 12:45 03/08/18 13:00 Temperature Pulse Rate 92 H 92 H 93 H Respiratory Rate 20 20 20 Blood Pressure 102/64 106/70 110/73 Pulse Oximetry 03/08/18 13:15 03/08/18 13:30 03/08/18 13:45 Temperature Pulse Rate 92 H 91 H 92 H Respiratory Rate 16 20 20 Blood Pressure 103/68 111/74 107/65 Pulse Oximetry 03/08/18 14:00 03/08/18 14:15 03/08/18 14:30 Temperature Pulse Rate 91 H 90 91 H Respiratory Rate 20 20 20 Blood Pressure 99/59 L 100/61 98/61 L Pulse Oximetry 03/08/18 14:45 03/08/18 15:00 03/08/18 15:15 Temperature Pulse Rate 91 H 91 H 91 H Respiratory Rate 20 20 20 Blood Pressure 104/62 121/63 102/61 Pulse Oximetry 03/08/18 15:30 03/08/18 15:45 03/08/18 16:00 Temperature Pulse Rate 92 H 90 92 H Respiratory Rate 20 20 20 Blood Pressure 102/61 108/64 106/65 Pulse Oximetry 87 L 100 54 L 03/08/18 16:15 03/08/18 16:30 03/08/18 16:45 Temperature Pulse Rate 90 93 H 90 Respiratory Rate 19 21 20 Blood Pressure 112/67 116/82 113/75 Pulse Oximetry 91 L 90 L 99 03/08/18 16:48 03/08/18 17:00 03/08/18 17:15 Temperature Pulse Rate 91 H 95 H 93 H Respiratory Rate 20 20 20 Blood Pressure 117/74 118/74 Pulse Oximetry 99 Intake & Output 03/07/18 03/08/18 03/08/18 18:59 06:59 18:59 Intake Total 1311 / 1311 1571 / 1571 Output Total 0 / 0 400 / 400 Balance 1311 / 1311 1171 / 1171 Weight 93.2 kg Intake: IV 200 / 200 750 / 750 Cubicin Inj 1,000 MG In NS Inj 100 / 100 100 ML @ 200 mls/hr IV.SIG Q24H [facility] Rx#:[id number] D10W Inj 500 ML @ 30 mls/hr IV. 500 / 500 SIG .[id number] [facility] Rx#:[id number] INVanz Inj 1,000 MG In NS Inj 100 / 100 100 ML @ 200 mls/hr IV.SIG Q24H [facility] Rx#:[id number] fentaNYL 10 mcg/mL Premix Drip 250 / 250 2,500 mcg In 250 ml @ 50 MCG/HR 5 mls/hr IV.SIG TITRATE PRN Rx #:[id number] Tube Feeding 331 / 331 521 / 521 Tube Irrigant 180 / 180 Water Bolus Amount 600 / 600 300 / 300 Output: Stool 0 / 0 Urine Amount (Catheter) 400 / 400 Indwelling Urethral Catheter 400 / 400 Other: Date of Last Bowel Movement 03/05/18 03/08/18 03/05/18 # Bowel Movements 0 1 03/05/18 18:25 Blood - Peripheral Aerobic Blood Culture - Preliminary No growth in 3 days 03/05/18 18:25 Blood - Peripheral Anaerobic Blood Culture - Preliminary No growth in 3 days 03/05/18 18:10 Blood - Peripheral Aerobic Blood Culture - Preliminary No growth in 3 days 03/05/18 18:10 Blood - Peripheral Anaerobic Blood Culture - Preliminary No growth in 3 days 03/03/18 19:53 Blood - Peripheral Aerobic Blood Culture - Final No growth in 5 days 03/03/18 19:53 Blood - Peripheral Anaerobic Blood Culture - Final No growth in 5 days 03/06/18 15:00 Bronchial - Left Lower Lobe Gram Stain - Final 03/06/18 15:00 Bronchial - Left Lower Lobe Bronchial Culture - Preliminary Klebsiella pneumoniae ESBL pos S. aureus MRSA gram negative rods 03/06/18 14:41 Fluid - Pleural fluid Gram Stain - Final 03/06/18 14:41 Fluid - Pleural fluid Body Fluid Culture - Preliminary No growth in 48 hours 03/06/18 15:00 Bronchial Washings - Left Lower Lobe Acid Fast Bacilli Smear - Final No acid fast bacilli seen 03/06/18 15:00 Bronchial Washings - Left Lower Lobe Mycobacterial Culture - Pending 03/05/18 08:00 Sputum - Endotracheal Gram Stain - Final 03/05/18 08:00 Sputum - Endotracheal Sputum Culture - Final Klebsiella pneumoniae ESBL pos 03/05/18 11:25 Clean Catch Urine Urine Culture - Final No growth in 48 hours 03/06/18 15:00 Bronchial Washings - Left Lower Lobe Fungal Smear - Final No fungal elements seen 03/06/18 15:00 Bronchial Washings - Left Lower Lobe Fungal Culture - Pending 03/05/18 14:00 Stool Occult Blood - Final Hemoccult negative Lab - Hematology Results 03/07/18 03/08/18 04:25 04:57 WBC 5.2 4.4 RBC 2.44 L 2.43 L Hgb 7.5 L 7.4 L Hct 22.4 L 22.5 L MCV 91.8 92.4 MCH 30.8 30.6 MCHC 33.6 33.1 RDW 16.9 17.0 Plt Count 118 L 119 L MPV 10.2 9.7 Neut % (Auto) 73.2 H 66.7 Lymph % (Auto) 16.9 20.2 Carver % (Auto) 8.4 H 10.0 H Eos % (Auto) 1.3 2.8 Baso % (Auto) 0.2 0.3 Neut # (Auto) 3.8 2.9 Lymph # (Auto) 0.9 L 0.9 L Carver # (Auto) 0.4 0.4 Eos # (Auto) 0.1 0.1 Baso # (Auto) 0.0 0.0 WBC Differential . . Differential Comment Auto diff final Auto diff final Lab - Chemistry Results 03/06/18 03/07/18 03/07/18 20:03 01:19 04:14 Sodium Potassium Chloride Carbon Dioxide Anion Gap BUN Creatinine Estimated GFR POC Glucose 73 40 L* 50 L Random Glucose Calcium Total Bilirubin AST ALT Alkaline Phosphatase Total Protein Albumin 03/07/18 03/07/18 03/07/18 04:15 04:25 08:15 Sodium 149 H Potassium 4.0 Chloride 112 H Carbon Dioxide 27.5 Anion Gap 10 BUN 61 H Creatinine 2.48 H Estimated GFR 34 L POC Glucose 48 L* 77 Random Glucose 138 H Calcium 7.6 L Total Bilirubin 1.0 AST 59 H ALT 25 Alkaline Phosphatase 72 Total Protein 6.7 Albumin 2.0 L 03/07/18 03/07/18 03/07/18 12:47 17:25 21:04 Sodium Potassium Chloride Carbon Dioxide Anion Gap BUN Creatinine Estimated GFR POC Glucose 70 66 L 64 L Random Glucose Calcium Total Bilirubin AST ALT Alkaline Phosphatase Total Protein Albumin 03/07/18 03/07/18 03/08/18 21:37 23:50 00:13 Sodium Potassium Chloride Carbon Dioxide Anion Gap BUN Creatinine Estimated GFR POC Glucose 132 H 56 L 164 H Random Glucose Calcium Total Bilirubin AST ALT Alkaline Phosphatase Total Protein Albumin 03/08/18 03/08/18 03/08/18 03:46 04:57 05:55 Sodium 149 H Potassium 4.1 Chloride 112 H Carbon Dioxide 26.5 Anion Gap 11 BUN 61 H Creatinine 2.76 H Estimated GFR 30 L POC Glucose 60 L 91 Random Glucose 96 Calcium 8.0 L Total Bilirubin 0.8 AST 176 H ALT 45 Alkaline Phosphatase 68 Total Protein 6.7 Albumin 1.9 L 03/08/18 03/08/18 03/08/18 08:15 08:51 12:48 Sodium Potassium Chloride Carbon Dioxide Anion Gap BUN Creatinine Estimated GFR POC Glucose 66 L 133 H 76 Random Glucose Calcium Total Bilirubin AST ALT Alkaline Phosphatase Total Protein Albumin 03/08/18 16:28 Sodium Potassium Chloride Carbon Dioxide Anion Gap BUN Creatinine Estimated GFR POC Glucose 72 Random Glucose Calcium Total Bilirubin AST ALT Alkaline Phosphatase Total Protein Albumin Imaging: ITS Impressions Abdomen/Pelvis CT 02/17/18 00:00 CONCLUSION: 1. Small bilateral pleural effusions and bilateral lower lung opacity again seen. 2. Mild splenomegaly again seen. 3. Gastrostomy tube in place. 4. No evidence of bowel dilatation. 5. Heterotopic ossification about the left hip again seen. 6. Calcified adrenal glands again seen. 7. Enlarged inguinal lymph nodes again seen. Venous Doppler Study 02/18/18 00:00 CONCLUSION: 1. No DVT or SVT. 2. 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 This measures 3.6 x 2.2 x 2.2 cm and is predominantly thrombosed with a small, 6 x 9 mm patent component showing biphasic flow. Central Venous Line 02/22/18 00:00 CONCLUSION: 1. Uncomplicated tunneled central venous Power PICC line placement. 2. The PICC line can be used immediately. Foot MRI 02/22/18 00:00 CONCLUSION: 1. Findings most characteristic of early osteomyelitis at the medial aspect of the first metatarsal head and a tiny focus of probable osteomyelitis at the medial corner of the proximal phalanx great toe. Mild surrounding cellulitis. 2. Previous partial amputation fifth metatarsal. Extremity Arterial Study 02/26/18 00:00 CONCLUSION: 1. Normal ABIs bilaterally. Chest CT 03/05/18 00:00 CONCLUSION: 1. Bilateral effusions and diffuse bilateral consolidation. Acuna Line Insertion 03/05/18 00:00 CONCLUSION: 1. Uncomplicated Acuna catheter placement as above. Chest X-Ray 03/07/18 00:00 CONCLUSION: No significant change. Diffuse bilateral parenchymal consolidation and small pleural effusions similar to before. Physical Exam: GENERAL: NAD SKIN: Warm and dry. HEAD: Atraumatic. Normocephalic. EYES: Pupils equal and round. No scleral icterus. No injection or drainage. ENT: No nasal bleeding or discharge. Mucous membranes pink and moist. CARDIOVASCULAR: Regular rate and rhythm. RESPIRATORY: No accessory muscle use. rhonchi to auscultation. Breath sounds equal bilaterally. GASTROINTESTINAL: Abdomen soft, non-tender, distended. Hepatic and splenic margins not palpable. PEG in place, tolerates TF @ 50 cc/hr Incontinent of brown liquid stool MUSCULOSKELETAL: Extremities without clubbing, cyanosis, or edema. No obvious deformities. B/l feet with dressings in place + edema NEUROLOGICAL: lethargic, arousable and alert. No obvious cranial nerve deficits. L side hemiplegia PSYCHIATRIC: unable to assess Assessment and Plan - Plan B/L foot osteomyelitis MRSA, on vancomycin - trough level too high Anemia likely 2/2 vanco Mild CEDRIC, likely 2/2 vanco - pt has 2 adverse effects from vancomycin so far, I will recommend to avoid vancomycin Aspiration PNA - growing ESBL + kleb pneumo, MRSA and 2nd GNB acute VDRF Hypotensive ? sepsis stable Diarreha, C.diff negative CEDRIC with worsening GFR chk urine eos dc daptomycin restart ZYvox Dc LEvaquine change Ertapenem to meropenem P 2nd GNB ID dw RN
[2018-03-08 19:07] LABS: Creatinine,Urine Random 41 mg/dL (27-300)
[2018-03-09] MEDS: Insulin NovoLIN Regular Correctional Sugar Inj SQ SCH ×6 (00:54→21:16)
[2018-03-09 05:37] LABS: Baso % (Auto) 0.2 % (0.0-2.0); Eos # (Auto) 0.2 th/mm3 (0.0-0.4); Eos % (Auto) 4.7 % (0.0-4.0); Hematocrit 22.7 % (39.0-51.0); Hemoglobin 7.4 gm/dL (13.0-17.0); Lymph # (Auto) 0.7 th/mm3 (1.0-4.8); Lymph % (Auto) 16.1 % (9.0-44.0); Mean Corpuscular HGB Conc 32.8 % (32.0-36.0); Mean Corpuscular Hemoglobin 30.3 pg (27.0-34.0); Mean Corpuscular Volume 92.4 fL (80.0-100.0); Mean Platelet Volume 9.2 fL (7.0-11.0); Mono # (Auto) 0.3 th/mm3 (0.0-0.9); Mono % (Auto) 7.9 % (0.0-8.0); Neut # (Auto) 3.1 th/mm3 (1.8-7.7); Neut % (Auto) 71.1 % (16.0-70.0); Platelet Count 130 th/mm3 (150-450); Red Blood Count 2.46 mil/mm3 (4.50-5.90); Red Cell Distribution Width 16.8 % (11.6-17.2); White Blood Count 4.4 th/mm3 (4.0-11.0)
[2018-03-09] MEDS: Dextrose 10% in Water Inj 500 ML IV.SIG SCH ×2 (05:41→22:08)
[2018-03-09 05:54] LABS: Alanine Aminotransferase 59 U/L (12-78); Albumin 1.8 g/dL (3.4-5.0); Alkaline Phosphatase 74 U/L (45-117); Anion Gap 8 meq/L (5-15); Aspartate Aminotransferase 207 U/L (15-37); Blood Urea Nitrogen 50 mg/dL (7-18); Calcium 8.3 mg/dL (8.5-10.1); Chloride 112 meq/L (98-107); Complement C3 111 mg/dL (90-180); Glomerular Filtration Rate 34 mL/min (>89); Glucose,Random 90 mg/dL (74-106); Phosphorus 4.5 mg/dL (2.5-4.9); Potassium 3.3 meq/L (3.5-5.1); Sodium 146 meq/L (136-145); Total Protein 6.8 g/dL (6.4-8.2)
--- NOTE | 2018-03-09 07:00 | P.PNCC ---
Subjective Subjective Remarks/Hospital Course: The patient is a 47-year-old male with a past medical history of a CVA with left -sided hemiparesis, hypertension, diabetes mellitus, anemia of chronic disease, CHF, dysphagia, status post PEG tube placement, depression, nonverbal, who was admitted under the hospitalist service on 02/17/2018 for acute on chronic anemia. In addition, the patient has a history of bilateral foot osteomyelitis. During his hospital course, he had worsening renal function with a creatinine of 1.74 this morning from 1.1 on admission. In addition, the patient was found hypernatremic with a sodium level of 156 and hyperkalemic with a potassium level 5.3. A halicat was called 2 days ago for shortness of breath, and this morning the patient had a PEA arrest. ACLS protocol was initiated and the patient received epinephrine x3, 2 amps of bicarbonate, and 1 amp of calcium and was subsequently intubated by myself with an ET tube 8.0 cm size. A chest x-ray post intubation showed diffuse bilateral pulmonary infiltrates. He was on NS at 100 mL an hour for the past 2 days. Also, he had a venous Doppler ultrasound on 02/18/2018, which showed no evidence of a DVT; however, it showed a pseudoaneurysm at the distal brachial artery measuring 3.6 x 2.2 x 2.2 cm, predominantly thrombosed; however, there was a small patent component with biphasic flow measuring 6 x 9 mm. A single lumen right PICC line was placed by interventional radiology on 02/22/2018. The patient also had an arterial Doppler ultrasound which was within normal. He was seen by Dr. Jensen from vascular surgery. In addition, the patient has been followed by podiatry and infectious disease. ABG postcode showed acute hypercapnic respiratory acidosis with a pH of 7.11, CO2 of 83, PaO2 of 99, bicarbonate 25, saturation 92% on PRVC mode, rate of 16, tidal volume 500, PEEP of 5, 100% FiO2, and I time 0.9. 03/06 Patient is sedated with Versed and Fenantl drips Levophed started overnight on 4 mics. Afebrile. Renal function worse this morning with C: 1.93 from 1.75 s/p transfusion 2U PRBC yesterday . 03/07: Remains sedated, arousable, orally intubated on mechanical ventilation. Sputum growing ESBL Klebsiella. 03/08 Patient remains intubated and Sedated with Fentanyl drip. Had T: 101 last night.Had an episode of hypoglycemia last night given D50 and placed on D10. 03/09 Patient remains sedated and intubated. T: 100 at 4 am. Objective Vital Signs / I&O: Vital Signs 03/08/18 07:00 03/08/18 07:15 03/08/18 07:30 Temperature Pulse Rate 91 H 93 H 93 H Respiratory Rate 20 20 20 Blood Pressure 99/60 L 107/63 115/68 Pulse Oximetry 95 96 95 03/08/18 07:45 03/08/18 08:00 03/08/18 08:15 Temperature Pulse Rate 92 H 93 H 100 H Respiratory Rate 24 21 20 Blood Pressure 106/66 106/70 116/73 Pulse Oximetry 96 96 95 03/08/18 08:30 03/08/18 08:45 03/08/18 09:00 Temperature Pulse Rate 96 H 93 H 93 H Respiratory Rate 20 19 20 Blood Pressure 115/74 103/66 98/58 L Pulse Oximetry 94 L 95 95 03/08/18 09:15 03/08/18 09:30 03/08/18 09:45 Temperature Pulse Rate 92 H 93 H 91 H Respiratory Rate 20 20 20 Blood Pressure 94/56 L 96/56 L 104/71 Pulse Oximetry 93 L 95 95 03/08/18 11:15 03/08/18 11:30 03/08/18 11:45 Temperature Pulse Rate 95 H 91 H 93 H Respiratory Rate 20 23 19 Blood Pressure 110/66 110/70 Pulse Oximetry 03/08/18 12:00 03/08/18 12:01 03/08/18 12:15 Temperature Pulse Rate 91 H 92 H 91 H Respiratory Rate 20 22 20 Blood Pressure 107/74 105/67 Pulse Oximetry 03/08/18 12:24 03/08/18 12:30 03/08/18 12:45 Temperature Pulse Rate 92 H 92 H Respiratory Rate 20 20 20 Blood Pressure 102/64 106/70 Pulse Oximetry 99 03/08/18 13:00 03/08/18 13:15 03/08/18 13:30 Temperature Pulse Rate 93 H 92 H 91 H Respiratory Rate 20 16 20 Blood Pressure 110/73 103/68 111/74 Pulse Oximetry 03/08/18 13:45 03/08/18 14:00 03/08/18 14:15 Temperature Pulse Rate 92 H 91 H 90 Respiratory Rate 20 20 20 Blood Pressure 107/65 99/59 L 100/61 Pulse Oximetry 03/08/18 14:30 03/08/18 14:45 03/08/18 15:00 Temperature Pulse Rate 91 H 91 H 91 H Respiratory Rate 20 20 20 Blood Pressure 98/61 L 104/62 121/63 Pulse Oximetry 03/08/18 15:15 03/08/18 15:30 03/08/18 15:45 Temperature Pulse Rate 91 H 92 H 90 Respiratory Rate 20 20 20 Blood Pressure 102/61 102/61 108/64 Pulse Oximetry 87 L 100 03/08/18 16:00 03/08/18 16:15 03/08/18 16:30 Temperature Pulse Rate 92 H 90 93 H Respiratory Rate 20 19 21 Blood Pressure 106/65 112/67 116/82 Pulse Oximetry 54 L 91 L 90 L 03/08/18 16:45 03/08/18 16:48 03/08/18 17:00 Temperature Pulse Rate 90 91 H 95 H Respiratory Rate 20 20 20 Blood Pressure 113/75 117/74 Pulse Oximetry 99 99 03/08/18 17:15 03/08/18 17:30 03/08/18 17:45 Temperature Pulse Rate 93 H 95 H 92 H Respiratory Rate 20 20 20 Blood Pressure 118/74 121/74 114/73 Pulse Oximetry 03/08/18 18:00 03/08/18 18:15 03/08/18 18:30 Temperature Pulse Rate 93 H 95 H 104 H Respiratory Rate 20 20 20 Blood Pressure 129/75 135/80 138/78 Pulse Oximetry 97 91 L 03/08/18 18:45 03/08/18 19:00 03/08/18 19:31 Temperature Pulse Rate 96 H 96 H Respiratory Rate 20 20 Blood Pressure 123/81 113/67 114/73 Pulse Oximetry 97 96 03/08/18 19:45 03/08/18 20:00 03/08/18 20:15 Temperature 99.6 F Pulse Rate 92 H Respiratory Rate 11 L Blood Pressure 116/64 119/63 126/76 Pulse Oximetry 96 03/08/18 20:30 03/08/18 20:50 03/08/18 21:00 Temperature Pulse Rate 92 H Respiratory Rate 20 16 Blood Pressure 118/78 133/74 Pulse Oximetry 99 97 03/08/18 21:15 03/08/18 21:30 03/08/18 21:45 Temperature Pulse Rate 96 H 100 H 96 H Respiratory Rate 4 L 20 20 Blood Pressure 119/80 122/80 121/80 Pulse Oximetry 97 98 03/08/18 22:00 03/08/18 22:15 03/08/18 22:30 Temperature Pulse Rate 95 H 96 H 92 H Respiratory Rate 20 20 20 Blood Pressure 114/79 118/77 128/78 Pulse Oximetry 97 98 97 03/08/18 23:00 03/08/18 23:30 03/09/18 00:00 Temperature 99 F Pulse Rate 92 H 92 H 89 Respiratory Rate 20 20 20 Blood Pressure 123/69 125/82 113/67 Pulse Oximetry 99 99 99 03/09/18 00:30 03/09/18 01:00 03/09/18 01:04 Temperature Pulse Rate 92 H 92 H Respiratory Rate 20 20 20 Blood Pressure 115/80 123/74 Pulse Oximetry 99 99 98 03/09/18 01:30 03/09/18 02:00 03/09/18 02:30 Temperature Pulse Rate 90 90 92 H Respiratory Rate 20 22 20 Blood Pressure 122/73 126/79 124/85 Pulse Oximetry 99 99 99 03/09/18 03:00 03/09/18 03:30 03/09/18 03:53 Temperature Pulse Rate 93 H 90 Respiratory Rate 20 20 20 Blood Pressure 119/71 122/75 Pulse Oximetry 98 99 97 03/09/18 04:00 03/09/18 06:00 Temperature 100 F H Pulse Rate 89 88 Respiratory Rate 20 Blood Pressure 121/79 Pulse Oximetry 99 Intake & Output 03/08/18 03/08/18 03/09/18 06:59 18:59 06:59 Intake Total 1571 / 1571 1730 / 1730 2780 / 2780 Output Total 400 / 400 900 / 900 1050 / 1050 Balance 1171 / 1171 830 / 830 1730 / 1730 Weight 93.2 kg 93.7 kg Intake: IV 750 / 750 250 / 250 2296 / 2296 Cubicin Inj 1,000 MG In NS Inj 100 / 100 100 ML @ 200 mls/hr IV.SIG Q24H [facility] Rx#:[id number] D10W Inj 500 ML @ 30 mls/hr IV. 500 / 500 1000 / 1000 SIG .[id number] [facility] Rx#:[id number] INVanz Inj 1,000 MG In NS Inj 100 / 100 100 ML @ 200 mls/hr IV.SIG Q24H [facility] Rx#:[id number] Levaquin 750 mg Premix Inj 150 150 / 150 ML @ 100 mls/hr IV.SIG Q48H [facility] Rx#:[id number] Zyvox 600 mg Premix 300 ML @ 300 / 300 300 mls/hr IV.SIG Q12H [facility] Rx#: [id number] Merrem Inj 1,000 MG In NS Inj 100 / 100 100 ML @ 200 mls/hr IV.SIG Q12H [facility] Rx#:[id number] fentaNYL 10 mcg/mL Premix Drip 250 / 250 250 / 250 446 / 446 2,500 mcg In 250 ml @ 50 MCG/HR 5 mls/hr IV.SIG TITRATE PRN Rx #:[id number] Tube Feeding 521 / 521 480 / 480 184 / 184 Tube Irrigant 100 / 100 Water Bolus Amount 300 / 300 900 / 900 300 / 300 Output: Urine Amount (Catheter) 400 / 400 900 / 900 1050 / 1050 Indwelling Urethral Catheter 400 / 400 900 / 900 1050 / 1050 Other: Date of Last Bowel Movement 03/08/18 03/05/18 03/08/18 # Bowel Movements 1 1 1 Result Diagrams: 03/09/18 04:50 03/09/18 04:50 Other Results: Laboratory Results - last 12 hr 03/08/18 03/08/18 03/08/18 13:20 13:20 13:20 WBC RBC Hgb Hct MCV MCH MCHC RDW Plt Count MPV Neut % (Auto) Lymph % (Auto) [place] % (Auto) Eos % (Auto) Baso % (Auto) Neut # (Auto) Lymph # (Auto) [place] # (Auto) Eos # (Auto) Baso # (Auto) WBC Differential Differential Comment Sodium Potassium Chloride Carbon Dioxide Anion Gap BUN Creatinine Estimated GFR POC Glucose Random Glucose Calcium Phosphorus Total Bilirubin AST ALT Alkaline Phosphatase Total Protein Total Protein (PEP) Albumin Urine Eosinophils None seen Urine Osmolality 296 L Ur Random Creatinine 41 Ur Random Sodium 30 Complement C3 Complement C4 03/08/18 03/09/18 03/09/18 21:20 00:22 04:18 WBC RBC Hgb Hct MCV MCH MCHC RDW Plt Count MPV Neut % (Auto) Lymph % (Auto) [place] % (Auto) Eos % (Auto) Baso % (Auto) Neut # (Auto) Lymph # (Auto) [place] # (Auto) Eos # (Auto) Baso # (Auto) WBC Differential Differential Comment Sodium Potassium Chloride Carbon Dioxide Anion Gap BUN Creatinine Estimated GFR POC Glucose 71 106 101 Random Glucose Calcium Phosphorus Total Bilirubin AST ALT Alkaline Phosphatase Total Protein Total Protein (PEP) Albumin Urine Eosinophils Urine Osmolality Ur Random Creatinine Ur Random Sodium Complement C3 Complement C4 03/09/18 03/09/18 04:50 04:50 WBC 4.4 RBC 2.46 L Hgb 7.4 L Hct 22.7 L MCV 92.4 MCH 30.3 MCHC 32.8 RDW 16.8 Plt Count 130 L MPV 9.2 Neut % (Auto) 71.1 H Lymph % (Auto) 16.1 [place] % (Auto) 7.9 Eos % (Auto) 4.7 H Baso % (Auto) 0.2 Neut # (Auto) 3.1 Lymph # (Auto) 0.7 L [place] # (Auto) 0.3 Eos # (Auto) 0.2 Baso # (Auto) 0.0 WBC Differential . Differential Comment Auto diff final Sodium 146 H Potassium 3.3 L D Chloride 112 H Carbon Dioxide 26.0 Anion Gap 8 BUN 50 H Creatinine 2.47 H Estimated GFR 34 L POC Glucose Random Glucose 90 Calcium 8.3 L Phosphorus 4.5 Total Bilirubin 0.6 AST 207 H ALT 59 Alkaline Phosphatase 74 Total Protein 6.8 Total Protein (PEP) 6.8 Albumin 1.8 L Urine Eosinophils Urine Osmolality Ur Random Creatinine Ur Random Sodium Complement C3 111 Complement C4 27 Imaging: Abdomen/Pelvis CT 02/17/18 00:00 CONCLUSION: 1. Small bilateral pleural effusions and bilateral lower lung opacity again seen. 2. Mild splenomegaly again seen. 3. Gastrostomy tube in place. 4. No evidence of bowel dilatation. 5. Heterotopic ossification about the left hip again seen. 6. Calcified adrenal glands again seen. 7. Enlarged inguinal lymph nodes again seen. Venous Doppler Study 02/18/18 00:00 CONCLUSION: 1. No DVT or SVT. 2. 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 This measures 3.6 x 2.2 x 2.2 cm and is predominantly thrombosed with a small, 6 x 9 mm patent component showing biphasic flow. Central Venous Line 02/22/18 00:00 CONCLUSION: 1. Uncomplicated tunneled central venous Power PICC line placement. 2. The PICC line can be used immediately. Foot MRI 02/22/18 00:00 CONCLUSION: 1. Findings most characteristic of early osteomyelitis at the medial aspect of the first metatarsal head and a tiny focus of probable osteomyelitis at the medial corner of the proximal phalanx great toe. Mild surrounding cellulitis. 2. Previous partial amputation fifth metatarsal. Extremity Arterial Study 02/26/18 00:00 CONCLUSION: 1. Normal ABIs bilaterally. Chest CT 03/05/18 00:00 CONCLUSION: 1. Bilateral effusions and diffuse bilateral consolidation. Acuna Line Insertion 03/05/18 00:00 CONCLUSION: 1. Uncomplicated Acuna catheter placement as above. Chest X-Ray 03/07/18 00:00 CONCLUSION: No significant change. Diffuse bilateral parenchymal consolidation and small pleural effusions similar to before. Objective Remarks: GENERAL: Patient is 47 yo intubated and sedated SKIN: Warm and dry. HEAD: Normocephalic. EYES: No scleral icterus. No injection or drainage. NECK: Supple, trachea midline. No JVD or lymphadenopathy. CARDIOVASCULAR: Regular rate and rhythm without murmurs, gallops, or rubs. RESPIRATORY: Breath sounds equal bilaterally. No accessory muscle use. GASTROINTESTINAL: Abdomen soft, non-tender, nondistended. + PEG tube MUSCULOSKELETAL: No cyanosis, or edema. Neuro: Sedated, intubated Assessment and Plan - Assessment and Plan Plan: 1. VDRF 2. S/p PEA arrest 3. Diffuse bilateral pulmonary infiltrates, ddx aspiration pneumonia and fluid overload. 4. Hypertension. 5. Acute kidney injury. 6. History CVA with left-sided hemiparesis. 7. 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 8. Bilateral foot osteomyelitis methicillin-resistant Staphylococcus aureus. Plan Neuro: on fentanyl infusion for sedation. Daily sedation vacation. on Keppra 500 mg t.i.d. for a history of seizures. Pulm: Continue with ventilatory support and maintain sats> 92%. On PRVC RR 20, TV 600, IT:0.9, PEEP:8, FIO2: 45% Bronchodilators, ICU vent bundle. s/p diagnostic US guided thoracentesis 40ml removed ( transudative fluid ) Bronch with BAL 03/06 showed secretions L>R suctioned to clear, BAL performed LLL. BAL: Kleb pneumonia ESBL, GNR, MRSA CV: Monitor HR and BP and maintain MAP> 65 mmHg. Echo showed EF 60-65% : Monitor renal function, I's and O's and avoid nephrotoxins. Cr: 2.47 today from 2.76, UOP:1950ml in 24 hrs Continue with Free water 300ml Q6 monitor sodium level GI: On Prevacid 30 mg daily. Start tube feeds- On Nepro with goal rate 40ml/hr ID: Continue with abx (Merrem, Zyvox) ID is following Follow up on Blood and urine cx from 03/05- NGTD 03/05 Sputum cx: ESBL Klebsiella BAL cx 03/06: Kleb pneumonia ESBL, GNR, MRSA Wound culture growing MRSA from osteomyelitis site. Heme: Monitor CBC and coags. s/p transfusion 2u PRBC 03/05 heme occult negative Endo: SSI with Accu-Cheks for glycemic control. On D10@30ml/hr GI prophylaxis- On Prevacid DVT prophylaxis- SCD, heparin SQ held for anemia requiring blood transfusion. IV access: RUE single lumen PICC line repositioned by IR 03/05 Condition critical Time spent on critical care excluding procedures 30 minutes
[2018-03-09] MEDS: Senna/Docusate Sodium 8.6/50 MG Tablet G-TUBE SCH ×2 (09:01→21:27)
[2018-03-09] MEDS: Ascorbic Acid 500 MG Tablet G-TUBE SCH ×2 (09:01→21:27)
[2018-03-09] MEDS: levETIRAcetam 500 MG Tablet G-TUBE SCH ×3 (09:02→17:35)
[2018-03-09] MEDS: fentaNYL 10 mcg/mL Premix Drip 2,500 MCG/250 ML BAG IV.SIG PRN ×2 (09:04→19:08)
--- NOTE | 2018-03-09 10:32 | P.PNNP ---
Subjective Interval history: Intubated, sedated Physical Exam Vital signs: Vital Signs 03/08/18 11:15 03/08/18 11:30 03/08/18 11:45 Temperature Pulse Rate 95 H 91 H 93 H Respiratory Rate 20 23 19 Blood Pressure 110/66 110/70 Pulse Oximetry 03/08/18 12:00 03/08/18 12:01 03/08/18 12:15 Temperature Pulse Rate 91 H 92 H 91 H Respiratory Rate 20 22 20 Blood Pressure 107/74 105/67 Pulse Oximetry 03/08/18 12:24 03/08/18 12:30 03/08/18 12:45 Temperature Pulse Rate 92 H 92 H Respiratory Rate 20 20 20 Blood Pressure 102/64 106/70 Pulse Oximetry 99 03/08/18 13:00 03/08/18 13:15 03/08/18 13:30 Temperature Pulse Rate 93 H 92 H 91 H Respiratory Rate 20 16 20 Blood Pressure 110/73 103/68 111/74 Pulse Oximetry 03/08/18 13:45 03/08/18 14:00 03/08/18 14:15 Temperature Pulse Rate 92 H 91 H 90 Respiratory Rate 20 20 20 Blood Pressure 107/65 99/59 L 100/61 Pulse Oximetry 03/08/18 14:30 03/08/18 14:45 03/08/18 15:00 Temperature Pulse Rate 91 H 91 H 91 H Respiratory Rate 20 20 20 Blood Pressure 98/61 L 104/62 121/63 Pulse Oximetry 03/08/18 15:15 03/08/18 15:30 03/08/18 15:45 Temperature Pulse Rate 91 H 92 H 90 Respiratory Rate 20 20 20 Blood Pressure 102/61 102/61 108/64 Pulse Oximetry 87 L 100 03/08/18 16:00 03/08/18 16:15 03/08/18 16:30 Temperature Pulse Rate 92 H 90 93 H Respiratory Rate 20 19 21 Blood Pressure 106/65 112/67 116/82 Pulse Oximetry 54 L 91 L 90 L 03/08/18 16:45 03/08/18 16:48 03/08/18 17:00 Temperature Pulse Rate 90 91 H 95 H Respiratory Rate 20 20 20 Blood Pressure 113/75 117/74 Pulse Oximetry 99 99 03/08/18 17:15 03/08/18 17:30 03/08/18 17:45 Temperature Pulse Rate 93 H 95 H 92 H Respiratory Rate 20 20 20 Blood Pressure 118/74 121/74 114/73 Pulse Oximetry 03/08/18 18:00 03/08/18 18:15 03/08/18 18:30 Temperature Pulse Rate 93 H 95 H 104 H Respiratory Rate 20 20 20 Blood Pressure 129/75 135/80 138/78 Pulse Oximetry 97 91 L 03/08/18 18:45 03/08/18 19:00 03/08/18 19:31 Temperature Pulse Rate 96 H 96 H Respiratory Rate 20 20 Blood Pressure 123/81 113/67 114/73 Pulse Oximetry 97 96 03/08/18 19:45 03/08/18 20:00 03/08/18 20:15 Temperature 99.6 F Pulse Rate 92 H Respiratory Rate 11 L Blood Pressure 116/64 119/63 126/76 Pulse Oximetry 96 03/08/18 20:30 03/08/18 20:50 03/08/18 21:00 Temperature Pulse Rate 92 H Respiratory Rate 20 16 Blood Pressure 118/78 133/74 Pulse Oximetry 99 97 03/08/18 21:15 03/08/18 21:30 03/08/18 21:45 Temperature Pulse Rate 96 H 100 H 96 H Respiratory Rate 4 L 20 20 Blood Pressure 119/80 122/80 121/80 Pulse Oximetry 97 98 03/08/18 22:00 03/08/18 22:15 03/08/18 22:30 Temperature Pulse Rate 95 H 96 H 92 H Respiratory Rate 20 20 20 Blood Pressure 114/79 118/77 128/78 Pulse Oximetry 97 98 97 03/08/18 23:00 03/08/18 23:30 03/09/18 00:00 Temperature 99 F Pulse Rate 92 H 92 H 89 Respiratory Rate 20 20 20 Blood Pressure 123/69 125/82 113/67 Pulse Oximetry 99 99 99 03/09/18 00:30 03/09/18 01:00 03/09/18 01:04 Temperature Pulse Rate 92 H 92 H Respiratory Rate 20 20 20 Blood Pressure 115/80 123/74 Pulse Oximetry 99 99 98 03/09/18 01:30 03/09/18 02:00 03/09/18 02:30 Temperature Pulse Rate 90 90 92 H Respiratory Rate 20 22 20 Blood Pressure 122/73 126/79 124/85 Pulse Oximetry 99 99 99 03/09/18 03:00 03/09/18 03:30 03/09/18 03:53 Temperature Pulse Rate 93 H 90 Respiratory Rate 20 20 20 Blood Pressure 119/71 122/75 Pulse Oximetry 98 99 97 03/09/18 04:00 03/09/18 06:00 03/09/18 07:00 Temperature 100 F H Pulse Rate 89 88 Respiratory Rate 20 20 Blood Pressure 121/79 Pulse Oximetry 99 99 Intake & Output 03/08/18 03/09/18 03/09/18 18:59 06:59 18:59 Intake Total 1730 / 1730 2780 / 2780 54 / 54 Output Total 900 / 900 1050 / 1050 Balance 830 / 830 1730 / 1730 54 / 54 Weight 93.7 kg Intake: IV 250 / 250 2296 / 2296 54 / 54 Cubicin Inj 1,000 MG In NS Inj 100 / 100 100 ML @ 200 mls/hr IV.SIG Q24H [facility] Rx#:[id number] D10W Inj 500 ML @ 30 mls/hr IV. 1000 / 1000 SIG .[id number] [facility] Rx#:[id number] INVanz Inj 1,000 MG In NS Inj 100 / 100 100 ML @ 200 mls/hr IV.SIG Q24H [facility] Rx#:[id number] Levaquin 750 mg Premix Inj 150 150 / 150 ML @ 100 mls/hr IV.SIG Q48H [facility] Rx#:[id number] Zyvox 600 mg Premix 300 ML @ 300 / 300 300 mls/hr IV.SIG Q12H [facility] Rx#: [id number] Merrem Inj 1,000 MG In NS Inj 100 / 100 100 ML @ 200 mls/hr IV.SIG Q12H [facility] Rx#:[id number] fentaNYL 10 mcg/mL Premix Drip 250 / 250 446 / 446 54 / 54 2,500 mcg In 250 ml @ 50 MCG/HR 5 mls/hr IV.SIG TITRATE PRN Rx #:[id number] Tube Feeding 480 / 480 184 / 184 Tube Irrigant 100 / 100 Water Bolus Amount 900 / 900 300 / 300 Output: Urine Amount (Catheter) 900 / 900 1050 / 1050 Indwelling Urethral Catheter 900 / 900 1050 / 1050 Other: Date of Last Bowel Movement 03/05/18 03/08/18 # Bowel Movements 1 1 - Constitutional no acute distress - Routine HEENT Exam Head: Present: normocephalic - Routine Neck Exam Present: supple - Routine Respiratory Exam Present: patient mechanically ventilated - Routine Cardiovascular Exam Present: RRR - Routine Abdominal Exam Present: soft - Routine Skin Exam Present: intact - Routine Psychiatric Exam Present: unable to assess - Urinary Catheter Management Indwelling Urethral Catheter Cath placed during this visit: yes Reason for continuing: Acute urinary retention Insertion date: 03/05/18 Insertion time: 08:00 Assessment and Plan - Assessment (1) Acute kidney injury Code(s): N17.9 - Acute kidney failure, unspecified Status: Acute Plan: Acute kidney injury with a creatinine of 2.76 -> 2.47 Initial worsening since the . Acute kidney injury possible related to vancomycin toxicity last dose on the Creatinine noted to be 1.07 on 02/26. CT of pelvis on admission with kidney of normal in size and shape and no evidence of mass or hydronephrosis. Good UOP with 1.9L UOP over last 24 hours Plan Suspect vanco toxicity Avoid nephrotoxins including IV contrast, NSAIDS,and aminoglycosides. Maintain strict I+o, maintain indwelling Dudley catheter Will monitor urinary output and BMP. Creatinine slightly better with good UOP. Negative urine eosinphilis, complements. Serologies and SPEP pending. (2) Anemia of chronic disorder Code(s): D63.8 - Anemia in other chronic diseases classified elsewhere Status : Acute Plan: HGB stable at 7.4 Iron profile pending. (3) Hypernatremia Code(s): E87.0 - Hyperosmolality and hypernatremia Status: Acute Plan: Sodium level is improving at 146, continue free water 300ml every 6 hours.
[2018-03-09] MEDS: Potassium Chlor 20 mEq Premix 20 MEQ/100 ML PIGGYBACK IV.SIG SCH ×2 (12:07→14:21)
--- NOTE | 2018-03-09 18:54 | P.PNID ---
Subjective Remarks: off pressors, on vent secretions improved growing ESBL, MRSA and Protes S to Ertapenem from BAL pleural fluid w/o org's sp thoracocenthesis: bloody, but not much WBC, clx P Antibiotics: meropenem zyvox Allergies/Adverse Reactions: Allergies No Known Allergies Allergy (Unknown, Uncoded 01/06/18 21:04) Objective Vital Signs 03/08/18 19:00 03/08/18 19:31 03/08/18 19:45 Temperature Pulse Rate 96 H Respiratory Rate 20 Blood Pressure 113/67 114/73 116/64 Pulse Oximetry 96 03/08/18 20:00 03/08/18 20:15 03/08/18 20:30 Temperature 99.6 F Pulse Rate 92 H Respiratory Rate 11 L Blood Pressure 119/63 126/76 118/78 Pulse Oximetry 96 03/08/18 20:50 03/08/18 21:00 03/08/18 21:15 Temperature Pulse Rate 92 H 96 H Respiratory Rate 20 16 4 L Blood Pressure 133/74 119/80 Pulse Oximetry 99 97 97 03/08/18 21:30 03/08/18 21:45 03/08/18 22:00 Temperature Pulse Rate 100 H 96 H 95 H Respiratory Rate 20 20 20 Blood Pressure 122/80 121/80 114/79 Pulse Oximetry 98 97 03/08/18 22:15 03/08/18 22:30 03/08/18 23:00 Temperature Pulse Rate 96 H 92 H 92 H Respiratory Rate 20 20 20 Blood Pressure 118/77 128/78 123/69 Pulse Oximetry 98 97 99 03/08/18 23:30 03/09/18 00:00 03/09/18 00:30 Temperature 99 F Pulse Rate 92 H 89 92 H Respiratory Rate 20 20 20 Blood Pressure 125/82 113/67 115/80 Pulse Oximetry 99 99 99 03/09/18 01:00 03/09/18 01:04 03/09/18 01:30 Temperature Pulse Rate 92 H 90 Respiratory Rate 20 20 20 Blood Pressure 123/74 122/73 Pulse Oximetry 99 98 99 03/09/18 02:00 03/09/18 02:30 03/09/18 03:00 Temperature Pulse Rate 90 92 H 93 H Respiratory Rate 22 20 20 Blood Pressure 126/79 124/85 119/71 Pulse Oximetry 99 99 98 03/09/18 03:30 03/09/18 03:53 03/09/18 04:00 Temperature 100 F H Pulse Rate 90 89 Respiratory Rate 20 20 20 Blood Pressure 122/75 121/79 Pulse Oximetry 99 97 99 03/09/18 06:00 03/09/18 07:00 03/09/18 08:00 Temperature 99.5 F Pulse Rate 88 89 Respiratory Rate 20 20 Blood Pressure 124/67 Pulse Oximetry 99 98 03/09/18 10:00 03/09/18 12:00 03/09/18 12:28 Temperature 99.5 F Pulse Rate 87 86 Respiratory Rate 20 20 Blood Pressure 122/75 Pulse Oximetry 97 03/09/18 14:00 03/09/18 16:00 Temperature 99.4 F Pulse Rate 86 86 Respiratory Rate 20 Blood Pressure 145/82 H Pulse Oximetry 98 Intake & Output 03/08/18 03/09/18 03/09/18 18:59 06:59 18:59 Intake Total 1730 / 1730 2780 / 2780 1674 / 1674 Output Total 900 / 900 1050 / 1050 1100 / 1100 Balance 830 / 830 1730 / 1730 574 / 574 Weight 93.7 kg Intake: IV 250 / 250 2296 / 2296 554 / 554 Cubicin Inj 1,000 MG In NS Inj 100 / 100 100 ML @ 200 mls/hr IV.SIG Q24H [facility] Rx#:[id number] D10W Inj 500 ML @ 30 mls/hr IV. 1000 / 1000 SIG .[id number] [facility] Rx#:[id number] INVanz Inj 1,000 MG In NS Inj 100 / 100 100 ML @ 200 mls/hr IV.SIG Q24H [facility] Rx#:[id number] Levaquin 750 mg Premix Inj 150 150 / 150 ML @ 100 mls/hr IV.SIG Q48H [facility] Rx#:[id number] Zyvox 600 mg Premix 300 ML @ 300 / 300 300 / 300 300 mls/hr IV.SIG Q12H [facility] Rx#: [id number] Merrem Inj 1,000 MG In NS Inj 100 / 100 100 / 100 100 ML @ 200 mls/hr IV.SIG Q12H [facility] Rx#:[id number] KCl 20 mEq Premix Inj 20 meq In 100 / 100 100 ml @ 50 mls/hr IV.SIG Q2H [facility] Rx#:[id number] fentaNYL 10 mcg/mL Premix Drip 250 / 250 446 / 446 54 / 54 2,500 mcg In 250 ml @ 50 MCG/HR 5 mls/hr IV.SIG TITRATE PRN Rx #:[id number] Tube Feeding 480 / 480 184 / 184 370 / 370 Tube Irrigant 100 / 100 Water Bolus Amount 900 / 900 300 / 300 750 / 750 Output: Urine Amount (Catheter) 900 / 900 1050 / 1050 1100 / 1100 Indwelling Urethral Catheter 900 / 900 1050 / 1050 1100 / 1100 Other: Date of Last Bowel Movement 03/05/18 03/08/18 03/09/18 # Bowel Movements 1 1 # Incontinent Bowel Movements 1 03/06/18 15:00 Bronchial - Left Lower Lobe Gram Stain - Final 03/06/18 15:00 Bronchial - Left Lower Lobe Bronchial Culture - Final Klebsiella pneumoniae ESBL pos S. aureus MRSA Proteus mirabilis 03/05/18 18:25 Blood - Peripheral Aerobic Blood Culture - Preliminary No growth in 4 days 03/05/18 18:25 Blood - Peripheral Anaerobic Blood Culture - Preliminary No growth in 4 days 03/05/18 18:10 Blood - Peripheral Aerobic Blood Culture - Preliminary No growth in 4 days 03/05/18 18:10 Blood - Peripheral Anaerobic Blood Culture - Preliminary No growth in 4 days 03/06/18 14:41 Fluid - Pleural fluid Gram Stain - Final 03/06/18 14:41 Fluid - Pleural fluid Body Fluid Culture - Final No growth in 72 hours (aerobically and anaerobically ) 03/03/18 19:53 Blood - Peripheral Aerobic Blood Culture - Final No growth in 5 days 03/03/18 19:53 Blood - Peripheral Anaerobic Blood Culture - Final No growth in 5 days 03/06/18 15:00 Bronchial Washings - Left Lower Lobe Acid Fast Bacilli Smear - Final No acid fast bacilli seen 03/06/18 15:00 Bronchial Washings - Left Lower Lobe Mycobacterial Culture - Pending 03/05/18 08:00 Sputum - Endotracheal Gram Stain - Final 03/05/18 08:00 Sputum - Endotracheal Sputum Culture - Final Klebsiella pneumoniae ESBL pos 03/05/18 11:25 Clean Catch Urine Urine Culture - Final No growth in 48 hours 03/06/18 15:00 Bronchial Washings - Left Lower Lobe Fungal Smear - Final No fungal elements seen 03/06/18 15:00 Bronchial Washings - Left Lower Lobe Fungal Culture - Pending Lab - Hematology Results 03/08/18 03/09/18 04:57 04:50 WBC 4.4 4.4 RBC 2.43 L 2.46 L Hgb 7.4 L 7.4 L Hct 22.5 L 22.7 L MCV 92.4 92.4 MCH 30.6 30.3 MCHC 33.1 32.8 RDW 17.0 16.8 Plt Count 119 L 130 L MPV 9.7 9.2 Neut % (Auto) 66.7 71.1 H Lymph % (Auto) 20.2 16.1 [place] % (Auto) 10.0 H 7.9 Eos % (Auto) 2.8 4.7 H Baso % (Auto) 0.3 0.2 Neut # (Auto) 2.9 3.1 Lymph # (Auto) 0.9 L 0.7 L [place] # (Auto) 0.4 0.3 Eos # (Auto) 0.1 0.2 Baso # (Auto) 0.0 0.0 WBC Differential . . Differential Comment Auto diff final Auto diff final Lab - Chemistry Results 03/07/18 03/07/18 03/07/18 21:04 21:37 23:50 Sodium Potassium Chloride Carbon Dioxide Anion Gap BUN Creatinine Estimated GFR POC Glucose 64 L 132 H 56 L Random Glucose Calcium Phosphorus Total Bilirubin AST ALT Alkaline Phosphatase Total Protein Total Protein (PEP) Albumin 03/08/18 03/08/18 03/08/18 00:13 03:46 04:57 Sodium 149 H Potassium 4.1 Chloride 112 H Carbon Dioxide 26.5 Anion Gap 11 BUN 61 H Creatinine 2.76 H Estimated GFR 30 L POC Glucose 164 H 60 L Random Glucose 96 Calcium 8.0 L Phosphorus Total Bilirubin 0.8 AST 176 H ALT 45 Alkaline Phosphatase 68 Total Protein 6.7 Total Protein (PEP) Albumin 1.9 L 03/08/18 03/08/18 03/08/18 05:55 08:15 08:51 Sodium Potassium Chloride Carbon Dioxide Anion Gap BUN Creatinine Estimated GFR POC Glucose 91 66 L 133 H Random Glucose Calcium Phosphorus Total Bilirubin AST ALT Alkaline Phosphatase Total Protein Total Protein (PEP) Albumin 03/08/18 03/08/18 03/08/18 12:48 16:28 21:20 Sodium Potassium Chloride Carbon Dioxide Anion Gap BUN Creatinine Estimated GFR POC Glucose 76 72 71 Random Glucose Calcium Phosphorus Total Bilirubin AST ALT Alkaline Phosphatase Total Protein Total Protein (PEP) Albumin 03/09/18 03/09/18 03/09/18 00:22 04:18 04:50 Sodium 146 H Potassium 3.3 L D Chloride 112 H Carbon Dioxide 26.0 Anion Gap 8 BUN 50 H Creatinine 2.47 H Estimated GFR 34 L POC Glucose 106 101 Random Glucose 90 Calcium 8.3 L Phosphorus 4.5 Total Bilirubin 0.6 AST 207 H ALT 59 Alkaline Phosphatase 74 Total Protein 6.8 Total Protein (PEP) 6.8 Albumin 1.8 L 03/09/18 03/09/18 03/09/18 09:06 12:09 16:40 Sodium Potassium Chloride Carbon Dioxide Anion Gap BUN Creatinine Estimated GFR POC Glucose 97 139 H 117 H Random Glucose Calcium Phosphorus Total Bilirubin AST ALT Alkaline Phosphatase Total Protein Total Protein (PEP) Albumin Imaging: ITS Impressions Abdomen/Pelvis CT 02/17/18 00:00 CONCLUSION: 1. Small bilateral pleural effusions and bilateral lower lung opacity again seen. 2. Mild splenomegaly again seen. 3. Gastrostomy tube in place. 4. No evidence of bowel dilatation. 5. Heterotopic ossification about the left hip again seen. 6. Calcified adrenal glands again seen. 7. Enlarged inguinal lymph nodes again seen. Venous Doppler Study 02/18/18 00:00 CONCLUSION: 1. No DVT or SVT. 2. 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 This measures 3.6 x 2.2 x 2.2 cm and is predominantly thrombosed with a small, 6 x 9 mm patent component showing biphasic flow. Central Venous Line 02/22/18 00:00 CONCLUSION: 1. Uncomplicated tunneled central venous Power PICC line placement. 2. The PICC line can be used immediately. Foot MRI 02/22/18 00:00 CONCLUSION: 1. Findings most characteristic of early osteomyelitis at the medial aspect of the first metatarsal head and a tiny focus of probable osteomyelitis at the medial corner of the proximal phalanx great toe. Mild surrounding cellulitis. 2. Previous partial amputation fifth metatarsal. Extremity Arterial Study 02/26/18 00:00 CONCLUSION: 1. Normal ABIs bilaterally. Chest CT 03/05/18 00:00 CONCLUSION: 1. Bilateral effusions and diffuse bilateral consolidation. Acuna Line Insertion 03/05/18 00:00 CONCLUSION: 1. Uncomplicated Acuna catheter placement as above. Chest X-Ray 03/07/18 00:00 CONCLUSION: No significant change. Diffuse bilateral parenchymal consolidation and small pleural effusions similar to before. Physical Exam: GENERAL: NAD SKIN: Warm and dry. HEAD: Atraumatic. Normocephalic. EYES: Pupils equal and round. No scleral icterus. No injection or drainage. ENT: No nasal bleeding or discharge. Mucous membranes pink and moist. CARDIOVASCULAR: Regular rate and rhythm. RESPIRATORY: No accessory muscle use. rhonchi to auscultation. Breath sounds equal bilaterally. GASTROINTESTINAL: Abdomen soft, non-tender, distended. Hepatic and splenic margins not palpable. PEG in place, tolerates TF @ 30 cc/hr MUSCULOSKELETAL: Extremities without clubbing, cyanosis, or edema. No obvious deformities. B/l feet with dressings in place + edema NEUROLOGICAL: lethargic, arousable Opens eyes No obvious cranial nerve deficits. L side hemiplegia, contracted PSYCHIATRIC: unable to assess Assessment and Plan - Plan B/L foot osteomyelitis MRSA, on vancomycin - trough level too high Anemia likely 2/2 vanco Mild CEDRIC, likely 2/2 vanco - pt has 2 adverse effects from vancomycin so far, I will recommend to avoid vancomycin Aspiration PNA - growing ESBL + kleb pneumo, MRSA and Proteus acute VDRF Hypotensive ? sepsis stable Diarreha, C.diff negative CEDRIC : GFR better today -no eos in urine cont ZYvox change to Ertapenem delia ARTEAGA
[2018-03-10] MEDS: Insulin NovoLIN Regular Correctional Sugar Inj SQ SCH ×6 (00:13→19:53)
[2018-03-10] MEDS: Dextrose 10% in Water Inj 500 ML IV.SIG SCH ×2 (04:20→15:26)
[2018-03-10 06:54] LABS: Albumin 1.8 g/dL (3.4-5.0); Anion Gap 9 meq/L (5-15); Aspartate Aminotransferase 139 U/L (15-37); Blood Urea Nitrogen 41 mg/dL (7-18); Calcium 8.4 mg/dL (8.5-10.1); Carbon Dioxide 24.5 meq/L (21.0-32.0); Chloride 112 meq/L (98-107); Glomerular Filtration Rate 42 mL/min (>89); Glucose,Random 69 mg/dL (74-106); Magnesium 2.2 mg/dL (1.5-2.5); Potassium 3.4 meq/L (3.5-5.1); Sodium 145 meq/L (136-145)
[2018-03-10 06:58] LABS: Alanine Aminotransferase 57 U/L (12-78); Alkaline Phosphatase 83 U/L (45-117); Phosphorus 3.9 mg/dL (2.5-4.9); Total Protein 6.8 g/dL (6.4-8.2)
[2018-03-10 07:17] LABS: Baso % (Auto) 0.2 % (0.0-2.0); Eos # (Auto) 0.2 th/mm3 (0.0-0.4); Eos % (Auto) 3.3 % (0.0-4.0); Hematocrit 23.1 % (39.0-51.0); Hemoglobin 7.8 gm/dL (13.0-17.0); Lymph # (Auto) 0.9 th/mm3 (1.0-4.8); Lymph % (Auto) 18.2 % (9.0-44.0); Mean Corpuscular HGB Conc 33.8 % (32.0-36.0); Mean Corpuscular Hemoglobin 30.7 pg (27.0-34.0); Mean Corpuscular Volume 90.9 fL (80.0-100.0); Mean Platelet Volume 9.4 fL (7.0-11.0); Mono # (Auto) 0.4 th/mm3 (0.0-0.9); Mono % (Auto) 8.1 % (0.0-8.0); Neut # (Auto) 3.6 th/mm3 (1.8-7.7); Neut % (Auto) 70.2 % (16.0-70.0); Platelet Count 136 th/mm3 (150-450); Red Blood Count 2.54 mil/mm3 (4.50-5.90); Red Cell Distribution Width 16.4 % (11.6-17.2); White Blood Count 5.1 th/mm3 (4.0-11.0)
[2018-03-10] MEDS: levETIRAcetam 500 MG Tablet G-TUBE SCH ×3 (08:28→17:43)
[2018-03-10] MEDS: Ascorbic Acid 500 MG Tablet G-TUBE SCH ×2 (08:28→20:05)
[2018-03-10] MEDS: Senna/Docusate Sodium 8.6/50 MG Tablet G-TUBE SCH ×2 (08:28→20:05)
--- NOTE | 2018-03-10 10:19 | P.PNCC ---
Subjective Subjective Remarks/Hospital Course: The patient is a 47-year-old male with a past medical history of a CVA with left -sided hemiparesis, hypertension, diabetes mellitus, anemia of chronic disease, CHF, dysphagia, status post PEG tube placement, depression, nonverbal, who was admitted under the hospitalist service on 02/17/2018 for acute on chronic anemia. In addition, the patient has a history of bilateral foot osteomyelitis. During his hospital course, he had worsening renal function with a creatinine of 1.74 this morning from 1.1 on admission. In addition, the patient was found hypernatremic with a sodium level of 156 and hyperkalemic with a potassium level 5.3. A halicat was called 2 days ago for shortness of breath, and this morning the patient had a PEA arrest. ACLS protocol was initiated and the patient received epinephrine x3, 2 amps of bicarbonate, and 1 amp of calcium and was subsequently intubated by myself with an ET tube 8.0 cm size. A chest x-ray post intubation showed diffuse bilateral pulmonary infiltrates. He was on NS at 100 mL an hour for the past 2 days. Also, he had a venous Doppler ultrasound on 02/18/2018, which showed no evidence of a DVT; however, it showed a pseudoaneurysm at the distal brachial artery measuring 3.6 x 2.2 x 2.2 cm, predominantly thrombosed; however, there was a small patent component with biphasic flow measuring 6 x 9 mm. A single lumen right PICC line was placed by interventional radiology on 02/22/2018. The patient also had an arterial Doppler ultrasound which was within normal. He was seen by Dr. Jensen from vascular surgery. In addition, the patient has been followed by podiatry and infectious disease. ABG postcode showed acute hypercapnic respiratory acidosis with a pH of 7.11, CO2 of 83, PaO2 of 99, bicarbonate 25, saturation 92% on PRVC mode, rate of 16, tidal volume 500, PEEP of 5, 100% FiO2, and I time 0.9. 03/06 Patient is sedated with Versed and Fenantl drips Levophed started overnight on 4 mics. Afebrile. Renal function worse this morning with C: 1.93 from 1.75 s/p transfusion 2U PRBC yesterday . 03/07: Remains sedated, arousable, orally intubated on mechanical ventilation. Sputum growing ESBL Klebsiella. 03/08 Patient remains intubated and Sedated with Fentanyl drip. Had T: 101 last night.Had an episode of hypoglycemia last night given D50 and placed on D10. 03/09 Patient remains sedated and intubated. T: 100 at 4 am. 03/10 Patient is intubated, sedated T:99.9. renal function is improving with Cr: 2.08 from 2.47 Objective Vital Signs / I&O: Vital Signs 03/09/18 12:00 03/09/18 12:28 03/09/18 14:00 Temperature 99.5 F Pulse Rate 86 86 Respiratory Rate 20 20 Blood Pressure 122/75 Pulse Oximetry 97 03/09/18 16:00 03/09/18 18:00 03/09/18 19:00 Temperature 99.4 F Pulse Rate 86 90 89 Respiratory Rate 20 4 L Blood Pressure 145/82 H 126/71 Pulse Oximetry 98 95 03/09/18 19:30 03/09/18 20:00 03/09/18 20:11 Temperature 99.4 F Pulse Rate 88 89 Respiratory Rate 1 L 3 L 20 Blood Pressure 134/79 131/77 Pulse Oximetry 99 94 L 97 03/09/18 20:30 03/09/18 21:00 03/09/18 21:30 Temperature Pulse Rate 90 91 H 89 Respiratory Rate 14 5 L 0 L Blood Pressure 131/81 129/77 125/74 Pulse Oximetry 96 99 92 L 03/09/18 22:00 03/09/18 22:30 03/09/18 23:00 Temperature Pulse Rate 87 88 87 Respiratory Rate 0 L 1 L 1 L Blood Pressure 122/73 128/73 117/89 Pulse Oximetry 94 L 97 92 L 03/09/18 23:30 03/09/18 23:56 03/10/18 00:00 Temperature 99.9 F H Pulse Rate 90 90 Respiratory Rate 7 L 20 20 Blood Pressure 124/74 118/76 Pulse Oximetry 98 98 98 03/10/18 00:30 03/10/18 01:00 03/10/18 01:30 Temperature Pulse Rate 88 85 85 Respiratory Rate 20 0 L 0 L Blood Pressure 119/73 119/83 121/74 Pulse Oximetry 98 99 98 03/10/18 02:00 03/10/18 02:30 03/10/18 03:00 Temperature Pulse Rate 84 84 85 Respiratory Rate 0 L 0 L 11 L Blood Pressure 119/73 112/71 143/85 H Pulse Oximetry 98 98 97 03/10/18 03:30 03/10/18 03:55 03/10/18 04:00 Temperature 98.9 F Pulse Rate 85 85 Respiratory Rate 15 20 1 L Blood Pressure 127/94 H 127/76 Pulse Oximetry 97 99 98 03/10/18 04:30 03/10/18 05:00 03/10/18 06:00 Temperature Pulse Rate 85 85 86 Respiratory Rate 20 1 L Blood Pressure 133/78 125/95 H Pulse Oximetry 98 98 03/10/18 07:00 03/10/18 08:00 Temperature Pulse Rate 84 Respiratory Rate 20 Blood Pressure Pulse Oximetry 98 Intake & Output 03/09/18 03/10/18 03/10/18 18:59 06:59 18:59 Intake Total 1774 / 1774 3134 / 3134 Output Total 1100 / 1100 850 / 850 Balance 674 / 674 2284 / 2284 Weight 94.9 kg Intake: IV 654 / 654 1923 / 1923 D10W Inj 500 ML @ 30 mls/hr IV. 1000 / 1000 SIG .[id number] [facility] Rx#:[id number] INVanz Inj 1,000 MG In NS Inj 100 / 100 100 ML @ 100 mls/hr IV.SIG Q24H [facility] Rx#:[id number] Zyvox 600 mg Premix 300 ML @ 300 / 300 300 / 300 300 mls/hr IV.SIG Q12H [facility] Rx#: [id number] Merrem Inj 1,000 MG In NS Inj 100 / 100 100 ML @ 200 mls/hr IV.SIG Q12H [facility] Rx#:[id number] KCl 20 mEq Premix Inj 20 meq In 200 / 200 100 ml @ 50 mls/hr IV.SIG Q2H [facility] Rx#:[id number] fentaNYL 10 mcg/mL Premix Drip 54 / 54 523 / 523 2,500 mcg In 250 ml @ 50 MCG/HR 5 mls/hr IV.SIG TITRATE PRN Rx #:[id number] Tube Feeding 370 / 370 311 / 311 Water Bolus Amount 750 / 750 900 / 900 Output: Urine Amount (Catheter) 1100 / 1100 850 / 850 Indwelling Urethral Catheter 1100 / 1099 850 / 850 Other: Date of Last Bowel Movement 03/09/18 03/10/18 03/10/18 # Bowel Movements 1 # Incontinent Bowel Movements 1 Result Diagrams: 03/10/18 05:25 03/10/18 05:25 Other Results: Laboratory Results - last 12 hr 03/09/18 03/10/18 03/10/18 23:47 05:25 05:25 WBC 5.1 RBC 2.54 L Hgb 7.8 L Hct 23.1 L MCV 90.9 MCH 30.7 MCHC 33.8 RDW 16.4 Plt Count 136 L MPV 9.4 Neut % (Auto) 70.2 H Lymph % (Auto) 18.2 [place] % (Auto) 8.1 H Eos % (Auto) 3.3 Baso % (Auto) 0.2 Neut # (Auto) 3.6 Lymph # (Auto) 0.9 L [place] # (Auto) 0.4 Eos # (Auto) 0.2 Baso # (Auto) 0.0 WBC Differential . Differential Comment Auto diff final Sodium 145 Potassium 3.4 L Chloride 112 H Carbon Dioxide 24.5 Anion Gap 9 BUN 41 H Creatinine 2.08 H Estimated GFR 42 L POC Glucose 74 Random Glucose 69 L Calcium 8.4 L Phosphorus 3.9 Magnesium 2.2 Total Bilirubin 0.6 AST 139 H ALT 57 Alkaline Phosphatase 83 Total Protein 6.8 Albumin 1.8 L 03/10/18 03/10/18 05:28 08:29 WBC RBC Hgb Hct MCV MCH MCHC RDW Plt Count MPV Neut % (Auto) Lymph % (Auto) [place] % (Auto) Eos % (Auto) Baso % (Auto) Neut # (Auto) Lymph # (Auto) [place] # (Auto) Eos # (Auto) Baso # (Auto) WBC Differential Differential Comment Sodium Potassium Chloride Carbon Dioxide Anion Gap BUN Creatinine Estimated GFR POC Glucose 87 91 Random Glucose Calcium Phosphorus Magnesium Total Bilirubin AST ALT Alkaline Phosphatase Total Protein Albumin Imaging: Abdomen/Pelvis CT 02/17/18 00:00 CONCLUSION: 1. Small bilateral pleural effusions and bilateral lower lung opacity again seen. 2. Mild splenomegaly again seen. 3. Gastrostomy tube in place. 4. No evidence of bowel dilatation. 5. Heterotopic ossification about the left hip again seen. 6. Calcified adrenal glands again seen. 7. Enlarged inguinal lymph nodes again seen. Venous Doppler Study 02/18/18 00:00 CONCLUSION: 1. No DVT or SVT. 2. 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 This measures 3.6 x 2.2 x 2.2 cm and is predominantly thrombosed with a small, 6 x 9 mm patent component showing biphasic flow. Central Venous Line 02/22/18 00:00 CONCLUSION: 1. Uncomplicated tunneled central venous Power PICC line placement. 2. The PICC line can be used immediately. Foot MRI 02/22/18 00:00 CONCLUSION: 1. Findings most characteristic of early osteomyelitis at the medial aspect of the first metatarsal head and a tiny focus of probable osteomyelitis at the medial corner of the proximal phalanx great toe. Mild surrounding cellulitis. 2. Previous partial amputation fifth metatarsal. Extremity Arterial Study 02/26/18 00:00 CONCLUSION: 1. Normal ABIs bilaterally. Chest CT 03/05/18 00:00 CONCLUSION: 1. Bilateral effusions and diffuse bilateral consolidation. Acuna Line Insertion 03/05/18 00:00 CONCLUSION: 1. Uncomplicated Acuna catheter placement as above. Chest X-Ray 03/07/18 00:00 CONCLUSION: No significant change. Diffuse bilateral parenchymal consolidation and small pleural effusions similar to before. Objective Remarks: GENERAL: Patient is 47 yo intubated and sedated SKIN: Warm and dry. HEAD: Normocephalic. EYES: No scleral icterus. No injection or drainage. NECK: Supple, trachea midline. No JVD or lymphadenopathy. CARDIOVASCULAR: Regular rate and rhythm without murmurs, gallops, or rubs. RESPIRATORY: Breath sounds equal bilaterally. No accessory muscle use. GASTROINTESTINAL: Abdomen soft, non-tender, nondistended. + PEG tube MUSCULOSKELETAL: No cyanosis, or edema. Neuro: Sedated, intubated Assessment and Plan - Assessment and Plan Plan: 1. VDRF 2. S/p PEA arrest 3. Diffuse bilateral pulmonary infiltrates, ddx aspiration pneumonia and fluid overload. 4. Hypertension. 5. Acute kidney injury. 6. History CVA with left-sided hemiparesis. 7. 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 8. Bilateral foot osteomyelitis methicillin-resistant Staphylococcus aureus. Plan Neuro: on fentanyl infusion for sedation. Daily sedation vacation. on Keppra 500 mg t.i.d. for a history of seizures. Pulm: Continue with ventilatory support and maintain sats> 92%. On PRVC RR 20, TV 600, IT:0.9, PEEP:8, FIO2: 45% Bronchodilators, ICU vent bundle. s/p diagnostic US guided thoracentesis 40ml removed ( transudative fluid ) Bronch with BAL 03/06 showed secretions L>R suctioned to clear, BAL performed LLL. BAL: Kleb pneumonia ESBL, Proteus Mirabilis, MRSA CV: Monitor HR and BP and maintain MAP> 65 mmHg. Echo showed EF 60-65% : Monitor renal function, I's and O's and avoid nephrotoxins. Renal function is improving with Cr: 2.08 from 2.47 Continue with Free water 300ml Q6 monitor sodium level GI: On Prevacid 30 mg daily. Start tube feeds- On Nepro with goal rate 40ml/hr ID: Continue with abx ( Ertapenem, Zyvox) ID is following Follow up on Blood and urine cx from 03/05- NGTD 03/05 Sputum cx: ESBL Klebsiella BAL cx 03/06: Kleb pneumonia ESBL, Proteus Mirabilis, MRSA Wound culture growing MRSA from osteomyelitis site. Heme: Monitor CBC and coags. s/p transfusion 2u PRBC 03/05 heme occult negative Endo: SSI with Accu-Cheks for glycemic control. On D10@30ml/hr GI prophylaxis- On Prevacid DVT prophylaxis- SCD, heparin SQ held for anemia requiring blood transfusion. IV access: RUE single lumen PICC line repositioned by IR 03/05 Condition critical Time spent on critical care excluding procedures 30 minutes
--- NOTE | 2018-03-10 10:26 | P.PNPOD ---
Subjective Interval history: Currently on ventilator. Known left foot ulcer. Patient with protective foam boots and air mattress in place. Physical Exam Vital signs: Vital Signs 03/09/18 12:00 03/09/18 12:28 03/09/18 14:00 Temperature 99.5 F Pulse Rate 86 86 Respiratory Rate 20 20 Blood Pressure 122/75 Pulse Oximetry 97 03/09/18 16:00 03/09/18 18:00 03/09/18 19:00 Temperature 99.4 F Pulse Rate 86 90 89 Respiratory Rate 20 4 L Blood Pressure 145/82 H 126/71 Pulse Oximetry 98 95 03/09/18 19:30 03/09/18 20:00 03/09/18 20:11 Temperature 99.4 F Pulse Rate 88 89 Respiratory Rate 1 L 3 L 20 Blood Pressure 134/79 131/77 Pulse Oximetry 99 94 L 97 03/09/18 20:30 03/09/18 21:00 03/09/18 21:30 Temperature Pulse Rate 90 91 H 89 Respiratory Rate 14 5 L 0 L Blood Pressure 131/81 129/77 125/74 Pulse Oximetry 96 99 92 L 03/09/18 22:00 03/09/18 22:30 03/09/18 23:00 Temperature Pulse Rate 87 88 87 Respiratory Rate 0 L 1 L 1 L Blood Pressure 122/73 128/73 117/89 Pulse Oximetry 94 L 97 92 L 03/09/18 23:30 03/09/18 23:56 03/10/18 00:00 Temperature 99.9 F H Pulse Rate 90 90 Respiratory Rate 7 L 20 20 Blood Pressure 124/74 118/76 Pulse Oximetry 98 98 98 03/10/18 00:30 03/10/18 01:00 03/10/18 01:30 Temperature Pulse Rate 88 85 85 Respiratory Rate 20 0 L 0 L Blood Pressure 119/73 119/83 121/74 Pulse Oximetry 98 99 98 03/10/18 02:00 03/10/18 02:30 03/10/18 03:00 Temperature Pulse Rate 84 84 85 Respiratory Rate 0 L 0 L 11 L Blood Pressure 119/73 112/71 143/85 H Pulse Oximetry 98 98 97 03/10/18 03:30 03/10/18 03:55 03/10/18 04:00 Temperature 98.9 F Pulse Rate 85 85 Respiratory Rate 15 20 1 L Blood Pressure 127/94 H 127/76 Pulse Oximetry 97 99 98 03/10/18 04:30 03/10/18 05:00 03/10/18 06:00 Temperature Pulse Rate 85 85 86 Respiratory Rate 20 1 L Blood Pressure 133/78 125/95 H Pulse Oximetry 98 98 03/10/18 07:00 03/10/18 08:00 Temperature Pulse Rate 84 Respiratory Rate 20 Blood Pressure Pulse Oximetry 98 Intake & Output 03/09/18 03/10/18 03/10/18 18:59 06:59 18:59 Intake Total 1774 / 1774 3134 / 3134 Output Total 1100 / 1100 850 / 850 Balance 674 / 674 2284 / 2284 Weight 94.9 kg Intake: IV 654 / 654 1923 / 1923 D10W Inj 500 ML @ 30 mls/hr IV. 1000 / 1000 SIG .[id number] [facility] Rx#:[id number] INVanz Inj 1,000 MG In NS Inj 100 / 100 100 ML @ 100 mls/hr IV.SIG Q24H [facility] Rx#:[id number] Zyvox 600 mg Premix 300 ML @ 300 / 300 300 / 300 300 mls/hr IV.SIG Q12H [facility] Rx#: [id number] Merrem Inj 1,000 MG In NS Inj 100 / 100 100 ML @ 200 mls/hr IV.SIG Q12H [facility] Rx#:[id number] KCl 20 mEq Premix Inj 20 meq In 200 / 200 100 ml @ 50 mls/hr IV.SIG Q2H [facility] Rx#:[id number] fentaNYL 10 mcg/mL Premix Drip 54 / 54 523 / 523 2,500 mcg In 250 ml @ 50 MCG/HR 5 mls/hr IV.SIG TITRATE PRN Rx #:[id number] Tube Feeding 370 / 370 311 / 311 Water Bolus Amount 750 / 750 900 / 900 Output: Urine Amount (Catheter) 1100 / 1100 850 / 850 Indwelling Urethral Catheter 1100 / 1100 850 / 850 Other: Date of Last Bowel Movement 03/09/18 03/10/18 03/10/18 # Bowel Movements 1 # Incontinent Bowel Movements 1 Narrative: No changes from previous evaluation. Wound remain stable, right foot is closed and callused. Medications and Allergies Active Medications: Active Medications Al Hydroxide/Mg Hydroxide (Milk Of Magnesia Liq) 30 ml G-TUBE Q12H PRN PRN Reason: Mild Constipation Albuterol (Duoneb Neb (Prn)) 1 ampul NEB Q4HR NEB PRN PRN Reason: SHORTNESS OF BREATH/WHEEZING Last Admin: 03/08/18 16:46 Dose: 1 ampul Amlodipine Besylate (Norvasc) 10 mg G-TUBE DAILY [facility] Last Admin: 03/05/18 09:12 Dose: Not Given Ascorbic Acid (Vitamin C) 500 mg G-TUBE BID [facility] Last Admin: 03/10/18 08:28 Dose: 500 mg Atorvastatin Calcium (Lipitor) 10 mg G-TUBE HS [facility] Last Admin: 03/09/18 21:27 Dose: 10 mg Bisacodyl (Dulcolax Supp) 10 mg RECTAL DAILY PRN PRN Reason: SEVERE CONSITIPATION Carvedilol (Coreg) 25 mg G-TUBE BID [facility] Last Admin: 03/05/18 09:11 Dose: Not Given Dextrose (D50w Vial) 50 ml IV.PUSH UNSCH PRN PRN Reason: PER HYPOGLYCEMIA PROTOCOL Last Admin: 03/08/18 08:22 Dose: 50 ml Enalaprilat (Vasotec Inj) 2.5 mg IV.PUSH Q6H PRN PRN Reason: SBP>160, DBP>90 Last Admin: 02/21/18 01:34 Dose: 2.5 mg Escitalopram Oxalate (Lexapro) 15 mg G-TUBE DAILY [facility] Last Admin: 03/06/18 08:05 Dose: 15 mg Glucagon (Glucagon Inj) 1 mg OTHER PRN PRN PRN Reason: for Hypoglycemia Protocol Heparin Sodium (Porcine) (Heparin Inj) 5,000 units SQ Q12HR [facility] Last Admin: 03/05/18 09:25 Dose: 5,000 units Hydralazine HCl (Apresoline) 100 mg G-TUBE TID [facility] Last Admin: 03/05/18 09:11 Dose: Not Given Fentanyl (Fentanyl 10 Mcg/Ml Premix Drip) 2,500 mcg in 250 mls @ 5 mls/hr IV.SIG TITRATE PRN; Protocol PRN Reason: Per Protocol Last Titration: 03/10/18 05:38 Dose: Infused Midazolam HCl (Versed Inj) 50 mg in 50 mls @ 2 mls/hr IV.CONT TITRATE PRN; Protocol PRN Reason: Per Protocol Last Titration: 03/06/18 16:04 Dose: Infused Norepinephrine Bitartrate (Levophed-Dextrose 4 Mg/250 Ml Drip) 4 mg in 250 mls @ 7.5 mls/hr IV.SIG TITRATE PRN; Protocol PRN Reason: Per Protocol Last Titration: 03/06/18 16:04 Dose: Infused Dextrose (D10w Inj) 500 mls @ 30 mls/hr IV.SIG .[id number] [facility] Last Admin: 03/10/18 04:20 Dose: 30 mls/hr Linezolid (Zyvox 600 Mg Premix) 300 mls @ 300 mls/hr IV.SIG Q12H [facility] Last Admin: 03/10/18 09:56 Dose: 300 mls/hr Ertapenem 1,000 mg/ Sodium (Chloride) 100 mls @ 100 mls/hr IV.SIG Q24H [facility] Last Infusion: 03/09/18 22:30 Dose: Infused Insulin Human Regular (Novolin R Correctional Sugar Inj) 0 units SQ Q4HR [facility]; Protocol Last Admin: 03/10/18 08:29 Dose: Not Given Lactulose (Lactulose Liq) 30 ml G-TUBE DAILY PRN PRN Reason: SEVERE CONSITIPATION Lansoprazole (Prevacid Solutab) 30 mg NG/OG DAILY [facility] Last Admin: 03/10/18 08:28 Dose: 30 mg Levetiracetam (Keppra) 500 mg G-TUBE TID [facility] Last Admin: 03/10/18 08:28 Dose: 500 mg Miscellaneous (Pill Splitter) 1 each OTHER ONCE [facility] Ondansetron HCl (Zofran Inj) 4 mg IV.PUSH Q6H PRN PRN Reason: NAUSEA OR VOMITING Last Admin: 02/27/18 12:25 Dose: 4 mg Senna/Docusate Sodium (Jessie-Colace) 1 tab G-TUBE BID [facility] Last Admin: 03/10/18 08:28 Dose: 1 tab Sennosides (Senokot) 17.2 mg PO Q12H PRN PRN Reason: Moderate Constipation Sterile Water (Free Water) 300 ml G-TUBE Q6HR [facility] Last Admin: 03/10/18 05:31 Dose: 300 ml Temazepam (Restoril) 15 mg PO HS PRN PRN Reason: INSOMNIA Last Admin: 03/01/18 21:33 Dose: 15 mg Terbutaline Sulfate (Brethine Inj) 1 mg SQ UNSCH PRN PRN Reason: For Extravasation Allergies Allergy/AdvReac Type Severity Reaction Status Date / Time No Known Allergies Allergy Unknown Uncoded 01/06/18 21:04 Home Medications Medication Instructions Recorded Confirmed Type ascorbic acid (vitamin C) [Vitamin 500 mg PO BID 01/15/18 02/17/18 History C] aspirin [Aspir-81] 81 mg FEEDING TUBE DAILY 01/15/18 02/17/18 History atorvastatin 10 mg FEEDING TUBE HS 01/15/18 02/17/18 History carvedilol [Coreg] 25 mg FEEDING TUBE BID 01/15/18 02/17/18 History escitalopram oxalate 15 mg FEEDING TUBE DAILY 01/15/18 02/17/18 History gentamicin 1 applic TOPICAL QID 01/15/18 02/17/18 History hydralazine 100 mg PO TID 01/15/18 02/17/18 History insulin detemir U-100 [Levemir 5 unit SUB-Q BID 01/15/18 02/17/18 History U-100 Insulin] ipratropium-albuterol 3 ml INHALATION Q6-8H PRN 01/15/18 02/17/18 History levetiracetam 500 mg PO TID 01/15/18 02/17/18 History melatonin 3 mg FEEDING TUBE HS 01/15/18 02/17/18 History insulin aspart U-100 [Novolog 1 sliding scale dose SUB-Q UD 02/17/18 02/17/18 History U-100 Insulin aspart] Results - Labs CBC & Chem 7: 03/10/18 05:25 03/10/18 05:25 Laboratory Results - last 24 hr 03/09/18 03/09/18 03/09/18 12:09 16:40 21:10 WBC RBC Hgb Hct MCV MCH MCHC RDW Plt Count MPV Neut % (Auto) Lymph % (Auto) [place] % (Auto) Eos % (Auto) Baso % (Auto) Neut # (Auto) Lymph # (Auto) [place] # (Auto) Eos # (Auto) Baso # (Auto) WBC Differential Differential Comment Sodium Potassium Chloride Carbon Dioxide Anion Gap BUN Creatinine Estimated GFR POC Glucose 139 H 117 H 208 H Random Glucose Calcium Phosphorus Magnesium Total Bilirubin AST ALT Alkaline Phosphatase Total Protein Albumin 03/09/18 03/10/18 03/10/18 23:47 05:25 05:25 WBC 5.1 RBC 2.54 L Hgb 7.8 L Hct 23.1 L MCV 90.9 MCH 30.7 MCHC 33.8 RDW 16.4 Plt Count 136 L MPV 9.4 Neut % (Auto) 70.2 H Lymph % (Auto) 18.2 [place] % (Auto) 8.1 H Eos % (Auto) 3.3 Baso % (Auto) 0.2 Neut # (Auto) 3.6 Lymph # (Auto) 0.9 L [place] # (Auto) 0.4 Eos # (Auto) 0.2 Baso # (Auto) 0.0 WBC Differential . Differential Comment Auto diff final Sodium 145 Potassium 3.4 L Chloride 112 H Carbon Dioxide 24.5 Anion Gap 9 BUN 41 H Creatinine 2.08 H Estimated GFR 42 L POC Glucose 74 Random Glucose 69 L Calcium 8.4 L Phosphorus 3.9 Magnesium 2.2 Total Bilirubin 0.6 AST 139 H ALT 57 Alkaline Phosphatase 83 Total Protein 6.8 Albumin 1.8 L 03/10/18 03/10/18 05:28 08:29 WBC RBC Hgb Hct MCV MCH MCHC RDW Plt Count MPV Neut % (Auto) Lymph % (Auto) [place] % (Auto) Eos % (Auto) Baso % (Auto) Neut # (Auto) Lymph # (Auto) [place] # (Auto) Eos # (Auto) Baso # (Auto) WBC Differential Differential Comment Sodium Potassium Chloride Carbon Dioxide Anion Gap BUN Creatinine Estimated GFR POC Glucose 87 91 Random Glucose Calcium Phosphorus Magnesium Total Bilirubin AST ALT Alkaline Phosphatase Total Protein Albumin Microbiology 03/06/18 15:00 Bronchial - Left Lower Lobe Gram Stain - Final 03/06/18 15:00 Bronchial - Left Lower Lobe Bronchial Culture - Final Klebsiella pneumoniae ESBL pos S. aureus MRSA Proteus mirabilis 03/05/18 18:25 Blood - Peripheral Aerobic Blood Culture - Preliminary No growth in 4 days 03/05/18 18:25 Blood - Peripheral Anaerobic Blood Culture - Preliminary No growth in 4 days 03/05/18 18:10 Blood - Peripheral Aerobic Blood Culture - Preliminary No growth in 4 days 03/05/18 18:10 Blood - Peripheral Anaerobic Blood Culture - Preliminary No growth in 4 days 03/06/18 14:41 Fluid - Pleural fluid Gram Stain - Final 03/06/18 14:41 Fluid - Pleural fluid Body Fluid Culture - Final No growth in 72 hours (aerobically and anaerobically ) Assessment and Plan - Assessment (1) Foot ulcer, right Code(s): L97.519 - Non-pressure chronic ulcer of other part of right foot with unspecified severity Status: Acute (2) Foot ulcer, left Code(s): L97.529 - Non-pressure chronic ulcer of other part of left foot with unspecified severity Status: Resolved (3) Osteomyelitis of ankle and foot Code(s): M86.9 - Osteomyelitis, unspecified Status: Acute - Plan -cont wound care with nursing -cont offloading with foam boots -known left foot OM, due to severe contractures previous treatment options discussed were iv abx vs AKA -will cont to monitor intermittently
--- NOTE | 2018-03-10 10:59 | P.PNNP ---
Subjective Interval history: remains intubated Physical Exam Vital signs: Vital Signs 03/09/18 12:00 03/09/18 12:28 03/09/18 14:00 Temperature 99.5 F Pulse Rate 86 86 Respiratory Rate 20 20 Blood Pressure 122/75 Pulse Oximetry 97 03/09/18 16:00 03/09/18 18:00 03/09/18 19:00 Temperature 99.4 F Pulse Rate 86 90 89 Respiratory Rate 20 4 L Blood Pressure 145/82 H 126/71 Pulse Oximetry 98 95 03/09/18 19:30 03/09/18 20:00 03/09/18 20:11 Temperature 99.4 F Pulse Rate 88 89 Respiratory Rate 1 L 3 L 20 Blood Pressure 134/79 131/77 Pulse Oximetry 99 94 L 97 03/09/18 20:30 03/09/18 21:00 03/09/18 21:30 Temperature Pulse Rate 90 91 H 89 Respiratory Rate 14 5 L 0 L Blood Pressure 131/81 129/77 125/74 Pulse Oximetry 96 99 92 L 03/09/18 22:00 03/09/18 22:30 03/09/18 23:00 Temperature Pulse Rate 87 88 87 Respiratory Rate 0 L 1 L 1 L Blood Pressure 122/73 128/73 117/89 Pulse Oximetry 94 L 97 92 L 03/09/18 23:30 03/09/18 23:56 03/10/18 00:00 Temperature 99.9 F H Pulse Rate 90 90 Respiratory Rate 7 L 20 20 Blood Pressure 124/74 118/76 Pulse Oximetry 98 98 98 03/10/18 00:30 03/10/18 01:00 03/10/18 01:30 Temperature Pulse Rate 88 85 85 Respiratory Rate 20 0 L 0 L Blood Pressure 119/73 119/83 121/74 Pulse Oximetry 98 99 98 03/10/18 02:00 03/10/18 02:30 03/10/18 03:00 Temperature Pulse Rate 84 84 85 Respiratory Rate 0 L 0 L 11 L Blood Pressure 119/73 112/71 143/85 H Pulse Oximetry 98 98 97 03/10/18 03:30 03/10/18 03:55 03/10/18 04:00 Temperature 98.9 F Pulse Rate 85 85 Respiratory Rate 15 20 1 L Blood Pressure 127/94 H 127/76 Pulse Oximetry 97 99 98 03/10/18 04:30 03/10/18 05:00 03/10/18 06:00 Temperature Pulse Rate 85 85 86 Respiratory Rate 20 1 L Blood Pressure 133/78 125/95 H Pulse Oximetry 98 98 03/10/18 07:00 03/10/18 08:00 03/10/18 10:00 Temperature 98.9 F Pulse Rate 84 85 Respiratory Rate 20 20 Blood Pressure 129/80 Pulse Oximetry 98 97 Intake & Output 03/09/18 03/10/18 03/10/18 18:59 06:59 18:59 Intake Total 1774 / 1774 3134 / 3134 Output Total 1100 / 1100 850 / 850 Balance 674 / 674 2284 / 2284 Weight 94.9 kg Intake: IV 654 / 654 1923 / 1923 D10W Inj 500 ML @ 30 mls/hr IV. 1000 / 1000 SIG .[id number] [facility] Rx#:[id number] INVanz Inj 1,000 MG In NS Inj 100 / 100 100 ML @ 100 mls/hr IV.SIG Q24H [facility] Rx#:[id number] Zyvox 600 mg Premix 300 ML @ 300 / 300 300 / 300 300 mls/hr IV.SIG Q12H [facility] Rx#: [id number] Merrem Inj 1,000 MG In NS Inj 100 / 100 100 ML @ 200 mls/hr IV.SIG Q12H [facility] Rx#:[id number] KCl 20 mEq Premix Inj 20 meq In 200 / 200 100 ml @ 50 mls/hr IV.SIG Q2H [facility] Rx#:[id number] fentaNYL 10 mcg/mL Premix Drip 54 / 54 523 / 523 2,500 mcg In 250 ml @ 50 MCG/HR 5 mls/hr IV.SIG TITRATE PRN Rx #:[id number] Tube Feeding 370 / 370 311 / 311 Water Bolus Amount 750 / 750 900 / 900 Output: Urine Amount (Catheter) 1100 / 1100 850 / 850 Indwelling Urethral Catheter 1100 / 1100 850 / 850 Other: Date of Last Bowel Movement 03/09/18 03/10/18 03/10/18 # Bowel Movements 1 # Incontinent Bowel Movements 1 - Constitutional no acute distress - Routine HEENT Exam Head: Present: normocephalic - Routine Neck Exam Present: supple - Routine Respiratory Exam Present: patient mechanically ventilated - Routine Cardiovascular Exam Present: RRR - Routine Abdominal Exam Present: soft - Routine Extremities Exam Present: edema - Routine Skin Exam Present: intact - Urinary Catheter Management Indwelling Urethral Catheter Cath placed during this visit: yes Reason for continuing: Acute urinary retention Insertion date: 03/05/18 Insertion time: 08:00 Assessment and Plan - Assessment (1) Acute kidney injury Code(s): N17.9 - Acute kidney failure, unspecified Status: Acute Plan: Acute kidney injury with a creatinine of 2.76 -> 2.47 -> 2.0 Initial worsening since the , now improving. Acute kidney injury possible related to vancomycin toxicity last dose on the Creatinine noted to be 1.07 on 02/26. CT of pelvis on admission with kidney of normal in size and shape and no evidence of mass or hydronephrosis. Good UOP with 1.9L UOP over last 24 hours Plan Suspect vanco toxicity Avoid nephrotoxins including IV contrast, NSAIDS,and aminoglycosides. Maintain strict I+o, maintain indwelling Dudley catheter Continue to monitor urinary output and BMP. Creatinine slightly better with good UOP. Negative urine eosinphilis, complements. Serologies and SPEP pending. (2) Anemia of chronic disorder Code(s): D63.8 - Anemia in other chronic diseases classified elsewhere Status : Acute Plan: HGB stable at 7.8 (3) Hypernatremia Code(s): E87.0 - Hyperosmolality and hypernatremia Status: Acute Plan: Sodium level is improving at 145, continue free water 300ml every 6 hours.
[2018-03-10] MEDS: fentaNYL 10 mcg/mL Premix Drip 2,500 MCG/250 ML BAG IV.SIG PRN ×2 (13:31→23:33)
[2018-03-11] MEDS: Insulin NovoLIN Regular Correctional Sugar Inj SQ SCH ×6 (01:07→20:05)
[2018-03-11 05:22] LABS: Baso % (Auto) 0.4 % (0.0-2.0); Eos # (Auto) 0.2 th/mm3 (0.0-0.4); Eos % (Auto) 3.4 % (0.0-4.0); Hematocrit 21.6 % (39.0-51.0); Hemoglobin 7.3 gm/dL (13.0-17.0); Lymph % (Auto) 20.3 % (9.0-44.0); Mean Corpuscular HGB Conc 34.1 % (32.0-36.0); Mean Corpuscular Hemoglobin 30.6 pg (27.0-34.0); Mean Corpuscular Volume 89.8 fL (80.0-100.0); Mono # (Auto) 0.5 th/mm3 (0.0-0.9); Mono % (Auto) 10.6 % (0.0-8.0); Neut # (Auto) 3.2 th/mm3 (1.8-7.7); Neut % (Auto) 65.3 % (16.0-70.0); Platelet Count 125 th/mm3 (150-450); Red Cell Distribution Width 16.3 % (11.6-17.2); White Blood Count 4.8 th/mm3 (4.0-11.0)
[2018-03-11 05:26] LABS: Albumin 1.6 g/dL (3.4-5.0); Anion Gap 11 meq/L (5-15); Aspartate Aminotransferase 81 U/L (15-37); Blood Urea Nitrogen 38 mg/dL (7-18); Calcium 8.1 mg/dL (8.5-10.1); Carbon Dioxide 22.7 meq/L (21.0-32.0); Chloride 110 meq/L (98-107); Glomerular Filtration Rate 46 mL/min (>89); Glucose,Random 83 mg/dL (74-106); Potassium 3.4 meq/L (3.5-5.1); Sodium 144 meq/L (136-145)
[2018-03-11 05:30] LABS: Alanine Aminotransferase 49 U/L (12-78); Alkaline Phosphatase 91 U/L (45-117); Total Protein 6.3 g/dL (6.4-8.2)
[2018-03-11] MEDS: Dextrose 10% in Water Inj 500 ML IV.SIG SCH (06:41)
--- NOTE | 2018-03-11 08:35 | P.PNCC ---
Subjective Subjective Remarks/Hospital Course: The patient is a 47-year-old male with a past medical history of a CVA with left -sided hemiparesis, hypertension, diabetes mellitus, anemia of chronic disease, CHF, dysphagia, status post PEG tube placement, depression, nonverbal, who was admitted under the hospitalist service on 02/17/2018 for acute on chronic anemia. In addition, the patient has a history of bilateral foot osteomyelitis. During his hospital course, he had worsening renal function with a creatinine of 1.74 this morning from 1.1 on admission. In addition, the patient was found hypernatremic with a sodium level of 156 and hyperkalemic with a potassium level 5.3. A halicat was called 2 days ago for shortness of breath, and this morning the patient had a PEA arrest. ACLS protocol was initiated and the patient received epinephrine x3, 2 amps of bicarbonate, and 1 amp of calcium and was subsequently intubated by myself with an ET tube 8.0 cm size. A chest x-ray post intubation showed diffuse bilateral pulmonary infiltrates. He was on NS at 100 mL an hour for the past 2 days. Also, he had a venous Doppler ultrasound on 02/18/2018, which showed no evidence of a DVT; however, it showed a pseudoaneurysm at the distal brachial artery measuring 3.6 x 2.2 x 2.2 cm, predominantly thrombosed; however, there was a small patent component with biphasic flow measuring 6 x 9 mm. A single lumen right PICC line was placed by interventional radiology on 02/22/2018. The patient also had an arterial Doppler ultrasound which was within normal. He was seen by Dr. Jensen from vascular surgery. In addition, the patient has been followed by podiatry and infectious disease. ABG postcode showed acute hypercapnic respiratory acidosis with a pH of 7.11, CO2 of 83, PaO2 of 99, bicarbonate 25, saturation 92% on PRVC mode, rate of 16, tidal volume 500, PEEP of 5, 100% FiO2, and I time 0.9. 03/06 Patient is sedated with Versed and Fenantl drips Levophed started overnight on 4 mics. Afebrile. Renal function worse this morning with C: 1.93 from 1.75 s/p transfusion 2U PRBC yesterday . 03/07: Remains sedated, arousable, orally intubated on mechanical ventilation. Sputum growing ESBL Klebsiella. 03/08 Patient remains intubated and Sedated with Fentanyl drip. Had T: 101 last night.Had an episode of hypoglycemia last night given D50 and placed on D10. 03/09 Patient remains sedated and intubated. T: 100 at 4 am. 03/10 Patient is intubated, sedated T:99.9. renal function is improving with Cr: 2.08 from 2.47 03/11 Patient remains intubated and sedated with Fentanyl drip. Afebrile. Objective Vital Signs / I&O: Vital Signs 03/10/18 10:00 03/10/18 12:00 03/10/18 12:17 Temperature 99.1 F Pulse Rate 85 87 Respiratory Rate 20 20 Blood Pressure 121/87 Pulse Oximetry 99 100 03/10/18 14:00 03/10/18 14:51 03/10/18 16:00 Temperature 99.1 F Pulse Rate 84 90 Respiratory Rate 20 20 Blood Pressure 136/82 Pulse Oximetry 100 98 03/10/18 18:00 03/10/18 20:00 03/10/18 21:25 Temperature 98.9 F Pulse Rate 88 94 H Respiratory Rate 20 20 Blood Pressure 113/78 Pulse Oximetry 100 95 03/10/18 22:00 03/11/18 00:00 03/11/18 01:35 Temperature 99.0 F Pulse Rate 94 H 83 Respiratory Rate 20 20 Blood Pressure 120/72 Pulse Oximetry 100 100 03/11/18 02:00 03/11/18 03:49 03/11/18 04:00 Temperature 98.7 F Pulse Rate 85 85 Respiratory Rate 20 20 Blood Pressure 116/72 Pulse Oximetry 98 100 03/11/18 06:00 03/11/18 08:22 Temperature Pulse Rate 82 Respiratory Rate 20 Blood Pressure Pulse Oximetry 98 Intake & Output 03/10/18 03/11/18 03/11/18 18:59 06:59 18:59 Intake Total 1725 / 1725 1513 / 1513 Output Total 1200 / 1200 1150 / 1150 Balance 525 / 525 363 / 363 Intake: IV 800 / 800 1150 / 1150 D10W Inj 500 ML @ 30 mls/hr IV. 500 / 500 500 / 500 SIG .[id number] [facility] Rx#:[id number] INVanz Inj 1,000 MG In NS Inj 100 / 100 100 ML @ 100 mls/hr IV.SIG Q24H [facility] Rx#:[id number] Zyvox 600 mg Premix 300 ML @ 300 / 300 300 / 300 300 mls/hr IV.SIG Q12H [facility] Rx#: [id number] fentaNYL 10 mcg/mL Premix Drip 250 / 250 2,500 mcg In 250 ml @ 50 MCG/HR 5 mls/hr IV.SIG TITRATE PRN Rx #:[id number] Tube Feeding 325 / 325 363 / 363 Water Bolus Amount 600 / 600 Output: Urine Amount (Catheter) 1200 / 1200 1150 / 1150 Indwelling Urethral Catheter 1200 / 1200 1150 / 1150 Other: Date of Last Bowel Movement 03/10/18 03/10/18 # Bowel Movements 0 # Incontinent Bowel Movements 1 Result Diagrams: 03/11/18 04:30 03/11/18 04:30 Other Results: Laboratory Results - last 12 hr 03/11/18 03/11/18 03/11/18 00:13 03:37 04:30 WBC RBC Hgb Hct MCV MCH MCHC RDW Plt Count MPV Neut % (Auto) Lymph % (Auto) [place] % (Auto) Eos % (Auto) Baso % (Auto) Neut # (Auto) Lymph # (Auto) [place] # (Auto) Eos # (Auto) Baso # (Auto) WBC Differential Differential Comment Sodium 144 Potassium 3.4 L Chloride 110 H Carbon Dioxide 22.7 Anion Gap 11 BUN 38 H Creatinine 1.92 H Estimated GFR 46 L POC Glucose 113 H 110 Random Glucose 83 Calcium 8.1 L Phosphorus 4.0 Magnesium 2.0 Total Bilirubin 0.5 AST 81 H ALT 49 Alkaline Phosphatase 91 Total Protein 6.3 L Albumin 1.6 L 03/11/18 04:30 WBC 4.8 RBC 2.40 L Hgb 7.3 L Hct 21.6 L MCV 89.8 MCH 30.6 MCHC 34.1 RDW 16.3 Plt Count 125 L MPV 9.0 Neut % (Auto) 65.3 Lymph % (Auto) 20.3 [place] % (Auto) 10.6 H Eos % (Auto) 3.4 Baso % (Auto) 0.4 Neut # (Auto) 3.2 Lymph # (Auto) 1.0 [place] # (Auto) 0.5 Eos # (Auto) 0.2 Baso # (Auto) 0.0 WBC Differential . Differential Comment Auto diff final Sodium Potassium Chloride Carbon Dioxide Anion Gap BUN Creatinine Estimated GFR POC Glucose Random Glucose Calcium Phosphorus Magnesium Total Bilirubin AST ALT Alkaline Phosphatase Total Protein Albumin Imaging: Abdomen/Pelvis CT 02/17/18 00:00 CONCLUSION: 1. Small bilateral pleural effusions and bilateral lower lung opacity again seen. 2. Mild splenomegaly again seen. 3. Gastrostomy tube in place. 4. No evidence of bowel dilatation. 5. Heterotopic ossification about the left hip again seen. 6. Calcified adrenal glands again seen. 7. Enlarged inguinal lymph nodes again seen. Venous Doppler Study 02/18/18 00:00 CONCLUSION: 1. No DVT or SVT. 2. 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 This measures 3.6 x 2.2 x 2.2 cm and is predominantly thrombosed with a small, 6 x 9 mm patent component showing biphasic flow. Central Venous Line 02/22/18 00:00 CONCLUSION: 1. Uncomplicated tunneled central venous Power PICC line placement. 2. The PICC line can be used immediately. Foot MRI 02/22/18 00:00 CONCLUSION: 1. Findings most characteristic of early osteomyelitis at the medial aspect of the first metatarsal head and a tiny focus of probable osteomyelitis at the medial corner of the proximal phalanx great toe. Mild surrounding cellulitis. 2. Previous partial amputation fifth metatarsal. Extremity Arterial Study 02/26/18 00:00 CONCLUSION: 1. Normal ABIs bilaterally. Chest CT 03/05/18 00:00 CONCLUSION: 1. Bilateral effusions and diffuse bilateral consolidation. Acuna Line Insertion 03/05/18 00:00 CONCLUSION: 1. Uncomplicated Acuna catheter placement as above. Chest X-Ray 03/07/18 00:00 CONCLUSION: No significant change. Diffuse bilateral parenchymal consolidation and small pleural effusions similar to before. Objective Remarks: GENERAL: Patient is 47 yo intubated and sedated SKIN: Warm and dry. HEAD: Normocephalic. EYES: No scleral icterus. No injection or drainage. NECK: Supple, trachea midline. No JVD or lymphadenopathy. CARDIOVASCULAR: Regular rate and rhythm without murmurs, gallops, or rubs. RESPIRATORY: Breath sounds equal bilaterally. No accessory muscle use. GASTROINTESTINAL: Abdomen soft, non-tender, nondistended. + PEG tube MUSCULOSKELETAL: No cyanosis, or edema. Neuro: Sedated, intubated Assessment and Plan - Assessment and Plan Plan: 1. VDRF 2. S/p PEA arrest 3. Diffuse bilateral pulmonary infiltrates, ddx aspiration pneumonia and fluid overload. 4. Hypertension. 5. Acute kidney injury. 6. History CVA with left-sided hemiparesis. 7. 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 8. Bilateral foot osteomyelitis methicillin-resistant Staphylococcus aureus. Plan Neuro: on fentanyl infusion for sedation. Daily sedation vacation. on Keppra 500 mg t.i.d. for a history of seizures. Check EEG and CT brain Pulm: Continue with ventilatory support and maintain sats> 92%. On PRVC RR 20, TV 600, IT:0.9, PEEP:8, FIO2: 40% Bronchodilators, ICU vent bundle. Check CXR and ABG SBT daily as demond. s/p diagnostic US guided thoracentesis 40ml removed ( transudative fluid ) Bronch with BAL 03/06 showed secretions L>R suctioned to clear, BAL performed LLL. BAL: Kleb pneumonia ESBL, Proteus Mirabilis, MRSA CV: Monitor HR and BP and maintain MAP> 65 mmHg. Echo showed EF 60-65% : Monitor renal function, I's and O's and avoid nephrotoxins. Renal function is improving with Cr: 1.92 Continue with Free water 300ml Q6 monitor sodium level GI: On Prevacid 30 mg daily. On Nepro with goal rate 40ml/hr ID: Continue with abx ( Ertapenem, Zyvox) ID is following Follow up on Blood and urine cx from 03/05- NGTD 03/05 Sputum cx: ESBL Klebsiella BAL cx 03/06: Kleb pneumonia ESBL, Proteus Mirabilis, MRSA Wound culture growing MRSA from osteomyelitis site. Heme: Monitor CBC and coags. s/p transfusion 2u PRBC 03/05 heme occult negative Endo: SSI with Accu-Cheks for glycemic control. d/c IVF GI prophylaxis- On Prevacid DVT prophylaxis- SCD, heparin SQ held for anemia requiring blood transfusion. IV access: RUE single lumen PICC line repositioned by IR 03/05 Condition critical Time spent on critical care excluding procedures 30 minutes
[2018-03-11 08:59] LABS: ABG Base Excess -0.6 mmol/L (-2-2); ABG PCO2 28 mmHg (38-42); ABG PO2 121 mmHG (61-120)
--- NOTE | 2018-03-11 09:05 | XR ---
EXAM DATE: 03/11/2018 8:56 AM EDT AGE/SEX: 47 years / Male INDICATIONS: Shortness of breath. CLINICAL DATA: This is the patient's initial encounter. Patient reports that signs and symptoms have been present for 1 day and indicates a pain score of Nonresponsive. MEDICAL/SURGICAL HISTORY: Cerebrovascular disease. Hypertension. Diabetes. Anemia. CABG. G- tube. COMPARISON: [facility] [place] 1V SINGLE AP, 03/07/2018. . FINDINGS: Cardiomegaly and bilateral patchy consolidation is seen. A right-sided pleural effusion is noted. The re is slight improved aeration suspected. Sternotomy wires are noted. Right jugular line tip overlies the SVC. Endotracheal tube tip 3 cm above the luz maria. CONCLUSION: Slight improved aeration. Electronically signed by: Mike Tee MD 03/11/2018 9:03 AM EDT
[2018-03-11] MEDS: Ascorbic Acid 500 MG Tablet G-TUBE SCH ×2 (09:07→20:04)
[2018-03-11] MEDS: levETIRAcetam 500 MG Tablet G-TUBE SCH ×3 (09:07→18:02)
[2018-03-11] MEDS: Senna/Docusate Sodium 8.6/50 MG Tablet G-TUBE SCH ×2 (09:07→20:04)
[2018-03-11] MEDS: Potassium Chlor 10 mEq Premix 10 MEQ/100 ML PIGGYBACK IV.SIG SCH ×2 (09:35→12:28)
--- NOTE | 2018-03-11 11:20 | CT ---
EXAM DATE: 03/11/2018 11:08 AM EDT AGE/SEX: 47 years / Male INDICATIONS: Encephalopathy CLINICAL DATA: This is the patient's initial encounter. Patient reports that signs and symptoms have been present for 1 day and indicates a pain score of Nonresponsive. MEDICAL/SURGICAL HISTORY: Anemia. Diabetes mellitus type I. Hypertension. None. RADIATION DOSE: 53.39 CTDI (mGy) COMPARISON: [facility] [place], [place] BRAIN W/O CONTRAST, 12/18/2017. . TECHNIQUE: CT of the head without contrast. Using automated exposure control and adjustment of the mA and/or kV according to patient size, radiation dose was kept as low as reasonably achievable to ob tain optimal diagnostic quality images. DICOM format image data is available electronically for revi ew and comparison. FINDINGS: Calcifications of the vertebral and carotid arteries are noted. There are calcifications in the basal ganglia and right frontal parafalcine region. There is encephalomalacia in the right frontal and par ietal regions from previous infarction. There are no signs of acute infarct, hemorrhage, or mass. The re is patchy hypodensity in the periventricular white matter which is stable. There is opacification of the mastoid air cells, sphenoid sinuses and ethmoid air cells right greater than left. Right front al sinus is opacified. CONCLUSION: 1. Stable sinus disease. 2. White matter disease and remote infarcts. . Electronically signed by: Mike Tee MD 03/11/2018 11:18 AM EDT
--- NOTE | 2018-03-11 13:08 | P.DIET ---
Nutritional Evaluation Type of nutrition evaluation: follow-up Nutrition consult regarding: Tube Feeding [place] [facility] [place] Subjective Subjective Comments: Pt resides at [facility]. Has PEG for nutrition. Non-verbal. Objective - Diagnosis Anemia, Rectal Bleeding - Objective % IBW: 114 (IBW = 172#) Body Weight Used for Calculations: Actual (89.5 kg) Energy Needs - Lower Range (kCal/kg): 25 Energy Needs - Upper Range (kCal/kg): 30 Lower Limit kCal/kg (kCals): 2,238 Upper Limit kCal/kg (kCals): 2,685 Lower Limit Protein Factor (Grams per Kg): 1.0 Upper Limit Protein Factor (Grams per Kg): 1.5 Lower Protein Needs (Protein): 90 Upper Protein Needs (Protein): 134 Fluid Factor (ml/kg): 30 Estimated Fluid Needs (ml): 2,685 Dietitian Reviewed in Medical Record: Curent medications, Intake & Output, Labs , Medical history, Tube feeding, Wound/DTI Diet Order: TF'ing Wound Care Note: WOCN dated 02/18-please see note in EMR Objective Comments: PMH Includes: DM, HTN, chronic anemia, chronic pain, hemiparesis secondary to right-sided DVA, CHF, Dysphagia w/feeding tube placement, psychiatric DO, depression, hyperlipidemia Labs Include: POC GLucose 113, 110, 109, 117, Cr 1.92, K+ 3.4 Meds include Vit C, Lipitor, Coreg, Keppra, Lisinopril, Prevacid, Lexapro, Novolog, Levemir +1BM Assessment Assessment: Pt continues at high nutrition risk r/t his dependence on TF'ing to meet nutritional needs. Pt remains intubated and sedated on fentanyl. Noted nephrology consult 03/08, TF change to Nepro 03/09. TF is currently running at 30ml /hr. To meet pt's assessed needs, a goal rate of 55ml/hr is necessary to provide 2376kcals, 107gms protein and 960mls free water. Labs, notes reviewed. Wt changes noted. Dietitian following. Recommendations: TF Nepro with goal rate 55ml/hr to meet pt's nutritional needs. Dietitian to Monitor: Lab values, Renal labs, Glucose level, Intake & Output, Tube feeding tolerance, Weight change, Wound/skin status (Initiation of TF), Medical course
--- NOTE | 2018-03-11 17:14 | P.PNPL ---
Subjective Interval history: 47 YO AA male with CVA,DM, Bilat infilt, pl eff On Vent, fi02 45% Off sedation Does't open eyes Did't tolerate CPAP CT Brain NAD Physical Exam Vital signs: Vital Signs 03/10/18 18:00 03/10/18 20:00 03/10/18 21:25 Temperature 98.9 F Pulse Rate 88 94 H Respiratory Rate 20 20 Blood Pressure 113/78 Pulse Oximetry 100 95 03/10/18 22:00 03/11/18 00:00 03/11/18 01:35 Temperature 99.0 F Pulse Rate 94 H 83 Respiratory Rate 20 20 Blood Pressure 120/72 Pulse Oximetry 100 100 03/11/18 02:00 03/11/18 03:49 03/11/18 04:00 Temperature 98.7 F Pulse Rate 85 85 Respiratory Rate 20 20 Blood Pressure 116/72 Pulse Oximetry 98 100 03/11/18 06:00 03/11/18 08:00 03/11/18 08:22 Temperature 98.9 F Pulse Rate 82 86 Respiratory Rate 20 20 Blood Pressure 128/77 Pulse Oximetry 98 03/11/18 10:00 03/11/18 11:28 03/11/18 12:00 Temperature 98.5 F Pulse Rate 88 84 Respiratory Rate 15 Blood Pressure 102/57 L Pulse Oximetry 100 03/11/18 12:48 03/11/18 14:00 03/11/18 16:00 Temperature 98.9 F Pulse Rate 86 84 Respiratory Rate 15 15 Blood Pressure 106/65 Pulse Oximetry 95 03/11/18 16:33 Temperature Pulse Rate Respiratory Rate 15 Blood Pressure Pulse Oximetry 96 Intake & Output 03/10/18 03/11/18 03/11/18 18:59 06:59 18:59 Intake Total 1725 / 1725 1513 / 1513 890 / 890 Output Total 1200 / 1200 1150 / 1150 Balance 525 / 525 363 / 363 890 / 890 Intake: IV 800 / 800 1150 / 1150 890 / 890 D10W Inj 500 ML @ 30 mls/hr IV. 500 / 500 500 / 500 140 / 140 SIG .[id number] [facility] Rx#:[id number] INVanz Inj 1,000 MG In NS Inj 100 / 100 100 ML @ 100 mls/hr IV.SIG Q24H [facility] Rx#:[id number] Zyvox 600 mg Premix 300 ML @ 300 / 300 300 / 300 300 / 300 300 mls/hr IV.SIG Q12H [facility] Rx#: [id number] KCl 10 mEq Premix Inj 10 meq In 200 / 200 100 ml @ 100 mls/hr IV.SIG Q1H [facility] Rx#:[id number] fentaNYL 10 mcg/mL Premix Drip 250 / 250 250 / 250 2,500 mcg In 250 ml @ 50 MCG/HR 5 mls/hr IV.SIG TITRATE PRN Rx #:[id number] Tube Feeding 325 / 325 363 / 363 Water Bolus Amount 600 / 600 Output: Urine Amount (Catheter) 1200 / 1200 1150 / 1150 Indwelling Urethral Catheter 1200 / 1200 1150 / 1150 Other: Date of Last Bowel Movement 03/10/18 03/10/18 03/11/18 # Bowel Movements 0 # Incontinent Bowel Movements 1 GENERAL: WBW N, On Vent SKIN: Warm and dry. HEAD: Normocephalic. EYES: No scleral icterus. No injection or drainage. NECK: Supple, trachea midline. No JVD or lymphadenopathy. CARDIOVASCULAR: Regular rate and rhythm without murmurs, gallops, or rubs. RESPIRATORY: Breath sounds equal bilaterally. No accessory muscle use. GASTROINTESTINAL: Abdomen soft, non-tender, nondistended. MUSCULOSKELETAL: No cyanosis, or edema. BACK: Nontender without obvious deformity. No CVA tenderness. - Urinary Catheter Management Indwelling Urethral Catheter Cath placed during this visit: yes Reason for continuing: Acute urinary retention Insertion date: 03/05/18 Insertion time: 08:00 Assessment and Plan - Plan IMPRESSION: 1. Bilateral lung infiltrates. 2. Small pleural effusion. 3. Osteomyelitis of both feet. 4. Diabetes mellitus. 5. Cerebrovascular accident with left-sided contracture. 6. VDRF 7. S/P cardiopulm arrest. PLAN: Vent Support Cont Abx Aerosol nebs monitor Pl eff Monitor renal functions.
--- NOTE | 2018-03-11 19:55 | P.PNNP ---
Subjective Interval history: Subjective This 47-year-old -[place] male with prior history of CVA with hemiparesis, hypertension, diabetes, anemia of chronic disease, CHF, dysphagia, status post PEG tube placement, depression with history of bilateral foot osteomyelitis sustained acute kidney injury patient is currently nonoliguric, normokalemic with creatinine declining to 1.92, hyponatremia has been corrected Physical Exam Vital signs: Vital Signs 03/10/18 20:00 03/10/18 21:25 03/10/18 22:00 Temperature 98.9 F Pulse Rate 94 H 94 H Respiratory Rate 20 20 Blood Pressure 113/78 Pulse Oximetry 100 95 03/11/18 00:00 03/11/18 01:35 03/11/18 02:00 Temperature 99.0 F Pulse Rate 83 85 Respiratory Rate 20 20 Blood Pressure 120/72 Pulse Oximetry 100 100 03/11/18 03:49 03/11/18 04:00 03/11/18 06:00 Temperature 98.7 F Pulse Rate 85 82 Respiratory Rate 20 20 Blood Pressure 116/72 Pulse Oximetry 98 100 03/11/18 08:00 03/11/18 08:22 03/11/18 10:00 Temperature 98.9 F Pulse Rate 86 88 Respiratory Rate 20 20 Blood Pressure 128/77 Pulse Oximetry 98 03/11/18 11:28 03/11/18 12:00 03/11/18 12:48 Temperature 98.5 F Pulse Rate 84 Respiratory Rate 15 15 Blood Pressure 102/57 L Pulse Oximetry 100 95 03/11/18 14:00 03/11/18 16:00 03/11/18 16:33 Temperature 98.9 F Pulse Rate 86 84 Respiratory Rate 15 15 Blood Pressure 106/65 Pulse Oximetry 96 03/11/18 18:00 Temperature Pulse Rate 84 Respiratory Rate Blood Pressure Pulse Oximetry Intake & Output 03/11/18 03/11/18 03/12/18 06:59 18:59 06:59 Intake Total 1513 / 1513 1832 / 1832 Output Total 1150 / 1150 1400 / 1400 Balance 363 / 363 432 / 432 Intake: IV 1150 / 1150 915 / 915 D10W Inj 500 ML @ 30 mls/hr IV. 500 / 500 140 / 140 SIG .[id number] [facility] Rx#:[id number] INVanz Inj 1,000 MG In NS Inj 100 / 100 100 ML @ 100 mls/hr IV.SIG Q24H [facility] Rx#:[id number] Zyvox 600 mg Premix 300 ML @ 300 / 300 300 / 300 300 mls/hr IV.SIG Q12H [facility] Rx#: [id number] KCl 10 mEq Premix Inj 10 meq In 200 / 200 100 ml @ 100 mls/hr IV.SIG Q1H [facility] Rx#:[id number] fentaNYL 10 mcg/mL Premix Drip 250 / 250 275 / 275 2,500 mcg In 250 ml @ 50 MCG/HR 5 mls/hr IV.SIG TITRATE [facility]N Rx #:[id number] Tube Feeding 363 / 363 317 / 317 Water Bolus Amount 600 / 600 Output: Urine Amount (Catheter) 1150 / 1150 1400 / 1400 Indwelling Urethral Catheter 1150 / 1150 1400 / 1400 Other: Date of Last Bowel Movement 03/10/18 03/11/18 # Bowel Movements 0 1 Narrative: Examination : GENERAL APPEARANCE: intubated without sedation HEENT:: normocephalic, atraumatic NECK :no cervical lymphadenopathy. ORAL CAVITY: mucosa moist. CHEST:normal SKIN: no suspicious lesions. HEART: no murmurs. LUNGS: clear to auscultation bilaterally. BREASTS: not examined. ABDOMEN: soft, nontender. BACK: No paraspinal muscle spasm. MALE GENITOURINARY: not examined. MUSCULOSKELETAL: normal. EXTREMITIES: Absent edema FOOT EXAM : PERIPHERAL PULSES: normal. NEUROLOGIC: Nonresponsive. PSYCH: #: Unable, due to patient's mental capacity - Urinary Catheter Management Indwelling Urethral Catheter Cath placed during this visit: yes Reason for continuing: Acute urinary retention Insertion date: 03/05/18 Insertion time: 08:00 Assessment and Plan - Assessment (1) Acute kidney injury Code(s): N17.9 - Acute kidney failure, unspecified Status: Acute Plan: Acute kidney injury with a creatinine of 2.76 -> 2.47 -> 2.0 Initial worsening since the , now improving. With further improvement of creatinine and a nonoliguric state Acute kidney injury possible related to vancomycin toxicity last dose on the 24 Creatinine noted to be 1.07 on 02/26. CT of pelvis on admission with kidney of normal in size and shape and no evidence of mass or hydronephrosis. Good UOP with 1.9L UOP over last 24 hours Plan Suspect vanco toxicity Avoid nephrotoxins including IV contrast, NSAIDS,and aminoglycosides. Maintain strict I+o, maintain indwelling Dudley catheter Continue to monitor urinary output and BMP. Creatinine slightly better with good UOP. Negative urine eosinphilis, complements. Serologies and SPEP pending. (2) Anemia of chronic disorder Code(s): D63.8 - Anemia in other chronic diseases classified elsewhere Status : Acute Plan: HGB stable at 7.8 (3) Hypernatremia Code(s): E87.0 - Hyperosmolality and hypernatremia Status: Acute Plan: Sodium level is improving at 145, continue free water 300ml every 6 hours.
[2018-03-12] MEDS: Insulin NovoLIN Regular Correctional Sugar Inj SQ SCH ×7 (00:38→23:55)
[2018-03-12 05:14] LABS: Baso % (Auto) 0.2 % (0.0-2.0); Eos # (Auto) 0.2 th/mm3 (0.0-0.4); Eos % (Auto) 3.9 % (0.0-4.0); Hematocrit 22.6 % (39.0-51.0); Hemoglobin 7.4 gm/dL (13.0-17.0); Lymph # (Auto) 0.8 th/mm3 (1.0-4.8); Mean Corpuscular HGB Conc 32.8 % (32.0-36.0); Mean Corpuscular Hemoglobin 29.9 pg (27.0-34.0); Mean Corpuscular Volume 91.1 fL (80.0-100.0); Mean Platelet Volume 8.7 fL (7.0-11.0); Mono # (Auto) 0.4 th/mm3 (0.0-0.9); Mono % (Auto) 8.7 % (0.0-8.0); Neut # (Auto) 3.2 th/mm3 (1.8-7.7); Neut % (Auto) 70.2 % (16.0-70.0); Platelet Count 121 th/mm3 (150-450); Red Blood Count 2.48 mil/mm3 (4.50-5.90); Red Cell Distribution Width 15.9 % (11.6-17.2); White Blood Count 4.6 th/mm3 (4.0-11.0)
[2018-03-12 05:19] LABS: Albumin 1.6 g/dL (3.4-5.0); Anion Gap 9 meq/L (5-15); Aspartate Aminotransferase 67 U/L (15-37); Blood Urea Nitrogen 34 mg/dL (7-18); Calcium 8.2 mg/dL (8.5-10.1); Carbon Dioxide 24.9 meq/L (21.0-32.0); Chloride 110 meq/L (98-107); Glomerular Filtration Rate 54 mL/min (>89); Glucose,Random 89 mg/dL (74-106); Magnesium 2.1 mg/dL (1.5-2.5); Potassium 3.8 meq/L (3.5-5.1); Sodium 144 meq/L (136-145)
[2018-03-12 05:24] LABS: Alanine Aminotransferase 47 U/L (12-78); Alkaline Phosphatase 188 U/L (45-117); Phosphorus 5.1 mg/dL (2.5-4.9); Total Protein 6.4 g/dL (6.4-8.2)
--- NOTE | 2018-03-12 07:00 | P.PNCC ---
Subjective Subjective Remarks/Hospital Course: The patient is a 47-year-old male with a past medical history of a CVA with left -sided hemiparesis, hypertension, diabetes mellitus, anemia of chronic disease, CHF, dysphagia, status post PEG tube placement, depression, nonverbal, who was admitted under the hospitalist service on 02/17/2018 for acute on chronic anemia. In addition, the patient has a history of bilateral foot osteomyelitis. During his hospital course, he had worsening renal function with a creatinine of 1.74 this morning from 1.1 on admission. In addition, the patient was found hypernatremic with a sodium level of 156 and hyperkalemic with a potassium level 5.3. A halicat was called 2 days ago for shortness of breath, and this morning the patient had a PEA arrest. ACLS protocol was initiated and the patient received epinephrine x3, 2 amps of bicarbonate, and 1 amp of calcium and was subsequently intubated by myself with an ET tube 8.0 cm size. A chest x-ray post intubation showed diffuse bilateral pulmonary infiltrates. He was on NS at 100 mL an hour for the past 2 days. Also, he had a venous Doppler ultrasound on 02/18/2018, which showed no evidence of a DVT; however, it showed a pseudoaneurysm at the distal brachial artery measuring 3.6 x 2.2 x 2.2 cm, predominantly thrombosed; however, there was a small patent component with biphasic flow measuring 6 x 9 mm. A single lumen right PICC line was placed by interventional radiology on 02/22/2018. The patient also had an arterial Doppler ultrasound which was within normal. He was seen by Dr. Jensen from vascular surgery. In addition, the patient has been followed by podiatry and infectious disease. ABG postcode showed acute hypercapnic respiratory acidosis with a pH of 7.11, CO2 of 83, PaO2 of 99, bicarbonate 25, saturation 92% on PRVC mode, rate of 16, tidal volume 500, PEEP of 5, 100% FiO2, and I time 0.9. 03/06 Patient is sedated with Versed and Fenantl drips Levophed started overnight on 4 mics. Afebrile. Renal function worse this morning with C: 1.93 from 1.75 s/p transfusion 2U PRBC yesterday . 03/07: Remains sedated, arousable, orally intubated on mechanical ventilation. Sputum growing ESBL Klebsiella. 03/08 Patient remains intubated and Sedated with Fentanyl drip. Had T: 101 last night.Had an episode of hypoglycemia last night given D50 and placed on D10. 03/09 Patient remains sedated and intubated. T: 100 at 4 am. 03/10 Patient is intubated, sedated T:99.9. renal function is improving with Cr: 2.08 from 2.47 03/11 Patient remains intubated and sedated with Fentanyl drip. Afebrile. 03/12 Patient is off sedation intubated does not follow commands, afebrile. CT brain yesterday no acute findings. Objective Vital Signs / I&O: Vital Signs 03/11/18 08:00 03/11/18 08:22 03/11/18 10:00 Temperature 98.9 F Pulse Rate 86 88 Respiratory Rate 20 20 Blood Pressure 128/77 Pulse Oximetry 98 03/11/18 11:28 03/11/18 12:00 03/11/18 12:48 Temperature 98.5 F Pulse Rate 84 Respiratory Rate 15 15 Blood Pressure 102/57 L Pulse Oximetry 100 95 03/11/18 14:00 03/11/18 16:00 03/11/18 16:33 Temperature 98.9 F Pulse Rate 86 84 Respiratory Rate 15 15 Blood Pressure 106/65 Pulse Oximetry 96 03/11/18 18:00 03/11/18 19:50 03/11/18 20:00 Temperature 98.7 F Pulse Rate 84 86 Respiratory Rate 15 15 Blood Pressure 123/70 Pulse Oximetry 97 03/11/18 22:00 03/11/18 23:57 03/12/18 00:00 Temperature 98.9 F Pulse Rate 85 91 H Respiratory Rate 15 15 Blood Pressure 108/61 Pulse Oximetry 96 03/12/18 02:00 03/12/18 04:00 03/12/18 04:16 Temperature 99.0 F Pulse Rate 84 85 Respiratory Rate 15 15 Blood Pressure 117/74 Pulse Oximetry 96 03/12/18 06:00 Temperature Pulse Rate 86 Respiratory Rate Blood Pressure Pulse Oximetry Intake & Output 03/11/18 03/11/18 03/12/18 06:59 18:59 06:59 Intake Total 1513 / 1513 1832 / 1832 723 / 723 Output Total 1150 / 1150 1400 / 1400 1050 / 1050 Balance 363 / 363 432 / 432 -327 / -327 Weight 95 kg Intake: IV 1150 / 1150 915 / 915 400 / 400 D10W Inj 500 ML @ 30 mls/hr IV. 500 / 500 140 / 140 SIG .[id number] KRISTIE Rx#:[id number] INVanz Inj 1,000 MG In NS Inj 100 / 100 100 / 100 100 ML @ 100 mls/hr IV.SIG Q24H KRISTIE Rx#:[id number] Zyvox 600 mg Premix 300 ML @ 300 / 300 300 / 300 300 / 300 300 mls/hr IV.SIG Q12H KRISTIE Rx#: [id number] KCl 10 mEq Premix Inj 10 meq In 200 / 200 100 ml @ 100 mls/hr IV.SIG Q1H KRISTIE Rx#:[id number] fentaNYL 10 mcg/mL Premix Drip 250 / 250 275 / 275 2,500 mcg In 250 ml @ 50 MCG/HR 5 mls/hr IV.SIG TITRATE PRN Rx #:[id number] Tube Feeding 363 / 363 317 / 317 323 / 323 Water Bolus Amount 600 / 600 Output: Urine Amount (Catheter) 1150 / 1150 1400 / 1400 1050 / 1050 Indwelling Urethral Catheter 1150 / 1150 1400 / 1400 1050 / 1050 Other: Date of Last Bowel Movement 03/10/18 03/11/18 03/12/18 # Bowel Movements 0 1 3 Result Diagrams: 03/12/18 04:15 03/12/18 04:15 Other Results: Laboratory Results - last 12 hr 03/11/18 03/12/18 03/12/18 19:52 00:29 03:33 WBC RBC Hgb Hct MCV MCH MCHC RDW Plt Count MPV Neut % (Auto) Lymph % (Auto) [place] % (Auto) Eos % (Auto) Baso % (Auto) Neut # (Auto) Lymph # (Auto) [place] # (Auto) Eos # (Auto) Baso # (Auto) WBC Differential Differential Comment Sodium Potassium Chloride Carbon Dioxide Anion Gap BUN Creatinine Estimated GFR POC Glucose 105 113 H 103 Random Glucose Calcium Phosphorus Magnesium Total Bilirubin AST ALT Alkaline Phosphatase Total Protein Albumin 03/12/18 03/12/18 04:15 04:15 WBC 4.6 RBC 2.48 L Hgb 7.4 L Hct 22.6 L MCV 91.1 MCH 29.9 MCHC 32.8 RDW 15.9 Plt Count 121 L MPV 8.7 Neut % (Auto) 70.2 H Lymph % (Auto) 17.0 [place] % (Auto) 8.7 H Eos % (Auto) 3.9 Baso % (Auto) 0.2 Neut # (Auto) 3.2 Lymph # (Auto) 0.8 L [place] # (Auto) 0.4 Eos # (Auto) 0.2 Baso # (Auto) 0.0 WBC Differential . Differential Comment Auto diff final Sodium 144 Potassium 3.8 Chloride 110 H Carbon Dioxide 24.9 Anion Gap 9 BUN 34 H Creatinine 1.65 H Estimated GFR 54 L POC Glucose Random Glucose 89 Calcium 8.2 L Phosphorus 5.1 H D Magnesium 2.1 Total Bilirubin 0.3 AST 67 H ALT 47 Alkaline Phosphatase 188 H Total Protein 6.4 Albumin 1.6 L Imaging: Abdomen/Pelvis CT 02/17/18 00:00 CONCLUSION: 1. Small bilateral pleural effusions and bilateral lower lung opacity again seen. 2. Mild splenomegaly again seen. 3. Gastrostomy tube in place. 4. No evidence of bowel dilatation. 5. Heterotopic ossification about the left hip again seen. 6. Calcified adrenal glands again seen. 7. Enlarged inguinal lymph nodes again seen. Venous Doppler Study 02/18/18 00:00 CONCLUSION: 1. No DVT or SVT. 2. 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 This measures 3.6 x 2.2 x 2.2 cm and is predominantly thrombosed with a small, 6 x 9 mm patent component showing biphasic flow. Central Venous Line 02/22/18 00:00 CONCLUSION: 1. Uncomplicated tunneled central venous Power PICC line placement. 2. The PICC line can be used immediately. Foot MRI 02/22/18 00:00 CONCLUSION: 1. Findings most characteristic of early osteomyelitis at the medial aspect of the first metatarsal head and a tiny focus of probable osteomyelitis at the medial corner of the proximal phalanx great toe. Mild surrounding cellulitis. 2. Previous partial amputation fifth metatarsal. Extremity Arterial Study 02/26/18 00:00 CONCLUSION: 1. Normal ABIs bilaterally. Chest CT 03/05/18 00:00 CONCLUSION: 1. Bilateral effusions and diffuse bilateral consolidation. Acuna Line Insertion 03/05/18 00:00 CONCLUSION: 1. Uncomplicated Acuna catheter placement as above. Head CT 03/11/18 08:30 CONCLUSION: 1. Stable sinus disease. 2. White matter disease and remote infarcts. . Chest X-Ray 03/11/18 08:31 CONCLUSION: Slight improved aeration. Objective Remarks: GENERAL: Patient is 47 yo intubated and sedated SKIN: Warm and dry. HEAD: Normocephalic. EYES: No scleral icterus. No injection or drainage. NECK: Supple, trachea midline. No JVD or lymphadenopathy. CARDIOVASCULAR: Regular rate and rhythm without murmurs, gallops, or rubs. RESPIRATORY: Breath sounds equal bilaterally. No accessory muscle use. GASTROINTESTINAL: Abdomen soft, non-tender, nondistended. + PEG tube MUSCULOSKELETAL: No cyanosis, or edema. Neuro: Sedated, intubated Assessment and Plan - Assessment and Plan Plan: 1. VDRF 2. S/p PEA arrest 3. Diffuse bilateral pulmonary infiltrates, ddx aspiration pneumonia and fluid overload. 4. Hypertension. 5. Acute kidney injury. 6. History CVA with left-sided hemiparesis. 7. 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 8. Bilateral foot osteomyelitis methicillin-resistant Staphylococcus aureus. Plan Neuro: off sedation monitor neuro status on Keppra 500 mg t.i.d. for a history of seizures. CT brain 03/11: No acute findings. For EEG today Pulm: Continue with ventilatory support and maintain sats> 92%. On PRVC RR 15, TV 550, IT:0.9, PEEP:8, FIO2: 40% Bronchodilators, ICU vent bundle. Check CXR and ABG SBT daily as demond. s/p diagnostic US guided thoracentesis 40ml removed ( transudative fluid ) Bronch with BAL 03/06 showed secretions L>R suctioned to clear, BAL performed LLL. BAL: Kleb pneumonia ESBL, Proteus Mirabilis, MRSA CV: Monitor HR and BP and maintain MAP> 65 mmHg. Echo showed EF 60-65% : Monitor renal function, I's and O's and avoid nephrotoxins. Renal function is improving with Cr: 1.65 today from 1.92 Continue with Free water 300ml Q6 monitor sodium level Diurese with Lasix 40mg x1 GI: On Prevacid 30 mg daily. On Nepro with goal rate 40ml/hr ID: Continue with abx ( Ertapenem, Zyvox) ID is following Follow up on Blood and urine cx from 03/05- NGTD 03/05 Sputum cx: ESBL Klebsiella BAL cx 03/06: Kleb pneumonia ESBL, Proteus Mirabilis, MRSA Wound culture growing MRSA from osteomyelitis site. Heme: Monitor CBC and coags. s/p transfusion 2u PRBC 03/05 heme occult negative Endo: SSI with Accu-Cheks for glycemic control. GI prophylaxis- On Prevacid DVT prophylaxis- SCD, heparin SQ held for anemia requiring blood transfusion. IV access: RUE single lumen PICC line repositioned by IR 03/05 Condition critical Time spent on critical care excluding procedures 30 minutes
[2018-03-12] MEDS: levETIRAcetam 500 MG Tablet G-TUBE SCH ×3 (08:06→18:06)
[2018-03-12] MEDS: Ascorbic Acid 500 MG Tablet G-TUBE SCH ×2 (08:06→20:38)
[2018-03-12] MEDS: Senna/Docusate Sodium 8.6/50 MG Tablet G-TUBE SCH ×2 (08:06→20:37)
--- NOTE | 2018-03-12 10:25 | P.PNNP ---
Subjective Interval history: Remains intubated. Creatinine is improving at 1.65 today and non oliguric. <Amparo Arriaga - Last Filed: 03/12/18 10:11> Physical Exam Vital signs: Vital Signs 03/11/18 11:28 03/11/18 12:00 03/11/18 12:48 Temperature 98.5 F Pulse Rate 84 Respiratory Rate 15 15 Blood Pressure 102/57 L Pulse Oximetry 100 95 03/11/18 14:00 03/11/18 16:00 03/11/18 16:33 Temperature 98.9 F Pulse Rate 86 84 Respiratory Rate 15 15 Blood Pressure 106/65 Pulse Oximetry 96 03/11/18 18:00 03/11/18 19:50 03/11/18 20:00 Temperature 98.7 F Pulse Rate 84 86 Respiratory Rate 15 15 Blood Pressure 123/70 Pulse Oximetry 97 03/11/18 22:00 03/11/18 23:57 03/12/18 00:00 Temperature 98.9 F Pulse Rate 85 91 H Respiratory Rate 15 15 Blood Pressure 108/61 Pulse Oximetry 96 03/12/18 02:00 03/12/18 04:00 03/12/18 04:16 Temperature 99.0 F Pulse Rate 84 85 Respiratory Rate 15 15 Blood Pressure 117/74 Pulse Oximetry 96 03/12/18 06:00 03/12/18 08:00 03/12/18 09:16 Temperature 98.8 F Pulse Rate 86 85 92 H Respiratory Rate 15 15 Blood Pressure 109/69 Pulse Oximetry 100 Intake & Output 03/11/18 03/12/18 03/12/18 18:59 06:59 18:59 Intake Total 1832 / 1832 723 / 723 Output Total 1400 / 1400 1050 / 1050 Balance 432 / 432 -327 / -327 Weight 95 kg Intake: IV 915 / 915 400 / 400 D10W Inj 500 ML @ 30 mls/hr IV. 140 / 140 SIG .[id number] K[facility]ST[facility] Rx#:[id number] INVanz Inj 1,000 MG In NS Inj 100 / 100 100 ML @ 100 mls/hr IV.SIG Q24H KRISTIE Rx#:[id number] Zyvox 600 mg Premix 300 ML @ 300 / 300 300 / 300 300 mls/hr IV.SIG Q12H KRISTIE Rx#: [id number] KCl 10 mEq Premix Inj 10 meq In 200 / 200 100 ml @ 100 mls/hr IV.SIG Q1H KRISTIE Rx#:[id number] fentaNYL 10 mcg/mL Premix Drip 275 / 275 2,500 mcg In 250 ml @ 50 MCG/HR 5 mls/hr IV.SIG TITRATE PRN Rx #:[id number] Tube Feeding 317 / 317 323 / 323 Water Bolus Amount 600 / 600 Output: Urine Amount (Catheter) 1400 / 1400 1050 / 1050 Indwelling Urethral Catheter 1400 / 1400 1050 / 1050 Other: Date of Last Bowel Movement 03/11/18 03/12/18 03/12/18 # Bowel Movements 1 3 Narrative: GENERAL: Orally intubated on no sedation SKIN: Warm and dry. HEAD: Normocephalic. EYES: No scleral icterus. No injection or drainage. NECK: Supple, trachea midline. No JVD or lymphadenopathy. CARDIOVASCULAR: Regular rate and rhythm without murmurs, gallops, or rubs. RESPIRATORY: Breath sounds equal bilaterally. No accessory muscle use. GASTROINTESTINAL: Abdomen soft, non-tender, nondistended. + PEG tube MUSCULOSKELETAL: No cyanosis, or edema. - Urinary Catheter Management Indwelling Urethral Catheter Cath placed during this visit: yes Reason for continuing: Acute urinary retention Insertion date: 03/05/18 Insertion time: 08:00 <Amparo Arriaga - Last Filed: 03/12/18 10:11> Vital signs: Vital Signs 03/11/18 14:00 03/11/18 16:00 03/11/18 16:33 Temperature 98.9 F Pulse Rate 86 84 Respiratory Rate 15 15 Blood Pressure 106/65 Pulse Oximetry 96 03/11/18 18:00 03/11/18 19:50 03/11/18 20:00 Temperature 98.7 F Pulse Rate 84 86 Respiratory Rate 15 15 Blood Pressure 123/70 Pulse Oximetry 97 03/11/18 22:00 03/11/18 23:57 03/12/18 00:00 Temperature 98.9 F Pulse Rate 85 91 H Respiratory Rate 15 15 Blood Pressure 108/61 Pulse Oximetry 96 03/12/18 02:00 03/12/18 04:00 03/12/18 04:16 Temperature 99.0 F Pulse Rate 84 85 Respiratory Rate 15 15 Blood Pressure 117/74 Pulse Oximetry 96 03/12/18 06:00 09/04/18 08:00 03/12/18 09:16 Temperature 98.8 F Pulse Rate 86 85 92 H Respiratory Rate 15 15 Blood Pressure 109/69 Pulse Oximetry 100 03/12/18 10:00 03/12/18 12:00 03/12/18 12:03 Temperature 98.5 F Pulse Rate 88 89 Respiratory Rate 15 15 Blood Pressure 115/65 Pulse Oximetry 100 Intake & Output 03/11/18 03/12/18 03/12/18 18:59 06:59 18:59 Intake Total 1832 / 1832 723 / 723 1175 / 1175 Output Total 1400 / 1400 1050 / 1050 Balance 432 / 432 -327 / -327 1175 / 1175 Weight 95 kg Intake: IV 915 / 915 400 / 400 1175 / 1175 D10W Inj 500 ML @ 30 mls/hr IV. 140 / 140 SIG .[id number] KRISTIE Rx#:[id number] INVanz Inj 1,000 MG In NS Inj 100 / 100 100 ML @ 100 mls/hr IV.SIG Q24H KRISTIE Rx#:[id number] LR 1000 mL Inj 1,000 ML @ 50 875 / 875 mls/hr IV.SIG .Q20H KRISTIE Rx#: [id number] Zyvox 600 mg Premix 300 ML @ 300 / 300 300 / 300 300 / 300 300 mls/hr IV.SIG Q12H KRISTIE Rx#: [id number] KCl 10 mEq Premix Inj 10 meq In 200 / 200 100 ml @ 100 mls/hr IV.SIG Q1H KRISTIE Rx#:[id number] fentaNYL 10 mcg/mL Premix Drip 275 / 275 2,500 mcg In 250 ml @ 50 MCG/HR 5 mls/hr IV.SIG TITRATE PRN Rx #:[id number] Tube Feeding 317 / 317 323 / 323 Water Bolus Amount 600 / 600 Output: Urine Amount (Catheter) 1400 / 1400 1050 / 1050 Indwelling Urethral Catheter 1400 / 1400 1050 / 1050 Other: Date of Last Bowel Movement 03/11/18 03/12/18 03/12/18 # Bowel Movements 1 3 - Urinary Catheter Management Indwelling Urethral Catheter Cath placed during this visit: no <Juan Gregg - Last Filed: 03/12/18 13:56> Assessment and Plan - Assessment (1) Acute kidney injury Code(s): N17.9 - Acute kidney failure, unspecified Status: Acute Plan: Acute kidney injury with a creatinine of 2.76 on day of consult with worsening since the . Acute kidney injury possible related to vancomycin toxicity last dose on the Baseline Creatinine noted to be 1.07 on 02/26. CT of pelvis on admission with kidney of normal in size and shape and no evidence of mass or hydronephrosis. Complements normal and serology pending SPEP pending Creatinine is improving at 1.65 from 1.92 with good urinary output. Plan Avoid nephrotoxins including IV contrast, NSAIDS,and aminoglycosides. Maintain strict I+o, maintain indwelling Dudley catheter Continue to monitor urinary output and BMP. Creatinine slightly better with good UOP. Will discontinue LR/ tolerating tube feeding and free water (2) Anemia of chronic disorder Code(s): D63.8 - Anemia in other chronic diseases classified elsewhere Status : Acute Plan: HGB stable at 7.4 Iron profile ordered (3) Hypernatremia Code(s): E87.0 - Hyperosmolality and hypernatremia Status: Acute Plan: Sodium level stable at 144, continue free water 300ml every 6 hours. <Amparo Arriaga - Last Filed: 03/12/18 10:11> - Assessment (1) Acute kidney injury Code(s): N17.9 - Acute kidney failure, unspecified Status: Acute (2) Anemia of chronic disorder Code(s): D63.8 - Anemia in other chronic diseases classified elsewhere Status : Acute (3) Hypernatremia Code(s): E87.0 - Hyperosmolality and hypernatremia Status: Acute - Attending Attestation Patient seen and examined; records reviewed; agree with the plan and recommendations of the IMPLEMENTATION SERVICES ANALYST <Juan Gregg - Last Filed: 03/12/18 13:56>
--- NOTE | 2018-03-12 11:13 | P.PNPL ---
Subjective Interval history: On Vent, fi02 45% Off sedation CT Brain NAD Minimal response Briefly tolerated CPAP Physical Exam Vital signs: Vital Signs 03/11/18 11:28 03/11/18 12:00 03/11/18 12:48 Temperature 98.5 F Pulse Rate 84 Respiratory Rate 15 15 Blood Pressure 102/57 L Pulse Oximetry 100 95 03/11/18 14:00 03/11/18 16:00 03/11/18 16:33 Temperature 98.9 F Pulse Rate 86 84 Respiratory Rate 15 15 Blood Pressure 106/65 Pulse Oximetry 96 03/11/18 18:00 03/11/18 19:50 03/11/18 20:00 Temperature 98.7 F Pulse Rate 84 86 Respiratory Rate 15 15 Blood Pressure 123/70 Pulse Oximetry 97 03/11/18 22:00 03/11/18 23:57 03/12/18 00:00 Temperature 98.9 F Pulse Rate 85 91 H Respiratory Rate 15 15 Blood Pressure 108/61 Pulse Oximetry 96 03/12/18 02:00 03/12/18 04:00 03/12/18 04:16 Temperature 99.0 F Pulse Rate 84 85 Respiratory Rate 15 15 Blood Pressure 117/74 Pulse Oximetry 96 03/12/18 06:00 03/12/18 08:00 03/12/18 09:16 Temperature 98.8 F Pulse Rate 86 85 92 H Respiratory Rate 15 15 Blood Pressure 109/69 Pulse Oximetry 100 03/12/18 10:00 Temperature Pulse Rate 88 Respiratory Rate Blood Pressure Pulse Oximetry Intake & Output 03/11/18 03/12/18 03/12/18 18:59 06:59 18:59 Intake Total 1832 / 1832 723 / 723 1175 / 1175 Output Total 1400 / 1400 1050 / 1050 Balance 432 / 432 -327 / -327 1175 / 1175 Weight 95 kg Intake: IV 915 / 915 400 / 400 1175 / 1175 D10W Inj 500 ML @ 30 mls/hr IV. 140 / 140 SIG .[id number] KRISTIE Rx#:[id number] INVanz Inj 1,000 MG In NS Inj 100 / 100 100 ML @ 100 mls/hr IV.SIG Q24H KRISTIE Rx#:[id number] LR 1000 mL Inj 1,000 ML @ 50 875 / 875 mls/hr IV.SIG .Q20H KRISTIE Rx#: [id number] Zyvox 600 mg Premix 300 ML @ 300 / 300 300 / 300 300 / 300 300 mls/hr IV.SIG Q12H KRISTIE Rx#: [id number] KCl 10 mEq Premix Inj 10 meq In 200 / 200 100 ml @ 100 mls/hr IV.SIG Q1H KRISTIE Rx#:[id number] fentaNYL 10 mcg/mL Premix Drip 275 / 275 2,500 mcg In 250 ml @ 50 MCG/HR 5 mls/hr IV.SIG TITRATE PRN Rx #:[id number] Tube Feeding 317 / 317 323 / 323 Water Bolus Amount 600 / 600 Output: Urine Amount (Catheter) 1400 / 1400 1050 / 1050 Indwelling Urethral Catheter 1400 / 1400 1050 / 1050 Other: Date of Last Bowel Movement 03/11/18 03/12/18 03/12/18 # Bowel Movements 1 3 GENERAL: WBWN, on vent SKIN: Warm and dry. HEAD: Normocephalic. EYES: No scleral icterus. No injection or drainage. NECK: Supple, trachea midline. No JVD or lymphadenopathy. CARDIOVASCULAR: Regular rate and rhythm without murmurs, gallops, or rubs. RESPIRATORY: Breath sounds equal bilaterally. No accessory muscle use. GASTROINTESTINAL: Abdomen soft, non-tender, nondistended. MUSCULOSKELETAL: No cyanosis, or edema. BACK: Nontender without obvious deformity. No CVA tenderness. - Urinary Catheter Management Indwelling Urethral Catheter Cath placed during this visit: yes Reason for continuing: Acute urinary retention Insertion date: 03/05/18 Insertion time: 08:00 Assessment and Plan - Plan IMPRESSION: 1. Bilateral lung infiltrates. 2. Small pleural effusion. 3. Osteomyelitis of both feet. 4. Diabetes mellitus. 5. Cerebrovascular accident with left-sided contracture. 6. VDRF 7. S/P cardiopulm arrest. PLAN: Vent Support Wean vent as tolerated Cont Abx Aerosol nebs monitor Pl eff Monitor renal functions.
--- NOTE | 2018-03-12 17:05 | MG ---
cc: Leticia Eid MD EEG NUMBER: [id number] REFERRING PHYSICIAN: . CLINICAL HISTORY: In room 527. Intubated with photic done, no sedation. Awake, drowsy, asleep study. EEG 12/18/2017, I do not have a report. History of diabetes, MRSA, hyperlipidemia. No history otherwise given. DESCRIPTION OF RECORD: There is a lot of eye movement, background. There are some theta frequency at times, 4-5 Hz. EKG looks overall sinus. Overall, there is some mild slowing; a lot of eye flutter. Photic stimulation; questionable mild driving response. No epileptiform features. IMPRESSION: Mild background slowing consistent with what looks like an encephalopathic process. Clinical correlation. MD OBED Wise/marivel/tao , 03:43 PM , 03:49 PM
[2018-03-13 04:51] LABS: Baso % (Auto) 0.2 % (0.0-2.0); Eos # (Auto) 0.1 th/mm3 (0.0-0.4); Hematocrit 22.2 % (39.0-51.0); Hemoglobin 7.3 gm/dL (13.0-17.0); Lymph % (Auto) 15.2 % (9.0-44.0); Mean Corpuscular HGB Conc 33.1 % (32.0-36.0); Mean Corpuscular Hemoglobin 30.1 pg (27.0-34.0); Mean Platelet Volume 8.4 fL (7.0-11.0); Mono # (Auto) 0.4 th/mm3 (0.0-0.9); Mono % (Auto) 6.3 % (0.0-8.0); Neut # (Auto) 4.8 th/mm3 (1.8-7.7); Neut % (Auto) 76.3 % (16.0-70.0); Platelet Count 124 th/mm3 (150-450); Red Blood Count 2.44 mil/mm3 (4.50-5.90); Red Cell Distribution Width 15.3 % (11.6-17.2); White Blood Count 6.3 th/mm3 (4.0-11.0)
[2018-03-13 05:12] LABS: Alanine Aminotransferase 46 U/L (12-78); Albumin 1.7 g/dL (3.4-5.0); Anion Gap 12 meq/L (5-15); Aspartate Aminotransferase 54 U/L (15-37); Blood Urea Nitrogen 28 mg/dL (7-18); Calcium 8.2 mg/dL (8.5-10.1); Carbon Dioxide 25.3 meq/L (21.0-32.0); Chloride 110 meq/L (98-107); Glomerular Filtration Rate 62 mL/min (>89); Glucose,Random 66 mg/dL (74-106); Magnesium 1.9 mg/dL (1.5-2.5); Phosphorus 4.2 mg/dL (2.5-4.9); Potassium 3.3 meq/L (3.5-5.1); Sodium 147 meq/L (136-145)
[2018-03-13 05:15] LABS: % Iron Saturation 7.7 % (20-50); Alkaline Phosphatase 174 U/L (45-117); Ferritin 463 ng/mL (26-388); Iron 13 mcg/dL (65-175); Total Iron Binding Capacity 168 mcg/dL (250-450); Total Protein 6.5 g/dL (6.4-8.2)
[2018-03-13] MEDS: Insulin NovoLIN Regular Correctional Sugar Inj SQ SCH ×5 (06:08→21:25)
--- NOTE | 2018-03-13 07:04 | P.PNCC ---
Subjective Subjective Remarks/Hospital Course: The patient is a 47-year-old male with a past medical history of a CVA with left -sided hemiparesis, hypertension, diabetes mellitus, anemia of chronic disease, CHF, dysphagia, status post PEG tube placement, depression, nonverbal, who was admitted under the hospitalist service on 02/17/2018 for acute on chronic anemia. In addition, the patient has a history of bilateral foot osteomyelitis. During his hospital course, he had worsening renal function with a creatinine of 1.74 this morning from 1.1 on admission. In addition, the patient was found hypernatremic with a sodium level of 156 and hyperkalemic with a potassium level 5.3. A halicat was called 2 days ago for shortness of breath, and this morning the patient had a PEA arrest. ACLS protocol was initiated and the patient received epinephrine x3, 2 amps of bicarbonate, and 1 amp of calcium and was subsequently intubated by myself with an ET tube 8.0 cm size. A chest x-ray post intubation showed diffuse bilateral pulmonary infiltrates. He was on NS at 100 mL an hour for the past 2 days. Also, he had a venous Doppler ultrasound on 02/18/2018, which showed no evidence of a DVT; however, it showed a pseudoaneurysm at the distal brachial artery measuring 3.6 x 2.2 x 2.2 cm, predominantly thrombosed; however, there was a small patent component with biphasic flow measuring 6 x 9 mm. A single lumen right PICC line was placed by interventional radiology on 02/22/2018. The patient also had an arterial Doppler ultrasound which was within normal. He was seen by Dr. Jensen from vascular surgery. In addition, the patient has been followed by podiatry and infectious disease. ABG postcode showed acute hypercapnic respiratory acidosis with a pH of 7.11, CO2 of 83, PaO2 of 99, bicarbonate 25, saturation 92% on PRVC mode, rate of 16, tidal volume 500, PEEP of 5, 100% FiO2, and I time 0.9. 03/06 Patient is sedated with Versed and Fenantl drips Levophed started overnight on 4 mics. Afebrile. Renal function worse this morning with C: 1.93 from 1.75 s/p transfusion 2U PRBC yesterday . 03/07: Remains sedated, arousable, orally intubated on mechanical ventilation. Sputum growing ESBL Klebsiella. 03/08 Patient remains intubated and Sedated with Fentanyl drip. Had T: 101 last night.Had an episode of hypoglycemia last night given D50 and placed on D10. 03/09 Patient remains sedated and intubated. T: 100 at 4 am. 03/10 Patient is intubated, sedated T:99.9. renal function is improving with Cr: 2.08 from 2.47 03/11 Patient remains intubated and sedated with Fentanyl drip. Afebrile. 03/12 Patient is off sedation intubated does not follow commands, afebrile. CT brain yesterday no acute findings. 03/13 Patient remains off sedation doesn't follow commands, T:100.3 last night. Renal function is improving with Cr: 1.47 from 1.65 Objective Vital Signs / I&O: Vital Signs 03/12/18 07:00 03/12/18 08:00 03/12/18 09:00 Temperature 98.8 F Pulse Rate 90 85 86 Respiratory Rate 15 Blood Pressure 107/60 109/69 120/72 Pulse Oximetry 99 99 100 03/12/18 09:16 03/12/18 10:00 03/12/18 11:00 Temperature Pulse Rate 92 H 90 86 Respiratory Rate 15 Blood Pressure 122/74 120/70 Pulse Oximetry 100 100 100 03/12/18 12:00 03/12/18 12:03 03/12/18 13:00 Temperature 98.5 F Pulse Rate 92 H 97 H Respiratory Rate 15 15 Blood Pressure 115/65 128/76 Pulse Oximetry 100 100 100 03/12/18 14:00 03/12/18 15:00 03/12/18 15:07 Temperature Pulse Rate 90 92 H Respiratory Rate 15 Blood Pressure 103/57 L 112/63 Pulse Oximetry 100 94 L 99 03/12/18 15:11 03/12/18 16:00 03/12/18 17:00 Temperature 98.4 F Pulse Rate 87 85 85 Respiratory Rate 15 15 Blood Pressure 115/66 118/68 Pulse Oximetry 100 100 03/12/18 18:00 03/12/18 19:00 03/12/18 19:35 Temperature Pulse Rate 90 85 Respiratory Rate 15 Blood Pressure 128/77 102/56 L Pulse Oximetry 100 100 100 03/12/18 20:00 03/12/18 21:00 03/12/18 22:00 Temperature 100.3 F H Pulse Rate 85 88 84 Respiratory Rate Blood Pressure 124/66 116/69 117/66 Pulse Oximetry 100 100 100 03/12/18 22:30 03/12/18 23:00 03/12/18 23:21 Temperature Pulse Rate 86 84 Respiratory Rate 15 15 Blood Pressure 109/64 Pulse Oximetry 100 100 03/13/18 00:00 03/13/18 01:00 03/13/18 01:18 Temperature 98.8 F Pulse Rate 85 84 Respiratory Rate 15 Blood Pressure 112/65 110/65 Pulse Oximetry 100 100 100 03/13/18 02:00 03/13/18 03:00 03/13/18 03:34 Temperature Pulse Rate 84 86 87 Respiratory Rate 15 Blood Pressure 116/69 127/71 Pulse Oximetry 98 100 03/13/18 04:00 03/13/18 04:10 03/13/18 05:00 Temperature Pulse Rate 86 84 Respiratory Rate 15 Blood Pressure 128/76 119/67 Pulse Oximetry 100 100 03/13/18 06:00 Temperature Pulse Rate 81 Respiratory Rate Blood Pressure 128/70 Pulse Oximetry 100 Intake & Output 03/12/18 03/12/18 03/13/18 06:59 18:59 06:59 Intake Total 723 / 723 1762 / 1762 700 / 700 Output Total 1050 / 1050 3200 / 3200 900 / 900 Balance -327 / -327 -1438 / -1438 -200 / -200 Weight 95 kg 91.3 kg Intake: IV 400 / 400 1175 / 1175 100 / 100 INVanz Inj 1,000 MG In NS Inj 100 / 100 100 / 100 100 ML @ 100 mls/hr IV.SIG Q24H KRISTIE Rx#:[id number] LR 1000 mL Inj 1,000 ML @ 50 875 / 875 mls/hr IV.SIG .Q20H KRISTIE Rx#: [id number] Zyvox 600 mg Premix 300 ML @ 300 / 300 300 / 300 300 mls/hr IV.SIG Q12H KRISTIE Rx#: [id number] Tube Feeding 323 / 323 287 / 287 Water Bolus Amount 300 / 300 600 / 600 Output: Urine Amount (Catheter) 1050 / 1050 3200 / 3200 900 / 900 Indwelling Urethral Catheter 1050 / 1050 3200 / 3200 900 / 900 Other: Date of Last Bowel Movement 03/12/18 03/12/18 03/13/18 # Bowel Movements 3 2 Result Diagrams: 03/13/18 03:10 03/13/18 03:10 Other Results: Abdomen/Pelvis CT 02/17/18 00:00 CONCLUSION: 1. Small bilateral pleural effusions and bilateral lower lung opacity again seen. 2. Mild splenomegaly again seen. 3. Gastrostomy tube in place. 4. No evidence of bowel dilatation. 5. Heterotopic ossification about the left hip again seen. 6. Calcified adrenal glands again seen. 7. Enlarged inguinal lymph nodes again seen. Venous Doppler Study 02/18/18 00:00 CONCLUSION: 1. No DVT or SVT. 2. 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 This measures 3.6 x 2.2 x 2.2 cm and is predominantly thrombosed with a small, 6 x 9 mm patent component showing biphasic flow. Central Venous Line 02/22/18 00:00 CONCLUSION: 1. Uncomplicated tunneled central venous Power PICC line placement. 2. The PICC line can be used immediately. Foot MRI 02/22/18 00:00 CONCLUSION: 1. Findings most characteristic of early osteomyelitis at the medial aspect of the first metatarsal head and a tiny focus of probable osteomyelitis at the medial corner of the proximal phalanx great toe. Mild surrounding cellulitis. 2. Previous partial amputation fifth metatarsal. Extremity Arterial Study 02/26/18 00:00 CONCLUSION: 1. Normal ABIs bilaterally. Chest CT 03/05/18 00:00 CONCLUSION: 1. Bilateral effusions and diffuse bilateral consolidation. Acuna Line Insertion 03/05/18 00:00 CONCLUSION: 1. Uncomplicated Acuna catheter placement as above. Head CT 03/11/18 08:30 CONCLUSION: 1. Stable sinus disease. 2. White matter disease and remote infarcts. . Chest X-Ray 03/11/18 08:31 CONCLUSION: Slight improved aeration. Objective Remarks: GENERAL: Patient is 47 yo intubated and sedated SKIN: Warm and dry. HEAD: Normocephalic. EYES: No scleral icterus. No injection or drainage. NECK: Supple, trachea midline. No JVD or lymphadenopathy. CARDIOVASCULAR: Regular rate and rhythm without murmurs, gallops, or rubs. RESPIRATORY: Breath sounds equal bilaterally. No accessory muscle use. GASTROINTESTINAL: Abdomen soft, non-tender, nondistended. + PEG tube MUSCULOSKELETAL: No cyanosis, or edema. Neuro intubated, doesn't follow commands. Assessment and Plan - Assessment and Plan Plan: 1. VDRF 2. S/p PEA arrest 3. Diffuse bilateral pulmonary infiltrates, ddx aspiration pneumonia and fluid overload. 4. Hypertension. 5. Acute kidney injury. 6. History CVA with left-sided hemiparesis. 7. 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 8. Bilateral foot osteomyelitis methicillin-resistant Staphylococcus aureus. Plan Neuro: off sedation monitor neuro status on Keppra 500 mg t.i.d. for a history of seizures. CT brain 03/11: No acute findings. EEG: Mild slowing Pulm: Continue with ventilatory support and maintain sats> 92%. On PRVC RR 15, TV 550, IT:0.9, PEEP:8, FIO2: 40% Bronchodilators, ICU vent bundle. SBT daily as demond. CXR 03/11 improved aeration s/p diagnostic US guided thoracentesis 40ml removed ( transudative fluid ) Bronch with BAL 03/06 showed secretions L>R suctioned to clear, BAL performed LLL. BAL: Kleb pneumonia ESBL, Proteus Mirabilis, MRSA CV: Monitor HR and BP and maintain MAP> 65 mmHg. Echo showed EF 60-65% : Monitor renal function, I's and O's and avoid nephrotoxins. Renal function is improving with Cr: 1.47 today from 1.65 Continue with Free water 300ml Q6 monitor sodium level Lasix 40mg IV daily x 3 days GI: On Prevacid 30 mg daily. Resume tube feeds- Nepro with goal rate 40ml/hr ID: Continue with abx ( Ertapenem, Zyvox) ID is following. Check sputum cx, UA with cx if indicated. Follow up on Blood and urine cx from 03/05- NGTD 03/05 Sputum cx: ESBL Klebsiella BAL cx 03/06: Kleb pneumonia ESBL, Proteus Mirabilis, MRSA Wound culture growing MRSA from osteomyelitis site. Heme: Monitor CBC and coags. s/p transfusion 2u PRBC 03/05 heme occult negative Endo: SSI with Accu-Cheks for glycemic control. GI prophylaxis- On Prevacid DVT prophylaxis- SCD, heparin SQ held for anemia requiring blood transfusion. IV access: RUE single lumen PICC line repositioned by IR 03/05 Condition critical Time spent on critical care excluding procedures 30 minutes
[2018-03-13] MEDS: Senna/Docusate Sodium 8.6/50 MG Tablet G-TUBE SCH ×2 (08:36→21:21)
[2018-03-13] MEDS: Ascorbic Acid 500 MG Tablet G-TUBE SCH ×2 (08:36→21:21)
[2018-03-13] MEDS: levETIRAcetam 500 MG Tablet G-TUBE SCH ×4 (08:36→18:47)
--- NOTE | 2018-03-13 10:21 | P.PNNP ---
Subjective Interval history: Remains on orally intubated on ventilator. No sedation. Creatinine has improved at 1.47 from 1.61. <Amparo Arriaga - Last Filed: 03/13/18 10:17> Physical Exam Vital signs: Vital Signs 03/12/18 11:00 03/12/18 12:00 03/12/18 12:03 Temperature 98.5 F Pulse Rate 86 92 H Respiratory Rate 15 15 Blood Pressure 120/70 115/65 Pulse Oximetry 100 100 100 03/12/18 13:00 03/12/18 14:00 03/12/18 15:00 Temperature Pulse Rate 97 H 90 92 H Respiratory Rate Blood Pressure 128/76 103/57 L 112/63 Pulse Oximetry 100 100 94 L 03/12/18 15:07 03/12/18 15:11 03/12/18 16:00 Temperature 98.4 F Pulse Rate 87 85 Respiratory Rate 15 15 15 Blood Pressure 115/66 Pulse Oximetry 99 100 03/12/18 17:00 03/12/18 18:00 03/12/18 19:00 Temperature Pulse Rate 85 90 85 Respiratory Rate Blood Pressure 118/68 128/77 102/56 L Pulse Oximetry 100 100 100 03/12/18 19:35 03/12/18 20:00 03/12/18 21:00 Temperature 100.3 F H Pulse Rate 85 88 Respiratory Rate 15 Blood Pressure 124/66 116/69 Pulse Oximetry 100 100 100 03/12/18 22:00 03/12/18 22:30 03/12/18 23:00 Temperature Pulse Rate 84 86 Respiratory Rate 15 Blood Pressure 117/66 109/64 Pulse Oximetry 100 100 100 03/12/18 23:21 03/13/18 00:00 03/13/18 01:00 Temperature 98.8 F Pulse Rate 84 85 84 Respiratory Rate 15 Blood Pressure 112/65 110/65 Pulse Oximetry 100 100 03/13/18 01:18 03/13/18 02:00 03/13/18 03:00 Temperature Pulse Rate 84 86 Respiratory Rate 15 Blood Pressure 116/69 127/71 Pulse Oximetry 100 98 100 03/13/18 03:34 03/13/18 04:00 03/13/18 04:10 Temperature Pulse Rate 87 86 Respiratory Rate 15 15 Blood Pressure 128/76 Pulse Oximetry 100 100 03/13/18 05:00 03/13/18 06:00 03/13/18 08:14 Temperature Pulse Rate 84 81 92 H Respiratory Rate 15 Blood Pressure 119/67 128/70 Pulse Oximetry 100 100 Intake & Output 03/12/18 03/13/18 03/13/18 18:59 06:59 18:59 Intake Total 1762 / 1762 700 / 700 300 / 300 Output Total 3200 / 3200 900 / 900 Balance -1438 / -1438 -200 / -200 300 / 300 Weight 91.3 kg Intake: IV 1175 / 1175 100 / 100 300 / 300 INVanz Inj 1,000 MG In NS Inj 100 / 100 100 ML @ 100 mls/hr IV.SIG Q24H KRISTIE Rx#:[id number] LR 1000 mL Inj 1,000 ML @ 50 875 / 875 mls/hr IV.SIG .Q20H KRISTIE Rx#: [id number] Zyvox 600 mg Premix 300 ML @ 300 / 300 300 / 300 300 mls/hr IV.SIG Q12H KRISTIE Rx#: [id number] Tube Feeding 287 / 287 Water Bolus Amount 300 / 300 600 / 600 Output: Urine Amount (Catheter) 3200 / 3200 900 / 900 Indwelling Urethral Catheter 3200 / 3200 900 / 900 Other: Date of Last Bowel Movement 03/12/18 03/13/18 # Bowel Movements 2 Narrative: GENERAL: Orally intubated on no sedation SKIN: Warm and dry. HEAD: Normocephalic. EYES: No scleral icterus. No injection or drainage. NECK: Supple, trachea midline. No JVD or lymphadenopathy. CARDIOVASCULAR: Regular rate and rhythm without murmurs, gallops, or rubs. RESPIRATORY: Breath sounds equal bilaterally. No accessory muscle use. GASTROINTESTINAL: Abdomen soft, non-tender, nondistended. + PEG tube MUSCULOSKELETAL: No cyanosis, or edema. - Urinary Catheter Management Indwelling Urethral Catheter Cath placed during this visit: yes Reason for continuing: Acute urinary retention Insertion date: 03/05/18 Insertion time: 08:00 <Amparo Arriaga - Last Filed: 03/13/18 10:17> Vital signs: Vital Signs 03/12/18 11:00 03/12/18 12:00 03/12/18 12:03 Temperature 98.5 F Pulse Rate 86 92 H Respiratory Rate 15 15 Blood Pressure 120/70 115/65 Pulse Oximetry 100 100 100 03/12/18 13:00 03/12/18 14:00 03/12/18 15:00 Temperature Pulse Rate 97 H 90 92 H Respiratory Rate Blood Pressure 128/76 103/57 L 112/63 Pulse Oximetry 100 100 94 L 03/12/18 15:07 03/12/18 15:11 03/12/18 16:00 Temperature 98.4 F Pulse Rate 87 85 Respiratory Rate 15 15 15 Blood Pressure 115/66 Pulse Oximetry 99 100 03/12/18 17:00 03/12/18 18:00 03/12/18 19:00 Temperature Pulse Rate 85 90 85 Respiratory Rate Blood Pressure 118/68 128/77 102/56 L Pulse Oximetry 100 100 100 03/12/18 19:35 03/12/18 20:00 03/12/18 21:00 Temperature 100.3 F H Pulse Rate 85 88 Respiratory Rate 15 Blood Pressure 124/66 116/69 Pulse Oximetry 100 100 100 03/12/18 22:00 03/12/18 22:30 03/12/18 23:00 Temperature Pulse Rate 84 86 Respiratory Rate 15 Blood Pressure 117/66 109/64 Pulse Oximetry 100 100 100 03/12/18 23:21 03/13/18 00:00 03/13/18 01:00 Temperature 98.8 F Pulse Rate 84 85 84 Respiratory Rate 15 Blood Pressure 112/65 110/65 Pulse Oximetry 100 100 03/13/18 01:18 03/13/18 02:00 03/13/18 03:00 Temperature Pulse Rate 84 86 Respiratory Rate 15 Blood Pressure 116/69 127/71 Pulse Oximetry 100 98 100 03/13/18 03:34 03/13/18 04:00 03/13/18 04:10 Temperature Pulse Rate 87 86 Respiratory Rate 15 15 Blood Pressure 128/76 Pulse Oximetry 100 100 03/13/18 05:00 03/13/18 06:00 03/13/18 08:14 Temperature Pulse Rate 84 81 92 H Respiratory Rate 15 Blood Pressure 119/67 128/70 Pulse Oximetry 100 100 Intake & Output 03/12/18 03/13/18 03/13/18 18:59 06:59 18:59 Intake Total 1762 / 1762 700 / 700 300 / 300 Output Total 3200 / 3200 900 / 900 Balance -1438 / -1438 -200 / -200 300 / 300 Weight 91.3 kg Intake: IV 1175 / 1175 100 / 100 300 / 300 INVanz Inj 1,000 MG In NS Inj 100 / 100 100 ML @ 100 mls/hr IV.SIG Q24H KRISTIE Rx#:[id number] LR 1000 mL Inj 1,000 ML @ 50 875 / 875 mls/hr IV.SIG .Q20H KRISTIE Rx#: [id number] Zyvox 600 mg Premix 300 ML @ 300 / 300 300 / 300 300 mls/hr IV.SIG Q12H KRISTIE Rx#: [id number] Tube Feeding 287 / 287 Water Bolus Amount 300 / 300 600 / 600 Output: Urine Amount (Catheter) 3200 / 3200 900 / 900 Indwelling Urethral Catheter 3200 / 3200 900 / 900 Other: Date of Last Bowel Movement 03/12/18 03/13/18 # Bowel Movements 2 - Urinary Catheter Management Indwelling Urethral Catheter Cath placed during this visit: no <Juan Gregg S - Last Filed: 03/13/18 10:40> Assessment and Plan - Assessment (1) Acute kidney injury Code(s): N17.9 - Acute kidney failure, unspecified Status: Acute Plan: Acute kidney injury with a creatinine of 2.76 on day of consult with worsening since the . Acute kidney injury possible related to vancomycin toxicity last dose on the Baseline Creatinine noted to be 1.07 on 02/26. CT of pelvis on admission with kidney of normal in size and shape and no evidence of mass or hydronephrosis. Complements normal and serology pending SPEP abnormal Creatinine is improving at 1.47 from 1.65, non oliguric Plan Avoid nephrotoxins including IV contrast, NSAIDS,and aminoglycosides. Maintain strict I+o, maintain indwelling Dudley catheter Continue to monitor urinary output and BMP. SPEP abnormal Immunofixation ordered for tomorrow (2) Anemia of chronic disorder Code(s): D63.8 - Anemia in other chronic diseases classified elsewhere Status : Acute Plan: HGB stable at 7.3 Iron sat at 7.7 and ferritin at 463 will order one dose of IV Venofer (3) Hypernatremia Code(s): E87.0 - Hyperosmolality and hypernatremia Status: Acute Plan: Sodium level increased at 147, continue free water 300ml changed to every 4 hours <Amparo Arriaga - Last Filed: 03/13/18 10:17> - Assessment (1) Acute kidney injury Code(s): N17.9 - Acute kidney failure, unspecified Status: Acute (2) Anemia of chronic disorder Code(s): D63.8 - Anemia in other chronic diseases classified elsewhere Status : Acute (3) Hypernatremia Code(s): E87.0 - Hyperosmolality and hypernatremia Status: Acute - Attending Attestation Patient seen and examined; records reviewed; agree with the plan and recommendations of the PROF[employer] <Juan Gregg - Last Filed: 03/13/18 10:40>
[2018-03-13] MEDS ORDERED: Iron Sucrose Inj 100 MG in Sodium Chlor 0.9% Inj 100 ML IV.SIG ONE (12:00)
--- NOTE | 2018-03-13 13:58 | XR ---
EXAM DATE: 03/13/2018 1:54 PM EDT AGE/SEX: 47 years / Male INDICATIONS: Vomiting CLINICAL DATA: This is the patient's subsequent encounter. Patient reports that signs and symptoms h ave been present for 2 days and indicates a pain score of 4/10. MEDICAL/SURGICAL HISTORY: Cerebrovascular disease. Hypertension. Anemia. CABG. David COMPARISON: [facility] – [place], [place] ABDOMEN & PELVIS W/O CONTRAST, 02/17/2018. . FINDINGS: A gastrostomy tube overlies the left midabdomen. Bilateral adrenal calcifications are noted. Nonobst ructive bowel gas pattern with a relative paucity of bowel gas. Small amount of air in the rectosigmo id is seen. CONCLUSION: Bilateral adrenal calcifications. Electronically signed by: Mike Tee MD 03/13/2018 1:57 PM EDT
[2018-03-13] MEDS ORDERED: Sodium Phosphate Inj 30 MMOL in Sodium Chlor 0.9% Inj 250 ML IV.SIG PRN (14:59)
[2018-03-13] MEDS ORDERED: Potassium Phosphate Inj 30 MMOL in Sodium Chlor 0.9% Inj 250 ML IV.SIG PRN (14:59)
[2018-03-13] MEDS ORDERED: Magnesium Sulfate Inj 4 GM in Sodium Chlor 0.9% Inj 92 ML IV.SIG PRN (14:59)
[2018-03-13] MEDS ORDERED: Potassium Phosphate 500 MG Soluble Tablet PO PRN ×2 (14:59)
[2018-03-13] MEDS ORDERED: Potassium Chlor 40 mEq Premix 40 MEQ/100 ML PIGGYBACK IV.SIG PRN (14:59)
[2018-03-13] MEDS ORDERED: Magnesium Sulfate Inj 2 GM in Sodium Chlor 0.9% Inj 96 ML IV.SIG PRN (14:59)
[2018-03-13] MEDS ORDERED: Magnesium Oxide 400 MG Tablet PO PRN (14:59)
[2018-03-13 15:06] LABS: Bacteria,Urine Rare /hpf; Bilirubin,Urine Negative (Negative); Clarity,Urine Hazy (Clear); Color,Urine Yellow (Yellw/Straw); Glucose,Urine (UA) Negative (Negative); Leukocyte Esterase,Urine Small (Negative); Mucus,Urine Few /lpf (Occasional); Nitrite,Urine Negative (Negative); Specific Gravity,Urine 1.006 (1.002-1.035); Squamous Epithelial Cell,Urine 1 /hpf (0-5)
[2018-03-13] MEDS: Potassium Chlor 20 mEq Premix 20 MEQ/100 ML PIGGYBACK IV.SIG PRN ×2 (16:06→18:47)
--- NOTE | 2018-03-13 19:02 | P.PNPL ---
Subjective Interval history: On Vent, fi02 45% Off sedation CT Brain NAD Opens eyes and follows commands Started vomiting on starting TF Physical Exam Vital signs: Vital Signs 03/12/18 19:35 03/12/18 20:00 03/12/18 21:00 Temperature 100.3 F H Pulse Rate 85 88 Respiratory Rate 15 Blood Pressure 124/66 116/69 Pulse Oximetry 100 100 100 03/12/18 22:00 03/12/18 22:30 03/12/18 23:00 Temperature Pulse Rate 84 86 Respiratory Rate 15 Blood Pressure 117/66 109/64 Pulse Oximetry 100 100 100 03/12/18 23:21 03/13/18 00:00 03/13/18 01:00 Temperature 98.8 F Pulse Rate 84 85 84 Respiratory Rate 15 Blood Pressure 112/65 110/65 Pulse Oximetry 100 100 03/13/18 01:18 03/13/18 02:00 03/13/18 03:00 Temperature Pulse Rate 84 86 Respiratory Rate 15 Blood Pressure 116/69 127/71 Pulse Oximetry 100 98 100 03/13/18 03:34 03/13/18 04:00 03/13/18 04:10 Temperature Pulse Rate 87 86 Respiratory Rate 15 15 Blood Pressure 128/76 Pulse Oximetry 100 100 03/13/18 05:00 03/13/18 06:00 03/13/18 08:00 Temperature 98.5 F Pulse Rate 84 81 82 Respiratory Rate 15 Blood Pressure 119/67 128/70 119/67 Pulse Oximetry 100 100 03/13/18 08:14 03/13/18 10:00 03/13/18 11:33 Temperature Pulse Rate 92 H 80 Respiratory Rate 15 15 Blood Pressure Pulse Oximetry 100 98 03/13/18 12:00 03/13/18 14:00 03/13/18 16:14 Temperature 98.7 F Pulse Rate 85 81 Respiratory Rate 15 11 L Blood Pressure 120/67 Pulse Oximetry 100 Intake & Output 03/13/18 03/13/18 03/14/18 06:59 18:59 06:59 Intake Total 700 / 700 805 / 805 Output Total 900 / 900 Balance -200 / -200 805 / 805 Weight 91.3 kg Intake: IV 100 / 100 805 / 805 INVanz Inj 1,000 MG In NS Inj 100 / 100 100 ML @ 100 mls/hr IV.SIG Q24H KRISTIE Rx#:[id number] Venofer Inj 100 MG In NS Inj 105 / 105 100 ML @ 105 mls/hr IV.SIG ONCE ONE Rx#:[id number] Zyvox 600 mg Premix 300 ML @ 600 / 600 300 mls/hr IV.SIG Q12H KRISTIE Rx#: [id number] KCl 20 mEq Premix Inj 20 meq In 100 / 100 100 ml @ 50 mls/hr IV.SIG Q2H PRN Rx#:[id number] Water Bolus Amount 600 / 600 Output: Urine Amount (Catheter) 900 / 900 Indwelling Urethral Catheter 900 / 900 Other: Date of Last Bowel Movement 03/13/18 03/13/18 GENERAL: WBWN, On vent SKIN: Warm and dry. HEAD: Normocephalic. EYES: No scleral icterus. No injection or drainage. NECK: Supple, trachea midline. No JVD or lymphadenopathy. CARDIOVASCULAR: Regular rate and rhythm without murmurs, gallops, or rubs. RESPIRATORY: Breath sounds equal bilaterally. No accessory muscle use. GASTROINTESTINAL: Abdomen soft, non-tender, nondistended. has PEG tube. MUSCULOSKELETAL: No cyanosis, or edema. Contracture left side BACK: Nontender without obvious deformity. No CVA tenderness. - Urinary Catheter Management Indwelling Urethral Catheter Cath placed during this visit: yes Reason for continuing: Acute urinary retention Insertion date: 03/05/18 Insertion time: 08:00 Assessment and Plan - Plan IMPRESSION: 1. Bilateral lung infiltrates. 2. Small pleural effusion. 3. Osteomyelitis of both feet. 4. Diabetes mellitus. 5. Cerebrovascular accident with left-sided contracture. 6. VDRF 7. S/P cardiopulm arrest. PLAN: Vent Support Cont CPAP Cont Abx Aerosol nebs monitor Pl eff Monitor renal functions. TF on hold.
[2018-03-14] MEDS: Insulin NovoLIN Regular Correctional Sugar Inj SQ SCH ×7 (04:54→23:37)
[2018-03-14] MEDS: Dextrose 50% in Water 50 ML Vial IV.PUSH PRN (05:02)
[2018-03-14 05:30] LABS: Baso % (Auto) 0.2 % (0.0-2.0); Eos # (Auto) 0.1 th/mm3 (0.0-0.4); Eos % (Auto) 2.1 % (0.0-4.0); Hematocrit 23.3 % (39.0-51.0); Hemoglobin 7.8 gm/dL (13.0-17.0); Lymph % (Auto) 16.2 % (9.0-44.0); Mean Corpuscular HGB Conc 33.4 % (32.0-36.0); Mean Corpuscular Hemoglobin 30.3 pg (27.0-34.0); Mean Corpuscular Volume 90.7 fL (80.0-100.0); Mean Platelet Volume 8.3 fL (7.0-11.0); Mono # (Auto) 0.3 th/mm3 (0.0-0.9); Mono % (Auto) 5.7 % (0.0-8.0); Neut # (Auto) 4.5 th/mm3 (1.8-7.7); Neut % (Auto) 75.8 % (16.0-70.0); Platelet Count 149 th/mm3 (150-450); Red Blood Count 2.57 mil/mm3 (4.50-5.90); Red Cell Distribution Width 15.2 % (11.6-17.2)
[2018-03-14 05:46] LABS: Albumin 1.9 g/dL (3.4-5.0); Anion Gap 10 meq/L (5-15); Aspartate Aminotransferase 48 U/L (15-37); Blood Urea Nitrogen 23 mg/dL (7-18); Calcium 8.5 mg/dL (8.5-10.1); Chloride 110 meq/L (98-107); Glomerular Filtration Rate 74 mL/min (>89); Glucose,Random 54 mg/dL (74-106); Magnesium 1.8 mg/dL (1.5-2.5); Potassium 3.6 meq/L (3.5-5.1); Sodium 147 meq/L (136-145)
[2018-03-14 05:59] LABS: Alanine Aminotransferase 43 U/L (12-78); Alkaline Phosphatase 146 U/L (45-117); Immunoglobulin A 326 mg/dL (87-481); Immunoglobulin G 1760 mg/dL (660-1620); Immunoglobulin M 101 mg/dL (42-258); Kappa Lambda Ratio 1.54 (1.57-3.93); Lambda Light Chain 269 mg/dL (90-210); Phosphorus 3.9 mg/dL (2.5-4.9); Total Protein 6.1 g/dL (6.4-8.2)
[2018-03-14] MEDS: Senna/Docusate Sodium 8.6/50 MG Tablet G-TUBE SCH ×2 (08:46→20:05)
[2018-03-14] MEDS: Ascorbic Acid 500 MG Tablet G-TUBE SCH ×2 (08:46→20:05)
[2018-03-14] MEDS: levETIRAcetam 500 MG Tablet G-TUBE SCH ×3 (08:46→17:43)
--- NOTE | 2018-03-14 09:49 | P.PNCC ---
Subjective Subjective Remarks/Hospital Course: The patient is a 47-year-old male with a past medical history of a CVA with left -sided hemiparesis, hypertension, diabetes mellitus, anemia of chronic disease, CHF, dysphagia, status post PEG tube placement, depression, nonverbal, who was admitted under the hospitalist service on 02/17/2018 for acute on chronic anemia. In addition, the patient has a history of bilateral foot osteomyelitis. During his hospital course, he had worsening renal function with a creatinine of 1.74 this morning from 1.1 on admission. In addition, the patient was found hypernatremic with a sodium level of 156 and hyperkalemic with a potassium level 5.3. A halicat was called 2 days ago for shortness of breath, and this morning the patient had a PEA arrest. ACLS protocol was initiated and the patient received epinephrine x3, 2 amps of bicarbonate, and 1 amp of calcium and was subsequently intubated by myself with an ET tube 8.0 cm size. A chest x-ray post intubation showed diffuse bilateral pulmonary infiltrates. He was on NS at 100 mL an hour for the past 2 days. Also, he had a venous Doppler ultrasound on 02/18/2018, which showed no evidence of a DVT; however, it showed a pseudoaneurysm at the distal brachial artery measuring 3.6 x 2.2 x 2.2 cm, predominantly thrombosed; however, there was a small patent component with biphasic flow measuring 6 x 9 mm. A single lumen right PICC line was placed by interventional radiology on 02/22/2018. The patient also had an arterial Doppler ultrasound which was within normal. He was seen by Dr. Jensen from vascular surgery. In addition, the patient has been followed by podiatry and infectious disease. ABG postcode showed acute hypercapnic respiratory acidosis with a pH of 7.11, CO2 of 83, PaO2 of 99, bicarbonate 25, saturation 92% on PRVC mode, rate of 16, tidal volume 500, PEEP of 5, 100% FiO2, and I time 0.9. 03/06 Patient is sedated with Versed and Fenantl drips Levophed started overnight on 4 mics. Afebrile. Renal function worse this morning with C: 1.93 from 1.75 s/p transfusion 2U PRBC yesterday . 03/07: Remains sedated, arousable, orally intubated on mechanical ventilation. Sputum growing ESBL Klebsiella. 03/08 Patient remains intubated and Sedated with Fentanyl drip. Had T: 101 last night.Had an episode of hypoglycemia last night given D50 and placed on D10. 03/09 Patient remains sedated and intubated. T: 100 at 4 am. 03/10 Patient is intubated, sedated T:99.9. renal function is improving with Cr: 2.08 from 2.47 03/11 Patient remains intubated and sedated with Fentanyl drip. Afebrile. 03/12 Patient is off sedation intubated does not follow commands, afebrile. CT brain yesterday no acute findings. 03/13 Patient remains off sedation doesn't follow commands, T:100.3 last night. Renal function is improving with Cr: 1.47 from 1.65 03/14 Remains sedated and intubated, afebrile. TF om hold for emesis. Afebrile. Objective Vital Signs / I&O: Vital Signs 03/13/18 10:00 03/13/18 11:33 03/13/18 12:00 Temperature 98.7 F Pulse Rate 80 85 Respiratory Rate 15 15 Blood Pressure 120/67 Pulse Oximetry 98 100 03/13/18 14:00 03/13/18 16:00 03/13/18 16:14 Temperature 98.5 F Pulse Rate 81 81 Respiratory Rate 22 11 L Blood Pressure 141/79 H Pulse Oximetry 100 03/13/18 18:00 03/13/18 20:00 03/13/18 21:28 Temperature 98.1 F Pulse Rate 87 86 Respiratory Rate 15 15 Blood Pressure 140/75 Pulse Oximetry 92 L 99 03/13/18 21:32 03/13/18 22:00 03/14/18 00:00 Temperature 98.4 F Pulse Rate 89 88 92 H Respiratory Rate 15 22 Blood Pressure 137/80 Pulse Oximetry 97 03/14/18 00:52 03/14/18 02:00 03/14/18 03:24 Temperature Pulse Rate 87 97 H Respiratory Rate 15 15 Blood Pressure Pulse Oximetry 96 03/14/18 04:00 03/14/18 04:29 03/14/18 06:00 Temperature 99.4 F Pulse Rate 96 H 110 H Respiratory Rate 15 15 Blood Pressure 100/66 Pulse Oximetry 100 99 03/14/18 08:23 Temperature Pulse Rate Respiratory Rate 15 Blood Pressure Pulse Oximetry 94 L Intake & Output 03/13/18 03/14/18 03/14/18 18:59 06:59 18:59 Intake Total 805 / 805 400 / 400 Output Total 1550 / 1550 2125 / 2125 Balance -745 / -745 -1725 / -1725 Weight 87.2 kg Intake: IV 805 / 805 400 / 400 INVanz Inj 1,000 MG In NS Inj 100 / 100 100 ML @ 100 mls/hr IV.SIG Q24H KRISTIE Rx#:[id number] Venofer Inj 100 MG In NS Inj 105 / 105 100 ML @ 105 mls/hr IV.SIG ONCE ONE Rx#:[id number] Zyvox 600 mg Premix 300 ML @ 600 / 600 300 / 300 300 mls/hr IV.SIG Q12H KRISTIE Rx#: [id number] KCl 20 mEq Premix Inj 20 meq In 100 / 100 100 ml @ 50 mls/hr IV.SIG Q2H PRN Rx#:[id number] Output: Stool 200 / 200 Urine Amount (Catheter) 1550 / 1550 1924 / 1925 Indwelling Urethral Catheter 1550 / 1550 1924 / 192 Other: Date of Last Bowel Movement 03/13/18 03/13/18 Result Diagrams: 03/14/18 04:20 03/14/18 04:20 Other Results: Laboratory Results - last 12 hr 03/09/18 03/13/18 03/14/18 04:50 23:27 04:20 WBC 6.0 RBC 2.57 L Hgb 7.8 L Hct 23.3 L MCV 90.7 MCH 30.3 MCHC 33.4 RDW 15.2 Plt Count 149 L MPV 8.3 Neut % (Auto) 75.8 H Lymph % (Auto) 16.2 [place] % (Auto) 5.7 Eos % (Auto) 2.1 Baso % (Auto) 0.2 Neut # (Auto) 4.5 Lymph # (Auto) 1.0 [place] # (Auto) 0.3 Eos # (Auto) 0.1 Baso # (Auto) 0.0 WBC Differential . Differential Comment Auto diff final Sodium Potassium Chloride Carbon Dioxide Anion Gap BUN Creatinine Estimated GFR POC Glucose 88 Random Glucose Calcium Phosphorus Magnesium Total Bilirubin AST ALT Alkaline Phosphatase Total Protein Albumin IgG IgA IgM [place]/Lambda Ratio Anti-Proteinase 3 Less than 1.0 Anti-Myeloperoxidase Less than 1.0 [place] Light Chain Anal Lambda Light Chain Anal 03/14/18 03/14/18 03/14/18 04:20 04:56 05:24 WBC RBC Hgb Hct MCV MCH MCHC RDW Plt Count MPV Neut % (Auto) Lymph % (Auto) [place] % (Auto) Eos % (Auto) Baso % (Auto) Neut # (Auto) Lymph # (Auto) [place] # (Auto) Eos # (Auto) Baso # (Auto) WBC Differential Differential Comment Sodium 147 H Potassium 3.6 Chloride 110 H Carbon Dioxide 27.0 Anion Gap 10 BUN 23 H Creatinine 1.27 Estimated GFR 74 L POC Glucose 66 L 138 H Random Glucose 54 L Calcium 8.5 Phosphorus 3.9 Magnesium 1.8 Total Bilirubin 0.4 AST 48 H ALT 43 Alkaline Phosphatase 146 H Total Protein 6.1 L Albumin 1.9 L IgG 1760 H IgA 326 IgM 101 [place]/Lambda Ratio 1.54 L Anti-Proteinase 3 Anti-Myeloperoxidase [place] Light Chain Anal 414 H Lambda Light Chain Anal 269 H 03/14/18 07:38 WBC RBC Hgb Hct MCV MCH MCHC RDW Plt Count MPV Neut % (Auto) Lymph % (Auto) [place] % (Auto) Eos % (Auto) Baso % (Auto) Neut # (Auto) Lymph # (Auto) [place] # (Auto) Eos # (Auto) Baso # (Auto) WBC Differential Differential Comment Sodium Potassium Chloride Carbon Dioxide Anion Gap BUN Creatinine Estimated GFR POC Glucose 87 Random Glucose Calcium Phosphorus Magnesium Total Bilirubin AST ALT Alkaline Phosphatase Total Protein Albumin IgG IgA IgM [place]/Lambda Ratio Anti-Proteinase 3 Anti-Myeloperoxidase [place] Light Chain Anal Lambda Light Chain Anal Imaging: Abdomen/Pelvis CT 02/17/18 00:00 CONCLUSION: 1. Small bilateral pleural effusions and bilateral lower lung opacity again seen. 2. Mild splenomegaly again seen. 3. Gastrostomy tube in place. 4. No evidence of bowel dilatation. 5. Heterotopic ossification about the left hip again seen. 6. Calcified adrenal glands again seen. 7. Enlarged inguinal lymph nodes again seen. Venous Doppler Study 02/18/18 00:00 CONCLUSION: 1. No DVT or SVT. 2. 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 This measures 3.6 x 2.2 x 2.2 cm and is predominantly thrombosed with a small, 6 x 9 mm patent component showing biphasic flow. Central Venous Line 02/22/18 00:00 CONCLUSION: 1. Uncomplicated tunneled central venous Power PICC line placement. 2. The PICC line can be used immediately. Foot MRI 02/22/18 00:00 CONCLUSION: 1. Findings most characteristic of early osteomyelitis at the medial aspect of the first metatarsal head and a tiny focus of probable osteomyelitis at the medial corner of the proximal phalanx great toe. Mild surrounding cellulitis. 2. Previous partial amputation fifth metatarsal. Extremity Arterial Study 02/26/18 00:00 CONCLUSION: 1. Normal ABIs bilaterally. Chest CT 03/05/18 00:00 CONCLUSION: 1. Bilateral effusions and diffuse bilateral consolidation. [place] Line Insertion 03/05/18 00:00 CONCLUSION: 1. Uncomplicated [place] catheter placement as above. Head CT 03/11/18 08:30 CONCLUSION: 1. Stable sinus disease. 2. White matter disease and remote infarcts. . Chest X-Ray 03/11/18 08:31 CONCLUSION: Slight improved aeration. Abdomen X-Ray 03/13/18 12:21 CONCLUSION: Bilateral adrenal calcifications. Objective Remarks: GENERAL: Patient is 47 yo intubated and sedated SKIN: Warm and dry. HEAD: Normocephalic. EYES: No scleral icterus. No injection or drainage. NECK: Supple, trachea midline. No JVD or lymphadenopathy. CARDIOVASCULAR: Regular rate and rhythm without murmurs, gallops, or rubs. RESPIRATORY: Breath sounds equal bilaterally. No accessory muscle use. GASTROINTESTINAL: Abdomen soft, non-tender, nondistended. + PEG tube MUSCULOSKELETAL: No cyanosis, or edema. Neuro intubated, doesn't follow commands. Assessment and Plan - Assessment and Plan Plan: 1. VDRF 2. S/p PEA arrest 3. Diffuse bilateral pulmonary infiltrates, ddx aspiration pneumonia and fluid overload. 4. Hypertension. 5. Acute kidney injury. 6. History CVA with left-sided hemiparesis. 7. 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 8. Bilateral foot osteomyelitis methicillin-resistant Staphylococcus aureus. Plan Neuro: off sedation monitor neuro status on Keppra 500 mg t.i.d. for a history of seizures. CT brain 03/11: No acute findings. EEG: Mild slowing Pulm: Continue with ventilatory support and maintain sats> 92%. On PRVC RR 15, TV 550, IT:0.9, PEEP:8, FIO2: 40% Bronchodilators, ICU vent bundle. SBT daily as demond. CXR 03/11 improved aeration s/p diagnostic US guided thoracentesis 40ml removed ( transudative fluid ) Bronch with BAL 03/06 showed secretions L>R suctioned to clear, BAL performed LLL. BAL: Kleb pneumonia ESBL, Proteus Mirabilis, MRSA CV: Monitor HR and BP and maintain MAP> 65 mmHg. Echo showed EF 60-65% : Monitor renal function, I's and O's and avoid nephrotoxins. Renal function is improving with Cr: 1.27 today from 1.47 Continue with Free water 300ml Q6 monitor sodium level Lasix 40mg IV daily x 3 days GI: On Prevacid 30 mg daily. Resume tube feeds- Nepro with goal rate 40ml/hr KUB 03/13: No obstructing bowel gas pattern. ID: Continue with abx (Ertapenem, Zyvox) ID is following. Sputum and urine cx 03/13 pending Follow up on Blood and urine cx from 03/05- NGTD 03/05 Sputum cx: ESBL Klebsiella BAL cx 03/06: Kleb pneumonia ESBL, Proteus Mirabilis, MRSA Wound culture growing MRSA from osteomyelitis site. Heme: Monitor CBC and coags. s/p transfusion 2u PRBC 03/05 heme occult negative Endo: SSI with Accu-Cheks for glycemic control. GI prophylaxis- On Prevacid DVT prophylaxis- SCD, heparin SQ held for anemia requiring blood transfusion. IV access: RUE single lumen PICC line repositioned by IR 03/05 Condition critical Time spent on critical care excluding procedures 30 minutes
--- NOTE | 2018-03-14 13:11 | P.PNNP ---
Subjective Interval history: Patient remains orally intubated. No sedation. Creatinine has improved at 1.27 today. <JordanruddyAmparo - Last Filed: 03/14/18 13:03> Physical Exam Vital signs: Vital Signs 03/13/18 14:00 03/13/18 16:00 03/13/18 16:14 Temperature 98.5 F Pulse Rate 81 81 Respiratory Rate 22 11 L Blood Pressure 141/79 H Pulse Oximetry 100 03/13/18 18:00 03/13/18 20:00 03/13/18 21:28 Temperature 98.1 F Pulse Rate 87 86 Respiratory Rate 15 15 Blood Pressure 140/75 Pulse Oximetry 92 L 99 03/13/18 21:32 03/13/18 22:00 03/14/18 00:00 Temperature 98.4 F Pulse Rate 89 88 92 H Respiratory Rate 15 22 Blood Pressure 137/80 Pulse Oximetry 97 03/14/18 00:52 03/14/18 02:00 03/14/18 03:24 Temperature Pulse Rate 87 97 H Respiratory Rate 15 15 Blood Pressure Pulse Oximetry 96 03/14/18 04:00 03/14/18 04:29 03/14/18 06:00 Temperature 99.4 F Pulse Rate 96 H 110 H Respiratory Rate 15 15 Blood Pressure 100/66 Pulse Oximetry 100 99 03/14/18 08:00 03/14/18 08:23 03/14/18 10:00 Temperature 99.7 F H Pulse Rate 95 H 97 H Respiratory Rate 15 15 Blood Pressure 150/72 H Pulse Oximetry 97 94 L 03/14/18 11:00 Temperature Pulse Rate Respiratory Rate 18 Blood Pressure Pulse Oximetry 92 L Intake & Output 03/13/18 03/14/18 03/14/18 18:59 06:59 18:59 Intake Total 805 / 805 400 / 400 300 / 300 Output Total 1550 / 1550 2125 / 2125 Balance -745 / -745 -1725 / -1725 300 / 300 Weight 87.2 kg Intake: IV 805 / 805 400 / 400 300 / 300 INVanz Inj 1,000 MG In NS Inj 100 / 100 100 ML @ 100 mls/hr IV.SIG Q24H KRISTIE Rx#:[id number] Venofer Inj 100 MG In NS Inj 105 / 105 100 ML @ 105 mls/hr IV.SIG ONCE ONE Rx#:[id number] Zyvox 600 mg Premix 300 ML @ 600 / 600 300 / 300 300 / 300 300 mls/hr IV.SIG Q12H KRISTIE Rx#: [id number] KCl 20 mEq Premix Inj 20 meq In 100 / 100 100 ml @ 50 mls/hr IV.SIG Q2H PRN Rx#:[id number] Output: Stool 200 / 200 Urine Amount (Catheter) 1550 / 1550 1924 / 1924 Indwelling Urethral Catheter 1550 / 1550 1924 / 1924 Other: Date of Last Bowel Movement 03/13/18 03/13/18 03/13/18 Narrative: GENERAL: Orally intubated on no sedation SKIN: Warm and dry. HEAD: Normocephalic. EYES: No scleral icterus. No injection or drainage. NECK: Supple, trachea midline. No JVD or lymphadenopathy. CARDIOVASCULAR: Regular rate and rhythm without murmurs, gallops, or rubs. RESPIRATORY: Breath sounds equal bilaterally. No accessory muscle use. GASTROINTESTINAL: Abdomen soft, non-tender, nondistended. + PEG tube MUSCULOSKELETAL: No cyanosis, or edema. - Urinary Catheter Management Indwelling Urethral Catheter Cath placed during this visit: yes Reason for continuing: Acute urinary retention Insertion date: 03/05/18 Insertion time: 08:00 <Amparo Arriaga - Last Filed: 03/14/18 13:03> Vital signs: Vital Signs 03/13/18 18:00 03/13/18 20:00 03/13/18 21:28 Temperature 98.1 F Pulse Rate 87 86 Respiratory Rate 15 15 Blood Pressure 140/75 Pulse Oximetry 92 L 99 03/13/18 21:32 03/13/18 22:00 03/14/18 00:00 Temperature 98.4 F Pulse Rate 89 88 92 H Respiratory Rate 15 22 Blood Pressure 137/80 Pulse Oximetry 97 03/14/18 00:52 03/14/18 02:00 03/14/18 03:24 Temperature Pulse Rate 87 97 H Respiratory Rate 15 15 Blood Pressure Pulse Oximetry 96 03/14/18 04:00 03/14/18 04:29 03/14/18 06:00 Temperature 99.4 F Pulse Rate 96 H 110 H Respiratory Rate 15 15 Blood Pressure 100/66 Pulse Oximetry 100 99 03/14/18 08:00 03/14/18 08:23 03/14/18 10:00 Temperature 99.7 F H Pulse Rate 95 H 97 H Respiratory Rate 15 15 Blood Pressure 150/72 H Pulse Oximetry 97 94 L 03/14/18 11:00 03/14/18 12:00 03/14/18 14:00 Temperature 99.9 F H Pulse Rate 90 92 H Respiratory Rate 18 13 Blood Pressure 138/72 Pulse Oximetry 92 L 98 03/14/18 16:00 03/14/18 16:18 Temperature 100.3 F H Pulse Rate 102 H Respiratory Rate 15 15 Blood Pressure 157/82 H Pulse Oximetry 97 97 Intake & Output 03/13/18 03/14/18 03/14/18 18:59 06:59 18:59 Intake Total 805 / 805 400 / 400 300 / 300 Output Total 1550 / 1550 2125 / 2125 Balance -745 / -745 -1725 / -1725 300 / 300 Weight 87.2 kg Intake: IV 805 / 805 400 / 400 300 / 300 INVanz Inj 1,000 MG In NS Inj 100 / 100 100 ML @ 100 mls/hr IV.SIG Q24H KRISTIE Rx#:[id number] Venofer Inj 100 MG In NS Inj 105 / 105 100 ML @ 105 mls/hr IV.SIG ONCE ONE Rx#:[id number] Zyvox 600 mg Premix 300 ML @ 600 / 600 300 / 300 300 / 300 300 mls/hr IV.SIG Q12H KRISTIE Rx#: [id number] KCl 20 mEq Premix Inj 20 meq In 100 / 100 100 ml @ 50 mls/hr IV.SIG Q2H PRN Rx#:[id number] Output: Stool 200 / 200 Urine Amount (Catheter) 1550 / 1550 1925 / 1925 Indwelling Urethral Catheter 1550 / 1550 1925 / 1925 Other: Date of Last Bowel Movement 03/13/18 03/13/18 03/13/18 - Urinary Catheter Management Indwelling Urethral Catheter Cath placed during this visit: no <Juan Gregg S - Last Filed: 03/14/18 17:59> Assessment and Plan - Assessment (1) Acute kidney injury Code(s): N17.9 - Acute kidney failure, unspecified Status: Acute Plan: Acute kidney injury with a creatinine of 2.76 on day of consult with worsening since the . Acute kidney injury possible related to vancomycin toxicity last dose on the Baseline Creatinine noted to be 1.07 on 02/26. CT of pelvis on admission with kidney of normal in size and shape and no evidence of mass or hydronephrosis. Complements and serology normal SPEP abnormal, Immunofixation pending. Creatinine is improving at 1.27 from 1.47 Plan Started back on lasix for edema. Avoid nephrotoxins including IV contrast, NSAIDS,and aminoglycosides. Maintain strict I+o, maintain indwelling [place] catheter Continue to monitor urinary output and BMP. (2) Anemia of chronic disorder Code(s): D63.8 - Anemia in other chronic diseases classified elsewhere Status : Acute Plan: HGB stable at 7.8 Monitoring (3) Hypernatremia Code(s): E87.0 - Hyperosmolality and hypernatremia Status: Acute Plan: Sodium level at 147, as patient is not tolerating tube feeding will order D5 1/ 4 NS at 50ml/hr <Amparo Arriaga - Last Filed: 03/14/18 13:03> - Assessment (1) Acute kidney injury Code(s): N17.9 - Acute kidney failure, unspecified Status: Acute (2) Anemia of chronic disorder Code(s): D63.8 - Anemia in other chronic diseases classified elsewhere Status : Acute (3) Hypernatremia Code(s): E87.0 - Hyperosmolality and hypernatremia Status: Acute - Attending Attestation Patient seen and examined; records reviewed; agree with the plan and recommendations of the CARDIAC NURSE <Juan Gregg - Last Filed: 03/14/18 17:59>
[2018-03-14] MEDS: Dextrose 5%/NaCl 0.225% Inj 1,000 ML IV.CONT SCH (14:53)
--- NOTE | 2018-03-14 19:13 | P.PNPL ---
Subjective Interval history: On Vent, fi02 45% Off sedation CT Brain NAD Opens eyes and follows commands No N,V Started back TF at 20 cc/hr Physical Exam Vital signs: Vital Signs 03/13/18 20:00 03/13/18 21:28 03/13/18 21:32 Temperature 98.1 F Pulse Rate 86 89 Respiratory Rate 15 15 15 Blood Pressure 140/75 Pulse Oximetry 92 L 99 03/13/18 22:00 03/14/18 00:00 03/14/18 00:52 Temperature 98.4 F Pulse Rate 88 92 H Respiratory Rate 22 15 Blood Pressure 137/80 Pulse Oximetry 97 96 03/14/18 02:00 03/14/18 03:24 03/14/18 04:00 Temperature 99.4 F Pulse Rate 87 97 H 96 H Respiratory Rate 15 15 Blood Pressure 100/66 Pulse Oximetry 100 03/14/18 04:29 03/14/18 06:00 03/14/18 08:00 Temperature 99.7 F H Pulse Rate 110 H 95 H Respiratory Rate 15 15 Blood Pressure 150/72 H Pulse Oximetry 99 97 03/14/18 08:23 03/14/18 10:00 03/14/18 11:00 Temperature Pulse Rate 97 H Respiratory Rate 15 18 Blood Pressure Pulse Oximetry 94 L 92 L 03/14/18 12:00 03/14/18 14:00 03/14/18 16:00 Temperature 99.9 F H 100.3 F H Pulse Rate 90 92 H 102 H Respiratory Rate 13 15 Blood Pressure 138/72 157/82 H Pulse Oximetry 98 97 03/14/18 16:18 03/14/18 18:00 Temperature Pulse Rate 92 H Respiratory Rate 15 Blood Pressure Pulse Oximetry 97 Intake & Output 03/14/18 03/14/18 03/15/18 06:59 18:59 06:59 Intake Total 400 / 400 300 / 300 Output Total 2125 / 2125 2550 / 2550 Balance -1725 / -1725 -2250 / -2250 Weight 87.2 kg Intake: IV 400 / 400 300 / 300 INVanz Inj 1,000 MG In NS Inj 100 / 100 100 ML @ 100 mls/hr IV.SIG Q24H KRISTIE Rx#:[id number] Zyvox 600 mg Premix 300 ML @ 300 / 300 300 / 300 300 mls/hr IV.SIG Q12H KRISTIE Rx#: [id number] Output: Urine 2500 / 2500 Stool 200 / 200 50 / 50 Urine Amount (Catheter) 1924 Indwelling Urethral Catheter 1924 Other: Date of Last Bowel Movement 03/13/18 03/14/18 GENERAL: WBWN, male on vent SKIN: Warm and dry. HEAD: Normocephalic. EYES: No scleral icterus. No injection or drainage. NECK: Supple, trachea midline. No JVD or lymphadenopathy. CARDIOVASCULAR: Regular rate and rhythm without murmurs, gallops, or rubs. RESPIRATORY: Breath sounds equal bilaterally. No accessory muscle use. GASTROINTESTINAL: Abdomen soft, non-tender, nondistended. MUSCULOSKELETAL: No cyanosis, or edema. BACK: Nontender without obvious deformity. No CVA tenderness. - Urinary Catheter Management Indwelling Urethral Catheter Cath placed during this visit: yes Reason for continuing: Acute urinary retention Insertion date: 03/05/18 Insertion time: 08:00 Assessment and Plan - Plan IMPRESSION: 1. Bilateral lung infiltrates. 2. Small pleural effusion. 3. Osteomyelitis of both feet. 4. Diabetes mellitus. 5. Cerebrovascular accident with left-sided contracture. 6. VDRF 7. S/P cardiopulm arrest. PLAN: Vent Support Cont Abx Aerosol nebs monitor Pl eff Monitor renal functions.
[2018-03-15 04:48] LABS: Baso % (Auto) 0.4 % (0.0-2.0); Eos # (Auto) 0.1 th/mm3 (0.0-0.4); Eos % (Auto) 1.4 % (0.0-4.0); Hematocrit 23.1 % (39.0-51.0); Hemoglobin 7.7 gm/dL (13.0-17.0); Lymph # (Auto) 0.9 th/mm3 (1.0-4.8); Lymph % (Auto) 8.7 % (9.0-44.0); Mean Corpuscular HGB Conc 33.6 % (32.0-36.0); Mean Corpuscular Hemoglobin 30.1 pg (27.0-34.0); Mean Corpuscular Volume 89.6 fL (80.0-100.0); Mean Platelet Volume 7.8 fL (7.0-11.0); Mono # (Auto) 0.6 th/mm3 (0.0-0.9); Mono % (Auto) 6.3 % (0.0-8.0); Neut # (Auto) 8.4 th/mm3 (1.8-7.7); Neut % (Auto) 83.2 % (16.0-70.0); Platelet Count 146 th/mm3 (150-450); Red Blood Count 2.57 mil/mm3 (4.50-5.90); Red Cell Distribution Width 15.3 % (11.6-17.2)
[2018-03-15 05:10] LABS: Alanine Aminotransferase 40 U/L (12-78); Albumin 1.8 g/dL (3.4-5.0); Anion Gap 10 meq/L (5-15); Aspartate Aminotransferase 43 U/L (15-37); Blood Urea Nitrogen 17 mg/dL (7-18); Calcium 7.9 mg/dL (8.5-10.1); Carbon Dioxide 27.9 meq/L (21.0-32.0); Chloride 108 meq/L (98-107); Glomerular Filtration Rate 80 mL/min (>89); Glucose,Random 114 mg/dL (74-106); Magnesium 1.6 mg/dL (1.5-2.5); Phosphorus 3.5 mg/dL (2.5-4.9); Potassium 3.2 meq/L (3.5-5.1); Sodium 146 meq/L (136-145)
[2018-03-15 05:12] LABS: Alkaline Phosphatase 145 U/L (45-117); Total Protein 6.5 g/dL (6.4-8.2)
[2018-03-15] MEDS: Insulin NovoLIN Regular Correctional Sugar Inj SQ SCH ×6 (06:17→23:40)
[2018-03-15] MEDS ORDERED: Acetaminophen 325 MG Tablet PO PRN (06:24)
[2018-03-15] MEDS: Potassium Chlor 20 mEq Premix 20 MEQ/100 ML PIGGYBACK IV.SIG PRN ×2 (06:57→10:34)
--- NOTE | 2018-03-15 08:31 | P.PNCC ---
Subjective Subjective Remarks/Hospital Course: The patient is a 47-year-old male with a past medical history of a CVA with left -sided hemiparesis, hypertension, diabetes mellitus, anemia of chronic disease, CHF, dysphagia, status post PEG tube placement, depression, nonverbal, who was admitted under the hospitalist service on 02/17/2018 for acute on chronic anemia. In addition, the patient has a history of bilateral foot osteomyelitis. During his hospital course, he had worsening renal function with a creatinine of 1.74 this morning from 1.1 on admission. In addition, the patient was found hypernatremic with a sodium level of 156 and hyperkalemic with a potassium level 5.3. A halicat was called 2 days ago for shortness of breath, and this morning the patient had a PEA arrest. ACLS protocol was initiated and the patient received epinephrine x3, 2 amps of bicarbonate, and 1 amp of calcium and was subsequently intubated by myself with an ET tube 8.0 cm size. A chest x-ray post intubation showed diffuse bilateral pulmonary infiltrates. He was on NS at 100 mL an hour for the past 2 days. Also, he had a venous Doppler ultrasound on 02/18/2018, which showed no evidence of a DVT; however, it showed a pseudoaneurysm at the distal brachial artery measuring 3.6 x 2.2 x 2.2 cm, predominantly thrombosed; however, there was a small patent component with biphasic flow measuring 6 x 9 mm. A single lumen right PICC line was placed by interventional radiology on 02/22/2018. The patient also had an arterial Doppler ultrasound which was within normal. He was seen by Dr. Jensen from vascular surgery. In addition, the patient has been followed by podiatry and infectious disease. ABG postcode showed acute hypercapnic respiratory acidosis with a pH of 7.11, CO2 of 83, PaO2 of 99, bicarbonate 25, saturation 92% on PRVC mode, rate of 16, tidal volume 500, PEEP of 5, 100% FiO2, and I time 0.9. 03/06 Patient is sedated with Versed and Fenantl drips Levophed started overnight on 4 mics. Afebrile. Renal function worse this morning with C: 1.93 from 1.75 s/p transfusion 2U PRBC yesterday . 03/07: Remains sedated, arousable, orally intubated on mechanical ventilation. Sputum growing ESBL Klebsiella. 03/08 Patient remains intubated and Sedated with Fentanyl drip. Had T: 101 last night.Had an episode of hypoglycemia last night given D50 and placed on D10. 03/09 Patient remains sedated and intubated. T: 100 at 4 am. 03/10 Patient is intubated, sedated T:99.9. renal function is improving with Cr: 2.08 from 2.47 03/11 Patient remains intubated and sedated with Fentanyl drip. Afebrile. 03/12 Patient is off sedation intubated does not follow commands, afebrile. CT brain yesterday no acute findings. 03/13 Patient remains off sedation doesn't follow commands, T:100.3 last night. Renal function is improving with Cr: 1.47 from 1.65 03/14 Remains intubated, afebrile. TF om hold for emesis. Afebrile. 03/15 Patient remains intubated T:100.0 last night. Objective Vital Signs / I&O: Vital Signs 03/14/18 08:23 03/14/18 10:00 03/14/18 11:00 Temperature Pulse Rate 97 H Respiratory Rate 15 18 Blood Pressure Pulse Oximetry 94 L 92 L 03/14/18 12:00 03/14/18 14:00 03/14/18 16:00 Temperature 99.9 F H 100.3 F H Pulse Rate 90 92 H 102 H Respiratory Rate 13 15 Blood Pressure 138/72 157/82 H Pulse Oximetry 98 97 03/14/18 16:18 03/14/18 18:00 03/14/18 19:50 Temperature Pulse Rate 92 H Respiratory Rate 15 15 Blood Pressure Pulse Oximetry 97 100 03/14/18 19:52 03/14/18 20:00 03/14/18 22:00 Temperature 100.0 F H Pulse Rate 100 H 101 H 101 H Respiratory Rate 15 15 Blood Pressure 163/87 H Pulse Oximetry 100 03/15/18 00:00 03/15/18 00:19 03/15/18 02:00 Temperature 99.3 F Pulse Rate 100 H 100 H Respiratory Rate 15 15 Blood Pressure 154/84 H Pulse Oximetry 100 100 03/15/18 04:00 03/15/18 04:12 03/15/18 06:00 Temperature 99.7 F H Pulse Rate 94 H 97 H Respiratory Rate 15 15 Blood Pressure 136/70 Pulse Oximetry 97 97 Intake & Output 03/14/18 03/15/18 03/15/18 18:59 06:59 18:59 Intake Total 300 / 300 100 / 100 Output Total 2550 / 2550 1300 / 1300 Balance -2250 / -2250 -1200 / -1200 Weight 84.8 kg Intake: IV 300 / 300 100 / 100 Zyvox 600 mg Premix 300 ML @ 300 / 300 300 mls/hr IV.SIG Q12H KRISTIE Rx#: [id number] KCl 20 mEq Premix Inj 20 meq In 100 / 100 100 ml @ 50 mls/hr IV.SIG Q2H PRN Rx#:[id number] Output: Urine 2500 / 2500 Stool 50 / 50 100 / 100 Urine Amount (Catheter) 1200 / 1200 Indwelling Urethral Catheter 1200 / 1200 Other: Date of Last Bowel Movement 03/14/18 03/14/18 Result Diagrams: 03/15/18 04:20 03/15/18 04:20 Other Results: Laboratory Results - last 12 hr 03/14/18 03/15/18 03/15/18 23:36 04:20 04:20 WBC 10.0 D RBC 2.57 L Hgb 7.7 L Hct 23.1 L MCV 89.6 MCH 30.1 MCHC 33.6 RDW 15.3 Plt Count 146 L MPV 7.8 Neut % (Auto) 83.2 H Lymph % (Auto) 8.[address] [place] % (Auto) 6.3 Eos % (Auto) 1.4 Baso % (Auto) 0.4 Neut # (Auto) 8.4 H Lymph # (Auto) 0.[address] [place] # (Auto) 0.6 Eos # (Auto) 0.1 Baso # (Auto) 0.0 WBC Differential . Differential Comment Auto diff final Sodium 146 H Potassium 3.2 L Chloride 108 H Carbon Dioxide 27.9 Anion Gap 10 BUN 17 Creatinine 1.18 Estimated GFR 80 L POC Glucose 126 H Random Glucose 114 H Calcium 7.9 L Phosphorus 3.5 Magnesium 1.6 Total Bilirubin 0.3 AST 43 H ALT 40 Alkaline Phosphatase 145 H Total Protein 6.5 Albumin 1.8 L 03/15/18 04:27 WBC RBC Hgb Hct MCV MCH MCHC RDW Plt Count MPV Neut % (Auto) Lymph % (Auto) [place] % (Auto) Eos % (Auto) Baso % (Auto) Neut # (Auto) Lymph # (Auto) [place] # (Auto) Eos # (Auto) Baso # (Auto) WBC Differential Differential Comment Sodium Potassium Chloride Carbon Dioxide Anion Gap BUN Creatinine Estimated GFR POC Glucose 143 H Random Glucose Calcium Phosphorus Magnesium Total Bilirubin AST ALT Alkaline Phosphatase Total Protein Albumin Imaging: Abdomen/Pelvis CT 02/17/18 00:00 CONCLUSION: 1. Small bilateral pleural effusions and bilateral lower lung opacity again seen. 2. Mild splenomegaly again seen. 3. Gastrostomy tube in place. 4. No evidence of bowel dilatation. 5. Heterotopic ossification about the left hip again seen. 6. Calcified adrenal glands again seen. 7. Enlarged inguinal lymph nodes again seen. Venous Doppler Study 02/18/18 00:00 CONCLUSION: 1. No DVT or SVT. 2. 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 This measures 3.6 x 2.2 x 2.2 cm and is predominantly thrombosed with a small, 6 x 9 mm patent component showing biphasic flow. Central Venous Line 02/22/18 00:00 CONCLUSION: 1. Uncomplicated tunneled central venous Power PICC line placement. 2. The PICC line can be used immediately. Foot MRI 02/22/18 00:00 CONCLUSION: 1. Findings most characteristic of early osteomyelitis at the medial aspect of the first metatarsal head and a tiny focus of probable osteomyelitis at the medial corner of the proximal phalanx great toe. Mild surrounding cellulitis. 2. Previous partial amputation fifth metatarsal. Extremity Arterial Study 02/26/18 00:00 CONCLUSION: 1. Normal ABIs bilaterally. Chest CT 03/05/18 00:00 CONCLUSION: 1. Bilateral effusions and diffuse bilateral consolidation. Acuna Line Insertion 03/05/18 00:00 CONCLUSION: 1. Uncomplicated Acuna catheter placement as above. Head CT 03/11/18 08:30 CONCLUSION: 1. Stable sinus disease. 2. White matter disease and remote infarcts. . Chest X-Ray 03/11/18 08:31 CONCLUSION: Slight improved aeration. Abdomen X-Ray 03/13/18 12:21 CONCLUSION: Bilateral adrenal calcifications. Objective Remarks: GENERAL: Patient is 47 yo intubated and sedated SKIN: Warm and dry. HEAD: Normocephalic. EYES: No scleral icterus. No injection or drainage. NECK: Supple, trachea midline. No JVD or lymphadenopathy. CARDIOVASCULAR: Regular rate and rhythm without murmurs, gallops, or rubs. RESPIRATORY: Breath sounds equal bilaterally. No accessory muscle use. GASTROINTESTINAL: Abdomen soft, non-tender, nondistended. + PEG tube MUSCULOSKELETAL: No cyanosis, or edema. Neuro intubated, doesn't follow commands. Assessment and Plan - Assessment and Plan Plan: 1. VDRF 2. S/p PEA arrest 3. Diffuse bilateral pulmonary infiltrates, ddx aspiration pneumonia and fluid overload. 4. Hypertension. 5. Acute kidney injury. 6. History CVA with left-sided hemiparesis. 7. 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 8. Bilateral foot osteomyelitis methicillin-resistant Staphylococcus aureus. Plan Neuro: off sedation monitor neuro status on Keppra 500 mg t.i.d. for a history of seizures. CT brain 03/11: No acute findings. EEG: Mild slowing Pulm: Continue with ventilatory support and maintain sats> 92%. On PRVC RR 15, TV 550, IT:0.9, PEEP:5, FIO2: 35% Bronchodilators, ICU vent bundle. SBT daily as demond. Check CXR s/p diagnostic US guided thoracentesis 40ml removed ( transudative fluid ) Bronch with BAL 03/06 showed secretions L>R suctioned to clear, BAL performed LLL. BAL: Kleb pneumonia ESBL, Proteus Mirabilis, MRSA CV: Monitor HR and BP and maintain MAP> 65 mmHg. Echo showed EF 60-65% : Monitor renal function, I's and O's , electrolytes replacement per protocol Renal function is improving with Cr: 1.18 today. Will need K replacement today Continue with Free water 300ml Q4 monitor sodium level Lasix 40mg IV daily GI: On Prevacid 30 mg daily. Resume tube feeds- Nepro with goal rate 40ml/hr KUB 03/13: No obstructing bowel gas pattern. ID: Continue with abx (Ertapenem, Zyvox) ID is following. Sputum cx 03/13: GNR Urine cx: Nan Albicans 03/13 Follow up on Blood and urine cx from 03/05- NGTD 03/05 Sputum cx: ESBL Klebsiella BAL cx 03/06: Kleb pneumonia ESBL, Proteus Mirabilis, MRSA Wound culture growing MRSA from osteomyelitis site. Heme: Monitor CBC and coags. s/p transfusion 2u PRBC 03/05 heme occult negative Endo: SSI with Accu-Cheks for glycemic control. GI prophylaxis- On Prevacid DVT prophylaxis- SCD, heparin SQ held for anemia requiring blood transfusion. IV access: RUE single lumen PICC line repositioned by IR 03/05 Condition critical Time spent on critical care excluding procedures 30 minutes
--- NOTE | 2018-03-15 09:29 | XR ---
EXAM DATE: 03/15/2018 9:20 AM EDT AGE/SEX: 47 years / Male INDICATIONS: Short of breath, VDRL CLINICAL DATA: This is the patient's subsequent encounter. Patient reports that signs and symptoms h ave been present for 4 - 6 days and indicates a pain score of Nonresponsive. MEDICAL/SURGICAL HISTORY: Cerebrovascular disease. Hypertension. Diabetes. cardiovascular di sease, anemia CABG. G-tube COMPARISON: [facility], CHEST 1V SINGLE AP, 03/11/2018. . FINDINGS: The cardiac silhouette is enlarged in transverse diameter. Endotracheal tube is in good position abov e the luz maria. There is patchy alveolar disease bilaterally compatible with edema or pneumonia. Modera te size bilateral pleural effusions are identified. CONCLUSION: Diffuse edema versus pneumonia. There has been no significant change when compared to the prior exam. Electronically signed by: Doroteo Matos MD 03/15/2018 9:27 AM EDT
[2018-03-15] MEDS: Ascorbic Acid 500 MG Tablet G-TUBE SCH ×2 (10:14→21:59)
[2018-03-15] MEDS: Senna/Docusate Sodium 8.6/50 MG Tablet G-TUBE SCH ×2 (10:14→21:58)
[2018-03-15] MEDS: levETIRAcetam 500 MG Tablet G-TUBE SCH ×3 (10:15→18:51)
--- NOTE | 2018-03-15 10:50 | P.PNNP ---
Subjective Interval history: Remains orally intubated and minimally responsive off sedation. Creatinine is stable. <Amparo Arriaga - Last Filed: 03/15/18 10:42> Physical Exam Vital signs: Vital Signs 03/14/18 11:00 03/14/18 12:00 03/14/18 14:00 Temperature 99.9 F H Pulse Rate 90 92 H Respiratory Rate 18 13 Blood Pressure 138/72 Pulse Oximetry 92 L 98 03/14/18 16:00 03/14/18 16:18 03/14/18 18:00 Temperature 100.3 F H Pulse Rate 102 H 92 H Respiratory Rate 15 15 Blood Pressure 157/82 H Pulse Oximetry 97 97 03/14/18 19:50 03/14/18 19:52 03/14/18 20:00 Temperature 100.0 F H Pulse Rate 100 H 101 H Respiratory Rate 15 15 15 Blood Pressure 163/87 H Pulse Oximetry 100 100 03/14/18 22:00 03/15/18 00:00 03/15/18 00:19 Temperature 99.3 F Pulse Rate 101 H 100 H Respiratory Rate 15 15 Blood Pressure 154/84 H Pulse Oximetry 100 100 03/15/18 02:00 03/15/18 04:00 03/15/18 04:12 Temperature 99.7 F H Pulse Rate 100 H 94 H Respiratory Rate 15 15 Blood Pressure 136/70 Pulse Oximetry 97 97 03/15/18 06:00 Temperature Pulse Rate 97 H Respiratory Rate Blood Pressure Pulse Oximetry Intake & Output 03/14/18 03/15/18 03/15/18 18:59 06:59 18:59 Intake Total 300 / 300 400 / 400 200 / 200 Output Total 2550 / 2550 1300 / 1300 Balance -2250 / -2250 -900 / -900 200 / 200 Weight 84.8 kg Intake: IV 300 / 300 400 / 400 200 / 200 INVanz Inj 1,000 MG In NS Inj 100 / 100 100 ML @ 100 mls/hr IV.SIG Q24H KRISTIE Rx#:[id number] Zyvox 600 mg Premix 300 ML @ 300 / 300 300 / 300 300 mls/hr IV.SIG Q12H KRISTIE Rx#: [id number] KCl 20 mEq Premix Inj 20 meq In 100 / 100 100 / 100 100 ml @ 50 mls/hr IV.SIG Q2H PRN Rx#:[id number] Output: Urine 2500 / 2500 Stool 50 / 50 100 / 100 Urine Amount (Catheter) 1200 / 1200 Indwelling Urethral Catheter 1200 / 1200 Other: Date of Last Bowel Movement 03/14/18 03/14/18 Narrative: GENERAL: Orally intubated on no sedation SKIN: Warm and dry. HEAD: Normocephalic. EYES: No scleral icterus. No injection or drainage. NECK: Supple, trachea midline. No JVD or lymphadenopathy. CARDIOVASCULAR: Regular rate and rhythm without murmurs, gallops, or rubs. RESPIRATORY: Breath sounds equal bilaterally. No accessory muscle use. GASTROINTESTINAL: Abdomen soft, non-tender, nondistended. + PEG tube MUSCULOSKELETAL: No cyanosis, or edema. - Urinary Catheter Management Indwelling Urethral Catheter Cath placed during this visit: yes Reason for continuing: Acute urinary retention Insertion date: 03/05/18 Insertion time: 08:00 <Amparo Arriaga - Last Filed: 03/15/18 10:42> Vital signs: Vital Signs 03/14/18 16:00 03/14/18 16:18 03/14/18 18:00 Temperature 100.3 F H Pulse Rate 102 H 92 H Respiratory Rate 15 15 Blood Pressure 157/82 H Pulse Oximetry 97 97 03/14/18 19:50 03/14/18 19:52 03/14/18 20:00 Temperature 100.0 F H Pulse Rate 100 H 101 H Respiratory Rate 15 15 15 Blood Pressure 163/87 H Pulse Oximetry 100 100 03/14/18 22:00 03/15/18 00:00 03/15/18 00:19 Temperature 99.3 F Pulse Rate 101 H 100 H Respiratory Rate 15 15 Blood Pressure 154/84 H Pulse Oximetry 100 100 03/15/18 02:00 03/15/18 04:00 03/15/18 04:12 Temperature 99.7 F H Pulse Rate 100 H 94 H Respiratory Rate 15 15 Blood Pressure 136/70 Pulse Oximetry 97 97 03/15/18 06:00 03/15/18 12:51 Temperature Pulse Rate 97 H Respiratory Rate 15 Blood Pressure Pulse Oximetry 93 L Intake & Output 03/14/18 03/15/18 03/15/18 18:59 06:59 18:59 Intake Total 300 / 300 400 / 400 1200 / 1200 Output Total 2550 / 2550 1300 / 1300 Balance -2250 / -2250 -900 / -900 1200 / 1200 Weight 84.8 kg Intake: IV 300 / 300 400 / 400 1200 / 1200 D5W/1/4 NS Inj 1,000 ML @ 50 1000 / 1000 mls/hr IV.CONT .Q20H KRISTIE Rx#: [id number] INVanz Inj 1,000 MG In NS Inj 100 / 100 100 ML @ 100 mls/hr IV.SIG Q24H KRISTIE Rx#:[id number] Zyvox 600 mg Premix 300 ML @ 300 / 300 300 / 300 300 mls/hr IV.SIG Q12H KRISTIE Rx#: [id number] KCl 20 mEq Premix Inj 20 meq In 100 / 100 100 / 100 100 ml @ 50 mls/hr IV.SIG Q2H PRN Rx#:[id number] Output: Urine 2500 / 2500 Stool 50 / 50 100 / 100 Urine Amount (Catheter) 1200 / 1200 Indwelling Urethral Catheter 1200 / 1200 Other: Date of Last Bowel Movement 03/14/18 03/14/18 - Urinary Catheter Management Indwelling Urethral Catheter Cath placed during this visit: no <Juan Gregg S - Last Filed: 03/15/18 15:07> Assessment and Plan - Assessment (1) Acute kidney injury Code(s): N17.9 - Acute kidney failure, unspecified Status: Acute Plan: Acute kidney injury with a creatinine of 2.76 on day of consult with worsening since the . Acute kidney injury possible related to vancomycin toxicity last dose on the 24 Baseline Creatinine noted to be 1.07 on 02/26. CT of pelvis on admission with kidney of normal in size and shape and no evidence of mass or hydronephrosis. Complements and serology normal SPEP abnormal, Immunofixation also abnormal Creatinine is now at baseline Plan Continue lasix for edema. Avoid nephrotoxins including IV contrast, NSAIDS,and aminoglycosides. Maintain strict I+o, maintain indwelling Dudley catheter Continue to monitor urinary output and BMP. Will consult hematology for abnormal SPEP and immunofixation for further workup. Could possible have myeloma, mgus or light chain disease (2) Anemia of chronic disorder Code(s): D63.8 - Anemia in other chronic diseases classified elsewhere Status : Acute Plan: HGB stable Monitoring (3) Hypernatremia Code(s): E87.0 - Hyperosmolality and hypernatremia Status: Acute Plan: Sodium level improving at 146 On D5 1/4 NS at 50ml/hr Will decrease free water flushes as patient is not tolerating tube feeding. <Amparo Arriaga - Last Filed: 03/15/18 10:42> - Assessment (1) Acute kidney injury Code(s): N17.9 - Acute kidney failure, unspecified Status: Acute (2) Anemia of chronic disorder Code(s): D63.8 - Anemia in other chronic diseases classified elsewhere Status : Acute (3) Hypernatremia Code(s): E87.0 - Hyperosmolality and hypernatremia Status: Acute - Attending Attestation Patient seen and examined; records reviewed; agree with the plan and recommendations of the [employer] <Juan Gregg - Last Filed: 03/15/18 15:07>
--- NOTE | 2018-03-15 11:18 | P.PNPL ---
Subjective Interval history: On Vent, fi02 45% Off sedation Opens eyes No N,V Low grade fever Physical Exam Vital signs: Vital Signs 03/14/18 12:00 03/14/18 14:00 03/14/18 16:00 Temperature 99.9 F H 100.3 F H Pulse Rate 90 92 H 102 H Respiratory Rate 13 15 Blood Pressure 138/72 157/82 H Pulse Oximetry 98 97 03/14/18 16:18 03/14/18 18:00 03/14/18 19:50 Temperature Pulse Rate 92 H Respiratory Rate 15 15 Blood Pressure Pulse Oximetry 97 100 03/14/18 19:52 03/14/18 20:00 03/14/18 22:00 Temperature 100.0 F H Pulse Rate 100 H 101 H 101 H Respiratory Rate 15 15 Blood Pressure 163/87 H Pulse Oximetry 100 03/15/18 00:00 03/15/18 00:19 03/15/18 02:00 Temperature 99.3 F Pulse Rate 100 H 100 H Respiratory Rate 15 15 Blood Pressure 154/84 H Pulse Oximetry 100 100 03/15/18 04:00 03/15/18 04:12 03/15/18 06:00 Temperature 99.7 F H Pulse Rate 94 H 97 H Respiratory Rate 15 15 Blood Pressure 136/70 Pulse Oximetry 97 97 Intake & Output 03/14/18 03/15/18 03/15/18 18:59 06:59 18:59 Intake Total 300 / 300 400 / 400 200 / 200 Output Total 2550 / 2550 1300 / 1300 Balance -2250 / -2250 -900 / -900 200 / 200 Weight 84.8 kg Intake: IV 300 / 300 400 / 400 200 / 200 INVanz Inj 1,000 MG In NS Inj 100 / 100 100 ML @ 100 mls/hr IV.SIG Q24H KRISTIE Rx#:[id number] Zyvox 600 mg Premix 300 ML @ 300 / 300 300 / 300 300 mls/hr IV.SIG Q12H KRISTIE Rx#: [id number] KCl 20 mEq Premix Inj 20 meq In 100 / 100 100 / 100 100 ml @ 50 mls/hr IV.SIG Q2H PRN Rx#:[id number] Output: Urine 2500 / 2500 Stool 50 / 50 100 / 100 Urine Amount (Catheter) 1200 / 1200 Indwelling Urethral Catheter 1200 / 1200 Other: Date of Last Bowel Movement 03/14/18 03/14/18 GENERAL: WBWN On Vent SKIN: Warm and dry. HEAD: Normocephalic. EYES: No scleral icterus. No injection or drainage. NECK: Supple, trachea midline. No JVD or lymphadenopathy. CARDIOVASCULAR: Regular rate and rhythm without murmurs, gallops, or rubs. RESPIRATORY: Breath sounds equal bilaterally. No accessory muscle use. GASTROINTESTINAL: Abdomen soft, non-tender, nondistended. MUSCULOSKELETAL: No cyanosis, or edema. Contracture left side BACK: Nontender without obvious deformity. No CVA tenderness. - Urinary Catheter Management Indwelling Urethral Catheter Cath placed during this visit: yes Reason for continuing: Acute urinary retention Insertion date: 03/05/18 Insertion time: 08:00 Assessment and Plan - Plan IMPRESSION: 1. Bilateral lung infiltrates. 2. Small pleural effusion. 3. Osteomyelitis of both feet. 4. Diabetes mellitus. 5. Cerebrovascular accident with left-sided contracture. 6. VDRF 7. S/P cardiopulm arrest. PLAN: Vent Support Cont Abx Aerosol nebs monitor Pl eff Monitor renal functions. Tube feeding
[2018-03-15] MEDS: Dextrose 5%/NaCl 0.225% Inj 1,000 ML IV.CONT SCH (15:00)
--- NOTE | 2018-03-15 19:46 | P.PNID ---
Subjective Remarks: off pressors, on vent FiO2 45% Febrile secretions improved Sputum with carbapenem R and ESBL+ Kleb growing ESBL, MRSA and Protes S to Ertapenem from BAL pleural fluid negative @ 72 hrs Nan in the urine Antibiotics: meropenem zyvox Allergies/Adverse Reactions: Allergies No Known Allergies Allergy (Unknown, Uncoded 01/06/18 21:04) Objective Vital Signs 03/14/18 19:50 03/14/18 19:52 03/14/18 20:00 Temperature 100.0 F H Pulse Rate 100 H 101 H Respiratory Rate 15 15 15 Blood Pressure 163/87 H Pulse Oximetry 100 100 03/14/18 21:00 03/14/18 22:00 03/14/18 23:00 Temperature Pulse Rate 99 H 101 H 99 H Respiratory Rate Blood Pressure 158/82 H 151/79 H 152/77 H Pulse Oximetry 100 100 100 03/15/18 00:00 03/15/18 00:19 03/15/18 01:00 Temperature 99.3 F Pulse Rate 100 H 100 H Respiratory Rate 15 15 Blood Pressure 154/84 H 128/69 Pulse Oximetry 100 100 100 03/15/18 02:00 03/15/18 03:00 03/15/18 04:00 Temperature 99.7 F H Pulse Rate 100 H 95 H 94 H Respiratory Rate 15 Blood Pressure 132/75 132/70 136/70 Pulse Oximetry 98 96 97 03/15/18 04:12 03/15/18 05:00 03/15/18 06:00 Temperature Pulse Rate 99 H 97 H Respiratory Rate 15 Blood Pressure 138/68 127/64 Pulse Oximetry 97 98 98 03/15/18 07:00 03/15/18 08:00 03/15/18 09:00 Temperature Pulse Rate 97 H 91 H 90 Respiratory Rate Blood Pressure 126/66 129/67 117/65 Pulse Oximetry 98 98 83 L 03/15/18 10:00 03/15/18 11:00 03/15/18 12:00 Temperature Pulse Rate 84 93 H 94 H Respiratory Rate Blood Pressure 121/62 115/63 Pulse Oximetry 86 L 94 L 03/15/18 12:01 03/15/18 12:51 03/15/18 13:00 Temperature Pulse Rate 93 H 94 H Respiratory Rate 15 Blood Pressure 120/60 127/71 Pulse Oximetry 93 L 03/15/18 14:00 03/15/18 15:00 03/15/18 16:00 Temperature Pulse Rate 93 H 97 H 97 H Respiratory Rate Blood Pressure 125/71 133/78 131/72 Pulse Oximetry 95 03/15/18 16:51 03/15/18 17:00 03/15/18 18:00 Temperature Pulse Rate 88 96 H Respiratory Rate 15 Blood Pressure 157/83 H 131/72 Pulse Oximetry 97 96 98 Intake & Output 03/15/18 03/15/18 03/16/18 06:59 18:59 06:59 Intake Total 400 / 400 2322 / 2322 Output Total 1300 / 1300 3800 / 3800 Balance -900 / -900 -1478 / -1478 Weight 84.8 kg Intake: IV 400 / 400 1200 / 1200 D5W/1/4 NS Inj 1,000 ML @ 50 1000 / 1000 mls/hr IV.CONT .Q20H KRISTIE Rx#: [id number] INVanz Inj 1,000 MG In NS Inj 100 / 100 100 ML @ 100 mls/hr IV.SIG Q24H KRISTIE Rx#:[id number] Zyvox 600 mg Premix 300 ML @ 300 / 300 300 mls/hr IV.SIG Q12H KRISTIE Rx#: [id number] KCl 20 mEq Premix Inj 20 meq In 100 / 100 100 / 100 100 ml @ 50 mls/hr IV.SIG Q2H PRN Rx#:[id number] Tube Feeding 522 / 522 Water Bolus Amount 600 / 600 Output: Urine 3200 / 3200 Stool 100 / 100 600 / 600 Urine Amount (Catheter) 1200 / 1200 Indwelling Urethral Catheter 1200 / 1200 Other: Date of Last Bowel Movement 03/14/18 03/15/18 03/13/18 11:10 Sputum - Endotracheal Gram Stain - Final 03/13/18 11:10 Sputum - Endotracheal Sputum Culture - Preliminary Klebsiella pneumoniae Multidrug Resistant 03/15/18 10:12 Blood - Peripheral Aerobic Blood Culture - Pending 03/15/18 10:12 Blood - Peripheral Anaerobic Blood Culture - Pending 03/15/18 10:07 Blood - Peripheral Aerobic Blood Culture - Pending 03/15/18 10:07 Blood - Peripheral Anaerobic Blood Culture - Pending 03/13/18 11:10 Catheterized Urine Urine Culture - Final Nan albicans 03/06/18 15:00 Bronchial Washings - Left Lower Lobe Fungal Smear - Final No fungal elements seen 03/06/18 15:00 Bronchial Washings - Left Lower Lobe Fungal Culture - Preliminary No growth in 1 week 03/06/18 15:00 Bronchial Washings - Left Lower Lobe Acid Fast Bacilli Smear - Final No acid fast bacilli seen 03/06/18 15:00 Bronchial Washings - Left Lower Lobe Mycobacterial Culture - Preliminary No growth in 1 week Lab - Hematology Results 03/14/18 03/15/18 04:20 04:20 WBC 6.0 10.0 D RBC 2.57 L 2.57 L Hgb 7.8 L 7.7 L Hct 23.3 L 23.1 L MCV 90.7 89.6 MCH 30.3 30.1 MCHC 33.4 33.6 RDW 15.2 15.3 Plt Count 149 L 146 L MPV 8.3 7.8 Neut % (Auto) 75.8 H 83.2 H Lymph % (Auto) 16.2 8.7 L Dixon % (Auto) 5.7 6.3 Eos % (Auto) 2.1 1.4 Baso % (Auto) 0.2 0.4 Neut # (Auto) 4.5 8.4 H Lymph # (Auto) 1.0 0.9 L Dixon # (Auto) 0.3 0.6 Eos # (Auto) 0.1 0.1 Baso # (Auto) 0.0 0.0 WBC Differential . . Differential Comment Auto diff final Auto diff final Lab - Chemistry Results 03/13/18 03/13/18 03/14/18 21:25 23:27 04:20 Sodium 147 H Potassium 3.6 Chloride 110 H Carbon Dioxide 27.0 Anion Gap 10 BUN 23 H Creatinine 1.27 Estimated GFR 74 L POC Glucose 89 88 Random Glucose 54 L Calcium 8.5 Phosphorus 3.9 Magnesium 1.8 Total Bilirubin 0.4 AST 48 H ALT 43 Alkaline Phosphatase 146 H Total Protein 6.1 L Albumin 1.9 L 03/14/18 03/14/18 03/14/18 04:56 05:24 07:38 Sodium Potassium Chloride Carbon Dioxide Anion Gap BUN Creatinine Estimated GFR POC Glucose 66 L 138 H 87 Random Glucose Calcium Phosphorus Magnesium Total Bilirubin AST ALT Alkaline Phosphatase Total Protein Albumin 03/14/18 03/14/18 03/14/18 12:30 14:58 20:09 Sodium Potassium Chloride Carbon Dioxide Anion Gap BUN Creatinine Estimated GFR POC Glucose 95 99 109 Random Glucose Calcium Phosphorus Magnesium Total Bilirubin AST ALT Alkaline Phosphatase Total Protein Albumin 03/14/18 03/15/18 03/15/18 23:36 04:20 04:27 Sodium 146 H Potassium 3.2 L Chloride 108 H Carbon Dioxide 27.9 Anion Gap 10 BUN 17 Creatinine 1.18 Estimated GFR 80 L POC Glucose 126 H 143 H Random Glucose 114 H Calcium 7.9 L Phosphorus 3.5 Magnesium 1.6 Total Bilirubin 0.3 AST 43 H ALT 40 Alkaline Phosphatase 145 H Total Protein 6.5 Albumin 1.8 L Imaging: ITS Impressions Abdomen/Pelvis CT 02/17/18 00:00 CONCLUSION: 1. Small bilateral pleural effusions and bilateral lower lung opacity again seen. 2. Mild splenomegaly again seen. 3. Gastrostomy tube in place. 4. No evidence of bowel dilatation. 5. Heterotopic ossification about the left hip again seen. 6. Calcified adrenal glands again seen. 7. Enlarged inguinal lymph nodes again seen. Venous Doppler Study 02/18/18 00:00 CONCLUSION: 1. No DVT or SVT. 2. 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 This measures 3.6 x 2.2 x 2.2 cm and is predominantly thrombosed with a small, 6 x 9 mm patent component showing biphasic flow. Central Venous Line 02/22/18 00:00 CONCLUSION: 1. Uncomplicated tunneled central venous Power PICC line placement. 2. The PICC line can be used immediately. Foot MRI 02/22/18 00:00 CONCLUSION: 1. Findings most characteristic of early osteomyelitis at the medial aspect of the first metatarsal head and a tiny focus of probable osteomyelitis at the medial corner of the proximal phalanx great toe. Mild surrounding cellulitis. 2. Previous partial amputation fifth metatarsal. Extremity Arterial Study 02/26/18 00:00 CONCLUSION: 1. Normal ABIs bilaterally. Chest CT 03/05/18 00:00 CONCLUSION: 1. Bilateral effusions and diffuse bilateral consolidation. Acuna Line Insertion 03/05/18 00:00 CONCLUSION: 1. Uncomplicated Acuna catheter placement as above. Head CT 03/11/18 08:30 CONCLUSION: 1. Stable sinus disease. 2. White matter disease and remote infarcts. . Abdomen X-Ray 03/13/18 12:21 CONCLUSION: Bilateral adrenal calcifications. Chest X-Ray 03/15/18 08:22 CONCLUSION: Diffuse edema versus pneumonia. There has been no significant change when compared to the prior exam. Physical Exam: GENERAL: NAD SKIN: Warm and dry. HEAD: Atraumatic. Normocephalic. EYES: Pupils equal and round. No scleral icterus. No injection or drainage. ENT: No nasal bleeding or discharge. Mucous membranes pink and moist. CARDIOVASCULAR: Regular rate and rhythm. RESPIRATORY: No accessory muscle use. Diffuse rhonchi to auscultation. Breath sounds equal bilaterally. GASTROINTESTINAL: Abdomen soft, non-tender, distended. Hepatic and splenic margins not palpable. PEG in place, MUSCULOSKELETAL: Extremities without clubbing, cyanosis, or edema. No obvious deformities. B/l feet with dressings in place + edema NEUROLOGICAL: sedated L side hemiplegia, contracted PSYCHIATRIC: unable to assess Assessment and Plan - Plan B/L foot osteomyelitis MRSA, on vancomycin - trough level too high Anemia likely 2/2 vanco Mild CEDRIC, likely 2/2 vanco - pt has 2 adverse effects from vancomycin so far, I will recommend to avoid vancomycin Aspiration PNA - growing ESBL + ? carbapenem R kleb pneumo, MRSA and Proteus acute VDRF Diarreha, C.diff negative CEDRIC : GFR 80 today -no eos in urine Funguria cont ZYvox change Ertapenem to AVYCAZ start fluconazol delia ARTEAGA
--- NOTE | 2018-03-15 21:02 | P.CON ---
History of Present Illness Service: Oncology Consult date: 03/15/18 Reason for Consult: Abnromal SPEP and CECILIA, Anemia Primary Care Provider: Doroteo Mackey MD Family Provider: Doroteo Mackey MD Chief Complaint: Abnormal lab including hemoglobin of 6.2 History of Present Illness: This is a 47-year-old male who is acutely ill. He is currently on the ventilator. He has multiorgan failure. He has a history of CVA with left- sided hemiparesis. He has PEG tube placement. He was brought to the emergency room with worsening anemia. He was found to be in acute renal failure. The patient had PEA arrest. ACLS protocol was initiated and patient was subsequently resuscitated. He is hypotensive and on pressors. He has sepsis and pneumonia bronchioloalveolar lavage culture grew ESBL klebsiella, Proteus mirabilis and MRSA. He has a history of osteomyelitis of bilateral foot. Wound cultures growing MRSA from the osteomyelitis site. He has undergone ultrasound-guided thoracentesis with removal of 40 cc of fluid which was transudative. He has been he has been seen by multiple specialties. With respect to his anemia he has been receiving packed red blood cell transfusions. Hemoccult was negative. Patient had serum protein electrophoresis testing as well as immunoelectrophoresis. The results were interpreted as abnormal and hematology has been consulted to make further recommendations. Patient is currently intubated. He is arousable and moving his arms and opens his eyes. He is unable to give review of systems. Family members were not present during this evaluation. Review of Systems unobtainable due to endotracheal tube, unobtainable due to mental status PMFSH - History History Provided By: Family Member - Medical / Surgical Hx Neg / Unobtainable Medical Problems Denied: Unable to Obtain - Medical History Medical History: Medical History (Last Reviewed 03/15/18 @ 21:11 by Ramón Bruce MD) Gastrostomy tube in place (Acute) Anemia CVA (cerebral vascular accident) Depression Diabetes HLD (hyperlipidemia) Hemiparesis Hemiplegia Hypertension - Family History Family History: Family History (Last Reviewed 03/15/18 @ 21:11 by Ramón Bruce MD) Other Unknown family medical history - Tobacco History Second Hand Smoke Exposure: No Smoking Status: Never smoker Tobacco Type: Cigarettes - Alcohol History How Often Do You Have a Drink Containing Alcohol: Never - Substance Use History Substance History: No History of Abuse - Travel History Recent Travel in the [place] Within the Last 8 Weeks: No Recent Travel Out of the Country Within the Last 8 Weeks: No - Immunization History Tetanus Immunization: Unable to Assess Hx Influenza Vaccine This Season: Unable to Assess Medications and Allergies Active Medications: Active Medications Acetaminophen (Tylenol) 650 mg PO Q4H PRN PRN Reason: FEVER Last Admin: 03/15/18 06:44 Dose: 650 mg Al Hydroxide/Mg Hydroxide (Milk Of Magnsimón Liq) 30 ml G-TUBE Q12H PRN PRN Reason: Mild Constipation Albuterol (Duoneb Neb (Prn)) 1 ampul NEB Q4HR NEB PRN PRN Reason: SHORTNESS OF BREATH/WHEEZING Last Admin: 03/14/18 19:52 Dose: 1 ampul Amlodipine Besylate (Norvasc) 10 mg G-TUBE DAILY [facility] Last Admin: 03/05/18 09:12 Dose: Not Given Ascorbic Acid (Vitamin C) 500 mg G-TUBE BID [facility] Last Admin: 03/15/18 10:14 Dose: 500 mg Atorvastatin Calcium (Lipitor) 10 mg G-TUBE HS [facility] Last Admin: 03/14/18 20:05 Dose: 10 mg Bisacodyl (Dulcolax Supp) 10 mg RECTAL DAILY PRN PRN Reason: SEVERE CONSITIPATION Carvedilol (Coreg) 25 mg G-TUBE BID [facility] Last Admin: 03/05/18 09:11 Dose: Not Given Dextrose (D50w Vial) 50 ml IV.PUSH UNSCH PRN PRN Reason: PER HYPOGLYCEMIA PROTOCOL Last Admin: 03/14/18 05:02 Dose: 50 ml Enalaprilat (Vasotec Inj) 2.5 mg IV.PUSH Q6H PRN PRN Reason: SBP>160, DBP>90 Last Admin: 02/21/18 01:34 Dose: 2.5 mg Escitalopram Oxalate (Lexapro) 15 mg G-TUBE DAILY [facility] Last Admin: 03/06/18 08:05 Dose: 15 mg Fluconazole (Diflucan) 200 mg PO DAILY [facility] Furosemide (Lasix Inj) 40 mg IV.PUSH DAILY [facility] Last Admin: 03/15/18 10:15 Dose: 40 mg Glucagon (Glucagon Inj) 1 mg OTHER PRN PRN PRN Reason: for Hypoglycemia Protocol Heparin Sodium (Porcine) (Heparin Inj) 5,000 units SQ Q12HR [facility] Last Admin: 03/05/18 09:25 Dose: 5,000 units Hydralazine HCl (Apresoline) 100 mg G-TUBE TID [facility] Last Admin: 03/05/18 09:11 Dose: Not Given Fentanyl (Fentanyl 10 Mcg/Ml Premix Drip) 2,500 mcg in 250 mls @ 5 mls/hr IV.SIG TITRATE PRN; Protocol PRN Reason: Per Protocol Last Titration: 03/11/18 09:00 Dose: Infused Midazolam HCl (Versed Inj) 50 mg in 50 mls @ 2 mls/hr IV.CONT TITRATE PRN; Protocol PRN Reason: Per Protocol Last Titration: 03/06/18 16:04 Dose: Infused Linezolid (Zyvox 600 Mg Premix) 300 mls @ 300 mls/hr IV.SIG Q12H [facility] Last Admin: 03/15/18 10:15 Dose: 300 mls/hr Magnesium Sulfate Inj 4 gm/ (Sodium Chloride) 100 mls @ 50 mls/hr IV.SIG UNSCH PRN PRN Reason: For Magnesium 0.9 - 1.1 mg/dL Magnesium Sulfate Inj 2 gm/ (Sodium Chloride) 100 mls @ 50 mls/hr IV.SIG UNSCH PRN PRN Reason: For Magnesium 1.2 - 1.6 mg/dL Potassium Chloride (Kcl 40 Meq Premix Inj) 40 meq in 100 mls @ 25 mls/hr IV.SIG Q2H PRN PRN Reason: For Potassium 2.8 - 3.2 mEq/L Potassium Chloride (Kcl 20 Meq Premix Inj) 20 meq in 100 mls @ 50 mls/hr IV.SIG Q2H PRN PRN Reason: For Potassium 3.3 - 3.5 mEq/L Last Infusion: 03/14/18 20:05 Dose: Infused Potassium Chloride (Kcl 40 Meq Premix Inj) 40 meq in 100 mls @ 25 mls/hr IV.SIG UNSCH PRN PRN Reason: For Potassium 3.3 - 3.5 mEq/L Potassium Chloride (Kcl 20 Meq Premix Inj) 20 meq in 100 mls @ 50 mls/hr IV.SIG Q2H PRN PRN Reason: For Potassium 2.8 - 3.2 mEq/L Last Admin: 03/15/18 10:34 Dose: 50 mls/hr Potassium Phosphate 30 mmol/ (Sodium Chloride) 260 mls @ 42 mls/hr IV.SIG UNSCH PRN PRN Reason: SEE LABEL COMMENTS Sodium Phosphate 30 mmol/ (Sodium Chloride) 260 mls @ 42 mls/hr IV.SIG UNSCH PRN PRN Reason: For Phosphorus < 2.5 mg/dL Dextrose/Sodium Chloride (D5w/1/4 Ns Inj) 1,000 mls @ 50 mls/hr IV.CONT .Q20H [facility] Last Admin: 03/15/18 15:00 Dose: 50 mls/hr Ceftazidime/Avibactam 2.5 gm/ (Sodium Chloride) 50 mls @ 25 mls/hr IV.SIG Q8H KRISTIE Insulin Human Regular (Novolin R Correctional Sugar Inj) 0 units SQ Q4HR [facility]; Protocol Last Admin: 03/15/18 16:02 Dose: Not Given Lactulose (Lactulose Liq) 30 ml G-TUBE DAILY PRN PRN Reason: SEVERE CONSITIPATION Lansoprazole (Prevacid Solutab) 30 mg NG/OG DAILY [facility] Last Admin: 03/15/18 10:14 Dose: 30 mg Levetiracetam (Keppra) 500 mg G-TUBE TID [facility] Last Admin: 03/15/18 18:51 Dose: 500 mg Magnesium Oxide (Mag-Ox) 800 mg PO UNSCH PRN PRN Reason: For Magnesium 1.2 - 1.6 mg/dL Miscellaneous (Pill Splitter) 1 each OTHER ONCE [facility] Ondansetron HCl (Zofran Inj) 4 mg IV.PUSH Q6H PRN PRN Reason: NAUSEA OR VOMITING Last Admin: 03/14/18 20:06 Dose: 4 mg Potassium Bicarb/Potassium Chloride (K-Lyte Cl Eff) 50 meq PO UNSCH PRN PRN Reason: For Potassium 3.3 - 3.5 mEq/L Potassium Phosphate (K-Phos Original) 2,000 mg PO Q4H PRN PRN Reason: Phosphorus Less Than 2.5 mg/dL Potassium Phosphate (K-Phos Original) 2,000 mg PO UNSCH PRN PRN Reason: SEE LABEL COMMENTS Senna/Docusate Sodium (Jessie-Colace) 1 tab G-TUBE BID [facility] Last Admin: 03/15/18 10:14 Dose: 1 tab Sennosides (Senokot) 17.2 mg PO Q12H PRN PRN Reason: Moderate Constipation Sterile Water (Free Water) 200 ml G-TUBE Q6HR KRISTIE Last Admin: 03/15/18 18:51 Dose: 200 ml Temazepam (Restoril) 15 mg PO HS PRN PRN Reason: INSOMNIA Last Admin: 03/01/18 21:33 Dose: 15 mg Terbutaline Sulfate (Brethine Inj) 1 mg SQ UNSCH PRN PRN Reason: For Extravasation Allergies Allergy/AdvReac Type Severity Reaction Status Date / Time No Known Allergies Allergy Unknown Uncoded 01/06/18 21:04 Home Medications Medication Instructions Recorded Confirmed Type ascorbic acid (vitamin C) [Vitamin 500 mg PO BID 01/15/18 02/17/18 History C] aspirin [Aspir-81] 81 mg FEEDING TUBE DAILY 01/15/18 02/17/18 History atorvastatin 10 mg FEEDING TUBE HS 01/15/18 02/17/18 History carvedilol [Coreg] 25 mg FEEDING TUBE BID 01/15/18 02/17/18 History escitalopram oxalate 15 mg FEEDING TUBE DAILY 01/15/18 02/17/18 History gentamicin 1 applic TOPICAL QID 01/15/18 02/17/18 History hydralazine 100 mg PO TID 01/15/18 02/17/18 History insulin detemir U-100 [Levemir 5 unit SUB-Q BID 01/15/18 02/17/18 History U-100 Insulin] ipratropium-albuterol 3 ml INHALATION Q6-8H PRN 01/15/18 02/17/18 History levetiracetam 500 mg PO TID 01/15/18 02/17/18 History melatonin 3 mg FEEDING TUBE HS 01/15/18 02/17/18 History insulin aspart U-100 [Novolog 1 sliding scale dose SUB-Q UD 02/17/18 02/17/18 History U-100 Insulin aspart] Physical Exam Vital signs: Vital Signs 03/14/18 22:00 03/14/18 23:00 03/15/18 00:00 Temperature 99.3 F Pulse Rate 101 H 99 H 100 H Respiratory Rate 15 Blood Pressure 151/79 H 152/77 H 154/84 H Pulse Oximetry 100 100 100 03/15/18 00:19 03/15/18 01:00 03/15/18 02:00 Temperature Pulse Rate 100 H 100 H Respiratory Rate 15 Blood Pressure 128/69 132/75 Pulse Oximetry 100 100 98 03/15/18 03:00 03/15/18 04:00 03/15/18 04:12 Temperature 99.7 F H Pulse Rate 95 H 94 H Respiratory Rate 15 15 Blood Pressure 132/70 136/70 Pulse Oximetry 96 97 97 03/15/18 05:00 03/15/18 06:00 03/15/18 07:00 Temperature Pulse Rate 99 H 97 H 97 H Respiratory Rate Blood Pressure 138/68 127/64 126/66 Pulse Oximetry 98 98 98 03/15/18 08:00 03/15/18 09:00 03/15/18 10:00 Temperature Pulse Rate 91 H 90 84 Respiratory Rate Blood Pressure 129/67 117/65 121/62 Pulse Oximetry 98 83 L 86 L 03/15/18 11:00 03/15/18 12:00 03/15/18 12:01 Temperature Pulse Rate 93 H 94 H 93 H Respiratory Rate Blood Pressure 115/63 120/60 Pulse Oximetry 94 L 03/15/18 12:51 03/15/18 13:00 03/15/18 14:00 Temperature Pulse Rate 94 H 93 H Respiratory Rate 15 Blood Pressure 127/71 125/71 Pulse Oximetry 93 L 03/15/18 15:00 03/15/18 16:00 03/15/18 16:51 Temperature Pulse Rate 97 H 97 H Respiratory Rate 15 Blood Pressure 133/78 131/72 Pulse Oximetry 95 97 03/15/18 17:00 03/15/18 18:00 Temperature Pulse Rate 88 96 H Respiratory Rate Blood Pressure 157/83 H 131/72 Pulse Oximetry 96 98 Intake & Output 03/15/18 03/15/18 03/16/18 06:59 18:59 06:59 Intake Total 400 / 400 2322 / 2322 Output Total 1300 / 1300 3800 / 3800 Balance -900 / -900 -1478 / -1478 Weight 84.8 kg Intake: IV 400 / 400 1200 / 1200 D5W/1/4 NS Inj 1,000 ML @ 50 1000 / 1000 mls/hr IV.CONT .Q20H KRISTIE Rx#: [id number] INVanz Inj 1,000 MG In NS Inj 100 / 100 100 ML @ 100 mls/hr IV.SIG Q24H KRISTIE Rx#:[id number] Zyvox 600 mg Premix 300 ML @ 300 / 300 300 mls/hr IV.SIG Q12H KRISTIE Rx#: [id number] KCl 20 mEq Premix Inj 20 meq In 100 / 100 100 / 100 100 ml @ 50 mls/hr IV.SIG Q2H PRN Rx#:[id number] Tube Feeding 522 / 522 Water Bolus Amount 600 / 600 Output: Urine 3200 / 3200 Stool 100 / 100 600 / 600 Urine Amount (Catheter) 1200 / 1200 Indwelling Urethral Catheter 1200 / 1200 Other: Date of Last Bowel Movement 03/14/18 03/15/18 - Constitutional Comments: ill appearing - Routine HEENT Exam Head: Present: normocephalic Eye: Present: EOMI ENT: Present: mucous membranes moist - Routine Neck Exam Present: supple - Routine Respiratory Exam Comments: b/l coarse sounds on exp and inspiration upperr lung ruiz - Routine Cardiovascular Exam Present: RRR, S1, S2 - Routine Abdominal Exam Comments: bowel sounds absent , distended, - Routine Skin Exam Present: intact - Routine Neurological Exam on ventilator - Detailed Neurological Exam: Coma Scale Eye Opening: To sound - Routine Psychiatric Exam Present: unable to assess - Urinary Catheter Management Indwelling Urethral Catheter Cath placed during this visit: yes Reason for continuing: Acute urinary retention Insertion date: 03/05/18 Insertion time: 08:00 Assessment and Plan - Assessment (1) End stage renal disease Code(s): N18.6 - End stage renal disease Status: Acute (2) GI bleed Code(s): K92.2 - Gastrointestinal hemorrhage, unspecified Status: Acute (3) Anemia Code(s): D64.9 - Anemia, unspecified Status: Acute (4) Osteomyelitis Code(s): M86.9 - Osteomyelitis, unspecified Status: Acute (5) Diabetes Code(s): E11.9 - Type 2 diabetes mellitus without complications Status: Acute (6) Anemia of chronic disorder Code(s): D63.8 - Anemia in other chronic diseases classified elsewhere Status : Acute (7) Acute on chronic anemia Code(s): D64.9 - Anemia, unspecified Status: Acute (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 He is on a ventilator. He has undergone cardiac arrest. Status post ACLS protocol. He was successfully resuscitated. He has respiratory failure. He has osteomyelitis of the foot. He also has sepsis and pneumonia. He has candiduria. He is currently on multiple antibiotics. He has a history of stroke and chronic anemia. He developed acute on chronic anemia. He has acute on chronic kidney disease. During the course of his workup serum protein electrophoresis and immunoelectrophoresis was performed. These tests were interpreted as abnormal and hematology has been consulted to make further recommendations: #1 abnormal SPEP- I reviewed the results and there is no monoclonal gammopathy. Results of the serum protein electrophoresis are represents findings of inflammation and hypoalbuminemia as a result of his current clinical status. Hyper gammaglobulin is noted which can occur in the setting of acute infection and inflammation. kappa chains and lambda light chains are also elevated which also signifies a reactive process. Kapa/Lambda ratio is normal at 1.54. Immunoelectrophoresis is still pending #2 normocytic anemia--anemia studies reveal low iron saturation and low serum iron. TIBC is also low and ferritin is elevated. This is consistent with anemia of chronic inflammation. There may be underlying iron deficiency. He also has chronic kidney disease. Etiology of anemia is multifactorial, patient is acutely ill. Stool occult was negative. I would recommend transfusing to keep the hemoglobin greater than 7.5. HIV panel was negative. I would recommend obtaining a hepatitis B and C panel. There does not appear to be any underlying hemolysis. Total bilirubin is completely normal. B12 and folate levels were normal. TSH was normal. 3. Acute respiratory failure currently intubated 4. Sepsis/pneumonia and osteomyelitis--currently on multiple antibiotics 5. Acute renal failure--creatinine stabilizing 6. history of CVA and left-sided hemiparesis
[2018-03-15] MEDS: Ceftazidime/Avibactam Inj 2.5 GM in Sodium Chlor 0.9% Inj 50 ML IV.SIG SCH (21:57)
[2018-03-15] MEDS: Potassium Chloride 25 MEQ Effervescent Tablet PO PRN (22:41)
[2018-03-16] MEDS: Ceftazidime/Avibactam Inj 2.5 GM in Sodium Chlor 0.9% Inj 50 ML IV.SIG SCH ×3 (03:31→21:11)
[2018-03-16] MEDS: Insulin NovoLIN Regular Correctional Sugar Inj SQ SCH ×4 (03:32→21:14)
[2018-03-16 03:56] LABS: Baso % (Auto) 0.4 % (0.0-2.0); Eos # (Auto) 0.2 th/mm3 (0.0-0.4); Eos % (Auto) 2.6 % (0.0-4.0); Hematocrit 22.7 % (39.0-51.0); Hemoglobin 7.9 gm/dL (13.0-17.0); Mean Corpuscular HGB Conc 34.8 % (32.0-36.0); Mean Corpuscular Hemoglobin 30.8 pg (27.0-34.0); Mean Corpuscular Volume 88.4 fL (80.0-100.0); Mean Platelet Volume 7.6 fL (7.0-11.0); Mono # (Auto) 0.4 th/mm3 (0.0-0.9); Mono % (Auto) 5.4 % (0.0-8.0); Neut # (Auto) 6.1 th/mm3 (1.8-7.7); Neut % (Auto) 78.6 % (16.0-70.0); Platelet Count 168 th/mm3 (150-450); Red Blood Count 2.57 mil/mm3 (4.50-5.90); Red Cell Distribution Width 15.1 % (11.6-17.2); White Blood Count 7.8 th/mm3 (4.0-11.0)
[2018-03-16 04:19] LABS: Alanine Aminotransferase 37 U/L (12-78); Albumin 1.9 g/dL (3.4-5.0); Anion Gap 9 meq/L (5-15); Aspartate Aminotransferase 37 U/L (15-37); Blood Urea Nitrogen 15 mg/dL (7-18); Chloride 107 meq/L (98-107); Glomerular Filtration Rate 86 mL/min (>89); Glucose,Random 100 mg/dL (74-106); Magnesium 1.5 mg/dL (1.5-2.5); Phosphorus 3.6 mg/dL (2.5-4.9); Potassium 3.9 meq/L (3.5-5.1); Sodium 145 meq/L (136-145)
[2018-03-16 04:21] LABS: Alkaline Phosphatase 133 U/L (45-117); Total Protein 6.8 g/dL (6.4-8.2)
[2018-03-16] MEDS: Dextrose 5%/NaCl 0.225% Inj 1,000 ML IV.CONT SCH (06:40)
[2018-03-16] MEDS: levETIRAcetam 500 MG Tablet G-TUBE SCH ×2 (10:36→18:34)
[2018-03-16] MEDS: Ascorbic Acid 500 MG Tablet G-TUBE SCH ×2 (10:36→21:14)
[2018-03-16] MEDS: Senna/Docusate Sodium 8.6/50 MG Tablet G-TUBE SCH ×2 (10:37→21:14)
--- NOTE | 2018-03-16 11:15 | P.PNONC ---
Subjective Interval history: T-max 100.3F. Patient alert, answers questions with head nods. Denies any pain. In no acute distress. RT at bedside states they are placing him back on ventilator support due to chest x-ray and increased respiratory rate. Objective Vital Signs/Intake & Output: Vital Signs 03/15/18 12:00 03/15/18 12:01 03/15/18 12:51 Temperature Pulse Rate 94 H 93 H Respiratory Rate 15 Blood Pressure 120/60 Pulse Oximetry 93 L 03/15/18 13:00 03/15/18 14:00 03/15/18 15:00 Temperature Pulse Rate 94 H 93 H 97 H Respiratory Rate Blood Pressure 127/71 125/71 133/78 Pulse Oximetry 03/15/18 16:00 03/15/18 16:51 03/15/18 17:00 Temperature Pulse Rate 97 H 88 Respiratory Rate 15 Blood Pressure 131/72 157/83 H Pulse Oximetry 95 97 96 03/15/18 18:00 03/15/18 20:00 03/15/18 20:28 Temperature 98.0 F Pulse Rate 96 H 100 H Respiratory Rate 15 15 Blood Pressure 131/72 151/89 H Pulse Oximetry 98 85 L 94 L 03/15/18 22:00 03/16/18 00:00 03/16/18 00:15 Temperature Pulse Rate 101 H 93 H Respiratory Rate 15 15 16 Blood Pressure 156/89 H 115/65 Pulse Oximetry 98 94 L 91 L 03/16/18 02:00 03/16/18 04:00 03/16/18 04:28 Temperature 99.0 F Pulse Rate 95 H 101 H Respiratory Rate 15 15 16 Blood Pressure 114/69 122/71 Pulse Oximetry 94 L 97 98 03/16/18 06:00 03/16/18 07:00 03/16/18 08:00 Temperature 100 F H Pulse Rate 95 H 95 H Respiratory Rate 15 15 Blood Pressure 127/71 123/62 Pulse Oximetry 98 98 97 03/16/18 09:00 03/16/18 10:00 03/16/18 10:15 Temperature Pulse Rate 96 H 99 H Respiratory Rate 35 H Blood Pressure 124/64 123/66 Pulse Oximetry 98 98 98 03/16/18 10:57 Temperature Pulse Rate Respiratory Rate Blood Pressure Pulse Oximetry 99 Intake & Output 03/15/18 03/16/18 03/16/18 18:59 06:59 18:59 Intake Total 2322 / 2322 1301 / 1301 Output Total 3800 / 3800 1050 / 1050 Balance -1478 / -1478 251 / 251 Intake: IV 1200 / 1200 700 / 700 D5W/1/4 NS Inj 1,000 ML @ 50 1000 / 1000 mls/hr IV.CONT .Q20H KRISTIE Rx#: [id number] Avycaz Inj 2.5 GM In NS Inj 50 100 / 100 ML @ 25 mls/hr IV.SIG Q8H KRISTIE Rx#:[id number] INVanz Inj 1,000 MG In NS Inj 100 / 100 100 ML @ 100 mls/hr IV.SIG Q24H KRISTIE Rx#:[id number] Zyvox 600 mg Premix 300 ML @ 600 / 600 300 mls/hr IV.SIG Q12H KRISTIE Rx#: [id number] KCl 20 mEq Premix Inj 20 meq In 100 / 100 100 ml @ 50 mls/hr IV.SIG Q2H PRN Rx#:[id number] Tube Feeding 522 / 522 201 / 201 Water Bolus Amount 600 / 600 400 / 400 Output: Urine 3200 / 3200 950 / 950 Stool 600 / 600 100 / 100 Other: Date of Last Bowel Movement 03/15/18 03/15/18 03/15/18 Result Diagrams: 03/16/18 03:40 03/16/18 03:40 Laboratory Results: Laboratory Results - last 24 hr 03/15/18 03/15/18 03/15/18 20:00 21:57 23:39 WBC RBC Hgb Hct MCV MCH MCHC RDW Plt Count MPV Neut % (Auto) Lymph % (Auto) Heard % (Auto) Eos % (Auto) Baso % (Auto) Neut # (Auto) Lymph # (Auto) Heard # (Auto) Eos # (Auto) Baso # (Auto) WBC Differential Differential Comment Sodium Potassium 3.3 L Chloride Carbon Dioxide Anion Gap BUN Creatinine Estimated GFR POC Glucose 128 H 114 H Random Glucose Calcium Phosphorus Magnesium Total Bilirubin AST ALT Alkaline Phosphatase Total Protein Albumin 03/16/18 03/16/18 03/16/18 03:32 03:40 03:40 WBC 7.8 RBC 2.57 L Hgb 7.9 L Hct 22.7 L MCV 88.4 MCH 30.8 MCHC 34.8 RDW 15.1 Plt Count 168 MPV 7.6 Neut % (Auto) 78.6 H Lymph % (Auto) 13.0 Heard % (Auto) 5.4 Eos % (Auto) 2.6 Baso % (Auto) 0.4 Neut # (Auto) 6.1 Lymph # (Auto) 1.0 Heard # (Auto) 0.4 Eos # (Auto) 0.2 Baso # (Auto) 0.0 WBC Differential . Differential Comment Auto diff final Sodium 145 Potassium 3.9 Chloride 107 Carbon Dioxide 29.0 Anion Gap 9 BUN 15 Creatinine 1.11 Estimated GFR 86 L POC Glucose 110 Random Glucose 100 Calcium 8.0 L Phosphorus 3.6 Magnesium 1.5 Total Bilirubin 0.3 AST 37 ALT 37 Alkaline Phosphatase 133 H Total Protein 6.8 Albumin 1.9 L Culture Results: Microbiology 03/13/18 11:10 Gram Stain - Final Sputum - Endotracheal Sputum Culture - Preliminary Klebsiella pneumoniae Multidrug Resistant 03/13/18 11:10 Urine Culture - Final Catheterized Urine Nan albicans 03/06/18 15:00 Fungal Smear - Final Bronchial Washings - Left Lower Lobe No fungal elements seen Fungal Culture - Preliminary No growth in 1 week 03/06/18 15:00 Acid Fast Bacilli Smear - Final Bronchial Washings - Left Lower Lobe No acid fast bacilli seen Mycobacterial Culture - Preliminary No growth in 1 week Medications: Active Medications Generic Name Dose Route Start Last Admin Trade Name Freq PRN Reason Stop Dose Admin Acetaminophen 650 mg 03/15/18 06:24 03/15/18 06:44 Tylenol PO 650 mg Q4H PRN Administration FEVER Albuterol 1 ampul 03/03/18 12:06 03/14/18 19:52 Duoneb Neb (Prn) NEB 1 ampul Q4HR NEB PRN Administration SHORTNESS OF BREATH/WHEEZING Amlodipine Besylate 10 mg 02/20/18 09:00 03/05/18 09:12 Norvasc G-TUBE Not Given DAILY KRISTIE Ascorbic Acid 500 mg 02/19/18 08:13 03/16/18 10:36 Vitamin C G-TUBE 500 mg BID KRISTIE Administration Atorvastatin Calcium 10 mg 02/17/18 21:00 03/15/18 21:58 Lipitor G-TUBE 10 mg HS KRISTIE Administration Carvedilol 25 mg 02/17/18 13:00 03/05/18 09:11 Coreg G-TUBE Not Given BID KIRSTIE Dextrose 50 ml 02/17/18 11:23 03/14/18 05:02 D50w Vial IV.PUSH 50 ml UNSCH PRN Administration PER HYPOGLYCEMIA PROTOCOL Enalaprilat 2.5 mg 02/17/18 11:25 02/21/18 01:34 Vasotec Inj IV.PUSH 2.5 mg Q6H PRN Administration SBP>160, DBP>90 Escitalopram Oxalate 15 mg 02/19/18 08:19 03/06/18 08:05 Lexapro G-TUBE 15 mg DAILY KRISTIE Administration Fluconazole 200 mg 03/16/18 09:00 03/16/18 10:36 Diflucan PO 200 mg DAILY KRISTIE Administration Furosemide 40 mg 03/14/18 09:00 03/16/18 10:36 Lasix Inj IV.PUSH 40 mg DAILY KRISTIE Administration Heparin Sodium (Porcine) 5,000 units 02/21/18 21:00 03/05/18 09:25 Heparin Inj SQ 5,000 units Q12HR KRISTIE Administration Hydralazine HCl 100 mg 02/19/18 08:19 03/05/18 09:11 Apresoline G-TUBE Not Given TID KRISTIE Fentanyl 2,500 mcg in 250 mls @ 5 mls/hr 03/05/18 08:30 03/11/18 09:00 Fentanyl 10 Mcg/Ml Premix Drip IV.SIG Infused TITRATE PRN Titration Per Protocol Protocol 50 MCG/HR Midazolam HCl 50 mg in 50 mls @ 2 mls/hr 03/05/18 23:44 03/06/18 16:04 Versed Inj IV.CONT Infused TITRATE PRN Titration Per Protocol Protocol 2 MG/HR Linezolid 300 mls @ 300 mls/hr 03/08/18 22:00 03/16/18 10:36 Zyvox 600 Mg Premix IV.SIG 300 mls/hr Q12H KRISTIE Administration Potassium Chloride 20 meq in 100 mls @ 50 mls/hr 03/13/18 14:59 03/14/18 20: 05 Kcl 20 Meq Premix Inj IV.SIG Infused Q2H PRN Infusion For Potassium 3.3 - 3.5 mEq/L Potassium Chloride 20 meq in 100 mls @ 50 mls/hr 03/13/18 14:59 03/15/18 10: 34 Kcl 20 Meq Premix Inj IV.SIG 50 mls/hr Q2H PRN Administration For Potassium 2.8 - 3.2 mEq/L Dextrose/Sodium Chloride 1,000 mls @ 50 mls/hr 03/14/18 13:15 03/16/18 06:40 D5w/1/4 Ns Inj IV.CONT Not Given .Q20H KRISTIE Ceftazidime/Avibactam 2.5 gm/ 50 mls @ 25 mls/hr 03/15/18 20:00 03/16/18 06: 41 Sodium Chloride IV.SIG Infused Q8H [facility] Infusion Insulin Human Regular 0 units 03/05/18 12:00 03/16/18 10:35 Novolin R Correctional Sugar Inj SQ Not Given Q4HR [facility] Protocol Lansoprazole 30 mg 02/20/18 09:00 03/16/18 10:36 Prevacid Solutab NG/OG 30 mg DAILY KRISTIE Administration Levetiracetam 500 mg 02/19/18 08:19 03/16/18 10:36 Keppra G-TUBE 500 mg TID KRISTIE Administration Ondansetron HCl 4 mg 02/17/18 06:46 03/14/18 20:06 Zofran Inj IV.PUSH 4 mg Q6H PRN Administration NAUSEA OR VOMITING Potassium Bicarb/Potassium Chloride 50 meq 03/13/18 14:59 03/15/18 22:41 K-Lyte Cl Eff PO 50 meq UNSCH PRN Administration For Potassium 3.3 - 3.5 mEq/L Senna/Docusate Sodium 1 tab 02/19/18 08:19 03/16/18 10:37 Jessie-Colace G-TUBE Not Given BID KRISTIE Sterile Water 200 ml 03/15/18 12:00 03/16/18 06:41 Free Water G-TUBE 200 ml Q6HR KRISTIE Administration Temazepam 15 mg 02/17/18 06:46 03/01/18 21:33 Restoril PO 15 mg HS PRN Administration INSOMNIA Objective Remarks: GENERAL: Chronically ill-appearing male patient, intubated, in no acute distress. Answers questions with head nods. SKIN: Warm and dry. HEAD: Normocephalic. EYES: No scleral icterus. No injection or drainage. NECK: Supple, trachea midline. CARDIOVASCULAR: Regular rate and rhythm without murmurs. RESPIRATORY: + Intubated. Breath sounds equal bilaterally. No accessory muscle use. GASTROINTESTINAL: Abdomen soft, non-tender, nondistended. EXTREMITIES: No cyanosis, or edema. Support boots to BLE. MUSCULOSKELETAL: Decreased muscle tone. NEUROLOGICAL: Awake, alert. No movement to left extremities. Right-sided strength weekend, moves upper and lower extremity. PSYCHIATRIC: Appropriate mood and affect; insight and judgment normal. Assessment/Plan (1) End stage renal disease Code(s): N18.6 - End stage renal disease Status: Acute (2) GI bleed Code(s): K92.2 - Gastrointestinal hemorrhage, unspecified Status: Acute (3) Anemia Code(s): D64.9 - Anemia, unspecified Status: Acute (4) Osteomyelitis Code(s): M86.9 - Osteomyelitis, unspecified Status: Acute (5) Diabetes Code(s): E11.9 - Type 2 diabetes mellitus without complications Status: Acute (6) Anemia of chronic disorder Code(s): D63.8 - Anemia in other chronic diseases classified elsewhere Status : Acute (7) Acute on chronic anemia Code(s): D64.9 - Anemia, unspecified Status: Acute (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 He is on a ventilator. He has undergone cardiac arrest. Status post ACLS protocol. He was successfully resuscitated. He has respiratory failure. He has osteomyelitis of the foot. He also has sepsis and pneumonia. He has candiduria. He is currently on multiple antibiotics. He has a history of stroke and chronic anemia. He developed acute on chronic anemia. He has acute on chronic kidney disease. During the course of his workup serum protein electrophoresis and immunoelectrophoresis was performed. These tests were interpreted as abnormal and hematology has been consulted to make further recommendations: Plan: 1. Serum protein electrophoresis results consistent with inflammation/reactive process. Immunoelectrophoresis is still pending. 2. Anemia of chronic inflammation. Recommendations to keep hemoglobin greater than 7.5. No transfusion warranted today. Continue to monitor. 3. Sepsis, pneumonia and osteomyelitis. Management per attending, currently on multiple antibiotics. 4. Continue supportive care. - Attending Statement The exam, history, and the medical decision-making described in the above note were completed with the assistance of the mid-level provider. I reviewed and agree with the findings presented. I attest that I had a [id number] encounter with the patient on the same day, and personally performed and documented my assessment and findings in the medical record. remains critically ill CECILIA pending Spep consistent with infection and hypoalbuminemia Hb 7.9 no blood products today
--- NOTE | 2018-03-16 13:37 | P.PNCC ---
Subjective Subjective Remarks/Hospital Course: The patient is a 47-year-old male with a past medical history of a CVA with left -sided hemiparesis, hypertension, diabetes mellitus, anemia of chronic disease, CHF, dysphagia, status post PEG tube placement, depression, nonverbal, who was admitted under the hospitalist service on 02/17/2018 for acute on chronic anemia. In addition, the patient has a history of bilateral foot osteomyelitis. During his hospital course, he had worsening renal function with a creatinine of 1.74 this morning from 1.1 on admission. In addition, the patient was found hypernatremic with a sodium level of 156 and hyperkalemic with a potassium level 5.3. A halicat was called 2 days ago for shortness of breath, and this morning the patient had a PEA arrest. ACLS protocol was initiated and the patient received epinephrine x3, 2 amps of bicarbonate, and 1 amp of calcium and was subsequently intubated by myself with an ET tube 8.0 cm size. A chest x-ray post intubation showed diffuse bilateral pulmonary infiltrates. He was on NS at 100 mL an hour for the past 2 days. Also, he had a venous Doppler ultrasound on 02/18/2018, which showed no evidence of a DVT; however, it showed a pseudoaneurysm at the distal brachial artery measuring 3.6 x 2.2 x 2.2 cm, predominantly thrombosed; however, there was a small patent component with biphasic flow measuring 6 x 9 mm. A single lumen right PICC line was placed by interventional radiology on 02/22/2018. The patient also had an arterial Doppler ultrasound which was within normal. He was seen by Dr. Jensen from vascular surgery. In addition, the patient has been followed by podiatry and infectious disease. ABG postcode showed acute hypercapnic respiratory acidosis with a pH of 7.11, CO2 of 83, PaO2 of 99, bicarbonate 25, saturation 92% on PRVC mode, rate of 16, tidal volume 500, PEEP of 5, 100% FiO2, and I time 0.9. 03/06 Patient is sedated with Versed and Fenantl drips Levophed started overnight on 4 mics. Afebrile. Renal function worse this morning with C: 1.93 from 1.75 s/p transfusion 2U PRBC yesterday . 03/07: Remains sedated, arousable, orally intubated on mechanical ventilation. Sputum growing ESBL Klebsiella. 03/08 Patient remains intubated and Sedated with Fentanyl drip. Had T: 101 last night.Had an episode of hypoglycemia last night given D50 and placed on D10. 03/09 Patient remains sedated and intubated. T: 100 at 4 am. 03/10 Patient is intubated, sedated T:99.9. renal function is improving with Cr: 2.08 from 2.47 03/11 Patient remains intubated and sedated with Fentanyl drip. Afebrile. 03/12 Patient is off sedation intubated does not follow commands, afebrile. CT brain yesterday no acute findings. 03/13 Patient remains off sedation doesn't follow commands, T:100.3 last night. Renal function is improving with Cr: 1.47 from 1.65 03/14 Remains intubated, afebrile. TF om hold for emesis. Afebrile. 03/15 Patient remains intubated T:100.0 last night. 03/16: Patient remains intubated, sedated appears to follow some commands on sedation hold. Continues to have low-grade fever. Failed CPAP trial today due to severe tachypnea and low tidal volume. Chest x-ray shows worsening bilateral infiltrates/effusion. Will check CT to evaluate for infiltrate versus effusion. Also will increase Lasix to 40 mg every 12. Objective Vital Signs / I&O: Vital Signs 03/15/18 14:00 03/15/18 15:00 03/15/18 16:00 Temperature Pulse Rate 93 H 97 H 97 H Respiratory Rate Blood Pressure 125/71 133/78 131/72 Pulse Oximetry 95 03/15/18 16:51 03/15/18 17:00 03/15/18 18:00 Temperature Pulse Rate 88 96 H Respiratory Rate 15 Blood Pressure 157/83 H 131/72 Pulse Oximetry 97 96 98 03/15/18 20:00 03/15/18 20:28 03/15/18 22:00 Temperature 98.0 F Pulse Rate 100 H 101 H Respiratory Rate 15 15 15 Blood Pressure 151/89 H 156/89 H Pulse Oximetry 85 L 94 L 98 03/16/18 00:00 03/16/18 00:15 03/16/18 02:00 Temperature Pulse Rate 93 H 95 H Respiratory Rate 15 16 15 Blood Pressure 115/65 114/69 Pulse Oximetry 94 L 91 L 94 L 03/16/18 04:00 03/16/18 04:28 03/16/18 06:00 Temperature 99.0 F Pulse Rate 101 H 95 H Respiratory Rate 15 16 15 Blood Pressure 122/71 127/71 Pulse Oximetry 97 98 98 03/16/18 07:00 03/16/18 08:00 03/16/18 09:00 Temperature 100 F H Pulse Rate 95 H 96 H Respiratory Rate 15 Blood Pressure 123/62 124/64 Pulse Oximetry 98 97 98 03/16/18 10:00 03/16/18 10:15 03/16/18 10:57 Temperature Pulse Rate 99 H Respiratory Rate 35 H Blood Pressure 123/66 Pulse Oximetry 98 98 99 03/16/18 13:16 Temperature Pulse Rate Respiratory Rate 15 Blood Pressure Pulse Oximetry 99 Intake & Output 03/15/18 03/16/18 03/16/18 18:59 06:59 18:59 Intake Total 2322 / 2322 1301 / 1301 Output Total 3800 / 3800 1050 / 1050 Balance -1478 / -1478 251 / 251 Intake: IV 1200 / 1200 700 / 700 D5W/1/4 NS Inj 1,000 ML @ 50 1000 / 1000 mls/hr IV.CONT .Q20H KRISTIE Rx#: [id number] Avycaz Inj 2.5 GM In NS Inj 50 100 / 100 ML @ 25 mls/hr IV.SIG Q8H KRISTIE Rx#:[id number] INVanz Inj 1,000 MG In NS Inj 100 / 100 100 ML @ 100 mls/hr IV.SIG Q24H KRISTIE Rx#:[id number] Zyvox 600 mg Premix 300 ML @ 600 / 600 300 mls/hr IV.SIG Q12H KRISTIE Rx#: [id number] KCl 20 mEq Premix Inj 20 meq In 100 / 100 100 ml @ 50 mls/hr IV.SIG Q2H PRN Rx#:[id number] Tube Feeding 522 / 522 201 / 201 Water Bolus Amount 600 / 600 400 / 400 Output: Urine 3200 / 3200 950 / 950 Stool 600 / 600 100 / 100 Other: Date of Last Bowel Movement 03/15/18 03/15/18 03/15/18 Result Diagrams: 03/16/18 03:40 03/16/18 03:40 Objective Remarks: GENERAL: Patient is 47 yo intubated and sedated on sedation lightening follows some commands SKIN: Warm and dry. HEAD: Normocephalic. EYES: No scleral icterus. No injection or drainage. NECK: Supple, trachea midline. No JVD or lymphadenopathy. CARDIOVASCULAR: Regular rate and rhythm without murmurs, gallops, or rubs. RESPIRATORY: Breath sounds equal bilaterally. Basilar coarse crackles and diminished breath sounds GASTROINTESTINAL: Abdomen soft, non-tender, nondistended. + PEG tube MUSCULOSKELETAL: No cyanosis, or edema. Neuro intubated, intermittently follows commands no focal deficits Assessment and Plan - Assessment and Plan Plan: 1. Acute respiratory failure 2. S/p PEA arrest 3. Diffuse bilateral pulmonary infiltrates, ddx aspiration pneumonia and fluid overload. 4. Hypertension. 5. Acute kidney injury. 6. History CVA with left-sided hemiparesis. 7. 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 8. Bilateral foot osteomyelitis methicillin-resistant Staphylococcus aureus. Plan Neuro: off sedation monitor neuro status on Keppra 500 mg t.i.d. for a history of seizures. CT brain 03/11: No acute findings. EEG: Mild slowing Pulm: Continue with ventilatory support and maintain sats> 92%. On PRVC RR 15, TV 550, IT:0.9, PEEP:5, FIO2: 35% Bronchodilators, ICU vent bundle. Increased to 40 twice daily SBT daily as demond. Check CXR. Failed CPAP trials today due to low tidal volume and severe tachypnea s/p diagnostic US guided thoracentesis 40ml removed ( transudative fluid ) CT to better evaluate pleural effusion/infiltrate evaluate need for thoracentesis Bronch with BAL 03/06 showed secretions L>R suctioned to clear, BAL performed LLL. BAL: Kleb pneumonia ESBL, Proteus Mirabilis, MRSA CV: Monitor HR and BP and maintain MAP> 65 mmHg. Echo showed EF 60-65% : Monitor renal function, I's and O's , electrolytes replacement per protocol Renal function is improving with Cr: 1.1 today. Will need K replacement today Continue with Free water 300ml Q4 monitor sodium level Lasix 40mg IV daily, increase to 40 twice daily GI: On Prevacid 30 mg daily. Resume tube feeds- Nepro with goal rate 40ml/hr KUB 03/13: No obstructing bowel gas pattern. ID: Continue with abx (Ertapenem, Zyvox) ID is following. Sputum cx 03/13: MDR Klebsiella Urine cx: Nan Albicans 03/13 Follow up on Blood and urine cx from 03/05- NGTD 03/05 Sputum cx: ESBL Klebsiella BAL cx 03/06: Kleb pneumonia ESBL, Proteus Mirabilis, MRSA Wound culture growing MRSA from osteomyelitis site. Heme: Monitor CBC and coags. s/p transfusion 2u PRBC 03/05 heme occult negative Endo: SSI with Accu-Cheks for glycemic control. GI prophylaxis- On Prevacid DVT prophylaxis- SCD, heparin SQ held for anemia requiring blood transfusion. IV access: RUE single lumen PICC line repositioned by IR 03/05 Condition critical Time spent on critical care excluding procedures 32 minutes
--- NOTE | 2018-03-16 14:43 | P.PNPL ---
Subjective Interval history: On Vent, fi02 45% Off sedation Opens eyes No N,V Low grade fever did't tolerate CPAP CXR bibasilar infilterates Physical Exam Vital signs: Vital Signs 03/15/18 15:00 03/15/18 16:00 03/15/18 16:51 Temperature Pulse Rate 97 H 97 H Respiratory Rate 15 Blood Pressure 133/78 131/72 Pulse Oximetry 95 97 03/15/18 17:00 03/15/18 18:00 03/15/18 20:00 Temperature 98.0 F Pulse Rate 88 96 H 100 H Respiratory Rate 15 Blood Pressure 157/83 H 131/72 151/89 H Pulse Oximetry 96 98 85 L 03/15/18 20:28 03/15/18 22:00 03/16/18 00:00 Temperature Pulse Rate 101 H 93 H Respiratory Rate 15 15 15 Blood Pressure 156/89 H 115/65 Pulse Oximetry 94 L 98 94 L 03/16/18 00:15 03/16/18 02:00 03/16/18 04:00 Temperature 99.0 F Pulse Rate 95 H 101 H Respiratory Rate 16 15 15 Blood Pressure 114/69 122/71 Pulse Oximetry 91 L 94 L 97 03/16/18 04:28 03/16/18 06:00 03/16/18 07:00 Temperature Pulse Rate 95 H Respiratory Rate 16 15 15 Blood Pressure 127/71 Pulse Oximetry 98 98 98 03/16/18 08:00 03/16/18 09:00 03/16/18 10:00 Temperature 100 F H Pulse Rate 95 H 96 H 99 H Respiratory Rate Blood Pressure 123/62 124/64 123/66 Pulse Oximetry 97 98 98 03/16/18 10:15 03/16/18 10:57 03/16/18 13:16 Temperature Pulse Rate Respiratory Rate 35 H 15 Blood Pressure Pulse Oximetry 98 99 99 03/16/18 14:34 Temperature Pulse Rate Respiratory Rate Blood Pressure Pulse Oximetry 100 Intake & Output 03/15/18 03/16/18 03/16/18 18:59 06:59 18:59 Intake Total 2322 / 2322 1301 / 1301 Output Total 3800 / 3800 1050 / 1050 Balance -1478 / -1478 251 / 251 Intake: IV 1200 / 1200 700 / 700 D5W/1/4 NS Inj 1,000 ML @ 50 1000 / 1000 mls/hr IV.CONT .Q20H KRISTIE Rx#: [id number] Avycaz Inj 2.5 GM In NS Inj 50 100 / 100 ML @ 25 mls/hr IV.SIG Q8H KRISTIE Rx#:[id number] INVanz Inj 1,000 MG In NS Inj 100 / 100 100 ML @ 100 mls/hr IV.SIG Q24H KRISTIE Rx#:[id number] Zyvox 600 mg Premix 300 ML @ 600 / 600 300 mls/hr IV.SIG Q12H KRISTIE Rx#: [id number] KCl 20 mEq Premix Inj 20 meq In 100 / 100 100 ml @ 50 mls/hr IV.SIG Q2H PRN Rx#:[id number] Tube Feeding 522 / 522 201 / 201 Water Bolus Amount 600 / 600 400 / 400 Output: Urine 3200 / 3200 950 / 950 Stool 600 / 600 100 / 100 Other: Date of Last Bowel Movement 03/15/18 03/15/18 03/15/18 GENERAL: WBWn On Vent SKIN: Warm and dry. HEAD: Normocephalic. EYES: No scleral icterus. No injection or drainage. NECK: Supple, trachea midline. No JVD or lymphadenopathy. CARDIOVASCULAR: Regular rate and rhythm without murmurs, gallops, or rubs. RESPIRATORY: Breath sounds equal bilaterally. No accessory muscle use. GASTROINTESTINAL: Abdomen soft, non-tender, nondistended. MUSCULOSKELETAL: No cyanosis, or edema. BACK: Nontender without obvious deformity. No CVA tenderness. - Urinary Catheter Management Indwelling Urethral Catheter Cath placed during this visit: yes Reason for continuing: Acute urinary retention Insertion date: 03/05/18 Insertion time: 08:00 Assessment and Plan - Plan IMPRESSION: 1. Bilateral lung infiltrates. 2. Small pleural effusion. 3. Osteomyelitis of both feet. 4. Diabetes mellitus. 5. Cerebrovascular accident with left-sided contracture. 6. VDRF 7. S/P cardiopulm arrest. PLAN: Vent Support Cont Abx Aerosol nebs monitor Pl eff Monitor renal functions. Tube feeding Check CT chest
--- NOTE | 2018-03-16 14:53 | P.PNPOD ---
Physical Exam Vital signs: Vital Signs 03/15/18 15:00 03/15/18 16:00 03/15/18 16:51 Temperature Pulse Rate 97 H 97 H Respiratory Rate 15 Blood Pressure 133/78 131/72 Pulse Oximetry 95 97 03/15/18 17:00 03/15/18 18:00 03/15/18 20:00 Temperature 98.0 F Pulse Rate 88 96 H 100 H Respiratory Rate 15 Blood Pressure 157/83 H 131/72 151/89 H Pulse Oximetry 96 98 85 L 03/15/18 20:28 03/15/18 22:00 03/16/18 00:00 Temperature Pulse Rate 101 H 93 H Respiratory Rate 15 15 15 Blood Pressure 156/89 H 115/65 Pulse Oximetry 94 L 98 94 L 03/16/18 00:15 03/16/18 02:00 03/16/18 04:00 Temperature 99.0 F Pulse Rate 95 H 101 H Respiratory Rate 16 15 15 Blood Pressure 114/69 122/71 Pulse Oximetry 91 L 94 L 97 03/16/18 04:28 03/16/18 06:00 03/16/18 07:00 Temperature Pulse Rate 95 H Respiratory Rate 16 15 15 Blood Pressure 127/71 Pulse Oximetry 98 98 98 03/16/18 08:00 03/16/18 09:00 03/16/18 10:00 Temperature 100 F H Pulse Rate 95 H 96 H 99 H Respiratory Rate Blood Pressure 123/62 124/64 123/66 Pulse Oximetry 97 98 98 03/16/18 10:15 03/16/18 10:57 03/16/18 13:16 Temperature Pulse Rate Respiratory Rate 35 H 15 Blood Pressure Pulse Oximetry 98 99 99 03/16/18 14:34 Temperature Pulse Rate Respiratory Rate Blood Pressure Pulse Oximetry 100 Intake & Output 03/15/18 03/16/18 03/16/18 18:59 06:59 18:59 Intake Total 2322 / 2322 1301 / 1301 Output Total 3800 / 3800 1050 / 1050 Balance -1478 / -1478 251 / 251 Intake: IV 1200 / 1200 700 / 700 D5W/1/4 NS Inj 1,000 ML @ 50 1000 / 1000 mls/hr IV.CONT .Q20H [facility] Rx#: [id number] Avycaz Inj 2.5 GM In NS Inj 50 100 / 100 ML @ 25 mls/hr IV.SIG Q8H [facility] Rx#:[id number] INVanz Inj 1,000 MG In NS Inj 100 / 100 100 ML @ 100 mls/hr IV.SIG Q24H [facility] Rx#:[id number] Zyvox 600 mg Premix 300 ML @ 600 / 600 300 mls/hr IV.SIG Q12H [facility] Rx#: [id number] KCl 20 mEq Premix Inj 20 meq In 100 / 100 100 ml @ 50 mls/hr IV.SIG Q2H [facility]N Rx#:[id number] Tube Feeding 522 / 522 201 / 201 Water Bolus Amount 600 / 600 400 / 400 Output: Urine 3200 / 3200 950 / 950 Stool 600 / 600 100 / 100 Other: Date of Last Bowel Movement 03/15/18 03/15/18 03/15/18 Medications and Allergies Active Medications: Active Medications Acetaminophen (Tylenol) 650 mg PO Q4H PRN PRN Reason: FEVER Last Admin: 03/15/18 06:44 Dose: 650 mg Al Hydroxide/Mg Hydroxide (Milk Of Nadiya Phelps) 30 ml G-TUBE Q12H PRN PRN Reason: Mild Constipation Albuterol (Duoneb Neb (Prn)) 1 ampul NEB Q4HR NEB PRN PRN Reason: SHORTNESS OF BREATH/WHEEZING Last Admin: 03/14/18 19:52 Dose: 1 ampul Amlodipine Besylate (Norvasc) 10 mg G-TUBE DAILY [facility] Last Admin: 03/05/18 09:12 Dose: Not Given Ascorbic Acid (Vitamin C) 500 mg G-TUBE BID [facility] Last Admin: 03/16/18 10:36 Dose: 500 mg Atorvastatin Calcium (Lipitor) 10 mg G-TUBE HS [facility] Last Admin: 03/15/18 21:58 Dose: 10 mg Bisacodyl (Dulcolax Supp) 10 mg RECTAL DAILY PRN PRN Reason: SEVERE CONSITIPATION Carvedilol (Coreg) 25 mg G-TUBE BID [facility] Last Admin: 03/05/18 09:11 Dose: Not Given Dextrose (D50w Vial) 50 ml IV.PUSH UNSCH PRN PRN Reason: PER HYPOGLYCEMIA PROTOCOL Last Admin: 03/14/18 05:02 Dose: 50 ml Enalaprilat (Vasotec Inj) 2.5 mg IV.PUSH Q6H PRN PRN Reason: SBP>160, DBP>90 Last Admin: 02/21/18 01:34 Dose: 2.5 mg Escitalopram Oxalate (Lexapro) 15 mg G-TUBE DAILY [facility] Last Admin: 03/06/18 08:05 Dose: 15 mg Fluconazole (Diflucan) 200 mg PO DAILY [facility] Last Admin: 03/16/18 10:36 Dose: 200 mg Furosemide (Lasix Inj) 40 mg IV.PUSH Q12H [facility] Glucagon (Glucagon Inj) 1 mg OTHER PRN PRN PRN Reason: for Hypoglycemia Protocol Heparin Sodium (Porcine) (Heparin Inj) 5,000 units SQ Q12HR [facility] Last Admin: 03/05/18 09:25 Dose: 5,000 units Hydralazine HCl (Apresoline) 100 mg G-TUBE TID [facility] Last Admin: 03/05/18 09:11 Dose: Not Given Fentanyl (Fentanyl 10 Mcg/Ml Premix Drip) 2,500 mcg in 250 mls @ 5 mls/hr IV.SIG TITRATE PRN; Protocol PRN Reason: Per Protocol Last Titration: 03/11/18 09:00 Dose: Infused Midazolam HCl (Versed Inj) 50 mg in 50 mls @ 2 mls/hr IV.CONT TITRATE PRN; Protocol PRN Reason: Per Protocol Last Titration: 03/06/18 16:04 Dose: Infused Linezolid (Zyvox 600 Mg Premix) 300 mls @ 300 mls/hr IV.SIG Q12H [facility] Last Admin: 03/16/18 10:36 Dose: 300 mls/hr Magnesium Sulfate Inj 4 gm/ (Sodium Chloride) 100 mls @ 50 mls/hr IV.SIG UNSCH PRN PRN Reason: For Magnesium 0.9 - 1.1 mg/dL Magnesium Sulfate Inj 2 gm/ (Sodium Chloride) 100 mls @ 50 mls/hr IV.SIG UNSCH PRN PRN Reason: For Magnesium 1.2 - 1.6 mg/dL Potassium Chloride (Kcl 40 Meq Premix Inj) 40 meq in 100 mls @ 25 mls/hr IV.SIG Q2H PRN PRN Reason: For Potassium 2.8 - 3.2 mEq/L Potassium Chloride (Kcl 20 Meq Premix Inj) 20 meq in 100 mls @ 50 mls/hr IV.SIG Q2H PRN PRN Reason: For Potassium 3.3 - 3.5 mEq/L Last Infusion: 03/14/18 20:05 Dose: Infused Potassium Chloride (Kcl 40 Meq Premix Inj) 40 meq in 100 mls @ 25 mls/hr IV.SIG UNSCH PRN PRN Reason: For Potassium 3.3 - 3.5 mEq/L Potassium Chloride (Kcl 20 Meq Premix Inj) 20 meq in 100 mls @ 50 mls/hr IV.SIG Q2H PRN PRN Reason: For Potassium 2.8 - 3.2 mEq/L Last Admin: 03/15/18 10:34 Dose: 50 mls/hr Potassium Phosphate 30 mmol/ (Sodium Chloride) 260 mls @ 42 mls/hr IV.SIG UNSCH PRN PRN Reason: SEE LABEL COMMENTS Sodium Phosphate 30 mmol/ (Sodium Chloride) 260 mls @ 42 mls/hr IV.SIG UNSCH PRN PRN Reason: For Phosphorus < 2.5 mg/dL Dextrose/Sodium Chloride (D5w/1/4 Ns Inj) 1,000 mls @ 50 mls/hr IV.CONT .Q20H [facility] Last Admin: 03/16/18 06:40 Dose: Not Given Ceftazidime/Avibactam 2.5 gm/ (Sodium Chloride) 50 mls @ 25 mls/hr IV.SIG Q8H [facility] Last Infusion: 03/16/18 06:41 Dose: Infused Insulin Human Regular (Novolin R Correctional Sugar Inj) 0 units SQ Q4HR [facility]; Protocol Last Admin: 03/16/18 10:35 Dose: Not Given Lactulose (Lactulose Liq) 30 ml G-TUBE DAILY PRN PRN Reason: SEVERE CONSITIPATION Lansoprazole (Prevacid Solutab) 30 mg NG/OG DAILY [facility] Last Admin: 03/16/18 10:36 Dose: 30 mg Levetiracetam (Keppra) 500 mg G-TUBE TID [facility] Last Admin: 03/16/18 10:36 Dose: 500 mg Magnesium Oxide (Mag-Ox) 800 mg PO UNSCH PRN PRN Reason: For Magnesium 1.2 - 1.6 mg/dL Miscellaneous (Pill Splitter) 1 each OTHER ONCE [facility] Ondansetron HCl (Zofran Inj) 4 mg IV.PUSH Q6H PRN PRN Reason: NAUSEA OR VOMITING Last Admin: 03/14/18 20:06 Dose: 4 mg Potassium Bicarb/Potassium Chloride (K-Lyte Cl Eff) 50 meq PO UNSCH PRN PRN Reason: For Potassium 3.3 - 3.5 mEq/L Last Admin: 03/15/18 22:41 Dose: 50 meq Potassium Phosphate (K-Phos Original) 2,000 mg PO Q4H PRN PRN Reason: Phosphorus Less Than 2.5 mg/dL Potassium Phosphate (K-Phos Original) 2,000 mg PO UNSCH PRN PRN Reason: SEE LABEL COMMENTS Senna/Docusate Sodium (Jessie-Colace) 1 tab G-TUBE BID [facility] Last Admin: 03/16/18 10:37 Dose: Not Given Sennosides (Senokot) 17.2 mg PO Q12H PRN PRN Reason: Moderate Constipation Sterile Water (Free Water) 200 ml G-TUBE Q6HR [facility] Last Admin: 03/16/18 06:41 Dose: 200 ml Temazepam (Restoril) 15 mg PO HS PRN PRN Reason: INSOMNIA Last Admin: 03/01/18 21:33 Dose: 15 mg Terbutaline Sulfate (Brethine Inj) 1 mg SQ UNSCH PRN PRN Reason: For Extravasation Allergies Allergy/AdvReac Type Severity Reaction Status Date / Time No Known Allergies Allergy Unknown Uncoded 01/06/18 21:04 Home Medications Medication Instructions Recorded Confirmed Type ascorbic acid (vitamin C) [Vitamin 500 mg PO BID 01/15/18 02/17/18 History C] aspirin [Aspir-81] 81 mg FEEDING TUBE DAILY 01/15/18 02/17/18 History atorvastatin 10 mg FEEDING TUBE HS 01/15/18 02/17/18 History carvedilol [Coreg] 25 mg FEEDING TUBE BID 01/15/18 02/17/18 History escitalopram oxalate 15 mg FEEDING TUBE DAILY 01/15/18 02/17/18 History gentamicin 1 applic TOPICAL QID 01/15/18 02/17/18 History hydralazine 100 mg PO TID 01/15/18 02/17/18 History insulin detemir U-100 [Levemir 5 unit SUB-Q BID 01/15/18 02/17/18 History U-100 Insulin] ipratropium-albuterol 3 ml INHALATION Q6-8H PRN 01/15/18 02/17/18 History levetiracetam 500 mg PO TID 01/15/18 02/17/18 History melatonin 3 mg FEEDING TUBE HS 01/15/18 02/17/18 History insulin aspart U-100 [Novolog 1 sliding scale dose SUB-Q UD 02/17/18 02/17/18 History U-100 Insulin aspart] Results - Labs CBC & Chem 7: 03/16/18 03:40 03/16/18 03:40 Laboratory Results - last 24 hr 03/15/18 03/15/18 03/15/18 20:00 21:57 23:39 WBC RBC Hgb Hct MCV MCH MCHC RDW Plt Count MPV Neut % (Auto) Lymph % (Auto) [place] % (Auto) Eos % (Auto) Baso % (Auto) Neut # (Auto) Lymph # (Auto) [place] # (Auto) Eos # (Auto) Baso # (Auto) WBC Differential Differential Comment Sodium Potassium 3.3 L Chloride Carbon Dioxide Anion Gap BUN Creatinine Estimated GFR POC Glucose 128 H 114 H Random Glucose Calcium Phosphorus Magnesium Total Bilirubin AST ALT Alkaline Phosphatase Total Protein Albumin 03/16/18 03/16/18 03/16/18 03:32 03:40 03:40 WBC 7.8 RBC 2.57 L Hgb 7.9 L Hct 22.7 L MCV 88.4 MCH 30.8 MCHC 34.8 RDW 15.1 Plt Count 168 MPV 7.6 Neut % (Auto) 78.6 H Lymph % (Auto) 13.0 [place] % (Auto) 5.4 Eos % (Auto) 2.6 Baso % (Auto) 0.4 Neut # (Auto) 6.1 Lymph # (Auto) 1.0 [place] # (Auto) 0.4 Eos # (Auto) 0.2 Baso # (Auto) 0.0 WBC Differential . Differential Comment Auto diff final Sodium 145 Potassium 3.9 Chloride 107 Carbon Dioxide 29.0 Anion Gap 9 BUN 15 Creatinine 1.11 Estimated GFR 86 L POC Glucose 110 Random Glucose 100 Calcium 8.0 L Phosphorus 3.6 Magnesium 1.5 Total Bilirubin 0.3 AST 37 ALT 37 Alkaline Phosphatase 133 H Total Protein 6.8 Albumin 1.9 L Microbiology 03/13/18 11:10 Sputum - Endotracheal Gram Stain - Final 03/13/18 11:10 Sputum - Endotracheal Sputum Culture - Preliminary Klebsiella pneumoniae Multidrug Resistant 03/15/18 10:12 Blood - Peripheral Aerobic Blood Culture - Preliminary No growth in 1 day 03/15/18 10:12 Blood - Peripheral Anaerobic Blood Culture - Preliminary No growth in 1 day 03/15/18 10:07 Blood - Peripheral Aerobic Blood Culture - Preliminary No growth in 1 day 03/15/18 10:07 Blood - Peripheral Anaerobic Blood Culture - Preliminary No growth in 1 day Assessment and Plan - Assessment (1) Foot ulcer, right Code(s): L97.519 - Non-pressure chronic ulcer of other part of right foot with unspecified severity Status: Acute (2) Foot ulcer, left Code(s): L97.529 - Non-pressure chronic ulcer of other part of left foot with unspecified severity Status: Resolved (3) Osteomyelitis of ankle and foot Code(s): M86.9 - Osteomyelitis, unspecified Status: Acute Plan: Still recommend bilateral AKA if wounds become unstable to feet due to severe contractures.
--- NOTE | 2018-03-16 15:08 | CT ---
EXAM DATE: 03/16/2018 2:46 PM EDT AGE/SEX: 47 years / Male INDICATIONS: Respiratory distress. CLINICAL DATA: This is the patient's initial encounter. Patient reports that signs and symptoms have been present for 1 day and indicates a pain score of Nonresponsive. MEDICAL/SURGICAL HISTORY: Anemia. Diabetes. Stroke. None. RADIATION DOSE: 9.18 CTDI (mGy) COMPARISON: [facility], CT CHEST W/O CONTRAST, 03/05/2018. [facility], CHEST 1V SINGLE AP, 03/15/2018. . TECHNIQUE: Multiple contiguous axial images were obtained through the chest without contrast. Image s were obtained in suspended respiration using multiple row detector helical technique. Using automa hellen exposure control and adjustment of the mA and/or kV according to patient size, radiation dose was kept as low as reasonably achievable to obtain optimal diagnostic quality images. DICOM format imag e data is available electronically for review and comparison. FINDINGS: Soft tissues demonstrate supraclavicular adenopathy on the left, stable. There is an endotr acheal tube appropriately positioned within the trachea. Lungs: The lungs demonstrate significant improvement as compared to the prior exam of March 05 8. However, there is persistent airspace consolidation involving the majority of the right lower lobe and to a lesser extent within the right middle lobe associated with volume loss. Patchy areas of air space consolidation are seen within the left lower lobe and left upper lobe. There is diffuse groundg lass opacity identified throughout the lungs, in a perivascular distribution. Large right-sided pleur al effusion and moderate sized pleural effusion on the left. There is fluid identified within the lef t major fissure. Mediastinum: Heart size appears grossly normal in size. Pulmonary arteries normal in caliber. There is a central line terminating at the cavoatrial junction. Small lymph nodes are identified within the prevascular space with larger confluent lymph nodes identified within the AP window. No hilar lymph nodes identified. Pleurae: Bilateral pleural effusions, right greater than left. Axillae: Unremarkable. Bony Structures: Unremarkable. Miscellaneous: The examination was extended to include the upper abdomen, and both adrenal glands ar e normal in size and configuration. CONCLUSION: 1. Persistent bilateral pleural effusions and areas of airspace consolidation and groundglass opacit y. This process is overall significantly improved as compared to the exam of March 05, 2018 and slig htly improved/stable from the exam of March 15, 2018. Findings are consistent with multifocal pneu monia versus severe respiratory distress secondary to pulmonary edema. 2. There is persistent left supraclavicular adenopathy as well as adenopathy within the mediastinum. Correlate with prior known history of malignancy. Electronically signed by: Maria Elena Hernandez MD 03/16/2018 3:06 PM EDT
[2018-03-17] MEDS: Insulin NovoLIN Regular Correctional Sugar Inj SQ SCH ×6 (00:37→20:38)
[2018-03-17] MEDS: Ceftazidime/Avibactam Inj 2.5 GM in Sodium Chlor 0.9% Inj 50 ML IV.SIG SCH ×3 (05:40→21:18)
[2018-03-17] MEDS: Dextrose 5%/NaCl 0.225% Inj 1,000 ML IV.CONT SCH (05:41)
[2018-03-17 06:34] LABS: Alanine Aminotransferase 36 U/L (12-78); Alkaline Phosphatase 138 U/L (45-117); Anion Gap 10 meq/L (5-15); Aspartate Aminotransferase 37 U/L (15-37); Blood Urea Nitrogen 15 mg/dL (7-18); Calcium 8.6 mg/dL (8.5-10.1); Carbon Dioxide 30.2 meq/L (21.0-32.0); Chloride 104 meq/L (98-107); Glomerular Filtration Rate 78 mL/min (>89); Glucose,Random 103 mg/dL (74-106); Magnesium 1.5 mg/dL (1.5-2.5); Phosphorus 4.1 mg/dL (2.5-4.9); Sodium 144 meq/L (136-145); Total Protein 7.4 g/dL (6.4-8.2)
[2018-03-17] MEDS: Potassium Chlor 40 mEq Premix 40 MEQ/100 ML PIGGYBACK IV.SIG PRN ×2 (06:44→11:16)
--- NOTE | 2018-03-17 10:20 | P.PNCC ---
Subjective Subjective Remarks/Hospital Course: The patient is a 47-year-old male with a past medical history of a CVA with left -sided hemiparesis, hypertension, diabetes mellitus, anemia of chronic disease, CHF, dysphagia, status post PEG tube placement, depression, nonverbal, who was admitted under the hospitalist service on 02/17/2018 for acute on chronic anemia. In addition, the patient has a history of bilateral foot osteomyelitis. During his hospital course, he had worsening renal function with a creatinine of 1.74 this morning from 1.1 on admission. In addition, the patient was found hypernatremic with a sodium level of 156 and hyperkalemic with a potassium level 5.3. A halicat was called 2 days ago for shortness of breath, and this morning the patient had a PEA arrest. ACLS protocol was initiated and the patient received epinephrine x3, 2 amps of bicarbonate, and 1 amp of calcium and was subsequently intubated by myself with an ET tube 8.0 cm size. A chest x-ray post intubation showed diffuse bilateral pulmonary infiltrates. He was on NS at 100 mL an hour for the past 2 days. Also, he had a venous Doppler ultrasound on 02/18/2018, which showed no evidence of a DVT; however, it showed a pseudoaneurysm at the distal brachial artery measuring 3.6 x 2.2 x 2.2 cm, predominantly thrombosed; however, there was a small patent component with biphasic flow measuring 6 x 9 mm. A single lumen right PICC line was placed by interventional radiology on 02/22/2018. The patient also had an arterial Doppler ultrasound which was within normal. He was seen by Dr. Jensen from vascular surgery. In addition, the patient has been followed by podiatry and infectious disease. ABG postcode showed acute hypercapnic respiratory acidosis with a pH of 7.11, CO2 of 83, PaO2 of 99, bicarbonate 25, saturation 92% on PRVC mode, rate of 16, tidal volume 500, PEEP of 5, 100% FiO2, and I time 0.9. 03/06 Patient is sedated with Versed and Fenantl drips Levophed started overnight on 4 mics. Afebrile. Renal function worse this morning with C: 1.93 from 1.75 s/p transfusion 2U PRBC yesterday . 03/07: Remains sedated, arousable, orally intubated on mechanical ventilation. Sputum growing ESBL Klebsiella. 03/08 Patient remains intubated and Sedated with Fentanyl drip. Had T: 101 last night.Had an episode of hypoglycemia last night given D50 and placed on D10. 03/09 Patient remains sedated and intubated. T: 100 at 4 am. 03/10 Patient is intubated, sedated T:99.9. renal function is improving with Cr: 2.08 from 2.47 03/11 Patient remains intubated and sedated with Fentanyl drip. Afebrile. 03/12 Patient is off sedation intubated does not follow commands, afebrile. CT brain yesterday no acute findings. 03/13 Patient remains off sedation doesn't follow commands, T:100.3 last night. Renal function is improving with Cr: 1.47 from 1.65 03/14 Remains intubated, afebrile. TF om hold for emesis. Afebrile. 03/15 Patient remains intubated T:100.0 last night. 03/16: Patient remains intubated, sedated appears to follow some commands on sedation hold. Continues to have low-grade fever. Failed CPAP trial today due to severe tachypnea and low tidal volume. Chest x-ray shows worsening bilateral infiltrates/effusion. Will check CT to evaluate for infiltrate versus effusion. Also will increase Lasix to 40 mg every 12. Subjective 03/17: Remains intubated. T-max 100F. Opens eyes on sedation vacation. Failed CPAP 3 days due to apnea/tachypnea and low tidal problems. Objective Vital Signs / I&O: Vital Signs 03/16/18 10:57 03/16/18 11:00 03/16/18 12:00 Temperature Pulse Rate 97 H 96 H Respiratory Rate 16 Blood Pressure 123/68 126/72 Pulse Oximetry 99 100 94 L 03/16/18 13:00 03/16/18 13:16 03/16/18 14:00 Temperature Pulse Rate 95 H 97 H Respiratory Rate 15 16 Blood Pressure 141/86 H 150/86 H Pulse Oximetry 100 99 98 03/16/18 14:22 03/16/18 14:34 03/16/18 14:41 Temperature Pulse Rate 93 H 100 H Respiratory Rate 32 H 15 Blood Pressure 156/88 H 167/88 H Pulse Oximetry 100 100 100 03/16/18 14:56 03/16/18 14:57 03/16/18 15:00 Temperature Pulse Rate 93 H 96 H 96 H Respiratory Rate Blood Pressure 152/83 H 156/94 H 143/88 H Pulse Oximetry 100 100 100 03/16/18 16:00 03/16/18 16:55 03/16/18 17:00 Temperature Pulse Rate 96 H 101 H Respiratory Rate 15 Blood Pressure 160/95 H 176/105 H Pulse Oximetry 96 100 99 03/16/18 17:03 03/16/18 17:08 03/16/18 17:42 Temperature Pulse Rate 99 H 98 H 99 H Respiratory Rate Blood Pressure 177/101 H 170/102 H 162/95 H Pulse Oximetry 100 100 100 03/16/18 18:00 03/16/18 19:00 03/16/18 20:00 Temperature 98.6 F Pulse Rate 100 H 97 H 102 H Respiratory Rate Blood Pressure 174/95 H 159/89 H 152/90 H Pulse Oximetry 100 100 100 03/16/18 20:37 03/16/18 21:00 03/16/18 22:00 Temperature Pulse Rate 101 H 102 H Respiratory Rate 15 Blood Pressure 141/83 H 148/87 H Pulse Oximetry 96 98 100 03/16/18 23:00 03/17/18 00:00 03/17/18 01:00 Temperature Pulse Rate 105 H 103 H 104 H Respiratory Rate Blood Pressure 146/86 H 152/89 H 165/96 H Pulse Oximetry 100 99 100 03/17/18 02:00 03/17/18 03:00 03/17/18 03:40 Temperature Pulse Rate 105 H 103 H Respiratory Rate 15 Blood Pressure 127/75 139/81 Pulse Oximetry 100 98 100 03/17/18 04:00 03/17/18 05:00 03/17/18 06:00 Temperature 99.8 F H Pulse Rate 106 H 106 H 100 H Respiratory Rate Blood Pressure 123/74 129/77 119/77 Pulse Oximetry 100 100 98 03/17/18 07:00 Temperature Pulse Rate Respiratory Rate 15 Blood Pressure Pulse Oximetry 99 Intake & Output 03/16/18 03/17/18 03/17/18 18:59 06:59 18:59 Intake Total 1971 / 1971 1157 / 1157 50 / 50 Output Total 2250 / 2250 4600 / 4600 Balance -278 / -278 -3443 / -3443 50 / 50 Weight 84.2 kg Intake: IV 1350 / 1350 350 / 350 50 / 50 D5W/1/4 NS Inj 1,000 ML @ 50 1000 / 1000 mls/hr IV.CONT .Q20H KRISTIE Rx#: [id number] Avycaz Inj 2.5 GM In NS Inj 50 50 / 50 50 / 50 50 / 50 ML @ 25 mls/hr IV.SIG Q8H KRISTIE Rx#:[id number] Zyvox 600 mg Premix 300 ML @ 300 / 300 300 / 300 300 mls/hr IV.SIG Q12H KRISTIE Rx#: [id number] Tube Feeding 222 / 222 207 / 207 Water Bolus Amount 400 / 400 600 / 600 Output: Urine 4500 / 4500 Stool 300 / 300 100 / 100 Urine Amount (Catheter) 1949 Indwelling Urethral Catheter 1949 Other: Date of Last Bowel Movement 03/15/18 03/17/18 Result Diagrams: 03/16/18 03:40 03/17/18 05:15 Other Results: Microbiology 03/15/18 10:12 Blood - Peripheral Aerobic Blood Culture - Preliminary No growth in 1 day 03/15/18 10:12 Blood - Peripheral Anaerobic Blood Culture - Preliminary No growth in 1 day 03/13/18 11:10 Sputum - Endotracheal Gram Stain - Final 03/13/18 11:10 Sputum - Endotracheal Sputum Culture - Preliminary Klebsiella pneumoniae Multidrug Resistant 03/15/18 10:07 Blood - Peripheral Aerobic Blood Culture - Preliminary No growth in 1 day 03/15/18 10:07 Blood - Peripheral Anaerobic Blood Culture - Preliminary No growth in 1 day 03/13/18 11:10 Catheterized Urine Urine Culture - Final Nan albicans 03/06/18 15:00 Bronchial Washings - Left Lower Lobe Fungal Smear - Final No fungal elements seen 03/06/18 15:00 Bronchial Washings - Left Lower Lobe Fungal Culture - Preliminary No growth in 1 week 03/06/18 15:00 Bronchial Washings - Left Lower Lobe Acid Fast Bacilli Smear - Final No acid fast bacilli seen 03/06/18 15:00 Bronchial Washings - Left Lower Lobe Mycobacterial Culture - Preliminary No growth in 1 week 03/05/18 18:25 Blood - Peripheral Aerobic Blood Culture - Final No growth in 5 days 03/05/18 18:25 Blood - Peripheral Anaerobic Blood Culture - Final No growth in 5 days 03/05/18 18:10 Blood - Peripheral Aerobic Blood Culture - Final No growth in 5 days 03/05/18 18:10 Blood - Peripheral Anaerobic Blood Culture - Final No growth in 5 days 03/06/18 15:00 Bronchial - Left Lower Lobe Gram Stain - Final 03/06/18 15:00 Bronchial - Left Lower Lobe Bronchial Culture - Final Klebsiella pneumoniae ESBL pos S. aureus MRSA Proteus mirabilis 03/06/18 14:41 Fluid - Pleural fluid Gram Stain - Final 03/06/18 14:41 Fluid - Pleural fluid Body Fluid Culture - Final No growth in 72 hours (aerobically and anaerobically ) 03/03/18 19:53 Blood - Peripheral Aerobic Blood Culture - Final No growth in 5 days 03/03/18 19:53 Blood - Peripheral Anaerobic Blood Culture - Final No growth in 5 days 03/05/18 08:00 Sputum - Endotracheal Gram Stain - Final 03/05/18 08:00 Sputum - Endotracheal Sputum Culture - Final Klebsiella pneumoniae ESBL pos 03/05/18 11:25 Clean Catch Urine Urine Culture - Final No growth in 48 hours 03/05/18 14:00 Stool Occult Blood - Final Hemoccult negative Imaging: Abdomen/Pelvis CT 02/17/18 00:00 CONCLUSION: 1. Small bilateral pleural effusions and bilateral lower lung opacity again seen. 2. Mild splenomegaly again seen. 3. Gastrostomy tube in place. 4. No evidence of bowel dilatation. 5. Heterotopic ossification about the left hip again seen. 6. Calcified adrenal glands again seen. 7. Enlarged inguinal lymph nodes again seen. Venous Doppler Study 02/18/18 00:00 CONCLUSION: 1. No DVT or SVT. 2. 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 This measures 3.6 x 2.2 x 2.2 cm and is predominantly thrombosed with a small, 6 x 9 mm patent component showing biphasic flow. Central Venous Line 02/22/18 00:00 CONCLUSION: 1. Uncomplicated tunneled central venous Power PICC line placement. 2. The PICC line can be used immediately. Foot MRI 02/22/18 00:00 CONCLUSION: 1. Osteomyelitis of the mid and distal fifth metatarsal with erosive changes at the fifth metatarsal head. There is surrounding cellulitis and edematous changes in the soft tissues of the foot. No other areas of osteomyelitis identified. Foot MRI 02/22/18 00:00 CONCLUSION: 1. Findings most characteristic of early osteomyelitis at the medial aspect of the first metatarsal head and a tiny focus of probable osteomyelitis at the medial corner of the proximal phalanx great toe. Mild surrounding cellulitis. 2. Previous partial amputation fifth metatarsal. Extremity Arterial Study 02/26/18 00:00 CONCLUSION: 1. Normal ABIs bilaterally. Chest X-Ray 03/03/18 17:52 CONCLUSION: 1. Diffuse opacity throughout the right lung characteristic of airspace disease and pleural effusion. 2. Increased opacity left lung base characteristic of airspace disease and possible pleural fluid. 3. Right jugular central venous catheter directed cephalad Chest CT 03/05/18 00:00 CONCLUSION: 1. Bilateral effusions and diffuse bilateral consolidation. Chest X-Ray 03/05/18 00:00 CONCLUSION: 1. Interval advancement of the endotracheal tube, now appropriately positioned 3.5 cm above the luz mraia. 2. Right IJ central venous catheter remains directed cephalad. 3. Hazy opacification throughout both lungs in a basilar predominance. Acuna Line Insertion 03/05/18 00:00 CONCLUSION: 1. Uncomplicated Acuna catheter placement as above. Chest X-Ray 03/05/18 06:44 CONCLUSION: 1. The right IJ central venous catheter remains directed cephalad, with distal tip beyond the superior field of view. 2. Endotracheal tube with distal tip superior to the midclavicular heads, approximately 8.5 cm above the luz maria. This could be advanced. 3. Persistent opacification of the right hemithorax and left lung base, now with dense opacification in the left superhilar region. Chest X-Ray 03/06/18 11:11 CONCLUSION: Bilateral effusions and consolidation. Chest X-Ray 03/06/18 14:57 CONCLUSION: Diffuse edema versus pneumonia. There is no evidence of pneumothorax. Chest X-Ray 03/07/18 00:00 CONCLUSION: No significant change. Diffuse bilateral parenchymal consolidation and small pleural effusions similar to before. Head CT 03/11/18 08:30 CONCLUSION: 1. Stable sinus disease. 2. White matter disease and remote infarcts. . Chest X-Ray 03/11/18 08:31 CONCLUSION: Slight improved aeration. Abdomen X-Ray 03/13/18 12:21 CONCLUSION: Bilateral adrenal calcifications. Chest X-Ray 03/15/18 08:22 CONCLUSION: Diffuse edema versus pneumonia. There has been no significant change when compared to the prior exam. Chest CT 03/16/18 12:58 CONCLUSION: 1. Persistent bilateral pleural effusions and areas of airspace consolidation and groundglass opacity. This process is overall significantly improved as compared to the exam of March 05, 2018 and slightly improved/stable from the exam of March 15, 2018. Findings are consistent with multifocal pneumonia versus severe respiratory distress secondary to pulmonary edema. 2. There is persistent left supraclavicular adenopathy as well as adenopathy within the mediastinum. Correlate with prior known history of malignancy. Objective Remarks: GENERAL: Patient is 47 yo intubated and sedated on sedation lightening follows some commands SKIN: Warm and dry. HEAD: Normocephalic. EYES: No scleral icterus. No injection or drainage. NECK: Supple, trachea midline. No JVD or lymphadenopathy. CARDIOVASCULAR: Regular rate and rhythm without murmurs, gallops, or rubs. RESPIRATORY: Breath sounds equal bilaterally. Basilar coarse crackles and diminished breath sounds GASTROINTESTINAL: Abdomen soft, non-tender, nondistended. + PEG tube MUSCULOSKELETAL: Trace bilateral lower edema. Neuro intubated, intermittently follows commands no focal deficits Assessment and Plan - Assessment and Plan Plan: 1. Acute respiratory failure 2. S/p PEA arrest 3. Diffuse bilateral pulmonary infiltrates, aspiration pneumonia/Klebsiella ESBL positive sputum/MRSA and fluid overload. 4. Hypertension. 5. Acute kidney injury. 6. History CVA with left-sided hemiparesis. 7. 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 8. Bilateral foot osteomyelitis methicillin-resistant Staphylococcus aureus. 9. Hyperlipidemia 10. Anemia of chronic inflammation 11. Seizure disorder NOS Plan Neuro: off sedation monitor neuro status on levetiracetam 500 mg t.i.d. for a history of seizures. CT brain 03/11: No acute findings. EEG: Mild slowing Pulm: Continue with ventilatory support and maintain sats> 92%. On PRVC RR 15, TV 550, IT:0.9, PEEP:5, FIO2: 35% Bronchodilators with albuterol/ipratropium aerosols every 4 hours with albuterol aerosols every 2 hours as needed dyspnea, ICU vent bundle. SBT daily as demond. Check CXR in a.m. 03/18. Failed CPAP trials today due to low tidal volume and severe tachypnea s/p diagnostic US guided thoracentesis 40ml removed ( transudative fluid ) CT 03/16 performed with small right pleural effusion. Tiny left pleural effusion Bronch with BAL 03/06 showed secretions L>R suctioned to clear, BAL performed LLL. BAL: Kleb pneumonia ESBL, Proteus Mirabilis, MRSA. Recent sputum session with resistant Klebsiella CV: Monitor HR and BP and maintain MAP> 65 mmHg. Echo showed EF 60-65% : Monitor renal function, I's and O's , electrolytes replacement per protocol Renal function is improving with Cr: 1.2 today. Will need K and magnesium replacement today Continue with Free water 200 every 6 monitor sodium level Furosemide 40 mg daily GI: On lansoprazole 30 mg daily. Resume tube feeds- Nepro with goal rate 550ml/hr per nutrition's recommendations KUB 03/13: No obstructing bowel gas pattern. ID: Continue with abx (Avycaz, Diflucan, Zyvox) ID is following. Sputum cx 03/13: MDR Klebsiella Urine cx: Nan Albicans 03/13 Follow up on Blood and urine cx from 03/05- NGTD 03/05 Sputum cx: ESBL Klebsiella BAL cx 03/06: Kleb pneumonia ESBL, Proteus Mirabilis, MRSA Wound culture growing MRSA from osteomyelitis site. Heme: Monitor CBC and coags. s/p transfusion 2u PRBC 03/05 heme occult negative Endo: SSI with Accu-Cheks for glycemic control. GI prophylaxis- On Prevacid DVT prophylaxis- SCD, heparin SQ held for anemia requiring blood transfusion. IV access: RUE single lumen PICC line repositioned by IR 03/05 Level 2 follow-up
[2018-03-17] MEDS: Ascorbic Acid 500 MG Tablet G-TUBE SCH ×2 (10:40→20:37)
[2018-03-17] MEDS: levETIRAcetam 500 MG Tablet G-TUBE SCH ×3 (10:40→18:33)
[2018-03-17] MEDS: Senna/Docusate Sodium 8.6/50 MG Tablet G-TUBE SCH ×2 (10:41→20:37)
[2018-03-17] MEDS ORDERED: Mag Sulf 1 gm/100 ml Premix 100 ML IV.SIG SCH (13:00)
[2018-03-17] MEDS ORDERED: Potassium Chloride 25 MEQ Effervescent Tablet PO ONE (13:00)
--- NOTE | 2018-03-17 14:29 | P.PNID ---
Subjective Remarks: off pressors, on vent FiO2 45% Febrile up to 100.4 secretions heavy Growing yeast in 1 blood clx bottle afebrie cont to haver heavy diarrhea no PIVs Sputum with carbapenem R and ESBL+ Kleb growing ESBL, MRSA and Protes S to Ertapenem from BAL pleural fluid negative @ 72 hrs Nan in the urine CT done yaday and showed Persistent bilateral pleural effusions and areas of airspace consolidation and groundglass opacity.consistent with multifocal pneumonia Antibiotics: avycaz zyvox micafungin fluconazol Lines: HIchmann R chest placen on 03/05 Allergies/Adverse Reactions: Allergies No Known Allergies Allergy (Unknown, Uncoded 01/06/18 21:04) Objective Vital Signs 03/16/18 14:22 03/16/18 14:34 03/16/18 14:41 Temperature Pulse Rate 93 H 100 H Respiratory Rate 32 H 15 Blood Pressure 156/88 H 167/88 H Pulse Oximetry 100 100 100 03/16/18 14:56 03/16/18 14:57 03/16/18 15:00 Temperature Pulse Rate 93 H 96 H 96 H Respiratory Rate Blood Pressure 152/83 H 156/94 H 143/88 H Pulse Oximetry 100 100 100 03/16/18 16:00 03/16/18 16:55 03/16/18 17:00 Temperature Pulse Rate 96 H 101 H Respiratory Rate 15 Blood Pressure 160/95 H 176/105 H Pulse Oximetry 96 100 99 03/16/18 17:03 03/16/18 17:08 03/16/18 17:42 Temperature Pulse Rate 99 H 98 H 99 H Respiratory Rate Blood Pressure 177/101 H 170/102 H 162/95 H Pulse Oximetry 100 100 100 03/16/18 18:00 03/16/18 19:00 03/16/18 20:00 Temperature 98.6 F Pulse Rate 100 H 97 H 102 H Respiratory Rate Blood Pressure 174/95 H 159/89 H 152/90 H Pulse Oximetry 100 100 100 03/16/18 20:37 03/16/18 21:00 03/16/18 22:00 Temperature Pulse Rate 101 H 102 H Respiratory Rate 15 Blood Pressure 141/83 H 148/87 H Pulse Oximetry 96 98 100 03/16/18 23:00 03/17/18 00:00 09/09/18 01:00 Temperature Pulse Rate 105 H 103 H 104 H Respiratory Rate Blood Pressure 146/86 H 152/89 H 165/96 H Pulse Oximetry 100 99 100 03/17/18 02:00 03/17/18 03:00 03/17/18 03:40 Temperature Pulse Rate 105 H 103 H Respiratory Rate 15 Blood Pressure 127/75 139/81 Pulse Oximetry 100 98 100 03/17/18 04:00 03/17/18 05:00 03/17/18 06:00 Temperature 99.8 F H Pulse Rate 106 H 106 H 100 H Respiratory Rate Blood Pressure 123/74 129/77 119/77 Pulse Oximetry 100 100 98 03/17/18 07:00 03/17/18 08:00 03/17/18 09:00 Temperature 99.5 F Pulse Rate 96 H 96 H 92 H Respiratory Rate 15 Blood Pressure 128/76 140/69 126/72 Pulse Oximetry 93 L 96 99 03/17/18 10:00 03/17/18 10:17 03/17/18 11:10 Temperature 100.4 F H Pulse Rate 92 H 101 H Respiratory Rate 18 31 H Blood Pressure 130/71 Pulse Oximetry 100 96 03/17/18 13:28 Temperature Pulse Rate Respiratory Rate 15 Blood Pressure Pulse Oximetry 97 Intake & Output 03/16/18 03/17/18 03/17/18 18:59 06:59 18:59 Intake Total 1971 / 1971 1157 / 1157 150 / 150 Output Total 2250 / 2250 4600 / 4600 Balance -278 / -278 -3443 / -3443 150 / 150 Weight 84.2 kg Intake: IV 1350 / 1350 350 / 350 150 / 150 D5W/1/4 NS Inj 1,000 ML @ 50 1000 / 1000 mls/hr IV.CONT .Q20H KRISTIE Rx#: [id number] Avycaz Inj 2.5 GM In NS Inj 50 50 / 50 50 / 50 50 / 50 ML @ 25 mls/hr IV.SIG Q8H KRISTIE Rx#:[id number] Zyvox 600 mg Premix 300 ML @ 300 / 300 300 / 300 300 mls/hr IV.SIG Q12H KRISTIE Rx#: [id number] KCl 40 mEq Premix Inj 40 meq In 100 / 100 100 ml @ 25 mls/hr IV.SIG Q2H PRN Rx#:[id number] Tube Feeding 222 / 222 207 / 207 Water Bolus Amount 400 / 400 600 / 600 Output: Urine 4500 / 4500 Stool 300 / 300 100 / 100 Urine Amount (Catheter) 1949 Indwelling Urethral Catheter 1949 Other: Date of Last Bowel Movement 03/15/18 03/17/18 03/17/18 03/13/18 11:10 Sputum - Endotracheal Gram Stain - Final 03/13/18 11:10 Sputum - Endotracheal Sputum Culture - Preliminary Klebsiella pneumoniae Multidrug Resistant 03/15/18 10:12 Blood - Peripheral Aerobic Blood Culture - Preliminary No growth in 2 days 03/15/18 10:12 Blood - Peripheral Anaerobic Blood Culture - Preliminary Yeast - ID to follow 03/15/18 10:07 Blood - Peripheral Aerobic Blood Culture - Preliminary No growth in 2 days 03/15/18 10:07 Blood - Peripheral Anaerobic Blood Culture - Preliminary No growth in 2 days 03/13/18 11:10 Catheterized Urine Urine Culture - Final Nan albicans Lab - Hematology Results 03/16/18 03:40 WBC 7.8 RBC 2.57 L Hgb 7.9 L Hct 22.7 L MCV 88.4 MCH 30.8 MCHC 34.8 RDW 15.1 Plt Count 168 MPV 7.6 Neut % (Auto) 78.6 H Lymph % (Auto) 13.0 [place] % (Auto) 5.4 Eos % (Auto) 2.6 Baso % (Auto) 0.4 Neut # (Auto) 6.1 Lymph # (Auto) 1.0 [place] # (Auto) 0.4 Eos # (Auto) 0.2 Baso # (Auto) 0.0 WBC Differential . Differential Comment Auto diff final Lab - Chemistry Results 03/15/18 03/15/18 03/15/18 20:00 21:57 23:39 Sodium Potassium 3.3 L Chloride Carbon Dioxide Anion Gap BUN Creatinine Estimated GFR POC Glucose 128 H 114 H Random Glucose Calcium Phosphorus Magnesium Total Bilirubin AST ALT Alkaline Phosphatase Total Protein Albumin 03/16/18 03/16/18 03/16/18 03:32 03:40 17:44 Sodium 145 Potassium 3.9 Chloride 107 Carbon Dioxide 29.0 Anion Gap 9 BUN 15 Creatinine 1.11 Estimated GFR 86 L POC Glucose 110 118 H Random Glucose 100 Calcium 8.0 L Phosphorus 3.6 Magnesium 1.5 Total Bilirubin 0.3 AST 37 ALT 37 Alkaline Phosphatase 133 H Total Protein 6.8 Albumin 1.9 L 03/16/18 03/17/18 03/17/18 20:19 00:36 05:15 Sodium 144 Potassium 3.0 L D Chloride 104 Carbon Dioxide 30.2 Anion Gap 10 BUN 15 Creatinine 1.21 Estimated GFR 78 L POC Glucose 117 H 134 H Random Glucose 103 Calcium 8.6 Phosphorus 4.1 Magnesium 1.5 Total Bilirubin 0.4 AST 37 ALT 36 Alkaline Phosphatase 138 H Total Protein 7.4 D Albumin 2.0 L 03/17/18 05:37 Sodium Potassium Chloride Carbon Dioxide Anion Gap BUN Creatinine Estimated GFR POC Glucose 130 H Random Glucose Calcium Phosphorus Magnesium Total Bilirubin AST ALT Alkaline Phosphatase Total Protein Albumin Imaging: ITS Impressions Abdomen/Pelvis CT 02/17/18 00:00 CONCLUSION: 1. Small bilateral pleural effusions and bilateral lower lung opacity again seen. 2. Mild splenomegaly again seen. 3. Gastrostomy tube in place. 4. No evidence of bowel dilatation. 5. Heterotopic ossification about the left hip again seen. 6. Calcified adrenal glands again seen. 7. Enlarged inguinal lymph nodes again seen. Venous Doppler Study 02/18/18 00:00 CONCLUSION: 1. No DVT or SVT. 2. 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 This measures 3.6 x 2.2 x 2.2 cm and is predominantly thrombosed with a small, 6 x 9 mm patent component showing biphasic flow. Central Venous Line 02/22/18 00:00 CONCLUSION: 1. Uncomplicated tunneled central venous Power PICC line placement. 2. The PICC line can be used immediately. Foot MRI 02/22/18 00:00 CONCLUSION: 1. Findings most characteristic of early osteomyelitis at the medial aspect of the first metatarsal head and a tiny focus of probable osteomyelitis at the medial corner of the proximal phalanx great toe. Mild surrounding cellulitis. 2. Previous partial amputation fifth metatarsal. Extremity Arterial Study 02/26/18 00:00 CONCLUSION: 1. Normal ABIs bilaterally. Acuna Line Insertion 03/05/18 00:00 CONCLUSION: 1. Uncomplicated Acuna catheter placement as above. Head CT 03/11/18 08:30 CONCLUSION: 1. Stable sinus disease. 2. White matter disease and remote infarcts. . Abdomen X-Ray 03/13/18 12:21 CONCLUSION: Bilateral adrenal calcifications. Chest X-Ray 03/15/18 08:22 CONCLUSION: Diffuse edema versus pneumonia. There has been no significant change when compared to the prior exam. Chest CT 03/16/18 12:58 CONCLUSION: 1. Persistent bilateral pleural effusions and areas of airspace consolidation and groundglass opacity. This process is overall significantly improved as compared to the exam of March 05, 2018 and slightly improved/stable from the exam of March 15, 2018. Findings are consistent with multifocal pneumonia versus severe respiratory distress secondary to pulmonary edema. 2. There is persistent left supraclavicular adenopathy as well as adenopathy within the mediastinum. Correlate with prior known history of malignancy. Physical Exam: GENERAL: NAD SKIN: Warm and dry. HEAD: Atraumatic. Normocephalic. EYES: Pupils equal and round. No scleral icterus. No injection or drainage. ENT: No nasal bleeding or discharge. Mucous membranes pink and moist. CARDIOVASCULAR: Regular rate and rhythm. RESPIRATORY: No accessory muscle use. Diffuse rhonchi to auscultation. Breath sounds equal bilaterally. GASTROINTESTINAL: Abdomen soft, non-tender, distended. Hepatic and splenic margins not palpable. PEG in place, large amount of liquid stool in dignicheild MUSCULOSKELETAL: Extremities without clubbing, cyanosis, or edema. No obvious deformities. B/l feet with dressings in place + edema NEUROLOGICAL: awake, alert, communicates L side hemiplegia, contracted PSYCHIATRIC: unable to assess LINES: HIckmann in place L chest, site looks OK Assessment and Plan - Plan B/L foot osteomyelitis MRSA, on vancomycin - trough level too high Anemia likely 2/2 vanco Mild CEDRIC, likely 2/2 vanco - pt has 2 adverse effects from vancomycin so far, I will recommend to avoid vancomycin Aspiration PNA - growing ESBL + ? carbapenem R kleb pneumo, S to avycaz, colistin R zerbaxa previously MRSA and Proteus acute VDRF Diarreha, C.diff negative CEDRIC : GFR 80 today -no eos in urine Funguria New issuew candidemia ? source HIckmann dc ZYvox cont AVYCAZ start micufungin cont fluconazol for now Consult IR fro HIckmann removal and placemennt a new access eventually repeat BC 2 D echo dilated funduscopic exam by ophthalmology when clears fugemia dw Dr Tristan lin RN
--- NOTE | 2018-03-17 15:57 | P.PNPL ---
Subjective Interval history: 47 YO male with RF, on vent On Vent, fi02 45% Off sedation Opens eyes No N,V Low grade fever did't tolerate CPAP Physical Exam Vital signs: Vital Signs 03/16/18 16:00 03/16/18 16:55 03/16/18 17:00 Temperature Pulse Rate 96 H 101 H Respiratory Rate 15 Blood Pressure 160/95 H 176/105 H Pulse Oximetry 96 100 99 03/16/18 17:03 03/16/18 17:08 03/16/18 17:42 Temperature Pulse Rate 99 H 98 H 99 H Respiratory Rate Blood Pressure 177/101 H 170/102 H 162/95 H Pulse Oximetry 100 100 100 03/16/18 18:00 03/16/18 19:00 03/16/18 20:00 Temperature 98.6 F Pulse Rate 100 H 97 H 102 H Respiratory Rate Blood Pressure 174/95 H 159/89 H 152/90 H Pulse Oximetry 100 100 100 03/16/18 20:37 03/16/18 21:00 03/16/18 22:00 Temperature Pulse Rate 101 H 102 H Respiratory Rate 15 Blood Pressure 141/83 H 148/87 H Pulse Oximetry 96 98 100 03/16/18 23:00 03/17/18 00:00 03/17/18 01:00 Temperature Pulse Rate 105 H 103 H 104 H Respiratory Rate Blood Pressure 146/86 H 152/89 H 165/96 H Pulse Oximetry 100 99 100 03/17/18 02:00 03/17/18 03:00 03/17/18 03:40 Temperature Pulse Rate 105 H 103 H Respiratory Rate 15 Blood Pressure 127/75 139/81 Pulse Oximetry 100 98 100 03/17/18 04:00 03/17/18 05:00 03/17/18 06:00 Temperature 99.8 F H Pulse Rate 106 H 106 H 100 H Respiratory Rate Blood Pressure 123/74 129/77 119/77 Pulse Oximetry 100 100 98 03/17/18 07:00 03/17/18 08:00 03/17/18 09:00 Temperature 99.5 F Pulse Rate 96 H 96 H 92 H Respiratory Rate 15 Blood Pressure 128/76 140/69 126/72 Pulse Oximetry 93 L 96 99 03/17/18 10:00 03/17/18 10:17 03/17/18 11:10 Temperature 100.4 F H Pulse Rate 92 H 101 H Respiratory Rate 18 31 H Blood Pressure 130/71 Pulse Oximetry 100 96 03/17/18 13:28 Temperature Pulse Rate Respiratory Rate 15 Blood Pressure Pulse Oximetry 97 Intake & Output 03/16/18 03/17/18 03/17/18 18:59 06:59 18:59 Intake Total 1971 1157 / 1157 150 / 150 Output Total 2250 / 2250 4600 / 4600 Balance -278 / -278 -3443 / -3443 150 / 150 Weight 84.2 kg Intake: IV 1350 / 1350 350 / 350 150 / 150 D5W/1/4 NS Inj 1,000 ML @ 50 1000 / 1000 mls/hr IV.CONT .Q20H KRISTIE Rx#: [id number] Avycaz Inj 2.5 GM In NS Inj 50 50 / 50 50 / 50 50 / 50 ML @ 25 mls/hr IV.SIG Q8H KRISTIE Rx#:[id number] Zyvox 600 mg Premix 300 ML @ 300 / 300 300 / 300 300 mls/hr IV.SIG Q12H KRISTIE Rx#: [id number] KCl 40 mEq Premix Inj 40 meq In 100 / 100 100 ml @ 25 mls/hr IV.SIG Q2H PRN Rx#:[id number] Tube Feeding 222 / 222 207 / 207 Water Bolus Amount 400 / 400 600 / 600 Output: Urine 4500 / 4500 Stool 300 / 300 100 / 100 Urine Amount (Catheter) 1949 Indwelling Urethral Catheter 1949 Other: Date of Last Bowel Movement 03/15/18 03/17/18 03/17/18 GENERAL: WBWN male, opens eyes and nods appropriatly SKIN: Warm and dry. HEAD: Normocephalic. EYES: No scleral icterus. No injection or drainage. NECK: Supple, trachea midline. No JVD or lymphadenopathy. CARDIOVASCULAR: Regular rate and rhythm without murmurs, gallops, or rubs. RESPIRATORY: Breath sounds equal bilaterally. No accessory muscle use. GASTROINTESTINAL: Abdomen soft, non-tender, nondistended. MUSCULOSKELETAL: No cyanosis, or edema. BACK: Nontender without obvious deformity. No CVA tenderness. - Urinary Catheter Management Indwelling Urethral Catheter Cath placed during this visit: yes Reason for continuing: Acute urinary retention Insertion date: 03/05/18 Insertion time: 08:00 Assessment and Plan - Plan IMPRESSION: 1. Bilateral lung infiltrates. 2. Small pleural effusion. 3. Osteomyelitis of both feet. 4. Diabetes mellitus. 5. Cerebrovascular accident with left-sided contracture. 6. VDRF 7. S/P cardiopulm arrest. PLAN: Vent Support Cont Abx per ID Aerosol nebs monitor Pl eff Monitor renal functions. Tube feeding
[2018-03-17] MEDS: Micafungin Inj 150 MG in Sodium Chlor 0.9% Inj 100 ML IV.SIG SCH (16:57)
[2018-03-17] MEDS: Mag Sulf 1 gm/100 ml Premix 100 ML IV.SIG SCH ×2 (16:58→18:32)
[2018-03-17] MEDS: Hypromellose 0.3% Opth Gel 10 GM Bottle EACH EYE SCH (21:19)
[2018-03-18] MEDS: Insulin NovoLIN Regular Correctional Sugar Inj SQ SCH ×6 (01:05→21:01)
[2018-03-18] MEDS: Ceftazidime/Avibactam Inj 2.5 GM in Sodium Chlor 0.9% Inj 50 ML IV.SIG SCH ×3 (04:31→21:00)
[2018-03-18] MEDS: Dextrose 5%/NaCl 0.225% Inj 1,000 ML IV.CONT SCH (04:31)
[2018-03-18 04:54] LABS: Alanine Aminotransferase 32 U/L (12-78); Albumin 1.9 g/dL (3.4-5.0); Alkaline Phosphatase 136 U/L (45-117); Anion Gap 10 meq/L (5-15); Aspartate Aminotransferase 34 U/L (15-37); Blood Urea Nitrogen 14 mg/dL (7-18); Calcium 7.9 mg/dL (8.5-10.1); Carbon Dioxide 28.5 meq/L (21.0-32.0); Chloride 105 meq/L (98-107); Glomerular Filtration Rate 79 mL/min (>89); Glucose,Random 125 mg/dL (74-106); Magnesium 2.2 mg/dL (1.5-2.5); Phosphorus 3.6 mg/dL (2.5-4.9); Potassium 3.5 meq/L (3.5-5.1); Sodium 143 meq/L (136-145); Total Protein 7.1 g/dL (6.4-8.2)
[2018-03-18 04:55] LABS: Baso % (Auto) 0.4 % (0.0-2.0); Eos # (Auto) 0.2 th/mm3 (0.0-0.4); Eos % (Auto) 3.2 % (0.0-4.0); Hematocrit 22.6 % (39.0-51.0); Hemoglobin 7.5 gm/dL (13.0-17.0); Lymph # (Auto) 1.3 th/mm3 (1.0-4.8); Lymph % (Auto) 17.5 % (9.0-44.0); Mean Corpuscular HGB Conc 33.4 % (32.0-36.0); Mean Corpuscular Hemoglobin 29.9 pg (27.0-34.0); Mean Corpuscular Volume 89.5 fL (80.0-100.0); Mean Platelet Volume 7.7 fL (7.0-11.0); Mono # (Auto) 0.5 th/mm3 (0.0-0.9); Mono % (Auto) 6.7 % (0.0-8.0); Neut # (Auto) 5.3 th/mm3 (1.8-7.7); Neut % (Auto) 72.2 % (16.0-70.0); Platelet Count 205 th/mm3 (150-450); Red Blood Count 2.52 mil/mm3 (4.50-5.90); Red Cell Distribution Width 15.5 % (11.6-17.2); White Blood Count 7.3 th/mm3 (4.0-11.0)
[2018-03-18] MEDS ORDERED: Morphine Sulfate Inj 2 MG/ML Vial ONE (08:43)
[2018-03-18] MEDS ORDERED: Midazolam Inj 5 MG/ML 1 ML Vial ONE ×2 (08:43→09:27)
--- NOTE | 2018-03-18 09:24 | P.PNCC ---
Subjective Subjective Remarks/Hospital Course: The patient is a 47-year-old male with a past medical history of a CVA with left -sided hemiparesis, hypertension, diabetes mellitus, anemia of chronic disease, CHF, dysphagia, status post PEG tube placement, depression, nonverbal, who was admitted under the hospitalist service on 02/17/2018 for acute on chronic anemia. In addition, the patient has a history of bilateral foot osteomyelitis. During his hospital course, he had worsening renal function with a creatinine of 1.74 this morning from 1.1 on admission. In addition, the patient was found hypernatremic with a sodium level of 156 and hyperkalemic with a potassium level 5.3. A halicat was called 2 days ago for shortness of breath, and this morning the patient had a PEA arrest. ACLS protocol was initiated and the patient received epinephrine x3, 2 amps of bicarbonate, and 1 amp of calcium and was subsequently intubated by myself with an ET tube 8.0 cm size. A chest x-ray post intubation showed diffuse bilateral pulmonary infiltrates. He was on NS at 100 mL an hour for the past 2 days. Also, he had a venous Doppler ultrasound on 02/18/2018, which showed no evidence of a DVT; however, it showed a pseudoaneurysm at the distal brachial artery measuring 3.6 x 2.2 x 2.2 cm, predominantly thrombosed; however, there was a small patent component with biphasic flow measuring 6 x 9 mm. A single lumen right PICC line was placed by interventional radiology on 02/22/2018. The patient also had an arterial Doppler ultrasound which was within normal. He was seen by Dr. Jensen from vascular surgery. In addition, the patient has been followed by podiatry and infectious disease. ABG postcode showed acute hypercapnic respiratory acidosis with a pH of 7.11, CO2 of 83, PaO2 of 99, bicarbonate 25, saturation 92% on PRVC mode, rate of 16, tidal volume 500, PEEP of 5, 100% FiO2, and I time 0.9. 03/06 Patient is sedated with Versed and Fenantl drips Levophed started overnight on 4 mics. Afebrile. Renal function worse this morning with C: 1.93 from 1.75 s/p transfusion 2U PRBC yesterday . 03/07: Remains sedated, arousable, orally intubated on mechanical ventilation. Sputum growing ESBL Klebsiella. 03/08 Patient remains intubated and Sedated with Fentanyl drip. Had T: 101 last night.Had an episode of hypoglycemia last night given D50 and placed on D10. 03/09 Patient remains sedated and intubated. T: 100 at 4 am. 03/10 Patient is intubated, sedated T:99.9. renal function is improving with Cr: 2.08 from 2.47 03/11 Patient remains intubated and sedated with Fentanyl drip. Afebrile. 03/12 Patient is off sedation intubated does not follow commands, afebrile. CT brain yesterday no acute findings. 03/13 Patient remains off sedation doesn't follow commands, T:100.3 last night. Renal function is improving with Cr: 1.47 from 1.65 03/14 Remains intubated, afebrile. TF om hold for emesis. Afebrile. 03/15 Patient remains intubated T:100.0 last night. 03/16: Patient remains intubated, sedated appears to follow some commands on sedation hold. Continues to have low-grade fever. Failed CPAP trial today due to severe tachypnea and low tidal volume. Chest x-ray shows worsening bilateral infiltrates/effusion. Will check CT to evaluate for infiltrate versus effusion. Also will increase Lasix to 40 mg every 12. Subjective 03/17: Remains intubated. T-max 100F. Opens eyes on sedation vacation. Failed CPAP 3 days due to apnea/tachypnea and low tidal problems. 03/18: Remains intubated off sedation. Now with worsening sepsis fever 100.9 T- max, candidemia on cultures from 03/15/2018. Growing yeast. Most likely source Acuna catheter on the right side. I have placed a left subclavian central line. IR to remove the Acuna catheter GILDA discussed with Dr. Paul. Continues to fail CPAP trial most likely needs tracheostomy if he fails to be in after draining the right pleural effusion Objective Vital Signs / I&O: Vital Signs 03/17/18 10:00 03/17/18 10:17 03/17/18 11:00 Temperature 100.4 F H Pulse Rate 92 H 101 H Respiratory Rate 18 Blood Pressure 130/71 124/66 Pulse Oximetry 100 96 98 03/17/18 11:10 03/17/18 12:00 03/17/18 13:00 Temperature 100.1 F H Pulse Rate 101 H 97 H 104 H Respiratory Rate 31 H Blood Pressure 120/72 129/73 Pulse Oximetry 97 97 03/17/18 13:28 03/17/18 14:00 03/17/18 15:00 Temperature Pulse Rate 104 H 104 H Respiratory Rate 15 Blood Pressure 121/67 122/69 Pulse Oximetry 97 96 97 03/17/18 16:00 03/17/18 16:06 03/17/18 17:00 Temperature 99.9 F H Pulse Rate 101 H 102 H Respiratory Rate 15 Blood Pressure 127/76 136/80 Pulse Oximetry 95 96 99 03/17/18 18:00 03/17/18 19:00 03/17/18 20:00 Temperature 100.9 F H 99.8 F H Pulse Rate 101 H 102 H 100 H Respiratory Rate Blood Pressure 140/78 149/93 H 137/76 Pulse Oximetry 99 99 100 03/17/18 20:40 03/17/18 21:00 03/17/18 22:00 Temperature Pulse Rate 97 H 97 H 101 H Respiratory Rate 15 Blood Pressure 152/84 H 153/86 H Pulse Oximetry 100 100 100 03/17/18 23:00 03/18/18 00:00 03/18/18 00:20 Temperature 99.4 F Pulse Rate 104 H 105 H Respiratory Rate 15 Blood Pressure 143/76 H Pulse Oximetry 100 100 100 03/18/18 00:22 03/18/18 00:38 03/18/18 01:00 Temperature Pulse Rate 102 H 101 H 102 H Respiratory Rate 15 Blood Pressure 138/80 141/82 H Pulse Oximetry 100 100 03/18/18 02:00 03/18/18 03:00 03/18/18 04:00 Temperature 100.4 F H Pulse Rate 94 H 93 H 92 H Respiratory Rate Blood Pressure 135/77 141/82 H 143/80 H Pulse Oximetry 84 L 83 L 98 03/18/18 04:53 03/18/18 04:54 03/18/18 05:00 Temperature Pulse Rate 91 H 90 Respiratory Rate 15 15 Blood Pressure 159/85 H Pulse Oximetry 100 83 L 03/18/18 06:00 03/18/18 08:25 Temperature Pulse Rate 89 86 Respiratory Rate 15 Blood Pressure 171/90 H Pulse Oximetry 100 93 L Intake & Output 03/17/18 03/18/18 03/18/18 18:59 06:59 18:59 Intake Total 1651 / 1651 1493 / 1493 Output Total 700 / 700 1700 / 1700 Balance 951 / 951 -207 / -207 Weight 88.3 kg Intake: IV 800 / 800 550 / 550 Avycaz Inj 2.5 GM In NS Inj 50 100 / 100 50 / 50 ML @ 25 mls/hr IV.SIG Q8H KRISTIE Rx#:[id number] Zyvox 600 mg Premix 300 ML @ 300 / 300 300 / 300 300 mls/hr IV.SIG Q12H KRISTIE Rx#: [id number] Magnesium Sulfate 1 gm/D5W 100 100 / 100 100 / 100 ml Premix 100 ML @ 100 mls/hr IV.SIG Q1H KRISTIE Rx#:[id number] Mycamine Inj 150 MG In NS Inj 100 / 100 100 ML @ 100 mls/hr IV.SIG Q24H KRISTIE Rx#:[id number] KCl 20 mEq Premix Inj 20 meq In 100 / 100 100 ml @ 50 mls/hr IV.SIG Q2H PRN Rx#:[id number] KCl 40 mEq Premix Inj 40 meq In 200 / 200 100 ml @ 25 mls/hr IV.SIG Q2H PRN Rx#:[id number] Tube Feeding 251 / 251 343 / 343 Tube Irrigant 600 / 600 Water Bolus Amount 600 / 600 Output: Urine 650 / 650 900 / 900 Stool 50 / 50 800 / 800 Other: Date of Last Bowel Movement 03/17/18 03/17/18 Result Diagrams: 03/18/18 04:20 03/18/18 04:20 Objective Remarks: GENERAL: Patient is 47 yo intubated and sedated on sedation lightening follows some commands on right side. Critically ill septic SKIN: Warm and dry. HEAD: Normocephalic. EYES: No scleral icterus. No injection or drainage. NECK: Supple, trachea midline. No JVD or lymphadenopathy. CARDIOVASCULAR: Regular rate and rhythm without murmurs, gallops, or rubs. RESPIRATORY: Breath sounds equal bilaterally. Basilar crackles and diminished breath sounds GASTROINTESTINAL: Abdomen soft, non-tender, nondistended. + PEG tube MUSCULOSKELETAL: Trace bilateral lower edema. Neuro intubated, intermittently follows commands on right side, flaccid on the left side Assessment and Plan - Assessment and Plan Plan: ASSESSMENT: Acute respiratory failure S/p PEA arrest HCAP, aspiration pneumonia/Klebsiella ESBL positive sputum/MRSA and fluid overload. Severe new sepsis, with fungemia currently infected Acuna catheter Acute kidney injury. History CVA with left-sided hemiparesis. 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 Bilateral foot osteomyelitis methicillin-resistant Staphylococcus aureus. Hyperlipidemia Anemia of chronic inflammation Seizure disorder NOS Hypertension PLAN: Neuro: off sedation monitor neuro status on levetiracetam 500 mg t.i.d. for a history of seizures. CT brain 03/11: No acute findings. EEG: Mild slowing Lethargic and encephalopathy most likely secondary to new sepsis Pulm: Continue with ventilatory support and maintain sats> 92%. On PRVC RR 15, TV 550, IT:0.9, PEEP:5, FIO2: 35%. Vent day 13 Continues to fail CPAP trials. If not able to wean after right pleural effusion is drained, proceed with tracheostomy Bronchodilators with albuterol/ipratropium aerosols every 4 hours with albuterol aerosols every 2 hours as needed dyspnea, ICU vent bundle. Failed CPAP trials several days now due to low tidal volume and severe tachypnea s/p diagnostic US guided thoracentesis 40ml removed ( transudative fluid ) CT 03/16 performed with moderate right pleural effusion. Bronch with BAL 03/06 showed secretions L>R suctioned to clear, BAL performed LLL. BAL: Kleb pneumonia ESBL, Proteus Mirabilis, MRSA. Recent sputum session with MD resistant Klebsiella CV: Monitor HR and BP and maintain MAP> 65 mmHg. Echo showed EF 60-65% : Monitor renal function, I's and O's , electrolytes replacement per protocol Renal function is improving with Cr: 1.2 today. Continue with Free water 200 every 6 monitor sodium level Furosemide 40 mg daily GI: On lansoprazole 30 mg daily. Nepro with goal rate 550ml/hr per nutrition's recommendations KUB 03/13: No obstructing bowel gas pattern. ID: Continue with abx (Avycaz, micafungin, Zyvox) ID is following. 03/15 blood culture growing yeast IR to remove Acuna today Sputum cx 03/13: MDR Klebsiella Urine cx: Nan Albicans 03/13 03/05 Sputum cx: ESBL Klebsiella BAL cx 03/06: Kleb pneumonia ESBL, Proteus Mirabilis, MRSA Wound culture growing MRSA from osteomyelitis site. Heme: Monitor CBC and coags. s/p transfusion 2u PRBC 03/05 heme occult negative Endo: SSI with Accu-Cheks for glycemic control. GI prophylaxis- On Prevacid DVT prophylaxis- SCD, heparin SQ held for anemia requiring blood transfusion. IV access: RUE single lumen PICC line repositioned by IR 03/05 Patient is more critical now with severe sepsis worsening fever encephalopathy and fungemia. Micafungin was started yesterday. Source controlled with Acuna removal. Left subclavian central line placed for access CCT 35 Min excluding procedures
[2018-03-18] MEDS ORDERED: Morphine Inj 4 MG/ML Vial ONE (09:28)
--- NOTE | 2018-03-18 09:42 | XR ---
EXAM DATE: 03/18/2018 9:34 AM EDT AGE/SEX: 47 years / Male INDICATIONS: Central line placement. CLINICAL DATA: This is the patient's subsequent encounter. Patient reports that signs and symptoms h ave been present for 4 - 6 days and indicates a pain score of Nonresponsive. MEDICAL/SURGICAL HISTORY: . Cerebrovascular disease. Hypertension. Diabetes. cardiovascular dis ease, anemia CABG. COMPARISON: C, CHEST 1V SINGLE AP, 03/15/2018. . FINDINGS: Generalized opacity remains evident throughout both lungs. The heart is moderately enlarged. Right internal jugular line has been pulled back. A new left subclavian central venous catheter has b een inserted and appears to be in appropriate position. There is no evidence of pneumothorax. CONCLUSION: New left subclavian central venous catheter which appears to be in appropriate position. No evidence of pneumothorax. Continued diffuse opacity throughout both lungs characteristic of airspace disease and underlying eff usions. Cardiomegaly Endotracheal tube remains in good position. Electronically signed by: Balbir Garcia MD 03/18/2018 9:41 AM EDT
--- NOTE | 2018-03-18 09:51 | P.PCN ---
Date of procedure: 03/18/18 Pre-op diagnosis: Sepsis need for central access Post-op diagnosis: same Procedure: Left subclavian central line placement Central line checklist completed, timeout completed. I wore a surgical cap, mask with protective eyewear, full gown and sterile gloves throughout the procedure. Left subclavian region was prepped using chlorhexidine scrub and draped in sterile fashion. Anesthesia was achieved over the vein using 1% lidocaine. The introducer needle was inserted into the left subclavian vein and venous blood was withdrawn. The syringe was removed and a guidewire was advanced into the introducer needle. A small incision was made at the skin surface with a scalpel and the introducer needle was exchanged for a dilator over the guidewire. After appropriate dilation was obtained, the dilator was exchanged over the wire for a triple lumen, 7F, 20 CM antibiotic coated central venous catheter. The wire was removed and the catheter was sutured in place at 18 cm. A sterile central line dressing was placed over the catheter at the insertion site. The patient tolerated the procedure without any hemodynamic compromise. At time of procedure completion, all ports aspirated and flushed properly. Post-procedure chest x-ray is pending at this time. Anesthesia: local Surgeon: Aj Miller Estimated blood loss (mL): 2 Pathology: none sent Condition: critical Disposition: ICU
--- NOTE | 2018-03-18 09:56 | P.PCN ---
Date of procedure: 03/18/18 Pre-op diagnosis: Moderate to large right pleural effusion, HCAP Post-op diagnosis: same Procedure: Percutaneous Pigtail Tube Thoracostomy Procedure Note, ultrasound-guided Left 10 German pigtail chest tube Diagnosis: Right moderate pleural effusion Indications: Pleural effusion with persistence of respiratory failure Consent: Obtained Anesthesia: 1% lidocaine locally Description of the Procedure: The patient was placed in left lateral decubitus position. The left lateral chest was prepped and draped sterilely to include the axilla and nipple. 1% Lidocaine was infiltrated subcutaneously and into the tissues down to the periosteum of the rib. The 5th intercostal space was identified. A small incision was made using a #11 blade at the site marked with ultrasound. 18-gauge introducer was introduced into the pleural space and blood-tinged pleural fluid was aspirated. Following this syringe was removed and a guidewire was placed and the needle was removed. After dilation, a 10 Fr pigtail catheter was inserted superior to the adjacent rib and the pigtail catheter was advanced using Seldinger Technique, easily and without resistance. The catheter was connected to a Pleur-o-vac and connected to - 20cm H2O suction. The catheter was sutured to the skin using a 3-0 silk suture and an occlusive dressing was applied. There were no immediate complications noted. There was minimal EBL. The patient tolerated the procedure well. Approximately 700 mL's of blood tinged pleural fluid. A Chest x-ray has been ordered. I personally performed the procedure. Anesthesia: local Surgeon: Aj Miller Estimated blood loss (mL): 2 Pathology: other Condition: critical Disposition: ICU (fluid studies sent)
[2018-03-18] MEDS: Senna/Docusate Sodium 8.6/50 MG Tablet G-TUBE SCH ×2 (10:48→21:02)
[2018-03-18] MEDS: levETIRAcetam 500 MG Tablet G-TUBE SCH ×3 (10:48→18:07)
[2018-03-18] MEDS: Ascorbic Acid 500 MG Tablet G-TUBE SCH ×2 (10:48→21:02)
[2018-03-18] MEDS: Hypromellose 0.3% Opth Gel 10 GM Bottle EACH EYE SCH ×2 (10:49→21:01)
--- NOTE | 2018-03-18 11:16 | P.PNNP ---
Subjective Interval history: Remain on ventilator. S/p central line placement and thoracostomy tube placement . Creatinine is stable at 1.2. <Amparo Arriaga - Last Filed: 03/18/18 11:12> Physical Exam Vital signs: Vital Signs 03/17/18 12:00 03/17/18 13:00 03/17/18 13:28 Temperature 100.1 F H Pulse Rate 97 H 104 H Respiratory Rate 15 Blood Pressure 120/72 129/73 Pulse Oximetry 97 97 97 03/17/18 14:00 03/17/18 15:00 03/17/18 16:00 Temperature 99.9 F H Pulse Rate 104 H 104 H 101 H Respiratory Rate Blood Pressure 121/67 122/69 127/76 Pulse Oximetry 96 97 95 03/17/18 16:06 03/17/18 17:00 03/17/18 18:00 Temperature 100.9 F H Pulse Rate 102 H 101 H Respiratory Rate 15 Blood Pressure 136/80 140/78 Pulse Oximetry 96 99 99 03/17/18 19:00 03/17/18 20:00 03/17/18 20:40 Temperature 99.8 F H Pulse Rate 102 H 100 H 97 H Respiratory Rate 15 Blood Pressure 149/93 H 137/76 Pulse Oximetry 99 100 100 03/17/18 21:00 03/17/18 22:00 03/17/18 23:00 Temperature Pulse Rate 97 H 101 H 104 H Respiratory Rate Blood Pressure 152/84 H 153/86 H 143/76 H Pulse Oximetry 100 100 100 03/18/18 00:00 03/18/18 00:20 03/18/18 00:22 Temperature 99.4 F Pulse Rate 105 H 102 H Respiratory Rate 15 15 Blood Pressure Pulse Oximetry 100 100 03/18/18 00:38 03/18/18 01:00 03/18/18 02:00 Temperature Pulse Rate 101 H 102 H 94 H Respiratory Rate Blood Pressure 138/80 141/82 H 135/77 Pulse Oximetry 100 100 84 L 03/18/18 03:00 03/18/18 04:00 03/18/18 04:53 Temperature 100.4 F H Pulse Rate 93 H 92 H Respiratory Rate 15 Blood Pressure 141/82 H 143/80 H Pulse Oximetry 83 L 98 100 03/18/18 04:54 03/18/18 05:00 03/18/18 06:00 Temperature Pulse Rate 91 H 90 89 Respiratory Rate 15 Blood Pressure 159/85 H 171/90 H Pulse Oximetry 83 L 100 03/18/18 07:00 03/18/18 08:00 03/18/18 08:25 Temperature 98.7 F Pulse Rate 90 89 86 Respiratory Rate 15 Blood Pressure 163/87 H 148/83 H Pulse Oximetry 77 L 95 93 L 03/18/18 09:00 03/18/18 09:01 03/18/18 10:00 Temperature Pulse Rate 91 H 92 H 86 Respiratory Rate Blood Pressure 169/118 H 158/83 H Pulse Oximetry 97 92 L 100 Intake & Output 03/17/18 03/18/18 03/18/18 18:59 06:59 18:59 Intake Total 1651 / 1651 1493 / 1493 Output Total 700 / 700 1700 / 1700 Balance 951 / 951 -207 / -207 Weight 88.3 kg Intake: IV 800 / 800 550 / 550 Avycaz Inj 2.5 GM In NS Inj 50 100 / 100 50 / 50 ML @ 25 mls/hr IV.SIG Q8H KRISTIE Rx#:[id number] Zyvox 600 mg Premix 300 ML @ 300 / 300 300 / 300 300 mls/hr IV.SIG Q12H KRISTIE Rx#: [id number] Magnesium Sulfate 1 gm/D5W 100 100 / 100 100 / 100 ml Premix 100 ML @ 100 mls/hr IV.SIG Q1H KRISTIE Rx#:[id number] Mycamine Inj 150 MG In NS Inj 100 / 100 100 ML @ 100 mls/hr IV.SIG Q24H KRISTIE Rx#:[id number] KCl 20 mEq Premix Inj 20 meq In 100 / 100 100 ml @ 50 mls/hr IV.SIG Q2H PRN Rx#:[id number] KCl 40 mEq Premix Inj 40 meq In 200 / 200 100 ml @ 25 mls/hr IV.SIG Q2H PRN Rx#:[id number] Tube Feeding 251 / 251 343 / 343 Tube Irrigant 600 / 600 Water Bolus Amount 600 / 600 Output: Urine 650 / 650 900 / 900 Stool 50 / 50 800 / 800 Other: Date of Last Bowel Movement 03/17/18 03/17/18 03/18/18 Narrative: GENERAL: Intubated SKIN: Warm and dry. HEAD: Normocephalic. EYES: No scleral icterus. No injection or drainage. NECK: Supple, trachea midline. No JVD or lymphadenopathy. CARDIOVASCULAR: Regular rate and rhythm without murmurs, gallops, or rubs. RESPIRATORY: Breath sounds equal bilaterally. No accessory muscle use. Thoracostomy tube. GASTROINTESTINAL: Abdomen soft, non-tender, nondistended. + PEG tube MUSCULOSKELETAL: No cyanosis, or edema. - Urinary Catheter Management Indwelling Urethral Catheter Cath placed during this visit: yes Reason for continuing: Acute urinary retention Insertion date: 03/05/18 Insertion time: 08:00 <Amparo Arriaga - Last Filed: 03/18/18 11:12> Vital signs: Vital Signs 03/27/18 10:42 03/27/18 12:00 03/27/18 16:00 Temperature 98.4 F 98.7 F Pulse Rate 107 H 105 H Respiratory Rate 18 18 Blood Pressure 142/110 H 131/83 Pulse Oximetry 97 99 96 03/27/18 16:48 03/27/18 20:00 03/28/18 00:00 Temperature 98.7 F 97.6 F Pulse Rate 106 H 112 H 106 H Respiratory Rate 16 18 20 Blood Pressure 153/89 H 138/81 Pulse Oximetry 100 99 03/28/18 00:40 03/28/18 04:00 03/28/18 08:52 Temperature 99.6 F Pulse Rate 88 106 H 98 H Respiratory Rate 22 20 18 Blood Pressure 121/78 Pulse Oximetry 93 L 100 99 Intake & Output 03/27/18 03/28/18 03/28/18 18:59 06:59 18:59 Intake Total 810 / 810 110 / 110 Output Total 1200 / 1200 1000 / 1000 Balance -390 / -390 -890 / -890 Intake: IV 810 / 810 110 / 110 Avycaz Inj 2.5 GM In NS Inj 50 110 / 110 110 / 110 ML @ 25 mls/hr IV.SIG Q8H KRISTIE Rx#:[id number] Diflucan 400 mg Premix Bag 200 200 / 200 ML @ 100 mls/hr IV.SIG Q24H KRISTIE Rx#:[id number] Levaquin 750 mg Premix Inj 150 150 / 150 ML @ 100 mls/hr IV.SIG Q24H KRISTIE Rx#:[id number] Mycamine Inj 150 MG In NS Inj 100 / 100 100 ML @ 100 mls/hr IV.SIG Q24H KRISTIE Rx#:[id number] Vancomycin Inj 1,000 MG In NS 250 / 250 Inj 250 ML @ 250 mls/hr IV.SIG Q24H KRISTIE Rx#:[id number] Oral 0 / 0 Output: Urine 1200 / 1200 1000 / 1000 Other: Date of Last Bowel Movement 03/27/18 # Bowel Movements 0 - Urinary Catheter Management Indwelling Urethral Catheter Cath placed during this visit: no <Jose Olivo - Last Filed: 03/28/18 09:42> Assessment and Plan - Assessment (1) Acute kidney injury Code(s): N17.9 - Acute kidney failure, unspecified Status: Acute Plan: Acute kidney injury with a creatinine of 2.76 on day of consult with worsening since the . Acute kidney injury possible related to vancomycin toxicity last dose on the Baseline Creatinine noted to be 1.07 on 02/26. CT of pelvis on admission with kidney of normal in size and shape and no evidence of mass or hydronephrosis. Creatinine is now at baseline Plan Avoid nephrotoxins including IV contrast, NSAIDS,and aminoglycosides. Maintain strict I+o, maintain indwelling Dudley catheter Continue to monitor urinary output and BMP periodically Creatinine is at baseline, nephrology will sign off and see PRN only. (2) Anemia of chronic disorder Code(s): D63.8 - Anemia in other chronic diseases classified elsewhere Status : Acute Plan: HGB stable Monitoring (3) Hypernatremia Code(s): E87.0 - Hyperosmolality and hypernatremia Status: Acute Plan: Resolved <Amparo Arriaga - Last Filed: 03/18/18 11:12> - Assessment (1) Acute kidney injury Code(s): N17.9 - Acute kidney failure, unspecified Status: Acute Plan: Patient seen and examined, agree with above. Creatinine is better, will sign off and see PRN. (2) Anemia of chronic disorder Code(s): D63.8 - Anemia in other chronic diseases classified elsewhere Status : Resolved (3) Hypernatremia Code(s): E87.0 - Hyperosmolality and hypernatremia Status: Acute <Jose Olivo - Last Filed: 03/28/18 09:42>
--- NOTE | 2018-03-18 11:22 | XR ---
EXAM DATE: 03/18/2018 11:07 AM EDT AGE/SEX: 47 years / Male INDICATIONS: Chest tube placement. CLINICAL DATA: This is the patient's subsequent encounter. Patient reports that signs and symptoms h ave been present for 4 - 6 days and indicates a pain score of Nonresponsive. MEDICAL/SURGICAL HISTORY: . Cerebrovascular disease. Hypertension. Diabetes. Cardiovascular dis ease, anemia. CABG. COMPARISON: [facility] [place] CHEST 1V SINGLE AP, 03/18/2018. . FINDINGS: A small caliber right basilar chest tube has been inserted. There is significant decrease in right ba silar opacity following pleural fluid evacuation. Vascular congestion and interstitial prominence remains evident in both lungs. Heart and mediastinal structures are stable. Support devices are otherwise in stable position. CONCLUSION: Decreased right pleural effusion without evidence of pneumothorax following chest tube placement. Otherwise stable chest. Electronically signed by: Balbir Garcia MD 03/18/2018 11:20 AM EDT
[2018-03-18 12:29] LABS: Total Protein,Pleural Fluid 3.3 gm/dL
[2018-03-18 12:42] LABS: Lymphocytes,Pleural Fluid 32 %; Mesothelial,Pleural Fluid 38 %; Monocytes,Pleural Fluid 4 %; Neutrophils,Pleural Fluid 13 %
[2018-03-18 12:43] LABS: RBC,Pleural Fluid 207108 /mm3 (0-0)
--- NOTE | 2018-03-18 13:31 | ECHRPT ---
Indication: sepsis CONCLUSIONS The left ventricular systolic function is normal with an estimated ejection fraction in the range of 55-60%. Moderate thickening of the mitral valve leaflets. Mild mitral valve regurgitation. Moderate mitral valve stenosis (mean grad 11 at a heart rate of 88 bpm) Trace aortic valve regurgitation. There is trace tricuspid valve regurgitation. BP: / HR: Rhythm: Sinus MEASUREMENTS (Male / Female) Normal Values Technical Quality:Good 2D ECHO LV Diastolic Diameter PLAX 5.1 cm 4.2 - 5.9 / 3.9 - 5.3 cm LV Systolic Diameter PLAX 3.8 cm IVS Diastolic Thickness 1.0 cm 0.6 - 1.0 / 0.6 - 0.9 cm LVPW Diastolic Thickness 1.0 cm 0.6 - 1.0 / 0.6 - 0.9 cm LV Relative Wall Thickness 0.4 RV Internal Dim ED PLAX 2.9 cm LVOT Diameter 2.0 cm LA Systolic Diameter LX 3.0 cm 3.0 - 4.0 / 2.7 - 3.8 cm LV Ejection Fraction MOD 4C 56.0 % LV Ejection Fraction 4C AL 57.2 % M-MODE Aortic Root Diameter MM 2.0 cm LA Systolic Diameter MM 2.5 cm LA Ao Ratio MM 1.3 AV Cusp Separation MM 1.9 cm DOPPLER AV Peak Velocity 147.0 cm/s AV Peak Gradient 8.6 mmHg AI Peak Velocity 162.0 cm/s AI Peak Gradient 10.5 mmHg AI Pressure Half Time 621.0 ms LVOT Peak Velocity 106.0 cm/s LVOT Peak Gradient 4.5 mmHg AV Area Cont Eq pk 2.3 cm MV Peak Velocity 238.0 cm/s MV Peak Gradient 22.7 mmHg MV Mean Velocity 155.0 cm/s MV Mean Gradient 11.0 mmHg MV Area PHT 3.2 cm Mitral E Point Velocity 174.0 cm/s Mitral A Point Velocity 150.0 cm/s Mitral E to A Ratio 1.2 LV E' Lateral Velocity 5.4 cm/s Mitral E to LV E' Lateral Ratio 32.5 LV E' Septal Velocity 7.5 cm/s Mitral E to LV E' Septal Ratio 23.2 TR Peak Velocity 156.0 cm/s TR Peak Gradient 9.7 mmHg Right Atrial Pressure 10.0 mmHg Pulmonary Artery Systolic Pressu 19.7 mmHg Right Ventricular Systolic Press 19.7 mmHg PV Peak Velocity 130.0 cm/s PV Peak Gradient 6.8 mmHg FINDINGS LEFT VENTRICLE The left ventricular systolic function is normal with an estimated ejection fraction in the range of 55-60%. Normal left ventricular size. Wall thickness is normal. No regional wall motion abnormalities are present. RIGHT VENTRICLE Grossly normal, possible mild decrease in overall function of the right ventricle. LEFT ATRIUM The left atrial size is upper limits of normal. RIGHT ATRIUM The right atrial size is normal. ATRIAL SEPTUM Normal atrial septal thickness AORTA The aortic root and proximal ascending aorta are normal in size on limited imaging. MITRAL VALVE Moderate thickening of the mitral valve leaflets. Calcification of both mitral valve leaflets. Mild mitral valve regurgitation. Moderate mitral valve stenosis (mean grad 11 at a heart rate of 88 bpm) AORTIC VALVE Trileaflet aortic valve. Aortic valve sclerosis is present. Trace aortic valve regurgitation. No aortic valve stenosis. TRICUSPID VALVE Mild thickening of the tricuspid valve leaflets. There is trace tricuspid valve regurgitation. The estimated pulmonary arterial pressure is 19.7 mmHg. PULMONARY VALVE No pulmonary valve regurgitation or stenosis. VESSELS The inferior vena cava is normal in size. PERICARDIUM No pericardial effusion. Abdirahman Kenyon DO (Electronically Signed) Final Date:18 March 2018 13:30
[2018-03-18] MEDS: Micafungin Inj 150 MG in Sodium Chlor 0.9% Inj 100 ML IV.SIG SCH (13:32)
--- NOTE | 2018-03-18 14:37 | IR ---
EXAM DATE: 03/18/2018 12:29 PM EDT AGE/SEX: 47 years / Male INDICATIONS: Patient with history of osteomyelitis in need of Acuna catheter removal due to infect ion. CLINICAL DATA: This is the patient's subsequent encounter. Patient reports that signs and symptoms h ave been present for 2 weeks and indicates a pain score of Nonresponsive. MEDICAL/SURGICAL HISTORY: Diabetes. Hypertension. Anemia. Chronic pain, CVA, CHF, Dysphagia, HLD Acuna catheter, PEG tube COMPARISON: No prior exams available for comparison. FLUORO TIME (min): 0.0 IMAGE SERIES: 0 ACCESS SITE: PROCEDURE: 1. PermaCath removal. The risks, benefits and alternatives to the procedure were explained and verbal and written consent w as obtained. The site was prepped in sterile fashion. Full sterile technique was used, including ca p, mask, sterile gloves and gown and a large sterile sheet. Hand hygiene and 2% chlorhexidine and/or betadine/alcohol prep was utilized per protocol for cutaneous antisepsis. The skin and subcutaneous tissues were infiltrated with local anesthetic solution. The tract was anesthetized with 1% Lidocaine using. The Permcath was dissected from the subcutaneous tissues and easily removed in one piece. Manual pressure was applied to the venotomy site until hem ostasis was obtained. Sterile dressing was applied. The patient tolerated the procedure well and there were no complications. CONCLUSION: 1. Uncomplicated Permcath removal. Electronically signed by: Wilton Emery MD 03/18/2018 2:36 PM EDT
--- NOTE | 2018-03-18 16:54 | P.DIET ---
Nutritional Evaluation Type of nutrition evaluation: follow-up Nutrition consult regarding: Tube Feeding Nutrition screening: [facility] (pt has PEG) Subjective Subjective Comments: Pt resides at [facility]. Has PEG for nutrition. Non-verbal. Objective - Diagnosis Anemia, Rectal Bleeding - Objective % IBW: 114 (IBW = 172#) Body Weight Used for Calculations: Actual (89.5 kg) Energy Needs - Lower Range (kCal/kg): 25 Energy Needs - Upper Range (kCal/kg): 30 Lower Limit kCal/kg (kCals): 2,238 Upper Limit kCal/kg (kCals): 2,685 Lower Limit Protein Factor (Grams per Kg): 1.0 Upper Limit Protein Factor (Grams per Kg): 1.5 Lower Protein Needs (Protein): 90 Upper Protein Needs (Protein): 134 Fluid Factor (ml/kg): 30 Estimated Fluid Needs (ml): 2,685 Dietitian Reviewed in Medical Record: Curent medications, Intake & Output, Labs , Medical history, Tube feeding, Wound/DTI Diet Order: TF'ing Wound Care Note: L and R foot pressure injury per Nurse's Wound Assessment dated 03/18 Objective Comments: PMH Includes: DM, HTN, chronic anemia, chronic pain, 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 Pt is currently receiving Nepro @ 50 mls/hr. Pt does not need Nepro, recommend change to Glucerna 1.5 with a goal rate of 65 mls/hr to provide 2340 kcals, 129 gms protein and 1184 mls of free water. Labs, wts and clinical course reviewed. Recommendations: Glucerna 1.5 @ 65 mls/hr goal Dietitian to Monitor: Lab values, Renal labs, Glucose level, Intake & Output, Tube feeding tolerance, Weight change, Wound/skin status, Medical course
--- NOTE | 2018-03-18 17:16 | P.PNID ---
Subjective Remarks: off pressors, on vent FiO2 45% Febrile up to 100.3 secretions heavy failed CPAP For trach tomorrow Growing C glabrata 2/2 sets cont to haver heavy diarrhea + central line Permmacath removed sp repeat thoracocenthesis Sputum with carbapenem R and ESBL+ Kleb growing ESBL, MRSA and Protes S to Ertapenem from BAL pleural fluid negative @ 72 hrs Nan in the urine C Antibiotics: avycaz zyvox micafungin fluconazol Lines: HIchmann R chest placen on 03/05 Allergies/Adverse Reactions: Allergies No Known Allergies Allergy (Unknown, Uncoded 01/06/18 21:04) Objective Vital Signs 03/17/18 18:00 03/17/18 19:00 03/17/18 20:00 Temperature 100.9 F H 99.8 F H Pulse Rate 101 H 102 H 100 H Respiratory Rate Blood Pressure 140/78 149/93 H 137/76 Pulse Oximetry 99 99 100 03/17/18 20:40 03/17/18 21:00 03/17/18 22:00 Temperature Pulse Rate 97 H 97 H 101 H Respiratory Rate 15 Blood Pressure 152/84 H 153/86 H Pulse Oximetry 100 100 100 03/17/18 23:00 03/18/18 00:00 03/18/18 00:20 Temperature 99.4 F Pulse Rate 104 H 105 H Respiratory Rate 15 Blood Pressure 143/76 H Pulse Oximetry 100 100 100 03/18/18 00:22 03/18/18 00:38 03/18/18 01:00 Temperature Pulse Rate 102 H 101 H 102 H Respiratory Rate 15 Blood Pressure 138/80 141/82 H Pulse Oximetry 100 100 03/18/18 02:00 03/18/18 03:00 03/18/18 04:00 Temperature 100.4 F H Pulse Rate 94 H 93 H 92 H Respiratory Rate Blood Pressure 135/77 141/82 H 143/80 H Pulse Oximetry 84 L 83 L 98 03/18/18 04:53 03/18/18 04:54 03/18/18 05:00 Temperature Pulse Rate 91 H 90 Respiratory Rate 15 15 Blood Pressure 159/85 H Pulse Oximetry 100 83 L 03/18/18 06:00 03/18/18 07:00 03/18/18 08:00 Temperature 98.7 F Pulse Rate 89 90 89 Respiratory Rate Blood Pressure 171/90 H 163/87 H 148/83 H Pulse Oximetry 100 77 L 95 03/18/18 08:25 03/18/18 09:00 03/18/18 09:01 Temperature Pulse Rate 86 91 H 92 H Respiratory Rate 15 Blood Pressure 169/118 H Pulse Oximetry 93 L 97 92 L 03/18/18 10:00 03/18/18 11:00 03/18/18 11:20 Temperature Pulse Rate 86 91 H 91 H Respiratory Rate 18 Blood Pressure 158/83 H 153/90 H Pulse Oximetry 100 100 03/18/18 11:24 03/18/18 11:38 03/18/18 12:00 Temperature 98.6 F Pulse Rate 86 88 Respiratory Rate 15 10 L 22 Blood Pressure 172/97 H 175/95 H Pulse Oximetry 100 100 100 03/18/18 12:13 03/18/18 12:19 03/18/18 13:00 Temperature Pulse Rate 93 H 89 Respiratory Rate Blood Pressure 158/92 H 159/92 H Pulse Oximetry 99 98 100 03/18/18 14:00 03/18/18 15:00 03/18/18 16:00 Temperature 100.3 F H Pulse Rate 97 H 92 H 96 H Respiratory Rate Blood Pressure 171/98 H 152/89 H 133/81 Pulse Oximetry 100 100 100 03/18/18 16:46 03/18/18 16:47 Temperature Pulse Rate 94 H Respiratory Rate 15 15 Blood Pressure Pulse Oximetry 100 Intake & Output 03/17/18 03/18/18 03/18/18 18:59 06:59 18:59 Intake Total 1651 / 1651 1543 / 1543 300 / 300 Output Total 700 / 700 1700 / 1700 3415 / 3415 Balance 951 / 951 -157 / -157 -3115 / -3115 Weight 88.3 kg Intake: IV 800 / 800 600 / 600 300 / 300 Avycaz Inj 2.5 GM In NS Inj 50 100 / 100 100 / 100 ML @ 25 mls/hr IV.SIG Q8H KRISTIE Rx#:[id number] Zyvox 600 mg Premix 300 ML @ 300 / 300 300 / 300 300 / 300 300 mls/hr IV.SIG Q12H KRISTIE Rx#: [id number] Magnesium Sulfate 1 gm/D5W 100 100 / 100 100 / 100 ml Premix 100 ML @ 100 mls/hr IV.SIG Q1H KRISTIE Rx#:[id number] Mycamine Inj 150 MG In NS Inj 100 / 100 100 ML @ 100 mls/hr IV.SIG Q24H KRISTIE Rx#:[id number] KCl 20 mEq Premix Inj 20 meq In 100 / 100 100 ml @ 50 mls/hr IV.SIG Q2H PRN Rx#:[id number] KCl 40 mEq Premix Inj 40 meq In 200 / 200 100 ml @ 25 mls/hr IV.SIG Q2H PRN Rx#:[id number] Tube Feeding 251 / 251 343 / 343 Tube Irrigant 600 / 600 Water Bolus Amount 600 / 600 Output: Urine 650 / 650 900 / 900 Stool 50 / 50 800 / 800 Urine Amount (Catheter) 3415 / 3415 Indwelling Urethral Catheter 3415 / 3415 Other: Date of Last Bowel Movement 03/17/18 03/17/18 03/18/18 03/15/18 10:12 Blood - Peripheral Aerobic Blood Culture - Preliminary No growth in 3 days 03/15/18 10:12 Blood - Peripheral Anaerobic Blood Culture - Final Nan glabrata 03/18/18 09:55 Fluid - Pleural fluid Gram Stain - Pending 03/18/18 09:55 Fluid - Pleural fluid Body Fluid Culture - Pending 03/18/18 09:55 Fluid - Pleural fluid Fungal Smear - Pending 03/18/18 09:55 Fluid - Pleural fluid Fungal Culture - Pending 03/18/18 09:55 Fluid - Pleural fluid Acid Fast Bacilli Smear - Pending 03/18/18 09:55 Fluid - Pleural fluid Mycobacterial Culture - Pending 03/15/18 10:07 Blood - Peripheral Aerobic Blood Culture - Preliminary No growth in 3 days 03/15/18 10:07 Blood - Peripheral Anaerobic Blood Culture - Preliminary No growth in 3 days 03/13/18 11:10 Sputum - Endotracheal Gram Stain - Final 03/13/18 11:10 Sputum - Endotracheal Sputum Culture - Final Klebsiella pneumoniae Multidrug Resistant 03/18/18 06:15 Blood - Peripheral Aerobic Blood Culture - Pending 03/18/18 06:15 Blood - Peripheral Anaerobic Blood Culture - Pending 03/18/18 04:20 Blood - Peripheral Aerobic Blood Culture - Pending 03/18/18 04:20 Blood - Peripheral Anaerobic Blood Culture - Pending Lab - Hematology Results 03/18/18 04:20 WBC 7.3 RBC 2.52 L Hgb 7.5 L Hct 22.6 L MCV 89.5 MCH 29.9 MCHC 33.4 RDW 15.5 Plt Count 205 MPV 7.7 Neut % (Auto) 72.2 H Lymph % (Auto) 17.5 Overton % (Auto) 6.7 Eos % (Auto) 3.2 Baso % (Auto) 0.4 Neut # (Auto) 5.3 Lymph # (Auto) 1.3 Overton # (Auto) 0.5 Eos # (Auto) 0.2 Baso # (Auto) 0.0 WBC Differential . Differential Comment Auto diff final Lab - Chemistry Results 03/16/18 03/16/18 03/17/18 17:44 20:19 00:36 Sodium Potassium Chloride Carbon Dioxide Anion Gap BUN Creatinine Estimated GFR POC Glucose 118 H 117 H 134 H Random Glucose Calcium Phosphorus Magnesium Total Bilirubin AST ALT Alkaline Phosphatase Total Protein Albumin 03/17/18 03/17/18 03/17/18 05:15 05:37 16:55 Sodium 144 Potassium 3.0 L D Chloride 104 Carbon Dioxide 30.2 Anion Gap 10 BUN 15 Creatinine 1.21 Estimated GFR 78 L POC Glucose 130 H 165 H Random Glucose 103 Calcium 8.6 Phosphorus 4.1 Magnesium 1.5 Total Bilirubin 0.4 AST 37 ALT 36 Alkaline Phosphatase 138 H Total Protein 7.4 D Albumin 2.0 L 03/17/18 03/17/18 03/18/18 19:35 23:39 04:20 Sodium 143 Potassium 3.5 Chloride 105 Carbon Dioxide 28.5 Anion Gap 10 BUN 14 Creatinine 1.20 Estimated GFR 79 L POC Glucose 165 H 179 H Random Glucose 125 H Calcium 7.9 L Phosphorus 3.6 Magnesium 2.2 D Total Bilirubin 0.3 AST 34 ALT 32 Alkaline Phosphatase 136 H Total Protein 7.1 Albumin 1.9 L 03/18/18 03/18/18 03/18/18 08:36 12:44 16:08 Sodium Potassium Chloride Carbon Dioxide Anion Gap BUN Creatinine Estimated GFR POC Glucose 143 H 172 H 133 H Random Glucose Calcium Phosphorus Magnesium Total Bilirubin AST ALT Alkaline Phosphatase Total Protein Albumin Imaging: ITS Impressions Abdomen/Pelvis CT 02/17/18 00:00 CONCLUSION: 1. Small bilateral pleural effusions and bilateral lower lung opacity again seen. 2. Mild splenomegaly again seen. 3. Gastrostomy tube in place. 4. No evidence of bowel dilatation. 5. Heterotopic ossification about the left hip again seen. 6. Calcified adrenal glands again seen. 7. Enlarged inguinal lymph nodes again seen. Venous Doppler Study 02/18/18 00:00 CONCLUSION: 1. No DVT or SVT. 2. 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 This measures 3.6 x 2.2 x 2.2 cm and is predominantly thrombosed with a small, 6 x 9 mm patent component showing biphasic flow. Central Venous Line 02/22/18 00:00 CONCLUSION: 1. Uncomplicated tunneled central venous Power PICC line placement. 2. The PICC line can be used immediately. Foot MRI 02/22/18 00:00 CONCLUSION: 1. Findings most characteristic of early osteomyelitis at the medial aspect of the first metatarsal head and a tiny focus of probable osteomyelitis at the medial corner of the proximal phalanx great toe. Mild surrounding cellulitis. 2. Previous partial amputation fifth metatarsal. Extremity Arterial Study 02/26/18 00:00 CONCLUSION: 1. Normal ABIs bilaterally. Acuna Line Insertion 03/05/18 00:00 CONCLUSION: 1. Uncomplicated Acuna catheter placement as above. Head CT 03/11/18 08:30 CONCLUSION: 1. Stable sinus disease. 2. White matter disease and remote infarcts. . Abdomen X-Ray 03/13/18 12:21 CONCLUSION: Bilateral adrenal calcifications. Chest CT 03/16/18 12:58 CONCLUSION: 1. Persistent bilateral pleural effusions and areas of airspace consolidation and groundglass opacity. This process is overall significantly improved as compared to the exam of March 05, 2018 and slightly improved/stable from the exam of March 15, 2018. Findings are consistent with multifocal pneumonia versus severe respiratory distress secondary to pulmonary edema. 2. There is persistent left supraclavicular adenopathy as well as adenopathy within the mediastinum. Correlate with prior known history of malignancy. Tube Removal 03/18/18 00:00 CONCLUSION: 1. Uncomplicated Permcath removal. Chest X-Ray 03/18/18 09:58 CONCLUSION: Decreased right pleural effusion without evidence of pneumothorax following chest tube placement. Otherwise stable chest. Physical Exam: GENERAL: NAD SKIN: Warm and dry. HEAD: Atraumatic. Normocephalic. EYES: Pupils equal and round. No scleral icterus. No injection or drainage. ENT: No nasal bleeding or discharge. Mucous membranes pink and moist. CARDIOVASCULAR: Regular rate and rhythm. RESPIRATORY: No accessory muscle use. Diffuse rhonchi to auscultation. Breath sounds equal bilaterally. GASTROINTESTINAL: Abdomen soft, non-tender, distended. Hepatic and splenic margins not palpable. PEG in place, large amount of liquid stool in dignicheild MUSCULOSKELETAL: Extremities without clubbing, cyanosis, or edema. No obvious deformities. B/l feet with dressings in place R foot small dry lesion over 5 th MT - ok L foot with stage 3 pressure ulcer with fibbrinous necrotic tissue NEUROLOGICAL: awake, alert, communicates L side hemiplegia, contracted PSYCHIATRIC: unable to assess LINES: HIckmann in place L chest, site looks OK Assessment and Plan - Plan B/L foot osteomyelitis MRSA, on vancomycin - trough level too high Anemia likely 2/2 vanco Mild CEDRIC, likely 2/2 vanco - pt has 2 adverse effects from vancomycin so far, I will recommend to avoid vancomycin Aspiration PNA - growing ESBL + ? carbapenem R kleb pneumo, S to avycaz, colistin R zerbaxa previously MRSA and Proteus acute VDRF Diarreha, C.diff negative CEDRIC : GFR 80 today -no eos in urine Funguria New issuew C. glabrata candidemia ? source HIckmann: removed cont AVYCAZ cont micufungin dc zyvox start vancomycin to complete tx for MRSA osteo L foot dc fluconazol repeat BC 2 D echo dilated funduscopic exam by ophthalmology when clears fugemia delia ARTEAGA
[2018-03-18] MEDS ORDERED: Vancomycin Consult Pharmacy OTHER PRN (17:20)
--- NOTE | 2018-03-18 18:27 | P.PNPL ---
Subjective Interval history: 47 YO male with RF, on vent On Vent, fi02 45% Off sedation Opens eyes No N,V Had Rt TC Did't tolerate CPAP Physical Exam Vital signs: Vital Signs 03/17/18 19:00 03/17/18 20:00 03/17/18 20:40 Temperature 99.8 F H Pulse Rate 102 H 100 H 97 H Respiratory Rate 15 Blood Pressure 149/93 H 137/76 Pulse Oximetry 99 100 100 03/17/18 21:00 03/17/18 22:00 03/17/18 23:00 Temperature Pulse Rate 97 H 101 H 104 H Respiratory Rate Blood Pressure 152/84 H 153/86 H 143/76 H Pulse Oximetry 100 100 100 03/18/18 00:00 03/18/18 00:20 03/18/18 00:22 Temperature 99.4 F Pulse Rate 105 H 102 H Respiratory Rate 15 15 Blood Pressure Pulse Oximetry 100 100 03/18/18 00:38 03/18/18 01:00 03/18/18 02:00 Temperature Pulse Rate 101 H 102 H 94 H Respiratory Rate Blood Pressure 138/80 141/82 H 135/77 Pulse Oximetry 100 100 84 L 03/18/18 03:00 03/18/18 04:00 03/18/18 04:53 Temperature 100.4 F H Pulse Rate 93 H 92 H Respiratory Rate 15 Blood Pressure 141/82 H 143/80 H Pulse Oximetry 83 L 98 100 03/18/18 04:54 03/18/18 05:00 03/18/18 06:00 Temperature Pulse Rate 91 H 90 89 Respiratory Rate 15 Blood Pressure 159/85 H 171/90 H Pulse Oximetry 83 L 100 03/18/18 07:00 03/18/18 08:00 03/18/18 08:25 Temperature 98.7 F Pulse Rate 90 89 86 Respiratory Rate 15 Blood Pressure 163/87 H 148/83 H Pulse Oximetry 77 L 95 93 L 03/18/18 09:00 03/18/18 09:01 03/18/18 10:00 Temperature Pulse Rate 91 H 92 H 86 Respiratory Rate Blood Pressure 169/118 H 158/83 H Pulse Oximetry 97 92 L 100 03/18/18 11:00 03/18/18 11:20 03/18/18 11:24 Temperature Pulse Rate 91 H 91 H Respiratory Rate 18 15 Blood Pressure 153/90 H Pulse Oximetry 100 100 03/18/18 11:38 03/18/18 12:00 03/18/18 12:13 Temperature 98.6 F Pulse Rate 86 88 93 H Respiratory Rate 10 L 22 Blood Pressure 172/97 H 175/95 H 158/92 H Pulse Oximetry 100 100 99 03/18/18 12:19 03/18/18 13:00 03/18/18 14:00 Temperature Pulse Rate 89 97 H Respiratory Rate Blood Pressure 159/92 H 171/98 H Pulse Oximetry 98 100 100 03/18/18 15:00 03/18/18 16:00 03/18/18 16:46 Temperature 100.3 F H Pulse Rate 92 H 96 H 94 H Respiratory Rate 15 Blood Pressure 152/89 H 133/81 Pulse Oximetry 100 100 03/18/18 16:47 Temperature Pulse Rate Respiratory Rate 15 Blood Pressure Pulse Oximetry 100 Intake & Output 03/17/18 03/18/18 03/18/18 18:59 06:59 18:59 Intake Total 1651 / 1651 1543 / 1543 642 / 642 Output Total 700 / 700 1700 / 1700 4715 / 4715 Balance 951 / 951 -157 / -157 -4073 / -4073 Weight 88.3 kg Intake: IV 800 / 800 600 / 600 300 / 300 Avycaz Inj 2.5 GM In NS Inj 50 100 / 100 100 / 100 ML @ 25 mls/hr IV.SIG Q8H KRISTIE Rx#:[id number] Zyvox 600 mg Premix 300 ML @ 300 / 300 300 / 300 300 / 300 300 mls/hr IV.SIG Q12H KRISTIE Rx#: [id number] Magnesium Sulfate 1 gm/D5W 100 100 / 100 100 / 100 ml Premix 100 ML @ 100 mls/hr IV.SIG Q1H KRISTIE Rx#:[id number] Mycamine Inj 150 MG In NS Inj 100 / 100 100 ML @ 100 mls/hr IV.SIG Q24H KRISTIE Rx#:[id number] KCl 20 mEq Premix Inj 20 meq In 100 / 100 100 ml @ 50 mls/hr IV.SIG Q2H PRN Rx#:[id number] KCl 40 mEq Premix Inj 40 meq In 200 / 200 100 ml @ 25 mls/hr IV.SIG Q2H PRN Rx#:[id number] Tube Feeding 251 / 251 343 / 343 342 / 342 Tube Irrigant 600 / 600 Water Bolus Amount 600 / 600 Output: Urine 650 / 650 900 / 900 Stool 50 / 50 800 / 800 Urine Amount (Catheter) 3715 / 3715 Indwelling Urethral Catheter 3715 / 3715 Gastric Drainage 300 / 300 Left Upper Quadrant Gastrostomy 300 / 300 Tube (PEG) Chest Tube Drainage 700 / 700 Right Pleural 700 / 700 Other: Date of Last Bowel Movement 03/17/18 03/17/18 03/18/18 GENERAL: WBWN, On Vent, awake, follows commands SKIN: Warm and dry. HEAD: Normocephalic. EYES: No scleral icterus. No injection or drainage. NECK: Supple, trachea midline. No JVD or lymphadenopathy. CARDIOVASCULAR: Regular rate and rhythm without murmurs, gallops, or rubs. RESPIRATORY: Breath sounds equal bilaterally. No accessory muscle use. GASTROINTESTINAL: Abdomen soft, non-tender, nondistended. MUSCULOSKELETAL: No cyanosis, or edema. BACK: Nontender without obvious deformity. No CVA tenderness. - Urinary Catheter Management Indwelling Urethral Catheter Cath placed during this visit: yes Reason for continuing: Acute urinary retention Insertion date: 03/05/18 Insertion time: 08:00 Assessment and Plan - Plan IMPRESSION: 1. Bilateral lung infiltrates. 2. Small pleural effusion. 3. Osteomyelitis of both feet. 4. Diabetes mellitus. 5. Cerebrovascular accident with left-sided contracture. 6. VDRF 7. S/P cardiopulm arrest. PLAN: Vent Support Cont Abx per ID Aerosol nebs monitor Pl eff Monitor renal functions. Tube feeding Plans for trach in AM
[2018-03-18] MEDS: Vancomycin Inj 1,250 MG in Sodium Chlor 0.9% Inj 250 ML IV.SIG SCH (21:02)
[2018-03-19] MEDS: Insulin NovoLIN Regular Correctional Sugar Inj SQ SCH ×6 (00:29→20:29)
[2018-03-19] MEDS: Ceftazidime/Avibactam Inj 2.5 GM in Sodium Chlor 0.9% Inj 50 ML IV.SIG SCH ×3 (03:24→20:32)
[2018-03-19] MEDS: Dextrose 5%/NaCl 0.225% Inj 1,000 ML IV.CONT SCH ×2 (03:26→17:46)
[2018-03-19 06:47] LABS: Hematocrit 22.5 % (39.0-51.0); Hemoglobin 7.6 gm/dL (13.0-17.0); Mean Corpuscular Volume 88.4 fL (80.0-100.0); Mean Platelet Volume 8.2 fL (7.0-11.0); Platelet Count 210 th/mm3 (150-450); Red Blood Count 2.55 mil/mm3 (4.50-5.90); Red Cell Distribution Width 15.3 % (11.6-17.2); White Blood Count 5.5 th/mm3 (4.0-11.0)
[2018-03-19 07:08] LABS: Alanine Aminotransferase 30 U/L (12-78); Anion Gap 9 meq/L (5-15); Aspartate Aminotransferase 32 U/L (15-37); Blood Urea Nitrogen 16 mg/dL (7-18); Calcium 8.1 mg/dL (8.5-10.1); Carbon Dioxide 29.6 meq/L (21.0-32.0); Chloride 104 meq/L (98-107); Glomerular Filtration Rate 76 mL/min (>89); Glucose,Random 85 mg/dL (74-106); Potassium 3.3 meq/L (3.5-5.1); Sodium 143 meq/L (136-145)
[2018-03-19 07:13] LABS: Alkaline Phosphatase 133 U/L (45-117); Total Protein 7.4 g/dL (6.4-8.2)
[2018-03-19] MEDS: levETIRAcetam 500 MG Tablet G-TUBE SCH ×3 (08:33→18:51)
[2018-03-19] MEDS: Ascorbic Acid 500 MG Tablet G-TUBE SCH ×2 (08:34→20:30)
[2018-03-19] MEDS: Hypromellose 0.3% Opth Gel 10 GM Bottle EACH EYE SCH ×2 (08:35→20:33)
[2018-03-19] MEDS: Senna/Docusate Sodium 8.6/50 MG Tablet G-TUBE SCH ×2 (08:38→20:30)
[2018-03-19] MEDS: Vancomycin Inj 1,250 MG in Sodium Chlor 0.9% Inj 250 ML IV.SIG SCH ×2 (09:00→20:32)
[2018-03-19] MEDS ORDERED: fentaNYL Citrate Inj 250 MCG/5 ML Ampul IV.PUSH ONE (10:38)
[2018-03-19] MEDS ORDERED: Midazolam Inj 5 MG/ML 1 ML Vial IV.PUSH ONE (10:38)
[2018-03-19] MEDS ORDERED: fentaNYL Citrate Inj 100 MCG/2 ML Ampul ONE (10:42)
[2018-03-19] MEDS ORDERED: Midazolam Inj 5 MG/ML 1 ML Vial ONE (10:42)
--- NOTE | 2018-03-19 10:44 | P.PNCC ---
Subjective Subjective Remarks/Hospital Course: The patient is a 47-year-old male with a past medical history of a CVA with left -sided hemiparesis, hypertension, diabetes mellitus, anemia of chronic disease, CHF, dysphagia, status post PEG tube placement, depression, nonverbal, who was admitted under the hospitalist service on 02/17/2018 for acute on chronic anemia. In addition, the patient has a history of bilateral foot osteomyelitis. During his hospital course, he had worsening renal function with a creatinine of 1.74 this morning from 1.1 on admission. In addition, the patient was found hypernatremic with a sodium level of 156 and hyperkalemic with a potassium level 5.3. A halicat was called 2 days ago for shortness of breath, and this morning the patient had a PEA arrest. ACLS protocol was initiated and the patient received epinephrine x3, 2 amps of bicarbonate, and 1 amp of calcium and was subsequently intubated by myself with an ET tube 8.0 cm size. A chest x-ray post intubation showed diffuse bilateral pulmonary infiltrates. He was on NS at 100 mL an hour for the past 2 days. Also, he had a venous Doppler ultrasound on 02/18/2018, which showed no evidence of a DVT; however, it showed a pseudoaneurysm at the distal brachial artery measuring 3.6 x 2.2 x 2.2 cm, predominantly thrombosed; however, there was a small patent component with biphasic flow measuring 6 x 9 mm. A single lumen right PICC line was placed by interventional radiology on 02/22/2018. The patient also had an arterial Doppler ultrasound which was within normal. He was seen by Dr. Jensen from vascular surgery. In addition, the patient has been followed by podiatry and infectious disease. ABG postcode showed acute hypercapnic respiratory acidosis with a pH of 7.11, CO2 of 83, PaO2 of 99, bicarbonate 25, saturation 92% on PRVC mode, rate of 16, tidal volume 500, PEEP of 5, 100% FiO2, and I time 0.9. 03/06 Patient is sedated with Versed and Fenantl drips Levophed started overnight on 4 mics. Afebrile. Renal function worse this morning with C: 1.93 from 1.75 s/p transfusion 2U PRBC yesterday . 03/07: Remains sedated, arousable, orally intubated on mechanical ventilation. Sputum growing ESBL Klebsiella. 03/08 Patient remains intubated and Sedated with Fentanyl drip. Had T: 101 last night.Had an episode of hypoglycemia last night given D50 and placed on D10. 03/09 Patient remains sedated and intubated. T: 100 at 4 am. 03/10 Patient is intubated, sedated T:99.9. renal function is improving with Cr: 2.08 from 2.47 03/11 Patient remains intubated and sedated with Fentanyl drip. Afebrile. 03/12 Patient is off sedation intubated does not follow commands, afebrile. CT brain yesterday no acute findings. 03/13 Patient remains off sedation doesn't follow commands, T:100.3 last night. Renal function is improving with Cr: 1.47 from 1.65 03/14 Remains intubated, afebrile. TF om hold for emesis. Afebrile. 03/15 Patient remains intubated T:100.0 last night. 03/16: Patient remains intubated, sedated appears to follow some commands on sedation hold. Continues to have low-grade fever. Failed CPAP trial today due to severe tachypnea and low tidal volume. Chest x-ray shows worsening bilateral infiltrates/effusion. Will check CT to evaluate for infiltrate versus effusion. Also will increase Lasix to 40 mg every 12. Subjective 03/17: Remains intubated. T-max 100F. Opens eyes on sedation vacation. Failed CPAP 3 days due to apnea/tachypnea and low tidal problems. 03/18: Remains intubated off sedation. Now with worsening sepsis fever 100.9 T- max, candidemia on cultures from 03/15/2018. Growing yeast. Most likely source Acuna catheter on the right side. I have placed a left subclavian central line. IR to remove the Acuna catheter GILDA discussed with Dr. Paul. Continues to fail CPAP trial most likely needs tracheostomy if he fails to be in after draining the right pleural effusion 03/19: Failed CPAP again today due to low tidal volumes and tachypnea. Right chest tube placed yesterday with some 60 mL hemorrhagic effusion. Cultures remain negative today. Fungal blood culture with Nan glabrata, Acuna catheter removed yesterday after the left subclavian line was placed Objective Vital Signs / I&O: Vital Signs 03/18/18 11:00 03/18/18 11:20 03/18/18 11:24 Temperature Pulse Rate 91 H 91 H Respiratory Rate 18 15 Blood Pressure 153/90 H Pulse Oximetry 100 100 03/18/18 11:38 03/18/18 12:00 03/18/18 12:13 Temperature 98.6 F Pulse Rate 86 88 93 H Respiratory Rate 10 L 22 Blood Pressure 172/97 H 175/95 H 158/92 H Pulse Oximetry 100 100 99 03/18/18 12:19 03/18/18 13:00 03/18/18 14:00 Temperature Pulse Rate 89 97 H Respiratory Rate Blood Pressure 159/92 H 171/98 H Pulse Oximetry 98 100 100 03/18/18 15:00 03/18/18 16:00 03/18/18 16:46 Temperature 100.3 F H Pulse Rate 92 H 96 H 94 H Respiratory Rate 15 Blood Pressure 152/89 H 133/81 Pulse Oximetry 100 100 03/18/18 16:47 03/18/18 17:00 03/18/18 18:00 Temperature Pulse Rate 92 H 90 Respiratory Rate 15 Blood Pressure 158/83 H 146/84 H Pulse Oximetry 100 100 100 03/18/18 19:00 03/18/18 20:00 03/18/18 20:46 Temperature 100.2 F H Pulse Rate 90 99 H 97 H Respiratory Rate 15 Blood Pressure 171/87 H 134/81 Pulse Oximetry 100 100 100 03/18/18 21:00 03/18/18 22:00 03/18/18 23:00 Temperature Pulse Rate 100 H 100 H 100 H Respiratory Rate Blood Pressure 135/81 139/82 127/79 Pulse Oximetry 100 88 L 100 03/18/18 23:48 03/19/18 00:00 03/19/18 01:00 Temperature 100.6 F H Pulse Rate 98 H 99 H 94 H Respiratory Rate 15 Blood Pressure 136/84 139/86 Pulse Oximetry 100 100 100 03/19/18 02:00 03/19/18 03:00 03/19/18 03:56 Temperature Pulse Rate 91 H 94 H 100 H Respiratory Rate 15 Blood Pressure 122/77 136/85 Pulse Oximetry 100 100 100 03/19/18 04:00 03/19/18 05:00 03/19/18 06:00 Temperature 101 F H Pulse Rate 97 H 98 H 88 Respiratory Rate Blood Pressure 152/93 H 142/87 H 125/76 Pulse Oximetry 100 98 99 03/19/18 07:00 03/19/18 07:51 03/19/18 08:00 Temperature 99.8 F H Pulse Rate 82 84 Respiratory Rate 15 Blood Pressure 146/81 H 145/87 H Pulse Oximetry 100 100 100 03/19/18 09:00 Temperature Pulse Rate 92 H Respiratory Rate Blood Pressure 136/80 Pulse Oximetry 100 Intake & Output 03/18/18 03/19/18 03/19/18 18:59 06:59 18:59 Intake Total 992 / 992 2192.5 / 2192.5 Output Total 4715 / 4715 1560 / 1560 Balance -3723 / -3723 632.5 / 632.5 Weight 80.3 kg Intake: IV 450 / 450 1662.5 / 1662.5 D5W/1/4 NS Inj 1,000 ML @ 50 1000 / 1000 mls/hr IV.CONT .Q20H KRISTIE Rx#: [id number] Avycaz Inj 2.5 GM In NS Inj 50 50 / 50 100 / 100 ML @ 25 mls/hr IV.SIG Q8H KRISTIE Rx#:[id number] Zyvox 600 mg Premix 300 ML @ 300 / 300 300 / 300 300 mls/hr IV.SIG Q12H KRISTIE Rx#: [id number] Mycamine Inj 150 MG In NS Inj 100 / 100 100 ML @ 100 mls/hr IV.SIG Q24H KRISTIE Rx#:[id number] Vancomycin Inj 1,250 MG In NS 262.5 / 262.5 Inj 250 ML @ 250 mls/hr IV.SIG Q12H KRISTIE Rx#:[id number] Tube Feeding 342 / 342 330 / 330 Tube Irrigant 200 / 200 Water Bolus Amount 200 / 200 Output: Stool 400 / 400 Urine Amount (Catheter) 3715 / 3715 1100 / 1100 Indwelling Urethral Catheter 3715 / 3715 1100 / 1100 Gastric Drainage 300 / 300 Left Upper Quadrant Gastrostomy 300 / 300 Tube (PEG) Chest Tube Drainage 700 / 700 60 / 60 Right Pleural 700 / 700 60 / 60 Other: Date of Last Bowel Movement 03/18/18 03/19/18 03/19/18 Result Diagrams: 03/19/18 04:20 03/19/18 04:20 Objective Remarks: GENERAL: Patient is 47 yo intubated follows some commands on right side. Critically ill septic SKIN: Warm and dry. HEAD: Normocephalic. EYES: No scleral icterus. No injection or drainage. NECK: Supple, trachea midline. No JVD or lymphadenopathy. CARDIOVASCULAR: Regular rate and rhythm without murmurs, gallops, or rubs. RESPIRATORY: Breath sounds equal bilaterally. Basilar crackles and diminished breath sounds. Right pigtail catheter in place with hemorrhagic effusion draining in the Pleur-evac GASTROINTESTINAL: Abdomen soft, non-tender, nondistended. + PEG tube MUSCULOSKELETAL: Trace bilateral lower edema. Neuro intubated, intermittently follows commands on right side, flaccid on the left side Assessment and Plan - Assessment and Plan Plan: ASSESSMENT: Acute respiratory failure S/p PEA arrest HCAP, aspiration pneumonia/Klebsiella ESBL positive sputum/MRSA and fluid overload. Severe new sepsis, with fungemia currently infected Acuna catheter Acute kidney injury. Large right pleural effusion status post pigtail catheter History CVA with left-sided hemiparesis. 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 Bilateral foot osteomyelitis methicillin-resistant Staphylococcus aureus. Hyperlipidemia Anemia of chronic inflammation Seizure disorder NOS Hypertension PLAN: Neuro: off sedation monitor neuro status on levetiracetam 500 mg t.i.d. for a history of seizures. CT brain 03/11: No acute findings. EEG: Mild slowing Lethargic and encephalopathy most likely secondary to new sepsis Pulm: Continue with ventilatory support and maintain sats> 92%. On PRVC RR 15, TV 550, IT:0.9, PEEP:5, FIO2: 35%. Vent day 14 Continues to fail CPAP trials. Tracheostomy today 03/19 Albuterol/ipratropium aerosols every 4 hours with albuterol aerosols every 2 hours as needed dyspnea, ICU vent bundle. Failed CPAP trials several days now due to low tidal volume and severe tachypnea s/p diagnostic US guided thoracentesis 40ml removed ( transudative fluid ) CT 03/16 performed with moderate right pleural effusion. Right pigtail chest tube placed 03/18/2018 with 760 mL drained Bronch with BAL 03/06 showed secretions L>R suctioned to clear, BAL performed LLL. BAL: Kleb pneumonia ESBL, Proteus Mirabilis, MRSA. Recent sputum session with MD resistant Klebsiella CV: Monitor HR and BP and maintain MAP> 65 mmHg. Echo showed EF 60-65% : Monitor renal function, I's and O's , electrolytes replacement per protocol Renal function is improving with Cr: 1.2 today. Continue with Free water 200 every 6 monitor sodium level Furosemide 40 mg daily GI: On lansoprazole 30 mg daily. Nepro with goal rate 550ml/hr per nutrition's recommendations-n.p.o. for tracheostomy KUB 03/13: No obstructing bowel gas pattern. ID: Continue with abx (Avycaz, micafungin, Zyvox) ID is following. 03/15 blood culture growing Nan glabrata IR removed Acuna 03/18/18 Sputum cx 03/13: MDR Klebsiella Urine cx: Nan Albicans 03/13 03/05 Sputum cx: ESBL Klebsiella BAL cx 03/06: Kleb pneumonia ESBL, Proteus Mirabilis, MRSA Wound culture growing MRSA from osteomyelitis site. Heme: Monitor CBC and coags. s/p transfusion 2u PRBC 03/05 heme occult negative Endo: SSI with Accu-Cheks for glycemic control. GI prophylaxis- On Prevacid DVT prophylaxis- SCD, heparin SQ held for anemia requiring blood transfusion. IV access: Left subclavian central line placed 03/18/2018. Acuna removed 2017 Patient is more critical now with severe sepsis worsening fever encephalopathy and fungemia. Micafungin was started yesterday. Source controlled with Acuna removal. Left subclavian central line placed for access Level 3
--- NOTE | 2018-03-19 12:15 | P.PCN ---
Procedure: Diagnosis: Respiratory failure, status post stroke Procedure: Therapeutic flexible bronchoscopy Narrative: Timeout performed and patient properly identified. Patient mechanically ventilated via orotracheal intubation. Usual ICU measures in place including monitoring. Through a sealed side-port in the ventilatory circuit the bronchoscope was delivered through the endotracheal tube. The main trachea and bifurcation bronchi were normal in appearance. There was scattered moderately thick secretions in the left bronchial tree which were suctioned free. All segments widely patent. The right side was clear. There was no irritation or inflammation in the tracheobronchial tree. Branching anatomy was normal. The bronchoscope and endotracheal tube were withdrawn to the level of the cricoid cartilage where scope visualization was used to facilitate the insertion of a percutaneous tracheostomy by another team. Immediately and following insertion of the new tracheostomy tube the bronchoscope was delivered through this tube to confirm presence of the tracheostomy in the mid trachea and well above the luz maria. The inner cannula was then placed and the patient ventilated through the new tracheostomy. Oxygen saturation was maintained at greater than 96% throughout the procedure.
--- NOTE | 2018-03-19 12:33 | P.PCN ---
Date of procedure: 03/19/18 Pre-op diagnosis: Acute resp failure, unable to vent wean Post-op diagnosis: same Procedure: Procedure: Percutaneous tracheostomy with bronchoscopic guidance Operators: Dr. Aj Miller for percutaneous tracheostomy, Dr. Meadows for bronchoscopy Informed consent obtained from family and documented on chart Anesthesia used: Midazolam 10 mg IV, fentanyl 200 IV, Rocuronium 100 mg IV. 1% lidocaine for local infiltration anesthesia Procedure: After ensuring adequate sedation/analgesia neuromuscular blockade, patient was positioned appropriately. After sterile prepping and draping, 1% lidocaine was used for local infiltration anesthesia. Dr. Meadows proceeded bronchoscopy and withdrawing ET tube. Introducer needle was inserted into the trachea under bronchoscopic guidance and guidewire was advanced into the trachea and was visualized passing down into the trachea following which needle was removed. Punch dilator was used to dilate the tracheal ring following which tracheostomy dilator assembly was mounted over the guidewire and advanced to dilate the trachea. The dilator was visualized via bronchoscopic guidance entering the trachea during dilation without injuring the posterior tracheal wall. Following this dilator assembly was removed and percutaneous tracheostomy mounted over dilator was advanced over the guidewire into the trachea under direct visualization following which guidewire/dilator were removed. Bronchoscope was inserted at this point by Dr. Meadows via newly inserted tracheostomy and appropriate placement was confirmed by visualizing tracheal rings. After this bronchoscope was withdrawn and inner cannula was placed via tracheostomy. After inflating cuff patient was connected to mechanical ventilation via tracheostomy. 4 interrupted sutures were used to secure tracheostomy to neck. Patient tolerated the procedure well with no immediate complications noted. Good hemostasis was achieved at the end of procedure. Postprocedure chest x-ray was ordered and was pending at the time of this dictation and will be reviewed when available. Anesthesia: nora FRAZIER Surgeon: Aj Miller Estimated blood loss (mL): 3 Pathology: none sent Condition: critical Disposition: ICU
--- NOTE | 2018-03-19 12:47 | XR ---
EXAM DATE: 03/19/2018 12:41 PM EDT AGE/SEX: 47 years / Male INDICATIONS: Post tracheostomy placement. CLINICAL DATA: This is the patient's initial encounter. Patient reports that signs and symptoms have been present for 1 day and indicates a pain score of Nonresponsive. MEDICAL/SURGICAL HISTORY: Hypertension. Stroke. CABG. COMPARISON: [facility] – [place], CHEST 1V SINGLE AP, 03/18/2018. . FINDINGS: Tracheostomy in good position without pneumothorax. Central line in superior vena cava. Sternal wires previous bypass noted, most superior wire fractured . Minimal parenchymal changes left base. Small right chest tube. CONCLUSION: Tracheostomy tube in good position. Electronically signed by: Candido Emery MD 03/19/2018 12:45 PM EDT
[2018-03-19] MEDS: Micafungin Inj 150 MG in Sodium Chlor 0.9% Inj 100 ML IV.SIG SCH (14:50)
--- NOTE | 2018-03-19 17:48 | P.PNONC ---
Subjective Interval history: Patient remains febrile, T-max 101F. Patient remains on ventilator, s/p trach. Objective Vital Signs/Intake & Output: Vital Signs 03/18/18 18:00 03/18/18 19:00 03/18/18 20:00 Temperature 100.2 F H Pulse Rate 90 90 99 H Respiratory Rate Blood Pressure 146/84 H 171/87 H 134/81 Pulse Oximetry 100 100 100 03/18/18 20:46 03/18/18 21:00 03/18/18 22:00 Temperature Pulse Rate 97 H 100 H 100 H Respiratory Rate 15 Blood Pressure 135/81 139/82 Pulse Oximetry 100 100 88 L 03/18/18 23:00 03/18/18 23:48 03/19/18 00:00 Temperature 100.6 F H Pulse Rate 100 H 98 H 99 H Respiratory Rate 15 Blood Pressure 127/79 136/84 Pulse Oximetry 100 100 100 03/19/18 01:00 03/19/18 02:00 03/19/18 03:00 Temperature Pulse Rate 94 H 91 H 94 H Respiratory Rate Blood Pressure 139/86 122/77 136/85 Pulse Oximetry 100 100 100 03/19/18 03:56 03/19/18 04:00 03/19/18 05:00 Temperature 101 F H Pulse Rate 100 H 97 H 98 H Respiratory Rate 15 Blood Pressure 152/93 H 142/87 H Pulse Oximetry 100 100 98 03/19/18 06:00 03/19/18 07:00 03/19/18 07:51 Temperature Pulse Rate 88 82 Respiratory Rate 15 Blood Pressure 125/76 146/81 H Pulse Oximetry 99 100 100 03/19/18 08:00 03/19/18 09:00 03/19/18 10:00 Temperature 99.8 F H Pulse Rate 84 92 H 92 H Respiratory Rate Blood Pressure 145/87 H 136/80 130/77 Pulse Oximetry 100 100 100 03/19/18 10:47 03/19/18 11:00 03/19/18 12:00 Temperature 100.6 F H 99.2 F Pulse Rate 116 H 92 H 91 H Respiratory Rate 20 Blood Pressure 133/72 159/99 H 157/88 H Pulse Oximetry 93 L 100 100 03/19/18 12:30 03/19/18 12:32 03/19/18 13:00 Temperature Pulse Rate 91 H 90 Respiratory Rate 20 20 Blood Pressure 123/79 Pulse Oximetry 100 100 03/19/18 14:00 03/19/18 15:00 03/19/18 16:00 Temperature 100.2 F H Pulse Rate 90 96 H 94 H Respiratory Rate Blood Pressure 149/84 H 140/83 147/87 H Pulse Oximetry 100 100 60 L 03/19/18 16:05 03/19/18 16:06 Temperature Pulse Rate 92 H Respiratory Rate 19 16 Blood Pressure Pulse Oximetry 99 Intake & Output 03/18/18 03/19/18 03/19/18 18:59 06:59 18:59 Intake Total 992 / 992 2192.5 / 2192.5 662.5 / 662.5 Output Total 4715 / 4715 1560 / 1560 2600 / 2600 Balance -3723 / -3723 632.5 / 632.5 -1937.5 / -1937.5 Weight 80.3 kg Intake: IV 450 / 450 1662.5 / 1662.5 662.5 / 662.5 D5W/1/4 NS Inj 1,000 ML @ 50 1000 / 1000 mls/hr IV.CONT .Q20H ARTHUR Rx#: [id number] Avycaz Inj 2.5 GM In NS Inj 50 50 / 50 100 / 100 ML @ 25 mls/hr IV.SIG Q8H ARTHUR Rx#:[id number] Zyvox 600 mg Premix 300 ML @ 300 / 300 300 / 300 300 / 300 300 mls/hr IV.SIG Q12H ARTHUR Rx#: [id number] Mycamine Inj 150 MG In NS Inj 100 / 100 100 ML @ 100 mls/hr IV.SIG Q24H ARTHUR Rx#:[id number] KCl 40 mEq Premix Inj 40 meq In 100 / 100 100 ml @ 25 mls/hr IV.SIG UNSCH PRN Rx#:[id number] Vancomycin Inj 1,250 MG In NS 262.5 / 262.5 262.5 / 262.5 Inj 250 ML @ 250 mls/hr IV.SIG Q12H ARTHUR Rx#:[id number] Tube Feeding 342 / 342 330 / 330 Tube Irrigant 200 / 200 Water Bolus Amount 200 / 200 Output: Stool 400 / 400 Urine Amount (Catheter) 3715 / 3715 1100 / 1100 2600 / 2600 Indwelling Urethral Catheter 3715 / 3715 1100 / 1100 2600 / 2600 Gastric Drainage 300 / 300 Left Upper Quadrant Gastrostomy 300 / 300 Tube (PEG) Chest Tube Drainage 700 / 700 60 / 60 Right Pleural 700 / 700 60 / 60 Other: Date of Last Bowel Movement 03/18/18 03/19/18 03/19/18 Result Diagrams: 03/20/18 04:40 03/20/18 09:00 Laboratory Results: Laboratory Results - last 24 hr 03/05/18 03/14/18 03/18/18 18:20 04:20 19:49 WBC RBC Hgb Hct MCV MCH MCHC RDW Plt Count MPV Sodium Potassium Chloride Carbon Dioxide Anion Gap BUN Creatinine Estimated GFR POC Glucose 169 H Random Glucose Calcium Total Bilirubin AST ALT Alkaline Phosphatase Total Protein Albumin CECILIA Interpretation MTS Gel Crossmatch See Detail 03/19/18 03/19/18 03/19/18 00:19 04:20 04:20 WBC 5.5 RBC 2.55 L Hgb 7.6 L Hct 22.5 L MCV 88.4 MCH 30.0 MCHC 34.0 RDW 15.3 Plt Count 210 MPV 8.2 Sodium 143 Potassium 3.3 L Chloride 104 Carbon Dioxide 29.6 Anion Gap 9 BUN 16 Creatinine 1.24 Estimated GFR 76 L POC Glucose 177 H Random Glucose 85 Calcium 8.1 L Total Bilirubin 0.4 AST 32 ALT 30 Alkaline Phosphatase 133 H Total Protein 7.4 Albumin 2.0 L CECILIA Interpretation MTS Gel Crossmatch 03/19/18 03/19/18 03/19/18 04:21 08:20 12:34 WBC RBC Hgb Hct MCV MCH MCHC RDW Plt Count MPV Sodium Potassium Chloride Carbon Dioxide Anion Gap BUN Creatinine Estimated GFR POC Glucose 96 113 H 167 H Random Glucose Calcium Total Bilirubin AST ALT Alkaline Phosphatase Total Protein Albumin CECILIA Interpretation MTS Gel Crossmatch 03/19/18 16:19 WBC RBC Hgb Hct MCV MCH MCHC RDW Plt Count MPV Sodium Potassium Chloride Carbon Dioxide Anion Gap BUN Creatinine Estimated GFR POC Glucose 112 H Random Glucose Calcium Total Bilirubin AST ALT Alkaline Phosphatase Total Protein Albumin CECILIA Interpretation MTS Gel Crossmatch Culture Results: Microbiology 03/18/18 09:55 Acid Fast Bacilli Smear - Final Fluid - Pleural fluid No acid fast bacilli seen 03/18/18 09:55 Gram Stain - Final Fluid - Pleural fluid Body Fluid Culture - Preliminary No growth in 24 hours 03/18/18 06:15 Aerobic Blood Culture - Preliminary Blood - Peripheral No growth in 1 day Anaerobic Blood Culture - Preliminary No growth in 1 day 03/18/18 04:20 Aerobic Blood Culture - Preliminary Blood - Peripheral No growth in 1 day Anaerobic Blood Culture - Preliminary No growth in 1 day 03/15/18 10:12 Aerobic Blood Culture - Preliminary Blood - Peripheral No growth in 4 days Anaerobic Blood Culture - Final Nan glabrata 03/15/18 10:07 Aerobic Blood Culture - Preliminary Blood - Peripheral No growth in 4 days Anaerobic Blood Culture - Preliminary No growth in 4 days 03/18/18 09:55 Fungal Smear - Final Fluid - Pleural fluid No fungal elements seen 03/13/18 11:10 Gram Stain - Final Sputum - Endotracheal Sputum Culture - Final Klebsiella pneumoniae Multidrug Resistant Imaging Studies: Impressions Chest X-Ray 03/19/18 00:00 CONCLUSION: Tracheostomy tube in good position. Medications: Active Medications Generic Name Dose Route Start Last Admin Trade Name Freq PRN Reason Stop Dose Admin Albuterol 1 ampul 03/17/18 12:00 03/19/18 16:04 Duoneb Neb (Arthur) NEB 1 ampul Q4HR NEB ARTHUR Administration Amlodipine Besylate 10 mg 02/20/18 09:00 03/05/18 09:12 Norvasc G-TUBE Not Given DAILY ARTHUR Artificial Tears 1 drops 03/17/18 21:00 03/19/18 08:35 Genteal Severe Dry Eye Relief 0.3% Opth Gel EACH EYE 1 drops BID ARTHUR Administration Ascorbic Acid 500 mg 02/19/18 08:13 03/19/18 08:34 Vitamin C G-TUBE 500 mg BID ARTHUR Administration Atorvastatin Calcium 10 mg 02/17/18 21:00 03/18/18 21:01 Lipitor G-TUBE 10 mg HS ARTHUR Administration Carvedilol 25 mg 02/17/18 13:00 03/05/18 09:11 Coreg G-TUBE Not Given BID ARTHUR Dextrose 50 ml 02/17/18 11:23 03/14/18 05:02 D50w Vial IV.PUSH 50 ml UNSCH PRN Administration PER HYPOGLYCEMIA PROTOCOL Enalaprilat 2.5 mg 02/17/18 11:25 02/21/18 01:34 Vasotec Inj IV.PUSH 2.5 mg Q6H PRN Administration SBP>160, DBP>90 Escitalopram Oxalate 15 mg 02/19/18 08:19 03/06/18 08:05 Lexapro G-TUBE 15 mg DAILY ARTHUR Administration Fluconazole 200 mg 03/16/18 09:00 03/19/18 08:34 Diflucan PO 200 mg DAILY ARTHUR Administration Furosemide 40 mg 03/18/18 09:00 03/19/18 08:38 Lasix Inj IV.PUSH 40 mg DAILY ARTHUR Administration Heparin Sodium (Porcine) 5,000 units 02/21/18 21:00 03/05/18 09:25 Heparin Inj SQ 5,000 units Q12HR ARTHUR Administration Hydralazine HCl 100 mg 02/19/18 08:19 03/05/18 09:11 Apresoline G-TUBE Not Given TID ARTHUR Fentanyl 2,500 mcg in 250 mls @ 5 mls/hr 03/05/18 08:30 03/11/18 09:00 Fentanyl 10 Mcg/Ml Premix Drip IV.SIG Infused TITRATE PRN Titration Per Protocol Protocol 50 MCG/HR Midazolam HCl 50 mg in 50 mls @ 2 mls/hr 03/05/18 23:44 03/06/18 16:04 Versed Inj IV.CONT Infused TITRATE PRN Titration Per Protocol Protocol 2 MG/HR Linezolid 300 mls @ 300 mls/hr 03/08/18 22:00 03/19/18 12:47 Zyvox 600 Mg Premix IV.SIG Infused Q12H ARTHUR Infusion Potassium Chloride 40 meq in 100 mls @ 25 mls/hr 03/13/18 14:59 03/17/18 15: 46 Kcl 40 Meq Premix Inj IV.SIG Infused Q2H PRN Infusion For Potassium 2.8 - 3.2 mEq/L Potassium Chloride 20 meq in 100 mls @ 50 mls/hr 03/13/18 14:59 03/14/18 20: 05 Kcl 20 Meq Premix Inj IV.SIG Infused Q2H PRN Infusion For Potassium 3.3 - 3.5 mEq/L Potassium Chloride 40 meq in 100 mls @ 25 mls/hr 03/13/18 14:59 03/19/18 12: 47 Kcl 40 Meq Premix Inj IV.SIG Infused UNSCH PRN Infusion For Potassium 3.3 - 3.5 mEq/L Potassium Chloride 20 meq in 100 mls @ 50 mls/hr 03/13/18 14:59 03/18/18 02: 14 Kcl 20 Meq Premix Inj IV.SIG Infused Q2H PRN Infusion For Potassium 2.8 - 3.2 mEq/L Dextrose/Sodium Chloride 1,000 mls @ 50 mls/hr 03/14/18 13:15 03/19/18 03:26 D5w/1/4 Ns Inj IV.CONT 50 mls/hr .Q20H ARTHUR Administration Ceftazidime/Avibactam 2.5 gm/ 50 mls @ 25 mls/hr 03/15/18 20:00 03/19/18 12: 38 Sodium Chloride IV.SIG 25 mls/hr Q8H ARTHUR Administration Micafungin Sodium 150 mg/ 100 mls @ 100 mls/hr 03/17/18 14:00 03/19/18 14:50 Sodium Chloride IV.SIG 100 mls/hr Q24H ARTHUR Administration Vancomycin HCl 1,250 mg/ 262.5 mls @ 250 mls/hr 03/18/18 21:00 03/19/18 13:00 Sodium Chloride IV.SIG Infused Q12H ARTHUR Infusion Insulin Human Regular 0 units 03/05/18 12:00 03/19/18 16:44 Novolin R Correctional Sugar Inj SQ Not Given Q4HR ARTHUR Protocol Lansoprazole 30 mg 02/20/18 09:00 03/19/18 08:45 Prevacid Solutab NG/OG 30 mg DAILY ARTHUR Administration Levetiracetam 500 mg 02/19/18 08:19 03/19/18 12:38 Keppra G-TUBE 500 mg TID ARTHUR Administration Ondansetron HCl 4 mg 02/17/18 06:46 03/14/18 20:06 Zofran Inj IV.PUSH 4 mg Q6H PRN Administration NAUSEA OR VOMITING Potassium Bicarb/Potassium Chloride 50 meq 03/13/18 14:59 03/15/18 22:41 K-Lyte Cl Eff PO 50 meq UNSCH PRN Administration For Potassium 3.3 - 3.5 mEq/L Senna/Docusate Sodium 1 tab 02/19/18 08:19 03/19/18 08:38 Jessie-Colace G-TUBE Not Given BID ARTHUR Sterile Water 200 ml 03/15/18 12:00 03/19/18 13:02 Free Water G-TUBE 200 ml Q6HR ARTHUR Administration Temazepam 15 mg 02/17/18 06:46 03/01/18 21:33 Restoril PO 15 mg HS PRN Administration INSOMNIA Objective Remarks: GENERAL: Chronically ill-appearing male patient, intubated, in no acute distress. Alert, attempting to communicate. SKIN: Warm and dry. HEAD: Normocephalic. EYES: No scleral icterus. No injection or drainage. NECK: Supple, trachea midline. +Trach. CARDIOVASCULAR: Regular rate and rhythm without murmurs. RESPIRATORY: + Intubated. Breath sounds equal bilaterally. No accessory muscle use.+ Right chest tube. GASTROINTESTINAL: Abdomen soft, non-tender, nondistended. EXTREMITIES: No cyanosis, or edema. Support boots to BLE. MUSCULOSKELETAL: Decreased muscle tone. NEUROLOGICAL: Awake, alert. Attempting to communicate. Nodding head. Assessment/Plan (1) End stage renal disease Code(s): N18.6 - End stage renal disease Status: Acute (2) GI bleed Code(s): K92.2 - Gastrointestinal hemorrhage, unspecified Status: Acute (3) Anemia Code(s): D64.9 - Anemia, unspecified Status: Acute (4) Osteomyelitis Code(s): M86.9 - Osteomyelitis, unspecified Status: Acute (5) Diabetes Code(s): E11.9 - Type 2 diabetes mellitus without complications Status: Acute (6) Anemia of chronic disorder Code(s): D63.8 - Anemia in other chronic diseases classified elsewhere Status : Acute (7) Acute on chronic anemia Code(s): D64.9 - Anemia, unspecified Status: Acute (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 He is on a ventilator. He has undergone cardiac arrest. Status post ACLS protocol. He was successfully resuscitated. He has respiratory failure. He has osteomyelitis of the foot. He also has sepsis and pneumonia. He has candiduria. He is currently on multiple antibiotics. He has a history of stroke and chronic anemia. He developed acute on chronic anemia. He has acute on chronic kidney disease. During the course of his workup serum protein electrophoresis and immunoelectrophoresis was performed. These tests were interpreted as abnormal and hematology has been consulted to make further recommendations: Plan: 1. Serum protein electrophoresis results consistent with inflammation/reactive process. Immunoelectrophoresis is still pending. 2. Anemia of chronic inflammation. Recommendations to keep hemoglobin greater than 7.5. No transfusion warranted today. GFR greater than 60, therefore we will hold off on Procrit injections. 3. Sepsis, pneumonia and osteomyelitis. Management per activities therapist and infectious disease, currently on multiple antibiotics. 4. Pleural fluid was inconclusive for malignant cells. Markedly reactive mesothelial cells versus carcinoma. Insufficient material is present in the cell block for further testing. - Attending Statement Patient seen and examined with nurse practitioner. Agree with plan and management.
--- NOTE | 2018-03-19 17:58 | P.PNPL ---
Subjective Interval history: 47 YO male with RF, on vent On Vent, fi02 45% Off sedation Opens eyes No N,V had percutaneous Trach Physical Exam Vital signs: Vital Signs 03/18/18 18:00 03/18/18 19:00 03/18/18 20:00 Temperature 100.2 F H Pulse Rate 90 90 99 H Respiratory Rate Blood Pressure 146/84 H 171/87 H 134/81 Pulse Oximetry 100 100 100 03/18/18 20:46 03/18/18 21:00 03/18/18 22:00 Temperature Pulse Rate 97 H 100 H 100 H Respiratory Rate 15 Blood Pressure 135/81 139/82 Pulse Oximetry 100 100 88 L 03/18/18 23:00 03/18/18 23:48 03/19/18 00:00 Temperature 100.6 F H Pulse Rate 100 H 98 H 99 H Respiratory Rate 15 Blood Pressure 127/79 136/84 Pulse Oximetry 100 100 100 03/19/18 01:00 03/19/18 02:00 03/19/18 03:00 Temperature Pulse Rate 94 H 91 H 94 H Respiratory Rate Blood Pressure 139/86 122/77 136/85 Pulse Oximetry 100 100 100 03/19/18 03:56 03/19/18 04:00 03/19/18 05:00 Temperature 101 F H Pulse Rate 100 H 97 H 98 H Respiratory Rate 15 Blood Pressure 152/93 H 142/87 H Pulse Oximetry 100 100 98 03/19/18 06:00 03/19/18 07:00 03/19/18 07:51 Temperature Pulse Rate 88 82 Respiratory Rate 15 Blood Pressure 125/76 146/81 H Pulse Oximetry 99 100 100 03/19/18 08:00 03/19/18 09:00 03/19/18 10:00 Temperature 99.8 F H Pulse Rate 84 92 H 92 H Respiratory Rate Blood Pressure 145/87 H 136/80 130/77 Pulse Oximetry 100 100 100 03/19/18 10:47 03/19/18 11:00 03/19/18 12:00 Temperature 100.6 F H 99.2 F Pulse Rate 116 H 92 H 91 H Respiratory Rate 20 Blood Pressure 133/72 159/99 H 157/88 H Pulse Oximetry 93 L 100 100 03/19/18 12:30 03/19/18 12:32 03/19/18 13:00 Temperature Pulse Rate 91 H 90 Respiratory Rate 20 20 Blood Pressure 123/79 Pulse Oximetry 100 100 03/19/18 14:00 03/19/18 15:00 03/19/18 16:00 Temperature 100.2 F H Pulse Rate 90 96 H 94 H Respiratory Rate Blood Pressure 149/84 H 140/83 147/87 H Pulse Oximetry 100 100 60 L 03/19/18 16:05 03/19/18 16:06 Temperature Pulse Rate 92 H Respiratory Rate 19 16 Blood Pressure Pulse Oximetry 99 Intake & Output 03/18/18 03/19/18 03/19/18 18:59 06:59 18:59 Intake Total 992 / 992 2192.5 / 2192.5 712.5 / 712.5 Output Total 4715 / 4715 1560 / 1560 2600 / 2600 Balance -3723 / -3723 632.5 / 632.5 -1887.5 / -1887.5 Weight 80.3 kg Intake: IV 450 / 450 1662.5 / 1662.5 712.5 / 712.5 D5W/1/4 NS Inj 1,000 ML @ 50 1000 / 1000 mls/hr IV.CONT .Q20H KRISTIE Rx#: [id number] Avycaz Inj 2.5 GM In NS Inj 50 50 / 50 100 / 100 50 / 50 ML @ 25 mls/hr IV.SIG Q8H KRISTIE Rx#:[id number] Zyvox 600 mg Premix 300 ML @ 300 / 300 300 / 300 300 / 300 300 mls/hr IV.SIG Q12H KRISTIE Rx#: [id number] Mycamine Inj 150 MG In NS Inj 100 / 100 100 ML @ 100 mls/hr IV.SIG Q24H KRISTIE Rx#:[id number] KCl 40 mEq Premix Inj 40 meq In 100 / 100 100 ml @ 25 mls/hr IV.SIG UNSCH PRN Rx#:[id number] Vancomycin Inj 1,250 MG In NS 262.5 / 262.5 262.5 / 262.5 Inj 250 ML @ 250 mls/hr IV.SIG Q12H KRISTIE Rx#:[id number] Tube Feeding 342 / 342 330 / 330 Tube Irrigant 200 / 200 Water Bolus Amount 200 / 200 Output: Stool 400 / 400 Urine Amount (Catheter) 3715 / 3715 1100 / 1100 2600 / 2600 Indwelling Urethral Catheter 3715 / 3715 1100 / 1100 2600 / 2600 Gastric Drainage 300 / 300 Left Upper Quadrant Gastrostomy 300 / 300 Tube (PEG) Chest Tube Drainage 700 / 700 60 / 60 Right Pleural 700 / 700 60 / 60 Other: Date of Last Bowel Movement 03/18/18 03/19/18 03/19/18 GENERAL: WBWn, on Vent SKIN: Warm and dry. HEAD: Normocephalic. EYES: No scleral icterus. No injection or drainage. NECK: Supple, trachea midline. No JVD or lymphadenopathy. trach CARDIOVASCULAR: Regular rate and rhythm without murmurs, gallops, or rubs. RESPIRATORY: Breath sounds equal bilaterally. No accessory muscle use. GASTROINTESTINAL: Abdomen soft, non-tender, nondistended. MUSCULOSKELETAL: No cyanosis, or edema. BACK: Nontender without obvious deformity. No CVA tenderness. GENERAL: SKIN: Warm and dry. HEAD: Normocephalic. EYES: No scleral icterus. No injection or drainage. NECK: Supple, trachea midline. No JVD or lymphadenopathy. CARDIOVASCULAR: Regular rate and rhythm without murmurs, gallops, or rubs. RESPIRATORY: Breath sounds equal bilaterally. No accessory muscle use. GASTROINTESTINAL: Abdomen soft, non-tender, nondistended. MUSCULOSKELETAL: No cyanosis, or edema. BACK: Nontender without obvious deformity. No CVA tenderness. - Urinary Catheter Management Indwelling Urethral Catheter Cath placed during this visit: yes Reason for continuing: Acute urinary retention Insertion date: 03/05/18 Insertion time: 08:00 Assessment and Plan - Plan IMPRESSION: 1. Bilateral lung infiltrates. 2. Small pleural effusion. 3. Osteomyelitis of both feet. 4. Diabetes mellitus. 5. Cerebrovascular accident with left-sided contracture. 6. VDRF 7. S/P cardiopulm arrest. PLAN: Vent Support Cont Abx per ID Aerosol nebs monitor Pl eff Monitor renal functions. Tube feeding
[2018-03-19] MEDS: Potassium Chloride 25 MEQ Effervescent Tablet PO PRN (20:29)
[2018-03-20] MEDS: Insulin NovoLIN Regular Correctional Sugar Inj SQ SCH ×6 (00:16→20:29)
[2018-03-20] MEDS: Ceftazidime/Avibactam Inj 2.5 GM in Sodium Chlor 0.9% Inj 50 ML IV.SIG SCH ×3 (04:07→20:12)
[2018-03-20 07:08] LABS: Hematocrit 23.4 % (39.0-51.0); Hemoglobin 7.6 gm/dL (13.0-17.0); Mean Corpuscular HGB Conc 32.5 % (32.0-36.0); Mean Corpuscular Hemoglobin 29.5 pg (27.0-34.0); Mean Platelet Volume 8.1 fL (7.0-11.0); Platelet Count 218 th/mm3 (150-450); Red Blood Count 2.57 mil/mm3 (4.50-5.90); Red Cell Distribution Width 15.2 % (11.6-17.2); White Blood Count 7.3 th/mm3 (4.0-11.0)
[2018-03-20] MEDS ORDERED: Pharmacy Ordered Lab Info OTHER ONE (08:45)
[2018-03-20] MEDS: Senna/Docusate Sodium 8.6/50 MG Tablet G-TUBE SCH ×2 (09:13→20:12)
[2018-03-20] MEDS: Vancomycin Inj 1,250 MG in Sodium Chlor 0.9% Inj 250 ML IV.SIG SCH (09:14)
[2018-03-20] MEDS: levETIRAcetam 500 MG Tablet G-TUBE SCH ×3 (09:14→18:10)
[2018-03-20] MEDS: Hypromellose 0.3% Opth Gel 10 GM Bottle EACH EYE SCH ×2 (09:14→20:12)
[2018-03-20] MEDS: Ascorbic Acid 500 MG Tablet G-TUBE SCH ×2 (09:14→20:12)
[2018-03-20] MEDS: Dextrose 5%/NaCl 0.225% Inj 1,000 ML IV.CONT SCH (09:15)
--- NOTE | 2018-03-20 09:47 | P.PNONC ---
Subjective Interval history: Still with low-grade fevers, T-max 100.6. Patient lying in bed, in no acute distress. He denies pain with head shake now. Objective Vital Signs/Intake & Output: Vital Signs 03/19/18 10:00 03/19/18 10:47 03/19/18 11:00 Temperature 100.6 F H Pulse Rate 92 H 116 H 92 H Respiratory Rate 20 Blood Pressure 130/77 133/72 159/99 H Pulse Oximetry 100 93 L 100 03/19/18 12:00 03/19/18 12:30 03/19/18 12:32 Temperature 99.2 F Pulse Rate 91 H 91 H Respiratory Rate 20 20 Blood Pressure 157/88 H Pulse Oximetry 100 100 03/19/18 13:00 03/19/18 14:00 03/19/18 15:00 Temperature Pulse Rate 90 90 96 H Respiratory Rate Blood Pressure 123/79 149/84 H 140/83 Pulse Oximetry 100 100 100 03/19/18 16:00 03/19/18 16:05 03/19/18 16:06 Temperature 100.2 F H Pulse Rate 94 H 92 H Respiratory Rate 19 16 Blood Pressure 147/87 H Pulse Oximetry 60 L 99 03/19/18 17:00 03/19/18 18:00 03/19/18 19:00 Temperature Pulse Rate 92 H 91 H 93 H Respiratory Rate Blood Pressure 140/82 130/80 132/81 Pulse Oximetry 89 L 93 L 100 03/19/18 20:00 03/19/18 21:00 03/19/18 21:16 Temperature 98.2 F Pulse Rate 101 H 97 H 94 H Respiratory Rate 16 16 Blood Pressure 127/75 130/81 Pulse Oximetry 95 91 L 97 03/19/18 22:00 03/19/18 23:00 03/19/18 23:36 Temperature Pulse Rate 96 H 92 H 93 H Respiratory Rate 17 Blood Pressure 123/78 120/75 Pulse Oximetry 99 100 99 03/20/18 00:00 03/20/18 01:00 03/20/18 02:00 Temperature 98.2 F Pulse Rate 93 H 93 H 91 H Respiratory Rate Blood Pressure 118/72 129/77 128/77 Pulse Oximetry 100 90 L 100 03/20/18 03:00 03/20/18 03:33 03/20/18 04:00 Temperature 98.4 F Pulse Rate 91 H 88 95 H Respiratory Rate 16 Blood Pressure 138/83 115/81 Pulse Oximetry 100 100 100 03/20/18 05:00 03/20/18 06:00 03/20/18 07:00 Temperature Pulse Rate 108 H 104 H 101 H Respiratory Rate 28 H Blood Pressure 118/76 120/72 Pulse Oximetry 93 L 99 03/20/18 08:55 Temperature Pulse Rate Respiratory Rate 31 H Blood Pressure Pulse Oximetry 100 Intake & Output 03/19/18 03/20/18 03/20/18 18:59 06:59 18:59 Intake Total 1312.5 / 1312.5 / Output Total 3080 / 3080 950 / 950 Balance -1767.5 / -1767.5 1062.5 / 1062.5 Weight 79.2 kg Intake: IV 812.5 / 812.5 1612.5 / 1612.5 D5W/1/4 NS Inj 1,000 ML @ 50 1000 / 1000 mls/hr IV.CONT .Q20H ARTHUR Rx#: [id number] Avycaz Inj 2.5 GM In NS Inj 50 50 / 50 50 / 50 ML @ 25 mls/hr IV.SIG Q8H ARTHUR Rx#:[id number] Zyvox 600 mg Premix 300 ML @ 300 / 300 300 / 300 300 mls/hr IV.SIG Q12H ARTHUR Rx#: [id number] Mycamine Inj 150 MG In NS Inj 100 / 100 100 ML @ 100 mls/hr IV.SIG Q24H ARTHUR Rx#:[id number] KCl 40 mEq Premix Inj 40 meq In 100 / 100 100 ml @ 25 mls/hr IV.SIG UNSCH PRN Rx#:[id number] Vancomycin Inj 1,250 MG In NS 262.5 / 262.5 262.5 / 262.5 Inj 250 ML @ 250 mls/hr IV.SIG Q12H ARTHUR Rx#:[id number] Tube Feeding 0 / 0 0 / 0 Tube Irrigant 100 / 100 Water Bolus Amount 400 / 400 400 / 400 Output: Stool 80 / 80 Urine Amount (Catheter) 2950 / 2950 950 / 950 Indwelling Urethral Catheter 2950 / 2950 950 / 950 Chest Tube Drainage 50 / 50 Right Pleural 50 / 50 Other: Date of Last Bowel Movement 03/19/18 03/19/18 Result Diagrams: 03/20/18 04:40 03/20/18 09:00 Laboratory Results: Laboratory Results - last 24 hr 03/05/18 03/14/18 03/19/18 18:20 04:20 12:34 WBC RBC Hgb Hct MCV MCH MCHC RDW Plt Count MPV Potassium POC Glucose 167 H CECILIA Interpretation MTS Gel Crossmatch See Detail 03/19/18 03/19/18 03/19/18 16:19 17:15 19:58 WBC RBC Hgb Hct MCV MCH MCHC RDW Plt Count MPV Potassium 3.4 L POC Glucose 112 H 127 H CECILIA Interpretation MTS Gel Crossmatch 03/20/18 03/20/18 03/20/18 00:15 04:06 04:40 WBC 7.3 RBC 2.57 L Hgb 7.6 L Hct 23.4 L MCV 91.0 MCH 29.5 MCHC 32.5 RDW 15.2 Plt Count 218 MPV 8.1 Potassium POC Glucose 141 H 126 H CECILIA Interpretation MTS Gel Crossmatch 03/20/18 09:12 WBC RBC Hgb Hct MCV MCH MCHC RDW Plt Count MPV Potassium POC Glucose 153 H CECILIA Interpretation MTS Gel Crossmatch Culture Results: Microbiology 03/18/18 09:55 Gram Stain - Final Fluid - Pleural fluid Body Fluid Culture - Preliminary No growth in 48 hours 03/18/18 09:55 Acid Fast Bacilli Smear - Final Fluid - Pleural fluid No acid fast bacilli seen 03/18/18 06:15 Aerobic Blood Culture - Preliminary Blood - Peripheral No growth in 1 day Anaerobic Blood Culture - Preliminary No growth in 1 day 03/18/18 04:20 Aerobic Blood Culture - Preliminary Blood - Peripheral No growth in 1 day Anaerobic Blood Culture - Preliminary No growth in 1 day 03/15/18 10:12 Aerobic Blood Culture - Preliminary Blood - Peripheral No growth in 4 days Anaerobic Blood Culture - Final Nan glabrata 03/15/18 10:07 Aerobic Blood Culture - Preliminary Blood - Peripheral No growth in 4 days Anaerobic Blood Culture - Preliminary No growth in 4 days 03/18/18 09:55 Fungal Smear - Final Fluid - Pleural fluid No fungal elements seen 03/13/18 11:10 Gram Stain - Final Sputum - Endotracheal Sputum Culture - Final Klebsiella pneumoniae Multidrug Resistant Imaging Studies: Impressions Chest X-Ray 03/19/18 00:00 CONCLUSION: Tracheostomy tube in good position. Medications: Active Medications Generic Name Dose Route Start Last Admin Trade Name Freq PRN Reason Stop Dose Admin Albuterol 1 ampul 03/17/18 12:00 03/20/18 09:04 Duoneb Neb (Arthur) NEB 1 ampul Q4HR NEB ARTHUR Administration Amlodipine Besylate 10 mg 02/20/18 09:00 03/05/18 09:12 Norvasc G-TUBE Not Given DAILY ARTHUR Artificial Tears 1 drops 03/17/18 21:00 03/20/18 09:14 Genteal Severe Dry Eye Relief 0.3% Opth Gel EACH EYE 1 drops BID ARTHUR Administration Ascorbic Acid 500 mg 02/19/18 08:13 03/20/18 09:14 Vitamin C G-TUBE 500 mg BID ARTHUR Administration Atorvastatin Calcium 10 mg 02/17/18 21:00 03/19/18 20:30 Lipitor G-TUBE 10 mg HS ARTHUR Administration Carvedilol 25 mg 02/17/18 13:00 03/05/18 09:11 Coreg G-TUBE Not Given BID ARTHUR Dextrose 50 ml 02/17/18 11:23 03/14/18 05:02 D50w Vial IV.PUSH 50 ml UNSCH PRN Administration PER HYPOGLYCEMIA PROTOCOL Enalaprilat 2.5 mg 02/17/18 11:25 02/21/18 01:34 Vasotec Inj IV.PUSH 2.5 mg Q6H PRN Administration SBP>160, DBP>90 Escitalopram Oxalate 15 mg 02/19/18 08:19 03/06/18 08:05 Lexapro G-TUBE 15 mg DAILY ARTHUR Administration Fluconazole 200 mg 03/16/18 09:00 03/20/18 09:13 Diflucan PO 200 mg DAILY ARTHUR Administration Furosemide 40 mg 03/18/18 09:00 03/20/18 09:14 Lasix Inj IV.PUSH 40 mg DAILY ARTHUR Administration Heparin Sodium (Porcine) 5,000 units 02/21/18 21:00 03/05/18 09:25 Heparin Inj SQ 5,000 units Q12HR ARTHUR Administration Hydralazine HCl 100 mg 02/19/18 08:19 03/05/18 09:11 Apresoline G-TUBE Not Given TID ARTHUR Fentanyl 2,500 mcg in 250 mls @ 5 mls/hr 03/05/18 08:30 03/11/18 09:00 Fentanyl 10 Mcg/Ml Premix Drip IV.SIG Infused TITRATE PRN Titration Per Protocol Protocol 50 MCG/HR Midazolam HCl 50 mg in 50 mls @ 2 mls/hr 03/05/18 23:44 03/06/18 16:04 Versed Inj IV.CONT Infused TITRATE PRN Titration Per Protocol Protocol 2 MG/HR Linezolid 300 mls @ 300 mls/hr 03/08/18 22:00 03/20/18 09:15 Zyvox 600 Mg Premix IV.SIG 300 mls/hr Q12H ARTHUR Administration Potassium Chloride 40 meq in 100 mls @ 25 mls/hr 03/13/18 14:59 03/17/18 15: 46 Kcl 40 Meq Premix Inj IV.SIG Infused Q2H PRN Infusion For Potassium 2.8 - 3.2 mEq/L Potassium Chloride 20 meq in 100 mls @ 50 mls/hr 03/13/18 14:59 03/14/18 20: 05 Kcl 20 Meq Premix Inj IV.SIG Infused Q2H PRN Infusion For Potassium 3.3 - 3.5 mEq/L Potassium Chloride 40 meq in 100 mls @ 25 mls/hr 03/13/18 14:59 03/19/18 12: 47 Kcl 40 Meq Premix Inj IV.SIG Infused UNSCH PRN Infusion For Potassium 3.3 - 3.5 mEq/L Potassium Chloride 20 meq in 100 mls @ 50 mls/hr 03/13/18 14:59 03/18/18 02: 14 Kcl 20 Meq Premix Inj IV.SIG Infused Q2H PRN Infusion For Potassium 2.8 - 3.2 mEq/L Dextrose/Sodium Chloride 1,000 mls @ 50 mls/hr 03/14/18 13:15 03/20/18 09:15 D5w/1/4 Ns Inj IV.CONT 50 mls/hr .Q20H ARTHUR Administration Ceftazidime/Avibactam 2.5 gm/ 50 mls @ 25 mls/hr 03/15/18 20:00 03/20/18 04: 07 Sodium Chloride IV.SIG 25 mls/hr Q8H ARTHUR Administration Micafungin Sodium 150 mg/ 100 mls @ 100 mls/hr 03/17/18 14:00 03/19/18 15:50 Sodium Chloride IV.SIG Infused Q24H ARTHUR Infusion Vancomycin HCl 1,250 mg/ 262.5 mls @ 250 mls/hr 03/18/18 21:00 03/20/18 09:14 Sodium Chloride IV.SIG 250 mls/hr Q12H ARTHUR Administration Insulin Human Regular 0 units 03/05/18 12:00 03/20/18 09:13 Novolin R Correctional Sugar Inj SQ Not Given Q4HR ARTHUR Protocol Lansoprazole 30 mg 02/20/18 09:00 03/20/18 09:14 Prevacid Solutab NG/OG 30 mg DAILY ARTHUR Administration Levetiracetam 500 mg 02/19/18 08:19 03/20/18 09:14 Keppra G-TUBE 500 mg TID ARTHUR Administration Ondansetron HCl 4 mg 02/17/18 06:46 03/14/18 20:06 Zofran Inj IV.PUSH 4 mg Q6H PRN Administration NAUSEA OR VOMITING Potassium Bicarb/Potassium Chloride 50 meq 03/13/18 14:59 03/19/18 20:29 K-Lyte Cl Eff PO 50 meq UNSCH PRN Administration For Potassium 3.3 - 3.5 mEq/L Senna/Docusate Sodium 1 tab 02/19/18 08:19 03/20/18 09:13 Jessie-Colace G-TUBE 1 tab BID ARTHUR Administration Sterile Water 200 ml 03/15/18 12:00 03/20/18 06:09 Free Water G-TUBE 200 ml Q6HR ARTHUR Administration Temazepam 15 mg 02/17/18 06:46 03/01/18 21:33 Restoril PO 15 mg HS PRN Administration INSOMNIA Objective Remarks: GENERAL: Chronically ill-appearing male patient, intubated, in no acute distress. Alert, communicating with head nods. SKIN: Warm and dry. HEAD: Normocephalic. EYES: No scleral icterus. No injection or drainage. NECK: Supple, trachea midline. +Trach. CARDIOVASCULAR: Regular rate and rhythm without murmurs. RESPIRATORY: + Vent via trach. Breath sounds equal bilaterally. No accessory muscle use.+ Right chest tube. GASTROINTESTINAL: Abdomen soft, non-tender, nondistended. EXTREMITIES: No cyanosis, or edema. Support boots to BLE. MUSCULOSKELETAL: Decreased muscle tone. NEUROLOGICAL: Awake, alert. Nodding head. Assessment/Plan (1) End stage renal disease Code(s): N18.6 - End stage renal disease Status: Acute (2) GI bleed Code(s): K92.2 - Gastrointestinal hemorrhage, unspecified Status: Acute (3) Anemia Code(s): D64.9 - Anemia, unspecified Status: Acute (4) Osteomyelitis Code(s): M86.9 - Osteomyelitis, unspecified Status: Acute (5) Diabetes Code(s): E11.9 - Type 2 diabetes mellitus without complications Status: Acute (6) Anemia of chronic disorder Code(s): D63.8 - Anemia in other chronic diseases classified elsewhere Status : Acute (7) Acute on chronic anemia Code(s): D64.9 - Anemia, unspecified Status: Acute (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 He is on a ventilator. He has undergone cardiac arrest. Status post ACLS protocol. He was successfully resuscitated. He has respiratory failure. He has osteomyelitis of the foot. He also has sepsis and pneumonia. He has candiduria. He is currently on multiple antibiotics. He has a history of stroke and chronic anemia. He developed acute on chronic anemia. He has acute on chronic kidney disease. During the course of his workup serum protein electrophoresis and immunoelectrophoresis was performed. These tests were interpreted as abnormal and hematology has been consulted to make further recommendations: Plan: 1. Serum protein electrophoresis results consistent with inflammation/reactive process. Immunoelectrophoresis is still pending. 2. Anemia, likely secondary to inflammation. Recommendations to keep hemoglobin greater than 7.5. No transfusion warranted today. We will repeat iron studies. 3. Sepsis, pneumonia and osteomyelitis. Management per enterprise analyst and infectious disease, currently on multiple antibiotics. 4. Adenopathy noted on CT scan. pleural fluid was inconclusive for malignant cells. Markedly reactive mesothelial cells versus carcinoma. Insufficient material is present in the cell block for further testing. This could be secondary to inflammation, however we will repeat a CT scan next week to follow- up on the lymphadenopathy. - Attending Statement Patient seen with nurse practitioner Arlen Lin and agree with the findings. This unfortunate gentleman has anemia which is multifactorial mainly inflammatory. In addition he has malignant appearing cells on pleural fluid cytology but that appears to be nondiagnostic in the presence of active inflammation and bilateral pneumonia ongoing. I could not feel any cervical lymphadenopathy that could be biopsied at this time. Hence I recommend repeat imaging after recovery from his pneumonia for the lesion that could be amenable to biopsy it. We will continue to follow up in the hospital.
--- NOTE | 2018-03-20 11:06 | P.CON ---
History of Present Illness Service: Ophthalmology Reason for Consult: rule out fungal endophthalmitis Primary Care Provider: Doroteo Mackey MD Family Provider: Doroteo Mackey MD Chief Complaint: Abnormal lab including hemoglobin of 6.2 History of Present Illness: 47 yo M with a past medical history of a CVA with left-sided hemiparesis, hypertension, diabetes mellitus, anemia of chronic disease, CHF, dysphagia, status post PEG tube placement, depression, nonverbal, who was admitted on 06/2018 for acute on chronic anemia. s/p trach. Blood culture positive for Nan - Ophthalmology called to rule out ocular involvement. Unable to obtain any ophthalmic history. [facility] - History History Provided By: Family Member - Medical / Surgical Hx Neg / Unobtainable Medical Problems Denied: Unable to Obtain - Medical History Medical History: Medical History (Last Reviewed 03/19/18 @ 08:32 by Carlos Bonilla) Gastrostomy tube in place (Acute) Anemia CVA (cerebral vascular accident) Depression Diabetes HLD (hyperlipidemia) Hemiparesis Hemiplegia Hypertension - Family History Family History: Family History (Last Reviewed 03/15/18 @ 21:11 by Ramón Bruce MD) Other Unknown family medical history - Tobacco History Second Hand Smoke Exposure: No Smoking Status: Never smoker Tobacco Type: Cigarettes - Alcohol History How Often Do You Have a Drink Containing Alcohol: Never - Substance Use History Substance History: No History of Abuse - Travel History Recent Travel in the [place] Within the Last 8 Weeks: No Recent Travel Out of the Country Within the Last 8 Weeks: No - Immunization History Tetanus Immunization: Unable to Assess Hx Influenza Vaccine This Season: Unable to Assess Medications and Allergies Active Medications: Active Medications Acetaminophen (Tylenol Liq) 650 mg PO Q6H PRN PRN Reason: FEVER Al Hydroxide/Mg Hydroxide (Milk Of Magnesia Liq) 30 ml G-TUBE Q12H PRN PRN Reason: Mild Constipation Albuterol (Duoneb Neb (Arthur)) 1 ampul NEB Q4HR NEB ARTHUR Last Admin: 03/20/18 09:04 Dose: 1 ampul Albuterol (Albuterol Neb (Prn)) 2.5 mg NEB Q2HR NEB PRN PRN Reason: DYSPNEA Amlodipine Besylate (Norvasc) 10 mg G-TUBE DAILY ARTHUR Last Admin: 03/05/18 09:12 Dose: Not Given Artificial Tears (Genteal Severe Dry Eye Relief 0.3% Opth Gel) 1 drops EACH EYE BID [facility] Last Admin: 03/20/18 09:14 Dose: 1 drops Ascorbic Acid (Vitamin C) 500 mg G-TUBE BID [facility] Last Admin: 03/20/18 09:14 Dose: 500 mg Atorvastatin Calcium (Lipitor) 10 mg G-TUBE HS [facility] Last Admin: 03/19/18 20:30 Dose: 10 mg Bisacodyl (Dulcolax Supp) 10 mg RECTAL DAILY PRN PRN Reason: SEVERE CONSITIPATION Carvedilol (Coreg) 25 mg G-TUBE BID [facility] Last Admin: 03/05/18 09:11 Dose: Not Given Dextrose (D50w Vial) 50 ml IV.PUSH UNSCH PRN PRN Reason: PER HYPOGLYCEMIA PROTOCOL Last Admin: 03/14/18 05:02 Dose: 50 ml Enalaprilat (Vasotec Inj) 2.5 mg IV.PUSH Q6H PRN PRN Reason: SBP>160, DBP>90 Last Admin: 02/21/18 01:34 Dose: 2.5 mg Escitalopram Oxalate (Lexapro) 15 mg G-TUBE DAILY [facility] Last Admin: 03/06/18 08:05 Dose: 15 mg Fluconazole (Diflucan) 200 mg PO DAILY [facility] Last Admin: 03/20/18 09:13 Dose: 200 mg Furosemide (Lasix Inj) 40 mg IV.PUSH DAILY [facility] Last Admin: 03/20/18 09:14 Dose: 40 mg Glucagon (Glucagon Inj) 1 mg OTHER PRN PRN PRN Reason: for Hypoglycemia Protocol Heparin Sodium (Porcine) (Heparin Inj) 5,000 units SQ Q12HR [facility] Last Admin: 03/05/18 09:25 Dose: 5,000 units Hydralazine HCl (Apresoline) 100 mg G-TUBE TID [facility] Last Admin: 03/05/18 09:11 Dose: Not Given Fentanyl (Fentanyl 10 Mcg/Ml Premix Drip) 2,500 mcg in 250 mls @ 5 mls/hr IV.SIG TITRATE PRN; Protocol PRN Reason: Per Protocol Last Titration: 03/11/18 09:00 Dose: Infused Midazolam HCl (Versed Inj) 50 mg in 50 mls @ 2 mls/hr IV.CONT TITRATE PRN; Protocol PRN Reason: Per Protocol Last Titration: 03/06/18 16:04 Dose: Infused Linezolid (Zyvox 600 Mg Premix) 300 mls @ 300 mls/hr IV.SIG Q12H [facility] Last Admin: 03/20/18 09:15 Dose: 300 mls/hr Magnesium Sulfate Inj 4 gm/ (Sodium Chloride) 100 mls @ 50 mls/hr IV.SIG UNSCH PRN PRN Reason: For Magnesium 0.9 - 1.1 mg/dL Magnesium Sulfate Inj 2 gm/ (Sodium Chloride) 100 mls @ 50 mls/hr IV.SIG UNSCH PRN PRN Reason: For Magnesium 1.2 - 1.6 mg/dL Potassium Chloride (Kcl 40 Meq Premix Inj) 40 meq in 100 mls @ 25 mls/hr IV.SIG Q2H PRN PRN Reason: For Potassium 2.8 - 3.2 mEq/L Last Infusion: 03/17/18 15:46 Dose: Infused Potassium Chloride (Kcl 20 Meq Premix Inj) 20 meq in 100 mls @ 50 mls/hr IV.SIG Q2H PRN PRN Reason: For Potassium 3.3 - 3.5 mEq/L Last Infusion: 03/14/18 20:05 Dose: Infused Potassium Chloride (Kcl 40 Meq Premix Inj) 40 meq in 100 mls @ 25 mls/hr IV.SIG UNSCH PRN PRN Reason: For Potassium 3.3 - 3.5 mEq/L Last Infusion: 03/19/18 12:47 Dose: Infused Potassium Chloride (Kcl 20 Meq Premix Inj) 20 meq in 100 mls @ 50 mls/hr IV.SIG Q2H PRN PRN Reason: For Potassium 2.8 - 3.2 mEq/L Last Infusion: 03/18/18 02:14 Dose: Infused Potassium Phosphate 30 mmol/ (Sodium Chloride) 260 mls @ 42 mls/hr IV.SIG UNSCH PRN PRN Reason: SEE LABEL COMMENTS Sodium Phosphate 30 mmol/ (Sodium Chloride) 260 mls @ 42 mls/hr IV.SIG UNSCH PRN PRN Reason: For Phosphorus < 2.5 mg/dL Dextrose/Sodium Chloride (D5w/1/4 Ns Inj) 1,000 mls @ 50 mls/hr IV.CONT .Q20H [facility] Last Admin: 03/20/18 09:15 Dose: 50 mls/hr Ceftazidime/Avibactam 2.5 gm/ (Sodium Chloride) 50 mls @ 25 mls/hr IV.SIG Q8H [facility] Last Admin: 03/20/18 04:07 Dose: 25 mls/hr Micafungin Sodium 150 mg/ (Sodium Chloride) 100 mls @ 100 mls/hr IV.SIG Q24H [facility]UR Last Infusion: 03/19/18 15:50 Dose: Infused Vancomycin HCl 1,250 mg/ (Sodium Chloride) 262.5 mls @ 250 mls/hr IV.SIG Q12H [facility] Last Admin: 03/20/18 09:14 Dose: 250 mls/hr Insulin Human Regular (Novolin R Correctional Sugar Inj) 0 units SQ Q4HR [facility]; Protocol Last Admin: 03/20/18 09:13 Dose: Not Given Lactulose (Lactulose Liq) 30 ml G-TUBE DAILY PRN PRN Reason: SEVERE CONSITIPATION Lansoprazole (Prevacid Solutab) 30 mg NG/OG DAILY [facility] Last Admin: 03/20/18 09:14 Dose: 30 mg Levetiracetam (Keppra) 500 mg G-TUBE TID [facility] Last Admin: 03/20/18 09:14 Dose: 500 mg Magnesium Oxide (Mag-Ox) 800 mg PO UNSCH PRN PRN Reason: For Magnesium 1.2 - 1.6 mg/dL Miscellaneous (Pill Splitter) 1 each OTHER ONCE [facility] Ondansetron HCl (Zofran Inj) 4 mg IV.PUSH Q6H PRN PRN Reason: NAUSEA OR VOMITING Last Admin: 03/14/18 20:06 Dose: 4 mg Pharmacy Profile Note (Vancomycin Consult Pharmacy) 1 each OTHER UNSCH PRN PRN Reason: Pharmacy to dose Potassium Bicarb/Potassium Chloride (K-Lyte Cl Eff) 50 meq PO UNSCH PRN PRN Reason: For Potassium 3.3 - 3.5 mEq/L Last Admin: 03/19/18 20:29 Dose: 50 meq Potassium Phosphate (K-Phos Original) 2,000 mg PO Q4H PRN PRN Reason: Phosphorus Less Than 2.5 mg/dL Potassium Phosphate (K-Phos Original) 2,000 mg PO UNSCH PRN PRN Reason: SEE LABEL COMMENTS Senna/Docusate Sodium (Jessie-Colace) 1 tab G-TUBE BID [facility] Last Admin: 03/20/18 09:13 Dose: 1 tab Sennosides (Senokot) 17.2 mg PO Q12H PRN PRN Reason: Moderate Constipation Sterile Water (Free Water) 200 ml G-TUBE Q6HR [facility] Last Admin: 03/20/18 06:09 Dose: 200 ml Temazepam (Restoril) 15 mg PO HS PRN PRN Reason: INSOMNIA Last Admin: 03/01/18 21:33 Dose: 15 mg Allergies Allergy/AdvReac Type Severity Reaction Status Date / Time No Known Allergies Allergy Unknown Uncoded 01/06/18 21:04 Home Medications Medication Instructions Recorded Confirmed Type ascorbic acid (vitamin C) [Vitamin 500 mg PO BID 01/15/18 02/17/18 History C] aspirin [Aspir-81] 81 mg FEEDING TUBE DAILY 01/15/18 02/17/18 History atorvastatin 10 mg FEEDING TUBE HS 01/15/18 02/17/18 History carvedilol [Coreg] 25 mg FEEDING TUBE BID 01/15/18 02/17/18 History escitalopram oxalate 15 mg FEEDING TUBE DAILY 01/15/18 02/17/18 History gentamicin 1 applic TOPICAL QID 01/15/18 02/17/18 History hydralazine 100 mg PO TID 01/15/18 02/17/18 History insulin detemir U-100 [Levemir 5 unit SUB-Q BID 01/15/18 02/17/18 History U-100 Insulin] ipratropium-albuterol 3 ml INHALATION Q6-8H PRN 01/15/18 02/17/18 History levetiracetam 500 mg PO TID 01/15/18 02/17/18 History melatonin 3 mg FEEDING TUBE HS 01/15/18 02/17/18 History insulin aspart U-100 [Novolog 1 sliding scale dose SUB-Q UD 02/17/18 02/17/18 History U-100 Insulin aspart] Physical Exam Vital signs: Vital Signs 03/19/18 12:00 03/19/18 12:30 03/19/18 12:32 Temperature 99.2 F Pulse Rate 91 H 91 H Respiratory Rate 20 20 Blood Pressure 157/88 H Pulse Oximetry 100 100 03/19/18 13:00 03/19/18 14:00 03/19/18 15:00 Temperature Pulse Rate 90 90 96 H Respiratory Rate Blood Pressure 123/79 149/84 H 140/83 Pulse Oximetry 100 100 100 03/19/18 16:00 03/19/18 16:05 03/19/18 16:06 Temperature 100.2 F H Pulse Rate 94 H 92 H Respiratory Rate 19 16 Blood Pressure 147/87 H Pulse Oximetry 60 L 99 03/19/18 17:00 03/19/18 18:00 03/19/18 19:00 Temperature Pulse Rate 92 H 91 H 93 H Respiratory Rate Blood Pressure 140/82 130/80 132/81 Pulse Oximetry 89 L 93 L 100 03/19/18 20:00 03/19/18 21:00 03/19/18 21:16 Temperature 98.2 F Pulse Rate 101 H 97 H 94 H Respiratory Rate 16 16 Blood Pressure 127/75 130/81 Pulse Oximetry 95 91 L 97 03/19/18 22:00 03/19/18 23:00 03/19/18 23:36 Temperature Pulse Rate 96 H 92 H 93 H Respiratory Rate 17 Blood Pressure 123/78 120/75 Pulse Oximetry 99 100 99 03/20/18 00:00 03/20/18 01:00 03/20/18 02:00 Temperature 98.2 F Pulse Rate 93 H 93 H 91 H Respiratory Rate Blood Pressure 118/72 129/77 128/77 Pulse Oximetry 100 90 L 100 03/20/18 03:00 03/20/18 03:33 03/20/18 04:00 Temperature 98.4 F Pulse Rate 91 H 88 95 H Respiratory Rate 16 Blood Pressure 138/83 115/81 Pulse Oximetry 100 100 100 03/20/18 05:00 03/20/18 06:00 03/20/18 07:00 Temperature Pulse Rate 108 H 104 H 101 H Respiratory Rate 28 H Blood Pressure 118/76 120/72 Pulse Oximetry 93 L 99 03/20/18 08:55 Temperature Pulse Rate Respiratory Rate 31 H Blood Pressure Pulse Oximetry 100 Intake & Output 03/19/18 03/20/18 03/20/18 18:59 06:59 18:59 Intake Total 1312.5 / 1312.5 Output Total 3080 / 3080 950 / 950 Balance -1767.5 / -1767.5 1062.5 / 1062.5 Weight 79.2 kg Intake: IV 812.5 / 812.5 1612.5 / 1612.5 D5W/1/4 NS Inj 1,000 ML @ 50 1000 / 1000 mls/hr IV.CONT .Q20H [facility] Rx#: [id number] Avycaz Inj 2.5 GM In NS Inj 50 50 / 50 50 / 50 ML @ 25 mls/hr IV.SIG Q8H [facility] Rx#:[id number] Zyvox 600 mg Premix 300 ML @ 300 / 300 300 / 300 300 mls/hr IV.SIG Q12H [facility] Rx#: [id number] Mycamine Inj 150 MG In NS Inj 100 / 100 100 ML @ 100 mls/hr IV.SIG Q24H [facility] Rx#:[id number] KCl 40 mEq Premix Inj 40 meq In 100 / 100 100 ml @ 25 mls/hr IV.SIG UNSCH PRN Rx#:[id number] Vancomycin Inj 1,250 MG In NS 262.5 / 262.5 262.5 / 262.5 Inj 250 ML @ 250 mls/hr IV.SIG Q12H [facility] Rx#:[id number] Tube Feeding 0 / 0 0 / 0 Tube Irrigant 100 / 100 Water Bolus Amount 400 / 400 400 / 400 Output: Stool 80 / 80 Urine Amount (Catheter) 2950 / 2950 950 / 950 Indwelling Urethral Catheter 2950 / 2950 950 / 950 Chest Tube Drainage 50 / 50 Right Pleural 50 / 50 Other: Date of Last Bowel Movement 03/19/18 03/19/18 - Detailed Eye Exam Comments: Va unable EOM grossly full CVF unable Pupils 2-1 no APD OU IOP normal to palpation OU Anterior exam OD - normal eyelid, C/S W&Q, K clear, AC deep, pupil round, lens clear OS - normal eyelid, C/S W&Q, K clear, AC deep, pupil round, lens clear Dilated exam OD - ON s/p/f, ves normal, vit clear, diffuse dot blot hemorrhages OS - ON s/p/f, ves normal, vit clear, diffuse dot blot hemorrhages - Urinary Catheter Management Indwelling Urethral Catheter Cath placed during this visit: yes Reason for continuing: Acute urinary retention Insertion date: 03/05/18 Insertion time: 08:00 Assessment and Plan - Assessment (1) Fungemia Code(s): B49 - Unspecified mycosis Status: Acute Plan: No ocular involvement on dilated exam. (2) Nonproliferative diabetic retinopathy of both eyes Code(s): E11.3293 - Type 2 diabetes mellitus with mild nonproliferative diabetic retinopathy without macular edema, bilateral Status: Acute Plan: No eye treatment needed at this time. Reversible with better blood glucose control.
[2018-03-20 11:13] LABS: Anion Gap 10 meq/L (5-15); Aspartate Aminotransferase 25 U/L (15-37); Blood Urea Nitrogen 14 mg/dL (7-18); Calcium 8.5 mg/dL (8.5-10.1); Carbon Dioxide 25.7 meq/L (21.0-32.0); Chloride 106 meq/L (98-107); Glomerular Filtration Rate 67 mL/min (>89); Glucose,Random 127 mg/dL (74-106); Potassium 3.7 meq/L (3.5-5.1); Sodium 142 meq/L (136-145)
[2018-03-20 11:14] LABS: Alanine Aminotransferase 24 U/L (12-78); Iron 17 mcg/dL (65-175); Lactate Dehydrogenase 312 U/L (87-241)
[2018-03-20 11:17] LABS: % Iron Saturation 8.6 % (20-50); Alkaline Phosphatase 119 U/L (45-117); Total Iron Binding Capacity 199 mcg/dL (250-450); Total Protein 7.5 g/dL (6.4-8.2); Vancomycin,Trough 31.8 mcg/mL (5.0-10.0)
--- NOTE | 2018-03-20 13:34 | P.PNCC ---
Subjective Subjective Remarks/Hospital Course: The patient is a 47-year-old male with a past medical history of a CVA with left -sided hemiparesis, hypertension, diabetes mellitus, anemia of chronic disease, CHF, dysphagia, status post PEG tube placement, depression, nonverbal, who was admitted under the hospitalist service on 02/17/2018 for acute on chronic anemia. In addition, the patient has a history of bilateral foot osteomyelitis. During his hospital course, he had worsening renal function with a creatinine of 1.74 this morning from 1.1 on admission. In addition, the patient was found hypernatremic with a sodium level of 156 and hyperkalemic with a potassium level 5.3. A halicat was called 2 days ago for shortness of breath, and this morning the patient had a PEA arrest. ACLS protocol was initiated and the patient received epinephrine x3, 2 amps of bicarbonate, and 1 amp of calcium and was subsequently intubated by myself with an ET tube 8.0 cm size. A chest x-ray post intubation showed diffuse bilateral pulmonary infiltrates. He was on NS at 100 mL an hour for the past 2 days. Also, he had a venous Doppler ultrasound on 02/18/2018, which showed no evidence of a DVT; however, it showed a pseudoaneurysm at the distal brachial artery measuring 3.6 x 2.2 x 2.2 cm, predominantly thrombosed; however, there was a small patent component with biphasic flow measuring 6 x 9 mm. A single lumen right PICC line was placed by interventional radiology on 02/22/2018. The patient also had an arterial Doppler ultrasound which was within normal. He was seen by Dr. Jensen from vascular surgery. In addition, the patient has been followed by podiatry and infectious disease. ABG postcode showed acute hypercapnic respiratory acidosis with a pH of 7.11, CO2 of 83, PaO2 of 99, bicarbonate 25, saturation 92% on PRVC mode, rate of 16, tidal volume 500, PEEP of 5, 100% FiO2, and I time 0.9. 03/06 Patient is sedated with Versed and Fenantl drips Levophed started overnight on 4 mics. Afebrile. Renal function worse this morning with C: 1.93 from 1.75 s/p transfusion 2U PRBC yesterday . 03/07: Remains sedated, arousable, orally intubated on mechanical ventilation. Sputum growing ESBL Klebsiella. 03/08 Patient remains intubated and Sedated with Fentanyl drip. Had T: 101 last night.Had an episode of hypoglycemia last night given D50 and placed on D10. 03/09 Patient remains sedated and intubated. T: 100 at 4 am. 03/10 Patient is intubated, sedated T:99.9. renal function is improving with Cr: 2.08 from 2.47 03/11 Patient remains intubated and sedated with Fentanyl drip. Afebrile. 03/12 Patient is off sedation intubated does not follow commands, afebrile. CT brain yesterday no acute findings. 03/13 Patient remains off sedation doesn't follow commands, T:100.3 last night. Renal function is improving with Cr: 1.47 from 1.65 03/14 Remains intubated, afebrile. TF om hold for emesis. Afebrile. 03/15 Patient remains intubated T:100.0 last night. 03/16: Patient remains intubated, sedated appears to follow some commands on sedation hold. Continues to have low-grade fever. Failed CPAP trial today due to severe tachypnea and low tidal volume. Chest x-ray shows worsening bilateral infiltrates/effusion. Will check CT to evaluate for infiltrate versus effusion. Also will increase Lasix to 40 mg every 12. Subjective 03/17: Remains intubated. T-max 100F. Opens eyes on sedation vacation. Failed CPAP 3 days due to apnea/tachypnea and low tidal problems. 03/18: Remains intubated off sedation. Now with worsening sepsis fever 100.9 T- max, candidemia on cultures from 03/15/2018. Growing yeast. Most likely source Acuna catheter on the right side. I have placed a left subclavian central line. IR to remove the Acuna catheter GILDA discussed with Dr. Paul. Continues to fail CPAP trial most likely needs tracheostomy if he fails to be in after draining the right pleural effusion 03/19: Failed CPAP again today due to low tidal volumes and tachypnea. Right chest tube placed yesterday with some 60 mL hemorrhagic effusion. Cultures remain negative today. Fungal blood culture with Nan glabrata, Acuna catheter removed yesterday after the left subclavian line was placed 03/20: Patient is status post trach yesterday currently more awake following commands on the right side. Minimal dose from the trach site has stopped. Ophthalmology consult appreciated no evidence of eye involvement from fungemia Objective Vital Signs / I&O: Vital Signs 03/19/18 14:00 03/19/18 15:00 03/19/18 16:00 Temperature 100.2 F H Pulse Rate 90 96 H 94 H Respiratory Rate Blood Pressure 149/84 H 140/83 147/87 H Pulse Oximetry 100 100 60 L 03/19/18 16:05 03/19/18 16:06 03/19/18 17:00 Temperature Pulse Rate 92 H 92 H Respiratory Rate 19 16 Blood Pressure 140/82 Pulse Oximetry 99 89 L 03/19/18 18:00 03/19/18 19:00 03/19/18 20:00 Temperature 98.2 F Pulse Rate 91 H 93 H 101 H Respiratory Rate 16 Blood Pressure 130/80 132/81 127/75 Pulse Oximetry 93 L 100 95 03/19/18 21:00 03/19/18 21:16 03/19/18 22:00 Temperature Pulse Rate 97 H 94 H 96 H Respiratory Rate 16 Blood Pressure 130/81 123/78 Pulse Oximetry 91 L 97 99 03/19/18 23:00 03/19/18 23:36 03/20/18 00:00 Temperature 98.2 F Pulse Rate 92 H 93 H 93 H Respiratory Rate 17 Blood Pressure 120/75 118/72 Pulse Oximetry 100 99 100 03/20/18 01:00 03/20/18 02:00 03/20/18 03:00 Temperature Pulse Rate 93 H 91 H 91 H Respiratory Rate Blood Pressure 129/77 128/77 138/83 Pulse Oximetry 90 L 100 100 03/20/18 03:33 03/20/18 04:00 03/20/18 05:00 Temperature 98.4 F Pulse Rate 88 95 H 108 H Respiratory Rate 16 Blood Pressure 115/81 118/76 Pulse Oximetry 100 100 93 L 03/20/18 06:00 03/20/18 07:00 03/20/18 08:55 Temperature Pulse Rate 104 H 101 H Respiratory Rate 28 H 31 H Blood Pressure 120/72 Pulse Oximetry 99 100 03/20/18 11:00 Temperature Pulse Rate Respiratory Rate 29 H Blood Pressure Pulse Oximetry Intake & Output 03/19/18 03/20/18 03/20/18 18:59 06:59 18:59 Intake Total 1312.5 / 1312.5 2062.5 / 2062.5 Output Total 3080 / 3080 950 / 950 Balance -1767.5 / -1767.5 1112.5 / 1112.5 Weight 79.2 kg Intake: IV 812.5 / 812.5 1662.5 / 1662.5 D5W/1/4 NS Inj 1,000 ML @ 50 1000 / 1000 mls/hr IV.CONT .Q20H [facility] Rx#: [id number] Avycaz Inj 2.5 GM In NS Inj 50 50 / 50 100 / 100 ML @ 25 mls/hr IV.SIG Q8H [facility] Rx#:[id number] Zyvox 600 mg Premix 300 ML @ 300 / 300 300 / 300 300 mls/hr IV.SIG Q12H [facility] Rx#: [id number] Mycamine Inj 150 MG In NS Inj 100 / 100 100 ML @ 100 mls/hr IV.SIG Q24H [facility] Rx#:[id number] KCl 40 mEq Premix Inj 40 meq In 100 / 100 100 ml @ 25 mls/hr IV.SIG UNSCH PRN Rx#:[id number] Vancomycin Inj 1,250 MG In NS 262.5 / 262.5 262.5 / 262.5 Inj 250 ML @ 250 mls/hr IV.SIG Q12H [facility] Rx#:[id number] Tube Feeding 0 / 0 0 / 0 Tube Irrigant 100 / 100 Water Bolus Amount 400 / 400 400 / 400 Output: Stool 80 / 80 Urine Amount (Catheter) 2950 / 2950 950 / 950 Indwelling Urethral Catheter 2950 / 2950 950 / 950 Chest Tube Drainage 50 / 50 Right Pleural 50 / 50 Other: Date of Last Bowel Movement 03/19/18 03/19/18 03/19/18 Result Diagrams: 03/20/18 04:40 03/20/18 09:00 Objective Remarks: GENERAL: Patient is 47 yo intubated follows some commands on right side. SKIN: Warm and dry. HEAD: Normocephalic. EYES: No scleral icterus. No injection or drainage. NECK: Supple, trachea midline. No JVD or lymphadenopathy. New trach site with no active bleeding some old blood around the trach site CARDIOVASCULAR: Regular rate and rhythm without murmurs, gallops, or rubs. RESPIRATORY: Breath sounds equal bilaterally. Basilar crackles and diminished breath sounds. Right pigtail catheter in place with minimal drainage GASTROINTESTINAL: Abdomen soft, non-tender, nondistended. + PEG tube MUSCULOSKELETAL: Trace bilateral lower edema. Neuro intubated, follows commands on right side, flaccid on the left side. More awake today Assessment and Plan - Assessment and Plan Plan: ASSESSMENT: Acute respiratory failure S/p PEA arrest HCAP, aspiration pneumonia/Klebsiella ESBL positive sputum/MRSA and fluid overload. Severe new sepsis, with fungemia most likely from infected Acuna catheter Acute kidney injury. Large right pleural effusion status post pigtail catheter History CVA with left-sided hemiparesis. 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 Bilateral foot osteomyelitis methicillin-resistant Staphylococcus aureus. Hyperlipidemia Anemia of chronic inflammation Seizure disorder NOS Hypertension PLAN: Neuro: off sedation monitor neuro status on levetiracetam 500 mg t.i.d. for a history of seizures. CT brain 03/11: No acute findings. EEG: Mild slowing Lethargic and encephalopathy most likely secondary to new sepsis Pulm: Continue with ventilatory support and maintain sats> 92%. On PRVC RR 15, TV 550, IT:0.9, PEEP:5, FIO2: 35%. Vent day 15 s/p Tracheostomy 03/19 Dr. Miller/Dr. Meadows Albuterol/ipratropium aerosols every 4 hours with albuterol aerosols every 2 hours as needed dyspnea, ICU vent bundle. Attempt up to 2 hour TP s/p diagnostic US guided thoracentesis 40ml removed ( transudative fluid ) CT 03/16 performed with moderate right pleural effusion. Right pigtail chest tube placed 03/18/2018 with 760 mL drained, now minimal output Removed chest tube today Bronch with BAL 03/06 showed secretions L>R suctioned to clear, BAL performed LLL. BAL: Kleb pneumonia ESBL, Proteus Mirabilis, MRSA. Recent sputum session with MD resistant Klebsiella CV: Monitor HR and BP and maintain MAP> 65 mmHg. Echo showed EF 60-65% : Monitor renal function, I's and O's , electrolytes replacement per protocol Renal function is improving with Cr: 1.4 today. Continue with Free water 200 every 6 monitor sodium level Furosemide 40 mg daily-reduce to 20 due to increase in creat GI: On lansoprazole 30 mg daily. Nepro with goal rate 550ml/hr per nutrition's recommendations-n.p.o. for tracheostomy KUB 03/13: No obstructing bowel gas pattern. ID: Continue with abx (Avycaz, micafungin, Zyvox) ID is following. 03/15 blood culture growing Nan glabrata IR removed Acuna 03/18/18 Sputum cx 03/13: MDR Klebsiella Urine cx: Nan Albicans 03/13 03/05 Sputum cx: ESBL Klebsiella BAL cx 03/06: Kleb pneumonia ESBL, Proteus Mirabilis, MRSA Wound culture growing MRSA from osteomyelitis site. Heme: Monitor CBC and coags. s/p transfusion 2u PRBC 03/05 heme occult negative Endo: SSI with Accu-Cheks for glycemic control. GI prophylaxis- On Prevacid DVT prophylaxis- SCD, heparin SQ held for anemia requiring blood transfusion. IV access: Left subclavian central line placed 03/18/2018. Acuna removed 2017 Patient is more critical now with severe sepsis worsening fever encephalopathy and fungemia. Micafungin was started yesterday. Source controlled with Acuna removal. Left subclavian central line placed for access. s/p Trach Level 3
--- NOTE | 2018-03-20 15:22 | P.PNPL ---
Subjective Interval history: 47 YO male with RF, on vent On Vent, fi02 45% Off sedation Opens eyes No N,V had percutaneous Trach On CPAP Physical Exam Vital signs: Vital Signs 03/19/18 16:00 03/19/18 16:05 03/19/18 16:06 Temperature 100.2 F H Pulse Rate 94 H 92 H Respiratory Rate 19 16 Blood Pressure 147/87 H Pulse Oximetry 60 L 99 03/19/18 17:00 03/19/18 18:00 03/19/18 19:00 Temperature Pulse Rate 92 H 91 H 93 H Respiratory Rate Blood Pressure 140/82 130/80 132/81 Pulse Oximetry 89 L 93 L 100 03/19/18 20:00 03/19/18 21:00 03/19/18 21:16 Temperature 98.2 F Pulse Rate 101 H 97 H 94 H Respiratory Rate 16 16 Blood Pressure 127/75 130/81 Pulse Oximetry 95 91 L 97 03/19/18 22:00 03/19/18 23:00 03/19/18 23:36 Temperature Pulse Rate 96 H 92 H 93 H Respiratory Rate 17 Blood Pressure 123/78 120/75 Pulse Oximetry 99 100 99 03/20/18 00:00 03/20/18 01:00 03/20/18 02:00 Temperature 98.2 F Pulse Rate 93 H 93 H 91 H Respiratory Rate Blood Pressure 118/72 129/77 128/77 Pulse Oximetry 100 90 L 100 03/20/18 03:00 03/20/18 03:33 03/20/18 04:00 Temperature 98.4 F Pulse Rate 91 H 88 95 H Respiratory Rate 16 Blood Pressure 138/83 115/81 Pulse Oximetry 100 100 100 03/20/18 05:00 03/20/18 06:00 03/20/18 07:00 Temperature Pulse Rate 108 H 104 H 101 H Respiratory Rate 28 H Blood Pressure 118/76 120/72 Pulse Oximetry 93 L 99 03/20/18 08:55 03/20/18 11:00 03/20/18 15:20 Temperature Pulse Rate 94 H Respiratory Rate 31 H 29 H 30 H Blood Pressure Pulse Oximetry 100 Intake & Output 03/19/18 03/20/18 03/20/18 18:59 06:59 18:59 Intake Total 1312.5 / 1312.5 2062.5 / 2062.5 Output Total 3080 / 3080 950 / 950 Balance -1767.5 / -1767.5 1112.5 / 1112.5 Weight 79.2 kg Intake: IV 812.5 / 812.5 1662.5 / 1662.5 D5W/1/4 NS Inj 1,000 ML @ 50 1000 / 1000 mls/hr IV.CONT .Q20H KRISTIE Rx#: [id number] Avycaz Inj 2.5 GM In NS Inj 50 50 / 50 100 / 100 ML @ 25 mls/hr IV.SIG Q8H KRISTIE Rx#:[id number] Zyvox 600 mg Premix 300 ML @ 300 / 300 300 / 300 300 mls/hr IV.SIG Q12H KRISTIE Rx#: [id number] Mycamine Inj 150 MG In NS Inj 100 / 100 100 ML @ 100 mls/hr IV.SIG Q24H KRISTIE Rx#:[id number] KCl 40 mEq Premix Inj 40 meq In 100 / 100 100 ml @ 25 mls/hr IV.SIG UNSCH PRN Rx#:[id number] Vancomycin Inj 1,250 MG In NS 262.5 / 262.5 262.5 / 262.5 Inj 250 ML @ 250 mls/hr IV.SIG Q12H KRISTIE Rx#:[id number] Tube Feeding 0 / 0 0 / 0 Tube Irrigant 100 / 100 Water Bolus Amount 400 / 400 400 / 400 Output: Stool 80 / 80 Urine Amount (Catheter) 2950 / 2950 950 / 950 Indwelling Urethral Catheter 2950 / 2950 950 / 950 Chest Tube Drainage 50 / 50 Right Pleural 50 / 50 Other: Date of Last Bowel Movement 03/19/18 03/19/18 03/19/18 GENERAL: WBWn On Vent SKIN: Warm and dry. HEAD: Normocephalic. EYES: No scleral icterus. No injection or drainage. NECK: Supple, trachea midline. No JVD or lymphadenopathy. has Trach CARDIOVASCULAR: Regular rate and rhythm without murmurs, gallops, or rubs. RESPIRATORY: Breath sounds equal bilaterally. No accessory muscle use. GASTROINTESTINAL: Abdomen soft, non-tender, nondistended. MUSCULOSKELETAL: No cyanosis, or edema. BACK: Nontender without obvious deformity. No CVA tenderness. - Urinary Catheter Management Indwelling Urethral Catheter Cath placed during this visit: yes Reason for continuing: Acute urinary retention Insertion date: 03/05/18 Insertion time: 08:00 Assessment and Plan - Plan IMPRESSION: 1. Bilateral lung infiltrates. 2. Small pleural effusion. 3. Osteomyelitis of both feet. 4. Diabetes mellitus. 5. Cerebrovascular accident with left-sided contracture. 6. VDRF 7. S/P cardiopulm arrest. PLAN: Vent Support Cont Abx per ID Aerosol nebs monitor Pl eff Monitor renal functions. Tube feeding covering for me
[2018-03-20] MEDS: Micafungin Inj 150 MG in Sodium Chlor 0.9% Inj 100 ML IV.SIG SCH (15:50)
[2018-03-20] MEDS ORDERED: Pharmacy Ordered Lab Info OTHER SCH (21:00)
[2018-03-21] MEDS: Insulin NovoLIN Regular Correctional Sugar Inj SQ SCH ×6 (00:29→20:54)
[2018-03-21] MEDS: Dextrose 5%/NaCl 0.225% Inj 1,000 ML IV.CONT SCH ×2 (01:03→06:33)
[2018-03-21] MEDS: Ceftazidime/Avibactam Inj 2.5 GM in Sodium Chlor 0.9% Inj 50 ML IV.SIG SCH ×3 (03:22→20:51)
[2018-03-21] MEDS: levETIRAcetam 500 MG Tablet G-TUBE SCH ×3 (08:26→17:19)
[2018-03-21] MEDS: Ascorbic Acid 500 MG Tablet G-TUBE SCH ×2 (08:26→20:55)
[2018-03-21] MEDS: Hypromellose 0.3% Opth Gel 10 GM Bottle EACH EYE SCH ×2 (08:26→20:56)
[2018-03-21] MEDS: Senna/Docusate Sodium 8.6/50 MG Tablet G-TUBE SCH ×2 (08:26→20:55)
--- NOTE | 2018-03-21 11:52 | P.PNONC ---
Subjective Interval history: Afebrile. Patient lying in bed with eyes closed. Remains on vent via trach. He opens his eyes and nods his head, however he appear more lethargic today. When asked if he could squeeze my hand with his right, he nods no. No obvious bleeding noted. Objective Vital Signs/Intake & Output: Vital Signs 03/20/18 12:00 03/20/18 13:00 03/20/18 14:00 Temperature Pulse Rate 95 H 96 H 96 H Respiratory Rate Blood Pressure 142/86 H 151/91 H 147/97 H Pulse Oximetry 100 100 100 03/20/18 15:00 03/20/18 15:20 03/20/18 16:00 Temperature Pulse Rate 95 H 94 H 96 H Respiratory Rate 31 H 30 H Blood Pressure 149/92 H 149/93 H Pulse Oximetry 100 100 03/20/18 17:00 03/20/18 18:00 03/20/18 19:00 Temperature Pulse Rate 96 H 96 H 95 H Respiratory Rate Blood Pressure 147/89 H 152/93 H 147/89 H Pulse Oximetry 100 100 100 03/20/18 20:00 03/20/18 20:56 03/20/18 21:00 Temperature 97.8 F Pulse Rate 96 H 100 H 101 H Respiratory Rate 14 Blood Pressure 136/86 132/86 Pulse Oximetry 100 100 99 03/20/18 22:00 03/20/18 23:00 03/21/18 00:00 Temperature 97.8 F Pulse Rate 100 H 93 H 94 H Respiratory Rate Blood Pressure 131/81 123/79 124/77 Pulse Oximetry 100 85 L 100 03/21/18 01:00 03/21/18 01:27 03/21/18 01:31 Temperature Pulse Rate 93 H 96 H Respiratory Rate 19 14 Blood Pressure 124/78 Pulse Oximetry 100 03/21/18 02:00 03/21/18 03:00 03/21/18 04:00 Temperature 98.8 F Pulse Rate 96 H 96 H 95 H Respiratory Rate Blood Pressure 120/75 113/75 113/78 Pulse Oximetry 100 100 100 03/21/18 04:52 03/21/18 05:00 03/21/18 06:00 Temperature Pulse Rate 94 H 96 H 93 H Respiratory Rate 13 Blood Pressure 128/75 117/74 Pulse Oximetry 100 100 99 03/21/18 09:07 Temperature Pulse Rate 96 H Respiratory Rate 25 H Blood Pressure Pulse Oximetry 96 Intake & Output 03/20/18 03/21/18 03/21/18 18:59 06:59 18:59 Intake Total 450 / 450 2971.5 / 2971.5 Output Total 4250 / 4250 625 / 625 Balance -3800 / -3800 2346.5 / 2346.5 Weight 77.8 kg Intake: IV 2112.5 / 2112.5 D5W/1/4 NS Inj 1,000 ML @ 50 1000 / 1000 mls/hr IV.CONT .Q20H ARTHUR Rx#: [id number] Avycaz Inj 2.5 GM In NS Inj 50 150 / 150 ML @ 25 mls/hr IV.SIG Q8H ARTHUR Rx#:[id number] Zyvox 600 mg Premix 300 ML @ 600 / 600 300 mls/hr IV.SIG Q12H ARTHUR Rx#: [id number] Mycamine Inj 150 MG In NS Inj 100 / 100 100 ML @ 100 mls/hr IV.SIG Q24H ARTHUR Rx#:[id number] Tube Feeding 50 / 50 259 / 259 Water Bolus Amount 400 / 400 600 / 600 Output: Stool 100 / 100 Urine Amount (Catheter) 4250 / 4250 525 / 525 Indwelling Urethral Catheter 4250 / 4250 525 / 525 Other: Date of Last Bowel Movement 03/19/18 03/20/18 Result Diagrams: 03/20/18 04:40 03/20/18 09:00 Laboratory Results: Laboratory Results - last 24 hr 03/20/18 03/20/18 03/20/18 09:00 12:48 15:48 Haptoglobin 303 H POC Glucose 198 H 191 H Random Vancomycin 03/20/18 03/21/18 03/21/18 20:09 00:07 03:45 Haptoglobin POC Glucose 161 H 161 H Random Vancomycin 33.9 03/21/18 03/21/18 03:47 11:35 Haptoglobin POC Glucose 132 H 185 H Random Vancomycin Culture Results: Microbiology 03/18/18 06:15 Aerobic Blood Culture - Preliminary Blood - Peripheral No growth in 3 days Anaerobic Blood Culture - Preliminary No growth in 3 days 03/18/18 04:20 Aerobic Blood Culture - Preliminary Blood - Peripheral gram negative rods Anaerobic Blood Culture - Preliminary No growth in 3 days 03/18/18 09:55 Gram Stain - Final Fluid - Pleural fluid Body Fluid Culture - Final No growth in 72 hours (aerobically and anaerobically) 03/06/18 15:00 Fungal Smear - Final Bronchial Washings - Left Lower Lobe No fungal elements seen Fungal Culture - Preliminary No growth in 2 weeks 03/06/18 15:00 Acid Fast Bacilli Smear - Final Bronchial Washings - Left Lower Lobe No acid fast bacilli seen Mycobacterial Culture - Preliminary No growth in 2 weeks 03/15/18 10:12 Aerobic Blood Culture - Final Blood - Peripheral No growth in 5 days Anaerobic Blood Culture - Final Nan glabrata 03/15/18 10:07 Aerobic Blood Culture - Final Blood - Peripheral No growth in 5 days Anaerobic Blood Culture - Final No growth in 5 days 03/18/18 09:55 Acid Fast Bacilli Smear - Final Fluid - Pleural fluid No acid fast bacilli seen 03/18/18 09:55 Fungal Smear - Final Fluid - Pleural fluid No fungal elements seen 03/13/18 11:10 Gram Stain - Final Sputum - Endotracheal Sputum Culture - Final Klebsiella pneumoniae Multidrug Resistant Medications: Active Medications Generic Name Dose Route Start Last Admin Trade Name Freq PRN Reason Stop Dose Admin Albuterol 1 ampul 03/17/18 12:00 03/21/18 09:06 Duoneb Neb (Arthur) NEB 1 ampul Q4HR NEB ARTHUR Administration Amlodipine Besylate 10 mg 02/20/18 09:00 03/05/18 09:12 Norvasc G-TUBE Not Given DAILY ARTHUR Artificial Tears 1 drops 03/17/18 21:00 03/21/18 08:26 Genteal Severe Dry Eye Relief 0.3% Opth Gel EACH EYE 1 drops BID ARTHUR Administration Ascorbic Acid 500 mg 02/19/18 08:13 03/21/18 08:26 Vitamin C G-TUBE 500 mg BID ARTHUR Administration Atorvastatin Calcium 10 mg 02/17/18 21:00 03/20/18 20:12 Lipitor G-TUBE 10 mg HS ARTHUR Administration Carvedilol 25 mg 02/17/18 13:00 03/05/18 09:11 Coreg G-TUBE Not Given BID ARTHUR Dextrose 50 ml 02/17/18 11:23 03/14/18 05:02 D50w Vial IV.PUSH 50 ml UNSCH PRN Administration PER HYPOGLYCEMIA PROTOCOL Enalaprilat 2.5 mg 02/17/18 11:25 02/21/18 01:34 Vasotec Inj IV.PUSH 2.5 mg Q6H PRN Administration SBP>160, DBP>90 Escitalopram Oxalate 15 mg 02/19/18 08:19 03/06/18 08:05 Lexapro G-TUBE 15 mg DAILY ARTHUR Administration Fluconazole 200 mg 03/16/18 09:00 03/21/18 08:26 Diflucan PO 200 mg DAILY ARTHUR Administration Furosemide 20 mg 03/20/18 13:45 03/21/18 08:27 Lasix Inj IV.PUSH 20 mg DAILY ARTHUR Administration Heparin Sodium (Porcine) 5,000 units 02/21/18 21:00 03/05/18 09:25 Heparin Inj SQ 5,000 units Q12HR ARTHUR Administration Hydralazine HCl 100 mg 02/19/18 08:19 03/05/18 09:11 Apresoline G-TUBE Not Given TID ARTHUR Fentanyl 2,500 mcg in 250 mls @ 5 mls/hr 03/05/18 08:30 03/11/18 09:00 Fentanyl 10 Mcg/Ml Premix Drip IV.SIG Infused TITRATE PRN Titration Per Protocol Protocol 50 MCG/HR Midazolam HCl 50 mg in 50 mls @ 2 mls/hr 03/05/18 23:44 03/06/18 16:04 Versed Inj IV.CONT Infused TITRATE PRN Titration Per Protocol Protocol 2 MG/HR Linezolid 300 mls @ 300 mls/hr 03/08/18 22:00 03/21/18 09:51 Zyvox 600 Mg Premix IV.SIG 300 mls/hr Q12H ARTHUR Administration Potassium Chloride 40 meq in 100 mls @ 25 mls/hr 03/13/18 14:59 03/17/18 15: 46 Kcl 40 Meq Premix Inj IV.SIG Infused Q2H PRN Infusion For Potassium 2.8 - 3.2 mEq/L Potassium Chloride 20 meq in 100 mls @ 50 mls/hr 03/13/18 14:59 03/14/18 20: 05 Kcl 20 Meq Premix Inj IV.SIG Infused Q2H PRN Infusion For Potassium 3.3 - 3.5 mEq/L Potassium Chloride 40 meq in 100 mls @ 25 mls/hr 03/13/18 14:59 03/19/18 12: 47 Kcl 40 Meq Premix Inj IV.SIG Infused UNSCH PRN Infusion For Potassium 3.3 - 3.5 mEq/L Potassium Chloride 20 meq in 100 mls @ 50 mls/hr 03/13/18 14:59 03/18/18 02: 14 Kcl 20 Meq Premix Inj IV.SIG Infused Q2H PRN Infusion For Potassium 2.8 - 3.2 mEq/L Dextrose/Sodium Chloride 1,000 mls @ 50 mls/hr 03/14/18 13:15 03/21/18 06:33 D5w/1/4 Ns Inj IV.CONT Not Given .Q20H ARTHUR Ceftazidime/Avibactam 2.5 gm/ 50 mls @ 25 mls/hr 03/15/18 20:00 03/21/18 06: 33 Sodium Chloride IV.SIG Infused Q8H ARTHUR Infusion Micafungin Sodium 150 mg/ 100 mls @ 100 mls/hr 03/17/18 14:00 03/20/18 19:32 Sodium Chloride IV.SIG Infused Q24H ARTHUR Infusion Vancomycin HCl 1,250 mg/ 262.5 mls @ 250 mls/hr 03/18/18 21:00 03/20/18 19:33 Sodium Chloride IV.SIG Infused Q12H ARTHUR Infusion Insulin Human Regular 0 units 03/05/18 12:00 03/21/18 08:29 Novolin R Correctional Sugar Inj SQ Not Given Q4HR [facility] Protocol Lansoprazole 30 mg 02/20/18 09:00 03/21/18 08:28 Prevacid Solutab NG/OG 30 mg DAILY ARTHUR Administration Levetiracetam 500 mg 02/19/18 08:19 03/21/18 08:26 Keppra G-TUBE 500 mg TID ARTHUR Administration Ondansetron HCl 4 mg 02/17/18 06:46 03/14/18 20:06 Zofran Inj IV.PUSH 4 mg Q6H PRN Administration NAUSEA OR VOMITING Potassium Bicarb/Potassium Chloride 50 meq 03/13/18 14:59 03/19/18 20:29 K-Lyte Cl Eff PO 50 meq UNSCH PRN Administration For Potassium 3.3 - 3.5 mEq/L Senna/Docusate Sodium 1 tab 02/19/18 08:19 03/21/18 08:26 Jessie-Colace G-TUBE 1 tab BID ARTHUR Administration Sterile Water 200 ml 03/15/18 12:00 03/21/18 05:17 Free Water G-TUBE 200 ml Q6HR ARTHUR Administration Temazepam 15 mg 02/17/18 06:46 03/01/18 21:33 Restoril PO 15 mg HS PRN Administration INSOMNIA Objective Remarks: GENERAL: Chronically ill-appearing male patient, intubated, in no acute distress. + Lethargic. Answers some questions. SKIN: Warm and dry. HEAD: Normocephalic. EYES: No scleral icterus. No injection or drainage. NECK: Supple, trachea midline. +Trach. CARDIOVASCULAR: Regular rate and rhythm without murmurs. RESPIRATORY: + Vent via trach. Breath sounds equal bilaterally. No accessory muscle use. GASTROINTESTINAL: Abdomen soft, non-tender, nondistended. EXTREMITIES: No cyanosis, or edema. Support boots to BLE. MUSCULOSKELETAL: Decreased muscle tone. NEUROLOGICAL: + Lethargic. Answers some questions with head nodding. Assessment/Plan (1) End stage renal disease Code(s): N18.6 - End stage renal disease Status: Acute (2) GI bleed Code(s): K92.2 - Gastrointestinal hemorrhage, unspecified Status: Acute (3) Anemia Code(s): D64.9 - Anemia, unspecified Status: Acute (4) Osteomyelitis Code(s): M86.9 - Osteomyelitis, unspecified Status: Acute (5) Diabetes Code(s): E11.9 - Type 2 diabetes mellitus without complications Status: Acute (6) Anemia of chronic disorder Code(s): D63.8 - Anemia in other chronic diseases classified elsewhere Status : Acute (7) Acute on chronic anemia Code(s): D64.9 - Anemia, unspecified Status: Acute (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 He is on a ventilator. He has undergone cardiac arrest. Status post ACLS protocol. He was successfully resuscitated. He has respiratory failure. He has osteomyelitis of the foot. He also has sepsis and pneumonia. He has candiduria. He is currently on multiple antibiotics. He has a history of stroke and chronic anemia. He developed acute on chronic anemia. He has acute on chronic kidney disease. During the course of his workup serum protein electrophoresis and immunoelectrophoresis was performed. These tests were interpreted as abnormal and hematology has been consulted to make further recommendations: Plan: 1. Serum protein electrophoresis results consistent with inflammation/reactive process. Immunoelectrophoresis, no monoclonal protein identified. 2. Anemia, likely secondary to inflammation. Recommendations to keep hemoglobin greater than 7.5. No transfusion warranted today. Ferritin was normal at 463 on 03/13/2018, repeat iron studies on 03/20/2018 showed iron of 17, TIBC 199 and percentage saturation 8.6. Will repeat the ferritin level. 3. Sepsis, pneumonia and osteomyelitis. 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 Blood cultures from 03/18 are growing gram-negative bacteria. 4. Adenopathy noted on CT scan. pleural fluid was inconclusive for malignant cells. Markedly reactive mesothelial cells versus carcinoma. Insufficient material is present in the cell block for further testing. This could be secondary to inflammation, however we will repeat a CT scan next week to follow- up on the lymphadenopathy. - Attending Statement Patient seen with nurse practitioner Miya Mcgovern and agree with the assessment and plan.
[2018-03-21] MEDS: Micafungin Inj 150 MG in Sodium Chlor 0.9% Inj 100 ML IV.SIG SCH (13:04)
--- NOTE | 2018-03-21 15:11 | P.PNCC ---
Subjective Subjective Remarks/Hospital Course: The patient is a 47-year-old male with a past medical history of a CVA with left -sided hemiparesis, hypertension, diabetes mellitus, anemia of chronic disease, CHF, dysphagia, status post PEG tube placement, depression, nonverbal, who was admitted under the hospitalist service on 02/17/2018 for acute on chronic anemia. In addition, the patient has a history of bilateral foot osteomyelitis. During his hospital course, he had worsening renal function with a creatinine of 1.74 this morning from 1.1 on admission. In addition, the patient was found hypernatremic with a sodium level of 156 and hyperkalemic with a potassium level 5.3. A halicat was called 2 days ago for shortness of breath, and this morning the patient had a PEA arrest. ACLS protocol was initiated and the patient received epinephrine x3, 2 amps of bicarbonate, and 1 amp of calcium and was subsequently intubated by myself with an ET tube 8.0 cm size. A chest x-ray post intubation showed diffuse bilateral pulmonary infiltrates. He was on NS at 100 mL an hour for the past 2 days. Also, he had a venous Doppler ultrasound on 02/18/2018, which showed no evidence of a DVT; however, it showed a pseudoaneurysm at the distal brachial artery measuring 3.6 x 2.2 x 2.2 cm, predominantly thrombosed; however, there was a small patent component with biphasic flow measuring 6 x 9 mm. A single lumen right PICC line was placed by interventional radiology on 02/22/2018. The patient also had an arterial Doppler ultrasound which was within normal. He was seen by Dr. Jensen from vascular surgery. In addition, the patient has been followed by podiatry and infectious disease. ABG postcode showed acute hypercapnic respiratory acidosis with a pH of 7.11, CO2 of 83, PaO2 of 99, bicarbonate 25, saturation 92% on PRVC mode, rate of 16, tidal volume 500, PEEP of 5, 100% FiO2, and I time 0.9. 03/06 Patient is sedated with Versed and Fenantl drips Levophed started overnight on 4 mics. Afebrile. Renal function worse this morning with C: 1.93 from 1.75 s/p transfusion 2U PRBC yesterday . 03/07: Remains sedated, arousable, orally intubated on mechanical ventilation. Sputum growing ESBL Klebsiella. 03/08 Patient remains intubated and Sedated with Fentanyl drip. Had T: 101 last night.Had an episode of hypoglycemia last night given D50 and placed on D10. 03/09 Patient remains sedated and intubated. T: 100 at 4 am. 03/10 Patient is intubated, sedated T:99.9. renal function is improving with Cr: 2.08 from 2.47 03/11 Patient remains intubated and sedated with Fentanyl drip. Afebrile. 03/12 Patient is off sedation intubated does not follow commands, afebrile. CT brain yesterday no acute findings. 03/13 Patient remains off sedation doesn't follow commands, T:100.3 last night. Renal function is improving with Cr: 1.47 from 1.65 03/14 Remains intubated, afebrile. TF om hold for emesis. Afebrile. 03/15 Patient remains intubated T:100.0 last night. 03/16: Patient remains intubated, sedated appears to follow some commands on sedation hold. Continues to have low-grade fever. Failed CPAP trial today due to severe tachypnea and low tidal volume. Chest x-ray shows worsening bilateral infiltrates/effusion. Will check CT to evaluate for infiltrate versus effusion. Also will increase Lasix to 40 mg every 12. Subjective 03/17: Remains intubated. T-max 100F. Opens eyes on sedation vacation. Failed CPAP 3 days due to apnea/tachypnea and low tidal problems. 03/18: Remains intubated off sedation. Now with worsening sepsis fever 100.9 T- max, candidemia on cultures from 03/15/2018. Growing yeast. Most likely source Acuna catheter on the right side. I have placed a left subclavian central line. IR to remove the Acuna catheter GILDA discussed with Dr. Paul. Continues to fail CPAP trial most likely needs tracheostomy if he fails to be in after draining the right pleural effusion 03/19: Failed CPAP again today due to low tidal volumes and tachypnea. Right chest tube placed yesterday with some 60 mL hemorrhagic effusion. Cultures remain negative today. Fungal blood culture with Nan glabrata, Acuna catheter removed yesterday after the left subclavian line was placed 03/20: Patient is status post trach yesterday currently more awake following commands on the right side. Minimal dose from the trach site has stopped. Ophthalmology consult appreciated no evidence of eye involvement from fungemia 03/21: Patient tolerated approximately 2 hours of T piece yesterday. Currently remains hemodynamically stable tolerating CPAP. Blood culture growing gram- negative serina from 03/18/18. Currently on Avycaz micafungin and Zyvox. We will start Levaquin to cover for stenotrophomonas ID following Objective Vital Signs / I&O: Vital Signs 03/20/18 15:20 03/20/18 16:00 03/20/18 17:00 Temperature Pulse Rate 94 H 96 H 96 H Respiratory Rate 30 H Blood Pressure 149/93 H 147/89 H Pulse Oximetry 100 100 03/20/18 18:00 03/20/18 19:00 03/20/18 20:00 Temperature 97.8 F Pulse Rate 96 H 95 H 96 H Respiratory Rate Blood Pressure 152/93 H 147/89 H 136/86 Pulse Oximetry 100 100 100 03/20/18 20:56 03/20/18 21:00 03/20/18 22:00 Temperature Pulse Rate 100 H 101 H 100 H Respiratory Rate 14 Blood Pressure 132/86 131/81 Pulse Oximetry 100 99 100 03/20/18 23:00 03/21/18 00:00 03/21/18 01:00 Temperature 97.8 F Pulse Rate 93 H 94 H 93 H Respiratory Rate Blood Pressure 123/79 124/77 124/78 Pulse Oximetry 85 L 100 100 03/21/18 01:27 03/21/18 01:31 03/21/18 02:00 Temperature Pulse Rate 96 H 96 H Respiratory Rate 19 14 Blood Pressure 120/75 Pulse Oximetry 100 03/21/18 03:00 03/21/18 04:00 03/21/18 04:52 Temperature 98.8 F Pulse Rate 96 H 95 H 94 H Respiratory Rate 13 Blood Pressure 113/75 113/78 Pulse Oximetry 100 100 100 03/21/18 05:00 03/21/18 06:00 03/21/18 09:07 Temperature Pulse Rate 96 H 93 H 96 H Respiratory Rate 25 H Blood Pressure 128/75 117/74 Pulse Oximetry 100 99 96 03/21/18 11:48 03/21/18 11:50 Temperature Pulse Rate 93 H Respiratory Rate 25 H 25 H Blood Pressure Pulse Oximetry 100 Intake & Output 03/20/18 03/21/18 03/21/18 18:59 06:59 18:59 Intake Total 450 / 450 2971.5 / 2971.5 Output Total 4250 / 4250 625 / 625 Balance -3800 / -3800 2346.5 / 2346.5 Weight 77.8 kg Intake: IV 2112.5 / 2112.5 D5W/1/4 NS Inj 1,000 ML @ 50 1000 / 1000 mls/hr IV.CONT .Q20H KRISTIE Rx#: [id number] Avycaz Inj 2.5 GM In NS Inj 50 150 / 150 ML @ 25 mls/hr IV.SIG Q8H KRISTIE Rx#:[id number] Zyvox 600 mg Premix 300 ML @ 600 / 600 300 mls/hr IV.SIG Q12H KRISTIE Rx#: [id number] Mycamine Inj 150 MG In NS Inj 100 / 100 100 ML @ 100 mls/hr IV.SIG Q24H KRISTIE Rx#:[id number] Tube Feeding 50 / 50 259 / 259 Water Bolus Amount 400 / 400 600 / 600 Output: Stool 100 / 100 Urine Amount (Catheter) 4250 / 4250 525 / 525 Indwelling Urethral Catheter 4250 / 4250 525 / 525 Other: Date of Last Bowel Movement 03/19/18 03/20/18 Result Diagrams: 03/20/18 04:40 03/20/18 09:00 Objective Remarks: GENERAL: Patient is 47 yo intubated follows commands on right side. SKIN: Warm and dry. HEAD: Normocephalic. EYES: No scleral icterus. No injection or drainage. NECK: Supple, trachea midline. No JVD or lymphadenopathy. New trach site with no active bleeding old blood around the trach site CARDIOVASCULAR: Regular rate and rhythm without murmurs, gallops, or rubs. RESPIRATORY: Breath sounds equal bilaterally. Basilar crackles and diminished breath sounds. GASTROINTESTINAL: Abdomen soft, non-tender, nondistended. + PEG tube MUSCULOSKELETAL: Trace bilateral lower edema. Neuro Off all sedation, follows commands on right side, flaccid on the left side. More awake today Assessment and Plan - Assessment and Plan Plan: ASSESSMENT: Acute respiratory failure S/p PEA arrest HCAP, aspiration pneumonia/Klebsiella ESBL positive sputum/MRSA Gram-negative bacteremia Fungemia, likely from infected Acuna catheter Sepsis Acute kidney injury. Large right pleural effusion status post pigtail catheter History CVA with left-sided hemiparesis. 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 Bilateral foot osteomyelitis methicillin-resistant Staphylococcus aureus. Hyperlipidemia Anemia of chronic inflammation Seizure disorder NOS Hypertension PLAN: Neuro: off sedation monitor neuro status on levetiracetam 500 mg t.i.d. for a history of seizures. CT brain 03/11: No acute findings. EEG: Mild slowing Pulm: s/p Tracheostomy 03/19 Dr. Miller/Dr. Meadows. Increase T piece time to 6-8 hours, CPAP at night Albuterol/ipratropium aerosols every 4 hours with albuterol aerosols every 2 hours as needed dyspnea, ICU vent bundle. s/p diagnostic US guided thoracentesis 40ml removed ( transudative fluid ) CT 03/16 performed with moderate right pleural effusion. Right pigtail chest tube placed 03/18/2018 with 760 mL drained, now removed Bronch with BAL 03/06 showed secretions L>R suctioned to clear, BAL performed LLL. BAL: Kleb pneumonia ESBL, Proteus Mirabilis, MRSA. Recent sputum session with MD resistant Klebsiella CV: Monitor HR and BP and maintain MAP> 65 mmHg. Echo showed EF 60-65% : Monitor renal function, I's and O's , electrolytes replacement per protocol Renal function stable. Continue with Free water 200 every 6 monitor sodium level Furosemide 40 mg daily-reduced to 20 due to increase in creat GI: On lansoprazole 30 mg daily. Nepro with goal rate 550ml/hr per nutrition's recommendations KUB 03/13: No obstructing bowel gas pattern. ID: Continue with abx (Avycaz, micafungin, Zyvox) ID is following. Blood culture from 03/18/2018 showing gram-negative rods, add Levaquin to cover for stenotrophomonas and additional gram-negative coverage New line placed 03/18/18, culture from same day. Unlikely to be new line related, but likely related to Acuna catheter 03/15 blood culture growing Nan glabrata IR removed Acuna 03/18/18 Sputum cx 03/13: MDR Klebsiella Urine cx: Nan Albicans 03/13 03/05 Sputum cx: ESBL Klebsiella BAL cx 03/06: Kleb pneumonia ESBL, Proteus Mirabilis, MRSA Wound culture growing MRSA from osteomyelitis site. Heme: Monitor CBC and coags. s/p transfusion 2u PRBC 03/05 heme occult negative Endo: SSI with Accu-Cheks for glycemic control. GI prophylaxis- On Prevacid DVT prophylaxis- SCD, heparin SQ held for anemia requiring blood transfusion. IV access: Left subclavian central line placed 03/18/2018. Acuna removed 2017 Patient is critical now with severe sepsis worsening fever encephalopathy and fungemia. Micafungin was started yesterday. Source controlled with Acuna removal. Left subclavian central line placed for access. s/p Trach Level 3
--- NOTE | 2018-03-21 18:15 | P.PN ---
Subjective Interval history: He is on a T bar 35 % and tolerating it. Awake and breathing shallow. has GM neg bacteria on Bl culture Physical Exam Vital signs: Vital Signs 03/20/18 19:00 03/20/18 20:00 03/20/18 20:56 Temperature 97.8 F Pulse Rate 95 H 96 H 100 H Respiratory Rate 14 Blood Pressure 147/89 H 136/86 Pulse Oximetry 100 100 100 03/20/18 21:00 03/20/18 22:00 03/20/18 23:00 Temperature Pulse Rate 101 H 100 H 93 H Respiratory Rate Blood Pressure 132/86 131/81 123/79 Pulse Oximetry 99 100 85 L 03/21/18 00:00 03/21/18 01:00 03/21/18 01:27 Temperature 97.8 F Pulse Rate 94 H 93 H Respiratory Rate 19 Blood Pressure 124/77 124/78 Pulse Oximetry 100 100 03/21/18 01:31 03/21/18 02:00 03/21/18 03:00 Temperature Pulse Rate 96 H 96 H 96 H Respiratory Rate 14 Blood Pressure 120/75 113/75 Pulse Oximetry 100 100 03/21/18 04:00 03/21/18 04:52 03/21/18 05:00 Temperature 98.8 F Pulse Rate 95 H 94 H 96 H Respiratory Rate 13 Blood Pressure 113/78 128/75 Pulse Oximetry 100 100 100 03/21/18 06:00 03/21/18 08:00 03/21/18 09:00 Temperature 97.9 F Pulse Rate 93 H 86 97 H Respiratory Rate 24 22 Blood Pressure 117/74 125/87 117/75 Pulse Oximetry 99 99 100 03/21/18 09:07 03/21/18 10:00 03/21/18 11:00 Temperature Pulse Rate 96 H 89 90 Respiratory Rate 25 H 20 Blood Pressure 128/75 129/81 Pulse Oximetry 96 100 99 03/21/18 11:48 03/21/18 11:50 03/21/18 12:00 Temperature 98 F Pulse Rate 93 H 91 H Respiratory Rate 25 H 25 H 22 Blood Pressure 124/76 Pulse Oximetry 100 100 03/21/18 13:00 03/21/18 14:00 03/21/18 16:00 Temperature 97.9 F Pulse Rate 92 H 89 99 H Respiratory Rate Blood Pressure 126/77 113/71 123/78 Pulse Oximetry 99 100 98 Intake & Output 03/20/18 03/21/18 03/21/18 18:59 06:59 18:59 Intake Total 450 / 450 2971.5 / 2971.5 771 / 771 Output Total 4250 / 4250 625 / 625 2150 / 2150 Balance -3800 / -3800 2346.5 / 2346.5 -1379 / -1379 Weight 77.8 kg Intake: IV 2112.5 / 2112.5 50 / 50 D5W/1/4 NS Inj 1,000 ML @ 50 1000 / 1000 mls/hr IV.CONT .Q20H KRISTIE Rx#: [id number] Avycaz Inj 2.5 GM In NS Inj 50 150 / 150 50 / 50 ML @ 25 mls/hr IV.SIG Q8H KRISTIE Rx#:[id number] Zyvox 600 mg Premix 300 ML @ 600 / 600 300 mls/hr IV.SIG Q12H KRISTIE Rx#: [id number] Mycamine Inj 150 MG In NS Inj 100 / 100 100 ML @ 100 mls/hr IV.SIG Q24H KRISTIE Rx#:[id number] Tube Feeding 50 / 50 259 / 259 321 / 321 Water Bolus Amount 400 / 400 600 / 600 400 / 400 Output: Stool 100 / 100 200 / 200 Urine Amount (Catheter) 4250 / 4250 525 / 525 1949 Indwelling Urethral Catheter 4250 / 4250 525 / 525 1949 Other: Date of Last Bowel Movement 03/19/18 03/20/18 03/21/18 Narrative: GENERAL: Mid aged A/A Male on a T bar with trach SKIN: cool and dry. HEAD: Normocephalic. EYES: No scleral icterus. No injection or drainage. NECK: Supple, trachea midline. No JVD or lymphadenopathy. CARDIOVASCULAR: Regular rate and rhythm without murmurs, gallops, or rubs. RESPIRATORY: Breath sounds equal bilaterally. few coarse Wheezes. Thoracostomy tube. GASTROINTESTINAL: Abdomen soft, non-tender, nondistended. + PEG tube MUSCULOSKELETAL: No cyanosis, or edema. Neuro: lethargic. - Urinary Catheter Management Indwelling Urethral Catheter Cath placed during this visit: yes Reason for continuing: Acute urinary retention Insertion date: 03/05/18 Insertion time: 08:00 Results - Labs CBC & Chem 7: 03/20/18 04:40 03/20/18 09:00 Laboratory Results - last 24 hr 03/20/18 03/21/18 03/21/18 20:09 00:07 03:45 POC Glucose 161 H 161 H Ferritin Random Vancomycin 33.9 03/21/18 03/21/18 03/21/18 03:45 03:47 11:35 POC Glucose 132 H 185 H Ferritin 671 H Random Vancomycin 03/21/18 16:11 POC Glucose 150 H Ferritin Random Vancomycin Microbiology 03/18/18 06:15 Blood - Peripheral Aerobic Blood Culture - Preliminary No growth in 3 days 03/18/18 06:15 Blood - Peripheral Anaerobic Blood Culture - Preliminary No growth in 3 days 03/18/18 04:20 Blood - Peripheral Aerobic Blood Culture - Preliminary gram negative rods 03/18/18 04:20 Blood - Peripheral Anaerobic Blood Culture - Preliminary No growth in 3 days 03/18/18 09:55 Fluid - Pleural fluid Gram Stain - Final 03/18/18 09:55 Fluid - Pleural fluid Body Fluid Culture - Final No growth in 72 hours (aerobically and anaerobically ) Assessment and Plan - Assessment (1) Gram negative sepsis Code(s): A41.50 - Gram-negative sepsis, unspecified Status: Acute (2) Tracheostomy in place Code(s): Z93.0 - Tracheostomy status Status: Acute (3) End stage renal disease Code(s): N18.6 - End stage renal disease Status: Acute (4) GI bleed Code(s): K92.2 - Gastrointestinal hemorrhage, unspecified Status: Acute (5) Anemia Code(s): D64.9 - Anemia, unspecified Status: Acute (6) Osteomyelitis Code(s): M86.9 - Osteomyelitis, unspecified Status: Acute (7) Diabetes Code(s): E11.9 - Type 2 diabetes mellitus without complications Status: Acute (8) Anemia of chronic disorder Code(s): D63.8 - Anemia in other chronic diseases classified elsewhere Status : Acute (9) Acute on chronic anemia Code(s): D64.9 - Anemia, unspecified Status: Acute (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 Code(s): I72.1 - Aneurysm of artery of upper extremity Status: Acute (11) Osteomyelitis of ankle and foot Code(s): M86.9 - Osteomyelitis, unspecified Status: Acute (12) Acute kidney injury Code(s): N17.9 - Acute kidney failure, unspecified Status: Acute (13) Hypernatremia Code(s): E87.0 - Hyperosmolality and hypernatremia Status: Acute (14) Fungemia Code(s): B49 - Unspecified mycosis Status: Acute (15) Nonproliferative diabetic retinopathy of both eyes Code(s): E11.3293 - Type 2 diabetes mellitus with mild nonproliferative diabetic retinopathy without macular edema, bilateral Status: Acute (16) Gastrostomy tube in place Code(s): Z93.1 - Gastrostomy status Status: Acute - Plan 1. T bar at 28 % FIo2 2. Trach lavage suction 3. Antibiotics per ID 4. Duonebs qid. 5. PT evaluation 6. CPAP 11/17 at HS if he desats <90
--- NOTE | 2018-03-21 20:46 | P.PNID ---
Subjective Remarks: off pressors, on vent FiO2 45% Febrile secretions heavy on Tpiece Growing C glabrata 2/2 sets cont to haver heavy diarrhea + central line Permmacath removed sp repeat thoracocenthesis now growing a GNB from blood clx - new issue Sputum with carbapenem R and ESBL+ Kleb growing ESBL, MRSA and Protes S to Ertapenem from BAL pleural fluid negative @ 72 hrs Nan in the urine C Antibiotics: avycaz zyvox micafungin fluconazol levaquine Lines: HIchmann R chest placen on 03/05 Allergies/Adverse Reactions: Allergies No Known Allergies Allergy (Unknown, Uncoded 01/06/18 21:04) Objective Vital Signs 03/20/18 20:56 03/20/18 21:00 03/20/18 22:00 Temperature Pulse Rate 100 H 101 H 100 H Respiratory Rate 14 Blood Pressure 132/86 131/81 Pulse Oximetry 100 99 100 03/20/18 23:00 03/21/18 00:00 03/21/18 01:00 Temperature 97.8 F Pulse Rate 93 H 94 H 93 H Respiratory Rate Blood Pressure 123/79 124/77 124/78 Pulse Oximetry 85 L 100 100 03/21/18 01:27 03/21/18 01:31 03/21/18 02:00 Temperature Pulse Rate 96 H 96 H Respiratory Rate 19 14 Blood Pressure 120/75 Pulse Oximetry 100 03/21/18 03:00 03/21/18 04:00 03/21/18 04:52 Temperature 98.8 F Pulse Rate 96 H 95 H 94 H Respiratory Rate 13 Blood Pressure 113/75 113/78 Pulse Oximetry 100 100 100 03/21/18 05:00 03/21/18 06:00 03/21/18 08:00 Temperature 97.9 F Pulse Rate 96 H 93 H 86 Respiratory Rate 24 Blood Pressure 128/75 117/74 125/87 Pulse Oximetry 100 99 99 03/21/18 09:00 03/21/18 09:07 03/21/18 10:00 Temperature Pulse Rate 97 H 96 H 89 Respiratory Rate 22 25 H 20 Blood Pressure 117/75 128/75 Pulse Oximetry 100 96 100 03/21/18 11:00 03/21/18 11:48 03/21/18 11:50 Temperature Pulse Rate 90 93 H Respiratory Rate 25 H 25 H Blood Pressure 129/81 Pulse Oximetry 99 100 03/21/18 12:00 03/21/18 13:00 03/21/18 14:00 Temperature 98 F Pulse Rate 91 H 92 H 89 Respiratory Rate 22 Blood Pressure 124/76 126/77 113/71 Pulse Oximetry 100 99 100 03/21/18 16:00 03/21/18 18:00 Temperature 97.9 F Pulse Rate 99 H 90 Respiratory Rate Blood Pressure 123/78 Pulse Oximetry 98 Intake & Output 03/21/18 03/21/18 03/22/18 06:59 18:59 06:59 Intake Total 2971.5 / 2971.5 771 / 771 Output Total 625 / 625 2150 / 2150 Balance 2346.5 / 2346.5 -1379 / -1379 Weight 77.8 kg Intake: IV 2112.5 / 2112.5 50 / 50 D5W/1/4 NS Inj 1,000 ML @ 50 1000 / 1000 mls/hr IV.CONT .Q20H KRISTIE Rx#: [id number] Avycaz Inj 2.5 GM In NS Inj 50 150 / 150 50 / 50 ML @ 25 mls/hr IV.SIG Q8H KRISTIE Rx#:[id number] Zyvox 600 mg Premix 300 ML @ 600 / 600 300 mls/hr IV.SIG Q12H KRISTIE Rx#: [id number] Mycamine Inj 150 MG In NS Inj 100 / 100 100 ML @ 100 mls/hr IV.SIG Q24H KRISTIE Rx#:[id number] Oral 0 / 0 Tube Feeding 259 / 259 321 / 321 Water Bolus Amount 600 / 600 400 / 400 Output: Stool 100 / 100 200 / 200 Urine Amount (Catheter) 525 / 525 1949 / 1949 Indwelling Urethral Catheter 525 / 525 1949 / 1949 Other: Date of Last Bowel Movement 03/20/18 03/20/18 03/18/18 06:15 Blood - Peripheral Aerobic Blood Culture - Preliminary No growth in 3 days 03/18/18 06:15 Blood - Peripheral Anaerobic Blood Culture - Preliminary No growth in 3 days 03/18/18 04:20 Blood - Peripheral Aerobic Blood Culture - Preliminary gram negative rods 03/18/18 04:20 Blood - Peripheral Anaerobic Blood Culture - Preliminary No growth in 3 days 03/18/18 09:55 Fluid - Pleural fluid Gram Stain - Final 03/18/18 09:55 Fluid - Pleural fluid Body Fluid Culture - Final No growth in 72 hours (aerobically and anaerobically ) 03/06/18 15:00 Bronchial Washings - Left Lower Lobe Fungal Smear - Final No fungal elements seen 03/06/18 15:00 Bronchial Washings - Left Lower Lobe Fungal Culture - Preliminary No growth in 2 weeks 03/06/18 15:00 Bronchial Washings - Left Lower Lobe Acid Fast Bacilli Smear - Final No acid fast bacilli seen 03/06/18 15:00 Bronchial Washings - Left Lower Lobe Mycobacterial Culture - Preliminary No growth in 2 weeks 03/15/18 10:12 Blood - Peripheral Aerobic Blood Culture - Final No growth in 5 days 03/15/18 10:12 Blood - Peripheral Anaerobic Blood Culture - Final Nan glabrata 03/15/18 10:07 Blood - Peripheral Aerobic Blood Culture - Final No growth in 5 days 03/15/18 10:07 Blood - Peripheral Anaerobic Blood Culture - Final No growth in 5 days 03/18/18 09:55 Fluid - Pleural fluid Acid Fast Bacilli Smear - Final No acid fast bacilli seen 03/18/18 09:55 Fluid - Pleural fluid Mycobacterial Culture - Pending 03/18/18 09:55 Fluid - Pleural fluid Fungal Smear - Final No fungal elements seen 03/18/18 09:55 Fluid - Pleural fluid Fungal Culture - Pending Lab - Hematology Results 03/20/18 03/20/18 03/20/18 04:40 04:40 08:45 WBC 7.3 RBC 2.57 L Hgb 7.6 L Hct 23.4 L MCV 91.0 MCH 29.5 MCHC 32.5 RDW 15.2 Plt Count 218 MPV 8.1 Retic Count 2.0 Absolute Retic 50.7 Haptoglobin Cancelled 03/20/18 09:00 WBC RBC Hgb Hct MCV MCH MCHC RDW Plt Count MPV Retic Count Absolute Retic Haptoglobin 303 H Lab - Chemistry Results 03/20/18 03/20/18 03/20/18 00:15 04:06 08:45 Sodium Potassium Chloride Carbon Dioxide Anion Gap BUN Creatinine Estimated GFR POC Glucose 141 H 126 H Random Glucose Calcium Iron Cancelled TIBC Cancelled Iron & TIBC Cancelled % Saturation Cancelled Ferritin Total Bilirubin AST ALT Alkaline Phosphatase Lactate Dehydrogenase Cancelled Total Protein Albumin 03/20/18 03/20/18 03/20/18 09:00 09:12 12:48 Sodium 142 Potassium 3.7 Chloride 106 Carbon Dioxide 25.7 Anion Gap 10 BUN 14 Creatinine 1.38 H Estimated GFR 67 L POC Glucose 153 H 198 H Random Glucose 127 H Calcium 8.5 Iron 17 L TIBC 199 L Iron & TIBC % Saturation 8.6 L Ferritin Total Bilirubin 0.4 AST 25 ALT 24 Alkaline Phosphatase 119 H Lactate Dehydrogenase 312 H Total Protein 7.5 Albumin 2.0 L 03/20/18 03/20/18 03/21/18 15:48 20:09 00:07 Sodium Potassium Chloride Carbon Dioxide Anion Gap BUN Creatinine Estimated GFR POC Glucose 191 H 161 H 161 H Random Glucose Calcium Iron TIBC Iron & TIBC % Saturation Ferritin Total Bilirubin AST ALT Alkaline Phosphatase Lactate Dehydrogenase Total Protein Albumin 03/21/18 03/21/18 03/21/18 03:45 03:47 11:35 Sodium Potassium Chloride Carbon Dioxide Anion Gap BUN Creatinine Estimated GFR POC Glucose 132 H 185 H Random Glucose Calcium Iron TIBC Iron & TIBC % Saturation Ferritin 671 H Total Bilirubin AST ALT Alkaline Phosphatase Lactate Dehydrogenase Total Protein Albumin 03/21/18 16:11 Sodium Potassium Chloride Carbon Dioxide Anion Gap BUN Creatinine Estimated GFR POC Glucose 150 H Random Glucose Calcium Iron TIBC Iron & TIBC % Saturation Ferritin Total Bilirubin AST ALT Alkaline Phosphatase Lactate Dehydrogenase Total Protein Albumin Imaging: ITS Impressions Abdomen/Pelvis CT 02/17/18 00:00 CONCLUSION: 1. Small bilateral pleural effusions and bilateral lower lung opacity again seen. 2. Mild splenomegaly again seen. 3. Gastrostomy tube in place. 4. No evidence of bowel dilatation. 5. Heterotopic ossification about the left hip again seen. 6. Calcified adrenal glands again seen. 7. Enlarged inguinal lymph nodes again seen. Venous Doppler Study 02/18/18 00:00 CONCLUSION: 1. No DVT or SVT. 2. 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 This measures 3.6 x 2.2 x 2.2 cm and is predominantly thrombosed with a small, 6 x 9 mm patent component showing biphasic flow. Central Venous Line 02/22/18 00:00 CONCLUSION: 1. Uncomplicated tunneled central venous Power PICC line placement. 2. The PICC line can be used immediately. Foot MRI 02/22/18 00:00 CONCLUSION: 1. Findings most characteristic of early osteomyelitis at the medial aspect of the first metatarsal head and a tiny focus of probable osteomyelitis at the medial corner of the proximal phalanx great toe. Mild surrounding cellulitis. 2. Previous partial amputation fifth metatarsal. Extremity Arterial Study 02/26/18 00:00 CONCLUSION: 1. Normal ABIs bilaterally. Acuna Line Insertion 03/05/18 00:00 CONCLUSION: 1. Uncomplicated Acuna catheter placement as above. Head CT 03/11/18 08:30 CONCLUSION: 1. Stable sinus disease. 2. White matter disease and remote infarcts. . Abdomen X-Ray 03/13/18 12:21 CONCLUSION: Bilateral adrenal calcifications. Chest CT 03/16/18 12:58 CONCLUSION: 1. Persistent bilateral pleural effusions and areas of airspace consolidation and groundglass opacity. This process is overall significantly improved as compared to the exam of March 05, 2018 and slightly improved/stable from the exam of March 15, 2018. Findings are consistent with multifocal pneumonia versus severe respiratory distress secondary to pulmonary edema. 2. There is persistent left supraclavicular adenopathy as well as adenopathy within the mediastinum. Correlate with prior known history of malignancy. Tube Removal 03/18/18 00:00 CONCLUSION: 1. Uncomplicated Permcath removal. Chest X-Ray 03/19/18 00:00 CONCLUSION: Tracheostomy tube in good position. Physical Exam: GENERAL: NAD SKIN: Warm and dry. HEAD: Atraumatic. Normocephalic. EYES: Pupils equal and round. No scleral icterus. No injection or drainage. ENT: No nasal bleeding or discharge. Mucous membranes pink and moist. CARDIOVASCULAR: Regular rate and rhythm. RESPIRATORY: No accessory muscle use. Diffuse rhonchi to auscultation. Breath sounds equal bilaterally. GASTROINTESTINAL: Abdomen soft, non-tender, distended. Hepatic and splenic margins not palpable. PEG in place, large amount of liquid stool in dignicheild MUSCULOSKELETAL: Extremities without clubbing, cyanosis, or edema. No obvious deformities. B/l feet with dressings in place R foot small dry lesion over 5 th MT - ok L foot with stage 3 pressure ulcer with fibbrinous necrotic tissue NEUROLOGICAL: awake, alert, communicates L side hemiplegia, contracted PSYCHIATRIC: unable to assess LINES: HIckmann in place L chest, site looks OK Assessment and Plan - Plan B/L foot osteomyelitis MRSA, on vancomycin - trough level too high Anemia likely 2/2 vanco Mild CEDRIC, likely 2/2 vanco - pt has 2 adverse effects from vancomycin so far, I will recommend to avoid vancomycin Aspiration PNA - growing ESBL + ? carbapenem R kleb pneumo, S to avycaz, colistin R zerbaxa previously MRSA and Proteus acute VDRF Diarreha, C.diff negative CEDRIC : GFR 80 today -no eos in urine Funguria C. glabrata candidemia ? source HIckmann: removed 2 D echo negative New issue: GNB bacteremia - dw microlab: noano will be available tomorrow cont AVYCAZ cont micufungin cont levaquin dc zyvox start vancomycin to complete tx for MRSA osteo L foot dc fluconazol repeat BC dilated funduscopic exam by ophthalmology when clears fugemia dw microlab dw Dr Paul lin RN
[2018-03-22] MEDS: Insulin NovoLIN Regular Correctional Sugar Inj SQ SCH ×6 (00:16→20:15)
--- NOTE | 2018-03-22 04:17 | XR ---
EXAM DATE: 03/22/2018 4:01 AM EDT AGE/SEX: 47 years / Male INDICATIONS: Shortness of breath CLINICAL DATA: This is the patient's subsequent encounter. Patient reports that signs and symptoms h ave been present for 1 week and indicates a pain score of Nonresponsive. MEDICAL/SURGICAL HISTORY: . Cerebrovascular disease. Hypertension. Diabetes. Cardiovascular dis ease. Anemia. CABG. COMPARISON: [facility] – [place], CHEST 1V SINGLE AP, 03/19/2018. . FINDINGS: Stable tracheostomy and left subclavian central line. Apparent interval removal of right-sided chest tube. Progressive patchy airspace disease and likely small bilateral pleural effusions, left greater than right. Cardiomediastinal contours are stable. Remainder of the exam is unchanged. CONCLUSION: 1. Interval removal of right-sided chest tube without pneumothorax. 2. Progressive bilateral lower lobe patchy airspace disease and small pleural effusions, left greate r than right. Electronically signed by: Alan Young MD 03/22/2018 4:16 AM EDT
[2018-03-22] MEDS: Ceftazidime/Avibactam Inj 2.5 GM in Sodium Chlor 0.9% Inj 50 ML IV.SIG SCH ×3 (04:20→20:13)
[2018-03-22 05:26] LABS: Hematocrit 22.9 % (39.0-51.0); Hemoglobin 7.7 gm/dL (13.0-17.0); Mean Corpuscular HGB Conc 33.7 % (32.0-36.0); Mean Corpuscular Volume 89.1 fL (80.0-100.0); Mean Platelet Volume 7.7 fL (7.0-11.0); Platelet Count 258 th/mm3 (150-450); Red Blood Count 2.57 mil/mm3 (4.50-5.90); Red Cell Distribution Width 14.9 % (11.6-17.2); White Blood Count 4.8 th/mm3 (4.0-11.0)
[2018-03-22 05:43] LABS: Alanine Aminotransferase 22 U/L (12-78); Albumin 1.9 g/dL (3.4-5.0); Anion Gap 9 meq/L (5-15); Aspartate Aminotransferase 23 U/L (15-37); Blood Urea Nitrogen 12 mg/dL (7-18); Calcium 8.5 mg/dL (8.5-10.1); Carbon Dioxide 26.5 meq/L (21.0-32.0); Chloride 110 meq/L (98-107); Glomerular Filtration Rate 74 mL/min (>89); Glucose,Random 88 mg/dL (74-106); Potassium 3.7 meq/L (3.5-5.1); Sodium 145 meq/L (136-145)
[2018-03-22 05:45] LABS: Alkaline Phosphatase 126 U/L (45-117); Total Protein 7.7 g/dL (6.4-8.2); Vancomycin,Random 19.2 Comment
[2018-03-22] MEDS: Senna/Docusate Sodium 8.6/50 MG Tablet G-TUBE SCH ×2 (08:02→20:14)
[2018-03-22] MEDS: Hypromellose 0.3% Opth Gel 10 GM Bottle EACH EYE SCH (08:02)
[2018-03-22] MEDS: levETIRAcetam 500 MG Tablet G-TUBE SCH ×3 (08:02→18:48)
[2018-03-22] MEDS: Ascorbic Acid 500 MG Tablet G-TUBE SCH ×2 (08:02→20:14)
--- NOTE | 2018-03-22 12:51 | P.PN ---
Subjective Interval history: More alert today.On a T Bar at 35 %. On antibiotics per ID for sepsis. Trach secretions are less today.Chest tube is out Physical Exam Vital signs: Vital Signs 03/21/18 13:00 03/21/18 14:00 03/21/18 16:00 Temperature 97.9 F Pulse Rate 92 H 89 99 H Respiratory Rate Blood Pressure 126/77 113/71 123/78 Pulse Oximetry 99 100 98 03/21/18 17:00 03/21/18 18:00 03/21/18 19:00 Temperature Pulse Rate 95 H 90 92 H Respiratory Rate 12 15 15 Blood Pressure 125/83 123/77 133/81 Pulse Oximetry 100 98 88 L 03/21/18 20:00 03/21/18 21:00 03/21/18 22:00 Temperature 98.8 F Pulse Rate 91 H 94 H 106 H Respiratory Rate 18 15 42 H Blood Pressure 135/84 139/85 133/70 Pulse Oximetry 96 91 L 100 03/21/18 23:00 03/21/18 23:52 03/22/18 00:00 Temperature 99 F Pulse Rate 92 H 94 H Respiratory Rate 21 18 Blood Pressure 146/88 H 131/79 Pulse Oximetry 100 100 100 03/22/18 01:00 03/22/18 02:00 03/22/18 03:00 Temperature Pulse Rate 92 H 93 H 93 H Respiratory Rate 12 12 14 Blood Pressure 138/85 120/73 124/74 Pulse Oximetry 100 100 100 03/22/18 04:00 03/22/18 05:00 03/22/18 06:00 Temperature 99.9 F H Pulse Rate 93 H 92 H 94 H Respiratory Rate 23 20 16 Blood Pressure 115/70 118/75 132/69 Pulse Oximetry 100 100 100 03/22/18 07:00 03/22/18 08:00 Temperature 99.4 F Pulse Rate 104 H 97 H Respiratory Rate 24 27 H Blood Pressure 122/72 123/74 Pulse Oximetry 100 100 Intake & Output 03/21/18 03/22/18 03/22/18 18:59 06:59 18:59 Intake Total 771 / 771 1814 / 1814 Output Total 2150 / 2150 1240 / 1240 Balance -1379 / -1379 574 / 574 Weight 76.1 kg Intake: IV 50 / 50 950 / 950 Avycaz Inj 2.5 GM In NS Inj 50 50 / 50 100 / 100 ML @ 25 mls/hr IV.SIG Q8H KRISTIE Rx#:[id number] Levaquin 750 mg Premix Inj 150 150 / 150 ML @ 100 mls/hr IV.SIG Q24H KRISTIE Rx#:[id number] Zyvox 600 mg Premix 300 ML @ 300 / 300 300 mls/hr IV.SIG Q12H KRISTIE Rx#: [id number] Mycamine Inj 150 MG In NS Inj 100 / 100 100 ML @ 100 mls/hr IV.SIG Q24H KRISTIE Rx#:[id number] Oral 0 / 0 Tube Feeding 321 / 321 464 / 464 Water Bolus Amount 400 / 400 400 / 400 Output: Urine 1000 / 1000 Stool 200 / 200 240 / 240 Urine Amount (Catheter) 1949 Indwelling Urethral Catheter 1949 Other: Date of Last Bowel Movement 03/20/18 03/22/18 Narrative: GENERAL: Mid aged A/A Male awake and responds and on a T bar with trach SKIN: cool and dry. HEAD: Normocephalic. EYES: No scleral icterus. No injection or drainage. NECK: Supple, trachea midline. No JVD or lymphadenopathy. CARDIOVASCULAR: Regular rate and rhythm without murmurs, gallops, or rubs. RESPIRATORY: Breath sounds equal bilaterally. few coarse Wheezes. GASTROINTESTINAL: Abdomen soft, non-tender, nondistended. + PEG tube MUSCULOSKELETAL: No cyanosis, or edema. Neuro:alert. - Urinary Catheter Management Indwelling Urethral Catheter Cath placed during this visit: yes Reason for continuing: Acute urinary retention Insertion date: 03/05/18 Insertion time: 08:00 Results - Labs CBC & Chem 7: 03/22/18 04:36 03/22/18 04:36 Laboratory Results - last 24 hr 03/21/18 03/21/18 03/21/18 03:45 16:11 20:54 WBC RBC Hgb Hct MCV MCH MCHC RDW Plt Count MPV Sodium Potassium Chloride Carbon Dioxide Anion Gap BUN Creatinine Estimated GFR POC Glucose 150 H 111 H Random Glucose Calcium Ferritin 671 H Total Bilirubin AST ALT Alkaline Phosphatase Total Protein Albumin Random Vancomycin 03/22/18 03/22/18 03/22/18 00:14 04:15 04:36 WBC RBC Hgb Hct MCV MCH MCHC RDW Plt Count MPV Sodium 145 Potassium 3.7 Chloride 110 H Carbon Dioxide 26.5 Anion Gap 9 BUN 12 Creatinine 1.26 Estimated GFR 74 L POC Glucose 109 100 Random Glucose 88 Calcium 8.5 Ferritin Total Bilirubin 0.3 AST 23 ALT 22 Alkaline Phosphatase 126 H Total Protein 7.7 Albumin 1.9 L Random Vancomycin 19.2 03/22/18 03/22/18 04:36 12:18 WBC 4.8 RBC 2.57 L Hgb 7.7 L Hct 22.9 L MCV 89.1 MCH 30.0 MCHC 33.7 RDW 14.9 Plt Count 258 MPV 7.7 Sodium Potassium Chloride Carbon Dioxide Anion Gap BUN Creatinine Estimated GFR POC Glucose 145 H Random Glucose Calcium Ferritin Total Bilirubin AST ALT Alkaline Phosphatase Total Protein Albumin Random Vancomycin Microbiology 03/18/18 06:15 Blood - Peripheral Aerobic Blood Culture - Preliminary No growth in 4 days 03/18/18 06:15 Blood - Peripheral Anaerobic Blood Culture - Preliminary No growth in 4 days 03/18/18 04:20 Blood - Peripheral Aerobic Blood Culture - Preliminary gram negative rods 03/18/18 04:20 Blood - Peripheral Anaerobic Blood Culture - Preliminary No growth in 4 days - Imaging Impressions Chest X-Ray 03/22/18 06:00 CONCLUSION: 1. Interval removal of right-sided chest tube without pneumothorax. 2. Progressive bilateral lower lobe patchy airspace disease and small pleural effusions, left greater than right. Assessment and Plan - Assessment (1) Gram negative sepsis Code(s): A41.50 - Gram-negative sepsis, unspecified Status: Acute (2) Tracheostomy in place Code(s): Z93.0 - Tracheostomy status Status: Acute (3) End stage renal disease Code(s): N18.6 - End stage renal disease Status: Acute (4) GI bleed Code(s): K92.2 - Gastrointestinal hemorrhage, unspecified Status: Acute (5) Anemia Code(s): D64.9 - Anemia, unspecified Status: Acute (6) Osteomyelitis Code(s): M86.9 - Osteomyelitis, unspecified Status: Acute (7) Diabetes Code(s): E11.9 - Type 2 diabetes mellitus without complications Status: Acute (8) Anemia of chronic disorder Code(s): D63.8 - Anemia in other chronic diseases classified elsewhere Status : Acute (9) Acute on chronic anemia Code(s): D64.9 - Anemia, unspecified Status: Acute (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 Code(s): I72.1 - Aneurysm of artery of upper extremity Status: Acute (11) Osteomyelitis of ankle and foot Code(s): M86.9 - Osteomyelitis, unspecified Status: Acute (12) Acute kidney injury Code(s): N17.9 - Acute kidney failure, unspecified Status: Acute (13) Hypernatremia Code(s): E87.0 - Hyperosmolality and hypernatremia Status: Acute (14) Fungemia Code(s): B49 - Unspecified mycosis Status: Acute (15) Nonproliferative diabetic retinopathy of both eyes Code(s): E11.3293 - Type 2 diabetes mellitus with mild nonproliferative diabetic retinopathy without macular edema, bilateral Status: Acute (16) Gastrostomy tube in place Code(s): Z93.1 - Gastrostomy status Status: Acute - Plan 1. Cont T bar at 28 % FIo2 2. Trach lavage suction PRN 3. Antibiotics per ID 4. Duonebs qid. 5. PT evaluation 6. CPAP 5/12 at HS if he desats <90 7. Chest Xray in am
[2018-03-22] MEDS: Vancomycin Inj 1,000 MG in Sodium Chlor 0.9% Inj 250 ML IV.SIG SCH (12:52)
[2018-03-22] MEDS: Micafungin Inj 150 MG in Sodium Chlor 0.9% Inj 100 ML IV.SIG SCH (14:03)
--- NOTE | 2018-03-22 15:40 | P.PNCC ---
Subjective Subjective Remarks/Hospital Course: The patient is a 47-year-old male with a past medical history of a CVA with left -sided hemiparesis, hypertension, diabetes mellitus, anemia of chronic disease, CHF, dysphagia, status post PEG tube placement, depression, nonverbal, who was admitted under the hospitalist service on 02/17/2018 for acute on chronic anemia. In addition, the patient has a history of bilateral foot osteomyelitis. During his hospital course, he had worsening renal function with a creatinine of 1.74 this morning from 1.1 on admission. In addition, the patient was found hypernatremic with a sodium level of 156 and hyperkalemic with a potassium level 5.3. A halicat was called 2 days ago for shortness of breath, and this morning the patient had a PEA arrest. ACLS protocol was initiated and the patient received epinephrine x3, 2 amps of bicarbonate, and 1 amp of calcium and was subsequently intubated by myself with an ET tube 8.0 cm size. A chest x-ray post intubation showed diffuse bilateral pulmonary infiltrates. He was on NS at 100 mL an hour for the past 2 days. Also, he had a venous Doppler ultrasound on 02/18/2018, which showed no evidence of a DVT; however, it showed a pseudoaneurysm at the distal brachial artery measuring 3.6 x 2.2 x 2.2 cm, predominantly thrombosed; however, there was a small patent component with biphasic flow measuring 6 x 9 mm. A single lumen right PICC line was placed by interventional radiology on 02/22/2018. The patient also had an arterial Doppler ultrasound which was within normal. He was seen by Dr. Jensen from vascular surgery. In addition, the patient has been followed by podiatry and infectious disease. ABG postcode showed acute hypercapnic respiratory acidosis with a pH of 7.11, CO2 of 83, PaO2 of 99, bicarbonate 25, saturation 92% on PRVC mode, rate of 16, tidal volume 500, PEEP of 5, 100% FiO2, and I time 0.9. 03/06 Patient is sedated with Versed and Fenantl drips Levophed started overnight on 4 mics. Afebrile. Renal function worse this morning with C: 1.93 from 1.75 s/p transfusion 2U PRBC yesterday . 03/07: Remains sedated, arousable, orally intubated on mechanical ventilation. Sputum growing ESBL Klebsiella. 03/08 Patient remains intubated and Sedated with Fentanyl drip. Had T: 101 last night.Had an episode of hypoglycemia last night given D50 and placed on D10. 03/09 Patient remains sedated and intubated. T: 100 at 4 am. 03/10 Patient is intubated, sedated T:99.9. renal function is improving with Cr: 2.08 from 2.47 03/11 Patient remains intubated and sedated with Fentanyl drip. Afebrile. 03/12 Patient is off sedation intubated does not follow commands, afebrile. CT brain yesterday no acute findings. 03/13 Patient remains off sedation doesn't follow commands, T:100.3 last night. Renal function is improving with Cr: 1.47 from 1.65 03/14 Remains intubated, afebrile. TF om hold for emesis. Afebrile. 03/15 Patient remains intubated T:100.0 last night. 03/16: Patient remains intubated, sedated appears to follow some commands on sedation hold. Continues to have low-grade fever. Failed CPAP trial today due to severe tachypnea and low tidal volume. Chest x-ray shows worsening bilateral infiltrates/effusion. Will check CT to evaluate for infiltrate versus effusion. Also will increase Lasix to 40 mg every 12. 03/17: Remains intubated. T-max 100F. Opens eyes on sedation vacation. Failed CPAP 3 days due to apnea/tachypnea and low tidal problems. 03/18: Remains intubated off sedation. Now with worsening sepsis fever 100.9 T- max, candidemia on cultures from 03/15/2018. Growing yeast. Most likely source Acuna catheter on the right side. I have placed a left subclavian central line. IR to remove the Acuna catheter GILDA discussed with Dr. Paul. Continues to fail CPAP trial most likely needs tracheostomy if he fails to be in after draining the right pleural effusion 03/19: Failed CPAP again today due to low tidal volumes and tachypnea. Right chest tube placed yesterday with some 60 mL hemorrhagic effusion. Cultures remain negative today. Fungal blood culture with Nan glabrata, Acuna catheter removed yesterday after the left subclavian line was placed 03/20: Patient is status post trach yesterday currently more awake following commands on the right side. Minimal dose from the trach site has stopped. Ophthalmology consult appreciated no evidence of eye involvement from fungemia 03/21: Patient tolerated approximately 2 hours of T piece yesterday. Currently remains hemodynamically stable tolerating CPAP. Blood culture growing gram- negative serina from 03/18/18. Currently on Avycaz micafungin and Zyvox. We will start Levaquin to cover for stenotrophomonas ID following Subjective 03/22: off vent x 24h. doing ok on t-piece. denies complaints. Objective Vital Signs / I&O: Vital Signs 03/21/18 16:00 03/21/18 17:00 03/21/18 18:00 Temperature 36.6 C Pulse Rate 99 H 95 H 90 Respiratory Rate 12 15 Blood Pressure 123/78 125/83 123/77 Pulse Oximetry 98 100 98 03/21/18 19:00 03/21/18 20:00 03/21/18 21:00 Temperature 37.1 C Pulse Rate 92 H 91 H 94 H Respiratory Rate 15 18 15 Blood Pressure 133/81 135/84 139/85 Pulse Oximetry 88 L 96 91 L 03/21/18 22:00 03/21/18 23:00 03/21/18 23:52 Temperature Pulse Rate 106 H 92 H Respiratory Rate 42 H 21 Blood Pressure 133/70 146/88 H Pulse Oximetry 100 100 100 03/22/18 00:00 03/22/18 01:00 03/22/18 02:00 Temperature 37.2 C Pulse Rate 94 H 92 H 93 H Respiratory Rate 18 12 12 Blood Pressure 131/79 138/85 120/73 Pulse Oximetry 100 100 100 03/22/18 03:00 03/22/18 04:00 03/22/18 05:00 Temperature 37.7 C H Pulse Rate 93 H 93 H 92 H Respiratory Rate 14 23 20 Blood Pressure 124/74 115/70 118/75 Pulse Oximetry 100 100 100 03/22/18 06:00 03/22/18 07:00 03/22/18 08:00 Temperature 37.4 C Pulse Rate 94 H 104 H 97 H Respiratory Rate 16 24 27 H Blood Pressure 132/69 122/72 123/74 Pulse Oximetry 100 100 100 Intake & Output 03/21/18 03/22/18 03/22/18 18:59 06:59 18:59 Intake Total 771 / 771 1814 / 1814 Output Total 2150 / 2150 1240 / 1240 Balance -1379 / -1379 574 / 574 Weight 76.1 kg Intake: IV 50 / 50 950 / 950 Avycaz Inj 2.5 GM In NS Inj 50 50 / 50 100 / 100 ML @ 25 mls/hr IV.SIG Q8H KRISTIE Rx#:[id number] Levaquin 750 mg Premix Inj 150 150 / 150 ML @ 100 mls/hr IV.SIG Q24H KRISTIE Rx#:[id number] Zyvox 600 mg Premix 300 ML @ 300 / 300 300 mls/hr IV.SIG Q12H KRISTIE Rx#: [id number] Mycamine Inj 150 MG In NS Inj 100 / 100 100 ML @ 100 mls/hr IV.SIG Q24H KRISTIE Rx#:[id number] Oral 0 / 0 Tube Feeding 321 / 321 464 / 464 Water Bolus Amount 400 / 400 400 / 400 Output: Urine 1000 / 1000 Stool 200 / 200 240 / 240 Urine Amount (Catheter) 1949 Indwelling Urethral Catheter 1949 Other: Date of Last Bowel Movement 03/20/18 03/22/18 Result Diagrams: 03/22/18 04:36 03/22/18 04:36 Objective Remarks: GENERAL: Patient is 47 yo trached follows commands on right side. SKIN: Warm and dry. HEAD: Normocephalic. EYES: No scleral icterus. No injection or drainage. NECK: Supple, trachea midline. No JVD. New trach site with no active bleeding CARDIOVASCULAR: Regular rate and rhythm. sinus. RESPIRATORY: Breath sounds equal bilaterally. Basilar crackles and diminished breath sounds. GASTROINTESTINAL: Abdomen soft, non-tender, nondistended. + PEG tube MUSCULOSKELETAL: Trace bilateral lower edema. Neuro Off all sedation, follows commands on right side, flaccid on the left side. More awake today Assessment and Plan - Assessment and Plan Plan: ASSESSMENT: Acute respiratory failure S/p PEA arrest HCAP, aspiration pneumonia/Klebsiella ESBL positive sputum/MRSA Gram-negative bacteremia Fungemia, likely from infected Acuna catheter Sepsis Acute kidney injury. Large right pleural effusion status post pigtail catheter History CVA with left-sided hemiparesis. 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 Bilateral foot osteomyelitis methicillin-resistant Staphylococcus aureus. Hyperlipidemia Anemia of chronic inflammation Seizure disorder NOS Hypertension PLAN: Neuro: off sedation monitor neuro status on levetiracetam 500 mg t.i.d. for a history of seizures. CT brain 03/11: No acute findings. EEG: Mild slowing Pulm: s/p Tracheostomy 03/19 Dr. Miller/Dr. Meadows. Increase T piece time to 6-8 hours, CPAP at night Albuterol/ipratropium aerosols every 4 hours with albuterol aerosols every 2 hours as needed dyspnea, ICU vent bundle. s/p diagnostic US guided thoracentesis 40ml removed ( transudative fluid ) CT 03/16 performed with moderate right pleural effusion. Right pigtail chest tube placed 03/18/2018 with 760 mL drained, now removed Bronch with BAL 03/06 showed secretions L>R suctioned to clear, BAL performed LLL. BAL: Kleb pneumonia ESBL, Proteus Mirabilis, MRSA. Recent sputum session with MD resistant Klebsiella CV: Monitor HR and BP and maintain MAP> 65 mmHg. Echo showed EF 60-65% : Monitor renal function, I's and O's , electrolytes replacement per protocol Renal function stable. Continue with Free water 200 every 6 monitor sodium level Furosemide 40 mg daily-reduced to 20 due to increase in creat GI: On lansoprazole 30 mg daily. Nepro with goal rate 550ml/hr per nutrition's recommendations KUB 03/13: No obstructing bowel gas pattern. ID: Continue with abx (Avycaz, micafungin, Zyvox) ID is following. Blood culture from 03/18/2018 showing gram-negative rods, add Levaquin to cover for stenotrophomonas and additional gram-negative coverage New line placed 03/18/18, culture from same day. Unlikely to be new line related, but likely related to Acuna catheter 03/15 blood culture growing Nan glabrata IR removed Acuna 03/18/18 Sputum cx 03/13: MDR Klebsiella Urine cx: Nan Albicans 03/13 03/05 Sputum cx: ESBL Klebsiella BAL cx 03/06: Kleb pneumonia ESBL, Proteus Mirabilis, MRSA Wound culture growing MRSA from osteomyelitis site. Heme: Monitor CBC and coags. s/p transfusion 2u PRBC 03/05 heme occult negative Endo: SSI with Accu-Cheks for glycemic control. GI prophylaxis- On Prevacid DVT prophylaxis- SCD, heparin SQ held for anemia requiring blood transfusion. IV access: Left subclavian central line placed 03/18/2018. Acuna removed 2017 OVERALL IMPRESSION: some improvements in mental status. overall prognosis guarded. needs aggressive rehab. would be good LTAC candidate.
[2018-03-23] MEDS: Hypromellose 0.3% Opth Gel 10 GM Bottle EACH EYE SCH ×2 (00:18→09:18)
[2018-03-23] MEDS: Insulin NovoLIN Regular Correctional Sugar Inj SQ SCH ×5 (00:18→22:58)
[2018-03-23] MEDS: Vancomycin Inj 1,000 MG in Sodium Chlor 0.9% Inj 250 ML IV.SIG SCH ×2 (00:18→13:22)
[2018-03-23] MEDS: Ceftazidime/Avibactam Inj 2.5 GM in Sodium Chlor 0.9% Inj 50 ML IV.SIG SCH ×3 (04:13→22:59)
[2018-03-23 06:16] LABS: Hematocrit 22.9 % (39.0-51.0); Hemoglobin 7.7 gm/dL (13.0-17.0); Mean Corpuscular HGB Conc 33.4 % (32.0-36.0); Mean Corpuscular Hemoglobin 29.9 pg (27.0-34.0); Mean Corpuscular Volume 89.5 fL (80.0-100.0); Platelet Count 251 th/mm3 (150-450); Red Blood Count 2.56 mil/mm3 (4.50-5.90); Red Cell Distribution Width 15.1 % (11.6-17.2); White Blood Count 4.9 th/mm3 (4.0-11.0)
[2018-03-23 06:44] LABS: Calcium 8.9 mg/dL (8.5-10.1); Carbon Dioxide 26.9 meq/L (21.0-32.0); Potassium 3.5 meq/L (3.5-5.1)
[2018-03-23] MEDS: levETIRAcetam 500 MG Tablet G-TUBE SCH ×3 (09:18→18:24)
[2018-03-23] MEDS: Senna/Docusate Sodium 8.6/50 MG Tablet G-TUBE SCH ×2 (09:18→23:00)
[2018-03-23] MEDS: Ascorbic Acid 500 MG Tablet G-TUBE SCH ×2 (09:18→23:00)
--- NOTE | 2018-03-23 11:35 | P.PNONC ---
Subjective Interval history: Afebrile. Patient now off vent, T piece in place. Patient awake and alert, nodding head to answer questions. Denies pain at this time. Objective Vital Signs/Intake & Output: Vital Signs 03/22/18 12:00 03/22/18 13:00 03/22/18 14:00 Temperature 99 F Pulse Rate 96 H 96 H 95 H Respiratory Rate 30 H 17 22 Blood Pressure 119/74 114/83 132/86 Pulse Oximetry 100 100 100 03/22/18 15:00 03/22/18 16:00 03/22/18 17:00 Temperature 99.1 F Pulse Rate 96 H 98 H 100 H Respiratory Rate 9 L 25 H 30 H Blood Pressure 137/87 138/85 141/84 H Pulse Oximetry 100 100 100 03/22/18 18:00 03/22/18 19:00 03/22/18 20:00 Temperature 98.3 F Pulse Rate 99 H 107 H 100 H Respiratory Rate 26 H 12 19 Blood Pressure 138/87 132/84 132/86 Pulse Oximetry 100 100 100 03/22/18 21:00 03/22/18 22:00 03/22/18 23:00 Temperature Pulse Rate 98 H 114 H 102 H Respiratory Rate 15 15 28 H Blood Pressure 132/87 138/91 H Pulse Oximetry 100 100 100 03/22/18 23:01 03/23/18 00:00 03/23/18 00:48 Temperature 98.6 F Pulse Rate 102 H 100 H Respiratory Rate 19 15 Blood Pressure 126/81 125/83 Pulse Oximetry 100 100 100 03/23/18 01:00 03/23/18 02:00 03/23/18 03:00 Temperature 98.6 F Pulse Rate 101 H 101 H 100 H Respiratory Rate 16 23 31 H Blood Pressure 119/76 117/73 114/73 Pulse Oximetry 100 100 100 03/23/18 03:47 03/23/18 04:00 03/23/18 06:00 Temperature Pulse Rate 100 H 100 H Respiratory Rate 25 H Blood Pressure 116/75 Pulse Oximetry 99 100 03/23/18 08:00 03/23/18 10:00 Temperature 99.0 F Pulse Rate 95 H 96 H Respiratory Rate 21 Blood Pressure 117/79 Pulse Oximetry 100 Intake & Output 03/22/18 03/23/18 03/23/18 18:59 06:59 18:59 Intake Total 1226 / 1226 1221 / 1221 300 / 300 Output Total 1150 / 1150 400 / 400 Balance 76 / 76 821 / 821 300 / 300 Weight 76.9 kg Intake: IV 400 / 400 200 / 200 300 / 300 Avycaz Inj 2.5 GM In NS Inj 50 50 / 50 50 / 50 50 / 50 ML @ 25 mls/hr IV.SIG Q8H KRISTIE Rx#:[id number] Levaquin 750 mg Premix Inj 150 150 / 150 ML @ 100 mls/hr IV.SIG Q24H KRISTIE Rx#:[id number] Mycamine Inj 150 MG In NS Inj 100 / 100 100 ML @ 100 mls/hr IV.SIG Q24H KRISTIE Rx#:[id number] Vancomycin Inj 1,000 MG In NS 250 / 250 0 / 0 250 / 250 Inj 250 ML @ 250 mls/hr IV.SIG Q12H KRISTIE Rx#:[id number] Tube Feeding 426 / 426 621 / 621 Water Bolus Amount 400 / 400 400 / 400 Output: Urine 650 / 650 300 / 300 Stool 500 / 500 100 / 100 Other: # Incontinent Voids 3 Date of Last Bowel Movement 03/22/18 03/23/18 03/23/18 Result Diagrams: 03/23/18 04:20 03/23/18 04:20 Laboratory Results: Laboratory Results - last 24 hr 03/22/18 03/22/18 03/22/18 12:18 16:42 20:15 WBC RBC Hgb Hct MCV MCH MCHC RDW Plt Count MPV Sodium Potassium Chloride Carbon Dioxide Anion Gap BUN Creatinine Estimated GFR POC Glucose 145 H 123 H 97 Random Glucose Calcium 03/23/18 03/23/18 03/23/18 00:11 04:11 04:20 WBC 4.9 RBC 2.56 L Hgb 7.7 L Hct 22.9 L MCV 89.5 MCH 29.9 MCHC 33.4 RDW 15.1 Plt Count 251 MPV 8.0 Sodium Potassium Chloride Carbon Dioxide Anion Gap BUN Creatinine Estimated GFR POC Glucose 95 123 H Random Glucose Calcium 03/23/18 04:20 WBC RBC Hgb Hct MCV MCH MCHC RDW Plt Count MPV Sodium 144 Potassium 3.5 Chloride 109 H Carbon Dioxide 26.9 Anion Gap 8 BUN 16 Creatinine 1.26 Estimated GFR 74 L POC Glucose Random Glucose 105 Calcium 8.9 Culture Results: Microbiology 03/18/18 06:15 Aerobic Blood Culture - Final Blood - Peripheral No growth in 5 days Anaerobic Blood Culture - Final No growth in 5 days 03/18/18 04:20 Aerobic Blood Culture - Preliminary Blood - Peripheral gram negative rods Anaerobic Blood Culture - Final No growth in 5 days 03/18/18 09:55 Gram Stain - Final Fluid - Pleural fluid Body Fluid Culture - Final No growth in 72 hours (aerobically and anaerobically) 03/06/18 15:00 Fungal Smear - Final Bronchial Washings - Left Lower Lobe No fungal elements seen Fungal Culture - Preliminary No growth in 2 weeks 03/06/18 15:00 Acid Fast Bacilli Smear - Final Bronchial Washings - Left Lower Lobe No acid fast bacilli seen Mycobacterial Culture - Preliminary No growth in 2 weeks 03/15/18 10:12 Aerobic Blood Culture - Final Blood - Peripheral No growth in 5 days Anaerobic Blood Culture - Final Nan glabrata 03/15/18 10:07 Aerobic Blood Culture - Final Blood - Peripheral No growth in 5 days Anaerobic Blood Culture - Final No growth in 5 days Medications: Active Medications Generic Name Dose Route Start Last Admin Trade Name Freq PRN Reason Stop Dose Admin Amlodipine Besylate 10 mg 02/20/18 09:00 03/05/18 09:12 Norvasc G-TUBE Not Given DAILY KRISTIE Artificial Tears 1 drops 03/17/18 21:00 03/23/18 09:18 Genteal Severe Dry Eye Relief 0.3% Opth Gel EACH EYE 1 drops BID KRISTIE Administration Ascorbic Acid 500 mg 02/19/18 08:13 03/23/18 09:18 Vitamin C G-TUBE 500 mg BID KRISTIE Administration Atorvastatin Calcium 10 mg 02/17/18 21:00 03/22/18 20:14 Lipitor G-TUBE 10 mg HS KRISTIE Administration Carvedilol 25 mg 02/17/18 13:00 03/05/18 09:11 Coreg G-TUBE Not Given BID KRISTIE Dextrose 50 ml 02/17/18 11:23 03/14/18 05:02 D50w Vial IV.PUSH 50 ml UNSCH PRN Administration PER HYPOGLYCEMIA PROTOCOL Escitalopram Oxalate 15 mg 02/19/18 08:19 03/06/18 08:05 Lexapro G-TUBE 15 mg DAILY KRISTIE Administration Furosemide 20 mg 03/20/18 13:45 03/23/18 09:17 Lasix Inj IV.PUSH 20 mg DAILY KRISTIE Administration Heparin Sodium (Porcine) 5,000 units 02/21/18 21:00 03/05/18 09:25 Heparin Inj SQ 5,000 units Q12HR KRISTIE Administration Hydralazine HCl 100 mg 02/19/18 08:19 03/05/18 09:11 Apresoline G-TUBE Not Given TID KRISTIE Potassium Chloride 40 meq in 100 mls @ 25 mls/hr 03/13/18 14:59 03/17/18 15: 46 Kcl 40 Meq Premix Inj IV.SIG Infused Q2H PRN Infusion For Potassium 2.8 - 3.2 mEq/L Potassium Chloride 20 meq in 100 mls @ 50 mls/hr 03/13/18 14:59 03/14/18 20: 05 Kcl 20 Meq Premix Inj IV.SIG Infused Q2H PRN Infusion For Potassium 3.3 - 3.5 mEq/L Potassium Chloride 40 meq in 100 mls @ 25 mls/hr 03/13/18 14:59 03/19/18 12: 47 Kcl 40 Meq Premix Inj IV.SIG Infused UNSCH PRN Infusion For Potassium 3.3 - 3.5 mEq/L Potassium Chloride 20 meq in 100 mls @ 50 mls/hr 03/13/18 14:59 03/18/18 02: 14 Kcl 20 Meq Premix Inj IV.SIG Infused Q2H PRN Infusion For Potassium 2.8 - 3.2 mEq/L Ceftazidime/Avibactam 2.5 gm/ 50 mls @ 25 mls/hr 03/15/18 20:00 03/23/18 07: 18 Sodium Chloride IV.SIG Infused Q8H KRISTIE Infusion Micafungin Sodium 150 mg/ 100 mls @ 100 mls/hr 03/17/18 14:00 03/22/18 16:46 Sodium Chloride IV.SIG Infused Q24H KRISTIE Infusion Levofloxacin/Dextrose 150 mls @ 100 mls/hr 03/21/18 16:00 03/22/18 19:00 Levaquin 750 Mg Premix Inj IV.SIG Infused Q24H KRISTIE Infusion Vancomycin HCl 1,000 mg/ 250 mls @ 250 mls/hr 03/22/18 13:00 03/23/18 07:18 Sodium Chloride IV.SIG Infused Q12H KRISTIE Infusion Insulin Human Regular 0 units 03/05/18 12:00 03/23/18 09:14 Novolin R Correctional Sugar Inj SQ Not Given Q4HR KRISTIE Protocol Lansoprazole 30 mg 02/20/18 09:00 03/23/18 09:18 Prevacid Solutab NG/OG 30 mg DAILY KRISTIE Administration Levetiracetam 500 mg 02/19/18 08:19 03/23/18 09:18 Keppra G-TUBE 500 mg TID KRISTIE Administration Ondansetron HCl 4 mg 02/17/18 06:46 03/14/18 20:06 Zofran Inj IV.PUSH 4 mg Q6H PRN Administration NAUSEA OR VOMITING Potassium Bicarb/Potassium Chloride 50 meq 03/13/18 14:59 03/19/18 20:29 K-Lyte Cl Eff PO 50 meq UNSCH PRN Administration For Potassium 3.3 - 3.5 mEq/L Senna/Docusate Sodium 1 tab 02/19/18 08:19 03/23/18 09:18 Jessie-Colace G-TUBE 1 tab BID KRISTIE Administration Sterile Water 200 ml 03/15/18 12:00 03/23/18 06:17 Free Water G-TUBE 200 ml Q6HR KRISTIE Administration Objective Remarks: GENERAL: Chronically ill-appearing male patient, in no acute distress. Nods head to answer questions. SKIN: Warm and dry. HEAD: Normocephalic. EYES: No scleral icterus. No injection or drainage. NECK: Supple, trachea midline. +Trach. T piece in place. CARDIOVASCULAR: Regular rate and rhythm without murmurs. RESPIRATORY: Anterior breath sounds clear, equal bilaterally. No accessory muscle use. GASTROINTESTINAL: Abdomen soft, non-tender, nondistended. EXTREMITIES: No cyanosis, or edema. Support boots to BLE. MUSCULOSKELETAL: Decreased muscle tone. NEUROLOGICAL: Answers some questions with head nodding. Not moving extremities. Assessment/Plan (1) End stage renal disease Code(s): N18.6 - End stage renal disease Status: Acute (2) GI bleed Code(s): K92.2 - Gastrointestinal hemorrhage, unspecified Status: Acute (3) Anemia Code(s): D64.9 - Anemia, unspecified Status: Acute (4) Osteomyelitis Code(s): M86.9 - Osteomyelitis, unspecified Status: Acute (5) Diabetes Code(s): E11.9 - Type 2 diabetes mellitus without complications Status: Acute (6) Anemia of chronic disorder Code(s): D63.8 - Anemia in other chronic diseases classified elsewhere Status : Acute (7) Acute on chronic anemia Code(s): D64.9 - Anemia, unspecified Status: Acute (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 He is on a ventilator. He has undergone cardiac arrest. Status post ACLS protocol. He was successfully resuscitated. He has respiratory failure. He has osteomyelitis of the foot. He also has sepsis and pneumonia. He has candiduria. He is currently on multiple antibiotics. He has a history of stroke and chronic anemia. He developed acute on chronic anemia. He has acute on chronic kidney disease. During the course of his workup serum protein electrophoresis and immunoelectrophoresis was performed. These tests were interpreted as abnormal and hematology has been consulted to make further recommendations: Plan: 1. Serum protein electrophoresis results consistent with inflammation/reactive process. Immunoelectrophoresis, no monoclonal protein identified. 2. Anemia, likely secondary to inflammation. Recommendations to keep hemoglobin greater than 7.5. No transfusion warranted today. Ferritin was normal at 463 on 03/13/2018, repeat iron studies on 03/20/2018 showed iron of 17, TIBC 199 and percentage saturation 8.6. Ferritin level 03/21/2018 671. 3. Sepsis, pneumonia and osteomyelitis. 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 Blood cultures from 03/18 are growing gram-negative bacteria. 4. Adenopathy noted on CT scan. pleural fluid was inconclusive for malignant cells. Markedly reactive mesothelial cells versus carcinoma. Insufficient material is present in the cell block for further testing. This could be secondary to inflammation, however we will repeat a CT scan next week to follow- up on the lymphadenopathy.
[2018-03-23] MEDS: Micafungin Inj 150 MG in Sodium Chlor 0.9% Inj 100 ML IV.SIG SCH (13:22)
--- NOTE | 2018-03-23 14:28 | P.PN ---
Subjective Interval history: Awake and responds to commands. On T bar and tolerates it. Sats 99 on 35 % On IV antibiotics Physical Exam Vital signs: Vital Signs 03/22/18 15:00 03/22/18 16:00 03/22/18 17:00 Temperature 99.1 F Pulse Rate 96 H 98 H 100 H Respiratory Rate 9 L 25 H 30 H Blood Pressure 137/87 138/85 141/84 H Pulse Oximetry 100 100 100 03/22/18 18:00 03/22/18 19:00 03/22/18 20:00 Temperature 98.3 F Pulse Rate 99 H 107 H 100 H Respiratory Rate 26 H 12 19 Blood Pressure 138/87 132/84 132/86 Pulse Oximetry 100 100 100 03/22/18 21:00 03/22/18 22:00 03/22/18 23:00 Temperature Pulse Rate 98 H 114 H 102 H Respiratory Rate 15 15 28 H Blood Pressure 132/87 138/91 H Pulse Oximetry 100 100 100 03/22/18 23:01 03/23/18 00:00 03/23/18 00:48 Temperature 98.6 F Pulse Rate 102 H 100 H Respiratory Rate 19 15 Blood Pressure 126/81 125/83 Pulse Oximetry 100 100 100 03/23/18 01:00 03/23/18 02:00 03/23/18 03:00 Temperature 98.6 F Pulse Rate 101 H 101 H 100 H Respiratory Rate 16 23 31 H Blood Pressure 119/76 117/73 114/73 Pulse Oximetry 100 100 100 03/23/18 03:47 03/23/18 04:00 03/23/18 06:00 Temperature Pulse Rate 100 H 100 H Respiratory Rate 25 H Blood Pressure 116/75 Pulse Oximetry 99 100 03/23/18 08:00 03/23/18 10:00 Temperature 99.0 F Pulse Rate 95 H 96 H Respiratory Rate 21 Blood Pressure 117/79 Pulse Oximetry 100 Intake & Output 03/22/18 03/23/18 03/23/18 18:59 06:59 18:59 Intake Total 1226 / 1226 1221 / 1221 300 / 300 Output Total 1150 / 1150 400 / 400 Balance 76 / 76 821 / 821 300 / 300 Weight 76.9 kg Intake: IV 400 / 400 200 / 200 300 / 300 Avycaz Inj 2.5 GM In NS Inj 50 50 / 50 50 / 50 50 / 50 ML @ 25 mls/hr IV.SIG Q8H KRISTIE Rx#:[id number] Levaquin 750 mg Premix Inj 150 150 / 150 ML @ 100 mls/hr IV.SIG Q24H KRISTIE Rx#:[id number] Mycamine Inj 150 MG In NS Inj 100 / 100 100 ML @ 100 mls/hr IV.SIG Q24H KRISTIE Rx#:[id number] Vancomycin Inj 1,000 MG In NS 250 / 250 0 / 0 250 / 250 Inj 250 ML @ 250 mls/hr IV.SIG Q12H KRISTIE Rx#:[id number] Tube Feeding 426 / 426 621 / 621 Water Bolus Amount 400 / 400 400 / 400 Output: Urine 650 / 650 300 / 300 Stool 500 / 500 100 / 100 Other: # Incontinent Voids 3 Date of Last Bowel Movement 03/22/18 03/23/18 03/23/18 Narrative: GENERAL: Mid aged A/A Male awake and responds and on a T bar with trach SKIN: cool and dry. HEAD: Normocephalic.JEN EYES: No scleral icterus. No injection or drainage. NECK: Supple, trachea midline. No JVD or lymphadenopathy. CARDIOVASCULAR: Regular rate and rhythm without murmurs, gallops, or rubs. RESPIRATORY: Breath sounds equal bilaterally. few coarse Wheezes. GASTROINTESTINAL: Abdomen soft, non-tender, nondistended. + PEG tube MUSCULOSKELETAL: No cyanosis, or edema. Neuro:alert.Weak on left - Urinary Catheter Management Indwelling Urethral Catheter Cath placed during this visit: yes Reason for continuing: Acute urinary retention Insertion date: 03/05/18 Insertion time: 08:00 Results - Labs CBC & Chem 7: 03/24/18 06:10 03/24/18 00:55 Laboratory Results - last 24 hr 03/22/18 03/22/18 03/23/18 16:42 20:15 00:11 WBC RBC Hgb Hct MCV MCH MCHC RDW Plt Count MPV Sodium Potassium Chloride Carbon Dioxide Anion Gap BUN Creatinine Estimated GFR POC Glucose 123 H 97 95 Random Glucose Calcium 03/23/18 03/23/18 03/23/18 04:11 04:20 04:20 WBC 4.9 RBC 2.56 L Hgb 7.7 L Hct 22.9 L MCV 89.5 MCH 29.9 MCHC 33.4 RDW 15.1 Plt Count 251 MPV 8.0 Sodium 144 Potassium 3.5 Chloride 109 H Carbon Dioxide 26.9 Anion Gap 8 BUN 16 Creatinine 1.26 Estimated GFR 74 L POC Glucose 123 H Random Glucose 105 Calcium 8.9 03/23/18 13:10 WBC RBC Hgb Hct MCV MCH MCHC RDW Plt Count MPV Sodium Potassium Chloride Carbon Dioxide Anion Gap BUN Creatinine Estimated GFR POC Glucose 110 Random Glucose Calcium Microbiology 03/18/18 06:15 Blood - Peripheral Aerobic Blood Culture - Final No growth in 5 days 03/18/18 06:15 Blood - Peripheral Anaerobic Blood Culture - Final No growth in 5 days 03/18/18 04:20 Blood - Peripheral Aerobic Blood Culture - Preliminary gram negative rods 03/18/18 04:20 Blood - Peripheral Anaerobic Blood Culture - Final No growth in 5 days Assessment and Plan - Assessment (1) Gram negative sepsis Code(s): A41.50 - Gram-negative sepsis, unspecified Status: Acute (2) Tracheostomy in place Code(s): Z93.0 - Tracheostomy status Status: Acute (3) End stage renal disease Code(s): N18.6 - End stage renal disease Status: Acute (4) GI bleed Code(s): K92.2 - Gastrointestinal hemorrhage, unspecified Status: Acute (5) Anemia Code(s): D64.9 - Anemia, unspecified Status: Acute (6) Osteomyelitis Code(s): M86.9 - Osteomyelitis, unspecified Status: Acute (7) Diabetes Code(s): E11.9 - Type 2 diabetes mellitus without complications Status: Acute (8) Anemia of chronic disorder Code(s): D63.8 - Anemia in other chronic diseases classified elsewhere Status : Acute (9) Acute on chronic anemia Code(s): D64.9 - Anemia, unspecified Status: Acute (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 Code(s): I72.1 - Aneurysm of artery of upper extremity Status: Acute (11) Osteomyelitis of ankle and foot Code(s): M86.9 - Osteomyelitis, unspecified Status: Acute (12) Acute kidney injury Code(s): N17.9 - Acute kidney failure, unspecified Status: Acute (13) Hypernatremia Code(s): E87.0 - Hyperosmolality and hypernatremia Status: Acute (14) Fungemia Code(s): B49 - Unspecified mycosis Status: Acute (15) Nonproliferative diabetic retinopathy of both eyes Code(s): E11.3293 - Type 2 diabetes mellitus with mild nonproliferative diabetic retinopathy without macular edema, bilateral Status: Acute (16) Gastrostomy tube in place Code(s): Z93.1 - Gastrostomy status Status: Acute (17) Pleural effusion Code(s): J90 - Pleural effusion, not elsewhere classified Status: Acute - Plan 1. Cont T bar at 28 % FIo2 2. Trach lavage suction PRN 3. Antibiotics per ID 4. Duonebs qid. 5. PT evaluation 6. CPAP 5/12 at HS if he desats <90 7. CBC,BMP
--- NOTE | 2018-03-23 15:08 | P.PNID ---
Subjective Remarks: off pressors, on Tpiece afebrile appreciate ophthalmology input: No ocular involvement on dilated exam. Antibiotics: avycaz vanco micafungin Lines: HIchmann R chest placen on 03/05 Allergies/Adverse Reactions: Allergies No Known Allergies Allergy (Unknown, Uncoded 01/06/18 21:04) Objective Vital Signs 03/22/18 15:00 03/22/18 16:00 03/22/18 17:00 Temperature 99.1 F Pulse Rate 96 H 98 H 100 H Respiratory Rate 9 L 25 H 30 H Blood Pressure 137/87 138/85 141/84 H Pulse Oximetry 100 100 100 03/22/18 18:00 03/22/18 19:00 03/22/18 20:00 Temperature 98.3 F Pulse Rate 99 H 107 H 100 H Respiratory Rate 26 H 12 19 Blood Pressure 138/87 132/84 132/86 Pulse Oximetry 100 100 100 03/22/18 21:00 03/22/18 22:00 03/22/18 23:00 Temperature Pulse Rate 98 H 114 H 102 H Respiratory Rate 15 15 28 H Blood Pressure 132/87 138/91 H Pulse Oximetry 100 100 100 03/22/18 23:01 03/23/18 00:00 03/23/18 00:48 Temperature 98.6 F Pulse Rate 102 H 100 H Respiratory Rate 19 15 Blood Pressure 126/81 125/83 Pulse Oximetry 100 100 100 03/23/18 01:00 03/23/18 02:00 03/23/18 03:00 Temperature 98.6 F Pulse Rate 101 H 101 H 100 H Respiratory Rate 16 23 31 H Blood Pressure 119/76 117/73 114/73 Pulse Oximetry 100 100 100 03/23/18 03:47 03/23/18 04:00 03/23/18 06:00 Temperature Pulse Rate 100 H 100 H Respiratory Rate 25 H Blood Pressure 116/75 Pulse Oximetry 99 100 03/23/18 08:00 03/23/18 10:00 03/23/18 12:00 Temperature 99.0 F 98.8 F Pulse Rate 95 H 96 H 98 H Respiratory Rate 21 21 Blood Pressure 117/79 127/76 Pulse Oximetry 100 100 Intake & Output 03/22/18 03/23/18 03/23/18 18:59 06:59 18:59 Intake Total 1226 / 1226 1221 / 1221 300 / 300 Output Total 1150 / 1150 400 / 400 Balance 76 / 76 821 / 821 300 / 300 Weight 76.9 kg Intake: IV 400 / 400 200 / 200 300 / 300 Avycaz Inj 2.5 GM In NS Inj 50 50 / 50 50 / 50 50 / 50 ML @ 25 mls/hr IV.SIG Q8H KRISTIE Rx#:[id number] Levaquin 750 mg Premix Inj 150 150 / 150 ML @ 100 mls/hr IV.SIG Q24H KRISTIE Rx#:[id number] Mycamine Inj 150 MG In NS Inj 100 / 100 100 ML @ 100 mls/hr IV.SIG Q24H KRISTIE Rx#:[id number] Vancomycin Inj 1,000 MG In NS 250 / 250 0 / 0 250 / 250 Inj 250 ML @ 250 mls/hr IV.SIG Q12H KRISTIE Rx#:[id number] Tube Feeding 426 / 426 621 / 621 Water Bolus Amount 400 / 400 400 / 400 Output: Urine 650 / 650 300 / 300 Stool 500 / 500 100 / 100 Other: # Incontinent Voids 3 Date of Last Bowel Movement 03/22/18 03/23/18 03/23/18 03/18/18 06:15 Blood - Peripheral Aerobic Blood Culture - Final No growth in 5 days 03/18/18 06:15 Blood - Peripheral Anaerobic Blood Culture - Final No growth in 5 days 03/18/18 04:20 Blood - Peripheral Aerobic Blood Culture - Preliminary gram negative rods 03/18/18 04:20 Blood - Peripheral Anaerobic Blood Culture - Final No growth in 5 days 03/18/18 09:55 Fluid - Pleural fluid Gram Stain - Final 03/18/18 09:55 Fluid - Pleural fluid Body Fluid Culture - Final No growth in 72 hours (aerobically and anaerobically ) 03/06/18 15:00 Bronchial Washings - Left Lower Lobe Fungal Smear - Final No fungal elements seen 03/06/18 15:00 Bronchial Washings - Left Lower Lobe Fungal Culture - Preliminary No growth in 2 weeks 03/06/18 15:00 Bronchial Washings - Left Lower Lobe Acid Fast Bacilli Smear - Final No acid fast bacilli seen 03/06/18 15:00 Bronchial Washings - Left Lower Lobe Mycobacterial Culture - Preliminary No growth in 2 weeks 03/15/18 10:12 Blood - Peripheral Aerobic Blood Culture - Final No growth in 5 days 03/15/18 10:12 Blood - Peripheral Anaerobic Blood Culture - Final Nan glabrata 03/15/18 10:07 Blood - Peripheral Aerobic Blood Culture - Final No growth in 5 days 03/15/18 10:07 Blood - Peripheral Anaerobic Blood Culture - Final No growth in 5 days Lab - Hematology Results 03/22/18 03/23/18 04:36 04:20 WBC 4.8 4.9 RBC 2.57 L 2.56 L Hgb 7.7 L 7.7 L Hct 22.9 L 22.9 L MCV 89.1 89.5 MCH 30.0 29.9 MCHC 33.7 33.4 RDW 14.9 15.1 Plt Count 258 251 MPV 7.7 8.0 Lab - Chemistry Results 03/21/18 03/21/18 03/22/18 16:11 20:54 00:14 Sodium Potassium Chloride Carbon Dioxide Anion Gap BUN Creatinine Estimated GFR POC Glucose 150 H 111 H 109 Random Glucose Calcium Total Bilirubin AST ALT Alkaline Phosphatase Total Protein Albumin 03/22/18 03/22/18 03/22/18 04:15 04:36 12:18 Sodium 145 Potassium 3.7 Chloride 110 H Carbon Dioxide 26.5 Anion Gap 9 BUN 12 Creatinine 1.26 Estimated GFR 74 L POC Glucose 100 145 H Random Glucose 88 Calcium 8.5 Total Bilirubin 0.3 AST 23 ALT 22 Alkaline Phosphatase 126 H Total Protein 7.7 Albumin 1.9 L 03/22/18 03/22/18 03/23/18 16:42 20:15 00:11 Sodium Potassium Chloride Carbon Dioxide Anion Gap BUN Creatinine Estimated GFR POC Glucose 123 H 97 95 Random Glucose Calcium Total Bilirubin AST ALT Alkaline Phosphatase Total Protein Albumin 03/23/18 03/23/18 03/23/18 04:11 04:20 13:10 Sodium 144 Potassium 3.5 Chloride 109 H Carbon Dioxide 26.9 Anion Gap 8 BUN 16 Creatinine 1.26 Estimated GFR 74 L POC Glucose 123 H 110 Random Glucose 105 Calcium 8.9 Total Bilirubin AST ALT Alkaline Phosphatase Total Protein Albumin Imaging: ITS Impressions Abdomen/Pelvis CT 02/17/18 00:00 CONCLUSION: 1. Small bilateral pleural effusions and bilateral lower lung opacity again seen. 2. Mild splenomegaly again seen. 3. Gastrostomy tube in place. 4. No evidence of bowel dilatation. 5. Heterotopic ossification about the left hip again seen. 6. Calcified adrenal glands again seen. 7. Enlarged inguinal lymph nodes again seen. Venous Doppler Study 02/18/18 00:00 CONCLUSION: 1. No DVT or SVT. 2. 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 This measures 3.6 x 2.2 x 2.2 cm and is predominantly thrombosed with a small, 6 x 9 mm patent component showing biphasic flow. Central Venous Line 02/22/18 00:00 CONCLUSION: 1. Uncomplicated tunneled central venous Power PICC line placement. 2. The PICC line can be used immediately. Foot MRI 02/22/18 00:00 CONCLUSION: 1. Findings most characteristic of early osteomyelitis at the medial aspect of the first metatarsal head and a tiny focus of probable osteomyelitis at the medial corner of the proximal phalanx great toe. Mild surrounding cellulitis. 2. Previous partial amputation fifth metatarsal. Extremity Arterial Study 02/26/18 00:00 CONCLUSION: 1. Normal ABIs bilaterally. Acuna Line Insertion 03/05/18 00:00 CONCLUSION: 1. Uncomplicated Acuna catheter placement as above. Head CT 03/11/18 08:30 CONCLUSION: 1. Stable sinus disease. 2. White matter disease and remote infarcts. . Abdomen X-Ray 03/13/18 12:21 CONCLUSION: Bilateral adrenal calcifications. Chest CT 03/16/18 12:58 CONCLUSION: 1. Persistent bilateral pleural effusions and areas of airspace consolidation and groundglass opacity. This process is overall significantly improved as compared to the exam of March 05, 2018 and slightly improved/stable from the exam of March 15, 2018. Findings are consistent with multifocal pneumonia versus severe respiratory distress secondary to pulmonary edema. 2. There is persistent left supraclavicular adenopathy as well as adenopathy within the mediastinum. Correlate with prior known history of malignancy. Tube Removal 03/18/18 00:00 CONCLUSION: 1. Uncomplicated Permcath removal. Chest X-Ray 03/22/18 06:00 CONCLUSION: 1. Interval removal of right-sided chest tube without pneumothorax. 2. Progressive bilateral lower lobe patchy airspace disease and small pleural effusions, left greater than right. Physical Exam: GENERAL: NAD SKIN: Warm and dry. HEAD: Atraumatic. Normocephalic. EYES: Pupils equal and round. No scleral icterus. No injection or drainage. ENT: No nasal bleeding or discharge. Mucous membranes pink and moist. CARDIOVASCULAR: Regular rate and rhythm. RESPIRATORY: No accessory muscle use. Diffuse rhonchi to auscultation. Breath sounds equal bilaterally. GASTROINTESTINAL: Abdomen soft, non-tender, distended. Hepatic and splenic margins not palpable. PEG in place, large amount of liquid stool in dignicheild MUSCULOSKELETAL: Extremities without clubbing, cyanosis, or edema. No obvious deformities. B/l feet with dressings in place NEUROLOGICAL: awake, alert, communicates L side hemiplegia, contracted PSYCHIATRIC: unable to assess LINES: HIckmann in place L chest, site looks OK Assessment and Plan - Plan B/L foot osteomyelitis MRSA, on vancomycin - trough level too high Anemia likely 2/2 vanco Mild CEDRIC, likely 2/2 vanco - pt has 2 adverse effects from vancomycin so far, I will recommend to avoid vancomycin Aspiration PNA - growing ESBL + ? carbapenem R kleb pneumo, S to avycaz, colistin R zerbaxa previously MRSA and Proteus acute VDRF Diarreha, C.diff negative CEDRIC : GFR 80 today -no eos in urine Funguria C. glabrata candidemia ? source HIckmann: removed 2 D echo negative New issue: GNB bacteremia - still not ID'd cont AVYCAZ cont micufungin cont levaquin cont vancomycin to complete tx for MRSA osteo L foot repeat BC delia RN
--- NOTE | 2018-03-23 15:56 | P.PNCC ---
Subjective Subjective Remarks/Hospital Course: The patient is a 47-year-old male with a past medical history of a CVA with left -sided hemiparesis, hypertension, diabetes mellitus, anemia of chronic disease, CHF, dysphagia, status post PEG tube placement, depression, nonverbal, who was admitted under the hospitalist service on 02/17/2018 for acute on chronic anemia. In addition, the patient has a history of bilateral foot osteomyelitis. During his hospital course, he had worsening renal function with a creatinine of 1.74 this morning from 1.1 on admission. In addition, the patient was found hypernatremic with a sodium level of 156 and hyperkalemic with a potassium level 5.3. A halicat was called 2 days ago for shortness of breath, and this morning the patient had a PEA arrest. ACLS protocol was initiated and the patient received epinephrine x3, 2 amps of bicarbonate, and 1 amp of calcium and was subsequently intubated by myself with an ET tube 8.0 cm size. A chest x-ray post intubation showed diffuse bilateral pulmonary infiltrates. He was on NS at 100 mL an hour for the past 2 days. Also, he had a venous Doppler ultrasound on 02/18/2018, which showed no evidence of a DVT; however, it showed a pseudoaneurysm at the distal brachial artery measuring 3.6 x 2.2 x 2.2 cm, predominantly thrombosed; however, there was a small patent component with biphasic flow measuring 6 x 9 mm. A single lumen right PICC line was placed by interventional radiology on 02/22/2018. The patient also had an arterial Doppler ultrasound which was within normal. He was seen by Dr. Jensen from vascular surgery. In addition, the patient has been followed by podiatry and infectious disease. ABG postcode showed acute hypercapnic respiratory acidosis with a pH of 7.11, CO2 of 83, PaO2 of 99, bicarbonate 25, saturation 92% on PRVC mode, rate of 16, tidal volume 500, PEEP of 5, 100% FiO2, and I time 0.9. 03/06 Patient is sedated with Versed and Fenantl drips Levophed started overnight on 4 mics. Afebrile. Renal function worse this morning with C: 1.93 from 1.75 s/p transfusion 2U PRBC yesterday . 03/07: Remains sedated, arousable, orally intubated on mechanical ventilation. Sputum growing ESBL Klebsiella. 03/08 Patient remains intubated and Sedated with Fentanyl drip. Had T: 101 last night.Had an episode of hypoglycemia last night given D50 and placed on D10. 03/09 Patient remains sedated and intubated. T: 100 at 4 am. 03/10 Patient is intubated, sedated T:99.9. renal function is improving with Cr: 2.08 from 2.47 03/11 Patient remains intubated and sedated with Fentanyl drip. Afebrile. 03/12 Patient is off sedation intubated does not follow commands, afebrile. CT brain yesterday no acute findings. 03/13 Patient remains off sedation doesn't follow commands, T:100.3 last night. Renal function is improving with Cr: 1.47 from 1.65 03/14 Remains intubated, afebrile. TF om hold for emesis. Afebrile. 03/15 Patient remains intubated T:100.0 last night. 03/16: Patient remains intubated, sedated appears to follow some commands on sedation hold. Continues to have low-grade fever. Failed CPAP trial today due to severe tachypnea and low tidal volume. Chest x-ray shows worsening bilateral infiltrates/effusion. Will check CT to evaluate for infiltrate versus effusion. Also will increase Lasix to 40 mg every 12. 03/17: Remains intubated. T-max 100F. Opens eyes on sedation vacation. Failed CPAP 3 days due to apnea/tachypnea and low tidal problems. 03/18: Remains intubated off sedation. Now with worsening sepsis fever 100.9 T- max, candidemia on cultures from 03/15/2018. Growing yeast. Most likely source Acuna catheter on the right side. I have placed a left subclavian central line. IR to remove the Acuna catheter GILDA discussed with Dr. Paul. Continues to fail CPAP trial most likely needs tracheostomy if he fails to be in after draining the right pleural effusion 03/19: Failed CPAP again today due to low tidal volumes and tachypnea. Right chest tube placed yesterday with some 60 mL hemorrhagic effusion. Cultures remain negative today. Fungal blood culture with Nan glabrata, Acuna catheter removed yesterday after the left subclavian line was placed 03/20: Patient is status post trach yesterday currently more awake following commands on the right side. Minimal dose from the trach site has stopped. Ophthalmology consult appreciated no evidence of eye involvement from fungemia 03/21: Patient tolerated approximately 2 hours of T piece yesterday. Currently remains hemodynamically stable tolerating CPAP. Blood culture growing gram- negative serina from 03/18/18. Currently on Avycaz micafungin and Zyvox. We will start Levaquin to cover for stenotrophomonas ID following Subjective 03/22: off vent x 24h. doing ok on t-piece. denies complaints. 03/23: remains off vent x 48h. afebrile. blood cultures still have not speciated , but clinically improving. will need long-term rehab. Objective Vital Signs / I&O: Vital Signs 03/22/18 16:00 03/22/18 17:00 03/22/18 18:00 Temperature 37.3 C 36.8 C Pulse Rate 98 H 100 H 99 H Respiratory Rate 25 H 30 H 26 H Blood Pressure 138/85 141/84 H 138/87 Pulse Oximetry 100 100 100 03/22/18 19:00 03/22/18 20:00 03/22/18 21:00 Temperature Pulse Rate 107 H 100 H 98 H Respiratory Rate 12 19 15 Blood Pressure 132/84 132/86 132/87 Pulse Oximetry 100 100 100 03/22/18 22:00 03/22/18 23:00 03/22/18 23:01 Temperature Pulse Rate 114 H 102 H 102 H Respiratory Rate 15 28 H 19 Blood Pressure 138/91 H 126/81 Pulse Oximetry 100 100 100 03/23/18 00:00 03/23/18 00:48 03/23/18 01:00 Temperature 37.0 C Pulse Rate 100 H 101 H Respiratory Rate 15 16 Blood Pressure 125/83 119/76 Pulse Oximetry 100 100 100 03/23/18 02:00 03/23/18 03:00 03/23/18 03:47 Temperature 37.0 C Pulse Rate 101 H 100 H Respiratory Rate 23 31 H Blood Pressure 117/73 114/73 Pulse Oximetry 100 100 99 03/23/18 04:00 03/23/18 06:00 03/23/18 08:00 Temperature 37.2 C Pulse Rate 100 H 100 H 95 H Respiratory Rate 25 H 21 Blood Pressure 116/75 117/79 Pulse Oximetry 100 100 03/23/18 10:00 03/23/18 12:00 03/23/18 14:00 Temperature 37.1 C Pulse Rate 96 H 98 H 109 H Respiratory Rate 21 Blood Pressure 127/76 Pulse Oximetry 100 Intake & Output 03/22/18 03/23/18 03/23/18 18:59 06:59 18:59 Intake Total 1226 / 1226 1221 / 1221 300 / 300 Output Total 1150 / 1150 400 / 400 Balance 76 / 76 821 / 821 300 / 300 Weight 76.9 kg Intake: IV 400 / 400 200 / 200 300 / 300 Avycaz Inj 2.5 GM In NS Inj 50 50 / 50 50 / 50 50 / 50 ML @ 25 mls/hr IV.SIG Q8H KRISTIE Rx#:[id number] Levaquin 750 mg Premix Inj 150 150 / 150 ML @ 100 mls/hr IV.SIG Q24H KRISTIE Rx#:[id number] Mycamine Inj 150 MG In NS Inj 100 / 100 100 ML @ 100 mls/hr IV.SIG Q24H KRISTIE Rx#:[id number] Vancomycin Inj 1,000 MG In NS 250 / 250 0 / 0 250 / 250 Inj 250 ML @ 250 mls/hr IV.SIG Q12H KRISTIE Rx#:[id number] Tube Feeding 426 / 426 621 / 621 Water Bolus Amount 400 / 400 400 / 400 Output: Urine 650 / 650 300 / 300 Stool 500 / 500 100 / 100 Other: # Incontinent Voids 3 Date of Last Bowel Movement 03/22/18 03/23/18 03/23/18 Result Diagrams: 03/23/18 04:20 03/23/18 04:20 Objective Remarks: GENERAL: Patient is 47 yo trached follows commands on right side. SKIN: Warm and dry. HEAD: Normocephalic. EYES: No scleral icterus. No injection or drainage. NECK: Supple, trachea midline. No JVD. New trach site with no active bleeding CARDIOVASCULAR: Regular rate and rhythm. sinus. RESPIRATORY: Breath sounds equal bilaterally. Basilar crackles and diminished breath sounds. GASTROINTESTINAL: Abdomen soft, non-tender, nondistended. + PEG tube MUSCULOSKELETAL: Trace bilateral lower edema. Neuro Off all sedation, follows commands on right side, flaccid on the left side. More awake today Assessment and Plan - Assessment and Plan Plan: ASSESSMENT: Acute respiratory failure- improving. S/p PEA arrest HCAP, aspiration pneumonia/Klebsiella ESBL positive sputum/MRSA Gram-negative bacteremia Fungemia, likely from infected Acuna catheter Sepsis Acute kidney injury. Large right pleural effusion status post pigtail catheter History CVA with left-sided hemiparesis. 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 Bilateral foot osteomyelitis methicillin-resistant Staphylococcus aureus. Hyperlipidemia Anemia of chronic inflammation Seizure disorder NOS Hypertension PLAN: Neuro: off sedation monitor neuro status on levetiracetam 500 mg t.i.d. for a history of seizures. CT brain 03/11: No acute findings. EEG: Mild slowing Pulm: s/p Tracheostomy 03/19 Dr. Miller/Dr. Meadows. Increase T piece time to 6-8 hours, CPAP at night Albuterol/ipratropium aerosols every 4 hours with albuterol aerosols every 2 hours as needed dyspnea, ICU vent bundle. s/p diagnostic US guided thoracentesis 40ml removed ( transudative fluid ) CT 03/16 performed with moderate right pleural effusion. Right pigtail chest tube placed 03/18/2018 with 760 mL drained, now removed Bronch with BAL 03/06 showed secretions L>R suctioned to clear, BAL performed LLL. BAL: Kleb pneumonia ESBL, Proteus Mirabilis, MRSA. Recent sputum session with MD resistant Klebsiella CV: Monitor HR and BP and maintain MAP> 65 mmHg. Echo showed EF 60-65% : Monitor renal function, I's and O's , electrolytes replacement per protocol Renal function stable. Continue with Free water 200 every 6 monitor sodium level Furosemide 40 mg daily-reduced to 20 due to increase in creat GI: On lansoprazole 30 mg daily. Nepro with goal rate 550ml/hr per nutrition's recommendations KUB 03/13: No obstructing bowel gas pattern. ID: Continue with abx (Avycaz, micafungin, Zyvox) ID is following. Blood culture from 03/18/2018 showing gram-negative rods, added Levaquin to cover for stenotrophomonas and additional gram-negative coverage New line placed 03/18/18, culture from same day. Unlikely to be new line related, but likely related to Acuna catheter 03/15 blood culture growing Nan glabrata IR removed Acuna 03/18/18 Sputum cx 03/13: MDR Klebsiella Urine cx: Nan Albicans 03/13 03/05 Sputum cx: ESBL Klebsiella BAL cx 03/06: Kleb pneumonia ESBL, Proteus Mirabilis, MRSA Wound culture growing MRSA from osteomyelitis site. Heme: Monitor CBC and coags. s/p transfusion 2u PRBC 03/05 heme occult negative Endo: SSI with Accu-Cheks for glycemic control. GI prophylaxis- On Prevacid DVT prophylaxis- SCD, heparin SQ held for anemia requiring blood transfusion. IV access: Left subclavian central line placed 03/18/2018. Acuna removed 2017: d/c CVL today. OVERALL IMPRESSION: some improvements in mental status. overall prognosis guarded. needs aggressive rehab. would be good LTAC candidate. stable for transfer out of ICU.
[2018-03-24] MEDS ORDERED: Pharmacy Ordered Lab Info OTHER ONE (00:45)
[2018-03-24 02:01] LABS: Calcium 8.8 mg/dL (8.5-10.1); Carbon Dioxide 28.5 meq/L (21.0-32.0); Potassium 3.8 meq/L (3.5-5.1)
[2018-03-24 02:02] LABS: Vancomycin,Trough 34.3 mcg/mL (5.0-10.0)
--- NOTE | 2018-03-24 05:57 | XR ---
EXAM DATE: 03/24/2018 5:26 AM EDT AGE/SEX: 47 years / Male INDICATIONS: Shortness of breath, possible pulmonary disease. CLINICAL DATA: This is the patient's subsequent encounter. Patient reports that signs and symptoms h ave been present for 1 week and indicates a pain score of Nonresponsive. MEDICAL/SURGICAL HISTORY: Cerebrovascular disease. Hypertension. Diabetes. Cardiovascular di sease. Anemia. CABG. COMPARISON: C, CHEST 1V SINGLE AP, 03/22/2018. . FINDINGS: Stable tracheostomy and left subclavian central line. Increasing pleural-parenchymal opacities in the right lower lung zone. Persistent pleural-parenchymal opacities in the left lower lung zone. Cardiom ediastinal contours are stable. Remainder of the exam is unchanged. CONCLUSION: 1. Worsening right-sided ayaji-jj-pldiwiph pleural effusion and associated airspace disease in the r ight lower lobe. 2. Persistent small left pleural effusion and associated airspace disease in the left lower lobe. Electronically signed by: Alan Young MD 03/24/2018 5:55 AM EDT
[2018-03-24 07:06] LABS: Hemoglobin 7.8 gm/dL (13.0-17.0); Mean Corpuscular HGB Conc 33.8 % (32.0-36.0); Mean Corpuscular Volume 88.8 fL (80.0-100.0); Mean Platelet Volume 7.7 fL (7.0-11.0); Platelet Count 257 th/mm3 (150-450); Red Blood Count 2.59 mil/mm3 (4.50-5.90); Red Cell Distribution Width 15.1 % (11.6-17.2)
[2018-03-24] MEDS: Insulin NovoLIN Regular Correctional Sugar Inj SQ SCH ×8 (08:04→23:49)
[2018-03-24] MEDS: Hypromellose 0.3% Opth Gel 10 GM Bottle EACH EYE SCH ×3 (08:07→23:18)
[2018-03-24] MEDS: Vancomycin Inj 1,000 MG in Sodium Chlor 0.9% Inj 250 ML IV.SIG SCH (08:09)
[2018-03-24] MEDS: Ceftazidime/Avibactam Inj 2.5 GM in Sodium Chlor 0.9% Inj 50 ML IV.SIG SCH ×3 (08:09→23:17)
[2018-03-24] MEDS: Senna/Docusate Sodium 8.6/50 MG Tablet G-TUBE SCH ×2 (08:49→23:19)
[2018-03-24] MEDS: levETIRAcetam 500 MG Tablet G-TUBE SCH ×3 (08:49→18:56)
[2018-03-24] MEDS: Ascorbic Acid 500 MG Tablet G-TUBE SCH ×2 (08:49→23:19)
--- NOTE | 2018-03-24 10:12 | P.PNIM ---
Subjective Interval history: Patient is not verbal this morning. Resting. Trache in place. Physical Exam Vital signs: Vital Signs 03/23/18 10:00 03/23/18 12:00 03/23/18 14:00 Temperature 98.8 F Pulse Rate 96 H 98 H 109 H Respiratory Rate 21 Blood Pressure 127/76 Pulse Oximetry 100 03/23/18 16:00 03/23/18 17:00 03/23/18 18:00 Temperature Pulse Rate 104 H 105 H 109 H Respiratory Rate 28 H 28 H 28 H Blood Pressure 119/71 123/72 141/66 H Pulse Oximetry 100 98 99 03/23/18 19:00 03/23/18 20:00 03/23/18 21:00 Temperature 98.5 F Pulse Rate 106 H 118 H 116 H Respiratory Rate 33 H 22 27 H Blood Pressure 128/75 153/104 H 141/85 H Pulse Oximetry 100 94 L 100 03/23/18 21:29 03/23/18 21:30 03/23/18 22:00 Temperature Pulse Rate 115 H 115 H Respiratory Rate 32 H 36 H Blood Pressure 126/73 Pulse Oximetry 100 99 03/23/18 23:00 03/24/18 00:00 03/24/18 01:00 Temperature 98.5 F Pulse Rate 114 H 109 H 107 H Respiratory Rate 24 35 H 36 H Blood Pressure 117/70 120/71 117/71 Pulse Oximetry 100 100 100 03/24/18 02:00 03/24/18 03:00 03/24/18 04:00 Temperature 99.2 F Pulse Rate 106 H 106 H 104 H Respiratory Rate 36 H 32 H 35 H Blood Pressure 118/71 121/71 110/73 Pulse Oximetry 100 100 100 03/24/18 05:00 03/24/18 06:00 03/24/18 07:00 Temperature Pulse Rate 110 H 107 H 107 H Respiratory Rate 25 H 37 H 24 Blood Pressure 137/83 122/74 126/76 Pulse Oximetry 100 99 98 03/24/18 08:00 03/24/18 09:00 Temperature 99.0 F Pulse Rate 117 H 114 H Respiratory Rate 34 H 23 Blood Pressure 131/79 127/75 Pulse Oximetry 99 98 Intake & Output 03/23/18 03/24/18 03/24/18 18:59 06:59 18:59 Intake Total 1375 / 1375 1133 / 1133 350 / 350 Output Total 1200 / 1200 600 / 600 Balance 175 / 175 533 / 533 350 / 350 Weight 76.8 kg Intake: IV 350 / 350 50 / 50 350 / 350 Avycaz Inj 2.5 GM In NS Inj 50 100 / 100 50 / 50 ML @ 25 mls/hr IV.SIG Q8H KRISTIE Rx#:[id number] Mycamine Inj 150 MG In NS Inj 100 / 100 100 ML @ 100 mls/hr IV.SIG Q24H KRISTIE Rx#:[id number] Vancomycin Inj 1,000 MG In NS 250 / 250 250 / 250 Inj 250 ML @ 250 mls/hr IV.SIG Q12H KRISTIE Rx#:[id number] Tube Feeding 625 / 625 683 / 683 Tube Irrigant 200 / 200 Water Bolus Amount 200 / 200 400 / 400 Output: Urine 1000 / 1000 400 / 400 Stool 200 / 200 200 / 200 Other: Date of Last Bowel Movement 03/23/18 Narrative: GENERAL: NAD, nonverbal due to tracheostomy. HEAD: Normocephalic. NECK: Supple, trachea midline. No lymphadenopathy. Tracheostomy present. EYES: No scleral icterus. No injection or drainage. CARDIOVASCULAR: Regular rate and rhythm without murmurs, gallops, or rubs. RESPIRATORY: Breath sounds equal bilaterally. No accessory muscle use. GASTROINTESTINAL: Abdomen soft, non-tender, nondistended. Tube feed in place. MUSCULOSKELETAL: No cyanosis, or edema. SKIN: Warm and dry. NEURO: No focal neurological deficits. - Urinary Catheter Management Indwelling Urethral Catheter Cath placed during this visit: yes Reason for continuing: Acute urinary retention Insertion date: 03/05/18 Insertion time: 08:00 Results - Labs CBC & Chem 7: 03/24/18 06:10 03/24/18 00:55 Laboratory Results - last 24 hr 03/23/18 03/23/18 03/24/18 13:10 21:20 00:55 WBC RBC Hgb Hct MCV MCH MCHC RDW Plt Count MPV Sodium 146 H Potassium 3.8 Chloride 109 H Carbon Dioxide 28.5 Anion Gap 9 BUN 22 H Creatinine 1.35 H Estimated GFR 69 L POC Glucose 110 134 H Random Glucose 142 H Calcium 8.8 Vancomycin Trough 34.3 H 03/24/18 03/24/18 03/24/18 01:19 04:51 06:10 WBC 6.0 RBC 2.59 L Hgb 7.8 L Hct 23.0 L MCV 88.8 MCH 30.0 MCHC 33.8 RDW 15.1 Plt Count 257 MPV 7.7 Sodium Potassium Chloride Carbon Dioxide Anion Gap BUN Creatinine Estimated GFR POC Glucose 149 H 134 H Random Glucose Calcium Vancomycin Trough 03/24/18 08:48 WBC RBC Hgb Hct MCV MCH MCHC RDW Plt Count MPV Sodium Potassium Chloride Carbon Dioxide Anion Gap BUN Creatinine Estimated GFR POC Glucose 140 H Random Glucose Calcium Vancomycin Trough Microbiology 03/18/18 04:20 Blood - Peripheral Aerobic Blood Culture - Preliminary gram negative rods Yeast species 03/18/18 04:20 Blood - Peripheral Anaerobic Blood Culture - Final No growth in 5 days 03/18/18 06:15 Blood - Peripheral Aerobic Blood Culture - Final No growth in 5 days 03/18/18 06:15 Blood - Peripheral Anaerobic Blood Culture - Final No growth in 5 days - Imaging Impressions Chest X-Ray 03/24/18 00:00 CONCLUSION: 1. Worsening right-sided gckpb-vo-qtizpiov pleural effusion and associated airspace disease in the right lower lobe. 2. Persistent small left pleural effusion and associated airspace disease in the left lower lobe. Assessment and Plan - Assessment (1) Acute on chronic anemia Code(s): D64.9 - Anemia, unspecified Status: Acute (2) Anemia of chronic disorder Code(s): D63.8 - Anemia in other chronic diseases classified elsewhere Status : Acute (3) Pseudoaneurysm of brachial artery Code(s): I72.1 - Aneurysm of artery of upper extremity Status: Acute (4) Osteomyelitis Code(s): M86.9 - Osteomyelitis, unspecified Status: Acute (5) Diabetes Code(s): E11.9 - Type 2 diabetes mellitus without complications Status: Acute - Plan 47-year-old male admitted initially with rectal bleeding and acute blood loss anemia status post PEA arrest with respiratory failure, now with tracheostomy. Bacteremia and fungemia were contributory. No acute changes overnight. Transfer out of ICU. Chronic respiratory failure Tracheostomy Continue tracheostomy maintenance Pulmonology following HCAP Aspiration pneumonia Klebsiella pneumonia Bilateral foot osteomyelitis MRSA osteomyelitis Bacteremia Fungemia Sepsis Continue to monitor cultures ID following Continue Levaquin, Avycaz, micafungin, Zyvox History of CVA Chronic left-sided hemiparesis Supportive care Right distal brachial artery pseudoaneurysm Measurement 3.6 X2.2X 2.2 cm All clinically Large right pleural effusion Pigtail catheter was placed Acute kidney injury Resolved Monitor renal function Status post PEA arrest Follow on telemetry Follow clinically Echo showed EF 60-65% Hyperlipidemia Continue present treatment Follow as an outpatient Seizure disorder Continue Keppra Follow clinically Hypertension Continue baseline treatment Follow blood pressures Adjust treatments as needed Dysphagia Tube feed Continue tube feeds and monitor Anemia Anemia of chronic disease Follow CBC And she is again if needed DVT prophylaxis SCDs No systemic anticoagulation due to recent bleed with transfusion Discharge planning Long-term care facility anticipated History: New line placed 03/18/18, culture from same day. Unlikely to be new line related, but likely related to Acuna catheter 03/15 blood culture growing Nan glabrata IR removed Acuna 03/18/18 Sputum cx 03/13: MDR Klebsiella Urine cx: Nan Albicans 03/13 03/05 Sputum cx: ESBL Klebsiella BAL cx 03/06: Kleb pneumonia ESBL, Proteus Mirabilis, MRSA Wound culture growing MRSA from osteomyelitis site.
--- NOTE | 2018-03-24 12:42 | P.DIET ---
Nutritional Evaluation Type of nutrition evaluation: follow-up Nutrition consult regarding: Tube Feeding Nutrition screening: [facility] [place] (pt has PEG) Objective - Diagnosis Anemia, Rectal Bleeding - Objective % IBW: 114 (IBW = 172#) Body Weight Used for Calculations: Actual (89.5 kg) Energy Needs - Lower Range (kCal/kg): 25 Energy Needs - Upper Range (kCal/kg): 30 Lower Limit kCal/kg (kCals): 2,238 Upper Limit kCal/kg (kCals): 2,685 Lower Limit Protein Factor (Grams per Kg): 1.0 Upper Limit Protein Factor (Grams per Kg): 1.5 Lower Protein Needs (Protein): 90 Upper Protein Needs (Protein): 134 Fluid Factor (ml/kg): 30 Estimated Fluid Needs (ml): 2,685 Dietitian Reviewed in Medical Record: Curent medications, Intake & Output, Labs , Medical history, Tube feeding, Wound/DTI Diet Order: TF'ing Wound Care Note: L and R foot pressure injury per Nurse's Wound Assessment dated 03/23 Objective Comments: PMH Includes: DM, HTN, chronic anemia, chronic pain, hemiparesis secondary to right-sided CVA, CHF, Dysphagia w/feeding tube placement, psychiatric DO, depression, hyperlipidemia Feeding - Current Tube Feeding Tube Feeding Product: Glucerna 1.5 Tube Feeding Rate: 65 Current kCals Provided by Tube Feedin,340 Current Protein Provided by Tube Feeding (gPRO): 129 Current Free H2O Provided (m/l): 1,184 Assessment Assessment: Pt continues at high nutrition risk r/t his dependence on TF'ing to meet nutritional needs. TF Glucerna 1.5 is at goal rate of 65 mls/hr which is adequate to meet pt's nutritional needs. Pt s/p trach 03/19 and is tolerating T- piece. Labs, wts and clinical course reviewed. Recommendations: Glucerna 1.5 @ 65 mls/hr goal Dietitian to Monitor: Lab values, Renal labs, Glucose level, Intake & Output, Tube feeding tolerance, Weight change, Wound/skin status, Medical course
[2018-03-24] MEDS: Micafungin Inj 150 MG in Sodium Chlor 0.9% Inj 100 ML IV.SIG SCH (13:30)
--- NOTE | 2018-03-24 14:31 | P.PN ---
Subjective Interval history: He is more alert and doing well on T Bar at 28 % Trach site clear. Physical Exam Vital signs: Vital Signs 03/23/18 16:00 03/23/18 17:00 03/23/18 18:00 Temperature Pulse Rate 104 H 105 H 109 H Respiratory Rate 28 H 28 H 28 H Blood Pressure 119/71 123/72 141/66 H Pulse Oximetry 100 98 99 03/23/18 19:00 03/23/18 20:00 03/23/18 21:00 Temperature 98.5 F Pulse Rate 106 H 118 H 116 H Respiratory Rate 33 H 22 27 H Blood Pressure 128/75 153/104 H 141/85 H Pulse Oximetry 100 94 L 100 03/23/18 21:29 03/23/18 21:30 03/23/18 22:00 Temperature Pulse Rate 115 H 115 H Respiratory Rate 32 H 36 H Blood Pressure 126/73 Pulse Oximetry 100 99 03/23/18 23:00 03/24/18 00:00 03/24/18 01:00 Temperature 98.5 F Pulse Rate 114 H 109 H 107 H Respiratory Rate 24 35 H 36 H Blood Pressure 117/70 120/71 117/71 Pulse Oximetry 100 100 100 03/24/18 02:00 03/24/18 03:00 03/24/18 04:00 Temperature 99.2 F Pulse Rate 106 H 106 H 104 H Respiratory Rate 36 H 32 H 35 H Blood Pressure 118/71 121/71 110/73 Pulse Oximetry 100 100 100 03/24/18 05:00 03/24/18 06:00 03/24/18 07:00 Temperature Pulse Rate 110 H 107 H 107 H Respiratory Rate 25 H 37 H 24 Blood Pressure 137/83 122/74 126/76 Pulse Oximetry 100 99 98 03/24/18 08:00 03/24/18 09:00 03/24/18 10:00 Temperature 99.0 F Pulse Rate 117 H 114 H 105 H Respiratory Rate 34 H 23 15 Blood Pressure 131/79 127/75 122/71 Pulse Oximetry 99 98 99 03/24/18 11:00 03/24/18 12:00 Temperature 99.0 F Pulse Rate 111 H 107 H Respiratory Rate 36 H 23 Blood Pressure 120/74 Pulse Oximetry 98 100 Intake & Output 03/23/18 03/24/18 03/24/18 18:59 06:59 18:59 Intake Total 1375 / 1375 1133 / 1133 450 / 450 Output Total 1200 / 1200 600 / 600 Balance 175 / 175 533 / 533 450 / 450 Weight 76.8 kg Intake: IV 350 / 350 50 / 50 450 / 450 Avycaz Inj 2.5 GM In NS Inj 50 100 / 100 50 / 50 100 / 100 ML @ 25 mls/hr IV.SIG Q8H KRISTIE Rx#:[id number] Mycamine Inj 150 MG In NS Inj 100 / 100 100 ML @ 100 mls/hr IV.SIG Q24H KRISTIE Rx#:[id number] Vancomycin Inj 1,000 MG In NS 250 / 250 250 / 250 Inj 250 ML @ 250 mls/hr IV.SIG Q12H KRISTIE Rx#:[id number] Tube Feeding 625 / 625 683 / 683 Tube Irrigant 200 / 200 Water Bolus Amount 200 / 200 400 / 400 Output: Urine 1000 / 1000 400 / 400 Stool 200 / 200 200 / 200 Other: Date of Last Bowel Movement 03/23/18 Narrative: GENERAL: NAD, Mid aged A/A male. HEAD: Normocephalic. NECK: Supple, trachea midline. No lymphadenopathy. Tracheostomy present. EYES: No scleral icterus. No injection or drainage. CARDIOVASCULAR: Regular rate and rhythm without murmurs, gallops, or rubs. RESPIRATORY: Breath sounds equal bilaterally.Occ basal crackles. No accessory muscle use. GASTROINTESTINAL: Abdomen soft, non-tender, nondistended. Tube feed in place. MUSCULOSKELETAL: No cyanosis, or edema. SKIN: Warm and dry. NEURO: has weakness of legs - Urinary Catheter Management Indwelling Urethral Catheter Cath placed during this visit: yes Reason for continuing: Acute urinary retention Insertion date: 03/05/18 Insertion time: 08:00 Results - Labs CBC & Chem 7: 03/24/18 06:10 03/24/18 00:55 Laboratory Results - last 24 hr 03/23/18 03/24/18 03/24/18 21:20 00:55 01:19 WBC RBC Hgb Hct MCV MCH MCHC RDW Plt Count MPV Sodium 146 H Potassium 3.8 Chloride 109 H Carbon Dioxide 28.5 Anion Gap 9 BUN 22 H Creatinine 1.35 H Estimated GFR 69 L POC Glucose 134 H 149 H Random Glucose 142 H Calcium 8.8 Vancomycin Trough 34.3 H 0903/24/18 03/24/18 04:51 06:10 08:48 WBC 6.0 RBC 2.59 L Hgb 7.8 L Hct 23.0 L MCV 88.8 MCH 30.0 MCHC 33.8 RDW 15.1 Plt Count 257 MPV 7.7 Sodium Potassium Chloride Carbon Dioxide Anion Gap BUN Creatinine Estimated GFR POC Glucose 134 H 140 H Random Glucose Calcium Vancomycin Trough 03/24/18 11:16 WBC RBC Hgb Hct MCV MCH MCHC RDW Plt Count MPV Sodium Potassium Chloride Carbon Dioxide Anion Gap BUN Creatinine Estimated GFR POC Glucose 162 H Random Glucose Calcium Vancomycin Trough Microbiology 03/18/18 04:20 Blood - Peripheral Aerobic Blood Culture - Preliminary gram negative rods Yeast species 03/18/18 04:20 Blood - Peripheral Anaerobic Blood Culture - Final No growth in 5 days 03/23/18 16:47 Blood - Peripheral Aerobic Blood Culture - Preliminary No growth in 1 day 03/23/18 16:47 Blood - Peripheral Anaerobic Blood Culture - Preliminary No growth in 1 day 03/23/18 16:40 Blood - Peripheral Aerobic Blood Culture - Preliminary No growth in 1 day 03/23/18 16:40 Blood - Peripheral Anaerobic Blood Culture - Preliminary No growth in 1 day 03/18/18 06:15 Blood - Peripheral Aerobic Blood Culture - Final No growth in 5 days 03/18/18 06:15 Blood - Peripheral Anaerobic Blood Culture - Final No growth in 5 days - Imaging Impressions Chest X-Ray 03/24/18 00:00 CONCLUSION: 1. Worsening right-sided [id number] pleural effusion and associated airspace disease in the right lower lobe. 2. Persistent small left pleural effusion and associated airspace disease in the left lower lobe. Assessment and Plan - Assessment (1) Gram negative sepsis Code(s): A41.50 - Gram-negative sepsis, unspecified Status: Acute (2) Tracheostomy in place Code(s): Z93.0 - Tracheostomy status Status: Acute (3) End stage renal disease Code(s): N18.6 - End stage renal disease Status: Acute (4) GI bleed Code(s): K92.2 - Gastrointestinal hemorrhage, unspecified Status: Acute (5) Anemia Code(s): D64.9 - Anemia, unspecified Status: Acute (6) Osteomyelitis Code(s): M86.9 - Osteomyelitis, unspecified Status: Acute (7) Diabetes Code(s): E11.9 - Type 2 diabetes mellitus without complications Status: Acute (8) Anemia of chronic disorder Code(s): D63.8 - Anemia in other chronic diseases classified elsewhere Status : Acute (9) Acute on chronic anemia Code(s): D64.9 - Anemia, unspecified Status: Acute (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 Code(s): I72.1 - Aneurysm of artery of upper extremity Status: Acute (11) Osteomyelitis of ankle and foot Code(s): M86.9 - Osteomyelitis, unspecified Status: Acute (12) Acute kidney injury Code(s): N17.9 - Acute kidney failure, unspecified Status: Acute (13) Hypernatremia Code(s): E87.0 - Hyperosmolality and hypernatremia Status: Acute (14) Fungemia Code(s): B49 - Unspecified mycosis Status: Acute (15) Nonproliferative diabetic retinopathy of both eyes Code(s): E11.3293 - Type 2 diabetes mellitus with mild nonproliferative diabetic retinopathy without macular edema, bilateral Status: Acute (16) Gastrostomy tube in place Code(s): Z93.1 - Gastrostomy status Status: Acute (17) Pleural effusion Code(s): J90 - Pleural effusion, not elsewhere classified Status: Acute - Plan 1. Cont T bar at 28 % FIo2 2. Trach lavage suction PRN 3. Antibiotics per ID 4. Duonebs qid. 5. PT evaluation 6. CPAP 5/12 at HS if he desats <90 7. D/C trach sutures. 8. Transfer to [facility]
[2018-03-25] MEDS: Ceftazidime/Avibactam Inj 2.5 GM in Sodium Chlor 0.9% Inj 50 ML IV.SIG SCH ×3 (04:40→19:34)
[2018-03-25] MEDS: Insulin NovoLIN Regular Correctional Sugar Inj SQ SCH ×5 (04:40→20:50)
[2018-03-25 07:56] LABS: Baso % (Auto) 0.7 % (0.0-2.0); Eos # (Auto) 0.3 th/mm3 (0.0-0.4); Eos % (Auto) 5.3 % (0.0-4.0); Hematocrit 25.9 % (39.0-51.0); Hemoglobin 8.7 gm/dL (13.0-17.0); Lymph # (Auto) 1.6 th/mm3 (1.0-4.8); Lymph % (Auto) 26.8 % (9.0-44.0); Mean Corpuscular HGB Conc 33.5 % (32.0-36.0); Mean Corpuscular Volume 89.6 fL (80.0-100.0); Mean Platelet Volume 7.8 fL (7.0-11.0); Mono # (Auto) 0.6 th/mm3 (0.0-0.9); Neut # (Auto) 3.3 th/mm3 (1.8-7.7); Neut % (Auto) 56.2 % (16.0-70.0); Platelet Count 268 th/mm3 (150-450); Red Blood Count 2.89 mil/mm3 (4.50-5.90); Red Cell Distribution Width 15.6 % (11.6-17.2); White Blood Count 5.8 th/mm3 (4.0-11.0)
[2018-03-25 08:14] LABS: Albumin 2.1 g/dL (3.4-5.0); Anion Gap 9 meq/L (5-15); Aspartate Aminotransferase 27 U/L (15-37); Blood Urea Nitrogen 26 mg/dL (7-18); Calcium 8.9 mg/dL (8.5-10.1); Carbon Dioxide 24.7 meq/L (21.0-32.0); Chloride 110 meq/L (98-107); Glomerular Filtration Rate 68 mL/min (>89); Glucose,Random 121 mg/dL (74-106); Potassium 4.1 meq/L (3.5-5.1); Sodium 144 meq/L (136-145)
[2018-03-25 08:16] LABS: Alanine Aminotransferase 19 U/L (12-78)
[2018-03-25 08:18] LABS: Alkaline Phosphatase 125 U/L (45-117); Total Protein 7.9 g/dL (6.4-8.2); Vancomycin,Random 17.4 Comment
[2018-03-25] MEDS: Ascorbic Acid 500 MG Tablet G-TUBE SCH ×2 (09:13→20:51)
[2018-03-25] MEDS: Senna/Docusate Sodium 8.6/50 MG Tablet G-TUBE SCH ×2 (09:13→20:52)
[2018-03-25] MEDS: levETIRAcetam 500 MG Tablet G-TUBE SCH ×3 (09:13→18:00)
[2018-03-25] MEDS: Hypromellose 0.3% Opth Gel 10 GM Bottle EACH EYE SCH ×2 (09:14→22:02)
--- NOTE | 2018-03-25 15:03 | P.PNONC ---
Subjective Interval history: Afebrile. Patient has been downgraded to telemetry unit. Sleeping on approach, opens his eyes to voice momentarily. Objective Vital Signs/Intake & Output: Vital Signs 03/24/18 15:00 03/24/18 16:00 03/24/18 20:00 Temperature 98.9 F 98.7 F Pulse Rate 111 H 104 H 109 H Respiratory Rate 40 H 21 34 H Blood Pressure 128/78 134/79 Pulse Oximetry 100 100 95 03/25/18 00:00 03/25/18 04:00 03/25/18 08:00 Temperature 98.4 F 99.1 F 99.3 F Pulse Rate 111 H 100 H 104 H Respiratory Rate 22 20 18 Blood Pressure 128/78 131/76 136/87 Pulse Oximetry 97 95 96 03/25/18 09:00 03/25/18 10:00 03/25/18 12:00 Temperature 98.7 F Pulse Rate 104 H 104 H Respiratory Rate 16 Blood Pressure 160/92 H Pulse Oximetry 97 95 03/25/18 14:00 Temperature Pulse Rate 106 H Respiratory Rate Blood Pressure Pulse Oximetry Intake & Output 03/24/18 03/25/18 03/25/18 18:59 06:59 18:59 Intake Total 1595 / 1595 340 / 340 50 / 50 Output Total 950 / 950 Balance 645 / 645 340 / 340 50 / 50 Weight 76.8 kg Intake: IV 700 / 700 100 / 100 50 / 50 Avycaz Inj 2.5 GM In NS Inj 50 100 / 100 100 / 100 50 / 50 ML @ 25 mls/hr IV.SIG Q8H KRISTIE Rx#:[id number] Levaquin 750 mg Premix Inj 150 150 / 150 ML @ 100 mls/hr IV.SIG Q24H KRISTIE Rx#:[id number] Mycamine Inj 150 MG In NS Inj 200 / 200 100 ML @ 100 mls/hr IV.SIG Q24H KRISTIE Rx#:[id number] Vancomycin Inj 1,000 MG In NS 250 / 250 Inj 250 ML @ 250 mls/hr IV.SIG Q12H KRISTIE Rx#:[id number] Oral 240 / 240 Tube Feeding 695 / 695 Water Bolus Amount 200 / 200 Output: Urine 650 / 650 Stool 300 / 300 Other: # Voids 3 # Incontinent Voids 2 Date of Last Bowel Movement 03/24/18 Result Diagrams: 03/26/18 07:10 03/26/18 07:40 Laboratory Results: Laboratory Results - last 24 hr 03/24/18 03/25/18 03/25/18 15:26 06:40 06:40 WBC 5.8 RBC 2.89 L Hgb 8.7 L Hct 25.9 L MCV 89.6 MCH 30.0 MCHC 33.5 RDW 15.6 Plt Count 268 MPV 7.8 Neut % (Auto) 56.2 Lymph % (Auto) 26.8 [place] % (Auto) 11.0 H Eos % (Auto) 5.3 H Baso % (Auto) 0.7 Neut # (Auto) 3.3 Lymph # (Auto) 1.6 [place] # (Auto) 0.6 Eos # (Auto) 0.3 Baso # (Auto) 0.0 WBC Differential . Differential Comment Auto diff final Sodium 144 Potassium 4.1 Chloride 110 H Carbon Dioxide 24.7 Anion Gap 9 BUN 26 H Creatinine 1.36 H Estimated GFR 68 L POC Glucose 167 H Random Glucose 121 H Calcium 8.9 Total Bilirubin 0.3 AST 27 ALT 19 Alkaline Phosphatase 125 H Total Protein 7.9 Albumin 2.1 L Random Vancomycin 17.4 03/25/18 11:28 WBC RBC Hgb Hct MCV MCH MCHC RDW Plt Count MPV Neut % (Auto) Lymph % (Auto) [place] % (Auto) Eos % (Auto) Baso % (Auto) Neut # (Auto) Lymph # (Auto) [place] # (Auto) Eos # (Auto) Baso # (Auto) WBC Differential Differential Comment Sodium Potassium Chloride Carbon Dioxide Anion Gap BUN Creatinine Estimated GFR POC Glucose 188 H Random Glucose Calcium Total Bilirubin AST ALT Alkaline Phosphatase Total Protein Albumin Random Vancomycin Culture Results: Microbiology 03/18/18 09:55 Fungal Smear - Final Fluid - Pleural fluid No fungal elements seen Fungal Culture - Preliminary No growth in 1 week 03/18/18 09:55 Acid Fast Bacilli Smear - Final Fluid - Pleural fluid No acid fast bacilli seen Mycobacterial Culture - Preliminary No growth in 1 week 03/23/18 16:47 Aerobic Blood Culture - Preliminary Blood - Peripheral No growth in 2 days Anaerobic Blood Culture - Preliminary No growth in 2 days 03/23/18 16:40 Aerobic Blood Culture - Preliminary Blood - Peripheral No growth in 2 days Anaerobic Blood Culture - Preliminary No growth in 2 days 03/18/18 04:20 Aerobic Blood Culture - Preliminary Blood - Peripheral gram negative rods Yeast species Anaerobic Blood Culture - Final No growth in 5 days 03/18/18 06:15 Aerobic Blood Culture - Final Blood - Peripheral No growth in 5 days Anaerobic Blood Culture - Final No growth in 5 days Medications: Active Medications Generic Name Dose Route Start Last Admin Trade Name Freq PRN Reason Stop Dose Admin Albuterol 2.5 mg 03/17/18 10:15 03/23/18 21:29 Albuterol Neb (Prn) NEB 2.5 mg Q2HR NEB PRN Administration DYSPNEA Amlodipine Besylate 10 mg 02/20/18 09:00 03/05/18 09:12 Norvasc G-TUBE Not Given DAILY KRISTIE Artificial Tears 1 drops 03/17/18 21:00 03/25/18 09:14 Genteal Severe Dry Eye Relief 0.3% Opth Gel EACH EYE 1 drops BID KRISTIE Administration Ascorbic Acid 500 mg 02/19/18 08:13 03/25/18 09:13 Vitamin C G-TUBE 500 mg BID KRISTIE Administration Atorvastatin Calcium 10 mg 02/17/18 21:00 03/24/18 23:18 Lipitor G-TUBE 10 mg HS KRISTIE Administration Carvedilol 25 mg 02/17/18 13:00 03/05/18 09:11 Coreg G-TUBE Not Given BID KRISTIE Dextrose 50 ml 02/17/18 11:23 03/14/18 05:02 D50w Vial IV.PUSH 50 ml UNSCH PRN Administration PER HYPOGLYCEMIA PROTOCOL Escitalopram Oxalate 15 mg 02/19/18 08:19 03/06/18 08:05 Lexapro G-TUBE 15 mg DAILY KRISTIE Administration Furosemide 20 mg 03/20/18 13:45 03/25/18 09:14 Lasix Inj IV.PUSH 20 mg DAILY KRISTIE Administration Heparin Sodium (Porcine) 5,000 units 02/21/18 21:00 03/05/18 09:25 Heparin Inj SQ 5,000 units Q12HR KRISTIE Administration Hydralazine HCl 100 mg 02/19/18 08:19 03/05/18 09:11 Apresoline G-TUBE Not Given TID KRISTIE Potassium Chloride 40 meq in 100 mls @ 25 mls/hr 03/13/18 14:59 03/17/18 15: 46 Kcl 40 Meq Premix Inj IV.SIG Infused Q2H PRN Infusion For Potassium 2.8 - 3.2 mEq/L Potassium Chloride 20 meq in 100 mls @ 50 mls/hr 03/13/18 14:59 03/14/18 20: 05 Kcl 20 Meq Premix Inj IV.SIG Infused Q2H PRN Infusion For Potassium 3.3 - 3.5 mEq/L Potassium Chloride 40 meq in 100 mls @ 25 mls/hr 03/13/18 14:59 03/19/18 12: 47 Kcl 40 Meq Premix Inj IV.SIG Infused UNSCH PRN Infusion For Potassium 3.3 - 3.5 mEq/L Potassium Chloride 20 meq in 100 mls @ 50 mls/hr 03/13/18 14:59 03/18/18 02: 14 Kcl 20 Meq Premix Inj IV.SIG Infused Q2H PRN Infusion For Potassium 2.8 - 3.2 mEq/L Ceftazidime/Avibactam 2.5 gm/ 50 mls @ 25 mls/hr 03/15/18 20:00 03/25/18 13: 45 Sodium Chloride IV.SIG Infused Q8H KRISTIE Infusion Micafungin Sodium 150 mg/ 100 mls @ 100 mls/hr 03/17/18 14:00 03/24/18 17:40 Sodium Chloride IV.SIG Infused Q24H KRISTIE Infusion Levofloxacin/Dextrose 150 mls @ 100 mls/hr 03/21/18 16:00 03/24/18 17:40 Levaquin 750 Mg Premix Inj IV.SIG Infused Q24H KRISTIE Infusion Fluconazole 200 mls @ 100 mls/hr 03/25/18 12:00 03/25/18 13:45 Diflucan 400 Mg Premix Bag IV.SIG 100 mls/hr Q24H KRISTIE Administration Insulin Human Regular 0 units 03/05/18 12:00 03/25/18 11:42 Novolin R Correctional Sugar Inj SQ 1 units Q4HR KRISTIE Administration Protocol Lansoprazole 30 mg 02/20/18 09:00 03/25/18 09:13 Prevacid Solutab NG/OG 30 mg DAILY KRISTIE Administration Levetiracetam 500 mg 02/19/18 08:19 03/25/18 13:05 Keppra G-TUBE 500 mg TID KRISTIE Administration Ondansetron HCl 4 mg 02/17/18 06:46 03/14/18 20:06 Zofran Inj IV.PUSH 4 mg Q6H PRN Administration NAUSEA OR VOMITING Potassium Bicarb/Potassium Chloride 50 meq 03/13/18 14:59 03/19/18 20:29 K-Lyte Cl Eff PO 50 meq UNSCH PRN Administration For Potassium 3.3 - 3.5 mEq/L Senna/Docusate Sodium 1 tab 02/19/18 08:19 03/25/18 09:13 Jessie-Colace G-TUBE Not Given BID KRISTIE Sterile Water 200 ml 03/15/18 12:00 03/25/18 11:43 Free Water G-TUBE 200 ml Q6HR KRISTIE Administration Objective Remarks: GENERAL: Chronically ill-appearing male patient, in no acute distress. Sleeping on approach, opens eyes momentarily. SKIN: Warm. HEAD: Normocephalic. EYES: No scleral icterus. No injection or drainage. NECK: Supple, trachea midline. +Trach. Humidified air to trach. CARDIOVASCULAR: Regular rate and rhythm without murmurs. RESPIRATORY: Anterior breath sounds scattered rhonchi, equal bilaterally. No accessory muscle use. GASTROINTESTINAL: Abdomen soft, non-tender, nondistended. EXTREMITIES: No cyanosis, or edema. Support boots to BLE. MUSCULOSKELETAL: Decreased muscle tone. NEUROLOGICAL: Opens eyes momentarily, not answering questions. Assessment/Plan (1) End stage renal disease Code(s): N18.6 - End stage renal disease Status: Acute (2) GI bleed Code(s): K92.2 - Gastrointestinal hemorrhage, unspecified Status: Acute (3) Anemia Code(s): D64.9 - Anemia, unspecified Status: Acute (4) Osteomyelitis Code(s): M86.9 - Osteomyelitis, unspecified Status: Acute (5) Diabetes Code(s): E11.9 - Type 2 diabetes mellitus without complications Status: Acute (6) Anemia of chronic disorder Code(s): D63.8 - Anemia in other chronic diseases classified elsewhere Status : Acute (7) Acute on chronic anemia Code(s): D64.9 - Anemia, unspecified Status: Acute (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 He is on a ventilator. He has undergone cardiac arrest. Status post ACLS protocol. He was successfully resuscitated. He has respiratory failure. He has osteomyelitis of the foot. He also has sepsis and pneumonia. He has candiduria. He is currently on multiple antibiotics. He has a history of stroke and chronic anemia. He developed acute on chronic anemia. He has acute on chronic kidney disease. During the course of his workup serum protein electrophoresis and immunoelectrophoresis was performed. These tests were interpreted as abnormal and hematology has been consulted to make further recommendations: Plan: 1. Serum protein electrophoresis results consistent with inflammation/reactive process. Immunoelectrophoresis, no monoclonal protein identified. 2. Anemia, likely secondary to inflammation, increased to 8.7 today. 3. Sepsis, pneumonia and osteomyelitis. Management per attending and infectious disease, currently on multiple antibiotics. Blood cultures from 03/18 are growing gram-negative bacteria, sensitivity pending. 4. Adenopathy noted on CT scan. Plan to repeat CT chest this week to reevaluate supraclavicular adenopathy. 5. Continue supportive care. - Attending Statement Patient seen in hospital after nurse practitioner's visit. Agree with management.
[2018-03-25] MEDS: Vancomycin Inj 1,000 MG in Sodium Chlor 0.9% Inj 250 ML IV.SIG SCH (15:51)
--- NOTE | 2018-03-25 15:57 | P.PNIM ---
Subjective Interval history: Patient more oriented today, but nonverbal due to trache. No distress. Report of candidiasis at bilateral groins. Physical Exam Vital signs: Vital Signs 03/24/18 16:00 03/24/18 20:00 03/25/18 00:00 Temperature 98.9 F 98.7 F 98.4 F Pulse Rate 104 H 109 H 111 H Respiratory Rate 21 34 H 22 Blood Pressure 128/78 134/79 128/78 Pulse Oximetry 100 95 97 03/25/18 04:00 03/25/18 08:00 03/25/18 09:00 Temperature 99.1 F 99.3 F Pulse Rate 100 H 104 H Respiratory Rate 20 18 Blood Pressure 131/76 136/87 Pulse Oximetry 95 96 97 03/25/18 10:00 03/25/18 12:00 03/25/18 14:00 Temperature 98.7 F Pulse Rate 104 H 104 H 106 H Respiratory Rate 16 Blood Pressure 160/92 H Pulse Oximetry 95 Intake & Output 03/24/18 03/25/18 03/25/18 18:59 06:59 18:59 Intake Total 1595 / 1595 340 / 340 250 / 250 Output Total 950 / 950 Balance 645 / 645 340 / 340 250 / 250 Weight 76.8 kg Intake: IV 700 / 700 100 / 100 250 / 250 Avycaz Inj 2.5 GM In NS Inj 50 100 / 100 100 / 100 50 / 50 ML @ 25 mls/hr IV.SIG Q8H KRISTIE Rx#:[id number] Diflucan 400 mg Premix Bag 200 200 / 200 ML @ 100 mls/hr IV.SIG Q24H KRISTIE Rx#:[id number] Levaquin 750 mg Premix Inj 150 150 / 150 ML @ 100 mls/hr IV.SIG Q24H KRISTIE Rx#:[id number] Mycamine Inj 150 MG In NS Inj 200 / 200 100 ML @ 100 mls/hr IV.SIG Q24H KRISTIE Rx#:[id number] Vancomycin Inj 1,000 MG In NS 250 / 250 Inj 250 ML @ 250 mls/hr IV.SIG Q12H KRISTIE Rx#:[id number] Oral 240 / 240 Tube Feeding 695 / 695 Water Bolus Amount 200 / 200 Output: Urine 650 / 650 Stool 300 / 300 Other: # Voids 3 # Incontinent Voids 2 Date of Last Bowel Movement 03/24/18 Narrative: GENERAL: NAD, A&Ox0, nonverbal HEAD: Normocephalic. NECK: Supple, trachea midline. No lymphadenopathy. Tracheostomy present. EYES: No scleral icterus. No injection or drainage. CARDIOVASCULAR: Regular rate and rhythm without murmurs, gallops, or rubs. RESPIRATORY: Breath sounds equal bilaterally. No accessory muscle use. GASTROINTESTINAL: Abdomen soft, non-tender, nondistended. No erythema at tube feed site. MUSCULOSKELETAL: No cyanosis, or edema. SKIN: Warm and dry. Bilateral Groin candidiasis. NEURO: Global neurological deficits. - Urinary Catheter Management Indwelling Urethral Catheter Cath placed during this visit: yes Reason for continuing: Acute urinary retention Insertion date: 03/05/18 Insertion time: 08:00 Results - Labs CBC & Chem 7: 03/25/18 06:40 03/25/18 06:40 Laboratory Results - last 24 hr 03/25/18 03/25/18 03/25/18 06:40 06:40 11:28 WBC 5.8 RBC 2.89 L Hgb 8.7 L Hct 25.9 L MCV 89.6 MCH 30.0 MCHC 33.5 RDW 15.6 Plt Count 268 MPV 7.8 Neut % (Auto) 56.2 Lymph % (Auto) 26.8 [place] % (Auto) 11.0 H Eos % (Auto) 5.3 H Baso % (Auto) 0.7 Neut # (Auto) 3.3 Lymph # (Auto) 1.6 [place] # (Auto) 0.6 Eos # (Auto) 0.3 Baso # (Auto) 0.0 WBC Differential . Differential Comment Auto diff final Sodium 144 Potassium 4.1 Chloride 110 H Carbon Dioxide 24.7 Anion Gap 9 BUN 26 H Creatinine 1.36 H Estimated GFR 68 L POC Glucose 188 H Random Glucose 121 H Calcium 8.9 Total Bilirubin 0.3 AST 27 ALT 19 Alkaline Phosphatase 125 H Total Protein 7.9 Albumin 2.1 L Random Vancomycin 17.4 03/25/18 15:47 WBC RBC Hgb Hct MCV MCH MCHC RDW Plt Count MPV Neut % (Auto) Lymph % (Auto) [place] % (Auto) Eos % (Auto) Baso % (Auto) Neut # (Auto) Lymph # (Auto) [place] # (Auto) Eos # (Auto) Baso # (Auto) WBC Differential Differential Comment Sodium Potassium Chloride Carbon Dioxide Anion Gap BUN Creatinine Estimated GFR POC Glucose 172 H Random Glucose Calcium Total Bilirubin AST ALT Alkaline Phosphatase Total Protein Albumin Random Vancomycin Microbiology 03/18/18 09:55 Fluid - Pleural fluid Fungal Smear - Final No fungal elements seen 03/18/18 09:55 Fluid - Pleural fluid Fungal Culture - Preliminary No growth in 1 week 03/18/18 09:55 Fluid - Pleural fluid Acid Fast Bacilli Smear - Final No acid fast bacilli seen 03/18/18 09:55 Fluid - Pleural fluid Mycobacterial Culture - Preliminary No growth in 1 week 03/23/18 16:47 Blood - Peripheral Aerobic Blood Culture - Preliminary No growth in 2 days 03/23/18 16:47 Blood - Peripheral Anaerobic Blood Culture - Preliminary No growth in 2 days 03/23/18 16:40 Blood - Peripheral Aerobic Blood Culture - Preliminary No growth in 2 days 03/23/18 16:40 Blood - Peripheral Anaerobic Blood Culture - Preliminary No growth in 2 days 03/18/18 04:20 Blood - Peripheral Aerobic Blood Culture - Preliminary gram negative rods Yeast species 03/18/18 04:20 Blood - Peripheral Anaerobic Blood Culture - Final No growth in 5 days Assessment and Plan - Assessment (1) Acute on chronic anemia Code(s): D64.9 - Anemia, unspecified Status: Acute (2) Anemia of chronic disorder Code(s): D63.8 - Anemia in other chronic diseases classified elsewhere Status : Acute (3) Pseudoaneurysm of brachial artery Code(s): I72.1 - Aneurysm of artery of upper extremity Status: Acute (4) Osteomyelitis Code(s): M86.9 - Osteomyelitis, unspecified Status: Acute (5) Diabetes Code(s): E11.9 - Type 2 diabetes mellitus without complications Status: Acute - Plan 47-year-old male admitted initially with rectal bleeding and acute blood loss anemia status post PEA arrest with respiratory failure, now with tracheostomy. Bacteremia and fungemia were contributory. Start Nystatin for bilateral groin candidiasis. Diflucan also provided as patient would not be able to report cystitis or other potential complications. Candidiasis, Bilateral groin Diflucan Nystatin topical ointment Chronic respiratory failure Tracheostomy Continue tracheostomy maintenance Pulmonology following HCAP Aspiration pneumonia Klebsiella pneumonia Bilateral foot osteomyelitis MRSA osteomyelitis Bacteremia Fungemia Sepsis Continue to monitor cultures ID following Continue Levaquin, Avycaz, micafungin, Zyvox History of CVA Chronic left-sided hemiparesis Supportive care Right distal brachial artery pseudoaneurysm Measurement 3.6 X2.2X 2.2 cm All clinically Large right pleural effusion Pigtail catheter was placed Acute kidney injury Resolved Monitor renal function Status post PEA arrest Follow on telemetry Follow clinically Echo showed EF 60-65% Hyperlipidemia Continue present treatment Follow as an outpatient Seizure disorder Continue Keppra Follow clinically Hypertension Continue baseline treatment Follow blood pressures Adjust treatments as needed Dysphagia Tube feed Continue tube feeds and monitor Anemia Anemia of chronic disease Follow CBC And she is again if needed DVT prophylaxis SCDs No systemic anticoagulation due to recent bleed with transfusion Discharge planning Long-term care facility anticipated History: New line placed 03/18/18, culture from same day. Unlikely to be new line related, but likely related to [place] catheter 03/15 blood culture growing Nan glabrata IR removed Acuna 03/18/18 Sputum cx 03/13: MDR Klebsiella Urine cx: Nan Albicans 03/13 03/05 Sputum cx: ESBL Klebsiella BAL cx 03/06: Kleb pneumonia ESBL, Proteus Mirabilis, MRSA Wound culture growing MRSA from osteomyelitis site.
[2018-03-25] MEDS: Micafungin Inj 150 MG in Sodium Chlor 0.9% Inj 100 ML IV.SIG SCH (17:02)
--- NOTE | 2018-03-25 19:11 | P.PN ---
Subjective Interval history: Remains stable on T Collar at 28 % No Fever. Tolerates Feeds Physical Exam Vital signs: Vital Signs 03/24/18 20:00 03/25/18 00:00 03/25/18 04:00 Temperature 98.7 F 98.4 F 99.1 F Pulse Rate 109 H 111 H 100 H Respiratory Rate 34 H 22 20 Blood Pressure 134/79 128/78 131/76 Pulse Oximetry 95 97 95 03/25/18 08:00 03/25/18 09:00 03/25/18 10:00 Temperature 99.3 F Pulse Rate 104 H 104 H Respiratory Rate 18 Blood Pressure 136/87 Pulse Oximetry 96 97 03/25/18 12:00 03/25/18 14:00 03/25/18 16:00 Temperature 98.7 F 100.5 F H Pulse Rate 104 H 106 H 116 H Respiratory Rate 16 16 Blood Pressure 160/92 H 154/92 H Pulse Oximetry 95 91 L 03/25/18 18:00 Temperature Pulse Rate 105 H Respiratory Rate Blood Pressure Pulse Oximetry Intake & Output 03/25/18 03/25/18 03/26/18 06:59 18:59 06:59 Intake Total 340 / 340 1780 / 1780 Output Total 1625 / 1625 Balance 340 / 340 155 / 155 Weight 76.8 kg Intake: IV 100 / 100 600 / 600 Avycaz Inj 2.5 GM In NS Inj 50 100 / 100 50 / 50 ML @ 25 mls/hr IV.SIG Q8H [facility] Rx#:[id number] Diflucan 400 mg Premix Bag 200 200 / 200 ML @ 100 mls/hr IV.SIG Q24H [facility] Rx#:[id number] Mycamine Inj 150 MG In NS Inj 100 / 100 100 ML @ 100 mls/hr IV.SIG Q24H [facility] Rx#:[id number] Vancomycin Inj 1,000 MG In NS 250 / 250 Inj 250 ML @ 250 mls/hr IV.SIG Q24H [facility] Rx#:[id number] Oral 240 / 240 Tube Feeding 780 / 780 Water Bolus Amount 400 / 400 Output: Urine 1225 / 1225 Stool 400 / 400 Other: # Voids 3 Narrative: GENERAL: Mid aged A/A Male NAD, A&Ox0, nonverbal HEAD: Normocephalic. NECK: Supple, trachea midline. No lymphadenopathy. Tracheostomy present. EYES: No scleral icterus. No injection or drainage. CARDIOVASCULAR: Regular rate and rhythm without murmurs, gallops, or rubs. RESPIRATORY: Breath sounds equal bilaterally. Occ Crackles at Bases. No accessory muscle use. GASTROINTESTINAL: Abdomen soft, non-tender, nondistended. No erythema at tube feed site. MUSCULOSKELETAL: No cyanosis, or edema. SKIN: Warm and dry. Bilateral Groin candidiasis. NEURO: Global neurological deficits. - Urinary Catheter Management Indwelling Urethral Catheter Cath placed during this visit: yes Reason for continuing: Acute urinary retention Insertion date: 03/05/18 Insertion time: 08:00 Results - Labs CBC & Chem 7: 03/25/18 06:40 03/25/18 06:40 Laboratory Results - last 24 hr 03/25/18 03/25/18 03/25/18 06:40 06:40 11:28 WBC 5.8 RBC 2.89 L Hgb 8.7 L Hct 25.9 L MCV 89.6 MCH 30.0 MCHC 33.5 RDW 15.6 Plt Count 268 MPV 7.8 Neut % (Auto) 56.2 Lymph % (Auto) 26.8 [place] % (Auto) 11.0 H Eos % (Auto) 5.3 H Baso % (Auto) 0.7 Neut # (Auto) 3.3 Lymph # (Auto) 1.6 [place] # (Auto) 0.6 Eos # (Auto) 0.3 Baso # (Auto) 0.0 WBC Differential . Differential Comment Auto diff final Sodium 144 Potassium 4.1 Chloride 110 H Carbon Dioxide 24.7 Anion Gap 9 BUN 26 H Creatinine 1.36 H Estimated GFR 68 L POC Glucose 188 H Random Glucose 121 H Calcium 8.9 Total Bilirubin 0.3 AST 27 ALT 19 Alkaline Phosphatase 125 H Total Protein 7.9 Albumin 2.1 L Random Vancomycin 17.4 03/25/18 15:47 WBC RBC Hgb Hct MCV MCH MCHC RDW Plt Count MPV Neut % (Auto) Lymph % (Auto) [place] % (Auto) Eos % (Auto) Baso % (Auto) Neut # (Auto) Lymph # (Auto) [place] # (Auto) Eos # (Auto) Baso # (Auto) WBC Differential Differential Comment Sodium Potassium Chloride Carbon Dioxide Anion Gap BUN Creatinine Estimated GFR POC Glucose 172 H Random Glucose Calcium Total Bilirubin AST ALT Alkaline Phosphatase Total Protein Albumin Random Vancomycin Microbiology 03/18/18 09:55 Fluid - Pleural fluid Fungal Smear - Final No fungal elements seen 03/18/18 09:55 Fluid - Pleural fluid Fungal Culture - Preliminary No growth in 1 week 03/18/18 09:55 Fluid - Pleural fluid Acid Fast Bacilli Smear - Final No acid fast bacilli seen 03/18/18 09:55 Fluid - Pleural fluid Mycobacterial Culture - Preliminary No growth in 1 week 03/23/18 16:47 Blood - Peripheral Aerobic Blood Culture - Preliminary No growth in 2 days 03/23/18 16:47 Blood - Peripheral Anaerobic Blood Culture - Preliminary No growth in 2 days 03/23/18 16:40 Blood - Peripheral Aerobic Blood Culture - Preliminary No growth in 2 days 03/23/18 16:40 Blood - Peripheral Anaerobic Blood Culture - Preliminary No growth in 2 days 03/18/18 04:20 Blood - Peripheral Aerobic Blood Culture - Preliminary gram negative rods Yeast species 03/18/18 04:20 Blood - Peripheral Anaerobic Blood Culture - Final No growth in 5 days Assessment and Plan - Assessment (1) Gram negative sepsis Code(s): A41.50 - Gram-negative sepsis, unspecified Status: Acute (2) Tracheostomy in place Code(s): Z93.0 - Tracheostomy status Status: Acute (3) End stage renal disease Code(s): N18.6 - End stage renal disease Status: Acute (4) GI bleed Code(s): K92.2 - Gastrointestinal hemorrhage, unspecified Status: Acute (5) Anemia Code(s): D64.9 - Anemia, unspecified Status: Acute (6) Osteomyelitis Code(s): M86.9 - Osteomyelitis, unspecified Status: Acute (7) Diabetes Code(s): E11.9 - Type 2 diabetes mellitus without complications Status: Acute (8) Anemia of chronic disorder Code(s): D63.8 - Anemia in other chronic diseases classified elsewhere Status : Acute (9) Acute on chronic anemia Code(s): D64.9 - Anemia, unspecified Status: Acute (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 Code(s): I72.1 - Aneurysm of artery of upper extremity Status: Acute (11) Osteomyelitis of ankle and foot Code(s): M86.9 - Osteomyelitis, unspecified Status: Acute (12) Acute kidney injury Code(s): N17.9 - Acute kidney failure, unspecified Status: Acute (13) Hypernatremia Code(s): E87.0 - Hyperosmolality and hypernatremia Status: Acute (14) Fungemia Code(s): B49 - Unspecified mycosis Status: Acute (15) Nonproliferative diabetic retinopathy of both eyes Code(s): E11.3293 - Type 2 diabetes mellitus with mild nonproliferative diabetic retinopathy without macular edema, bilateral Status: Acute (16) Gastrostomy tube in place Code(s): Z93.1 - Gastrostomy status Status: Acute (17) Pleural effusion Code(s): J90 - Pleural effusion, not elsewhere classified Status: Acute - Plan 1. Cont T bar at 28 % FIo2 2. Trach lavage suction PRN 3. Cont Antibiotics per ID 4. Duonebs qid. 5. PT evaluation 6. CPAP / at HS if he desats <90 7. Chest Xray in am
[2018-03-26] MEDS: Insulin NovoLIN Regular Correctional Sugar Inj SQ SCH ×6 (00:31→20:59)
[2018-03-26] MEDS: Ceftazidime/Avibactam Inj 2.5 GM in Sodium Chlor 0.9% Inj 50 ML IV.SIG SCH ×3 (03:10→20:59)
--- NOTE | 2018-03-26 06:54 | XR ---
EXAM DATE: 03/26/2018 6:43 AM EDT AGE/SEX: 47 years / Male INDICATIONS: Short of breath, evaluate infiltrate CLINICAL DATA: This is the patient's subsequent encounter. Patient reports that signs and symptoms h ave been present for 1 week and indicates a pain score of Nonresponsive. MEDICAL/SURGICAL HISTORY: Diabetes mellitus type II. Cardiovascular disease. Cerebrovascular disease. CABG. tracheostomy COMPARISON: [facility] – [place], CHEST 1V SINGLE AP, 03/24/2018. . FINDINGS: Tracheostomy is stable in good position. A central line has been removed. There has been continued im provement in aeration with decrease in confluence of bilateral primarily lower lung zone pleural-pare nchymal opacities. Cardiac contours are grossly unchanged. CONCLUSION: Improving aeration Electronically signed by: Paul Silvestre MD 03/26/2018 6:53 AM EDT
[2018-03-26] MEDS: Ascorbic Acid 500 MG Tablet G-TUBE SCH ×2 (08:20→21:00)
[2018-03-26] MEDS: levETIRAcetam 500 MG Tablet G-TUBE SCH ×3 (08:20→17:33)
[2018-03-26] MEDS: Senna/Docusate Sodium 8.6/50 MG Tablet G-TUBE SCH ×2 (08:20→21:00)
[2018-03-26 08:26] LABS: Hematocrit 25.3 % (39.0-51.0); Hemoglobin 8.5 gm/dL (13.0-17.0); Mean Corpuscular HGB Conc 33.5 % (32.0-36.0); Mean Corpuscular Volume 89.4 fL (80.0-100.0); Platelet Count 268 th/mm3 (150-450); Red Blood Count 2.83 mil/mm3 (4.50-5.90); Red Cell Distribution Width 15.5 % (11.6-17.2); White Blood Count 7.2 th/mm3 (4.0-11.0)
[2018-03-26 08:52] LABS: Calcium 9.1 mg/dL (8.5-10.1); Carbon Dioxide 24.1 meq/L (21.0-32.0)
[2018-03-26] MEDS: Vancomycin Inj 1,000 MG in Sodium Chlor 0.9% Inj 250 ML IV.SIG SCH (12:30)
[2018-03-26] MEDS: Carboxymethylcellulose 0.5% Opth Drops 15 ML Bottle EACH EYE SCH ×2 (12:31→21:02)
[2018-03-26] MEDS: Micafungin Inj 150 MG in Sodium Chlor 0.9% Inj 100 ML IV.SIG SCH (14:16)
--- NOTE | 2018-03-26 14:28 | P.PNONC ---
Subjective Interval history: T-max 100.6F. Patient opens his eyes to voice. Nods his head occasionally to answer questions. Objective Vital Signs/Intake & Output: Vital Signs 03/25/18 16:00 03/25/18 18:00 03/25/18 20:00 Temperature 100.5 F H 100.6 F H Pulse Rate 116 H 105 H 113 H Respiratory Rate 16 18 Blood Pressure 154/92 H 146/86 H Pulse Oximetry 91 L 95 03/26/18 00:00 03/26/18 04:00 03/26/18 05:39 Temperature Pulse Rate 108 H 112 H 116 H Respiratory Rate Blood Pressure 158/94 H Pulse Oximetry 03/26/18 06:19 03/26/18 08:00 03/26/18 10:31 Temperature 100.2 F H Pulse Rate 117 H Respiratory Rate 22 Blood Pressure 149/87 H Pulse Oximetry 94 L 92 L 93 L Intake & Output 03/25/18 03/26/18 03/26/18 18:59 06:59 18:59 Intake Total 1780 / 1780 265 / 265 605 / 605 Output Total 1625 / 1625 925 / 925 Balance 155 / 155 -660 / -660 605 / 605 Weight 76.6 kg Intake: IV 600 / 600 265 / 265 605 / 605 Avycaz Inj 2.5 GM In NS Inj 50 50 / 50 115 / 115 55 / 55 ML @ 25 mls/hr IV.SIG Q8H [facility] Rx#:[id number] Diflucan 400 mg Premix Bag 200 200 / 200 200 / 200 ML @ 100 mls/hr IV.SIG Q24H [facility] Rx#:[id number] Levaquin 750 mg Premix Inj 150 150 / 150 ML @ 100 mls/hr IV.SIG Q24H [facility] Rx#:[id number] Mycamine Inj 150 MG In NS Inj 100 / 100 100 / 100 100 ML @ 100 mls/hr IV.SIG Q24H [facility] Rx#:[id number] Vancomycin Inj 1,000 MG In NS 250 / 250 250 / 250 Inj 250 ML @ 250 mls/hr IV.SIG Q24H [facility] Rx#:[id number] Tube Feeding 780 / 780 Water Bolus Amount 400 / 400 Output: Urine 1225 / 1225 625 / 625 Stool 400 / 400 300 / 300 Other: Date of Last Bowel Movement 03/26/18 Result Diagrams: 03/26/18 07:10 03/26/18 07:40 Laboratory Results: Laboratory Results - last 24 hr 03/25/18 03/25/18 03/26/18 15:47 19:34 00:29 WBC RBC Hgb Hct MCV MCH MCHC RDW Plt Count MPV Sodium Potassium Chloride Carbon Dioxide Anion Gap BUN Creatinine Estimated GFR POC Glucose 172 H 175 H 119 H Random Glucose Calcium 03/26/18 03/26/18 03/26/18 03:08 07:10 07:40 WBC 7.2 RBC 2.83 L Hgb 8.5 L Hct 25.3 L MCV 89.4 MCH 30.0 MCHC 33.5 RDW 15.5 Plt Count 268 MPV 8.0 Sodium 145 Potassium 4.0 Chloride 111 H Carbon Dioxide 24.1 Anion Gap 10 BUN 30 H Creatinine 1.37 H Estimated GFR 68 L POC Glucose 115 H Random Glucose 139 H Calcium 9.1 03/26/18 03/26/18 08:14 12:30 WBC RBC Hgb Hct MCV MCH MCHC RDW Plt Count MPV Sodium Potassium Chloride Carbon Dioxide Anion Gap BUN Creatinine Estimated GFR POC Glucose 172 H 170 H Random Glucose Calcium Culture Results: Microbiology 03/23/18 16:47 Aerobic Blood Culture - Preliminary Blood - Peripheral No growth in 3 days Anaerobic Blood Culture - Preliminary No growth in 3 days 03/23/18 16:40 Aerobic Blood Culture - Preliminary Blood - Peripheral No growth in 3 days Anaerobic Blood Culture - Preliminary No growth in 3 days 03/18/18 09:55 Fungal Smear - Final Fluid - Pleural fluid No fungal elements seen Fungal Culture - Preliminary No growth in 1 week 03/18/18 09:55 Acid Fast Bacilli Smear - Final Fluid - Pleural fluid No acid fast bacilli seen Mycobacterial Culture - Preliminary No growth in 1 week 03/18/18 04:20 Aerobic Blood Culture - Preliminary Blood - Peripheral gram negative rods Yeast species Anaerobic Blood Culture - Final No growth in 5 days 03/18/18 06:15 Aerobic Blood Culture - Final Blood - Peripheral No growth in 5 days Anaerobic Blood Culture - Final No growth in 5 days Imaging Studies: Impressions Chest X-Ray 03/26/18 00:00 CONCLUSION: Improving aeration Medications: Active Medications Generic Name Dose Route Start Last Admin Trade Name Freq PRN Reason Stop Dose Admin Acetaminophen 650 mg 03/17/18 10:12 03/26/18 08:29 Tylenol Liq PO 650 mg Q6H PRN Administration FEVER Albuterol 2.5 mg 03/17/18 10:15 03/23/18 21:29 Albuterol Neb (Prn) NEB 2.5 mg Q2HR NEB PRN Administration DYSPNEA Amlodipine Besylate 10 mg 02/20/18 09:00 03/05/18 09:12 Norvasc G-TUBE Not Given DAILY [facility] Artificial Tears 1 drop 03/26/18 09:00 03/26/18 12:31 Refresh Tears 0.5% Opth Drops EACH EYE 1 drop BID [facility] Administration Ascorbic Acid 500 mg 02/19/18 08:13 03/26/18 08:20 Vitamin C G-TUBE 500 mg BID [facility] Administration Atorvastatin Calcium 10 mg 02/17/18 21:00 03/25/18 20:51 Lipitor G-TUBE 10 mg HS [facility] Administration Carvedilol 25 mg 02/17/18 13:00 03/05/18 09:11 Coreg G-TUBE Not Given BID [facility] Dextrose 50 ml 02/17/18 11:23 03/14/18 05:02 D50w Vial IV.PUSH 50 ml UNSCH PRN Administration PER HYPOGLYCEMIA PROTOCOL Escitalopram Oxalate 15 mg 02/19/18 08:19 03/06/18 08:05 Lexapro G-TUBE 15 mg DAILY [facility] Administration Furosemide 20 mg 03/20/18 13:45 03/26/18 08:20 Lasix Inj IV.PUSH 20 mg DAILY [facility] Administration Heparin Sodium (Porcine) 5,000 units 02/21/18 21:00 03/05/18 09:25 Heparin Inj SQ 5,000 units Q12HR [facility] Administration Hydralazine HCl 100 mg 02/19/18 08:19 03/05/18 09:11 Apresoline G-TUBE Not Given TID [facility] Potassium Chloride 40 meq in 100 mls @ 25 mls/hr 03/13/18 14:59 03/17/18 15: 46 Kcl 40 Meq Premix Inj IV.SIG Infused Q2H PRN Infusion For Potassium 2.8 - 3.2 mEq/L Potassium Chloride 20 meq in 100 mls @ 50 mls/hr 03/13/18 14:59 03/14/18 20: 05 Kcl 20 Meq Premix Inj IV.SIG Infused Q2H PRN Infusion For Potassium 3.3 - 3.5 mEq/L Potassium Chloride 40 meq in 100 mls @ 25 mls/hr 03/13/18 14:59 03/19/18 12: 47 Kcl 40 Meq Premix Inj IV.SIG Infused UNSCH PRN Infusion For Potassium 3.3 - 3.5 mEq/L Potassium Chloride 20 meq in 100 mls @ 50 mls/hr 03/13/18 14:59 03/18/18 02: 14 Kcl 20 Meq Premix Inj IV.SIG Infused Q2H PRN Infusion For Potassium 2.8 - 3.2 mEq/L Ceftazidime/Avibactam 2.5 gm/ 50 mls @ 25 mls/hr 03/15/18 20:00 03/26/18 13: 05 Sodium Chloride IV.SIG Infused Q8H [facility] Infusion Micafungin Sodium 150 mg/ 100 mls @ 100 mls/hr 03/17/18 14:00 03/26/18 14:17 Sodium Chloride IV.SIG Infused Q24H [facility] Infusion Levofloxacin/Dextrose 150 mls @ 100 mls/hr 03/21/18 16:00 03/25/18 19:36 Levaquin 750 Mg Premix Inj IV.SIG Infused Q24H [facility] Infusion Vancomycin HCl 1,000 mg/ 250 mls @ 250 mls/hr 03/25/18 13:00 03/26/18 13:06 Sodium Chloride IV.SIG Infused Q24H [facility] Infusion Fluconazole 200 mls @ 100 mls/hr 03/25/18 12:00 03/26/18 13:05 Diflucan 400 Mg Premix Bag IV.SIG Infused Q24H [facility] Infusion Insulin Human Regular 0 units 03/05/18 12:00 03/26/18 12:32 Novolin R Correctional Sugar Inj SQ 1 units Q4HR [facility] Administration Protocol Lansoprazole 30 mg 02/20/18 09:00 03/26/18 08:21 Prevacid Solutab NG/OG 30 mg DAILY [facility] Administration Levetiracetam 500 mg 02/19/18 08:19 03/26/18 12:32 Keppra G-TUBE 500 mg TID [facility] Administration Nystatin 1 applicatio 03/25/18 13:00 03/26/18 12:32 Mycostatin Oint TOPICAL 1 applicatio QID [facility] Administration Ondansetron HCl 4 mg 02/17/18 06:46 03/14/18 20:06 Zofran Inj IV.PUSH 4 mg Q6H PRN Administration NAUSEA OR VOMITING Potassium Bicarb/Potassium Chloride 50 meq 03/13/18 14:59 03/19/18 20:29 K-Lyte Cl Eff PO 50 meq UNSCH PRN Administration For Potassium 3.3 - 3.5 mEq/L Senna/Docusate Sodium 1 tab 02/19/18 08:19 03/26/18 08:20 Jessie-Colace G-TUBE 1 tab BID [facility] Administration Sterile Water 200 ml 03/15/18 12:00 03/26/18 12:31 Free Water G-TUBE 200 ml Q6HR [facility] Administration Objective Remarks: GENERAL: Chronically ill-appearing male patient, in no acute distress. Opens his eyes to voice, following directions. SKIN: Warm. HEAD: Normocephalic. EYES: No scleral icterus. No injection or drainage. NECK: Supple, trachea midline. +Trach. Humidified air to trach. CARDIOVASCULAR: Regular rate and rhythm without murmurs. RESPIRATORY: Anterior breath sounds bilateral rhonchi. Non-labored. GASTROINTESTINAL: Abdomen soft, non-tender, nondistended. EXTREMITIES: No cyanosis, or edema. Support boots to BLE. Moves right upper and lower extremity. No movement on left. MUSCULOSKELETAL: Decreased muscle tone. NEUROLOGICAL: Opens eyes to voice, answers occasional questions with head nods. Following directions. Assessment/Plan (1) End stage renal disease Code(s): N18.6 - End stage renal disease Status: Acute (2) GI bleed Code(s): K92.2 - Gastrointestinal hemorrhage, unspecified Status: Acute (3) Anemia Code(s): D64.9 - Anemia, unspecified Status: Acute (4) Osteomyelitis Code(s): M86.9 - Osteomyelitis, unspecified Status: Acute (5) Diabetes Code(s): E11.9 - Type 2 diabetes mellitus without complications Status: Acute (6) Anemia of chronic disorder Code(s): D63.8 - Anemia in other chronic diseases classified elsewhere Status : Acute (7) Acute on chronic anemia Code(s): D64.9 - Anemia, unspecified Status: Acute (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 He is on a ventilator. He has undergone cardiac arrest. Status post ACLS protocol. He was successfully resuscitated. He has respiratory failure. He has osteomyelitis of the foot. He also has sepsis and pneumonia. He has candiduria. He is currently on multiple antibiotics. He has a history of stroke and chronic anemia. He developed acute on chronic anemia. He has acute on chronic kidney disease. During the course of his workup serum protein electrophoresis and immunoelectrophoresis was performed. These tests were interpreted as abnormal and hematology has been consulted to make further recommendations: Plan: 1. Serum protein electrophoresis results consistent with inflammation/reactive process. Immunoelectrophoresis, no monoclonal protein identified. 2. Anemia, likely secondary to inflammation, stable. 3. Sepsis, pneumonia and osteomyelitis. Management per attending and infectious disease, currently on multiple antibiotics. Blood cultures from 03/18 are growing gram-negative bacteria, sensitivity pending. Chest x-ray on showed improved aeration. 4. Adenopathy noted on CT scan. Repeat CT chest ordered to reevaluate supraclavicular and mediastinum adenopathy. 5. Continue supportive care.
--- NOTE | 2018-03-26 14:41 | P.PN ---
Subjective Interval history: Follow-up visit CVA, tracheostomy, PEG placement, hemiparesis, Pneumonia. Patient seen and examined today. Awake and alert. Appears comfortable. Nonverbal. Occasionally following simple commands. As per nursing no acute issues overnight. Physical Exam Vital signs: Vital Signs 03/25/18 16:00 03/25/18 18:00 03/25/18 20:00 Temperature 100.5 F H 100.6 F H Pulse Rate 116 H 105 H 113 H Respiratory Rate 16 18 Blood Pressure 154/92 H 146/86 H Pulse Oximetry 91 L 95 03/26/18 00:00 03/26/18 04:00 03/26/18 05:39 Temperature Pulse Rate 108 H 112 H 116 H Respiratory Rate Blood Pressure 158/94 H Pulse Oximetry 03/26/18 06:19 03/26/18 08:00 03/26/18 10:31 Temperature 100.2 F H Pulse Rate 117 H Respiratory Rate 22 Blood Pressure 149/87 H Pulse Oximetry 94 L 92 L 93 L 03/26/18 12:00 Temperature 99.7 F H Pulse Rate 120 H Respiratory Rate 22 Blood Pressure 141/83 H Pulse Oximetry 93 L Intake & Output 03/25/18 03/26/18 03/26/18 18:59 06:59 18:59 Intake Total 1780 / 1780 265 / 265 605 / 605 Output Total 1625 / 1625 925 / 925 Balance 155 / 155 -660 / -660 605 / 605 Weight 76.6 kg Intake: IV 600 / 600 265 / 265 605 / 605 Avycaz Inj 2.5 GM In NS Inj 50 50 / 50 115 / 115 55 / 55 ML @ 25 mls/hr IV.SIG Q8H [facility] Rx#:[id number] Diflucan 400 mg Premix Bag 200 200 / 200 200 / 200 ML @ 100 mls/hr IV.SIG Q24H [facility] Rx#:[id number] Levaquin 750 mg Premix Inj 150 150 / 150 ML @ 100 mls/hr IV.SIG Q24H [facility] Rx#:[id number] Mycamine Inj 150 MG In NS Inj 100 / 100 100 / 100 100 ML @ 100 mls/hr IV.SIG Q24H [facility] Rx#:[id number] Vancomycin Inj 1,000 MG In NS 250 / 250 250 / 250 Inj 250 ML @ 250 mls/hr IV.SIG Q24H [facility] Rx#:[id number] Tube Feeding 780 / 780 Water Bolus Amount 400 / 400 Output: Urine 1225 / 1225 625 / 625 Stool 400 / 400 300 / 300 Other: Date of Last Bowel Movement 03/26/18 Narrative: GENERAL: This is a well-nourished AA male, in no apparent distress. SKIN: Warm and dry. Bilateral groin candidiasis HEENT: Normocephalic. Nose without bleeding. Airway patent. NECK: Tracheostomy in place, pink, blood-tinged secretions moderate amount of moderately thick. CARDIOVASCULAR: Regular rate and rhythm without murmurs, gallops, or rubs. RESPIRATORY: Crackles at the bases. Coarse breath sounds. No accessory muscle seen GASTROINTESTINAL: Abdomen soft, non-tender. Bowel Sounds normoactive x4. PEG in place. Gets chilled in place. Noted loose stools. MUSCULOSKELETAL: Extremities without clubbing, cyanosis, or edema. NEUROLOGICAL: Awake and alert. - Urinary Catheter Management Indwelling Urethral Catheter Cath placed during this visit: yes Reason for continuing: Acute urinary retention Insertion date: 03/05/18 Insertion time: 08:00 Results - Labs CBC & Chem 7: 03/26/18 07:10 03/26/18 07:40 Laboratory Results - last 24 hr 03/25/18 03/25/18 03/26/18 15:47 19:34 00:29 WBC RBC Hgb Hct MCV MCH MCHC RDW Plt Count MPV Sodium Potassium Chloride Carbon Dioxide Anion Gap BUN Creatinine Estimated GFR POC Glucose 172 H 175 H 119 H Random Glucose Calcium 03/26/18 03/26/18 03/26/18 03:08 07:10 07:40 WBC 7.2 RBC 2.83 L Hgb 8.5 L Hct 25.3 L MCV 89.4 MCH 30.0 MCHC 33.5 RDW 15.5 Plt Count 268 MPV 8.0 Sodium 145 Potassium 4.0 Chloride 111 H Carbon Dioxide 24.1 Anion Gap 10 BUN 30 H Creatinine 1.37 H Estimated GFR 68 L POC Glucose 115 H Random Glucose 139 H Calcium 9.1 03/26/18 03/26/18 08:14 12:30 WBC RBC Hgb Hct MCV MCH MCHC RDW Plt Count MPV Sodium Potassium Chloride Carbon Dioxide Anion Gap BUN Creatinine Estimated GFR POC Glucose 172 H 170 H Random Glucose Calcium Microbiology 03/23/18 16:47 Blood - Peripheral Aerobic Blood Culture - Preliminary No growth in 3 days 03/23/18 16:47 Blood - Peripheral Anaerobic Blood Culture - Preliminary No growth in 3 days 03/23/18 16:40 Blood - Peripheral Aerobic Blood Culture - Preliminary No growth in 3 days 03/23/18 16:40 Blood - Peripheral Anaerobic Blood Culture - Preliminary No growth in 3 days 03/18/18 09:55 Fluid - Pleural fluid Fungal Smear - Final No fungal elements seen 03/18/18 09:55 Fluid - Pleural fluid Fungal Culture - Preliminary No growth in 1 week 03/18/18 09:55 Fluid - Pleural fluid Acid Fast Bacilli Smear - Final No acid fast bacilli seen 03/18/18 09:55 Fluid - Pleural fluid Mycobacterial Culture - Preliminary No growth in 1 week 03/18/18 04:20 Blood - Peripheral Aerobic Blood Culture - Preliminary gram negative rods Yeast species 03/18/18 04:20 Blood - Peripheral Anaerobic Blood Culture - Final No growth in 5 days - Imaging Impressions Chest X-Ray 03/26/18 00:00 CONCLUSION: Improving aeration Assessment and Plan - Assessment (1) Acute on chronic anemia Code(s): D64.9 - Anemia, unspecified Status: Acute (2) Anemia of chronic disorder Code(s): D63.8 - Anemia in other chronic diseases classified elsewhere Status : Acute (3) Pseudoaneurysm of brachial artery Code(s): I72.1 - Aneurysm of artery of upper extremity Status: Acute (4) Osteomyelitis Code(s): M86.9 - Osteomyelitis, unspecified Status: Acute (5) Diabetes Code(s): E11.9 - Type 2 diabetes mellitus without complications Status: Acute - Plan 47-year-old male admitted initially with rectal bleeding and acute blood loss anemia status post PEA arrest with respiratory failure, now with tracheostomy. Bacteremia and fungemia were contributory. Candidiasis, Bilateral groin -Diflucan -Nystatin topical ointment Chronic respiratory failure Tracheostomy -Continue tracheostomy maintenance -Pulmonology following -Continue pulmonary toilet, duo nebs HCAP Aspiration pneumonia Klebsiella pneumonia Bilateral foot osteomyelitis MRSA osteomyelitis Bacteremia Fungemia Sepsis -Continue to monitor cultures -ID following -Continue Levaquin, Avycaz, micafungin, Zyvox -Podiatry following Large right pleural effusion -Pigtail catheter was placed -03/[address] done today bilateral basal consolidation right greater than the left primarily atelectasis. Bilateral pleural effusions right greater than the left. Slightly improved since the 8 graft. There are some prominent mediastinal lymph nodes particularly in the right paratracheal region unchanged -03/26 Chest x-ray showed improving aeration History of CVA -Chronic left-sided hemiparesis -Supportive care -PT, OT Right distal brachial artery pseudoaneurysm -Measurement 3.6 X2.2X 2.2 cm -Clinically Status post PEA arrest HTN HLD -Follow on telemetry -Echo showed EF 60-65% -Continue atorvastatin, Lasix, carvedilol Seizure disorder -Continue Keppra -Seizure precaution Dysphagia PEG in place -Continue tube feeds -Monitor for aspiration Anemia Anemia of chronic disease -Follow CBC trend. Transfuse as needed DVT prophylaxis SCDs, No systemic anticoagulation due to recent bleed with transfusion Code Status: Full code Discussed Condition With: Patient, nursing Discharge Planning: DC when basement has been arranged.
--- NOTE | 2018-03-26 15:24 | CT ---
EXAM DATE: 03/26/2018 2:54 PM EDT AGE/SEX: 47 years / Male INDICATIONS: Evaluate for mediastinum adenopathy. CLINICAL DATA: This is the patient's subsequent encounter. Patient reports that signs and symptoms h ave been present for 1 week and indicates a pain score of 0/10. MEDICAL/SURGICAL HISTORY: Cerebrovascular disease. Diabetes. Hypertension. . G tube placement. RADIATION DOSE: 9.51 CTDI (mGy) COMPARISON: [facility] – [place] CHEST [place]/O CONTRAST, 03/16/2018. . TECHNIQUE: Multiple contiguous axial images were obtained through the chest without contrast. Image s were obtained in suspended respiration using multiple row detector helical technique. Using automa hellen exposure control and adjustment of the mA and/or kV according to patient size, radiation dose was kept as low as reasonably achievable to obtain optimal diagnostic quality images. DICOM format imag e data is available electronically for review and comparison. FINDINGS: Lungs: There is extensive areas of consolidation within both lung bases right greater than left. Thi s primarily atelectasis. Mediastinum: There is extensive lymph nodes throughout the middle mediastinum and right peritracheal region unchanged from the previous study. Tracheostomy tube is in good position. The heart is enlarg ed. Epicardial pacer wires. Pleurae: Bilateral pleural effusions right greater than left. Axillae: Prominent lymph nodes in each axilla unchanged. Bony Structures: Unremarkable. Miscellaneous: There is extensive calcification of the adrenal glands. CONCLUSION: 1. Bilateral basal consolidation right greater than left primarily atelectasis. Bilateral pleural ef fusions right greater than left. Slightly improved since the eighth graft 2. There are some prominent mediastinal lymph nodes particularly in the right paratracheal region un changed Electronically signed by: Dave Marie MD 03/26/2018 3:23 PM EDT
--- NOTE | 2018-03-26 18:55 | P.PN ---
Subjective Interval history: Seems more alert and responds to commands. Still weak on left side and legs. No fever. O2 sat 96 on T Bar at 30 %. CT chest shows Bilateral basal Atelectasis and effusions. Physical Exam Vital signs: Vital Signs 03/25/18 20:00 03/26/18 00:00 03/26/18 04:00 Temperature 100.6 F H Pulse Rate 113 H 108 H 112 H Respiratory Rate 18 Blood Pressure 146/86 H Pulse Oximetry 95 03/26/18 05:39 03/26/18 06:19 03/26/18 08:00 Temperature 100.2 F H Pulse Rate 116 H 117 H Respiratory Rate 22 Blood Pressure 158/94 H 149/87 H Pulse Oximetry 94 L 92 L 03/26/18 10:31 03/26/18 12:00 Temperature 99.7 F H Pulse Rate 120 H Respiratory Rate 22 Blood Pressure 141/83 H Pulse Oximetry 93 L 93 L Intake & Output 03/25/18 03/26/18 03/26/18 18:59 06:59 18:59 Intake Total 1780 / 1780 265 / 265 755 / 755 Output Total 1625 / 1625 925 / 925 Balance 155 / 155 -660 / -660 755 / 755 Weight 76.6 kg Intake: IV 600 / 600 265 / 265 755 / 755 Avycaz Inj 2.5 GM In NS Inj 50 50 / 50 115 / 115 55 / 55 ML @ 25 mls/hr IV.SIG Q8H K[facility] Rx#:[id number] Diflucan 400 mg Premix Bag 200 200 / 200 200 / 200 ML @ 100 mls/hr IV.SIG Q24H KRISTIE Rx#:[id number] Levaquin 750 mg Premix Inj 150 150 / 150 150 / 150 ML @ 100 mls/hr IV.SIG Q24H KRISTIE Rx#:[id number] Mycamine Inj 150 MG In NS Inj 100 / 100 100 / 100 100 ML @ 100 mls/hr IV.SIG Q24H K[facility]STIE Rx#:[id number] Vancomycin Inj 1,000 MG In NS 250 / 250 250 / 250 Inj 250 ML @ 250 mls/hr IV.SIG Q24H KRISTIE Rx#:[id number] Tube Feeding 780 / 780 Water Bolus Amount 400 / 400 Output: Urine 1225 / 1225 625 / 625 Stool 400 / 400 300 / 300 Other: Date of Last Bowel Movement 03/26/18 Narrative: GENERAL: This is a thin mid aged AA male, in no apparent distress. SKIN: Warm and dry. Bilateral groin candidiasis HEENT: Normocephalic. Nose without bleeding. NECK: Tracheostomy in place, pink, blood-tinged secretions CARDIOVASCULAR: Regular rate and rhythm without murmurs, gallops, or rubs. RESPIRATORY: Crackles at the bases. Coarse breath sounds. No accessory muscle use GASTROINTESTINAL: Abdomen soft, non-tender. Bowel Sounds normoactive x4. PEG in place. MUSCULOSKELETAL: Extremities without clubbing, but weak. no cyanosis, or edema. NEUROLOGICAL: Awake and alert. - Urinary Catheter Management Indwelling Urethral Catheter Cath placed during this visit: yes Reason for continuing: Acute urinary retention Insertion date: 03/05/18 Insertion time: 08:00 Results - Labs CBC & Chem 7: 03/26/18 07:10 03/26/18 07:40 Laboratory Results - last 24 hr 03/25/18 03/26/18 03/26/18 19:34 00:29 03:08 WBC RBC Hgb Hct MCV MCH MCHC RDW Plt Count MPV Sodium Potassium Chloride Carbon Dioxide Anion Gap BUN Creatinine Estimated GFR POC Glucose 175 H 119 H 115 H Random Glucose Calcium 03/26/18 03/26/18 03/26/18 07:10 07:40 08:14 WBC 7.2 RBC 2.83 L Hgb 8.5 L Hct 25.3 L MCV 89.4 MCH 30.0 MCHC 33.5 RDW 15.5 Plt Count 268 MPV 8.0 Sodium 145 Potassium 4.0 Chloride 111 H Carbon Dioxide 24.1 Anion Gap 10 BUN 30 H Creatinine 1.37 H Estimated GFR 68 L POC Glucose 172 H Random Glucose 139 H Calcium 9.1 03/26/18 12:30 WBC RBC Hgb Hct MCV MCH MCHC RDW Plt Count MPV Sodium Potassium Chloride Carbon Dioxide Anion Gap BUN Creatinine Estimated GFR POC Glucose 170 H Random Glucose Calcium Microbiology 03/23/18 16:47 Blood - Peripheral Aerobic Blood Culture - Preliminary No growth in 3 days 03/23/18 16:47 Blood - Peripheral Anaerobic Blood Culture - Preliminary No growth in 3 days 03/23/18 16:40 Blood - Peripheral Aerobic Blood Culture - Preliminary No growth in 3 days 03/23/18 16:40 Blood - Peripheral Anaerobic Blood Culture - Preliminary No growth in 3 days - Imaging Impressions Chest CT 03/26/18 00:00 CONCLUSION: 1. Bilateral basal consolidation right greater than left primarily atelectasis. Bilateral pleural effusions right greater than left. Slightly improved since the eighth graft 2. There are some prominent mediastinal lymph nodes particularly in the right paratracheal region unchanged Chest X-Ray 03/26/18 00:00 CONCLUSION: Improving aeration Assessment and Plan - Assessment (1) Gram negative sepsis Code(s): A41.50 - Gram-negative sepsis, unspecified Status: Acute (2) Tracheostomy in place Code(s): Z93.0 - Tracheostomy status Status: Acute (3) End stage renal disease Code(s): N18.6 - End stage renal disease Status: Acute (4) GI bleed Code(s): K92.2 - Gastrointestinal hemorrhage, unspecified Status: Acute (5) Anemia Code(s): D64.9 - Anemia, unspecified Status: Acute (6) Osteomyelitis Code(s): M86.9 - Osteomyelitis, unspecified Status: Acute (7) Diabetes Code(s): E11.9 - Type 2 diabetes mellitus without complications Status: Acute (8) Anemia of chronic disorder Code(s): D63.8 - Anemia in other chronic diseases classified elsewhere Status : Acute (9) Acute on chronic anemia Code(s): D64.9 - Anemia, unspecified Status: Acute (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 Code(s): I72.1 - Aneurysm of artery of upper extremity Status: Acute (11) Osteomyelitis of ankle and foot Code(s): M86.9 - Osteomyelitis, unspecified Status: Acute (12) Acute kidney injury Code(s): N17.9 - Acute kidney failure, unspecified Status: Acute (13) Hypernatremia Code(s): E87.0 - Hyperosmolality and hypernatremia Status: Acute (14) Fungemia Code(s): B49 - Unspecified mycosis Status: Acute (15) Nonproliferative diabetic retinopathy of both eyes Code(s): E11.3293 - Type 2 diabetes mellitus with mild nonproliferative diabetic retinopathy without macular edema, bilateral Status: Acute (16) Gastrostomy tube in place Code(s): Z93.1 - Gastrostomy status Status: Acute (17) Pleural effusion Code(s): J90 - Pleural effusion, not elsewhere classified Status: Acute - Plan 1. Cont T bar at 30 % FIo2 2. Trach lavage suction PRN 3. Cont Antibiotics per ID 4. Cont Duonebs qid. 5. Use EZ PAP with Nebs qid 6. Chest Xray Sunday
[2018-03-27] MEDS: Insulin NovoLIN Regular Correctional Sugar Inj SQ SCH ×6 (01:23→20:42)
[2018-03-27] MEDS: Ceftazidime/Avibactam Inj 2.5 GM in Sodium Chlor 0.9% Inj 50 ML IV.SIG SCH ×3 (05:01→20:42)
[2018-03-27 06:11] LABS: Hematocrit 26.4 % (39.0-51.0); Hemoglobin 8.6 gm/dL (13.0-17.0); Mean Corpuscular HGB Conc 32.8 % (32.0-36.0); Mean Corpuscular Hemoglobin 29.9 pg (27.0-34.0); Mean Corpuscular Volume 91.3 fL (80.0-100.0); Mean Platelet Volume 7.9 fL (7.0-11.0); Platelet Count 268 th/mm3 (150-450); Red Blood Count 2.89 mil/mm3 (4.50-5.90); Red Cell Distribution Width 15.7 % (11.6-17.2); White Blood Count 6.4 th/mm3 (4.0-11.0)
[2018-03-27 06:34] LABS: Calcium 9.2 mg/dL (8.5-10.1); Carbon Dioxide 24.7 meq/L (21.0-32.0); Potassium 4.1 meq/L (3.5-5.1)
[2018-03-27] MEDS: levETIRAcetam 500 MG Tablet G-TUBE SCH ×3 (08:02→17:05)
[2018-03-27] MEDS: Carboxymethylcellulose 0.5% Opth Drops 15 ML Bottle EACH EYE SCH ×2 (08:02→20:43)
[2018-03-27] MEDS: Senna/Docusate Sodium 8.6/50 MG Tablet G-TUBE SCH ×2 (08:02→20:43)
[2018-03-27] MEDS: Ascorbic Acid 500 MG Tablet G-TUBE SCH ×2 (08:02→20:43)
[2018-03-27] MEDS: Vancomycin Inj 1,000 MG in Sodium Chlor 0.9% Inj 250 ML IV.SIG SCH (12:11)
--- NOTE | 2018-03-27 12:23 | P.PN ---
Subjective Interval history: Follow-up visit CVA, tracheostomy, PEG placement, hemiparesis, Pneumonia. Patient seen and examined today. Awake and alert. Appears comfortable. Nonverbal. Nods his head to questions. As per nursing, episode of desaturation now on trach collar 28% O2. Moderate amount secretions. Physical Exam Vital signs: Vital Signs 03/26/18 16:00 03/26/18 20:00 03/27/18 00:00 Temperature 99.8 F H 99.9 F H 100.4 F H Pulse Rate 102 H 116 H 111 H Respiratory Rate 18 Blood Pressure 159/86 H 114/86 153/88 H Pulse Oximetry 93 L 94 L 89 L 03/27/18 00:25 03/27/18 04:00 03/27/18 08:00 Temperature 101.0 F H 98.8 F Pulse Rate 106 H 111 H Respiratory Rate 19 Blood Pressure 119/75 151/76 H Pulse Oximetry 98 91 L 100 03/27/18 10:42 Temperature Pulse Rate Respiratory Rate Blood Pressure Pulse Oximetry 97 Intake & Output 03/26/18 03/27/18 03/27/18 18:59 06:59 18:59 Intake Total 755 / 755 55 / 55 55 / 55 Output Total 1300 / 1300 400 / 400 Balance -545 / -545 -345 / -345 55 / 55 Weight 76.3 kg Intake: IV 755 / 755 55 / 55 55 / 55 Avycaz Inj 2.5 GM In NS Inj 50 55 / 55 55 / 55 55 / 55 ML @ 25 mls/hr IV.SIG Q8H [facility]ST[facility] Rx#:[id number] Diflucan 400 mg Premix Bag 200 200 / 200 ML @ 100 mls/hr IV.SIG Q24H K[facility]STIE Rx#:[id number] Levaquin 750 mg Premix Inj 150 150 / 150 ML @ 100 mls/hr IV.SIG Q24H [facility]STIE Rx#:[id number] Mycamine Inj 150 MG In NS Inj 100 / 100 100 ML @ 100 mls/hr IV.SIG Q24H [facility]STIE Rx#:[id number] Vancomycin Inj 1,000 MG In NS 250 / 250 Inj 250 ML @ 250 mls/hr IV.SIG Q24H K[facility]STIE Rx#:[id number] Oral 0 / 0 Output: Urine 1300 / 1300 400 / 400 Other: # Incontinent Voids 1 Date of Last Bowel Movement 03/26/18 # Bowel Movements 0 # Incontinent Bowel Movements 1 Narrative: GENERAL: This is a thin mid aged AA male, in no apparent distress. SKIN: Warm and dry. Bilateral groin candidiasis HEENT: Normocephalic. Nose without bleeding. NECK: Tracheostomy in place, with moderate secretions. secretions CARDIOVASCULAR: Regular rate and rhythm without murmurs, gallops, or rubs. RESPIRATORY: Crackles at the bases. Coarse breath sounds. No accessory muscle use GASTROINTESTINAL: Abdomen soft, non-tender. Bowel Sounds normoactive . PEG in place. MUSCULOSKELETAL: Extremities without clubbing, but weak. no cyanosis, or edema. NEUROLOGICAL: Awake and alert. weakness on left. Nonverbal - Urinary Catheter Management Indwelling Urethral Catheter Cath placed during this visit: yes Reason for continuing: Acute urinary retention Insertion date: 03/05/18 Insertion time: 08:00 Results - Labs CBC & Chem 7: 03/27/18 05:56 03/27/18 05:56 Laboratory Results - last 24 hr 03/26/18 03/27/18 03/27/18 12:30 04:58 05:56 WBC 6.4 RBC 2.89 L Hgb 8.6 L Hct 26.4 L MCV 91.3 MCH 29.9 MCHC 32.8 RDW 15.7 Plt Count 268 MPV 7.9 Sodium Potassium Chloride Carbon Dioxide Anion Gap BUN Creatinine Estimated GFR POC Glucose 170 H 139 H Random Glucose Calcium 03/27/18 05:56 WBC RBC Hgb Hct MCV MCH MCHC RDW Plt Count MPV Sodium 146 H Potassium 4.1 Chloride 111 H Carbon Dioxide 24.7 Anion Gap 10 BUN 34 H Creatinine 1.49 H Estimated GFR 61 L POC Glucose Random Glucose 131 H Calcium 9.2 Microbiology 03/23/18 16:47 Blood - Peripheral Aerobic Blood Culture - Preliminary No growth in 4 days 03/23/18 16:47 Blood - Peripheral Anaerobic Blood Culture - Preliminary No growth in 4 days 03/23/18 16:40 Blood - Peripheral Aerobic Blood Culture - Preliminary No growth in 4 days 03/23/18 16:40 Blood - Peripheral Anaerobic Blood Culture - Preliminary No growth in 4 days 03/18/18 04:20 Blood - Peripheral Aerobic Blood Culture - Preliminary gram negative rods Yeast species 03/18/18 04:20 Blood - Peripheral Anaerobic Blood Culture - Final No growth in 5 days - Imaging Impressions Chest CT 03/26/18 00:00 CONCLUSION: 1. Bilateral basal consolidation right greater than left primarily atelectasis. Bilateral pleural effusions right greater than left. Slightly improved since the eighth graft 2. There are some prominent mediastinal lymph nodes particularly in the right paratracheal region unchanged Assessment and Plan - Assessment (1) Acute on chronic anemia Code(s): D64.9 - Anemia, unspecified Status: Acute (2) Anemia of chronic disorder Code(s): D63.8 - Anemia in other chronic diseases classified elsewhere Status : Acute (3) Pseudoaneurysm of brachial artery Code(s): I72.1 - Aneurysm of artery of upper extremity Status: Acute (4) Osteomyelitis Code(s): M86.9 - Osteomyelitis, unspecified Status: Acute (5) Diabetes Code(s): E11.9 - Type 2 diabetes mellitus without complications Status: Acute - Plan 47-year-old male admitted initially with rectal bleeding and acute blood loss anemia status post PEA arrest with respiratory failure, now with tracheostomy. Bacteremia and fungemia were contributory. Candidiasis, Bilateral groin -Diflucan -Nystatin topical ointment HCAP Aspiration pneumonia Klebsiella pneumonia Chronic respiratory failure Tracheostomy -Continue tracheostomy maintenance -Pulmonology following -Continue pulmonary toilet, duo nebs -Continue Levaquin, Avycaz, micafungin, Vancomycin, Diflucan Bilateral foot osteomyelitis MRSA osteomyelitis Bacteremia Fungemia Sepsis -Continue to monitor cultures -ID following, recommended to continue IV antibiotics with end date. -Continue Avycaz, Levaquin, Micafungin, Diflucan, Vancomycin -Podiatry following Large right pleural effusion -Pigtail catheter was placed -03/[address] done bilateral basal consolidation right greater than the left primarily atelectasis. Bilateral pleural effusions right greater than the left. Slightly improved since the 8 graft. There are some prominent mediastinal lymph nodes particularly in the right paratracheal region unchanged -03/26 Chest x-ray showed improving aeration History of CVA -Chronic left-sided hemiparesis -Supportive care -PT, OT Right distal brachial artery pseudoaneurysm -Measurement 3.6 X2.2X 2.2 cm -Clinically Status post PEA arrest HTN HLD -Follow on telemetry -Echo showed EF 60-65% -Continue atorvastatin, Lasix, carvedilol Seizure disorder -Continue Keppra -Seizure precaution Dysphagia PEG in place -Continue tube feeds -Monitor for aspiration Anemia Anemia of chronic disease -Follow CBC trend. Transfuse as needed DVT prophylaxis SCDs, No systemic anticoagulation due to recent bleed with transfusion Patient is a 47 year-old man with diabetes mellitus, hypertension, chronic anemia, chronic pain, 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 The patient had a CBC done as an outpatient and it showed a hemoglobin less than 7.0. Patient had been found to have acute on chronic anemia. Patient was seen and followed by hematology/oncology and deemed that his anemia is secondary to chronic inflammation due to decrease RBC production and functional iron deficiency, does not suspect any underlying bone marrow disorder. Patient has received blood transfusions. His H&H significantly improved. GI has also followed the patient with no indication of any GI procedure. Patient had suture aneurysm right brachial artery. Doppler US was negative for DVT. Dr. Dr. Caldwell was consulted and followed patient states no intervention needed for this time. Patient also found to have chronic osteomyelitis, positive for MRSA, bilateral wound and ulcers. He was given IV antibiotic vancomycin. Patient was also evaluated by podiatry Dr. Vu suggesting no surgical intervention at this time. Patient has history of CVA with left-sided hemiparesis. He has dysphasia. Patient has continued to be on tube feeds as per dietary recommendation. His chronic disease including diabetes mellitus, hypertension, hyperlipidemia, seizure disorder has been manage in the inpatient setting. Patient hospitalization was complicated by aspiration pneumonia, bacteremia, sepsis. He continues to be on antibiotics guided by infectious disease. Currently blood cultures without any growth to date. The previously was positive for yeast species, Nan glabrata, also with gram-negative rods. As per ID he needs to continue IV antibiotics as prescribed and ordered (currently Avycaz, Levaquin, Micafungin, Diflucan, Vancomycin). Pulmonary consult has been following patient, Dr. Peralta who agrees for patient to continue to be on trach collar, bleeding, nebulization and antibiotic use. Okay for transfer to [place]. Code Status: Full Code Discussed Condition With: Nurse, Dr. Peralta, Dr. Paul, Dr. Duncan Discharge Planning: Plan to transfer to [facility].
--- NOTE | 2018-03-27 12:44 | P.PN ---
Subjective Interval history: Awake and responds to commands. Moves Right leg. No Fever. On a T bar at 30 %. Physical Exam Vital signs: Vital Signs 03/26/18 16:00 03/26/18 20:00 03/27/18 00:00 Temperature 99.8 F H 99.9 F H 100.4 F H Pulse Rate 102 H 116 H 111 H Respiratory Rate 20 18 18 Blood Pressure 159/86 H 114/86 153/88 H Pulse Oximetry 93 L 94 L 89 L 03/27/18 00:25 03/27/18 04:00 03/27/18 08:00 Temperature 101.0 F H 98.8 F Pulse Rate 106 H 111 H Respiratory Rate 20 19 Blood Pressure 119/75 151/76 H Pulse Oximetry 98 91 L 100 03/27/18 10:42 Temperature Pulse Rate Respiratory Rate Blood Pressure Pulse Oximetry 97 Intake & Output 03/26/18 03/27/18 03/27/18 18:59 06:59 18:59 Intake Total 755 / 755 55 / 55 55 / 55 Output Total 1300 / 1300 400 / 400 Balance -545 / -545 -345 / -345 55 / 55 Weight 76.3 kg Intake: IV 755 / 755 55 / 55 55 / 55 Avycaz Inj 2.5 GM In NS Inj 50 55 / 55 55 / 55 55 / 55 ML @ 25 mls/hr IV.SIG Q8H [facility] Rx#:[id number] Diflucan 400 mg Premix Bag 200 200 / 200 ML @ 100 mls/hr IV.SIG Q24H [facility]STIE Rx#:[id number] Levaquin 750 mg Premix Inj 150 150 / 150 ML @ 100 mls/hr IV.SIG Q24H [facility] Rx#:[id number] Mycamine Inj 150 MG In NS Inj 100 / 100 100 ML @ 100 mls/hr IV.SIG Q24H [facility] Rx#:[id number] Vancomycin Inj 1,000 MG In NS 250 / 250 Inj 250 ML @ 250 mls/hr IV.SIG Q24H [facility]ST[facility] Rx#:[id number] Oral 0 / 0 Output: Urine 1300 / 1300 400 / 400 Other: # Incontinent Voids 1 Date of Last Bowel Movement 03/26/18 # Bowel Movements 0 # Incontinent Bowel Movements 1 Narrative: GENERAL: This is a thin mid aged AA male, in no apparent distress. SKIN: Warm and dry. Bilateral groin candidiasis HEENT: Normocephalic. Nose without bleeding. NECK: Tracheostomy in place, with few secretions CARDIOVASCULAR: Regular rate and rhythm without murmurs, gallops, or rubs. RESPIRATORY: Crackles at the bases. Coarse breath sounds. No accessory muscle use GASTROINTESTINAL: Abdomen soft, non-tender. Bowel Sounds normoactive . PEG in place. MUSCULOSKELETAL: Extremities without clubbing, but weak. no cyanosis, or edema. NEUROLOGICAL: Awake and alert. weakness on left. - Urinary Catheter Management Indwelling Urethral Catheter Cath placed during this visit: yes Reason for continuing: Acute urinary retention Insertion date: 03/05/18 Insertion time: 08:00 Results - Labs CBC & Chem 7: 03/27/18 05:56 03/27/18 05:56 Laboratory Results - last 24 hr 03/26/18 03/27/18 03/27/18 12:30 04:58 05:56 WBC 6.4 RBC 2.89 L Hgb 8.6 L Hct 26.4 L MCV 91.3 MCH 29.9 MCHC 32.8 RDW 15.7 Plt Count 268 MPV 7.9 Sodium Potassium Chloride Carbon Dioxide Anion Gap BUN Creatinine Estimated GFR POC Glucose 170 H 139 H Random Glucose Calcium 03/27/18 03/27/18 05:56 12:16 WBC RBC Hgb Hct MCV MCH MCHC RDW Plt Count MPV Sodium 146 H Potassium 4.1 Chloride 111 H Carbon Dioxide 24.7 Anion Gap 10 BUN 34 H Creatinine 1.49 H Estimated GFR 61 L POC Glucose 128 H Random Glucose 131 H Calcium 9.2 Microbiology 03/23/18 16:47 Blood - Peripheral Aerobic Blood Culture - Preliminary No growth in 4 days 03/23/18 16:47 Blood - Peripheral Anaerobic Blood Culture - Preliminary No growth in 4 days 03/23/18 16:40 Blood - Peripheral Aerobic Blood Culture - Preliminary No growth in 4 days 03/23/18 16:40 Blood - Peripheral Anaerobic Blood Culture - Preliminary No growth in 4 days 03/18/18 04:20 Blood - Peripheral Aerobic Blood Culture - Preliminary gram negative rods Yeast species 03/18/18 04:20 Blood - Peripheral Anaerobic Blood Culture - Final No growth in 5 days - Imaging Impressions Chest CT 03/26/18 00:00 CONCLUSION: 1. Bilateral basal consolidation right greater than left primarily atelectasis. Bilateral pleural effusions right greater than left. Slightly improved since the eighth graft 2. There are some prominent mediastinal lymph nodes particularly in the right paratracheal region unchanged Assessment and Plan - Assessment (1) Gram negative sepsis Code(s): A41.50 - Gram-negative sepsis, unspecified Status: Acute (2) Tracheostomy in place Code(s): Z93.0 - Tracheostomy status Status: Acute (3) End stage renal disease Code(s): N18.6 - End stage renal disease Status: Acute (4) GI bleed Code(s): K92.2 - Gastrointestinal hemorrhage, unspecified Status: Acute (5) Anemia Code(s): D64.9 - Anemia, unspecified Status: Acute (6) Osteomyelitis Code(s): M86.9 - Osteomyelitis, unspecified Status: Acute (7) Diabetes Code(s): E11.9 - Type 2 diabetes mellitus without complications Status: Acute (8) Anemia of chronic disorder Code(s): D63.8 - Anemia in other chronic diseases classified elsewhere Status : Acute (9) Acute on chronic anemia Code(s): D64.9 - Anemia, unspecified Status: Acute (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 Code(s): I72.1 - Aneurysm of artery of upper extremity Status: Acute (11) Osteomyelitis of ankle and foot Code(s): M86.9 - Osteomyelitis, unspecified Status: Acute (12) Acute kidney injury Code(s): N17.9 - Acute kidney failure, unspecified Status: Acute (13) Hypernatremia Code(s): E87.0 - Hyperosmolality and hypernatremia Status: Acute (14) Fungemia Code(s): B49 - Unspecified mycosis Status: Acute (15) Nonproliferative diabetic retinopathy of both eyes Code(s): E11.3293 - Type 2 diabetes mellitus with mild nonproliferative diabetic retinopathy without macular edema, bilateral Status: Acute (16) Gastrostomy tube in place Code(s): Z93.1 - Gastrostomy status Status: Acute (17) Pleural effusion Code(s): J90 - Pleural effusion, not elsewhere classified Status: Acute - Plan 1. Cont T bar at 30 % FIo2 2. Trach lavage suction PRN 3. Cont Antibiotics per ID 4. Cont Duonebs qid. 5. Use EZ PAP with Nebs qid 6. Add mucomyst nebs 20 % solution 2 CC TID
[2018-03-27] MEDS: Micafungin Inj 150 MG in Sodium Chlor 0.9% Inj 100 ML IV.SIG SCH (14:24)
--- NOTE | 2018-03-27 14:54 | P.PNID ---
Subjective Remarks: off pressors, on Tpiece afebrile doing well GNB from 03/18 blood clx still not ID'd : dw microlab Antibiotics: avycaz vanco micafungin Allergies/Adverse Reactions: Allergies No Known Allergies Allergy (Unknown, Uncoded 01/06/18 21:04) Objective Vital Signs 03/26/18 16:00 03/26/18 20:00 03/27/18 00:00 Temperature 99.8 F H 99.9 F H 100.4 F H Pulse Rate 102 H 116 H 111 H Respiratory Rate 20 18 18 Blood Pressure 159/86 H 114/86 153/88 H Pulse Oximetry 93 L 94 L 89 L 03/27/18 00:25 03/27/18 04:00 03/27/18 08:00 Temperature 101.0 F H 98.8 F Pulse Rate 106 H 111 H Respiratory Rate 20 19 Blood Pressure 119/75 151/76 H Pulse Oximetry 98 91 L 100 03/27/18 10:42 03/27/18 12:00 Temperature 98.4 F Pulse Rate 105 H Respiratory Rate 18 Blood Pressure 142/110 H Pulse Oximetry 97 99 Intake & Output 03/26/18 03/27/18 03/27/18 18:59 06:59 18:59 Intake Total 755 / 755 55 / 55 55 / 55 Output Total 1300 / 1300 400 / 400 Balance -545 / -545 -345 / -345 55 / 55 Weight 76.3 kg Intake: IV 755 / 755 55 / 55 55 / 55 Avycaz Inj 2.5 GM In NS Inj 50 55 / 55 55 / 55 55 / 55 ML @ 25 mls/hr IV.SIG Q8H KRISTIE Rx#:[id number] Diflucan 400 mg Premix Bag 200 200 / 200 ML @ 100 mls/hr IV.SIG Q24H KRISTIE Rx#:[id number] Levaquin 750 mg Premix Inj 150 150 / 150 ML @ 100 mls/hr IV.SIG Q24H KRISTIE Rx#:[id number] Mycamine Inj 150 MG In NS Inj 100 / 100 100 ML @ 100 mls/hr IV.SIG Q24H KRISTIE Rx#:[id number] Vancomycin Inj 1,000 MG In NS 250 / 250 Inj 250 ML @ 250 mls/hr IV.SIG Q24H KRISTIE Rx#:[id number] Oral 0 / 0 Output: Urine 1300 / 1300 400 / 400 Other: # Incontinent Voids 1 Date of Last Bowel Movement 03/26/18 # Bowel Movements 0 # Incontinent Bowel Movements 1 03/06/18 15:00 Bronchial Washings - Left Lower Lobe Fungal Smear - Final No fungal elements seen 03/06/18 15:00 Bronchial Washings - Left Lower Lobe Fungal Culture - Preliminary No growth in 3 weeks 03/06/18 15:00 Bronchial Washings - Left Lower Lobe Acid Fast Bacilli Smear - Final No acid fast bacilli seen 03/06/18 15:00 Bronchial Washings - Left Lower Lobe Mycobacterial Culture - Preliminary No growth in 3 weeks 03/23/18 16:47 Blood - Peripheral Aerobic Blood Culture - Preliminary No growth in 4 days 03/23/18 16:47 Blood - Peripheral Anaerobic Blood Culture - Preliminary No growth in 4 days 03/23/18 16:40 Blood - Peripheral Aerobic Blood Culture - Preliminary No growth in 4 days 03/23/18 16:40 Blood - Peripheral Anaerobic Blood Culture - Preliminary No growth in 4 days 03/18/18 04:20 Blood - Peripheral Aerobic Blood Culture - Preliminary gram negative rods Yeast species 03/18/18 04:20 Blood - Peripheral Anaerobic Blood Culture - Final No growth in 5 days 03/18/18 09:55 Fluid - Pleural fluid Fungal Smear - Final No fungal elements seen 03/18/18 09:55 Fluid - Pleural fluid Fungal Culture - Preliminary No growth in 1 week 03/18/18 09:55 Fluid - Pleural fluid Acid Fast Bacilli Smear - Final No acid fast bacilli seen 03/18/18 09:55 Fluid - Pleural fluid Mycobacterial Culture - Preliminary No growth in 1 week 03/18/18 04:20 Other - Pending Lab - Hematology Results 03/26/18 03/27/18 07:10 05:56 WBC 7.2 6.4 RBC 2.83 L 2.89 L Hgb 8.5 L 8.6 L Hct 25.3 L 26.4 L MCV 89.4 91.3 MCH 30.0 29.9 MCHC 33.5 32.8 RDW 15.5 15.7 Plt Count 268 268 MPV 8.0 7.9 Lab - Chemistry Results 03/25/18 03/25/18 03/26/18 15:47 19:34 00:29 Sodium Potassium Chloride Carbon Dioxide Anion Gap BUN Creatinine Estimated GFR POC Glucose 172 H 175 H 119 H Random Glucose Calcium 03/26/18 03/26/18 03/26/18 03:08 07:40 08:14 Sodium 145 Potassium 4.0 Chloride 111 H Carbon Dioxide 24.1 Anion Gap 10 BUN 30 H Creatinine 1.37 H Estimated GFR 68 L POC Glucose 115 H 172 H Random Glucose 139 H Calcium 9.1 03/26/18 03/27/18 03/27/18 12:30 04:58 05:56 Sodium 146 H Potassium 4.1 Chloride 111 H Carbon Dioxide 24.7 Anion Gap 10 BUN 34 H Creatinine 1.49 H Estimated GFR 61 L POC Glucose 170 H 139 H Random Glucose 131 H Calcium 9.2 03/27/18 12:16 Sodium Potassium Chloride Carbon Dioxide Anion Gap BUN Creatinine Estimated GFR POC Glucose 128 H Random Glucose Calcium Imaging: ITS Impressions Abdomen/Pelvis CT 02/17/18 00:00 CONCLUSION: 1. Small bilateral pleural effusions and bilateral lower lung opacity again seen. 2. Mild splenomegaly again seen. 3. Gastrostomy tube in place. 4. No evidence of bowel dilatation. 5. Heterotopic ossification about the left hip again seen. 6. Calcified adrenal glands again seen. 7. Enlarged inguinal lymph nodes again seen. Venous Doppler Study 02/18/18 00:00 CONCLUSION: 1. No DVT or SVT. 2. 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 This measures 3.6 x 2.2 x 2.2 cm and is predominantly thrombosed with a small, 6 x 9 mm patent component showing biphasic flow. Central Venous Line 02/22/18 00:00 CONCLUSION: 1. Uncomplicated tunneled central venous Power PICC line placement. 2. The PICC line can be used immediately. Foot MRI 02/22/18 00:00 CONCLUSION: 1. Findings most characteristic of early osteomyelitis at the medial aspect of the first metatarsal head and a tiny focus of probable osteomyelitis at the medial corner of the proximal phalanx great toe. Mild surrounding cellulitis. 2. Previous partial amputation fifth metatarsal. Extremity Arterial Study 02/26/18 00:00 CONCLUSION: 1. Normal ABIs bilaterally. Acuna Line Insertion 03/05/18 00:00 CONCLUSION: 1. Uncomplicated Acuna catheter placement as above. Head CT 03/11/18 08:30 CONCLUSION: 1. Stable sinus disease. 2. White matter disease and remote infarcts. . Abdomen X-Ray 03/13/18 12:21 CONCLUSION: Bilateral adrenal calcifications. Tube Removal 03/18/18 00:00 CONCLUSION: 1. Uncomplicated Permcath removal. Chest CT 03/26/18 00:00 CONCLUSION: 1. Bilateral basal consolidation right greater than left primarily atelectasis. Bilateral pleural effusions right greater than left. Slightly improved since the eighth graft 2. There are some prominent mediastinal lymph nodes particularly in the right paratracheal region unchanged Chest X-Ray 03/26/18 00:00 CONCLUSION: Improving aeration Physical Exam: GENERAL: NAD SKIN: Warm and dry. HEAD: Atraumatic. Normocephalic. EYES: Pupils equal and round. No scleral icterus. No injection or drainage. ENT: No nasal bleeding or discharge. Mucous membranes pink and moist. NECK: trach in place, Tpiece CARDIOVASCULAR: Regular rate and rhythm. RESPIRATORY: No accessory muscle use. B/l rhonchi to auscultation. Breath sounds equal bilaterally. GASTROINTESTINAL: Abdomen soft, non-tender, distended. Hepatic and splenic margins not palpable. PEG in place, MUSCULOSKELETAL: Extremities without clubbing, cyanosis, or edema. No obvious deformities. B/l foot wound looks really well, healing, dry, no d/c or odor NEUROLOGICAL: awake, alert, communicates L side hemiplegia, contracted PSYCHIATRIC: unable to assess Assessment and Plan - Plan L foot osteomyelitis MRSA, on vancomycin - doing really well Anemia likely 2/2 vanco Mild CEDRIC, likely 2/2 vanco - pt has 2 adverse effects from vancomycin so far, I will recommend to avoid vancomycin Aspiration PNA - growing ESBL + ? carbapenem R kleb pneumo, S to avycaz, colistin R zerbaxa previously MRSA and Proteus acute VDRF : resolved Diarreha, C.diff negative CEDRIC : GFR 80 today -no eos in urine Funguria C. glabrata candidemia ? source HIckmann: removed 2 D echo negative no fungal balls on dilated exams GNB bacteremia - still not ID'd : talked w micro lab today (03/27): sent out, might take up to 7-10 days PICC line if 03/22 bl clx remain negative cont AVYCAZ thru 04/01 cont micufungin thru 04/07 dc levaquin cont vancomycin to complete tx for MRSA osteo L foot (6 weeks total) fu repeat BC untill final OK to dc if repeat BC neg and remains afebril dw microlab dw HEPAS RN
--- NOTE | 2018-03-27 15:55 | P.PNONC ---
Subjective Interval history: T-max 101F. Patient sleeping on approach, opens his eyes momentarily. Objective Vital Signs/Intake & Output: Vital Signs 03/26/18 16:00 03/26/18 20:00 03/27/18 00:00 Temperature 99.8 F H 99.9 F H 100.4 F H Pulse Rate 102 H 116 H 111 H Respiratory Rate 20 18 18 Blood Pressure 159/86 H 114/86 153/88 H Pulse Oximetry 93 L 94 L 89 L 03/27/18 00:25 03/27/18 04:00 03/27/18 08:00 Temperature 101.0 F H 98.8 F Pulse Rate 106 H 111 H Respiratory Rate 20 19 Blood Pressure 119/75 151/76 H Pulse Oximetry 98 91 L 100 03/27/18 10:42 03/27/18 12:00 Temperature 98.4 F Pulse Rate 105 H Respiratory Rate 18 Blood Pressure 142/110 H Pulse Oximetry 97 99 Intake & Output 03/26/18 03/27/18 03/27/18 18:59 06:59 18:59 Intake Total 755 / 755 55 / 55 660 / 660 Output Total 1300 / 1300 400 / 400 Balance -545 / -545 -345 / -345 660 / 660 Weight 76.3 kg Intake: IV 755 / 755 55 / 55 660 / 660 Avycaz Inj 2.5 GM In NS Inj 50 55 / 55 55 / 55 110 / 110 ML @ 25 mls/hr IV.SIG Q8H KRISTIE Rx#:[id number] Diflucan 400 mg Premix Bag 200 200 / 200 200 / 200 ML @ 100 mls/hr IV.SIG Q24H KRISTIE Rx#:[id number] Levaquin 750 mg Premix Inj 150 150 / 150 ML @ 100 mls/hr IV.SIG Q24H KRISTIE Rx#:[id number] Mycamine Inj 150 MG In NS Inj 100 / 100 100 / 100 100 ML @ 100 mls/hr IV.SIG Q24H KRISTIE Rx#:[id number] Vancomycin Inj 1,000 MG In NS 250 / 250 250 / 250 Inj 250 ML @ 250 mls/hr IV.SIG Q24H KRISTIE Rx#:[id number] Oral 0 / 0 Output: Urine 1300 / 1300 400 / 400 Other: # Incontinent Voids 1 Date of Last Bowel Movement 09/18/18 # Bowel Movements 0 # Incontinent Bowel Movements 1 Result Diagrams: 03/27/18 05:56 03/27/18 05:56 Laboratory Results: Laboratory Results - last 24 hr 03/27/18 03/27/18 03/27/18 04:58 05:56 05:56 WBC 6.4 RBC 2.89 L Hgb 8.6 L Hct 26.4 L MCV 91.3 MCH 29.9 MCHC 32.8 RDW 15.7 Plt Count 268 MPV 7.9 Sodium 146 H Potassium 4.1 Chloride 111 H Carbon Dioxide 24.7 Anion Gap 10 BUN 34 H Creatinine 1.49 H Estimated GFR 61 L POC Glucose 139 H Random Glucose 131 H Calcium 9.2 03/27/18 12:16 WBC RBC Hgb Hct MCV MCH MCHC RDW Plt Count MPV Sodium Potassium Chloride Carbon Dioxide Anion Gap BUN Creatinine Estimated GFR POC Glucose 128 H Random Glucose Calcium Culture Results: Microbiology 03/06/18 15:00 Fungal Smear - Final Bronchial Washings - Left Lower Lobe No fungal elements seen Fungal Culture - Preliminary No growth in 3 weeks 03/06/18 15:00 Acid Fast Bacilli Smear - Final Bronchial Washings - Left Lower Lobe No acid fast bacilli seen Mycobacterial Culture - Preliminary No growth in 3 weeks 03/23/18 16:47 Aerobic Blood Culture - Preliminary Blood - Peripheral No growth in 4 days Anaerobic Blood Culture - Preliminary No growth in 4 days 03/23/18 16:40 Aerobic Blood Culture - Preliminary Blood - Peripheral No growth in 4 days Anaerobic Blood Culture - Preliminary No growth in 4 days 03/18/18 04:20 Aerobic Blood Culture - Preliminary Blood - Peripheral gram negative rods Yeast species Anaerobic Blood Culture - Final No growth in 5 days 03/18/18 09:55 Fungal Smear - Final Fluid - Pleural fluid No fungal elements seen Fungal Culture - Preliminary No growth in 1 week 03/18/18 09:55 Acid Fast Bacilli Smear - Final Fluid - Pleural fluid No acid fast bacilli seen Mycobacterial Culture - Preliminary No growth in 1 week Medications: Active Medications Generic Name Dose Route Start Last Admin Trade Name Freq PRN Reason Stop Dose Admin Acetaminophen 650 mg 03/17/18 10:12 03/27/18 05:01 Tylenol Liq PO 650 mg Q6H PRN Administration FEVER Albuterol 2.5 mg 03/17/18 10:15 03/23/18 21:29 Albuterol Neb (Prn) NEB 2.5 mg Q2HR NEB PRN Administration DYSPNEA Amlodipine Besylate 10 mg 02/20/18 09:00 03/05/18 09:12 Norvasc G-TUBE Not Given DAILY KRISTIE Artificial Tears 1 drop 03/26/18 09:00 03/27/18 08:02 Refresh Tears 0.5% Opth Drops EACH EYE 1 drop BID KRISTIE Administration Ascorbic Acid 500 mg 02/19/18 08:13 03/27/18 08:02 Vitamin C G-TUBE 500 mg BID KRISTIE Administration Atorvastatin Calcium 10 mg 02/17/18 21:00 03/26/18 21:00 Lipitor G-TUBE 10 mg HS KRISTIE Administration Carvedilol 25 mg 02/17/18 13:00 03/05/18 09:11 Coreg G-TUBE Not Given BID KRISTIE Dextrose 50 ml 02/17/18 11:23 03/14/18 05:02 D50w Vial IV.PUSH 50 ml UNSCH PRN Administration PER HYPOGLYCEMIA PROTOCOL Escitalopram Oxalate 15 mg 02/19/18 08:19 03/06/18 08:05 Lexapro G-TUBE 15 mg DAILY KRISTIE Administration Furosemide 20 mg 03/20/18 13:45 03/27/18 08:02 Lasix Inj IV.PUSH 20 mg DAILY KRISTIE Administration Heparin Sodium (Porcine) 5,000 units 02/21/18 21:00 03/05/18 09:25 Heparin Inj SQ 5,000 units Q12HR KRISTIE Administration Hydralazine HCl 100 mg 02/19/18 08:19 03/05/18 09:11 Apresoline G-TUBE Not Given TID KRISTIE Potassium Chloride 40 meq in 100 mls @ 25 mls/hr 03/13/18 14:59 03/17/18 15: 46 Kcl 40 Meq Premix Inj IV.SIG Infused Q2H PRN Infusion For Potassium 2.8 - 3.2 mEq/L Potassium Chloride 20 meq in 100 mls @ 50 mls/hr 03/13/18 14:59 03/14/18 20: 05 Kcl 20 Meq Premix Inj IV.SIG Infused Q2H PRN Infusion For Potassium 3.3 - 3.5 mEq/L Potassium Chloride 40 meq in 100 mls @ 25 mls/hr 03/13/18 14:59 03/19/18 12: 47 Kcl 40 Meq Premix Inj IV.SIG Infused UNSCH PRN Infusion For Potassium 3.3 - 3.5 mEq/L Potassium Chloride 20 meq in 100 mls @ 50 mls/hr 03/13/18 14:59 03/18/18 02: 14 Kcl 20 Meq Premix Inj IV.SIG Infused Q2H PRN Infusion For Potassium 2.8 - 3.2 mEq/L Ceftazidime/Avibactam 2.5 gm/ 50 mls @ 25 mls/hr 03/15/18 20:00 03/27/18 15: 18 Sodium Chloride IV.SIG Infused Q8H KRISTIE Infusion Micafungin Sodium 150 mg/ 100 mls @ 100 mls/hr 03/17/18 14:00 03/27/18 15:19 Sodium Chloride IV.SIG Infused Q24H KRISTIE Infusion Levofloxacin/Dextrose 150 mls @ 100 mls/hr 03/21/18 16:00 03/26/18 17:58 Levaquin 750 Mg Premix Inj IV.SIG Infused Q24H KRISTIE Infusion Vancomycin HCl 1,000 mg/ 250 mls @ 250 mls/hr 03/25/18 13:00 03/27/18 15:18 Sodium Chloride IV.SIG Infused Q24H KRISTIE Infusion Fluconazole 200 mls @ 100 mls/hr 03/25/18 12:00 03/27/18 15:18 Diflucan 400 Mg Premix Bag IV.SIG Infused Q24H KRISTIE Infusion Insulin Human Regular 0 units 03/05/18 12:00 03/27/18 12:16 Novolin R Correctional Sugar Inj SQ Not Given Q4HR KRISTIE Protocol Lactobacillus Acidophilus 1 gm 03/27/18 13:00 03/27/18 14:24 Lactinex Pkt PO 1 gm TID KRISTIE Administration Lansoprazole 30 mg 02/20/18 09:00 03/27/18 08:03 Prevacid Solutab NG/OG 30 mg DAILY KRISTIE Administration Levetiracetam 500 mg 02/19/18 08:19 03/27/18 12:11 Keppra G-TUBE 500 mg TID KRISTIE Administration Nystatin 1 applicatio 03/25/18 13:00 03/27/18 12:12 Mycostatin Oint TOPICAL 1 applicatio QID KRISTIE Administration Ondansetron HCl 4 mg 02/17/18 06:46 03/14/18 20:06 Zofran Inj IV.PUSH 4 mg Q6H PRN Administration NAUSEA OR VOMITING Potassium Bicarb/Potassium Chloride 50 meq 03/13/18 14:59 03/19/18 20:29 K-Lyte Cl Eff PO 50 meq UNSCH PRN Administration For Potassium 3.3 - 3.5 mEq/L Senna/Docusate Sodium 1 tab 02/19/18 08:19 03/27/18 08:02 Jessie-Colace G-TUBE 1 tab BID KRISTIE Administration Objective Remarks: GENERAL: Chronically ill-appearing male patient, in no acute distress. Opens his eyes momentarily. SKIN: Warm. HEAD: Normocephalic. EYES: No scleral icterus. No injection or drainage. NECK: Supple, trachea midline. +Trach. Humidified air to trach. CARDIOVASCULAR: Regular rate and rhythm without murmurs. RESPIRATORY: Anterior breath sounds scant bilateral rhonchi. Non-labored. GASTROINTESTINAL: Abdomen soft, non-tender, nondistended. EXTREMITIES: No cyanosis, or edema. Support boots to BLE. MUSCULOSKELETAL: Decreased muscle tone. NEUROLOGICAL: Appears to be sleeping, opens his eyes momentarily. Assessment/Plan (1) End stage renal disease Code(s): N18.6 - End stage renal disease Status: Acute (2) GI bleed Code(s): K92.2 - Gastrointestinal hemorrhage, unspecified Status: Acute (3) Anemia Code(s): D64.9 - Anemia, unspecified Status: Acute (4) Osteomyelitis Code(s): M86.9 - Osteomyelitis, unspecified Status: Acute (5) Diabetes Code(s): E11.9 - Type 2 diabetes mellitus without complications Status: Acute (6) Anemia of chronic disorder Code(s): D63.8 - Anemia in other chronic diseases classified elsewhere Status : Acute (7) Acute on chronic anemia Code(s): D64.9 - Anemia, unspecified Status: Acute (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 He is on a ventilator. He has undergone cardiac arrest. Status post ACLS protocol. He was successfully resuscitated. He has respiratory failure. He has osteomyelitis of the foot. He also has sepsis and pneumonia. He has candiduria. He is currently on multiple antibiotics. He has a history of stroke and chronic anemia. He developed acute on chronic anemia. He has acute on chronic kidney disease. During the course of his workup serum protein electrophoresis and immunoelectrophoresis was performed. These tests were interpreted as abnormal and hematology has been consulted to make further recommendations: Plan: 1. Serum protein electrophoresis results consistent with inflammation/reactive process. Immunoelectrophoresis, no monoclonal protein identified. 2. Anemia, likely secondary to inflammation, continues to improve slightly. 3. Sepsis, pneumonia and osteomyelitis. Management per attending and infectious disease, currently on multiple antibiotics. Blood cultures from 03/18 are growing gram-negative bacteria, sensitivity pending. Chest x-ray on showed improved aeration. 4. Adenopathy noted on CT scan. Repeat CT chest showed prominent lymph nodes in each axilla which are unchanged from previous scan. There continues to be extensive lymph nodes throughout the middle mediastinum and right peritracheal region, unchanged from previous exam. Patient with known sepsis and pneumonia with trach in place, so still questionable whether this adenopathy is inflammatory in nature. As pneumonia improves we can reevaluate to determine if any further workup is necessary. 5. Continue supportive care.
[2018-03-28] MEDS: Insulin NovoLIN Regular Correctional Sugar Inj SQ SCH ×4 (00:02→12:57)
[2018-03-28] MEDS: Ceftazidime/Avibactam Inj 2.5 GM in Sodium Chlor 0.9% Inj 50 ML IV.SIG SCH ×2 (04:41→12:25)
[2018-03-28 06:59] LABS: Hematocrit 25.6 % (39.0-51.0); Hemoglobin 8.5 gm/dL (13.0-17.0); Mean Corpuscular Hemoglobin 29.9 pg (27.0-34.0); Mean Corpuscular Volume 90.5 fL (80.0-100.0); Mean Platelet Volume 8.3 fL (7.0-11.0); Platelet Count 231 th/mm3 (150-450); Red Blood Count 2.83 mil/mm3 (4.50-5.90); Red Cell Distribution Width 16.1 % (11.6-17.2); White Blood Count 6.5 th/mm3 (4.0-11.0)
[2018-03-28 07:10] LABS: Calcium 8.9 mg/dL (8.5-10.1); Carbon Dioxide 24.7 meq/L (21.0-32.0); Potassium 3.9 meq/L (3.5-5.1)
[2018-03-28 08:53] VITALS: O2SAT 99
--- NOTE | 2018-03-28 09:40 | P.PN ---
Subjective Interval history: awake andlert tolerating tube feedings at 65 cc/hr- glucerna ff commands, makes eye contact tracheostomy in place- sats good at 28% Physical Exam Vital signs: Vital Signs 03/27/18 10:42 03/27/18 12:00 03/27/18 16:00 Temperature 98.4 F 98.7 F Pulse Rate 107 H 105 H Respiratory Rate 18 18 Blood Pressure 142/110 H 131/83 Pulse Oximetry 97 99 96 03/27/18 16:48 03/27/18 20:00 03/28/18 00:00 Temperature 98.7 F 97.6 F Pulse Rate 106 H 112 H 106 H Respiratory Rate 16 18 20 Blood Pressure 153/89 H 138/81 Pulse Oximetry 100 99 03/28/18 00:40 03/28/18 04:00 03/28/18 08:52 Temperature 99.6 F Pulse Rate 88 106 H 98 H Respiratory Rate 22 20 18 Blood Pressure 121/78 Pulse Oximetry 93 L 100 99 Intake & Output 03/27/18 03/28/18 03/28/18 18:59 06:59 18:59 Intake Total 810 / 810 110 / 110 Output Total 1200 / 1200 1000 / 1000 Balance -390 / -390 -890 / -890 Intake: IV 810 / 810 110 / 110 Avycaz Inj 2.5 GM In NS Inj 50 110 / 110 110 / 110 ML @ 25 mls/hr IV.SIG Q8H [facility] Rx#:[id number] Diflucan 400 mg Premix Bag 200 200 / 200 ML @ 100 mls/hr IV.SIG Q24H K[facility]ST[facility] Rx#:[id number] Levaquin 750 mg Premix Inj 150 150 / 150 ML @ 100 mls/hr IV.SIG Q24H [facility]ST[facility] Rx#:[id number] Mycamine Inj 150 MG In NS Inj 100 / 100 100 ML @ 100 mls/hr IV.SIG Q24H [facility] Rx#:[id number] Vancomycin Inj 1,000 MG In NS 250 / 250 Inj 250 ML @ 250 mls/hr IV.SIG Q24H K[facility]ST[facility] Rx#:[id number] Oral 0 / 0 Output: Urine 1200 / 1200 1000 / 1000 Other: Date of Last Bowel Movement 03/27/18 # Bowel Movements 0 Narrative: GENERAL: This is a thin mid aged AA male, in no apparent distress. 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 Bilateral groin candidiasis HEENT: Normocephalic. Nose without bleeding. NECK: Tracheostomy in place- 28% good sats - minimal thin secretions CARDIOVASCULAR: Regular rate and rhythm without murmurs, gallops, or rubs. RESPIRATORY: decreased breath sounds, no rales, No accessory muscle use GASTROINTESTINAL: Abdomen soft, non-tender. Bowel Sounds normoactive . PEG in place. - flexion cntractures left sided extremities left foot- lateral aspect with dryo open wound NEUROLOGICAL: Awake and alert. 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 left sided weakness - Urinary Catheter Management Indwelling Urethral Catheter Cath placed during this visit: yes Reason for continuing: Acute urinary retention Insertion date: 03/05/18 Insertion time: 08:00 Results - Labs CBC & Chem 7: 03/28/18 06:02 03/28/18 06:02 Laboratory Results - last 24 hr 03/27/18 03/27/18 03/28/18 12:16 23:57 06:02 WBC 6.5 RBC 2.83 L Hgb 8.5 L Hct 25.6 L MCV 90.5 MCH 29.9 MCHC 33.0 RDW 16.1 Plt Count 231 MPV 8.3 Sodium Potassium Chloride Carbon Dioxide Anion Gap BUN Creatinine Estimated GFR POC Glucose 128 H 117 H Random Glucose Calcium 03/28/18 03/28/18 06:02 08:30 WBC RBC Hgb Hct MCV MCH MCHC RDW Plt Count MPV Sodium 147 H Potassium 3.9 Chloride 112 H Carbon Dioxide 24.7 Anion Gap 10 BUN 36 H Creatinine 1.47 H Estimated GFR 62 L POC Glucose 168 H Random Glucose 135 H Calcium 8.9 Microbiology 03/06/18 15:00 Bronchial Washings - Left Lower Lobe Fungal Smear - Final No fungal elements seen 03/06/18 15:00 Bronchial Washings - Left Lower Lobe Fungal Culture - Preliminary No growth in 3 weeks 03/06/18 15:00 Bronchial Washings - Left Lower Lobe Acid Fast Bacilli Smear - Final No acid fast bacilli seen 03/06/18 15:00 Bronchial Washings - Left Lower Lobe Mycobacterial Culture - Preliminary No growth in 3 weeks 03/23/18 16:47 Blood - Peripheral Aerobic Blood Culture - Preliminary No growth in 4 days 03/23/18 16:47 Blood - Peripheral Anaerobic Blood Culture - Preliminary No growth in 4 days 03/23/18 16:40 Blood - Peripheral Aerobic Blood Culture - Preliminary No growth in 4 days 03/23/18 16:40 Blood - Peripheral Anaerobic Blood Culture - Preliminary No growth in 4 days 03/18/18 04:20 Blood - Peripheral Aerobic Blood Culture - Preliminary gram negative rods Yeast species 03/18/18 04:20 Blood - Peripheral Anaerobic Blood Culture - Final No growth in 5 days Assessment and Plan - Assessment (1) Acute on chronic anemia Code(s): D64.9 - Anemia, unspecified Status: Acute (2) Anemia of chronic disorder Code(s): D63.8 - Anemia in other chronic diseases classified elsewhere Status : Resolved (3) Pseudoaneurysm of brachial artery Code(s): I72.1 - Aneurysm of artery of upper extremity Status: Acute (4) Osteomyelitis Code(s): M86.9 - Osteomyelitis, unspecified Status: Acute (5) Diabetes Code(s): E11.9 - Type 2 diabetes mellitus without complications Status: Acute - Plan 47-year-old male admitted initially with rectal bleeding and acute blood loss anemia status post PEA arrest with respiratory failure, now with tracheostomy. Bacteremia and fungemia were contributory. Candidiasis, Bilateral groin -Diflucan -Nystatin topical ointment HCAP Aspiration pneumonia Klebsiella pneumonia Chronic respiratory failure Tracheostomy -Continue tracheostomy maintenance -Pulmonology following -Continue pulmonary toilet, duo nebs -Continue Levaquin, Avycaz, micafungin, Vancomycin, Diflucan Bilateral foot osteomyelitis MRSA osteomyelitis GNB Bacteremia Sepsis C. glabrata candidemia- ? source Acuna- removed -Continue to monitor cultures -ID following, recommended to continue IV antibiotics with end date. -Continue Avycaz, Levaquin, Micafungin, Diflucan, Vancomycin -Podiatry following 2 D echo negative no fungal balls on dilated exams - still not ID'd : talked w micro lab today (03/27): sent out, might take up to 7-10 days last blood cultures from 03.23 - negative for 4 days PICC line if 03/22 bl clx remain negative cont AVYCAZ thru 04/01 cont micufungin thru 04/07 dc levaquin cont vancomycin to complete tx for MRSA osteo L foot (6 weeks total) fu repeat BC untill final Large right pleural effusion -Pigtail catheter was placed -03/[address] done bilateral basal consolidation right greater than the left primarily atelectasis. Bilateral pleural effusions right greater than the left. Slightly improved since the 8 graft. There are some prominent mediastinal lymph nodes particularly in the right paratracheal region unchanged -03/26 Chest x-ray showed improving aeration History of CVA -Chronic left-sided hemiparesis -Supportive care -PT, OT Right distal brachial artery pseudoaneurysm -Measurement 3.6 X2.2X 2.2 cm -Clinically Status post PEA arrest HTN HLD -Follow on telemetry -Echo showed EF 60-65% -Continue atorvastatin, Lasix, carvedilol Seizure disorder -Continue Keppra -Seizure precaution Dysphagia PEG in place -Continue tube feeds -Monitor for aspiration Anemia Anemia of chronic disease -Follow CBC trend. Transfuse as needed DVT prophylaxis SCDs, No systemic anticoagulation due to recent bleed with transfusion 03/27 addnedum notes Patient is a 47 year-old man with diabetes mellitus, hypertension, chronic anemia, chronic pain, 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 The patient had a CBC done as an outpatient and it showed a hemoglobin less than 7.0. Patient had been found to have acute on chronic anemia. Patient was seen and followed by hematology/oncology and deemed that his anemia is secondary to chronic inflammation due to decrease RBC production and functional iron deficiency, does not suspect any underlying bone marrow disorder. Patient has received blood transfusions. His H&H significantly improved. GI has also followed the patient with no indication of any GI procedure. Patient had suture aneurysm right brachial artery. Doppler US was negative for DVT. Dr. Dr. Caldwell was consulted and followed patient states no intervention needed for this time. Patient also found to have chronic osteomyelitis, positive for MRSA, bilateral wound and ulcers. He was given IV antibiotic vancomycin. Patient was also evaluated by podiatry Dr. Vu suggesting no surgical intervention at this time. Patient has history of CVA with left-sided hemiparesis. He has dysphasia. Patient has continued to be on tube feeds as per dietary recommendation. His chronic disease including diabetes mellitus, hypertension, hyperlipidemia, seizure disorder has been manage in the inpatient setting. Patient hospitalization was complicated by aspiration pneumonia, bacteremia, sepsis. He continues to be on antibiotics guided by infectious disease. Currently blood cultures without any growth to date. The previously was positive for yeast species, Nan glabrata, also with gram-negative rods. As per ID he needs to continue IV antibiotics as prescribed and ordered (currently Avycaz, Levaquin, Micafungin, Diflucan, Vancomycin). Pulmonary consult has been following patient, Dr. Babin who agrees for patient to continue to be on trach collar, bleeding, nebulization and antibiotic use. Okay for transfer to [place]. Code Status: Full Code Discharge Planning: d/w CM- DC to [facility] today- accepted
--- NOTE | 2018-03-28 10:12 | P.DS ---
Date of admission: 02/17/18 06:58 Primary care physician: Doroteo Mackey MD Anticipated date of discharge: 03/28/18 Brief History from admission: 47-year-old male with a past medical history significant for diabetes mellitus, hypertension, chronic anemia, chronic pain, hemiparesis secondary to right- sided CVA, CHF, dysphagia with feeding tube placement, psychiatric disorder, depression and hyperlipidemia who was brought to the emergency department for the evaluation abnormal lab results. The patient had a CBC done as an outpatient and it showed a hemoglobin less than 7.0. He was recently admitted to the hospital on 12/24/17 where he was treated for anemia of chronic inflammation and was transfused couple units of packed red blood cell with consultation to hematology. The patient does not participate in the exam and will not answer questions. He will open his eyes when asked to and shakes his head yes or no but remains nonverbal. According to previous neurology notes from the patient's prior hospital stay this is baseline for the patient. Patient update on day of discharge: awake and alert, afebrile toelrating tube feedings good sats at 28%- treach DS: Diagnosis - Discharge Diagnosis (1) Acute on chronic anemia Status: Acute (2) Pseudoaneurysm of brachial artery Status: Acute (3) Osteomyelitis Status: Acute (4) Diabetes Status: Acute DS: Medications - Discharge Medications Prescriptions: lansoprazole [Prevacid SoluTab] 30 mg FEEDING TUBE DAILY #30 tab DS: Summary Hospital Course: 47-year-old male admitted initially with rectal bleeding and acute blood loss anemia status post PEA arrest with respiratory failure, now with tracheostomy. Bacteremia and fungemia were contributory. Candidiasis, Bilateral groin -Diflucan -Nystatin topical ointment HCAP Aspiration pneumonia Klebsiella pneumonia Chronic respiratory failure Tracheostomy- 28% -Continue tracheostomy maintenance -Pulmonology following -Continue pulmonary toilet, duo nebs -Continue Levaquin, Avycaz, micafungin, Vancomycin, Diflucan Bilateral foot osteomyelitis MRSA osteomyelitis GNB Bacteremia Sepsis C. glabrata candidemia- ? source Acuna- removed -Continue to monitor cultures -ID following, recommended to continue IV antibiotics with end date. -Continue Avycaz till 04/07, L Micafungin till 04/07 Vancomycin total 6 weeks - started 03/25 -Podiatry following 2 D echo negative no fungal balls on dilated exams - still not ID'd : talked w micro lab today (03/27): sent out, might take up to 7-10 days last blood cultures from 03.23 - negative for 4 days PICC line if 03/22 bl clx remain negative cont AVYCAZ thru 04/01 cont micufungin thru 04/07 dc levaquin cont vancomycin to complete tx for MRSA osteo L foot (6 weeks total) fu repeat BC untill final Large right pleural effusion -Pigtail catheter was placed -03/[address] done bilateral basal consolidation right greater than the left primarily atelectasis. Bilateral pleural effusions right greater than the left. Slightly improved since the 8 graft. There are some prominent mediastinal lymph nodes particularly in the right paratracheal region unchanged -03/26 Chest x-ray showed improving aeration History of CVA -Chronic left-sided hemiparesis -Supportive care -PT, OT Right distal brachial artery pseudoaneurysm -Measurement 3.6 X2.2X 2.2 cm -Clinically Status post PEA arrest HTN HLD -Follow on telemetry -Echo showed EF 60-65% -Continue atorvastatin, Lasix, carvedilol Seizure disorder -Continue Keppra -Seizure precaution Dysphagia PEG in place -Continue tube feeds- toelrating - glucerna 65 cc/hr -Monitor for aspiration Anemia Anemia of chronic disease -Follow CBC trend. Transfuse as needed DVT prophylaxis SCDs, No systemic anticoagulation due to recent bleed with transfusion 03/27 addnedum notes Patient is a 47 year-old man with diabetes mellitus, hypertension, chronic anemia, chronic pain, 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 The patient had a CBC done as an outpatient and it showed a hemoglobin less than 7.0. Patient had been found to have acute on chronic anemia. Patient was seen and followed by hematology/oncology and deemed that his anemia is secondary to chronic inflammation due to decrease RBC production and functional iron deficiency, does not suspect any underlying bone marrow disorder. Patient has received blood transfusions. His H&H significantly improved. GI has also followed the patient with no indication of any GI procedure. Patient had suture aneurysm right brachial artery. Doppler US was negative for DVT. Dr. Dr. Caldwell was consulted and followed patient states no intervention needed for this time. Patient also found to have chronic osteomyelitis, positive for MRSA, bilateral wound and ulcers. He was given IV antibiotic vancomycin. Patient was also evaluated by podiatry Dr. Vu suggesting no surgical intervention at this time. Patient has history of CVA with left-sided hemiparesis. He has dysphasia. Patient has continued to be on tube feeds as per dietary recommendation. His chronic disease including diabetes mellitus, hypertension, hyperlipidemia, seizure disorder has been manage in the inpatient setting. Patient hospitalization was complicated by aspiration pneumonia, bacteremia, sepsis. He continues to be on antibiotics guided by infectious disease. Currently blood cultures without any growth to date. The previously was positive for yeast species, Nan glabrata, also with gram-negative rods. As per ID he needs to continue IV antibiotics as prescribed and ordered (currently Avycaz, Levaquin, Micafungin, Diflucan, Vancomycin). Pulmonary consult has been following patient, Dr. Babin who agrees for patient to continue to be on trach collar, bleeding, nebulization and antibiotic use. Okay for transfer to [place]. Code Status: Full Code - Time Spent with Patient Total time spent providing and/or coordinating discharge services: Greater than 30 minutes - Quality: VTE Deep Vein Thrombosis/Pulmonary Embolism Present on Admission: No Exam Vital signs: Vital Signs 03/27/18 10:42 03/27/18 12:00 03/27/18 16:00 Temperature 98.4 F 98.7 F Pulse Rate 107 H 105 H Respiratory Rate 18 18 Blood Pressure 142/110 H 131/83 Pulse Oximetry 97 99 96 03/27/18 16:48 03/27/18 20:00 03/28/18 00:00 Temperature 98.7 F 97.6 F Pulse Rate 106 H 112 H 106 H Respiratory Rate 16 18 20 Blood Pressure 153/89 H 138/81 Pulse Oximetry 100 99 03/28/18 00:40 03/28/18 04:00 03/28/18 08:52 Temperature 99.6 F Pulse Rate 88 106 H 98 H Respiratory Rate 22 20 18 Blood Pressure 121/78 Pulse Oximetry 93 L 100 99 Intake & Output 03/27/18 03/28/18 03/28/18 18:59 06:59 18:59 Intake Total 810 / 810 110 / 110 Output Total 1200 / 1200 1000 / 1000 Balance -390 / -390 -890 / -890 Intake: IV 810 / 810 110 / 110 Avycaz Inj 2.5 GM In NS Inj 50 110 / 110 110 / 110 ML @ 25 mls/hr IV.SIG Q8H KRISTIE Rx#:[id number] Diflucan 400 mg Premix Bag 200 200 / 200 ML @ 100 mls/hr IV.SIG Q24H KRISTIE Rx#:[id number] Levaquin 750 mg Premix Inj 150 150 / 150 ML @ 100 mls/hr IV.SIG Q24H KRISTIE Rx#:[id number] Mycamine Inj 150 MG In NS Inj 100 / 100 100 ML @ 100 mls/hr IV.SIG Q24H KRISTIE Rx#:[id number] Vancomycin Inj 1,000 MG In NS 250 / 250 Inj 250 ML @ 250 mls/hr IV.SIG Q24H KRISTIE Rx#:[id number] Oral 0 / 0 Output: Urine 1200 / 1200 1000 / 1000 Other: Date of Last Bowel Movement 03/27/18 # Bowel Movements 0 Results Procedures completed during hospitalization: 03/18- PCN pigtail tube thoracostomy- US /- PCN tracheostomy with bronchoscopy guidance Labs on day of discharge: Labs from last 24 hours 03/28/18 03/28/18 03/28/18 08:30 06:02 06:02 WBC 6.5 RBC 2.83 L Hgb 8.5 L Hct 25.6 L MCV 90.5 MCH 29.9 MCHC 33.0 RDW 16.1 Plt Count 231 MPV 8.3 Sodium 147 H Potassium 3.9 Chloride 112 H Carbon Dioxide 24.7 Anion Gap 10 BUN 36 H Creatinine 1.47 H Estimated GFR 62 L POC Glucose 168 H Random Glucose 135 H Calcium 8.9 03/27/18 03/27/18 23:57 12:16 WBC RBC Hgb Hct MCV MCH MCHC RDW Plt Count MPV Sodium Potassium Chloride Carbon Dioxide Anion Gap BUN Creatinine Estimated GFR POC Glucose 117 H 128 H Random Glucose Calcium Preliminary micro results at discharge 03/06/18 15:00 Fungal Culture - Preliminary Bronchial Washings - Left Lower Lobe No growth in 3 weeks 03/06/18 15:00 Mycobacterial Culture - Preliminary Bronchial Washings - Left Lower Lobe No growth in 3 weeks 03/23/18 16:47 Aerobic Blood Culture - Preliminary Blood - Peripheral No growth in 4 days Anaerobic Blood Culture - Preliminary No growth in 4 days 03/23/18 16:40 Aerobic Blood Culture - Preliminary Blood - Peripheral No growth in 4 days Anaerobic Blood Culture - Preliminary No growth in 4 days 03/18/18 04:20 Aerobic Blood Culture - Preliminary Blood - Peripheral gram negative rods Yeast species 03/18/18 09:55 Fungal Culture - Preliminary Fluid - Pleural fluid No growth in 1 week 03/18/18 09:55 Mycobacterial Culture - Preliminary Fluid - Pleural fluid No growth in 1 week - Impressions ITS Impressions Abdomen/Pelvis CT 02/17/18 00:00 CONCLUSION: 1. Small bilateral pleural effusions and bilateral lower lung opacity again seen. 2. Mild splenomegaly again seen. 3. Gastrostomy tube in place. 4. No evidence of bowel dilatation. 5. Heterotopic ossification about the left hip again seen. 6. Calcified adrenal glands again seen. 7. Enlarged inguinal lymph nodes again seen. Venous Doppler Study 02/18/18 00:00 CONCLUSION: 1. No DVT or SVT. 2. 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 This measures 3.6 x 2.2 x 2.2 cm and is predominantly thrombosed with a small, 6 x 9 mm patent component showing biphasic flow. Central Venous Line 02/22/18 00:00 CONCLUSION: 1. Uncomplicated tunneled central venous Power PICC line placement. 2. The PICC line can be used immediately. Foot MRI 02/22/18 00:00 CONCLUSION: 1. Findings most characteristic of early osteomyelitis at the medial aspect of the first metatarsal head and a tiny focus of probable osteomyelitis at the medial corner of the proximal phalanx great toe. Mild surrounding cellulitis. 2. Previous partial amputation fifth metatarsal. Extremity Arterial Study 02/26/18 00:00 CONCLUSION: 1. Normal ABIs bilaterally. Acuna Line Insertion 03/05/18 00:00 CONCLUSION: 1. Uncomplicated Acuna catheter placement as above. Head CT 03/11/18 08:30 CONCLUSION: 1. Stable sinus disease. 2. White matter disease and remote infarcts. . Abdomen X-Ray 03/13/18 12:21 CONCLUSION: Bilateral adrenal calcifications. Tube Removal 03/18/18 00:00 CONCLUSION: 1. Uncomplicated Permcath removal. Chest CT 03/26/18 00:00 CONCLUSION: 1. Bilateral basal consolidation right greater than left primarily atelectasis. Bilateral pleural effusions right greater than left. Slightly improved since the eighth graft 2. There are some prominent mediastinal lymph nodes particularly in the right paratracheal region unchanged Chest X-Ray 03/26/18 00:00 CONCLUSION: Improving aeration Discharge Plan - Discharge Disposition Patient Disposition: 03 Discharge to SNF - Discharge Condition Condition: Stable - Discharge Order Discharge Orders: Discharge Order (Routine); Ordered 03/28/18 Ordered By: Rae Hilton - Discharge Details Anticipated Discharge Date: 03/28/18 Discharge Comment: clifford TF - Glucerna 60 cc/hr - Physicians Team Primary Care Provider: Doroteo Mackey Attending Provider: Rae Hilton Other Providers: Fabi Mercado MD ; [facility] ; Hilda Vu DPM ; Amado Jensen MD ; Cris Paul MD ; Gagan Scott DPM ; Luis Manuel Kwan MD ; Campbell Mcfarland MD ; Juan Gregg MD ; Efren Siegel MD ; [facility] ; Mercedes Bunn MD ; Paul Babin MD
--- NOTE | 2018-03-28 10:27 | P.PNONC ---
Subjective Interval history: Afebrile 24 hours. Patient lying in bed, alert on approach. Nursing staff is at the bedside performing hygiene care. Patient nods his head to questions. Objective Vital Signs/Intake & Output: Vital Signs 03/27/18 10:42 03/27/18 12:00 03/27/18 16:00 Temperature 98.4 F 98.7 F Pulse Rate 107 H 105 H Respiratory Rate 18 18 Blood Pressure 142/110 H 131/83 Pulse Oximetry 97 99 96 03/27/18 16:48 03/27/18 20:00 03/28/18 00:00 Temperature 98.7 F 97.6 F Pulse Rate 106 H 112 H 106 H Respiratory Rate 16 18 20 Blood Pressure 153/89 H 138/81 Pulse Oximetry 100 99 03/28/18 00:40 03/28/18 04:00 03/28/18 08:52 Temperature 99.6 F Pulse Rate 88 106 H 98 H Respiratory Rate 22 20 18 Blood Pressure 121/78 Pulse Oximetry 93 L 100 99 Intake & Output 03/27/18 03/28/18 03/28/18 18:59 06:59 18:59 Intake Total 810 / 810 110 / 110 Output Total 1200 / 1200 1000 / 1000 Balance -390 / -390 -890 / -890 Intake: IV 810 / 810 110 / 110 Avycaz Inj 2.5 GM In NS Inj 50 110 / 110 110 / 110 ML @ 25 mls/hr IV.SIG Q8H KRISTIE Rx#:[id number] Diflucan 400 mg Premix Bag 200 200 / 200 ML @ 100 mls/hr IV.SIG Q24H KRISTIE Rx#:[id number] Levaquin 750 mg Premix Inj 150 150 / 150 ML @ 100 mls/hr IV.SIG Q24H KRISTIE Rx#:[id number] Mycamine Inj 150 MG In NS Inj 100 / 100 100 ML @ 100 mls/hr IV.SIG Q24H KRISTIE Rx#:[id number] Vancomycin Inj 1,000 MG In NS 250 / 250 Inj 250 ML @ 250 mls/hr IV.SIG Q24H KRISTIE Rx#:[id number] Oral 0 / 0 Output: Urine 1200 / 1200 1000 / 1000 Other: Date of Last Bowel Movement 03/27/18 # Bowel Movements 0 Result Diagrams: 03/28/18 06:02 03/28/18 06:02 Laboratory Results: Laboratory Results - last 24 hr 03/27/18 03/27/18 03/28/18 12:16 23:57 06:02 WBC 6.5 RBC 2.83 L Hgb 8.5 L Hct 25.6 L MCV 90.5 MCH 29.9 MCHC 33.0 RDW 16.1 Plt Count 231 MPV 8.3 Sodium Potassium Chloride Carbon Dioxide Anion Gap BUN Creatinine Estimated GFR POC Glucose 128 H 117 H Random Glucose Calcium 03/28/18 03/28/18 06:02 08:30 WBC RBC Hgb Hct MCV MCH MCHC RDW Plt Count MPV Sodium 147 H Potassium 3.9 Chloride 112 H Carbon Dioxide 24.7 Anion Gap 10 BUN 36 H Creatinine 1.47 H Estimated GFR 62 L POC Glucose 168 H Random Glucose 135 H Calcium 8.9 Culture Results: Microbiology 03/06/18 15:00 Fungal Smear - Final Bronchial Washings - Left Lower Lobe No fungal elements seen Fungal Culture - Preliminary No growth in 3 weeks 03/06/18 15:00 Acid Fast Bacilli Smear - Final Bronchial Washings - Left Lower Lobe No acid fast bacilli seen Mycobacterial Culture - Preliminary No growth in 3 weeks 03/23/18 16:47 Aerobic Blood Culture - Preliminary Blood - Peripheral No growth in 4 days Anaerobic Blood Culture - Preliminary No growth in 4 days 03/23/18 16:40 Aerobic Blood Culture - Preliminary Blood - Peripheral No growth in 4 days Anaerobic Blood Culture - Preliminary No growth in 4 days 03/18/18 04:20 Aerobic Blood Culture - Preliminary Blood - Peripheral gram negative rods Yeast species Anaerobic Blood Culture - Final No growth in 5 days 03/18/18 09:55 Fungal Smear - Final Fluid - Pleural fluid No fungal elements seen Fungal Culture - Preliminary No growth in 1 week 03/18/18 09:55 Acid Fast Bacilli Smear - Final Fluid - Pleural fluid No acid fast bacilli seen Mycobacterial Culture - Preliminary No growth in 1 week Medications: Active Medications Generic Name Dose Route Start Last Admin Trade Name Freq PRN Reason Stop Dose Admin Acetaminophen 650 mg 03/17/18 10:12 03/27/18 05:01 Tylenol Liq PO 650 mg Q6H PRN Administration FEVER Acetylcysteine 2 ml 03/27/18 16:00 03/28/18 08:47 Mucomyst 20% Neb NEB 2 ml Q8HR NEB KRISTIE Administration Albuterol 2.5 mg 03/17/18 10:15 03/28/18 08:47 Albuterol Neb (Prn) NEB 2.5 mg Q2HR NEB PRN Administration DYSPNEA Amlodipine Besylate 10 mg 02/20/18 09:00 03/05/18 09:12 Norvasc G-TUBE Not Given DAILY KRISTIE Artificial Tears 1 drop 03/26/18 09:00 03/27/18 20:43 Refresh Tears 0.5% Opth Drops EACH EYE 1 drop BID KRISTIE Administration Ascorbic Acid 500 mg 02/19/18 08:13 03/27/18 20:43 Vitamin C G-TUBE 500 mg BID KRISTIE Administration Atorvastatin Calcium 10 mg 02/17/18 21:00 03/27/18 20:42 Lipitor G-TUBE 10 mg HS KRISTIE Administration Carvedilol 25 mg 02/17/18 13:00 03/05/18 09:11 Coreg G-TUBE Not Given BID KRISTIE Dextrose 50 ml 02/17/18 11:23 03/14/18 05:02 D50w Vial IV.PUSH 50 ml UNSCH PRN Administration PER HYPOGLYCEMIA PROTOCOL Escitalopram Oxalate 15 mg 02/19/18 08:19 03/06/18 08:05 Lexapro G-TUBE 15 mg DAILY KRISTIE Administration Furosemide 20 mg 03/20/18 13:45 03/27/18 08:02 Lasix Inj IV.PUSH 20 mg DAILY KRISTIE Administration Heparin Sodium (Porcine) 5,000 units 02/21/18 21:00 03/05/18 09:25 Heparin Inj SQ 5,000 units Q12HR KRISTIE Administration Hydralazine HCl 100 mg 02/19/18 08:19 03/05/18 09:11 Apresoline G-TUBE Not Given TID KRISTIE Ceftazidime/Avibactam 2.5 gm/ 50 mls @ 25 mls/hr 03/15/18 20:00 03/28/18 06: 40 Sodium Chloride IV.SIG Infused Q8H KRISTIE Infusion Micafungin Sodium 150 mg/ 100 mls @ 100 mls/hr 03/17/18 14:00 03/27/18 15:19 Sodium Chloride IV.SIG Infused Q24H KRISTIE Infusion Vancomycin HCl 1,000 mg/ 250 mls @ 250 mls/hr 03/25/18 13:00 03/27/18 15:18 Sodium Chloride IV.SIG Infused Q24H KRISTIE Infusion Fluconazole 200 mls @ 100 mls/hr 03/25/18 12:00 03/27/18 15:18 Diflucan 400 Mg Premix Bag IV.SIG Infused Q24H KRISTIE Infusion Insulin Human Regular 0 units 03/05/18 12:00 03/28/18 03:53 Novolin R [employer] Sugar Inj SQ Not Given Q4HR [facility] Protocol Lactobacillus Acidophilus 1 gm 03/27/18 13:00 03/27/18 17:05 Lactinex Pkt PO 1 gm TID KRISTIE Administration Lansoprazole 30 mg 02/20/18 09:00 03/27/18 08:03 Prevacid Solutab NG/OG 30 mg DAILY KRISTIE Administration Levetiracetam 500 mg 02/19/18 08:19 03/27/18 17:05 Keppra G-TUBE 500 mg TID KRISTIE Administration Nystatin 1 applicatio 03/25/18 13:00 03/27/18 20:43 Mycostatin Oint TOPICAL 1 applicatio QID KRISTIE Administration Ondansetron HCl 4 mg 02/17/18 06:46 03/14/18 20:06 Zofran Inj IV.PUSH 4 mg Q6H PRN Administration NAUSEA OR VOMITING Senna/Docusate Sodium 1 tab 02/19/18 08:19 03/27/18 20:43 Jessie-Colace G-TUBE Not Given BID KRISTIE Sterile Water 250 ml 03/27/18 12:41 03/28/18 06:40 Free Water G-TUBE 250 ml Q6HR KRISTIE Administration Objective Remarks: GENERAL: Chronically ill-appearing male patient, in no acute distress. Alert on approach. SKIN: Warm. HEAD: Normocephalic. EYES: No scleral icterus. No injection or drainage. NECK: Supple, trachea midline. +Trach. T-bar in place with some bright red tinged mucous in tube. CARDIOVASCULAR: Regular rate and rhythm without murmurs. RESPIRATORY: Anterior breath sounds scant bilateral rhonchi. Non-labored. GASTROINTESTINAL: Abdomen soft, non-tender, nondistended. EXTREMITIES: No cyanosis, or edema. Support boots to BLE. MUSCULOSKELETAL: Decreased muscle tone. NEUROLOGICAL: Alert on approach, follows with eyes, nods his head to occasional questions. Assessment/Plan (1) End stage renal disease Code(s): N18.6 - End stage renal disease Status: Acute (2) GI bleed Code(s): K92.2 - Gastrointestinal hemorrhage, unspecified Status: Acute (3) Anemia Code(s): D64.9 - Anemia, unspecified Status: Acute (4) Osteomyelitis Code(s): M86.9 - Osteomyelitis, unspecified Status: Acute (5) Diabetes Code(s): E11.9 - Type 2 diabetes mellitus without complications Status: Acute (6) Anemia of chronic disorder Code(s): D63.8 - Anemia in other chronic diseases classified elsewhere Status : Resolved (7) Acute on chronic anemia Code(s): D64.9 - Anemia, unspecified Status: Acute (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 He is on a ventilator. He has undergone cardiac arrest. Status post ACLS protocol. He was successfully resuscitated. He has respiratory failure. He has osteomyelitis of the foot. He also has sepsis and pneumonia. He has candiduria. He is currently on multiple antibiotics. He has a history of stroke and chronic anemia. He developed acute on chronic anemia. He has acute on chronic kidney disease. During the course of his workup serum protein electrophoresis and immunoelectrophoresis was performed. These tests were interpreted as abnormal and hematology has been consulted to make further recommendations: Plan: 1. Serum protein electrophoresis results consistent with inflammation/reactive process. Immunoelectrophoresis, no monoclonal protein identified. 2. Anemia, likely secondary to inflammation, stable. 3. Sepsis, pneumonia and osteomyelitis. Management per attending and infectious disease, currently on multiple antibiotics. Blood cultures from 03/18 are growing gram-negative bacteria, sensitivity pending. 4. Adenopathy noted on CT scan. Repeat CT chest showed prominent lymph nodes in each axilla which are unchanged from previous scan. There continues to be extensive lymph nodes throughout the middle mediastinum and right peritracheal region, unchanged from previous exam. Patient with known sepsis and pneumonia with trach in place, so still questionable whether this adenopathy is inflammatory in nature. As pneumonia improves we can reevaluate to determine if any further workup is necessary. Recommend repeat CT chest once pneumonia has improved. 5. It appears patient is awaiting discharge to [facility]. He is cleared from my oncology/hematology standpoint to be transferred.
[2018-03-28] MEDS: Senna/Docusate Sodium 8.6/50 MG Tablet G-TUBE SCH (11:28)
[2018-03-28] MEDS: levETIRAcetam 500 MG Tablet G-TUBE SCH ×2 (11:28→12:24)
[2018-03-28] MEDS: Ascorbic Acid 500 MG Tablet G-TUBE SCH (11:29)
[2018-03-28] MEDS: Carboxymethylcellulose 0.5% Opth Drops 15 ML Bottle EACH EYE SCH (11:29)
[2018-03-28] MEDS ORDERED: Pharmacy Ordered Lab Info OTHER ONE (12:45)
--- NOTE | 2018-03-28 13:11 | P.PN ---
Subjective Interval history: Alert and stable on T bar FIo2 28 %. Will go to [facility] today Physical Exam Vital signs: Vital Signs 03/27/18 16:00 03/27/18 16:48 03/27/18 20:00 Temperature 98.7 F 98.7 F Pulse Rate 105 H 106 H 112 H Respiratory Rate 18 16 18 Blood Pressure 131/83 153/89 H Pulse Oximetry 96 100 03/28/18 00:00 03/28/18 00:40 03/28/18 04:00 Temperature 97.6 F 99.6 F Pulse Rate 106 H 88 106 H Respiratory Rate 20 22 20 Blood Pressure 138/81 121/78 Pulse Oximetry 99 93 L 100 03/28/18 08:52 Temperature Pulse Rate 98 H Respiratory Rate 18 Blood Pressure Pulse Oximetry 99 Intake & Output 03/27/18 03/28/18 03/28/18 18:59 06:59 18:59 Intake Total 810 / 810 110 / 110 Output Total 1200 / 1200 1000 / 1000 Balance -390 / -390 -890 / -890 Intake: IV 810 / 810 110 / 110 Avycaz Inj 2.5 GM In NS Inj 50 110 / 110 110 / 110 ML @ 25 mls/hr IV.SIG Q8H KRISTIE Rx#:[id number] Diflucan 400 mg Premix Bag 200 200 / 200 ML @ 100 mls/hr IV.SIG Q24H KRISTIE Rx#:[id number] Levaquin 750 mg Premix Inj 150 150 / 150 ML @ 100 mls/hr IV.SIG Q24H KRISTIE Rx#:[id number] Mycamine Inj 150 MG In NS Inj 100 / 100 100 ML @ 100 mls/hr IV.SIG Q24H KRISTIE Rx#:[id number] Vancomycin Inj 1,000 MG In NS 250 / 250 Inj 250 ML @ 250 mls/hr IV.SIG Q24H KRISTIE Rx#:[id number] Oral 0 / 0 Output: Urine 1200 / 1200 1000 / 1000 Other: Date of Last Bowel Movement 03/27/18 # Bowel Movements 0 Narrative: GENERAL: This is a thin mid aged AA male, in no apparent distress. Responds to commands SKIN: Warm and dry. Bilateral groin candidiasis HEENT: Normocephalic. Nose without bleeding. NECK: Tracheostomy in place, minimal thin secretions CARDIOVASCULAR: Regular rate and rhythm without murmurs, gallops, or rubs. RESPIRATORY: decreased breath sounds, no rales, No accessory muscle use GASTROINTESTINAL: Abdomen soft, non-tender. Bowel Sounds normoactive . PEG in place. - flexion contractures left sided extremities NEUROLOGICAL: Awake and alert. patient services manager with right hand,. left sided weakness - Urinary Catheter Management Indwelling Urethral Catheter Cath placed during this visit: yes Reason for continuing: Acute urinary retention Insertion date: 03/05/18 Insertion time: 08:00 Results - Labs CBC & Chem 7: 03/28/18 06:02 03/28/18 06:02 Laboratory Results - last 24 hr 03/27/18 03/28/18 03/28/18 23:57 06:02 06:02 WBC 6.5 RBC 2.83 L Hgb 8.5 L Hct 25.6 L MCV 90.5 MCH 29.9 MCHC 33.0 RDW 16.1 Plt Count 231 MPV 8.3 Sodium 147 H Potassium 3.9 Chloride 112 H Carbon Dioxide 24.7 Anion Gap 10 BUN 36 H Creatinine 1.47 H Estimated GFR 62 L POC Glucose 117 H Random Glucose 135 H Calcium 8.9 03/28/18 03/28/18 08:30 12:34 WBC RBC Hgb Hct MCV MCH MCHC RDW Plt Count MPV Sodium Potassium Chloride Carbon Dioxide Anion Gap BUN Creatinine Estimated GFR POC Glucose 168 H 150 H Random Glucose Calcium Microbiology 03/23/18 16:47 Blood - Peripheral Aerobic Blood Culture - Final No growth in 5 days 03/23/18 16:47 Blood - Peripheral Anaerobic Blood Culture - Final No growth in 5 days 03/23/18 16:40 Blood - Peripheral Aerobic Blood Culture - Final No growth in 5 days 03/23/18 16:40 Blood - Peripheral Anaerobic Blood Culture - Final No growth in 5 days 03/06/18 15:00 Bronchial Washings - Left Lower Lobe Fungal Smear - Final No fungal elements seen 03/06/18 15:00 Bronchial Washings - Left Lower Lobe Fungal Culture - Preliminary No growth in 3 weeks 03/06/18 15:00 Bronchial Washings - Left Lower Lobe Acid Fast Bacilli Smear - Final No acid fast bacilli seen 03/06/18 15:00 Bronchial Washings - Left Lower Lobe Mycobacterial Culture - Preliminary No growth in 3 weeks Assessment and Plan - Assessment (1) Gram negative sepsis Code(s): A41.50 - Gram-negative sepsis, unspecified Status: Acute (2) Tracheostomy in place Code(s): Z93.0 - Tracheostomy status Status: Acute (3) End stage renal disease Code(s): N18.6 - End stage renal disease Status: Acute (4) GI bleed Code(s): K92.2 - Gastrointestinal hemorrhage, unspecified Status: Acute (5) Anemia Code(s): D64.9 - Anemia, unspecified Status: Acute (6) Osteomyelitis Code(s): M86.9 - Osteomyelitis, unspecified Status: Acute (7) Diabetes Code(s): E11.9 - Type 2 diabetes mellitus without complications Status: Acute (8) Anemia of chronic disorder Code(s): D63.8 - Anemia in other chronic diseases classified elsewhere Status : Resolved (9) Acute on chronic anemia Code(s): D64.9 - Anemia, unspecified Status: Acute (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 Code(s): I72.1 - Aneurysm of artery of upper extremity Status: Acute (11) Osteomyelitis of ankle and foot Code(s): M86.9 - Osteomyelitis, unspecified Status: Acute (12) Acute kidney injury Code(s): N17.9 - Acute kidney failure, unspecified Status: Acute (13) Hypernatremia Code(s): E87.0 - Hyperosmolality and hypernatremia Status: Acute (14) Fungemia Code(s): B49 - Unspecified mycosis Status: Acute (15) Nonproliferative diabetic retinopathy of both eyes Code(s): E11.3293 - Type 2 diabetes mellitus with mild nonproliferative diabetic retinopathy without macular edema, bilateral Status: Acute (16) Gastrostomy tube in place Code(s): Z93.1 - Gastrostomy status Status: Acute (17) Pleural effusion Code(s): J90 - Pleural effusion, not elsewhere classified Status: Acute - Plan 1. Cont T bar at 28 % FIo2 2. Trach lavage suction PRN 3. Cont Antibiotics per ID 4. Cont Duonebs qid. 5. Use EZ PAP with Nebs. 6. Transfer to [facility]
[2018-03-28 14:06] VITALS: BP 132/66; RESP 18; TEMP 99.1
[2018-03-28] MEDS: Vancomycin Inj 1,000 MG in Sodium Chlor 0.9% Inj 250 ML IV.SIG SCH (14:43)
[2018-03-28 15:41] VITALS: PULSE 106
[2018-03-28] MEDS: Micafungin Inj 150 MG in Sodium Chlor 0.9% Inj 100 ML IV.SIG SCH (15:42)
== END 2018-03-28 16:46 ==
LOC: NEPC 01:44 → NEDA 06:58 → N05 14:33 → HIMC 03-03 18:25 → N04 03-24 17:39
PROVIDERS: ADMIT Internal Medicine; ATTEND Internal Medicine